=== PATIENT | female | born 1970 | race Caucasian/White ===

== ENCOUNTER 2019-02-26 17:07 | Emergency (ER) | payer SELFPAY ==
[2019-02-26 20:18] LABS: Absolute Lymphocytes (CBC) 1.2 K/uL (0.7-4.9); Absolute Monocytes 0.3 K/uL (0.1-1.3); Absolute Neutrophil 2.4 K/uL (1.8-8.0); Basophils % 0.2 % (0-1.3); Eosinophils % 0.5 % (0-4.4); Hematocrit 36.9 % (36.0-45.0); Lymphocytes % 31.1 % (15.3-44.8); Monocytes % 8.6 % (3.3-12.3); RBC Red Blood Cell Count 4.36 M/uL (3.86-4.86)
--- NOTE | 2019-02-26 20:24 | RAD REPORT ---
EXAM DESCRIPTION: CT - Head Brain Wo Cont - 02/26/2019 8:13 pm CLINICAL HISTORY: CONFUSED Headache, drowsiness COMPARISON: No comparisons TECHNIQUE: All CT scans are performed using dose optimization technique as appropriate and may inclu de automated exposure control or mA/KV adjustment according to patient size. FINDINGS: No intracranial hemorrhage, hydrocephalus or extra-axial fluid collection.No areas of brai n edema or evidence of midline shift. The paranasal sinuses and mastoids are clear. The calvarium is intact. IMPRESSION: No acute intracranial abnormality.
[2019-02-26 20:39] LABS: Protime INR 1.23
[2019-02-26 20:47] LABS: ALT/SGPT 47 U/L (12-78); AST/SGOT 73 U/L (15-37); Albumin 3.1 g/dL (3.4-5.0); Alkaline Phosphatase 105 U/L (45-117); BUN Blood Urea Nitrogen 15 mg/dL (7-18); Bicarbonate 22 mmol/L (21-32); Bilirubin Total 2.5 mg/dL (0.2-1.0); Glucose Level 81 mg/dL (74-106); Potassium 3.5 mmol/L (3.5-5.1); Protein, Total 6.6 g/dL (6.4-8.2); Sodium Level 142 mmol/L (136-145)
[2019-02-26 20:47] LABS: Barbiturates NEGATIVE (NEGATIVE); Benzodiazepines NEGATIVE (NEGATIVE); Cocaine NEGATIVE (NEGATIVE); METHAMPHETAM POSITIVE (NEGATIVE); Methadone NEGATIVE (NEGATIVE); Opiates NEGATIVE (NEGATIVE); Phencyclidine NEGATIVE (NEGATIVE); THC Cannibis NEGATIVE (NEGATIVE)
[2019-02-26 20:54] LABS: MPV 10.1 fL (7.6-11.3)
[2019-02-26] MEDS ORDERED: LACTULOSE 20 GM/30 ML UCUP ONE (21:03)
--- NOTE | 2019-02-26 21:35 | EDPHYS ---
Physician Documentation [facility] Name: Lorena Hansen Age: 48 yrs Sex: Female : 1970 Arrival Date: 02/26/2019 Time: 17:11 Bed 26 Private MD: ED Physician Reilly Arellano HPI: 02/27 06:23 This 48 yrs old Female presents to ER via Ambulatory with complaints of tw4 Lethargic. 06:23 The patient presents with decreased mental status, decreased responsiveness. Onset: The tw4 symptoms/episode began/occurred today. Possible causes: low blood sugar. Associated signs and symptoms: The patient has no apparent associated signs or symptoms. Patient's baseline: Neuro: alert and fully oriented. The patient has not experienced similar symptoms in the past. Historical: - Allergies: 02/26 17:20 No Known Allergies; sv - Home Meds: 17:20 Lactulose Oral [Active]; sv - PMHx: 17:20 Cirrhosis; sv - PSHx: 17:20 Tubal ligation; sv - Immunization history:: Adult Immunizations up to date. - Social history:: Smoking status: unknown. - Ebola Screening: : No symptoms or risks identified at this time. ROS: 02/27 06:23 Constitutional: Negative for fever, chills, and weight loss, Eyes: Negative for injury, tw4 pain, redness, and discharge, Cardiovascular: Negative for chest pain, palpitations, and edema, Respiratory: Negative for shortness of breath, cough, wheezing, and pleuritic chest pain, Abdomen/GI: Negative for abdominal pain, nausea, vomiting, diarrhea, and constipation, MS/Extremity: Negative for injury and deformity, Skin: Negative for injury, rash, and discoloration. Neuro: Positive for altered mental status, Negative for dizziness, gait disturbance, headache, hearing loss. Exam: 06:23 Constitutional: This is a well developed, well nourished patient who is awake, alert, tw4 and in no acute distress. Head/Face: Normocephalic, atraumatic. Eyes: Pupils equal round and reactive to light, extra-ocular motions intact. Lids and lashes normal. Conjunctiva and sclera are non-icteric and not injected. Cornea within normal limits. Periorbital areas with no swelling, redness, or edema. Chest/axilla: Normal chest wall appearance and motion. Nontender with no deformity. No lesions are appreciated. Cardiovascular: Regular rate and rhythm with a normal S1 and S2. No gallops, murmurs, or rubs. Normal PMI, no JVD. No pulse deficits. Respiratory: Lungs have equal breath sounds bilaterally, clear to auscultation and percussion. No rales, rhonchi or wheezes noted. No increased work of breathing, no retractions or nasal flaring. Abdomen/GI: Soft, non-tender, with normal bowel sounds. No distension or tympany. No guarding or rebound. No evidence of tenderness throughout. Back: No spinal tenderness. No costovertebral tenderness. Full range of motion. MS/ Extremity: Pulses equal, no cyanosis. Neurovascular intact. Full, normal range of motion. Neuro: Awake and alert, GCS 15, oriented to person, place, time, and situation. Cranial nerves II-XII grossly intact. Motor strength 5/5 in all extremities. Sensory grossly intact. Cerebellar exam normal. Normal gait. Vital Signs: 02/26 17:19 BP 156 / 89; Pulse 103; Resp 18; Temp 99.1; Pulse Ox 100% ; Weight 63.5 kg; Height 5 sv ft. 5 in. (165.10 cm); Pain 0/10; 18:00 BP 148 / 76; Pulse 96; Resp 16; Pulse Ox 98% ; rv 19:00 BP 136 / 88; Pulse 89; Resp 18; Pulse Ox 98% ; rv 20:00 BP 143 / 84; Pulse 99; Resp 17; Pulse Ox 99% ; rv 21:00 BP 131 / 78; Pulse 85; Resp 17; Pulse Ox 99% ; rv 17:19 Body Mass Index 23.30 (63.50 kg, 165.10 cm) sv MDM: 19:09 Patient medically screened. tw4 02/27 06:23 Differential Diagnosis: CVA, electrolyte abnormality. Data reviewed: vital signs, tw4 nurses notes. Counseling: I had a detailed discussion with the patient and/or guardian regarding: the historical points, exam findings, and any diagnostic results supporting the discharge/admit diagnosis. Special discussion: I discussed with the patient/guardian in detail that at this point there is no indication for admission to the hospital. It is understood, however, that if the symptoms persist or worsen the patient needs to return immediately for re-evaluation. 02/26 18:31 Order name: Glucose, Ancillary Testing [facility] 02/26 19:31 Order name: Acetaminophen [facility] 02/26 19:31 Order name: Basic Metabolic Panel; Complete Time: 22:01 [facility] 02/26 22:01 Interpretation: Normal except: CL 113; GFR 84. [facility] 02/26 19:31 Order name: CBC with Diff; Complete Time: 22:01 [facility] 02/26 22:01 Interpretation: Normal except: WBC 4.0; RDW 17.9. [facility] 02/26 19:31 Order name: ETOH Level; Complete Time: 22:03 [facility] 02/26 19:31 Order name: Hepatic Function; Complete Time: 22:01 [facility] 02/26 22:01 Interpretation: Normal except: AST 73; BILIT 2.5; BILID 1.0; ALB 3.1; A/G 0.9. [facility] 02/26 19:31 Order name: PT-INR; Complete Time: 22:01 [facility] 02/26 22:01 Interpretation: Normal except: PT 14.4. [facility] 02/26 19:31 Order name: Ptt, Activated; Complete Time: 22:02 [facility] 02/26 22:02 Interpretation: Normal except: PTT 23.2. [facility] 02/26 19:31 Order name: Salicylate; Complete Time: 22:02 [facility] 02/26 22:02 Interpretation: Within normal limits: MARK < 1.7. [facility] 02/26 19:31 Order name: Urine Drug Screen; Complete Time: 22:02 [facility] 02/26 22:02 Interpretation: Normal except: METHAMPHETAMINE POSITIVE. [facility] 02/26 19:32 Order name: CT Head Brain wo Cont; Complete Time: 22:03 [facility] 02/26 19:38 Order name: AMMONIA; Complete Time: 20:45 [facility] 02/26 21:50 Order name: CBC Smear Scan [facility] 02/26 19:31 Order name: EKG; Complete Time: 19:33 [facility] 02/26 19:31 Order name: EKG - Nurse/Tech; Complete Time: 20:46 [facility] 02/26 19:31 Order name: IV Saline Lock; Complete Time: 20:46 [facility] 02/26 19:31 Order name: Labs collected and sent; Complete Time: 20:46 [facility] 02/26 19:31 Order name: Urine Dipstick-Ancillary (obtain specimen); Complete Time: 20:47 tw4 Administered Medications: 02/26 21:00 Drug: Lactulose 30 grams Volume: 45 ml; Route: PO; rv Disposition: 02/26/19 21:35 Discharged to Home. Impression: HYPERAMMONEMIA, Thrombocytopenia, unspecified. - Condition is Stable. - Discharge Instructions: Thrombocytopenia, Primary Biliary Cirrhosis. - Prescriptions for Lactulose 10 gram/15 mL Oral Solution - take 30 milliliter by ORAL route once daily; 300 milliliter. - Medication Reconciliation Form, Thank You Letter, Antibiotic Education, Prescription Opioid Use form. - Follow up: Private Physician; When: Upon discharge from the Emergency Department; Reason: If symptoms return, Recheck today's complaints, Continuance of care. Follow up: Seven Emmanuel MD; When: Upon discharge from the Emergency Department; Reason: If symptoms return, Recheck today's complaints, Continuance of care. - Problem is new. - Symptoms have improved. Signatures: Dispatcher [employer] EDCarli Valentin RN RN Reilly Arellano MD MD 4 Meng Petit RN RN rv Corrections: (The following items were deleted from the chart) 21:36 21:35 02/26/2019 21:35 Discharged to Home. Impression: HYPERAMMONEMIA. Condition is tw4 Stable. Forms are Medication Reconciliation Form, Thank You Letter, Antibiotic Education, Prescription Opioid Use. Follow up: Private Physician; When: Upon discharge from the Emergency Department; Reason: If symptoms return, Recheck today's complaints, Continuance of care. Problem is new. Symptoms have improved. [facility] 22:04 21:36 02/26/2019 21:35 Discharged to Home. Impression: HYPERAMMONEMIA. Condition is tw4 Stable. Discharge Instructions: Primary Biliary Cirrhosis. Prescriptions for Lactulose 10 gram/15 mL Oral Solution - take 30 milliliter by ORAL route once daily; 300 milliliter. and Forms are Medication Reconciliation Form, Thank You Letter, Antibiotic Education, Prescription Opioid Use. Follow up: Private Physician; When: Upon discharge from the Emergency Department; Reason: If symptoms return, Recheck today's complaints, Continuance of care. Follow up: Seven Emmanuel; When: Upon discharge from the Emergency Department; Reason: If symptoms return, Recheck today's complaints, Continuance of care. Problem is new. Symptoms have improved. tw4 22:14 22:04 02/26/2019 21:35 Discharged to Home. Impression: HYPERAMMONEMIA; rv Thrombocytopenia, unspecified. Condition is Stable. Discharge Instructions: Primary Biliary Cirrhosis. Prescriptions for Lactulose 10 gram/15 mL Oral Solution - take 30 milliliter by ORAL route once daily; 300 milliliter. and Forms are Medication Reconciliation Form, Thank You Letter, Antibiotic Education, Prescription Opioid Use. Follow up: Private Physician; When: Upon discharge from the Emergency Department; Reason: If symptoms return, Recheck today's complaints, Continuance of care. Follow up: Seven Emmanuel; When: Upon discharge from the Emergency Department; Reason: If symptoms return, Recheck today's complaints, Continuance of care. Problem is new. Symptoms have improved. tw4
--- NOTE | 2019-02-26 21:35 | ER ---
Nurse's Notes [facility] Name: Lorena Hansen Age: 48 yrs Sex: Female : 1970 Arrival Date: 02/26/2019 Time: 17:11 Bed 26 Private MD: Diagnosis: HYPERAMMONEMIA;Thrombocytopenia, unspecified Presentation: 02/26 17:17 Presenting complaint: Patient states: confusion started 2 days ago, has hx of liver sv problems. Denies any alcohol intake. Reports she has been out of her lactulose. Transition of care: patient was not received from another setting of care. Onset of symptoms was February 24, 2019. Initial Sepsis Screen: Does the patient meet any 2 criteria? No. Patient's initial sepsis screen is negative. Does the patient have a suspected source of infection? No. Patient's initial sepsis screen is negative. Care prior to arrival: None. 17:17 Method Of Arrival: Ambulatory sv 17:17 Acuity: SUDHA 2 sv 20:33 Risk Assessment: Do you want to hurt yourself or someone else? Patient reports no rv desire to harm self or others. Triage Assessment: 17:17 General: Appears in no apparent distress. comfortable, well developed, Behavior is sv calm, cooperative, appropriate for age. Pain: Denies pain. Neuro: Level of Consciousness is awake, alert, obeys commands, Oriented to person, place, time, situation, Moves all extremities. Full function Gait is steady, Speech is normal. Respiratory: Airway is patent Respiratory effort is even, unlabored, Respiratory pattern is regular, symmetrical. Derm: Skin is normal. Historical: - Allergies: 17:20 No Known Allergies; sv - Home Meds: 17:20 Lactulose Oral [Active]; sv - PMHx: 17:20 Cirrhosis; sv - PSHx: 17:20 Tubal ligation; sv - Immunization history:: Adult Immunizations up to date. - Social history:: Smoking status: unknown. - Ebola Screening: : No symptoms or risks identified at this time. Screenin:32 Abuse screen: Denies threats or abuse. Denies injuries from another. Nutritional rv screening: No deficits noted. Tuberculosis screening: No symptoms or risk factors identified. Fall Risk None identified. Assessment: 18:35 General: Appears in no apparent distress. comfortable, Behavior is calm, cooperative. rv Pain: Denies pain. Neuro: Level of Consciousness is awake, alert, obeys commands, Oriented to person, place, time, Reports disorientation and lethargy last night.. Cardiovascular: Capillary refill < 3 seconds. Respiratory: Airway is patent. GI: No signs and/or symptoms were reported involving the gastrointestinal system. : No signs and/or symptoms were reported regarding the genitourinary system. EENT: No signs and/or symptoms were reported regarding the EENT system. Derm: Skin is intact. Musculoskeletal: No signs and/or symptoms reported regarding the musculoskeletal system. 21:52 Reassessment: CRITICAL LAB RESULT: Platelet 50,000. Notified Provide and Primary Nurse. ca1 22:10 Reassessment: CRITICAL LAB RESULT EXPLAINED TO PATIENT AND INSTRUCTED TO FF UP WITH HER rv DOCTOR. DISCHARGED WITHOUT SIGNS OF ACTIVE BLEEDING. Vital Signs: 17:19 BP 156 / 89; Pulse 103; Resp 18; Temp 99.1; Pulse Ox 100% ; Weight 63.5 kg; Height 5 sv ft. 5 in. (165.10 cm); Pain 0/10; 18:00 BP 148 / 76; Pulse 96; Resp 16; Pulse Ox 98% ; rv 19:00 BP 136 / 88; Pulse 89; Resp 18; Pulse Ox 98% ; rv 20:00 BP 143 / 84; Pulse 99; Resp 17; Pulse Ox 99% ; rv 21:00 BP 131 / 78; Pulse 85; Resp 17; Pulse Ox 99% ; rv 17:19 Body Mass Index 23.30 (63.50 kg, 165.10 cm) sv ED Course: 17:11 Patient arrived in ED. mr 17:19 Triage completed. sv 17:20 Arm band placed on. sv 18:00 Meng Petit, RN is Primary Nurse. rv 18:06 Patient's name was called from ER lobby. No response. bb 19:09 Reilly Arellano MD is Attending Physician. tw4 20:05 Inserted saline lock: 22 gauge in right antecubital area, using aseptic technique. rv Blood collected. 20:13 CT Head Brain wo Cont In Process Unspecified. EDMS 20:32 Patient has correct armband on for positive identification. Bed in low position. Call rv light in reach. Side rails up X 1. Adult w/ patient. Pulse ox on. NIBP on. 21:36 Seven Emmanuel MD is Referral Physician. tw4 22:13 No provider procedures requiring assistance completed. IV discontinued, intact, rv bleeding controlled, No redness/swelling at site. Pressure dressing applied. Administered Medications: 21:00 Drug: Lactulose 30 grams Volume: 45 ml; Route: PO; rv Outcome: 21:35 Discharge ordered by . tw4 22:13 Discharged to home ambulatory. rv 22:13 Condition: good 22:13 Discharge instructions given to patient, family, Instructed on discharge instructions, follow up and referral plans. medication usage, Demonstrated understanding of instructions, follow-up care, medications, Prescriptions given X 1. 22:14 Patient left the ED. rv Signatures: Dispatcher [employer] EDMS Carli Kay RN RN sv Diane Matos mr Vivi Hedrick RN Reilly Linares MD MD tw4 Meng Petit RN RN rv Black, Lisa RN RN ca1 Corrections: (The following items were deleted from the chart) 17:20 17:17 Presenting complaint: Patient states: confusion started 2 days ago, has hx of sv liver problems. Denies any alcohol intake. sv 17:21 17:17 Acuity: SUDHA 3 sv sv
[2019-02-26 21:56] LABS: Blood Morphology Comment NOT SEEN (NOT SEEN); Platelet Estimate DECR
--- NOTE | 2019-02-27 07:56 | EKG ---
Test Date: 2019-02-26 Test Time: 20:52:22 Storage Specialist: PADMA MEASUREMENT RESULTS: Intervals: Rate: 76 NM: 98 QRSD: 76 QT: 414 QTc: 465 Peculiar: P: 68 NM: 98 QRS: 71 T: 80 INTERPRETIVE STATEMENTS: Sinus rhythm with short NM Prolonged QT Abnormal ECG No previous ECG available for comparison Electronically Signed On 02-27-19 07:55:05 CDT by Hood Campbell
== END 2019-02-26 22:14 | disposition home or self-care (01) ==
LOC: ER 17:07
DX: E72.20 Disorder of urea cycle metabolism, unspecified (principal); D69.6 Thrombocytopenia, unspecified
CPT/HCPCS: 36415; 70450; 80048; 80076; 80307; 80320; 80329; 82140; 82962; 85025; 85610; 85730; 93005; 99284

== ENCOUNTER 2019-04-29 16:01 | Emergency (ER) | payer SELFPAY ==
--- OUTSIDE RECORDS SUMMARY | 2019-04-29 16:11 | XMS REPORT ---
:1970 [facility] [address] [place] [address] Dr. Rodrigez [address] [place] [id number] Care Team Providers Name Role Phone Unavailable Unavailable Unavailable Problems This patient has no known problems. Allergies, Adverse Reactions, Alerts This patient has no known allergies or adverse reactions. Medications This patient has no known medications.
[2019-04-29] MEDS ORDERED: predniSONE 20 MG TAB ONE (16:48)
[2019-04-29] MEDS ORDERED: CETIRIZINE HCL 5 MG TABLET ONE (16:48)
[2019-04-29] MEDS ORDERED: FAMOTIDINE 20 MG TAB ONE (16:49)
--- NOTE | 2019-04-29 17:25 | ER ---
Nurse's Notes [facility] Name: Lorena Hansen Age: 49 yrs Sex: Female : 1970 Arrival Date: 04/29/2019 Time: 16:01 Bed 13 Private MD: Diagnosis: Acute laryngopharyngitis;Allergy, unspecified Presentation: 04/29 16:06 Presenting complaint: Patient states: I have had a sore throat and felt hot the last la1 couple days. Transition of care: patient was not received from another setting of care. Onset of symptoms was April 29, 2019. Risk Assessment: Do you want to hurt yourself or someone else? Patient reports no desire to harm self or others. Risk Assessment: Do you want to hurt yourself or someone else?. Initial Sepsis Screen: Does the patient meet any 2 criteria? No. Patient's initial sepsis screen is negative. Does the patient have a suspected source of infection? No. Patient's initial sepsis screen is negative. Care prior to arrival: None. 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 - Social history:: Smoking status: Patient uses tobacco products, smokes one-half pack cigarettes per day. - Ebola Screening: : No symptoms or risks identified at this time. Screenin:10 Abuse screen: Denies threats or abuse. Nutritional screening: No deficits noted. rb1 Tuberculosis screening: No symptoms or risk factors identified. Fall Risk None identified. Assessment: 16:10 General: Appears uncomfortable, Behavior is calm, cooperative, Reports fever for. rb1 General: Pt. was at the voodoo while they were mowing the lawn a couple days ago, she isn't sure if that has anything to do with it. She also had a clip applied to her throat for bleeding two years ago, she is afraid it could have something to do with that as well.. Pain: Complains of pain in throat Pain currently is 8 out of 10 on a pain scale. Pain began couple days. Neuro: Level of Consciousness is awake, alert, obeys commands, Oriented to person, place, time, situation. Cardiovascular: Capillary refill < 3 seconds is brisk in bilateral fingers. Respiratory: Airway is patent Respiratory effort is even, unlabored, Respiratory pattern is regular, symmetrical, Breath sounds are clear bilaterally. GI: No signs and/or symptoms were reported involving the gastrointestinal system. : No signs and/or symptoms were reported regarding the genitourinary system. EENT: Throat is reddened Reports pain when swallowing. Derm: Rash noted that is red, raised, on Face. Musculoskeletal: Range of motion: intact in all extremities. 17:05 Reassessment: Patient appears in no apparent distress at this time. No changes from rb1 previously documented assessment. Vital Signs: 16:07 BP 141 / 79; Pulse 98; Resp 16; Temp 97.8; Pulse Ox 98% on R/A; Weight 68.04 kg; Height la1 5 ft. 4 in. (162.56 cm); 17:07 BP 154 / 96; Pulse 82; Resp 19; Pulse Ox 100% on R/A; Pain 5/10; rb1 16:07 Body Mass Index 25.75 (68.04 kg, 162.56 cm) la1 17:07 Pt. was up walking around rb1 ED Course: 16:01 Patient arrived in ED. as 16:02 Kala Pizarro FNP-C [facility]. snw 16:02 Geraldo Yates MD is Attending Physician. snw 16:06 Triage completed. la1 16:07 Arm band placed on right wrist. la1 16:10 Patient has correct armband on for positive identification. Bed in low position. Call rb1 light in reach. Side rails up X 1. Pulse ox on. NIBP on. 16:13 Kirsten Adame, RN is Primary Nurse. rb1 17:43 No provider procedures requiring assistance completed. Patient did not have IV access rb1 during this emergency room visit. Administered Medications: 16:35 Drug: Pepcid 20 mg Route: PO; rb1 17:05 Follow up: Response: No adverse reaction rb1 16:35 Drug: predniSONE 40 mg Route: PO; rb1 17:05 Follow up: Response: No adverse reaction rb1 16:35 Drug: ZyrTEC - Cetirizine 10 mg Route: PO; rb1 17:05 Follow up: Response: No adverse reaction rb1 Outcome: 17:23 Discharge ordered by MD. cash 17:43 Discharged to home ambulatory, with significant other. rb1 17:43 Condition: stable 17:43 Discharge instructions given to patient, Instructed on discharge instructions, follow up and referral plans. medication usage, Demonstrated understanding of instructions, follow-up care, medications, Prescriptions given X 3. 17:43 Patient left the ED. rb1 Signatures: Kala Pizarro, LOAN PROCESSING SUPERVISOR-C LOAN PROCESSING SUPERVISOR-Csnw Sabrina Bruno Lee RN RN la1 Kirsten Adame RN RN rb1 Corrections: (The following items were deleted from the chart) 16:07 16:06 Acuity: SUDHA 4 la1 la1 17:29 16:10 Respiratory: Airway is patent Respiratory effort is even, unlabored, Respiratory rb1 pattern is regular, symmetrical, rb1 17:30 17:07 BP 154 / 96; Pulse 82bpm; Resp 19bpm; Pulse Ox 100% RA; Pain 5/10; rb1 rb1
--- NOTE | 2019-04-29 17:25 | EDPHYS ---
Physician Documentation [facility] Name: Lorena Hansen Age: 49 yrs Sex: Female : 1970 Arrival Date: 04/29/2019 Time: 16:01 Bed 13 Private MD: ED Physician Geraldo Yates HPI: 04/29 16:34 This 49 yrs old Female presents to ER via Ambulatory with complaints of Sore snw Throat. 16:34 The patient presents with sore throat. The patient describes throat pain as raw, snw scratchy. Onset: The symptoms/episode began/occurred suddenly, yesterday. Severity of symptoms: At their worst the symptoms were moderate. Modifying factors: the symptoms are aggravated by swallowing. Associated signs and symptoms: Pertinent positives: swelling, rash. The patient has not experienced similar symptoms in the past. The patient has not recently seen a physician. neighbor was mowing and exposed to poison nohelia. 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 - Social history:: Smoking status: Patient uses tobacco products, smokes one-half pack cigarettes per day. - Ebola Screening: : No symptoms or risks identified at this time. ROS: 16:26 Cardiovascular: Negative for chest pain, palpitations, and edema, Respiratory: Negative snw for shortness of breath, cough, wheezing, and pleuritic chest pain, Abdomen/GI: Negative for abdominal pain, nausea, vomiting, diarrhea, and constipation, Back: Negative for injury and pain, : Negative for injury, bleeding, discharge, and swelling, MS/Extremity: Negative for injury and deformity, Skin: Negative for injury and discoloration, pt states she looks like she has acne and has never had that before Neuro: Negative for headache, weakness, numbness, tingling, and seizure. 16:26 Constitutional: Positive for fatigue, malaise. 16:26 Eyes: Positive for swelling. 16:26 ENT: Positive for hoarseness, sinus congestion. 16:26 Neck: Positive for swelling, swollen nodes. Exam: 16:25 Constitutional: This is a well developed, well nourished patient who is awake, alert, snw and in no acute distress. Eyes: Pupils equal round and reactive to light, extra-ocular motions intact. Lids and lashes normal. Conjunctiva and sclera are non-icteric and not injected. Cornea within normal limits. Periorbital areas with no swelling, redness, or edema. Neck: Trachea midline, no thyromegaly or masses palpated, and no cervical lymphadenopathy. Supple, full range of motion without nuchal rigidity, or vertebral point tenderness. No Meningismus. Chest/axilla: Normal chest wall appearance and motion. Nontender with no deformity. No lesions are appreciated. Cardiovascular: Regular rate and rhythm with a normal S1 and S2. No gallops, murmurs, or rubs. Normal PMI, no JVD. No pulse deficits. Respiratory: Lungs have equal breath sounds bilaterally, clear to auscultation and percussion. No rales, rhonchi or wheezes noted. No increased work of breathing, no retractions or nasal flaring. Abdomen/GI: Soft, non-tender, with normal bowel sounds. No distension or tympany. No guarding or rebound. No evidence of tenderness throughout. Back: No spinal tenderness. No costovertebral tenderness. Full range of motion. Skin: Warm, dry with normal turgor. Normal color with no rashes, no lesions, and no evidence of cellulitis. MS/ Extremity: Pulses equal, no cyanosis. Neurovascular intact. Full, normal range of motion. Neuro: Awake and alert, GCS 15, oriented to person, place, time, and situation. Cranial nerves II-XII grossly intact. Motor strength 5/5 in all extremities. Sensory grossly intact. Cerebellar exam normal. Normal gait. Psych: Awake, alert, with orientation to person, place and time. Behavior, mood, and affect are within normal limits. 16:25 Head/face: Noted is rash, of the right cheek and left cheek, swelling. 16:25 ENT: External ear(s): are unremarkable, Ear canal(s): are normal, TM's: are normal, Nose: is normal, Mouth: Oral mucosa: normal, Posterior pharynx: swelling, is not appreciated, erythema, that is mild, Dental exam: normal, Voice: is hoarse. Vital Signs: 16:07 BP 141 / 79; Pulse 98; Resp 16; Temp 97.8; Pulse Ox 98% on R/A; Weight 68.04 kg; Height la1 5 ft. 4 in. (162.56 cm); 17:07 BP 154 / 96; Pulse 82; Resp 19; Pulse Ox 100% on R/A; Pain 5/10; rb1 16:07 Body Mass Index 25.75 (68.04 kg, 162.56 cm) la1 17:07 Pt. was up walking around rb1 MDM: 16:20 Patient medically screened. snw 17:24 Data reviewed: vital signs, nurses notes. Data interpreted: Pulse oximetry: on room air snw is 98 %. Interpretation: normal. Counseling: I had a detailed discussion with the patient and/or guardian regarding: the historical points, exam findings, and any diagnostic results supporting the discharge/admit diagnosis, the presence of at least one elevated blood pressure reading (>120/80) during this emergency department visit, lab results, the need for outpatient follow up, to return to the emergency department if symptoms worsen or persist or if there are any questions or concerns that arise at home. Special discussion: I have referred the patient to see his PCP for further evaluation of high blood pressure. Based on the history and exam findings, there is no indication for further emergent testing or inpatient evaluation. 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 I discussed with the patient/guardian the need to see the primary care provider for further evaluation of the symptoms. 04/29 16:06 Order name: Strep la1 04/29 17:26 Order name: Throat Culture EDMS Administered Medications: 16:35 Drug: Pepcid 20 mg Route: PO; rb1 17:05 Follow up: Response: No adverse reaction rb1 16:35 Drug: predniSONE 40 mg Route: PO; rb1 17:05 Follow up: Response: No adverse reaction rb1 16:35 Drug: ZyrTEC - Cetirizine 10 mg Route: PO; rb1 17:05 Follow up: Response: No adverse reaction rb1 Disposition: 17:44 Co-signature as Attending Physician, Geraldo Yates MD. rn Disposition: 04/29/19 17:23 Discharged to Home. Impression: Acute laryngopharyngitis, Allergy, unspecified. - Condition is Stable. - Discharge Instructions: Allergies, Adult, Laryngitis, Pharyngitis. - Prescriptions for Prednisone 20 mg Oral Tablet - take 1 tablet by ORAL route once daily for 3 days; 3 tablet. Zyrtec 10 mg Oral Tablet - take 1 tablet by ORAL route once daily As needed; 20 tablet. Pepcid 20 mg Oral Tablet - take 1 tablet by ORAL route once daily; 20 tablet. - Medication Reconciliation Form, Thank You Letter, Antibiotic Education, Prescription Opioid Use form. - Follow up: Private Physician; When: 2 - 3 days; Reason: Recheck today's complaints, Continuance of care, Re-evaluation by your physician. Follow up: Emergency Department; When: As needed; Reason: Trouble breathing, Worsening of condition. Signatures: Dispatcher [employer] EDMS Kala Pizarro, [facility]-Csnw Geraldo Yates MD MD rn Attema, Lee, RN RN la1 Kirsten Adame RN RN rb1 Corrections: (The following items were deleted from the chart) 17:43 17:23 04/29/2019 17:23 Discharged to Home. Impression: Acute laryngopharyngitis; rb1 Allergy, unspecified. Condition is Stable. Discharge Instructions: Allergies, Adult, Laryngitis, Pharyngitis. Prescriptions for Prednisone 20 mg Oral Tablet - take 1 tablet by ORAL route once daily for 3 days; 3 tablet, Zyrtec 10 mg Oral Tablet - take 1 tablet by ORAL route once daily As needed; 20 tablet, Pepcid 20 mg Oral Tablet - take 1 tablet by ORAL route once daily; 20 tablet. and Forms are Medication Reconciliation Form, Thank You Letter, Antibiotic Education, Prescription Opioid Use. Follow up: Private Physician; When: 2 - 3 days; Reason: Recheck today's complaints, Continuance of care, Re-evaluation by your physician. Follow up: Emergency Department; When: As needed; Reason: Trouble breathing, Worsening of condition. snw
== END 2019-04-29 17:43 | disposition home or self-care (01) ==
LOC: ER 16:01
DX: J06.0 Acute laryngopharyngitis (principal); T78.40XA Allergy, unspecified, initial encounter; F17.210 Nicotine dependence, cigarettes, uncomplicated
CPT/HCPCS: 87070; 87081; 99283; J7512

== ENCOUNTER 2020-06-14 16:02 | Inpatient (IN) | payer SELFPAY ==
--- OUTSIDE RECORDS SUMMARY | 2020-06-14 16:04 | XMS REPORT | Continuity of Care Document ---
:1970 Author Organization [facility] t Address [address] [place] [address] Care Team Providers Name Role Phone Doctor Unassigned, Name Attending Clinician Unavailable Carito Nair Attending Clinician Problems This patient has no known problems. Allergies, Adverse Reactions, Alerts This patient has no known allergies or adverse reactions. Medications This patient has no known medications. Procedures This patient has no known procedures. Encounters Start End Encounter Admission Attending Care Care Encounter Source Date/Time Date/Time Type Type Clinicians Facility Department ID 2019-06-11 2019-06-11 Orders Doctor NARENDRA [id number] 00:00:00 00:00:00 Only UnassignedSTAR [id number] [place] [facility] [id number] 2019-05-11 2019-05-11 Emergency KAMRAN Henry [id number] 10:42:22 12:29:00 Marianne Means [id number] [place] [id number] [place] [id number] Results This patient has no known results.
[2020-06-14] MEDS ORDERED: LORazepam 2 MG/ML VIAL ONE (16:33)
[2020-06-14 16:41] LABS: Absolute Lymphocytes (CBC) 1.6 K/uL (0.7-4.9); Basophils % 0.7 % (0-1.3); Hematocrit 42.3 % (36.0-45.0); Lymphocytes % 33.8 % (15.3-44.8); MPV 10.5 fL (7.6-11.3); RBC Red Blood Cell Count 4.98 M/uL (3.86-4.86)
[2020-06-14 16:51] LABS: Barbiturates NEGATIVE (NEGATIVE); Benzodiazepines NEGATIVE (NEGATIVE); Cocaine NEGATIVE (NEGATIVE); METHAMPHETAM POSITIVE (NEGATIVE); Methadone NEGATIVE (NEGATIVE); Opiates NEGATIVE (NEGATIVE); Phencyclidine NEGATIVE (NEGATIVE); THC Cannibis NEGATIVE (NEGATIVE)
[2020-06-14] MEDS ORDERED: NA CHLORIDE 0.9% 1,000 ML ONE (16:58)
[2020-06-14 17:00] LABS: Urine Blood 2+ (NEG); Urine Glucose NEGATIVE (NEG); Urine Protein NEGATIVE (NEG); Urine pH 8.5 (5.0-7.0)
[2020-06-14 17:23] LABS: Protime INR 1.27
[2020-06-14 17:38] LABS: ALT/SGPT 91 U/L (12-78); Albumin 2.2 g/dL (3.4-5.0); Alkaline Phosphatase 96 U/L (45-117); BUN Blood Urea Nitrogen 11 mg/dL (7-18); Bicarbonate 23 mmol/L (21-32); Bilirubin Total 2.7 mg/dL (0.2-1.0); Glucose Level 71 mg/dL (74-106); Protein, Total 5.8 g/dL (6.4-8.2); Sodium Level 145 mmol/L (136-145)
[2020-06-14 17:39] LABS: AST/SGOT 141 U/L (15-37); Potassium 3.9 mmol/L (3.5-5.1)
[2020-06-14] MEDS ORDERED: LACTULOSE 20 GM/30 ML UCUP ONE (17:45)
[2020-06-14] MEDS ORDERED: ONDANSETRON 4 MG/2 ML VIAL IV PRN (17:52)
[2020-06-14] MEDS ORDERED: ACETAMINOPHEN 500 MG TAB PO PRN (17:52)
[2020-06-14] MEDS ORDERED: LACTULOSE 20 GM/30 ML UCUP PO PRN (18:00)
[2020-06-14] MEDS ORDERED: SODIUM CHLORIDE 0.9% 10ML INJ IV PRN (18:02)
[2020-06-14 18:54] LABS: Blood Morphology Comment NOT SEEN (NOT SEEN); Platelet Estimate DECR; Urine White Blood Cell Casts OK
--- NOTE | 2020-06-14 20:13 | ER ---
Nurse's Notes [facility] Name: Lorena Hansen Age: 50 yrs Sex: Female : 1970 Arrival Date: 06/14/2020 Time: 16:18 Bed 3 Private MD: Diagnosis: Altered mental status, unspecified;Encephalopathy, unspecified-hepatic Presentation: 06/14 16:15 Chief complaint: EMS states: Toned out for unresponsive, hx of colon CA and cirrhosis, hb takes lactulose but had not had any since yesterday. VSS, BGL 98, obtunded, becomes violent and screams when touched. Coronavirus screen: At this time, the client does not indicate any symptoms associated with coronavirus-19. Ebola Screen: No symptoms or risks identified at this time. Initial Sepsis Screen: Does the patient meet any 2 criteria? Altered Mental Status. HR > 90 bpm. Yes Does the patient have a suspected source of infection? No. Patient's initial sepsis screen is negative. Risk Assessment: Do you want to hurt yourself or someone else? Patient reports no desire to harm self or others. Onset of symptoms was June 14, 2020. 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 - Social history:: Patient/guardian denies using alcohol, street drugs, The patient lives with family, Smoking status: unknown. - Family history:: not pertinent. Screenin:23 Abuse screen: Denies threats or abuse. Denies injuries from another. Nutritional hb screening: No deficits noted. Tuberculosis screening: No symptoms or risk factors identified. Fall Risk Total Carr Fall Scale indicates High Risk Score (45 or more points). Fall prevention measures have been instituted. Side Rails Up X 2 Frequent Obs/Assessments Occuring As available patient and family educated on Fall Prevention Program and Strategies. Assessment: 16:17 General: Appears unkempt, Behavior is agitated, combative, Smells of urine. Pain: hb Unable to use pain scale. FLACC scale score is 0 out of 10. Neuro: Level of Consciousness is confused, obtunded. Cardiovascular: Capillary refill < 3 seconds Patient's skin is warm and dry. Rhythm is sinus tachycardia. Respiratory: Airway is patent Respiratory effort is even, unlabored, Respiratory pattern is regular, symmetrical, Breath sounds are clear bilaterally. GI: Abdomen is non-distended, Abd is soft. : No signs and/or symptoms were reported regarding the genitourinary system. EENT: No signs and/or symptoms were reported regarding the EENT system. Derm: Skin is pink, warm \T\ dry. Musculoskeletal: No deficits noted. 17:00 Reassessment: No changes from previously documented assessment. Patient and/or family hb updated on plan of care and expected duration. Pain level reassessed. 17:50 Reassessment: No changes from previously documented assessment. Patient and/or family hb updated on plan of care and expected duration. Pain level reassessed. 18:28 Reassessment: Patient appears in no apparent distress at this time. No changes from hb previously documented assessment. Patient and/or family updated on plan of care and expected duration. Pain level reassessed. 19:34 Reassessment: patient is asleep. + BM, patient cleaned and replaced bedsheet. covid rv swab done. Vital Signs: 16:15 BP 173 / 93; Pulse 93; Resp 14; Temp 14; Pulse Ox 100% on R/A; hb 17:07 BP 169 / 113; Pulse 105; Resp 16; Temp 98.2; Pulse Ox 100% ; hb 17:50 BP 168 / 102; Pulse 102; Resp 17; Pulse Ox 100% on R/A; hb 18:28 BP 141 / 93; Pulse 104; Resp 17; Pulse Ox 100% ; hb 19:36 BP 151 / 101; Pulse 96; Resp 15; Pulse Ox 100% on R/A; rv [place] Coma Score: 19:36 Eye Response: to pain(2). Verbal Response: inappropriate words(3). Motor Response: rv localizes pain(5). Total: 10. ED Course: 16:18 Patient arrived in ED. ss 16:18 Edin Bolden MD is Attending Physician. ma2 16:25 Inserted saline lock: 20 gauge in right hand, using aseptic technique. ,using aseptic sv technique. done by Radha MCINTOSH Blood collected. Flushed right hand with 5 ml normal saline. 16:32 Triage completed. hb 16:39 Arm band placed on. hb 16:39 Patient has correct armband on for positive identification. Placed in gown. Bed in low sv position. Call light in reach. Side rails up X2. monitor tech on. Pulse ox on. NIBP on. Door closed. Warm blanket given. Head of bed elevated. 16:46 EKG done, by ED staff, reviewed by Edin Bolden MD. 3 17:49 Helena Muir, RN is Primary Nurse. hb 17:52 Ed Chu MD is Hospitalizing Provider. ma2 19:08 Report given to Facundo MCINTOSH and Romel MCINTOSH. sv 19:38 Pt swabbed for COVID-19. jp3 19:45 No provider procedures requiring assistance completed. IV is patent, with fluids rv infusing freely, with good blood return, Patient admitted, IV remains in place. Administered Medications: 16:29 Drug: Ativan 2 mg Route: IVP; Site: right hand; hb 16:50 Follow up: Response: No adverse reaction hb 17:02 Drug: NS 0.9% 1000 ml Route: IV; Rate: 1 bolus; Site: right hand; hb 18:00 Follow up: Response: No adverse reaction; IV Status: Completed infusion; IV Intake: sv 1000ml 18:01 Drug: Lactulose 200 grams Route: TN; hb 18:54 Follow up: Response: No adverse reaction hb Intake: 18:00 IV: 1000ml; Total: 1000ml. sv Output: 19:36 Urine: 500ml (Henry); Total: 500ml. rv Outcome: 17:52 Decision to Hospitalize by Provider. ma2 19:45 Admitted to Med/surg accompanied by tech, via stretcher, room 212, with chart, Report rv called to ALTON MCINTOSH 19:45 Condition: stable 20:12 Patient left the ED. rv Signatures: Carli Kay RN RN sv Smirch, Shelby, RN RN Helena Muir RN RN Kyleigh Marquez [facility] Edin Bolden MD MD [facility] Meng Petit RN RN rv Antoine Cary jp3 Corrections: (The following items were deleted from the chart) 16:33 16:15 Pulse 93bpm; Pulse Ox 100% RA; Temp 14F; hb hb 18:29 17:07 BP 169 / 113; Pulse 105bpm; Resp 16bpm; Pulse Ox 100%; sv hb
--- NOTE | 2020-06-14 20:13 | EDPHYS ---
Physician Documentation [facility] Name: Lorena Hansen Age: 50 yrs Sex: Female : 1970 Arrival Date: 06/14/2020 Time: 16:18 Bed 3 Private MD: ED Physician Edin Bolden HPI: 06/14 16:32 This 50 yrs old Female presents to ER via EMS with complaints of Altered ma2 Mental Status. 16:32 The patient presents with confusion, decreased mental status. Onset: The ma2 symptoms/episode began/occurred gradually, 3 day(s) ago. Associated signs and symptoms: Pertinent negatives: chest pain, confusion. Current symptoms: In the emergency department the patient's symptoms are unchanged from the initial presentation. The patient has experienced similar episodes in the past. liver cancer and cirrhosis here with ams, not taking lactulose . 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 - Social history:: Patient/guardian denies using alcohol, street drugs, The patient lives with family, Smoking status: unknown. - Family history:: not pertinent. ROS: 16:32 Constitutional: Negative for fever, chills, and weight loss. ma2 16:32 All other systems are negative. Exam: 16:32 Constitutional: This is a well developed, well nourished patient she is samnolant and ma2 arousable to verbal stimulus Chest/axilla: Normal chest wall appearance and motion. Nontender with no deformity. No lesions are appreciated. Cardiovascular: Regular rate and rhythm with a normal S1 and S2. No gallops, murmurs, or rubs. Normal PMI, no JVD. No pulse deficits. Respiratory: Lungs have equal breath sounds bilaterally, clear to auscultation and percussion. No rales, rhonchi or wheezes noted. No increased work of breathing, no retractions or nasal flaring. Abdomen/GI: Soft, non-tender, with normal bowel sounds. No distension or tympany. No guarding or rebound. No evidence of tenderness throughout. Back: No spinal tenderness. No costovertebral tenderness. Full range of motion. Skin: Warm, dry with normal turgor. Normal color with no rashes, no lesions, and no evidence of cellulitis. MS/ Extremity: Pulses equal, no cyanosis. Neurovascular intact. Full, normal range of motion. Neuro: Awake and alert, GCS 15, oriented to person, place, time, and situation. Cranial nerves II-XII grossly intact. Motor strength 5/5 in all extremities. Sensory grossly intact. Cerebellar exam normal. Normal gait. Vital Signs: 16:15 BP 173 / 93; Pulse 93; Resp 14; Temp 14; Pulse Ox 100% on R/A; hb 17:07 BP 169 / 113; Pulse 105; Resp 16; Temp 98.2; Pulse Ox 100% ; hb 17:50 BP 168 / 102; Pulse 102; Resp 17; Pulse Ox 100% on R/A; hb 18:28 BP 141 / 93; Pulse 104; Resp 17; Pulse Ox 100% ; hb 19:36 BP 151 / 101; Pulse 96; Resp 15; Pulse Ox 100% on R/A; rv [place] Coma Score: 19:36 Eye Response: to pain(2). Verbal Response: inappropriate words(3). Motor Response: rv localizes pain(5). Total: 10. MDM: 16:18 Patient medically screened. [facility] 16:32 Differential Diagnosis: electrolyte abnormality, alcohol intoxication, volume ma2 depletion, hepatic encephalopathy . 17:51 Data reviewed: vital signs, nurses notes. Counseling: I had a detailed discussion with ma the patient and/or guardian regarding: the historical points, exam findings, and any diagnostic results supporting the discharge/admit diagnosis, the presence of at least one elevated blood pressure reading (>120/80) during this emergency department visit, the need for further work-up and treatment in the hospital. Response to treatment: the patient's symptoms have markedly improved after treatment. 06/14 16:20 Order name: Acetaminophen; Complete Time: 17:48 nd2 06/14 16:20 Order name: Basic Metabolic Panel; Complete Time: 17:48 nd2 06/14 16:20 Order name: CBC with Diff nd2 06/14 16:20 Order name: ETOH Level; Complete Time: 17:48 ma2 06/14 16:20 Order name: Hepatic Function; Complete Time: 17:48 [facility] 06/14 16:20 Order name: PT-INR; Complete Time: 17:48 [facility] 06/14 16:20 Order name: Ptt, Activated; Complete Time: 17:48 [facility] 06/14 16:20 Order name: Salicylate; Complete Time: 17:48 [facility] 06/14 16:20 Order name: Urine Drug Screen; Complete Time: 17:48 [facility] 06/14 16:20 Order name: AMMONIA; Complete Time: 17:48 [facility] 06/14 16:54 Order name: Urine Dipstick--Ancillary (enter results); Complete Time: 17:48 06/14 16:54 Order name: Urine --Ancillary (enter results); Complete Time: 17:48 06/14 17:55 Order name: Urinalysis [facility] 06/14 17:55 Order name: CBC with Automated Diff [facility] 06/14 16:20 Order name: EKG; Complete Time: 16:21 [facility] 06/14 16:20 Order name: EKG - Nurse/Tech; Complete Time: 16:34 [facility] 06/14 16:20 Order name: IV Saline Lock; Complete Time: 16:34 [facility] 06/14 16:20 Order name: Labs collected and sent; Complete Time: 16:34 [facility] 06/14 16:20 Order name: Urine Dipstick-Ancillary (obtain specimen); Complete Time: 16:34 [facility] 06/14 16:20 Order name: CT Head Brain wo Cont [facility] 06/14 17:55 Order name: NPO [facility] 06/14 17:55 Order name: CBC with Automated Diff [facility] 06/14 17:55 Order name: Comprehensive Metabolic Panel [facility] 06/14 17:55 Order name: Comprehensive Metabolic Panel [facility] 06/14 18:54 Order name: CBC Smear Scan [facility] 06/14 19:09 Order name: COVID-19 bb Administered Medications: 16:29 Drug: Ativan 2 mg Route: IVP; Site: right hand; hb 16:50 Follow up: Response: No adverse reaction hb 17:02 Drug: NS 0.9% 1000 ml Route: IV; Rate: 1 bolus; Site: right hand; hb 18:00 Follow up: Response: No adverse reaction; IV Status: Completed infusion; IV Intake: sv 1000ml 18:01 Drug: Lactulose 200 grams Route: AR; hb 18:54 Follow up: Response: No adverse reaction hb Disposition: 06/14/20 17:52 Hospitalization ordered by Ed Chu for Inpatient Admission. Preliminary diagnosis are Altered mental status, unspecified, Encephalopathy, unspecified - hepatic. - Bed requested for Telemetry/MedSurg (Inpatient). - Status is Inpatient Admission. rv - Condition is Stable. - Problem is new. - Symptoms are unchanged. Signatures: Dispatcher [employer] EDMS Tory Montgomery RN RN Helena Muir RN RN Edin Bolden MD MD [facility] Meng Petit RN RN Carli Kay RN Corrections: (The following items were deleted from the chart) 19:24 17:52 Hospitalization Ordered by Ed Chu MD for Inpatient Admission. Preliminary dw diagnosis is Altered mental status, unspecified; Encephalopathy, unspecified - hepatic. Bed requested for Telemetry/MedSurg (Inpatient). Status is Inpatient Admission. Condition is Stable. Problem is new. Symptoms are unchanged. [facility] 20:12 19:24 06/14/2020 17:52 Hospitalization Ordered by Ed Chu MD for Inpatient rv Admission. Preliminary diagnosis is Altered mental status, unspecified; Encephalopathy, unspecified - hepatic. Bed requested for Telemetry/MedSurg (Inpatient). Status is Inpatient Admission. Condition is Stable. Problem is new. Symptoms are unchanged.
--- NOTE | 2020-06-14 20:20 | P.HP ---
Certification for Inpatient Patient admitted to: Inpatient With expected LOS: >2 Midnights Patient will require the following post-hospital care: None Practitioner: I am a practitioner with admitting privileges, knowledge of patient current condition, hospital course, and medical plan of care. Services: Services provided to patient in accordance with Admission requirements found in Title 42 Section 412.3 of the Code of Federal Regulations <Zion Hamm - Last Filed: 06/14/20 20:20> Patient History Date of Service: 06/14/20 Reason for admission: Altered mental status History of Present Illness: 50-year-old female with a past medical history of colon cancer and cirrhosis is brought via EMS to you with complaints of altered mental status. Per nursing staff patient is supposed to be taking lactulose at home but stopped taking her lactulose. In the emergency room patient is obtunded but will become alert with sternal rub. She be comes fairly violent and screams. She is found to have a ammonia levels of 193. Patient will be admitted and further evaluated P <Zion Hamm - Last Filed: 06/14/20 20:20> Date of Service: 06/14/20 <Artis Chu - Last Filed: 06/14/20 21:01> Allergies Unable to Assess Allergy (Unverified 06/14/20 19:53) Review of Systems is unable to be obtained <Zion Hamm - Last Filed: 06/14/20 20:20> Physical Examination - Vital Signs Temperature: 98.2 F Blood Pressure: 141/93 Pulse: 104 Respirations: 17 Pulse Ox (%): 100 (RA) - Physical Exam General: Confused, Obese, Other (Obtunded) HEENT: Atraumatic, Normocephalic, PERRLA, Mucous membr. moist/pink Neck: Supple, Other (Trachea midline) Respiratory: Clear to auscultation bilaterally, Normal air movement Cardiovascular: No edema, Normal pulses Capillary refill: <2 Seconds Gastrointestinal: Soft and benign, Non-distended Musculoskeletal: No clubbing, No contractures, No erythema Integumentary: No rashes, No significant lesion, No erythema - Studies Laboratory Data (last 24 hrs) 06/14/20 17:03: PT 14.9 H, INR 1.27, APTT 36.2 06/14/20 17:03: WBC 4.9, Hgb 13.7, Hct 42.3, Plt Count 55 L 06/14/20 17:03: Sodium 145, Potassium 3.9, BUN 11, Creatinine 0.61, Glucose 71 L, Total Bilirubin 2.7 H, AST 141 H, ALT 91 H, Alkaline Phosphatase 96 <Zion Hamm - Last Filed: 06/14/20 20:20> - Studies Laboratory Data (last 24 hrs) 06/14/20 17:03: PT 14.9 H, INR 1.27, APTT 36.2 06/14/20 17:03: WBC 4.9, Hgb 13.7, Hct 42.3, Plt Count 55 L 06/14/20 17:03: Sodium 145, Potassium 3.9, BUN 11, Creatinine 0.61, Glucose 71 L, Total Bilirubin 2.7 H, AST 141 H, ALT 91 H, Alkaline Phosphatase 96 <Artis Chu - Last Filed: 06/14/20 21:01> Assessment and Plan - Plan Impression: Altered mental status likely secondary to noncompliance with medications for liver cirrhosis: Hyperammonemia: History of liver cirrhosis: History of colon cancer: Plan: Altered mental status likely secondary to noncompliance with medications for liver cirrhosis: Patient is obtunded in the emergency room and becomes violent and screams with sternal rub. Likely resulting from high ammonia levels secondary to patient's noncompliance with her lactulose. Will restart her lactulose. Place on telemetry. Monitor vitals. Hyperammonemia: Noted to have ammonia levels of 193 on admission. Will continue lactulose as above. Monitor ammonia levels. 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 History of colon cancer: Followed outpatient. Discharge Plan: Home Plan to discharge in: Greater than 2 days - Advance Directives Does patient have a Living Will: No Does patient have a Durable POA for Healthcare: No - Code Status/Comfort Care Code Status Assessed: Yes Time Spent Managing Pts Care (In Minutes): 55 <Zion Hamm - Last Filed: 06/14/20 20:20> Physician Review: Patient Assessed, Agree with Above Assessment and Plan (Agree with the assessment and Plan as documented by the REYNALDO) <Artis Chu - Last Filed: 06/14/20 21:01>
[2020-06-14] MEDS ORDERED: D50W 25 GM/50 ML SYRINGE/VIAL IV PRN (20:49)
[2020-06-14] MEDS ORDERED: GLUCAGON 1 MG/VIAL IV PRN (20:49)
[2020-06-14] MEDS ORDERED: D50W 25 GM/50 ML SYRINGE/VIAL IV ONE (20:57)
[2020-06-14] MEDS ORDERED: INSULIN -REGULAR HUMAN 50 UNIT/0.5 ML ML SQ SCH (21:00)
[2020-06-14] MEDS ORDERED: LACTULOSE 20 GM/30 ML UCUP PR SCH (21:00)
[2020-06-14 21:11] VITALS: BMI 26.9
[2020-06-14] MEDS: PANTOPRAZOLE 40 MG INJ IVP SCH (21:27)
[2020-06-14] MEDS ORDERED: KCL 20 MEQ/100 mL IVPB 20 MEQ/100 ML BAG IV SCH (22:00)
[2020-06-14] MEDS ORDERED: NA CHLORIDE 0.9% 0 ML ONE (22:53)
[2020-06-14] MEDS ORDERED: NA CHLORIDE 0.9% 250 ML ONE (23:08)
[2020-06-14] MEDS: INSULIN -REGULAR HUMAN 50 UNIT/0.5 ML ML SQ SCH (23:28)
[2020-06-14] MEDS: PIPER/TAZO/NS 3.375gm 3.375 GM/100 ML BAG IVPB SCH (23:33)
[2020-06-14] MEDS ORDERED: PIPER/TAZO/NS 3.375gm 3.375 GM/100 ML BAG ONE (23:40)
[2020-06-14] MEDS ORDERED: D5 0.45 NS 1,000 ML IV SCH (23:45)
[2020-06-14 23:46] LABS: Urine Appearance CLEAR; Urine Blood 3+ (NEG); Urine Color DK YELLOW; Urine Glucose NEGATIVE (NEG); Urine Protein TRACE (NEG); Urine Specific Gravity 1.025 (1.005-1.030); Urine pH 5.5 (5.0-7.0)
[2020-06-14 23:48] LABS: Urine Bilirubin NEGATIVE (NEG); Urine Microscopic Reflex ORDER UMIC
[2020-06-14 23:58] LABS: Urine Bacteria 20-50 /HPF (<20); Urine Culture Reflex Order REFLEXED; Urine Mucus 2+ /HPF (NONE SEEN); Urine RBC 20-50 /HPF (NONE SEEN)
[2020-06-15] MEDS ORDERED: PIPER/TAZO/NS 3.375gm 3.375 GM/100 ML BAG ONE (04:14)
[2020-06-15] MEDS: INSULIN -REGULAR HUMAN 50 UNIT/0.5 ML ML SQ SCH ×3 (04:30→16:54)
[2020-06-15] MEDS: PIPER/TAZO/NS 3.375gm 3.375 GM/100 ML BAG IVPB SCH ×2 (05:40→16:26)
[2020-06-15 06:00] LABS: ALT/SGPT 77 U/L (12-78); AST/SGOT 114 U/L (15-37); Albumin 1.9 g/dL (3.4-5.0); Alkaline Phosphatase 89 U/L (45-117); BUN Blood Urea Nitrogen 12 mg/dL (7-18); Bicarbonate 21 mmol/L (21-32); Bilirubin Total 2.8 mg/dL (0.2-1.0); Glucose Level 82 mg/dL (74-106); Magnesium 1.8 mg/dL (1.8-2.4); Phosphorus 2.8 mg/dL (2.5-4.9); Potassium 3.8 mmol/L (3.5-5.1); Protein, Total 5.2 g/dL (6.4-8.2); Sodium Level 147 mmol/L (136-145)
[2020-06-15 06:15] LABS: Absolute Lymphocytes (CBC) 1.8 K/uL (0.7-4.9); Basophils % 0.6 % (0-1.3); Hematocrit 35.5 % (36.0-45.0); Lymphocytes % 36.2 % (15.3-44.8); MPV 10.1 fL (7.6-11.3); RBC Red Blood Cell Count 4.19 M/uL (3.86-4.86)
[2020-06-15 06:19] LABS: Blood Morphology Comment NOT SEEN (NOT SEEN); Platelet Estimate DECR; Urine White Blood Cell Casts OK
[2020-06-15] MEDS ORDERED: MAGNESIUM SULFATE 1 gm IVPB 1 GM/100 ML BAG IV ONE (09:00)
[2020-06-15] MEDS: PANTOPRAZOLE 40 MG INJ IVP SCH ×2 (09:00→20:13)
[2020-06-15] MEDS ORDERED: KCL 20 MEQ/100 mL IVPB 20 MEQ/100 ML BAG IV SCH (09:00)
[2020-06-15] MEDS ORDERED: FOLIC ACID 1 MG, MULTIVITAMINS INJ 10 ML, THIAMINE HCL 100 MG in NA CHLORIDE 0.9% 1,000 ML IV SCH (09:00)
[2020-06-15 09:11] VITALS: O2SAT 97
[2020-06-15] MEDS: LACTULOSE PR SCH ×4 (09:41→16:54)
[2020-06-15] MEDS: [UNRECOGNIZED DRUG - OTHER] PR SCH ×4 (09:41→16:54)
--- NOTE | 2020-06-15 09:58 | P.PN ---
Subjective Date of Service: 06/15/20 Chief Complaint: Altered mental status Subjective: Other (Still drowsy and difficult to arouse) Review of Systems is unable to be obtained Physical Examination - Vital Signs Temperature: 97.9 F Blood Pressure: 93/58 Pulse: 91 Respirations: 19 Pulse Ox (%): 99 - Physical Exam General: Confused, Other (Drowsy ) HEENT: Atraumatic, Normocephalic Neck: Supple Respiratory: Clear to auscultation bilaterally Cardiovascular: Regular rate/rhythm, Normal S1 S2 Capillary refill: <2 Seconds Gastrointestinal: Soft and benign, W/out hepatosplenomegaly Musculoskeletal: No clubbing, No swelling Integumentary: No rashes, No significant lesion, No tenderness/swelling Neurological: Normal speech, Normal strength at 5/5 x4 extr Lymphatics: No axilla or inguinal lymphadenopathy - Studies Laboratory Data (last 24 hrs) 06/14/20 17:03: PT 14.9 H, INR 1.27, APTT 36.2 06/14/20 17:03: WBC 4.9, Hgb 13.7, Hct 42.3, Plt Count 55 L 06/14/20 17:03: Sodium 145, Potassium 3.9, BUN 11, Creatinine 0.61, Glucose 71 L, Total Bilirubin 2.7 H, AST 141 H, ALT 91 H, Alkaline Phosphatase 96 Assessment & Plan Physician Review: Patient Assessed, Agree with Above Assessment and Plan (Agree with the assessment and Plan as documented by the REYNALDO) Physician Review Additional Text: Hepatic Encephalopathy Altered mental status likely secondary to noncompliance with medications for liver cirrhosis: Hyperammonemia: History of liver cirrhosis: History of colon cancer: UTI Plan: Altered mental status likely secondary to noncompliance with medications for liver cirrhosis: Patient is obtunded continue lactulose enema Ammonia level is elevated Monitor under telemetry Hyperammonemia: Noted to have ammonia levels of 193 on admission. Will continue lactulose as above. Monitor ammonia levels. 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 Start on banana bag start on PPI History of colon cancer: Followed outpatient. UTI Start on empiric antibiotics Will get cultures Change antibiotic as per the sensitivity Disposition : Continue lactulose and other supportive measures Continue antibiotics Monitor ammonia level in a.m. Time Spent Managing Pts Care (In Minutes): 42
[2020-06-15 17:27] VITALS: TEMP 98.1
[2020-06-15] MEDS ORDERED: INSULIN -REGULAR HUMAN 50 UNIT/0.5 ML ML SQ SCH (21:00)
[2020-06-15] MEDS ORDERED: LACTULOSE 20 GM/30 ML UCUP PO SCH (21:00)
[2020-06-15 21:11] VITALS: BP 137/81
[2020-06-15] MEDS ORDERED: PIPER/TAZO/NS 3.375gm 3.375 GM/100 ML BAG IVPB SCH (22:00)
--- NOTE | 2020-06-16 12:27 | RAD REPORT ---
EXAM DESCRIPTION: CT - Head Brain Wo Cont - 06/14/2020 10:18 pm CLINICAL HISTORY: CONFUSED TECHNIQUE: Contiguous axial CT images obtained through the brain without IV contrast. Coronal and sa gittal reformatted images were provided. This exam was performed according to our departmental dose-optimization program, which includes autom ated exposure control, adjustment of the mA and/or kV according to patient size and/or use of iterati ve reconstruction technique. COMPARISON: 02/26/2019 FINDINGS: Brain: No significant white matter changes. No focal mass effect. Jenkins-white matter differ entiation is within normal limits. No hemorrhage. Ventricles: No ventriculomegaly or midline shift. Extra-axial spaces: No extra-axial collection or hemorrhage. Paranasal sinuses and mastoid air cells: Mild left maxillary sinus mucosal thickening. Vessels: Unremarkable Bones: Unremarkable Soft tissues: Mild left frontotemporal soft tissue swelling. IMPRESSION: No acute intracranial or extra-axial abnormality. Electronically signed by: Eleni Mo MD 06/15/2020 12:43 AM CDT Due to temporary technical issues with the PACS/Fluency reporting system, reports are being signed by the in house radiologist without review as a courtesy to ensure prompt reporting. The interpreting r adiologist is fully responsible for the content of the report.
== END 2020-06-15 21:01 | disposition left against medical advice (07) | DRG 442 ==
LOC: ER 16:02 → ERHOLD 17:53 → 2ND 19:45
PROVIDERS: ADMIT Family Medicine; ATTEND Family Medicine
DX: K72.90 Hepatic failure, unspecified without coma (principal); E72.20 Disorder of urea cycle metabolism, unspecified; N39.0 Urinary tract infection, site not specified; K70.30 Alcoholic cirrhosis of liver without ascites; Z91.14 Patient's other noncompliance with medication regimen
CPT/HCPCS: 36415; 70450; 80048; 80053; 80076; 80307; 80320; 80329; 81003; 81015; 81025; 82140; 82947; 83735; 84100; 85025; 85610; 85730; 87086; 87088; 93005; 94760; 96361; 96374; 99285; C9113; J2543; J3411; J3475; J3480; J7030; J7050; J7799; U0002

== ENCOUNTER 2020-06-23 06:41 | Inpatient (IN) | payer SELFPAY ==
--- OUTSIDE RECORDS SUMMARY | 2020-06-23 06:42 | XMS REPORT | Continuity of Care Document ---
:1970 Author Organization [facility] t Address [address] [place] [address] Care Team Providers Name Role Phone Doctor [...] ID 2019-06-11 2019-06-11 Orders Doctor NARENDRA [id number] 00:00:00 00:00:00 Only UnassignedSTAR [id number] [place] [facility] [id number] 2019-05-11 2019-05-11 Emergency KAMRAN Henry [id number] 10:42:22 12:29:00 Marianne Means [id number] Secretary [id number] [place] [phone] [id number] Results This patient has no known results.
[2020-06-23] MEDS ORDERED: LORazepam 2 MG/ML VIAL ONE (07:01)
[2020-06-23 08:08] LABS: Basophils % 0.4 % (0-1.3); Hematocrit 38.5 % (36.0-45.0); Lymphocytes % 35.5 % (15.3-44.8); MPV 9.9 fL (7.6-11.3); RBC Red Blood Cell Count 4.53 M/uL (3.86-4.86)
[2020-06-23 08:28] LABS: Protime INR 1.31
--- NOTE | 2020-06-23 08:36 | EDPHYS ---
Physician Documentation [facility] Name: Lorena Hansen Age: 50 yrs Sex: Female : 1970 Arrival Date: 06/23/2020 Time: 06:43 Bed 4 Private MD: ED Physician Reilly Arellano HPI: 06/23 08:26 This 50 yrs old Female presents to ER via EMS with complaints of Altered snw Mental Status. 08:26 The patient presents with decreased responsiveness. Onset: The symptoms/episode snw began/occurred gradually, 1 day(s) ago, and became persistent. Possible causes: elevated ammonia. Associated signs and symptoms: The patient has no apparent associated signs or symptoms. Current symptoms: In the emergency department the patient's symptoms are unchanged from the initial presentation. Patient's baseline: The patient has a previous history of cirrhosis, AMS. The patient has experienced similar episodes in the past, multiple times, with the last episode occurring 2 week(s) ago. It is unknown whether or not the patient has recently seen a physician. 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 - Social history:: Smoking status: unknown. ROS: 08:26 Eyes: Negative for injury, pain, redness, and discharge, ENT: Negative for injury, snw pain, and discharge, Neck: Negative for injury, pain, and swelling, Cardiovascular: Negative for chest pain, palpitations, and edema, Respiratory: Negative for shortness of breath, cough, wheezing, and pleuritic chest pain, Abdomen/GI: Negative for abdominal pain, nausea, vomiting, diarrhea, and constipation, Back: Negative for injury and pain, : Negative for injury, bleeding, discharge, and swelling, MS/Extremity: Negative for injury and deformity, Skin: Negative for injury, rash, and discoloration. 08:26 Constitutional: Positive for malaise. 08:26 Neuro: Positive for altered mental status. Exam: 07:05 Head/Face: Normocephalic, atraumatic. Eyes: Pupils equal round and reactive to light, snw extra-ocular motions intact. Lids and lashes normal. Conjunctiva and sclera are non-icteric and not injected. Cornea within normal limits. Periorbital areas with no swelling, redness, or edema. 07:05 Neck: Trachea midline, no thyromegaly or masses palpated, and no cervical lymphadenopathy. Supple, full range of motion without nuchal rigidity, or vertebral point tenderness. No Meningismus. Chest/axilla: Normal chest wall appearance and motion. Nontender with no deformity. No lesions are appreciated. Cardiovascular: Regular rate and rhythm with a normal S1 and S2. No gallops, murmurs, or rubs. Normal PMI, no JVD. No pulse deficits. + anasarca Respiratory: Lungs have equal breath sounds bilaterally, clear to auscultation and percussion. No rales, rhonchi or wheezes noted. No increased work of breathing, no retractions or nasal flaring. Back: No spinal tenderness. No costovertebral tenderness. Full range of motion. Skin: Warm, dry with normal turgor. Normal color with no rashes, no lesions, and no evidence of cellulitis. MS/ Extremity: Pulses equal, no cyanosis. Neurovascular intact. Full, normal range of motion. 07:05 Constitutional: The patient appears lethargic, upon moving pt from stretcher to stretcher she became agitated, screaming, clawing, pt incontinent of urine 07:05 ENT: Dental exam: dentures removed on arrival. 07:05 Abdomen/GI: Inspection: distension, obese Bowel sounds: diminished. 07:05 Neuro: Orientation: unable to test, Mentation: somnolent, responsive to pain, seizure activity, is not displayed by the patient, combative on stimulation. Vital Signs: 06:44 BP 155 / 69; Pulse 61; Resp 18; Pulse Ox 98% on R/A; mg2 06:51 BP 155 / 66; Pulse 88; Resp 19; Temp 97(TE); Pulse Ox 98% on R/A; Weight 68.04 kg; Pain mt2 0/10; 08:08 BP 156 / 100; Pulse 94 MON; Resp 14; Pulse Ox 100% on R/A; sv 09:03 BP 164 / 94; Pulse 89 MON; Resp 12; Pulse Ox 99% on R/A; sv 09:43 BP 168 / 92; Pulse 88; Resp 14; Pulse Ox 98% on R/A; sv 08:08 Sinus Rhythm sv 09:03 Sinus Rhythm sv Procedures: 07:53 Peripheral line: by aseptic technique a peripheral line was placed in the right snw external jugular vein. MDM: 06:49 Patient medically screened. snw 08:34 Data reviewed: vital signs, nurses notes. Data interpreted: Pulse oximetry: on room air snw is 100 %. Interpretation: acceptable. Counseling: I had a detailed discussion with the patient and/or guardian regarding: the historical points, exam findings, and any diagnostic results supporting the discharge/admit diagnosis, lab results, radiology results, the need for further work-up and treatment in the hospital. Physician consultation: Edin Davis MD was called at 08:34, was contacted at 08:34, regarding admission, to the medical/surgical unit. patient's condition. 08:57 ED course: lactate 5.2, will withhold fluids second to anasarca and hx of fluid snw overload, pt may require albumin infusion. Albumin 2.2 . 06/23 06:45 Order name: T\T\S; Complete Time: 08:57 snw 06/23 06:45 Order name: Amylase, Serum; Complete Time: 08:57 snw 06/23 06:45 Order name: Basic Metabolic Panel; Complete Time: 08:57 snw 06/23 06:45 Order name: Blood Culture Adult (2) snw 06/23 06:45 Order name: CBC with Diff; Complete Time: 10:00 snw 06/23 06:45 Order name: Ckmb; Complete Time: 08:57 snw 06/23 06:45 Order name: CPK; Complete Time: 08:57 snw 06/23 06:45 Order name: Lactate; Complete Time: 08:57 snw 06/23 06:45 Order name: LFT's; Complete Time: 08:57 snw 06/23 06:45 Order name: Lipase; Complete Time: 08:57 snw 06/23 06:45 Order name: Procalcitonin; Complete Time: 09:26 snw 06/23 06:45 Order name: Protime (+inr); Complete Time: 08:32 snw 06/23 06:45 Order name: Ptt, Activated; Complete Time: 08:32 snw 06/23 06:45 Order name: Troponin (emerg Dept Use Only); Complete Time: 08:57 snw 06/23 06:45 Order name: Urine Microscopic Only; Complete Time: 08:57 snw 06/23 06:45 Order name: AMMONIA; Complete Time: 08:23 snw 06/23 08:21 Order name: UDS; Complete Time: 09:26 snw 06/23 08:37 Order name: Urine Dipstick--Ancillary (enter results); Complete Time: 08:40 eb 06/23 08:37 Order name: Urine --Ancillary (enter results); Complete Time: 08:40 eb 06/23 09:01 Order name: Comprehensive Metabolic Panel EDMS 06/23 09:01 Order name: Comprehensive Metabolic Panel EDMS 06/23 09:01 Order name: Lactate EDMS 06/23 09:01 Order name: Lactate EDMS 06/23 09:01 Order name: Magnesium EDMS 06/23 09:01 Order name: Magnesium EDMS 06/23 09:01 Order name: NT PRO-BNP EDMS 06/23 09:01 Order name: NT PRO-BNP EDMS 06/23 09:01 Order name: Phosphorus EDMS 06/23 09:01 Order name: Phosphorus EDMS 06/23 06:45 Order name: Chest Single View XRAY; Complete Time: 09:26 snw 06/23 06:45 Order name: Cardiac monitoring; Complete Time: 08:11 snw 06/23 06:45 Order name: EKG - Nurse/Tech; Complete Time: 08:11 snw 06/23 06:45 Order name: IV Saline Lock - Large Bore; Complete Time: 08:11 snw 06/23 06:45 Order name: Labs collected and sent; Complete Time: 08:11 snw 06/23 06:45 Order name: O2 Per Protocol; Complete Time: 07:17 snw 06/23 06:45 Order name: O2 Sat Monitoring; Complete Time: 07:17 snw 06/23 06:45 Order name: Urine Dipstick-Ancillary (obtain specimen); Complete Time: 08:11 snw 06/23 09:01 Order name: Protime (+INR) EDMS 06/23 09:01 Order name: Protime (+INR) EDMS 06/23 09:01 Order name: PTT, Activated Partial Thromb EDMS 06/23 09:01 Order name: PTT, Activated Partial Thromb EDMS 06/23 09:02 Order name: Clear Liquid EDMS 06/23 09:02 Order name: Urinalysis EDMS 06/23 09:02 Order name: CBC with Automated Diff EDMS 06/23 09:02 Order name: CBC with Automated Diff EDMS 06/23 09:03 Order name: Restraint:Violent/Self Destructive (Adult:18yo or >); Complete Time: 09:03 sv 06/23 09:03 Order name: Ammonia EDMS 06/23 09:03 Order name: Ammonia EDMS 06/23 09:48 Order name: Manual Differential; Complete Time: 10:00 EDMS EC:05 Rate is 93 beats/min. Rhythm is regular. QRS [place] is Normal. MI interval is shortened. snw QRS interval is normal. QT interval is normal. No Q waves. T waves are Inverted in lead aVR. Clinical impression: NSR w/ Non-specific ST/T Changes. Administered Medications: 06:51 Drug: Ativan 2 mg Route: IM; Site: right vastus lateralis; mt2 07:50 Follow up: Response: No adverse reaction sv 08:41 Drug: Rocephin 1 grams Route: IV; Rate: calculated rate; Site: right jugular; sv 08:43 Follow up: Response: No adverse reaction; IV Status: Completed infusion; IV Intake: 10mlsv 10:00 Drug: Lactulose 175 grams {Note: informed Kala CHILD CARE ASSISTANT I was able to get 3/4 of the 300 gm sv in rectally.} Route: MI; 10:16 Follow up: Response: No adverse reaction sv Disposition: 06/24 07:03 Co-signature as Attending Physician, Reilly Arellano MD I agree with the assessment and tw4 plan of care. Disposition: 06/23/20 08:36 Hospitalization ordered by Edin Davis for Inpatient Admission. Preliminary diagnosis are Encephalopathy, unspecified - Hepatic, Other cirrhosis of liver. - Bed requested for Telemetry/MedSurg (Inpatient). - Status is Inpatient Admission. sv - Condition is Stable. - Problem is an acute exacerbation. - Symptoms are unchanged. Signatures: Dispatcher [employer] Carli Chau RN RN sv Waters, Shelly, FNP-C FNP-Csnw Reilly Arellano MD MD tw4 Ariana Bird eb Jordi Peterson, RN RN mg2 Malena Hargrove RN RN mt2 Corrections: (The following items were deleted from the chart) 06/23 08:11 06:45 Henry ordered. sn sv 08:12 06:45 Accucheck ordered. [facility] sv 08:23 08:22 URINE DRUG SCREEN+CHEM UR.LAB.BRZ ordered. EDMS EDMS 09: 08:36 Hospitalization Ordered by Edin Davis MD for Inpatient Admission. Preliminary eb diagnosis is Encephalopathy, unspecified - Hepatic; Other cirrhosis of liver. Bed requested for Telemetry/MedSurg (Inpatient). Status is Inpatient Admission. Condition is Stable. Problem is an acute exacerbation. Symptoms are unchanged. snw 10:16 09:23 06/23/2020 08:36 Hospitalization Ordered by Edin Davis MD for Inpatient sv Admission. Preliminary diagnosis is Encephalopathy, unspecified - Hepatic; Other cirrhosis of liver. Bed requested for Telemetry/MedSurg (Inpatient). Status is Inpatient Admission. Condition is Stable. Problem is an acute exacerbation. Symptoms are unchanged. eb
--- NOTE | 2020-06-23 08:36 | ER ---
Nurse's Notes [facility] Name: Lorena Hansen Age: 50 yrs Sex: Female : 1970 Arrival Date: 06/23/2020 Time: 06:43 Bed 4 Private MD: Diagnosis: Encephalopathy, unspecified-Hepatic;Other cirrhosis of liver Presentation: 06/23 06:44 Chief complaint: EMS states: she is known case Liver cirrhosis. patient was mg2 unresponsive at home and woke up and became combative. Coronavirus screen: Client denies travel out of the [place] in the last 14 days. Ebola Screen: No symptoms or risks identified at this time. Initial Sepsis Screen: Does the patient meet any 2 criteria? No. Patient's initial sepsis screen is negative. Does the patient have a suspected source of infection? No. Patient's initial sepsis screen is negative. Risk Assessment: Do you want to hurt yourself or someone else? Patient reports no desire to harm self or others. Onset of symptoms was June 23, 2020. 06:44 Method Of Arrival: EMS: [facility] mg2 06:44 Acuity: SUDHA 2 mg2 06:45 Chief complaint: EMS states: BIBA FROM WITH AMS. PER EMS PT WITH LIVER CA. BECOMES mt2 CONFUSED AND COMBATIVE WHEN HEPATIC FUNCTION IS HIGH. PT AWAKE, CONFUSED AND COMBATIVE. Coronavirus screen: At this time, the client does not indicate any symptoms associated with coronavirus-19. Ebola Screen: No symptoms or risks identified at this time. Initial Sepsis Screen: Does the patient meet any 2 criteria? Altered Mental Status. Does the patient have a suspected source of infection? No. Patient's initial sepsis screen is negative. Risk Assessment: Do you want to hurt yourself or someone else? Patient reports desire/thoughts of hurting themselves or someone else. Provider notified. Other: PT CONFUSED. Onset of symptoms was June 23, 2020. Care prior to arrival: None. 06:45 Method Of Arrival: EMS: [facility] mt2 06:45 Acuity: SUDHA 2 mt2 Triage Assessment: 06:52 General: Appears distressed, Behavior is combative, restless. Pain: Unable to use pain mt2 scale. Patient is disoriented. EENT: No deficits noted. Neuro: Oriented to none Speech INCOHERENT. Respiratory: No deficits noted. : INCONTINENT. Derm: No deficits noted. 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 - Social history:: Smoking status: unknown. Screenin:52 Abuse screen: Denies threats or abuse. Nutritional screening: No deficits noted. mt2 Tuberculosis screening: No symptoms or risk factors identified. Fall Risk Gait- Weak (10 pts.). Mental Status- Overestimates/Forgets Limitations (15 pts.). Assessment: 07:02 General: see triage assessment. mg2 07:15 General: Appears uncomfortable, well developed, Behavior is agitated, combative. Pain: sv Unable to use pain scale. Does not appear to understand pain scale. Patient appears agitated, screaming when touched. Neuro: Level of Consciousness is confused, intermittent lethargy. Oriented to none Moves all extremities. Cardiovascular: Patient's skin is warm and dry. Respiratory: Airway is patent Respiratory effort is even, unlabored, Respiratory pattern is regular. : pt has urinated on herself. Will be cleaned of incontinence. Derm: Skin is normal. 08:41 Reassessment: Patient appears in no apparent distress at this time. No changes from sv previously documented assessment. Patient and/or family updated on plan of care and expected duration. Pain level reassessed. Patient is alert, oriented x 3, equal unlabored respirations, skin warm/dry/pink. 09:47 Reassessment: Patient appears in no apparent distress at this time. No changes from sv previously documented assessment. Patient and/or family updated on plan of care and expected duration. Pain level reassessed. Patient is alert, oriented x 3, equal unlabored respirations, skin warm/dry/pink. Vital Signs: 06:44 BP 155 / 69; Pulse 61; Resp 18; Pulse Ox 98% on R/A; mg2 06:51 BP 155 / 66; Pulse 88; Resp 19; Temp 97(TE); Pulse Ox 98% on R/A; Weight 68.04 kg; Pain mt2 0/10; 08:08 BP 156 / 100; Pulse 94 MON; Resp 14; Pulse Ox 100% on R/A; sv 09:03 BP 164 / 94; Pulse 89 MON; Resp 12; Pulse Ox 99% on R/A; sv 09:43 BP 168 / 92; Pulse 88; Resp 14; Pulse Ox 98% on R/A; sv 08:08 Sinus Rhythm sv 09:03 Sinus Rhythm sv ED Course: 06:43 Patient arrived in ED. mg2 06:43 [facility]C [facility] snw 06:43 Reilly Arellano MD is Attending Physician. snw 06:45 Malena Hargrove, RN is Primary Nurse. mt2 06:46 Triage completed. mg2 06:47 Arm band placed on. mg2 06:53 Patient has correct armband on for positive identification. Bed in low position. Call mt2 light in reach. Side rails up X2. 07:03 No provider procedures requiring assistance completed. mg2 07:15 Missed attempt(s): 22 gauge in left hand. done by Lisandra biosolids management technician. Bleeding controlled, sv band aid applied, catheter tip intact. 07:20 Inserted saline lock: 22 gauge in left wrist, using aseptic technique. ,using aseptic sv technique. diffusics. 07:30 Henry cath inserted, using sterile technique, 16 Fr., by nc, balloon inflated, to sv gravity drainage, urine specimen collected. returned cloudy urine. Patient tolerated poorly. 07:40 First set of blood cultures drawn by ED staff. sv 07:50 Second set of blood cultures drawn by ED staff. Inserted saline lock: 18 gauge in right sv EJ, using aseptic technique. ,using aseptic technique. done by Kala FENCE MAKING MACHINE OPERATOR Blood collected. 07:50 Placed nasal trumpet 28 Fr via right nare. sv 08:00 monitoring specialist on. Pulse ox on. NIBP on. sv 08:07 Primary Nurse role handed off by Malena Hargrove, DAYNA sv 08:07 Carli Kay, DAYNA is Primary Nurse. sv 08:09 EKG done, by ED staff, reviewed by Kala DAVENPORT. sv 08:14 Awaiting lab results, Awaiting for x-ray. sv 08:31 Chest Single View XRAY In Process Unspecified. EDMS 08:35 Edin Davis MD is Hospitalizing Provider. snw 08:36 Awaiting bed assignment. sv 09:47 Patient admitted, IV remains in place. intact. sv Restraints: 07:30 Violent/Self Destructive Restraint: Order: obtained. Initiated June 23, 2020 at sv 07:30 Staff present during the Initiation of Restraint: Kala NGUYEN, Carli Schmitt RN, Princess Duran RN, Jameson Mckenna RN.. Family Notification/Education: Unable to provide education: Pt is disoriented and combative.. Observed actions/behavior: destructive, violent, severely aggressive, harming self/others, confusion/disorientation, difficulty remembering or follow instructions, impaired decision making, repeated attempts to get up from bed/chair without assistance. decreased Level of Consciousness (LOC), unable to follow instructions, rptd attempts to remove/tamper lines/tubes/IV/med devices \T\ wnd dressing, Less restrictive alternatives attempted: decreased environmental stimuli, 1:1 patient care, placed near Nurse station, reoriented to location, medications evaluated, medicated for pain/anxiety, performed diversional activities, covered lines/tubes, eliminated unnecessary lines/tubes, verbal de-escalation performed, Alternative interventions: Ineffective. Clinical justification for use: Violent/self destructing behavior impacts therapeutic environment. Poses a serious danger to physical safety of self \T\ others. Monitoring: Mental status: agitated/restless, confused. Cognition: Unable to assess. poor judgement, poor safety awareness, Impulsive, poor attention/concentration, unable to follow commands, Circulation: Within defined parameters (based on Cardiovascular assessment). Skin integrity: Within defined parameters (based on Integumentary assessment) No injuries due to Restraints noted. Restraint status: Side rails up x 4 Started. Soft wrist restraint (Right) Started. Soft wrist restraint (Left) Started. Readiness for Discontinue: Criteria not met. Patient still violent/self destructive and Alternative interventions still ineffective. Restraint continued. Face to Face Evaluatn: Immediate Situation: Pt is severely combative, agitated, attempting to get out of the stretcher. Response of Patient to Restraint: agitated, screaming, attempting to get out of bed Medical \T\ Behavioral condition: Cirrhosis Continue Restraint. MD Notified of Evaluation result: Kala LOPEZP-C. 07:45 Violent/Self Destructive Restraint: Observed actions/behavior: destructive, violent, sv severely aggressive, harming self/others, confusion/disorientation, difficulty remembering or follow instructions, impaired decision making, repeated attempts to get up from bed/chair without assistance. decreased Level of Consciousness (LOC), unable to follow instructions, rptd attempts to remove/tamper lines/tubes/IV/med devices \T\ wnd dressing, Less restrictive alternatives attempted: decreased environmental stimuli, 1:1 patient care, placed near Nurse station, reoriented to location, medications evaluated, medicated for pain/anxiety, performed diversional activities, covered lines/tubes, eliminated unnecessary lines/tubes, verbal de-escalation performed, Alternative interventions: Ineffective. Clinical justification for use: Violent/self destructing behavior impacts therapeutic environment. Poses a serious danger to physical safety of self \T\ others. Monitoring: Mental status: agitated/restless, confused. Cognition: Unable to assess. poor judgement, poor safety awareness, Impulsive, poor attention/concentration, unable to follow commands, Circulation: Within defined parameters (based on Cardiovascular assessment). Skin integrity: Within defined parameters (based on Integumentary assessment) No injuries due to Restraints noted. Restraint status: Side rails up x 4 Continued. Soft wrist restraint (Right) Continued. Soft wrist restraint (Left) Continued. Readiness for Discontinue: Criteria not met. Patient still violent/self destructive and Alternative interventions still ineffective. Restraint continued. 08:00 Violent/Self Destructive Restraint: Observed actions/behavior: destructive, violent, sv severely aggressive, harming self/others, confusion/disorientation, difficulty remembering or follow instructions, impaired decision making, repeated attempts to get up from bed/chair without assistance. decreased Level of Consciousness (LOC), unable to follow instructions, rptd attempts to remove/tamper lines/tubes/IV/med devices \T\ wnd dressing, Less restrictive alternatives attempted: decreased environmental stimuli, 1:1 patient care, placed near Nurse station, reoriented to location, medications evaluated, medicated for pain/anxiety, performed diversional activities, covered lines/tubes, eliminated unnecessary lines/tubes, verbal de-escalation performed, Alternative interventions: Ineffective. Clinical justification for use: Violent/self destructing behavior impacts therapeutic environment. Poses a serious danger to physical safety of self \T\ others. Monitoring: Mental status: agitated/restless, confused. Cognition: Unable to assess. poor judgement, poor safety awareness, Impulsive, poor attention/concentration, unable to follow commands, Circulation: Within defined parameters (based on Cardiovascular assessment). Skin integrity: Within defined parameters (based on Integumentary assessment) No injuries due to Restraints noted. Restraint status: Side rails up x 4 Continued. Soft wrist restraint (Right) Continued. Soft wrist restraint (Left) Continued. Readiness for Discontinue: Criteria not met. Patient still violent/self destructive and Alternative interventions still ineffective. Restraint continued. 08:15 Violent/Self Destructive Restraint: Observed actions/behavior: destructive, violent, sv severely aggressive, harming self/others, confusion/disorientation, difficulty remembering or follow instructions, impaired decision making, repeated attempts to get up from bed/chair without assistance. decreased Level of Consciousness (LOC), unable to follow instructions, rptd attempts to remove/tamper lines/tubes/IV/med devices \T\ wnd dressing, Less restrictive alternatives attempted: decreased environmental stimuli, 1:1 patient care, placed near Nurse station, reoriented to location, medications evaluated, medicated for pain/anxiety, performed diversional activities, covered lines/tubes, eliminated unnecessary lines/tubes, verbal de-escalation performed, Alternative interventions: Ineffective. Clinical justification for use: Violent/self destructing behavior impacts therapeutic environment. Poses a serious danger to physical safety of self \T\ others. Monitoring: Mental status: agitated/restless, confused. Cognition: Unable to assess. poor judgement, poor safety awareness, Impulsive, poor attention/concentration, unable to follow commands, Circulation: Within defined parameters (based on Cardiovascular assessment). Skin integrity: Within defined parameters (based on Integumentary assessment) No injuries due to Restraints noted. Restraint status: Side rails up x 4 Continued. Soft wrist restraint (Right) Continued. Soft wrist restraint (Left) Continued. Readiness for Discontinue: Criteria not met. Patient still violent/self destructive and Alternative interventions still ineffective. Restraint continued. 08:30 Violent/Self Destructive Restraint: Observed actions/behavior: destructive, violent, sv severely aggressive, harming self/others, confusion/disorientation, difficulty remembering or follow instructions, impaired decision making, repeated attempts to get up from bed/chair without assistance. decreased Level of Consciousness (LOC), unable to follow instructions, rptd attempts to remove/tamper lines/tubes/IV/med devices \T\ wnd dressing, Less restrictive alternatives attempted: decreased environmental stimuli, 1:1 patient care, placed near Nurse station, reoriented to location, medications evaluated, medicated for pain/anxiety, performed diversional activities, covered lines/tubes, eliminated unnecessary lines/tubes, verbal de-escalation performed, Alternative interventions: Ineffective. Clinical justification for use: Violent/self destructing behavior impacts therapeutic environment. Poses a serious danger to physical safety of self \T\ others. Monitoring: Mental status: agitated/restless, confused. Cognition: Unable to assess. poor judgement, poor safety awareness, Impulsive, poor attention/concentration, unable to follow commands, Circulation: Within defined parameters (based on Cardiovascular assessment). Skin integrity: Within defined parameters (based on Integumentary assessment) No injuries due to Restraints noted. Restraint status: Side rails up x 4 Continued. Soft wrist restraint (Right) Continued. Soft wrist restraint (Left) Continued. Readiness for Discontinue: Criteria not met. Patient still violent/self destructive and Alternative interventions still ineffective. Restraint continued. 08:45 Violent/Self Destructive Restraint: Observed actions/behavior: destructive, violent, sv severely aggressive, harming self/others, confusion/disorientation, difficulty remembering or follow instructions, impaired decision making, repeated attempts to get up from bed/chair without assistance. decreased Level of Consciousness (LOC), unable to follow instructions, rptd attempts to remove/tamper lines/tubes/IV/med devices \T\ wnd dressing, Less restrictive alternatives attempted: decreased environmental stimuli, 1:1 patient care, placed near Nurse station, reoriented to location, medications evaluated, medicated for pain/anxiety, performed diversional activities, covered lines/tubes, eliminated unnecessary lines/tubes, verbal de-escalation performed, Alternative interventions: Ineffective. Clinical justification for use: Violent/self destructing behavior impacts therapeutic environment. Poses a serious danger to physical safety of self \T\ others. Monitoring: Mental status: agitated/restless, confused. Cognition: Unable to assess. poor judgement, poor safety awareness, Impulsive, poor attention/concentration, unable to follow commands, Circulation: Within defined parameters (based on Cardiovascular assessment). Skin integrity: Within defined parameters (based on Integumentary assessment) No injuries due to Restraints noted. Restraint status: Side rails up x 4 Continued. Soft wrist restraint (Right) Continued. Soft wrist restraint (Left) Continued. Readiness for Discontinue: Criteria not met. Patient still violent/self destructive and Alternative interventions still ineffective. Restraint continued. 09:00 Violent/Self Destructive Restraint: Observed actions/behavior: destructive, violent, sv severely aggressive, harming self/others, confusion/disorientation, difficulty remembering or follow instructions, impaired decision making, repeated attempts to get up from bed/chair without assistance. decreased Level of Consciousness (LOC), unable to follow instructions, rptd attempts to remove/tamper lines/tubes/IV/med devices \T\ wnd dressing, Less restrictive alternatives attempted: decreased environmental stimuli, 1:1 patient care, placed near Nurse station, reoriented to location, medications evaluated, medicated for pain/anxiety, performed diversional activities, covered lines/tubes, eliminated unnecessary lines/tubes, verbal de-escalation performed, Alternative interventions: Ineffective. Clinical justification for use: Violent/self destructing behavior impacts therapeutic environment. Poses a serious danger to physical safety of self \T\ others. Monitoring: Mental status: agitated/restless, confused. Cognition: Unable to assess. poor judgement, poor safety awareness, Impulsive, poor attention/concentration, unable to follow commands, Circulation: Within defined parameters (based on Cardiovascular assessment). Skin integrity: Within defined parameters (based on Integumentary assessment) No injuries due to Restraints noted. Restraint status: Side rails up x 4 Continued. Soft wrist restraint (Right) Continued. Soft wrist restraint (Left) Continued. Readiness for Discontinue: Criteria not met. Patient still violent/self destructive and Alternative interventions still ineffective. Restraint continued. 09:15 Violent/Self Destructive Restraint: Observed actions/behavior: destructive, violent, sv severely aggressive, harming self/others, confusion/disorientation, difficulty remembering or follow instructions, impaired decision making, repeated attempts to get up from bed/chair without assistance. decreased Level of Consciousness (LOC), unable to follow instructions, rptd attempts to remove/tamper lines/tubes/IV/med devices \T\ wnd dressing, Less restrictive alternatives attempted: decreased environmental stimuli, 1:1 patient care, placed near Nurse station, reoriented to location, medications evaluated, medicated for pain/anxiety, performed diversional activities, covered lines/tubes, eliminated unnecessary lines/tubes, verbal de-escalation performed, Alternative interventions: Ineffective. Clinical justification for use: Violent/self destructing behavior impacts therapeutic environment. Poses a serious danger to physical safety of self \T\ others. Monitoring: Mental status: agitated/restless, confused. Cognition: Unable to assess. poor judgement, poor safety awareness, Impulsive, poor attention/concentration, unable to follow commands, Circulation: Within defined parameters (based on Cardiovascular assessment). Skin integrity: Within defined parameters (based on Integumentary assessment) No injuries due to Restraints noted. Restraint status: Side rails up x 4 Continued. Soft wrist restraint (Right) Continued. Soft wrist restraint (Left) Continued. Readiness for Discontinue: Criteria not met. Patient still violent/self destructive and Alternative interventions still ineffective. Restraint continued. 09:30 Violent/Self Destructive Restraint: Observed actions/behavior: destructive, violent, sv severely aggressive, harming self/others, confusion/disorientation, difficulty remembering or follow instructions, impaired decision making, repeated attempts to get up from bed/chair without assistance. decreased Level of Consciousness (LOC), unable to follow instructions, rptd attempts to remove/tamper lines/tubes/IV/med devices \T\ wnd dressing, Less restrictive alternatives attempted: decreased environmental stimuli, 1:1 patient care, placed near Nurse station, reoriented to location, medications evaluated, medicated for pain/anxiety, performed diversional activities, covered lines/tubes, eliminated unnecessary lines/tubes, verbal de-escalation performed, Alternative interventions: Ineffective. Clinical justification for use: Violent/self destructing behavior impacts therapeutic environment. Poses a serious danger to physical safety of self \T\ others. Monitoring: Mental status: agitated/restless, confused. Cognition: Unable to assess. poor judgement, poor safety awareness, Impulsive, poor attention/concentration, unable to follow commands, Circulation: Within defined parameters (based on Cardiovascular assessment). Skin integrity: Within defined parameters (based on Integumentary assessment) No injuries due to Restraints noted. Restraint status: Side rails up x 4 Continued. Soft wrist restraint (Right) Continued. Soft wrist restraint (Left) Continued. Readiness for Discontinue: Criteria not met. Patient still violent/self destructive and Alternative interventions still ineffective. Restraint continued. 09:45 Violent/Self Destructive Restraint: Observed actions/behavior: destructive, violent, sv severely aggressive, harming self/others, confusion/disorientation, difficulty remembering or follow instructions, impaired decision making, repeated attempts to get up from bed/chair without assistance. decreased Level of Consciousness (LOC), unable to follow instructions, rptd attempts to remove/tamper lines/tubes/IV/med devices \T\ wnd dressing, Less restrictive alternatives attempted: decreased environmental stimuli, 1:1 patient care, placed near Nurse station, reoriented to location, medications evaluated, medicated for pain/anxiety, performed diversional activities, covered lines/tubes, eliminated unnecessary lines/tubes, verbal de-escalation performed, Alternative interventions: Ineffective. Clinical justification for use: Violent/self destructing behavior impacts therapeutic environment. Poses a serious danger to physical safety of self \T\ others. Monitoring: Mental status: agitated/restless, confused. Cognition: Unable to assess. poor judgement, poor safety awareness, Impulsive, poor attention/concentration, unable to follow commands, Circulation: Within defined parameters (based on Cardiovascular assessment). Skin integrity: Within defined parameters (based on Integumentary assessment) No injuries due to Restraints noted. Restraint status: Side rails up x 4 Continued. Soft wrist restraint (Right) Continued. Soft wrist restraint (Left) Continued. Readiness for Discontinue: Criteria not met. Patient still violent/self destructive and Alternative interventions still ineffective. Restraint continued. Administered Medications: 06:51 Drug: Ativan 2 mg Route: IM; Site: right vastus lateralis; mt2 07:50 Follow up: Response: No adverse reaction sv 08:41 Drug: Rocephin 1 grams Route: IV; Rate: calculated rate; Site: right jugular; sv 08:43 Follow up: Response: No adverse reaction; IV Status: Completed infusion; IV Intake: 10mlsv 10:00 Drug: Lactulose 175 grams {Note: informed Kala NGUYEN I was able to get 3/4 of the 300 gm sv in rectally.} Route: IA; 10:16 Follow up: Response: No adverse reaction sv Intake: 08:43 IV: 10ml; Total: 10ml. sv Outcome: 08:36 Decision to Hospitalize by Provider. snw 09:47 Admitted to Tele accompanied by tech, via stretcher, room 202, with chart, Report sv called to Lorena MCINTOSH 09:47 Condition: stable 09:47 Instructed on the need for admit. 10:16 Patient left the ED. sv Signatures: Dispatcher [employer] EDCarli Valentin RN RN sv Waters, Shelly, TEAM MANAGER-C TEAM MANAGER-Csnw Jordi Peterson RN RN [facility] [place] Malena Hargrove RN RN il2 Miriam Matos RN RN [id number] Corrections: (The following items were deleted from the chart) 07:02 06:44 Chief complaint: EMS states: she is known case Liver cirrhosis patient, patient mg2 is combative. mg2 07:24 07:23 Reassessment: Pt reports continued pain at 7/10 at present, reports that first jr10 dose of morphine did decrease pain mildly; pt currently on O2 reports chronic home O2 user at 3L via NC jr10 08:13 07:50 Placed nasal trumpet via right nare. sv sv 10:15 10:00 Lactulose 175 grams IA sv sv
[2020-06-23 08:39] LABS: Urine Blood 2+ (NEG); Urine Glucose NEGATIVE (NEG); Urine Protein NEGATIVE (NEG); Urine pH 8.5 (5.0-7.0)
[2020-06-23] MEDS ORDERED: CEFTRIAXONE/SWI 1gm 1 GM/10 ML SYR ONE (08:43)
[2020-06-23] MEDS ORDERED: LACTULOSE 20 GM/30 ML UCUP ONE (08:44)
[2020-06-23 08:48] LABS: ALT/SGPT 101 U/L (12-78); Albumin 2.2 g/dL (3.4-5.0); Alkaline Phosphatase 104 U/L (45-117); Amylase 34 U/L (25-115); BUN Blood Urea Nitrogen 7 mg/dL (7-18); Bicarbonate 24 mmol/L (21-32); Bilirubin Direct 1.1 mg/dL (0-0.2); Bilirubin Total 3.1 mg/dL (0.2-1.0); Creatine Phosphokinase 569 U/L (26-192); Glucose Level 84 mg/dL (74-106); Lipase 114 U/L (73-393); Protein, Total 5.9 g/dL (6.4-8.2); Sodium Level 146 mmol/L (136-145); Troponin (Emerg Dept Use Only) < 0.02 ng/mL (0.0-0.045)
[2020-06-23 08:49] LABS: AST/SGOT 145 U/L (15-37)
[2020-06-23 08:50] LABS: CKMB Creatine Kinase MB 12.8 ng/mL (0.3-3.6)
[2020-06-23 08:54] LABS: Calcium Oxalate Crystals- Ur FEW (NONE SEEN); Urine Amorphous Sediment 4+ /HPF (NONE SEEN); Urine Bacteria <20 /HPF (<20); Urine Culture Reflex Order NOT NEEDED; Urine RBC 20-50 /HPF (NONE SEEN)
[2020-06-23] MEDS ORDERED: ONDANSETRON 4 MG/2 ML VIAL IV PRN (08:58)
--- NOTE | 2020-06-23 08:59 | RAD REPORT ---
EXAM DESCRIPTION: RAD - Chest Single View - 06/23/2020 8:33 am CLINICAL HISTORY: overload, unresponsive COMPARISON: None TECHNIQUE: AP portable chest image was obtained 06/23/2020 8:33 am . FINDINGS: No focal mass, consolidation or diffuse edema pattern in the lung parenchyma. Interstitial pattern is not outside of normal range. No hilar mass or lymphadenopathy seen. Heart and vasculature are normal. No measurable pleural effusion and no pneumothorax. No acute bony abnormality seen. No a cute aortic findings suspected. IMPRESSION: No acute cardiopulmonary process.
[2020-06-23] MEDS: LACTULOSE 20 GM/30 ML UCUP PO SCH ×3 (09:00→21:00)
[2020-06-23 09:14] LABS: Barbiturates NEGATIVE (NEGATIVE); Benzodiazepines NEGATIVE (NEGATIVE); Cocaine NEGATIVE (NEGATIVE); METHAMPHETAM POSITIVE (NEGATIVE); Methadone NEGATIVE (NEGATIVE); Opiates NEGATIVE (NEGATIVE); Phencyclidine NEGATIVE (NEGATIVE); THC Cannibis NEGATIVE (NEGATIVE)
[2020-06-23 09:48] LABS: Blood Morphology Comment NOT SEEN (NOT SEEN); Platelet Estimate DECR
[2020-06-23] MEDS: Rifaximin 550 MG Tab PO SCH ×2 (10:00→21:00)
[2020-06-23] MEDS: ENOXAPARIN 30 MG/0.3 ML SQ SCH (10:00)
[2020-06-23] MEDS ORDERED: ALBUMIN HUMAN 25% 100 ML IV SCH (11:00)
[2020-06-23] MEDS: NA CHLORIDE 0.9% 1,000 ML IV SCH (11:38)
--- NOTE | 2020-06-23 15:42 | P.HP ---
Certification for Inpatient Patient admitted to: Inpatient With expected LOS: >2 Midnights Patient will require the following post-hospital care: None Practitioner: I am a practitioner with admitting privileges, knowledge of patient current condition, hospital course, and medical plan of care. Services: Services provided to patient in accordance with Admission requirements found in Title 42 Section 412.3 of the Code of Federal Regulations Patient History Date of Service: 06/23/20 Reason for admission: Acute hepatic encephalopathy/delirium/liver cirrhosis History of Present Illness: Patient is a 50-year-old female who presents to the hospital with altered mentation. Patient is difficult to arouse and confused whenever she does arouse. She was seen in the emergency room, and her ammonia level was significantly elevated. She has been noncompliant with her medications. She has a questionable history of colon cancer, but she has received no treatment. If she is not improving with the lactulose then we may need to do futher investigation with brain MRI to evaluate for mets. She will be admitted to the hospital for further evaluation. Allergies ondansetron [From Zofran] Allergy (Verified 06/14/20 21:06) Anaphylaxis Home Medications: Furosemide 40 mg PO DAILY 06/24/20 Lactulose 45 ml PO TID 06/24/20 Rifaximin [Xifaxan] 550 mg PO BID 06/24/20 - Past Medical/Surgical History Diabetic: No -: liver cirrhosis -: bleeding ulcer Past Surgical History: Unable to obtain - Family History Mother Medical History: Cancer - Social History Smoking Status: Former smoker Alcohol use: No CD- Drugs: No Caffeine use: No Review of Systems is unable to be obtained Physical Examination - Vital Signs Temperature: 97.4 F Blood Pressure: 154/83 Pulse: 93 Respirations: 18 Pulse Ox (%): 96 - Physical Exam General: Confused, Delirious HEENT: Atraumatic, PERRLA, Mucous membr. moist/pink, EOMI, Sclerae nonicteric Neck: Supple, 2+ carotid pulse no bruit, No LAD, Without JVD or thyroid abnormality Respiratory: Clear to auscultation bilaterally, Normal air movement Cardiovascular: Regular rate/rhythm, Normal S1 S2 Gastrointestinal: Normal bowel sounds, Soft and benign, No rebound, No guarding, Distended, Tenderness Musculoskeletal: No tenderness Integumentary: No rashes Neurological: Normal tone, Abnormal gait, Abnormal speech, Abnormal strength, Abnormal affect Lymphatics: No axilla or inguinal lymphadenopathy - Studies Laboratory Data (last 24 hrs) 06/23/20 07:50: PT 15.4 H, INR 1.31, APTT 36.0 06/23/20 07:50: WBC 5.6 D, Hgb 12.6, Hct 38.5, Plt Count 55 L D 06/23/20 07:50: Sodium 146 H, Potassium 4.0, BUN 7, Creatinine 0.75, Glucose 84, Total Bilirubin 3.1 H, AST 145 H, ALT 101 H, Alkaline Phosphatase 104, Amylase 34, Lipase 114 Assessment & Plan - Problems (Diagnosis) (1) Hepatic encephalopathy Current Visit: Yes Status: Acute (2) Liver cirrhosis Current Visit: Yes Status: Acute (3) Lactic acidosis Current Visit: Yes Status: Acute (4) Coagulopathy Current Visit: Yes Status: Acute (5) Hypoalbuminemia Current Visit: Yes Status: Acute - Plan PLAN: 1. Continue lactulose 2. Rifaximin 3. Monitor LFTs and ammonia level 4. Outpatient hepatology 5. Possile evaluation for metastatic disease. 6. Will need to discuss with her the importance of taking her meds 7. GI/DVT prophylaxis Discharge Plan: Home Plan to discharge in: Greater than 2 days - Advance Directives Does patient have a Living Will: No Does patient have a Durable POA for Healthcare: No - Code Status/Comfort Care Code Status Assessed: Yes Code Status: Full Code Critical Care: No Time Spent Managing PTS Care (In Minutes): 45
[2020-06-23 18:30] VITALS: BMI 25.0
[2020-06-24 00:14] VITALS: O2SAT 99
[2020-06-24] MEDS: LACTULOSE 20 GM/30 ML UCUP PO SCH ×4 (03:00→14:32)
[2020-06-24] MEDS: NA CHLORIDE 0.9% 1,000 ML IV SCH (03:47)
[2020-06-24 04:14] LABS: Absolute Lymphocytes (CBC) 1.5 K/uL (0.7-4.9); Basophils % 0.2 % (0-1.3); Hematocrit 34.8 % (36.0-45.0); Lymphocytes % 23.7 % (15.3-44.8); MPV 10.3 fL (7.6-11.3); RBC Red Blood Cell Count 4.06 M/uL (3.86-4.86)
[2020-06-24 04:16] LABS: Protime INR 1.41
[2020-06-24 04:29] LABS: ALT/SGPT 82 U/L (12-78); AST/SGOT 119 U/L (15-37); Albumin 2.4 g/dL (3.4-5.0); Alkaline Phosphatase 87 U/L (45-117); BUN Blood Urea Nitrogen 12 mg/dL (7-18); Bicarbonate 25 mmol/L (21-32); Bilirubin Total 3.1 mg/dL (0.2-1.0); Glucose Level 54 mg/dL (74-106); Magnesium 1.8 mg/dL (1.8-2.4); NT PRO-BNP 136 pg/mL (<125); Phosphorus 2.9 mg/dL (2.5-4.9); Potassium 3.5 mmol/L (3.5-5.1); Protein, Total 5.4 g/dL (6.4-8.2); Sodium Level 148 mmol/L (136-145)
[2020-06-24] MEDS ORDERED: MAGNESIUM SULFATE 1 gm IVPB 1 GM/100 ML BAG IV ONE (07:00)
[2020-06-24] MEDS ORDERED: KCL 20 MEQ/100 mL IVPB 20 MEQ/100 ML BAG IV SCH (09:00)
[2020-06-24] MEDS: ENOXAPARIN 30 MG/0.3 ML SQ SCH (09:00)
[2020-06-24] MEDS: Rifaximin 550 MG Tab PO SCH (10:15)
--- NOTE | 2020-06-24 11:08 | P.PN ---
Subjective Date of Service: 06/24/20 Subjective: No new changes, No C/O voiced Patient is still lethargic and following some commands-still altered; ammonia level elevated as patient did not get lactulose last night x 2. Will continue to monitor. Hopefully, we can start a diet today Review of Systems 10-point ROS is otherwise unremarkable Physical Examination - Vital Signs Temperature: 97.4 F Blood Pressure: 154/83 Pulse: 93 Respirations: 18 Pulse Ox (%): 96 - Physical Exam General: Alert, In no apparent distress, Oriented x1, Confused Respiratory: Clear to auscultation bilaterally, Normal air movement Cardiovascular: Regular rate/rhythm, Normal S1 S2, No murmurs Gastrointestinal: Normal bowel sounds, Soft and benign, Non-distended, Tenderness Musculoskeletal: No clubbing, No swelling - Studies Medications List Reviewed: Yes Assessment & Plan - Problems (Diagnosis) (1) Hepatic encephalopathy Current Visit: Yes Status: Acute (2) Liver cirrhosis Current Visit: Yes Status: Acute (3) Lactic acidosis Current Visit: Yes Status: Acute (4) Coagulopathy Current Visit: Yes Status: Acute (5) Hypoalbuminemia Current Visit: Yes Status: Acute - Plan PLAN: Continue with POC as mentioned below: 1. Continue lactulose 2. Rifaximin 3. Monitor LFTs and ammonia level 4. Outpatient hepatology 5. Possible evaluation for metastatic disease. 6. Will need to discuss with her the importance of taking her meds 7. GI/DVT prophylaxis Discharge Plan: Home Plan to discharge in: 48 Hours - Advance Directives Does patient have a Living Will: No Does patient have a Durable POA for Healthcare: No - Code Status/Comfort Care Code Status: Full Code Critical Care: No Time Spent Managing PTS Care (In Minutes): 35
[2020-06-24 12:13] VITALS: BP 155/90; TEMP 97
--- NOTE | 2020-06-24 20:03 | EKG ---
Test Date: 2020-06-23 Test Time: 08:03:20 Formula Room Worker: YON MEASUREMENT RESULTS: Intervals: Rate: 93 IN: 114 QRSD: 76 QT: 374 QTc: 465 [place]: P: 82 IN: 114 QRS: 54 T: 74 INTERPRETIVE STATEMENTS: Normal sinus rhythm Possible Left atrial enlargement Borderline ECG Compared to ECG 06/14/2020 16:44:57 No significant changes Electronically Signed On 06-24-20 19:59:35 CDT by Josué Park
[2020-06-24] MEDS ORDERED: ENSURE CLEAR 200 ML CAN PO SCH (21:00)
== END 2020-06-24 16:12 | disposition left against medical advice (07) | DRG 442 ==
LOC: ER 06:41 → ERHOLD 08:58 → 2ND 10:22
PROVIDERS: ADMIT Hospitalist; ATTEND Hospitalist
DX: K72.90 Hepatic failure, unspecified without coma (principal); E87.2 Acidosis; D68.9 Coagulation defect, unspecified; K74.60 Unspecified cirrhosis of liver; E88.09 Other disorders of plasma-protein metabolism, not elsewhere classified; Z85.038 Personal history of other malignant neoplasm of large intestine; Z79.899 Other long term (current) drug therapy; Z91.14 Patient's other noncompliance with medication regimen; Z53.29 Procedure and treatment not carried out because of patient's decision for other reasons; Z87.891 Personal history of nicotine dependence; Z88.8 Allergy status to other drugs, medicaments and biological substances; Z20.828 Contact with and (suspected) exposure to other viral communicable diseases
CPT/HCPCS: 36415; 51702; 71045; 80048; 80053; 80076; 80307; 81003; 81015; 81025; 82140; 82150; 82550; 82553; 83605; 83690; 83735; 83880; 84100; 84145; 84484; 85025; 85610; 85730; 86850; 86900; 86901; 87040; 93005; 96372; 96374; 99285; J0696; J1650; J3475; J3480; J7030; P9047

== ENCOUNTER 2020-10-21 23:41 | Emergency (ER) | payer SELFPAY ==
--- OUTSIDE RECORDS SUMMARY | 2020-10-21 23:43 | XMS REPORT | Continuity of Care Document ---
:1970 Author Organization [facility] t Address [address] [place] [address] Care Team Providers Name Role Phone Clem Fallon RN Attending Clinician Nroman Boss MD Attending Clinician Kevin Newman MD Attending Clinician Olivia JEFF Attending Clinician Shane Attending Clinician Carito Nam MD Attending Clinician Andrea JEFF Attending Clinician Lavon JEFF Attending Clinician Doctor Unassigned, Name Attending Clinician Unavailable Carito Nair Attending Clinician Dalila JEFF Admitting Clinician Andrea JEFF Admitting Clinician Problems This patient has no known problems. Allergies, Adverse Reactions, Alerts This patient has no known allergies or adverse reactions. Medications This patient has no known medications. Procedures This patient has no known procedures. Encounters Start End Encounter Admission Attending Care Care Encounter Source Date/Time Date/Time Type Type Clinicians Facility Department ID 2020-10-13 2020-10-13 Patient Diane Fallon [id number] 00:00:00 00:00:00 Outreach E Pham [id number] [place] [id number] 2020-10-01 2020-10-03 Hospital Ruben Boss [facility] [id number] .[id number] 14:36:00 10:48:00 Encounter Jordi Garcia [facility] [id number] OliviaCristofer monteiro [place] [id number] [place] [id number] [facility] 109 ([facility]) 2020-09-29 2020-09-29 Patient Diane Fallon [id number] 00:00:00 00:00:00 Outreach E Pham [id number] [place] [id number] [id number] 2020-09-25 2020-09-25 Transition Dar Lynn [id number] 00:00:00 00:00:00 of Care Valerie Pham [id number] [place] [id number] 2020-09-22 2020-09-24 Hospital Balta Nam [facility] 1.2.840. [id number] 05:04:00 10:44:00 Encounter Alondra Mendez [id number] [place] [id number] [place] [facility] [phone] [facility] 111 ([facility]) 2020-06-30 2020-06-30 Emergency Lavon [facility] [id number] 14:48:00 18:31:00 Hugo Means [id number] [place] [id number] [place] [id number] [id number] 2019-06-11 2019-06-11 Orders Doctor NARENDRA [id number] 00:00:00 00:00:00 Only Unassigned, STAR [id number] [facility] [id number] 2019-05-11 2019-05-11 Emergency Carl [facility] [id number] 10:42:22 12:29:00 Marianne Means [id number] [place] [id number] [place] [phone] [id number] Results This patient has no known results.
--- OUTSIDE RECORDS SUMMARY | 2020-10-21 23:44 | XMS REPORT | Summary of Care ---
:1970 Author Organization [facility] Address [address] [place] [id number] Care Team Providers Name Role Phone Pcp, Does Not Have A Primary Care Provider Reason for Visit Reason Comments Transition Of Care Encounter Details Date Type Department Care Team Description 09/25/2020 Transition of Care [facility] Christy Santana Transition Of Care [facility]- [address] [place] [id number] Allergies Active Allergy Reactions Severity Noted Date Comments Ondansetron Hcl (Pf) Hives 09/26/2018 documented as of this encounter (statuses as of 09/25/2020) Medications Medication Sig Dispensed Refills Start Date End Date Status rifAXIMin 200 mg tablet Take 3 tablets 60 tablet 0 09/27/2018 Active by mouth 2 (two) times daily. x 10 days HG furosemide 20 mg Take 1 tablet by 30 tablet 0 05/11/2019 Active tabletIndications: mouth every Cirrhosis of liver morning. without ascites, unspecified hepatic cirrhosis type lactulose 10 gram/15 mL Take 30 mL by 0 Active oral solution mouth daily. levoFLOXacin 500 mg Take 1 tablet by 3 tablet 0 09/24/2020 Active tabletIndications: mouth every 24 Hepatic encephalopathy (twenty-four) hours. documented as of this encounter (statuses as of 09/25/2020) Active Problems Problem Noted Date Hepatic encephalopathy 09/22/2020 GIB (gastrointestinal bleeding) 09/26/2018 Gastrointestinal hemorrhage with hematemesis 8 Overview: Added automatically from request for ines ramirez [id number] Coffee ground emesis 02/04/2018 Hematemesis 01/26/2018 Abdominal pain 01/23/2018 Pancreatitis 12/24/2017 Right upper quadrant abdominal pain 12/24/2017 Overview: Added automatically from request for ines ramirez [id number] documented as of this encounter (statuses as of 09/25/2020) Immunizations Name Administration Dates Next Due Influenza Virus Vaccine Quad IM 3+ YRS 02/07/2018, 8 Pneumococcal Polysaccharide, PPSV23 (PNEUMOVAX) 12/29/2017 Twinrix (hep a/hep b) 02/07/2018 documented as of this encounter Social History Tobacco Use Types Packs/Day Years Used Date Former Smoker Smokeless Tobacco: Never Used Comments: quit 18 yrs ago Alcohol Use Drinks/Week oz/Week Comments Yes Former Sex Assigned at Date Recorded Not on file COVID-19 Exposure Response Date Recorded In the last month, have you been in contact with No / Unsure 09/22/2020 5:00 AM [employer]PER[employer] someone who was confirmed or suspected to have Coronavirus / COVID-19? documented as of this encounter Last Filed Vital Signs Not on filedocumented in this encounter Miscellaneous Notes Telephone Encounter - Valerie Lynn - 09/25/2020 3:25 PM CSTCHP referral submitted to Diane Fallon [facility]. documented in this encounter Plan of Treatment Health Maintenance Due Date Last Done Comments Depression Screening 1980 DTaP,Tdap,and Td Vaccines (1 - 1987 Tdap) PAP SMEAR 1989 Breast Cancer Screening 2008 (MAMMOGRAM) COLON CANCER SCREENING FIT DNA 2018 EVERY 3 YEARS COLON CANCER SCREENING 2018 SIGMOIDOSCOPY EVERY 5 YEARS COLONOSCOPY 2018 Zoster Recombinant Vaccine 2018 (SHINGRIX) (1 of 2) COLON CANCER SCREENING ANNUAL 12/24/2018 12/24/2017 FIT/FOBT Colorectal Cancer Screening 12/24/2018 INFLUENZA VACCINE (#1) 2020 02/07/2018, 12/29/2017 PNEUMOCOCCAL 0-64 YEARS Aged Out 12/29/2017 No longe r eligible based COMBINED SERIES on patient's age to complete [facility] to [facility] documented as of this encounter Results Not on filedocumented in this encounter
--- OUTSIDE RECORDS SUMMARY | 2020-10-21 23:44 | XMS REPORT | Summary of Care ---
:1970 Author Organization [address] [address] Care Team Providers Name Role Phone Pcp, Does Not Have A Primary Care Provider Reason for Visit Reason Comments Referral/consult chp referral Encounter Details Date Type Department Care Team Description 09/29/2020 Patient Outreach [facility] Diane Fallon RN Referral/consult [address] (p refer ral) [place], [place] [address] Allergies Active Allergy Reactions Severity Noted Date Comments Ondansetron Hcl (Pf) Hives 09/26/2018 documented as of this encounter (statuses as of 09/29/2020) Medications Medication Sig Dispensed Refills Start Date [...] as of this encounter (statuses as of 09/29/2020) Active Problems Problem Noted Date Hepatic encephalopathy 09/22/2020 GIB (gastrointestinal bleeding) 09/26/2018 Gastrointestinal hemorrhage with hematemesis 8 Overview: Added automatically from request for ines ramirez [id number] Coffee ground emesis 02/04/2018 Hematemesis 01/26/2018 Abdominal pain 01/23/2018 Pancreatitis 12/24/2017 Right upper quadrant abdominal pain 12/24/2017 Overview: Added automatically from request for ines ramirez [id number] documented as of this encounter (statuses as of 09/29/2020) Immunizations Name Administration Dates Next Due Influenza [...] with No / Unsure 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 documented as of this encounter Last Filed Vital Signs Not on filedocumented in this encounter Progress Notes Diane Fallon RN - 09/29/2020 2:39 PM CSTSummary: chp referral [facility]P Referral: 1st attempt Reason for referral/Immediate needs: Liver failure CM left VM on patient's S/O machine, requesting a call back to discuss [facility] enrollment. The patient'slisted number was incorrect. ABBY Patel, RN, [facility] Outpatient Calender Roll OperatorAn/Ssn 2 4 OperatorCarolinas Continue[facility] O: [phone] M: [phone] documented in this encounter Plan of Treatment [...] on patient's age to complete this to pic documented as of this encounter Results Not on filedocumented in this encounter
--- OUTSIDE RECORDS SUMMARY | 2020-10-21 23:44 | XMS REPORT | Summary of Care ---
:1970 Author Organization [facility] Address [address] [place] [id number] Care Team Providers Name Role Phone Pcp, Does Not Have A Primary Care Provider Reason for Referral (Routine) Status Reason Specialty Diagnoses / Referred By Referred To Procedures Contact Contact New Request Case Management Procedures Leti Barriga, CONSULT/REFERRAL MD [facility] [address] [place] [address] Radiology Services (Routine) Status Reason Specialty Diagnoses / Referred By Referred To Procedures Contact Contact New Request Diagnostic Diagnoses Hepatic encephalopathy Leti Barriga, Radiology Procedures XR KUB MD Jacob [address] [place] [address] Radiology Services (Routine) Status Reason Specialty Diagnoses / Referred By Referred To Procedures Contact Contact New Request Diagnostic Diagnoses Hepatic encephalopathy Alondra Mendez MD Radiology Procedures XR KUB [address] [place] [phone] Radiology Services (Routine) Status Reason Specialty Diagnoses / Referred By Referred To Procedures Contact Contact New Request Diagnostic Diagnoses Altered mental status, unspecified altered mental status type Alondra Mendez MD Radiology Procedures Abdominal 1 View - To confirm nasogastric tube placement. [address] [place] [address] MRI/CAT Scan (STAT) Status Reason Specialty Diagnoses / Referred By Referred To Procedures Contact Contact New Request Diagnostic Diagnoses Altered mental status, unspecified altered mental status type Balta Nam Radiology Procedures CT HEAD WO CONTRAST MD Carito [address] [address] Radiology Services (STAT) Status Reason Specialty Diagnoses / Referred By Referred To Procedures Contact Contact New Request Diagnostic Diagnoses Altered mental status, unspecified altered mental status type Balta Nam Radiology Procedures XR CHEST 1 CRISTIANO Arzate MD [address] [address] Reason for Visit Reason Comments FACIAL SWELLING Other pain Auth/Cert Status Reason Specialty Diagnoses / Referred By Referred To Procedures Contact Contact Emergency Medicine [facility] [address] [place] [address] Fax: Encounter Details Date Type Department Care Team Description 09/22/2020 - [facility] Balta Nam MD [address] [address] Hepatic 09/24/2020 Encounter Intensive Care Alondra Mendez MD [address] [place] [address] encephalopathy Unit [facility] [address] [place] [address] Allergies Active Allergy Reactions Severity Noted Date Comments Ondansetron Hcl (Pf) Hives 09/26/2018 documented as of this encounter (statuses as of 09/24/2020) Medications Medication Sig Dispensed Refills Start Date [...] as of this encounter (statuses as of 09/24/2020) Active Problems Problem Noted Date Hepatic encephalopathy 09/22/2020 GIB (gastrointestinal bleeding) 09/26/2018 Gastrointestinal hemorrhage with hematemesis 8 Overview: Added automatically from request for ines ramirez [id number] Coffee ground emesis 02/04/2018 Hematemesis 01/26/2018 Abdominal pain 01/23/2018 Pancreatitis 12/24/2017 Right upper quadrant abdominal pain 12/24/2017 Overview: Added automatically from request for ines ramirez [id number] documented as of this encounter (statuses as of 09/24/2020) Immunizations Name Administration Dates Next Due Influenza [...] with No / Unsure 09/22/2020 5:00 AM 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 documented as of this encounter Last Filed Vital Signs Vital Sign Reading Time Taken Comments Blood Pressure 134/80 09/24/2020 8:00 AM STUDENT DRIVING INSTRUCTOR Pulse 102 09/24/2020 8:00 AM STUDENT DRIVING INSTRUCTOR Temperature 36.6 C (97.9 F) 09/24/2020 8:00 AM STUDENT DRIVING INSTRUCTOR Respiratory Rate 13 09/24/2020 8:00 AM STUDENT DRIVING INSTRUCTOR Oxygen Saturation 95% 09/24/2020 8:00 AM STUDENT DRIVING INSTRUCTOR Inhaled Oxygen Concentration - - Weight 66.6 kg (146 lb 13.2 oz) 09/23/2020 2:00 PM STUDENT DRIVING INSTRUCTOR Height 162 cm (5' 3.78") 09/22/2020 10:29 AM STUDENT DRIVING INSTRUCTOR Body Mass Index 25.38 09/22/2020 10:29 AM STUDENT DRIVING INSTRUCTOR documented in this encounter Discharge Summaries Alondra Mendez MD - 09/24/2020 10:19 AM CST CLS Team Discharge Summary Date of Service: 09/24/2020 ADMIT DATE: 09/22/2020 DISCHARGE DATE: 09/24/2020 ATTENDING MD: Alondra Mendez MD PCP: PATIENT DOES NOT HAVE A PCP REASON FOR ADMISSION <principal problem not specified> FINAL DIAGNOSIS: Liver cirrhosis Hepatic encephalopathy UTI Active Problems: Hepatic encephalopathy (09/22/2020) POA: Yes Resolved Problems: * No resolved hospital problems. * Orders Placed This Encounter CONSULT CARDIOLOGY CONSULT GASTROENTEROLOGY CONSULT/REFERRAL [facility] No orders of the defined types were placed in this encounter. Temp: [35.9 C (96.6 F)-37.2 C (98.9 F)] Heart Rate (monitor): [74-107] Pulse: [74-106] Resp: [5-153] BP: (124-177)/(38-95) MAP (mmHg): [71-114] Physical Exam SIGNIFICANT LAB/X-RAYS: Recent Results (from the past 48 hour(s)) POCT GLUCOSE (AUTOMATED) Collection Time: 09/22/20 4:38 PM Result Value Ref Range POCT GLU 86 70 - 110 mg/dL MRSA / MSSA Screen by PCR, Nares Collection Time: 09/22/20 4:56 PM Specimen: NARE, LEFT SIDE; Swab Result Value Ref Range MRSA Screen by PCR, Nares Negative Negative MSSA Screen by PCR, Nares Positive (A) Negative MRSA/MSSA Positive? Yes (A) No POCT GLUCOSE (AUTOMATED) Collection Time: 09/22/20 6:24 PM Result Value Ref Range POCT GLU 88 70 - 110 mg/dL POCT GLUCOSE (AUTOMATED) Collection Time: 09/22/20 7:32 PM Result Value Ref Range POCT GLU 95 70 - 110 mg/dL POCT GLUCOSE (AUTOMATED) Collection Time: 09/22/20 9:07 PM Result Value Ref Range POCT GLU 92 70 - 110 mg/dL POCT GLUCOSE (AUTOMATED) Collection Time: 09/22/20 10:04 PM Result Value Ref Range POCT GLU 94 70 - 110 mg/dL POCT GLUCOSE (AUTOMATED) Collection Time: 09/22/20 11:58 PM Result Value Ref Range POCT GLU 108 70 - 110 mg/dL PROTHROMBIN TIME / INR Collection Time: 09/23/20 2:17 AM Result Value Ref Range PROTIME PATIENT 17.1 (H) 10.1 - 12.6 Seconds INR 1.5 CBC WITH DIFF Collection Time: 09/23/20 2:47 AM Result Value Ref Range WBC 7.46 4.30 - 11.10 10*3/L RBC 3.38 (L) 3.93 - 5.25 10*6/L HGB 9.4 (L) 11.6 - 15.0 g/dL HCT 30.3 (L) 35.7 - 45.2 % MCV 89.6 80.6 - 95.5 fL MCH 27.8 25.9 - 32.8 pg MCHC 31.0 (L) 31.6 - 35.1 g/dL RDW-SD 57.6 (H) 39.0 - 49.9 fL RDW-CV 18.3 (H) 12.0 - 15.5 % PLT 69 (L) 166 - 358 10*3/L MPV 11.1 9.5 - 12.9 fL IPF % 1.6 1.3 - 7.7 % NRBC/100 WBC 0.0 0.0 - 10.0 /100 WBCs NRBC x10^3 <0.01 10*3/L GRAN MAT (NEUT) % 64.7 % IMM GRAN % 0.50 % LYMPH % 22.7 % MONO % 9.5 % EOS % 1.9 % BASO % 0.7 % GRAN MAT x10^3(ANC) 4.83 1.88 - 7.09 10*3/uL IMM GRAN x10^3 0.04 0.00 - 0.06 10*3/uL LYMPH x10^3 1.69 1.32 - 3.29 10*3/uL MONO x10^3 0.71 0.33 - 0.92 10*3/uL EOS x10^3 0.14 0.03 - 0.39 10*3/uL BASO x10^3 0.05 0.01 - 0.07 10*3/uL BASIC METABOLIC PANEL (NA, K, CL, CO2, GLUCOSE, BUN, CREATININE, CA) Collection Time: 09/23/20 2:47 AM Result Value Ref Range NA 139 135 - 145 mmol/L K 2.8 (LL) 3.5 - 5.0 mmol/L CL 110 (H) 98 - 108 mmol/L CO2 TOTAL 28 23 - 31 mmol/L AGAP 1 (L) 2 - 16 BUN 24 (H) 7 - 23 mg/dL GLUCOSE 101 70 - 110 mg/dL CREATININE 0.79 0.50 - 1.04 mg/dL CALCIUM 7.7 (L) 8.6 - 10.6 mg/dL eGFR Calculation (Non-) 76.4 mL/min/1.73m2 eGFR Calculation () 92.6 mL/min/1.73m2 AMMONIA, PLASMA Collection Time: 09/23/20 4:02 AM Result Value Ref Range AMMONIA 52 (H) 9 - 33 umol/L BASIC METABOLIC PANEL (NA, K, CL, CO2, GLUCOSE, BUN, CREATININE, CA) Collection Time: 09/24/20 7:17 AM Result Value Ref Range NA 138 135 - 145 mmol/L K 3.2 (L) 3.5 - 5.0 mmol/L CL 107 98 - 108 mmol/L CO2 TOTAL 30 23 - 31 mmol/L AGAP 1 (L) 2 - 16 BUN 18 7 - 23 mg/dL GLUCOSE 128 (H) 70 - 110 mg/dL CREATININE 0.60 0.50 - 1.04 mg/dL CALCIUM 7.5 (L) 8.6 - 10.6 mg/dL eGFR Calculation (Non-) 105.0 mL/min/1.73m2 eGFR Calculation () 127.2 mL/min/1.73m2 AMMONIA, PLASMA Collection Time: 09/24/20 7:17 AM Result Value Ref Range AMMONIA 80 (H) 9 - 33 umol/L CBC WITHOUT DIFF Collection Time: 09/24/20 7:17 AM Result Value Ref Range WBC 4.95 4.30 - 11.10 10*3/L RBC 3.32 (L) 3.93 - 5.25 10*6/L HGB 9.2 (L) 11.6 - 15.0 g/dL HCT 30.0 (L) 35.7 - 45.2 % MCH 27.7 25.9 - 32.8 pg MCV 90.4 80.6 - 95.5 fL MCHC 30.7 (L) 31.6 - 35.1 g/dL PLT 63 (L) 166 - 358 10*3/L MPV 10.5 9.5 - 12.9 fL RDW-CV 18.4 (H) 12.0 - 15.5 % RDW-SD 58.6 (H) 39.0 - 49.9 fL NRBC x10^3 <0.01 10*3/L NRBC/100 WBC 0.0 0.0 - 10.0 /100 WBCs IPF % 2.2 1.3 - 7.7 % Lactic Acid Whole Blood Collection Time: 09/24/20 7:31 AM Result Value Ref Range LACTIC ACID 1.69 mmol/L Abdominal 1 View - To Confirm Nasogastric Tube Placement. Result Date: 09/22/2020 Tip of the Dobbhoff tube is at the gastroesophageal junction and should be advanced Xr Kub Result Date: 09/23/2020 1. Tip of the NG tube is in satisfactory position Xr Kub Result Date: 09/23/2020 Limited exam due to patient motion. The NG tube appears to terminate in the distal stomach. RL: [id number] AFC: [id number] ITAL COURSE: Admitted for hepatic encephalopathy Seen by GI and cardiology for elevated trop Started on ceftriaxone for possible UTI and SBP Improved significantly after lactulose ITEMS FOR FOLLOW UP PROVIDER: (including pending labs/cultures/studies, anticipated problems, etc.) FUNCTIONAL STATUS: fully ambulatory DISCHARGE CONDITION: good COGNITIVE STATUS: cognitively intact DISCHARGE INSTRUCTIONS: Discharge Orders POCT GLUCOSE(AGE >30DAYS) CONSULT/REFERRAL [facility] Order Comments: Reason for referral/Immediate needs: Liver failure Requesting consult or referral? Referral Reason for referral - please evaluate and treat for: Liver failure Primary diagnoses for referral Liver Disease DISCHARGE MEDICATIONS: Current Discharge Medication List STOP taking these medications lactulose (CEPHULAC) 30 mL Comments: Reason for Stopping: furosemide (LASIX) 20 mg Comments: Reason for Stopping: rifAXIMin (XIFAXAN) 600 mg Comments: Reason for Stopping: WOUND CARE: CODE STATUS: full code OXYGEN (is patient being discharged on oxygen): no PATIENT EDUCATION PROVIDED: DISCHARGE: AMA FOLLOW-UP APPOINTMENT: PLAN FOR READMISSION: No Please call or text [phone] to contact Alondra Mendez MD with any questions. - documented in this encounter Progress Notes Alondra Mendez MD - 09/24/2020 10:17 AM CST CLS Progress Note Date of Service: 09/24/2020 10:17 Chief Complaint: Awake and alert SUBJECTIVE: Follows commands PHYSICAL EXAM: Vitals: 09/24/20 0600 09/24/20 0630 09/24/20 0700 09/24/20 0800 BP: (!) 159/93 (!) 153/95 (!) 149/94 134/80 Pulse: 85 74 86 102 Resp: 17 09 27 13 Temp: 36.6 C (97.9 F) TempSrc: Axillary SpO2: 95% 93% 94% 95% Weight: Height: Intake/Output Summary (Last 24 hours) at 09/24/2020 1017 Last data filed at 09/24/2020 0400 Gross per 24 hour Intake 1246 ml Output 1030 ml Net 216 ml General: alert and oriented; no apparent distress HEENT: pupils equal, round; extraocular movements intact; oropharynx clear; moist mucous membranes Lungs: clear to auscultation bilaterally, no crackles, no wheezes, cough is strong and effective Cardio: regular rate and rhythm, no murmurs, no gallops Abdomen: soft; non-tender; non-distended; normoactive bowel sounds Extremities: no cyanosis, clubbing or edema LABS/IMAGING - reviewed, pertinent results as below: Recent Results (from the past 48 hour(s)) POCT GLUCOSE (AUTOMATED) Collection Time: 09/22/20 4:38 PM Result Value Ref Range POCT GLU 86 70 - 110 mg/dL MRSA / MSSA Screen by PCR, Nares Collection Time: 09/22/20 4:56 PM Specimen: NARE, LEFT SIDE; Swab Result Value Ref Range MRSA Screen by PCR, Nares Negative Negative MSSA Screen by PCR, Nares Positive (A) Negative MRSA/MSSA Positive? Yes (A) No POCT GLUCOSE (AUTOMATED) Collection Time: 09/22/20 6:24 PM Result Value Ref Range POCT GLU 88 70 - 110 mg/dL POCT GLUCOSE (AUTOMATED) Collection Time: 09/22/20 7:32 PM Result Value Ref Range POCT GLU 95 70 - 110 mg/dL POCT GLUCOSE (AUTOMATED) Collection Time: 09/22/20 9:07 PM Result Value Ref Range POCT GLU 92 70 - 110 mg/dL POCT GLUCOSE (AUTOMATED) Collection Time: 09/22/20 10:04 PM Result Value Ref Range POCT GLU 94 70 - 110 mg/dL POCT GLUCOSE (AUTOMATED) Collection Time: 09/22/20 11:58 PM Result Value Ref Range POCT GLU 108 70 - 110 mg/dL PROTHROMBIN TIME / INR Collection Time: 09/23/20 2:17 AM Result Value Ref Range PROTIME PATIENT 17.1 (H) 10.1 - 12.6 Seconds INR 1.5 CBC WITH DIFF Collection Time: 09/23/20 2:47 AM Result Value Ref Range WBC 7.46 4.30 - 11.10 10*3/L RBC 3.38 (L) 3.93 - 5.25 10*6/L HGB 9.4 (L) 11.6 - 15.0 g/dL HCT 30.3 (L) 35.7 - 45.2 % MCV 89.6 80.6 - 95.5 fL MCH 27.8 25.9 - 32.8 pg MCHC 31.0 (L) 31.6 - 35.1 g/dL RDW-SD 57.6 (H) 39.0 - 49.9 fL RDW-CV 18.3 (H) 12.0 - 15.5 % PLT 69 (L) 166 - 358 10*3/L MPV 11.1 9.5 - 12.9 fL IPF % 1.6 1.3 - 7.7 % NRBC/100 WBC 0.0 0.0 - 10.0 /100 WBCs NRBC x10^3 <0.01 10*3/L GRAN MAT (NEUT) % 64.7 % IMM GRAN % 0.50 % LYMPH % 22.7 % MONO % 9.5 % EOS % 1.9 % BASO % 0.7 % GRAN MAT x10^3(ANC) 4.83 1.88 - 7.09 10*3/uL IMM GRAN x10^3 0.04 0.00 - 0.06 10*3/uL LYMPH x10^3 1.69 1.32 - 3.29 10*3/uL MONO x10^3 0.71 0.33 - 0.92 10*3/uL EOS x10^3 0.14 0.03 - 0.39 10*3/uL BASO x10^3 0.05 0.01 - 0.07 10*3/uL BASIC METABOLIC PANEL (NA, K, CL, CO2, GLUCOSE, BUN, CREATININE, CA) Collection Time: 09/23/20 2:47 AM Result Value Ref Range NA 139 135 - 145 mmol/L K 2.8 (LL) 3.5 - 5.0 mmol/L CL 110 (H) 98 - 108 mmol/L CO2 TOTAL 28 23 - 31 mmol/L AGAP 1 (L) 2 - 16 BUN 24 (H) 7 - 23 mg/dL GLUCOSE 101 70 - 110 mg/dL CREATININE 0.79 0.50 - 1.04 mg/dL CALCIUM 7.7 (L) 8.6 - 10.6 mg/dL eGFR Calculation (Non-) 76.4 mL/min/1.73m2 eGFR Calculation () 92.6 mL/min/1.73m2 AMMONIA, PLASMA Collection Time: 09/23/20 4:02 AM Result Value Ref Range AMMONIA 52 (H) 9 - 33 umol/L BASIC METABOLIC PANEL (NA, K, CL, CO2, GLUCOSE, BUN, CREATININE, CA) Collection Time: 09/24/20 7:17 AM Result Value Ref Range NA 138 135 - 145 mmol/L K 3.2 (L) 3.5 - 5.0 mmol/L CL 107 98 - 108 mmol/L CO2 TOTAL 30 23 - 31 mmol/L AGAP 1 (L) 2 - 16 BUN 18 7 - 23 mg/dL GLUCOSE 128 (H) 70 - 110 mg/dL CREATININE 0.60 0.50 - 1.04 mg/dL CALCIUM 7.5 (L) 8.6 - 10.6 mg/dL eGFR Calculation (Non-) 105.0 mL/min/1.73m2 eGFR Calculation () 127.2 mL/min/1.73m2 AMMONIA, PLASMA Collection Time: 09/24/20 7:17 AM Result Value Ref Range AMMONIA 80 (H) 9 - 33 umol/L CBC WITHOUT DIFF Collection Time: 09/24/20 7:17 AM Result Value Ref Range WBC 4.95 4.30 - 11.10 10*3/L RBC 3.32 (L) 3.93 - 5.25 10*6/L HGB 9.2 (L) 11.6 - 15.0 g/dL HCT 30.0 (L) 35.7 - 45.2 % MCH 27.7 25.9 - 32.8 pg MCV 90.4 80.6 - 95.5 fL MCHC 30.7 (L) 31.6 - 35.1 g/dL PLT 63 (L) 166 - 358 10*3/L MPV 10.5 9.5 - 12.9 fL RDW-CV 18.4 (H) 12.0 - 15.5 % RDW-SD 58.6 (H) 39.0 - 49.9 fL NRBC x10^3 <0.01 10*3/L NRBC/100 WBC 0.0 0.0 - 10.0 /100 WBCs IPF % 2.2 1.3 - 7.7 % Lactic Acid Whole Blood Collection Time: 09/24/20 7:31 AM Result Value Ref Range LACTIC ACID 1.69 mmol/L Abdominal 1 View - To Confirm Nasogastric Tube Placement. Result Date: 09/22/2020 Tip of the Dobbhoff tube is at the gastroesophageal junction and should be advanced Xr Kub Result Date: 09/23/2020 1. Tip of the NG tube is in satisfactory position Xr Kub Result Date: 09/23/2020 Limited exam due to patient motion. The NG tube appears to terminate in the distal stomach. RL: [id number] AFC: [id number] ENT MEDICATIONS - reviewed. Current Facility-Administered Medications Medication Dose Route Frequency Last Rate Last Admin lactulose (CEPHULAC) solution 30 mL 30 mL Oral Q8H 30 mL at 09/24/20 0516 octreotide (SANDOSTATIN) 1,250 mcg in NaCl 0.9% (NS) 250 mL infusion 50 mcg/hr IV Infusion CONTINUOUS 10 mL/hr at 09/24/20 0406 50 mcg/hr at 09/24/20 0406 pantoprazole (PROTONIX) 40 mg in NaCl 0.9% (NS) 100 mL MINI-BAG 40 mg IV Piggyback Q12HA1 40 mg at 09/24/20 0029 cefTRIAXone (ROCEPHIN) 1,000 mg in NaCl 0.9% (NS) 50 mL MINI-BAG 1,000 mg IV Piggyback Q24H ABX 1,000 mg at 09/23/20 0925 D5W IV infusion 1,000 mL 1,000 mL IV Infusion CONTINUOUS 75 mL/hr at 09/24/20 0029 1,000 mL at 09/24/20 0029 dextrose 50 % in water (D50W) injection 25 mL 25 mL Slow IV Push PRN glucagon (GLUCAGEN DIAGNOSTIC KIT) injection 1 mg 1 mg Intramuscular PRN rifAXIMin (XIFAXAN) tablet 550 mg 550 mg Oral BID 550 mg at 09/23/20 09 ASSESSMENT/PLAN Lorena Hansen is a 50 year old female admitted to the hospital with: More awake and alert Follows commands Lactulose GI and card on board Patient wants to leave AMA Ceftriaxone for UTI Alondra Mendez MD Cheryl Grissom MD - 09/24/2020 9:17 AM CST Cardiology Progress Note Date of Service: 09/24/20 SUBJECTIVE: Pt denies CP/SOB/Palpitations. CURRENT MEDICATIONS: Current Facility-Administered Medications: lactulose (CEPHULAC) solution 30 mL, 30 mL, Oral, Q8H, Alondra Mendez MD, 30 mL at 09/24/20 0516 octreotide (SANDOSTATIN) 1,250 mcg in NaCl 0.9% (NS) 250 mL infusion, 50 mcg/hr, IV Infusion, CONTINUOUS, Jacob Braden MD, Last Rate: 10 mL/hr at 09/24/20 0406, 50 mcg/hr at 09/24/20 0406 pantoprazole (PROTONIX) 40 mg in NaCl 0.9% (NS) 100 mL MINI-BAG, 40 mg, IV Piggyback, Q12HA1, Jacob Braden MD, 40 mg at 09/24/20 0029 cefTRIAXone (ROCEPHIN) 1,000 mg in NaCl 0.9% (NS) 50 mL MINI-BAG, 1,000 mg, IV Piggyback, Q24H ABX, Alondra Mendez MD, 1,000 mg at 09/23/20924 D5W IV infusion 1,000 mL, 1,000 mL, IV Infusion, CONTINUOUS, Alondra Mendez MD, Last Rate: 75 mL/hrat 09/24/2028, 1,000 mL at 09/24/2028 dextrose 50 % in water (D50W) injection 25 mL, 25 mL, Slow IV Push, PRN, Alondra Mendez MD glucagon (GLUCAGEN DIAGNOSTIC KIT) injection 1 mg, 1 mg, Intramuscular, PRN, Alondra Mendez MD rifAXIMin (XIFAXAN) tablet 550 mg, 550 mg, Oral, BID, Alondra Mendez MD, 550 mg at 09/23/20924 PHYSICAL EXAM: Vitals: 09/24/20 0530 09/24/20 0600 09/24/20 0609/24/20 0800 BP: 124/80 (!) 159/93 (!) 153/95 Pulse: 97 85 74 Resp: (!) 153 17 12 Temp: 36.6 C (97.9 F) TempSrc: Axillary SpO2: 95% 93% Weight: Height: Intake/Output Summary (Last 24 hours) at 09/24/2020917 Last data filed at 09/24/2020 0400 Gross per 24 hour Intake 1246 ml Output 1030 ml Net 216 ml General: Well Developed Well Nourished ENT: Oral mucosa is moist. NECK: No JVD, No bruits LUNGS: Clear to auscultation bilaterally CV: S1, S2 regular ABD: Soft EXT: No clubbing,cyanosis, edema LABS/IMAGING REVIEWED Recent Results (from the past 24 hour(s)) BASIC METABOLIC PANEL (NA, K, CL, CO2, GLUCOSE, BUN, CREATININE, CA) Collection Time: 09/24/20 7:17 AM Result Value Ref Range NA 138 135 - 145 mmol/L K 3.2 (L) 3.5 - 5.0 mmol/L CL 107 98 - 108 mmol/L CO2 TOTAL 30 23 - 31 mmol/L AGAP 1 (L) 2 - 16 BUN 18 7 - 23 mg/dL GLUCOSE 128 (H) 70 - 110 mg/dL CREATININE 0.60 0.50 - 1.04 mg/dL CALCIUM 7.5 (L) 8.6 - 10.6 mg/dL eGFR Calculation (Non-) 105.0 mL/min/1.73m2 eGFR Calculation () 127.2 mL/min/1.73m2 AMMONIA, PLASMA Collection Time: 09/24/20 7:17 AM Result Value Ref Range AMMONIA 80 (H) 9 - 33 umol/L CBC WITHOUT DIFF Collection Time: 09/24/20 7:17 AM Result Value Ref Range WBC 4.95 4.30 - 11.10 10*3/L RBC 3.32 (L) 3.93 - 5.25 10*6/L HGB 9.2 (L) 11.6 - 15.0 g/dL HCT 30.0 (L) 35.7 - 45.2 % MCH 27.7 25.9 - 32.8 pg MCV 90.4 80.6 - 95.5 fL MCHC 30.7 (L) 31.6 - 35.1 g/dL PLT 63 (L) 166 - 358 10*3/L MPV 10.5 9.5 - 12.9 fL RDW-CV 18.4 (H) 12.0 - 15.5 % RDW-SD 58.6 (H) 39.0 - 49.9 fL NRBC x10^3 <0.01 10*3/L NRBC/100 WBC 0.0 0.0 - 10.0 /100 WBCs IPF % 2.2 1.3 - 7.7 % Lactic Acid Whole Blood Collection Time: 09/24/20 7:31 AM Result Value Ref Range LACTIC ACID 1.69 mmol/L EKG personally reviewed : sinus, left axis deviation ASSESSMENT/PLAN Lorena Hansen is a 50 year old female patient with a history of has a past medical history of Liver cirrhosis, Multiple duodenal ulcers, Multiple gastric ulcers, and Transfusion history., admitted on 09/22/2020 for hepatic encephalopathy. 1. Hepatic encephalopathy: continue as per GI and Primary service. 2. UTI : continue as per Primary service. 3. Thrombocytopenia and Anemia : most likely related to Liver cirrhosis. Continue as per primary service. 4. Mild troponin elevation: myicardial stress; NOT suggestive of ME.: patient has no anginal symptoms. No further cardiac work up needed at this time. Thank you for involving us in the patient's care. Please feel free to call us with questions. Agapito Bolaños MD 09/24/2020 ENT DRIVING INSTRUCTOR Alondra Mendez MD - 09/23/2020 11:21 AM CST CLS Progress Note Date of Service: 09/23/2020 11:21 Chief Complaint: Confusion SUBJECTIVE: Encephalopathic PHYSICAL EXAM: Vitals: 09/23/20 0600 09/23/20 0700 09/23/20 0800 09/23/20 0900 BP: (!) 150/90 139/87 133/85 131/80 Pulse: 99 100 104 105 Resp: 14 13 13 13 Temp: TempSrc: SpO2: 100% 100% 98% 98% Weight: Height: Intake/Output Summary (Last 24 hours) at 09/23/2020 1121 Last data filed at 09/23/2020 0900 Gross per 24 hour Intake 1357.1 ml Output 525 ml Net 832.1 ml General: confused HEENT: pupils equal, round; Lungs: clear to auscultation bilaterally, no crackles, no wheezes Cardio: regular rate and rhythm, no murmurs, no gallops Abdomen: soft; non-tender; LABS/IMAGING - reviewed, pertinent results as below: Recent Results (from the past 48 hour(s)) CBC WITH DIFF Collection Time: 09/22/20 5:12 AM Result Value Ref Range WBC 11.45 (H) 4.30 - 11.10 10*3/L RBC 3.90 (L) 3.93 - 5.25 10*6/L HGB 10.7 (L) 11.6 - 15.0 g/dL HCT 34.6 (L) 35.7 - 45.2 % MCV 88.7 80.6 - 95.5 fL MCH 27.4 25.9 - 32.8 pg MCHC 30.9 (L) 31.6 - 35.1 g/dL RDW-SD 56.5 (H) 39.0 - 49.9 fL RDW-CV 18.5 (H) 12.0 - 15.5 % PLT 106 (L) 166 - 358 10*3/L MPV 11.3 9.5 - 12.9 fL NRBC/100 WBC 0.0 0.0 - 10.0 /100 WBCs NRBC x10^3 <0.01 10*3/L GRAN MAT (NEUT) % 73.2 % IMM GRAN % 1.60 % LYMPH % 15.5 % MONO % 7.9 % EOS % 1.0 % BASO % 0.8 % GRAN MAT x10^3(ANC) 8.39 (H) 1.88 - 7.09 10*3/uL IMM GRAN x10^3 0.18 (H) 0.00 - 0.06 10*3/uL LYMPH x10^3 1.77 1.32 - 3.29 10*3/uL MONO x10^3 0.91 0.33 - 0.92 10*3/uL EOS x10^3 0.11 0.03 - 0.39 10*3/uL BASO x10^3 0.09 (H) 0.01 - 0.07 10*3/uL COMP. METABOLIC PANEL (68832) Collection Time: 09/22/20 5:12 AM Result Value Ref Range NA 140 135 - 145 mmol/L K 3.7 3.5 - 5.0 mmol/L CL 110 (H) 98 - 108 mmol/L CO2 TOTAL 22 (L) 23 - 31 mmol/L AGAP 8 2 - 16 BUN 22 7 - 23 mg/dL GLUCOSE 49 (LL) 70 - 110 mg/dL CREATININE 0.79 0.50 - 1.04 mg/dL TOTAL BILI 4.1 (H) 0.1 - 1.1 mg/dL CALCIUM 8.4 (L) 8.6 - 10.6 mg/dL T PROTEIN 5.7 (L) 6.3 - 8.2 g/dL ALBUMIN 2.4 (L) 3.5 - 5.0 g/dL ALK PHOS 91 34 - 122 U/L ALTv 72 (H) 5 - 35 U/L AST(SGOT) 166 (H) 13 - 40 U/L eGFR Calculation (Non-) 76.4 mL/min/1.73m2 eGFR Calculation () 92.6 mL/min/1.73m2 N-TERMINAL PRO-BNP Collection Time: 09/22/20 5:12 AM Result Value Ref Range NT-proBNP 544 (H) <=125 pg/mL TROPONIN I Collection Time: 12/07/20 5:12 AM Result Value Ref Range TROPONIN I 0.171 (H) <=0.034 ng/mL AMMONIA, PLASMA Collection Time: 09/22/20 5:13 AM Result Value Ref Range AMMONIA 109 (H) 9 - 33 umol/L COVID-19 (ID NOW RAPID TESTING) Collection Time: 09/22/20 5:15 AM Specimen: NASOPHARYNGEAL SWAB Result Value Ref Range SARS-CoV-2 Rapid ID NOW Not Detected Not Detected LAB ONLY COVID INTERPRETATION Collection Time: 09/22/20 5:15 AM Specimen: NASOPHARYNGEAL SWAB Result Value Ref Range COVID DMT Interpretation Interpretation/Recommendations: Molecular NAAT Tests for Active Infection with the SARS-CoV-2 Virus: This result indicates that the patient has tested negative on one occasion for the SARS-CoV-2 virus that causes COVID-19 illness. This most likely indicates that the patient does not have an active infection with the SARS-CoV-2 virus. However, infection is not completely ruled out as the false negative rate for molecular NAAT testing using a nasopharyngeal sample can be up to 30%, mostly dependent onthe timing of sample collection in relation to illness onset and any deficiencies in sampling techniques. If the patient continues to have persistent or worsening symptoms concerning for COVID-19 illness, a repeat NAAT test (PCR, Rapid ID Now, etc.) should be performed, at which time the SARS-CoV-2 virus - if present - may have reached a detectable viral load (usually peaking by the end of the first week of symptoms). Tests for IgM and/or IgG Antibodies to SARS-CoV-2 Virus: Testing for IgM and IgG antibodies 1-3 weeks after illness onset will indicate whether the patient has produced antibodies to the virus. At this time, it is not known if the production of antibodies - specifically IgG antibodies - indicates whether the patient is immune to future infections with the SARS-CoV-2 virus. Interpretation Result Comments: These interpretation comments are based upon aggregate COVID-19 test results pooled from [facility]. They apply to the following tests offered at [facility] and assume the acceptable specimen type(s) were used: A. Tests for the Identification of SARS-CoV-2 RNA (Molecular NAAT Tests): - SARS-CoV-2 PCR assays including [place] Aptima, [place] Fusion, Farrell RealTime, and [employer] Xpert Xpress. - SARS-CoV-2 Rapid ID NOW by the ID NOW assay. B. Tests for the Identification of SARS-CoV-2 Antibodies: - Chemiluminescent immunoassays including Access SARS-CoV-2 IgM (DXI 600), Harvest PowerS Wbpi-CBXI-VaQ-2 IgG (Vitros 5600 and Vitros 3600), and Farrell SARS-CoV-2 IgG (POWER BUILDER DEVELOPER I System). These interpretations are autopopulated into [employer] based on computerized algorithms matching an interpretation code to the patient's set of test results, and a clinical pathologist evaluates the comments for accuracy. However, these comments do not consider testing a patient may have had outside of the[facility] system. If results for COVID-19 infection continue to be negative in the context of a suspectedviral respiratory illness, it is possible the patient may have an infection with another respiratoryvirus. Influenza testing and a respiratory pathogen panel if clinically indicated may be beneficial in this setting. If there continues to be a high degree of clinical suspicion for COVID-19 illness despite multiple negative tests on nasopharyngeal specimens, then it may be necessary to test the patient for the SARS-CoV-2 virus using lower respiratory tract samples (such as sputum, bronchoalveolar lavage fluid (BAL), tracheal aspirate, etc.). COVID Results SARS-CoV-2 Rapid ID NOW (no units) Date Value 09/22/2020 Not Detected Lactic Acid Whole Blood Collection Time: 09/22/20 5:57 AM Result Value Ref Range LACTIC ACID 2.54 mmol/L POCT GLUCOSE (AUTOMATED) Collection Time: 09/22/20 6:10 AM Result Value Ref Range POCT GLU 47 (LL) 70 - 110 mg/dL URINALYSIS Collection Time: 09/22/20 6:51 AM Result Value Ref Range APPEARANCE Cloudy (A) Clear COLOR Yasmine (A) Yellow PH 5.0 4.8 - 8.0 SP GRAVITY 1.018 1.003 - 1.030 GLU U QUAL Normal Normal BLOOD 2+ (A) Negative KETONES 5 mg/dL (A) Negative PROTEIN 30 mg/dL (A) Negative UROBILIN 4.0 mg/dL (A) Normal BILIRUBIN Negative Negative NITRITE Positive (A) Negative LEUK DIRK 500/uL (A) Negative RBC/HPF 44 (H) 0 - 3 HPF WBC/HPF >182 (H) 0 - 5 HPF BACTERIA Many (A) Negative MUCOUS Slight (A) Negative LPF AMORPHOUS Rare Rare HPF SQ EPITH 1 HPF WBC CLUMPS 54 (H) <=1 HPF URINE CULTURE Collection Time: 09/22/20 6:51 AM Specimen: URINE, CATHETERIZED Result Value Ref Range URINE CULTURE >100,000 CFU/mL Escherichia coli PROTHROMBIN TIME / INR Collection Time: 09/22/20 7:15 AM Result Value Ref Range PROTIME PATIENT 17.2 (H) 12.0 - 14.7 Seconds INR 1.5 POCT GLUCOSE (AUTOMATED) Collection Time: 09/22/20 7:44 AM Result Value Ref Range POCT GLU 76 70 - 110 mg/dL POCT GLUCOSE (AUTOMATED) Collection Time: 09/22/20 10:16 AM Result Value Ref Range POCT GLU 89 70 - 110 mg/dL POCT GLUCOSE (AUTOMATED) Collection Time: 09/22/20 4:38 PM Result Value Ref Range POCT GLU 86 70 - 110 mg/dL POCT GLUCOSE (AUTOMATED) Collection Time: 09/22/20 6:24 PM Result Value Ref Range POCT GLU 88 70 - 110 mg/dL POCT GLUCOSE (AUTOMATED) Collection Time: 09/22/20 7:32 PM Result Value Ref Range POCT GLU 95 70 - 110 mg/dL POCT GLUCOSE (AUTOMATED) Collection Time: 09/22/20 9:07 PM Result Value Ref Range POCT GLU 92 70 - 110 mg/dL POCT GLUCOSE (AUTOMATED) Collection Time: 09/22/20 10:04 PM Result Value Ref Range POCT GLU 94 70 - 110 mg/dL POCT GLUCOSE (AUTOMATED) Collection Time: 09/22/20 11:58 PM Result Value Ref Range POCT GLU 108 70 - 110 mg/dL PROTHROMBIN TIME / INR Collection Time: 09/23/20 2:17 AM Result Value Ref Range PROTIME PATIENT 17.1 (H) 10.1 - 12.6 Seconds INR 1.5 CBC WITH DIFF Collection Time: 09/23/20 2:47 AM Result Value Ref Range WBC 7.46 4.30 - 11.10 10*3/L RBC 3.38 (L) 3.93 - 5.25 10*6/L HGB 9.4 (L) 11.6 - 15.0 g/dL HCT 30.3 (L) 35.7 - 45.2 % MCV 89.6 80.6 - 95.5 fL MCH 27.8 25.9 - 32.8 pg MCHC 31.0 (L) 31.6 - 35.1 g/dL RDW-SD 57.6 (H) 39.0 - 49.9 fL RDW-CV 18.3 (H) 12.0 - 15.5 % PLT 69 (L) 166 - 358 10*3/L MPV 11.1 9.5 - 12.9 fL IPF % 1.6 1.3 - 7.7 % NRBC/100 WBC 0.0 0.0 - 10.0 /100 WBCs NRBC x10^3 <0.01 10*3/L GRAN MAT (NEUT) % 64.7 % IMM GRAN % 0.50 % LYMPH % 22.7 % MONO % 9.5 % EOS % 1.9 % BASO % 0.7 % GRAN MAT x10^3(ANC) 4.83 1.88 - 7.09 10*3/uL IMM GRAN x10^3 0.04 0.00 - 0.06 10*3/uL LYMPH x10^3 1.69 1.32 - 3.29 10*3/uL MONO x10^3 0.71 0.33 - 0.92 10*3/uL EOS x10^3 0.14 0.03 - 0.39 10*3/uL BASO x10^3 0.05 0.01 - 0.07 10*3/uL BASIC METABOLIC PANEL (NA, K, CL, CO2, GLUCOSE, BUN, CREATININE, CA) Collection Time: 09/23/20 2:47 AM Result Value Ref Range NA 139 135 - 145 mmol/L K 2.8 (LL) 3.5 - 5.0 mmol/L CL 110 (H) 98 - 108 mmol/L CO2 TOTAL 28 23 - 31 mmol/L AGAP 1 (L) 2 - 16 BUN 24 (H) 7 - 23 mg/dL GLUCOSE 101 70 - 110 mg/dL CREATININE 0.79 0.50 - 1.04 mg/dL CALCIUM 7.7 (L) 8.6 - 10.6 mg/dL eGFR Calculation (Non-) 76.4 mL/min/1.73m2 eGFR Calculation () 92.6 mL/min/1.73m2 AMMONIA, PLASMA Collection Time: 09/23/20 4:02 AM Result Value Ref Range AMMONIA 52 (H) 9 - 33 umol/L Abdominal 1 View - To Confirm Nasogastric Tube Placement. Result Date: 09/22/2020 Tip of the Dobbhoff tube is at the gastroesophageal junction and should be advanced Xr Chest 1 Vw Result Date: 09/22/2020 Changes of mild pulmonary vascular congestion with trace left-sided pleural effusion. A round opacity superimposed over inferior angle of the right scapula. Recommend correlation with TRAN view to rule out true lesions versus summation of shadows. Preliminary Report Dictated by Resident: Asif Thompson I, Calista Mattson MD., have reviewed this study and agree with the above report. Ct Head Wo Contrast Result Date: 09/22/2020 No acute intracranial hemorrhage or mass affect. Preliminary Report Dictated by Resident: Anastacia Tovar I, Frnac Nina MD., have reviewed this study and agree with the above report. Xr Kub Result Date: 09/23/2020 1. Tip of the NG tube is in satisfactory position Xr Kub Result Date: 09/23/2020 Limited exam due to patient motion. The NG tube appears to terminate in the distal stomach. RL: [id number] AFC: [id number] ENT MEDICATIONS - reviewed. Current Facility-Administered Medications Medication Dose Route Frequency Last Rate Last Admin lactulose (CEPHULAC) solution 30 mL 30 mL Oral Q4H octreotide (SANDOSTATIN) 1,250 mcg in NaCl 0.9% (NS) 250 mL infusion 50 mcg/hr IV Infusion CONTINUOUS 10 mL/hr at 09/23/20 0226 50 mcg/hr at 09/23/20 0226 pantoprazole (PROTONIX) 40 mg in NaCl 0.9% (NS) 100 mL MINI-BAG 40 mg IV Piggyback Q12HA1 40 mg at 09/23/20 0217 cefTRIAXone (ROCEPHIN) 1,000 mg in NaCl 0.9% (NS) 50 mL MINI-BAG 1,000 mg IV Piggyback Q24H ABX 1,000 mg at 09/23/20 0925 D5W IV infusion 1,000 mL 1,000 mL IV Infusion CONTINUOUS dextrose 50 % in water (D50W) injection 25 mL 25 mL Slow IV Push PRN glucagon (GLUCAGEN DIAGNOSTIC KIT) injection 1 mg 1 mg Intramuscular PRN rifAXIMin (XIFAXAN) tablet 550 mg 550 mg Oral BID 550 mg at 09/23/20 0925 ASSESSMENT/PLAN Lorena Hansen is a 50 year old female admitted to the hospital with: Hepatic encephalopathy UTI Thrombocytopenia Anemia Hypoglycemia PLAN: Lactulose, had bowel movement will continue Rifaximin GI consult appreciated Watch PLT number and no transfusion needed now Keep HGB> 7. No active bleed Check BS q2H and start D5W as needed DVT prophylaxis Elevated trop, seen by cardiology and no intervention needed Alondra Mendez MD arolina Salgado RN - 09/23/2020 10:49 AM CSTCARE MANAGEMENT NOTE Pt not alert to answer SFA questions, based on chart review she was in [facility] during [place], had a few visits to ED. Looks like they have not been following up with [facility] for appts, none seen. Left voice message for boyfriend listed to try to complete SFA. Asked for call back. Referred to P. Carolina Salgado RN, BSN, CRRN [employer] [facility] Rayne ENT DRIVING INSTRUCTOR documented in this encounter H&P Notes Alondra Mendez MD - 09/22/2020 1:23 PM CST MEDICINE CLS ADMIT H&P PCP: PATIENT DOES NOT HAVE A PCP Date of Service: 09/22/2020 CHIEF COMPLAINT: Altered mental status HISTORY OF PRESENT ILLNESS 50 year old female patient with PMH of liver cirrhosis secondary to alcoholism presented to outside facility with confusion and altered mental status. No fever reported, no seizures, no vomiting and obvious upper or lower GI bleed. History is very limited due to patient's mental status PAST MEDICAL HISTORY Past Medical History: Diagnosis Date Liver cirrhosis Alcoholic Multiple duodenal ulcers Multiple gastric ulcers Transfusion history Past Surgical History: Procedure Laterality Date CHOLECYSTECTOMY ESOPHAGOGASTRODUODENOSCOPY N/A 12/26/2017 Surgeon: Eliceo Clayton MD; Location: [facility]oscopy ([facility]) OR Location ESOPHAGOGASTRODUODENOSCOPY N/A 02/06/2018 Surgeon: Fracisco Wilson MD; Location: Endoscopy ([facility]) OR Location ESOPHAGOGASTRODUODENOSCOPY N/A 09/26/2018 Surgeon: Eliceo Clayton MD; Location: Endoscopy ([facility]) OR Location TUBAL LIGATION Family History Problem Relation Age of Onset Cancer Mother Cancer Maternal Grandmother ALLERGIES Allergies Allergen Reactions Zofran [Ondansetron Hcl (Pf)] Hives MEDICATIONS No current facility-administered medications on file prior to encounter. Current Outpatient Medications on File Prior to Encounter Medication Sig Dispense Refill lactulose 10 gram/15 mL oral solution Take 30 mL by mouth daily. furosemide 20 mg tablet Take 1 tablet by mouth every morning. 30 tablet 0 rifAXIMin 200 mg tablet Take 3 tablets by mouth 2 (two) times daily. x 10 days HG 60 tablet 0 SOCIAL HISTORY Social History Socioeconomic History Marital status: Spouse name: Not on file Number of children: Not on file Years of education: Not on file Highest education level: Not on file Occupational History Not on file Social Needs Financial resource strain: Not on file Food insecurity Worry: Not on file Inability: Not on file Transportation needs Medical: Not on file Non-medical: Not on file Tobacco Use Smoking status: Former Smoker Smokeless tobacco: Never Used Tobacco comment: quit 18 yrs ago Substance and Sexual Activity Alcohol use: Yes Comment: Former Drug use: No Sexual activity: Not on file Lifestyle Physical activity Days per week: Not on file Minutes per session: Not on file Stress: Not on file Relationships Social connections Talks on phone: Not on file Gets together: Not on file Attends church service: Not on file Active member of club or organization: Not on file Attends meetings of clubs or organizations: Not on file Relationship status: Not on file Intimate partner violence Fear of current or ex partner: Not on file Emotionally abused: Not on file Physically abused: Not on file Forced sexual activity: Not on file Other Topics Concern Not on file Social History Narrative Not on file REVIEW OF SYSTEMS Not obtainable PHYSICAL EXAMINATION Vitals: 09/22/20 1045 09/22/20 1100 09/22/20 1115 09/22/20 1200 BP: 109/55 123/63 BP Location: Right arm Pulse: 99 106 Resp: 14 13 Temp: 37.1 C (98.7 F) TempSrc: Axillary SpO2: 95% 99% 100% Weight: Height: O2 sat: SpO2 readings for the past 24 hrs: SpO2 09/22/20 0505 97 % 09/22/20 0700 99 % 09/22/20 0800 99 % 09/22/20 1015 94 % 09/22/20 1029 97 % 09/22/20 1045 95 % 09/22/20 1100 99 % 09/22/20 1115 100 % I & O: Intake/Output Summary (Last 24 hours) at 09/22/2020 1323 Last data filed at 09/22/2020 0617 Gross per 24 hour Intake 50 ml Output Net 50 ml Pain Scale: General: sleepy and does not follow commands HEENT: normocephalic atraumatic, pupils equal, round, reactive to light Neck: supple, no lymphadenopathy, no bruits, no JVD Lungs: clear to auscultation bilaterally, no crackles, no wheezes, cough is strong and effective Cardio: regular rate and rhythm, no murmurs, no gallops Abdomen: soft; non-tender; distended; normoactive bowel sounds Extremities: no clubbing, cyanosis, or edema Skin: no rashes LABS - reviewed pertinent labs as below: Recent Results (from the past 48 hour(s)) CBC WITH DIFF Collection Time: 09/22/20 5:12 AM Result Value Ref Range WBC 11.45 (H) 4.30 - 11.10 10*3/L RBC 3.90 (L) 3.93 - 5.25 10*6/L HGB 10.7 (L) 11.6 - 15.0 g/dL HCT 34.6 (L) 35.7 - 45.2 % MCV 88.7 80.6 - 95.5 fL MCH 27.4 25.9 - 32.8 pg MCHC 30.9 (L) 31.6 - 35.1 g/dL RDW-SD 56.5 (H) 39.0 - 49.9 fL RDW-CV 18.5 (H) 12.0 - 15.5 % PLT 106 (L) 166 - 358 10*3/L MPV 11.3 9.5 - 12.9 fL NRBC/100 WBC 0.0 0.0 - 10.0 /100 WBCs NRBC x10^3 <0.01 10*3/L GRAN MAT (NEUT) % 73.2 % IMM GRAN % 1.60 % LYMPH % 15.5 % MONO % 7.9 % EOS % 1.0 % BASO % 0.8 % GRAN MAT x10^3(ANC) 8.39 (H) 1.88 - 7.09 10*3/uL IMM GRAN x10^3 0.18 (H) 0.00 - 0.06 10*3/uL LYMPH x10^3 1.77 1.32 - 3.29 10*3/uL MONO x10^3 0.91 0.33 - 0.92 10*3/uL EOS x10^3 0.11 0.03 - 0.39 10*3/uL BASO x10^3 0.09 (H) 0.01 - 0.07 10*3/uL COMP. METABOLIC PANEL (76873) Collection Time: 09/22/20 5:12 AM Result Value Ref Range NA 140 135 - 145 mmol/L K 3.7 3.5 - 5.0 mmol/L CL 110 (H) 98 - 108 mmol/L CO2 TOTAL 22 (L) 23 - 31 mmol/L AGAP 8 2 - 16 BUN 22 7 - 23 mg/dL GLUCOSE 49 (LL) 70 - 110 mg/dL CREATININE 0.79 0.50 - 1.04 mg/dL TOTAL BILI 4.1 (H) 0.1 - 1.1 mg/dL CALCIUM 8.4 (L) 8.6 - 10.6 mg/dL T PROTEIN 5.7 (L) 6.3 - 8.2 g/dL ALBUMIN 2.4 (L) 3.5 - 5.0 g/dL ALK PHOS 91 34 - 122 U/L ALTv 72 (H) 5 - 35 U/L AST(SGOT) 166 (H) 13 - 40 U/L eGFR Calculation (Non-) 76.4 mL/min/1.73m2 eGFR Calculation () 92.6 mL/min/1.73m2 N-TERMINAL PRO-BNP Collection Time: 09/22/20 5:12 AM Result Value Ref Range NT-proBNP 544 (H) <=125 pg/mL TROPONIN I Collection Time: 09/22/20 5:12 AM Result Value Ref Range TROPONIN I 0.171 (H) <=0.034 ng/mL AMMONIA, PLASMA Collection Time: 09/22/20 5:13 AM Result Value Ref Range AMMONIA 109 (H) 9 - 33 umol/L COVID-19 (ID NOW RAPID TESTING) Collection Time: 09/22/20 5:15 AM Specimen: NASOPHARYNGEAL SWAB Result Value Ref Range SARS-CoV-2 Rapid ID NOW Not Detected Not Detected Lactic Acid Whole Blood Collection Time: 09/22/20 5:57 AM Result Value Ref Range LACTIC ACID 2.54 mmol/L POCT GLUCOSE (AUTOMATED) Collection Time: 09/22/20 6:10 AM Result Value Ref Range POCT GLU 47 (LL) 70 - 110 mg/dL URINALYSIS Collection Time: 09/22/20 6:51 AM Result Value Ref Range APPEARANCE Cloudy (A) Clear COLOR Yasmine (A) Yellow PH 5.0 4.8 - 8.0 SP GRAVITY 1.018 1.003 - 1.030 GLU U QUAL Normal Normal BLOOD 2+ (A) Negative KETONES 5 mg/dL (A) Negative PROTEIN 30 mg/dL (A) Negative UROBILIN 4.0 mg/dL (A) Normal BILIRUBIN Negative Negative NITRITE Positive (A) Negative LEUK DIRK 500/uL (A) Negative RBC/HPF 44 (H) 0 - 3 HPF WBC/HPF >182 (H) 0 - 5 HPF BACTERIA Many (A) Negative MUCOUS Slight (A) Negative LPF AMORPHOUS Rare Rare HPF SQ EPITH 1 HPF WBC CLUMPS 54 (H) <=1 HPF PROTHROMBIN TIME / INR Collection Time: 09/22/20 7:15 AM Result Value Ref Range PROTIME PATIENT 17.2 (H) 12.0 - 14.7 Seconds INR 1.5 POCT GLUCOSE (AUTOMATED) Collection Time: 09/22/20 7:44 AM Result Value Ref Range POCT GLU 76 70 - 110 mg/dL POCT GLUCOSE (AUTOMATED) Collection Time: 09/22/20 10:16 AM Result Value Ref Range POCT GLU 89 70 - 110 mg/dL IMAGING - reviewed, pertinent results as below: Xr Chest 1 Vw Result Date: 09/22/2020 Changes of mild pulmonary vascular congestion with trace left-sided pleural effusion. A round opacity superimposed over inferior angle of the right scapula. Recommend correlation with TRAN view to rule out true lesions versus summation of shadows. Preliminary Report Dictated by Resident: Asif Thompson I, Calista Mattson MD., have reviewed this study and agree with the above report. Ct Head Wo Contrast Result Date: 09/22/2020 No acute intracranial hemorrhage or mass affect. Preliminary Report Dictated by Resident: Anastacia Tovar I, Franc Nina MD., have reviewed this study and agree with the above report. EKG: Hospital Encounter 09/22/20 EKG-12 LEAD ROUTINE ONCE EKG-12 LEAD ROUTINE ONCE ASSESSMENT/PLAN Lorena Hansen is a 50 year old female with PMH as listed above, admitted to the hospital with: Hepatic encephalopathy UTI Thrombocytopenia Anemia Hypoglycemia PLAN: Lactulose Rifaximin GI consult UA and urine culture Watch PLT number and no transfusion needed Keep HGB> 7. 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 No fever reported, no seizures, no vomiting and obvious upper or lower GI bleed. History is very limited due to patient's mental status PMH/PSH: Past Medical History: Diagnosis Date Liver cirrhosis Alcoholic Multiple duodenal ulcers Multiple gastric ulcers Transfusion history Past Surgical History: Procedure Laterality Date CHOLECYSTECTOMY ESOPHAGOGASTRODUODENOSCOPY N/A 12/26/2017 Surgeon: Eliceo Clayton MD; Location: Endoscopy ([facility]) OR Location ESOPHAGOGASTRODUODENOSCOPY N/A 02/06/2018 Surgeon: Fracisco Wilson MD; Location: Endoscopy ([facility]) OR Location ESOPHAGOGASTRODUODENOSCOPY N/A 09/26/2018 Surgeon: Eliceo Clayton MD; Location: Endoscopy ([facility]) OR Location TUBAL LIGATION PSH noted. GI and Nutrition Related Findings: Symptoms: N/A Difficulty: N/A GI tract alteration: N/A Alternative means of nutrition: N/A General: N/A Medications: I have reviewed the medications currently ordered in the EMR located under the medications andMAR tabs. Current medications include: Current Facility-Administered Medications: lactulose (CEPHULAC) solution 30 mL, 30 mL, Oral, Q8H, Alondra Mendez MD octreotide (SANDOSTATIN) 1,250 mcg in NaCl 0.9% (NS) 250 mL infusion, 50 mcg/hr, IV Infusion, CONTINUOUS, Jacob Braden MD, Last Rate: 10 mL/hr at 09/23/20 0226, 50 mcg/hr at 09/23/20 0226 pantoprazole (PROTONIX) 40 mg in NaCl 0.9% (NS) 100 mL MINI-BAG, 40 mg, IV Piggyback, Q12HA1, Jacob Braden MD, 40 mg at 09/23/20 1142 cefTRIAXone (ROCEPHIN) 1,000 mg in NaCl 0.9% (NS) 50 mL MINI-BAG, 1,000 mg, IV Piggyback, Q24H ABX, Alondra Mendez MD, 1,000 mg at 09/23/20 0925 D5W IV infusion 1,000 mL, 1,000 mL, IV Infusion, CONTINUOUS, Alondra Mendez MD, Last Rate: 75 mL/hrat 09/23/20 1142, 1,000 mL at 09/23/20 1142 dextrose 50 % in water (D50W) injection 25 mL, 25 mL, Slow IV Push, PRN, Alondra Mendez MD glucagon (GLUCAGEN DIAGNOSTIC KIT) injection 1 mg, 1 mg, Intramuscular, PRN, Alondra Mendez MD rifAXIMin (XIFAXAN) tablet 550 mg, 550 mg, Oral, BID, Alondra Mendez MD, 550 mg at 09/23/20 0925 Lab and Medical Test Results: NA (mmol/L) Date Value 09/23/2020 139 K (mmol/L) Date Value 09/23/2020 2.8 (LL) CALCIUM (mg/dL) Date Value 09/23/2020 7.7 (L) CL (mmol/L) Date Value 09/23/2020 110 (H) BUN (mg/dL) Date Value 09/23/2020 24 (H) CREATININE (mg/dL) Date Value 09/23/2020 0.79 GLUCOSE (mg/dL) Date Value 09/23/2020 101 CO2 TOTAL (mmol/L) Date Value 09/23/2020 28 ALBUMIN (g/dL) Date Value 09/22/2020 2.4 (L) T PROTEIN (g/dL) Date Value 09/22/2020 5.7 (L) TOTAL BILI (mg/dL) Date Value 09/22/2020 4.1 (H) BILI UNCON (mg/dL) Date Value 06/30/2020 1.6 (H) BILI CONJ (mg/dL) Date Value 06/30/2020 0.0 ALT(SGPT) (U/L) Date Value 09/26/2018 69 (H) ALTv (U/L) Date Value 09/22/2020 72 (H) AST(SGOT) (U/L) Date Value 09/22/2020 166 (H) ALK PHOS (U/L) Date Value 09/22/2020 91 Nutrition Assessment: Age: [age] year old Sex: female Ht: 162 cm / 5'3" Ht Readings from Last 3 Encounters: 09/22/20 1.62 m (5' 3.78") 05/11/19 1.626 m (5' 4") 04/27/19 1.651 m (5' 5") Current Wt: 66.6 kg/ 146 lb BMI: Body mass index is 25.38 kg/m. (Normal) Weight History: Wt Readings from Last 10 Encounters: 09/23/20 66.6 kg (146 lb 13.2 oz) 06/30/20 75.3 kg (166 lb 1.6 oz) 05/11/19 68 kg (150 lb) 04/27/19 68 kg (150 lb) 04/23/19 68 kg (150 lb) 09/27/18 83.5 kg (184 lb 1.6 oz) 02/22/18 74.4 kg (164 lb) 02/07/18 77 kg (169 lb 11.2 oz) 01/31/18 72.6 kg (160 lb) 01/26/18 72.6 kg (160 lb) Inflammatory Markers: Increased HR (>90) Current Dietary Order(s): NPO Except Meds Diet. EMR documented food allergies/intolerance/cultural preferences: [facility] Nutrition & Diet History: Unable to obtain full diet history as patient is AMS. Once patient's diet is advanced recommend Regular with sodium restriction. Will follow up. Estimated Daily Nutritional Needs: Calories: 1700 kcal/day = 25 kcal/kg current wt Protein: 12 % of kcal need/day = 53 g/day = 0.8 g/kg current wt Fluid: 1700 mL/day or per MD; adjust per acute needs Nutrition Diagnosis: Inadequate oral intake related to insufficient intake to meet daily needs as evidenced by current NPO status. Nutrition Plan of Care: Intervention(s): 1.Recommend not to exceed NPO longer than 3-5 days without planned nutrition intervention; Advance diet when medically appropriate and as tolerated by the Pt (Initial Goal: Clear Liquid > Full Liquid > GI Soft ([place])/Low Residue Diet). If unable to advance oral diet may need to consider alternate nutrition support due to prolonged NPO/inadequate oral intakes. Goal(s): 1. Patient will have diet order in place before NPO exceeds 5 days. D/C Planning: Pending Nutrition Monitoring and Evaluation: A registered dietitian will f/u as indicated to report nutrition related information and to revise the recommended nutrition intervention(s); please call with questions or concerns, thank-you. Lorena Judge RD, LD Clinical Dietitian RD Office: [id number] signed by Lorena Judge at 09/23/2020 2:50 PM Asael Dominguez MD - 09/23/2020 8:38 AM CSTAssociated Order(s): CONSULT GASTROENTEROLOGY Gastroenterology Consult Chief Complaint: AMS Referring Physician: Andrea Reason for Consult: confusion, cirrhosis Lorena Hansen is 50 year oldfemale who presents with the followin year-old witn EtOH cirrhosis presented to the hospital with confusion, and AMS likely muli factorial as she was not taking lactulose and was given valium en route. The patient previous was seen by [facility] hepatology but not recently. Last scope in 09/2018 Past Medical History: Diagnosis Date Liver cirrhosis Alcoholic Multiple duodenal ulcers Multiple gastric ulcers Transfusion history Past Surgical History: Procedure Laterality Date CHOLECYSTECTOMY ESOPHAGOGASTRODUODENOSCOPY N/A 12/26/2017 Surgeon: Eliceo Clayton MD; Location: [facility] ([facility]) OR Location ESOPHAGOGASTRODUODENOSCOPY N/A 02/06/2018 Surgeon: Fracisco Wilson MD; Location: [facility] ([facility]) OR Location ESOPHAGOGASTRODUODENOSCOPY N/A 09/26/2018 Surgeon: Eliceo Clayton MD; Location: Endoscopy ([facility]) OR Location TUBAL LIGATION Allergies Allergen Reactions Zofran [Ondansetron Hcl (Pf)] Hives Family History Problem Relation Age of Onset Cancer Mother Cancer Maternal Grandmother Social History Socioeconomic History Marital status: Spouse name: Not on file Number of children: Not on file Years of education: Not on file Highest education level: Not on file Occupational History Not on file Social Needs Financial resource strain: Not on file Food insecurity Worry: Not on file Inability: Not on file Transportation needs Medical: Not on file Non-medical: Not on file Tobacco Use Smoking status: Former Smoker Smokeless tobacco: Never Used Tobacco comment: quit 18 yrs ago Substance and Sexual Activity Alcohol use: Yes Comment: Former Drug use: No Sexual activity: Not on file Lifestyle Physical activity Days per week: Not on file Minutes per session: Not on file Stress: Not on file Relationships Social connections Talks on phone: Not on file Gets together: Not on file Attends church service: Not on file Active member of club or organization: Not on file Attends meetings of clubs or organizations: Not on file Relationship status: Not on file Intimate partner violence Fear of current or ex partner: Not on file Emotionally abused: Not on file Physically abused: Not on file Forced sexual activity: Not on file Other Topics Concern Not on file Social History Narrative Not on file Medications Scheduled Medicationspantoprazole (PROTONIX) IV Piggyback, 40 mg, Q12HA1 cefTRIAXone (ROCEPHIN) IV Piggyback, 1,000 mg, Q24H ABX lactulose, 30 mL, Q8H rifAXIMin, 550 mg, BID IV Medications/Dripsoctreotide (SANDOSTATIN) infusion, Last Rate: 50 mcg/hr (09/23/20 0226) D5W PRN Medicationsdextrose 50 % in water (D50W), 25 mL, PRN glucagon, 1 mg, PRN Review of Systems: Review of Systems All other systems reviewed and are negative. Objective Physical Exam: BP 133/85 | Pulse 104 | Temp 36.5 C (97.7 F) (Axillary) | Resp 13 | Ht 5' 3.78" (1.62 m) | Wt 146 lb 13.2 oz (66.6 kg) | SpO2 98% | BMI 25.38 kg/m Physical Exam Constitutional: She appears well-developed and well-nourished. HENT: Head: Normocephalic and atraumatic. Eyes: EOM are normal. Neck: Neck supple. Cardiovascular: Normal rate and regular rhythm. Pulmonary/Chest: Effort normal and breath sounds normal. Abdominal: Soft. There is abdominal tenderness. Neurological: She is alert. Skin: Skin is warm and dry. Labs/Radiology: Recent Results (from the past 48 hour(s)) CBC WITH DIFF Collection Time: 09/22/20 5:12 AM Result Value Ref Range WBC 11.45 (H) 4.30 - 11.10 10*3/L RBC 3.90 (L) 3.93 - 5.25 10*6/L HGB 10.7 (L) 11.6 - 15.0 g/dL HCT 34.6 (L) 35.7 - 45.2 % MCV 88.7 80.6 - 95.5 fL MCH 27.4 25.9 - 32.8 pg MCHC 30.9 (L) 31.6 - 35.1 g/dL RDW-SD 56.5 (H) 39.0 - 49.9 fL RDW-CV 18.5 (H) 12.0 - 15.5 % PLT 106 (L) 166 - 358 10*3/L MPV 11.3 9.5 - 12.9 fL NRBC/100 WBC 0.0 0.0 - 10.0 /100 WBCs NRBC x10^3 <0.01 10*3/L GRAN MAT (NEUT) % 73.2 % IMM GRAN % 1.60 % LYMPH % 15.5 % MONO % 7.9 % EOS % 1.0 % BASO % 0.8 % GRAN MAT x10^3(ANC) 8.39 (H) 1.88 - 7.09 10*3/uL IMM GRAN x10^3 0.18 (H) 0.00 - 0.06 10*3/uL LYMPH x10^3 1.77 1.32 - 3.29 10*3/uL MONO x10^3 0.91 0.33 - 0.92 10*3/uL EOS x10^3 0.11 0.03 - 0.39 10*3/uL BASO x10^3 0.09 (H) 0.01 - 0.07 10*3/uL COMP. METABOLIC PANEL (25943) Collection Time: 09/22/20 5:12 AM Result Value Ref Range NA 140 135 - 145 mmol/L K 3.7 3.5 - 5.0 mmol/L CL 110 (H) 98 - 108 mmol/L CO2 TOTAL 22 (L) 23 - 31 mmol/L AGAP 8 2 - 16 BUN 22 7 - 23 mg/dL GLUCOSE 49 (LL) 70 - 110 mg/dL CREATININE 0.79 0.50 - 1.04 mg/dL TOTAL BILI 4.1 (H) 0.1 - 1.1 mg/dL CALCIUM 8.4 (L) 8.6 - 10.6 mg/dL T PROTEIN 5.7 (L) 6.3 - 8.2 g/dL ALBUMIN 2.4 (L) 3.5 - 5.0 g/dL ALK PHOS 91 34 - 122 U/L ALTv 72 (H) 5 - 35 U/L AST(SGOT) 166 (H) 13 - 40 U/L eGFR Calculation (Non-) 76.4 mL/min/1.73m2 eGFR Calculation () 92.6 mL/min/1.73m2 N-TERMINAL PRO-BNP Collection Time: 09/22/20 5:12 AM Result Value Ref Range NT-proBNP 544 (H) <=125 pg/mL TROPONIN I Collection Time: 09/22/20 5:12 AM Result Value Ref Range TROPONIN I 0.171 (H) <=0.034 ng/mL AMMONIA, PLASMA Collection Time: 09/22/20 5:13 AM Result Value Ref Range AMMONIA 109 (H) 9 - 33 umol/L COVID-19 (ID NOW RAPID TESTING) Collection Time: 09/22/20 5:15 AM Specimen: NASOPHARYNGEAL SWAB Result Value Ref Range SARS-CoV-2 Rapid ID NOW Not Detected Not Detected LAB ONLY COVID INTERPRETATION Collection Time: 09/22/20 5:15 AM Specimen: NASOPHARYNGEAL SWAB Result Value Ref Range COVID DMT Interpretation Interpretation/Recommendations: Molecular NAAT Tests for Active Infection with the SARS-CoV-2 Virus: This result indicates that the patient has tested negative on one occasion for the SARS-CoV-2 virus that causes COVID-19 illness. This most likely indicates that the patient does not have an active infection with the SARS-CoV-2 virus. However, infection is not completely ruled out as the false negative rate for molecular NAAT testing using a nasopharyngeal sample can be up to 30%, mostly dependent onthe timing of sample collection in relation to illness onset and any deficiencies in sampling techniques. If the patient continues to have persistent or worsening symptoms concerning for COVID-19 illness, a repeat NAAT test (PCR, Rapid ID Now, etc.) should be performed, at which time the SARS-CoV-2 virus - if present - may have reached a detectable viral load (usually peaking by the end of the first week of symptoms). Tests for IgM and/or IgG Antibodies to SARS-CoV-2 Virus: Testing for IgM and IgG antibodies 1-3 weeks after illness onset will indicate whether the patient has produced antibodies to the virus. At this time, it is not known if the production of antibodies - specifically IgG antibodies - indicates whether the patient is immune to future infections with the SARS-CoV-2 virus. Interpretation Result Comments: These interpretation comments are based upon aggregate COVID-19 test results pooled from [facility]. They apply to the following tests offered at [facility] and assume the acceptable specimen type(s) were used: A. Tests for the Identification of SARS-CoV-2 RNA (Molecular NAAT Tests): - SARS-CoV-2 PCR assays including [place] Aptima, [place] Fusion, Farrell RealTime, and [employer] for [employer] Xpert Xpress. - SARS-CoV-2 Rapid ID NOW by the ID NOW assay. B. Tests for the Identification of SARS-CoV-2 Antibodies: - Chemiluminescent immunoassays including Access SARS-CoV-2 IgM (DXI 600), VITROS Smso-IOWV-[id number]-2 IgG (Vitros 5600 and Vitros 3600), and Farrell SARS-CoV-2 IgG (POWER BUILDER DEVELOPER I System). These interpretations are autopopulated into [employer] based on computerized algorithms matching an interpretation code to the patient's set of test results, and a clinical pathologist evaluates the comments for accuracy. However, these comments do not consider testing a patient may have had outside of the[facility] system. If results for COVID-19 infection continue to be negative in the context of a suspectedviral respiratory illness, it is possible the patient may have an infection with another respiratoryvirus. Influenza testing and a respiratory pathogen panel if clinically indicated may be beneficial in this setting. If there continues to be a high degree of clinical suspicion for COVID-19 illness despite multiple negative tests on nasopharyngeal specimens, then it may be necessary to test the patient for the SARS-CoV-2 virus using lower respiratory tract samples (such as sputum, bronchoalveolar lavage fluid (BAL), tracheal aspirate, etc.). COVID Results SARS-CoV-2 Rapid ID NOW (no units) Date Value 09/22/2020 Not Detected Lactic Acid Whole Blood Collection Time: 09/22/20 5:57 AM Result Value Ref Range LACTIC ACID 2.54 mmol/L POCT GLUCOSE (AUTOMATED) Collection Time: 09/22/20 6:10 AM Result Value Ref Range POCT GLU 47 (LL) 70 - 110 mg/dL URINALYSIS Collection Time: 09/22/20 6:51 AM Result Value Ref Range APPEARANCE Cloudy (A) Clear COLOR Yasmine (A) Yellow PH 5.0 4.8 - 8.0 SP GRAVITY 1.018 1.003 - 1.030 GLU U QUAL Normal Normal BLOOD 2+ (A) Negative KETONES 5 mg/dL (A) Negative PROTEIN 30 mg/dL (A) Negative UROBILIN 4.0 mg/dL (A) Normal BILIRUBIN Negative Negative NITRITE Positive (A) Negative LEUK DIRK 500/uL (A) Negative RBC/HPF 44 (H) 0 - 3 HPF WBC/HPF >182 (H) 0 - 5 HPF BACTERIA Many (A) Negative MUCOUS Slight (A) Negative LPF AMORPHOUS Rare Rare HPF SQ EPITH 1 HPF WBC CLUMPS 54 (H) <=1 HPF URINE CULTURE Collection Time: 09/22/20 6:51 AM Specimen: URINE, CATHETERIZED Result Value Ref Range URINE CULTURE >100,000 CFU/mL Escherichia coli PROTHROMBIN TIME / INR Collection Time: 09/22/20 7:15 AM Result Value Ref Range PROTIME PATIENT 17.2 (H) 12.0 - 14.7 Seconds INR 1.5 POCT GLUCOSE (AUTOMATED) Collection Time: 09/22/20 7:44 AM Result Value Ref Range POCT GLU 76 70 - 110 mg/dL POCT GLUCOSE (AUTOMATED) Collection Time: 09/22/20 10:16 AM Result Value Ref Range POCT GLU 89 70 - 110 mg/dL POCT GLUCOSE (AUTOMATED) Collection Time: 09/22/20 4:38 PM Result Value Ref Range POCT GLU 86 70 - 110 mg/dL POCT GLUCOSE (AUTOMATED) Collection Time: 09/22/20 6:24 PM Result Value Ref Range POCT GLU 88 70 - 110 mg/dL POCT GLUCOSE (AUTOMATED) Collection Time: 09/22/20 7:32 PM Result Value Ref Range POCT GLU 95 70 - 110 mg/dL POCT GLUCOSE (AUTOMATED) Collection Time: 09/22/20 9:07 PM Result Value Ref Range POCT GLU 92 70 - 110 mg/dL POCT GLUCOSE (AUTOMATED) Collection Time: 09/22/20 10:04 PM Result Value Ref Range POCT GLU 94 70 - 110 mg/dL POCT GLUCOSE (AUTOMATED) Collection Time: 09/22/20 11:58 PM Result Value Ref Range POCT GLU 108 70 - 110 mg/dL PROTHROMBIN TIME / INR Collection Time: 09/23/20 2:17 AM Result Value Ref Range PROTIME PATIENT 17.1 (H) 10.1 - 12.6 Seconds INR 1.5 CBC WITH DIFF Collection Time: 09/23/20 2:47 AM Result Value Ref Range WBC 7.46 4.30 - 11.10 10*3/L RBC 3.38 (L) 3.93 - 5.25 10*6/L HGB 9.4 (L) 11.6 - 15.0 g/dL HCT 30.3 (L) 35.7 - 45.2 % MCV 89.6 80.6 - 95.5 fL MCH 27.8 25.9 - 32.8 pg MCHC 31.0 (L) 31.6 - 35.1 g/dL RDW-SD 57.6 (H) 39.0 - 49.9 fL RDW-CV 18.3 (H) 12.0 - 15.5 % PLT 69 (L) 166 - 358 10*3/L MPV 11.1 9.5 - 12.9 fL IPF % 1.6 1.3 - 7.7 % NRBC/100 WBC 0.0 0.0 - 10.0 /100 WBCs NRBC x10^3 <0.01 10*3/L GRAN MAT (NEUT) % 64.7 % IMM GRAN % 0.50 % LYMPH % 22.7 % MONO % 9.5 % EOS % 1.9 % BASO % 0.7 % GRAN MAT x10^3(ANC) 4.83 1.88 - 7.09 10*3/uL IMM GRAN x10^3 0.04 0.00 - 0.06 10*3/uL LYMPH x10^3 1.69 1.32 - 3.29 10*3/uL MONO x10^3 0.71 0.33 - 0.92 10*3/uL EOS x10^3 0.14 0.03 - 0.39 10*3/uL BASO x10^3 0.05 0.01 - 0.07 10*3/uL BASIC METABOLIC PANEL (NA, K, CL, CO2, GLUCOSE, BUN, CREATININE, CA) Collection Time: 09/23/20 2:47 AM Result Value Ref Range NA 139 135 - 145 mmol/L K 2.8 (LL) 3.5 - 5.0 mmol/L CL 110 (H) 98 - 108 mmol/L CO2 TOTAL 28 23 - 31 mmol/L AGAP 1 (L) 2 - 16 BUN 24 (H) 7 - 23 mg/dL GLUCOSE 101 70 - 110 mg/dL CREATININE 0.79 0.50 - 1.04 mg/dL CALCIUM 7.7 (L) 8.6 - 10.6 mg/dL eGFR Calculation (Non-) 76.4 mL/min/1.73m2 eGFR Calculation () 92.6 mL/min/1.73m2 AMMONIA, PLASMA Collection Time: 09/23/20 4:02 AM Result Value Ref Range AMMONIA 52 (H) 9 - 33 umol/L Abdominal 1 View - To Confirm Nasogastric Tube Placement. Result Date: 09/22/2020 Tip of the Dobbhoff tube is at the gastroesophageal junction and should be advanced Xr Chest 1 Vw Result Date: 09/22/2020 Changes of mild pulmonary vascular congestion with trace left-sided pleural effusion. A round opacity superimposed over inferior angle of the right scapula. Recommend correlation with TRAN view to rule out true lesions versus summation of shadows. Preliminary Report Dictated by Resident: Asif Thompson I, Calista Mattson MD., have reviewed this study and agree with the above report. Ct Head Wo Contrast Result Date: 09/22/2020 No acute intracranial hemorrhage or mass affect. Preliminary Report Dictated by Resident: Anastacia Tovar I, Franc Nina MD., have reviewed this study and agree with the above report. Xr Kub Result Date: 09/23/2020 1. Tip of the NG tube is in satisfactory position Xr Kub Result Date: 09/23/2020 Limited exam due to patient motion. The NG tube appears to terminate in the distal stomach. RL: 460 AFC: [id number] Active Problems: Hepatic encephalopathy (09/22/2020) POA: Yes Assessment: 52 year-old EtOH cirrhosis with AMS AMS - Improved from reports. Will need to continue Lactulose and Xifaxan Anemia - No overt signs of Blood loss. Will monitor Cirrhosis. - Imaging without mass lesion - Will add AFP. Hao Groves MD - 09/23/2020 7:24 AM CST Cardiology Consult Note Service: Cardiology Reason for Consultation: Date of Service: 09/23/2020 History of Present Illness Lorena Hansen is a 50 year old female patient with a history of has a past medical history of Liver cirrhosis, Multiple duodenal ulcers, Multiple gastric ulcers, and Transfusion history., admitted on 09/22/2020 with Patient denies chest pain, shortness of breath, syncope, falls, orthopnea, PND, LE edema, palpitations, cough, or claudication. REVIEW OF SYSTEMS A 14 point review of systems was completed and negative except as outlined above. PAST MEDICAL HISTORY Past Medical History: Diagnosis Date Liver cirrhosis Alcoholic Multiple duodenal ulcers Multiple gastric ulcers Transfusion history Past Surgical History: Procedure Laterality Date CHOLECYSTECTOMY ESOPHAGOGASTRODUODENOSCOPY N/A 12/26/2017 Surgeon: Eliceo Clayton MD; Location: [facility] ([facility]) OR Location ESOPHAGOGASTRODUODENOSCOPY N/A 02/06/2018 Surgeon: Fracisco Wilson MD; Location: [facility] ([facility]) OR Location ESOPHAGOGASTRODUODENOSCOPY N/A 09/26/2018 Surgeon: Eliceo Clayton MD; Location: [facility]oscopy ([facility]) OR Location TUBAL LIGATION MEDICATIONS Current Facility-Administered Medications: octreotide (SANDOSTATIN) 1,250 mcg in NaCl 0.9% (NS) 250 mL infusion, 50 mcg/hr, IV Infusion, CONTINUOUS, Jacob Braden MD, Last Rate: 10 mL/hr at 09/23/20 0226, 50 mcg/hr at 09/23/20 0226 pantoprazole (PROTONIX) 40 mg in NaCl 0.9% (NS) 100 mL MINI-BAG, 40 mg, IV Piggyback, Q12HA1, Jacob Braden MD, 40 mg at 09/23/20 0217 potassium chloride 20 mEq/100 mL (KCL) 20 mEq/100 mL RTU IVPB 20 mEq, 20 mEq, IV Piggyback, Q2H, Jacob Braden MD, 20 mEq at 09/23/20 0554 cefTRIAXone (ROCEPHIN) 1,000 mg in NaCl 0.9% (NS) 50 mL MINI-BAG, 1,000 mg, IV Piggyback, Q24H ABXAndrea Ali, MD D5W IV infusion 1,000 mL, 1,000 mL, IV Infusion, CONTINUOUS, Alondra Mendez MD dextrose 50 % in water (D50W) injection 25 mL, 25 mL, Slow IV Push, PRN, Alondra Mendez MD glucagon (GLUCAGEN DIAGNOSTIC KIT) injection 1 mg, 1 mg, Intramuscular, PRN, Alondra Mendez MD lactulose (CEPHULAC) solution 30 mL, 30 mL, Oral, Q8H, Alondra Mendez MD, 30 mL at 09/23/20 0558 rifAXIMin (XIFAXAN) tablet 550 mg, 550 mg, Oral, BID, Alondra Mendez MD, 550 mg at 09/22/20 1947 Allergies Allergen Reactions Zofran [Ondansetron Hcl (Pf)] Hives Social History Socioeconomic History Marital status: Spouse name: Not on file Number of children: Not on file Years of education: Not on file Highest education level: Not on file Occupational History Not on file Social Needs Financial resource strain: Not on file Food insecurity Worry: Not on file Inability: Not on file Transportation needs Medical: Not on file Non-medical: Not on file Tobacco Use Smoking status: Former Smoker Smokeless tobacco: Never Used Tobacco comment: quit 18 yrs ago Substance and Sexual Activity Alcohol use: Yes Comment: Former Drug use: No Sexual activity: Not on file Lifestyle Physical activity Days per week: Not on file Minutes per session: Not on file Stress: Not on file Relationships Social connections Talks on phone: Not on file Gets together: Not on file Attends church service: Not on file Active member of club or organization: Not on file Attends meetings of clubs or organizations: Not on file Relationship status: Not on file Intimate partner violence Fear of current or ex partner: Not on file Emotionally abused: Not on file Physically abused: Not on file Forced sexual activity: Not on file Other Topics Concern Not on file Social History Narrative Not on file Family History Problem Relation Age of Onset Cancer Mother Cancer Maternal Grandmother PHYSICAL EXAMINATION Vitals: height is 1.62 m (5' 3.78") and weight is 66.6 kg (146 lb 13.2 oz). Her axillary temperature is 36.5 C (97.7 F). Her blood pressure is 150/90 (abnormal) and her pulse is 99. Her respiration is 14 and oxygen saturation is 100%. General: Well Developed Well Nourished, NAD HEENT: MMM no erythema, no oral lesions NECK: No JVD, No bruits LUNGS: Clear to auscuatioan bilaterally CV: Reg rate rhythm no murmur rubs or gallops ABD: Soft EXT: No clubbing,cyanosis, edema Intake/Output Summary (Last 24 hours) at 09/23/2020 0724 Last data filed at 09/23/2020 0545 Gross per 24 hour Intake 1357.1 ml Output 375 ml Net 982.1 ml LABORATORY: Recent Results (from the past 24 hour(s)) POCT GLUCOSE (AUTOMATED) Collection Time: 09/22/20 7:44 AM Result Value Ref Range POCT GLU 76 70 - 110 mg/dL POCT GLUCOSE (AUTOMATED) Collection Time: 09/22/20 10:16 AM Result Value Ref Range POCT GLU 89 70 - 110 mg/dL POCT GLUCOSE (AUTOMATED) Collection Time: 09/22/20 4:38 PM Result Value Ref Range POCT GLU 86 70 - 110 mg/dL POCT GLUCOSE (AUTOMATED) Collection Time: 09/22/20 6:24 PM Result Value Ref Range POCT GLU 88 70 - 110 mg/dL POCT GLUCOSE (AUTOMATED) Collection Time: 09/22/20 7:32 PM Result Value Ref Range POCT GLU 95 70 - 110 mg/dL POCT GLUCOSE (AUTOMATED) Collection Time: 09/22/20 9:07 PM Result Value Ref Range POCT GLU 92 70 - 110 mg/dL POCT GLUCOSE (AUTOMATED) Collection Time: 09/22/20 10:04 PM Result Value Ref Range POCT GLU 94 70 - 110 mg/dL POCT GLUCOSE (AUTOMATED) Collection Time: 09/22/20 11:58 PM Result Value Ref Range POCT GLU 108 70 - 110 mg/dL PROTHROMBIN TIME / INR Collection Time: 09/23/20 2:17 AM Result Value Ref Range PROTIME PATIENT 17.1 (H) 10.1 - 12.6 Seconds INR 1.5 CBC WITH DIFF Collection Time: 09/23/20 2:47 AM Result Value Ref Range WBC 7.46 4.30 - 11.10 10*3/L RBC 3.38 (L) 3.93 - 5.25 10*6/L HGB 9.4 (L) 11.6 - 15.0 g/dL HCT 30.3 (L) 35.7 - 45.2 % MCV 89.6 80.6 - 95.5 fL MCH 27.8 25.9 - 32.8 pg MCHC 31.0 (L) 31.6 - 35.1 g/dL RDW-SD 57.6 (H) 39.0 - 49.9 fL RDW-CV 18.3 (H) 12.0 - 15.5 % PLT 69 (L) 166 - 358 10*3/L MPV 11.1 9.5 - 12.9 fL IPF % 1.6 1.3 - 7.7 % NRBC/100 WBC 0.0 0.0 - 10.0 /100 WBCs NRBC x10^3 <0.01 10*3/L GRAN MAT (NEUT) % 64.7 % IMM GRAN % 0.50 % LYMPH % 22.7 % MONO % 9.5 % EOS % 1.9 % BASO % 0.7 % GRAN MAT x10^3(ANC) 4.83 1.88 - 7.09 10*3/uL IMM GRAN x10^3 0.04 0.00 - 0.06 10*3/uL LYMPH x10^3 1.69 1.32 - 3.29 10*3/uL MONO x10^3 0.71 0.33 - 0.92 10*3/uL EOS x10^3 0.14 0.03 - 0.39 10*3/uL BASO x10^3 0.05 0.01 - 0.07 10*3/uL BASIC METABOLIC PANEL (NA, K, CL, CO2, GLUCOSE, BUN, CREATININE, CA) Collection Time: 09/23/20 2:47 AM Result Value Ref Range NA 139 135 - 145 mmol/L K 2.8 (LL) 3.5 - 5.0 mmol/L CL 110 (H) 98 - 108 mmol/L CO2 TOTAL 28 23 - 31 mmol/L AGAP 1 (L) 2 - 16 BUN 24 (H) 7 - 23 mg/dL GLUCOSE 101 70 - 110 mg/dL CREATININE 0.79 0.50 - 1.04 mg/dL CALCIUM 7.7 (L) 8.6 - 10.6 mg/dL eGFR Calculation (Non-) 76.4 mL/min/1.73m2 eGFR Calculation () 92.6 mL/min/1.73m2 AMMONIA, PLASMA Collection Time: 09/23/20 4:02 AM Result Value Ref Range AMMONIA 52 (H) 9 - 33 umol/L EKG personally reviewed : sinus, left axis deviation ASSESSMENT/PLAN Lorena Jody Jade is a 50 year old female patient with a history of has a past medical history of Liver cirrhosis, Multiple duodenal ulcers, Multiple gastric ulcers, and Transfusion history., admitted on 09/22/2020 for Lorena Hansen is a 50 year old female with PMH as listed above, admitted to the hospital with: Hepatic encephalopathy UTI Thrombocytopenia Anemia Hypoglycemia Mild troponin elevation: myicardial stress; NOT suggestive of ME. Thank you for involving us in the patient's care. Please feel free to call us with questions. Hao Colvin MD 09/23/2020 7:24 AM ENT DRIVING INSTRUCTOR documented in this encounter Nursing Notes Osmany Hummel RN - 09/24/2020 4:10 AM CSTI notify SHOOTER'S HELPER Michael of latest urine output = 300 ml.Abl to drink water and juices fine Also she removed her NGT yesterday . documented in this encounter ED Notes Miriam Jimenez RN - 09/22/2020 5:00 AM CSTCC: EMS brought patient in because boyfriend/ significant other stated she is altered. Patient is screaming that she is in pain, eyes are visibility swollen shut. EMS gave 5mg of valium IM. PMHx: See history PSH:see hisotry MEDS: out of lasix Awake, alert, oriented, resp reg unlabored, skin warm and dry, color appropriate for race, moves allext without difficulty, Appears in moderate distress Balta Vasquez MD - 09/22/2020 4:50 AM CST [facility] Emergency Department Note Patient Name: Lorena Hansen Date of : 1970 50 year old female Treatment Room: Room/bed info not found Primary Care Physician: PATIENT DOES NOT HAVE A PCP Patient Escorted by: Self [9] Mode of Arrival: EMS - [facility] ([place]) [43] EMS Treatment Prior to ED Arrival: MILL OPERATOR HEAD treatment: Medication (comment) MILL OPERATOR HEAD treatment comments: 5 mg IM Valium Travel and Exposure Screening: Symptoms Does patient have any of these symptoms?: (not recorded) Exposure Screening Has patient had contact with someone with a communicable disease in the last month?: (not recorded) Diseases exposed to:: (not recorded) Is Patient ?: (not recorded) Exposure Date: (not recorded) Chief Complaint: Chief Complaint Patient presents with FACIAL SWELLING Other pain History of Present Illness: Lorena Hansen is a 50 year old female with numerous medical conditions as listed below who was brought to the ED by EMS for evaluation of AMS. According to EMS, patient's significant other called EMS due to AMS. No trauma or injury reported. Pt is unable to provide any additional useful history History provided by: Medical records and EMS personnel piece maker used: No Altered mental status Presenting symptoms: confusion Severity: Unable to specify Episode history: Unable to specify Timing: Unable to specify Progression: Unable to specify Past Medical History/Immunizations: Past Medical History: Diagnosis Date Liver cirrhosis Alcoholic Multiple duodenal ulcers Multiple gastric ulcers Transfusion history Esophagitis Esophageal Varices Decompensated HCV Cirrhosis ETOH Liver Cirrhosis Chronic Pancreatitis PUD Hx of Starr -Olivares Tear Portal Hypertensive Gastropathy Thrombocytopenia Coagulopathy Allergies: Allergies Allergen Reactions Zofran [Ondansetron Hcl (Pf)] Hives Past Social History: Tobacco Use Former Smoker. Smokeless Tobacco: Never used smokeless tobacco. Comments: quit 18 yrs ago Alcohol Use Yes. Comments: Former Drug Use No. Past Surgical History: Past Surgical History: Procedure Laterality Date CHOLECYSTECTOMY ESOPHAGOGASTRODUODENOSCOPY N/A 12/26/2017 Surgeon: Eliceo Clayton MD; Location: [facility] ([facility]) OR Location ESOPHAGOGASTRODUODENOSCOPY N/A 02/06/2018 Surgeon: Fracisco Wilson MD; Location: [facility] ([facility]) OR Location ESOPHAGOGASTRODUODENOSCOPY N/A 09/26/2018 Surgeon: Eliceo Clayton MD; Location: [facility] ([facility]) OR Location TUBAL LIGATION Review of Systems: Review of Systems Unable to perform ROS: Mental status change Psychiatric/Behavioral: Positive for confusion. Physical Exam: ED Triage Vitals Weight 09/22/20 0500 75.3 kg (166 lb 0.1 oz) Actual or estimated -- Height -- BP 09/22/20 0505 (!) 151/89 Pulse 09/22/20 0505 126 Resp 09/22/20 0505 18 Temp 09/22/20 0518 35.9 C (96.6 F) Temp source 09/22/20 05 Axillary SpO2 09/22/20 0505 97 % Measured on 09/22/20 0505 Room air Physical Exam Constitutional: General: She is not in acute distress. Appearance: Normal appearance. She is well-developed and normal weight. She is ill-appearing. Sheis not toxic-appearing or diaphoretic. HENT: Head: Normocephalic and atraumatic. Right Ear: Tympanic membrane, ear canal and external ear normal. Left Ear: Tympanic membrane, ear canal and external ear normal. Nose: Nose normal. No congestion or rhinorrhea. Mouth/Throat: Mouth: Mucous membranes are moist. Pharynx: Oropharynx is clear. No oropharyngeal exudate or posterior oropharyngeal erythema. Eyes: General: No scleral icterus. Right eye: No discharge. Left eye: No discharge. Extraocular Movements: Extraocular movements intact. Conjunctiva/sclera: Conjunctivae normal. Pupils: Pupils are equal, round, and reactive to light. Comments: Has bilateral periorbital edema Neck: Musculoskeletal: Normal range of motion and neck supple. No neck rigidity or muscular tenderness. Thyroid: No thyromegaly. Cardiovascular: Rate and Rhythm: Normal rate and regular rhythm. Pulses: Normal pulses. Heart sounds: Normal heart sounds. No murmur. Pulmonary: Effort: Pulmonary effort is normal. No respiratory distress. Breath sounds: Normal breath sounds. No stridor. No wheezing, rhonchi or rales. Chest: Chest wall: No tenderness. Abdominal: General: Bowel sounds are normal. There is distension. Palpations: Abdomen is soft. There is no mass. Tenderness: There is no abdominal tenderness. There is no right CVA tenderness, left CVA tenderness, guarding or rebound. Hernia: No hernia is present. Musculoskeletal: Normal range of motion. General: Swelling present. No tenderness, deformity or signs of injury. Right lower leg: Edema present. Left lower leg: Edema present. Lymphadenopathy: Cervical: No cervical adenopathy. Skin: General: Skin is warm and dry. Capillary Refill: Capillary refill takes less than 2 seconds. Coloration: Skin is not jaundiced or pale. Findings: Bruising present. No erythema, lesion or rash. Neurological: Mental Status: She is alert and oriented to person, place, and time. Motor: No abnormal muscle tone. Psychiatric: Comments: Uncooperative Combative Confused Radiology: Hospital Encounter on 09/22/20 XR CHEST 1 VW Narrative EXAM: XR CHEST 1 VW HISTORY: AMS TECHNIQUE: AP view of the chest COMPARISON: 02/22/2018 FINDINGS: Changes of mild pulmonary vascular congestion are demonstrated. Trace-volume pleural effusion blunts the left costophrenic angle. No pneumothorax. The heart size is normal. No acute bony abnormality. Impression Changes of mild pulmonary vascular congestion with trace left-sided pleural effusion. Preliminary Report Dictated by Resident: Asif Thompson Lab Results (24h): Recent Results (from the past 24 hour(s)) CBC WITH DIFF Collection Time: 09/22/20 5:12 AM Result Value Ref Range WBC 11.45 (H) 4.30 - 11.10 10*3/L RBC 3.90 (L) 3.93 - 5.25 10*6/L HGB 10.7 (L) 11.6 - 15.0 g/dL HCT 34.6 (L) 35.7 - 45.2 % MCV 88.7 80.6 - 95.5 fL MCH 27.4 25.9 - 32.8 pg MCHC 30.9 (L) 31.6 - 35.1 g/dL RDW-SD 56.5 (H) 39.0 - 49.9 fL RDW-CV 18.5 (H) 12.0 - 15.5 % PLT 106 (L) 166 - 358 10*3/L MPV 11.3 9.5 - 12.9 fL NRBC/100 WBC 0.0 0.0 - 10.0 /100 WBCs NRBC x10^3 <0.01 10*3/L GRAN MAT (NEUT) % 73.2 % IMM GRAN % 1.60 % LYMPH % 15.5 % MONO % 7.9 % EOS % 1.0 % BASO % 0.8 % GRAN MAT x10^3(ANC) 8.39 (H) 1.88 - 7.09 10*3/uL IMM GRAN x10^3 0.18 (H) 0.00 - 0.06 10*3/uL LYMPH x10^3 1.77 1.32 - 3.29 10*3/uL MONO x10^3 0.91 0.33 - 0.92 10*3/uL EOS x10^3 0.11 0.03 - 0.39 10*3/uL BASO x10^3 0.09 (H) 0.01 - 0.07 10*3/uL COMP. METABOLIC PANEL (84879) Collection Time: 09/22/20 5:12 AM Result Value Ref Range NA 140 135 - 145 mmol/L K 3.7 3.5 - 5.0 mmol/L CL 110 (H) 98 - 108 mmol/L CO2 TOTAL 22 (L) 23 - 31 mmol/L AGAP 8 2 - 16 BUN 22 7 - 23 mg/dL GLUCOSE 49 (LL) 70 - 110 mg/dL CREATININE 0.79 0.50 - 1.04 mg/dL TOTAL BILI 4.1 (H) 0.1 - 1.1 mg/dL CALCIUM 8.4 (L) 8.6 - 10.6 mg/dL T PROTEIN 5.7 (L) 6.3 - 8.2 g/dL ALBUMIN 2.4 (L) 3.5 - 5.0 g/dL ALK PHOS 91 34 - 122 U/L ALTv 72 (H) 5 - 35 U/L AST(SGOT) 166 (H) 13 - 40 U/L eGFR Calculation (Non-) 76.4 mL/min/1.73m2 eGFR Calculation () 92.6 mL/min/1.73m2 N-TERMINAL PRO-BNP Collection Time: 09/22/20 5:12 AM Result Value Ref Range NT-proBNP 544 (H) <=125 pg/mL TROPONIN I Collection Time: 09/22/20 5:12 AM Result Value Ref Range TROPONIN I 0.171 (H) <=0.034 ng/mL AMMONIA, PLASMA Collection Time: 09/22/20 5:13 AM Result Value Ref Range AMMONIA 109 (H) 9 - 33 umol/L COVID-19 (ID NOW RAPID TESTING) Collection Time: 09/22/20 5:15 AM Specimen: NASOPHARYNGEAL SWAB Result Value Ref Range SARS-CoV-2 Rapid ID NOW Not Detected Not Detected Lactic Acid Whole Blood Collection Time: 09/22/20 5:57 AM Result Value Ref Range LACTIC ACID 2.54 mmol/L POCT GLUCOSE (AUTOMATED) Collection Time: 09/22/20 6:10 AM Result Value Ref Range POCT GLU 47 (LL) 70 - 110 mg/dL Orders and Treatments: Orders Placed This Encounter Procedures XR CHEST [address] HEAD WO CONTRAST AMMONIA, PLASMA CBC WITH DIFF COMP. METABOLIC PANEL ([id number]) N-TERMINAL PRO-BNP COVID-19 (ID NOW RAPID TESTING) TROPONIN I Lactic Acid Whole Blood Lactic Acid Whole Blood URINALYSIS LAB ONLY COVID INTERPRETATION POCT GLUCOSE (AUTOMATED) PROTHROMBIN TIME / INR Orders Placed This Encounter Medications FENTanyl PF (SUBLIMAZE (PF)) injection 50 mcg dextrose 50 % in water (D50W) injection 50 mL lactulose (CEPHULAC) solution 45 mL ED COURSE MDM: Coding Scoring Tools: No data recorded Diagnosis/Impression: ICD-10-CM ICD-9-CM 1. Altered mental status, unspecified altered mental status type R41.82 780.97 2. Hepatic encephalopathy K72.90 572.2 3. Hypoglycemia E16.2 251.2 4. Chronic anemia D64.9 285.9 5. Thrombocytopenia D69.6 287.5 6. NSTEMI (non-ST elevated myocardial infarction) I21.4 410.70 Disposition/Condition: ED Disposition None Discharge Medications: Patient's Medications START taking these medications No medications on file CONTINUE taking these medications which have NOT CHANGED FUROSEMIDE 20 MG TABLET Take 1 tablet by mouth every morning. LACTULOSE 10 GRAM/15 ML ORAL SOLUTION Take 30 mL by mouth daily. RIFAXIMIN 200 MG TABLET Take 3 tablets by mouth 2 (two) times daily. x 10 days HG START taking Modified Medications as Prescribed No medications on file STOP taking these medications No medications on file Follow-up: Electronically signed by: Balta Nam MD 09/22/2020 4:52 AM ENT DRIVING INSTRUCTOR documented in this encounter Miscellaneous Notes Nursing Note - Suha Carbone, RN - 09/24/2020 8:30 AM CSTSummary: Alert and Oriented Patient Patient answering all questions appropriately, reports feeling hungry, and "a little weak". She requested telephone and self transferred to the bedside commode. Performed her own self care. Now sittingin bed calling her daughter requesting to be picked up to go AMA. Patient is now cooperative with staff, and observing fall precautions. Patient's request to eat, also refusing a new IV. Requests forwarded to Dr Andrea Nunez ursing Note - Suha Carbone RN - 09/24/2020 7:49 AM CSTSummary: Patient Self D/C PIV On my initial first assessment, patient seen squirming in bed and PIV out. Patient is labile crying,answers all questions appropriately and requesting to go home states "I don't want to be here". Patient denies suicide ideations and denies intention to cause self harm. Her daughter Yue was called as per patient's own request. Charge nurse made aware are Plan - Osmany Hummel RN - 09/23/2020 10:01 PM STUDENT DRIVING INSTRUCTOR Problem: Mental Status - Impaired Goal: Able to achieve maximum level of cognitive ability Outcome: Progressing as expected Problem: Falls, Risk of Goal: Absence of falls Outcome: Progressing as expected Problem: Infection Risk Goal: Absence of infection Outcome: Progressing as expected Problem: Discharge Planning Goal: Absence of venous thromboembolism Outcome: Progressing as expected Goal: Adequate for discharge Outcome: Progressing as expected Goal: Effective communication Outcome: Progressing as expected Problem: Fluid Volume - Imbalanced Goal: Absence of signs and symptoms of imbalanced fluid volume Outcome: Progressing as expected Problem: Restraint Use Goal: Absence of restraint indications Outcome: Progressing as expected Goal: Absence of restraint-related injury Outcome: Progressing as expected ENT DRIVING INSTRUCTOR Nursing Note - Osmany Hummel RN - 09/23/2020 10:00 PM CSTPatient wakes up and asked for water to drink. I elevated her head and she is able to drink water fine. ENT DRIVING INSTRUCTOR Care Plan - Lisy Clarke RN - 09/23/2020 3:10 PM STUDENT DRIVING INSTRUCTOR Problem: Mental Status - Impaired Goal: Able to achieve maximum level of cognitive ability Outcome: Progressing as expected Problem: Falls, Risk of Goal: Absence of falls Outcome: Progressing as expected Problem: Infection Risk Goal: Absence of infection Outcome: Progressing as expected Problem: Discharge Planning Goal: Absence of venous thromboembolism Outcome: Progressing as expected Goal: Adequate for discharge Outcome: Progressing as expected Goal: Effective communication Outcome: Progressing as expected Problem: Fluid Volume - Imbalanced Goal: Absence of signs and symptoms of imbalanced fluid volume Outcome: Progressing as expected Problem: Restraint Use Goal: Absence of restraint indications Outcome: Progressing as expected Goal: Absence of restraint-related injury Outcome: Progressing as expected are Plan - Rakel Aden RN - 09/23/2020 12:29 AM STUDENT DRIVING INSTRUCTOR Problem: Restraint Use Goal: Absence of restraint indications Outcome: Progressing as expected Problem: Restraint Use Goal: Absence of restraint-related injury Outcome: Progressing as expected ENT DRIVING INSTRUCTOR Care Plan - Rakel Aden RN - 09/22/2020 9:25 PM STUDENT DRIVING INSTRUCTOR Problem: Mental Status - Impaired Goal: Able to achieve maximum level of cognitive ability Outcome: Progressing as expected Problem: Falls, Risk of Goal: Absence of falls 09/22/20202123 by Rakel Aden RN Outcome: Progressing as expected 09/22/20202122 by Rakel Aden RN Outcome: Progressing as expected Problem: Infection Risk Goal: Absence of infection 09/22/20202123 by Rakel Aden RN Outcome: Progressing as expected 09/22/20202122 by Rakel Aden RN Outcome: Progressing as expected Problem: Discharge Planning Goal: Absence of venous thromboembolism 09/22/20202123 by Rakel Aden RN Outcome: Progressing as expected 09/22/20202122 by Rakel Aden RN Outcome: Progressing as expected Goal: Adequate for discharge 09/22/20202123 by Rakel Aden RN Outcome: Progressing as expected 09/22/20202122 by Rakel Aden RN Outcome: Progressing as expected Goal: Effective communication 09/22/20202123 by Rakel Aden RN Outcome: Progressing as expected 09/22/20202122 by Rakel Aden RN Outcome: Progressing as expected Problem: Fluid Volume - Imbalanced Goal: Absence of signs and symptoms of imbalanced fluid volume 09/22/20202123 by Rakel Aden RN Outcome: Progressing as expected 09/22/20202122 by Rakel Aden RN Outcome: Progressing as expected ENT DRIVING INSTRUCTOR Care Plan - Osiris Lane RN - 09/22/2020 12:19 PM CSTCare plan created D Nurse Note - Tova Foreman RN - 09/22/2020 10:04 AM CSTReport given to Abril [facility] at [facility]. D Nurse Note - Anand Hickman - 09/22/2020 8:38 AM [id number] - Contacted [facility] to arrange transport. ETA 20 minutes. D Nurse Note - Skylar Turk RN - 09/22/2020 5:21 AM CSTKeltutu Jody Hansen is a 50 year old female brought in By ems for co called by patients or boyfriend for co "possible lactulose problem.". EMS reports that he did not know if she had been taking her lactulose and he felt like she was altered. Patient arrived with eyes swollen shut - not sure if she had been compliant with her lasix.Patient arrived crying out initially would not answer when spoken too. With persistent questioning and answered orientation questions appropriately . Cries out with any touch - even light touch on anywhere of her body. EMS gave versed 5 mg im prior to arrival. Attempted piv x 1 without success. Patient held to facilitate piv . Notified Na charge nurse. documented in this encounter Plan of Treatment Name Type Priority Associated Diagnoses Date/Ti me URINE CULTURE LAB STAT Complicated UTI (urinary tr act 09/22/2020 6:51 AM STUDENT DRIVING INSTRUCTOR infection) Name Type Priority Associated Diagnoses Order S chedule Lactic Acid Whole Blood LAB STAT Altered mental st atus, STAT for 1 Occurrences unspecified altered starting 09/22/2020 mental status type until 04/2020 Transfusion Reaction LAB Routine FOR FOL LOW-UP TESTING Investigation until disconti nued starting 2019 Urinalysis (Spun) LAB NADINE FOR FOLLOW -UP TESTING until discontin ued starting 2019 POCT GLUCOSE(AGE LAB Routine Hepatic encephalopathy O rdered: 09/22/2020 >30DAYS) Health Maintenance Due Date Last Done Comments [...] to pic documented as of this encounter Procedures Procedure Name Priority Date/Time Associated Diagnosis Comme nts LACTIC ACID WHOLE STAT 09/24/2020 7:31 Result s for this BLOOD AM STUDENT DRIVING INSTRUCTOR procedure are i n the results section. CBC WITHOUT DIFF NADINE 09/24/2020 7:17 Results for this AM STUDENT DRIVING INSTRUCTOR procedure are i n the results section. BASIC METABOLIC PANEL NADINE 09/24/2020 7:17 Re sults for this (NA, K, CL, CO2, AM STUDENT DRIVING INSTRUCTOR procedure a re in GLUCOSE, BUN, the results CREATININE, CA) section. AMMONIA, PLASMA NADINE 09/24/2020 7:17 Results for this AM STUDENT DRIVING INSTRUCTOR procedure are i n the results section. AMMONIA, PLASMA NADINE 09/23/2020 4:02 Results for this AM STUDENT DRIVING INSTRUCTOR procedure are i n the results section. CBC WITH DIFF [facility] 09/23/2020 2:47 Results fo r this AM STUDENT DRIVING INSTRUCTOR procedure are i n the results section. BASIC METABOLIC PANEL [facility] 09/23/2020 2:47 Re sults for this (NA, K, CL, CO2, AM STUDENT DRIVING INSTRUCTOR procedure a re in GLUCOSE, BUN, the results CREATININE, CA) section. PROTHROMBIN TIME / INR [facility] 09/23/2020 2:17 R esults for this AM STUDENT DRIVING INSTRUCTOR procedure are i n the results section. XR KUB Routine 09/23/2020 12:49 Hepatic Results for this AM STUDENT DRIVING INSTRUCTOR encephalopathy procedure are in the results section. POCT GLUCOSE Routine 09/22/2020 11:58 Results for this (AUTOMATED) PM STUDENT DRIVING INSTRUCTOR procedure are i n the results section. POCT GLUCOSE Routine 09/22/2020 10:04 Results for this (AUTOMATED) PM STUDENT DRIVING INSTRUCTOR procedure are i n the results section. POCT GLUCOSE Routine 09/22/2020 9:07 Results for this (AUTOMATED) PM STUDENT DRIVING INSTRUCTOR procedure are i n the results section. POCT GLUCOSE Routine 09/22/2020 7:32 Results for this (AUTOMATED) PM STUDENT DRIVING INSTRUCTOR procedure are i n the results section. POCT GLUCOSE Routine 09/22/2020 6:24 Results for this (AUTOMATED) PM STUDENT DRIVING INSTRUCTOR procedure are i n the results section. XR KUB Routine 09/22/2020 6:14 Hepatic Results for this PM STUDENT DRIVING INSTRUCTOR encephalopathy procedure are in the results section. MRSA / MSSA SCREEN BY [facility] 09/22/2020 4:56 Re sults for this PCR, NARES PM STUDENT DRIVING INSTRUCTOR procedure are i n the results section. POCT GLUCOSE Routine 09/22/2020 4:38 Results for this (AUTOMATED) PM STUDENT DRIVING INSTRUCTOR procedure are i n the results section. XR ABDOMEN 1 VW STAT 09/22/2020 2:25 Altered mental Result s for this PM STUDENT DRIVING INSTRUCTOR status, unspecified procedur e are in altered mental status the re sults type section. POCT GLUCOSE Routine 09/22/2020 10:16 Results for this (AUTOMATED) AM STUDENT DRIVING INSTRUCTOR procedure are i n the results section. POCT GLUCOSE Routine 09/22/2020 7:44 Results for this (AUTOMATED) AM STUDENT DRIVING INSTRUCTOR procedure are i n the results section. PROTHROMBIN TIME / INR STAT 09/22/2020 7:15 Hepatic R esults for this AM STUDENT DRIVING INSTRUCTOR encephalopathy procedure are in the results section. HB ECG ROUTINE & STAT 09/22/2020 7:05 NSTEMI (non-ST RHYTHM STRIP AM STUDENT DRIVING INSTRUCTOR elevated myocardial infarction) URINE CULTURE STAT 09/22/2020 6:51 Complicated UTI AM STUDENT DRIVING INSTRUCTOR (urinary tract infection) URINALYSIS STAT 09/22/2020 6:51 Altered mental Results f or this AM STUDENT DRIVING INSTRUCTOR status, unspecified procedur e are in altered mental status the re sults type section. CT HEAD WO CONTRAST STAT 09/22/2020 6:40 Altered mental Re sults for this AM STUDENT DRIVING INSTRUCTOR status, unspecified procedur e are in altered mental status the re sults type section. POCT GLUCOSE Routine 09/22/2020 6:10 Results for this (AUTOMATED) AM STUDENT DRIVING INSTRUCTOR procedure are i n the results section. LACTIC ACID WHOLE STAT 09/22/2020 5:57 Altered mental Resu lts for this BLOOD AM STUDENT DRIVING INSTRUCTOR status, unspecified procedur e are in altered mental status the re sults type section. XR CHEST 1 VW STAT 09/22/2020 5:27 Altered mental Results for this AM STUDENT DRIVING INSTRUCTOR status, unspecified procedur e are in altered mental status the re sults type section. LAB ONLY COVID Routine 09/22/2020 5:15 Altered mental Results for this INTERPRETATION AM STUDENT DRIVING INSTRUCTOR status, unspecified proced ure are in altered mental status the re sults type section. COVID-19 (ID NOW RAPID STAT 09/22/2020 5:15 Altered mental Results for this TESTING) AM STUDENT DRIVING INSTRUCTOR status, unspecified procedur e are in altered mental status the re sults type section. AMMONIA, PLASMA STAT 09/22/2020 5:13 Altered mental Result s for this AM STUDENT DRIVING INSTRUCTOR status, unspecified procedur e are in altered mental status the re sults type section. N-TERMINAL PRO-BNP STAT 09/22/2020 5:12 Altered mental Res ults for this AM STUDENT DRIVING INSTRUCTOR status, unspecified procedur e are in altered mental status the re sults type section. CBC WITH DIFF STAT 09/22/2020 5:12 Altered mental Results for this AM STUDENT DRIVING INSTRUCTOR status, unspecified procedur e are in altered mental status the re sults type section. COMP. METABOLIC PANEL STAT 09/22/2020 5:12 Altered mental Results for this ([id number]) AM STUDENT DRIVING INSTRUCTOR status, unspecified procedur e are in altered mental status the re sults type section. TROPONIN I STAT 09/22/2020 5:12 Altered mental Results f or this AM STUDENT DRIVING INSTRUCTOR status, unspecified procedur e are in altered mental status the re sults type section. documented in this encounter Results Lactic Acid Whole Blood (09/24/2020 7:31 AM STUDENT DRIVING INSTRUCTOR) Pathologist Sig nature LACTIC ACID 1.69 mmol/L [facility] Specimen Blood - ARM, LEFT Performing Organization Address [facility] Facilitycode Phone Number [facility] CLIA: [id number] [place] [address] [facility] [address] CBC WITHOUT DIFF (09/24/2020 7:17 AM STUDENT DRIVING INSTRUCTOR) WBC 4.95 4.30 - 11.10 [facility] 10*3/L [facility] RBC 3.32 (L) 3.93 - 5.25 [facility] 10*6/L [facility] HGB 9.2 (L) 11.6 - 15.0 [facility] g/dL [facility] HCT 30.0 (L) 35.7 - 45.2 % [facility] MCH 27.7 25.9 - 32.8 pg [facility] MCV 90.4 80.6 - 95.5 fL [facility] MCHC 30.7 (L) 31.6 - 35.1 [facility] g/dL [facility] PLT 63 (L) 166 - 358 [facility] 10*3/L [facility] MPV 10.5 9.5 - 12.9 fL [facility] RDW-CV 18.4 (H) 12.0 - 15.5 % [facility] RDW-SD 58.6 (H) 39.0 - 49.9 fL [facility] NRBC x10^3 <0.01 10*3/L [facility] NRBC/100 WBC 0.0 0.0 - 10.0 [facility] /100 WBCs [facility] IPF % 2.2Comment: Platelet 1.3 - 7.7 % [facility] count measured by [facility] fluorescence method. [facility] Specimen Blood - LINE, VENOUS Performing Organization Address City/[facility] Facilitycode Phone Number [facility] CLIA: [id number] [place] [address] [facility] [address] AMMONIA, PLASMA (09/24/2020 7:17 AM STUDENT DRIVING INSTRUCTOR) Pathologist Sig formerly [facility] AMMONIA 80 (H) 9 - 33 umol/L [facility] Specimen Blood - LINE, VENOUS Performing Organization Address City/State/Zipcode Phone Number [facility] CLIA: [id number] [place] [address] [facility] [address] BASIC METABOLIC PANEL (NA, K, CL, CO2, GLUCOSE, BUN, CREATININE, CA) (09/24/2020 7:17 AM STUDENT DRIVING INSTRUCTOR) Pathologist [facility] NA 138 135 - 145 [facility] mmol/L [facility] K 3.2 (L) 3.5 - 5.0 [facility] mmol/L [facility] CL 107 98 - 108 mmol/L [facility] CO2 TOTAL 30 23 - 31 mmol/L [facility] AGAP 1 (L) 2 - 16 [facility] BUN 18 7 - 23 mg/dL [facility] GLUCOSE 128 (H) 70 - 110 mg/dL [facility] CREATININE 0.60 0.50 - 1.04 [facility] mg/dL [facility] CALCIUM 7.5 (L) 8.6 - 10.6 [facility] mg/dL [facility] eGFR Calculation 105.0 mL/min/1.73m2 [facility] (Non- [facility] [place]) [place] eGFR Calculation 127.2 mL/min/1.73m2 [facility] () [facility] Specimen Blood - LINE, VENOUS Narrative Performed At [facility] Rate [facility] (GFR) and Staging of Kidney Disease* [place] + + --+ + | GFR (mL/min/1.73 m2) | With Kidney Damage | Without Kidney Damage + + --+ + | >90 | Stage one | Normal + + --+ + | 60-89 | Stage two | Decreased GFR + + --+ + | 30-59 | Stage three | Stage three + + --+ + | 15-29 | Stage four | Stage four + + --+ + | <15 (or dialysis) | Stage five | Stage five + + --+ + *Each stage assumes the associated GFR level has been in effect for at least three months. Stages 1 to 5, with or without kidney disease, indicate chronic kidney disease. Notes: Determination of stages one and two (with eGFR >59mL/min/1.73 m2) requires estimation of kidney damage for at least three months as defined by structural or functional abnormalities of the kidney, manifested by either: Pathological abnormalities or Markers of kidney damage (including abnormalities in the composition of the blood or urine or abnormalities in imaging tests). Performing Organization Address City/State/Zipcode Phone Number [facility] CLIA: [id number] [place] [address] [facility] [address] AMMONIA, PLASMA (09/23/2020 4:02 AM STUDENT DRIVING INSTRUCTOR) Pathologist Sig nature AMMONIA 52 (H) 9 - 33 umol/L [facility] Specimen Blood - ARM, LEFT Performing Organization Address [facility] Facilitycode Phone Number [facility] CLIA: [id number] [place] [address] [facility] [address] BASIC METABOLIC PANEL (NA, K, CL, CO2, GLUCOSE, BUN, CREATININE, CA) (09/23/2020 2:47 AM STUDENT DRIVING INSTRUCTOR) NA 139 135 - 145 [facility] mmol/L [facility] K 2.8 (LL) 3.5 - 5.0 [facility] mmol/L [facility] CL 110 (H) 98 - 108 mmol/L [facility] CO2 TOTAL 28 23 - 31 mmol/L [facility] AGAP 1 (L) 2 - 16 [facility] BUN 24 (H) 7 - 23 mg/dL [facility] GLUCOSE 101 70 - 110 mg/dL [facility] CREATININE 0.79 0.50 - 1.04 [facility] mg/dL [facility] CALCIUM 7.7 (L) 8.6 - 10.6 [facility] mg/dL [facility] eGFR Calculation 76.4 mL/min/1.73m2 [facility] (Non- SERVICES-[facility] eGFR Calculation 92.6 mL/min/1.73m2 [facility] () [facility] Specimen Blood - ARM, LEFT Narrative Performed At [facility] (GFR) and Staging of Kidney Disease* [place] + + --+ + | GFR (mL/min/1.73 m2) | With Kidney Damage | Without Kidney Damage + + --+ + | >90 | Stage one | Normal + + --+ + | 60-89 | Stage two | Decreased GFR + + --+ + | 30-59 | Stage three | Stage three + + --+ + | 15-29 | Stage four | Stage four + + --+ + | <15 (or dialysis) | Stage five | Stage five + + --+ + *Each stage assumes the associated GFR level has been in effect for at least three months. Stages 1 to 5, with or without kidney disease, indicate chronic kidney disease. Notes: Determination of stages one and two (with eGFR >59mL/min/1.73 m2) requires estimation of kidney damage for at least three months as defined by structural or functional abnormalities of the kidney, manifested by either: Pathological abnormalities or Markers of kidney damage (including abnormalities in the composition of the blood or urine or abnormalities in imaging tests). Performing Organization Address City/State/Zipcode Phone Number [facility] CLIA: [id number] [place] [address] [facility] [address] CBC WITH DIFF (09/23/2020 2:47 AM STUDENT DRIVING INSTRUCTOR) WBC 7.46 4.30 - 11.10 [facility] 10*3/L [facility] RBC 3.38 (L) 3.93 - 5.25 [facility] 10*6/L [facility] HGB 9.4 (L) 11.6 - 15.0 [facility] g/dL [facility] HCT 30.3 (L) 35.7 - 45.2 % [facility] MCV 89.6 80.6 - 95.5 [facility] fL [facility] MCH 27.8 25.9 - 32.8 [facility] pg [facility] MCHC 31.0 (L) 31.6 - 35.1 [facility] g/dL [facility] RDW-SD 57.6 (H) 39.0 - 49.9 [facility] fL [facility] RDW-CV 18.3 (H) 12.0 - 15.5 % [facility] PLT 69 (L) 166 - 358 [facility] 10*3/L [facility] MPV 11.1 9.5 - 12.9 fL [facility] IPF % 1.6Comment: Platelet 1.3 - 7.7 % [facility] count measured by [facility] fluorescence method. [facility] NRBC/100 WBC 0.0 0.0 - 10.0 [facility] /100 WBCs [facility] NRBC x10^3 <0.01 10*3/L [facility] GRAN MAT (NEUT) % 64.7 % [facility] IMM GRAN % 0.50 % [facility] LYMPH % 22.7 % [facility] MONO % 9.5 % [facility] EOS % 1.9 % [facility] BASO % 0.7 % [facility] GRAN MAT 4.83 1.88 - 7.09 [facility] x10^3(ANC) 10*3/uL [facility] IMM GRAN x10^3 0.04 0.00 - 0.06 [facility] 10*3/uL [facility] LYMPH x10^3 1.69 1.32 - 3.29 [facility] 10*3/uL [facility] MONO x10^3 0.71 0.33 - 0.92 [facility] 10*3/uL [facility] EOS x10^3 0.14 0.03 - 0.39 [facility] 10*3/uL [facility] x10^3 0.05 0.01 - 0.07 [facility] 10*3/uL [facility] Specimen Blood - ARM, LEFT Performing Organization Address City/State/Zipcode Phone Number [facility] CLIA: [id number] [place] [address] [facility] [address] PROTHROMBIN TIME / INR (09/23/2020 2:17 AM STUDENT DRIVING INSTRUCTOR) PROTIME PATIENT 17.1 (H) 10.1 - 12.6 [facility] Seconds [facility] INR 1.5Comment: Normal [facility] INR <1.1; Warfarin [facility] Therapeutic range [facility] 2.0 to 3.0 or 2.5 to 3.5, depending upon the indications. Specimen Blood - ARM, LEFT Performing Organization Address City/[facility]/Zipcode Phone Number [facility] CLIA: [id number] [place] [address] [facility] [address] XR KUB (09/23/2020 12:49 AM STUDENT DRIVING INSTRUCTOR) Specimen Impressions Performed At PACS/VR/DOSE Limited exam due to patient motion. The NG tube appear s to terminate in the distal stomach. RL: [id number] AFC: [id number] Narrative Performed At Ordering physician: JACOB BRADEN PACS/VR/DOSE INDICATION: NG tube reinsertion COMPARISON: Abdomen dated 09/22/2020 at 1 752 FINDINGS: Single AP view of the abdomen. The exam is limited by patient motion, but the NG tube appears to termi jose ramon in the distal stomach. Procedure Note [facility], Radiant Results Inft User - 2019 1:13 AM STUDENT DRIVING INSTRUCTOR Ordering physician: JACOB BRADEN INDICATION: NG tube reinsertion COMPARISON: Abdomen dated 09/22/2020 at 1 752 FINDINGS: Single AP view of the abdomen. The exam is limited by patient motion, but the NG tube appears to termi jose ramon in the distal stomach. IMPRESSION Limited exam due to patient motion. The NG tube appears to terminate in the distal stomach. RL: [id number] AFC: [id number] Performing Organization Address City/State/Zipcode Phone Number PACS/VR/DOSE POCT GLUCOSE (AUTOMATED) (09/22/2020 11:58 PM STUDENT DRIVING INSTRUCTOR) Pathologist Sig nature POCT GLU 108 70 - 110 mg/dL [facility] Specimen Blood Performing Organization Address City/[facility]/Zipcode Phone Number [facility] CLIA: [id number] [place] [address] POCT GLUCOSE (AUTOMATED) (09/22/2020 10:04 PM STUDENT DRIVING INSTRUCTOR) Pathologist Sig nature POCT GLU 94 70 - 110 mg/dL [facility] Specimen Blood Performing Organization Address [facility] Phone Number [facility] CLIA: [id number] [place] [address] POCT GLUCOSE (AUTOMATED) (09/22/2020 9:07 PM STUDENT DRIVING INSTRUCTOR) Pathologist Sig nature POCT GLU 92 70 - 110 mg/dL [facility] Specimen Blood Performing Organization Address [facility] Phone Number [facility] CLIA: [id number] [place] [address] POCT GLUCOSE (AUTOMATED) (09/22/2020 7:32 PM STUDENT DRIVING INSTRUCTOR) Pathologist Sig nature POCT GLU 95 70 - 110 mg/dL [facility] Specimen Blood Performing Organization Address [facility] Phone Number [facility] CLIA: [id number] [place] [address] POCT GLUCOSE (AUTOMATED) (09/22/2020 6:24 PM STUDENT DRIVING INSTRUCTOR) Pathologist Sig nature POCT GLU 88 70 - 110 mg/dL [facility] Specimen Blood Performing Organization Address [facility] Phone Number [facility] CLIA: [id number] [place] [address] XR KUB (09/22/2020 6:14 PM STUDENT DRIVING INSTRUCTOR) Specimen Impressions Performed At 1. Tip of the NG tube is in satisfactory position PACS/VR/DOSE Narrative Performed At This result has an attachment that is no t available. EXAM: KUB PACS/VR/DOSE HISTORY: NGT placement confirmation TECHNIQUE:KUB radiograph is obtained. COMPARISON: Similar study obtained at 2:10 PM FINDINGS:Since the previous examination Dobbhoff tube has been removed. A nasogastric tube has been placed with its tip in the a ntrum of the stomach. Bowel gas pattern is nonobstructive. Procedure Note [facility], Radiant Results Inft User - 2019 8:09 AM STUDENT DRIVING INSTRUCTOR EXAM: KUB HISTORY: NGT placement confirmation TECHNIQUE:KUB radiograph is obtained. COMPARISON: Similar study obtained at 2: 10 PM FINDINGS:Since the previous examination Dobbhoff tube has been removed. A nasogastric tube has been placed with it s tip in the antrum of the stomach. Bowel gas pattern is nonobstructive. IMPRESSION 1. Tip of the NG tube is in satisfactory position Performing Organization Address [facility] Phone Number PACS/VR/DOSE MRSA / MSSA Screen by PCR, Nares (09/22/2020 4:56 PM STUDENT DRIVING INSTRUCTOR) Pathologist [facility] MRSA Screen by PCR, Negative Negative [facility] Nares SERVICES MSSA Screen by PCR, Positive (A) Negative [facility] Nares SERVICES MRSA/MSSA Positive? Yes (A) No [facility] SERVICES Specimen Swab - NARE, LEFT SIDE Narrative Performed At A positive test result does not necessarily indicate t [facility] LABORATORY SERVICES presence of viable organism. Performing Organization Address [facility] Phone Number [facility] SERVICES CLIA: [id number] [place] [address] [place] [address] POCT GLUCOSE (AUTOMATED) (09/22/2020 4:38 PM STUDENT DRIVING INSTRUCTOR) Pathologist [facility] POCT GLU 86 70 - 110 mg/dL [facility] Specimen Blood Performing Organization Address [facility] Phone Number [facility] CLIA: [id number] [place] [address] Abdominal 1 View - To confirm nasogastric tube placement. (09/22/2020 2:25 PM STUDENT DRIVING INSTRUCTOR) Specimen Impressions Performed At PACS/VR/DOSE Tip of the Dobbhoff tube is at the gastroesophageal ju nction and should be advanced Narrative Performed At EXAM: Abdomen one view PACS/VR/DOSE HISTORY: NGT placement TECHNIQUE:An AP view of the abdomen is o btained. FINDINGS:Tip of the Dobbhoff tube is at the level of t he gastroesophageal junction. The bowel gas pattern is nonobstructive. Air is identified in the colon with fecal material noted in the a scending colon. Scoliosis of the lower lumbar spine is s een with convexity to the left. Changes of spondylosis and facet degenerative disease are seen in the lower lumbar spine. Gallbladder is removed. Procedure Note [facility], Radiant Results Inft User - 2019 2:33 PM STUDENT DRIVING INSTRUCTOR EXAM: Abdomen one view HISTORY: NGT placement TECHNIQUE:An AP view of the abdomen is o btained. FINDINGS:Tip of the Dobbhoff tube is at the level of the gastroesophageal junction. The bowel gas pattern is nonob structive. Air is identified in the colon with fecal material noted in the a scending colon. Scoliosis of the lower lumbar spine is s een with convexity to the left. Changes of spondylosis and facet degener ative disease are seen in the lower lumbar spine. Gallbladder is removed. IMPRESSION Tip of the Dobbhoff tube is at the gastr oesophageal junction and should be advanced Performing Organization Address City/[facility] Phone Number PACS/VR/DOSE POCT GLUCOSE (AUTOMATED) (09/22/2020 10:16 AM STUDENT DRIVING INSTRUCTOR) Pathologist Sig nature POCT GLU 89 70 - 110 mg/dL [facility] Specimen Blood Performing Organization Address [facility] Phone Number [facility] CLIA: [id number] [place] [address] POCT GLUCOSE (AUTOMATED) (09/22/2020 7:44 AM STUDENT DRIVING INSTRUCTOR) Pathologist Sig nature POCT GLU 76 70 - 110 mg/dL [facility] Specimen Blood Performing Organization Address City/[facility] Phone Number [facility] CLIA: [id number] [place] [address] PROTHROMBIN TIME / INR (09/22/2020 7:15 AM STUDENT DRIVING INSTRUCTOR) PROTIME PATIENT 17.2 (H) 12.0 - 14.7 [facility] LABORATORY INR 1.5Comment: Normal [facility] INR <1.1; Warfarin [facility] Therapeutic range LABORATORY 2.0 to 3.0 or 2.5 to 3.5, depending upon the indications. Specimen Blood - VENOUS Performing Organization Address City/[facility] Phone Number [facility] CLIA: [id number] [place] [address] LABORATORY [address] [address] URINALYSIS (09/22/2020 6:51 AM STUDENT DRIVING INSTRUCTOR) Pathologist Sig nature APPEARANCE Cloudy (A) Clear [facility] COLOR Yasmine (A) Yellow [facility] PH 5.0 4.8 - 8.0 [facility] SP GRAVITY 1.018 1.003 - 1.030 [facility] GLU U QUAL Normal Normal [facility] BLOOD 2+ (A) Negative [facility] KETONES 5 mg/dL (A) Negative [facility] PROTEIN 30 mg/dL (A) Negative [facility] UROBILIN 4.0 mg/dL (A) Normal [facility] BILIRUBIN Negative Negative [facility] NITRITE Positive (A) Negative [facility] LEUK DIRK 500/uL (A) Negative [facility] RBC/HPF 44 (H) 0 - 3 HPF [facility] WBC/HPF >182 (H) 0 - 5 HPF [facility] BACTERIA Many (A) Negative [facility] MUCOUS Slight (A) Negative LPF [facility] AMORPHOUS Rare Rare HPF [facility] SQ EPITH 1 HPF [facility] WBC CLUMPS 54 (H) <=1 HPF [facility] Specimen Urine - URINE, CLEAN CATCH Performing Organization Address City/State/Zipcode Phone Number [facility] CLIA: [id number] [place] [address] [address] HEAD WO CONTRAST (09/22/2020 6:40 AM STUDENT DRIVING INSTRUCTOR) Specimen Impressions Performed At PACS/VR/DOSE No acute intracranial hemorrhage or mass affect. Preliminary Report Dictated by Resident: Franc Zavaleta MD., have reviewed this study and a gree with the above report. Narrative Performed At CT HEAD WO CONTRAST PACS/VR/DOSE HISTORY: Altered mental status (AMS), un clear cause COMPARISON: None. TECHNIQUE: Axial CT of the head was perf ormed and reconstructed at 5 mm intervals. Coronal and sagittal reformat joseph images were generated. FINDINGS: No intracranial abnormality such as hemorrhage, edema, mass-effect, midline shift, or extra axial fluid collection i s appreciated. The anderson-white matter differentiation is preserved. The ventricles, sulci, and basal cistern s are within normal limits. No hydrocephalus is seen. The calvarium and skull base are intact. Diffuse subcutaneous scalp swelling is seen, possibly related to anasarca in the setting of cirrhosis. Mild mucoperiosteal thickening affects t he maxillary sinuses, likely secondary to chronic sinus disease. The mastoid air cells are clear. Procedure Note [facility], Radiant Results Inft User - 2019 8:30 AM STUDENT DRIVING INSTRUCTOR CT HEAD WO CONTRAST HISTORY: Altered mental status (AMS), un clear cause COMPARISON: None. TECHNIQUE: Axial CT of the head was perf ormed and reconstructed at 5 mm intervals. Coronal and sagittal reformat joseph images were generated. FINDINGS: No intracranial abnormality such as hemo rrhage, edema, mass-effect, midline shift, or extra axial fluid collection i s appreciated. The anderson-white matter differentiation is preserved. The ventricles, sulci, and basal cistern s are within normal limits. No hydrocephalus is seen. The calvarium and skull base are intact. Diffuse subcutaneous scalp swelling is seen, possibly related to an asarca in the setting of cirrhosis. Mild mucoperiosteal thickening affects t he maxillary sinuses, likely secondary to chronic sinus disease. The mastoid air cells are clear. IMPRESSION No acute intracranial hemorrhage or mass affect. Preliminary Report Dictated by Resident: Franc Zavaleta MD., have reviewed is study and agree with the above report. Performing Organization Address [facility] Phone Number PACS/VR/DOSE POCT GLUCOSE (AUTOMATED) (09/22/2020 6:10 AM STUDENT DRIVING INSTRUCTOR) Pathologist Sig nature POCT GLU 47 (LL) 70 - 110 mg/dL [facility] Specimen Blood Performing Organization Address City/[facility]/Zipcode Phone Number [facility] CLIA: [id number] [place] [address] [address] Lactic Acid Whole Blood (09/22/2020 5:57 AM STUDENT DRIVING INSTRUCTOR) Pathologist Sig nature LACTIC ACID 2.54 mmol/L [facility] Specimen Blood - VENOUS Performing Organization Address [facility] Phone Number [facility] CLIA: [id number] [place] [address] XR CHEST 1 VW (09/22/2020 5:27 AM STUDENT DRIVING INSTRUCTOR) Specimen Impressions Performed At PACS/VR/DOSE Changes of mild pulmonary vascular congestion with tra ce left-sided pleural effusion. A round opacity superimposed over inferi or angle of the right scapula. Recommend correlation with TRAN view to r ule out true lesions versus summation of shadows. Preliminary Report Dictated by Resident: Calista Xiao MD., have reviewed this study and agree with the above report. Narrative Performed At This result has an attachment that is no t available. PACS/VR/DOSE EXAM: XR CHEST 1 VW HISTORY: AMS TECHNIQUE: AP view of the chest COMPARISON: 02/22/2018 FINDINGS: Changes of mild pulmonary vascular congestion are demo nstrated. There is a round opacity superimposed over inferior tip of the ri ght scapula. Trace-volume pleural effusion blunts the left costophr enic angle. No pneumothorax. The heart size is normal. No acute bony abnormality. Procedure Note [facility], Radiant Results Inft User - 2019 8:46 AM STUDENT DRIVING INSTRUCTOR EXAM: XR CHEST 1 VW HISTORY: AMS TECHNIQUE: AP view of the chest COMPARISON: 02/22/2018 FINDINGS: Changes of mild pulmonary vascular conge stion are demonstrated. There is a round opacity superimposed over inferior tip of the right scapula. Trace-volume pleural effusion blunts the left costophrenic angle. No pneumothorax. The heart size is normal. No acute bony abnormality. IMPRESSION Changes of mild pulmonary vascular conge stion with trace left-sided pleural effusion. A round opacity superimposed over inferi or angle of the right scapula. Recommend correlation with TRAN view to r ule out true lesions versus summation of shadows. Preliminary Report Dictated by Resident: Calista Xiao MD., have review ed this study and agree with the above report. Performing Organization Address City/State/Zipcode Phone Number PACS/VR/DOSE LAB ONLY COVID INTERPRETATION (09/22/2020 5:15 AM STUDENT DRIVING INSTRUCTOR) COVID DMT Interpretation/Recommendations: [facility] Interpretation SERVICES Molecular NAAT Tests for Active Infection with the LÓPEZ S-CoV-2 Virus: This result indicates that t he patient has tested negative on one occasion for the SARS-CoV-2 virus that causes COVID-19 illness. This most likely indicates that the patient does not have an active infe ction with the SARS-CoV-2 vi hannah. However, infection is not completely ruled out as the false negative rate for molecular NAAT testing using a nasopharyngeal sample can be up to 30%, mostly dependent on the timing of sample collect ion in relation to illness onset and any deficiencies in sampling techniques. If the patient continues to have persistent or worsening symptoms concerning for COVID-19 illnes s, a repeat NAAT test (PCR, Rapid ID Now, etc.) should be performed, at which time the SARS-CoV-2 virus - if present - may have reached a detectable viral load (usually peaking by the end of the first week of symptoms). Tests for IgM and/or IgG Antibodies to SARS-CoV-2 Viru s: Testing for IgM and IgG anti bodies 1-3 weeks after illness onset will indicate whether the patient has produced antibodies to the virus. At this time, it is not known if the production of antibodies - s pecifically IgG antibodies - indicates whether the patient is immune to future infections with the SARS-CoV-2 virus. Interpretation Result Comments: These interpretation comment s are based upon aggregate COVID-19 test results pooled from [facility]. They apply to the following tests offered at [facility] and assume the acceptable specimen type(s) were used: A. Tests for the Identification of SARS-CoV-2 RNA (Mol ecular NAAT Tests): - SARS-CoV-2 PCR assays including [place] Aptima, [place] Fusion, Farrell RealTime, and Communities for Cause Xpert Xpress. - SARS-CoV-2 Rapid ID NOW by the ID NOW as say. B. Tests for the Identification of SARS-CoV-2 Antibodi es: - Chemiluminesce nt immunoassays including Access SARS-CoV-2 IgM (DXI 600), VITROS Cbbc-WHME-DrD-2 IgG (Vitros 5600 and Vitros 3600), and Farrell SARS-CoV-2 IgG (POWER BUILDER DEVELOPER I System). These interpretations are au topopulated into [facility] based on computerized algorithms matching an interpretation code to the patient's set of test results, and a clinical pathologist evaluates the comments for accuracy. However, thes e comments do not consider testing a patient may have had outside of the [facility] system. If results for COVID-19 infection continue to be negative in the context of a suspected viral respiratory illness, i t is possible the patient may have an infection with another respiratory virus. Influenza testing and a respiratory pathogen panel if clinically indicated may be beneficial i n this setting. If there con tinues to be a high degree of clinical suspicion for COVID-19 illness despite multiple negative tests on nasopharyngeal specimens, then it may be necessary to test the patien t for the SARS-CoV-2 virus u sing lower respiratory tract samples (such as sputum, bronchoalveolar lavage fluid (BAL), tracheal aspirate, etc.). COVID Results SARS-CoV-2 Rapid ID NOW (no units) [facility] Date Value SERVICES 09/22/2020 Not Detected Specimen Swab - NASOPHARYNGEAL SWAB Performing Organization Address City/State/Zipcode Phone Number [facility] SERVICES CLIA: [id number] [place] [address] [place] [address] COVID-19 (ID NOW RAPID TESTING) (09/22/2020 5:15 AM STUDENT DRIVING INSTRUCTOR) SARS-CoV-2 Rapid ID Not Detected Not Detected [facility] Specimen Swab - NASOPHARYNGEAL SWAB Narrative Performed At ID NOW COVID-19 Assay is an isothermal nucleic [facility] acid amplification test intended for the qualitative detection of nucleic acid from SARS-CoV-2 viral RNA in nasopharyngeal (SHOOTER'S HELPER) specimens. It is used under Emergency Use Authorization (EUA) by FDA. The limit of detection (LOD) of the assay is 125 Genome Equivalents/mL. A positive result is indicative of the presence of SARS-CoV-2 RNA. Clinical correlation with patient history and other diagnostic information is necessary to determine patient infection status. A negative (Not Detected) result does not preclude SARS-CoV-2 infection. In patients with clinical symptoms and other tests that are consistent with SARS-CoV-2 infection, negative results should be treated as presumptive negative and a new specimen should be tested with alternative PCR molecular test. Invalid: Please collect a new specimen for repeat patient testing if clinically indicated. Performing Organization Address [facility] Phone Number [facility] CLIA: [id number] [place] [address] [address] [facility] [address] AMMONIA, PLASMA (09/22/2020 5:13 AM STUDENT DRIVING INSTRUCTOR) Pathologist Sig [facility] AMMONIA 109 (H)Comment: 9 - 33 umol/L [facility] LABORATORY Specimen Blood - VENOUS Performing Organization Address [facility] Phone Number [facility] CLIA: [id number] [place] [address] [place] [place] [address] TROPONIN I (09/22/2020 5:12 AM STUDENT DRIVING INSTRUCTOR) Pathologist [facility] TROPONIN I 0.171 (H) <=0.034 ng/mL [facility] Specimen Blood - VENOUS Narrative Performed At Equal or Less than 0.034 ng/ml---Normal [facility] Note: Cardiac troponin begins to rise 3-4 hours after the onset of ischemia. Repeat in 4-6 hours if the sample was drawn within 3-4 hours of the onset of the symptom and found normal. Between 0.035 and 0.120 ng/mL--- Borderline. Questionable myocardial injury or necros is Note: Serial measurement may be necessary to confirm or exclude the diagnosis of myocardial injury or necrosis; Clinical correlation (symptoms, EKGs, imaging studies, and others) required; Repeat in 4-6 hours if clinically indicated. Equal or Higher than 0.121 ng/mL---Abnormal. Myocardial Injury or Necrosis Likely Biotin has been reported to cause a negative bias, interpret results relative to patient's use of biotin. Performing Organization Address [facility] Phone Number [facility] CLIA: [id number] [place] [address] LABORATORY [facility] [address] N-TERMINAL PRO-BNP (09/22/2020 5:12 AM STUDENT DRIVING INSTRUCTOR) Pathologist [facility] NT-proBNP 544 (H) <=125 pg/mL [facility] Specimen Blood - VENOUS Narrative Performed At [facility] has been reported to cause a negative [facility] bias, interpret results relative to patient's use of biotin. Performing Organization Address City/State/Zipcode Phone Number [facility] CLIA: [id number] [place] [address] COMP. METABOLIC PANEL (12684) (09/22/2020 5:12 AM STUDENT DRIVING INSTRUCTOR) [facility] nature NA 140 135 - 145 [facility] mmol/L [facility] K 3.7 3.5 - 5.0 [facility] mmol/L [facility] LAB[facility]ORY CL 110 (H) 98 - 108 mmol/L [facility] CO2 TOTAL 22 (L) 23 - 31 mmol/L [facility] AGAP 8 2 - 16 [facility] BUN 22 7 - 23 mg/dL [facility] GLUCOSE 49 (LL) 70 - 110 mg/dL [facility] CREATININE 0.79 0.50 - 1.04 [facility] mg/dL [facility] TOTAL BILI 4.1 (H) 0.1 - 1.1 mg/dL [facility] CALCIUM 8.4 (L) 8.6 - 10.6 [facility] mg/dL [facility] T PROTEIN 5.7 (L) 6.3 - 8.2 g/dL [facility] ALBUMIN 2.4 (L) 3.5 - 5.0 g/dL [facility] ALK PHOS 91 34 - 122 U/L [facility] ALTv 72 (H) 5 - 35 U/L [facility] AST(SGOT) 166 (H) 13 - 40 U/L [facility] eGFR Calculation 76.4 mL/min/1.73m2 [facility] ([facility] [place] LABORATORY [place]) eGFR Calculation 92.6 mL/min/1.73m2 [facility] () [facility] Specimen Blood - VENOUS Narrative Performed At [facility] Glomerular Filtration Rate (GFR) [facility] LABORATORY and Staging of Kidney Disease* + + +- + | GFR (mL/min/1.73 m2) | With Kidney Damage | Without Kidney Damage + + +- + | >90 | Stage one | Normal + + +- + | 60-89 | Stage two | Decreased GFR + + +- + | 30-59 | Stage three | Stage three + + +- + | 15-29 | Stage four | Stage four + + +- + | <15 (or dialysis) | Stage five | Stage five + + +- + *Each stage assumes the associated GFR level has been in effect for at least three months. Stages 1 to 5, with or without kidney disease, indicate chronic kidney disease. Notes: Determination of stages one and two (with eGFR >59mL/min/1.73 m2) requires estimation of kidney damage for at least three months as defined by structural or functional abnormalities of the kidney, manifested by either: Pathological abnormalities or Markers of kidney damage (including abnormalities in the composition of the blood or urine or abnormalities in imaging tests). Performing Organization Address City/State/Zipcode Phone Number [facility] CLIA: [id number] [place] [address] CBC WITH DIFF (09/22/2020 5:12 AM STUDENT DRIVING INSTRUCTOR) Pathologist Sig nature WBC 11.45 (H) 4.30 - 11.10 [facility] 10*3/L [facility] RBC 3.90 (L) 3.93 - 5.25 [facility] 10*6/L [facility] LAB[facility]ORY HGB 10.7 (L) 11.6 - 15.0 [facility] g/dL [facility]AT[facility] HCT 34.6 (L) 35.7 - 45.2 % [facility] MCV 88.7 80.6 - 95.5 fL [facility] MCH 27.4 25.9 - 32.8 pg [facility] MCHC 30.9 (L) 31.6 - 35.1 [facility] g/dL [facility] LABORATORY RDW-SD 56.5 (H) 39.0 - 49.9 fL [facility] RDW-CV 18.5 (H) 12.0 - 15.5 % [facility] PLT 106 (L) 166 - 358 [facility] 10*3/L [facility] LAB[facility]ORY MPV 11.3 9.5 - 12.9 fL [facility] NRBC/100 WBC 0.0 0.0 - 10.0 /100 [facility] WBCs [facility] NRBC x10^3 <0.01 10*3/L [facility] GRAN MAT (NEUT) % 73.2 % [facility] IMM GRAN % 1.60 % [facility] LYMPH % 15.5 % [facility] MONO % 7.9 % [facility] EOS % 1.0 % [facility] BASO % 0.8 % [facility] GRAN MAT x10^3(ANC) 8.39 (H) 1.88 - 7.09 [facility] 10*3/uL HOSPITAL LABORATORY IMM GRAN x10^3 0.18 (H) 0.00 - 0.06 [facility] 10*3/uL HOSPITAL LABORATORY LYMPH x10^3 1.77 1.32 - 3.29 [facility] 10*3/uL [facility] LAB[facility]ATORY MONO x10^3 0.91 0.33 - 0.92 [facility] 10*3/uL [facility] LAB[facility]ATORY EOS x10^3 0.11 0.03 - 0.39 [facility] 10*3/uL [facility] BASO x10^3 0.09 (H) 0.01 - 0.07 [facility] 103/uL [facility] Specimen Blood - VENOUS Performing Organization Address City/State/Zipcode Phone Number [facility] CLIA: [id number] [place], [place] [id number] LABORATORY [address] documented in this encounter Visit Diagnoses Diagnosis Hepatic encephalopathy - Primary Altered mental status, unspecified alter ed mental status type Hypoglycemia Hypoglycemia, unspecified Chronic anemia Anemia, unspecified Thrombocytopenia Thrombocytopenia, unspecified NSTEMI (non-ST elevated myocardial infar ction) Acute myocardial infarction, subendocard ial infarction, episode of care unspecified Complicated UTI (urinary tract infection ) Urinary tract infection, site not specif ied documented in this encounter Administered Medications Medication Order MAR Action Action Date Dose Rate Site cefTRIAXone (ROCEPHIN) 1,000 mg Given 09/23/2020 9:25 AM STUDENT DRIVING INSTRUCTOR 1, 000 mg in NaCl 0.9% (NS) 50 mL MINI-BAG 1,000 mg, IV Piggyback, Q24H ABX, First dose (after last modification) on Tue09/23/20 at 0745, Until Discontinued, 50 mL, Reason for Anti-Infective: Documented Infection, Documented Infection Site: Urine, Duration of Therapy: 7 days D5W IV infusion 1,000 mL New Bag 09/24/2020 12:29 AM STUDENT DRIVING INSTRUCTOR 1,000 mL 75 mL/hr at 75 mL/hr, IV Infusion, CONTINUOUS, Starting Tue09/22/20 at 1730, Until Discontinued, Routine New Bag 09/23/2020 11:42 AM STUDENT DRIVING INSTRUCTOR 1,000 mL 75 mL/hr lactulose (CEPHULAC) solution 30 mL Given 09/24/2020 5:16 AM STUDENT DRIVING INSTRUCTOR 30 mL 30 mL, Oral, Q8H, First dose (after last modification) on Tue09/23/20 at 1400, Until Discontinued, Routine Given 09/23/2020 3:13 PM STUDENT DRIVING INSTRUCTOR 30 mL octreotide (SANDOSTATIN) 1,250 New Bag 09/24/2020 4:06 AM STUDENT DRIVING INSTRUCTOR 50 mcg/hr 10 mL/hr mcg in NaCl 0.9% (NS) 250 mL infusion 50 mcg/hr (10 mL/hr), IV Infusion, CONTINUOUS, Starting Tue09/23/20 at 0200 New Bag 09/23/2020 2:26 AM STUDENT DRIVING INSTRUCTOR 50 mcg/hr 10 mL/hr pantoprazole (PROTONIX) 40 mg in NaCl 0.9% Given 09/24/2020 12:2 9 AM STUDENT DRIVING INSTRUCTOR 40 mg (NS) 100 mL MINI-BAG 40 mg, IV Piggyback, Q12HA1, First dose on Tue09/23/20 at 0215, Until Discontinued, 100 mL Given 09/23/2020 11:42 AM STUDENT DRIVING INSTRUCTOR 40 mg Given 09/23/2020 2:17 AM STUDENT DRIVING INSTRUCTOR 40 mg rifAXIMin (XIFAXAN) tablet 550 mg Given 09/23/2020 9:25 AM STUDENT DRIVING INSTRUCTOR 550 mg 550 mg, Oral, BID, First dose on Tue09/22/20 at 1100, Until Discontinued, Routine, Reason for Anti-Infective: Empiric Non-Surgical Prophylaxis, Duration of therapy: 7 days, Specific indication: Hepatic Encephalopathy Given 09/22/2020 7:47 PM STUDENT DRIVING INSTRUCTOR 550 mg Given 09/22/2020 2:12 PM STUDENT DRIVING INSTRUCTOR 550 mg Medication Order MAR Action Action Date Dose Rate Site cefTRIAXone (ROCEPHIN) 1,000 mg Given 09/22/2020 7:42 AM STUDENT DRIVING INSTRUCTOR 1, 000 mg in NaCl 0.9% (NS) 50 mL MINI-BAG 1,000 mg, IV Piggyback, Q12H ABX, First dose on Tue09/22/20 at 0845, Until Discontinued, 50 mL, Reason for Anti-Infective: Documented Infection, Documented Infection Site: Urine, Duration of Therapy: 7 days D5W 0.45% NaCl (1/2NS) IV New Bag 09/22/2020 7:51 AM STUDENT DRIVING INSTRUCTOR 1,000 mL 250 mL/hr infusion 1,000 mL at 250 mL/hr, 1,000 mL, IV Infusion, ONCE, 1 dose, Tue09/22/20 at 0800, NADINE dextrose 50 % in water (D50W) injection 50 mL Given 09/22/2020 6:17 AM STUDENT DRIVING INSTRUCTOR 50 mL 50 mL, Intravenous, ONCE, 1 dose, Tue09/22/20 at 0730, STAT enoxaparin (LOVENOX) injection 40 mg Given 09/22/2020 2:10 PM STUDENT DRIVING INSTRUCTOR 40 mg Abdo men-SC 40 mg, Subcutaneous, Q24H, First dose on Tue09/22/20 at 1200, Until Discontinued, Routine FENTanyl PF (SUBLIMAZE (PF)) injection 50 Given 09/22/2020 5:23 AM STUDENT DRIVING INSTRUCTOR 50 mcg mcg 50 mcg, Slow IV Push, ONCE, 1 dose, Tue09/22/20 at 0530, STAT KCL 20 mEq/15 mL solution 40 mEq Given 09/23/2020 3:45 AM STUDENT DRIVING INSTRUCTOR 40 mEq 40 mEq, Oral, ONCE NOW, 1 dose, Tue09/23/20 at 0400, Routine lactulose (CEPHULAC) solution 30 mL Given 09/23/2020 5:58 AM STUDENT DRIVING INSTRUCTOR 30 mL 30 mL, Oral, Q8H, First dose on Tue09/22/20 at 1400, Until Discontinued, Routine Given 09/22/2020 9:58 PM STUDENT DRIVING INSTRUCTOR 30 mL Given 09/22/2020 2:10 PM STUDENT DRIVING INSTRUCTOR 30 mL lactulose (CEPHULAC) solution 45 mL Given 09/22/2020 7:08 AM STUDENT DRIVING INSTRUCTOR 45 mL 45 mL, Rectal, ONCE, 1 dose, Tue09/22/20 at 0800, NADINE LORazepam (ATIVAN) injection 2 mg Given 09/22/2020 2:11 PM STUDENT DRIVING INSTRUCTOR 2 mg 2 mg, Slow IV Push, ONCE, 1 dose, Tue09/22/20 at 1445, Routine phytonadione (VITAMIN K) 10 mg in NaCl 0.9% Given 09/23/2020 2:25 AM STUDENT DRIVING INSTRUCTOR 10 mg (NS) piggyback 10 mg, IV Piggyback, ONCE, 1 dose, Tue09/23/20 at 0300, 50 mL potassium chloride 20 mEq/100 mL Given 09/23/2020 5:54 AM STUDENT DRIVING INSTRUCTOR 2 0 mEq 50 mL/hr (KCL) 20 mEq/100 mL RTU IVPB 20 mEq 20 mEq, IV Piggyback, Q2H ES, 2 doses, First dose on Tue09/23/20 at 0400, Last dose on Tue09/23/20 at 0600, 100 mL Given 09/23/2020 3:47 AM STUDENT DRIVING INSTRUCTOR 20 mEq 50 mL/hr documented in this encounter Additional Health Concerns Infection Onset Date Last Indicated Resolved Time COVID-19 Rule Out 09/22/2020 09/22/2020 09/22/2020 5: 51 AM STUDENT DRIVING INSTRUCTOR documented as of this encounter
--- OUTSIDE RECORDS SUMMARY | 2020-10-21 23:45 | XMS REPORT | Summary of Care ---
:1970 Author Organization [address] [address] Care Team Providers Name Role Phone Pcp, Does Not Have A Primary Care Provider Reason for Visit Reason Comments Referral/consult chp referral; unable to cont act pt; left vm on daughter's machine Encounter Details Date Type Department Care Team Description 10/13/2020 Patient Outreach [facility] Diane aFllon RN Referral/consult [address] ([facility] to contact [place], [place] [address] pt; left vm on [phone] daughter's mach ine) Allergies Active Allergy Reactions Severity Noted Date Comments Ondansetron Hcl (Pf) Hives 09/26/2018 documented as of this encounter (statuses as of 10/13/2020) Medications No known medicationsdocumented as of this encounter (statuses as of 10/13/2020) Active Problems Problem Noted Date Hepatic encephalopathy 09/22/2020 GIB (gastrointestinal bleeding) 09/26/2018 Gastrointestinal hemorrhage with hematemesis 8 Overview: Added automatically from request for ines ramirez [id number] Coffee ground emesis 02/04/2018 Hematemesis 01/26/2018 Abdominal pain 01/23/2018 Pancreatitis 12/24/2017 Right upper quadrant abdominal pain 12/24/2017 Overview: Added automatically from request for ines ramirez [id number] documented as of this encounter (statuses as of 10/13/2020) Immunizations Name Administration Dates Next Due Influenza Virus Vaccine Quad IM 3+ YRS 02/07/2018, 8 Pneumococcal Polysaccharide, PPSV23 (PNEUMOVAX) 12/29/2017 Twinrix (hep a/hep b) 02/07/2018 documented as of this encounter Social History Tobacco Use Types Packs/Day Years Used Date Former Smoker Smokeless Tobacco: Never Used Comments: Pt is a poor historian and gabriel ble to recall Alcohol Use Drinks/Week oz/Week Comments Yes Former Sex Assigned at Date Recorded Not on file COVID-19 Exposure Response Date Recorded In the last month, have you been in contact with No / Unsure 10/01/2020 9:58 PM SHIP ERECTOR someone who was confirmed or suspected to have Coronavirus / COVID-19? documented as of this encounter Last Filed Vital Signs Not on filedocumented in this encounter Progress Notes Diane Fallon, RN - 10/13/2020 3:07 PM CSTSummary: CHP Referral closed CHP REFERRAL: 2nd attempt CHP CM attempted to contact patient on her s/o number, which was out of service. CM then left vm on her listed daughter's number. CM will close out referral d/t inability to contact the patient. ABBY Patel, RN, [facility] Outpatient Veterinary TechnologistDance MasterNovant Health [facility] O: [phone] M: [phone] documented in this encounter Plan of Treatment Health Maintenance Due Date Last Done Comments Depression Screening 1980 DTaP,Tdap,and Td Vaccines (1 - Tdap) 1987 PAP SMEAR 1989 Breast Cancer Screening (MAMMOGRAM) 2008 COLON CANCER SCREENING FIT DNA EVERY 3 2018 YEARS COLON CANCER SCREENING SIGMOIDOSCOPY EVERY 2018 5 YEARS COLONOSCOPY 2018 Zoster Recombinant Vaccine (SHINGRIX) (1 2018 of 2) COLON CANCER SCREENING ANNUAL FIT/FOBT 12/24/2018 8 Colorectal Cancer Screening 12/24/2018 INFLUENZA VACCINE (#1) 2020 02/07/2018, 12/29/2017 PNEUMOCOCCAL 0-64 YEARS COMBINED SERIES Completed 12/30/19 18 documented as of this encounter Results Not on filedocumented in this encounter
--- OUTSIDE RECORDS SUMMARY | 2020-10-21 23:45 | XMS REPORT | Summary of Care ---
:1970 Author Organization [facility] - [facility] Address [address] [place] [id number] Care Team Providers Name Role Phone Pcp, Does Not Have A Primary Care Provider Reason for Referral Radiology Services (Routine) Status Reason Specialty Diagnoses / Referred By Referred To Procedures Contact Contact New Request Diagnostic Diagnoses Hepatic encephalopathy Olivia, Radiology Procedures IR PARACENTESIS MD Cristofer [address] [place] [id number] Reason for Visit Reason Comments Altered mental status Auth/Cert Status Reason Specialty Diagnoses / Referred By Referred To Procedures Contact Contact Emergency Medicine [facility] [address] [id number] Fax: Encounter Details Date Type Department Care Team Description 10/01/2020 - [facility] Ruben Boss MD [address] [facility] [id number] [place], [place] [id number] Hepatic encephalopathy 10/03/2020 Encounter Medicine/Surgery Jordi Garcia MD [address] [place] [address] [id number] CLC 4A Cristofer Baker MD [address] [place] [address] 200 [place], [place] [id number] 200 [facility] 602 [place] [address] [phone] [place] [id number] Allergies Active Allergy Reactions Severity Noted Date Comments Ondansetron Hcl (Pf) Hives 09/26/2018 documented as of this encounter (statuses as of 10/03/2020) Medications Medication Sig Dispensed Refills Start Date End Date Status rifAXIMin 200 mg Take 3 60 tablet 0 09/27/2018 10/03/2020 D iscontinued tablet tablets by mouth 2 (two) times daily. x 10 days HG furosemide 20 mg Take 1 tablet 30 tablet 0 05/11/2019 10/03/20 20 Discontinued tabletIndications: by mouth Cirrhosis of liver every without ascites, morning. unspecified hepatic cirrhosis type lactulose 10 gram/15 Take 30 mL by 0 10/03 Discontinued mL oral solution mouth daily. levoFLOXacin 500 mg Take 1 tablet 3 tablet 0 09/24/202010/03 Discontinued tabletIndications: by mouth Hepatic every 24 encephalopathy (twenty-four) hours. documented as of this encounter (statuses as of 10/03/2020) Active Problems Problem Noted Date Hepatic encephalopathy 09/22/2020 GIB (gastrointestinal bleeding) 09/26/2018 Gastrointestinal hemorrhage with hematemesis 8 Overview: Added automatically from request for ines ramirez [id number] Coffee ground emesis 02/04/2018 Hematemesis 01/26/2018 Abdominal pain 01/23/2018 Pancreatitis 12/24/2017 Right upper quadrant abdominal pain 12/24/2017 Overview: Added automatically from request for ines ramirez [id number] documented as of this encounter (statuses as of 10/03/2020) Immunizations Name Administration Dates Next Due Influenza [...] with No / Unsure 10/01/2020 9:58 PM MOLECULAR BIOLOGY DIRECTOR someone who was confirmed or suspected to have Coronavirus / COVID-19? documented as of this encounter Last Filed Vital Signs Vital Sign Reading Time Taken Comments Blood Pressure 140/76 10/03/2020 8:06 AM MOLECULAR BIOLOGY DIRECTOR Pulse 106 10/03/2020 8:06 AM MOLECULAR BIOLOGY DIRECTOR Temperature 36.7 C (98.1 F) 10/03/2020 8:06 AM MOLECULAR BIOLOGY DIRECTOR Respiratory Rate 18 10/03/2020 8:06 AM MOLECULAR BIOLOGY DIRECTOR Oxygen Saturation 97% 10/03/2020 8:06 AM MOLECULAR BIOLOGY DIRECTOR Inhaled Oxygen Concentration - - Weight 79.5 kg (175 lb 4.3 oz) 10/01/2020 10:00 PM MOLECULAR BIOLOGY DIRECTOR Height 162.6 cm (5' 4") 10/01/2020 10:00 PM MOLECULAR BIOLOGY DIRECTOR Body Mass Index 30.08 10/01/2020 10:00 PM MOLECULAR BIOLOGY DIRECTOR documented in this encounter Progress Notes Cristofer Baker MD - 10/02/2020 4:44 PM CST Internal Medicine Progress Note Date of Service: 10/02/2020 Chief Complaint: No acute events overnight, patient's mentation is improved. On lactulose and antibiotics. Had low-grade fever today. Review of System (ROS) General: (-) fever, (-) chills Skin: (-) rash HEENT: (-) headache, (-) change in hearing Neck: (-) pain Heme: (-) bleeding disorder Resp: (-) cough, (-) shortness of breath, (-) dyspnea on exertion Cardio: (-) chest pain, (-) palpitations GI: (-) abdominal pain, (-) nausea, (-) vomiting, (-) diarrhea : (-) dysuria, (-) hematuria Endo: (-) heat intolerance, (-) diabetes, (-) cold intolerance, (-) polyuria Neuro: (-) numbness, (-) tingling Back: (-) pain MS: (-) muscle pain Psych: (-) anxiety, (-) depression Vital Signs: Vitals: 10/02/20 0319 10/02/20 0716 10/02/20 1141 10/02/20 1551 BP: 115/59 118/64 105/55 127/73 BP Location: Left arm Left arm Left arm Patient Position: Supine Supine Supine Supine BP CUFF SIZE: Adult Large Adult Large Adult Large Adult Large Pulse: 109 126 109 108 Resp: Temp: 36.6 C (97.9 F) 36.2 C (97.2 F) 37.2 C (99 F) 37.9 C (100.2 F) TempSrc: Oral Oral Oral Oral SpO2: 95% 97% 95% 96% Weight: Height: Physical Exam: General: alert and oriented x 4 (person, place, date/time and situation); no apparent distress, welldeveloped, well nourished HEENT: normocephalic atraumatic, pupils equal, round, reactive to light , moist mucous membranes Neck: supple, no lymphadenopathy, no bruits, no JVD, full range of motion Lungs: clear to auscultation bilaterally Cardio: S1, S2 normal; no murmurs, rubs or gallops, regular rate and rhythm Abdomen: soft; non-tender; non-distended; normoactive bowel sounds, ascites present : not examined Rectal: not examined Extremities: no clubbing, cyanosis, bilateral pitting edema present in lower extremities nontender Skin: no rashes Neuro: no focal deficits, alert and oriented x 3 Lab Data/Imaging: Recent Results (from the past 24 hour(s)) Lactic Acid Whole Blood Collection Time: 10/01/20 5:37 PM Result Value Ref Range LACTIC ACID 2.01 mmol/L Phosphorus Serum Collection Time: 10/02/20 5:38 AM Result Value Ref Range PHOSPHORUS 3.0 2.5 - 5.0 mg/dL Magnesium Serum Collection Time: 10/02/20 5:38 AM Result Value Ref Range MAGNESIUM 1.5 (L) 1.7 - 2.4 mg/dL COMP. METABOLIC PANEL (34315) Collection Time: 10/02/20 5:38 AM Result Value Ref Range NA 139 135 - 145 mmol/L K 4.0 3.5 - 5.0 mmol/L CL 115 (H) 98 - 108 mmol/L CO2 TOTAL 22 (L) 23 - 31 mmol/L AGAP 2 2 - 16 BUN 19 7 - 23 mg/dL GLUCOSE 38 (LL) 70 - 110 mg/dL CREATININE 0.65 0.50 - 1.04 mg/dL TOTAL BILI 3.3 (H) 0.1 - 1.1 mg/dL CALCIUM 8.1 (L) 8.6 - 10.6 mg/dL T PROTEIN 4.7 (L) 6.3 - 8.2 g/dL ALBUMIN 1.8 (L) 3.5 - 5.0 g/dL ALK PHOS 72 34 - 122 U/L ALTv 60 (H) 5 - 35 U/L AST(SGOT) 145 (H) 13 - 40 U/L eGFR Calculation (Non-) 95.7 mL/min/1.73m2 eGFR Calculation () 116.0 mL/min/1.73m2 CBC WITH DIFF Collection Time: 10/02/20 5:58 AM Result Value Ref Range WBC 7.94 4.30 - 11.10 10*3/L RBC 3.47 (L) 3.93 - 5.25 10*6/L HGB 9.6 (L) 11.6 - 15.0 g/dL HCT 31.3 (L) 35.7 - 45.2 % MCV 90.2 80.6 - 95.5 fL MCH 27.7 25.9 - 32.8 pg MCHC 30.7 (L) 31.6 - 35.1 g/dL RDW-SD 59.5 (H) 39.0 - 49.9 fL RDW-CV 18.5 (H) 12.0 - 15.5 % PLT 79 (L) 166 - 358 10*3/L MPV 11.1 9.5 - 12.9 fL IPF % 3.1 1.3 - 7.7 % NRBC/100 WBC 0.0 0.0 - 10.0 /100 WBCs NRBC x10^3 <0.01 10*3/L GRAN MAT (NEUT) % 58.7 % IMM GRAN % 0.30 % LYMPH % 29.7 % MONO % 8.6 % EOS % 1.6 % BASO % 1.1 % GRAN MAT x10^3(ANC) 4.66 1.88 - 7.09 10*3/uL IMM GRAN x10^3 <0.03 0.00 - 0.06 10*3/uL LYMPH x10^3 2.36 1.32 - 3.29 10*3/uL MONO x10^3 0.68 0.33 - 0.92 10*3/uL EOS x10^3 0.13 0.03 - 0.39 10*3/uL BASO x10^3 0.09 (H) 0.01 - 0.07 10*3/uL ESTEFANIA CELLS 2+ (A) (none) ELLIPTO/OVAL 2+ (A) (none) SCHISTOCYTES 1+ (A) POCT GLUCOSE (AUTOMATED) Collection Time: 10/02/20 7:24 AM Result Value Ref Range POCT GLU 99 70 - 110 mg/dL POCT GLUCOSE (AUTOMATED) Collection Time: 10/02/20 12:06 PM Result Value Ref Range POCT GLU 192 (H) 70 - 110 mg/dL No final results containing an impression from the past 2 days were found. Assessment/Plan: 1. Hepatic encephalopathy - improvement with lactulose, mentation is improved. Continue with lactulose 3 times a day 2. Ascites - due to liver cirrhosis, we'll get ultrasound-guided paracentesis with fluid analysis completed 3. UTI - . Antibiotics with ceftriaxone and follow-up culture results 4. Liver cirrhosis - stable as of now not an acute decompensation 5. DVT prophylaxis - heparin 6. Full code 7. Disposition - inpatient care Cristofer Baker MD documented in this encounter H&P Notes Alvarez Farley MD - 10/01/2020 11:10 PM CST Medicine Red Team Intensive Care History and Physical Date of Service: 10/01/2020 23:11 CHIEF COMPLAINT: Hepatic encephalopathy Ascites Hyperammonemia Lactic acidosis Spontaneous bacterial peritonitis? Anemia of chronic disease Alcohol dependence disorder History of Present Illness Lorena Hansen is a 50 year old female With past medical history significant for alcohol dependence disorder, who was recently admitted to the hospital and left AGAINST MEDICAL ADVICE was seen in the ER with confusion, lactic acidosis, hyperammonemia. She was started on ceftriaxone in the ER and given a dose, also underwent assessment and evaluation for sepsis as a blood pressure was soft. Has significant lactic acidosis at 3.89 which is improved to 2.0 after crystalloid resuscitation. Has alcohol-related hyponatremia and thrombocytopenia. Patient has a smoking history. Half-pack per day for 40years quit now. Patient is awake but pleasantly confused, interactive, following it commands and moving all 4 extremities. She is being admitted to the medical floor for altered mental status, possiblespontaneous bacterial peritonitis, UTI for IV antibiotic therapy. Patient is full code. PAST MEDICAL HISTORY Past Medical History: Diagnosis Date Liver cirrhosis Alcoholic Multiple duodenal ulcers Multiple gastric ulcers Transfusion history PAST SURGICAL HISTORY Past Surgical History: Procedure Laterality Date CHOLECYSTECTOMY ESOPHAGOGASTRODUODENOSCOPY N/A 12/26/2017 Surgeon: Eliceo Clayton MD; Location: [facility] ([facility] OR Location ESOPHAGOGASTRODUODENOSCOPY N/A 02/06/2018 Surgeon: Fracisco Wilson MD; Location: [facility] ([facility] OR Location ESOPHAGOGASTRODUODENOSCOPY N/A 09/26/2018 Surgeon: Eliceo Clayton MD; Location: Endoscopy ([facility]) OR Location TUBAL LIGATION FAMILY HISTORY Family History Problem Relation Age of Onset Cancer Mother Cancer Maternal Grandmother SOCIAL HISTORY Social History Socioeconomic History Marital status: Single Spouse name: Not on file Number of children: Not on file Years of education: Not on file Highest education level: Not on file Occupational History Occupation: Unemployed Social Needs Financial resource strain: Patient refused Food insecurity Worry: Patient refused Inability: Patient refused Transportation needs Medical: Patient refused Non-medical: Patient refused Tobacco Use Smoking status: Former Smoker Smokeless tobacco: Never Used Tobacco comment: Pt is a poor historian and unable to recall Substance and Sexual Activity Alcohol use: Yes Comment: Former Drug use: No Sexual activity: Not on file Lifestyle Physical activity Days per week: Not on file Minutes per session: Not on file Stress: Not on file Relationships Social connections Talks on phone: Not on file Gets together: Not on file Attends buddhist service: Not on file Active member of [...] file Social History Narrative Not on file ALLERGIES Allergies Allergen Reactions Zofran [Ondansetron Hcl (Pf)] Hives REVIEW OF SYSTEMS (-)=Negative,(+)=Positive General: (-) fever, (-) chills, (-) weight loss, (-) weight gain, (-) fatigue, (-) malaise Skin: (-) rash, (-) lesion HEENT: (-) headache, (-) change in hearing, (-) change in vision, (-) nasal discharge, (-) sore throat Neck: (-) pain, (-) difficulty swallowing, (-) mass Heme: (-) bleeding disorder Resp: (-) cough, (-) shortness of breath, (-) dyspnea on exertion, (-) missing Cardio: (-) chest pain, (-) palpitations, (-) syncope GI: (-) abdominal pain, (-) nausea, (-) vomiting, (-) diarrhea, (-) constipation, (-) melena, (-) hematochezia : (-) dysuria, (-) hematuria, (-) increased frequency, (-) difficulty urinating, (-) difficulty initiating Endo: (-) heat intolerance, (-) diabetes, (-) cold intolerance, (-) polyuria, (- ) polydipsia, (-) renal insufficiency, (-) thyroid disease Neuro: (-) numbness, (-) tingling, (-) weakness Back: (-) pain, (-)spasms LAN: (-) muscle pain, (-) joint pain, (-) claudication Psych: (-) anxiety, (-) depression, (-) psychiatric disorder PHYSICAL EXAMINATION Vitals: 10/01/20 1835 10/01/20200410/01/20 2145 10/01/20 2200 BP: (!) 154/92 (!) 154/85 (!) 147/88 Pulse: 111 109 107 Resp: Temp: 37 C (98.6 F) TempSrc: Oral SpO2: 100% 98% 100% Weight: 175 lb 4.3 oz (79.5 kg) Height: 5' 4" (1.626 m) Constitutional: alert and oriented x 3 (place and situation); no apparent distress, well developed, well nourished, ill-appearing, intubated HEENT: pupils equal, round, reactive to light; extraocular movements intact; oropharynx clear; moistmucous membranes, normocephalic atraumatic, pupils equal, round, reactive to light , extraocular movements intact Neck: supple, no lymphadenopathy, no bruits, no JVD, lymphadenopathy Resp: clear to auscultation bilaterally Cardio: S1, S2 normal; no murmurs, rubs or gallops, regular rate and rhythm GI: soft; non-tender; non-distended; normoactive bowel sounds, soft, tender, distended, bowel sounds, guarding : not examined Rectal: not examined MSK: no clubbing, cyanosis, or edema Integ: no rashes Neuro: cranial nerves II through XII grossly intact; sensation grossly intact; muscle strength 5 outof 5 in all four extremities Current Facility-Administered Medications Medication Dose Route Frequency Last Rate Last Admin [START ON 10/02/2020] cefTRIAXone (ROCEPHIN) 1,000 mg in NaCl 0.9% (NS) 50 mL MINI-BAG 1,000 mgIV Piggyback Q24H ABX [START ON 10/02/2020] enoxaparin (LOVENOX) injection 40 mg 40 mg Subcutaneous DAILY [START ON 10/02/2020] furosemide (LASIX) injection 20 mg 20 mg IV Push DAILY lactulose (CEPHULAC) solution 15 mL 15 mL Oral BID Labs (pertinent only)/Imaging: WBC count is 9300 Hemoglobin 10.8 g/dL Hematocrit 35.8% Platelet count 82,000 Sodium 137 Potassium 4.0 Total bicarbonate 22 Creatinine 0.57 mg/dL LFTs abnormal with alkaline phosphatase 91 AST 65 and AST 140 UA shows hazy urine with proteinuria, ketonuria and elevated WBC at 11. Nitrites and leukocyte esterase are both negative. Lactic acid: 3.89 mmol/L Microbiology: None Assessment/Plan: Lorena Hansen is a 50 year old female admitted with Altered mental status, hyperammonemia, lactic acidosis secondary to pneumonia and spontaneous bacterial activity Patient is being admitted to the medical floor Vitals per protocol Neurochecks every 4 hours Started on Clear liquid diet as tolerated Advance to regular diet Patient had significant lactic acidosis at 3.89 Has improved after 2 L of normal saline crystalloid resuscitation Latest lactic acid is 2.0 patient has ascites and possible spontaneous bacterial peritonitis Will start on ceftriaxone 1 g IV daily That should take care of the UTI as well as as BP Follow urine culture Patient has alcohol dependence disorder Was started on thiamine, folic acid Started on banana bag 1 L As tobacco use disorder Patient has a smoked half pack per day for 40 years and continues to smoke Counseled on tobacco cessation follow CBC, CMP, ammonia level Thyroid diuresis at this time given significant lactic acidosis Does not appear to be septic process In my opinion the lactating as due to poor clearance of lactic acid in the liver Check ultrasound of the liver and gallbladder to assess the severity of siderosis Patient needs to quit drinking DVT prophylaxis: heparin Patient has positive UA. Blood cultures 2 is pending at this time. Dispo: Admit to IMU Prognosis: Fair Code Status: Full Code COMPLICATIONS/SECONDARY DIAGNOSIS Hepatic encephalopathy Siderosis ascites Hyperammonemia Lactic acidosis Spontaneous bacterial peritonitis? Anemia of chronic disease Alcohol dependence disorder Alvarez Farley MD [facility] 10/01/2020 10.30 PM documented in this encounter ED Notes Bhargavi Feng RN - 10/01/2020 2:50 PM CSTReport given to DAYNA White na Cristina Mckenzie RN - 10/01/2020 2:44 PM CSTPatient gave consent to share information with her significant other Arnulfo. Password: [email or web address]. Arnulfo updated on patient and his call back number provided. [phone] signed by Ana Cristina Mckenzie RN at 10/01/2020 2:45 PM CSTBhargavi Feng RN - 10/01/2020 2:30 PM CST50 year old female coming to the Er the AMS, last seen normal on Tuesday. Hx of elvated ammonia. BGL on scene 59 was given d10 then was 106. Patient has a strong odor, and was given 300 mg of ketamine due to combativeness, uben Boss MD - 10/01/2020 2:30 PM CST Addendum I personally examined and participated in decision-making for this patient with the resident, Dr Huang. Please see the resident note for further details. Confusion, agitation. No fall/injury. No neuro deficits. History of cirrhosis. Ketamine given by EMSprior to ED arrival Lab and imaging studies reviewed Recent Results (from the past 24 hour(s)) Complete Metabolic Panel Collection Time: 10/01/20 2:40 PM Result Value Ref Range NA 137 135 - 145 mmol/L K 4.0 3.5 - 5.0 mmol/L CL 107 98 - 108 mmol/L CO2 TOTAL 22 (L) 23 - 31 mmol/L AGAP 8 2 - 16 BUN 14 7 - 23 mg/dL GLUCOSE 90 70 - 110 mg/dL CREATININE 0.57 0.50 - 1.04 mg/dL TOTAL BILI 4.7 (H) 0.1 - 1.1 mg/dL CALCIUM 8.6 8.6 - 10.6 mg/dL T PROTEIN 5.8 (L) 6.3 - 8.2 g/dL ALBUMIN 2.4 (L) 3.5 - 5.0 g/dL ALK PHOS 91 34 - 122 U/L ALTv 65 (H) 5 - 35 U/L AST(SGOT) 145 (H) 13 - 40 U/L eGFR Calculation (Non-) 111.4 mL/min/1.73m2 eGFR Calculation () 135.0 mL/min/1.73m2 CBC with Differential Collection Time: 10/01/20 2:40 PM Result Value Ref Range WBC 9.32 4.30 - 11.10 10*3/L RBC 3.94 3.93 - 5.25 10*6/L HGB 10.8 (L) 11.6 - 15.0 g/dL HCT 35.8 35.7 - 45.2 % MCV 90.9 80.6 - 95.5 fL MCH 27.4 25.9 - 32.8 pg MCHC 30.2 (L) 31.6 - 35.1 g/dL RDW-SD 59.1 (H) 39.0 - 49.9 fL RDW-CV 17.9 (H) 12.0 - 15.5 % PLT 82 (L) 166 - 358 10*3/L MPV 11.8 9.5 - 12.9 fL IPF % 3.4 1.3 - 7.7 % NRBC/100 WBC 0.0 0.0 - 10.0 /100 WBCs NRBC x10^3 <0.01 10*3/L GRAN MAT (NEUT) % 73.5 % IMM GRAN % 0.60 % LYMPH % 18.8 % MONO % 5.9 % EOS % 0.6 % BASO % 0.6 % GRAN MAT x10^3(ANC) 6.84 1.88 - 7.09 10*3/uL IMM GRAN x10^3 0.06 0.00 - 0.06 10*3/uL LYMPH x10^3 1.75 1.32 - 3.29 10*3/uL MONO x10^3 0.55 0.33 - 0.92 10*3/uL EOS x10^3 0.06 0.03 - 0.39 10*3/uL BASO x10^3 0.06 0.01 - 0.07 10*3/uL Lipase, Serum Collection Time: 10/01/20 2:40 PM Result Value Ref Range LIPASE 217 0 - 220 U/L AMMONIA, PLASMA Collection Time: 10/01/20 2:40 PM Result Value Ref Range AMMONIA 85 (H) 9 - 33 umol/L Lactic Acid Whole Blood Collection Time: 10/01/20 2:40 PM Result Value Ref Range LACTIC ACID 3.89 mmol/L TROPONIN I Collection Time: 10/01/20 2:40 PM Result Value Ref Range TROPONIN I 0.012 <=0.034 ng/mL POCT GLUCOSE (AUTOMATED) Collection Time: 10/01/20 2:45 PM Result Value Ref Range POCT GLU 70 70 - 110 mg/dL PROTHROMBIN TIME / INR Collection Time: 10/01/20 2:50 PM Result Value Ref Range PROTIME PATIENT 17.0 (H) 12.0 - 14.7 Seconds INR 1.5 URINALYSIS Collection Time: 10/01/20 3:02 PM Result Value Ref Range APPEARANCE Hazy (A) Clear COLOR Yasmine (A) Yellow PH 5.0 4.8 - 8.0 SP GRAVITY 1.023 1.003 - 1.030 GLU U QUAL Normal Normal BLOOD 3+ (A) Negative KETONES 5 mg/dL (A) Negative PROTEIN 100 mg/dL (A) Negative UROBILIN 4.0 mg/dL (A) Normal BILIRUBIN Negative Negative NITRITE Negative Negative LEUK DIRK Negative Negative RBC/HPF 13 (H) 0 - 3 HPF WBC/HPF 11 (H) 0 - 5 HPF BACTERIA Few (A) Negative MUCOUS Slight (A) Negative LPF SQ EPITH 1 HPF HYAL CAST 4 (H) <=2 LPF TRANS EPI 1 <=1 HPF GRAN CASTS 3 (H) <=1 LPF COVID-19 (ID NOW RAPID TESTING) Collection Time: 10/01/20 3:16 PM Specimen: NASOPHARYNGEAL SWAB Result Value Ref Range SARS-CoV-2 Rapid ID NOW Not Detected Not Detected Lactic Acid Whole Blood Collection Time: 10/01/20 5:37 PM Result Value Ref Range LACTIC ACID 2.01 mmol/L Agitation markedly improved during ED observation. Findings discussed with patient. Patient is conversant. She expected to have elevated ammonia. Reports she is non-compliant with lactulose at home. Diagnosis 1. Hepatic encephalopathy Plan 1. Transferred to [facility]. No capacity at [facility]. Ruben Boss MD, [facility] Emergency Medicine CULAR BIOLOGY DIRECTOR documented in this encounter Miscellaneous Notes Care Plan - Tory Arreola RN - 10/03/2020 10:50 AM MOLECULAR BIOLOGY DIRECTOR Problem: Infection Risk Goal: Absence of infection Outcome: Adequate for discharge Problem: Falls, Risk of Goal: Absence of falls Outcome: Adequate for discharge Problem: Pain Goal: Control of pain at or below patient's documented comfort goal Outcome: Adequate for discharge Goal: Reduction in pain sensation Outcome: Adequate for discharge Problem: Activity Intolerance Goal: Improved activity tolerance Outcome: Adequate for discharge Problem: Cognitive-Perceptual Pattern - Impaired Goal: Cognitive status restored to baseline Outcome: Adequate for discharge Problem: Nutrition Deficit Goal: Adequate nutritional intake Outcome: Adequate for discharge Problem: Sleep Pattern Disturbance Goal: Able to sleep Outcome: Adequate for discharge Problem: Violence, Self/Other-Directed, Risk of Goal: Absence of violence Outcome: Adequate for discharge Problem: Discharge Planning Goal: Absence of venous thromboembolism Outcome: Adequate for discharge Goal: Adequate for discharge Outcome: Adequate for discharge Goal: Effective communication Outcome: Adequate for discharge ursing Note - Tory Arreola RN - 10/03/2020 10:19 AM CSTPatient called requesting form to sign to go AMA. Nurse asked orientation questions and patient answered all questions correctly. Nurse asked patient why she wanted to leave AMA and she just stated, "I'm leaving that why." Patient requested prescriptions and nurse informed patient prescriptions are not given if you leave AMA. The patient said "That's fine, I'll get them from [place]. My daughter is coming to get me she is 30 minutes away." Patient signed form. Charge notified. are Plan - Deborah Lindsay RN - 10/02/2020 10:07 PM MOLECULAR BIOLOGY DIRECTOR Problem: Infection Risk Goal: Absence of infection Outcome: Progressing as expected Problem: Falls, Risk of Goal: Absence of falls Outcome: Progressing as expected Problem: Pain Goal: Control of pain at or below patient's documented comfort goal Outcome: Progressing as expected Goal: Reduction in pain sensation Outcome: Progressing as expected Problem: Activity Intolerance Goal: Improved activity tolerance Outcome: Progressing as expected Problem: Cognitive-Perceptual Pattern - Impaired Goal: Cognitive status restored to baseline Outcome: Progressing as expected Problem: Nutrition Deficit Goal: Adequate nutritional intake Outcome: Progressing as expected Problem: Sleep Pattern Disturbance Goal: Able to sleep Outcome: Progressing as expected Problem: Violence, Self/Other-Directed, Risk of Goal: Absence of violence Outcome: Progressing as expected Problem: Discharge Planning Goal: Absence of venous thromboembolism Outcome: Progressing as expected Goal: Adequate for discharge Outcome: Progressing as expected Goal: Effective communication Outcome: Progressing as expected are Plan - Makenna Mercado RN - 10/02/2020 11:17 AM MOLECULAR BIOLOGY DIRECTOR Problem: Infection Risk Goal: Absence of infection Outcome: Progressing as expected Problem: Falls, Risk of Goal: Absence of falls Outcome: Progressing as expected Problem: Cognitive-Perceptual Pattern - Impaired Goal: Cognitive status restored to baseline Outcome: Progressing as expected Problem: Pain Goal: Reduction in pain sensation Outcome: Progressing as expected are Kody - Yessy Hare RN - 10/02/2020 12:57 AM MOLECULAR BIOLOGY DIRECTOR Problem: Infection Risk Goal: Absence of infection Outcome: Progressing as expected Problem: Falls, Risk of Goal: Absence of falls Outcome: Progressing as expected Problem: Pain Goal: Control of pain at or below patient's documented comfort goal Outcome: Progressing as expected Goal: Reduction in pain sensation Outcome: Progressing as expected Problem: Activity Intolerance Goal: Improved activity tolerance Outcome: Progressing as expected Problem: Cognitive-Perceptual Pattern - Impaired Goal: Cognitive status restored to baseline Outcome: Progressing as expected Problem: Nutrition Deficit Goal: Adequate nutritional intake Outcome: Progressing as expected Problem: Discharge Planning Goal: Absence of venous thromboembolism Outcome: Progressing as expected Goal: Adequate for discharge Outcome: Progressing as expected Goal: Effective communication Outcome: Progressing as expected D Nurse Note - Cindy Webb RN - 10/01/2020 8:20 PM CSTCity [facility] came for patient transport. Patient left ER vitally stable by EMS stretcher. No valuables left in ED. D Nurse Note - Ana Cristina Mckenzie RN - 10/01/2020 7:51 PM CSTCity ambulance called 15-20 minute ETA at this time. D Nurse Note - Cindy Webb RN - 10/01/2020 7:13 PM CSTReport given to DAYNA Bernal of [facility]. Cindy Webb RN D Nurse Note - Cindy Webb RN - 10/01/2020 7:01 PM CSTPatient's boyfriend Arnulfo Blanchard updated that patient's getting transferred to [facility]. D Nurse Note - Lily Talbot PCT - 10/01/2020 6:54 PM CSTCity [facility]ulance ETA 45 TO 50 MINUTES D Nurse Note - Cindy Webb RN - 10/01/2020 6:45 PM CSTTried to call for report but was put on hold for 15 minutes. D Nurse Note - Cindy Webb RN - 10/01/2020 6:34 PM CSTArnulfo Blanchard (patient's boyfriend) contact number [phone]. D Nurse Note - Cindy Webb RN - 10/01/2020 3:00 PM CSTReport received from DAYNA Burk. Cindy Webb RN documented in this encounter Plan of Treatment Name Type Priority Associated Diagnoses Date/Ti me BLOOD CULTURE SCREEN LAB STAT Altered mental statu s, 10/01/2020 2:50 PM MOLECULAR BIOLOGY DIRECTOR unspecified altered mental status type BLOOD CULTURE SCREEN LAB STAT Altered mental statu s, 10/01/2020 3:09 PM MOLECULAR BIOLOGY DIRECTOR unspecified altered mental status type Name Type Priority Associated Diagnoses Order S chedule OCCULT (GUAIAC) BLOOD LAB Routine ONCE f or 1 Occurrences starting 2019 until 0 IR PARACENTESIS IMAGING Routine Hepatic encephalopathy ON CE for 1 Occurrences starting 2019 until 0 Health Maintenance Due Date Last Done Comments [...] 12/30/19 18 documented as of this encounter Procedures Procedure Name Priority Date/Time Associated Diagnosis Comme nts PROTHROMBIN TIME / Routine 10/02/2020 5:37 Resul ts for INR PM MOLECULAR BIOLOGY DIRECTOR this procedure are in the results section. BASIC METABOLIC PANEL Routine 10/02/2020 5:37 Re sults for (NA, K, CL, CO2, PM MOLECULAR BIOLOGY DIRECTOR this proced ure GLUCOSE, BUN, are in the CREATININE, CA) results section. POCT GLUCOSE Routine 10/02/2020 12:06 Results for (AUTOMATED) PM MOLECULAR BIOLOGY DIRECTOR this procedure are in the results section. POCT GLUCOSE Routine 10/02/2020 7:24 Results for (AUTOMATED) AM MOLECULAR BIOLOGY DIRECTOR this procedure are in the results section. CBC WITH DIFF Routine 10/02/2020 5:58 Results fo r AM MOLECULAR BIOLOGY DIRECTOR this procedure are in the results section. COMP. METABOLIC PANEL Routine 10/02/2020 5:38 Re sults for ([id number]) AM MOLECULAR BIOLOGY DIRECTOR this procedure are in the results section. MAGNESIUM Routine 10/02/2020 5:38 Results for AM MOLECULAR BIOLOGY DIRECTOR this procedure are in the results section. PHOSPHORUS Routine 10/02/2020 5:38 Results for AM MOLECULAR BIOLOGY DIRECTOR this procedure are in the results section. LACTIC ACID WHOLE STAT 10/01/2020 5:37 Hepatic Result s for BLOOD PM MOLECULAR BIOLOGY DIRECTOR encephalopathy this procedur e are in the results section. LAB ONLY COVID Routine 10/01/2020 3:16 Altered mental Results for INTERPRETATION PM MOLECULAR BIOLOGY DIRECTOR status, unspecified this p rocedure altered mental status are in the type results section. COVID-19 (ID NOW STAT 10/01/2020 3:16 Altered mental Resul ts for RAPID TESTING) PM MOLECULAR BIOLOGY DIRECTOR status, unspecified this p rocedure altered mental status are in the type results section. BLOOD CULTURE SCREEN STAT 10/01/2020 3:09 Altered mental PM MOLECULAR BIOLOGY DIRECTOR status, unspecified altered mental status type HB ECG ROUTINE & STAT 10/01/2020 3:08 Altered mental RHYTHM STRIP PM MOLECULAR BIOLOGY DIRECTOR status, unspecified altered mental status type URINALYSIS STAT 10/01/2020 3:02 Altered mental Results f or PM MOLECULAR BIOLOGY DIRECTOR status, unspecified this pro cedure altered mental status are in the type results section. PROTHROMBIN TIME / STAT 10/01/2020 2:50 Altered mental Res ults for INR PM MOLECULAR BIOLOGY DIRECTOR status, unspecified this pro cedure altered mental status are in the type results section. BLOOD CULTURE SCREEN STAT 10/01/2020 2:50 Altered mental PM MOLECULAR BIOLOGY DIRECTOR status, unspecified altered mental status type POCT GLUCOSE Routine 10/01/2020 2:45 Results for (AUTOMATED) PM MOLECULAR BIOLOGY DIRECTOR this procedure are in the results section. LACTIC ACID WHOLE STAT 10/01/2020 2:40 Altered mental Resu lts for BLOOD PM MOLECULAR BIOLOGY DIRECTOR status, unspecified this pro cedure altered mental status are in the type results section. CBC WITH DIFF STAT 10/01/2020 2:40 Altered mental Results for PM MOLECULAR BIOLOGY DIRECTOR status, unspecified this pro cedure altered mental status are in the type results section. COMP. METABOLIC PANEL STAT 10/01/2020 2:40 Altered mental Results for ([id number]) PM MOLECULAR BIOLOGY DIRECTOR status, unspecified this pro cedure altered mental status are in the type results section. TROPONIN I STAT Add-On 10/01/2020 2:40 Altered mental Results f or PM MOLECULAR BIOLOGY DIRECTOR status, unspecified this pro cedure altered mental status are in the type results section. AMMONIA, PLASMA STAT 10/01/2020 2:40 Altered mental Result s for PM MOLECULAR BIOLOGY DIRECTOR status, unspecified this pro cedure altered mental status are in the type results section. LIPASE STAT 10/01/2020 2:40 Altered mental Results f or PM MOLECULAR BIOLOGY DIRECTOR status, unspecified this pro cedure altered mental status are in the type results section. documented in this encounter Results PROTHROMBIN TIME / INR (10/02/2020 5:37 PM MOLECULAR BIOLOGY DIRECTOR) PROTIME PATIENT 18.0 (H) 10.1 - 12.6 [facility] Seconds [facility] INR 1.5Comment: Normal [facility] INR <1.1; Warfarin [facility] Therapeutic range [facility] 2.0 to 3.0 or 2.5 to 3.5, depending upon the indications. Specimen Blood - ARM, LEFT Performing Organization Address City/State/Zipcode Phone Number [facility] CLIA: [id number] [place] [address] [facility] [address] BASIC METABOLIC PANEL (NA, K, CL, CO2, GLUCOSE, BUN, CREATININE, CA) (10/02/2020 5:37 PM MOLECULAR BIOLOGY DIRECTOR) Pathologist Sig nature NA 136 135 - 145 [facility] mmol/L [facility] K 3.4 (L) 3.5 - 5.0 [facility] mmol/L [facility] CL 109 (H) 98 - 108 mmol/L [facility] CO2 TOTAL 22 (L) 23 - 31 mmol/L [facility] AGAP 5 2 - 16 [facility] BUN 19 7 - 23 mg/dL [facility] GLUCOSE 116 (H) 70 - 110 mg/dL [facility] CREATININE 0.75 0.50 - 1.04 [facility] mg/dL [facility] CALCIUM 7.9 (L) 8.6 - 10.6 [facility] mg/dL [facility] eGFR Calculation 81.1 mL/min/1.73m2 [facility] (Non- [facility]) [place] eGFR Calculation 98.4 mL/min/1.73m2 [facility] () [facility] Specimen Blood - ARM, LEFT Narrative Performed At Association of Glomerular Filtration Rate [facility] (GFR) and Staging of Kidney Disease* [place] + + --+ + | GFR (mL/min/1.73 [...] abnormalities in imaging tests). Performing Organization Address City/[facility]/Zipcode Phone Number [facility] CLIA: [id number] [place] [address] [facility] [address] POCT GLUCOSE (AUTOMATED) (10/02/2020 12:06 PM MOLECULAR BIOLOGY DIRECTOR) [facility] POCT GLU 192 (H) 70 - 110 mg/dL [facility] Specimen Blood Performing Organization Address [facility] Phone Number [facility] CLIA: [id number] [place] [address] POCT GLUCOSE (AUTOMATED) (10/02/2020 7:24 AM MOLECULAR BIOLOGY DIRECTOR) Pathologist Sig nature POCT GLU 99 70 - 110 mg/dL [facility] Specimen Blood Performing Organization Address City/State/Zipcode Phone Number [facility] CLIA: [id number] [place] [address] CBC WITH DIFF (10/02/2020 5:58 AM MOLECULAR BIOLOGY DIRECTOR) WBC 7.94 4.30 - 11.10 [facility] 10*3/L [facility] RBC 3.47 (L) 3.93 - 5.25 [facility] 10*6/L [facility] HGB 9.6 (L) 11.6 - 15.0 [facility] g/dL [facility] HCT 31.3 (L) 35.7 - 45.2 [facility] % [facility] MCV 90.2 80.6 - 95.5 [facility] fL [facility] MCH 27.7 25.9 - 32.8 [facility] pg [facility] MCHC 30.7 (L) 31.6 - 35.1 [facility] g/dL [facility] RDW-SD 59.5 (H) 39.0 - 49.9 [facility] fL [facility] RDW-CV 18.5 (H) 12.0 - 15.5 [facility] % [facility] PLT 79 (L) 166 - 358 [facility] 10*3/L [facility] MPV 11.1 9.5 - 12.9 [facility] fL [facility] IPF % 3.1Comment: 1.3 - 7.7 % [facility] Platelet count [facility] measured by [facility] fluorescence method. NRBC/100 WBC 0.0 0.0 - 10.0 [facility] /100 WBCs [facility] NRBC x10^3 <0.01 10*3/L [facility] GRAN MAT (NEUT) % 58.7 % [facility] IMM GRAN % 0.30 % [facility] LYMPH % 29.7 % [facility] MONO % 8.6 % [facility] EOS % 1.6 % [facility] BASO % 1.1 % [facility] GRAN MAT x10^3(ANC) 4.66 1.88 - 7.09 [facility] 10*3/uL [facility] IMM GRAN x10^3 <0.03 0.00 - 0.06 [facility] 10*3/uL [facility] LYMPH x10^3 2.36 1.32 - 3.29 [facility] 10*3/uL [facility] MONO x10^3 0.68 0.33 - 0.92 [facility] 10*3/uL [facility] EOS x10^3 0.13 0.03 - 0.39 [facility] 10*3/uL [facility] BASO x10^3 0.09 (H) 0.01 - 0.07 [facility] 10*3/uL [facility] ESTEFANIA CELLS 2+ (A) (none) [facility] ELLIPTO/OVAL 2+ (A) (none) [facility] SCHISTOCYTES 1+ (A) [facility] Specimen Blood - ARM, LEFT Performing Organization Address City/State/Zipcode Phone Number [facility] CLIA: [id number] [place] [address] [facility] [address] COMP. METABOLIC PANEL ([id number]) (10/02/2020 5:38 AM MOLECULAR BIOLOGY DIRECTOR) [facility] nature NA 139 135 - 145 [facility] mmol/L [facility] K 4.0 3.5 - 5.0 [facility] mmol/L [facility] CL 115 (H) 98 - 108 mmol/L [facility] CO2 TOTAL 22 (L) 23 - 31 mmol/L [facility] AGAP 2 2 - 16 [facility] BUN 19 7 - 23 mg/dL [facility] GLUCOSE 38 (LL) 70 - 110 mg/dL [facility] CREATININE 0.65 0.50 - 1.04 [facility] mg/dL [facility] TOTAL BILI 3.3 (H) 0.1 - 1.1 mg/dL [facility] CALCIUM 8.1 (L) 8.6 - 10.6 [facility] mg/dL [facility] T PROTEIN 4.7 (L) 6.3 - 8.2 g/dL [facility] ALBUMIN 1.8 (L) 3.5 - 5.0 g/dL [facility] ALK PHOS 72 34 - 122 U/L [facility] ALTv 60 (H) 5 - 35 U/L [facility] AST(SGOT) 145 (H) 13 - 40 U/L [facility] eGFR Calculation 95.7 mL/min/1.73m2 [facility] (Non- [facility]) [place] eGFR Calculation 116.0 mL/min/1.73m2 [facility] () [facility] Specimen Blood - ARM, RIGHT Narrative Performed At Association of Glomerular Filtration Rate [facility] (GFR) and Staging of Kidney Disease* [facility] + + --+ + | GFR (mL/min/1.73 [...] tests). Performing Organization Address City/State/Zipcode Phone Number [facility] CLIA: [id number] [place] [address] [facility] [address] Phosphorus Serum (10/02/2020 5:38 AM MOLECULAR BIOLOGY DIRECTOR) [facility] PHOSPHORUS 3.0 2.5 - 5.0 mg/dL [facility] Specimen Blood - ARM, RIGHT Performing Organization Address [facility] Phone Number [facility] CLIA: [id number] [place] [address] [facility] [address] Magnesium Serum (10/02/2020 5:38 AM MOLECULAR BIOLOGY DIRECTOR) Pathologist Sig nature MAGNESIUM 1.5 (L) 1.7 - 2.4 mg/dL [facility] Specimen Blood - ARM, RIGHT Performing Organization Address City/[facility]/Zipcode Phone Number [facility] CLIA: [id number] [place] [address] [facility] [address] Lactic Acid Whole Blood (10/01/2020 5:37 PM MOLECULAR BIOLOGY DIRECTOR) Pathologist Sig nature LACTIC ACID 2.01 mmol/L [facility] Specimen Blood - VENOUS Performing Organization Address [facility] Phone Number [facility] CLIA: [id number] [place] [address] [address] LAB ONLY COVID INTERPRETATION (10/01/2020 3:16 PM MOLECULAR BIOLOGY DIRECTOR) COVID DMT Interpretation/Recommendations: [facility] Interpretation SERVICES Molecular NAAT Tests for Active Infection with the LÓPEZ S-CoV-2 Virus: This patient has tested nega tive on two occasions for the SARS-CoV-2 virus that causes COVID-19 illness. This most likely indicates that the patient does not have an active infection with the SARS-CoV-2 virus, especially if these tests coincide with the patient's current presentation. However, infection is not completely ruled out as the false negative rate for molecular NAAT testing using a nasophary ngeal sample can be up to 30 %, mostly dependent on the timing of sample collection in relation to illness onset and any deficiencies in sampling techniques. If the patient continues to have persistent o r worsening symptoms concern ing for COVID-19 illness, a repeat NAAT test (PCR, Rapid ID Now, etc.) should be performed, at which time the SARS-CoV-2 virus - if present - may have reached a detectable vi ral load (usually peaking by the end of [...] These interpretation comment s are based upon all COVID-19 testing the patient has had at [facility], including molecular NAAT testing (more commonly known as PCR testing and Rapid ID Now testing) and antibody testing. It does not take i nto account any testing that a patient has had outside of the [facility] medical record. COVID Results SARS-CoV-2 Rapid ID NOW (no units) [facility] Date Value SERVICES 10/01/2020 Not Detected 09/22/2020 Not Detected Specimen Swab - NASOPHARYNGEAL SWAB Performing Organization Address City/State/Zipcode Phone Number [facility] SERVICES CLIA: [id number] [place] [address] [place] [address] COVID-19 (ID NOW RAPID TESTING) (10/01/2020 3:16 PM MOLECULAR BIOLOGY DIRECTOR) SARS-CoV-2 Rapid ID Not Detected Not Detected [facility] Specimen Swab - NASOPHARYNGEAL SWAB Narrative Performed At ID NOW COVID-19 Assay is an isothermal nucleic [facility] acid amplification test intended for the qualitative detection of nucleic acid from SARS-CoV-2 viral RNA in nasopharyngeal (CATEGORY MANAGER) specimens. It is used under Emergency Use [...] testing if clinically indicated. Performing Organization Address [facility] Cent[facility]oid Phone Number [facility] CLIA: [id number] [place] [address] URINALYSIS (10/01/2020 3:02 PM MOLECULAR BIOLOGY DIRECTOR) Pathologist Sig nature APPEARANCE Hazy (A) Clear [facility] COLOR Yasmine (A) Yellow [facility] PH 5.0 4.8 - 8.0 [facility] SP GRAVITY 1.023 1.003 - 1.030 [facility] GLU U QUAL Normal Normal [facility] BLOOD 3+ (A) Negative [facility] KETONES 5 mg/dL (A) Negative [facility] PROTEIN 100 mg/dL (A) Negative [facility] UROBILIN 4.0 mg/dL (A) Normal [facility] BILIRUBIN Negative Negative [facility] NITRITE Negative Negative [facility] LEUK DIRK Negative Negative [facility] RBC/HPF 13 (H) 0 - 3 HPF [facility] WBC/HPF 11 (H) 0 - 5 HPF [facility] BACTERIA Few (A) Negative [facility] MUCOUS Slight (A) Negative LPF [facility] SQ EPITH 1 HPF [facility] HYAL CAST 4 (H) <=2 LPF [facility] TRANS EPI 1 <=1 HPF [facility] GRAN CASTS 3 (H) <=1 LPF [facility] Specimen Urine - URINE, CLEAN CATCH Performing Organization Address City/[facility]/Zipcode Phone Number [facility] CLIA: [id number] [place] [address] PROTHROMBIN TIME / INR (10/01/2020 2:50 PM MOLECULAR BIOLOGY DIRECTOR) PROTIME PATIENT 17.0 (H) 12.0 - 14.7 [facility] LABORATORY INR 1.5Comment: Normal [facility] INR <1.1; Warfarin [facility] Therapeutic range LABORATORY 2.0 to 3.0 or 2.5 to 3.5, depending upon the indications. Specimen Blood - VENOUS Performing Organization Address [facility] Phone Number [facility] CLIA: [id number] [place] [address] POCT GLUCOSE (AUTOMATED) (10/01/2020 2:45 PM MOLECULAR BIOLOGY DIRECTOR) Pathologist [facility] POCT GLU 70 70 - 110 mg/dL [facility] Specimen Blood Performing Organization Address [facility] Phone Number [facility] CLIA: [id number] [place] [address] LABORATORY [address] TROPONIN I (10/01/2020 2:40 PM MOLECULAR BIOLOGY DIRECTOR) [facility] TROPONIN I 0.012 <=0.034 ng/mL [facility] Specimen Blood - VENOUS Narrative Performed At Equal or Less than 0.034 ng/ml---Normal [facility] Note: Cardiac troponin begins to [...] patient's use of biotin. Performing Organization Address [facility] Phone Number [facility] CLIA: [id number] [place] [address] LABORATORY [address] Lactic Acid Whole Blood (10/01/2020 2:40 PM MOLECULAR BIOLOGY DIRECTOR) Pathologist [facility] nature LACTIC ACID 3.89 mmol/L [facility] Specimen Blood - VENOUS Performing Organization Address [facility] Phone Number [facility] CLIA: [id number] [place] [address] AMMONIA, PLASMA (10/01/2020 2:40 PM MOLECULAR BIOLOGY DIRECTOR) Pathologist Sig nature AMMONIA 85 (H) 9 - 33 umol/L [facility] Specimen Blood - VENOUS Performing Organization Address City/[facility] Phone Number [facility] CLIA: [id number] [place] [address] LABORATORY [address] Lipase, Serum (10/01/2020 2:40 PM MOLECULAR BIOLOGY DIRECTOR) Pathologist Sig nature LIPASE 217 0 - 220 U/L [facility] Specimen Blood - VENOUS Performing Organization Address [facility] Phone Number [facility] CLIA: [id number] [place] [address] LABORATORY [address] CBC with Differential (10/01/2020 2:40 PM MOLECULAR BIOLOGY DIRECTOR) WBC 9.32 4.30 - 11.10 [facility] 10*3/L [facility]ORY RBC 3.94 3.93 - 5.25 [facility] 10*6/L [facility]ORY HGB 10.8 (L) 11.6 - 15.0 [facility] g/dL [facility] HCT 35.8 35.7 - 45.2 % [facility] LABORATORY MCV 90.9 80.6 - 95.5 [facility] LABORATORY MCH 27.4 25.9 - 32.8 [facility] LABORATORY MCHC 30.2 (L) 31.6 - 35.1 [facility] g/dL [facility] RDW-SD 59.1 (H) 39.0 - 49.9 [facility] LABORATORY RDW-CV 17.9 (H) 12.0 - 15.5 % [facility] LABORATORY PLT 82 (L) 166 - 358 [facility] 10*3/L [facility] LABORATORY MPV 11.8 9.5 - 12.9 [facility] LABORATORY IPF % 3.4Comment: Platelet 1.3 - 7.7 % [facility] count measured by HOSPITAL fluorescence method. LABORATORY NRBC/100 WBC 0.0 0.0 - 10.0 [facility] /100 WBCs HOSPITAL LABORATORY NRBC x10^3 <0.01 10*3/L [facility] LABORATORY GRAN MAT (NEUT) % 73.5 % [facility] LABORATORY IMM GRAN % 0.60 % [facility]OR[facility]ORY LYMPH % 18.8 % [facility] MONO % 5.9 % [facility] LABORATORY EOS % 0.6 % [facility] LABORATORY BASO % 0.6 % [facility] LABORATORY GRAN MAT 6.84 1.88 - 7.09 [facility] x10^3(ANC) 10*3/uL HOSPITAL LABORATORY IMM GRAN x10^3 0.06 0.00 - 0.06 [facility] 10*3/uL [facility]OS[facility] LYMPH x10^3 1.75 1.32 - 3.29 [facility] 10*3/uL [facility] MONO x10^3 0.55 0.33 - 0.92 [facility] 10*3/uL [facility] EOS x10^3 0.06 0.03 - 0.39 [facility] 10*3/uL [facility] BASO x10^3 0.06 0.01 - 0.07 [facility] 10*3/uL [facility] Specimen Blood - VENOUS Performing Organization Address City/State/Zipcode Phone Number [facility] CLIA: [id number] [place] [address] Complete Metabolic Panel (10/01/2020 2:40 PM MOLECULAR BIOLOGY DIRECTOR) Pathologist Sig nature NA 137 135 - 145 [facility] mmol/L [facility] LABORATORY K 4.0 3.5 - 5.0 [facility] mmol/L [facility] LABORATORY CL 107 98 - 108 mmol/L [facility] LABORATORY CO2 TOTAL 22 (L) 23 - 31 mmol/L [facility] LABORATORY AGAP 8 2 - 16 [facility] LABORATORY BUN 14 7 - 23 mg/dL [facility] LABORATORY GLUCOSE 90 70 - 110 mg/dL [facility] LABORATORY CREATININE 0.57 0.50 - 1.04 [facility] mg/dL [facility] LABORATORY TOTAL BILI 4.7 (H) 0.1 - 1.1 mg/dL [facility] LABORATORY CALCIUM 8.6 8.6 - 10.6 [facility] mg/dL [facility] LABORATORY T PROTEIN 5.8 (L) 6.3 - 8.2 g/dL [facility] LABORATORY ALBUMIN 2.4 (L) 3.5 - 5.0 g/dL [facility] ALK PHOS 91 34 - 122 U/L [facility] ALTv 65 (H) 5 - 35 U/L [facility] AST(SGOT) 145 (H) 13 - 40 U/L [facility] eGFR Calculation 111.4 mL/min/1.73m2 [facility] ([facility] LABORATORY [place]i) eGFR Calculation 135.0 mL/min/1.73m2 [facility] () [facility] LABORATORY Specimen Blood - VENOUS Narrative [...] tests). Performing Organization Address City/State/Zipcode Phone Number [facility] CLIA: [id number] [place] [address] documented in this encounter Visit Diagnoses Diagnosis Altered mental status, unspecified alter ed mental status type - Primary Hepatic encephalopathy Decompensated hepatic cirrhosis documented in this encounter Administered Medications Medication Order MAR Action Action Date Dose Rate Site cefTRIAXone (ROCEPHIN) 1,000 mg Given 10/02/2020 3:21 PM MOLECULAR BIOLOGY DIRECTOR 1, 000 mg in NaCl 0.9% (NS) 50 mL MINI-BAG 1,000 mg, IV Piggyback, Q24H ABX, First dose on Loly 10/02/20 at 1500, Until Discontinued, 50 mL, Reason for Anti-Infective: Empiric Therapy for Suspected Infection, Empiric Therapy Site: Abdominal, Duration of therapy: 7 days enoxaparin (LOVENOX) injection 40 mg Given 10/02/2020 8:56 AM MOLECULAR BIOLOGY DIRECTOR 40 mg Abdo men-SC 40 mg, Subcutaneous, DAILY, First dose on Tue10/02/20 at 0900, Until Discontinued, Routine furosemide (LASIX) injection 20 mg Given 10/03/2020 8:00 AM MOLECULAR BIOLOGY DIRECTOR 20 mg 20 mg, IV Push, DAILY, First dose on Loly 10/02/20 at 0900, Until Discontinued, Routine Given 10/02/2020 8:56 AM MOLECULAR BIOLOGY DIRECTOR 20 mg lactulose (CEPHULAC) solution 15 mL Given 10/03/2020 8:00 AM MOLECULAR BIOLOGY DIRECTOR 15 mL 15 mL, Oral, TID, First dose (after last modification) on Tue10/02/20 at 1745, Until Discontinued, Routine Given 10/02/2020 5:51 PM MOLECULAR BIOLOGY DIRECTOR 15 mL Medication Order MAR Action Action Date Dose Rate Site cefTRIAXone (ROCEPHIN) 1,000 mg Given 10/01/2020 3:22 PM MOLECULAR BIOLOGY DIRECTOR 1, 000 mg in NaCl 0.9% (NS) 50 mL MINI-BAG 1,000 mg, IV Piggyback, ONCE, 1 dose, Tue10/01/20 at 1600, 50 mL, Reason for Anti-Infective: Empiric Therapy for Suspected Infection, Empiric Therapy Site: Blood, Duration of therapy: 72 hours dextrose 50 % in water (D50W) injection 50 mL Given 10/02/2020 6:56 AM MOLECULAR BIOLOGY DIRECTOR 50 mL 50 mL, Slow IV Push, ONCE, 1 dose, Loly 10/02/20 at 0645, Routine lactulose (CEPHULAC) solution 15 mL Given 10/02/2020 8:56 AM MOLECULAR BIOLOGY DIRECTOR 15 mL 15 mL, Oral, BID, First dose on Tue10/01/20 at 2315, Until Discontinued, Routine lactulose (CEPHULAC) solution 30 mL Given 10/01/2020 5:38 PM MOLECULAR BIOLOGY DIRECTOR 30 mL 30 mL, Oral, ONCE, 1 dose, Tue10/01/20 at 1830, NADINE magnesium sulfate in water 2 gram/50 mL (4 %) New Bag 11:55 AM MOLECULAR BIOLOGY DIRECTOR 2 g infusion 2 g 2 g, IV Piggyback, ONCE, 1 dose, Loly 10/02/20 at 1230, Routine NaCl 0.9% (NS) bolus infusion New Bag 10/01/2020 3:19 PM MOLECULAR BIOLOGY DIRECTOR 1,000 mL 999 mL/hr 1,000 mL at 999 mL/hr, 1,000 mL, IV Infusion, ONCE, 1 dose, 10/01/20 at 1515, NADINE NaCl 0.9% (NS) bolus infusion New Bag 10/01/2020 5:29 PM MOLECULAR BIOLOGY DIRECTOR 1,000 mL 999 mL/hr 1,000 mL at 999 mL/hr, 1,000 mL, IV Infusion, ONCE, 1 dose, 10/01/20 at 1730, NADINE documented in this encounter Additional Health Concerns Infection Onset Date Last Indicated Resolved Time COVID-19 Rule Out 10/01/2020 10/01/2020 10/01/2020 3: 50 PM MOLECULAR BIOLOGY DIRECTOR documented as of this encounter
[2020-10-22 01:28] LABS: Absolute Lymphocytes (CBC) 1.4 K/uL (0.7-4.9); Basophils % 0.7 % (0-1.3); Hematocrit 29.8 % (36.0-45.0); Lymphocytes % 28.7 % (15.3-44.8); MPV 9.7 fL (7.6-11.3)
[2020-10-22 01:29] LABS: Protime INR 1.34
[2020-10-22] MEDS ORDERED: PROMETHAZINE INJ 25 MG/ML AMP ONE (02:12)
[2020-10-22 02:16] LABS: Albumin 1.5 g/dL (3.4-5.0); Bilirubin Direct 1.5 mg/dL (0-0.2); Protein, Total 4.9 g/dL (6.4-8.2)
[2020-10-22 02:17] LABS: Potassium 2.9 mmol/L (3.5-5.1)
[2020-10-22 02:45] LABS: Blood Morphology Comment NOTED (NOT SEEN); Platelet Estimate DECR; White Blood Cell Scan OK (OK)
[2020-10-22 02:46] LABS: Polychromasia 2+
[2020-10-22] MEDS ORDERED: PANTOPRAZOLE 40 MG INJ ONE ×2 (02:47→02:57)
[2020-10-22] MEDS ORDERED: NA CHLORIDE 0.9% 250 ML ONE ×2 (03:02→03:52)
--- NOTE | 2020-10-22 03:19 | ER ---
Nurse's Notes [facility] Name: Lorena Hansen Age: 50 yrs Sex: Female : 1970 Arrival Date: 10/21/2020 Time: 23:48 Bed 7 Private MD: Diagnosis: Anasarca;Ascites;Melena Presentation: 10/22 00:05 Chief complaint: Patient states: I have this little polyps in my stomach, and hx of sg having liver problems. Well tonight I am having nausea, black tarry stools, as well as leg swelling in both of my legs. Coronavirus screen: nausea, Client presents with at least one sign or symptom that may indicate coronavirus-19. Provider contacted for isolation considerations. Ebola Screen: Patient negative for fever greater than or equal to 101.5 degrees Fahrenheit, and additional compatible Ebola Virus Disease symptoms Patient denies exposure to infectious person. Patient denies travel to an Ebola-affected area in the 21 days before illness onset. No symptoms or risks identified at this time. Initial Sepsis Screen: Does the patient meet any 2 criteria? HR > 90 bpm. Does the patient have a suspected source of infection? No. Patient's initial sepsis screen is negative. Risk Assessment: Do you want to hurt yourself or someone else? Patient reports no desire to harm self or others. Onset of symptoms was October 22, 2020. Transition of care: patient was not received from another setting of care. 00:05 Acuity: SUDHA 3 sg 00:05 Method Of Arrival: Ambulatory sg 07:13 Acuity: SUDHA 2 ph Triage Assessment: 00:11 GI: Reports bloating. rv Historical: - Allergies: 00:08 Zofran; sg - PMHx: 00:08 Cirrhosis; COLON CA; sg - Immunization history:: Adult Immunizations up to date. - Social history:: Smoking status: Patient denies any tobacco usage or history of. - Family history:: not pertinent. - Hospitalizations: : No recent hospitalization is reported. Screenin:11 Abuse screen: Denies threats or abuse. Denies injuries from another. Nutritional rv screening: No deficits noted. Tuberculosis screening: No symptoms or risk factors identified. Fall Risk None identified. Assessment: 00:09 General: Appears uncomfortable, Behavior is calm, cooperative. Pain: Denies pain. rv Neuro: Level of Consciousness is awake, alert, obeys commands, Oriented to person, place, time, situation. Cardiovascular: Patient's skin is warm and dry. Respiratory: Airway is patent Respiratory effort is even, unlabored. 00:10 GI: Abdomen is round distended, noted to have ascites. Musculoskeletal: Swelling rv present in abdomen, right leg and left leg. 01:00 Reassessment: Patient and/or family updated on plan of care and expected duration. Pain ea level reassessed. Pt resting with eyes closed, respirations even and unlabored, chest expansions even and symmetrical. No obvious s/s of pain or discomfort noted at this time. 02:00 Reassessment: Patient and/or family updated on plan of care and expected duration. Pain ea level reassessed. Pt resting with eyes closed, respirations even and unlabored, chest expansions even and symmetrical. No obvious s/s of pain or discomfort noted at this time. 03:00 Reassessment: Patient and/or family updated on plan of care and expected duration. Pain ea level reassessed. Pt resting with eyes closed, respirations even and unlabored, chest expansions even and symmetrical. No obvious s/s of pain or discomfort noted at this time. 04:00 Reassessment: Patient and/or family updated on plan of care and expected duration. Pain ea level reassessed. Pt resting with eyes closed, respirations even and unlabored, chest expansions even and symmetrical. No obvious s/s of pain or discomfort noted at this time. 05:00 Reassessment: Patient and/or family updated on plan of care and expected duration. Pain ea level reassessed. Pt resting with eyes closed, respirations even and unlabored, chest expansions even and symmetrical. No obvious s/s of pain or discomfort noted at this time. 07:00 Reassessment: Patient and/or family updated on plan of care and expected duration. Pain tw2 level reassessed. pt ambulating to restroom at this time, upon return to exam room states "dont put all that back on me, i want to sleep". 09:00 Reassessment: Patient appears in no apparent distress at this time. Patient and/or tw2 family updated on plan of care and expected duration. Pain level reassessed. pt states "can i have something to eat", pt educated as to her condition and need to remain NPO at this time. pt agreeable and ambulates to the restroom. 11:00 Reassessment: Patient appears in no apparent distress at this time. Patient and/or tw2 family updated on plan of care and expected duration. Pain level reassessed. pt sleeping at this time. 12:17 Reassessment: Patient appears in no apparent distress at this time. Patient and/or tw2 family updated on plan of care and expected duration. Pain level reassessed. Vital Signs: 00:08 BP 172 / 102; Pulse 102; Resp 23; Pulse Ox 99% on R/A; Weight 77.11 kg; Height 5 ft. 4 rv in. (162.56 cm); 01:53 BP 143 / 98; Pulse 101; Resp 18; Pulse Ox 99% on R/A; rv 01:53 Temp 98.2; ea 02:00 BP 129 / 72; Pulse 94; Resp 18; Pulse Ox 98% ; ea 03:00 BP 121 / 73; Pulse 100; Resp 19; Pulse Ox 98% ; ea 04:00 BP 126 / 79; Pulse 108; Resp 19; Pulse Ox 98% on R/A; ea 05:46 BP 109 / 88; Pulse 100; Resp 18; Pulse Ox 98% on R/A; ea 12:03 BP 124 / 84; Pulse 102; Resp 18; Pulse Ox 95% on R/A; tw2 00:08 Body Mass Index 29.18 (77.11 kg, 162.56 cm) rv ED Course: 10/21 23:48 Patient arrived in ED. cf2 23:53 Meng Petit RN is Primary Nurse. rv 23:54 Geraldo Yates MD is Attending Physician. rn 10/22 00:05 Arm band placed on. sg 00:08 Triage completed. sg 00:11 Patient has correct armband on for positive identification. Placed in gown. Bed in low rv position. Call light in reach. carbide operator on. Pulse ox on. NIBP on. 00:21 Missed attempt(s): 22 gauge in right antecubital area. Bleeding controlled, band aid ea applied, catheter tip intact. 00:50 XRAY Chest (1 view) In Process Unspecified. EDMS 01:10 Initial lab(s) drawn, by me, sent to lab. Inserted saline lock: 18 gauge in right rv forearm, using aseptic technique. Blood collected. 02:17 Notified ED physician of a critical lab result(s). k 2.7. sg 02:34 Initiated transfer at [facility] with Danielle Singh. Stated she would check for beds tt3 and call back. 02:34 No provider procedures requiring assistance completed. Patient transferred, IV remains ea in place. 03:00 [facility] transfer center called back and Dr. Yates took the call. tt3 05:13 Followed up with [facility] and spoke with Jagruti. Stated that there were still no beds tt3 available and that we could try again around 0800. 08:35 Attending Physician role handed off by Geraldo Yates MD kdr 08:35 Shahbaz Sotelo MD is Attending Physician. kdr 08:45 re [facility]. bd 08:58 COVID swab sent to lab. em1 11:04 pt accepted in [facility] ER by dr casillas, admit approval given bd by Bianca Perez.. 11:45 [facility] tw2 Administered Medications: 02:03 Drug: Phenergan 12.5 mg Route: IVP; Site: right forearm; rv 03:00 Follow up: Response: No adverse reaction ea 03:01 Drug: ProTONIX 8 mg/hr Route: IV; Rate: 25 ml/hr; Site: right hand; rv 05:45 Follow up: Response: No adverse reaction; IV Status: Infusion continued upon transfer ea 12:19 Follow up: IV Status: Infusion continued upon transfer tw2 03:02 Drug: ProTONIX 40 mg Route: IVP; Site: right hand; rv 03:30 Follow up: Response: No adverse reaction ea 03:28 Drug: Lasix 60 mg Route: IVP; Site: right hand; ea 04:00 Follow up: Response: No adverse reaction ea 03:51 Drug: Octreotide Infusion (50 mcg/hr) - (Octreotide 500 mcg, NS 0.9% 500 ml) Route: IV; sg Rate: 50 ml/hr; Site: right hand; 05:45 Follow up: Response: No adverse reaction; IV Status: Infusion continued upon transfer ea 12:19 Follow up: IV Status: Infusion continued upon transfer tw2 04:08 Drug: Octreotide 50 mcg Route: IV; Rate: calculated rate; Site: right hand; rv 05:45 Follow up: Response: No adverse reaction; IV Status: Completed infusion ea Point of Care Testing: Guaiac: 02:38 Stool Guaiac: Positive; Stool Hemoccult Control: Pass; rn 02:38 Dark black stool obtained rn Outcome: 02:34 Instructed on the need for transfer, Demonstrated understanding of instructions. ea 03:18 ER care complete, transfer ordered by . rn 12:16 Transferred by ground EMS to [facility]. tw2 12:16 Condition: stable 12:19 Patient left the ED. tw2 Signatures: Dispatcher [employer] EDMS Radha Abarca Steven, RN DAYNA sg Shahbaz Sotelo MD MD kdr Nieto, Roman, MD MD rn Martinez, Eric em1 Sheron Mello RN DAYNA Zain, DAYNA Garcia RN tw2 Alciia Stevenson RN DAYNA ea Meng Petit RN DAYNA rv Dimas Valentino cf2 Antonio Parker tt3 Corrections: (The following items were deleted from the chart) 00:11 00:09 Respiratory: Airway is patent Respiratory effort is even, unlabored, rv rv 00:21 00:21 Missed attempt(s): 22 gauge in right antecubital area. ea ea
--- NOTE | 2020-10-22 03:19 | EDPHYS ---
Physician Documentation [facility] Name: Lorena Hansen Age: 50 yrs Sex: Female : 1970 Arrival Date: 10/21/2020 Time: 23:48 Bed 7 Private MD: ED Physician Shahbaz Sotelo HPI: 10/22 00:15 This 50 yrs old Female presents to ER via Ambulatory with complaints of rn swelling, sob, black stool. 00:15 Reports "swelling all over", worse over last 2 days, has never had paracentesis rn performed, reports acid reflux lately so took half a bottle of pepto bismol. Today noticed dark stool this AM after taking her lactulose. Reports here more for the swelling and sob when laying flat. Reports abdomen is larger than usual. Abdomen does not hurt. NO vomiting. . Onset: The symptoms/episode began/occurred 2 day(s) ago. Severity of symptoms: At their worst the symptoms were moderate in the emergency department the symptoms are unchanged. The patient has not experienced similar symptoms in the past. The patient has not recently seen a physician. Historical: - Allergies: 00:08 Zofran; sg - PMHx: 00:08 Cirrhosis; COLON CA; sg - Immunization history:: Adult Immunizations up to date. - Social history:: Smoking status: Patient denies any tobacco usage or history of. - Family history:: not pertinent. - Hospitalizations: : No recent hospitalization is reported. ROS: 00:15 Constitutional: Negative for fever, chills, and weight loss, Eyes: Negative for injury, rn pain, redness, and discharge, Cardiovascular: Negative for chest pain, palpitations Respiratory: Negative for cough, wheezing, and pleuritic chest pain, Abdomen/GI: + abd distension and swelling, negative for hemoptysis MS/Extremity: Negative for injury and deformity, Skin: Negative for injury Neuro: Negative for headache, numbness, tingling, and seizure. Exam: 00:15 Constitutional: This is a well developed, well nourished patient who is awake, alert, rn and in no acute distress. Ambulatory to room without assistance. Head/Face: Normocephalic, atraumatic. ENT: MMM Cardiovascular: Tachycardic, regular Respiratory: + mild tachypnea, improves when sitting upright Abdomen/GI: distened abdomen with fluid wave, no rebound or peritoneal signs. Skin: Warm, dry MS/ Extremity: Pulses equal, no cyanosis. 3+ pitting edema bilateral lower ext. Neuro: Awake and alert, GCS 15, oriented to person, place, time, and situation. Cranial nerves II-XII grossly intact. Motor strength 5/5 in all extremities. Sensory grossly intact. Cerebellar exam normal. Normal gait. Vital Signs: 00:08 BP 172 / 102; Pulse 102; Resp 23; Pulse Ox 99% on R/A; Weight 77.11 kg; Height 5 ft. 4 rv in. (162.56 cm); 01:53 BP 143 / 98; Pulse 101; Resp 18; Pulse Ox 99% on R/A; rv 01:53 Temp 98.2; ea 02:00 BP 129 / 72; Pulse 94; Resp 18; Pulse Ox 98% ; ea 03:00 BP 121 / 73; Pulse 100; Resp 19; Pulse Ox 98% ; ea 04:00 BP 126 / 79; Pulse 108; Resp 19; Pulse Ox 98% on R/A; ea 05:46 BP 109 / 88; Pulse 100; Resp 18; Pulse Ox 98% on R/A; ea 12:03 BP 124 / 84; Pulse 102; Resp 18; Pulse Ox 95% on R/A; tw2 00:08 Body Mass Index 29.18 (77.11 kg, 162.56 cm) rv MDM: 10/21 23:54 Patient medically screened. rn 10/22 03:00 ED course: [facility]2 [facility]. rn 03:11 ED course: All hospitals we have contacted are at capacity and decline transfer. We rn have tried [facility] and [facility], [facility], [facility], [facility] system, [facility] system. Will continue to look for locations to transfer to. . 03:21 ED course: Contacting [facility] to help facilitate transfer. . rn 10:52 Data reviewed: vital signs, nurses notes, lab test result(s), radiologic studies. kdr Counseling: I had a detailed discussion with the patient and/or guardian regarding: the historical points, exam findings, and any diagnostic results supporting the discharge/admit diagnosis, lab results, radiology results, the need to transfer to another facility. 10/22 00:05 Order name: Basic Metabolic Panel; Complete Time: 02:27 rn 10/22 00:05 Order name: CBC with Diff; Complete Time: 02:46 rn 10/22 00:05 Order name: Hepatic Function; Complete Time: 02:27 rn 10/22 00:05 Order name: Lipase; Complete Time: 02:27 rn 10/22 00:05 Order name: PT-INR; Complete Time: 01:55 rn 10/22 00:05 Order name: Ptt, Activated; Complete Time: 01:55 rn 10/22 00:05 Order name: XRAY Chest (1 view); Complete Time: 08:36 rn 10/22 00:05 Order name: BNP; Complete Time: 02:27 rn 10/22 01:46 Order name: CBC Smear Scan; Complete Time: 02:46 EDMS 10/22 08:43 Order name: CBC with Diff; Complete Time: 10:22 kdr 10/22 09:42 Order name: SARS-COV-2 RT PCR; Complete Time: 10:22 EDMS 10/22 00:05 Order name: IV Saline Lock; Complete Time: 00:19 rn 10/22 00:05 Order name: Labs collected and sent; Complete Time: 00:19 rn 10/22 00:05 Order name: EKG; Complete Time: 00:06 rn 10/22 00:05 Order name: EKG - Nurse/Tech; Complete Time: 00:19 rn Administered Medications: 02:03 Drug: Phenergan 12.5 mg Route: IVP; Site: right forearm; rv 03:00 Follow up: Response: No adverse reaction ea 03:01 Drug: ProTONIX 8 mg/hr Route: IV; Rate: 25 ml/hr; Site: right hand; rv 05:45 Follow up: Response: No adverse reaction; IV Status: Infusion continued upon transfer ea 12:19 Follow up: IV Status: Infusion continued upon transfer tw2 03:02 Drug: ProTONIX 40 mg Route: IVP; Site: right hand; rv 03:30 Follow up: Response: No adverse reaction ea 03:28 Drug: Lasix 60 mg Route: IVP; Site: right hand; ea 04:00 Follow up: Response: No adverse reaction ea 03:51 Drug: Octreotide Infusion (50 mcg/hr) - (Octreotide 500 mcg, NS 0.9% 500 ml) Route: IV; sg Rate: 50 ml/hr; Site: right hand; 05:45 Follow up: Response: No adverse reaction; IV Status: Infusion continued upon transfer ea 12:19 Follow up: IV Status: Infusion continued upon transfer tw2 04:08 Drug: Octreotide 50 mcg Route: IV; Rate: calculated rate; Site: right hand; rv 05:45 Follow up: Response: No adverse reaction; IV Status: Completed infusion ea Point of Care Testing: Guaiac: 02:38 Stool Guaiac: Positive; Stool Hemoccult Control: Pass; rn 02:38 Dark black stool obtained rn Disposition: 10/22/20 03:18 Transfer ordered to [facility]. Diagnosis are Anasarca, Ascites, Melena. - Reason for transfer: Higher level of care. - Accepting physician is Dr. Briones. - Condition is Stable. - Problem is new. - Symptoms are unchanged. Signatures: Dispatcher [employer] EDMS Ari Browning RN RN sg Shahbaz Sotelo MD MD kdr Geraldo Yates MD MD rn Wise, Tara, RN RN tw2 Alicia Stevenson RN RN ea Meng Petit RN RN rv Corrections: (The following items were deleted from the chart) 08:59 02:49 CORONAVIRUS+MR.LAB.BRZ ordered. [facility] 10:52 03:18 10/22/2020 03:18 Transfer ordered to Other Acute Care Facility. Diagnosis is kdr Anasarca; Ascites; Melena. Reason for transfer: Higher level of care. Accepting physician is . Condition is Stable. Problem is new. Symptoms are unchanged. rn 12:19 10:52 10/22/2020 03:18 Transfer ordered to [facility]. tw2 Diagnosis is Anasarca; Ascites; Melena. Reason for transfer: Higher level of care. Accepting physician is Dr. Briones. Condition is Stable. Problem is new. Symptoms are unchanged. kdr
[2020-10-22] MEDS ORDERED: FUROSEMIDE 100 MG/10 ML VIAL IV ONE (03:39)
[2020-10-22] MEDS ORDERED: OCTREOTIDE ACETATE 100 MCG/ML ONE (03:51)
[2020-10-22] MEDS ORDERED: OCTREOTIDE ACETATE 500 MCG/ML ONE (04:15)
--- NOTE | 2020-10-22 06:32 | EKG ---
Test Date: 2020-10-22 Test Time: 00:15:51 Fur Buyer: GEORGE MEASUREMENT RESULTS: Intervals: Rate: 95 FL: 118 QRSD: 76 QT: 394 QTc: 495 [place]: P: 78 FL: 118 QRS: 63 T: 84 INTERPRETIVE STATEMENTS: Normal sinus rhythm Prolonged QT Abnormal ECG Compared to ECG 06/23/2020 08:03:20 Prolonged QT interval now present Electronically Signed On 10-22-20 06:31:43 SUSTAINABLE LANDSCAPE ARCHITECT by Josué Park
--- NOTE | 2020-10-22 08:07 | RAD REPORT ---
EXAM DESCRIPTION: RAD - Chest Single View - 10/22/2020 12:50 am CLINICAL HISTORY: DYSPNEA COMPARISON: Portable June 2020 TECHNIQUE: AP portable chest image was obtained 10/22/2020 12:50 am . FINDINGS: Lung volumes are low compared to the prior study. Ill-defined right base opacification is present partially obscuring the right hemidiaphragm. This could be minimal infiltrate or low lung vol ume atelectasis. No left lung field acute finding suspected. No failure or volume overload. Heart and vasculature are normal. No measurable pleural effusion and no pneumothorax. No acute bony abnormality seen. No acute aortic findings suspected. IMPRESSION: Shallow inspiration chest film showing atelectasis and/ or minimal infiltrate right lung base.
[2020-10-22 09:18] LABS: Absolute Lymphocytes (CBC) 1.8 K/uL (0.7-4.9); Basophils % 1.3 % (0-1.3); MPV 10.2 fL (7.6-11.3); RBC Red Blood Cell Count 3.53 M/uL (3.86-4.86)
[2020-10-22] MEDS ORDERED: PANTOPRAZOLE INJ 80 MG in NA CHLORIDE 0.9% 250 ML IV SCH (11:00)
[2020-10-22] MEDS ORDERED: OCTREOTIDE 500 MCG in NA CHLORIDE 0.9% 500 ML IV SCH (11:00)
== END 2020-10-22 12:19 | disposition short-term general hospital (02) ==
LOC: ER 23:41
DX: R18.8 Other ascites (principal); K92.1 Melena; Z20.822 Contact with and (suspected) exposure to COVID-19; K74.60 Unspecified cirrhosis of liver; Z85.038 Personal history of other malignant neoplasm of large intestine; Z88.8 Allergy status to other drugs, medicaments and biological substances
CPT/HCPCS: 36415; 71045; 80048; 80076; 83690; 83880; 85025; 85610; 85730; 93005; 99285; C9113; J2354; J2550; J7040; J7050; U0003

== ENCOUNTER 2020-11-01 19:59 | Inpatient (IN) | payer SELFPAY ==
--- OUTSIDE RECORDS SUMMARY | 2020-11-01 20:03 | XMS REPORT | Clinical Summary ---
:1970 Author Organization [facility] Address [address] [place] [address] Care Team Providers Name Role Phone Unavailable Primary Care Provider Unavailable Allergies Active Allergy Reactions Severity Noted Date Comments Ondansetron Hcl (Pf) Rash Low 10/22/2020 Medications Medication Sig Dispensed Refills Start Date End Date Status furosemide (LASIX) Take 1 100 tablet 0 10/24/2020 Active 40 MG tablet tablet (40 1 mg total) by mouth 2 (two) times daily for 7 days, THEN 1 tablet (40 mg total) daily for 90 days. lactulose Take 30 mLs 8100 mL 3 10/24/2020 Active (CHRONULAC) 10 (20 g 2 gram/15 mL (15 mL) total) by solution mouth 3 (three) times daily. rifAXIMin 550 mg Take 1 90 tablet 3 10/24/2020 Ac tive TabIndications: tablet (550 hepatic mg total) encephalopathy by mouth 2 (two) times daily. pantoprazole Take 1 60 tablet 0 10/24/2020 Active (PROTONIX) 40 MG tablet (40 1 tablet mg total) by mouth 2 (two) times daily for 30 days. potassium chloride Take 1 90 tablet 3 10/24/2020 Active SA (K-DUR,KLOR-CON) tablet (20 2 20 MEQ tablet mEq total) by mouth daily. spironolactone Take 1 90 tablet 3 10/25/2020 Acti ve (ALDACTONE) 100 MG tablet (100 2 tablet mg total) by mouth daily. lactulose Take 20 g 0 Discontinu ed (CHRONULAC) 10 by mouth 3 1 (Reo rder) gram/15 mL (15 mL) (three) solution times daily. rifAXIMin 550 mg Take 550 mg 0 D iscontinued Tab by mouth 2 1 (Reorder) (two) times daily. furosemide (LASIX) Take 40 mg 0 Discontinued 40 MG tablet by mouth 1 (Reorde r) daily. 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 (HCC) MD Oneil Hager Omar, MD 10/22/2020 Orders Only Internal Medicine Milagro Briones MD 10/22/2020 Telephone Gastroenterology Ruth Toney MD after 11/01/2019 Social History Tobacco Use Types Packs/Day Years Used Date Current Some Day Smoker Smokeless Tobacco: Never Used Alcohol Use Drinks/Week oz/Week Comments Not Currently Sex Assigned at Date Recorded Not on file Last Filed Vital Signs Vital Sign Reading Time Taken Comments Blood Pressure 128/77 10/24/2020 12:45 PM [employer] Pulse 95 10/24/2020 12:45 PM [employer] Temperature 36.8 C (98.2 F) 10/24/2020 12:45 PM [employer] Respiratory Rate 16 10/24/2020 12:45 PM [employer] CALEND[employer] HELPER Oxygen Saturation 99% 10/24/2020 12:45 PM [employer] CALENDER HELPER Inhaled Oxygen Concentration - - Weight 88.1 kg (194 lb 5 oz) 10/22/2020 6:07 PM [employer] CAL[employer] HEL[employer] Height 162.6 cm (5' 4") 10/22/2020 6:07 PM [employer] CAL[employer] Body Mass Index 33.35 10/22/2020 6:07 PM [employer] CAL[employer]ER HELPER Plan of Treatment Health Maintenance Due Date Last Done Comments BREAST CANCER SCREENING 1970 COLON CANCER SCREENING COLONOSCOPY 1970 PNEUMOCOCCAL VACCINE 0-64 YRS (1 of 1 - PPSV23) 1974 CERVICAL CANCER SCREENING PAP ONLY (Age 21-65) 1989 LIPID PANEL 2013 INFLUENZA VACCINE (#1) 2020 DEPRESSION SCREENING (12+) 10/17/2020 Procedures Procedure Name Priority Date/Time Associated Diagnosis Comme nts US ABDOMEN LIMITED Routine 10/24/2020 2:23 Resul ts for this PM [employer] procedure are i n the results section. CBC W/PLT COUNT & Routine 10/24/2020 2:19 Result s for this AUTO DIFFERENTIAL AM [employer] procedure are in the results section. PROTHROMBIN TIME/INR Routine 10/24/2020 2:19 Res ults for this AM [employer] procedure are i n the results section. CBC W/PLT COUNT & Routine 10/24/2020 2:19 Result s for this AUTO DIFFERENTIAL AM [employer]PER procedure are in the results section. COMPREHENSIVE Routine 10/24/2020 2:19 Results fo r this METABOLIC PANEL AM [employer] procedure ar e in the results section. REPORT OF PROCEDURE - 10/23/2020 1:12 ENDOSCOPY URL PM [employer] CALEND[employer] HELPER UPPER ENDOSCOPY 10/23/2020 9:39 Gastrointestinal AM [employer] hemorrhage, unspecified gastrointestinal hemorrhage type COMPREHENSIVE Routine 10/23/2020 5:15 Results fo r this METABOLIC PANEL AM [employer] procedure ar e in the results section. MAGNESIUM Routine 10/23/2020 5:15 Results for this AM [employer]ER [employer]PER procedure are i n the results section. CBC W/PLT COUNT & Routine 10/23/2020 5:14 Result s for this AUTO DIFFERENTIAL AM [employer] HEL[employer] procedure are in the results section. MITOCHONDRIAL AB Routine 10/23/2020 5:14 Results for this TITER AM [employer] HELPER procedure are i n the results section. MITOCHONDRIAL AB Routine 10/23/2020 5:14 Results for this SCREEN AM [employer] procedure are i n the results section. HEPATITIS A ANTIBODY, Routine 10/23/2020 5:14 Re sults for this IGG AM [employer] HELPER procedure are i n the results section. HEPATITIS B CORE Routine 10/23/2020 5:14 Results for this ANTIBODY, TOTAL AM [employer]ER HEL[employer] procedure ar e in the results section. HC LAB FLUORESC AB Routine 10/23/2020 5:14 SCRN EA AB AM [employer]PER ANTI-NUCLEAR ANTIBODY Routine 10/23/2020 5:14 Re sults for this (LUCAS) AM [employer]ER HELPER procedure are i n the results section. ACTIN (SMOOTH MUSCLE) Routine 10/23/2020 5:14 Re sults for this ANTIBODY, IGG AM [employer] procedure are in the results section. RETICULOCYTE COUNT Routine 10/23/2020 5:14 Resul ts for this AM [employer] procedure are i n the results section. FOLATE, SERUM Routine 10/23/2020 5:14 Results fo r this AM [employer] procedure are i n the results section. VITAMIN B12 Routine 10/23/2020 5:14 Results for this AM [employer] procedure are i n the results section. IRON, TIBC, % SAT. Routine 10/23/2020 5:14 Resul ts for this (WITHOUT FERRITIN) AM [employer] procedure are in the results section. FERRITIN Routine 10/23/2020 5:14 Results for this AM [employer] procedure are i n the results section. CERULOPLASMIN Routine 10/23/2020 5:14 Results fo r this AM [employer] procedure are i n the results section. ALPHA FETOPROTEIN Routine 10/23/2020 5:14 Result s for this (AFP), TUMOR MARKER AM [employer]ER HELPER procedur e are in the results section. [id number]\\, Routine 10/23/2020 5:14 Re sults for this SERUM AM [employer] procedure are i n the results section. HEPATITIS PANEL, Routine 10/23/2020 5:14 Results for this ACUTE AM [employer] procedure are i n the results section. HEPATITIS C GENOTYPE Routine 10/23/2020 5:14 Res ults for this AM [employer] procedure are i n the results section. HEPATITIS C PCR, Routine 10/23/2020 5:14 Results for this QUANTITATIVE AM [employer] HELPER procedure are i n the results section. PROTHROMBIN TIME/INR Routine 10/23/2020 5:14 Res ults for this AM [employer] procedure are i n the results section. CBC W/PLT COUNT & Routine 10/23/2020 5:14 Result s for this AUTO DIFFERENTIAL AM [employer] procedure are in the results section. HEMOGLOBIN AND Routine 10/23/2020 5:14 Results f or this HEMATOCRIT AM [employer] procedure are i n the results section. US ABDOMINAL WITH NADINE 10/22/2020 9:15 Result s for this DOPPLER PM [employer] procedure are i n the results section. URINALYSIS W/ REFLEX Routine 10/22/2020 5:23 Res ults for this URINE CULTURE PM [employer] procedure are in the results section. SARS-COV2/RT-PCR STAT 10/22/2020 3:22 Results for this ([facility] & REF LABS) PM [employer] procedure are in the results section. BLOOD CULTURE Routine 10/22/2020 3:07 Results fo r this PM [employer] procedure are i n the results section. CBC W/PLT COUNT & STAT 10/22/2020 2:07 Result s for this AUTO DIFFERENTIAL PM [employer] procedure are in the results section. TROPONIN I STAT 10/22/2020 2:07 Results for this PM [employer] procedure are i n the results section. HEPATIC FUNCTION STAT 10/22/2020 2:07 Results for this PANEL PM [employer] procedure are i n the results section. BASIC METABOLIC PANEL STAT 10/22/2020 2:07 Re sults for this (7) PM [employer] procedure are i n the results section. CBC W/PLT COUNT & STAT 10/22/2020 2:07 Result s for this AUTO DIFFERENTIAL PM [employer] procedure are in the results section. ECG 12-LEAD Routine 10/22/2020 2:01 Results for this PM [employer] procedure are i n the results section. ECG 12-LEAD Routine 10/22/2020 2:01 PM [employer] HELPER Procedure Note - Interface, External Ris In - 10/23/2020 12:17 PM [employer] HELPER Ventricular Rate 83 BPM Atrial Rate 83 BPM P-R Interval 110 ms QRS Duration 76 ms Q-T Interval 432 ms QTC Calculation(Bazett) 507 ms P [place] 61 degrees R [place] 28 degrees T [place] 34 degrees Sinus rhythm with short [place] Low voltage QRS Cannot rule out Anterior inf arct , age undetermined Prolonged QT Abnormal ECG No previous ECGs available XR CHEST 1 VIEW STAT 10/22/2020 1:46 PM RUBBER CALENDER HELPER R esults for this PORTABLE/BEDSIDE procedure a re in the results section . after 11/01/2019 Results US abdomen limited (10/24/2020 2:23 PM RUBBER CALENDER HELPER) Specimen Narrative Performed At FINAL REPORT [place] Limited abdominal ultrasound CLINICAL HISTORY: Ascites FINDINGS: A limited abdominal ultrasou nd was performed and only a trace amount of fluid was seen. Therefor e a paracentesis was not performed. Signed: Alex Gonzalez MD Report Verified Date/Time: 10/24/2020 17:32:34 Reading Location: [facility] B1 P006J Ultrasoun d Reading Room Procedure Note Interface, External Ris In - 10/24/2020 5:34 PM [employer] CALENDER HELPER FINAL REPORT Limited abdominal ultrasound CLINICAL HISTORY: Ascites FINDINGS: A limited abdominal ultrasoun d was performed and only a trace amount of fluid was seen. Therefor e a paracentesis was not performed. Signed: Alex Gonzalez MD Report Verified Date/Time: 10/24/2020 1 7:32:34 Reading Location: [facility] P006J Ultrasoun d Reading Room Performing Organization Address City/State/Zipcode Phone Number GE RIS CBC with platelet count + automated diff (10/24/2020 2:19 AM RUBBER CALENDER HELPER)Only the most recent of3 resultswithin the time period is included. Pathologist Sig nature WBC 5.3 3.5 - 10.5 [facility] K/L [facility] RBC 3.40 (L) 3.93 - 5.22 [facility] M/L [facility] Hemoglobin 9.6 (L) 11.2 - 15.7 [facility] GM/DL [facility] Hematocrit 31.7 (L) 34.1 - 44.9 % [facility] MCV 93.2 79.4 - 94.[address] [facility] MCH 28.2 25.6 - 32.[address] [facility] MCHC 30.3 (L) 32.2 - 35.5 [facility] GM/DL [facility] RDW 18.6 (H) 11.7 - 14.4 % [facility] Platelets 62 (L) 150 - 450 K/CU [facility] MPV 13.0 (H) 9.4 - 12.[address] [facility] nRBC 0 0 - 0 /[address] [facility] % Neutros 52 % [facility] % Lymphs 34 % [facility] % Monos 10 % [facility] % Eos 3 % [facility] % Baso 1 % [facility] # Neutros 2.73 1.56 - 6.13 [facility] # Lymphs 1.81 1.18 - 3.74 [facility] # Monos 0.54 (H) 0.24 - 0.36 [facility] # Eos 0.14 0.04 - 0.36 [facility] # Baso 0.05 0.01 - 0.08 [facility] Immature 0 0 - 1 % [facility] Specimen Blood Performing Organization Address City/[facility]/Zipcode Phone Number [address] [address] CENTER Prothrombin time/INR (10/24/2020 2:19 AM RUBBER CALENDER HELPER)Only the most recent of2 results within the time period is included. Pathologist Sig nature Protime 19.8 (H) 11.9 - 14.[address] [facility] INR 1.75 <=5.90 [facility] Specimen Blood Narrative Performed At Effective 03/14/2019: PT Reference Range [facility] Change New: 11.9-14.2 Previous: 11.7-14.7 RECOMMENDED COUMADIN/WARFARIN INR THERAPY RANGES STANDARD DOSE: 2.0-3.0 Includes: PROPHYLAXIS for venous thrombosis, systemic embolization; TREATMENT for venous thrombosis and/or pulmonary embolus. HIGH RISK: Target INR is 2.5-3.5 for patients wiht mechanical heart valves. Performing Organization Address City/[facility]/Zipcode Phone Number [facility] [address] [place] [address] [place] Comprehensive metabolic panel (10/24/2020 2:19 AM RUBBER CALENDER HELPER)Only the most recent of2 resultswithin the time period is included. Protein, Total 4.7 (L) 6.0 - 8.3 [facility] gm/dL [facility] Albumin 1.7 (L) 3.5 - 5.0 [facility] g/dL [facility] Alkaline 114 40 - 150 U/L [facility] Phosphatase [facility] Total Bilirubin 3.0 (H) 0.2 - 1.2 [facility] mg/dL [facility] Sodium 139 136 - 145 [facility] meq/L [facility] Potassium 3.2 (L) 3.5 - 5.1 [facility] meq/L [facility] Chloride 106 98 - 107 [facility] meq/L [facility] CO2 27 22 - 29 meq/L [facility] BUN 12 7 - 21 mg/dL [facility] Creatinine 0.78 0.57 - 1.25 [facility] mg/dL [facility] Glucose 127 (H) 70 - 105 [facility] mg/dL [facility] Calcium 7.0 (L) 8.4 - 10.2 [facility] mg/dL [facility] AST 114 (H) 5 - 34 U/L [facility] ALT 58 (H) 6 - 55 U/L [facility] EGFR 78Comment: mL/min/1.73 [facility] ESTIMATED GFR IS sq [facility] NOT ACCURATE MEDICAL CENTER CREATININE CLEARANCE IN PREDICTING GLOMERULAR FILTRATION RATE. ESTIMATED GFR IS NOT APPLICABLE FOR DIALYSIS PATIENTS. Specimen Blood Narrative Performed At [employer] [facility] ID - PIAYA L [facility] Specimen slightly icteric Performing Organization Address City/State/Zipcode Phone Number [address] [address] CENTER REPORT OF PROCEDURE - ENDOSCOPY URL (10/23/2020 1:12 PM RUBBER CALENDER HELPER) Narrative Performed At This result has an attachment that is no t available. Magnesium (10/23/2020 5:15 AM RUBBER CALENDER HELPER) Pathologist Sig nature Magnesium 1.8 1.6 - 2.6 mg/dL [facility] Specimen Blood Narrative Performed At [employer] ID - [place] [facility] Performing Organization Address City/[facility]/Zipcode Phone Number [facility] [address] [place] [address] CENTER Mitochondrial Ab Titer (10/23/2020 5:14 AM RUBBER CALENDER HELPER) Mitochondrial Ab TNP <1:20 [facility] Titer Comment: INCORPORATED Test Not Performed. Screening test Negative or Not Det ected. Titer not performed. Specimen Blood Narrative Performed At Performing Lab [facility] [address] [place] [address] Wilder Ochoa MD, PhD, BEATRICE Performing Organization Address [facility] Phone Number [facility] [place] [address] INCORPORATED [address] [facility] [facility] [place] Mitochondrial Ab Screen (10/23/2020 5:14 AM RUBBER CALENDER HELPER) Anti-Mitochond NEGATIVE NEGATIVE [facility] Abs Comment: INCORPORATED This test was developed and its analytical performance characteristics have been determined by [employer] [facility]. It has not been cleared or approved by FDA. This assay has been validated pursuant to the CLIA regulations and is used for clini vasile purposes. Specimen Blood Narrative Performed At Performing Lab [facility] [address] [place] [address] Wilder Ochoa MD, PhD, BEATRICE Performing Organization Address [facility] Centercode Phone [place] [address] INCORPORATED [address] [facility] [place] Hepatitis A antibody, IgG (10/23/2020 5:14 AM RUBBER CALENDER HELPER) Pathologist Sig nature Hep A IgG Reactive (A) Nonreactive [facility] Specimen Blood Narrative Performed At [employer] ID - [place] [facility] Performing Organization Address [facility]/Zipcode Phone Number [facility] [address] [place] [address] CENTER Anti-Mitochondrial Ab, reflex to titer (10/23/2020 5:14 AM RUBBER CALENDER HELPER) Pathologist Sig nature Scan Result [facility] D Specimen Blood Narrative Performed At This result has an attachment that is no t available. Performing Organization Address City/[facility]/Zipcode Phone Number [facility] [place] [address] INCORPORATED [address] [facility] Iron, TIBC, % sat. (without ferritin) (10/23/2020 5:14 AM RUBBER CALENDER HELPER) Pathologist Sig nature Iron 129.0 40.0 - 160.0 [facility] ug/dL [facility] TIBC 178 (L) 250 - 450 ug/dL [facility] Iron % Saturation 72 (H) 20 - 55 % [facility] Specimen Blood Narrative Performed At [employer] ID - [place] [facility] Performing Organization Address [facility] Centercode Phone Number [address] [address] CENTER Actin (Smooth Muscle) Antibody, IgG (10/23/2020 5:14 AM RUBBER CALENDER HELPER) Anti-Smooth 23 (H) See Note: U [facility] Muscle Ab Comment: INCORPORATED Reference Range: <20 NEGATIVE > OR = 20 POSITIVE Antibodies recognizing actin are the main component of smooth muscle antibodies associated with autoimmune liver disease. Actin antibodies are found in approximately 75% of patients with autoimmune hepatitis (AIH) type 1, approximately 65% of patients with autoimmune cholangitis, approximately 30% of patients with primary biliary cirrhosis, and approximately 2% of healthy people. High values are closely correlated with AIH type 1. Specimen Blood Narrative Performed At Performing Lab [facility] te [address] [place] [address] Wilder Ochoa MD, PhD, BEATRICE Performing Organization Address City/[facility] Centercode Phone Number [facility] [place] [address] INCORPORATED [address] [facility] [id number] (10/23/2020 5:14 AM RUBBER CALENDER HELPER) Pathologist Sig nature A-1 Antitrypsin 102.40 90.00 - 200.00 [facility] mg/dL [facility] Specimen Blood Narrative Performed At [employer] [facility] ID - [place] [facility] Performing Organization Address City/[facility]/Zipcode Phone Number [address] [phone] CENTER Hemoglobin and hematocrit (10/23/2020 5:14 AM RUBBER CALENDER HELPER) Pathologist Sig nature Hemoglobin 9.0 (L) 11.2 - 15.7 GM/DL [facility] Hematocrit 30.0 (L) 34.1 - 44.9 % [facility] Specimen Blood Performing Organization Address City/[facility] Centercode Phone Number [address] [phone] CENTER Ceruloplasmin (10/23/2020 5:14 AM RUBBER CALENDER HELPER) Pathologist Sig [facility] Ceruloplasmin 27 18 - 53 mg/dL [facility] [place] Specimen Blood Narrative Performed At Performing Lab [facility] *BARB [facility], [address] [place] [id number] Dahiana Small MD Performing Organization Address City/[facility] Centercode Phone Number [facility] [place] [address] INCORPORATED [address] [facility] Alpha fetoprotein (AFP), tumor marker (10/23/2020 5:14 AM RUBBER CALENDER HELPER) Pathologist Sig [facility] Alpha-Fetoprotein <2.0 <10.0 ng/mL [facility] Specimen Blood Narrative Performed At [employer] ID - [place] [facility] Performing Organization Address City/[facility] Centercode Phone Number [address] [place] [phone] [place] Hepatitis panel, acute (10/23/2020 5:14 AM RUBBER CALENDER HELPER) Pathologist Sig nature Hep A IgM Nonreactive Nonreactive [facility] Hep B C IgM Nonreactive Nonreactive [facility] Hepatitis C Ab Reactive (A) Nonreactive [facility] HBsAg Screen Nonreactive Nonreactive [facility] Specimen Blood Narrative Performed At [employer] [place] ID - [place] [facility] Performing Organization Address City/[facility]/Zipcode Phone Number [address] [address] [place] Hepatitis B core antibody, total (10/23/2020 5:14 AM RUBBER CALENDER HELPER) Pathologist Sig nature Hep B Core Total Ab Nonreactive Nonreactive [facility] Specimen Blood Narrative Performed At [employer] [place] ID - [place] [facility] Performing Organization Address City/[facility] Centercode Phone Number [address] [address] [place] Hepatitis C genotype (10/23/2020 5:14 AM RUBBER CALENDER HELPER) HCV Genotype, 3 [facility] LiPA Comment: INCORPORATED The method used in this test is RT-PCR and reverse hybridization (Line Probe) of the 5' UTR and core region of the HCV genome. The analytical performance characteristics of this assay have been determined by [employer] [facility]. The modifications have not been cleared or approved by the FDA. This assay has been validated pursuant to the CLIA regulations and is used for clinical purposes. For additional information, please refer to http://education.Etohum /faq/HCVGenotypi ng (This link id being provided for informational/ educational purposes only.) Specimen Blood Narrative Performed At Performing Lab [facility] *QDID [employer] [facility] [address] [place] [address] Arnie Phillips MD Performing Organization Address City/State/Zipcode Phone Number [facility] [place] [address] INCORPORATED [address] [facility] Hepatitis C PCR, Quantitative (10/23/2020 5:14 AM RUBBER CALENDER HELPER) Pathologist Sig nature HCV PCR, Quantitative 282,000 (H) <15 IU/mL [facility] Specimen Blood Narrative Performed At This test uses a Real-Time Polymerase Chain [facility] Reaction (RT-PCR) methodology and was performed using [employer] Ampliprep/MARIXA TaqMan HCV test kit version 2.0 ([employer]). Reportable range for this assay is 15 - 100,000,000 IU per mL (1.18 - 8.00 Log IU/mL). Performing Organization Address City/[facility]/Zipcode Phone Number [address] [address] CENTER Reticulocyte count (10/23/2020 5:14 AM RUBBER CALENDER HELPER) Pathologist Sig nature % Retic 4.6 (H) 0.5 - 1.7 % [facility] Specimen Blood Narrative Performed At Box Maker Wood ID - [id number] [facility] Performing Organization Address [facility] Phone Number [address] [address] CENTER Anti-Nuclear Antibody (LUCAS) (10/23/2020 5:14 AM RUBBER CALENDER HELPER) Pathologist Sig nature LUCAS Negative Negative [facility] Specimen Blood Narrative Performed At Test performed by IFA method. [facility] Test performed by IFA method. Performing Organization Address City/[facility]/Zipcode Phone Number [address] [address] CENTER Folate, Serum (10/23/2020 5:14 AM RUBBER CALENDER HELPER) Pathologist Sig nature Folate 12.30 >=7.00 ng/mL [facility] Specimen Blood Narrative Performed At Box [employer] [place] ID - AAHAMID [facility] Performing Organization Address City/[facility]/Zipcode Phone Number [facility] [address] [place] [address] CENTER Ferritin (10/23/2020 5:14 AM RUBBER CALENDER HELPER) Pathologist Sig nature Ferritin 71.00 5.00 - 275.00 ng/mL [facility] Specimen Blood Narrative Performed At [employer] ID - AADIXIEID [facility] Performing Organization Address City/State/Zipcode Phone Number [facility] [address] [place] [phone] CENTER Vitamin B12 (10/23/2020 5:14 AM RUBBER CALENDER HELPER) Pathologist Sig nature Vitamin B12 1,494 (H) 213 - 816 pg/mL [facility] Specimen Blood Narrative Performed At Box Maker [place] ID - [place] Doll [facility] Performing Organization Address City/[facility] Cent[facility]ode Phone Number [facility] [address] [place] [phone] CENTER US abdominal with doppler (10/22/2020 9:15 PM RUBBER CALENDER HELPER) Specimen Narrative Performed At FINAL REPORT [place] Ultrasound of the Abdomen, with Doppler Clinical History: ascites, cirrhosis Comparison: None. Technique: Sonographic evaluation of t abdomen was performed with Doppler. Findings: Liver: 9.6 cm in length at the right midclavicular line. Cirrhotic morphology. No lesion is identified by ultrasound. Main portal vein diameter 0.7 cm. Main portal vein is pat ent and demonstrates hepatopetal flow. Biliary tree: Common duct 3 mm. No i ntrahepatic biliary ductal dilatation. Gallbladder: Surgically absent. Pancreas: Partially obscured by bowel ga s but the visualized portions are grossly unremarkable. Ascites: Small abdominal ascites. Spleen: 15.3 cm in length. Perisplenic varices are noted in keeping with portal hypertension. Kidneys: Right kidney 11.5 x 5.7 x 5. 8 cm with cortical thickness of 1.5 cm. Left kidney 11.9 x 4.7 x 5. 1 cm with cortical thickness of 1.4 cm. Normal cortical echogenicit y. No shadowing calculus, no hydronephrosis. IVC/Aorta: Visualized segments are unrem arkable. Unremarkable. Color and spectral Doppler evaluation of the hepatic vasculature: The main portal vein and branches are patent and demonstrate hepatopetal flow. The peak systolic velocity in the main portal vein is 21.1 cm/s. The proper, right and left hepatic arteries are patent with normal waveforms. The resistive indices in the proper, right and left hepatic arteries are 0.5, 0.7 and 0.5 re spectively. The hepatic confluence, main hepatic vein and branch es are patent with normal waveforms. The splenic vein at the pancr eatic head and tail are patent with normal waveforms. The spleni c artery and vein at the hilum are patent with normal waveforms. Impression: Cirrhosis and evidence of portal hyperte nsion. Patent main portal vein. Small abdominal ascites. Signed: Mila Richardson MD Report Verified Date/Time: 10/22/2020 21:58:54 Procedure Note Interface, External Ris In - 10/23/2020 2:18 AM RUBBER CALENDER HELPER FINAL REPORT Ultrasound of the Abdomen, with Doppler Clinical History: ascites, cirrhosis Comparison: None. Technique: Sonographic evaluation of e abdomen was performed with Doppler. Findings: Liver: 9.6 cm in length at the right m idclavicular line. Cirrhotic morphology. No lesion is identified by ultrasound. Main portal vein diameter 0.7 cm. Main portal vein is pat ent and demonstrates hepatopetal flow. Biliary tree: Common duct 3 mm. No int rahepatic biliary ductal dilatation. Gallbladder: Surgically absent. Pancreas: Partially obscured by bowel ga s but the visualized portions are grossly unremarkable. Ascites: Small abdominal ascites. Spleen: 15.3 cm in length. Perisplenic varices are noted in keeping with portal hypertension. Kidneys: Right kidney 11.5 x 5.7 x 5.8 cm with cortical thickness of 1.5 cm. Left kidney 11.9 x 4.7 x 5.1 cm with cortical thickness of 1.4 cm. Normal cortical echogenicity . No shadowing calculus, no hydronephrosis. IVC/Aorta: Visualized segments are unrem arkable. Unremarkable. Color and spectral Doppler evaluation of the hepatic vasculature: The main portal vein and branches are patent and demonstrate hepatopetal flow. The peak systolic velocity in the main portal vein is 21.1 cm/s. The proper, right and left hepatic arteries are patent with normal waveforms. The resistive indices in the proper, right and left hepatic arteries are 0.5, 0.7 and 0.5 re spectively. The hepatic confluence, main hepatic vein and branch es are patent with normal waveforms. The splenic vein at the pancr eatic head and tail are patent with normal waveforms. The spleni c artery and vein at the hilum are patent with normal waveforms. Impression: Cirrhosis and evidence of portal hyperte nsion. Patent main portal vein. Small abdominal ascites. Signed: Mila Richardson MD Report Verified Date/Time: 10/22/2020 2 1:58:54 Performing Organization Address City/State/Zipcode Phone Number [facility] Urinalysis w/Microscopic + Reflex to Culture (10/22/2020 5:23 PM RUBBER CALENDER HELPER) Color, UA Yellow [facility] Clarity, UA Hazy [facility] Specific [place], 1.024 1.001 - 1.035 [facility] pH, UA 5.5 5.0 - 8.0 [facility] Protein, UA 20 mg/dL (A) Negative [facility] Glucose, UA Negative Negative [facility] Ketones, UA Negative Negative [facility] Bilirubin, UA Negative Negative [facility] Blood, UA Small (A) Negative [facility] Nitrite, UA Negative Negative [facility] Leukocytes, UA Negative Negative [facility] Urobilinogen, UA 0.2 0.2 - 1.0 mg/dL [facility] RBC, UA 1 /HPF [facility] WBC, UA 4 /HPF [facility] Mucus Rare [facility] Squam Epithel, UA 9 /HPF [facility] Specimen Source [facility] Specimen Urine Narrative Performed At [employer] Maker [employer] ID - tech [facility] Performing Organization Address City/State/Zipcode Phone Number [facility] [address] [place] [address] CENTER SARS-CoV2/RT-PCR (Asymptomatic ONLY) (10/22/2020 3:22 PM RUBBER CALENDER HELPER) SARS-COV2/RT-PCR Negative Not Detected, [facility] Negative, See [facility] external report CENTER for linked test SARS-COV-2 [facility] PERFORMING LAB [facility] Specimen Other - Nasopharyngeal wall structure (b tan structure) Narrative Performed At Negative result for this test determines that [facility] SARS-CoV-2 RNA was not present in the specimen above the Limit of Detection (LOD). However, Negative results do not preclude SARS-CoV-2 infection and should not be used as the sole basis for treatment or patient management decisions. Negative results must be combined with clinical observations, patient history, and epidemiological information. A false negative result may occur if a specimen is improperly collected, transported or handled. A false negative result should be considered if patient's recent exposures or clinical presentation indicate that COVID-19 (SARS-CoV-2) is likely and diagnostic tests for other causes of illness are negative. Re-testing should be considered in cases of suspected false negatives. The limit of detection for this assay is 800 copies/mL. This SARS CoV-2 test is a real-time RT-PCR test intended for the qualitative detection of nucleic acid from SARS-CoV-2 in a nasopharyngeal swab specimen collected from individuals suspected of COVID-19 by their healthcare provider. This test has not been Food and Drug Administration (FDA) cleared or approved. This is a modified version of an approved Emergency Use Authorization (EUA) and is in the process of review by the FDA. Once authorized by the FDA, the issued EUA will be effective until the declaration that circumstances exist justifying the authorization of the emergency use of in vitro diagnostic tests for detection and/or diagnosis of COVID-19 is terminated under Section 564(b)(2) of the Act or the EUA is revoked under Section 564(g) of the Act. Fact Sheet for Healthcare Providers: https://www.[employer]/sites/default/files/pro duct/documents/Fact_Sheet_HC_Providers_Lyra_SA RS-CoV-2.pdf Fact Sheet for Healthcare Patients: https://www.[employer]/sites/default/files/pro duct/documents/Fact_Sheet_Patients_Lyra_SARS-C oV-2.pdf Performing Laboratory: [address] [place] [address] Performing Organization Address [facility] [place] [address] [place] Blood Culture - Routine (Right Venipuncture) (10/22/2020 3:07 PM RUBBER CALENDER HELPER) Pathologist Sig nature Result No growth in [address] [facility] Specimen Blood - Entire left upper arm (body stru cture) Performing Organization Address [facility] Phone Number [address] [address] [place] Troponin I (not available at [facility]) (10/22/2020 2:07 PM RUBBER CALENDER HELPER) Pathologist Sig nature Troponin I 0.01 0.00 - 0.03 ng/mL [facility] Specimen Blood Narrative Performed At Troponin I (TnI) levels must be interpreted [facility] in the context of the presenting symptoms and the clinical findings. Elevated TnI levels indicate myocardial damage, but are not specific for ischemic heart disease. Elevated TnI levels are seen in patients with other cardiac conditions (including myocarditis and congestive heart failure), and slight TnI elevations occur in patients with other conditions, including sepsis, renal failure, acidosis, acute neurological disease, and persistent tachyarrhythmia. Box Maker Wood ID - ADMIN Performing Organization Address City/State/Zipcode Phone Number [facility] [address] [place] [phone] [place] Liver Panel (10/22/2020 2:07 PM RUBBER CALENDER HELPER) Pathologist Sig nature Protein, Total 4.6 (L) 6.0 - 8.3 gm/dL [facility] Albumin 1.7 (L) 3.5 - 5.0 g/dL [facility] Total Bilirubin 3.5 (H) 0.2 - 1.2 mg/dL [facility] Bilirubin, Direct 1.7 (H) 0.1 - 0.5 mg/dL [facility] Alkaline Phosphatase 106 40 - 150 U/L [facility] AST 132 (H) 5 - 34 U/L [facility] ALT 61 (H) 6 - 55 U/L [facility] Specimen Blood Narrative Performed At Box Maker Wood ID - ADMIN [facility] Specimen slightly icteric Performing Organization Address City/State/Zipcode Phone Number [address] [address] [place] Basic metabolic panel (Na, K+, Cl, CO2, Glu, Ca, BUN, Cr) (10/22/2020 2:07 PM RUBBER CALENDER HELPER) Sodium 141 136 - 145 meq/L [facility] Potassium 3.1 (L) 3.5 - 5.1 meq/L [facility] Chloride 107 98 - 107 meq/L [facility] CO2 30 (H) 22 - 29 meq/L [facility] BUN 12 7 - 21 mg/dL [facility] Creatinine 0.65 0.57 - 1.25 [facility] mg/dL [facility] Glucose 90 70 - 105 mg/dL [facility] Calcium 7.0 (L) 8.4 - 10.2 [facility] mg/dL [facility] EGFR 96Comment: ESTIMATED mL/min/1.73 sq [facility] GFR IS NOT m [facility] CREATININE CLEARANCE IN PREDICTING GLOMERULAR FILTRATION RATE. ESTIMATED GFR IS NOT APPLICABLE FOR DIALYSIS PATIENTS. Specimen Blood Narrative Performed At Box Maker Wood ID - ADMIN [facility] Specimen slightly icteric Performing Organization Address City/[facility]/Zipcode Phone Number [facility] [address] [place] [address] CENTER ECG 12 lead (10/22/2020 2:01 PM RUBBER CALENDER HELPER) Specimen Narrative Performed At Ventricular Rate 83 BPM GE MUSE Atrial Rate 83 BPM P-R Interval 110 ms QRS Duration 76 ms Q-T Interval 432 ms QTC Calculation(Bazett) 507 ms P [place] 61 degrees R [place] 28 degrees T [place] 34 degrees Sinus rhythm with short [place] Low voltage QRS Prolonged QT Abnormal ECG No previous ECGs available Confirmed by MD Farnsworth Roberto ([id number]) on 2020 3:18:11 PM Procedure Note Interface, External Ris In - 10/23/2020 3:18 PM RUBBER CALENDER HELPER Ventricular Rate 83 BPM Atrial Rate 83 BPM P-R Interval 110 ms QRS Duration 76 ms Q-T Interval 432 ms QTC Calculation(Bazett) 507 ms P [place] 61 degrees R [place] 28 degrees T [place] 34 degrees Sinus rhythm with short [place] Low voltage QRS Prolonged QT Abnormal ECG No previous ECGs available Confirmed by MD Farnsworth Roberto ([id number]) on 10/23/2020 3:18:11 PM Performing Organization Address [facility] Centercode Phone Number GE MUSE XR chest 1 view portable / bedside (10/22/2020 1:46 PM RUBBER CALENDER HELPER) Specimen Narrative Performed At FINAL REPORT [facility] CHEST AP PORTABLE History provided: Abdominal pain Heart size magnified by projection. Lung s grossly clear and vascularity normal. Signed: Francisco Javier Garcia MD Report Verified Date/Time: 10/22/2020 15:35:51 Reading Location: [facility] Radiology [facility] Electronically signed by: FRANCISCO JAVIER santiago 10/22/2020 03:35 PM Procedure Note Interface, External Ris In - 10/22/2020 3:38 PM RUBBER CALENDER HELPER FINAL REPORT CHEST AP PORTABLE History provided: Abdominal pain Heart size magnified by projection. Lung s grossly clear and vascularity normal. Signed: Francisco Javier Garcia MD Report Verified Date/Time: 10/22/2020 1 5:35:51 Reading Location: [facility] Radiology Readin Room Performing Organization Address City/State/Zipcode Phone Number [facility] after 11/01/2019 Advance Directives For more information, please contact: [phone] Code Status Date Activated Date Inactivated Comments Full Code 10/22/2020 2:24 PM 10/24/2020 8:03 PM This code status was determined by: Patient
--- OUTSIDE RECORDS SUMMARY | 2020-11-01 20:05 | XMS REPORT | Continuity of Care Document ---
:1970 Author Organization [facility] t Address [address] [place] [address] Care Team Providers Name Role Phone Octavio Vivar MD Attending Clinician ANALI Attending Clinician Unavailable Anali JEFF Attending Clinician Ni Moon MD Attending Clinician Merchant JEFF Attending Clinician Shahbaz Rodriguez MD Attending Clinician Sonia Toney MD Attending Clinician Vasyl RN, E Attending Clinician Norman Boss MD Attending Clinician Kevin Newman MD Attending Clinician Olivia JEFF Attending Clinician Shane Attending Clinician Carito Nam MD Attending Clinician Andrea JEFF Attending Clinician Lavon JEFF Attending Clinician Doctor Unassigned, Name Attending Clinician Unavailable Carito Nair Attending Clinician Admitting Clinician Unavailable Dalila JEFF Admitting Clinician Andrea JEFF Admitting Clinician Problems Condition Condition Condition Status Onset Resolution Last Treating Co mments Source Name Details Category Date Date Treatment Clinician Date Black Black Disease Active [facility]ools [facility]24 [facility]: Medical 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 Cirrhosis Cirrhosis Disease Active [facility]: Medical Melbeta Volume Volume Disease Active [facility] overload overload 10-24 [facility] - 00:00: Medical 00 Melbeta Allergies, Adverse Reactions, Alerts Allergy Allergy Status Severity Reaction(s) Onset Inactive Treating Comm ents Source Name Type Date Date Clinician Ondanset Drug Active Rash [facility] lillie Hcl Allergy 10-22 [facility] - (Pf) 00:00: Medical 00 Melbeta Social History Social Habit Start Date Stop Date Quantity Comments Source Sex Assigned At [facility] Tobacco use and 2020-10-23 2020-10-23 Never used [facility] - exposure 00:00:00 00:00:00 [facility] Alcohol intake 2020-10-23 2020-10-23 Ex-drinker [facility] es - 00:00:00 00:00:00 (finding) [facility] Smoking Status Start Date Stop Date Source Current some day smoker 2020-10-23 00:00:00 [facility] Medications Ordered Filled Start Stop Current Ordering Indication Dosage Frequency Signature Comments Components Source Medication Medication Date Date Medication? Clinician (SIG) Name Name spironolact 2021- Yes 100mg QD Take [address] one 10-25 tablet [facility] - (ALDACTONE) 00:00: 23:59 (100 mg Me dical 100 MG 00 :00 total) by Center tablet mouth daily. lactulose 2020- No 20g Q.07363127 Take [address] [facility] (CHRONULAC) 10-24 [id number] by mouth 3 [facility] - 10 gram/15 15:10: 00:00 3D (three) Med ical mL (15 mL) 38 :00 times Center solution daily. rifAXIMin 2020- No 550mg Q.5D Take [address] 550 mg Tab 1-08 01-08 mg by [facility] - 15:10: 00:00 mouth 2 Medical 38 :00 (two) Center times daily. furosemide 2020- No 40mg QD Take [address] [facility] (LASIX) 40 10-24 by mouth Luke s - MG tablet 15:10: 00:00 daily. Medic al 38 :00 Center rifAXIMin Yes hepatic 550mg Q.5D Take [address] 550 mg Tab 10-24 encephalopa tablet [facility] - 00:00: thy (550 mg Medical 00 total) by Center mouth 2 (two) times daily. lactulose 2021- Yes 20g Q.75742614 Take [address] [facility] (CHRONULAC) 10-24 [id number] mLs (20 g [facility] - 10 gram/15 00:00: 23:59 3D total) by M edical mL (15 mL) 00 :00 mouth 3 Center solution (three) times daily. potassium 2021- Yes 20meq QD Take [address] [address] chloride SA 10-24 tablet (20 L ukes - (K-DUR,KLOR 00:00: 23:59 mEq total) Medical -CON) 20 00 :00 by mouth Center MEQ tablet daily. furosemide 2020- Yes Take [address] [facility] (LASIX) 40 10-24 04-15 tablet (40 Mita kes - MG tablet 00:00: 23:59 mg total) Me dical 00 :00 by mouth 2 Center (two) times daily for 7 days, THEN 1 tablet (40 mg total) daily for 90 days. pantoprazol 2020- Yes 40mg Q.5D Take [address] e 10-2407 tablet (40 [facility] - (PROTONIX) 00:00: 23:59 mg total) M edical 40 MG 00 :00 by mouth 2 Center tablet (two) times daily for 30 days. Vital Signs Vital Name Observation Time Observation Value Comments Source Systolic blood 2020-10-24 12:45:00 128 mm[Hg] [facility] Diastolic blood 2020-10-24 12:45:00 77 mm[Hg] [facility] pressure [facility] Heart rate 2020-10-24 12:45:00 95 /min [facility] Body temperature 2020-10-24 12:45:00 36.78 Tamar [facility] Respiratory rate 2020-10-24 12:45:00 16 /min [facility] Oxygen saturation in 2020-10-24 12:45:00 99 /min [facility] - Arterial blood by Medical Ce nter Pulse oximetry Body height 2020-10-22 18:07:00 162.6 cm [facility] Body weight 2020-10-22 18:07:00 88.14 kg [facility] BMI 2020-10-22 18:07:00 33.35 kg/m2 [facility] Procedures Procedure Date / Time Performed Performing Clinician [facility] e US ABDOMEN LIMITED 2020-10-24 14:23:00 [facility] COMPREHENSIVE METABOLIC 2020-10-24 02:19:00 Sanjay [facility] PROTHROMBIN TIME/INR 2020-10-24 02:19:00 [facility] CBC W/PLT COUNT & AUTO 2020-10-24 02:19:00 Merchant [facility] REPORT OF PROCEDURE - 2020-10-23 13:12:14 Ruth Toney [facility] UPPER ENDOSCOPY 2020-10-23 09:39:00 Ruth Toney [facility] MAGNESIUM 2020-10-23 05:15:00 Silvio Riggs [facility] COMPREHENSIVE METABOLIC 2020-10-23 05:15:00 Sanjay [facility] HEMOGLOBIN AND HEMATOCRIT 2020-10-23 05:14:00 [facility] PROTHROMBIN TIME/INR 2020-10-23 05:14:00 Sanjay [facility] HEPATITIS C PCR, 2020-10-23 05:14:00 Sanjay [facility] HEPATITIS C GENOTYPE 2020-10-23 05:14:00 Sanjay [facility] HEPATITIS PANEL, ACUTE 2020-10-23 05:14:00 Sanjay [facility] [id number]\, 2020-10-23 05:14:00 Sanjay [facility] SERUM [facility] ALPHA FETOPROTEIN (AFP), 2020-10-23 05:14:00 Sanjay [facility] TUMOR MARKER [facility] CERULOPLASMIN 2020-10-23 05:14:00 Sanjay, [facility] FERRITIN 2020-10-23 05:14:00 Sanjay [facility] IRON, TIBC, % SAT. 2020-10-23 05:14:00 Sanjay [facility] (WITHOUT FERRITIN) [facility] VIT[facility] B12 2020-10-23 05:14:00 Sanjay [facility] FOLATE, SERUM 2020-10-23 05:14:00 Sajnay [facility] RETICULOCYTE COUNT 2020-10-23 05:14:00 Sanjay [facility] ACTIN (SMOOTH MUSCLE) 2020-10-23 05:14:00 Sanjay [facility] ANTIBODY, IGG [facility] ANTI-NUCLEAR ANTIBODY 2020-10-23 05:14:00 Sanjay [facility] (LUCAS) [facility] HC LAB FLUORESC AB SCRN 2020-10-23 05:14:00 Sanjay [facility] EA AB [facility] HEPATITIS B CORE 2020-10-23 05:14:00 Sanjay, [facility] s - ANTIBODY, TOTAL [facility] HEPATITIS A ANTIBODY, IGG 2020-10-23 05:14:00 Sanjay [facility] MITOCHONDRIAL AB SCREEN 2020-10-23 05:14:00 Sanjay [facility] MITOCHONDRIAL AB TITER 2020-10-23 05:14:00 Sanjay, [facility] CBC W/PLT COUNT & AUTO 2020-10-23 05:14:00 Silvio Riggs [facility] DIFFERENTIAL [facility] US ABDOMINAL WITH DOPPLER 2020-10-22 21:15:00 Silvio Riggs [facility] URINALYSIS W/ REFLEX 2020-10-22 17:23:00 Eusebio Grace [facility] - URINE CULTURE [facility] SARS-COV2/RT-PCR ([facility] & 2020-10-22 15:22:00 [facility] - REF LABS) [facility] BLOOD CULTURE 2020-10-22 15:07:00 [facility] BASIC METABOLIC PANEL (7) 2020-10-22 14:07:00 Mandie Moon [facility] HEPATIC FUNCTION PANEL 2020-10-22 14:07:[address] [facility] TROPONIN I 2020-10-22 14:07:00 Sarai [facility] CBC W/PLT COUNT & AUTO 2020-10-22 14:07:00 Sarai [facility] ECG 12-LEAD 2020-10-22 14:01:12 Unknown, Hl7 Doctor [facility] XR CHEST 1 VIEW 2020-10-22 13:46:00 [facility] PORTABLE/BEDSIDE [facility] Center Plan of Care Planned Activity Planned Date Details Comments Source Future Scheduled 2020-10-[address] [facility] - Test 00:00:00 (12+) [code = [facility] DEPRESSION SCREENING (12+)] Future Scheduled 2020-06-17 INFLUENZA VACCINE (#1) [facility] Test 00:00:00 [code = INFLUENZA Medical nter VACCINE (#1)] Future Scheduled [address] - Test 00:00:00 (procedure) [code = [facility] 14869102] Future Scheduled [address] [facility] - Test 00:00[facility]00 [facility] cervix (procedure) [code = 781301041] Future Scheduled [address] [facility] - Test 00:00:00 0-64 YRS (1 of 1 - Medical C enter PPSV23) [code = PNEUMOCOCCAL VACCINE 0-64 YRS (1 of 1 - PPSV23)] Future Scheduled [address] [facility] - Test 00:00:00 [facility] breast (procedure) [code = 978654081] Future Scheduled [address] [facility] - Test 00:00:00 malignant neoplasm of [facility] colon (procedure) [code = 537696791] Encounters Start End Encounter Admission Attending Care Care Encounter Source Date/Time Date/Time Type Type Clinicians Facility Department ID 2020-10-13 2020-10-13 Patient Diane Fallon [id number] 00:00:00 00:00:00 Outreach E Pham [id number] [place] 4.2.7.2.686 [id number] 2020-10-01 2020-10-03 [facility] Ruben Boss [facility] 1.2.840 .114 [id number] 14:36:00 10:48:00 Encounter Jordi Garcia [facility] [id number] .10 Cristofer Baker Clear 4.2.7.2.686 [place] [id number] [facility] 109 ([facility]) 2020-09-29 2020-09-29 Patient Diane Fallon [id number] 00:00:00 00:00:00 Outreach E Pham [id number] [place] 4.2.7.2.686 [id number] 2020-09-25 2020-09-25 Transition LynnDar loera 1.2.840.114 [id number] 00:00:00 00:00:00 of Care Valerie Pham [id number] [place] 4.2.7.2.686 [id number] 2020-09-22 2020-09-24 [facility] RaziailBalta [facility] 1.2.840. 114 [id number] 05:04:00 10:44:00 Encounter EzAlondra peterson Health [id number] [place] 4.2.7.2.686 [place] [id number] Hospital 111 (CLC) 2020-06-30 2020-06-30 Emergency Lavon [facility] [id number] 14:48:00 18:31:00 Hugo Means 350.1.13.10 [place] 4.2.7.2.686 [place] [id number] 2019-06-11 2019-06-11 Orders Doctor NARENDRA [id number] 00:00:00 00:00:00 Only Unassigned, STAR [id number] [place]ink [facility] 4.2.7.2.686 [id number] 2019-05-11 2019-05-11 Emergency Carl [facility] [id number] 10:42:22 12:29:00 Marianne Means 350.1.13.10 [place] 4.2.7.2.686 [place] [id number] [id number] Results Test Description Test Time Test Comments Results Result Comments Source Hepatitis C genotype 2020-10-28 20:39:00 Test Item Value Reference Range Interpretation Comme nts HCV Genotype, 3 The method use d in this test is RT-PCR and LiPA (test code = reversehyb ridization (Line Probe) of the 5' 6444008) UTR and corereg ion of the HCV genome. The analytical perf ormance characteristics of thisassay have been determined by [facility]. The modifications h ave not beencleared or approved by the FDA. Thi s assay has beenvalidated pursuant to the CLIA regulations and isused for clinical pu rposes. For additional information, pl ease refer tohttp://educat ion.[employer] /faq/HCVGenotyp ing(This link id being provided for information al/educational purposes only.) MADDIE (test code = Performing Lab MADDIE) *QDID [facility] [address] [place] [address] Arnie Phillips MD [facility] (Smooth Muscle) Antibody, [id number] 01:39:00 Test Item Value Reference Interpretation Comments Range Anti-Smooth Muscle 23 U See Note: H Reference Range:<20 Ab (test code = NEGATI VE> OR ) = 20 POSITIVE Antibodies recognizing act in are the main componentof smo oth muscle antibodi es associated withautoimmune liver disease. Actin antibodie s arefound in approximately 7 5% of patients withautoimmune hepatitis (AIH) type 1, [id number] % of patients with autoimmune cholangitis,mary bi mately 30% of patients with primary biliarycirrhosi s, and approximate ly 2% of healthy people.High luz ues are closely correlated with AIH type 1. MADDIE (test code = Performing Lab MADDIE) EZ [facility] [address] [place] [address] Wilder Ochoa MD, PhD, BEATRICE Lab Interpretation Abnormal (test code = 37581-8) [facility] Culture - Routine (Right Venipuncture) 2020-10-27 18:00:00 Test Item Value Reference Range Interpretation Comments Result (test code = No growth in 5 days 6463-4) [facility] [id number] 18:00:00 Test Item Value Reference Range Interpretation Comments CULTURE (BEAKER) (test No growth in 5 days code = 1095) ANTI-MITOCHONDRIAL AB, REFLEX TO [id number] 10:14:00 Test Item Value Reference Range Interpretation Comments SCAN RESULT (test code = 3239507) Anti-Mitochondrial Ab, reflex to [id number] 10:14:00Scan ResultQUEST DIAGNOSTIC INCORPORATEDLos Alamitos Medical CenterMitochondrial Ab Screen 2020-10-25 12:18:00 Test Item Value Reference Range Interpretation Comments Anti-Mitocho NEGATIVE NEGATIVE This test was developed nd Abs (test and its analyti vasile code = performance 0726700) characteristics havebeen determined by [facility].It h as not been cleared or approved by FDA. This as say has been validatedp ursuant to the CLIA reg ulations and is used for clinical purposes. MADDIE (test Performing Lab code = MADDIE) EZ [facility] [address] [facility] [place] [address] Wilder Ochoa MD, PhD, BEATRICE [facility] [id number] 12:18:00 Test Item Value Reference Range Interpretation Comments Mitochondrial Ab TNP <1:20 Test Not Titer (test code = Performed . 5875432) Screening test Negative or Not Detected. Titer notperformed. MADDIE (test code = Performing Lab MADDIE) EZ [facility] [place] [address] [place] [address] Wilder Ochoa MD, PhD, BEATRICE [facility] CenterCeruloplasmin2021-01-09 11:45:00 Test Item Value Reference Range Interpretation Comments Ceruloplasmin (test code 27 mg/dL 18-53 = 20191208) MADDIE (test code = MADDIE) Performing Lab *LUZ [employer] [facility], [address] [place] [address] Dahiana Small MD [facility] CenterHepatitis C PCR, [id number] 22:54:00 Test Item Value Reference Range Interpretation Comments HCV PCR, Quantitative 805177 <15 IU/mL H (test code = 90944-4) MADDIE (test code = MADDIE) This test uses a Real-Time Polymerase Chain Reaction (RT-PCR) methodology and was performed using MARIXA Ampliprep/MARIXA TaqMan HCV test kit version 2.0 ([employer]). Reportable range for this assay is 15 - 100,000,000 IU per mL (1.18 - 8.00 Log IU/mL). Lab Interpretation (test Abnormal code = 79452-5) [facility] C PCR, [id number] 22:54:00 Test Item Value Reference Range Interpretation Comments HCV NUMERIC RESULT (BEAKER) 553047 IU/mL <15 H (test code = 2700) This test uses a Real-Time Polymerase Chain Reaction (RT-PCR) methodology and was performed using [employer] Ampliprep/MARIXA TaqMan HCV test kit version 2.0 ([employer]).Reportable range for this assay is 15 - 100,000,000 IU per mL (1.18 - 8.00 Log IU/mL).U/S, ABDOMINAL, [id number] 17:32:00Labs to be ordered:->Body Fluid Culture (w/Gram Stain, C\T\S) Labs to be ordered:->Cell Count Labs to be ordered:->Glucose+LDH+Protein Labs to be ordered:->Cytology Reason for exam:->diagnostic para for new ascites in pt w/ cirrhosisCH[facility] ESP[facility]OSA : 1970 Sex: FFINAL REPORT Limited abdominal ultrasound CLINICAL HISTORY: Ascites F INDINGS: A limited abdominal ultrasound was performed and only a trace amount of fluid was seen. Therefore a paracentesis was not performed. Signed: Alex Gonzalez Verified Date/Time: 10/24/2020 17:32:34 Reading Location: [address] Ultrasound Reading Room US abdomen [id number] 17:32:00Interface, External Ris In - 10/24/2020 5:34 PM CSTFINAL REPORT Limited abdominal ultrasound CLINICAL HISTORY: Ascites FINDINGS: A limited abdominal ultrasound was performed and only a trace amount of fluid was seen. Therefore a paracentesis was not performed. Signed: Alex Gonzalez Verified Date/Time: 10/24/2020 17:32:34 Reading Location: [facility] B1 P006J Ultrasound Reading [facility] 2020-10-24 03:23:00 Test Item Value Reference Range Interpretation Comments Protein, Total (test 4.7 6.0- 8.3 gm/dL L code = 2885-2) Albumin (test code = 1.7 g/dL 3.5-5 L 87291-5) Alkaline Phosphatase 114 U/L 40-150 (test code = 6768-6) Total Bilirubin (test 3.0 mg/dL 0.2-1.2 H code = 1975-2) Sodium (test code = 139 meq/L 183-842 7560-2) Potassium (test code 3.2 meq/L 3.5-5.1 L = 2823-3) Chloride (test code = 106 meq/L 98-107 2075-0) CO2 (test code = 27 meq/L 22-29 2028-9) BUN (test code = 12 mg/dL 7-21 3094-0) Creatinine (test code 0.78 mg/dL 0.57-1.25 = 2160-0) Glucose (test code = 127 mg/dL 70-105 H 2345-7) Calcium (test code = 7.0 mg/dL 8.4-10.2 L 07621-9) AST (test code = 114 U/L 5-34 H 1920-8) ALT (test code = 58 U/L 6-55 H 1742-6) EGFR (test code = 78 mL/min/1.73 [place] [address]-0) NOT ACCURATE CREATININE CLEARANCE IN PREDICTING GLOMERULAR FILTRATION RATE . ESTIMATED GFR I S NOT APPLICABLE FOR DIALYSIS PATIENTS. MADDIE (test code = MADDIE) Marine Consultant ID - PIAYA LSpecimen slightly icteric Lab Interpretation Abnormal (test code = 69878-0) [facility] CenterCOMPREHENSIVE METABOLIC [id number] 03:23:00 Test Item Value Reference Range Interpretation Comments TOTAL PROTEIN 4.7 gm/dL 6.0-8.3 L (BEAKER) (test code = 770) ALBUMIN (BEAKER) 1.7 g/dL 3.5-5.0 L (test code = 1145) ALKALINE PHOSPHATASE 114 U/L 40-150 (BEAKER) (test code = 346) BILIRUBIN TOTAL 3.0 mg/dL 0.2-1.2 H (BEAKER) (test code = 377) SODIUM (BEAKER) (test 139 meq/L 136-145 code = 381) POTASSIUM (BEAKER) 3.2 meq/L 3.5-5.1 L (test code = 379) CHLORIDE (BEAKER) 106 meq/L 98-107 (test code = 382) CO2 (BEAKER) (test 27 meq/L 22-29 code = 355) BLOOD UREA NITROGEN 12 mg/dL 7-21 (BEAKER) (test code = 354) CREATININE (BEAKER) 0.78 mg/dL 0.57-1.25 (test code = 358) GLUCOSE RANDOM 127 mg/dL 70-105 H (BEAKER) (test code = 652) CALCIUM (BEAKER) 7.0 mg/dL 8.4-10.2 L (test code = 697) AST (SGOT) (BEAKER) 114 U/L 5-34 H (test code = 353) ALT (SGPT) (BEAKER) 58 U/L 6-55 H (test code = 347) EGFR (BEAKER) (test 78 mL/min/1.73 ESTIMA HARRIETT GFR IS code = 1092) sq m NOT ACCURATE CREATININE CLEARANCE IN PREDICTING GLOMERULAR FILTRATION RATE . ESTIMATED GFR I S NOT APPLICABLE FOR DIALYSIS PATIEN TS. Marine Consultant ID - PIAYA LSpecimen slightly ictericProthrombin time/[id number] 03:08:00 Test Item Value Reference Range Interpretation Comments Protime (test code = 19.8 11.9- 14.2 H 5902-2) seconds INR (test code = 1.75 <=5.90 6301-6) MADDIE (test code = MADDIE) Effective 03/14/2019: PT Reference Range ChangeNew: 11.9-14.2 Previous: 11.7-14.7 RECOMMENDED COUMADIN/WARFARIN INR THERAPY RANGESSTANDARD DOSE: 2.0-3.0 Includes: PROPHYLAXIS for venous thrombosis, systemic embolization; TREATMENT for venous thrombosis and/or pulmonary embolus.HIGH RISK: Target INR is 2.5-3.5 for patients wiht mechanical heart valves. Lab Interpretation Abnormal (test code = 07554-4) [facility] CenterPROTHROMBIN TIME/[id number] 03:08:00 Test Item Value Reference Range Interpretation Comments PROTIME (BEAKER) (test code = 19.8 seconds 11.9-14.2 H 759) INR (BEAKER) (test code = 370) 1.75 <=5.90 Effective 03/14/2019: PT Reference Range ChangeNew: 11.9-14.2 Previous: 11.7- 14.7RECOMMENDED COUMADIN/WARFARIN INR THERAPY RANGESSTANDARD DOSE: 2.0-3.0 Includes: PROPHYLAXIS for venous thrombosis, systemic embolization; TREATMENT for venous thrombosis and/or pulmonary embolus.HIGH RISK: Target INR is2.5-3.5 for patients wiht mechanical heart valves.CBC with platelet count + automated [id number] 02:45:00 Test Item Value Reference Range Interpretation Comments WBC (test code = 6690-2) 5.3 3.5- 10.5 K/L RBC (test code = 789-8) 3.40 3.93- 5.22 M/L L MCHC (test code = 786-4) 30.3 32.2- 35.5 GM/DL L Hematocrit (test code = 4544-3) 31.7 % 34.1-44.9 L MCV (test code = 787-2) 93.2 fL 79.4-94.8 MCH (test code = 785-6) 28.2 pg 25.6-32.2 RDW (test code = 788-0) 18.6 % 11.7-14.4 H Platelets (test code = 777-3) 62 150- 450 K/CU MM L MPV (test code = 34681-4) 13.0 fL 9.4-12.3 H nRBC (test code = 413) 0 0- 0 /100 WBC % Neutros (test code = 429) 52 % % Lymphs (test code = 430) 34 % % Monos (test code = 431) 10 % % Eos (test code = 432) 3 % % Baso (test code = 437) 1 % # Neutros (test code = 670) 2.73 1.56- 6.13 K/L # Lymphs (test code = 414) 1.81 1.18- 3.74 K/L # Monos (test code = 415) 0.54 0.24- 0.36 K/L H # Eos (test code = 416) 0.14 0.04- 0.36 K/L # Baso (test code = 417) 0.05 0.01- 0.08 K/L Immature Granulocytes-Relative 0 % 0-1 (test code = 2801) Lab Interpretation (test code = Abnormal 44852-5) [facility] W/PLT COUNT & AUTO [id number] 02:45:00 Test Item Value Reference Range Interpretation Comments WHITE BLOOD CELL COUNT (BEAKER) 5.3 K/ L 3.5-10.5 (test code = 775) RED BLOOD CELL COUNT (BEAKER) 3.40 M/ L 3.93-5.22 L (test code = 761) HEMOGLOBIN (BEAKER) (test code = 9.6 GM/DL 11.2-15.7 L 410) HEMATOCRIT (BEAKER) (test code = 31.7 % 34.1-44.9 L 411) MEAN CORPUSCULAR VOLUME (BEAKER) 93.2 fL 79.4-94.8 (test code = 753) MEAN CORPUSCULAR HEMOGLOBIN 28.2 pg 25.6-32.2 (BEAKER) (test code = 751) MEAN CORPUSCULAR HEMOGLOBIN CONC 30.3 GM/DL 32.2-35.5 L (BEAKER) (test code = 752) RED CELL DISTRIBUTION WIDTH 18.6 % 11.7-14.4 H (BEAKER) (test code = 412) PLATELET COUNT (BEAKER) (test code 62 K/CU MM 150-450 L = 756) MEAN PLATELET VOLUME (BEAKER) 13.0 fL 9.4-12.3 H (test code = 754) NUCLEATED RED BLOOD CELLS (BEAKER) 0 /100 WBC 0-0 (test code = 413) NEUTROPHILS RELATIVE PERCENT 52 % (BEAKER) (test code = 429) LYMPHOCYTES RELATIVE PERCENT 34 % (BEAKER) (test code = 430) MONOCYTES RELATIVE PERCENT 10 % (BEAKER) (test code = 431) EOSINOPHILS RELATIVE PERCENT 3 % (BEAKER) (test code = 432) BASOPHILS RELATIVE PERCENT 1 % (BEAKER) (test code = 437) NEUTROPHILS ABSOLUTE COUNT 2.73 K/ L 1.56-6.13 (BEAKER) (test code = 670) LYMPHOCYTES ABSOLUTE COUNT 1.81 K/ L 1.18-3.74 (BEAKER) (test code = 414) MONOCYTES ABSOLUTE COUNT (BEAKER) 0.54 K/ L 0.24-0.36 H (test code = 415) EOSINOPHILS ABSOLUTE COUNT 0.14 K/ L 0.04-0.36 (BEAKER) (test code = 416) BASOPHILS ABSOLUTE COUNT (BEAKER) 0.05 K/ L 0.01-0.08 (test code = 417) IMMATURE GRANULOCYTES-RELATIVE 0 % 0-1 PERCENT (BEAKER) (test code = 2801) ECG 12 [id number] 15:18:12Interface, External Ris In - 10/23/2020 3:18 PM CSTVentricular Rate 83 BPMAtrial Rate 83 BPMP-R Interval 110 msQRS Duration 76 msQ-T Interval 432 msQTC Calculation(Bazett) 507 msP [place] 61 degreesR [place] 28 degreesT [place] 34 degreesSinus rhythm with short PRLow voltage QRSProlonged QTAbnormal ECGNo previous ECGs availableConfirmed by MD Farnsworth Roberto ([id number]) on 10/23/2020 3:18:11 [facility] HospitalFerritin2021[facility] 12:56:00 Test Item Value Reference Range Interpretation Comments Ferritin (test code = 71.00 ng/mL 5-275 2276-4) MADDIE (test code = MADDIE) Marine Consultant ID - AAHAMID Lab Interpretation (test Normal code = 93778-3) [facility] CenterFolate, [id number] 12:56:00 Test Item Value Reference Range Interpretation Comments Folate (test code = 12.30 ng/mL >=7.00 2284-8) MADDIE (test code = MADDIE) Marine Consultant ID - AAHAMID Lab Interpretation (test Normal code = 53891-6) [facility] CenterFERRITIN2021-01-07 12:56:00 Test Item Value Reference Range Interpretation Comments FERRITIN (BEAKER) (test code = 71.00 ng/mL 5.00-275.00 361) Marine Consultant ID - AAHAMIDFOLATE, [id number] 12:56:00 Test Item Value Reference Range Interpretation Comments FOLATE (BEAKER) (test code = 362) 12.30 ng/mL >=7.00 Marine Consultant ID - AAHAMIDAnti-Nuclear Antibody (LUCAS)2020-10-23 10:30:00 Test Item Value Reference Range Interpretation Comments LUCAS (test code = 77354-6) Negative Negative MADDIE (test code = MADDIE) Test performed by IFA method.Test performed by IFA method. Lab Interpretation (test Normal code = 83034-1) [facility] CenterANTI-NUCLEAR ANTIBODY (LUCAS)2020-10-23 10:30:00 Test Item Value Reference Range Interpretation Comments ANTI-NUCLEAR ANTIBODY (LUCAS) (BEAKER) Negative Negative (test code = 418) Test performed by IFA method.Test performed by IFA method.Hepatitis panel, acute 2020-10-23 10:06:00 Test Item Value Reference Range Interpretation Comments Hep A IgM (test code = Nonreactive Nonreactive 25783-0) Hep B C IgM (test code = Nonreactive Nonreactive 83751-8) Hepatitis C Ab (test Reactive Nonreactive A code = 04174-4) HBsAg Screen (test code Nonreactive Nonreactive = 5195-3) MADDIE (test code = MADDIE) Marine Consultant ID - HOUSTON M Lab Interpretation (test Abnormal code = 12876-7) [facility] CenterHEPATITIS PANEL, [id number] 10:06:00 Test Item Value Reference Range Interpretation Comments HEPATITIS A IGM ANTIBODY (BEAKER) Nonreactive Nonreactive (test code = 498) HEPATITIS B CORE IGM ANTIBODY Nonreactive Nonreactive (BEAKER) (test code = 645) HEPATITIS C ANTIBODY (BEAKER) Reactive Nonreactive A (test code = 367) HEPATITIS B SURFACE ANTIGEN (2) Nonreactive Nonreactive (BEAKER) (test code = 2585) Marine Consultant ID - HOUST[place] MVitamin [id number] 09:44:00 Test Item Value Reference Range Interpretation Comments Vitamin B12 (test code = 1494 pg/mL 213-816 H 2132-9) MADDIE (test code = MADDIE) Marine Consultant ID - [place]ST[place] M Lab Interpretation (test Abnormal code = 62171-0) [facility] CenterVITAMIN [id number] 09:44:00 Test Item Value Reference Range Interpretation Comments VITAMIN B12 (BEAKER) (test code = 1494 pg/mL 213-816 H 774) Marine Consultant ID - [place] MAlpha fetoprotein (AFP), tumor [id number] 08:27:00 Test Item Value Reference Range Interpretation Comments Alpha-Fetoprotein (test <2.0 <10.0 ng/mL code = 1834-1) MADDIE (test code = MADDIE) Marine Consultant ID - [place] M Lab Interpretation (test Normal code = 23857-9) [facility] CenterALPHA FETOPROTEIN (AFP), TUMOR [id number] 08:27:00 Test Item Value Reference Range Interpretation Comments ALPHA-FETOPROTEIN (BEAKER) (test code < ng/mL <10.0 = 1094) Marine Consultant ID - HOUST[place] MHepatitis A antibody, [id number] 07:42:00 Test Item Value Reference Range Interpretation Comments Hep A IgG (test code = Reactive Nonreactive A 67616-4) MADDIE (test code = MADDIE) Marine Consultant ID - [place] M Lab Interpretation (test Abnormal code = 28797-4) [facility] CenterHEPATITIS A ANTIBODY, [id number] 07:42:00 Test Item Value Reference Range Interpretation Comments HEPATITIS A IGG ANTIBODY (BEAKER) Reactive Nonreactive A (test code = 2797) Marine Consultant ID - [place] MCOMPREHENSIVE METABOLIC [id number] 07:41:00 Test Item Value Reference Range Interpretation Comments TOTAL PROTEIN 4.3 gm/dL 6.0-8.3 L (BEAKER) (test code = 770) ALBUMIN (BEAKER) 1.6 g/dL 3.5-5.0 L (test code = 1145) ALKALINE PHOSPHATASE 98 U/L 40-150 (BEAKER) (test code = 346) BILIRUBIN TOTAL 3.1 mg/dL 0.2-1.2 H (BEAKER) (test code = 377) SODIUM (BEAKER) (test 140 meq/L 136-145 code = 381) POTASSIUM (BEAKER) 3.1 meq/L 3.5-5.1 L (test code = 379) CHLORIDE (BEAKER) 105 meq/L 98-107 (test code = 382) CO2 (BEAKER) (test 31 meq/L 22-29 H code = 355) BLOOD UREA NITROGEN 12 mg/dL 7-21 (BEAKER) (test code = 354) CREATININE (BEAKER) 0.65 mg/dL 0.57-1.25 (test code = 358) GLUCOSE RANDOM 84 mg/dL 70-105 (BEAKER) (test code = 652) CALCIUM (BEAKER) 6.9 mg/dL 8.4-10.2 L (test code = 697) AST (SGOT) (BEAKER) 117 U/L 5-34 H (test code = 353) ALT (SGPT) (BEAKER) 57 U/L 6-55 H (test code = 347) EGFR (BEAKER) (test 96 mL/min/1.73 ESTIMA HARRIETT GFR IS code = 1092) sq m NOT ACCURATE CREATININE CLEARANCE IN PREDICTING GLOMERULAR FILTRATION RATE . ESTIMATED GFR I S NOT APPLICABLE FOR DIALYSIS PATIEN TS. Marine Consultant ID - [place] MSpecimen slightly [id number] 07:11:00 Test Item Value Reference Range Interpretation Comments Magnesium (test code = 1.8 mg/dL 1.6-2.6 93041-1) MADDIE (test code = MADDIE) Marine Consultant ID - [place] M Lab Interpretation (test Normal code = 15992-8) [facility] CenterMAGNESIUM2021-01-07 07:11:00 Test Item Value Reference Range Interpretation Comments MAGNESIUM (BEAKER) (test code = 1.8 mg/dL 1.6-2.6 627) Marine Consultant ID Bridger CONRAD MHepatitis B core antibody, [id number] 07:01:00 Test Item Value Reference Range Interpretation Comments Hep B Core Total Ab Nonreactive Nonreactive (test code = 33638-5) MADDIE (test code = MADDIE) Marine Consultant RIGOBERTO - [place]ST[place] M Lab Interpretation (test Normal code = 59147-9) [facility] CenterHEPATITIS B CORE ANTIBODY, [id number] 07:01:00 Test Item Value Reference Range Interpretation Comments HEPATITIS B CORE TOTAL ANTIBODY Nonreactive Nonreactive (BEAKER) (test code = 497) Marine Consultant RIGOBERTO Mederos, TIBC, % sat. (without ferritin)2020-10-23 06:37:00 Test Item Value Reference Range Interpretation Comments Iron (test code = 2498-4) 129.0 ug/dL 40-160 TIBC (test code = 2500-7) 178 ug/dL 250-450 L Iron % Saturation (test 72 % 20-55 H code = 2502-3) MADDIE (test code = MADDIE) Marine Consultant ID - [place] M Lab Interpretation (test Abnormal code = 87964-4) [facility] CenterIRON, TIBC, % SAT. (WITHOUT FERRITIN)2020-10-23 06:37:00 Test Item Value Reference Range Interpretation Comments IRON (BEAKER) (test code = 547) 129.0 ug/dL 40.0-160.0 TOTAL IRON BINDING CAPACITY 178 ug/dL 250-450 L (BEAKER) (test code = 769) IRON % SATURATION (2) (BEAKER) 72 % 20-55 H (test code = 2590) Marine Consultant ID - [place] [id number]-3-[id number] 06:36:00 Test Item Value Reference Range Interpretation Comments A-1 Antitrypsin (test code 102.40 mg/dL 90-200 = 1825-9) MADDIE (test code = MADDIE) Marine Consultant ID - [place] M Lab Interpretation (test Normal code = 85836-8) [facility] CenterALPHA-1-[id number] 06:36:00 Test Item Value Reference Range Interpretation Comments ALPHA-1 ANTITRYPSIN (BEAKER) 102.40 mg/dL 90.00-200.00 (test code = 502) Marine Consultant ID - [place] MPROTHROMBIN TIME/[id number] 06:21:00 Test Item Value Reference Range Interpretation Comments PROTIME (BEAKER) (test code = 18.9 seconds 11.9-14.2 H 759) INR (BEAKER) (test code = 370) 1.63 <=5.90 Effective 03/14/2019: PT Reference Range ChangeNew: 11.9-14.2 Previous: 11.7- 14.7RECOMMENDED COUMADIN/WARFARIN INR THERAPY RANGESSTANDARD DOSE: 2.0-3.0 Includes: PROPHYLAXIS for venous thrombosis, systemic embolization; TREATMENT for venous thrombosis and/or pulmonary embolus.HIGH RISK: Target INR is2.5-3.5 for patients wiht mechanical heart valves.Reticulocyte [id number] 05:50:00 Test Item Value Reference Range Interpretation Comments % Retic (test code = 4.6 % 0.5-1.7 H 51901-8) MADDIE (test code = MADDIE) Marine Consultant ID - 6000 Lab Interpretation (test Abnormal code = 81280-0) [facility] CenterRETICULOCYTE [id number] 05:50:00 Test Item Value Reference Range Interpretation Comments RETICULOCYTE COUNT PCT (BEAKER) (test 4.6 % 0.5-1.7 H code = 575) Marine Consultant ID - 6000Hemoglobin and [id number] 05:49:00 Test Item Value Reference Range Interpretation Comments Hemoglobin (test code = 786-4) 9.0 11.2- 15.7 GM/DL L Hematocrit (test code = 4544-3) 30.0 % 34.1-44.9 L Lab Interpretation (test code = Abnormal 59274-8) [facility] W/PLT COUNT & AUTO [id number] 05:49:00 Test Item Value Reference Range Interpretation Comments WHITE BLOOD CELL COUNT (BEAKER) 3.6 K/ L 3.5-10.5 (test code = 775) RED BLOOD CELL COUNT (BEAKER) 3.20 M/ L 3.93-5.22 L (test code = 761) HEMOGLOBIN (BEAKER) (test code = 9.0 GM/DL 11.2-15.7 L 410) HEMATOCRIT (BEAKER) (test code = 30.0 % 34.1-44.9 L 411) MEAN CORPUSCULAR VOLUME (BEAKER) 93.8 fL 79.4-94.8 (test code = 753) MEAN CORPUSCULAR HEMOGLOBIN 28.1 pg 25.6-32.2 (BEAKER) (test code = 751) MEAN CORPUSCULAR HEMOGLOBIN CONC 30.0 GM/DL 32.2-35.5 L (BEAKER) (test code = 752) RED CELL DISTRIBUTION WIDTH 18.7 % 11.7-14.4 H (BEAKER) (test code = 412) PLATELET COUNT (BEAKER) (test code 49 K/CU MM 150-450 L = 756) MEAN PLATELET VOLUME (BEAKER) 12.0 fL 9.4-12.3 (test code = 754) NUCLEATED RED BLOOD CELLS (BEAKER) 0 /100 WBC 0-0 (test code = 413) NEUTROPHILS RELATIVE PERCENT 48 % (BEAKER) (test code = 429) LYMPHOCYTES RELATIVE PERCENT 37 % (BEAKER) (test code = 430) MONOCYTES RELATIVE PERCENT 9 % (BEAKER) (test code = 431) EOSINOPHILS RELATIVE PERCENT 4 % (BEAKER) (test code = 432) BASOPHILS RELATIVE PERCENT 1 % (BEAKER) (test code = 437) NEUTROPHILS ABSOLUTE COUNT 1.75 K/ L 1.56-6.13 (BEAKER) (test code = 670) LYMPHOCYTES ABSOLUTE COUNT 1.34 K/ L 1.18-3.74 (BEAKER) (test code = 414) MONOCYTES ABSOLUTE COUNT (BEAKER) 0.34 K/ L 0.24-0.36 (test code = 415) EOSINOPHILS ABSOLUTE COUNT 0.15 K/ L 0.04-0.36 (BEAKER) (test code = 416) BASOPHILS ABSOLUTE COUNT (BEAKER) 0.04 K/ L 0.01-0.08 (test code = 417) IMMATURE GRANULOCYTES-RELATIVE 0 % 0-1 PERCENT (BEAKER) (test code = 2801) HEMOGLOBIN AND [id number] 05:49:00 Test Item Value Reference Range Interpretation Comments HEMOGLOBIN (BEAKER) (test code = 9.0 GM/DL 11.2-15.7 L 410) HEMATOCRIT (BEAKER) (test code = 30.0 % 34.1-44.9 L 411) U/S, ABDOMINAL, WITH [id number] 21:58:00Reason for exam:->ascites, [facility] : 1970 Sex: FFINAL REPORT Ultrasound of the Abdomen, with Doppler Clinical Histor y: ascites, cirrhosis Comparison: None. Technique: Sonographic evaluation of the abdomen was performed with Doppler. Findings: Liver: 9.6 cm in length at the right midclavicular line. Cirrhotic morphology. No lesion is identified by ultrasound. Main portal vein diameter 0.7 cm. Main portal veinis patent and demonstrates hepatopetal flow. Biliary tree: Common duct 3 mm. No intrahepatic biliary ductal dilatation. Gallbladder: Surgically absent. Pancreas: Partially obscured by bowel gas but the visualized portions are grossly unremarkable. Ascites: Small abdominal ascites. Spleen: 15.3 cm in length. Perisplenic varices are noted in keeping with portal hypertension. Kidneys: Right kidney 11.5 x 5.7 x 5.8 cm with cortical thickness of 1.5 cm. Left kidney 11.9 x 4.7 x 5.1 cm with cortical thickness of 1.4 cm. Normal cortical echogenicity. No shadowing calculus, no hydronephrosis. IVC/Aorta: Visualized segments are unremarkable. Unremarkable. Color and spectral Doppler evaluation of the hepatic vasculature: The main portal vein and branches are patent and demonstrate hepatopetal flow. The peak systolic velocity in the main portal vein is 21.1 cm/s. The proper, right and left hepatic arteries are patent with normal waveforms. The resistive indices in the proper, right and left hepatic arteries are 0.5, 0.7 and 0.5 respectively. The hepatic confluence, main hepatic vein and branches are patent with normal waveforms. The splenic vein at the pancreatic head and tail are patent with normal waveforms. The splenic artery and vein at the hilum are patent with normal waveforms. Impression: Cirrhosis and evidence of portal hypertension.Patent main portal vein.Small abdominal ascites.Signed: Mila Richardson MDReport Verified Date/Time: 10/22/2020 21:58:54 US abdominal with [id number] 21:58:00Interface, External Ris In - 10/23/2020 2:18 AM CSTFINAL REPORT Ultrasound of the Abdomen, with Doppler Clinical History: ascites, cirrhosis Comparison: None. Technique: Sonographic evaluation of the abdomen was performed with Doppler. Findings: Liver: 9.6 cm in length at the right midclavicular line. Cirrhotic morphology. No lesion is identified by ultrasound. Main portal vein diameter 0.7 cm. Main portal vein is patent and demonstrates hepatopetal flow. Biliary tree: Common duct 3 mm. No intrahepatic biliary ductal dilatation. Gallbladder: Surgically absent. Pancreas: Partially obscured by bowel gas but the visualized portions are grossly unremarkable. Ascites: Small abdominal ascites. Spleen: 15.3 cm in length. Perisplenic varices are noted in keeping withportal hypertension. Kidneys: Right kidney 11.5 x 5.7 x 5.8 cm with cortical thickness of 1.5 cm.Left kidney 11.9 x 4.7 x 5.1 cm with cortical thickness of 1.4 cm. Normal cortical echogenicity. No shadowing calculus, no hydronephrosis. IVC/Aorta: Visualized segments are unremarkable. Unremarkable. Color and spectral Doppler evaluation of the hepatic vasculature: The main portal vein and branches are patent and demonstrate hepatopetal flow. The peak systolic velocity in the main portal vein is 21.1 cm/s. The proper, right and left hepatic arteries are patent with normal waveforms. The resistive indices in the proper, right and left hepatic arteries are 0.5, 0.7 and 0.5 respectively. The hepatic confluence, main hepatic vein and branches are patent with normal waveforms. The splenic vein atthe pancreatic head and tail are patent with normal waveforms. The splenic artery and vein at the hilum are patent with normal waveforms. Impression: Cirrhosis and evidence of portal hypertension.Patent main portal vein.Small abdominal ascites. Signed: Mila Richardson MDReport Verified Date/Time: 10/22/2020 21:58:54 [facility]2020-10-22 20:15:00 Test Item Value Reference Range Interpretation Comments SARS-COV2/RT-PCR Negative Not Detected, (test code = Negative, See 30048-4) external report for linked test SARS-COV-2 [facility] PERFORMING LAB (test code = 61569-1) MADDIE (test code = Negative result for this MADDIE) test determines that SARS-CoV-2 RNA was not present in the [...] of the Act. Fact Sheet for Healthcare Providers:https://www.[employer]/sites/default/f christina/product/documents/F act_Sheet_HC_Providers_L rfz_OBRB-DpM-5.pdf Fact Sheet for Healthcare Patients:https://www.[employer]/sites/default/fi les/product/documents/Fa ct_Sheet_Patients_Lyra_S ARS-CoV-2.pdf Performing Laboratory:[facility], [place] [address] [place], [place] [address]ARS-COV2/RT-PCR ([facility])2020-10-22 20:15:00 Test Item Value Reference Range Interpretation Comments SARS-COV2/RT-PCR (test Negative Not Detected, Negative, code = 7438381) See external report for linked test SARS-COV-2 PERFORMING LAB [facility] (test code = 2524049) Negative result for this test determines that SARS-CoV-2 RNA was not present in the specimen above the Limit of Detection (LOD). However, Negative results do not preclude SARS-CoV-2 infection and should not be used as the sole basis for treatment or patient management decisions. Negative results mustbe combined with clinical observations, patient history, and epidemiological information. A false negative result may occur if a specimen is improperly collected, transported or handled. A false negative result should be considered if patient's recent exposures or clinical presentation indicate that COVID-19 (SARS-CoV-2) is likely and diagnostic tests for other causes of illness are negative. Re-testing should be considered in cases of suspected false negatives.The limit of detection for this assay is 800 copies/mL.This SARS CoV-2 test is a real-time RT-PCR test intended for the qualitative detection of nucleic acid from SARS-CoV-2 in a nasopharyngeal swab specimen collected from individuals susp ected of COVID-19 by their healthcare provider.This test has not been Food and Drug [...] is revoked under Section 564(g) of the Act.Fact Sheet for Healthcare Providers:https://www.[employer].com/sites/default/files/product/documents/Fact_Shee d_FI_Ddrpdmsls_Ezve_VYKK-LvS-5.pdfFact Sheet for Healthcare Patients:https://www.[employer].com/sites/default/files/product/ documents/Vsmy_Mtlju_Raqknnsn_Djxf_LZBH-BqZ-9.pdfPerforming Laboratory:[facility] [place] [address].[place], [place] [address]Luzkqngvcc w/Microscopic + Reflex to [id number] 17:46:00 Test Item Value Reference Range Interpretation Comments Color, UA (test code = Yellow 5778-6) Clarity, UA (test code = Hazy 5767-9) Specific [place], UA (test 1.024 1.001-1.035 code = 5811-5) pH, UA (test code = 5.5 5.0-8.0 5803-2) Protein, UA (test code = 20 mg/dL Negative A 59414-0) Glucose, UA (test code = Negative Negative 365) Ketones, UA (test code = Negative Negative 2514-8) Bilirubin, UA (test code = Negative Negative 33135-1) Blood, UA (test code = Small Negative A 18950-7) Nitrite, UA (test code = Negative Negative 5802-4) Leukocytes, UA (test code Negative Negative = 5799-2) Urobilinogen, UA (test 0.2 mg/dL 0.2-1 code = 40752-5) RBC, UA (test code = 1 /HPF 30522-4) WBC, UA (test code = 4 /HPF 5821-4) Mucus (test code = 8247-9) Rare Squam Epithel, UA (test 9 /HPF code = 35900-2) Specimen Source (test code = 2795) MADDIE (test code = MADDIE) Marine Consultant ID - tech Lab Interpretation (test Abnormal code = 79734-9) [facility] CenterURIN[facility]IS W/ REFLEX URINE [id number] 17:46:00 Test Item Value Reference Range Interpretation Comments COLOR (BEAKER) (test code = 470) Yellow CLARITY (BEAKER) (test code = 469) Hazy SPECIFIC GRAVITY UA (BEAKER) (test 1.024 1.001-1.035 code = 468) PH UA (BEAKER) (test code = 467) 5.5 5.0-8.0 PROTEIN UA (BEAKER) (test code = 20 mg/dL Negative A 464) GLUCOSE UA (BEAKER) (test code = Negative Negative 365) KETONES UA (BEAKER) (test code = Negative Negative 371) BILIRUBIN UA (BEAKER) (test code = Negative Negative 462) BLOOD UA (BEAKER) (test code = 461) Small Negative A NITRITE UA (BEAKER) (test code = Negative Negative 465) LEUKOCYTE ESTERASE UA (BEAKER) Negative Negative (test code = 466) UROBILINOGEN UA (BEAKER) (test code 0.2 mg/dL 0.2-1.0 = 463) RBC UA (BEAKER) (test code = 519) 1 /HPF WBC UA (BEAKER) (test code = 520) 4 /HPF MUCUS (BEAKER) (test code = 1574) Rare SQUAMOUS EPITHELIAL (BEAKER) (test 9 /HPF code = 516) SOURCE(BEAKER) (test code = 2795) Marine Consultant ID - techRAD, CHEST, 1 VIEW, NON [id number] 15:35:00Reason for exam:->abd painShould this be performed at the bedside?->Yes [facility] 1970 Sex: FFINAL REPORT CHEST AP PORTABLE History provided: Abdominal pain Heart size magnified by projection. Lungs grossly clear and vascularity normal. Signed: Francisco Javier Garcia Verified Date/Time: 10/22/2020 15:35:51 Reading Location: [facility] Radiology Reading Room XR chest 1 view portable / [id number] 15:35:00Interface, External Ris In - 10/22/2020 3:38 PM CSTFINAL REPORT CHEST AP PORTABLE History provided: Abdominal pain Heart size magnified by projection. Lungs grossly clear and vascularity normal. Signed: Francisco Javier Garcia Verified Date/Time: 10/22/2020 15:35:51 Reading Location: [facility] Radiology Reading Room [facility]2020-10-22 14:52:00 Test Item Value Reference Range Interpretation Comments Troponin I (test code = 0.01 ng/mL 0-0.03 43857-5) MADDIE (test code = MADDIE) Troponin I (TnI) levels must be interpreted in the context of the presenting symptoms and the clinical findings. Elevated TnI levels indicate myocardial damage, but are not specific for ischemic heart disease. Elevated TnI levels are seen in patients with other cardiac conditions (including myocarditis and congestive heart failure), and slight TnI elevations occur in patients with other conditions, including sepsis, renal failure, acidosis, acute neurological disease, and persistent tachyarrhythmia.Opera tor ID - ADMIN Lab Interpretation (test Normal code = 48899-2) [facility]TR[facility]EMIDJ[facility] [id number] 14:52:00 Test Item Value Reference Range Interpretation Comments TROPONIN I (BEAKER) (test code = 0.01 ng/mL 0.00-0.03 397) Troponin I (TnI) levels must be interpreted in the context of the presenting symptoms and the clinical findings. Elevated TnI levels indicate myocardial damage, but are not specific for ischemic heart disease. Elevated TnI levels are seen in patients with other cardiac conditions (including myocarditis and congestive heart failure), and slight TnI elevations occur in patients with other conditions, including sepsis, renal failure, acidosis, acute neurological disease, and persistent tachyarrhythmia.Marine Consultant ID - ADMINBasic metabolic panel (Na, K+, Cl, CO2, Glu, Ca, BUN, Cr)2020-10-22 14:48:00 Test Item Value Reference Range Interpretation Comments Sodium (test code = 141 meq/L 580-838 1664-2) Potassium (test code 3.1 meq/L 3.5-5.1 L = 2823-3) Chloride (test code 107 meq/L 98-107 = 2075-0) CO2 (test code = 30 meq/L 22-29 H 2027-9) BUN (test code = 12 mg/dL 7-21 3094-0) Creatinine (test 0.65 mg/dL 0.57-1.25 code = 2160-0) Glucose (test code = 90 mg/dL 70-105 2345-7) Calcium (test code = 7.0 mg/dL 8.4-10.2 L 95952-4) EGFR (test code = 96 mL/min/1.73 [place] [address]-5) m NOT ACCURATE CREATININE CLEARANCE IN PREDICTING GLOMERULAR FILTRATION RATE . ESTIMATED GFR I S NOT APPLICABLE FOR DIALYSIS PATIENTS. MADDIE (test code = Marine Consultant ID - MADDIE) ADMINSpecimen slightly icteric Lab Interpretation Abnormal (test code = 51403-9) [facility] CenterLiver [id number] 14:48:00 Test Item Value Reference Range Interpretation Comments Protein, Total (test 4.6 6.0- 8.3 gm/dL L code = 2885-2) Albumin (test code = 1.7 g/dL 3.5-5 L 62886-1) Total Bilirubin (test 3.5 mg/dL 0.2-1.2 H code = 1974-2) Bilirubin, Direct (test 1.7 mg/dL 0.1-0.5 H code = 1967-7) Alkaline Phosphatase 106 U/L 40-150 (test code = 6768-6) AST (test code = 132 U/L 5-34 H 1920-8) ALT (test code = 61 U/L 6-55 H 1742-6) MADDIE (test code = MADDIE) Marine Consultant ID - ADMINSpecimen slightly icteric Lab Interpretation Abnormal (test code = 57267-0) [facility] CenterBASIC METABOLIC [id number] 14:48:00 Test Item Value Reference Range Interpretation Comments SODIUM (BEAKER) 141 meq/L 136-145 (test code = 381) POTASSIUM (BEAKER) 3.1 meq/L 3.5-5.1 L (test code = 379) CHLORIDE (BEAKER) 107 meq/L 98-107 (test code = 382) CO2 (BEAKER) (test 30 meq/L 22-29 H code = 355) BLOOD UREA NITROGEN 12 mg/dL 7-21 (BEAKER) (test code = 354) CREATININE (BEAKER) 0.65 mg/dL 0.57-1.25 (test code = 358) GLUCOSE RANDOM 90 mg/dL 70-105 (BEAKER) (test code = 652) CALCIUM (BEAKER) 7.0 mg/dL 8.4-10.2 L (test code = 697) EGFR (BEAKER) (test 96 mL/min/1.73 ESTIMA HARRIETT GFR IS code = 1092) sq m NOT ACCURATE CREATININE CLEARANCE IN PREDICTING GLOMERULAR FILTRATION RATE . ESTIMATED GFR I S NOT APPLICABLE FOR DIALYSIS PATIEN TS. Marine Consultant ID - ADMINSpecimen slightly ictericHEPATIC FUNCTION [id number] 14:48:00 Test Item Value Reference Range Interpretation Comments TOTAL PROTEIN (BEAKER) (test code = 4.6 gm/dL 6.0-8.3 L 770) ALBUMIN (BEAKER) (test code = 1145) 1.7 g/dL 3.5-5.0 L BILIRUBIN TOTAL (BEAKER) (test code 3.5 mg/dL 0.2-1.2 H = 377) BILIRUBIN DIRECT (BEAKER) (test 1.7 mg/dL 0.1-0.5 H code = 706) ALKALINE PHOSPHATASE (BEAKER) (test 106 U/L 40-150 code = 346) AST (SGOT) (BEAKER) (test code = 132 U/L 5-34 H 353) ALT (SGPT) (BEAKER) (test code = 61 U/L 6-55 H 347) Marine Consultant ID - ADMINSpecimen slightly ictericCBC W/PLT COUNT & AUTO [id number] 14:28:00 Test Item Value Reference Range Interpretation Comments WHITE BLOOD CELL COUNT (BEAKER) 4.4 K/ L 3.5-10.5 (test code = 775) RED BLOOD CELL COUNT (BEAKER) 3.46 M/ L 3.93-5.22 L (test code = 761) HEMOGLOBIN (BEAKER) (test code = 9.7 GM/DL 11.2-15.7 L 410) HEMATOCRIT (BEAKER) (test code = 32.0 % 34.1-44.9 L 411) MEAN CORPUSCULAR VOLUME (BEAKER) 92.5 fL 79.4-94.8 (test code = 753) MEAN CORPUSCULAR HEMOGLOBIN 28.0 pg 25.6-32.2 (BEAKER) (test code = 751) MEAN CORPUSCULAR HEMOGLOBIN CONC 30.3 GM/DL 32.2-35.5 L (BEAKER) (test code = 752) RED CELL DISTRIBUTION WIDTH 19.1 % 11.7-14.4 H (BEAKER) (test code = 412) PLATELET COUNT (BEAKER) (test code 50 K/CU MM 150-450 L = 756) MEAN PLATELET VOLUME (BEAKER) 12.7 fL 9.4-12.3 H (test code = 754) NUCLEATED RED BLOOD CELLS (BEAKER) 0 /100 WBC 0-0 (test code = 413) NEUTROPHILS RELATIVE PERCENT 47 % (BEAKER) (test code = 429) LYMPHOCYTES RELATIVE PERCENT 38 % (BEAKER) (test code = 430) MONOCYTES RELATIVE PERCENT 10 % (BEAKER) (test code = 431) EOSINOPHILS RELATIVE PERCENT 3 % (BEAKER) (test code = 432) BASOPHILS RELATIVE PERCENT 1 % (BEAKER) (test code = 437) NEUTROPHILS ABSOLUTE COUNT 2.06 K/ L 1.56-6.13 (BEAKER) (test code = 670) LYMPHOCYTES ABSOLUTE COUNT 1.65 K/ L 1.18-3.74 (BEAKER) (test code = 414) MONOCYTES ABSOLUTE COUNT (BEAKER) 0.45 K/ L 0.24-0.36 H (test code = 415) EOSINOPHILS ABSOLUTE COUNT 0.15 K/ L 0.04-0.36 (BEAKER) (test code = 416) BASOPHILS ABSOLUTE COUNT (BEAKER) 0.06 K/ L 0.01-0.08 (test code = 417) IMMATURE GRANULOCYTES-RELATIVE 1 % 0-1 PERCENT (BEAKER) (test code = 2801)
[2020-11-01 20:32] LABS: Basophils % 0.4 % (0-1.3); Hematocrit 32.2 % (36.0-45.0); Lymphocytes % 27.7 % (15.3-44.8); MPV 9.5 fL (7.6-11.3); RBC Red Blood Cell Count 3.65 M/uL (3.86-4.86)
[2020-11-01] MEDS ORDERED: LORazepam 2 MG/ML VIAL ONE (20:34)
[2020-11-01] MEDS ORDERED: NA CHLORIDE 0.9% 500 ML ONE (20:35)
[2020-11-01 20:36] LABS: Protime INR 1.29
[2020-11-01 21:04] LABS: Albumin 1.7 g/dL (3.4-5.0); Bilirubin Direct 1.9 mg/dL (0-0.2); Bilirubin Total 3.6 mg/dL (0.2-1.0); CKMB Creatine Kinase MB 4.7 ng/mL (0.3-3.6); Protein, Total 5.6 g/dL (6.4-8.2); Troponin (Emerg Dept Use Only) 0.02 ng/mL (0.0-0.045)
[2020-11-01 21:09] LABS: Blood Morphology Comment NOTED (NOT SEEN); Platelet Estimate DECR; Polychromasia 2+; Potassium 2.9 mmol/L (3.5-5.1); White Blood Cell Scan OK (OK)
[2020-11-01] MEDS ORDERED: LACTULOSE 20 GM/30 ML UCUP ONE (21:18)
--- NOTE | 2020-11-01 21:20 | RAD REPORT ---
EXAM DESCRIPTION: RAD - Chest Single View - 11/01/2020 9:14 pm CLINICAL HISTORY: ams Chest pain. COMPARISON: Chest Single View dated 10/22/2020; Chest Single View dated 06/23/2020 FINDINGS: Portable technique limits examination quality. The lungs are grossly clear. The heart is normal in size. No displaced fractures. IMPRESSION: No acute intrathoracic process suspected.
[2020-11-01] MEDS ORDERED: ONDANSETRON 4 MG/2 ML VIAL IV PRN (21:40)
--- NOTE | 2020-11-01 21:41 | ER ---
Nurse's Notes [facility] Name: Lorena Hansen Age: 50 yrs Sex: Female : 1970 Arrival Date: 11/01/2020 Time: 20:01 Bed 3 Private MD: Diagnosis: Hepatic Encephalopathy Presentation: 11/01 20:10 Chief complaint: EMS states: according to boyfriend altered mental status, unable to rr5 answer question, combative, started 3 hours ago. history of liver infection and history of ammonia level high. 20:10 Coronavirus screen: At this time, unable to obtain information related to travel rr5 outside the [place] confused. Ebola Screen: Unable to complete the Ebola screening because:. Initial Sepsis Screen: Does the patient meet any 2 criteria? HR > 90 bpm. Does the patient have a suspected source of infection? Yes: Acute abdominal pain If YES to both, name of provider notified: Parth Parra MD. Risk Assessment: Do you want to hurt yourself or someone else? Unable to obtain. Onset of symptoms was November 01, 2020. 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 - Social history:: Smoking status: unknown. Screenin:37 Abuse screen: Denies threats or abuse. Denies injuries from another. Nutritional rr5 screening: No deficits noted. Tuberculosis screening: No symptoms or risk factors identified. Fall Risk Secondary diagnosis (15 points) altered mental status. IV access (20 points). Mental Status- Overestimates/Forgets Limitations (15 pts.). Total Carr Fall Scale indicates High Risk Score (45 or more points). Fall prevention measures have been instituted. Side Rails Up X 2 Placed Close to Nursing Station Frequent Obs/Assessments Occuring As available patient and family educated on Fall Prevention Program and Strategies. Assessment: 20:10 General: Appears uncomfortable, Behavior is combative, uncooperative. Pain: Unable to rr5 use pain scale. Patient appears confused. Neuro: Level of Consciousness is confused, lethargic, Oriented to none. Cardiovascular: Capillary refill < 3 seconds Patient's skin is warm and dry. Respiratory: Airway is patent Respiratory effort is even, unlabored, Respiratory pattern is regular, symmetrical. GI: Abdomen is round distended, Abdomen is tender to palpation EMS stated with history of liver infection and increased ammonia. 20:10 : No signs and/or symptoms were reported regarding the genitourinary system. EENT: No rr5 signs and/or symptoms were reported regarding the EENT system. Derm: Skin is intact, is healthy with good turgor, Skin temperature is warm. Musculoskeletal: Capillary refill < 3 seconds. 20:25 Reassessment: patient is more alert and oriented, able to answer questions cooperative. rr5 she stated " I am off to my medication for 4 days now.". 21:05 Reassessment: [id number]. mg2 21:09 Reassessment: critical lab result- k-2.9 and lactate-4.3. mg2 21:15 Reassessment: Patient appears in no apparent distress at this time. rr5 21:56 Reassessment: Patient appears in no apparent distress at this time. resting eyes closed rr5 breathing spontaneously at room air, maintaining O2 sat 96% and above. 23:00 Reassessment: Patient appears in no apparent distress at this time. No changes from rr5 previously documented assessment. 11/02 00:10 Reassessment: Patient appears in no apparent distress at this time. on left side lying rr5 position. 01:23 Reassessment: Patient appears in no apparent distress at this time. patient asleep. mg2 seen by hospitalist. 02:35 Reassessment: Patient appears in no apparent distress at this time. respond to verbal rr5 stimuli, obeys command, vital signs taken and recorded. transfer to room 201. Vital Signs: 11/01 20:10 BP 181 / 112; Pulse 130; Resp 24; Temp 98; Pulse Ox 100% ; rr5 20:37 BP 168 / 96; Pulse 116; Resp 20; Pulse Ox 99% ; rr5 20:45 Weight 72.57 kg; rr5 21:49 BP 143 / 89; Pulse 106; Resp 18; Pulse Ox 97% on R/A; mg2 23:30 BP 136 / 89; Pulse 112; Resp 20; Pulse Ox 99% ; rr5 11/02 00:20 BP 126 / 85; Pulse 110; Resp 15; Pulse Ox 98% on R/A; rr5 01:23 BP 132 / 79; Pulse 106; Resp 18; Pulse Ox 97% on R/A; mg2 02:34 BP 130 / 86; Pulse 104; Resp 19; Temp 98.4; Pulse Ox 99% ; rr5 01:23 patient asleep mg2 ED Course: 11/01 20:01 Patient arrived in ED. mw2 20:07 Parth Parra MD is Attending Physician. mh7 20:09 Romel Ortiz, DAYNA is Primary Nurse. rr5 20:10 Inserted saline lock: 20 gauge in left forearm, using aseptic technique. Blood rr5 collected. 20:16 Triage completed. rr5 20:17 Arm band placed on right wrist. rr5 20:20 Patient has correct armband on for positive identification. Placed in gown. Bed in low rr5 position. Call light in reach. Side rails up X2. case monitor on. Pulse ox on. NIBP on. 20:20 Warm blanket given. rr5 20:36 EKG done, by ED staff, reviewed by Parth Parra MD. rr5 20:43 X-ray(s) taken. rr5 21:15 Chest Single View XRAY In Process Unspecified. EDMS 21:40 Ed Chu MD is Hospitalizing Provider. mh7 22:06 COVID swab sent to lab. rr5 11/02 02:33 No provider procedures requiring assistance completed. Patient admitted, IV remains in rr5 place. intact, No redness/swelling at site. Administered Medications: 11/01 20:12 Drug: NS 0.9% 500 ml Route: IV; Rate: bolus; Site: left forearm; rr5 21:30 Follow up: Response: No adverse reaction; IV Status: Completed infusion; IV Intake: rr5 500ml 21:48 Follow up: Response: No adverse reaction; IV Status: Completed infusion; IV Intake: mg2 500ml 20:15 Drug: Ativan 1 mg Route: IVP; Site: left forearm; rr5 21:49 Follow up: Response: No adverse reaction mg2 20:35 Not Given (Other Intervention Used): NS 0.9% (30 ml/kg) 30 ml/kg IV at bolus once; rr5 Sepsis Protocol 21:45 Drug: Potassium Chloride 20 mEq Route: IV; Rate: per protocol; Site: left forearm; rr5 23:35 Follow up: Response: No adverse reaction; IV Status: Completed infusion; IV Intake: rr5 100ml 22:08 Drug: NS 0.9% 500 ml Route: IV; Rate: bolus; Site: left forearm; rr5 23:34 Follow up: Response: No adverse reaction; IV Status: Completed infusion; IV Intake: rr5 500ml Intake: 21:30 IV: 500ml; Total: 500ml. rr5 21:48 IV: 500ml; Total: 1000ml. mg2 23:34 IV: 500ml; Total: 1500ml. rr5 23:35 IV: 100ml; Total: 1600ml. rr5 Outcome: 21:41 Decision to Hospitalize by Provider. mh7 11/02 02:33 Admitted to Med/surg accompanied by tech, room 201, with chart, Report called to DAMIEN rr5 Condition: stable Instructed on the need for admit. 02:38 Patient left the ED. rr5 Signatures: Dispatcher [employer] EDMS Sophia Gaspar RN RN lp1 Jade Alejandro mw2 Jordi Peterson RN RN mg2 Romel Ortiz RN RN rr5 Parth Parra MD MD 7
--- NOTE | 2020-11-01 21:41 | EDPHYS ---
Physician Documentation [facility] Name: Lorena Hansen Age: 50 yrs Sex: Female : 1970 Arrival Date: 11/01/2020 Time: 20:01 Bed 3 Private MD: ED Physician Parth Parra HPI: 11/01 20:30 This 50 yrs old Female presents to ER via EMS with complaints of Altered mh7 Mental Status. 20:30 The patient presents with agitation, confusion, decreased mental status. Onset: The mh7 symptoms/episode began/occurred today. Possible causes: elevated ammonia level. Associated signs and symptoms: Pertinent positives: agitation, combativeness, Pertinent negatives: abdominal pain, ataxia, blurred vision, chest pain, diaphoresis, diarrhea, dizziness, headache, lightheadedness, nausea, numbness, palpitations, seizure, shortness of breath, tingling, vertigo, vomiting, weakness. Current symptoms: In the emergency department the patient's symptoms have improved, markedly, is less confused. The patient has experienced similar episodes in the past, multiple times. 20:30 Patient states that she ran out of her medication a few days ago.. 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 - Social history:: Smoking status: unknown. ROS: 20:30 Constitutional: Negative for fever, chills, and weight loss, Eyes: Negative for injury, mh7 pain, redness, and discharge, ENT: Negative for injury, pain, and discharge, Neck: Negative for injury, pain, and swelling, Cardiovascular: Negative for chest pain, palpitations, and edema, Respiratory: Negative for shortness of breath, cough, wheezing, and pleuritic chest pain, Abdomen/GI: Negative for abdominal pain, nausea, vomiting, diarrhea, and constipation, Back: Negative for injury and pain, : Negative for injury, bleeding, discharge, and swelling, MS/Extremity: Negative for injury and deformity, Skin: Negative for injury, rash, and discoloration, Neuro: Negative for headache, weakness, numbness, tingling, and seizure, Psych: Negative for depression, anxiety, suicide ideation, homicidal ideation, and hallucinations, Allergy/Immunology: Negative for hives, rash, and allergies, Endocrine: Negative for neck swelling, polydipsia, polyuria, polyphagia, and marked weight changes, Hematologic/Lymphatic: Negative for swollen nodes, abnormal bleeding, and unusual bruising. Exam: 20:30 Head/Face: Normocephalic, atraumatic. Eyes: Pupils equal round and reactive to light, mh7 extra-ocular motions intact. Lids and lashes normal. Conjunctiva and sclera are non-icteric and not injected. Cornea within normal limits. Periorbital areas with no swelling, redness, or edema. Neck: Trachea midline, no thyromegaly or masses palpated, and no cervical lymphadenopathy. Supple, full range of motion without nuchal rigidity, or vertebral point tenderness. No Meningismus. Chest/axilla: Normal chest wall appearance and motion. Nontender with no deformity. No lesions are appreciated. 20:30 Respiratory: Lungs have equal breath sounds bilaterally, clear to auscultation and percussion. No rales, rhonchi or wheezes noted. No increased work of breathing, no retractions or nasal flaring. Abdomen/GI: Soft, non-tender, with normal bowel sounds. No distension or tympany. No guarding or rebound. No evidence of tenderness throughout. Back: No spinal tenderness. No costovertebral tenderness. Full range of motion. Skin: Warm, dry with normal turgor. Normal color with no rashes, no lesions, and no evidence of cellulitis. MS/ Extremity: Pulses equal, no cyanosis. Neurovascular intact. Full, normal range of motion. Neuro: Awake and alert, GCS 15, oriented to person, place, time, and situation. Cranial nerves II-XII grossly intact. Motor strength 5/5 in all extremities. Sensory grossly intact. Cerebellar exam normal. Normal gait. Psych: Awake, alert, with orientation to person, place and time. Behavior, mood, and affect are within normal limits. 20:30 Constitutional: The patient appears in no acute distress, alert, awake, anxious. 20:30 Cardiovascular: Rate: tachycardic, Rhythm: regular, Pulses: no pulse deficits are appreciated, Heart sounds: normal, normal S1and S2, Edema: pedal edema, that is mild, JVD: is not appreciated. Vital Signs: 20:10 BP 181 / 112; Pulse 130; Resp 24; Temp 98; Pulse Ox 100% ; rr5 20:37 BP 168 / 96; Pulse 116; Resp 20; Pulse Ox 99% ; rr5 20:45 Weight 72.57 kg; rr5 21:49 BP 143 / 89; Pulse 106; Resp 18; Pulse Ox 97% on R/A; mg2 23:30 BP 136 / 89; Pulse 112; Resp 20; Pulse Ox 99% ; rr5 01 00:20 BP 126 / 85; Pulse 110; Resp 15; Pulse Ox 98% on R/A; rr5 01:23 BP 132 / 79; Pulse 106; Resp 18; Pulse Ox 97% on R/A; mg2 02:34 BP 130 / 86; Pulse 104; Resp 19; Temp 98.4; Pulse Ox 99% ; rr5 01:23 patient asleep mg2 MDM: 11/01 21:39 Differential Diagnosis: electrolyte abnormality, alcohol intoxication, overdose, mh7 sepsis, UTI, volume depletion, Hepatic Encephalopathy. Data reviewed: vital signs, nurses notes, EMS record, old medical records, lab test result(s), cardiac enzymes, CBC, drug level(s), electrolytes, EKG, radiologic studies, plain films. Data interpreted: Pulse oximetry: on room air is 99 %. Interpretation: normal. Counseling: I had a detailed discussion with the patient and/or guardian regarding: the historical points, exam findings, and any diagnostic results supporting the discharge/admit diagnosis, the presence of at least one elevated blood pressure reading (>120/80) during this emergency department visit, lab results, radiology results, the need for further work-up and treatment in the hospital. Response to treatment: the patient's symptoms have markedly improved after treatment. 21:41 Patient medically screened. mh7 11/01 20:09 Order name: Amylase, Serum 11/01 20:09 Order name: Basic Metabolic Panel 11/01 20:09 Order name: Blood Culture Adult (2) 11/01 20:09 Order name: CBC with Diff 11/01 20:09 Order name: Ckmb 11/01 20:09 Order name: CPK 11/01 20:09 Order name: Lactate [facility] 11/01 20:09 Order name: LFT's [facility] 11/01 20:09 Order name: Lipase [facility] 11/01 20:09 Order name: Procalcitonin; Complete Time: 21:22 [facility] 11/01 20:09 Order name: Protime (+inr); Complete Time: 20:48 [facility] 11/01 20:09 Order name: Ptt, Activated; Complete Time: 20:48 [facility] 11/01 20:09 Order name: Troponin (emerg Dept Use Only); Complete Time: 21:22 [facility] 11/01 20:09 Order name: Urine Microscopic Only [facility] 11/01 20:09 Order name: AMMONIA; Complete Time: 20:48 [facility] 11/01 20:10 Order name: Amylase; Complete Time: 21:22 [facility] 11/01 20:10 Order name: Basic Metabolic Panel; Complete Time: 21:22 [facility] 11/01 20:10 Order name: Blood Culture [facility] 11/01 20:10 Order name: CBC with Automated Diff; Complete Time: 21:22 [facility] 11/01 20:10 Order name: CKMB Creatine Kinase MB; Complete Time: 21:22 [facility] 11/01 20:10 Order name: Creatine Phosphokinase; Complete Time: 21:22 [facility] 11/01 20:10 Order name: Lactate; Complete Time: 21:22 [facility] 11/01 20:10 Order name: Liver (Hepatic) Function; Complete Time: 21:22 [facility] 11/01 20:10 Order name: Lipase; Complete Time: 21:22 [facility] 11/01 20:35 Order name: CBC Smear Scan; Complete Time: 21:22 [facility] 11/01 20:54 Order name: Glucose, Ancillary Testing; Complete Time: 21:07 [facility] 11/01 21:48 Order name: COVID-19 mg2 11/01 22:52 Order name: CORONAVIRUS EDNY 11/02 00:07 Order name: Lactate Sepsis 2 HR Follow-up [facility] 11/02 01:05 Order name: SARS-COV-2 RT PCR [facility] 11/01 20:09 Order name: Chest Single View XRAY; Complete Time: 21:22 [facility] 11/01 20:09 Order name: Accucheck; Complete Time: 20:45 [facility] 11/01 20:09 Order name: Cardiac monitoring; Complete Time: 20:36 rr5 11/01 20:09 Order name: EKG - Nurse/Tech; Complete Time: 20:36 rr5 11/01 20:09 Order name: IV Saline Lock - Large Bore; Complete Time: 20:36 rr5 11/01 20:09 Order name: Labs collected and sent; Complete Time: 20:35 rr5 11/01 20:09 Order name: O2 Per Protocol; Complete Time: 20:35 rr5 11/01 20:09 Order name: O2 Sat Monitoring; Complete Time: 20:35 rr5 Administered Medications: 20:12 Drug: NS 0.9% 500 ml Route: IV; Rate: bolus; Site: left forearm; rr5 21:30 Follow up: Response: No adverse reaction; IV Status: Completed infusion; IV Intake: rr5 500ml 21:48 Follow up: Response: No adverse reaction; IV Status: Completed infusion; IV Intake: mg2 500ml 20:15 Drug: Ativan 1 mg Route: IVP; Site: left forearm; rr5 21:49 Follow up: Response: No adverse reaction mg2 20:35 Not Given (Other Intervention Used): NS 0.9% (30 ml/kg) 30 ml/kg IV at bolus once; rr5 Sepsis Protocol 21:45 Drug: Potassium Chloride 20 mEq Route: IV; Rate: per protocol; Site: left forearm; rr5 23:35 Follow up: Response: No adverse reaction; IV Status: Completed infusion; IV Intake: rr5 100ml 22:08 Drug: NS 0.9% 500 ml Route: IV; Rate: bolus; Site: left forearm; rr5 23:34 Follow up: Response: No adverse reaction; IV Status: Completed infusion; IV Intake: rr5 500ml Disposition: 11/01/20 21:41 Hospitalization ordered by Ed Chu for Inpatient Admission. Preliminary diagnosis is Hepatic Encephalopathy. - Bed requested for Telemetry/MedSurg (Inpatient). - Status is Inpatient Admission. rr5 - Condition is Stable. - Problem is an acute exacerbation. - Symptoms have improved. Signatures: Dispatcher [employer] EDMS Eliz Arreaga RN RN Sophia Gaspar RN RN lp1 Romel Ortiz RN RN rr5 Parth Parra MD MD [facility] Jordi Peterson RN mg2 Corrections: (The following items were deleted from the chart) 11/02 01:34 11/01 21:41 Hospitalization Ordered by Ed Chu MD for Inpatient Admission. mw Preliminary diagnosis is Hepatic Encephalopathy. Bed requested for Telemetry/MedSurg (Inpatient). Status is Inpatient Admission. Condition is Stable. Problem is an acute exacerbation. Symptoms have improved. mh7 11/02 02:38 01:34 11/01/2020 21:41 Hospitalization Ordered by Ed Chu MD for Inpatient rr5 Admission. Preliminary diagnosis is Hepatic Encephalopathy. Bed requested for Telemetry/MedSurg (Inpatient). Status is Inpatient Admission. Condition is Stable. Problem is an acute exacerbation. Symptoms have improved. mw
--- NOTE | 2020-11-01 21:45 | P.HP ---
Certification for Inpatient Patient admitted to: Inpatient With expected LOS: >2 Midnights Practitioner: I am a practitioner with admitting privileges, knowledge of patient current condition, hospital course, and medical plan of care. Services: Services provided to patient in accordance with Admission requirements found in Title 42 Section 412.3 of the Code of Federal Regulations Patient History Date of Service: 11/01/20 Reason for admission: Altered level of consciousness History of Present Illness: 50-year-old female with past medical history of cirrhosis , colon cancer came to ER with altered mental status. Patient is altered hence most of the history is obtained the chart review and also talking to the ER physician. The patient was started having altered level of consciousness and was agitated and was acting different. Patient is off lactulose for sometime, has similar history with diagnosis of hepatic encephalopathy. No fever or chills at the time of interview patient is altered as she was given Ativan for agitation. She was also found to have hypokalemia which is being replaced Allergies ondansetron [From Zofran] Allergy (Verified 06/14/20 21:06) Anaphylaxis Home medications list reviewed: Yes Home Medications: Furosemide 40 mg PO DAILY 06/24/20 Lactulose 45 ml PO TID 06/24/20 Rifaximin [Xifaxan] 550 mg PO BID 06/24/20 - Past Medical/Surgical History Diabetic: No Past Medical History: Reviewed- Non-Contributory -: liver cirrhosis -: bleeding ulcer -: chf - recent Past Surgical History: Reviewed- Non-Contributory - Family History Mother -: Cancer - Social History Alcohol use: No CD- Drugs: No Caffeine use: No Review of Systems is unable to be obtained Physical Examination - Vital Signs Temperature: 98.2 F Blood Pressure: 136/88 Pulse: 78 Respirations: 20 - Physical Exam General: Other (Sleeping comfortably ) HEENT: Atraumatic, Normocephalic Neck: Supple Respiratory: Diminished, Crackles/rales Cardiovascular: Regular rate/rhythm, Normal S1 S2 Capillary refill: <2 Seconds Gastrointestinal: Soft and benign, No guarding Musculoskeletal: No clubbing, No swelling Integumentary: No rashes Neurological: Other (Altered , Sleeping comfortably after was given Ativan ) Lymphatics: No axilla or inguinal lymphadenopathy - Studies Laboratory Data (last 24 hrs) 11/01/20 20:13: PT 15.1 H, INR 1.29, APTT 30.8 11/01/20 20:13: WBC 7.4 D, Hgb 10.5 L, Hct 32.2 L, Plt Count 67 L D 11/01/20 20:13: Sodium 144, Potassium 2.9 L*, BUN 14, Creatinine 0.74, Glucose 70 L, Total Bilirubin 3.6 H, AST 137 H, ALT 69, Alkaline Phosphatase 136 H, Amylase 40, Lipase 149 Assessment and Plan - Problems (Diagnosis) (1) Hepatic encephalopathy Current Visit: No Status: Acute (2) Hypoalbuminemia Current Visit: No Status: Acute (3) Lactic acidosis Current Visit: No Status: Acute (4) Liver cirrhosis Current Visit: No Status: Acute - Plan Acute encephalopathy possibly due to elevated ammonia History of hepatic encephalopathy Cirrhosis liver Hyperammonemia lactic acidosis Hypokalemia Elevated LFTs Medication noncompliance Plan monitor closely under tele Monitor neuro vital signs serially Start on lactulose Replace potassium Continue Rifaximin and lactulose Will get a CT of the brain Serial lactic acids Blood cultures monitor LFTs Will get an ultrasound of the abdomen Start on empiric antibiotics GI/DVT prophylaxis - Advance Directives Does patient have a Living Will: No Does patient have a Durable POA for Healthcare: No Time Spent Managing Pts Care (In Minutes): 45
[2020-11-01] MEDS ORDERED: NA CHLORIDE 0.9% 250 ML ONE (21:57)
[2020-11-01] MEDS ORDERED: KCL 20 MEQ/100 mL IVPB 20 MEQ/100 ML BAG IV ONE (21:57)
[2020-11-02 03:31] VITALS: BMI 35.7
[2020-11-02] MEDS: PIPER/TAZO/NS 3.375gm 3.375 GM/100 ML BAG IVPB SCH ×3 (03:33→16:29)
[2020-11-02 05:50] LABS: Absolute Lymphocytes (CBC) 1.2 K/uL (0.7-4.9); Basophils % 0.3 % (0-1.3); Hematocrit 30.4 % (36.0-45.0); Lymphocytes % 23.2 % (15.3-44.8); MPV 10.2 fL (7.6-11.3); RBC Red Blood Cell Count 3.43 M/uL (3.86-4.86)
[2020-11-02 06:13] LABS: ALT/SGPT 60 U/L (12-78); AST/SGOT 118 U/L (15-37); Albumin 1.5 g/dL (3.4-5.0); Alkaline Phosphatase 113 U/L (45-117); BUN Blood Urea Nitrogen 16 mg/dL (7-18); Bicarbonate 30 mmol/L (21-32); Bilirubin Total 3.7 mg/dL (0.2-1.0); Glucose Level 54 mg/dL (74-106); Protein, Total 4.9 g/dL (6.4-8.2); Sodium Level 148 mmol/L (136-145)
[2020-11-02 06:21] LABS: Potassium 2.8 mmol/L (3.5-5.1)
[2020-11-02] MEDS: MORPHINE 2 MG/ML SYR IV PRN (08:41)
[2020-11-02] MEDS: KCL 20 MEQ/100 mL IVPB 20 MEQ/100 ML BAG IV SCH ×5 (08:42→22:09)
[2020-11-02] MEDS: LACTULOSE 20 GM/30 ML UCUP PO SCH ×2 (08:42→20:17)
[2020-11-02] MEDS ORDERED: HOME MED 1 EA UNK (Lactulose [Lactulose] 10 GM/15 ML Solution) PO SCH (09:00)
[2020-11-02] MEDS: Rifaximin 550 MG Tab PO SCH ×2 (09:00→20:17)
[2020-11-02] MEDS ORDERED: NA CHLORIDE 0.9% 250 ML ONE ×2 (09:11→19:54)
--- NOTE | 2020-11-02 10:05 | P.PN ---
Subjective Date of Service: 11/02/20 Chief Complaint: Altered level of consciousness Patient is more awake this morning. She is complaining of hunger and wants to eat. She also complains of abdominal pain. Physical Examination - Vital Signs Temperature: 99.2 F Blood Pressure: 121/62 Pulse: 110 Respirations: 19 Pulse Ox (%): 99 - Physical Exam General: Alert, In no apparent distress, Oriented x3 HEENT: Mucous membr. moist/pink Neck: JVD not distended Respiratory: Clear to auscultation bilaterally, Normal air movement Cardiovascular: Normal S1 S2, Other (Tachycardia), Edema (Bilateral lower extremities) Gastrointestinal: Normal bowel sounds, Soft and benign, No rebound, No guarding, Ascites, Tenderness (Diffuse) Musculoskeletal: No swelling Integumentary: Other (Ecchymosis-right elbow area.) Neurological: Normal speech, Normal strength at 5/5 x4 extr, Other (Hand tremors) - Studies Laboratory Data (last 24 hrs) 11/01/20 20:13: PT 15.1 H, INR 1.29, APTT 30.8 11/01/20 20:13: WBC 7.4 D, Hgb 10.5 L, Hct 32.2 L, Plt Count 67 L D 11/01/20 20:13: Sodium 144, Potassium 2.9 L*, BUN 14, Creatinine 0.74, Glucose 70 L, Total Bilirubin 3.6 H, AST 137 H, ALT 69, Alkaline Phosphatase 136 H, Amylase 40, Lipase 149 Assessment And Plan - Current Problems (Diagnosis) (1) Ascites Current Visit: Yes Status: Acute (2) Hepatic encephalopathy Current Visit: No Status: Acute (3) Liver cirrhosis Current Visit: No Status: Acute - Plan Patient is more awake this morning. She reports noncompliance with her medications. Ammonia level is quite high. Continue oral lactulose and Refaximin. Titrate lactulose to 2-3 loose bowel movements per day Resume diet. Abdominal ultrasound to assess for ascites. Replace electrolytes as needed.
[2020-11-02] MEDS: METOCLOPRAMIDE 10 MG/2mL INJ IV SCH (10:20)
[2020-11-02] MEDS: METOPROLOL TAR 25 MG TAB PO ONE ×2 (15:40→15:54)
[2020-11-02] MEDS: FUROSEMIDE 40 MG TABLET PO SCH ×2 (15:54→20:16)
[2020-11-02] MEDS ORDERED: METOPROLOL TARTRATE 5 MG/5 ML INJ IV STA (16:12)
[2020-11-02] MEDS ORDERED: INFLUENZA VACCINE (for 3y+) 0.5 ML DOSE IMVAC ONE (17:00)
[2020-11-02] MEDS: SPIRONOLACTONE 25 MG TABLET PO SCH (20:17)
[2020-11-03] MEDS: FUROSEMIDE 40 MG TABLET PO SCH ×3 (00:03→21:00)
[2020-11-03] MEDS: LACTULOSE 20 GM/30 ML UCUP PO SCH ×4 (00:03→21:00)
[2020-11-03] MEDS: Rifaximin 550 MG Tab PO SCH ×3 (00:05→21:00)
[2020-11-03] MEDS: SPIRONOLACTONE 25 MG TABLET PO SCH ×3 (00:05→21:00)
[2020-11-03] MEDS: PIPER/TAZO/NS 3.375gm 3.375 GM/100 ML BAG IVPB SCH ×3 (00:16→16:56)
[2020-11-03] MEDS: MORPHINE 2 MG/ML SYR IV PRN ×2 (09:47→14:37)
[2020-11-03] MEDS: METOCLOPRAMIDE 10 MG/2mL INJ IV SCH (10:00)
--- NOTE | 2020-11-03 13:13 | RAD REPORT ---
EXAM DESCRIPTION: CT - Head Brain Wo Cont - 11/02/2020 1:09 am CLINICAL HISTORY: CONFUSED TECHNIQUE: Contiguous axial CT images obtained through the brain without IV contrast. Coronal and sa gittal reformatted images were provided. This exam was performed according to our departmental dose-optimization program, which includes autom ated exposure control, adjustment of the mA and/or kV according to patient size and/or use of iterati ve reconstruction technique. COMPARISON: 02/26/2019 FINDINGS: Brain: No significant white matter changes. No focal mass effect. Jenkins-white matter differ entiation is within normal limits. No hemorrhage. Ventricles: No ventriculomegaly or midline shift. Extra-axial spaces: No extra-axial collection or hemorrhage. Paranasal sinuses and mastoid air cells: Mild left maxillary sinus mucosal thickening. Vessels: Unremarkable Bones: Unremarkable Soft tissues: Mild left frontotemporal soft tissue swelling. IMPRESSION: No acute intracranial or extra-axial abnormality. Electronically signed by: Eleni Mo MD 06/15/2020 12:43 AM CDT Due to temporary technical issues with the PACS/Fluency reporting system, reports are being signed by the in house radiologist without review as a courtesy to ensure prompt reporting. The interpreting r adiologist is fully responsible for the content of the report.
--- NOTE | 2020-11-03 13:19 | P.PN ---
Subjective Date of Service: 11/03/20 Chief Complaint: Altered level of consciousness Patient has been more confused since last night. Ammonia level has been high. Today's ammonia level is pending. No bowel movement since last night. Physical Examination - Vital Signs Temperature: 99.6 F Blood Pressure: 140/65 Pulse: 94 Respirations: 19 Pulse Ox (%): 94 - Physical Exam General: Confused HEENT: Mucous membr. moist/pink, Sclerae nonicteric Neck: Supple, JVD not distended Respiratory: Clear to auscultation bilaterally, Normal air movement Cardiovascular: No edema, Regular rate/rhythm, Normal S1 S2 Gastrointestinal: Normal bowel sounds, Soft and benign, Distended (Mild), Ascites Integumentary: Other (Ecchymosis-right upper arm.) Neurological: Other (No focal deficit.) Assessment And Plan - Current Problems (Diagnosis) (1) Ascites Current Visit: Yes Status: Acute (2) Hepatic encephalopathy Current Visit: No Status: Acute (3) Liver cirrhosis Current Visit: No Status: Acute - Plan Ammonia level is quite high. Continue oral lactulose and Refaximin. Titrate lactulose to 2-3 loose bowel movements per day Diet as tolerated Abdominal ultrasound to assess for ascites. Paracenteses to rule out SBP if she has enough ascites for paracentesis. Check UA Will start empiric IV Rocephin. Replace electrolytes as needed.
[2020-11-03] MEDS: LORazepam 2 MG/ML VIAL IV ONE (23:21)
[2020-11-04] MEDS: LORazepam 2 MG/ML VIAL IV ONE (00:47)
[2020-11-04] MEDS: PIPER/TAZO/NS 3.375gm 3.375 GM/100 ML BAG IVPB SCH ×3 (01:00→16:14)
[2020-11-04 06:12] LABS: Absolute Lymphocytes (CBC) 1.8 K/uL (0.7-4.9); Hematocrit 30.5 % (36.0-45.0); Lymphocytes % 34.2 % (15.3-44.8); RBC Red Blood Cell Count 3.43 M/uL (3.86-4.86)
[2020-11-04 06:35] LABS: Albumin 1.5 g/dL (3.4-5.0); Bilirubin Total 3.4 mg/dL (0.2-1.0); Magnesium 1.8 mg/dL (1.8-2.4); Potassium 3.4 mmol/L (3.5-5.1); Protein, Total 4.9 g/dL (6.4-8.2)
[2020-11-04] MEDS: FUROSEMIDE 40 MG TABLET PO SCH ×2 (08:57→20:20)
[2020-11-04] MEDS: Rifaximin 550 MG Tab PO SCH ×2 (08:57→20:25)
[2020-11-04] MEDS: SPIRONOLACTONE 25 MG TABLET PO SCH ×2 (08:58→20:23)
[2020-11-04] MEDS: LACTULOSE 20 GM/30 ML UCUP PO SCH ×3 (08:58→20:20)
[2020-11-04] MEDS: MORPHINE 2 MG/ML SYR IV PRN ×2 (09:15→12:47)
[2020-11-04] MEDS ORDERED: LACTULOSE 20 GM/30 ML UCUP PR ONE (11:00)
--- NOTE | 2020-11-04 12:01 | P.PN ---
Subjective Date of Service: 11/04/20 Chief Complaint: Altered level of consciousness Subjective: Other (agitated / combative yesterday / overnight sleepy this morning, but more alert/awake. reports lower abdominal pain) Review of Systems 10-point ROS is otherwise unremarkable Physical Examination - Vital Signs Temperature: 99.4 F Blood Pressure: 139/68 Pulse: 103 Respirations: 18 Pulse Ox (%): 95 Assessment & Plan Physician Review Additional Text: Physical Exam: Gen: NAD, AAOx3, some slight confusion HEENT: sclera anicteric, PERRL CV: RRR, no m/r/g Pulm: diminished at bases bilaterally, on RA Ext: 2+ pitting edema up to abdomen Problem List Hepatic encephalopathy Ascites Liver cirrhosis Lower abdominal pain Edema Ammonia level high on admission, improved slightly this morning, pt is more alert Continue oral lactulose and Rifaxmin Titrate lactulose to ~2 loose BMs / day pt more awake/alert and compliant this morning will give lactulose enema refused abd U/S yesterday will obtain CT Abd/pelvis this morning obtain medical records from recent hospitalization at [facility] in [place] ~1.5 weeks ago - report had negative endoscopy (looking for GI bleed) Paracentesis ordered to rule out SBP if enough ascites seen on CT- to be done tomorrow continue empiric zosyn GI consulted UA ordered continue home lasix & spironolactone Dispo: anticipate dc home in ~48hrs Time Spent Managing Pts Care (In Minutes): 40
--- NOTE | 2020-11-04 12:09 | RAD REPORT ---
EXAM DESCRIPTION: CT - Abdomen Pelvis W Contrast - 11/04/2020 11:57 am CLINICAL HISTORY: Abdominal pain COMPARISON: none. TECHNIQUE: Computed axial tomography of the abdomen pelvis was obtained. 100 cc Isovue-300 was admin istered intravenously. Oral contrast was not requested which limits evaluation of bowel. All CT scans are performed using dose optimization technique as appropriate and may include automated exposure control or mA/KV adjustment according to patient size. FINDINGS: Cirrhotic liver. The density is relatively homogeneous. The spleen measures 17 centimeters. The portal vein is patent. Cholecystectomy. The pancreas, adrenals and kidneys appear unremarkable Varices are present within the upper abdomen and paraesophageal region Diffuse edema is present within the subcutaneous tissues. A small amount of ascites is present within the pelvis. Small to moderate amount of ascites is presen t within the abdomen. There is no evidence diverticulitis. Mild to moderate anterior subluxation L4 on L5 Small bilateral pleural effusions IMPRESSION: Cirrhosis Anasarca Small amount of ascites within the pelvis. Small to moderate amount of ascites within the abdomen
[2020-11-04 14:13] LABS: Urine Appearance CLEAR; Urine Blood TRACE (NEG); Urine Color ORANGE; Urine Glucose NEGATIVE (NEG); Urine Protein NEGATIVE (NEG); Urine Specific Gravity >=1.030 (1.005-1.030); Urine Urobilinogen >=8.0 mg/dL (0.2-1.0); Urine pH 5.5 (5.0-7.0)
[2020-11-04 14:33] LABS: Urine Bilirubin NEGATIVE (NEG); Urine Microscopic Reflex ORDER UMIC
[2020-11-04 14:40] LABS: Urine Bacteria <20 /HPF (<20)
[2020-11-04] MEDS: ACETAMINOPHEN 500 MG TAB PO PRN (20:57)
[2020-11-05] MEDS: PIPER/TAZO/NS 3.375gm 3.375 GM/100 ML BAG IVPB SCH ×4 (01:00→17:00)
[2020-11-05] MEDS ORDERED: PROMETHAZINE INJ 25 MG/ML AMP IV ONE (02:38)
[2020-11-05] MEDS: MORPHINE 2 MG/ML SYR IV PRN ×2 (04:25→10:19)
[2020-11-05 05:13] LABS: Absolute Lymphocytes (CBC) 1.6 K/uL (0.7-4.9); Basophils % 0.4 % (0-1.3); Hematocrit 29.6 % (36.0-45.0); Lymphocytes % 25.7 % (15.3-44.8); MPV 10.5 fL (7.6-11.3); RBC Red Blood Cell Count 3.29 M/uL (3.86-4.86)
[2020-11-05 05:24] LABS: Albumin 1.4 g/dL (3.4-5.0); Magnesium 1.7 mg/dL (1.8-2.4); Potassium 3.4 mmol/L (3.5-5.1); Protein, Total 4.8 g/dL (6.4-8.2)
[2020-11-05] MEDS: SPIRONOLACTONE 25 MG TABLET PO SCH ×3 (10:18→21:00)
[2020-11-05] MEDS: FUROSEMIDE 40 MG TABLET PO SCH (10:18)
[2020-11-05] MEDS: LACTULOSE 20 GM/30 ML UCUP PO SCH ×6 (10:18→21:00)
[2020-11-05] MEDS: Rifaximin 550 MG Tab PO SCH ×3 (10:18→21:00)
[2020-11-05] MEDS: METOPROLOL TAR 25 MG TAB PO SCH ×2 (10:25→17:55)
--- NOTE | 2020-11-05 10:39 | CON ---
Reasons Consultation: Hepatic encephalopathy. History Of Presenting Illness: The patient is a 50-year-old woman with past medical history of cirrh osis, history of colon cancer, came to the ER in altered mental status. She has had prior episodes o f hepatic encephalopathy. Has been off lactulose. Apparently, however, when I saw the patient, kimberley ent appeared to be alert and oriented. She had been given rifaximin as well as lactulose. She did c omplain of generalized pain in the abdomen. A CT did not reveal any significant findings. Allergies: ZOFRAN. Home Medications: As in the chart. Past Medical History: History of cirrhosis, CHF. Family History: Noncontributory. Social History: Denies current toxic habits. Review of Systems: GI: As in HPI. As in HPI. Physical Examination: Vital Signs: On presentation, temperature 98.2, blood pressure 136/88, pulse 78, respiratory rate 20 . Head: Atraumatic, normocephalic. EYES: Pupils equally reactive. Neck: Supple. Chest: Bilateral air entry. Abdomen: Obese. No significant ascites ascertained. [employer]: Alert, oriented x3. CVS: S1, S2 plus. Laboratory Data: Reviewed. Platelet count low at 67. Impression: 50-year-old woman with a history of known decompensated cirrhosis, presents with hepatic encephalopathy not improved. She does have minimal ascites on CT scan and her abdominal pain etiolo gy is unclear. She is planned for paracentesis, which I not sure if they will be able to even obtain diagnostic any fluid but it is worth a try. Plan: Continue antibiotics. Supportive care. Continue Xifaxan and lactulose. No intervention from GI. Patient will need to follow up with [facility] after discharge. US/MODL Voice ID: [id number] Report ID: [id number]
[2020-11-05 11:28] LABS: Appearance SLT. TURBID (CLEAR); Body Fluid Source PERITONEAL; Color of fluid Yellow (COLORLESS)
[2020-11-05 11:29] LABS: Body Fluid WBC 215 /mm^3
[2020-11-05] MEDS ORDERED: HYDRALAZINE HCL 20 MG/ML VIAL IV PRN (13:03)
--- NOTE | 2020-11-05 14:04 | RAD REPORT ---
EXAM DESCRIPTION: US - Paracentesis Proc Guidance - 11/05/2020 9:28 am CLINICAL HISTORY: Liver disease with ascites FINDINGS: The risks, benefits and alternatives to the procedure were explained to the patient and in formed consent obtained. The skin and subcutaneous tissues were anesthetized with Lidocaine. Under sonographic guidance an 18 gauge needle was placed into the right upper quadrant an approximately 8 cc of yellow fluid removed a nd sent to the lab. The patient experienced no immediate complication. IMPRESSION: Diagnostic paracentesis
[2020-11-05] MEDS ORDERED: ALBUMIN HUMAN 25% 100 ML IV ONE (16:00)
[2020-11-05] MEDS: FUROSEMIDE 40 MG/4 ML VIAL IV SCH ×2 (17:00)
[2020-11-05] MEDS: ACETAMINOPHEN 500 MG TAB PO PRN (18:25)
--- NOTE | 2020-11-05 19:39 | P.PN ---
Subjective Date of Service: 11/05/20 Chief Complaint: Altered level of consciousness Subjective: Other (pt reports "feeling sick", aches all over, continues with abdominal pain. refusing lactulose at times.) Review of Systems 10-point ROS is otherwise unremarkable Physical Examination - Vital Signs Temperature: 98.6 F Blood Pressure: 135/84 Pulse: 80 Respirations: 16 Pulse Ox (%): 98 Assessment & Plan Physician Review Additional Text: Physical Exam: Gen: AAOx3, some slight confusion, appears uncomfortable HEENT: sclera anicteric, PERRL CV: RRR, no m/r/g Pulm: diminished at bases bilaterally, on RA Abd: diffuse TTP, distended Ext: 2+ pitting edema up to abdomen Problem List Hepatic encephalopathy Ascites Liver cirrhosis Lower abdominal pain Edema Ammonia level high on admission, improved with lactulose, received lactulose enema on 11/04 Continue oral lactulose and Rifaxmin, increase lactulose to 40 TID, was 20 Titrate lactulose to ~2 loose BMs / day pt with intermittent confusion, still not quite at baseline CT abd/pelvis with mild-mod ascites, no specific cause for abdominal pain she is reporting Paracentesis ordered to rule out SBP to be done today obtain medical records from recent hospitalization at [facility] in [place] ~1.5 weeks ago - report had negative endoscopy (looking for GI bleed) - still have not received continue empiric zosyn GI consulted UA negative continue home lasix & spironolactone, increase lasix to 40mg IV from PO, pt with significant edema will give albumin prior to diuresis, due to her liver disease Dispo: anticipate dc home in ~48hrs Time Spent Managing Pts Care (In Minutes): 40
[2020-11-05] MEDS: HYDROCODONE/APAP 5/325 MG TAB PO ONE ×2 (20:01→20:41)
[2020-11-05 21:16] VITALS: O2SAT 95
[2020-11-06] MEDS ORDERED: HYDROCODONE/APAP 5/325 MG TAB PO PRN (00:11)
[2020-11-06] MEDS: PIPER/TAZO/NS 3.375gm 3.375 GM/100 ML BAG IVPB SCH ×2 (00:30→09:00)
[2020-11-06] MEDS: Rifaximin 550 MG Tab PO SCH ×2 (02:57→09:57)
[2020-11-06] MEDS: SPIRONOLACTONE 25 MG TABLET PO SCH ×2 (03:00→09:57)
[2020-11-06] MEDS: LACTULOSE 20 GM/30 ML UCUP PO SCH ×3 (03:02→14:00)
[2020-11-06] MEDS: METOPROLOL TAR 25 MG TAB PO SCH (06:00)
[2020-11-06] MEDS: FUROSEMIDE 40 MG/4 ML VIAL IV SCH (09:00)
--- NOTE | 2020-11-06 09:53 | P.DS ---
Admission Date: 11/01/20 Discharge Date: 11/06/20 Disposition: ROUTINE DISCHARGE Discharge Condition: GOOD Reason for Admission: Altered level of consciousness Consultations: GI - Dr. Prabhakar Procedures: CT Head (11/01): no acute intracranial abnormality CT Abd/pelvis (11/04): Cirrhosis, Anasarca, Small amount of ascites within the pelvis. Small to moderate amount of ascites within the abdomen Problem List: Hepatic encephalopathy Ascites Liver cirrhosis Lower abdominal pain Edema Brief History of Present Illness: 50yo F, PMH: cirrhosis, colon cancer, recurrent hepatic encephalopathy presented to ED with altered mental status / lethargy. Was recently discharged from [facility] in [place] ~1.5 weeks ago for similar issue. Boyfriend reported patient had not taken lactulose for 2-3 days. She was found to have elevated ammonia and admitted for further management of hepatic encephalopathy. Hospital Course: Patient's mentation slowly improved, with uptitration of lactulose, and did require lactulose enema x1. Patient was noted to have temperatures of 99.5-100.1 throughout hospitalization. She was reported diffuse, severe abdominal pain as well. CT abd/pelvis was performed and was negative for any acute process. She was covered since admission for possible SBP with Zosyn. GI was consulted given her ongoing symptoms. Paracentesis was performed, with negative gram stain and fluid analysis negative for SBP, however patient was on antibiotics for ~3 days by that time. She continued to improve and on day of discharge reported no pain, was alert and oriented x3, and asking to be discharged home. Her lactulose was doubled on discharge and she was advised to titrate to have 2-3 soft BMs/day. She was given 7 more days of antibiotics (PO cipro). She is to f/u with her hepatalogist in [place] in the next week. Patient and boyfriend expressed understanding and the importance of compliance with her medications. She was noted to have significant edema up to abdominal wall. She was initially continued on her home dose of lasix, which was then increased to IV lasix and she received IV albumin. She had slight improvement, however IV Access was lost the night prior to discharge. She is to continue home lasix and spironolactone. Vital Signs/Physical Exam: Temp Pulse Resp BP Pulse Ox 98.8 F 88 18 134/84 97 11/06/20 04:00 11/06/20 04:00 11/06/20 04:00 11/06/20 04:00 11/06/20 04:00 General: Alert, In no apparent distress HEENT: Sclerae nonicteric Respiratory: Clear to auscultation bilaterally Cardiovascular: Edema (2+ pitting to abdomen) Gastrointestinal: Soft and benign, No tenderness, Ascites Musculoskeletal: No tenderness Integumentary: No rashes Neurological: Normal speech, Normal affect Laboratory Data at Discharge: WBC 6.4 K/uL (4.3-10.9) D 11/05/20 04:47 Hgb 9.2 g/dL (12.0-15.0) L 11/05/20 04:47 Hct 29.6 % (36.0-45.0) L 11/05/20 04:47 Plt Count 80 K/uL (152-406) L 11/05/20 04:47 PT 15.1 SECONDS (9.5-12.5) H 11/01/20 20:13 INR 1.29 11/01/20 20:13 APTT 30.8 SECONDS (24.3-36.9) 11/01/20 20:13 Sodium 145 mmol/L (136-145) 11/05/20 04:47 Potassium 3.4 mmol/L (3.5-5.1) L 11/05/20 04:47 BUN 16 mg/dL (7-18) 11/05/20 04:47 Creatinine 0.89 mg/dL (0.55-1.3) 11/05/20 04:47 Glucose 111 mg/dL (74-106) H 11/05/20 04:47 Magnesium 1.7 mg/dL (1.8-2.4) L 11/05/20 04:47 Total Bilirubin 3.0 mg/dL (0.2-1.0) H 11/05/20 04:47 AST 100 U/L (15-37) H 11/05/20 04:47 ALT 50 U/L (12-78) 11/05/20 04:47 Alkaline Phosphatase 115 U/L (45-117) 11/05/20 04:47 Troponin I < 0.02 ng/mL (0.0-0.045) 11/05/20 18:47 Amylase 40 U/L (25-115) 11/01/20 20:13 Lipase 149 U/L (73-393) 11/01/20 20:13 Home Medications: Furosemide 40 mg PO BID 06/24/20 Rifaximin [Xifaxan] 550 mg PO BID 06/24/20 Spironolactone 25 mg PO BID 11/02/20 Ciprofloxacin HCl 500 mg PO BID 7 Days #14 tablet 11/06/20 Lactulose 45 ml PO TID #4000 ml 11/06/20 New Medications: Ciprofloxacin HCl 500 mg PO BID 7 Days #14 tablet Lactulose 45 ml PO TID #4000 ml Patient Discharge Instructions: you were found to have high ammonia levels. Your lactulose was increased to 45ml, three times a day. Please continue this dose, and take an extra dose if needed. Your goal is to have 2-3 soft bowel movements a day. You were treated for possible infection of your abdominal fluid (ascites). You are prescribed 7 more days of antibiotics - Ciprofloxacin. Please follow up with your liver doctor within 1 week. Continue taking your lasix twice a day as previously prescribed Diet: Low sodium Activity: Ad carmen Followup: Unknown,U [Primary Care Provider] -
[2020-11-06 10:00] VITALS: BP 130/75
[2020-11-06 10:50] VITALS: TEMP 97.9
[2020-11-06] MEDS ORDERED: FUROSEMIDE 40 MG TABLET PO ONE (11:05)
== END 2020-11-06 14:00 | disposition home or self-care (01) | DRG 442 ==
LOC: ER 19:59 → ERHOLD 21:45 → 2ND 11-02 02:28 → ERHOLD 11-02 12:30 → 2ND 11-02 12:32
PROVIDERS: ADMIT Family Medicine; ATTEND Hospitalist
DX: K72.90 Hepatic failure, unspecified without coma (principal); E87.2 Acidosis; E72.20 Disorder of urea cycle metabolism, unspecified; R18.8 Other ascites; E87.6 Hypokalemia; E88.09 Other disorders of plasma-protein metabolism, not elsewhere classified; K74.60 Unspecified cirrhosis of liver; Z88.8 Allergy status to other drugs, medicaments and biological substances; Z88.5 Allergy status to narcotic agent; Z88.0 Allergy status to penicillin; Z79.899 Other long term (current) drug therapy; Z91.14 Patient's other noncompliance with medication regimen; Z85.038 Personal history of other malignant neoplasm of large intestine; Z20.822 Contact with and (suspected) exposure to COVID-19
CPT/HCPCS: 36415; 49083; 70450; 71045; 74177; 80048; 80053; 80076; 81003; 81015; 82140; 82150; 82550; 82553; 82947; 83605; 83690; 83735; 84132; 84145; 84484; 85025; 85610; 85730; 87040; 87070; 87086; 87088; 89050; 93005; 94760; 96361; 96365; 96366; 96375; 97116; 97161; 99285; J0360; J1940; J2270; J2543; J2550; J2765; J3480; J7040; J7050; P9047; Q9967; U0003

== ENCOUNTER 2020-11-22 05:59 | Inpatient (IN) | payer SELFPAY ==
--- OUTSIDE RECORDS SUMMARY | 2020-11-22 06:02 | XMS REPORT | Clinical Summary ---
:1970 Author Organization [facility] Address [address] [place] [address] Care Team Providers Name Role Phone Unavailable [...] Encounters Date Type Specialty Care Team Description 11/20/2020 Telephone Hepatology Gin Anthony, Em Land MA 11/10/2020 Telephone Transplant Hepatology Fabiana Bernstein Insur adele Call R 10/28/2020 Abstract Transplant Hepatology Erasmo Vivar Jr., MD 10/23/2020 Anesthesia Event Gastroenterology Malcom Rodriguez MD 10/23/2020 Surgery Gastroenterology Ruth Toney [facility] Scott MD 10/22/2020 Hospital General Internal Anali, Gastrointes tinal hemorrhage, unspecified gastrointestinal hemorrhage type (Primary Dx); - Encounter Medicine MD Audrey Humphrey; 10/24/2020 [place], Alcoholic cirrh osis of liver with ascites (HCC) [facility] 10/22/2020 Orders Only Internal Medicine Milagro Briones MD 10/22/2020 Telephone Gastroenterology Ruth Toney MD after 11/22/2019 Social History Tobacco Use Types Packs/Day Years Used Date Current Some Day Smoker Smokeless Tobacco: Never Used Alcohol Use Drinks/Week oz/Week Comments Not Currently Sex Assigned at Date Recorded Not on file Last Filed Vital Signs Vital Sign Reading Time Taken Comments Blood Pressure 128/77 10/24/2020 12:45 PM DOG HANDLER Pulse 95 10/24/2020 12:45 PM DOG HANDLER Temperature 36.8 C (98.2 F) 10/24/2020 12:45 PM DOG HANDLER Respiratory Rate 16 10/24/2020 12:45 PM DOG HANDLER Oxygen Saturation 99% 10/24/2020 12:45 PM DOG HANDLER Inhaled Oxygen Concentration - - Weight 88.1 kg (194 lb 5 oz) 10/22/2020 6:07 PM DOG HANDLER Height 162.6 cm (5' 4") 10/22/2020 6:07 PM DOG HANDLER Body Mass Index 33.35 10/22/2020 6:07 PM DOG HANDLER Plan of Treatment Health Maintenance Due Date Last Done Comments BREAST CANCER SCREENING 1970 COLON CANCER SCREENING COLONOSCOPY 1970 PNEUMOCOCCAL VACCINE 0-64 YRS (1 of 1 - 1974 PPSV23) DTAP/TDAP/TD VACCINES (1 - Tdap) 1975 CERVICAL CANCER SCREENING PAP ONLY (Age 0[birth year]1989 21-65) LIPID PANEL 2013 INFLUENZA VACCINE (#1) 2020 DEPRESSION SCREENING (12+) 10/17/2020 HEPATITIS C SCREENING Completed 10/23/2020, 10/23/2020 Procedures Procedure Name Priority Date/Time Associated Diagnosis Comme nts US ABDOMEN LIMITED Routine 10/24/2020 2:23 Resul ts for this PM DOG HANDLER procedure are i n the results section. CBC W/PLT COUNT & Routine 10/24/2020 2:19 Result s for this AUTO DIFFERENTIAL AM DOG HANDLER procedure are in the results section. PROTHROMBIN TIME/INR Routine 10/24/2020 2:19 Res ults for this AM DOG HANDLER procedure are i n the results section. CBC W/PLT COUNT & Routine 10/24/2020 2:19 Result s for this AUTO DIFFERENTIAL AM DOG HANDLER procedure are in the results section. COMPREHENSIVE Routine 10/24/2020 2:19 Results fo r this METABOLIC PANEL AM DOG HANDLER procedure ar e in the results section. REPORT OF PROCEDURE - 10/23/2020 1:12 ENDOSCOPY URL PM DOG HANDLER UPPER ENDOSCOPY 10/23/2020 9:39 Gastrointestinal AM DOG HANDLER hemorrhage, unspecified gastrointestinal hemorrhage type COMPREHENSIVE Routine 10/23/2020 5:15 Results fo r this METABOLIC PANEL AM DOG HANDLER procedure ar e in the results section. MAGNESIUM Routine 10/23/2020 5:15 Results for this AM DOG HANDLER procedure are i n the results section. CBC W/PLT COUNT & Routine 10/23/2020 5:14 Result s for this AUTO DIFFERENTIAL AM DOG HANDLER procedure are in the results section. MITOCHONDRIAL AB Routine 10/23/2020 5:14 Results for this TITER AM DOG HANDLER procedure are i n the results section. MITOCHONDRIAL AB Routine 10/23/2020 5:14 Results for this SCREEN AM DOG HANDLER procedure are i n the results section. HEPATITIS A ANTIBODY, Routine 10/23/2020 5:14 Re sults for this IGG AM DOG HANDLER procedure are i n the results section. HEPATITIS B CORE Routine 10/23/2020 5:14 Results for this ANTIBODY, TOTAL AM DOG HANDLER procedure ar e in the results section. ANTI-MITOCHONDRIAL Routine 10/23/2020 5:14 AB, REFLEX TO TITER AM DOG HANDLER ANTI-NUCLEAR ANTIBODY Routine 10/23/2020 5:14 Re sults for this (LUCAS) AM DOG HANDLER procedure are i n the results section. ACTIN (SMOOTH MUSCLE) Routine 10/23/2020 5:14 Re sults for this ANTIBODY, IGG AM DOG HANDLER procedure are in the results section. RETICULOCYTE COUNT Routine 10/23/2020 5:14 Resul ts for this AM DOG HANDLER procedure are i n the results section. FOLATE, SERUM Routine 10/23/2020 5:14 Results fo r this AM DOG HANDLER procedure are i n the results section. VITAMIN B12 Routine 10/23/2020 5:14 Results for this AM DOG HANDLER procedure are i n the results section. IRON, TIBC, % SAT. Routine 10/23/2020 5:14 Resul ts for this (WITHOUT FERRITIN) AM DOG HANDLER procedure are in the results section. FERRITIN Routine 10/23/2020 5:14 Results for this AM DOG HANDLER procedure are i n the results section. CERULOPLASMIN Routine 10/23/2020 5:14 Results fo r this AM DOG HANDLER procedure are i n the results section. ALPHA FETOPROTEIN Routine 10/23/2020 5:14 Result s for this (AFP), TUMOR MARKER AM DOG HANDLER procedur e are in the results section. [id number]\\, Routine 10/23/2020 5:14 Re sults for this SERUM AM DOG HANDLER procedure are i n the results section. HEPATITIS PANEL, Routine 10/23/2020 5:14 Results for this ACUTE AM DOG HANDLER procedure are i n the results section. HEPATITIS C GENOTYPE Routine 10/23/2020 5:14 Res ults for this AM DOG HANDLER procedure are i n the results section. HEPATITIS C PCR, Routine 10/23/2020 5:14 Results for this QUANTITATIVE AM DOG HANDLER procedure are i n the results section. PROTHROMBIN TIME/INR Routine 10/23/2020 5:14 Res ults for this AM DOG HANDLER procedure are i n the results section. CBC W/PLT COUNT & Routine 10/23/2020 5:14 Result s for this AUTO DIFFERENTIAL AM DOG HANDLER procedure are in the results section. HEMOGLOBIN AND Routine 10/23/2020 5:14 Results f or this HEMATOCRIT AM DOG HANDLER procedure are i n the results section. US ABDOMINAL WITH NADINE 10/22/2020 9:15 Result s for this DOPPLER PM DOG HANDLER procedure are i n the results section. URINALYSIS W/ REFLEX Routine 10/22/2020 5:23 Res ults for this URINE CULTURE PM DOG HANDLER procedure are in the results section. SARS-COV2/RT-PCR STAT 10/22/2020 3:22 Results for this ([facility] & REF LABS) PM DOG HANDLER procedure are in the results section. BLOOD CULTURE Routine 10/22/2020 3:07 Results fo r this PM DOG HANDLER procedure are i n the results section. CBC W/PLT COUNT & STAT 10/22/2020 2:07 Result s for this AUTO DIFFERENTIAL PM DOG HANDLER procedure are in the results section. TROPONIN I STAT 10/22/2020 2:07 Results for this PM DOG HANDLER procedure are i n the results section. HEPATIC FUNCTION STAT 10/22/2020 2:07 Results for this PANEL PM DOG HANDLER procedure are i n the results section. BASIC METABOLIC PANEL STAT 10/22/2020 2:07 Re sults for this (7) PM DOG HAND[facility]ER procedure are i n the results section. CBC W/PLT COUNT & STAT 10/22/2020 2:07 Result s for this AUTO DIFFERENTIAL PM DOG HANDLER procedure are in the results section. ECG 12-LEAD Routine 10/22/2020 2:01 Results for this PM DOG HANDLER procedure are i n the results section. ECG 12-LEAD Routine 10/22/2020 2:01 PM DOG HANDLER Procedure Note - Interface, External Ris In - 10/23/2020 12:17 PM DOG HANDLER Ventricular Rate 83 BPM Atrial Rate 83 BPM P-R Interval 110 ms QRS Duration 76 ms Q-T Interval 432 ms QTC Calculation(Bazett) 507 ms P Harvest 61 degrees R Harvest 28 degrees T Harvest 34 degrees Sinus rhythm with short MI Low voltage QRS Cannot rule out Anterior inf arct , age undetermined Prolonged QT Abnormal ECG No previous ECGs available XR CHEST 1 VIEW STAT 10/22/2020 1:46 PM DOG HANDLER R esults for this PORTABLE/BEDSIDE procedure a re in the results section . after 11/22/2019 Results US abdomen limited (10/24/2020 2:23 PM DOG HANDLER) Specimen Narrative Performed At FINAL REPORT [employer] abdominal ultrasound CLINICAL HISTORY: Ascites FINDINGS: A limited abdominal ultrasou nd was performed and only a trace amount of fluid was seen. Therefor e a paracentesis was not performed. Signed: Alex Gonzalez MD Report Verified Date/Time: 10/24/2020 17:32:34 Reading Location: [facility] P006J Ultrasoun d Reading Room Procedure Note Interface, External Ris In - 10/24/2020 5:34 PM DOG HANDLER FINAL REPORT Limited abdominal ultrasound CLINICAL HISTORY: Ascites FINDINGS: A limited abdominal ultrasoun d was performed and only a trace amount of fluid was seen. Therefor e a paracentesis was not performed. Signed: Alex Gonzalez MD Report Verified Date/Time: 10/24/2020 1 7:32:34 Reading Location: [facility] B1 P006J Ultrasoun d Reading Room Performing Organization Address City/State/Zipcode Phone Number [employer] CBC with platelet count + automated diff (10/24/2020 2:19 AM DOG HANDLER)Only the most recent of3 resultswithin the time period is included. Pathologist Sig nature WBC 5.3 3.5 - 10.5 [facility] K/L [facility] RBC 3.40 (L) 3.93 - 5.22 [facility] M/L [facility] Hemoglobin 9.6 (L) 11.2 - 15.7 [facility] GM/DL [facility] Hematocrit 31.7 (L) 34.1 - 44.9 % [facility] MCV 93.2 79.4 - 94.8 fL [facility] MCH 28.2 25.6 - 32.2 pg [facility] MCHC 30.3 (L) 32.2 - 35.5 [facility] GM/DL [facility] RDW 18.6 (H) 11.7 - 14.4 % [facility] Platelets 62 (L) 150 - 450 K/CU [facility] MPV 13.0 (H) 9.4 - 12.3 fL [facility] nRBC 0 0 - 0 /100 WBC [facility] % Neutros 52 % [facility] % Lymphs 34 % [facility] % Monos 10 % [facility] % Eos 3 % [facility] % Baso 1 % [facility] # Neutros 2.73 1.56 - 6.13 [facility] # Lymphs 1.81 1.18 - 3.74 [facility] # Monos 0.54 (H) 0.24 - 0.36 [facility]PLACED BY [facility] # Eos 0.14 0.04 - 0.36 [facility] # Baso 0.05 0.01 - 0.08 [facility] Immature 0 0 - 1 % [facility] Specimen Blood Performing Organization Address City/State/Zipcode Phone Number [facility] [address] [place] [address] CENTER Prothrombin time/INR (10/24/2020 2:19 AM DOG HANDLER)Only the most recent of2 results within the time period is included. Pathologist Sig nature Protime 19.8 (H) 11.9 - 14.2 seconds [facility] INR 1.75 <=5.90 [facility] Specimen Blood Narrative Performed At Effective 03/14/2019: PT Reference Range [facility] Change New: 11.9-14.2 Previous: 11.7-14.7 RECOMMENDED COUMADIN/WARFARIN INR THERAPY RANGES STANDARD DOSE: 2.0-3.0 Includes: PROPHYLAXIS for venous thrombosis, systemic embolization; TREATMENT for venous thrombosis and/or pulmonary embolus. HIGH RISK: Target INR is 2.5-3.5 for patients wiht mechanical heart valves. Performing Organization Address City/State/Zipcode Phone Number [facility] [address] [place] [address] CENTER Comprehensive metabolic panel (10/24/2020 2:19 AM DOG HANDLER)Only the most recent of2 resultswithin the time period is included. Protein, Total 4.7 (L) 6.0 - 8.3 [facility] gm/dL [facility] Albumin 1.7 (L) 3.5 - 5.0 [facility] g/dL [facility] Alkaline 114 40 - 150 U/L [facility] Phosphatase [facility] Total Bilirubin 3.0 (H) 0.2 - 1.2 [facility] mg/dL [facility] Sodium 139 136 - 145 [facility] meq/L [facility] Potassium 3.2 (L) 3.5 - 5.1 [facility] meq/L [facility] Chloride 106 98 - 107 [facility] meq/L [facility] CO2 27 22 - 29 meq/L [facility] BUN 12 7 - 21 mg/dL [facility] Creatinine 0.78 0.57 - 1.25 [facility] mg/dL [facility] Glucose 127 (H) 70 - 105 [facility] mg/dL [facility] Calcium 7.0 (L) 8.4 - 10.2 [facility] mg/dL [facility] AST 114 (H) 5 - 34 U/L [facility] ALT 58 (H) 6 - 55 U/L [facility] EGFR 78Comment: mL/min/1.73 [facility] ESTIMATED GFR IS sq [facility] NOT ACCURATE MEDICAL CENTER CREATININE CLEARANCE IN PREDICTING GLOMERULAR FILTRATION RATE. ESTIMATED GFR IS NOT APPLICABLE FOR DIALYSIS PATIENTS. Specimen Blood Narrative Performed At [employer] ID - ANANDA Cue[employer] [facility] Specimen slightly icteric Performing Organization Address City/[facility]/Zipcode Phone Number [facility] [address] [place] [address] CENTER REPORT OF PROCEDURE - ENDOSCOPY URL (10/23/2020 1:12 PM DOG HANDLER) Narrative Performed At This result has an attachment that is no t available. Magnesium (10/23/2020 5:15 AM DOG HANDLER) Pathologist [facility] Magnesium 1.8 1.6 - 2.6 mg/dL [facility] Specimen Blood Narrative Performed At [facility] ID - [place] Doll [facility] Performing Organization Address [facility] Phone Number [address] [address] CENTER Mitochondrial Ab Titer (10/23/2020 5:14 AM DOG HANDLER) Pathologist [facility] Mitochondrial Ab TNP <1:20 [facility] Titer Comment: INCORPORATED Test Not Performed. Screening test Negative or Not Det ected. Titer not performed. Specimen Blood Narrative Performed At Performing Lab [facility] EZ [place] [address] [place] [address] Wilder Ochoa MD, PhD, BEATRICE Performing Organization Address [facility] [place] Phone Number [facility] [place] [address] INCORPORATED [id number] [facility] Mitochondrial Ab Screen (10/23/2020 5:14 AM DOG HANDLER) Pathologist [facility] Anti-Mitochond NEGATIVE NEGATIVE [facility] Abs Comment: INCORPORATED This test was developed and its analytical performance characteristics have been determined by [employer]. It has not been cleared or approved by FDA. This assay has been validated pursuant to the CLIA regulations and is used for clini vasile purposes. Specimen Blood Narrative Performed At Performing Lab [employer] [facility] E[facility] [employer] [place] [address] [facility] [place] [address] Wilder Ochoa MD, PhD, BEATRICE Performing Organization Address [facility] Phone Number [place] [address] INCORPORATED [address] [facility] Hepatitis A antibody, IgG (10/23/2020 5:14 AM DOG HANDLER) Pathologist Sig nature Hep A IgG Reactive (A) Nonreactive [facility] Specimen Blood Narrative Performed At [employer] ID - [place] [facility] Performing Organization Address City/[facility] Centercode Phone Number [address] [address] CENTER Anti-Mitochondrial Ab, reflex to titer (10/23/2020 5:14 AM DOG HANDLER) Pathologist Sig nature Scan Result [facility] D Specimen Blood Narrative Performed At This result has an attachment that is no t available. Performing Organization Address [facility] [place] Phone Number [place] [address] INCORPORATED [address] [facility] Iron, TIBC, % sat. (without ferritin) (10/23/2020 5:14 AM DOG HANDLER) Pathologist Sig [facility] Iron 129.0 40.0 - 160.0 [facility] ug/dL [facility] TIBC 178 (L) 250 - 450 ug/dL [facility] Iron % Saturation 72 (H) 20 - 55 % [facility] Specimen Blood Narrative Performed At [employer] ID - [place] [facility] Performing Organization Address [facility] Centercotn Phone Number [address] [address] CENTER Actin (Smooth Muscle) Antibody, IgG (10/23/2020 5:14 AM DOG HANDLER) Anti-Smooth 23 (H) See Note: U [facility] [...] Lab [facility] [place] [address] [place] [address] Wilder Ochoa MD, PhD, BEATRICE Performing Organization Address City/[facility] Centercode Phone Number [place] [address] INCORPORATED [address] [facility] [id number] (10/23/2020 5:14 AM DOG HANDLER) Pathologist Sig nature A-1 Antitrypsin 102.40 90.00 - 200.00 [facility] mg/dL [facility] Specimen Blood Narrative Performed At [facility]man RIGOBERTO Doll [facility] Performing Organization Address City/[facility] Centercode Phone Number [address] [address] CENTER Hemoglobin and hematocrit (10/23/2020 5:14 AM DOG HANDLER) Pathologist Sig nature Hemoglobin 9.0 (L) 11.2 - 15.7 GM/DL [facility] Hematocrit 30.0 (L) 34.1 - 44.9 % [facility] Specimen Blood Performing Organization Address City/[facility] Centercode Phone Number [address] [address] CENTER Ceruloplasmin (10/23/2020 5:14 AM DOG HANDLER) Pathologist Sig nature Ceruloplasmin 27 18 - 53 mg/dL [facility] Specimen Blood Narrative Performed At Performing Lab [facility] *BARB [facility], [address] [place] [id number] Dahiana Small MD Performing Organization Address City/[facility]/Zipcode Phone Number [place] [address] INCORPORATED [address] [email or web address] Alpha fetoprotein (AFP), tumor marker (10/23/2020 5:14 AM DOG HANDLER) Pathologist Sig nature Alpha-Fetoprotein <2.0 <10.0 ng/mL [facility] Specimen Blood Narrative Performed At Infantry Assaultman ID - [facility] Performing Organization Address City/[facility] Centercode Phone Number [address] [address] RIESEL Hepatitis panel, acute (10/23/2020 5:14 AM DOG HANDLER) Pathologist Sig nature Hep A IgM Nonreactive Nonreactive [facility] Hep B C IgM Nonreactive Nonreactive [facility] Hepatitis C Ab Reactive (A) Nonreactive [facility] HBsAg Screen Nonreactive Nonreactive [facility] Specimen Blood Narrative Performed At Infantry Assaultman ID - [facility] Performing Organization Address [facility] Centercotn Phone Number [address] [phone] [place]IESEL Hepatitis B core antibody, total (10/23/2020 5:14 AM DOG HANDLER) Pathologist Sig nature Hep B Core Total Ab Nonreactive Nonreactive [facility] Specimen Blood Narrative Performed At Infantry Assault[facility] ID - [place] [facility] Performing Organization Address City/[facility] Centercode Phone Number [address] [address] CENTER Hepatitis C genotype (10/23/2020 5:14 AM DOG HANDLER) HCV Genotype, 3 [facility] LiPA Comment: INCORPORATED The method used in this test is RT-PCR and reverse hybridization (Line Probe) of the 5' UTR and core region of the HCV genome. The analytical performance characteristics of this assay have been determined by [facility]. The modifications have not been cleared or approved by the FDA. This assay has been validated pursuant to the CLIA regulations and is used for clinical purposes. For additional information, please refer to http://education.1bib.GuestSpan /faq/HCVGenotypi ng (This link id being provided for informational/ educational purposes only.) Specimen Blood Narrative Performed At Performing Lab [facility] *QDID [facility] [employer] [employer] [address] [place] [address] Arnie Phillips MD Performing Organization Address City/State/Zipcode Phone Number [place] [address] INCORPORATED [address] [facility] Hepatitis C PCR, Quantitative (10/23/2020 5:14 AM DOG HANDLER) Pathologist Sig nature HCV PCR, Quantitative 282,000 (H) <15 IU/mL [facility] Specimen Blood Narrative Performed At This test uses a Real-Time Polymerase Chain [facility] Reaction (RT-PCR) methodology and was performed using [employer] Ampliprep/MARIXA TaqMan HCV test kit version 2.0 ([employer] Reportable range for this assay is 15 - 100,000,000 IU per mL (1.18 - 8.00 Log IU/mL). Performing Organization Address City/[facility]/Zipcode Phone Number [address] [address] CENTER Reticulocyte count (10/23/2020 5:14 AM DOG HANDLER) Pathologist Sig nature % Retic 4.6 (H) 0.5 - 1.7 % [facility] Specimen Blood Narrative Performed At [employer] Assault[employer] ID - [id number] [facility] Performing Organization Address City/[facility]/Zipcode Phone Number [address] [address] CENTER Anti-Nuclear Antibody (LUCAS) (10/23/2020 5:14 AM DOG HANDLER) Pathologist Sig nature LUCAS Negative Negative [facility] Specimen Blood Narrative Performed At Test performed by IFA method. [facility] Test performed by IFA method. Performing Organization Address City/[facility]/Zipcode Phone Number [address] [place] [address] CENTER Folate, Serum (10/23/2020 5:14 AM DOG HANDLER) Pathologist Sig nature Folate 12.30 >=7.00 ng/mL [facility] Specimen Blood Narrative Performed At Infantry Assaultman ID - AADIXIEID [facility] Performing Organization Address [facility] Phone Number [address] [address] [place] Ferritin (10/23/2020 5:14 AM DOG HANDLER) Pathologist Sig nature Ferritin 71.00 5.00 - 275.00 ng/mL [facility] Specimen Blood Narrative Performed At Infantry Assaultman ID - AADIXIEID [facility] Performing Organization Address [facility] Phone Number [address] [address] CENTER Vitamin B12 (10/23/2020 5:14 AM DOG HANDLER) Pathologist Sig [facility] Vitamin B12 1,494 (H) 213 - 816 pg/mL [facility] Specimen Blood Narrative Performed At [employer] - [facility] Performing Organization Address [facility] Phone Number [address] [address] CENTER US abdominal with doppler (10/22/2020 9:15 PM DOG HANDLER) Specimen Narrative Performed At FINAL REPORT [employer] Ultrasound of the Abdomen, with Doppler Clinical History: ascites, cirrhosis Comparison: None. Technique: Sonographic evaluation of t he abdomen was performed with Doppler. Findings: Liver: [...] External Ris In - 10/23/2020 2:18 AM DOG HANDLER FINAL REPORT Ultrasound of the Abdomen, with [...] + Reflex to Culture (10/22/2020 5:23 PM DOG HANDLER) Color, UA Yellow [facility] Clarity, UA Hazy [facility] Specific Horton, 1.024 1.001 - 1.035 [facility] pH, UA 5.5 5.0 - 8.0 [facility] Protein, UA 20 mg/dL (A) Negative [facility] Glucose, UA Negative Negative [facility] Ketones, UA Negative Negative [facility] Bilirubin, UA Negative Negative [facility] Blood, UA Small (A) Negative [facility] Nitrite, UA Negative Negative [facility] Leukocytes, UA Negative Negative [facility] Urobilinogen, UA 0.2 0.2 - 1.0 mg/dL [facility] RBC, UA 1 /HPF [facility] WBC, UA 4 /HPF [facility] Mucus Rare [facility] Squam Epithel, UA 9 /HPF [facility] Specimen Source [facility] Specimen Urine Narrative Performed At [employer] [facility] Performing Organization Address City/State/Zipcode Phone Number [facility] [address] [place] [address] CENTER SARS-CoV2/RT-PCR (Asymptomatic ONLY) (10/22/2020 3:22 PM DOG HANDLER) SARS-COV2/RT-PCR Negative Not Detected, [facility] Negative, See [facility] external report CENTER for linked test SARS-COV-2 [facility] PERFORMING LAB [facility] Specimen Other - Nasopharyngeal wall structure (b tan structure) Narrative Performed At Negative result for this test determines that [facility] SARS-CoV-2 RNA was not present in the [...] the Act. Fact Sheet for Healthcare Providers: https://www.[employer]/sites/default/files/pro duct/documents/Fact_Sheet_HC_Providers_Lyra_SA RS-CoV-2.pdf Fact Sheet for Healthcare Patients: https://www.[employer]/sites/default/files/pro duct/documents/Fact_Sheet_Patients_Lyra_SARS-C oV-2.pdf Performing Laboratory: [address] [place] [address] Performing Organization Address City/[facility]/Zipcode Phone Number [address] [address] [place] Blood Culture - Routine (Right Venipuncture) (10/22/2020 3:07 PM DOG HANDLER) Pathologist Sig nature Result No growth in 5 days [facility] Specimen Blood - Entire left upper arm (body stru cture) Performing Organization Address [facility]/Zipcode Phone Number [address] [address] [place] Troponin I (not available at [facility] [place]) (10/22/2020 2:07 PM DOG HANDLER) Pathologist Sig nature Troponin I 0.01 0.00 - 0.03 ng/mL [facility] Specimen Blood Narrative Performed At Troponin I (TnI) levels must be interpreted [facility] in the context of the presenting symptoms and the clinical findings. Elevated TnI levels indicate myocardial damage, but are not specific for ischemic heart disease. Elevated TnI levels are seen in patients with other cardiac conditions (including myocarditis and congestive heart failure), and slight TnI elevations occur in patients with other conditions, including sepsis, renal failure, acidosis, acute neurological disease, and persistent tachyarrhythmia. [employer] ID - ADMIN Performing Organization Address [facility] Phone Number [address] [address] [place] Liver Panel (10/22/2020 2:07 PM DOG HANDLER) Pathologist Sig nature Protein, Total 4.6 (L) 6.0 - 8.3 gm/dL [facility] Albumin 1.7 (L) 3.5 - 5.0 g/dL [facility] Total Bilirubin 3.5 (H) 0.2 - 1.2 mg/dL [facility] Bilirubin, Direct 1.7 (H) 0.1 - 0.5 mg/dL [facility] Alkaline Phosphatase 106 40 - 150 U/L [facility] AST 132 (H) 5 - 34 U/L [facility] ALT 61 (H) 6 - 55 U/L [facility] Specimen Blood Narrative Performed At [employer] ID - ADMIN [facility] Specimen slightly icteric Performing Organization Address City/[facility] Phone Number [address] [address] [place] Basic metabolic panel (Na, K+, Cl, CO2, Glu, Ca, BUN, Cr) (10/22/2020 2:07 PM DOG HANDLER) Sodium 141 136 - 145 meq/L [facility] Potassium 3.1 (L) 3.5 - 5.1 meq/L [facility] Chloride 107 98 - 107 meq/L [facility] CO2 30 (H) 22 - 29 meq/L [facility] BUN 12 7 - 21 mg/dL [facility] Creatinine 0.65 0.57 - 1.25 [facility] mg/dL [facility] Glucose 90 70 - 105 mg/dL [facility] Calcium 7.0 (L) 8.4 - 10.2 [facility] mg/dL [facility] EGFR 96Comment: ESTIMATED mL/min/1.73 sq [facility] GFR IS NOT m [facility] ACCURATE [place] CREATININE CLEARANCE IN PREDICTING GLOMERULAR FILTRATION RATE. ESTIMATED GFR IS NOT APPLICABLE FOR DIALYSIS PATIENTS. Specimen Blood Narrative Performed At [employer] ID - ADMIN [facility] Specimen slightly icteric Performing Organization Address City/[facility]/Zipcode Phone Number [facility] [address] [place] [address] CENTER ECG 12 lead (10/22/2020 2:01 PM DOG HANDLER) Specimen Narrative Performed At Ventricular Rate 83 BPM GE MUSE Atrial Rate 83 BPM P-R Interval 110 ms QRS Duration 76 ms Q-T Interval 432 ms QTC Calculation(Bazett) 507 ms P Harvest 61 degrees R Harvest 28 degrees T Harvest 34 degrees Sinus rhythm with short MI Low voltage QRS Prolonged QT Abnormal ECG No previous ECGs available Confirmed by MD Farnsworth Roberto ([id number]) on 2020 3:18:11 PM Procedure Note Interface, External Ris In - 10/23/2020 3:18 PM DOG HANDLER Ventricular Rate 83 BPM Atrial Rate 83 BPM P-R Interval 110 ms QRS Duration 76 ms Q-T Interval 432 ms QTC Calculation(Bazett) 507 ms P Harvest 61 degrees R Harvest 28 degrees T Harvest 34 degrees Sinus rhythm with short MI Low voltage QRS Prolonged QT Abnormal ECG No previous ECGs available Confirmed by MD Farnsworth Roberto ([id number]) on 10/23/2020 3:18:11 PM Performing Organization Address City/[facility] Phone Number GE MiNOWireless XR chest 1 view portable / bedside (10/22/2020 1:46 PM DOG HANDLER) Specimen Narrative Performed At FINAL REPORT GE RIS CHEST AP PORTABLE History provided: Abdominal pain Heart size magnified by projection. Lung s grossly clear and vascularity normal. Signed: Francisco Javier Garcia MD Report Verified Date/Time: 10/22/2020 15:35:51 Reading Location: [facility] Radiology Readin g Room Electronically signed by: FRANCISCO JAVIER santiago 10/22/2020 03:35 PM Procedure Note Interface, External Ris In - 10/22/2020 3:38 PM DOG HANDLER FINAL REPORT CHEST AP PORTABLE History provided: Abdominal pain Heart size magnified by projection. Lung s grossly clear and vascularity normal. Signed: Francisco Javier Garcia MD Report Verified Date/Time: 10/22/2020 1 5:35:51 Reading Location: [facility] Radiology Readin g Room Performing Organization Address City/State/Zipcode Phone Number GE RIS after 11/22/2019 Insurance Payer Benefit Plan / Subscriber ID Effective Dates Phone Addre ss Type Group BLUE BCBS PPO POS [id number] 2020-Presen [phone] [address] PPO CROSS/BLUE EPO CHOICE t 2 [facility] [id number] (Home) [place] [address] Advance Directives For more information, please contact: [phone] Code Status Date Activated Date Inactivated Comments Full Code 10/22/2020 2:24 PM 10/24/2020 8:03 PM This code status was determined by: Patient
--- OUTSIDE RECORDS SUMMARY | 2020-11-22 06:04 | XMS REPORT | Continuity of Care Document ---
:1970 Author Organization [facility] t Address [address] [place] [address] Care Team Providers Name Role Phone Gin Anthony MA Attending Clinician Unavailable Guillermina Bernstein Attending Clinician Unavailable Octavio Vivar MD Attending Clinician LEO Attending Clinician Unavailable Leo JEFF Attending Clinician Ni Moon MD Attending Clinician Merchant JEFF Attending Clinician Shahbaz Rodriguez MD Attending Clinician Sonia Toney MD Attending Clinician Vasyl RN, E Attending Clinician Norman Boss MD Attending Clinician Kevin Newman MD Attending Clinician Olivia JEFF Attending Clinician Shane Attending Clinician Carito Nam MD Attending Clinician Andrea JEFF Attending Clinician Lavon JEFF Attending Clinician Doctor Unassigned, Name Attending Clinician Unavailable Henry PAC, S Attending Clinician Admitting Clinician Unavailable Dalila JEFF Admitting Clinician Andrea JEFF Admitting Clinician Payers Payer Name Policy Type Policy Effective Date Expiration Date Sour ce Number AARON NOEL/AARON [id number] 2020 [facility] SHIELDBCBS PPO 00:00:00 - Medical POS EPO Center [id number], [place] [address]LXF Problems Condition Condition Condition Status Onset Resolution Last Treating Co mments Source Name Details Category Date Date Treatment Clinician Date Black Black Disease Active [facility] 00 [place] Cirrhosis Cirrhosis Disease Active [facility] [place] Volume Volume Disease Active [facility] overload overload 10-24 [facility] 00 [place] Allergies, Adverse Reactions, Alerts Allergy Allergy Status Severity Reaction(s) Onset Inactive Treating Comm ents Source Name Type Date Date Clinician Ondanset Drug Active Rash [facility] Hcl Allergy 10-22 [facility] - (Pf) 00:00: Medical 00 [place] Social History Social Habit Start Date Stop Date Quantity Comments Source Sex Assigned At [facility] Tobacco use and 2020-10-23 2020-10-23 Never used [facility] - exposure 00:00:00 00:00:00 [facility] Alcohol intake 2020-10-23 2020-10-23 Ex-drinker [facility] es - 00:00:00 00:00:00 (finding) [facility] Smoking Status Start Date Stop Date Source Current some day smoker 2020-10-23 00:00:00 [facility] Medications Ordered Filled Start Stop Current Ordering Indication Dosage Frequency Signature Comments Components Source Medication Medication Date Date Medication? Clinician (SIG) Name Name spironolact 2021- Yes 100mg QD Take [address] [facility] 10-25 tablet [facility] - (ALDACTONE) 00:00: 23:59 (100 mg Me dical 100 MG 00 :00 total) by Center tablet mouth daily. lactulose 2020- No 20g Q.03520127 Take [address] [facility] (CHRONULAC) 10-24 [id number] by mouth 3 [facility] - 10 gram/15 15:10: 00:00 3D (three) Med ical mL (15 mL) 38 :00 times Center solution daily. rifAXIMin 2020- No 550mg Q.5D Take [address] 550 mg Tab 10-2408 mg by [facility] - 15:10: 00:00 mouth [...] (two) times daily. lactulose 2021- Yes 20g Q.75363185 Take [address] (CHRONULAC) 10-24 [id number] mLs (20 g [facility] - 10 gram/15 00:00: 23:59 3D total) by Sharmila green mL (15 mL) 00 :00 mouth 3 [...] 40mg Q.5D Take [address] e 10-24 02-07 tablet (40 [facility] - (PROTONIX) 00:00: 23:59 mg total) M edical 40 MG 00 :00 by mouth 2 Center tablet (two) times daily for 30 days. Vital Signs Vital Name Observation Time Observation Value Comments Source Systolic blood 2020-10-24 12:45:00 128 mm[Hg] [facility] Diastolic blood 2020-10-24 12:45:00 77 mm[Hg] [facility] Heart rate 2020-10-24 12:45:00 95 /min [facility] Body temperature 2020-10-24 12:45:00 36.78 Tamar [facility] Respiratory rate 2020-10-24 12:45:00 16 /min [facility] Oxygen saturation in 2020-10-24 12:45:00 99 /min [facility] Arterial blood by Medical Ce nter Pulse oximetry Body height 2020-10-22 18:07:00 162.6 cm [facility] Body weight 2020-10-22 18:07:00 88.14 kg [facility] BMI 2020-10-22 18:07:00 33.35 kg/m2 [facility] Procedures Procedure Date / Time Performed Performing Clinician Sour e US ABDOMEN LIMITED 2020-10-24 14:23:00 Merchant [facility] COMPREHENSIVE METABOLIC 2020-10-24 02:19:00 Eusebio Grace [facility] PROTHROMBIN TIME/INR 2020-10-24 02:19:00 [facility] CBC W/PLT COUNT & AUTO 2020-10-24 02:19:00 [facility] REPORT OF PROCEDURE - 2020-10-23 13:12:[address] [facility] ENDOSCOPY [facility] UPPER ENDOSCOPY 2020-10-23 09:39:00 Ruth Toney [facility] MAGNESIUM 2020-10-23 05:15:00 Merchant Silvio [facility] COMPREHENSIVE METABOLIC 2020-10-23 05:15:00 Grace, [facility] HEMOGLOBIN AND HEMATOCRIT 2020-10-23 05:14:00 Silvio Riggs [facility] PROTHROMBIN TIME/INR 2020-10-23 05:14:00 Sanjay [facility] HEPATITIS C PCR, 2020-10-23 05:14:[address] [facility] HEPATITIS C GENOTYPE 2020-10-23 05:14:00 Sanjay [facility] HEPATITIS PANEL, ACUTE 2020-10-23 05:14:00 Sanjay [facility] [id number]\, 2020-10-23 05:14:00 Sanjay [facility] ALPHA FETOPROTEIN (AFP), 2020-10-23 05:14:00 Sanjay [facility] TUMOR MARKER [facility] CERULOPLASMIN 2020-10-23 05:14:00 Sanjay [facility] FERRITIN 2020-10-23 05:14:00 aSnjay [facility] IRON, TIBC, % SAT. 2020-10-23 05:14:00 Sanjay [facility] (WITHOUT FERRITIN) [facility] B12 2020-10-23 05:14:00 Sanjay [facility] FOLATE, SERUM 2020-10-23 05:14:00 Sanjya [facility] RETICULOCYTE COUNT 2020-10-23 05:14:00 Sanjay [facility] ACTIN (SMOOTH MUSCLE) 2020-10-23 05:14:00 Sanjay [facility] - ANTIBODY, IGG [facility] ANTI-NUCLEAR ANTIBODY 2020-10-23 05:14:00 Sanjay [facility] (LUCAS) [facility] ANTI-MITOCHONDRIAL AB, 2020-10-23 05:14:00 Sanjay [facility] HEPATITIS B CORE 2020-10-23 05:14:00 Eusebio Grace [facility] s - ANTIBODY, TOTAL [facility] HEPATITIS A ANTIBODY, IGG 2020-10-23 05:14:00 Eusebio Grace [facility] MITOCHONDRIAL AB SCREEN 2020-10-23 05:14:00 Sanjay [facility] MITOCHONDRIAL AB TITER 2020-10-23 05:14:00 Sanjay [facility] CBC W/PLT COUNT & AUTO 2020-10-23 05:14:00 Merchant Silvio [facility] US ABDOMINAL WITH DOPPLER 2020-10-22 21:15:00 Merchant [facility] URINALYSIS W/ REFLEX 2020-10-22 17:23:00 [facility] SARS-COV2/RT-PCR ([facility] & 2020-10-22 15:22:00 [facility] - REF LABS) [facility] BLOOD CULTURE 2020-10-22 15:07:00 Merchant [facility] BASIC METABOLIC PANEL (7) 2020-10-22 14:07:00 Mandie Moon [facility] HEPATIC FUNCTION PANEL 2020-10-22 14:07:00 Sarai [facility] TROPONIN I 2020-10-22 14:07:00 Sarai [facility] CBC W/PLT COUNT & AUTO 2020-10-22 14:07:00 Sarai [facility] ECG 12-LEAD 2020-10-22 14:01:12 Unknown, Hl7 Doctor [facility] XR CHEST 1 VIEW 2020-10-22 13:46:00 Merchant Silvio [facility] PORTABLE/BEDSIDE Medical Center Plan of Care Planned Activity Planned Date Details Comments Source Future Scheduled 2020-10-17 DEPRESSION SCREENING [facility] - Test 00:00:00 (12+) [code = [facility] Center DEPRESSION SCREENING (12+)] Future Scheduled 2020-06-17 INFLUENZA VACCINE (#1) [facility]00 [code = INFLUENZA Medical Ce nter VACCINE (#1)] Future Scheduled [address] [facility] - Test 00:00:00 (procedure) [code = Medical Center 48610457] Future Scheduled [address] [facility] - Test 00:00:00 malignant neoplasm of Medica l Center cervix (procedure) [code = 301681508] Future Scheduled 1975 DTAP/TDAP/TD VACCINES [facility] - Test 00:00:00 (1 - Tdap) [code = Medical C enter DTAP/TDAP/TD VACCINES (1 - Tdap)] Future Scheduled [address] [facility] - Test 00:00:00 0-64 YRS (1 of 1 - Medical C enter PPSV23) [code = PNEUMOCOCCAL VACCINE 0-64 YRS (1 of 1 - PPSV23)] Future Scheduled [address] [facility] - Test 00:00:00 malignant neoplasm of Medica l Center breast (procedure) [code = 410450952] Future Scheduled [address] [facility] - Test 00:00:00 malignant neoplasm of Medica l Center colon (procedure) [code = 860755549] Encounters Start End Encounter Admission Attending Care Care Encounter Source Date/Time Date/Time Type Type Clinicians Facility Department ID 2020-10-13 2020-10-13 Patient Diane Fallon [id number] 00:00:00 00:00:00 Outreach E Pham [id number] [place] 4.2.7.2.686 [id number] [facility] 2020-10-01 2020-10-03 [facility] Mayurbhupendra [place] [facility] 1.2.840 .114 [id number] 14:36:00 10:48:00 Encounter Jordi Garcia [facility] [id number] .10 Cristofer Baker 4.2.7.2.686 [place] [id number] [facility] 109 ([facility]) 2020-09-29 2020-09-29 Patient Diane Fallon [id number] 00:00:00 00:00:00 Outreach E Pham [id number] [place] 4.2.7.2.686 [id number] 2020-09-25 2020-09-25 Transition Dar Lynn 1.2.840.114 [id number] 00:00:00 00:00:00 of Care Valerie Pham [id number] [place] 4.2.7.2.686 [id number] 2020-09-22 2020-09-24 [facility] Balta Nam [facility] 1.2.840. 114 [id number] 05:04:00 10:44:00 Encounter Andrea [facility] [id number] [place] 4.2.7.2.686 [place] [id number] [place] [address] ([facility]) 2020-06-30 2020-06-30 Emergency [facility] [id number] 14:48:00 18:31:00 Hugo Means 350.1.13.10 [place] 4.2.7.2.686 [place] [id number] 2019-06-11 2019-06-11 Orders Doctor NARENDRA 1.2.840.114 [id number] 00:00:00 00:00:00 Only Unassigned, STAR 350.1.13.10 [place] [facility] 4.2.7.2.686 [id number] 2019-05-11 2019-05-11 Emergency [facility] [id number] 10:42:22 12:29:00 Marianne Means [id number] [place] 4.2.7.2.686 [place] [id number] Results Test Description Test Time Test Comments Results Result Comments Source Hepatitis C genotype 2020-10-28 20:39:00 Test Item Value Reference Range Interpretation Comme nts HCV Genotype, 3 The method use d in this test is RT-PCR and LiPA (test code = reversehyb ridization (Line Probe) of the 5' 5772097) UTR and corereg ion of the HCV genome. The analytical perf ormance characteristics of thisassay have been determined by [facility]. The modifications h ave not beencleared or approved by the FDA. Thi s assay has beenvalidated pursuant to the CLIA regulations and isused for clinical pu rposes. For additional information, pl ease refer tohttp://educat ion.[employer] /faq/HCVGenotyp ing(This link id being provided for information al/educational purposes only.) MADDIE (test code = Performing Lab MADDIE) *QDID [facility] [address] [place] [address] Arnie Phillips MD [facility] Hospital[facility] (Smooth Muscle) Antibody, [id number] 01:39:00 Test Item Value Reference Interpretation Comments Range Anti-Smooth Muscle 23 U See Note: H Reference Range:<20 Ab (test code = NEGATI VE> OR ) = 20 POSITIVE Antibodies recognizing act in are the main componentof smo oth muscle antibodi es associated withautoimmune liver disease. Actin antibodie s arefound in approximately 7 5% of patients withautoimmune hepatitis (AIH) type 1, ixtvjvamfdqoh57 % of patients with autoimmune cholangitis,mary bi mately 30% of patients with primary biliarycirrhosi s, and approximate ly 2% of healthy people.High barb ues are closely correlated with AIH type 1. MADDIE (test code = Performing Lab MADDIE) [facility] [address] [place] [address] Wilder Ochoa MD, PhD, BEATRICE Lab Interpretation Abnormal (test code = 08168-7) [facility] Hospital[facility] - Routine (Right Venipuncture) 2020-10-27 18:00:00 Test Item Value Reference Range Interpretation Comments Result (test code = No growth in 5 days 6463-4) [facility] HospitalBLOOD [id number] 18:00:00 Test Item Value Reference Range Interpretation Comments CULTURE (BEAKER) (test No growth in 5 days code = 1095) ANTI-MITOCHONDRIAL AB, REFLEX TO [id number] 10:14:00 Test Item Value Reference Range Interpretation Comments SCAN RESULT (test code = 5848732) Anti-Mitochondrial Ab, reflex to [id number] 10:14:00Scan ResultQUEST DIAGNOSTIC INCORPORATEDValley Presbyterian HospitalMitochondrial Ab Screen 2020-10-25 12:18:00 Test Item Value Reference Range Interpretation Comments Anti-Mitocho NEGATIVE NEGATIVE This test was developed nd Abs (test and its analyti vasile code = performance 3312040) characteristics havebeen determined by [facility].It h as not been cleared or approved by FDA. This as say has been validatedp ursuant to the CLIA reg ulations and is used for clinical purposes. MADDIE (test Performing Lab code = MADDIE) [facility] [address] [place] [address] Wilder Ochoa MD, PhD, BEATRICE [facility] HospitalMitochondrial Ab [id number] 12:18:00 Test Item Value Reference Range Interpretation Comments Mitochondrial Ab TNP <1:20 Test Not Titer (test code = Performed . 6986113) Screening test Negative or Not Detected. Titer notperformed. MADDIE (test code = Performing Lab MADDIE) [place] [id number] [place] [address] Wilder Ochoa MD, PhD, BEATRICE [facility] HospitalCeruloplasmin2021-01-09 11:45:00 Test Item Value Reference Range Interpretation Comments Ceruloplasmin (test code 27 mg/dL 18-53 = 20191208) MADDIE (test code = MADDIE) Performing Lab *BARB [facility], [address] [place] [id number] Antonieta Small MD [facility] HospitalHeadventist [facility] C PCR, [id number] 22:54:00 Test Item Value Reference Range Interpretation Comments HCV PCR, Quantitative [id number] <15 IU/mL H (test code = 48571-6) MADDIE (test code = MADDIE) This test uses a Real-Time Polymerase Chain Reaction (RT-PCR) methodology and was performed using MARIXA Ampliprep/MARIXA TaqMan HCV test kit version 2.0 ([employer]). Reportable range for this assay is 15 - 100,000,000 IU per mL (1.18 - 8.00 Log IU/mL). Lab Interpretation (test Abnormal code = 05947-1) [facility] HospitalHEPATITIS C PCR, [id number] 22:54:00 Test Item Value Reference Range Interpretation Comments HCV NUMERIC RESULT (HYUNAKER) 279274 IU/mL <15 H (test code = 2700) This test uses a Real-Time Polymerase Chain Reaction (RT-PCR) methodology and was performed using [employer]IX[employer] Ampliprep/MARIXA TaqMan HCV test kit version 2.0 ([employer]).Reportable range for this assay is 15 - 100,000,000 IU per mL (1.18 - 8.00 Log IU/mL).U/S, ABDOMINAL, [id number] 17:32:00Labs to be ordered:->Body Fluid Culture (w/Gram Stain, C\T\S) Labs to be ordered:->Cell Count Labs to be ordered:->Glucose+LDH+Protein Labs to be ordered:->Cytology Reason for exam:->diagnostic para for new ascites in pt w/ cirrhosisREDWOOD MEMORIAL HOSPITALName: DWAIN ESPINOSA : 1970 Sex: FFINAL REPORT Limited abdominal ultrasound CLINICAL HISTORY: Ascites F INDINGS: A limited abdominal ultrasound was performed and only a trace amount of fluid was seen. Therefore a paracentesis was not performed. Signed: Alex Gonzalezort Verified Date/Time: 10/24/2020 17:32:34 Reading Location: [facility] P006J Ultrasound Reading Room US abdomen [id number] 17:32:00Interface, External Ris In - 10/24/2020 5:34 PM CSTFINAL REPORT Limited abdominal ultrasound CLINICAL HISTORY: Ascites FINDINGS: A limited abdominal ultrasound was performed and only a trace amount of fluid was seen. Therefore a paracentesis was not performed. Signed: Alex Gonzalez Verified Date/Time: 10/24/2020 17:32:34 Reading Location: [address] Ultrasound Reading Room [facility] 2020-10-24 03:23:00 Test Item Value Reference Range Interpretation Comments Protein, Total (test 4.7 6.0- 8.3 gm/dL L code = 2885-2) Albumin (test code = 1.7 g/dL 3.5-5 L 68895-6) Alkaline Phosphatase 114 U/L 40-150 (test code = 6768-6) Total Bilirubin (test 3.0 mg/dL 0.2-1.2 H code = 1975-2) Sodium (test code = 139 meq/L 753-563 3965-2) Potassium (test code 3.2 meq/L 3.5-5.1 L = 2823-3) Chloride (test code = 106 meq/L 98-107 2075-0) CO2 (test code = 27 meq/L 22-29 2027-9) BUN (test code = 12 mg/dL 7-21 3094-0) Creatinine (test code 0.78 mg/dL 0.57-1.25 = 2160-0) Glucose (test code = 127 mg/dL 70-105 H 2345-7) Calcium (test code = 7.0 mg/dL 8.4-10.2 L 52213-4) AST (test code = 114 U/L 5-34 H 1920-8) ALT (test code = 58 U/L 6-55 H 1742-6) EGFR (test code = 78 mL/min/1.73 [place] [address]-9) NOT ACCURATE CREATININE CLEARANCE IN PREDICTING GLOMERULAR FILTRATION RATE . ESTIMATED GFR I S NOT APPLICABLE FOR DIALYSIS PATIENTS. MADDIE (test code = MADDIE) Talent Program Manager ID - PIAYA LSpecimen slightly icteric Lab Interpretation Abnormal (test code = 01150-6) [facility] HospitalCOMPREHENSIVE METABOLIC [id number] 03:23:00 Test Item Value Reference Range Interpretation [...] S NOT APPLICABLE FOR DIALYSIS PATIEN TS. Talent Program Manager ID - PIAYA LSpecimen slightly ictericProthrombin time/[id number] 03:08:00 Test Item Value Reference Range Interpretation [...] valves. Lab Interpretation Abnormal (test code = 69849-7) [facility] HospitalPROTHROMBIN TIME/[id number] 03:08:00 Test Item Value Reference Range Interpretation [...] heart valves.CBC with platelet count + automated [id number] 02:45:00 Test Item Value Reference Range Interpretation [...] K/CU MM L MPV (test code = 18766-5) 13.0 fL 9.4-12.3 H nRBC (test code [...] 2801) Lab Interpretation (test code = Abnormal 73284-6) [facility] W/PLT COUNT & AUTO [id number] 02:45:00 Test Item Value Reference Range Interpretation [...] (BEAKER) (test code = 2801) ECG 12 [id number] 15:18:12Interface, External Ris In - 10/23/2020 3:18 PM CSTVentricular Rate 83 BPMAtrial Rate 83 BPMP-R Interval 110 msQRS Duration 76 msQ-T Interval 432 msQTC Calculation(Bazett) 507 msP [place] 61 degreesR [place] 28 degreesT [place] 34 degreesSinus rhythm with short PRLow voltage QRSProlonged QTAbnormal ECGNo previous ECGs availableConfirmed by MD Farnsworth Roberto ([id number]) on 10/23/2020 3:18:11 [facility]Fer[facility] 12:56:00 Test Item Value Reference Range Interpretation Comments Ferritin (test code = 71.00 ng/mL 5-275 2276-4) MADDIE (test code = MADDIE) Talent Program Manager ID - AAHAMID Lab Interpretation (test Normal code = 31649-7) [facility] HospitalFolate, [id number] 12:56:00 Test Item Value Reference Range Interpretation Comments Folate (test code = 12.30 ng/mL >=7.00 2284-8) MADDIE (test code = MADDIE) Talent Program Manager ID - AAHAMID Lab Interpretation (test Normal code = 94110-0) [facility] HospitalFERRITIN2021-01-07 12:56:00 Test Item Value Reference Range Interpretation Comments FERRITIN (BEAKER) (test code = 71.00 ng/mL 5.00-275.00 361) Talent Program Manager ID - SONNYIDFOLATE, [id number] 12:56:00 Test Item Value Reference Range Interpretation Comments FOLATE (BEAKER) (test code = 362) 12.30 ng/mL >=7.00 Talent Program Manager ID - GANESHHAMIDAnti-Nuclear Antibody (LUCAS)2020-10-23 10:30:00 Test Item Value Reference Range Interpretation Comments LUCAS (test code = 69439-5) Negative Negative MADDIE (test code = MADDIE) Test performed by IFA method.Test performed by IFA method. Lab Interpretation (test Normal code = 01328-7) [facility] HospitalANTI-NUCLEAR ANTIBODY (LUCAS)2020-10-23 10:30:00 Test Item Value Reference Range Interpretation Comments ANTI-NUCLEAR ANTIBODY (LUCAS) (BEAKER) Negative Negative (test code = 418) Test performed by IFA method.Test performed by IFA method.Hepatitis panel, acute 2020-10-23 10:06:00 Test Item Value Reference Range Interpretation Comments Hep A IgM (test code = Nonreactive Nonreactive 69696-1) Hep B C IgM (test code = Nonreactive Nonreactive 83157-7) Hepatitis C Ab (test Reactive Nonreactive A code = 74704-1) HBsAg Screen (test code Nonreactive Nonreactive = 5195-3) MADDIE (test code = MADDIE) Talent Program Manager ID - HOUST[place] M Lab Interpretation (test Abnormal code = 11764-7) [facility] HospitalHEPATITIS PANEL, [id number] 10:06:00 Test Item Value Reference Range Interpretation Comments HEPATITIS A IGM ANTIBODY (BEAKER) Nonreactive Nonreactive (test code = 498) HEPATITIS B CORE IGM ANTIBODY Nonreactive Nonreactive (BEAKER) (test code = 645) HEPATITIS C ANTIBODY (BEAKER) Reactive Nonreactive A (test code = 367) HEPATITIS B SURFACE ANTIGEN (2) Nonreactive Nonreactive (BEAKER) (test code = 2585) Talent Program Manager ID - HOUSTON MVitamin [id number] 09:44:00 Test Item Value Reference Range Interpretation Comments Vitamin B12 (test code = 1494 pg/mL 213-816 H 2132-9) MADDIE (test code = MADDIE) Talent Program Manager ID - [place]ST[place] M Lab Interpretation (test Abnormal code = 06118-4) [facility] HospitalVITAMIN [id number] 09:44:00 Test Item Value Reference Range Interpretation Comments VITAMIN B12 (BEAKER) (test code = 1494 pg/mL 213-816 H 774) Talent Program Manager RIGOBERTO - [place] MAlpha fetoprotein (AFP), tumor [id number] 08:27:00 Test Item Value Reference Range Interpretation Comments Alpha-Fetoprotein (test <2.0 <10.0 ng/mL code = 1834-1) MADDIE (test code = MADDIE) Talent Program Manager RIGOBERTO CONRAD Lab Interpretation (test Normal code = 13005-5) [facility] HospitalALPHA FETOPROTEIN (AFP), TUMOR [id number] 08:27:00 Test Item Value Reference Range Interpretation Comments ALPHA-FETOPROTEIN (BEAKER) (test code < ng/mL <10.0 = 1094) Talent Program Manager RIGOBERTO - [place] MHepatitis A antibody, [id number] 07:42:00 Test Item Value Reference Range Interpretation Comments Hep A IgG (test code = Reactive Nonreactive A 72814-5) MADDIE (test code = MADDIE) Talent Program Manager RIGOBERTO CONRAD Lab Interpretation (test Abnormal code = 60929-7) [facility] HospitalHEPATITIS A ANTIBODY, [id number] 07:42:00 Test Item Value Reference Range Interpretation Comments HEPATITIS A IGG ANTIBODY (BEAKER) Reactive Nonreactive A (test code = 2797) Talent Program Manager ID - [place] MCOMPREHENSIVE METABOLIC [id number] 07:41:00 Test Item Value Reference Range Interpretation [...] S NOT APPLICABLE FOR DIALYSIS PATIEN TS. Talent Program Manager ID - [place] MSpecimen slightly [id number] 07:11:00 Test Item Value Reference Range Interpretation Comments Magnesium (test code = 1.8 mg/dL 1.6-2.6 74093-1) MADDIE (test code = MADDIE) Talent Program Manager ID - [place] M Lab Interpretation (test Normal code = 26403-4) [facility] HospitalMAGNESIUM2021-01-07 07:11:00 Test Item Value Reference Range Interpretation Comments MAGNESIUM (BEAKER) (test code = 1.8 mg/dL 1.6-2.6 627) Talent Program Manager ID - [place]ST[place] MHepatitis B core antibody, [id number] 07:01:00 Test Item Value Reference Range Interpretation Comments Hep B Core Total Ab Nonreactive Nonreactive (test code = 62365-3) MADDIE (test code = MADDIE) Talent Program Manager ID - HOUST[place] M Lab Interpretation (test Normal code = 08452-3) [facility], [id number] 07:01:00 Test Item Value Reference Range Interpretation Comments HEPATITIS B CORE TOTAL ANTIBODY Nonreactive Nonreactive (BEAKER) (test code = 497) Talent Program Manager ID - HOU[place] Rosa M, TIBC, % sat. (without ferritin)2020-10-23 06:37:00 Test Item Value Reference Range Interpretation Comments Iron (test code = 2498-4) 129.0 ug/dL 40-160 TIBC (test code = 2500-7) 178 ug/dL 250-450 L Iron % Saturation (test 72 % 20-55 H code = 2502-3) MADDIE (test code = MADDIE) Talent Program Manager ID - [place] M Lab Interpretation (test Abnormal code = 24521-2) [facility], [facility], % SAT. (WITHOUT FERRITIN)2020-10-23 06:37:00 Test Item Value Reference Range Interpretation Comments IRON (BEAKER) (test code = 547) 129.0 ug/dL 40.0-160.0 TOTAL IRON BINDING CAPACITY 178 ug/dL 250-450 L (BEAKER) (test code = 769) IRON % SATURATION (2) (BEAKER) 72 % 20-55 H (test code = 2590) Talent Program Manager ID - [place] GSgnim-7-[id number] 06:36:00 Test Item Value Reference Range Interpretation Comments A-1 Antitrypsin (test code 102.40 mg/dL 90-200 = 1825-9) MADDIE (test code = MADDIE) Talent Program Manager ID - [place] M Lab Interpretation (test Normal code = 80821-0) [facility]ALPHA-1-[id number] 06:36:00 Test Item Value Reference Range Interpretation Comments ALPHA-1 ANTITRYPSIN (BEAKER) 102.40 mg/dL 90.00-200.00 (test code = 502) Talent Program Manager ID - [place] MPROTHROMBIN TIME/[id number] 06:21:00 Test Item Value Reference Range Interpretation [...] is2.5-3.5 for patients wiht mechanical heart valves.Reticulocyte [id number] 05:50:00 Test Item Value Reference Range Interpretation Comments % Retic (test code = 4.6 % 0.5-1.7 H 87986-5) MADDIE (test code = MADDIE) Talent Program Manager ID - [id number] Lab Interpretation (test Abnormal code = 74247-5) [facility] HospitalRETICULOCYTE [id number] 05:50:00 Test Item Value Reference Range Interpretation Comments RETICULOCYTE COUNT PCT (BEAKER) (test 4.6 % 0.5-1.7 H code = 575) Talent Program Manager ID - [id number] and [id number] 05:49:00 Test Item Value Reference Range Interpretation Comments Hemoglobin (test code = 786-4) 9.0 11.2- 15.7 GM/DL L Hematocrit (test code = 4544-3) 30.0 % 34.1-44.9 L Lab Interpretation (test code = Abnormal 79297-5) [facility] HospitalCBC W/PLT COUNT & AUTO [id number] 05:49:00 Test Item Value Reference Range Interpretation [...] (BEAKER) (test code = 2801) HEMOGLOBIN AND [id number] 05:49:00 Test Item Value Reference Range Interpretation Comments HEMOGLOBIN (BEAKER) (test code = 9.0 GM/DL 11.2-15.7 L 410) HEMATOCRIT (BEAKER) (test code = 30.0 % 34.1-44.9 L 411) U/S, ABDOMINAL, WITH [id number] 21:58:00Reason for exam:->ascites, cirrhosisRED[facility] : 1970 Sex: FFINAL [...] Verified Date/Time: 10/22/2020 21:58:54 US abdominal with [id number] 21:58:00Interface, External Ris In - 10/23/2020 2:18 [...] Mila Richardson MDReport Verified Date/Time: 10/22/2020 21:58:54 [facility]Asymptomatic ONLY[facility]2020-10-22 20:15:00 Test Item Value Reference Range Interpretation Comments SARS-COV2/RT-PCR Negative Not Detected, (test code = Negative, See 22298-9) external report for linked test SARS-COV-2 [facility] PERFORMING LAB (test code = 24259-9) MADDIE (test code = Negative result for [...] of the Act. Fact Sheet for Healthcare Providers:https://www.[employer] idel.INFIMET/sites/default/f christina/product/documents/F act_Sheet_HC_Providers_L ery_DMID-RxD-9.pdf Fact Sheet for Healthcare Patients:https://www.PerformYard.INFIMET/sites/default/fi les/product/documents/Fa ct_Sheet_Patients_Lyra_S ARS-CoV-2.pdf Performing Laboratory:[place] [address] [place] [address] [facility] ([facility])2020-10-22 20:15:00 Test Item Value Reference Range Interpretation Comments SARS-COV2/RT-PCR (test Negative Not Detected, Negative, code = 1250662) See external report for linked test SARS-COV-2 PERFORMING LAB [facility] (test code = 5136552) Negative result for this test determines that [...] 564(g) of the Act.Fact Sheet for Healthcare Providers:https://www.Battle[employer].INFIMET/sites/default/files/product/documents/Fact_Shee b_TK_Rsiasywxp_Eiey_FUGD-AyW-1.pdfFact Sheet for Healthcare Patients:https://www.Battlefy.com/sites/default/files/product/ documents/Cflt_Tjund_Ewxndreh_Fean_ZOFC-RaE-4.pdfPerforming Laboratory:[facility], [place] [address]Wefloazldj w/Microscopic + Reflex to [id number] 17:46:00 Test Item Value Reference Range Interpretation Comments Color, UA (test code = Yellow 5778-6) Clarity, UA (test code = Hazy 5767-9) Specific Bowdle, UA (test 1.024 1.001-1.035 code = 5811-5) pH, UA (test code = 5.5 5.0-8.0 5803-2) Protein, UA (test code = 20 mg/dL Negative A 33156-4) Glucose, UA (test code = Negative Negative 365) Ketones, UA (test code = Negative Negative 2514-8) Bilirubin, UA (test code = Negative Negative 25565-0) Blood, UA (test code = Small Negative A 41661-7) Nitrite, UA (test code = Negative Negative 5802-4) Leukocytes, UA (test code Negative Negative = 5799-2) Urobilinogen, UA (test 0.2 mg/dL 0.2-1 code = 88280-2) RBC, UA (test code = 1 /HPF 70196-2) WBC, UA (test code = 4 /HPF 5821-4) Mucus (test code = 8247-9) Rare Squam Epithel, UA (test 9 /HPF code = 01077-3) Specimen Source (test code = 2795) MADDIE (test code = MADDIE) Talent Program Manager ID - tech Lab Interpretation (test Abnormal code = 38138-3) [facility]UR[facility]IS W/ REFLEX URINE [id number] 17:46:00 Test Item Value Reference Range Interpretation [...] = 516) SOURCE(BEAKER) (test code = 2795) Talent Program Manager ID - techRAD, CHEST, 1 VIEW, NON [id number] 15:35:00Reason for exam:->abd painShould this be performed at the bedside?->Yes [facility] : 1970 Sex: FFINAL REPORT CHEST AP PORTABLE History provided: Abdominal pain Heart size magnified by projection. Lungs grossly clear and vascularity normal. Signed: Huang Garciaort Verified Date/Time: 10/22/2020 15:35:51 Reading Location: [facility] Radiology Reading Room XR chest 1 view portable / [id number] 15:35:00Interface, External Ris In - 10/22/2020 3:38 PM CSTFINAL REPORT CHEST AP PORTABLE History provided: Abdominal pain Heart size magnified by projection. Lungs grossly clear and vascularity normal. Signed: Huang Garcia Verified Date/Time: 10/22/2020 15:35:51 Reading Location: [facility] Radiology [facility] [place]2020-10-22 14:52:00 Test Item Value Reference Range Interpretation Comments Troponin I (test code = 0.01 ng/mL 0-0.03 18855-3) MADDIE (test code = MADDIE) Troponin I [...] ADMIN Lab Interpretation (test Normal code = 06210-6) [facility] HospitalTR[facility] [id number] 14:52:00 Test Item Value Reference Range Interpretation [...] failure, acidosis, acute neurological disease, and persistent tachyarrhythmia.Talent Program Manager ID - ADMINBasic metabolic panel (Na, K+, Cl, CO2, Glu, Ca, BUN, Cr)2020-10-22 14:48:00 Test Item Value Reference Range Interpretation Comments Sodium (test code = 141 meq/L 153-029 5378-2) Potassium (test code 3.1 meq/L 3.5-5.1 L = 2823-3) Chloride (test code 107 meq/L 98-107 = 2075-0) CO2 (test code = 30 meq/L 22-29 H 2027-9) BUN (test code = 12 mg/dL 7-21 3094-0) Creatinine (test 0.65 mg/dL 0.57-1.25 code = 2160-0) Glucose (test code = 90 mg/dL 70-105 2345-7) Calcium (test code = 7.0 mg/dL 8.4-10.2 L 18016-9) EGFR (test code = 96 mL/min/1.73 [place] [address]-5) m NOT ACCURATE CREATININE CLEARANCE IN PREDICTING GLOMERULAR FILTRATION RATE . ESTIMATED GFR I S NOT APPLICABLE FOR DIALYSIS PATIENTS. MADDIE (test code = Talent Program Manager ID - MADDIE) ADMINSpecimen slightly icteric Lab Interpretation Abnormal (test code = 35595-0) [facility] HospitalLiver [id number] 14:48:00 Test Item Value Reference Range Interpretation Comments Protein, Total (test 4.6 6.0- 8.3 gm/dL L code = 2885-2) Albumin (test code = 1.7 g/dL 3.5-5 L 52572-6) Total Bilirubin (test 3.5 mg/dL 0.2-1.2 H code = 1974-2) Bilirubin, Direct (test 1.7 mg/dL 0.1-0.5 H code = 1967-7) Alkaline Phosphatase 106 U/L 40-150 (test code = 6768-6) AST (test code = 132 U/L 5-34 H 1920-8) ALT (test code = 61 U/L 6-55 H 1742-6) MADDIE (test code = MADDIE) Talent Program Manager ID - ADMINSpecimen slightly icteric Lab Interpretation Abnormal (test code = 99792-3) [facility] HospitalBASI METABOLIC [id number] 14:48:00 Test Item Value Reference Range Interpretation [...] S NOT APPLICABLE FOR DIALYSIS PATIEN TS. Talent Program Manager ID - ADMINSpecimen slightly ictericHEPATIC FUNCTION [id number] 14:48:00 Test Item Value Reference Range Interpretation [...] code = 61 U/L 6-55 H 347) Talent Program Manager ID - ADMINSpecimen slightly ictericCBC W/PLT COUNT & AUTO [id number] 14:28:00 Test Item Value Reference Range Interpretation [...] % 0-1 PERCENT (BEAKER) (test code = 0948)
[2020-11-22] MEDS ORDERED: D50W 50 ML IV ONE (06:39)
[2020-11-22] MEDS ORDERED: NA CHLORIDE 0.9% 500 ML ONE (06:39)
[2020-11-22 06:40] LABS: Basophils % 0.4 % (0-1.3); Hematocrit 29.8 % (36.0-45.0); MPV 9.7 fL (7.6-11.3); RBC Red Blood Cell Count 3.38 M/uL (3.86-4.86)
[2020-11-22 06:47] LABS: Protime INR 1.5
[2020-11-22 07:07] LABS: ALT/SGPT 57 U/L (12-78); AST/SGOT 107 U/L (15-37); Albumin 1.6 g/dL (3.4-5.0); Alkaline Phosphatase 131 U/L (45-117); Amylase 40 U/L (25-115); BUN Blood Urea Nitrogen 16 mg/dL (7-18); Bicarbonate 28 mmol/L (21-32); Bilirubin Direct 2.2 mg/dL (0-0.2); Bilirubin Total 4.2 mg/dL (0.2-1.0); CKMB Creatine Kinase MB 4.3 ng/mL (0.3-3.6); Creatine Phosphokinase 297 U/L (26-192); Glucose Level 72 mg/dL (74-106); Lipase 196 U/L (73-393); Potassium 3.2 mmol/L (3.5-5.1); Protein, Total 5.2 g/dL (6.4-8.2); Sodium Level 147 mmol/L (136-145); Troponin (Emerg Dept Use Only) < 0.02 ng/mL (0.0-0.045)
[2020-11-22 07:10] LABS: Barbiturates NEGATIVE (NEGATIVE); Benzodiazepines NEGATIVE (NEGATIVE); Cocaine NEGATIVE (NEGATIVE); METHAMPHETAM POSITIVE (NEGATIVE); Methadone NEGATIVE (NEGATIVE); Opiates NEGATIVE (NEGATIVE); Phencyclidine NEGATIVE (NEGATIVE); THC Cannibis NEGATIVE (NEGATIVE)
[2020-11-22 07:15] LABS: Urine Blood 2+ (NEG); Urine Glucose NEGATIVE (NEG); Urine Protein NEGATIVE (NEG); Urine Specific Gravity 1.025 (1.005-1.030)
[2020-11-22 08:01] LABS: Urine Bacteria <20 /HPF (<20); Urine RBC <5 /HPF (NONE SEEN)
[2020-11-22 08:02] LABS: Calcium Oxalate Crystals- Ur FEW (NONE SEEN)
--- NOTE | 2020-11-22 08:09 | RAD REPORT ---
EXAM DESCRIPTION: CT - Head Brain Wo Cont - 11/22/2020 7:58 am CLINICAL HISTORY: AMS;Confused, transient alteration of awareness COMPARISON: Head Brain Wo Cont dated 11/02/2020 TECHNIQUE: Axial 5 mm thick images of the head were obtained without IV contrast. All CT scans are performed using dose optimization technique as appropriate and may include automated exposure control or mA/KV adjustment according to patient size. FINDINGS: No intracranial hemorrhage, mass, edema or shift of mid-line structures. No acute infarcti on changes seen. No cortical edema or sulcal effacement identifiable. Exam has motion degradation aff ects on the anderson matter - white matter differentiation. Ventricles are normal and similar in appearan ce to the November 02 study. Mastoid air cells and visualized portions of the paranasal sinuses are clear. No acute bony findings. IMPRESSION: No acute intracranial finding identifiable. Motion degraded study does not appear different from the November 02 study.
--- NOTE | 2020-11-22 08:12 | ER ---
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 WITH HISTORY OF BACTERIAL INFECTION IN LIVER, AMMONIA WAS ELEVATED LAST TIME. Coronavirus screen: At this time, unable to obtain information related to travel outside the [place] Ebola Screen: No symptoms or risks identified at this time. Initial Sepsis Screen: Does the patient meet any 2 criteria? Altered Mental Status. HR > 90 bpm. Does the patient have a suspected source of infection?. Risk Assessment: Do you want to hurt yourself or someone else? Patient reports no desire to harm self or others. Onset of symptoms is unknown. 06:06 Method Of Arrival: EMS: [facility] rv 06:06 Acuity: SUDHA 2 rv 06:08 Acuity: SUDHA 2 lp1 Triage Assessment: 06:10 General: Appears obese, Behavior is combative, drowsy, restless, uncooperative. Pain: rv Unable to use pain scale. Patient is disoriented. EENT: No signs and/or symptoms were reported regarding the EENT system. Neuro: Level of Consciousness is confused. Cardiovascular: Patient's skin is warm and dry. Rhythm is sinus tachycardia. Respiratory: Airway is patent Respiratory effort is even, unlabored. Derm: Skin is intact. Musculoskeletal: Swelling present in right leg and left leg. Historical: - Allergies: 06:06 PENICILLINS; lp1 06:06 Zofran; lp1 - Home Meds: 06:06 Lactulose Oral [Active]; lp1 - PMHx: 06:06 Cirrhosis; COLON CA; lp1 - PSHx: 06:06 Unable to obtain; lp1 - Immunization history:: Adult Immunizations unknown. - Social history:: Smoking status: unknown. - Family history:: not pertinent. - Hospitalizations: : No recent hospitalization is reported. Screenin:12 Abuse screen: Denies threats or abuse. Denies injuries from another. Nutritional rv screening: No deficits noted. Tuberculosis screening: No symptoms or risk factors identified. Fall Risk None identified. Assessment: 07:00 Reassessment: RECD REPORT FROM RODRIGO MCINTOSH. 50YO HF P/W AMS FROM HOME, H/O CIRRHOSIS. bp AMMONIA GROSSLY ABNORMAL. WELCH IN PLACE AND DRAINING TO GRAVITY. Neuro: Level of Consciousness is confused, obtunded, Oriented to none. 07:55 Reassessment: Pt to CT via stretcher with DAY[facility] residential life director. jl7 08:10 Reassessment: Dr. Pineda at bedside to assess pt. jl7 09:20 Reassessment: Pt to CT with DAY[facility] residential life director. jl7 09:30 Reassessment: Administered lactulose PO via slow syringe feed, pt able to swallow and jl7 keep lactulose down at this time. 10:30 Reassessment: Patient appears in no apparent distress at this time. No changes from 7 previously documented assessment. 12:00 Reassessment: Patient appears in no apparent distress at this time. No changes from 7 previously documented assessment. 14:00 Reassessment: VO for fecal management system placement and lactulose enema received. jl7 Vital Signs: 06:06 BP 156 / 97; Pulse 110; Resp 18; Temp 97.6; Pulse Ox 100% ; Weight 90.72 kg; rv 07:00 BP 186 / 103; Pulse 108; Resp 14; Temp 97.4; Pulse Ox 97% ; bp 09:30 BP 163 / 101; Pulse 106; Resp 14; Temp 97.9; Pulse Ox 98% ; jl7 12:56 BP 178 / 114; Pulse 115; Resp 17 S; Pulse Ox 99% on R/A; ca1 15:15 BP 150 / 105; Pulse 110; Resp 19; Temp 98.2; Pulse Ox 100% ; ca1 ED Course: 06:00 Patient arrived in ED. am2 06:06 Meng Petit, RN is Primary Nurse. rv 06:07 Arm band placed on. lp1 06:07 Patient has correct armband on for positive identification. Placed in gown. Bed in low lp1 position. Side rails up X2. 06:09 Triage completed. lp1 06:11 Initial lab(s) drawn, by ED staff, sent to lab. Welch cath inserted, using sterile rv technique, 16 Fr., by nm, balloon inflated, to gravity drainage, urine specimen collected. Inserted saline lock: 20 gauge in left hand, using aseptic technique. Blood collected. 06:30 Parth Parra MD is Attending Physician. 7 06:44 Inserted saline lock: 20 gauge in right hand, using aseptic technique. rv 06:55 Chest Single View XRAY In Process Unspecified. EDMS 07:00 granite installer on. Pulse ox on. NIBP on. Warm blanket given. jl7 07:15 Attending Physician role handed off by Parth Parra MD rn 07:15 Geraldo Yates MD is Attending Physician. rn 07:58 CT Head Brain wo Cont In Process Unspecified. EDMS 08:11 Bhavesh Pineda DO is Hospitalizing Provider. rn 08:59 CT Abd/Pelvis - IV Contrast Only In Process Unspecified. EDMS 15:42 No provider procedures requiring assistance completed. Patient admitted, IV remains in jl7 place. intact, No redness/swelling at site. Administered Medications: 06:40 Drug: D50W 50 ml Route: IVP; Site: left hand; rv 10:01 Follow up: Response: No adverse reaction; Blood sugar is elevated jl7 07:20 Not Given (canceled): NS 0.9% (30 ml/kg) 30 ml/kg IV at bolus once; Sepsis Protocol rn 09:39 Drug: Lactulose 30 grams Volume: 45 ml; Route: PO; jl7 15:20 Follow up: Response: No adverse reaction bp 09:48 Drug: Zofran (Ondansetron) 4 mg Route: IVP; Site: right wrist; jl7 15:20 Follow up: Response: Nausea is decreased bp 09:55 Drug: Cipro 400 mg Volume: 200 ml; Route: IVPB; Infused Over: 60 mins; Site: right jl7 wrist; 15:20 Follow up: IV Status: Completed infusion; IV Intake: 200ml bp 09:55 Drug: Flagyl 500 mg Volume: 100 ml; Route: IVPB; Rate: 200 ml/hr; Infused Over: 30 jl7 mins; Site: right wrist; 15:19 Follow up: IV Status: Completed infusion; IV Intake: 100ml bp 15:00 Drug: Lactulose 200 grams Route: DE; jl7 15:37 Follow up: Response: Other; fecal management system remains in place with medication at jl7 transfer to floor Intake: 15:19 IV: 100ml; Total: 100ml. bp 15:20 IV: 200ml; Total: 300ml. bp Output: 06:59 Urine: 350ml (Welch); Total: 350ml. rv Outcome: 08:12 Decision to Hospitalize by Provider. rn 15:42 Admitted to Tele accompanied by tech, via stretcher, room 201, with chart, Report jl7 called to DAYNA Booth 15:42 Condition: stable 15:42 Discharge instructions given to pt altered at this time. 16:11 Patient left the ED. eb Signatures: Dispatcher [employer] EDMS Geraldo Yates MD MD rn Pena, Laura RN RN lp1 Mary Jane Jones RN RN jl7 Bhargavi Jose Brian RN RN Ariana Sales eb Meng Petit RN RN rv Lisa Cleaning RN RN ca1 Parth Parra MD MD 7 Corrections: (The following items were deleted from the chart) 06:46 06:30 D50W 50 ml IVP in left hand rv rv
--- NOTE | 2020-11-22 08:12 | EDPHYS ---
Physician Documentation [facility] Name: Lorena Hansen Age: 50 yrs Sex: Female : 1970 Arrival Date: 11/22/2020 Time: 06:00 Bed 3 Private MD: ED Physician Geraldo Yatse HPI: 11/22 07:31 This 50 yrs old Female presents to ER via EMS with complaints of Altered rn Mental Status. 07:31 The patient presents with confusion, decreased responsiveness. Onset: The rn symptoms/episode began/occurred at an unknown time. Possible causes: unknown. Current symptoms: In the emergency department the patient's symptoms are unchanged from the initial presentation. The patient has experienced similar episodes in the past. It is unknown whether or not the patient has recently seen a physician. called 911 for AMS and difficulty waking her up, identical to previous episodes of confusion and hepatic encephalopathy. Not sure if compliant with lactulose. denies any other complaints, no trauma, no fever. . Historical: - Allergies: 06:06 PENICILLINS; lp1 06:06 Zofran; lp1 - Home Meds: 06:06 Lactulose Oral [Active]; lp1 - PMHx: 06:06 Cirrhosis; COLON CA; lp1 - PSHx: 06:06 Unable to obtain; lp1 - Immunization history:: Adult Immunizations unknown. - Social history:: Smoking status: unknown. - Family history:: not pertinent. - Hospitalizations: : No recent hospitalization is reported. ROS: 07:31 Unable to obtain ROS due to altered mental status. rn Exam: 07:31 Constitutional: Overweight female, no acute distress, somnolent, moans to stimulation rn Head/Face: Normocephalic, atraumatic. Eyes: Pupils equal round and reactive to light ENT: dry MM Cardiovascular: Tachycardic, regular Respiratory: No increased work of breathing, no retractions or nasal flaring. Abdomen/GI: soft, no peritoneal signs, no discoloration Skin: Warm, dry MS/ Extremity: Pulses equal, no cyanosis. 2+ pitting edema bilateral lower ext Neuro: Somnolent, moves all 4 ext to painful stimuli and spont while sleeping, moans to stimuli. Vital Signs: 06:06 BP 156 / 97; Pulse 110; Resp 18; Temp 97.6; Pulse Ox 100% ; Weight 90.72 kg; rv 07:00 BP 186 / 103; Pulse 108; Resp 14; Temp 97.4; Pulse Ox 97% ; bp 09:30 BP 163 / 101; Pulse 106; Resp 14; Temp 97.9; Pulse Ox 98% ; jl7 12:56 BP 178 / 114; Pulse 115; Resp 17 S; Pulse Ox 99% on R/A; ca1 15:15 BP 150 / 105; Pulse 110; Resp 19; Temp 98.2; Pulse Ox 100% ; ca1 MDM: 07:15 Patient medically screened. rn 08:06 Differential Diagnosis: CVA, electrolyte abnormality, intracranial bleed, overdose, rn UTI, volume depletion, hepatic encephalopathy. Data reviewed: vital signs, nurses notes, lab test result(s), radiologic studies, CT scan, plain films, and as a result, I will admit patient. Counseling: I had a detailed discussion with the patient and/or guardian regarding: the historical points, exam findings, and any diagnostic results supporting the discharge/admit diagnosis, lab results, radiology results, the need for further work-up and treatment in the hospital. Response to treatment: There is no appreciated change of the patient's symptoms at this time, and as a result, I will admit patient. Admission orders: after a detailed discussion of the patient's condition and case, the admit orders are written by me. ED course: Pt with hepatic encephalopathy, neg procal, normal WBC, will admit to Dr. Pineda for AMS and hepatic encephalopathy. If cannot tolerate oral lactulose will given rectal lactulose. . 11/22 06:16 Order name: Amylase, Serum rr5 11/22 06:16 Order name: Basic Metabolic Panel; Complete Time: 07:18 rr5 11/22 06:16 Order name: Blood Culture Adult (2) rr5 11/22 06:16 Order name: CBC with Diff; Complete Time: 07:18 rr5 11/22 06:16 Order name: Ckmb; Complete Time: 07:18 rr5 11/22 06:16 Order name: CPK; Complete Time: 07:18 rr5 11/22 06:16 Order name: Lactate; Complete Time: 07:18 rr5 11/22 06:16 Order name: LFT's; Complete Time: 07:18 rr5 11/22 06:16 Order name: Lipase; Complete Time: 07:18 rr5 02 06:16 Order name: Procalcitonin; Complete Time: 07:31 rr5 11/22 06:16 Order name: Protime (+inr); Complete Time: 07:18 rr5 11/22 06:16 Order name: Ptt, Activated; Complete Time: 07:18 rr5 11/22 06:16 Order name: Troponin (emerg Dept Use Only); Complete Time: 07:18 rr5 11/22 06:16 Order name: Urine Microscopic Only; Complete Time: 08:12 rr5 11/22 06:16 Order name: Chest Single View XRAY; Complete Time: 09:32 rr5 11/22 06:16 Order name: AMMONIA; Complete Time: 07:18 rr5 11/22 06:16 Order name: Amylase; Complete Time: 07:18 EDMS 11/22 06:21 Order name: UDS; Complete Time: 07:18 rv 11/22 06:27 Order name: ETOH Level rr5 11/22 06:31 Order name: Glucose, Ancillary Testing; Complete Time: 07:18 EDMS / 06:34 Order name: Urine Dipstick--Ancillary (enter results) eb 11/22 06:35 Order name: Urine Dipstick-Ancillary; Complete Time: 07:18 EDMS / 07:19 Order name: CT Head Brain wo Cont; Complete Time: 08:12 rn 11/22 07:35 Order name: SARS-COV-2 RT PCR; Complete Time: 07:57 EDMS 11/22 10:04 Order name: Glucose, Ancillary Testing EDMS 11/22 10:32 Order name: Lactate Sepsis 2 HR Follow-up EDMS / 13:30 Order name: Blood Culture EDMS / 15:37 Order name: Glucose, Ancillary Testing EDMS 11/22 06:16 Order name: Accucheck; Complete Time: 06:21 rr5 11/22 06:16 Order name: Cardiac monitoring; Complete Time: 06:21 rr5 11/22 06:16 Order name: EKG - Nurse/Tech; Complete Time: 06:21 rr5 11/22 06:16 Order name: IV Saline Lock - Large Bore; Complete Time: 06:21 rr5 11/22 06:16 Order name: Labs collected and sent; Complete Time: 06:21 rr5 11/22 06:16 Order name: O2 Per Protocol; Complete Time: 06:21 rr5 11/22 06:16 Order name: O2 Sat Monitoring; Complete Time: 06:21 rr5 11/22 06:16 Order name: Urine Dipstick-Ancillary (obtain specimen); Complete Time: 06:21 rr5 11/22 07:05 Order name: Henry; Complete Time: 07:05 5 11/22 08:15 Order name: CT Abd/Pelvis - IV Contrast Only; Complete Time: 09:32 rn 11/22 09:46 Order name: Glucose Level; Complete Time: 09:57 rn Administered Medications: 06:40 Drug: D50W 50 ml Route: IVP; Site: left hand; rv 10:01 Follow up: Response: No adverse reaction; Blood sugar is elevated jl 07:20 Not Given (canceled): NS 0.9% (30 ml/kg) 30 ml/kg IV at bolus once; Sepsis Protocol rn 09:39 Drug: Lactulose 30 grams Volume: 45 ml; Route: PO; 7 15:20 Follow up: Response: No adverse reaction bp 09:48 Drug: Zofran (Ondansetron) 4 mg Route: IVP; Site: right wrist; jl7 15:20 Follow up: Response: Nausea is decreased bp 09:55 Drug: Cipro 400 mg Volume: 200 ml; Route: IVPB; Infused Over: 60 mins; [facility]; 15:20 Follow up: IV Status: Completed infusion; IV Intake: 200ml bp 09:55 Drug: Flagyl 500 mg Volume: 100 ml; Route: IVPB; Rate: 200 ml/hr; Infused Over: 30 jl7 mins; Site: right wrist; 15:19 Follow up: IV Status: Completed infusion; IV Intake: 100ml bp 15:00 Drug: Lactulose 200 grams Route: CO; 7 15:37 Follow up: Response: Other; fecal management system remains in place with medication at 7 transfer to floor Disposition: 11/22/20 08:12 Hospitalization ordered by Bhavesh Pineda for Inpatient Admission. Preliminary diagnosis are Hepatic encephalopathy, Altered mental status, unspecified, Unspecified cirrhosis of liver. - Bed requested for Telemetry/MedSurg (Inpatient). - Status is Inpatient Admission. eb - Condition is Stable. - Problem is an acute exacerbation. - Symptoms are unchanged. Signatures: Dispatcher [employer] EDAL Geraldo Yates MD MD rn Pena, Laura, RN RN lp1 Mary Jane Jones RN RN jl7 Ariana Bird Ronaldo, RN RN rv Romel Ortiz, RN RN rr5 Jameson Cowan RN bp Corrections: (The following items were deleted from the chart) 06:44 06:33 CORONAVIRUS+MR.LAB.BRZ ordered. EDAL EDMS 15:08 08:12 Hospitalization Ordered by Bhavesh Pineda DO for Inpatient Admission. Preliminary eb diagnosis is Hepatic encephalopathy; Altered mental status, unspecified; Unspecified cirrhosis of liver. Bed requested for Telemetry/MedSurg (Inpatient). Status is Inpatient Admission. Condition is Stable. Problem is an acute exacerbation. Symptoms are unchanged. rn 16:11 15:08 11/22/2020 08:12 Hospitalization Ordered by Bhavesh Pineda DO for Inpatient eb Admission. Preliminary diagnosis is Hepatic encephalopathy; Altered mental status, unspecified; Unspecified cirrhosis of liver. Bed requested for Telemetry/MedSurg (Inpatient). Status is Inpatient Admission. Condition is Stable. Problem is an acute exacerbation. Symptoms are unchanged. eb
--- NOTE | 2020-11-22 08:26 | RAD REPORT ---
EXAM DESCRIPTION: RAD - Chest Single View - 11/22/2020 6:56 am CLINICAL HISTORY: AMS COMPARISON: Portable November 01 TECHNIQUE: AP portable chest image was obtained 11/22/2020 6:56 am . FINDINGS: Lung volumes are relatively low. Lung parenchymal pattern matches the comparison. No new m ass or infiltrate. No significant failure or volume overload findings. Heart and vasculature are norm al. No measurable pleural effusion and no pneumothorax. No acute bony abnormality seen. No acute aort ic findings suspected. IMPRESSION: No focal mass or consolidation. Lung parenchymal pattern is similar to November 01.
[2020-11-22] MEDS ORDERED: LACTULOSE 20 GM/30 ML UCUP ONE ×4 (09:20→14:39)
--- NOTE | 2020-11-22 09:24 | RAD REPORT ---
EXAM DESCRIPTION: CT - Abdomen Pelvis W Contrast - 11/22/2020 8:59 am CLINICAL HISTORY: cirrhosis, AMS, abd swelling COMPARISON: Abdomen Pelvis W Contrast dated 11/04/2020 TECHNIQUE: Biphasic, helical CT imaging of the abdomen and pelvis was performed following 100 ml non -ionic IV contrast. No oral contrast administered. All CT scans are performed using dose optimization technique as appropriate and may include automated exposure control or mA/KV adjustment according to patient size. FINDINGS: Small bilateral pleural effusions seen. No mass or consolidation in the lung bases. Heart size is normal range with no pericardial effusion. Patient has pronounced fluid retention in the subc utaneous fatty tissues of the abdomen and pelvis. A small nodular liver is present the patient has known cirrhosis. No focal liver lesion is identifiab le. No focal splenic lesion is seen. Splenomegaly to 15 cm noted similar to comparison. No new pancre atic finding. Small cystic area near the body tail junction of the pancreas noted and stable. This ma y not actually be within the pancreatic parenchyma. Gallbladder is absent. No biliary tree dilatation. Symmetric renal function is seen with no hydronephrosis or suspicious renal mass. No pyelonephritis o r acute parenchymal process. Urinary bladder is contracted around a Henry catheter. Uterus and ovarie s show no suspicious findings. No adrenal abnormality. Small hiatal hernia is present with approximately 10-20% of the stomach intrathoracic. Stomach is dec ompressed. No gastric wall mass or thickening seen. No dilated large or small bowel loop. Jane of th e cecum are mildly prominent but assessment is limited due to the amount of motion. A true right-side d colon process is doubtful. Mild right-sided colitis of the cecum or typhlitis cannot be excluded gi felipe the patient's systemic disease. Large volume of ascites present. No free air or pneumatosis. Numerous large dilated veins in varices are seen in the upper abdomen. No mass or bulky lymphadenopathy. No hernia defects confirmed. No suspicious bony findings. IMPRESSION: Advanced cirrhosis with no focal liver lesions. Patient has large volume of ascites with anasarca pattern in the sub previous fatty tissues. Cecum and proximal portion ascending colon show questionable circumferential wall thickening obscured due to motion. A mild right-sided colitis or typhlitis cannot be excluded.
[2020-11-22] MEDS ORDERED: METRONIDAZOLE 500mg IVPB 500 MG/100 ML BAG IV ONE (10:00)
[2020-11-22] MEDS ORDERED: CIPROFLOXACIN 400mg IV 400 MG/200 ML BAG IV ONE (10:00)
[2020-11-22] MEDS ORDERED: ONDANSETRON 4 MG/2 ML VIAL ONE (10:02)
[2020-11-22] MEDS: ALBUMIN HUMAN 25% 50 ML IV ONE ×2 (13:22→13:45)
[2020-11-22] MEDS ORDERED: PROMETHAZINE INJ 25 MG/ML AMP IV PRN (13:22)
[2020-11-22] MEDS: INSULIN -REGULAR HUMAN 50 UNIT/0.5 ML ML SQ SCH ×2 (13:22→17:43)
[2020-11-22] MEDS: FUROSEMIDE 20 MG/ 2ML VIAL IV SCH ×3 (13:22→17:26)
[2020-11-22] MEDS ORDERED: SODIUM CHLORIDE 0.9% 10ML INJ IV PRN (13:22)
[2020-11-22] MEDS ORDERED: D5W 1,000 ML IV SCH (13:22)
[2020-11-22] MEDS ORDERED: ACETAMINOPHEN 500 MG TAB PO PRN (13:22)
[2020-11-22] MEDS ORDERED: ACETAMINOPHEN 650MG/RECT SUPP PR PRN (13:22)
[2020-11-22 13:29] VITALS: BMI 29.2
[2020-11-22] MEDS ORDERED: FUROSEMIDE 40 MG/4 ML VIAL ONE (13:53)
[2020-11-22] MEDS ORDERED: ALBUMIN HUMAN 25% 50 ML IV ONE (13:54)
[2020-11-22] MEDS ORDERED: D5W 1,000 ML IV ONE (13:55)
[2020-11-22] MEDS: LACTULOSE 20 GM/30 ML UCUP PO SCH ×2 (14:00→21:00)
[2020-11-22] MEDS ORDERED: NA CHLORIDE 0.9% 1,000 ML ONE (14:23)
--- NOTE | 2020-11-22 15:04 | P.HP ---
Certification for Inpatient Patient admitted to: Inpatient With expected LOS: >2 Midnights Patient will require the following post-hospital care: None Practitioner: I am a practitioner with admitting privileges, knowledge of patient current condition, hospital course, and medical plan of care. Services: Services provided to patient in accordance with Admission requirements found in Title 42 Section 412.3 of the Code of Federal Regulations Patient History Date of Service: 11/22/20 Primary Care Provider: unknown Reason for admission: Altered mental status History of Present Illness: 50-year-old female with history of suspected alcoholic liver cirrhosis with recurrent admissions for hepatic encephalopathy. Patient presents to the emergency room with increased altered mental status. Patient not able to provide a history. Most of the information came from the ER physician. No family present. Patient with recent hospitalization for hepatic encephalopathy. Patient has history of noncompliance with medication. In the ER patient was somnolent but arousable. Patient was given lactulose in the emergency room. White count 7.3, hemoglobin 9.6. Platelet count 59. Sodium 147, potassium 3.2. Being of 16, creatinine 0.79 with a GFR 76. Glucose 72 total bilirubin 4.2, direct bilirubin 2.2. AST 107, ALT 57. Pro calcitonin negative. Troponin unremarkable. Urinalysis unremarkable. Urine drug screen was positive for methamphetamines. Ammonia level 186. Chest x-ray unremarkable. CT head scan unremarkable. CT abdomen shows advanced cirrhosis with no focal liver lesions with anasarca check pattern in the fatty tissues noted. Cecum and proximal portion of ascending colon shows questionable circumferential wall thickening. Right-sided colitis suspected. Patient admitted for further evaluation and treatment. Allergies ondansetron [From Zofran] Allergy (Verified 06/14/20 21:06) Anaphylaxis Home medications list reviewed: Yes Home Medications: Furosemide 40 mg PO BID 06/24/20 Rifaximin [Xifaxan] 550 mg PO BID 06/24/20 Spironolactone 25 mg PO BID 11/02/20 Ciprofloxacin HCl 500 mg PO BID 7 Days #14 tablet 11/06/20 Lactulose 45 ml PO TID #4000 ml 11/06/20 - Past Medical/Surgical History Diabetic: No -: Advanced liver cirrhosis -: History of GERD with ulcer -: Diastolic CHF -: History of Esophageal varices -: Methamphetamine abuse -: Noncompliance with medication -: Endoscopy -: GB Sx Psychosocial/ Personal History: Unknown - Family History Mother -: Cancer Father -: Heart disease - Social History Smoking Status: Unknown if ever smoked Alcohol use: No CD- Drugs: No Caffeine use: No Place of Residence: Home Review of Systems is unable to be obtained Physical Examination - Studies Laboratory Data (last 24 hrs) 11/22/20 06:15: PT 17.3 H, INR 1.50, APTT 34.4 11/22/20 06:15: WBC 7.30, Hgb 9.6 L, Hct 29.8 L, Plt Count 59 L 11/22/20 06:15: Sodium 147 H, Potassium 3.2 L, BUN 16, Creatinine 0.79, Glucose 72 L, Total Bilirubin 4.2 H, AST 107 H, ALT 57, Alkaline Phosphatase 131 H, Amylase 40, Lipase 196 Assessment and Plan - Plan Physical exam: Patient with increased somnolence but arousable with pain and agitation. HEENT: Mouth appears dry. Nasal passage is dry. Heart: Regular rate and rhythm Lungs: Breath sounds clear anteriorly Abdomen: No specific abdominal pain noted. Ascites noted. Some distention noted. Extremities: 1 to 2+ pitting edema to the lower extremities to the legs. Good Range of motion noted with agitation. Impression: Altered mental status secondary to recurrent hepatic encephalopathy complicated with advanced liver cirrhosis suspect alcohol-related Elevated liver function, hyperbilirubinemia, hyperammonia secondary to advanced liver cirrhosis Anasarca with ascites Right-sided colitis suspected Hypoglycemia suspect malnutrition GERD with history of esophageal varices Anemia of chronic disease with thrombocytopenia likely related to liver cirrhosis Methamphetamine abuse Hyponatremia, Hypoalbuminemia with moderate protein malnutrition Non compliance with medication Plan: Altered mental status secondary to recurrent hepatic encephalopathy complicated with advanced liver cirrhosis suspect alcohol-related: Patient will be admitted for further evaluation and treatment. Will continue with aggressive lactulose orally or if needed rectally. Patient appears dehydrated but with noted ascites. Will start D5W. Will also provide Lasix with albumin. Case discussed with nephrology to help with fluid balance. Will also start IV Zosyn to cover for possible colitis. Will need to monitor anasarca and ascites as the patient may require paracentesis. Once the patient is more alert will need to get more information about her compliance with medication and follow up. Will provide IV Protonix. Will have dietary assess nutritional status. Will adjust fluids a ccordingly. Will address methamphetamine abuse. Await further recommendations from nephrology. Anticipate improvement over the next 72 hr. Elevated liver function, hyperbilirubinemia, hyperammonia secondary to advanced liver cirrhosis: Will monitor liver function test. Continue lactulose as directed above. Anticipate improvement. Fall, aspiration precaution in place. Anasarca with ascites: Patient to receive D5W and Lasix/albumin. Will need to monitor this closely. Patient may require paracentesis if this worsens. Right-sided colitis suspected: Continue IV Zosyn. Blood cultures obtained. Hypoglycemia suspect malnutrition: Will provide D5 W. will monitor this closely. If elevated will adjust medication. GERD with history of esophageal varices: Provide Protonix Anemia of chronic disease with thrombocytopenia likely related to liver cirrh osis: Monitor this closely. Methamphetamine abuse: Will address cessation education. Hyponatremia, Hypoalbuminemia with moderate protein malnutrition nephrology consulted. Will also consult dietary to assess daily needs. Will continue with D5W at, Lasix and albumin. Non compliance with medication: Will need to address lifestyle modification education. Will need to evaluate home status prior to discharge. Will need to address advanced directives and needs. Discharge Plan: Home Plan to discharge in: Greater than 2 days - Advance Directives Does patient have a Living Will: No Does patient have a Durable POA for Healthcare: No - Code Status/Comfort Care Code Status Assessed: No (Not Able to assess due to encephalopathy) Time Spent Managing Pts Care (In Minutes): 55
[2020-11-22] MEDS: PIPER/TAZO/NS 3.375gm 3.375 GM/100 ML BAG IVPB SCH (16:00)
[2020-11-22] MEDS ORDERED: POTASSIUM CL 40 MEQ in NA CHLORIDE 0.9% 500 ML IV SCH (16:00)
[2020-11-22] MEDS: D5W 1,000 ML with POTASSIUM CL 40 MEQ IV SCH ×2 (16:32)
[2020-11-22 17:02] LABS: Urine Appearance CLOUDY; Urine Bilirubin NEGATIVE (NEG); Urine Blood 2+ (NEG); Urine Color DK YELLOW; Urine Glucose NEGATIVE (NEG); Urine Protein NEGATIVE (NEG); Urine Specific Gravity 1.025 (1.005-1.030); Urine pH 5.5 (5.0-7.0)
[2020-11-22 17:06] LABS: Urine Microscopic Reflex ORDER UMIC
[2020-11-22 17:34] LABS: Urine Bacteria <20 /HPF (<20); Urine RBC 20-50 /HPF (NONE SEEN)
[2020-11-22] MEDS: KCL 20 MEQ/100 mL IVPB 20 MEQ/100 ML BAG IV SCH ×2 (18:34→21:16)
--- NOTE | 2020-11-22 20:00 | CON ---
Date of Consultation: 11/22/2020 Reason For Consult: Hypernatremia and hypokalemia. History Of Present Illness: Ms. Hansen is a 50-year-old female with past medical history significa nt for history of cirrhosis of the liver with hepatic encephalopathy, who presented to the hospital w ith altered mental status. All the history is obtained from review of records. She is unable to giv e history. She has been started on D5 water and also she is getting lactulose enema. Past Medical History: Significant for history of advanced liver cirrhosis, history of GERD with ulce r, diastolic heart failure, esophageal varices, methamphetamine abuse, noncompliance. Social History: Unknown. Family History: Unknown. Review of Systems: Unable to be obtained. Physical Examination: Vital signs: Showing temperature of 90, pulse rate of 110, blood pressure 178/114. General Examination: She is somnolent and unable to be aroused at this time. HEENT: Atraumatic hea d. Auscultation of the lungs revealed bilateral equal air entry with diminished breath sounds at bas es. Extremities: Showed anasarca with 2+ edema. Abdomen: Distended. Laboratory Data: At this time are showing sodium of 147, potassium of 3.2, chloride of 111, BUN of 1 6, and creatinine of 0.79. LFTs are showing elevated AST and CPK level is 297. Troponin was normal. Albumin was 1.6. CBC showed hemoglobin of 9.6, hematocrit 29.8, and platelet count of 59. Current Medications: Have been reviewed in detail. Impression: 1.Hypernatremia and hypokalemia. 2.Advanced liver cirrhosis with hepatic encephalopathy. 3.Elevated liver function test secondary to cirrhosis. 4.Altered mental status secondary to hepatic encephalopathy. Plan: Overall, the patient's condition is very guarded at this time. I agree with D5 water, but I w ill change it to D5 water with potassium to improve her hypokalemia and hypernatremia, and continue w ith the Lasix at this time and we will follow up with her closely. VV/MODL Voice ID: [id number] Report ID: [id number]
[2020-11-22] MEDS: PANTOPRAZOLE 40 MG INJ IVP SCH (21:17)
[2020-11-22] MEDS: LACTULOSE 20 GM/30 ML UCUP ONE (22:32)
[2020-11-23] MEDS: LACTULOSE 20 GM/30 ML UCUP ONE (00:01)
[2020-11-23] MEDS: PIPER/TAZO/NS 3.375gm 3.375 GM/100 ML BAG IVPB SCH ×3 (00:50→16:24)
[2020-11-23] MEDS: INSULIN -REGULAR HUMAN 50 UNIT/0.5 ML ML SQ SCH ×4 (06:00→18:00)
[2020-11-23 06:34] LABS: Absolute Lymphocytes (CBC) 1.7 K/uL (0.7-4.9); Basophils % 0.3 % (0-1.3); Hematocrit 28.4 % (36.0-45.0); Lymphocytes % 29.1 % (15.3-44.8); MPV 9.9 fL (7.6-11.3); RBC Red Blood Cell Count 3.25 M/uL (3.86-4.86)
[2020-11-23 06:51] LABS: Albumin 1.7 g/dL (3.4-5.0); Magnesium 1.8 mg/dL (1.8-2.4); Potassium 3.2 mmol/L (3.5-5.1); Protein, Total 5.3 g/dL (6.4-8.2)
[2020-11-23] MEDS ORDERED: MAGNESIUM SULFATE 1 gm IVPB 1 GM/100 ML BAG IV ONE (07:43)
[2020-11-23] MEDS: PANTOPRAZOLE 40 MG INJ IVP SCH ×2 (08:11→21:09)
[2020-11-23] MEDS: KCL 20 MEQ/100 mL IVPB 20 MEQ/100 ML BAG IV SCH ×2 (08:11→10:19)
[2020-11-23] MEDS: THIAMINE 200 MG/2 ML INJ IVP SCH (08:11)
[2020-11-23] MEDS: FUROSEMIDE 20 MG/ 2ML VIAL IV SCH (08:22)
[2020-11-23] MEDS: LACTULOSE 20 GM/30 ML UCUP PO SCH ×3 (09:00→21:21)
[2020-11-23] MEDS ORDERED: FOLIC ACID 5 MG/ML VIAL IVP SCH (09:00)
[2020-11-23] MEDS ORDERED: LACTULOSE 20 GM/30 ML UCUP PR ONE (09:15)
--- NOTE | 2020-11-23 10:47 | P.PN ---
Subjective Date of Service: 11/23/20 Primary Care Provider: unknown Chief Complaint: Altered mental status Subjective: Other (Patient still with increased somnolence.) Physical Examination - Vital Signs Temperature: 99.3 F Blood Pressure: 123/65 Pulse: 109 Respirations: 20 Pulse Ox (%): 95 Assessment & Plan Discharge Plan: Home Plan to discharge in: 72 Hours Physician Review Additional Text: Initial chief complaint: Altered mental status secondary to recurrent hepatic encephalopathy Physical exam: Patient with increased somnolence. Difficult to arouse. Room-air saturations normal. Vital signs stable. Heart: Regular rate and rhythm Lungs: Clear to auscultation. Abdomen: Less distention noted. Ascites noted. Extremities: Edema to the lower extremities remains stable. Still about 1 to 2+ pitting edema. Overall improved edema noted. Impression: Altered mental status secondary to recurrent hepatic encephalopathy complicated with advanced liver cirrhosis suspect alcohol-related Elevated liver function, hyperbilirubinemia, hyperammonia secondary to advanced liver cirrhosis Anasarca with ascites Right-sided colitis suspected Hypoglycemia suspect malnutrition GERD with history of esophageal varices Anemia of chronic disease with thrombocytopenia likely related to liver cirrhosis Methamphetamine abuse Hyponatremia, Hypoalbuminemia with moderate protein malnutrition Non compliance with medication Plan: Altered mental status secondary to recurrent hepatic encephalopathy complicated with advanced liver cirrhosis suspect alcohol-related: Patient remains stable. Still with increased somnolence. Patient will require another lactulose enema. Ammonia level has improved from 186-68. If more alert then will transition to oral lactulose 3 times a day to maintain 3-4 bowel movements per day. Continue IV fluids. Continue IV antibiotic therapy-Zosyn. Continue Lasix with albumin. Nephrology consulted to help with management of fluids. Likely no need for paracentesis at this time. As the patient becomes more alert compliance with lactulose will need to be addressed in detail. Will also need to address methamphetamine cessation. I will turn the service over to the hospitalist team tomorrow. I will go plan of care with him. Elevated liver function, hyperbilirubinemia, hyperammonia secondary to advanced liver cirrhosis: Liver function tests improved. Ammonia level improved. Continue lactulose as directed above. Anticipate continued improvement. Fall and aspiration precaution in place.. Anasarca with ascites: Continue IV fluids with Lasix/albumin. Nephrology to continue to adjust. No need for paracentesis at this time. Right-sided colitis suspected: Continue IV Zosyn. Blood and urine cultures obtained. Hypoglycemia suspect malnutrition: Will provide D5 W. Will monitor this closely. If elevated will adjust medication. GERD with history of esophageal varices: Continue a Protonix Anemia of chronic disease with thrombocytopenia likely related to liver cirrhosis: Overall stable. Will monitor this closely. Methamphetamine abuse: Will address cessation education when the patient is more alert. Hyponatremia, Hypoalbuminemia with moderate protein malnutrition: Continue with Nephrology recommendations. Non compliance with medication: Will need to address lifestyle modification education and compliance with medications in detail once the patient is more alert. Patient may require assistance at discharge with home health. Time Spent Managing Pts Care (In Minutes): 55
[2020-11-23] MEDS ORDERED: ALBUMIN HUMAN 25% 200 ML IV ONE (10:48)
[2020-11-23] MEDS: NA CHLORIDE 0.9% IVP SCH (10:49)
[2020-11-23] MEDS: FOLIC ACID IVP SCH (10:49)
[2020-11-23] MEDS: D5W 1,000 ML with POTASSIUM CL 40 MEQ IV SCH ×2 (12:20)
[2020-11-24] MEDS: PIPER/TAZO/NS 3.375gm 3.375 GM/100 ML BAG IVPB SCH ×3 (01:38→16:48)
[2020-11-24 04:41] LABS: Absolute Lymphocytes (CBC) 1.6 K/uL (0.7-4.9); Basophils % 1.5 % (0-1.3); Lymphocytes % 30.7 % (15.3-44.8); MPV 10.1 fL (7.6-11.3); RBC Red Blood Cell Count 3.16 M/uL (3.86-4.86)
[2020-11-24 04:59] LABS: Albumin 1.6 g/dL (3.4-5.0); Bilirubin Total 4.1 mg/dL (0.2-1.0); Magnesium 1.9 mg/dL (1.8-2.4); Potassium 3.6 mmol/L (3.5-5.1)
[2020-11-24 05:28] LABS: Blood Morphology Comment NOT SEEN (NOT SEEN); Platelet Estimate DECR; White Blood Cell Scan OK (OK)
[2020-11-24] MEDS: INSULIN -REGULAR HUMAN 50 UNIT/0.5 ML ML SQ SCH ×5 (06:00→21:00)
[2020-11-24] MEDS ORDERED: KCL 20 MEQ/100 mL IVPB 20 MEQ/100 ML BAG IV SCH (08:00)
[2020-11-24] MEDS: D5W 1,000 ML with POTASSIUM CL 40 MEQ IV SCH ×2 (08:32)
[2020-11-24] MEDS ORDERED: HYDROMORPHONE HCL 1 MG/ML INJ IV ONE (09:39)
[2020-11-24] MEDS: THIAMINE 200 MG/2 ML INJ IVP SCH (09:48)
[2020-11-24] MEDS: FOLIC ACID IVP SCH (09:49)
[2020-11-24] MEDS: NA CHLORIDE 0.9% IVP SCH (09:49)
[2020-11-24] MEDS: LACTULOSE 20 GM/30 ML UCUP PO SCH ×3 (09:49→20:59)
[2020-11-24] MEDS: PANTOPRAZOLE 40 MG INJ IVP SCH ×2 (09:52→20:59)
[2020-11-24 10:23] VITALS: O2SAT 100
[2020-11-24] MEDS ORDERED: GLUCAGON 1 MG/VIAL IM PRN (11:50)
[2020-11-24] MEDS ORDERED: D50W 25 GM/50 ML SYRINGE IV PRN (11:50)
[2020-11-24] MEDS ORDERED: POTASSIUM CL SA 10 MEQ TAB PO ONE (13:09)
--- NOTE | 2020-11-24 15:07 | P.DS ---
Discharge Date: 11/25/20 Primary Care Provider: unknown Disposition: ROUTINE DISCHARGE Discharge Condition: GOOD Reason for Admission: Altered mental status Brief History of Present Illness: 50-year-old female with history of suspected alcoholic liver cirrhosis with recurrent admissions for hepatic encephalopathy. Patient presents to the emergency room with increased altered mental status. Patient not able to provide a history. Most of the information came from the ER physician. No family present. Patient with recent hospitalization for hepatic encephalopathy. Patient has history of noncompliance with medication. In the ER patient was somnolent but arousable. Patient was given lactulose in the emergency room. White count 7.3, hemoglobin 9.6. Platelet count 59. Sodium 147, potassium 3.2. Being of 16, creatinine 0.79 with a GFR 76. Glucose 72 total bilirubin 4.2, direct bilirubin 2.2. AST 107, ALT 57. Pro calcitonin negative. Troponin unremarkable. Urinalysis unremarkable. Urine drug screen was positive for methamphetamines. Ammonia level 186. Chest x-ray unremarkable. CT head scan unremarkable. CT abdomen shows advanced cirrhosis with no focal liver lesions with anasarca check pattern in the fatty tissues noted. Cecum and proximal portion of ascending colon shows questionable circumferential wall thickening. Right-sided colitis suspected. Patient admitted for further evaluation and treatment. Hospital Course: Patient is clinically doing much better. Ambulated with physical therapy. Ammonia level is back to normal. At this time patient is stable for discharge home. Vital Signs/Physical Exam: Reviewed General: Alert, In no apparent distress, Oriented x3 Laboratory Data at Discharge: WBC 5.30 K/uL (4.3-10.9) 11/24/20 04:29 Hgb 8.9 g/dL (12.0-15.0) L 11/24/20 04:29 Hct 28.0 % (36.0-45.0) L 11/24/20 04:29 Plt Count 57 K/uL (152-406) L 11/24/20 04:29 PT 17.3 SECONDS (9.5-12.5) H 11/22/20 06:15 INR 1.50 11/22/20 06:15 APTT 34.4 SECONDS (24.3-36.9) 11/22/20 06:15 Sodium 149 mmol/L (136-145) H 11/24/20 04:29 Potassium Cancelled 11/24/20 Unknown BUN 15 mg/dL (7-18) 11/24/20 04:29 Creatinine 0.81 mg/dL (0.55-1.3) 11/24/20 04:29 Glucose 89 mg/dL (74-106) 11/24/20 04:29 Magnesium 1.9 mg/dL (1.8-2.4) 11/24/20 04:29 Total Bilirubin 4.1 mg/dL (0.2-1.0) H 11/24/20 04:29 AST 122 U/L (15-37) H 11/24/20 04:29 ALT 53 U/L (12-78) 11/24/20 04:29 Alkaline Phosphatase 103 U/L (45-117) 11/24/20 04:29 Amylase 40 U/L (25-115) 11/22/20 06:15 Lipase 196 U/L (73-393) 11/22/20 06:15 Home Medications: Furosemide 40 mg PO BID 06/24/20 Ciprofloxacin HCl 500 mg PO BID 7 Days #14 tablet 11/06/20 Lactulose 45 ml PO TID #4000 ml 11/06/20 Rifaximin [Xifaxan] 550 mg PO BID #60 11/24/20 Amlodipine [Norvasc*] 5 mg PO DAILY #30 tab 12/01/20 Spironolactone 1 tab PO DAILY 12/10/20 New Medications: Rifaximin [Xifaxan] 550 mg PO BID #60 Physician Discharge Instructions: -OK TO DC IV AND DC HOME -FOLLOW-UP WITH PCP IN 1-2 WEEKS -FOLLOW-UP WITH Hepatology IN 1-2 WEEKS -PLEASE MAKE SURE ALL DIAGNOSTIC STUDIES ARE AVAILABLE AND HAVE BEEN REVIEWED WITH PATIENT PRIOR TO DISCHARGE -RETURN TO THE ER IF symptoms worsen -CALL DR. CRISTINA AT [phone] IF ANY QUESTIONS REGARDING HOSPITAL STAY -PLEASE CALL THE FLOOR AT [phone] IF ANY MEDICATION OR NURSING QUESTIONS Diet: Low sodium Activity: Fall precautions Followup: NONE,NONE [Primary Care Provider] - Time spent managing pt's care (in minutes): 35
[2020-11-24] MEDS ORDERED: D5W 1,000 ML IV SCH (16:00)
[2020-11-24] MEDS ORDERED: D50W 25 GM/50 ML VIAL IV PRN (19:00)
--- NOTE | 2020-11-24 21:42 | P.PN ---
Date of Service: 11/24/20 Vital Signs Temp Pulse Resp BP Pulse Ox 98.3 F 101 H 18 154/87 H 100 11/24/20 16:00 11/24/20 16:00 11/24/20 16:00 11/24/20 16:00 11/24/20 16:00 Medications Acetaminophen (Acetaminophen 500 Mg Tab) 500 mg PO Q4HP PRN PRN Reason: TEMP > 101' F Acetaminophen (Acetaminophen 650mg/Rect Supp) 650 mg NH Q6HP PRN PRN Reason: TEMP > 101' F Dextrose (D50w 25 Gm/50 Ml Vial) 12.5 gm IV PRN PRN; Protocol PRN Reason: HYPOGLYCEMIA Glucagon (Glucagon 1 Mg/Vial) 1 mg IM 1X PRN; Protocol PRN Reason: HYPOGLYCEMIA Piperacillin Sod/Tazobactam Sod (Zosyn 3.375 Gm/100 Ml Ns Ivpb) 3.375 gm in 100 mls @ 100 mls/hr IVPB Q8HR GEMA; Protocol Last Admin: 11/24/20 16:48 Dose: 100 mls Documented by: Insulin Human Regular (Insulin -Regular Human 50 Unit/0.5 Ml Ml) 0 unit SQ ACHS GEMA; Protocol Last Admin: 11/24/20 21:00 Dose: Not Given Documented by: Lactulose (Lactulose 20 Gm/30 Ml Ucup) 45 gm PO TID GEMA Last Admin: 11/24/20 20:59 Dose: 45 gm Documented by: Pantoprazole Sodium (Pantoprazole 40 Mg Inj) 40 mg IVP Q12HR GEMA; Protocol Last Admin: 11/24/20 20:59 Dose: 40 mg Documented by: Promethazine HCl (Promethazine Inj 25 Mg/Ml Amp) 12.5 mg IV Q4H PRN PRN Reason: NAUSEA / VOMITING Sodium Chloride (Flush Normal Saline 10 Ml) 10 ml IV BID GEMA Last Admin: 11/24/20 21:00 Dose: 10 ml Documented by: Sodium Chloride (Sodium Chloride 0.9% 10ml Inj) 10 ml IV UD PRN PRN Reason: Diluant Last Admin: 11/23/20 08:12 Dose: 10 ml Documented by: Thiamine HCl (Thiamine 200 Mg/2 Ml Inj) 100 mg IVP DAILY [facility] Last Admin: 11/24/20 09:48 Dose: 100 mg Documented by: Microbiology Results 11/22/20 06:30 Blood - Blood Aerobic Blood Culture - Preliminary No growth in 24 hours. 11/22/20 06:30 Blood - Blood Anaerobic Blood Culture - Preliminary No growth in 24 hours. 11/22/20 06:15 Blood - Blood Aerobic Blood Culture - Preliminary No growth in 24 hours. 11/22/20 06:15 Blood - Blood Anaerobic Blood Culture - Preliminary No growth in 24 hours. Assessment/ Plan: Nephrology Limited IH/ ROS due to AMS Persistent edema. No acute events overnight. Vitals, medications, blood work and imaging reviewed in the chart. NAD. Obese. MMM. Neck supple. CTA. RRR. Soft Abd. No C/C. LE Edema 2-3+. No rash. Somnolent. No Speech. A/P: Continue the current POC and Medications other than the changes listed. AM Labs PRN. Recommend daily weight. Please see the orders for complete details. Hypernatremia -Start spironolactone -Will restart D5W as needed Hypokalemia -Replete potassium -Start spironolactone 25mg BID Hypocalcemia -Start Calcitriol Hypomagnesemia -Agree with IV magnesium Liver cirrhosis with hepatic encephalopathy & ascites -Continue Lactulose Severe malnutrition -Recommend protein supplementation Anemia in chronic illness Secondary thrombocytopenia -Monitor H&H
[2020-11-24] MEDS: KETOROLAC 30 MG/ML INJ IV ONE ×2 (22:12→23:34)
[2020-11-25] MEDS: PIPER/TAZO/NS 3.375gm 3.375 GM/100 ML BAG IVPB SCH ×2 (00:44→09:00)
[2020-11-25 04:41] LABS: Absolute Lymphocytes (CBC) 1.9 K/uL (0.7-4.9); Basophils % 0.7 % (0-1.3); Hematocrit 26.9 % (36.0-45.0); Lymphocytes % 32.8 % (15.3-44.8); MPV 10.8 fL (7.6-11.3); RBC Red Blood Cell Count 3.01 M/uL (3.86-4.86)
[2020-11-25 04:58] LABS: Albumin 1.4 g/dL (3.4-5.0); Bilirubin Total 3.1 mg/dL (0.2-1.0); Magnesium 1.8 mg/dL (1.8-2.4); Potassium 3.6 mmol/L (3.5-5.1); Protein, Total 4.4 g/dL (6.4-8.2)
[2020-11-25] MEDS: INSULIN -REGULAR HUMAN 50 UNIT/0.5 ML ML SQ SCH ×2 (07:30→11:30)
[2020-11-25] MEDS ORDERED: POTASSIUM 25 MEQ EFFERV TAB PO ONE (09:00)
[2020-11-25] MEDS ORDERED: FOLIC ACID 1 MG in NA CHLORIDE 0.9% 50 ML IVP SCH ×4 (09:00)
[2020-11-25] MEDS ORDERED: CALCITROL 0.25 MCG CAP PO SCH (09:00)
[2020-11-25] MEDS ORDERED: SPIRONOLACTONE 25 MG TABLET PO SCH (09:00)
[2020-11-25] MEDS ORDERED: ALBUMIN HUMAN 25% 100 ML IV ONE (09:40)
[2020-11-25] MEDS ORDERED: LACTULOSE 20 GM/30 ML UCUP PO ONE (09:40)
--- NOTE | 2020-11-25 09:49 | P.PN ---
Subjective Date of Service: 11/24/20 Patient was much more awake & alert today. Patient's ammonia level has improved. Will Dc Henry catheter and advanced diet as tolerated. Will get patient out of bed and ambulate. Possibility of discharging him home. Review of Systems 10-point ROS is otherwise unremarkable Physical Examination - Vital Signs Temperature: 98.6 F Blood Pressure: 123/65 Pulse: 90 Respirations: 19 Pulse Ox (%): 95 - Physical Exam General: Alert, In no apparent distress, Oriented x3 Respiratory: Clear to auscultation bilaterally, Normal air movement Cardiovascular: Regular rate/rhythm, Normal S1 S2, No murmurs Gastrointestinal: Normal bowel sounds, Soft and benign, No tenderness, Distended (Slightly) Musculoskeletal: No clubbing, No swelling, No tenderness Integumentary: Other (Lower extremity edema) Neurological: Other (Diminish strength but will get out of bed and ambulate today) - Studies Medications List Reviewed: Yes Assessment & Plan - Problems (Diagnosis) (1) Ascites Current Visit: No Status: Acute (2) Coagulopathy Current Visit: No Status: Acute (3) Hepatic encephalopathy Current Visit: No Status: Acute (4) Hypoalbuminemia Current Visit: No Status: Acute (5) Lactic acidosis Current Visit: No Status: Acute (6) Liver cirrhosis Current Visit: No Status: Acute - Plan Plan: 1. Continue with lactulose 2. Monitor ammonia level 3. Physical therapy evaluation 4. Monitor electrolytes 5. Continue with diuresing with Lasix/Aldactone 6. Albumin IV as needed 7. GI and DVT prophylaxis Long-term prognosis is poor unless patient gets in to see hepatology regularly. She does not seem like she is very compliant with her care and recommendations that have been given to her in the past. As such her long-term prognosis is poor. Discharge Plan: Home Plan to discharge in: 24 Hours - Advance Directives Does patient have a Living Will: No Does patient have a Durable POA for Healthcare: No - Code Status/Comfort Care Code Status Assessed: Yes Code Status: Full Code Critical Care: No Time Spent Managing PTS Care (In Minutes): 35
--- NOTE | 2020-11-25 10:02 | P.PN ---
Date of Service: 11/25/20 Subjective Patient discharge was held. Patient was vomiting last night. Patient is still having difficulty with ambulating. Will get physical therapy evaluation Review of Systems 10-point ROS is otherwise unremarkable Physical Examination - Vital Signs Reviewed - Physical Exam General: Alert, In no apparent distress, Oriented x3 Respiratory: Clear to auscultation bilaterally, Normal air movement Cardiovascular: Regular rate/rhythm, Normal S1 S2, No murmurs Gastrointestinal: Normal bowel sounds, Soft and benign, No tenderness, Distended (Slightly) Musculoskeletal: No clubbing, No swelling, No tenderness Integumentary: Other (Lower extremity edema) Neurological: Other (Diminish strength but will get out of bed and ambulate today) - Studies Medications List Reviewed: Yes Assessment & Plan - Problems (Diagnosis) (1) Ascites Current Visit: No Status: Acute (2) Coagulopathy Current Visit: No Status: Acute (3) Hepatic encephalopathy Current Visit: No Status: Acute (4) Hypoalbuminemia Current Visit: No Status: Acute (5) Lactic acidosis Current Visit: No Status: Acute (6) Liver cirrhosis Current Visit: No Status: Acute - Plan Plan: 1. Continue with lactulose 2. Monitor ammonia level; elevated and will increase dose of lactulose x1 3. Physical therapy evaluation 4. Monitor electrolytes 5. Continue with diuresing with Lasix/Aldactone 6. Albumin IV as needed 7. GI and DVT prophylaxis
[2020-11-25] MEDS: LACTULOSE 20 GM/30 ML UCUP PO SCH ×2 (11:03→14:00)
[2020-11-25] MEDS: THIAMINE 200 MG/2 ML INJ IVP SCH (11:03)
[2020-11-25] MEDS: PANTOPRAZOLE 40 MG INJ IVP SCH (11:03)
[2020-12-15 04:25] VITALS: BP 123/65; TEMP 98.6
== END 2020-11-25 14:23 | disposition home or self-care (01) | DRG 432 ==
LOC: ER 05:59 → ERHOLD 09:41 → 2ND 15:31
PROVIDERS: ADMIT Family Medicine; ATTEND Hospitalist
DX: K70.31 Alcoholic cirrhosis of liver with ascites (principal); E43 Unspecified severe protein-calorie malnutrition; I50.32 Chronic diastolic (congestive) heart failure; E87.0 Hyperosmolality and hypernatremia; D68.9 Coagulation defect, unspecified; E87.2 Acidosis; E87.6 Hypokalemia; E83.42 Hypomagnesemia; F15.10 Other stimulant abuse, uncomplicated; E83.51 Hypocalcemia; E86.0 Dehydration; D63.8 Anemia in other chronic diseases classified elsewhere; D69.6 Thrombocytopenia, unspecified; E88.09 Other disorders of plasma-protein metabolism, not elsewhere classified; K72.90 Hepatic failure, unspecified without coma; K52.9 Noninfective gastroenteritis and colitis, unspecified; E16.2 Hypoglycemia, unspecified; K21.9 Gastro-esophageal reflux disease without esophagitis; Z88.0 Allergy status to penicillin; Z68.29 Body mass index [BMI] 29.0-29.9, adult; Z88.8 Allergy status to other drugs, medicaments and biological substances; Z79.899 Other long term (current) drug therapy; Z91.14 Patient's other noncompliance with medication regimen; Z85.038 Personal history of other malignant neoplasm of large intestine; Z20.822 Contact with and (suspected) exposure to COVID-19
CPT/HCPCS: 36415; 51702; 70450; 71045; 74177; 80048; 80053; 80076; 80307; 80320; 81003; 81015; 82140; 82150; 82550; 82553; 82947; 83605; 83690; 83735; 84132; 84145; 84484; 85025; 85610; 85730; 87040; 87086; 87088; 93005; 94010; 97116; 97161; 99285; C9113; J0744; J1170; J1940; J2405; J2543; J2550; J3411; J3475; J3480; J7030; J7040; P9047; Q9967; U0003

== ENCOUNTER 2020-11-28 18:49 | Inpatient (IN) | payer SELFPAY ==
[2020-11-28 19:48] LABS: Absolute Lymphocytes (CBC) 1.2 K/uL (0.7-4.9); Basophils % 0.3 % (0-1.3); Hematocrit 28.9 % (36.0-45.0); Lymphocytes % 23.7 % (15.3-44.8); MPV 11.5 fL (7.6-11.3); RBC Red Blood Cell Count 3.28 M/uL (3.86-4.86)
[2020-11-28 19:52] LABS: Protime INR 1.62
--- NOTE | 2020-11-28 19:52 | RAD REPORT ---
EXAM DESCRIPTION: CT - Head Brain Wo Cont - 11/28/2020 7:40 pm CLINICAL HISTORY: CONFUSED Headache, drowsiness COMPARISON: Head Brain Wo Cont dated 11/22/2020; Head Brain Wo Cont dated 11/02/2020; Abdomen Pelvis W Contrast dated 11/22/2020 TECHNIQUE: All CT scans are performed using dose optimization technique as appropriate and may inclu de automated exposure control or mA/KV adjustment according to patient size. FINDINGS: No intracranial hemorrhage, hydrocephalus or extra-axial fluid collection.No areas of brai n edema or evidence of midline shift. The paranasal sinuses and mastoids are clear. The calvarium is intact. IMPRESSION: No acute intracranial abnormality.
[2020-11-28 20:04] LABS: ALT/SGPT 67 U/L (12-78); AST/SGOT 131 U/L (15-37); Albumin 1.7 g/dL (3.4-5.0); Alkaline Phosphatase 108 U/L (45-117); BUN Blood Urea Nitrogen 9 mg/dL (7-18); Bicarbonate 27 mmol/L (21-32); Bilirubin Direct 1.6 mg/dL (0-0.2); Creatine Phosphokinase 532 U/L (26-192); Glucose Level 86 mg/dL (74-106); Lipase 156 U/L (73-393); Magnesium 1.8 mg/dL (1.8-2.4); Potassium 4.2 mmol/L (3.5-5.1); Protein, Total 5.4 g/dL (6.4-8.2); Sodium Level 147 mmol/L (136-145); Troponin (Emerg Dept Use Only) 0.02 ng/mL (0.0-0.045)
[2020-11-28 20:10] LABS: Blood Morphology Comment NOT SEEN (NOT SEEN); Platelet Estimate DECR; White Blood Cell Scan OK (OK)
--- NOTE | 2020-11-28 20:26 | ER ---
Nurse's Notes [facility] Name: Lorena Hansen Age: 50 yrs Sex: Female : 1970 Arrival Date: 11/28/2020 Time: 18:51 Bed 14 Private MD: Diagnosis: Altered mental status, unspecified;Hyperammonemia Presentation: 11/28 18:51 Chief complaint: Patient states: Found unresponsive by S.O. at home. He last spoke to 5 her around 11 am today. S.O. states she gets like this when her ammonia levels are elevated. Responds to painful stimuli only. VSS. Fingerstick 84. S.O. believes she has been taking her meds as prescribed. Coronavirus screen: Client denies travel out of the [place] in the last 14 days. At this time, the client does not indicate any symptoms associated with coronavirus-19. Ebola Screen: Patient denies travel to an Ebola-affected area in the 21 days before illness onset. Initial Sepsis Screen: Does the patient meet any 2 criteria? Altered Mental Status. No. Patient's initial sepsis screen is negative. Does the patient have a suspected source of infection? No. Patient's initial sepsis screen is negative. Risk Assessment: Do you want to hurt yourself or someone else? Patient reports no desire to harm self or others. Onset of symptoms was November 28, 2020. 18:51 Method Of Arrival: EMS: [facility] aa5 18:51 Acuity: SUDHA 2 aa5 Historical: - Allergies: 18:54 PENICILLINS; aa5 18:54 Zofran; aa5 - PMHx: 18:54 Cirrhosis; COLON CA; aa5 - PSHx: 18:54 Unable to obtain; aa5 - Immunization history:: Flu vaccine status is unknown. - Social history:: Smoking status: unknown. Screenin:14 Fall Risk No fall in past 12 months (0 pts). No secondary diagnosis (0 pts). IV access vg1 (20 points). Ambulatory Aid- None/Bed Rest/Nurse Assist (0 pts). Gait- Normal/Bed Rest/Wheelchair (0 pts) Mental Status- Oriented to own ability (0 pts). Total Carr Fall Scale indicates No Risk (0-24 pts). 23:14 Abuse screen: Denies threats or abuse. Nutritional screening: No deficits noted. vg1 Tuberculosis screening: No symptoms or risk factors identified. Assessment: 19:12 Neuro: Level of Consciousness is unresponsive, Oriented to none Pt moans to verbal aa5 stimuli . 19:12 Respiratory: Airway is patent Respiratory effort is even, unlabored, Respiratory aa5 pattern is regular, symmetrical. Derm: Skin is pink, warm \T\ dry. Pt's body noted to be swollen, non-pitting edema noted. 19:33 Reassessment: Pt currently to CT via stretcher . aa5 20:05 General: Appears in no apparent distress. Behavior is unresponsive. Pain: Unable to use vg1 pain scale. Patient is unresponsive. Neuro: Level of Consciousness is unresponsive, Oriented to none. Cardiovascular: Patient's skin is warm and dry. Respiratory: Airway is patent Respiratory effort is even, unlabored, Respiratory pattern is regular, symmetrical, snoring. Derm: Skin is pink, warm \T\ dry. 20:05 GI: Abd is rigid in right upper quadrant. vg1 Vital Signs: 19:20 BP 149 / 98; Pulse 98; Resp 16; Temp 98.5(O); Pulse Ox 99% on R/A; em 19:51 BP 147 / 101; Pulse 105; Resp 16; Pulse Ox 100% on R/A; vg1 20:30 BP 142 / 96; Pulse 104; Resp 16; Pulse Ox 99% on R/A; vg1 21:30 BP 169 / 110; Pulse 104; Resp 14; Pulse Ox 97% on R/A; vg1 22:30 BP 169 / 111; Pulse 110; Resp 18; Pulse Ox 98% on R/A; vg1 23:00 BP 138 / 86; Pulse 110; Resp 14; Pulse Ox 97% on R/A; vg1 ED Course: 18:51 Patient arrived in ED. aa5 18:53 Triage completed. aa5 18:54 Arm band placed on. aa5 19:19 Reilly Arellano MD is Attending Physician. tw4 19:25 Initial lab(s) drawn, by me, sent to lab. Inserted saline lock: 22 gauge in right hand, aa5 using aseptic technique. Blood collected. 19:31 Hanh Gilmore RN is Primary Nurse. vg1 19:[address] via stretcher. vg1 19:39 CT Head Brain wo Cont In Process Unspecified. EDMS 20:19 Henry cath inserted, using sterile technique, 16 Fr., by hi, balloon inflated, to vg1 gravity drainage, urine specimen collected. 20:24 Lan Valladares MD is Hospitalizing Provider. tw4 21:23 NGT: inserted 16 Fr. via right nare. other blood noted in NG tube upon insertion. vg1 23:14 Patient has correct armband on for positive identification. Placed in gown. Bed in low vg1 position. Call light in reach. Side rails up X2. 11/29 02:10 No provider procedures requiring assistance completed. Patient admitted, IV remains in em place. 02:50 Primary Nurse role handed off by Hanh Gilmore, RN mw2 Administered Medications: 11/28 21:22 Drug: Lactulose 30 grams Volume: 45 ml; Route: PO; vg1 23:15 Follow up: Response: No adverse reaction; PO med was administered through NG Tube. vg1 Intake: Outcome: 20:25 Decision to Hospitalize by Provider. tw4 11/29 02:10 Admitted to Med/surg accompanied by tech, via stretcher, room 206. em Condition: unchanged Discharge instructions given to patient. 03:06 Patient left the ED. em Signatures: Dispatcher [employer] Gonzalo Mayo, RN RN Savanna Guzman, RN RN Reilly George MD MD tw4 Jade Alejandro mw2 Hanh Gilmore, RN RN vg1
--- NOTE | 2020-11-28 20:26 | EDPHYS ---
Physician Documentation [facility] Name: Lorena Hansen Age: 50 yrs Sex: Female : 1970 Arrival Date: 11/28/2020 Time: 18:51 Bed 14 Private MD: ED Physician Reilly Arellano HPI: 11/28 23:09 This 50 yrs old Female presents to ER via EMS with complaints of Altered tw4 Mental Status. 23:09 The patient presents with decreased mental status, decreased responsiveness. Onset: The tw4 symptoms/episode began/occurred today. Possible causes: hyperammonemia. Historical: - Allergies: 18:54 PENICILLINS; aa5 18:54 Zofran; aa5 - PMHx: 18:54 Cirrhosis; COLON CA; aa5 - PSHx: 18:54 Unable to obtain; aa5 - Immunization history:: Flu vaccine status is unknown. - Social history:: Smoking status: unknown. ROS: 23:38 Unable to obtain ROS due to altered mental status. tw4 Exam: 23:38 Head/Face: Normocephalic, atraumatic. Eyes: Pupils equal round and reactive to light, tw4 extra-ocular motions intact. Lids and lashes normal. Conjunctiva and sclera are non-icteric and not injected. Cornea within normal limits. Periorbital areas with no swelling, redness, or edema. Chest/axilla: Normal chest wall appearance and motion. Nontender with no deformity. No lesions are appreciated. Cardiovascular: Regular rate and rhythm with a normal S1 and S2. No gallops, murmurs, or rubs. Normal PMI, no JVD. No pulse deficits. Respiratory: Lungs have equal breath sounds bilaterally, clear to auscultation and percussion. No rales, rhonchi or wheezes noted. No increased work of breathing, no retractions or nasal flaring. Abdomen/GI: Soft, non-tender, with normal bowel sounds. No distension or tympany. No guarding or rebound. No evidence of tenderness throughout. Back: No spinal tenderness. No costovertebral tenderness. Full range of motion. MS/ Extremity: Pulses equal, no cyanosis. Neurovascular intact. Full, normal range of motion. 23:38 Constitutional: The patient appears somnolent 23:38 Neuro: Mentation: slow to respond, Memory: unable to test, the patient is comatose, Cranial nerves: Cerebellar function: unable to test, the patient is comatose, Motor: moves all fours, Sensation: unable to test, the patient is comatose. Vital Signs: 19:20 BP 149 / 98; Pulse 98; Resp 16; Temp 98.5(O); Pulse Ox 99% on R/A; em 19:51 BP 147 / 101; Pulse 105; Resp 16; Pulse Ox 100% on R/A; vg1 20:30 BP 142 / 96; Pulse 104; Resp 16; Pulse Ox 99% on R/A; vg1 21:30 BP 169 / 110; Pulse 104; Resp 14; Pulse Ox 97% on R/A; vg1 22:30 BP 169 / 111; Pulse 110; Resp 18; Pulse Ox 98% on R/A; vg1 23:00 BP 138 / 86; Pulse 110; Resp 14; Pulse Ox 97% on R/A; vg1 MDM: 19:19 Patient medically screened. 11/29 04:38 Differential Diagnosis: CVA, electrolyte abnormality, volume depletion. Data reviewed: vital signs, nurses notes. Data interpreted: Pulse oximetry: Interpretation: normal. Counseling: I had a detailed discussion with the patient and/or guardian regarding: the historical points, exam findings, and any diagnostic results supporting the discharge/admit diagnosis. Physician consultation: Lan Valladares MD regarding admission. Special discussion: I discussed with the patient/guardian in detail that at this point there is no indication for admission to the hospital. It is understood, however, that if the symptoms persist or worsen the patient needs to return immediately for re-evaluation. 11/28 19:20 Order name: UDS 11/28 19:20 Order name: Basic Metabolic Panel 11/28 19:20 Order name: CBC with Diff 11/28 19:20 Order name: Ckmb 11/28 19:20 Order name: CPK 11/28 19:20 Order name: Hepatic Function; Complete Time: 20:18 11/28 19:20 Order name: Lipase 11/28 19:20 Order name: Magnesium 11/28 19:20 Order name: Protime (+inr) 11/28 19:20 Order name: Ptt, Activated tw4 11/28 19:20 Order name: Troponin (emerg Dept Use Only) tw4 11/28 19:20 Order name: AMMONIA; Complete Time: 20:17 tw4 11/28 19:21 Order name: Urine Drug Screen [facility] 11/28 19:21 Order name: Basic Metabolic Panel [facility] 11/28 19:21 Order name: CBC with Automated Diff EDMS 11/28 19:21 Order name: CKMB Creatine Kinase MB ED[facility] 11/28 19:21 Order name: Creatine Phosphokinase [facility] 11/28 19:29 Order name: Lactate tw 11/28 19:35 Order name: Blood Culture Adult (2) 4 11/28 19:38 Order name: Glucose, Ancillary Testing [facility] 11/28 20:10 Order name: CBC Smear Scan [facility] 11/28 21:14 Order name: Urine Dipstick--Ancillary (enter results) [facility] 11/28 21:35 Order name: CORONAVIRUS [facility] 11/28 22:14 Order name: SARS-COV-2 RT PCR ED[facility] 11/28 23:34 Order name: Ammonia [facility] 11/28 23:34 Order name: Comprehensive Metabolic Panel [facility] 11/28 23:34 Order name: Comprehensive Metabolic Panel [facility] 11/28 23:35 Order name: CBC with Automated Diff [facility] 11/28 23:35 Order name: CBC with Automated Diff [facility] 11/28 19:15 Order name: CT Head Brain wo Cont; Complete Time: 22:49 11/28 19:20 Order name: EKG; Complete Time: 19:21 [facility] 11/28 19:20 Order name: Cardiac monitoring; Complete Time: 19:30 4 11/28 19:20 Order name: EKG - Nurse/Tech; Complete Time: 19:51 4 11/28 19:20 Order name: IV Saline Lock; Complete Time: 19:30 [facility] 11/28 19:20 Order name: Labs collected and sent; Complete Time: 19:30 [facility] 11/28 19:20 Order name: NPO; Complete Time: 19:30 [facility] 11/28 19:20 Order name: O2 Per Protocol; Complete Time: 19:30 [facility] 11/28 19:20 Order name: O2 Sat Monitoring; Complete Time: 19:30 [facility] 02/12 19:20 Order name: Urine Dipstick-Ancillary (obtain specimen); Complete Time: 21:26 tw4 11/28 19:51 Order name: Henry; Complete Time: 20:19 vg1 11/28 21:23 Order name: NG Tube; Complete Time: 21:23 vg1 11/28 23:34 Order name: CONS Pharmacy Consult EDMS 11/28 23:34 Order name: NPO EDMS EC/12 23:38 Rate is 118 beats/min. Rhythm is regular. QRS [place] is Normal. [place] interval is normal. tw4 QRS interval is normal. QT interval is normal. No Q waves. T waves are Normal. No ST changes noted. Clinical impression: Sinus tachycardia. Interpreted by me. Reviewed by me. Administered Medications: 21:22 Drug: Lactulose 30 grams Volume: 45 ml; Route: PO; vg1 23:15 Follow up: Response: No adverse reaction; PO med was administered through NG Tube. vg1 Disposition: 11/28/20 20:25 Hospitalization ordered by Lan Valladares for Observation. Preliminary diagnosis are Altered mental status, unspecified, Hyperammonemia. - Bed requested for Telemetry/MedSurg (Inpatient). - Status is Observation. em - Condition is Fair. - Problem is an ongoing problem. - Symptoms are unchanged. Signatures: Dispatcher [employer] [facility] Eliz Arreaga RN RN mw Woody, Diana, RN DAYNA Gonzalo Bower, Savanna Barbour RN, RN RN Reilly George MD MD 4 Hanh Gilmore, RN RN vg1 Corrections: (The following items were deleted from the chart) 20:27 20:25 Hospitalization Ordered by Lan Valladares MD for Observation. Preliminary diagnosis is Altered mental status, unspecified; Hyperammonemia. Bed requested for Telemetry/MedSurg (Inpatient). Status is Observation. Condition is Fair. Problem is an ongoing problem. Symptoms are unchanged. tw4 21:29 21:07 CORONAVIRUS+MR.LAB.BRZ ordered. [facility] EDMS 23:57 20:27 11/28/2020 20:25 Hospitalization Ordered by Lan Valladares MD for Observation. Preliminary diagnosis is Altered mental status, unspecified; Hyperammonemia. Bed requested for [facility] ER HOLD. Status is Observation. Condition is Fair. Problem is an ongoing problem. Symptoms are unchanged. dw 11/29 03:06 11/28 23:57 11/28/2020 20:25 Hospitalization Ordered by Lan Valladares MD for em Observation. Preliminary diagnosis is Altered mental status, unspecified; Hyperammonemia. Bed requested for Telemetry/MedSurg (Inpatient). Status is Observation. Condition is Fair. Problem is an ongoing problem. Symptoms are unchanged. mw
[2020-11-28] MEDS ORDERED: LACTULOSE 20 GM/30 ML UCUP ONE (20:45)
[2020-11-28 21:24] LABS: Urine Blood 2+ (NEG); Urine Glucose NEGATIVE (NEG); Urine Protein 1+ (NEG); Urine pH 8.5 (5.0-7.0)
[2020-11-28 21:33] LABS: Barbiturates NEGATIVE (NEGATIVE); Benzodiazepines NEGATIVE (NEGATIVE); Cocaine NEGATIVE (NEGATIVE); METHAMPHETAM POSITIVE (NEGATIVE); Methadone NEGATIVE (NEGATIVE); Opiates NEGATIVE (NEGATIVE); Phencyclidine NEGATIVE (NEGATIVE); THC Cannibis NEGATIVE (NEGATIVE)
[2020-11-28] MEDS ORDERED: MORPHINE 2 MG/ML SYR IV PRN (23:30)
[2020-11-28] MEDS ORDERED: ONDANSETRON 4 MG/2 ML VIAL IV PRN (23:30)
[2020-11-28] MEDS ORDERED: ALBUTEROL 2.5 MG/3 ML NEB SOL NEB PRN (23:30)
--- NOTE | 2020-11-28 23:30 | P.HP ---
Certification for Inpatient With expected LOS: >2 Midnights Patient will require the following post-hospital care: None Practitioner: I am a practitioner with admitting privileges, knowledge of patient current condition, hospital course, and medical plan of care. Services: Services provided to patient in accordance with Admission requirements found in Title 42 Section 412.3 of the Code of Federal Regulations Patient History Date of Service: 11/28/20 Reason for admission: Altered mental status History of Present Illness: 50-year-old female with past medical history of liver cirrhosis brought in by spouse via EMS after being noted with progressive drowsiness and unresponsiveness. Family unable to get more history from now . On arrival in the ED patient was markedly obtunded. Wall cough which shows negative head CT for acute infarct, positive urine drug screen for amphetamine as well as significantly elevated ammonia level of 224. She had an NG-tube placed and start ed on lactulose now. She has been admitted for presumed hepatic encephalopathy Allergies ondansetron [From Zofran] Allergy (Verified 06/14/20 21:06) Anaphylaxis Home Medications: Furosemide 40 mg PO BID 06/24/20 Spironolactone 25 mg PO BID 11/02/20 Ciprofloxacin HCl 500 mg PO BID 7 Days #14 tablet 11/06/20 Lactulose 45 ml PO TID #4000 ml 11/06/20 Rifaximin [Xifaxan] 550 mg PO BID #60 11/24/20 - Past Medical/Surgical History Diabetic: No -: Advanced liver cirrhosis -: History of GERD with ulcer -: Diastolic CHF -: History of Esophageal varices -: Methamphetamine abuse -: Noncompliance with medication -: Endoscopy -: GB Sx Psychosocial/ Personal History: Unknown - Family History Mother -: Cancer Father -: Heart disease - Social History Alcohol use: No CD- Drugs: No Caffeine use: No Review of Systems is unable to be obtained Physical Examination - Physical Exam General: Delirious, Unresponsive, Obese HEENT: Atraumatic, Normocephalic, PERRLA, Scleral icterus Neck: Supple, 2+ carotid pulse no bruit, JVD not distended Respiratory: Clear to auscultation bilaterally, Normal air movement Cardiovascular: Normal pulses, Regular rate/rhythm, Normal S1 S2 Gastrointestinal: Normal bowel sounds, Soft and benign, Non-distended, Ascites (minimal ) Musculoskeletal: No clubbing, No swelling Integumentary: No rashes, No breakdown Neurological: Abnormal reflexes - Studies Laboratory Data (last 24 hrs) 11/28/20 19:25: PT 18.7 H, INR 1.62, APTT 33.4 11/28/20 19:25: WBC 5.30, Hgb 9.2 L, Hct 28.9 L, Plt Count 62 L 11/28/20 19:25: Sodium 147 H, Potassium 4.2, BUN 9, Creatinine 0.64, Glucose 86, Magnesium 1.8, Total Bilirubin 3.0 H, AST 131 H, ALT 67, Alkaline Phosphatase 108, Lipase 156 Imagings Data: Head CT-negative for acute infarct Assessment and Plan - Problems (Diagnosis) (1) Methamphetamine abuse Current Visit: Yes Status: Acute (2) Hepatic encephalopathy Current Visit: No Status: Acute (3) Hypoalbuminemia Current Visit: No Status: Acute (4) Liver cirrhosis Current Visit: No Status: Acute - Plan #Hepatic encephalopathy-recurrent, likely due to on nonadherence with lactulose -start lactulose 30 g q.2 hr via NG tube. -follow serum ammonia level Q 12 -start gentle IV fluid hydration with D51/2 NS -avoid hepatic toxins -monitor neuro status with improving ammonia level next neck pain #Methamphetamines use-follow withgentle hydration. Will do drug cessation counselling when patient more responsive #History of liver cirrhosis-resume meds when more stable # DVT prophylaxis-SCDs, avoid heparin since history of coagulopathy # mild hypernatremia-we do gentle hypotonic fluid # advanced directive-full code - Advance Directives Does patient have a Living Will: No Does patient have a Durable POA for Healthcare: No Physician Review: Patient Assessed, Agree with Above Assessment and Plan Time Spent Managing Pts Care (In Minutes): 60
[2020-11-28] MEDS ORDERED: LACTULOSE 20 GM/30 ML UCUP NG SCH (23:45)
[2020-11-28] MEDS: LACTULOSE 20 GM/30 ML UCUP NG SCH (23:56)
[2020-11-29] MEDS: LACTULOSE 20 GM/30 ML UCUP NG SCH ×13 (01:56→22:46)
[2020-11-29] MEDS: D5 0.45 NS 1,000 ML IV SCH ×3 (03:29→12:59)
[2020-11-29 04:13] VITALS: BMI 29.2
[2020-11-29 05:24] LABS: Absolute Lymphocytes (CBC) 1.6 K/uL (0.7-4.9); Basophils % 0.8 % (0-1.3); Hematocrit 30.1 % (36.0-45.0); Lymphocytes % 23.4 % (15.3-44.8); MPV 10.2 fL (7.6-11.3); RBC Red Blood Cell Count 3.37 M/uL (3.86-4.86)
[2020-11-29 05:35] LABS: Albumin 1.8 g/dL (3.4-5.0); Bilirubin Total 3.4 mg/dL (0.2-1.0); Potassium 4.3 mmol/L (3.5-5.1); Protein, Total 5.3 g/dL (6.4-8.2)
--- NOTE | 2020-11-29 11:27 | P.PN ---
Subjective Date of Service: 11/29/20 Chief Complaint: Altered mental status Patient remained unresponsive. She has anasarca. Physical Examination - Vital Signs Temperature: 98.1 F Blood Pressure: 156/85 Pulse: 112 Respirations: 18 Pulse Ox (%): 95 - Physical Exam General: Unresponsive, Other (Anasarca) HEENT: Atraumatic, PERRLA Neck: Supple, JVD not distended Respiratory: Clear to auscultation bilaterally, Diminished Cardiovascular: Regular rate/rhythm, Edema (3+ bilateral lower extremity and upper extremity edema.) Gastrointestinal: Soft and benign, Non-distended, No tenderness Musculoskeletal: Swelling (Bilateral legs and hands.) Integumentary: No rashes Neurological: Other (Unresponsive) - Studies Laboratory Data (last 24 hrs) 11/28/20 19:25: PT 18.7 H, INR 1.62, APTT 33.4 11/28/20 19:25: WBC 5.30, Hgb 9.2 L, Hct 28.9 L, Plt Count 62 L 11/28/20 19:25: Sodium 147 H, Potassium 4.2, BUN 9, Creatinine 0.64, Glucose 86, Magnesium 1.8, Total Bilirubin 3.0 H, AST 131 H, ALT 67, Alkaline Phosphatase 108, Lipase 156 Microbiology Data (last 24 hrs): 11/28/20 20:40 Blood - Blood Anaerobic Blood Culture - Final Assessment And Plan - Current Problems (Diagnosis) (1) Hepatic encephalopathy Current Visit: No Status: Acute (2) Anasarca Current Visit: Yes Status: Acute (3) Methamphetamine abuse Current Visit: Yes Status: Acute (4) Liver cirrhosis Current Visit: No Status: Acute (5) Anemia Current Visit: Yes Status: Acute (6) Thrombocytopenia Current Visit: Yes Status: Acute - Plan Continue lactulose via NGT. Hydrate via NGT. Reduce IV D5 1/2 NS to maintain rate of 50 mL/hour. Monitor ammonia level daily. Monitor renal function. Rifaximin via NGT if possible. Neurochecks. SCD for DVT prophylaxis Monitor CBC. Physician Review: Patient Assessed, Agree with Above Assessment and Plan
--- NOTE | 2020-11-29 11:59 | RAD REPORT ---
EXAM DESCRIPTION: RAD - Chest Single View - 11/29/2020 10:00 am CLINICAL HISTORY: NGT patency Chest pain. COMPARISON: Chest Single View dated 11/22/2020; Chest Single View dated 11/01/2020; Chest Single View d ated 10/22/2020; Chest Single View dated 06/23/2020; Abdomen Pelvis W Contrast dated 11/22/2020 FINDINGS: Portable technique limits examination quality. Several prominent small bowel loops are present in central abdomen. Enteric tube tip is in the stomac h. Pneumoperitoneum not seen.
[2020-11-30] MEDS: LACTULOSE 20 GM/30 ML UCUP NG SCH ×5 (01:16→16:43)
[2020-11-30] MEDS: D5 0.45 NS 1,000 ML IV SCH (04:13)
[2020-11-30 07:01] LABS: ALT/SGPT 61 U/L (12-78); AST/SGOT 114 U/L (15-37); Albumin 1.6 g/dL (3.4-5.0); Alkaline Phosphatase 106 U/L (45-117); BUN Blood Urea Nitrogen 10 mg/dL (7-18); Bicarbonate 22 mmol/L (21-32); Bilirubin Total 3.7 mg/dL (0.2-1.0); Glucose Level 104 mg/dL (74-106); Potassium 3.7 mmol/L (3.5-5.1); Sodium Level 147 mmol/L (136-145)
[2020-11-30 07:23] LABS: Absolute Lymphocytes (CBC) 1.7 K/uL (0.7-4.9); Basophils % 1.3 % (0-1.3); Hematocrit 29.6 % (36.0-45.0); Lymphocytes % 27.2 % (15.3-44.8); MPV 10.2 fL (7.6-11.3); RBC Red Blood Cell Count 3.32 M/uL (3.86-4.86)
--- NOTE | 2020-11-30 07:54 | EKG ---
Test Date: 2020-11-28 Test Time: 19:52:09 Traffic Routing Engineer: FAUSTO MEASUREMENT RESULTS: Intervals: Rate: 118 WY: 116 QRSD: 64 QT: 342 QTc: 479 Purcell: P: 76 WY: 116 QRS: 59 T: 7 INTERPRETIVE STATEMENTS: Undetermined rhythm Low voltage QRS Cannot rule out Anterior infarct, age undetermined Abnormal ECG Compared to ECG 11/22/2020 06:12:09 Myocardial infarct finding now present Sinus tachycardia no longer present Electronically Signed On 11-30-20 07:53:05 SCIENTIFIC SOFTWARE ENGINEER by Josué Park
--- NOTE | 2020-11-30 11:00 | P.PN ---
Subjective Date of Service: 11/30/20 Chief Complaint: Altered mental status Patient mental status has improved slightly. She now opens her eyes to verbal and moves extremities spontaneous. She has anasarca. Physical Examination - Vital Signs Temperature: 98.4 F Blood Pressure: 153/83 Pulse: 97 Respirations: 16 Pulse Ox (%): 98 - Physical Exam General: Other (Somnolent) HEENT: Atraumatic, Other (Dry oral mucosa), Sclerae nonicteric Neck: Supple, JVD not distended Respiratory: Clear to auscultation bilaterally, Normal air movement Cardiovascular: Regular rate/rhythm, Normal S1 S2, Edema (2+ bilateral lower ext remity and upper extremity edema) Gastrointestinal: Normal bowel sounds, Soft and benign, Non-distended, No tenderness Musculoskeletal: Swelling (Bilateral upper extremities and lower extremities) Integumentary: No rashes Neurological: Other (Somnolent. She moves all extremities spontaneously.) - Studies Microbiology Data (last 24 hrs): 11/28/20 20:40 Blood - Blood Anaerobic Blood Culture - Final Assessment And Plan - Current Problems (Diagnosis) (1) Hepatic encephalopathy Current Visit: No Status: Acute (2) Anasarca Current Visit: Yes Status: Acute (3) Methamphetamine abuse Current Visit: Yes Status: Acute (4) Liver cirrhosis Current Visit: No Status: Acute (5) Anemia Current Visit: Yes Status: Acute (6) Thrombocytopenia Current Visit: Yes Status: Acute - Plan Continue lactulose via NGT. Reduce frequency to q.8 hr since ammonia level has normalized. Hydrate via NGT. Discontinue IV fluid. Free water flushes via NGT to treat hypernatremia. Monitor ammonia level daily. Monitor renal function. Rifaximin via NGT if possible. Neurochecks. SCD for DVT prophylaxis Monitor CBC. Physician Review: Patient Assessed, Agree with Above Assessment and Plan
[2020-11-30] MEDS ORDERED: SODIUM CHLORIDE 0.9% 10ML INJ IV PRN (15:52)
[2020-11-30] MEDS: CEFTRIAXONE/SWI 1gm 1 GM/10 ML SYR IV SCH (16:43)
[2020-11-30] MEDS: PANTOPRAZOLE 40 MG INJ IVP SCH (21:20)
[2020-12-01] MEDS: LACTULOSE 20 GM/30 ML UCUP NG SCH ×2 (01:41→08:30)
[2020-12-01 05:40] LABS: Basophils % 0.9 % (0-1.3); Hematocrit 29.7 % (36.0-45.0); Lymphocytes % 22.4 % (15.3-44.8); MPV 9.5 fL (7.6-11.3)
[2020-12-01 05:57] LABS: Albumin 1.5 g/dL (3.4-5.0); Bilirubin Total 3.6 mg/dL (0.2-1.0); Potassium 3.5 mmol/L (3.5-5.1); Protein, Total 4.8 g/dL (6.4-8.2)
[2020-12-01] MEDS: PANTOPRAZOLE 40 MG INJ IVP SCH (08:30)
[2020-12-01] MEDS: CEFTRIAXONE/SWI 1gm 1 GM/10 ML SYR IV SCH (08:31)
[2020-12-01 12:06] VITALS: BP 172/88; TEMP 96.1
--- NOTE | 2020-12-01 12:28 | P.DS ---
Admission Date: 11/28/20 Discharge Date: 12/01/20 Disposition: ROUTINE DISCHARGE Discharge Condition: FAIR Reason for Admission: Altered mental status - Problems (1) Hepatic encephalopathy Current Visit: No Status: Acute (2) Anasarca Current Visit: Yes Status: Acute (3) Methamphetamine abuse Current Visit: Yes Status: Acute (4) Liver cirrhosis Current Visit: No Status: Acute (5) Anemia Current Visit: Yes Status: Acute (6) Thrombocytopenia Current Visit: Yes Status: Acute Brief History of Present Illness: 50-year-old woman with a history of liver cirrhosis and hepatic encephalopathy was brought to the emergency department due to progressive confusion and altered mental status. Patient was obtunded on arrival to the ED. CT head was negative for acute disease. Her urine toxicology screen was positive for amphetamine. Her serum ammonia level was elevated to 224. Patient diagnosed with hepatic encephalopathy. NG-tube inserted and patient started on lactulose. She was admitted for further management. Hospital Course: Patient admitted to the medical floor, hydrated with IV fluid, and started on schedule lactulose via NGT. Her ammonia level significantly improved within 24 hours. Patient mental status gradually improved and was fully awake within 48 hr of admission. She was placed on IV Rocephin prophylactically. Her urine was negative for UTI. Patient requested to go home once she became fully awake. Noted her blood pressure was elevated with systolic up to 180. Patient's old records reviewed and noted she has been mostly hypertension during her hospital stays over the past few months. Patient given a dose of oral hydralazine and discharged with amlodipine 5 mg daily for blood pressure control. Patient has clinically improved. Altered mental status has resolved. She is discharged per her request. Vital Signs/Physical Exam: Temp Pulse Resp BP Pulse Ox 96.1 F L 95 H 18 172/88 H 100 12/01/20 12:00 12/01/20 12:00 12/01/20 12:00 12/01/20 12:00 12/01/20 12:00 General: Alert, In no apparent distress, Oriented x3 HEENT: Mucous membr. moist/pink Neck: Supple, JVD not distended Respiratory: Clear to auscultation bilaterally, Normal air movement Cardiovascular: Edema (2+ bilateral lower extremity edema) Gastrointestinal: Normal bowel sounds, Soft and benign, Non-distended, No tenderness Musculoskeletal: No erythema Integumentary: No rashes Neurological: Normal speech, Normal strength at 5/5 x4 extr, Cranial nerves 3-12 intact Laboratory Data at Discharge: WBC 4.50 K/uL (4.3-10.9) D 12/01/20 05:25 Hgb 9.1 g/dL (12.0-15.0) L 12/01/20 05:25 Hct 29.7 % (36.0-45.0) L 12/01/20 05:25 Plt Count 39 K/uL (152-406) L* D 12/01/20 05:25 PT 18.7 SECONDS (9.5-12.5) H 11/28/20 19:25 INR 1.62 11/28/20 19:25 APTT 33.4 SECONDS (24.3-36.9) 11/28/20 19:25 Sodium 146 mmol/L (136-145) H 12/01/20 05:25 Potassium 3.5 mmol/L (3.5-5.1) 12/01/20 05:25 BUN 8 mg/dL (7-18) 12/01/20 05:25 Creatinine 0.69 mg/dL (0.55-1.3) 12/01/20 05:25 Glucose 148 mg/dL (74-106) H 12/01/20 05:25 Magnesium 1.8 mg/dL (1.8-2.4) 11/28/20 19:25 Total Bilirubin 3.6 mg/dL (0.2-1.0) H 12/01/20 05:25 AST 110 U/L (15-37) H 12/01/20 05:25 ALT 59 U/L (12-78) 12/01/20 05:25 Alkaline Phosphatase 105 U/L (45-117) 12/01/20 05:25 Lipase 156 U/L (73-393) 11/28/20 19:25 Home Medications: Furosemide 40 mg PO BID 06/24/20 Spironolactone 25 mg PO BID 11/02/20 Ciprofloxacin HCl 500 mg PO BID 7 Days #14 tablet 11/06/20 Lactulose 45 ml PO TID #4000 ml 11/06/20 Rifaximin [Xifaxan] 550 mg PO BID #60 11/24/20 Amlodipine [Norvasc*] 5 mg PO DAILY #30 tab 12/01/20 New Medications: Amlodipine [Norvasc*] 5 mg PO DAILY #30 tab Diet: AHA Activity: Ad carmen Followup: NONE,NONE [Primary Care Provider] - Seven Emmanuel MD [ASSOCIATE-ACTIVE - CAN ADMIT] - (within 2 weeks.) Time spent managing pt's care (in minutes): 33
[2020-12-01] MEDS ORDERED: HYDRALAZINE HCL 25 MG TABLET PO ONE (12:32)
[2020-12-01 13:26] VITALS: O2SAT 100
[2020-12-01] MEDS ORDERED: Rifaximin 550 MG Tab PO SCH (21:00)
== END 2020-12-01 13:30 | disposition home or self-care (01) | DRG 442 ==
LOC: ER 18:49 → ERHOLD 23:30 → 2ND 11-29 00:21
PROVIDERS: ADMIT Internal Medicine; ATTEND Internal Medicine
DX: K72.90 Hepatic failure, unspecified without coma (principal); E87.0 Hyperosmolality and hypernatremia; D64.9 Anemia, unspecified; K74.60 Unspecified cirrhosis of liver; F15.10 Other stimulant abuse, uncomplicated; D69.6 Thrombocytopenia, unspecified; E88.09 Other disorders of plasma-protein metabolism, not elsewhere classified; K21.9 Gastro-esophageal reflux disease without esophagitis; I10 Essential (primary) hypertension; R60.1 Generalized edema; Z88.0 Allergy status to penicillin; Z88.8 Allergy status to other drugs, medicaments and biological substances; Z85.038 Personal history of other malignant neoplasm of large intestine; Z79.899 Other long term (current) drug therapy; Z20.822 Contact with and (suspected) exposure to COVID-19
CPT/HCPCS: 36415; 51702; 70450; 71045; 80048; 80053; 80076; 80307; 81003; 82140; 82550; 82553; 82947; 83605; 83690; 83735; 84484; 85025; 85610; 85730; 87040; 93005; 94760; 99285; C9113; J0696; J2270; J7799; U0003

== ENCOUNTER 2020-12-07 14:54 | Inpatient (IN) | payer SELFPAY ==
--- OUTSIDE RECORDS SUMMARY | 2020-12-07 15:21 | XMS REPORT | Clinical Summary ---
:1970 Author Organization [facility] Address [address] [place] [address] Care Team Providers Name Role Phone Unavailable [...] encephalopathy by mouth 2 (two) times daily. potassium chloride Take 1 90 tablet 3 [...] tablet by mouth 1 (Reorde r) daily. pantoprazole Take 1 60 tablet 0 10/24/2020 d (PROTONIX) 40 MG tablet (40 1 tablet mg total) by mouth 2 (two) times daily for 30 days. Active Problems Problem Noted Date Black stools 10/24/2020 Cirrhosis 10/24/2020 Volume overload 10/24/2020 Encounters Date Type Specialty Care Team Description 11/20/2020 Telephone Hepatology Gin Anthony, Em Land MA 11/10/2020 Telephone Transplant Hepatology , Fabiana Insur adele Call R 10/28/2020 Abstract Transplant Hepatology Erasmo Vivar Jr., MD 10/23/2020 Anesthesia Event Gastroenterology Malcom Rodriguez MD 10/23/2020 Surgery Gastroenterology Ruth Toney [facility] DAMON Scott MD 10/22/2020 Hospital General Internal Anali, Gastrointes tinal hemorrhage, unspecified gastrointestinal hemorrhage type (Primary Dx); - Encounter Medicine MD Audrey Humphrey; 10/24/2020 [place]icette, Alcoholic cirrh osis of liver with ascites (HCC) [facility] 10/22/2020 Orders Only Internal Medicine Milagro Briones MD 10/22/2020 Telephone Gastroenterology Ruth Toney MD after 12/07/2019 Social History Tobacco Use Types Packs/Day Years Used Date Current Some Day Smoker Smokeless Tobacco: Never Used Alcohol Use Drinks/Week oz/Week Comments Not Currently Sex Assigned at Date Recorded Not on file Last Filed Vital Signs Vital Sign Reading Time Taken Comments Blood Pressure 128/77 10/24/2020 12:45 PM SPECIALTY FINISHING UTILITY PERSON Pulse 95 10/24/2020 12:45 PM [employer]TY FINISHING UTILITY PERSON Temperature 36.8 C (98.2 F) 10/24/2020 12:45 PM [employer]TY FINISHING UTILITY PERSON Respiratory Rate 16 10/24/2020 12:45 PM SPECIALTY FINISHING UTILITY PERSON Oxygen Saturation 99% 10/24/2020 12:45 PM SPECIALTY FINISHING UTILITY PERSON Inhaled Oxygen Concentration - - Weight 88.1 kg (194 lb 5 oz) 10/22/2020 6:07 PM SPECIALTY FINISHING UTILITY PERSON Height 162.6 cm (5' 4") 10/22/2020 6:07 PM SPECIALTY FINISHING UTILITY PERSON Body Mass Index 33.35 10/22/2020 6:07 PM SPECIALTY FINISHING UTILITY PERSON Plan of Treatment Health Maintenance Due Date [...] 10/24/2020 2:23 Resul ts for this PM [employer] FINISHING UTILITY PERSON procedure are i n the results section. CBC W/PLT COUNT & Routine 10/24/2020 2:19 Result s for this AUTO DIFFERENTIAL AM SPECIAL[employer] FINISHING UTILITY PERSON procedure are in the results section. PROTHROMBIN TIME/INR Routine 10/24/2020 2:19 Res ults for this AM [employer] FINISHING UTILITY PERSON procedure are i n the results section. CBC W/PLT COUNT & Routine 10/24/2020 2:19 Result s for this AUTO DIFFERENTIAL AM [employer] FINISHING UTILITY PERSON procedure are in the results section. COMPREHENSIVE Routine 10/24/2020 2:19 Results fo r this METABOLIC PANEL AM [employer] FINISHING UTILITY PERSON procedure ar e in the results section. REPORT OF PROCEDURE - 10/23/2020 1:12 ENDOSCOPY URL PM SPECIALTY FINISHING UTILITY PERSON UPPER ENDOSCOPY 10/23/2020 9:39 Gastrointestinal AM SPECIALTY FINISHING UTILITY PERSON hemorrhage, unspecified gastrointestinal hemorrhage type COMPREHENSIVE Routine 10/23/2020 5:15 Results fo r this METABOLIC PANEL AM [employer] FINISHING UTILITY PERSON procedure ar e in the results section. MAGNESIUM Routine 10/23/2020 5:15 Results for this AM [employer] FINISHING UTILITY PERSON procedure are i n the results section. CBC W/PLT COUNT & Routine 10/23/2020 5:14 Result s for this AUTO DIFFERENTIAL AM SPECIAL[employer] FINISHING UTILITY PERSON procedure are in the results section. MITOCHONDRIAL AB Routine 10/23/2020 5:14 Results for this TITER AM [employer] FINISHING UTILITY PERSON procedure are i n the results section. MITOCHONDRIAL AB Routine 10/23/2020 5:14 Results for this SCREEN AM [employer] FINISHING UTILITY PERSON procedure are i n the results section. HEPATITIS A ANTIBODY, Routine 10/23/2020 5:14 Re sults for this IGG AM SPECIALTY FINISHING UTILITY PERSON procedure are i n the results section. HEPATITIS B CORE Routine 10/23/2020 5:14 Results for this ANTIBODY, TOTAL AM [employer] FINISHING UTILITY PERSON procedure ar e in the results section. ANTI-MITOCHONDRIAL Routine 10/23/2020 5:14 AB, REFLEX TO TITER AM SPECIALTY FINISHING UTILITY PERSON ANTI-NUCLEAR ANTIBODY Routine 10/23/2020 5:14 Re sults for this (LUCAS) AM SPECIALTY FINISHING UTILITY PERSON procedure are i n the results section. ACTIN (SMOOTH MUSCLE) Routine 10/23/2020 5:14 Re sults for this ANTIBODY, IGG AM SPECIALTY FINISHING UTILITY PERSON procedure are in the results section. RETICULOCYTE COUNT Routine 10/23/2020 5:14 Resul ts for this AM [employer] FINISHING UTILITY PERSON procedure are i n the results section. FOLATE, SERUM Routine 10/23/2020 5:14 Results fo r this AM SPECIAL[employer] FINISHING UTILITY PERSON procedure are i n the results section. VITAMIN B12 Routine 10/23/2020 5:14 Results for this AM [employer] FINISHING UTILITY PERSON procedure are i n the results section. IRON, TIBC, % SAT. Routine 10/23/2020 5:14 Resul ts for this (WITHOUT FERRITIN) AM [employer]TY FINISHING UTILITY PERSON procedure are in the results section. FERRITIN Routine 10/23/2020 5:14 Results for this AM [employer] FINISHING UTILITY PERSON procedure are i n the results section. CERULOPLASMIN Routine 10/23/2020 5:14 Results fo r this AM [employer] FINISHING UTILITY PERSON procedure are i n the results section. ALPHA FETOPROTEIN Routine 10/23/2020 5:14 Result s for this (AFP), TUMOR MARKER AM SPECIALTY FINISHING UTILITY PERSON procedur e are in the results section. [id number]\\, Routine 10/23/2020 5:14 Re sults for this SERUM AM [employer] FINISHING UTILITY PERSON procedure are i n the results section. HEPATITIS PANEL, Routine 10/23/2020 5:14 Results for this ACUTE AM [employer]ING UTILITY PERSON procedure are i n the results section. HEPATITIS C GENOTYPE Routine 10/23/2020 5:14 Res ults for this AM [employer] FINISHING UTILITY PERSON procedure are i n the results section. HEPATITIS C PCR, Routine 10/23/2020 5:14 Results for this QUANTITATIVE AM [employer] FINISHING UTILITY PERSON procedure are i n the results section. PROTHROMBIN TIME/INR Routine 10/23/2020 5:14 Res ults for this AM [employer] FINISHING UTILITY PERSON procedure are i n the results section. CBC W/PLT COUNT & Routine 10/23/2020 5:14 Result s for this AUTO DIFFERENTIAL AM [employer]ISHING UTILITY PERSON procedure are in the results section. HEMOGLOBIN AND Routine 10/23/2020 5:14 Results f or this HEMATOCRIT AM [employer] FINISHING UTILITY PERSON procedure are i n the results section. US ABDOMINAL WITH NADINE 10/22/2020 9:15 Result s for this DOPPLER PM [employer] FINISHING UTILITY PERSON procedure are i n the results section. URINALYSIS W/ REFLEX Routine 10/22/2020 5:23 Res ults for this URINE CULTURE PM [employer] FINISHING UTILITY PERSON procedure are in the results section. SARS-COV2/RT-PCR STAT 10/22/2020 3:22 Results for this ([facility] & REF LABS) PM [employer] FINISHING UTILITY PERSON procedure are in the results section. BLOOD CULTURE Routine 10/22/2020 3:07 Results fo r this PM [employer] FINISHING UTILITY PERSON procedure are i n the results section. CBC W/PLT COUNT & STAT 10/22/2020 2:07 Result s for this AUTO DIFFERENTIAL PM [employer] FINISHING UTILITY PERSON procedure are in the results section. TROPONIN I STAT 10/22/2020 2:07 Results for this PM [employer] FINISHING UTILITY PERSON procedure are i n the results section. HEPATIC FUNCTION STAT 10/22/2020 2:07 Results for this PANEL PM [employer] FINISHING UTILITY PERSON procedure are i n the results section. BASIC METABOLIC PANEL STAT 10/22/2020 2:07 Re sults for this (7) PM [employer]ISHING UTILITY PERSON procedure are i n the results section. CBC W/PLT COUNT & STAT 10/22/2020 2:07 Result s for this AUTO DIFFERENTIAL PM [employer] FINISHING UTILITY PERSON procedure are in the results section. ECG 12-LEAD Routine 10/22/2020 2:01 Results for this PM [employer]ISHING UTILITY PERSON procedure are i n the results section. ECG 12-LEAD Routine 10/22/2020 2:01 PM [employer] FINISHING UTILITY PERSON Procedure Note - Interface, External Ris In - 10/23/2020 12:17 PM [employer] FINISHING UTILITY PERSON Ventricular Rate 83 BPM Atrial Rate 83 BPM P-R Interval 110 ms QRS Duration 76 ms Q-T Interval 432 ms QTC Calculation(Bazett) 507 ms P Aulander 61 degrees R Aulander 28 degrees T Aul[place] 34 degrees Sinus rhythm with short AR Low voltage QRS Cannot rule out Anterior inf arct , age undetermined Prolonged QT Abnormal ECG No previous ECGs available XR CHEST 1 VIEW STAT 10/22/2020 1:46 PM SPECIALTY FINISHING UTILITY PERSON R esults for this PORTABLE/BEDSIDE procedure a re in the results section . after 12/07/2019 Results US abdomen limited (10/24/2020 2:23 PM SPECIALTY FINISHING UTILITY PERSON) Specimen Narrative Performed At FINAL REPORT [employer] Limited abdominal ultrasound CLINICAL HISTORY: Ascites FINDINGS: A limited abdominal ultrasou nd was performed and only a trace amount of fluid was seen. Therefor e a paracentesis was not performed. Signed: Alex Gonzalez MD Report Verified Date/Time: 10/24/2020 17:32:34 Reading Location: [facility] [id number] Ultrasoun d Reading Room Procedure Note Interface, External Ris In - 10/24/2020 5:34 PM SPECIALTY FINISHING UTILITY PERSON FINAL REPORT Limited abdominal ultrasound CLINICAL HISTORY: Ascites FINDINGS: A limited abdominal ultrasoun d was performed and only a trace amount of fluid was seen. Therefor e a paracentesis was not performed. Signed: Alex Gonzalez MD Report Verified Date/Time: 10/24/2020 1 7:32:34 Reading Location: [facility] [id number] Ultrasoun d Reading Room Performing Organization Address City/State/Zipcode Phone Number [facility] CBC with platelet count + automated diff (10/24/2020 2:19 AM SPECIALTY FINISHING UTILITY PERSON)Only the most recent of3 resultswithin the time period is included. Pathologist Sig nature WBC 5.3 3.5 - 10.5 [facility] K/L [facility] RBC 3.40 (L) 3.93 - 5.22 [facility] M/L [facility] Hemoglobin 9.6 (L) 11.2 - 15.7 [facility] GM/DL [facility] Hematocrit 31.7 (L) 34.1 - 44.9 % [facility] MCV 93.2 79.4 - 94.8 fL [facility] MCH 28.2 25.6 - 32.2 pg [facility] MCHC 30.3 (L) 32.2 - 35.5 [facility] GM/DL [facility] RDW 18.6 (H) 11.7 - 14.4 % [facility] Platelets 62 (L) 150 - 450 K/CU [facility] MPV 13.0 (H) 9.4 - 12.3 fL [facility] nRBC 0 0 - 0 /100 WBC [facility] % Neutros 52 % [facility] % Lymphs 34 % [facility] % Monos 10 % [facility] % Eos 3 % [facility] % Baso 1 % [facility] # Neutros 2.73 1.56 - 6.13 [facility] # Lymphs 1.81 1.18 - 3.74 [facility] # Monos 0.54 (H) 0.24 - 0.36 [facility] # Eos 0.14 0.04 - 0.36 [facility] # Baso 0.05 0.01 - 0.08 [facility] Immature 0 0 - 1 % [facility] Specimen Blood Performing Organization Address City/State/Zipcode Phone Number [facility] [address] [place] [address] CENTER Prothrombin time/INR (10/24/2020 2:19 AM SPECIALTY FINISHING UTILITY PERSON)Only the most recent of2 results within the time period is included. Pathologist Sig nature Protime 19.8 (H) 11.9 - 14.2 seconds [facility] INR 1.75 <=5.90 [facility] Specimen Blood Narrative Performed At Effective 03/14/2019: PT Reference Range [facility] Change New: 11.9-14.2 Previous: 11.7-14.7 RECOMMENDED COUMADIN/WARFARIN INR THERAPY RANGES STANDARD DOSE: 2.0-3.0 Includes: PROPHYLAXIS for venous thrombosis, systemic embolization; TREATMENT for venous thrombosis and/or pulmonary embolus. HIGH RISK: Target INR is 2.5-3.5 for patients wiht mechanical heart valves. Performing Organization Address City/State/Zipcode Phone Number [facility] [address] [place] [address] CENTER Comprehensive metabolic panel (10/24/2020 2:19 AM SPECIALTY FINISHING UTILITY PERSON)Only the most recent of2 resultswithin the time period is included. Protein, Total 4.7 (L) 6.0 - 8.3 [facility] gm/dL [facility] Albumin 1.7 (L) 3.5 - 5.0 [facility] g/dL [facility] Alkaline 114 40 - 150 U/L [facility] Phosphatase [facility] Total Bilirubin 3.0 (H) 0.2 - 1.2 [facility] mg/dL [facility] Sodium 139 136 - 145 [facility] meq/L [facility] Potassium 3.2 (L) 3.5 - 5.1 [facility] meq/L [facility] Chloride 106 98 - 107 [facility] meq/L [facility] CO2 27 22 - 29 meq/L [facility] BUN 12 7 - 21 mg/dL [facility] Creatinine 0.78 0.57 - 1.25 [facility] mg/dL [facility] Glucose 127 (H) 70 - 105 [facility] mg/dL [facility] Calcium 7.0 (L) 8.4 - 10.2 [facility] mg/dL [facility] AST 114 (H) 5 - 34 U/L [facility] ALT 58 (H) 6 - 55 U/L [facility] EGFR 78Comment: mL/min/1.73 [facility] ESTIMATED GFR IS sq m [facility] NOT ACCURATE [facility]ENTER CREATININE CLEARANCE IN PREDICTING GLOMERULAR FILTRATION RATE. ESTIMATED GFR IS NOT APPLICABLE FOR DIALYSIS PATIENTS. Specimen Blood Narrative Performed At Flue Tile Press Operator ID - ANANDA Cuevas [facility] Specimen slightly icteric Performing Organization Address [facility] Phone Number [address] [address] CENTER REPORT OF PROCEDURE - ENDOSCOPY URL (10/23/2020 1:12 PM SPECIALTY FINISHING UTILITY PERSON) Narrative Performed At This result has an attachment that is no t available. Magnesium (10/23/2020 5:15 AM SPECIALTY FINISHING UTILITY PERSON) Pathologist [facility] nature Magnesium 1.8 1.6 - 2.6 mg/dL [facility] Specimen Blood Narrative Performed At Fl[employer] Tile Press Operator ID - [place] Doll [facility] Performing Organization Address [facility] Phone Number [address] [address] CENTER Mitochondrial Ab Titer (10/23/2020 5:14 AM SPECIALTY FINISHING UTILITY PERSON) Mitochondrial Ab TNP <1:20 [facility] Titer Comment: INCORPORATED Test Not Performed. Screening test Negative or Not Det ected. Titer not performed. Specimen Blood Narrative Performed At Performing Lab [facility] EZ [address] [place] Service[place] [address] [address] [place] [address] Wilder Ochoa MD, PhD, BEATRICE Performing Organization Address [facility] Phone Number [facility] [place] [address] [facility] Mitochondrial Ab Screen (10/23/2020 5:14 AM SPECIALTY FINISHING UTILITY PERSON) Anti-Mitochond NEGATIVE NEGATIVE [facility] Abs Comment: INCORPORATED This test was developed and its analytical performance characteristics have been determined by [employer] [facility]. It has not been cleared or approved by FDA. This assay has been validated pursuant to the CLIA regulations and is used for clini vasile purposes. Specimen Blood Narrative Performed At Performing Lab [facility] P[place]ieve EZ [employer] Instit[place] [address] [place] [address] Wilder Ochoa MD, PhD, BEATRICE Performing Organization Address [facility]/Zipcode Phone Number [place] [address] [facility] Hepatitis A antibody, IgG (10/23/2020 5:14 AM SPECIALTY FINISHING UTILITY PERSON) Pathologist Sig nature Hep A IgG Reactive (A) Nonreactive [facility] Specimen Blood Narrative Performed At [employer] Press Operator ID - [place] M [facility] Performing Organization Address City/[facility] Phone Number [facility] [address] [place] [address] CENTER Anti-Mitochondrial Ab, reflex to titer (10/23/2020 5:14 AM SPECIALTY FINISHING UTILITY PERSON) Pathologist Sig nature Scan Result [facility] D Specimen Blood Narrative Performed At This result has an attachment that is no t available. Performing Organization Address [facility] Phone Number [place] [address] [facility] Iron, TIBC, % sat. (without ferritin) (10/23/2020 5:14 AM SPECIALTY FINISHING UTILITY PERSON) Pathologist Sig [facility] Iron 129.0 40.0 - 160.0 [facility] ug/dL [facility] TIBC 178 (L) 250 - 450 ug/dL [facility] Iron % Saturation 72 (H) 20 - 55 % [facility] Specimen Blood Narrative Performed At [employer] T[employer] Press Operator ID - [place] M [facility] Performing Organization Address City/[facility] Phone Number [address] [address] CENTER Actin (Smooth Muscle) Antibody, IgG (10/23/2020 5:14 AM SPECIALTY FINISHING UTILITY PERSON) Anti-Smooth 23 (H) See Note: U [facility] [...] Lab [facility] EZ [facility] [place] [address] [place] [address] Wilder Ochoa MD, PhD, BEATRICE Performing Organization Address City/[facility] Phone Number [place] [address] [facility] [id number] (10/23/2020 5:14 AM SPECIALTY FINISHING UTILITY PERSON) Pathologist Sig nature A-1 Antitrypsin 102.40 90.00 - 200.00 [facility] mg/dL [facility] Specimen Blood Narrative Performed At Fl[employer] Tile Press Operator RIGOBERTO Doll [facility] Performing Organization Address [facility] Phone Number [address] [address] CENTER Hemoglobin and hematocrit (10/23/2020 5:14 AM SPECIALTY FINISHING UTILITY PERSON) Pathologist Sig nature Hemoglobin 9.0 (L) 11.2 - 15.7 GM/DL [facility] Hematocrit 30.0 (L) 34.1 - 44.9 % [facility] Specimen Blood Performing Organization Address [facility] Phone Number [address] [address] [place] Ceruloplasmin (10/23/2020 5:14 AM SPECIALTY FINISHING UTILITY PERSON) Pathologist Sig nature Ceruloplasmin 27 18 - 53 mg/dL [facility] [place] Specimen Blood Narrative Performed At Performing Lab [facility] *BARB [facility], [address] [place] [id number] Dahiana Small MD Performing Organization Address City/[facility]/Zipcode Phone Number [place] [address] INCORPORATED [address] [facility] Alpha fetoprotein (AFP), tumor marker (10/23/2020 5:14 AM SPECIALTY FINISHING UTILITY PERSON) Pathologist Sig nature Alpha-Fetoprotein <2.0 <10.0 ng/mL [facility] Specimen Blood Narrative Performed At Fl[employer] Tile Press Operator ID - [place] Doll [facility] Performing Organization Address City/[facility] Phone Number [facility] [address] [place] [address] [place] Hepatitis panel, acute (10/23/2020 5:14 AM SPECIALTY FINISHING UTILITY PERSON) Pathologist Sig nature Hep A IgM Nonreactive Nonreactive [facility] Hep B C IgM Nonreactive Nonreactive [facility] Hepatitis C Ab Reactive (A) Nonreactive [facility] HBsAg Screen Nonreactive Nonreactive [facility] Specimen Blood Narrative Performed At Flue Tile Press Operator ID - [place] [facility] Performing Organization Address [facility] Phone Number [address] [id number] CENTER Hepatitis B core antibody, total (10/23/2020 5:14 AM SPECIALTY FINISHING UTILITY PERSON) Pathologist Sig [facility] Hep B Core Total Ab Nonreactive Nonreactive [facility] Specimen Blood Narrative Performed At Flue Tile Press Operator ID - [place] [facility] Performing Organization Address City/[facility] Phone Number [address] [address] CENTER Hepatitis C genotype (10/23/2020 5:14 AM SPECIALTY FINISHING UTILITY PERSON) HCV Genotype, 3 [facility] LiPA Comment: INCORPORATED The method used in this test is RT-PCR and reverse hybridization (Line Probe) of the 5' UTR and core region of the HCV genome. The analytical performance characteristics of this assay have been determined by [employer] [facility]. The modifications have not been cleared or approved by the FDA. This assay has been validated pursuant to the CLIA regulations and is used for clinical purposes. For additional information, please refer to http://education.[employer].com /faq/HCVGenotypi ng (This link id being provided for informational/ educational purposes only.) Specimen Blood Narrative Performed At Performing Lab [facility] *QDID [employer] [facility] [employer] [address] [place] [address] Arnie Phillips MD Performing Organization Address City/State/Zipcode Phone Number [place] [address] [facility] Hepatitis C PCR, Quantitative (10/23/2020 5:14 AM SPECIALTY FINISHING UTILITY PERSON) Pathologist Sig nature HCV PCR, Quantitative 282,000 (H) <15 IU/mL [facility] Specimen Blood Narrative Performed At This test uses a Real-Time Polymerase Chain [facility] Reaction (RT-PCR) methodology and was performed using [employer] Ampliprep/MARIXA TaqMan HCV test kit version 2.0 ([employer]). Reportable range for this assay is 15 - 100,000,000 IU per mL (1.18 - 8.00 Log IU/mL). Performing Organization Address City/[facility]/Zipcode Phone Number [address] [address] CENTER Reticulocyte count (10/23/2020 5:14 AM SPECIALTY FINISHING UTILITY PERSON) Pathologist Sig nature % Retic 4.6 (H) 0.5 - 1.7 % [facility] Specimen Blood Narrative Performed At Flue Tile Press Operator ID - [id number] [facility] Performing Organization Address City/[facility]/Zipcode Phone Number [address] [address] CENTER Anti-Nuclear Antibody (LUCAS) (10/23/2020 5:14 AM SPECIALTY FINISHING UTILITY PERSON) Pathologist Sig nature LUCAS Negative Negative [facility] Specimen Blood Narrative Performed At Test performed by IFA method. [facility] Test performed by IFA method. Performing Organization Address City/[facility]/Zipcode Phone Number [facility] [address] CENTER Folate, Serum (10/23/2020 5:14 AM SPECIALTY FINISHING UTILITY PERSON) Pathologist Sig nature Folate 12.30 >=7.00 ng/mL [facility] Specimen Blood Narrative Performed At [employer] Operator ID - AADIXIEID [facility] Performing Organization Address [facility] Phone Number [address] [address] CENTER Ferritin (10/23/2020 5:14 AM SPECIALTY FINISHING UTILITY PERSON) Pathologist Sig nature Ferritin 71.00 5.00 - 275.00 ng/mL [facility] Specimen Blood Narrative Performed At [employer] Operator ID - AADIXIEID [facility] Performing Organization Address [facility] Phone Number [address] [address] CENTER Vitamin B12 (10/23/2020 5:14 AM SPECIALTY FINISHING UTILITY PERSON) Pathologist Sig nature Vitamin B12 1,494 (H) 213 - 816 pg/mL [facility] Specimen Blood Narrative Performed At [employer] Operator ID - [place] Doll [facility] Performing Organization Address [facility] Phone Number [address] [phone] CENTER US abdominal with doppler (10/22/2020 9:15 PM SPECIALTY FINISHING UTILITY PERSON) Specimen Narrative Performed At FINAL REPORT [facility] Ultrasound of the Abdomen, with Doppler Clinical [...] main portal vein. Small abdominal ascites. Signed: Mial Richardson MD Report Verified Date/Time: 10/22/2020 21:58:54 Procedure Note Interface, External Ris In - 10/23/2020 2:18 AM SPECIALTY FINISHING UTILITY PERSON FINAL REPORT Ultrasound of the Abdomen, with [...] + Reflex to Culture (10/22/2020 5:23 PM SPECIALTY FINISHING UTILITY PERSON) Color, UA Yellow [facility] Clarity, UA Hazy [facility] Specific [place], 1.024 1.001 - 1.035 [facility] pH, UA 5.5 5.0 - 8.0 [facility] Protein, UA 20 mg/dL (A) Negative [facility] Glucose, UA Negative Negative [facility] Ketones, UA Negative Negative [facility] Bilirubin, UA Negative Negative [facility] Blood, UA Small (A) Negative [facility] Nitrite, UA Negative Negative [facility] Leukocytes, UA Negative Negative [facility] Urobilinogen, UA 0.2 0.2 - 1.0 mg/dL [facility] RBC, UA 1 /HPF [facility] WBC, UA 4 /HPF [facility] Mucus Rare [facility] Squam Epithel, UA 9 /HPF [facility] Specimen Source [facility] Specimen Urine Narrative Performed At [facility] Performing Organization Address City/State/Zipcode Phone Number [facility] [address] [place] [address] CENTER SARS-CoV2/RT-PCR (Asymptomatic ONLY) (10/22/2020 3:22 PM SPECIALTY FINISHING UTILITY PERSON) SARS-COV2/RT-PCR Negative Not Detected, [facility] Negative, See [facility] external report CENTER for linked test SARS-COV-2 [facility] PERFORMING LAB [facility] Specimen Other - Nasopharyngeal wall structure (b tan structure) Narrative Performed At Negative result for this test determines that [facility] SARS-CoV-2 RNA was not present in the [...] the Act. Fact Sheet for Healthcare Providers: https://www.[employer]/sites/default/files/pro duct/documents/Fact_Sheet_HC_Providers_Lyra_SA RS-CoV-2.pdf Fact Sheet for Healthcare Patients: https://www.[employer]/sites/default/files/pro duct/documents/Fact_Sheet_Patients_Lyra_SARS-C oV-2.pdf Performing Laboratory: [address] [place] [address] Performing Organization Address City/[facility]/Zipcode Phone Number [address] [address] [place] Blood Culture - Routine (Right Venipuncture) (10/22/2020 3:07 PM SPECIALTY FINISHING UTILITY PERSON) Pathologist Sig nature Result No growth in 5 days [facility] Specimen Blood - Entire left upper arm (body stru cture) Performing Organization Address [facility]/Zipcode Phone Number [address] [address] [place] Troponin I (not available at [facility] [place]) (10/22/2020 2:07 PM SPECIALTY FINISHING UTILITY PERSON) Pathologist Sig nature Troponin I 0.01 0.00 - 0.03 ng/mL [facility] Specimen Blood Narrative Performed At Troponin I (TnI) levels must be interpreted [facility] in the context of the [...] acidosis, acute neurological disease, and persistent tachyarrhythmia. [employer] Operator ID - ADMIN Performing Organization Address [facility] Phone Number [address] [address] [place] Liver Panel (10/22/2020 2:07 PM SPECIALTY FINISHING UTILITY PERSON) Pathologist Sig nature Protein, Total 4.6 (L) 6.0 - 8.3 gm/dL [facility] Albumin 1.7 (L) 3.5 - 5.0 g/dL [facility] Total Bilirubin 3.5 (H) 0.2 - 1.2 mg/dL [facility] Bilirubin, Direct 1.7 (H) 0.1 - 0.5 mg/dL [facility] Alkaline Phosphatase 106 40 - 150 U/L [facility] AST 132 (H) 5 - 34 U/L [facility] ALT 61 (H) 6 - 55 U/L [facility] Specimen Blood Narrative Performed At [employer] Operator ID - ADMIN [facility] Specimen slightly icteric Performing Organization Address City[facility] Phone Number [address] [address] [place] Basic metabolic panel (Na, K+, Cl, CO2, Glu, Ca, BUN, Cr) (10/22/2020 2:07 PM SPECIALTY FINISHING UTILITY PERSON) Sodium 141 136 - 145 meq/L [facility] Potassium 3.1 (L) 3.5 - 5.1 meq/L [facility] Chloride 107 98 - 107 meq/L [facility] CO2 30 (H) 22 - 29 meq/L [facility] BUN 12 7 - 21 mg/dL [facility] Creatinine 0.65 0.57 - 1.25 [facility] mg/dL [facility] Glucose 90 70 - 105 mg/dL [facility] Calcium 7.0 (L) 8.4 - 10.2 [facility] mg/dL [facility] EGFR 96Comment: ESTIMATED mL/min/1.73 sq [facility] GFR IS NOT m [facility] ACCURATE [place] CREATININE CLEARANCE IN PREDICTING GLOMERULAR FILTRATION RATE. ESTIMATED GFR IS NOT APPLICABLE FOR DIALYSIS PATIENTS. Specimen Blood Narrative Performed At [employer] Operator ID - ADMIN [facility] Specimen slightly icteric Performing Organization Address City[facility] Phone Number [facility] [address] [place] [address] CENTER ECG 12 lead (10/22/2020 2:01 PM SPECIALTY FINISHING UTILITY PERSON) Specimen Narrative Performed At Ventricular Rate 83 BPM GE MUSE Atrial Rate 83 BPM P-R Interval 110 ms QRS Duration 76 ms Q-T Interval 432 ms QTC Calculation(Bazett) 507 ms P Aulander 61 degrees R A[place]ander 28 degrees T Aulander 34 degrees Sinus rhythm with short AR Low voltage QRS Prolonged QT Abnormal ECG No previous ECGs available Confirmed by MD Farnsworth Roberto ([id number]) on 2020 3:18:11 PM Procedure Note Interface, External Ris In - 10/23/2020 3:18 PM SPECIALTY FINISHING UTILITY PERSON Ventricular Rate 83 BPM Atrial Rate 83 BPM P-R Interval 110 ms QRS Duration 76 ms Q-T Interval 432 ms QTC Calculation(Bazett) 507 ms P [place] 61 degrees R [place] 28 degrees T [place] 34 degrees Sinus rhythm with short AR Low voltage QRS Prolonged QT Abnormal ECG No previous ECGs available Confirmed by MD Farnsworth Roberto ([id number]) on 10/23/2020 3:18:11 PM Performing Organization Address City[facility] Phone Number [facility] XR chest 1 view portable / bedside (10/22/2020 1:46 PM SPECIALTY FINISHING UTILITY PERSON) Specimen Narrative Performed At FINAL REPORT GE RIS CHEST AP PORTABLE History provided: Abdominal pain Heart size magnified by projection. Lung s grossly clear and vascularity normal. Signed: Francisco Javier Garcia MD Report Verified Date/Time: 10/22/2020 15:35:51 Reading Location: [facility] Radiology Readin g Room Electronically signed by: FRANCISCO JAVIER GARCIA o n 10/22/2020 03:35 PM Procedure Note Interface, External Ris In - 10/22/2020 3:38 PM SPECIALTY FINISHING UTILITY PERSON FINAL REPORT CHEST AP PORTABLE History provided: Abdominal pain Heart size magnified by projection. Lung s grossly clear and vascularity normal. Signed: Francisco Javier Garcia MD Report Verified Date/Time: 10/22/2020 1 5:35:51 Reading Location: [facility] Radiology Readin g Room Performing Organization Address City/State/Zipcode Phone Number GE RIS after 12/07/2019 Insurance Payer Benefit Plan / Subscriber ID Effective Dates Phone Addre ss Type Group BLUE BCBS PPO POS [id number] 2020-Presen [phone] [address] PPO CROSS/BLUE EPO CHOICE t 2 [facility] [id number] (Home) [place] [address] Advance Directives For more information, please contact: [phone] Code Status Date Activated Date Inactivated Comments Full Code 10/22/2020 2:24 PM 10/24/2020 8:03 PM This code status was determined by: Patient
--- OUTSIDE RECORDS SUMMARY | 2020-12-07 15:22 | XMS REPORT | Continuity of Care Document ---
:[address] [facility] t Address [address] [place] [address] Care Team Providers Name Role Phone Gin Anthony MA Attending Clinician Unavailable Guillermina Bernstein Attending Clinician Unavailable Octavio Vivar MD Attending Clinician Leo JEFF Attending Clinician Ni Moon MD Attending Clinician Merchant JEFF Attending Clinician LEO Attending Clinician Unavailable Shahbaz Rodriguez MD Attending Clinician Sonia Toney [...] Expiration Date Sour ce Number AARON NOEL/AARON [id number] 2020 [facility] SHIELDBCBS PPO 00:00:00 - Medical POS EPO Center [id number] 10/2020-[id number], [place] [address]GCV Problems Condition Condition Condition Status Onset Resolution Last Treating Co mments Source Name Details Category Date Date Treatment Clinician Date Black Black Disease Active [facility] 00 Mobile Cirrhosis Cirrhosis Disease Active [facility] 00 Mobile Volume Volume Disease Active [facility] overload overload 10-24 [facility]: Medical 00 Mobile Allergies, Adverse Reactions, Alerts Allergy Allergy Status Severity Reaction(s) Onset Inactive Treating Comm ents Source Name Type Date Date Clinician Ondanset Drug Active Rash [facility]ie Hcl Allergy 10-22 [facility] - (Pf) 00:00: Medical 00 Mobile Social History Social Habit Start Date Stop Date Quantity Comments Source Sex Assigned At [facility] Tobacco use and 2020-10-23 2020-10-23 Never used [facility] - exposure 00:00:00 00:00:00 [facility] Alcohol intake 2020-10-23 2020-10-23 Ex-drinker [facility] es - 00:00:00 00:00:00 (finding) [facility] Smoking Status Start Date Stop Date Source Current some day smoker 2020-10-23 00:00:00 [facility] Medications Ordered Filled Start Stop Current Ordering Indication Dosage Frequency Signature Comments Components Source Medication Medication Date Date Medication? Clinician (SIG) Name Name spironolact 2021- Yes 100mg QD Take [address] one 10-25 tablet [facility] - (ALDACTONE) 00:00: 23:59 (100 mg Me dical 100 MG 00 :00 total) by Center tablet mouth daily. lactulose 2020- No 20g Q.[id number] Take [address] [facility] [address] (CHRONULAC) 10-24 [id number] by mouth 3 [facility] - 10 gram/15 15:10: 00:00 3D (three) Med ical mL (15 mL) 38 :00 times Center solution daily. rifAXIMin 2020- No 550mg Q.5D Take [address] 550 mg Tab 10-24 mg by [facility] - 15:10: 00:00 mouth [...] (two) times daily. lactulose 2021- Yes 20g Q.91579566 Take [address] [address] (CHRONULAC) 10-24 [id number] mLs (20 g [facility] - 10 gram/15 [...] total) daily for 90 days. pantoprazol 2020- No 40mg Q.5D Take [address] e 10-24 0207 tablet (40 [facility] - (PROTONIX) 00:00: 23:59 mg total) M edical 40 MG 00 :00 by mouth 2 Center tablet (two) times daily for 30 days. Vital Signs Vital Name Observation Time Observation Value Comments Source Systolic blood 2020-10-24 12:45:00 128 mm[Hg] [facility] Diastolic blood 2020-10-24 12:45:00 77 mm[Hg] [facility] Heart rate 2020-10-24 12:45:00 95 /min [facility] Body temperature 2020-10-24 12:45:00 36.78 Tamar [facility] Respiratory rate 2020-10-24 12:45:00 16 /min [facility] Oxygen saturation in 2020-10-24 12:45:00 99 /min [facility] Arterial blood by Medical Ce nter Pulse oximetry Body height 2020-10-22 18:07:00 162.6 cm [facility] Body weight 2020-10-22 18:07:00 88.14 kg [facility] BMI 2020-10-22 18:07:00 33.35 kg/m2 [facility] Procedures Procedure Date / Time Performed Performing Clinician [facility] e US ABDOMEN LIMITED 2020-10-24 14:23:00 Merchant Silvio [facility] COMPREHENSIVE METABOLIC 2020-10-24 02:19:[address] [facility] CBC W/PLT COUNT & AUTO 2020-10-24 02:19:00 Silvio Riggs [facility] PROTHROMBIN TIME/INR 2020-10-24 02:19:00 [facility] REPORT OF PROCEDURE - 2020-10-23 13:12:14 Ruth Toney I [facility] ENDOSCOPY [facility] UPPER ENDOSCOPY 2020-10-23 09:39:00 Ruth Toney [facility] MAGNESIUM 2020-10-23 05:15:00 Silvio Riggs [facility] COMPREHENSIVE METABOLIC 2020-10-23 05:15:00 Sanjay [facility] PANEL [facility] HEPATITIS C GENOTYPE 2020-10-23 05:14:00 Sanjay, [facility] HEPATITIS PANEL, ACUTE 2020-10-23 05:14:00 Sanjay [facility] PVDHA-2-LUWNUWCUFLL\, 2020-10-23 05:14:00 Sanjay [facility] SERUM [facility] ALPHA FETOPROTEIN (AFP), 2020-10-23 05:14:00 Sanjay [facility] TUMOR MARKER [facility] CERULOPLASMIN 2020-10-23 05:14:00 Sanjay, [facility] FERRITIN 2020-10-23 05:14:00 Sanjay [facility] IRON, TIBC, % SAT. 2020-10-23 05:14:00 [facility]jay [facility]OUT FERR[facility]IN[facility]12 2020-10-23 05:14:00 Sanjay [facility] FOLATE, SERUM 2020-10-23 05:14:00 Sanjay [facility] RETICULOCYTE COUNT 2020-10-23 05:14:00 Sanjay [facility] ACTIN (SMOOTH MUSCLE) 2020-10-23 05:14:00 Sanjay [facility] - ANTIBODY, IGG [facility] ANTI-NUCLEAR ANTIBODY 2020-10-23 05:14:00 Sanjay [facility] (LUCAS) [facility] ANTI-MITOCHONDRIAL AB, 2020-10-23 05:14:00 Sanjay [facility] - REFLEX TO TITER [facility] HEPATITIS B CORE 2020-10-23 05:14:00 Sanjay [facility] s - ANTIBODY, TOTAL [facility] HEPATITIS A ANTIBODY, IGG 2020-10-23 05:14:00 Sanjay [facility] I [facility] MITOCHONDRIAL AB SCREEN 2020-10-23 05:14:00 Sanjay [facility] MITOCHONDRIAL AB TITER 2020-10-23 05:14:00 Sanjay [facility] CBC W/PLT COUNT & AUTO 2020-10-23 05:14:00 Silvio Riggs [facility] HEMOGLOBIN AND HEMATOCRIT 2020-10-23 05:14:00 Silvio Riggs [facility] PROTHROMBIN TIME/INR 2020-10-23 05:14:00 Sanjay [facility] HEPATITIS C PCR, 2020-10-23 05:14:00 Sanjay [facility] US ABDOMINAL WITH DOPPLER 2020-10-22 21:15:00 Merchant Silvio [facility] URINALYSIS W/ REFLEX 2020-10-22 17:23:00 Sanjay [facility] URINE CULTURE [facility] SARS-COV2/RT-PCR ([facility] & 2020-10-22 15:22:00 [facility] BLOOD CULTURE 2020-10-22 15:07:00 Merchant [facility] CBC W/PLT COUNT & AUTO 2020-10-22 14:07:00 [facility]OL[facility] (7) 2020-10-22 14:07:[address] [facility] HEPATIC FUNCTION PANEL 2020-10-22 14:07:00 Sarai [facility] TROPONIN I 2020-10-22 14:07:[address] [facility] ECG 12-LEAD 2020-10-22 14:01:12 Unknown, Hl7 Doctor [facility] XR CHEST 1 VIEW 2020-10-22 13:46:00 Merchant Silvio [facility] PORTABLE/BEDSIDE [facility] Plan of Care Planned Activity Planned Date Details Comments Source Future Scheduled 2020-10-17 DEPRESSION SCREENING [facility] Test 00:00:00 (12+) [code = Medical Center DEPRESSION SCREENING (12+)] Future Scheduled 2020-06-17 INFLUENZA VACCINE (#1) [facility] 00:[facility]:00 [code = INFLUENZA Medical Ce nter VACCINE (#1)] Future Scheduled [address] [facility] Test 00:00:00 (procedure) [code = Medical Center 00212265] Future Scheduled [address] [facility] - Test 00:00:00 malignant neoplasm of Medica l Center cervix (procedure) [code = 494763379] Future Scheduled 1975 DTAP/TDAP/TD VACCINES CH I [...] Medica l Center breast (procedure) [code = 019541495] Future Scheduled [address] [facility] - Test 00:00:00 malignant neoplasm of Medica l Center colon (procedure) [code = 448011600] Encounters Start End Encounter Admission Attending Care Care Encounter Source Date/Time Date/Time Type Type Clinicians Facility Department ID 2020-10-13 2020-10-13 Patient Diane Fallonpamela [id number] 00:00:00 00:00:00 Outreach E Ankit [id number] [place] 4.2.7.2.686 [id number] 2020-10-01 2020-10-03 [facility] Ruben Boss [facility] 1.2.840 .114 [id number] 14:36:00 10:48:00 Encounter Jordi Garcia [facility] 350.1.13 .10 Cristofer Baker 4.2.7.2.686 [place] [id number] [place] [address] ([facility]) 2020-09-29 2020-09-29 Patient Diane Fallonpamela 1.2.840.114 [id number] 00:00:00 00:00:00 Outreach E Ankit [id number] [place] 4.2.7.2.686 [id number] 2020-09-25 2020-09-25 Transition Dar Lynn 1.2.840.114 [id number] 00:00:00 00:00:00 of Care Valerie Pham [id number] [place] 4.2.7.2.686 [id number] 2020-09-22 2020-09-24 [facility] Balta Nam [facility] 1.2.840. 114 [id number] 05:04:00 10:44:[address] [facility] [id number] [place] 4.2.7.2.686 [place] [id number] [place] [address] ([facility]) 2020-06-30 2020-06-30 Emergency [facility] [id number] 14:48:00 18:31:00 Hugo Means 350.1.13.10 [place] 4.2.7.2.686 [place] [id number] 2019-06-11 2019-06-11 Orders Doctor NARENDRA 1.2.840.114 [id number] 00:00:00 00:00:00 Only Unassigned, STAR 350.1.13.10 [place] [facility] 4.2.7.2.686 [id number] 2019-05-11 2019-05-11 Emergency [facility] [id number] 10:42:22 12:29:00 Marianne Measn 350.1.13.10 [place] 4.2.7.2.686 [place] [id number] Results Test Description Test Time Test Comments Results Result Comments Source Hepatitis C genotype 2020-10-28 20:39:00 Test Item Value Reference Range Interpretation Comme nts HCV Genotype, 3 The method use d in this test is RT-PCR and LiPA (test code = reversehyb ridization (Line Probe) of the 5' 3975185) UTR and corereg ion of the HCV genome. The analytical perf ormance characteristics of thisassay have been determined by [employer]Infe ctious Disease. The modifications h ave not beencleared or approved by the FDA. Thi s assay has beenvalidated pursuant to the CLIA regulations and isused for clinical pu rposes. For additional information, pl ease refer tohttp://educat ion.Kudoala /faq/HCVGenotyp ing(This link id being provided for information al/educational purposes only.) MADDIE (test code = Performing Lab MADDIE) *QDID [employer] [facility] [address] [place] [address] Arnie Phillips MD [facility] HospitalActin (Smooth Muscle) Antibody, [id number] 01:39:00 Test Item Value Reference Interpretation Comments Range Anti-Smooth Muscle 23 U See Note: H Reference Range:<20 Ab (test code = NEGATI VE> OR ) = 20 POSITIVE Antibodies recognizing act in are the main componentof smo oth muscle antibodi es associated withautoimmune liver disease. Actin antibodie s arefound in approximately 7 5% of patients withautoimmune hepatitis (AIH) type 1, grqxexxulqjmi80 % of patients with autoimmune cholangitis,mary bi mately 30% of patients with primary biliarycirrhosi s, and approximate ly 2% of healthy people.High barb ues are closely correlated with AIH type 1. MADDIE (test code = Performing Lab MADDIE) [facility] [address] [place] [address] Wilder Ochoa MD, PhD, BEATRICE Lab Interpretation Abnormal (test code = 63441-6) [facility] Hospital[facility] Culture - Routine (Right Venipuncture) 2020-10-27 18:00:00 Test Item Value Reference Range Interpretation Comments Result (test code = No growth in 5 days 6463-4) [facility] HospitalBLOOD [id number] 18:00:00 Test Item Value Reference Range Interpretation Comments CULTURE (BEAKER) (test No growth in 5 days code = 1095) ANTI-MITOCHONDRIAL AB, REFLEX TO [id number] 10:14:00 Test Item Value Reference Range Interpretation Comments SCAN RESULT (test code = 5422387) Anti-Mitochondrial Ab, reflex to [id number] 10:14:00Scan ResultQUEST DIAGNOSTIC INCORPORATEDRedwood Memorial HospitalMitochondrial Ab Screen 2020-10-25 12:18:00 Test Item Value Reference Range Interpretation Comments Anti-Mitocho NEGATIVE NEGATIVE This test was developed nd Abs (test and its analyti vasile code = performance 2633580) characteristics havebeen determined by [facility] uaLoma Linda University Children's Hospitalistrhutchinson [facility].It h as not been cleared or approved by FDA. This as say has been validatedp ursuant to the CLIA reg ulations and is used for clinical purposes. MADDIE (test Performing Lab code = MADDIE) EZ [employer] [facility] [address] [place] [address] Wilder Ochoa MD, PhD, BEATRICE [facility] HospitalMitochondrial Ab [id number] 12:18:00 Test Item Value Reference Range Interpretation Comments Mitochondrial Ab TNP See_Comment Test Not Titer (test code = Performed . 0358332) Screening test Negative or Not Detected. Titer notperformed. [Automated message] The system which generated this result transmitted reference range : <1:20. The reference range was not used to interpret this result as normal/abnormal . MADDIE (test code = Performing Lab MADDIE) EZ [employer] [facility] [address] [place] [address] Wilder Ochoa MD, PhD, BEATRICE [facility] HospitalCeruloplasmin2021-01-09 11:45:00 Test Item Value Reference Range Interpretation Comments Ceruloplasmin (test code 27 mg/dL 18-53 = 20191208) MADDIE (test code = MADDIE) Performing Lab *BARB [employer] [facility], [address] [place] [phone] Antonieta Small MD [facility] HospitalHepatitis C PCR, [id number] 22:54:00 Test Item Value Reference Range Interpretation Comments HCV PCR, Quantitative [id number] See_Comment H [Auto mated (test code = 20649-7) messag e] The system which generated this result transmitted reference range : <15 IU/mL. The reference range was not used to interpret this result as normal/abnormal . MADDIE (test code = MADDIE) This test uses a Real-Time Polymerase Chain Reaction (RT-PCR) methodology and was performed using [employer] Ampliprep/MARIXA TaqMan HCV test kit version 2.0 ([employer] Reportable range for this assay is 15 - 100,000,000 IU per mL (1.18 - 8.00 Log IU/mL). Lab Interpretation Abnormal (test code = 99889-9) [facility] HospitalHEPATITIS C PCR, [id number] 22:54:00 Test Item Value Reference Range Interpretation Comments HCV NUMERIC RESULT (BEAKER) 181843 IU/mL <15 H (test code = 2700) This test uses a Real-Time Polymerase Chain Reaction (RT-PCR) methodology and was performed using [employer] Ampliprep/MARIXA TaqMan HCV test kit version 2.0 ([employer]Reportable range for this assay is 15 - 100,000,000 IU per mL (1.18 - 8.00 Log IU/mL).U/S, ABDOMINAL, [id number] 17:32:00Labs to be ordered:->Body Fluid Culture (w/Gram Stain, C\T\S) Labs to be ordered:->Cell Count Labs to be ordered:->Glucose+LDH+Protein Labs to be ordered:->Cytology Reason for exam:->diagnostic para for new ascites in pt w/ cirrhosisSANTA YNEZ [facility]ITALName[facility]WAIN ESPINOSA : 1970 Sex: FFINAL REPORT Limited abdominal ultrasound CLINICAL HISTORY: Ascites F INDINGS: A limited abdominal ultrasound was performed and only a trace amount of fluid was seen. Therefore a paracentesis was not performed. Signed: Alex Gonzalezort Verified Date/Time: 10/24/2020 17:32:34 Reading Location: [facility] B1 P006J Ultrasound Reading Room US abdomen [id number] 17:32:00Interface, External Ris In - 10/24/2020 5:34 PM CSTFINAL REPORT Limited abdominal ultrasound CLINICAL HISTORY: Ascites FINDINGS: A limited abdominal ultrasound was performed and only a trace amount of fluid was seen. Therefore a paracentesis was not performed. Signed: Alex Gonzalez MDReport Verified Date/Time: 10/24/2020 17:32:34 Reading Location: [facility] P006J Ultrasound Reading Room [facility] HospitalComprehensive metabolic panel 2020-10-24 03:23:00 Test Item Value Reference Range Interpretation Comments Protein, Total (test 4.7 See_Comment L [Autom ated code = 2885-2) message] The system which generated this result transmitted reference range : 6.0 - 8.3 gm/dL . The reference range was not used to interpr et this result as normal/abnormal . Albumin (test code = 1.7 g/dL 3.5-5 L 92342-2) Alkaline Phosphatase 114 U/L 40-150 (test code = 6768-6) Total Bilirubin (test 3.0 mg/dL 0.2-1.2 H code = 1975-2) Sodium (test code = 139 meq/L 656-103 3982-2) Potassium (test code 3.2 meq/L 3.5-5.1 L = 2823-3) Chloride (test code = 106 meq/L 98-107 5-0) CO2 (test code = 27 meq/L 22-29 2027-9) BUN (test code = 12 mg/dL 7-21 3094-0) Creatinine (test code 0.78 mg/dL 0.57-1.25 = 2160-0) Glucose (test code = 127 mg/dL 70-105 H 2345-7) Calcium (test code = 7.0 mg/dL 8.4-10.2 L 01235-4) AST (test code = 114 U/L 5-34 H 1920-8) ALT (test code = 58 U/L 6-55 H 1742-6) EGFR (test code = 78 mL/min/1.73 [place] [address]-8) NOT ACCURATE CREATININE CLEARANCE IN PREDICTING GLOMERULAR FILTRATION RATE . ESTIMATED GFR I S NOT APPLICABLE FOR DIALYSIS PATIENTS. MADDIE (test code = MADDIE) [employer] ID - PIAYA LSpecimen slightly icteric Lab Interpretation Abnormal (test code = 33607-2) [facility] HospitalCOMPREHENSIVE METABOLIC [id number] 03:23:00 Test Item Value Reference Range Interpretation [...] 347) EGFR (BEAKER) (test 78 mL/min/1.73 ESTIMA JOSEPH GFR IS code = 1092) sq m NOT ACCURATE CREATININE CLEARANCE IN PREDICTING GLOMERULAR FILTRATION RATE . ESTIMATED GFR I S NOT APPLICABLE FOR DIALYSIS PATIEN TS. Plastic Roller ID - PIAYA LSpecimen slightly ictericProthrombin time/[id number] 03:08:00 Test Item Value Reference Interpretation Comments Range Protime (test code = 19.8 See_Comment H [Autom ated 5902-2) message] The system which generated this result transmitted reference range : 11.9 - 14.2 seconds. The reference range was not used to interpret this result as normal/abnormal . INR (test code = 1.75 See_Comment [Automated 6301-6) message] The system which generated this result transmitted reference range : <=5.90. The reference range was not used to interpret this result as normal/abnormal . MADDIE (test code = Effective 03/14/2019: MADDIE) PT Reference Range ChangeNew: 11.9-14.2 Previous: 11.7-14.7 RECOMMENDED COUMADIN/WARFARIN INR THERAPY RANGESSTANDARD DOSE: 2.0-3.0 Includes: PROPHYLAXIS for venous thrombosis, systemic embolization; TREATMENT for venous thrombosis and/or pulmonary embolus.HIGH RISK: Target INR is 2.5-3.5 for patients wiht mechanical heart valves. Lab Interpretation Abnormal (test code = 75602-3) [facility] HospitalPROTHROMBIN TIME/[id number] 03:08:00 Test Item Value Reference Range Interpretation [...] heart valves.CBC with platelet count + automated [id number] 02:45:00 Test Item Value Reference Range Interpretation Comments WBC (test code = 6690-2) 5.3 See_Comment [A utomated message] The system [employer] generated this result transmitted ref erence range: 3.5 - 10 .5 K/L. The refe rence range was not u sed to interpret this result as normal/abnor mal. RBC (test code = 789-8) 3.40 See_Comment L [Au tomated message] The system [employer] generated this result transmitted ref erence range: 3.93 - 5 .22 M/L. The refe rence range was not u sed to interpret this result as normal/abnor mal. MCHC (test code = 786-4) 30.3 See_Comment L [A utomated message] The system [employer] generated this result transmitted ref erence range: 32.2 - 3 5.5 GM/DL. The refe rence range was not u sed to interpret this result as normal/abnor mal. Hematocrit (test code = 31.7 % 34.1-44.9 L 4544-3) MCV (test code = 787-2) 93.2 fL 79.4-94.8 MCH (test code = 785-6) 28.2 pg 25.6-32.2 RDW (test code = 788-0) 18.6 % 11.7-14.4 H Platelets (test code = 62 See_Comment L [Aut omated message] 777-3) The system [employer] generated this result transmitted ref erence range: 150 - 45 0 K/CU MM. The referen ce range was not u sed to interpret this result as normal/abnor mal. MPV (test code = 13.0 fL 9.4-12.3 H 06756-6) nRBC (test code = 413) 0 See_Comment [Aut omated message] The system [employer] generated this result transmitted ref erence range: 0 - 0 /1 00 WBC. The refere nce range was not u sed to interpret this result as normal/abnor mal. % Neutros (test code = 52 % 429) % Lymphs (test code = 34 % 430) % Monos (test code = 10 % 431) % Eos (test code = 432) 3 % % Baso (test code = 437) 1 % # Neutros (test code = 2.73 See_Comment [Aut omated message] 670) The system [employer] generated this result transmitted ref erence range: 1.56 - 6 .13 K/L. The refe rence range was not u sed to interpret this result as normal/abnor mal. # Lymphs (test code = 1.81 See_Comment [Auto mated message] 414) The system [employer] generated this result transmitted ref erence range: 1.18 - 3 .74 K/L. The refe rence range was not u sed to interpret this result as normal/abnor mal. # Monos (test code = 0.54 See_Comment H [Autom ated message] 415) The system [employer] generated this result transmitted ref erence range: 0.24 - 0 .36 K/L. The refe rence range was not u sed to interpret this result as normal/abnor mal. # Eos (test code = 416) 0.14 See_Comment [Au tomated message] The system [employer] generated this result transmitted ref erence range: 0.04 - 0 .36 K/L. The refe rence range was not u sed to interpret this result as normal/abnor mal. # Baso (test code = 417) 0.05 See_Comment [A utomated message] The system [employer] generated this result transmitted ref erence range: 0.01 - 0 .08 K/L. The refe rence range was not u sed to interpret this result as normal/abnor mal. Immature 0 % 0-1 Granulocytes-Relative (test code = 2801) Lab Interpretation (test Abnormal code = 63643-9) [facility] W/PLT COUNT & AUTO [id number] 02:45:00 Test Item Value Reference Range Interpretation [...] (BEAKER) (test code = 2801) ECG 12 [id number] 15:18:12Interface, External Ris In - 10/23/2020 3:18 PM CSTVentricular Rate 83 BPMAtrial Rate 83 BPMP-R Interval 110 msQRS Duration 76 msQ-T Interval 432 msQTC Calculation(Georgezedillon) 507 msP Export 61 degreesR Export 28 degreesT Export 34 degreesSinus rhythm with short PRLow voltage QRSProlonged QTAbnormal ECGNo previous ECGs availableConfirmed by MD Farnsworth Roberto ([id number]) on 10/23/2020 3:18:11 [facility] HospitalFerritin2021-01-07 12:56:00 Test Item Value Reference Range Interpretation Comments Ferritin (test code = 71.00 ng/mL 5-275 2276-4) MADDIE (test code = MADDIE) Plastic Roller ID - AAHAMID Lab Interpretation (test Normal code = 85732-9) [facility] HospitalFolate, [id number] 12:56:00 Test Item Value Reference Range Interpretation Comments Folate (test code = 12.30 ng/mL See_Comment [Automa joseph 2284-8) message] The system which generated this result transmit joseph reference range : >=7.00. The reference range was not used to interpret this result as normal/abnormal . MADDIE (test code = MADDIE) Plastic [employer]ler ID - AAHAMID Lab Interpretation Normal (test code = 92998-7) [facility] HospitalFERRITIN2021-01-07 12:56:00 Test Item Value Reference Range Interpretation Comments FERRITIN (BEAKER) (test code = 71.00 ng/mL 5.00-275.00 361) Plastic Roller ID - AAHAMIDFOLATE, [id number] 12:56:00 Test Item Value Reference Range Interpretation Comments FOLATE (BEAKER) (test code = 362) 12.30 ng/mL >=7.00 Plastic Roller ID - AAHAMIDAnti-Nuclear Antibody (LUCAS)2020-10-23 10:30:00 Test Item Value Reference Range Interpretation Comments LUCAS (test code = 47589-2) Negative Negative MADDIE (test code = MADDIE) Test performed by IFA method.Test performed by IFA method. Lab Interpretation (test Normal code = 25113-7) [facility]ANT[facility]NUCLEAR ANTIBODY (LUCAS)2020-10-23 10:30:00 Test Item Value Reference Range Interpretation Comments ANTI-NUCLEAR ANTIBODY (LUCAS) (BEAKER) Negative Negative (test code = 418) Test performed by IFA method.Test performed by IFA method.Hepatitis panel, acute 2020-10-23 10:06:00 Test Item Value Reference Range Interpretation Comments Hep A IgM (test code = Nonreactive Nonreactive 26655-1) Hep B C IgM (test code = Nonreactive Nonreactive 64413-0) Hepatitis C Ab (test Reactive Nonreactive A code = 16399-1) HBsAg Screen (test code Nonreactive Nonreactive = 5195-3) MADDIE (test code = MADDIE) Plastic Roller ID - [place] M Lab Interpretation (test Abnormal code = 15916-9) [facility] HospitalHEPAT[facility]IS PANEL, [id number] 10:06:00 Test Item Value Reference Range Interpretation Comments HEPATITIS A IGM ANTIBODY (BEAKER) Nonreactive Nonreactive (test code = 498) HEPATITIS B CORE IGM ANTIBODY Nonreactive Nonreactive (BEAKER) (test code = 645) HEPATITIS C ANTIBODY (BEAKER) Reactive Nonreactive A (test code = 367) HEPATITIS B SURFACE ANTIGEN (2) Nonreactive Nonreactive (BEAKER) (test code = 2585) [employer]astic [employer]ler ID - [place] MVitamin [id number] 09:44:00 Test Item Value Reference Range Interpretation Comments Vitamin B12 (test code = 1494 pg/mL 213-816 H 2132-9) MADDIE (test code = MADDIE) Plastic Roller ID - [place] M Lab Interpretation (test Abnormal code = 85099-1) [facility] HospitalVITAMIN [id number] 09:44:00 Test Item Value Reference Range Interpretation Comments VITAMIN B12 (BEAKER) (test code = 1494 pg/mL 213-816 H 774) [employer] ID - [place] MAlpha fetoprotein (AFP), tumor [id number] 08:27:00 Test Item Value Reference Range Interpretation Comments Alpha-Fetoprotein <2.0 See_Comment [Automate d (test code = 1834-1) message ] The system which generated this result transmit joseph reference range : <10.0 ng/mL. Th e reference range was not used to interpret this result as normal/abnormal . MADDIE (test code = MADDIE) Pl[employer]ler ID - [place] M Lab Interpretation Normal (test code = 71401-3) [facility] HospitalALPHA FETOPROTEIN (AFP), TUMOR [id number] 08:27:00 Test Item Value Reference Range Interpretation Comments ALPHA-FETOPROTEIN (BEAKER) (test code < ng/mL <10.0 = 1094) [employer]ler ID - [place] MHepatitis A antibody, [id number] 07:42:00 Test Item Value Reference Range Interpretation Comments Hep A IgG (test code = Reactive Nonreactive A 61355-9) MADDIE (test code = MADDIE) Plastic Roller ID Brid[place] CONRAD M Lab Interpretation (test Abnormal code = 41180-6) [facility] HospitalHEPAT[facility]IS A ANTIBODY, [id number] 07:42:00 Test Item Value Reference Range Interpretation Comments HEPATITIS A IGG ANTIBODY (BEAKER) Reactive Nonreactive A (test code = 2797) Plastic Roller ID [place]RAD MCOMPREHENSIVE METABOLIC [id number] 07:41:00 Test Item Value Reference Range Interpretation [...] 347) EGFR (BEAKER) (test 96 mL/min/1.73 ESTIMA JOSEPH GFR IS code = 1092) sq m NOT ACCURATE CREATININE CLEARANCE IN PREDICTING GLOMERULAR FILTRATION RATE . ESTIMATED GFR I S NOT APPLICABLE FOR DIALYSIS PATIEN TS. Plastic Roller ID - [place] MSpecimen slightly [id number] 07:11:00 Test Item Value Reference Range Interpretation Comments Magnesium (test code = 1.8 mg/dL 1.6-2.6 67128-4) MADDIE (test code = MADDIE) Plastic [employer]ler ID - [place] M Lab Interpretation (test Normal code = 68280-2) [facility] HospitalMAGNESIUM2021-01-07 07:11:00 Test Item Value Reference Range Interpretation Comments MAGNESIUM (BEAKER) (test code = 1.8 mg/dL 1.6-2.6 627) Plastic Roller ID - [place] MHepatitis B core antibody, [id number] 07:01:00 Test Item Value Reference Range Interpretation Comments Hep B Core Total Ab Nonreactive Nonreactive (test code = 77131-9) MADDIE (test code = MADDIE) Plastic Roller ID - [place] M Lab Interpretation (test Normal code = 30380-1) [facility] HospitalHEPAT[facility]IS B CORE ANTIBODY, [id number] 07:01:00 Test Item Value Reference Range Interpretation Comments HEPATITIS B CORE TOTAL ANTIBODY Nonreactive Nonreactive (BEAKER) (test code = 497) Plastic Roller ID - HOUSTONJames Mederos, TIBC, % sat. (without ferritin)2020-10-23 06:37:00 Test Item Value Reference Range Interpretation Comments Iron (test code = 2498-4) 129.0 ug/dL 40-160 TIBC (test code = 2500-7) 178 ug/dL 250-450 L Iron % Saturation (test 72 % 20-55 H code = 2502-3) MADDIE (test code = MADDIE) Plastic Roller ID - [place] M Lab Interpretation (test Abnormal code = 10938-6) [facility] HospitalIRON, TIBC, % SAT. (WITHOUT FERRITIN)2020-10-23 06:37:00 Test Item Value Reference Range Interpretation Comments IRON (BEAKER) (test code = 547) 129.0 ug/dL 40.0-160.0 TOTAL IRON BINDING CAPACITY 178 ug/dL 250-450 L (BEAKER) (test code = 769) IRON % SATURATION (2) (BEAKER) 72 % 20-55 H (test code = 2590) [employer]ler ID - [place] RXlnsn-1-[id number] 06:36:00 Test Item Value Reference Range Interpretation Comments A-1 Antitrypsin (test code 102.40 mg/dL 90-200 = 1825-9) MADDIE (test code = MADDIE) Plastic [employer]ler ID - [place] M Lab Interpretation (test Normal code = 97559-7) [facility] HospitalALPHA-1-[id number] 06:36:00 Test Item Value Reference Range Interpretation Comments ALPHA-1 ANTITRYPSIN (BEAKER) 102.40 mg/dL 90.00-200.00 (test code = 502) Pl[employer] ID - [place] MPROTHROMBIN TIME/[id number] 06:21:00 Test Item Value Reference Range Interpretation [...] is2.5-3.5 for patients wiht mechanical heart valves.Reticulocyte [id number] 05:50:00 Test Item Value Reference Range Interpretation Comments % Retic (test code = 4.6 % 0.5-1.7 H 97717-9) MADDIE (test code = MADDIE) Plastic Roller ID - 6000 Lab Interpretation (test Abnormal code = 69547-4) [facility] HospitalRETICULOCYTE [id number] 05:50:00 Test Item Value Reference Range Interpretation Comments RETICULOCYTE COUNT PCT (BEAKER) (test 4.6 % 0.5-1.7 H code = 575) Plastic Roller ID - 6000Hemoglobin and ptjgrjzlfn5711-02-04 05:49:00 Test Item Value Reference Range Interpretation Comments Hemoglobin (test code = 9.0 See_Comment L [Au tomated message] 786-4) The system [employer] generated this result transmitted ref erence range: 11.2 - 1 5.7 GM/DL. The refe rence range was not u sed to interpret this result as normal/abnor mal. Hematocrit (test code = 30.0 % 34.1-44.9 L 4544-3) Lab Interpretation (test Abnormal code = 85306-1) [facility] HospitalHEMOGLOBIN AND [id number] 05:49:00 Test Item Value Reference Range Interpretation Comments HEMOGLOBIN (BEAKER) (test code = 9.0 GM/DL 11.2-15.7 L 410) HEMATOCRIT (BEAKER) (test code = 30.0 % 34.1-44.9 L 411) CBC W/PLT COUNT & AUTO [id number] 05:49:00 Test Item Value Reference Range Interpretation [...] 0-1 PERCENT (BEAKER) (test code = 2801) U/S, ABDOMINAL, WITH [id number] 21:58:00Reason for exam:->ascites, cirrhosisCH[facility] : 1970 Sex: FFINAL [...] Verified Date/Time: 10/22/2020 21:58:54 US abdominal with [id number] 21:58:00Interface, External Ris In - 10/23/2020 2:18 [...] Mila Richardson MDReport Verified Date/Time: 10/22/2020 21:58:54 [facility]2020-10-22 20:15:00 Test Item Value Reference Range Interpretation Comments SARS-COV2/RT-PCR Negative Not Detected, (test code = Negative, See 99305-9) external report for linked test SARS-COV-2 [facility] PERFORMING LAB (test code = 02050-6) MADDIE (test code = Negative result for [...] of the Act. Fact Sheet for Healthcare Providers:https://www.[employer]/sites/default/f christina/product/documents/F act_Sheet_HC_Providers_L nel_LKRU-FxG-2.pdf Fact Sheet for Healthcare Patients:https://www.[employer]/sites/default/fi les/product/documents/Fa ct_Sheet_Patients_Lyra_S ARS-CoV-2.pdf Performing Laboratory:[facility] [place] [address] [facility] ([facility])2020-10-22 20:15:00 Test Item Value Reference Range Interpretation Comments SARS-COV2/RT-PCR (test Negative Not Detected, Negative, code = 3537218) See external report for linked test SARS-COV-2 PERFORMING LAB [facility] (test code = 1200090) Negative result for this test determines that [...] 564(g) of the Act.Fact Sheet for Healthcare Providers:https://www.[employer]/sites/default/files/product/documents/Fact_Shee g_PK_Yhvskvemy_Sivd_IRMR-DrC-2.pdfFact Sheet for Healthcare Patients:https://www.[employer]/sites/default/files/product/ documents/Seab_Ondky_Cvrqkopn_Qknp_AUZO-VzP-1.pdfPerforming Laboratory:[place] [address], [place] [address]Tjethzixxc w/Microscopic + Reflex to [id number] 17:46:00 Test Item Value Reference Range Interpretation Comments Color, UA (test code Yellow = 5778-6) Clarity, UA (test Hazy code = 5767-9) Specific [place], UA 1.024 1.001-1.035 (test code = 5811-5) pH, UA (test code = 5.5 5.0-8.0 5803-2) Protein, UA (test 20 mg/dL Negative A code = 24498-9) Glucose, UA (test Negative Negative code = 365) Ketones, UA (test Negative Negative code = 2514-8) Bilirubin, UA (test Negative Negative code = 54073-5) Blood, UA (test code Small Negative A = 57762-0) Nitrite, UA (test Negative Negative code = 5802-4) Leukocytes, UA (test Negative Negative code = 5799-2) Urobilinogen, UA 0.2 mg/dL 0.2-1 (test code = 76396-9) RBC, UA (test code = 1 See_Comment [Autom ated 44672-0) message] The system which generated this result transmit joseph reference range : /HPF. The reference range was not used to interpret this result as normal/abnormal . WBC, UA (test code = 4 See_Comment [Autom ated 5821-4) message] The system which generated this result transmit joseph reference range : /HPF. The reference range was not used to interpret this result as normal/abnormal . Mucus (test code = Rare 8247-9) Squam Epithel, UA 9 See_Comment [Automate d (test code = 85830-5) messag e] The system which generated this result transmit joseph reference range : /HPF. The reference range was not used to interpret this result as normal/abnormal . Specimen Source (test code = 2795) MADDIE (test code = MADDIE) Plastic Roller ID - tech Lab Interpretation Abnormal (test code = 62656-5) [facility] HospitalURINALYSIS W/ REFLEX URINE [id number] 17:46:00 Test Item Value Reference Range Interpretation [...] = 516) SOURCE(BEAKER) (test code = 2795) Plastic Roller ID - ianRAD, CHEST, 1 VIEW, NON [id number] 15:35:00Reason for exam:->abd painShould this be performed at the bedside?->Yes [facility] : 1970 Sex: FFINAL REPORT CHEST AP PORTABLE History provided: Abdominal pain Heart size magnified by projection. Lungs grossly clear and vascularity normal. Signed: Huang Garcia Verified Date/Time: 10/22/2020 15:35:51 Reading Location: [facility] Radiology Reading Room XR chest 1 view portable / [id number] 15:35:00Interface, External Ris In - 10/22/2020 3:38 PM CSTFINAL REPORT CHEST AP PORTABLE History provided: Abdominal pain Heart size magnified by projection. Lungs grossly clear and vascularity normal. Signed: Huang Garcia Verified Date/Time: 10/22/2020 15:35:51 Reading Location: [facility] Radiology Reading Room [facility] available [facility] [place])2020-10-22 14:52:00 Test Item Value Reference Range Interpretation Comments Troponin I (test code = 0.01 ng/mL 0-0.03 27817-1) MADDIE (test code = MADDIE) Troponin I [...] ADMIN Lab Interpretation (test Normal code = 62251-6) [facility] [id number] 14:52:00 Test Item Value Reference Range Interpretation [...] failure, acidosis, acute neurological disease, and persistent tachyarrhythmia.Plastic Roller ID - ADMINBasic metabolic panel (Na, K+, Cl, CO2, Glu, Ca, BUN, Cr)2020-10-22 14:48:00 Test Item Value Reference Range Interpretation Comments Sodium (test code = 141 meq/L 304-151 5360-2) Potassium (test code 3.1 meq/L 3.5-5.1 L = 2823-3) Chloride (test code 107 meq/L 98-107 = 2075-0) CO2 (test code = 30 meq/L 22-29 H 2028-06) BUN (test code = 12 mg/dL 7-21 3094-0) Creatinine (test 0.65 mg/dL 0.57-1.25 code = 2160-0) Glucose (test code = 90 mg/dL 70-105 2345-7) Calcium (test code = 7.0 mg/dL 8.4-10.2 L 63363-1) EGFR (test code = 96 mL/min/1.73 [place] [address]-4) m NOT ACCURATE CREATININE CLEARANCE IN PREDICTING GLOMERULAR FILTRATION RATE . ESTIMATED GFR I S NOT APPLICABLE FOR DIALYSIS PATIENTS. MADDIE (test code = Plastic Roller ID - MADDIE) ADMINSpecimen slightly icteric Lab Interpretation Abnormal (test code = 38294-4) [facility] HospitalLiver [id number] 14:48:00 Test Item Value Reference Range Interpretation Comments Protein, Total (test 4.6 See_Comment L [Autom ated code = 2885-2) message] The system which generated this result transmitted reference range : 6.0 - 8.3 gm/dL . The reference range was not used to interpret this result as normal/abnormal . Albumin (test code = 1.7 g/dL 3.5-5 L 48402-6) Total Bilirubin 3.5 mg/dL 0.2-1.2 H (test code = 1975-2) Bilirubin, Direct 1.7 mg/dL 0.1-0.5 H (test code = 1968-7) Alkaline Phosphatase 106 U/L 40-150 (test code = 6768-6) AST (test code = 132 U/L 5-34 H 1920-8) ALT (test code = 61 U/L 6-55 H 1742-6) MADDIE (test code = Plastic Roller ID - MADDIE) ADMINSpecimen slightly icteric Lab Interpretation Abnormal (test code = 66498-7) [facility] HospitalBASIC METABOLIC [id number] 14:48:00 Test Item Value Reference Range Interpretation [...] 697) EGFR (BEAKER) (test 96 mL/min/1.73 ESTIMA JOSEPH GFR IS code = 1092) sq m NOT ACCURATE CREATININE CLEARANCE IN PREDICTING GLOMERULAR FILTRATION RATE . ESTIMATED GFR I S NOT APPLICABLE FOR DIALYSIS PATIEN TS. Plastic Roller ID - ADMINSpecimen slightly ictericHEPATIC FUNCTION [id number] 14:48:00 Test Item Value Reference Range Interpretation [...] code = 61 U/L 6-55 H 347) Plastic Roller ID - ADMINSpecimen slightly ictericCBC W/PLT COUNT & AUTO [id number] 14:28:00 Test Item Value Reference Range Interpretation [...] % 0-1 PERCENT (BEAKER) (test code = 1101)
[2020-12-07 15:31] LABS: Protime INR 1.77
[2020-12-07 15:32] LABS: Basophils % 0.5 % (0-1.3); Hematocrit 28.3 % (36.0-45.0); Lymphocytes % 23.2 % (15.3-44.8); MPV 8.9 fL (7.6-11.3); RBC Red Blood Cell Count 3.19 M/uL (3.86-4.86)
[2020-12-07] MEDS ORDERED: LORazepam 2 MG/ML VIAL ONE ×2 (15:33→19:04)
[2020-12-07 15:50] LABS: Albumin 1.6 g/dL (3.4-5.0); Bilirubin Direct 2.4 mg/dL (0-0.2); Bilirubin Total 4.4 mg/dL (0.2-1.0); Potassium 4.1 mmol/L (3.5-5.1); Protein, Total 5.1 g/dL (6.4-8.2)
--- NOTE | 2020-12-07 16:14 | ER ---
Nurse's Notes [facility] Name: Lorena Hansen Age: 50 yrs Sex: Female : 1970 Arrival Date: 12/07/2020 Time: 15:00 Bed 7 Private MD: Diagnosis: Altered mental status, unspecified;Hyperammonemia Presentation: 12/07 15:00 Chief complaint: EMS states: Called out for AMS, last known normal was at 0400 today. rb3 Pt. has a history of cirrhosis and refuses to take her medications. EMS initiated an IV but the pt ripped it out. Dentures in place but EMS was unable to remove them because the pt. is combative. BP 170/100, BS 60. Allergy to Versed. 15:00 Method Of Arrival: EMS: [facility] rb3 15:19 Chief complaint: EMS states: BOYFRIEND CALLED FOR AMS, SAYS THIS IS THE SAME THING THAT bp HAPPENS EVERYTIME SHE DOESN'T TAKE HER MEDICINE. Coronavirus screen: At this time, the client does not indicate any symptoms associated with coronavirus-19. Ebola Screen: No symptoms or risks identified at this time. Initial Sepsis Screen: Does the patient meet any 2 criteria? Altered Mental Status. HR > 90 bpm. Yes Does the patient have a suspected source of infection? No. Patient's initial sepsis screen is negative. Risk Assessment: Do you want to hurt yourself or someone else? Unable to obtain. Onset of symptoms is unknown. 15:19 Method Of Arrival: EMS: [facility] bp 15:19 Acuity: SUDHA 2 bp Triage Assessment: 15:02 General: Appears distressed, uncomfortable, obese, unkempt, Behavior is agitated, bp combative. Pain: Unable to use pain scale. Does not appear to understand pain scale. EENT: Sclera/Cornea JAUNDICED. Neuro: Level of Consciousness is awake, confused, Oriented to none. Cardiovascular: Rhythm is sinus tachycardia. Respiratory: No deficits noted. GI: Abdomen is non-distended. : No signs and/or symptoms were reported regarding the genitourinary system. Derm: No deficits noted. Musculoskeletal: No deficits noted. 15:02 Injury Description: BRUISING NOTED TO LEFT ELI-ORBITAL AND BLOOD AROUND MOUTH. EMS bp REPORTS PT WAS BITING HER TONGUE ON SCENE. Historical: - Allergies: 15:02 Zofran; bp 15:02 PENICILLINS; bp - Home Meds: 15:02 Lactulose Oral [Active]; bp - PMHx: 15:02 COLON CA; Cirrhosis; bp - Immunization history:: Adult Immunizations unknown. - Social history:: Smoking status: unknown. - History obtained from: EMS. Screenin:04 Abuse screen: Denies threats or abuse. Denies injuries from another. Nutritional bp screening: No deficits noted. Tuberculosis screening: No symptoms or risk factors identified. Fall Risk None identified. Assessment: 15:04 General: SEE TRIAGE NOTE. bp 15:15 Reassessment: PT AOx0, ATTEMPTING TO EXIT BED, PT NOT RESPONDING TO VERBAL REDIRECTION. bp RESTRAINTS PLACED FOR PT AND STAFF SAFETY. 15:57 Reassessment: Patient appears in no apparent distress at this time. Pt. is resting with rb3 eyes closed, respirations even, unlabored. 16:28 Reassessment: No changes from previously documented assessment. Patient and/or family bp updated on plan of care and expected duration. Pain level reassessed. PT RETURNED FROM CT. 17:14 Reassessment: No changes from previously documented assessment. Patient and/or family bp updated on plan of care and expected duration. Pain level reassessed. PT NOTED HYPOGLYCEMIC, MEDS ORDERED AND GIVEN. 17:24 Reassessment: Notified Dr. Yates of BS 79, received verbal order for D50 1 amp once and rb3 D5-1/2 NS with KCL 20 mEq/L \T\ 100 ml/h continuous. 18:03 Reassessment: Patient appears in no apparent distress at this time. Pt. resting with rb3 eyes closed, respirations even, unlabored. 19:30 General: Appears in no apparent distress. Behavior is drowsy, on 4 point restraint. rr5 Pain: Unable to use pain scale. Patient appears confused. Neuro: Level of Consciousness is confused, Oriented to none. Cardiovascular: Capillary refill < 3 seconds Patient's skin is warm and dry. Edema pitting to upper and lower extremities. Respiratory: Airway is patent Respiratory effort is even, unlabored, Respiratory pattern is regular, symmetrical. GI: Abdomen is round non-distended, in place, to gravity drainage. rectal tube in placed Abdomen is tender to palpation. : Henry in place to gravity drainage clamped. EENT: Eyes bruise left eye. Sclera/Cornea yellow. tongue bite, dry blood on the lips noted. Derm: Skin temperature is warm. Musculoskeletal: Capillary refill < 3 seconds. Vital Signs: 15:19 BP 130 / 81; Pulse 124; Resp 16; Pulse Ox 97% ; bp 15:55 BP 126 / 73; Pulse 120; Resp 19; Pulse Ox 96% ; rb3 15:56 Temp 99.0; rb3 16:40 BP 153 / 93; Pulse 116; Resp 18; Pulse Ox 95% ; rb3 17:00 BP 137 / 86; Pulse 109; Resp 20; Pulse Ox 97% ; bp 17:30 BP 138 / 91; Pulse 109; Resp 17; Pulse Ox 98% ; rb3 18:00 BP 143 / 89; Pulse 108; Resp 18; Pulse Ox 99% ; rb3 18:30 BP 154 / 86; Pulse 107; Resp 17; Pulse Ox 100% ; rb3 ED Course: 15:00 Patient arrived in ED. iw 15:00 Geraldo Yates MD is Attending Physician. rn 15:01 Jameson Cowan RN is Primary Nurse. bp 15:04 Arm band placed on right wrist. bp 15:04 Patient has correct armband on for positive identification. Placed in gown. Bed in low bp position. Call light in reach. Side rails up X2. slip cover estimator on. Pulse ox on. NIBP on. 15:05 Inserted saline lock: 18 gauge in right EJ, using aseptic technique. Blood collected. bp 15:21 Triage completed. bp 15:50 First set of blood cultures drawn by me. rb3 16:12 Bhavesh Pineda DO is Hospitalizing Provider. rn 16:16 CT Head Brain wo Cont In Process Unspecified. EDMS 18:09 Second set of blood cultures drawn by me. rb3 19:00 Henry cath inserted, using sterile technique, 16 Fr., by me, balloon inflated, to bp gravity drainage, RECTAL TUBE INSERTED FOR RETENTION ENEMA. 20:57 No provider procedures requiring assistance completed. IV is patent, with fluids rv infusing freely, Patient admitted, IV remains in place. 21:16 Inserted saline lock: 20 gauge in right ,using aseptic technique. abdomen. rr5 Restraints: 15:15 Non-Violent Restraint: Order obtained. Initiated on December 07, 2020 at 15:15 bp Restraint Education provided to family/significant other/legally authorized chain sales representative. Actions/Behavior observed: Confused/disoriented, has difficulty remembering/follow instructions, has impaired decision making, has decreased level of consciousness, unable to follow instructions, Less restrictive alternatives attempted: decrease environmental stimuli, placed near Nurse station, reoriented to location, medications evaluated, medicated for pain/anxiety, Alternative interventions: Ineffective. Clinical justification for use: patient safety, Mental status: agitated/restless, confused, Cognition: poor judgement, poor safety awareness, unable to follow commands, Circulation: Within defined parameters (based on Cardiovascular assessment) Skin integrity: Within defined parameters (based on Integumentary assessment) Signs of injury related to restraint: No injuries noted. Range of Motion (ROM): declined. Restraint status: Soft wrist restraint (Right) Started. Soft wrist restraint (Left) Started. Soft ankle restraint (Right) Started. Soft ankle restraint (Left) Started. Criteria to discontinue Restraint not met. Restraint continued. 17:15 Non-Violent Restraint: Actions/Behavior observed: Confused/disoriented, has difficulty bp remembering/follow instructions, has impaired decision making, has decreased level of consciousness, unable to follow instructions, Less restrictive alternatives attempted: decrease environmental stimuli, placed near Nurse station, reoriented to location, medications evaluated, medicated for pain/anxiety, Alternative interventions: Ineffective. Clinical justification for use: patient safety, Mental status: agitated/restless, confused, Cognition: poor judgement, poor safety awareness, unable to follow commands, Circulation: Within defined parameters (based on Cardiovascular assessment) Skin integrity: Within defined parameters (based on Integumentary assessment) Signs of injury related to restraint: No injuries noted. Range of Motion (ROM): declined. Restraint status: Soft wrist restraint (Right) Continued. Soft wrist restraint (Left) Continued. Soft ankle restraint (Right) Continued. Soft ankle restraint (Left) Continued. Criteria to discontinue Restraint not met. Restraint continued. 19:15 Non-Violent Restraint: Unable to provide Restraint education. connfused. rr5 Actions/Behavior observed: Confused/disoriented, has difficulty remembering/follow instructions, has impaired decision making, has decreased level of consciousness, unable to follow instructions, Less restrictive alternatives attempted: decrease environmental stimuli, placed near Nurse station, reoriented to location, medications evaluated, medicated for pain/anxiety, Alternative interventions: Ineffective. Clinical justification for use: line protection, patient safety, Mental status: agitated/restless, confused, Cognition: unable to follow commands, Circulation: Within defined parameters (based on Cardiovascular assessment) Skin integrity: Within defined parameters (based on Integumentary assessment) Signs of injury related to restraint: No injuries noted. Range of Motion (ROM): declined. Restraint status: Soft wrist restraint (Right) Continued. Soft wrist restraint (Left) Continued. Soft ankle restraint (Right) Continued. Soft ankle restraint (Left) Continued. Criteria to discontinue Restraint not met. Restraint continued. Administered Medications: 15:18 Drug: Ativan 2 mg Route: IVP; Site: right jugular; bp 16:23 Follow up: Response: Anxiety decreased bp 15:18 CANCELLED (Duplicate Order): LORazepam 2 mg IVP once bp 16:12 Drug: D50W 50 ml Route: IVP; Site: right jugular; rb3 16:38 Follow up: Response: No adverse reaction bp 16:15 Drug: NS 0.9% 1000 ml Route: IV; Rate: 1000 ml; Site: right jugular; bp 16:38 Follow up: IV Status: Completed infusion; IV Intake: 1000ml bp 17:27 Drug: D50W 50 ml Route: IVP; Site: right jugular; bp 17:28 Follow up: Response: No adverse reaction bp 17:28 Drug: D5-1/2 NS with KCl 20 mEq/L 1000 ml Route: IV; Rate: 100 ml/hr; Site: right bp jugular; 17:45 Follow up: Response: No adverse reaction rb3 19:00 Drug: Lactulose 200 grams Route: MA; bp 19:17 Follow up: Response: No adverse reaction bp 19:00 Drug: Ativan 1 mg Route: IVP; Site: right jugular; bp 20:00 Follow up: Response: No adverse reaction rr5 Point of Care Testing: Blood Glucose: 17:19 Blood Glucose: 79 mg/dL; rb3 18:08 Blood Glucose: 122 mg/dL; rb3 17:19 Dr. Yates notified. rb3 Ranges: Intake: 16:38 IV: 1000ml; Total: 1000ml. bp Outcome: 16:13 Decision to Hospitalize by Provider. rn 20:57 Admitted to ER Hold. Please see [facility] for further documentation. rv 20:57 Condition: stable 20:57 Instructed on the need for admit. 02/23 20:58 Patient left the ED. jb4 Signatures: Dispatcher [employer] EDPrincess Ash, RN RN iw Geraldo Yates MD MD rn Bryson, James, RN RN jb4 Jameson Cowan, RN RN Meng Doshi, RN RN Romel Dent RN RN rr5 Kirsten Adame, RN RN rb3 Corrections: (The following items were deleted from the chart) 12/07 17:27 17:14 Reassessment: PT NOTED HYPOGLYCEMIC, MEDS ORDERED AND GIVEN bp bp :18 19:30 Cardiovascular: Capillary refill < 3 seconds Patient's skin is warm and dry. rr5 rr5 : 19:30 GI: Abdomen is round in place, to gravity drainage. rectal tube in placed rr5 rr5 : 19:30 EENT: tongue bite, dry blood on the lips noted. rr5 rr5
--- NOTE | 2020-12-07 16:14 | EDPHYS ---
Physician Documentation [facility] Name: Lorena Hansen Age: 50 yrs Sex: Female : 1970 Arrival Date: 12/07/2020 Time: 15:00 Bed 7 Private MD: ED Physician Geraldo Yates HPI: 12/07 15:03 This 50 yrs old Female presents to ER via Unassigned with complaints of AMS. rn 15:03 The patient presents with agitation, confusion. Onset: The symptoms/episode rn began/occurred at an unknown time. Possible causes: unknown. Current symptoms: In the emergency department the patient's symptoms are unchanged from the initial presentation. The patient has experienced similar episodes in the past. Per EMS, only known hx of cirrhosis, unknown onset, stated this happens often and tends to be high ammonia, unclear if compliant with medication. No known trauma. . Historical: - Allergies: 15:02 Zofran; bp 15:02 PENICILLINS; bp - Home Meds: 15:02 Lactulose Oral [Active]; bp - PMHx: 15:02 COLON CA; Cirrhosis; bp - Immunization history:: Adult Immunizations unknown. - Social history:: Smoking status: unknown. - History obtained from: EMS. ROS: 15:03 Unable to obtain ROS due to altered mental status. rn Exam: 15:03 Constitutional: Overweight woman, yelling and agitated Head/Face: Normocephalic, rn atraumatic. Eyes: Pupils equal round and reactive to light, extra-ocular motions intact. + mild swelling left periorbital Cardiovascular: Tachycardic, regular Respiratory: + hyperventilating while fighting Abdomen/GI: soft, + fluid wave, distended MS/ Extremity: Moves all 4 extremities Neuro: Awake, agitated, not following commands, requiring restraints Vital Signs: 15:19 BP 130 / 81; Pulse 124; Resp 16; Pulse Ox 97% ; bp 15:55 BP 126 / 73; Pulse 120; Resp 19; Pulse Ox 96% ; rb3 15:56 Temp 99.0; rb3 16:40 BP 153 / 93; Pulse 116; Resp 18; Pulse Ox 95% ; rb3 17:00 BP 137 / 86; Pulse 109; Resp 20; Pulse Ox 97% ; bp 17:30 BP 138 / 91; Pulse 109; Resp 17; Pulse Ox 98% ; rb3 18:00 BP 143 / 89; Pulse 108; Resp 18; Pulse Ox 99% ; rb3 18:30 BP 154 / 86; Pulse 107; Resp 17; Pulse Ox 100% ; rb3 MDM: 15:00 Patient medically screened. rn 16:03 Differential Diagnosis: hypoglycemia, volume depletion, hepatic encephalopathy, rn hyperammonemia. Data reviewed: vital signs, nurses notes, lab test result(s), and as a result, I will admit patient. Counseling: I had a detailed discussion with the patient and/or guardian regarding: the historical points, exam findings, and any diagnostic results supporting the discharge/admit diagnosis, lab results, radiology results, the need for further work-up and treatment in the hospital. Response to treatment: the patient's symptoms have mildly improved after treatment, and as a result, I will admit patient. Admission orders: after a detailed discussion of the patient's condition and case, the admit orders are written by me. ED course: Pt improved with sedation, going to CT to rule out traumatic injury to head given ecchymosis around left eye, then will get lactulose for expected.. 12/07 15:02 Order name: CBC with Diff; Complete Time: 17:43 12/07 15:02 Order name: Basic Metabolic Panel; Complete Time: 15:59 12/07 15:02 Order name: LFT's; Complete Time: 15:59 12/07 15:02 Order name: PT-INR; Complete Time: 15:59 12/07 15:02 Order name: AMMONIA; Complete Time: 16:10 rn 12/07 15:02 Order name: Urine Microscopic Only rn 12/07 15:02 Order name: Procalcitonin; Complete Time: 16:39 rn 12/07 16:57 Order name: SARS-COV-2 RT PCR; Complete Time: 18:47 EDIN 12/07 16:58 Order name: Manual Differential; Complete Time: 18:47 EDIN 12/07 17:13 Order name: Urine Drug Screen EDIN 12/07 17:13 Order name: Blood Culture EDIN 12/07 17:13 Order name: Urine Culture EDIN 12/07 17:19 Order name: Glucose, Ancillary Testing; Complete Time: 18:47 EDIN 12/07 18:23 Order name: Glucose, Ancillary Testing; Complete Time: 18:47 EDMS 12/08 05:15 Order name: CBC with Automated Diff EDMS 12/08 05:23 Order name: Comprehensive Metabolic Panel EDMS 12/08 05:23 Order name: Magnesium EDMS 12/08 05:23 Order name: Ammonia EDMS 12/08 15:19 Order name: Gram Stain--Aerobic Bottle EDMS 12/09 00:10 Order name: Glucose, Ancillary Testing EDMS 12/09 01:47 Order name: Glucose, Ancillary Testing EDMS 12/09 06:22 Order name: CBC with Automated Diff EDMS 12/09 06:33 Order name: Ammonia EDMS 12/09 06:35 Order name: Comprehensive Metabolic Panel EDMS 12/09 06:35 Order name: Magnesium EDMS 12/09 06:36 Order name: Glucose, Ancillary Testing EDMS 12/09 07:33 Order name: Gram Stain--Anaerobic Bottle EDMS 12/09 12:18 Order name: Ammonia EDMS 12/07 15:02 Order name: IV Start; Complete Time: 15:19 rn 12/07 15:03 Order name: Glucose Level; Complete Time: 15:23 rn 12/07 15:32 Order name: CT Head Brain wo Cont; Complete Time: 16:39 rn 12/07 16:23 Order name: Restraint:Non-Violent; Complete Time: 16:24 bp 12/07 17:13 Order name: CONS Pharmacy Consult EDMS 12/07 17:13 Order name: NPO EDMS 12/07 17:24 Order name: Social Service Consult EDMS 12/09 12:18 Order name: Basic Metabolic Panel EDMS 12/09 17:18 Order name: Glucose, Ancillary Testing EDMS Administered Medications: 15:18 Drug: Ativan 2 mg Route: IVP; Site: right jugular; bp 16:23 Follow up: Response: Anxiety decreased bp 15:18 CANCELLED (Duplicate Order): LORazepam 2 mg IVP once bp 16:12 Drug: D50W 50 ml Route: IVP; Site: right jugular; rb3 16:38 Follow up: Response: No adverse reaction bp 16:15 Drug: NS 0.9% 1000 ml Route: IV; Rate: 1000 ml; Site: right jugular; bp 16:38 Follow up: IV Status: Completed infusion; IV Intake: 1000ml bp 17:27 Drug: D50W 50 ml Route: IVP; Site: right jugular; bp 17:28 Follow up: Response: No adverse reaction bp 17:28 Drug: D5-1/2 NS with KCl 20 mEq/L 1000 ml Route: IV; Rate: 100 ml/hr; Site: right bp jugular; 17:45 Follow up: Response: No adverse reaction rb3 19:00 Drug: Lactulose 200 grams Route: [place]; bp 19:17 Follow up: Response: No adverse reaction bp 19:00 Drug: Ativan 1 mg Route: IVP; Site: right jugular; bp 20:00 Follow up: Response: No adverse reaction rr5 Point of Care Testing: Blood Glucose: 17:19 Blood Glucose: 79 mg/dL; rb3 18:08 Blood Glucose: 122 mg/dL; rb3 17:19 Dr. Yates notified. rb3 Ranges: Critical Glucose Levels:Adult <50 mg/dl or >400 mg/dl <40 mg/dl or >180 mg/dl Disposition: 12/07/20 16:13 Hospitalization ordered by Bhavesh Pineda for Inpatient Admission. Preliminary diagnosis are Altered mental status, unspecified, Hyperammonemia. - Bed requested for Telemetry/MedSurg (Inpatient). - Status is Inpatient Admission. jb4 - Condition is Fair. - Problem is an acute exacerbation. - Symptoms have improved. Signatures: Dispatcher [employer] EDMS Vivi Hedrick, RN RN Geraldo Ogden MD MD rn Attema, Lee, JAVA PERFORMANCE ENGINEER-C JAVA PERFORMANCE ENGINEER-Cla1 Ciera Gilmore RN RN cg Song Florian, RN RN jb4 Jordi Collazo RN RN ja1 Jameson Cowan RN RN bp Kirsten Adame, RN RN rb3 Romel Ortiz RN rr5 Corrections: (The following items were deleted from the chart) 15:18 15:18 LORazepam 2 mg IVP once ordered. bp bp 16:16 15:03 CORONAVIRUS+MR.LAB.BRZ ordered. EDMS EDMS 16:58 15:39 CBC Smear Scan ordered. EDIN EDMS 20:33 16:13 Hospitalization Ordered by Bhavesh Pineda DO for Inpatient Admission. Preliminary cg diagnosis is Altered mental status, unspecified; Hyperammonemia. Bed requested for Intensive Care Unit. Status is Inpatient Admission. Condition is Fair. Problem is an acute exacerbation. Symptoms have improved. rn 12/09 18:28 12/07 20:33 12/07/2020 16:13 Hospitalization Ordered by Bhavesh Pineda DO for Inpatient ja1 Admission. Preliminary diagnosis is Altered mental status, unspecified; Hyperammonemia. Bed requested for [facility] ER HOLD. Status is Inpatient Admission. Condition is Fair. Problem is an acute exacerbation. Symptoms have improved. cg 12/09 20:18 18:28 12/07/2020 16:13 Hospitalization Ordered by Bhavesh Pineda DO for Inpatient bb Admission. Preliminary diagnosis is Altered mental status, unspecified; Hyperammonemia. Bed requested for Telemetry/MedSurg (Inpatient). Status is Inpatient Admission. Condition is Fair. Problem is an acute exacerbation. Symptoms have improved. ja1 20:58 20:18 12/07/2020 16:13 Hospitalization Ordered by Bhavesh Pineda DO for Inpatient jb4 Admission. Preliminary diagnosis is Altered mental status, unspecified; Hyperammonemia. Bed requested for Telemetry/MedSurg (Inpatient). Status is Inpatient Admission. Condition is Fair. Problem is an acute exacerbation. Symptoms have improved. bb
[2020-12-07] MEDS ORDERED: NA CHLORIDE 0.9% 1,000 ML ONE (16:29)
[2020-12-07] MEDS ORDERED: D50W 25 GM/50 ML SYRINGE IV ONE ×2 (16:29→17:30)
--- NOTE | 2020-12-07 16:34 | RAD REPORT ---
EXAM DESCRIPTION: CT - Head Brain Wo Cont - 12/07/2020 4:16 pm CLINICAL HISTORY: CONFUSED COMPARISON: Head Brain Wo Cont dated 11/28/2020 TECHNIQUE: Axial 5 mm thick images of the head were obtained without IV contrast. All CT scans are performed using dose optimization technique as appropriate and may include automated exposure control or mA/KV adjustment according to patient size. FINDINGS: No intracranial hemorrhage, mass, edema or shift of mid-line structures. No acute infarcti on changes seen. No abnormal extra-axial fluid collections. Ventricles are normal. Mastoid air cells are clear. Mucosal thickening with air-fluid level present in the left maxillary si nus. No acute bony findings. IMPRESSION: No intracranial abnormality identified. Left maxillary sinusitis findings
[2020-12-07 16:59] LABS: Blood Morphology Comment NOTED (NOT SEEN); Hypochromasia 1+; Platelet Estimate DECR; Polychromasia 1+
[2020-12-07] MEDS ORDERED: ACETAMINOPHEN 650MG/RECT SUPP PR PRN (17:11)
[2020-12-07] MEDS ORDERED: SODIUM CHLORIDE 0.9% 10ML INJ IV PRN (17:11)
[2020-12-07] MEDS ORDERED: PROMETHAZINE INJ 25 MG/ML AMP IV PRN (17:11)
[2020-12-07] MEDS: D5 0.45 NS 1,000 ML IV SCH (17:11)
--- NOTE | 2020-12-07 17:23 | P.HP ---
Certification for Inpatient Patient admitted to: Inpatient With expected LOS: >2 Midnights Patient will require the following post-hospital care: None Practitioner: I am a practitioner with admitting privileges, knowledge of patient current condition, hospital course, and medical plan of care. Services: Services provided to patient in accordance with Admission requirements found in Title 42 Section 412.3 of the Code of Federal Regulations Patient History Date of Service: 12/07/20 Primary Care Provider: None Reason for admission: Altered mental status History of Present Illness: 50-year-old female with history of alcoholic liver cirrhosis with recurrent admissions for hepatic encephalopathy due to noncompliance. Patient presents to the emergency room with altered mental status. She was brought in by EMS. Nurses report that patient was brought from a hotel were she stays. Nurses report patient is not been taking her medications-lactulose. Patient recently hospitalized for hepatic encephalopathy. She was positive for amphetamines at that time. In the ER patient was evaluated. Patient was agitated and combative. Patient had ecchymoses to the left eye. Patient required Ativan 2 mg IV due to the agitation. Patient also given D50 due to hypoglycemia. On lab white count 8.5, hemoglobin 9.1. Platelet count 83. Sodium 144, potassium 4.1. Chloride 113, Aiden dioxide 24. BUN of 16, creatinine 0.84, glucose 58. Pro calcitonin 0.07. Ammonia level 145. INR 1.77. CT head unremarkable. Patient admitted for further evaluation and treatment. When I saw the patient ER, patient was sedated and restrained. Not able to get any more information from patient or family. Allergies ondansetron [From Zofran] Allergy (Verified 06/14/20 21:06) Anaphylaxis Home medications list reviewed: Yes Home Medications: Furosemide 40 mg PO BID 06/24/20 Spironolactone 25 mg PO BID 11/02/20 Ciprofloxacin HCl 500 mg PO BID 7 Days #14 tablet 11/06/20 Lactulose 45 ml PO TID #4000 ml 11/06/20 Rifaximin [Xifaxan] 550 mg PO BID #60 11/24/20 Amlodipine [Norvasc*] 5 mg PO DAILY #30 tab 12/01/20 - Past Medical/Surgical History Diabetic: No -: Advanced liver cirrhosis -: History of GERD with ulcer -: Diastolic CHF -: History of Esophageal varices -: Methamphetamine abuse -: Noncompliance with medication -: Recurrent admissions for hepatic encephalopathy -: Endoscopy -: GB Sx Psychosocial/ Personal History: Unknown - Family History Mother -: Cancer Father -: Heart disease - Social History Smoking Status: Unknown if ever smoked Alcohol use: No CD- Drugs: No Caffeine use: No Place of Residence: Home Review of Systems is unable to be obtained Physical Examination - Studies Laboratory Data (last 24 hrs) 12/07/20 15:15: PT 20.5 H, INR 1.77 12/07/20 15:15: Sodium 144, Potassium 4.1, BUN 16, Creatinine 0.84, Glucose 58 L, Total Bilirubin 4.4 H, AST 112 H, ALT 70, Alkaline Phosphatase 115 12/07/20 15:15: WBC 8.50 D, Hgb 9.1 L, Hct 28.3 L, Plt Count 83 L D Assessment and Plan - Plan Initial chief complaint: 50-year-old female with history of advanced liver alcoholic cirrhosis with recurrent hepatic encephalopathy due to noncompliance. Physical exam: Patient with increased somnolence. Patient had been given Ativan 2 mg due to increase agitation and combativeness. Patient currently in restraints. HEENT: Ecchymosis to the left orbital. Mouth dry. Dried blood noted to the mouth. Heart: Regular rate and rhythm Lungs: Breath sounds clear anteriorly Abdomen: Ascites noted but unchanged from prior. Extremities: 1 to 2+ pitting edema to the lower extremities to the legs. Impression: Altered mental status with combativeness/agitation secondary to recurrent hepatic encephalopathy complicated with advanced alcoholic liver cirrhosis Elevated liver function, hyperbilirubinemia, hyperammonia secondary to advanced liver cirrhosis Anasarca with ascites Hypoglycemia suspect malnutrition and related to above GERD with history of esophageal varices Anemia of chronic disease with thrombocytopenia likely related to liver cirrhosis History of Methamphetamine abuse Noncompliance with medication and follow up Plan: Altered mental status with combativeness/agitation secondary to recurrent hepatic encephalopathy complicated with advanced alcoholic liver cirrhosis: Patient will be admitted for further evaluation and treatment. Will admit to ICU. Patient received Ativan due to agitation and combativeness. Will hold sedation medication at this time. Will have pharmacy dose lactulose for enema. Need to monitor ammonia level closely. Will monitor for further agitation. Will start D5 half-normal IV fluids. Will start IV Rocephin to empirically cover for infection. Blood cultures, urine cultures obtained. Obtain urine drug screen. Will provide IV Protonix, folic acid and thiamine. Will monitor the patient closely. Aspiration and fall precaution in place. Sitter will be required. Will continue monitor closely. Monitor serial lab. Will continue to reassess. Need to obtain more information from significant other. I will turn the service over to the hospitalist team tomorrow. I will go over plan of care with him. Elevated liver function, hyperbilirubinemia, hyperammonia secondary to advanced liver cirrhosis: Anticipate improvement with treatment. Will monitor closely. Continue as above. Anasarca with ascites: Will start Lasix once patient is improved. Hypoglycemia suspect malnutrition and related to above: D50 given in the ER. D5 half normal to be started. Will monitor electrolytes and adjust. GERD with history of esophageal varices: Continue IV Protonix. Anemia of chronic disease with thrombocytopenia likely related to liver cirrhosis: Monitor closely. Monitor lab. DVT prophylaxis in place. Hold if platelets less than 90. History of Methamphetamine abuse: Will check urine drug screen. Noncompliance with medication and follow up: Will need to address lifestyle modification. Will need to address this in detail with significant other. This is becoming more problematic. Will need to consider other options of care including long-term placement. Will check with social media intern. Discharge Plan: Other ([facility]) Plan to discharge in: Greater than 2 days - Advance Directives Does patient have a Living Will: No Does patient have a Durable POA for Healthcare: No - Code Status/Comfort Care Code Status Assessed: No (This could not be obtained. Will assess tomorrow.) Time Spent Managing Pts Care (In Minutes): 55
[2020-12-07] MEDS ORDERED: D5.45NS W/KCL 20MEQ 1,000 ML IV ONE (17:30)
[2020-12-07] MEDS: CEFTRIAXONE/SWI 1gm 1 GM/10 ML SYR IV SCH (18:00)
[2020-12-07] MEDS ORDERED: LACTULOSE 20 GM/30 ML UCUP ONE (19:01)
[2020-12-07] MEDS ORDERED: NA CHLORIDE 0.9% 500 ML ONE (19:05)
[2020-12-07] MEDS: HEPARIN 5000 UNIT/ML 1 ML VIAL SQ SCH (21:00)
[2020-12-07] MEDS: PANTOPRAZOLE 40 MG INJ IVP SCH (21:00)
[2020-12-07] MEDS ORDERED: HEPARIN 5000 UNIT/ML 1 ML VIAL ONE (21:26)
[2020-12-07] MEDS ORDERED: PANTOPRAZOLE 40 MG INJ ONE (21:26)
[2020-12-07] MEDS ORDERED: CEFTRIAXONE/SWI 1gm 1 GM/10 ML SYR ONE (21:26)
[2020-12-07 21:41] VITALS: BMI 31.3
[2020-12-08] MEDS ORDERED: LORazepam 2 MG/ML VIAL ONE (00:07)
[2020-12-08] MEDS ORDERED: LORazepam 2 MG/ML VIAL IV ONE (00:27)
[2020-12-08 05:08] LABS: Absolute Lymphocytes (CBC) 1.4 K/uL (0.7-4.9); Basophils % 0.4 % (0-1.3); Hematocrit 24.7 % (36.0-45.0); Lymphocytes % 27.7 % (15.3-44.8); MPV 9.3 fL (7.6-11.3); RBC Red Blood Cell Count 2.78 M/uL (3.86-4.86)
[2020-12-08 05:15] LABS: Albumin 1.4 g/dL (3.4-5.0); Bilirubin Total 4.3 mg/dL (0.2-1.0); Magnesium 1.8 mg/dL (1.8-2.4); Potassium 3.6 mmol/L (3.5-5.1); Protein, Total 4.4 g/dL (6.4-8.2)
[2020-12-08] MEDS ORDERED: D5 0.45 NS 500 ML IV ONE ×2 (06:43→15:16)
[2020-12-08] MEDS ORDERED: KCL 20 MEQ/100 mL IVPB 20 MEQ/100 ML BAG IV ONE ×2 (06:43→07:00)
[2020-12-08] MEDS ORDERED: MAGNESIUM SULFATE 1 gm IVPB 1 GM/100 ML BAG IV ONE (07:00)
[2020-12-08] MEDS ORDERED: HEPARIN 5000 UNIT/ML 1 ML VIAL ONE ×2 (08:27→19:40)
[2020-12-08] MEDS ORDERED: THIAMINE HCL 100 MG TABLET ONE (08:27)
[2020-12-08] MEDS ORDERED: PANTOPRAZOLE 40 MG INJ ONE ×2 (08:28→19:40)
[2020-12-08] MEDS ORDERED: FOLIC ACID 5 MG/ML VIAL ONE (08:28)
[2020-12-08] MEDS ORDERED: Magnesium Sulfate 2gm IVPB 2 G/50 ML BAG IV ONE (08:29)
[2020-12-08] MEDS ORDERED: CEFTRIAXONE/SWI 1gm 1 GM/10 ML SYR ONE (08:29)
[2020-12-08] MEDS ORDERED: THIAMINE 200 MG/2 ML INJ ONE (08:49)
[2020-12-08] MEDS: PANTOPRAZOLE 40 MG INJ IVP SCH ×2 (09:00→20:12)
[2020-12-08] MEDS: HEPARIN 5000 UNIT/ML 1 ML VIAL SQ SCH ×2 (09:00→20:11)
[2020-12-08] MEDS: CEFTRIAXONE/SWI 1gm 1 GM/10 ML SYR IV SCH (09:00)
[2020-12-08] MEDS: THIAMINE 200 MG/2 ML INJ IVP SCH (09:00)
[2020-12-08] MEDS: FOLIC ACID 5 MG/ML VIAL IVP SCH (09:00)
[2020-12-08] MEDS: D5 0.45 NS 1,000 ML IV SCH ×2 (15:02→23:52)
[2020-12-09] MEDS ORDERED: D50W 25 GM/50 ML SYRINGE IV ONE ×2 (00:03→00:53)
[2020-12-09] MEDS ORDERED: D5 0.45 NS 1,000 ML IV ONE (00:08)
[2020-12-09] MEDS ORDERED: D5 0.9 NS 1,000 ML IV SCH (01:00)
[2020-12-09] MEDS ORDERED: D5 0.45 NS 1,000 ML IV SCH (01:00)
[2020-12-09 01:05] LABS: Barbiturates NEGATIVE (NEGATIVE); Benzodiazepines POSITIVE (NEGATIVE); Cocaine NEGATIVE (NEGATIVE); METHAMPHETAM POSITIVE (NEGATIVE); Methadone NEGATIVE (NEGATIVE); Opiates NEGATIVE (NEGATIVE); Phencyclidine NEGATIVE (NEGATIVE); THC Cannibis NEGATIVE (NEGATIVE)
[2020-12-09 06:15] LABS: Absolute Lymphocytes (CBC) 1.4 K/uL (0.7-4.9); Basophils % 0.7 % (0-1.3); Lymphocytes % 23.3 % (15.3-44.8); RBC Red Blood Cell Count 3.01 M/uL (3.86-4.86)
[2020-12-09 06:34] LABS: Albumin 1.3 g/dL (3.4-5.0); Bilirubin Total 3.6 mg/dL (0.2-1.0); Magnesium 2.1 mg/dL (1.8-2.4); Protein, Total 4.5 g/dL (6.4-8.2)
--- NOTE | 2020-12-09 07:42 | P.CNS ---
Date of Consult: 12/09/20 Reason for Consult: Hypernatremia, hypocalcemia, volume overload. Requesting Physician: Lan Valladares Primary Care Provider: None Chief Complaint: Altered mental status History of Present Illness: 50 y o female pt with hx of decompensated liver cirrhosis, poor compliance with medical tehrapy admitted for management of altered mental status and found to have hyperammonemia. She also developed hypernatremia while on admission warranting nephrology consultation. she s now better a sper mentation and she denied any issues with sob, chest pain, headache, fever chills, or abd pain. her sodium is elevated at 148 and her calcium is 7.3. Allergies ondansetron [From Zofran] Allergy (Verified 06/14/20 21:06) Anaphylaxis Home Medications: Furosemide 40 mg PO BID 06/24/20 Spironolactone 25 mg PO BID 11/02/20 Ciprofloxacin HCl 500 mg PO BID 7 Days #14 tablet 11/06/20 Lactulose 45 ml PO TID #4000 ml 11/06/20 Rifaximin [Xifaxan] 550 mg PO BID #60 11/24/20 Amlodipine [Norvasc*] 5 mg PO DAILY #30 tab 12/01/20 - Past Medical/Surgical History Diabetic: No -: Advanced liver cirrhosis -: History of GERD with ulcer -: Diastolic CHF -: History of Esophageal varices -: Methamphetamine abuse -: Noncompliance with medication -: Recurrent admissions for hepatic encephalopathy -: Endoscopy -: GB Sx Psychosocial/ Personal History: Unknown - Family History Mother Medical History: Cancer Father Medical History: Heart disease - Social History Smoking Status: Unknown if ever smoked Alcohol use: No CD- Drugs: No Caffeine use: No Place of Residence: Home Review of Systems General: Weakness, Malaise Eyes: Unremarkable ENT: Unremarkable Respiratory: Unremarkable Cardiovascular: Unremarkable Gastrointestinal: Unremarkable Genitourinary: Unremarkable Musculoskeletal: Pedal edema Integumentary: Unremarkable Neurological: Unremarkable Physical Examination Temp Pulse Resp BP Pulse Ox 97.8 F 108 H 17 135/75 98 12/09/20 06:46 12/09/20 06:46 12/09/20 06:46 12/09/20 06:46 12/09/20 06:46 General: Alert, Oriented x3 HEENT: Atraumatic, Normocephalic, PERRLA Neck: Supple Respiratory: Clear to auscultation bilaterally, Normal air movement Cardiovascular: Regular rate/rhythm, Normal S1 S2, Edema Gastrointestinal: Soft and benign Musculoskeletal: Swelling Integumentary: No rashes Neurological: Normal speech, Sensation intact, Cranial nerves 3-12 intact Conclusions/Impression: 1.Hypernatremia-sodium is elevated at 148. we will start free water with D5W and monitor sodium level closely. 2.Hypocalcemia-calcium is 7.3 but corrected for hypoalbuminemia, she is normal at 9.5. we will monitor closely. 3.Hepatic encephalopathy-improving on lactulose. we will monitor. 4.Hypertension-we will continue to monitor her vitals and continue antihypertensive meds. 5.Decompensated liver cirrhosis with hypoalbuminemia-she does have significantly low albumin of 1.3. we will give 25% albumin x2 days to assist with mobilizing thrid spaced fluid in interstitium/abd and help reduce edema. we will also start Iv alsix for diuresis and monitor volume status closely.
--- NOTE | 2020-12-09 07:44 | P.PN ---
Subjective Date of Service: 12/08/20 Patient is pleasantly confused. She does wake up but is not really responsive at this time. She normally takes about 24-48 hr before she really starts Perking up from her encephalopathy. Continue with lactulose. Will give enema as needed. Review of Systems is unable to be obtained Physical Examination - Vital Signs Temperature: 97.8 F Blood Pressure: 135/75 Pulse: 108 Respirations: 17 Pulse Ox (%): 98 - Physical Exam General: Alert, In no apparent distress, Confused Neck: JVD not distended Respiratory: Clear to auscultation bilaterally, Normal air movement Cardiovascular: Regular rate/rhythm, Normal S1 S2, No murmurs Gastrointestinal: Normal bowel sounds, Soft and benign, Non-distended, No tenderness Musculoskeletal: No clubbing, No swelling, No tenderness Neurological: Sensation intact, Cranial nerves 3-12 intact - Studies Medications List Reviewed: Yes Assessment & Plan - Problems (Diagnosis) (1) Hepatic encephalopathy Current Visit: No Status: Acute (2) Lactic acidosis Current Visit: No Status: Acute (3) Liver cirrhosis Current Visit: No Status: Acute - Plan Plan: 1. Continue with lactulose. 2. Monitor mental status-neurochecks Q 6 3. Monitor labs closely 4. Repeat electrolytes 5. GI and DVT prophylaxis Discharge Plan: Home Plan to discharge in: 72 Hours - Advance Directives Does patient have a Living Will: No Does patient have a Durable POA for Healthcare: No - Code Status/Comfort Care Code Status Assessed: Yes Code Status: Full Code Critical Care: No Time Spent Managing PTS Care (In Minutes): 35
[2020-12-09] MEDS ORDERED: HEPARIN 5000 UNIT/ML 1 ML VIAL ONE (08:13)
[2020-12-09] MEDS ORDERED: PANTOPRAZOLE 40 MG INJ ONE (08:13)
[2020-12-09] MEDS ORDERED: CEFTRIAXONE/SWI 1gm 1 GM/10 ML SYR ONE (08:14)
[2020-12-09] MEDS ORDERED: FOLIC ACID 5 MG/ML VIAL ONE (08:14)
[2020-12-09] MEDS: PANTOPRAZOLE 40 MG INJ IVP SCH ×2 (09:00→21:54)
[2020-12-09] MEDS: D5W 1,000 ML IV SCH ×2 (09:00→21:52)
[2020-12-09] MEDS: ALBUMIN HUMAN 25% 100 ML IV SCH ×3 (09:00→21:53)
[2020-12-09] MEDS: FOLIC ACID 5 MG/ML VIAL IVP SCH (09:00)
[2020-12-09] MEDS: THIAMINE 200 MG/2 ML INJ IVP SCH (09:00)
[2020-12-09] MEDS: CEFTRIAXONE/SWI 1gm 1 GM/10 ML SYR IV SCH (09:00)
[2020-12-09] MEDS: HEPARIN 5000 UNIT/ML 1 ML VIAL SQ SCH ×2 (09:00→21:00)
[2020-12-09] MEDS: FUROSEMIDE 20 MG/ 2ML VIAL IV SCH (09:00)
[2020-12-09] MEDS ORDERED: PROMETHAZINE INJ 25 MG/ML AMP ONE (10:46)
[2020-12-09] MEDS ORDERED: FUROSEMIDE 20 MG/ 2ML VIAL ONE (10:46)
[2020-12-09] MEDS ORDERED: ALBUMIN HUMAN 25% 50 ML IV ONE (10:47)
[2020-12-09] MEDS ORDERED: THIAMINE 200 MG/2 ML INJ ONE (10:47)
[2020-12-09] MEDS ORDERED: D5W 1,000 ML IV ONE (10:47)
[2020-12-09] MEDS ORDERED: MORPHINE 2 MG/ML SYR IV ONE ×2 (11:05→19:00)
[2020-12-09] MEDS ORDERED: LORAZEPAM 0.5 MG TABLET PO ONE (11:05)
[2020-12-09] MEDS ORDERED: DEXTROSE 10%-WATER 500 ML IV ONE (11:09)
[2020-12-09] MEDS ORDERED: LORAZEPAM 0.5 MG TABLET ONE (11:38)
[2020-12-09] MEDS ORDERED: MORPHINE 2 MG/ML SYR ONE (11:38)
[2020-12-09 12:18] LABS: Potassium 3.6 mmol/L (3.5-5.1)
[2020-12-09] MEDS ORDERED: LORazepam 2 MG/ML VIAL IV ONE (19:00)
[2020-12-10] MEDS ORDERED: D50W 25 GM/50 ML SYRINGE IV ONE (01:32)
[2020-12-10] MEDS: DEXTROSE 10%-WATER 500 ML IV SCH ×3 (01:41→21:30)
[2020-12-10] MEDS: MORPHINE 2 MG/ML SYR IV PRN ×3 (03:03→15:22)
[2020-12-10 04:54] LABS: Basophils % 0.6 % (0-1.3); Hematocrit 25.2 % (36.0-45.0); Lymphocytes % 32.2 % (15.3-44.8); MPV 8.5 fL (7.6-11.3); RBC Red Blood Cell Count 2.81 M/uL (3.86-4.86)
[2020-12-10 05:10] LABS: ALT/SGPT 51 U/L (12-78); AST/SGOT 87 U/L (15-37); Albumin 1.9 g/dL (3.4-5.0); Alkaline Phosphatase 91 U/L (45-117); BUN Blood Urea Nitrogen 15 mg/dL (7-18); Bicarbonate 28 mmol/L (21-32); Bilirubin Total 4.1 mg/dL (0.2-1.0); Glucose Level 86 mg/dL (74-106); Magnesium 1.8 mg/dL (1.8-2.4); Potassium 3.4 mmol/L (3.5-5.1); Protein, Total 4.6 g/dL (6.4-8.2); Sodium Level 147 mmol/L (136-145)
[2020-12-10] MEDS: ALBUMIN HUMAN 25% 100 ML IV SCH ×5 (05:48→20:57)
[2020-12-10] MEDS ORDERED: MAGNESIUM SULFATE 1 gm IVPB 1 GM/100 ML BAG IV ONE (08:00)
[2020-12-10] MEDS: CEFTRIAXONE/SWI 1gm 1 GM/10 ML SYR IV SCH (08:49)
[2020-12-10] MEDS: PANTOPRAZOLE 40 MG INJ IVP SCH ×2 (08:50→20:58)
[2020-12-10] MEDS: THIAMINE 200 MG/2 ML INJ IVP SCH (08:50)
[2020-12-10] MEDS: HEPARIN 5000 UNIT/ML 1 ML VIAL SQ SCH ×2 (08:50→21:00)
[2020-12-10] MEDS: FUROSEMIDE 20 MG/ 2ML VIAL IV SCH ×3 (08:55→16:49)
[2020-12-10] MEDS ORDERED: KCL 20 MEQ/100 mL IVPB 20 MEQ/100 ML BAG IV ONE (09:00)
[2020-12-10] MEDS: FOLIC ACID 5 MG/ML VIAL IVP SCH (09:14)
--- NOTE | 2020-12-10 09:47 | P.PN ---
Subjective Date of Service: 12/10/20 Primary Care Provider: None Chief Complaint: Altered mental status Subjective: No new changes, Improving Physical Examination - Vital Signs Temperature: 98.5 F Blood Pressure: 151/89 Pulse: 105 Respirations: 18 Pulse Ox (%): 95 - Physical Exam General: Other (sleeping) HEENT: Atraumatic, Normocephalic Neck: Supple Respiratory: Clear to auscultation bilaterally Cardiovascular: Regular rate/rhythm, Normal S1 S2 Gastrointestinal: Soft and benign Musculoskeletal: Swelling - Studies Medications List Reviewed: Yes Assessment And Plan - Plan 1.Hypernatremia-sodium is still elevated at 147. we will continue free water with D5W and monitor sodium level closely. 2.Hypocalcemia-calcium is 7.3 but corrected for hypoalbuminemia, she is normal at 9.5. we will monitor closely. 3.Hepatic encephalopathy-improving on lactulose. we will monitor. 4.Hypertension-we will continue to monitor her vitals and continue antihypertensive meds. 5.Decompensated liver cirrhosis with hypoalbuminemia-she does have significantly low albumin of 1.3. we will continue 25% albumin x2 days to assist with mobilizing third spaced fluid in interstitium/abd and help reduce edema. we will continue Iv lasix for diuresis and monitor volume status closely. urine output is encouraging presently.
[2020-12-10] MEDS ORDERED: NA CHLORIDE 0.9% 0 ML ONE (10:02)
[2020-12-10] MEDS ORDERED: KCL 20 MEQ/100 mL IVPB 20 MEQ/100 ML BAG IV SCH (21:00)
[2020-12-11] MEDS: ALBUMIN HUMAN 25% 100 ML IV SCH ×2 (02:42→10:53)
[2020-12-11] MEDS: MORPHINE 2 MG/ML SYR IV PRN ×3 (02:43→23:53)
[2020-12-11] MEDS: DEXTROSE 10%-WATER 500 ML IV SCH ×2 (06:22→20:45)
--- NOTE | 2020-12-11 10:03 | P.PN ---
Date of Service: 12/09/20 Subjective Patient is still fairly lethargic. She wakes up & answer some of my questions. But she tends to holler out a lot. She is not really making a lot of sense. Review of Systems is unable to be obtained Physical Examination - Vital Signs reviewed - Physical Exam General: Confused Respiratory: Clear to auscultation bilaterally, Normal air movement Cardiovascular: Regular rate/rhythm, Normal S1 S2, No murmurs Gastrointestinal: Normal bowel sounds, Soft and benign, Mild abdominal distention Musculoskeletal: No clubbing, No swelling, No tenderness Neurological: Sensation intact, Cranial nerves 3-12 intact Assessment & Plan - Problems (Diagnosis) (1) Hepatic encephalopathy Current Visit: No Status: Acute (2) Lactic acidosis Current Visit: No Status: Acute (3) Liver cirrhosis Current Visit: No Status: Acute - Plan Plan: 1. Continue with lactulose. Will probably need to do a lactulose enema 2. Monitor mental status-neurochecks Q 6 3. Monitor labs closely; monitor ammonia 4. Repeat electrolytes 5. GI and DVT prophylaxis
--- NOTE | 2020-12-11 10:51 | P.PN ---
Subjective Date of Service: 12/11/20 Primary Care Provider: None Chief Complaint: Altered mental status Subjective: No new changes, Improving (urine output is better.) Physical Examination - Vital Signs Temperature: 98.6 F Blood Pressure: 176/88 Pulse: 113 Respirations: 16 Pulse Ox (%): 95 - Physical Exam General: Alert, Oriented x3 HEENT: Atraumatic, Normocephalic Neck: Supple Respiratory: Clear to auscultation bilaterally Cardiovascular: Edema (resolving.) Gastrointestinal: Normal bowel sounds, Soft and benign Neurological: Normal speech, Normal strength at 5/5 x4 extr, Cranial nerves 3-12 intact - Studies Microbiology Data (last 24 hrs): 12/07/20 03:30 Catheterized Urine [place] Count - Final BETWEEN 10,000 & 100,000 CFU/ML 12/07/20 03:30 Catheterized Urine - Final Medications List Reviewed: Yes Assessment And Plan - Plan 1.Hypernatremia-sodium is still elevated at 147 on last check. awaiting labs today. we will continue free water with D5W and monitor sodium level closely. 2.Hypocalcemia-calcium is 7.3 but corrected for hypoalbuminemia, she is normal at 9.5. we will monitor closely. 3.Hepatic encephalopathy-improving on lactulose. we will monitor. 4.Hypertension-we will continue to monitor her vitals and continue antihypertensive meds. 5.Decompensated liver cirrhosis with hypoalbuminemia-she does have significantly low albumin of 1.3. we will continue 25% albumin x2 days to assist with mobilizing third spaced fluid in interstitium/abd and help reduce edema. we will continue Iv lasix for diuresis and monitor volume status closely. urine output continues to be encouraging presently.
[2020-12-11] MEDS: CEFTRIAXONE/SWI 1gm 1 GM/10 ML SYR IV SCH (10:53)
[2020-12-11] MEDS: FUROSEMIDE 20 MG/ 2ML VIAL IV SCH ×2 (10:53→17:54)
[2020-12-11] MEDS: PANTOPRAZOLE 40 MG INJ IVP SCH ×2 (10:53→20:45)
[2020-12-11] MEDS: THIAMINE 200 MG/2 ML INJ IVP SCH (10:53)
[2020-12-11] MEDS: HEPARIN 5000 UNIT/ML 1 ML VIAL SQ SCH ×2 (10:54→20:45)
[2020-12-11] MEDS: FOLIC ACID 5 MG/ML VIAL IVP SCH (11:11)
[2020-12-11 11:51] LABS: Protime INR 1.99
[2020-12-11 11:52] LABS: Absolute Lymphocytes (CBC) 0.8 K/uL (0.7-4.9); Basophils % 0.5 % (0-1.3); Hematocrit 23.5 % (36.0-45.0); Lymphocytes % 25.8 % (15.3-44.8); MPV 8.7 fL (7.6-11.3); RBC Red Blood Cell Count 2.63 M/uL (3.86-4.86)
[2020-12-11 11:53] LABS: ALT/SGPT 44 U/L (12-78); AST/SGOT 83 U/L (15-37); Albumin 2.3 g/dL (3.4-5.0); Alkaline Phosphatase 90 U/L (45-117); BUN Blood Urea Nitrogen 11 mg/dL (7-18); Bicarbonate 28 mmol/L (21-32); Bilirubin Total 4.4 mg/dL (0.2-1.0); Glucose Level 111 mg/dL (74-106); Magnesium 1.7 mg/dL (1.8-2.4); Potassium 3.7 mmol/L (3.5-5.1); Protein, Total 4.9 g/dL (6.4-8.2); Sodium Level 144 mmol/L (136-145)
[2020-12-11] MEDS ORDERED: FUROSEMIDE 20 MG/ 2ML VIAL IV ONE (12:41)
[2020-12-11] MEDS ORDERED: ALBUMIN HUMAN 25% 50 ML IV ONE (12:41)
[2020-12-11] MEDS: LACTULOSE 20 GM/30 ML UCUP PO SCH ×2 (13:35→20:44)
[2020-12-11] MEDS ORDERED: POTASSIUM 25 MEQ EFFERV TAB PO ONE (16:00)
[2020-12-11] MEDS ORDERED: MAGNESIUM SULFATE 1 gm IVPB 1 GM/100 ML BAG IV ONE (17:00)
[2020-12-11] MEDS ORDERED: NA CHLORIDE 0.9% 250 ML ONE (21:19)
[2020-12-12] MEDS ORDERED: DIAZEPAM 10 MG/2 ML INJ SYRINGE IV ONE (01:59)
[2020-12-12] MEDS ORDERED: DIAZEPAM 10 MG/2 ML INJ SYRINGE ONE (02:23)
[2020-12-12] MEDS: DEXTROSE 10%-WATER 500 ML IV SCH (02:53)
[2020-12-12 06:14] LABS: Hematocrit 26.8 % (36.0-45.0)
[2020-12-12] MEDS: CEFTRIAXONE/SWI 1gm 1 GM/10 ML SYR IV SCH (07:59)
[2020-12-12] MEDS: LACTULOSE 20 GM/30 ML UCUP PO SCH ×3 (07:59→21:26)
[2020-12-12] MEDS: THIAMINE 200 MG/2 ML INJ IVP SCH (07:59)
[2020-12-12] MEDS: PANTOPRAZOLE 40 MG INJ IVP SCH ×2 (07:59→21:27)
[2020-12-12] MEDS: SPIRONOLACTONE 100 MG TAB PO SCH (08:00)
[2020-12-12] MEDS: HEPARIN 5000 UNIT/ML 1 ML VIAL SQ SCH ×2 (08:00→21:27)
[2020-12-12] MEDS: FUROSEMIDE 20 MG/ 2ML VIAL IV SCH ×2 (08:00→16:05)
[2020-12-12 08:34] LABS: BUN Blood Urea Nitrogen 9 mg/dL (7-18); Bicarbonate 27 mmol/L (21-32); Glucose Level 110 mg/dL (74-106); Potassium 3.9 mmol/L (3.5-5.1); Sodium Level 144 mmol/L (136-145)
[2020-12-12 08:45] LABS: Magnesium 1.4 mg/dL (1.8-2.4)
[2020-12-12] MEDS ORDERED: Magnesium Sulfate 2gm IVPB 2 G/50 ML BAG IV ONE (08:46)
[2020-12-12] MEDS ORDERED: POTASSIUM 25 MEQ EFFERV TAB PO ONE (08:47)
[2020-12-12] MEDS: MORPHINE 2 MG/ML SYR IV PRN (09:31)
[2020-12-12] MEDS: FOLIC ACID 5 MG/ML VIAL IVP SCH (09:52)
[2020-12-12] MEDS: D10W 250 ML IV SCH ×3 (11:30→21:30)
--- NOTE | 2020-12-12 14:38 | P.PN ---
Subjective Date of Service: 12/12/20 Primary Care Provider: None Chief Complaint: Altered mental status Subjective: No new changes Physical Examination - Vital Signs Temperature: 98.1 F Blood Pressure: 155/80 Pulse: 109 Respirations: 16 Pulse Ox (%): 96 - Physical Exam General: Alert, Oriented x3 HEENT: Atraumatic, Normocephalic Respiratory: Clear to auscultation bilaterally Cardiovascular: No edema Gastrointestinal: Soft and benign Neurological: Normal speech, Normal strength at 5/5 x4 extr, Cranial nerves 3-12 intact External genitalia: No edema - Studies Medications List Reviewed: Yes Assessment And Plan - Plan 1.Hypernatremia-sodium is still better at 144 today. we will continue free water with D5W and monitor sodium level closely. 2.Hypocalcemia-calcium is 7.3 but corrected for hypoalbuminemia, she is normal at 9.5. we will monitor closely. 3.Hepatic encephalopathy-improving on lactulose. we will monitor. 4.Hypertension-we will continue to monitor her vitals and continue antihypertensive meds. 5.Decompensated liver cirrhosis with hypoalbuminemia-she does have significantly low albumin of 1.3. we will continue Iv lasix for diuresis and monitor volume status closely. urine output continues to be encouraging presently. 6. Hypomagnesemia- Magnesium is 1.4. we have repleted. we will monitor.
[2020-12-12] MEDS ORDERED: HYDROCODONE/APAP 10/325 TAB PO PRN (15:22)
[2020-12-12] MEDS ORDERED: MAGNESIUM SULFATE 1 gm IVPB 1 GM/100 ML BAG IV ONE (16:46)
[2020-12-12] MEDS ORDERED: HYDRALAZINE HCL 20 MG/ML VIAL IV PRN (22:14)
[2020-12-13] MEDS: D10W 250 ML IV SCH ×3 (00:47→12:22)
[2020-12-13 05:45] LABS: BUN Blood Urea Nitrogen 7 mg/dL (7-18); Bicarbonate 29 mmol/L (21-32); Glucose Level 122 mg/dL (74-106); Magnesium 1.5 mg/dL (1.8-2.4); Potassium 3.6 mmol/L (3.5-5.1); Sodium Level 142 mmol/L (136-145)
[2020-12-13] MEDS ORDERED: Magnesium Sulfate 2gm IVPB 2 G/50 ML BAG IV ONE (06:13)
--- NOTE | 2020-12-13 06:13 | P.PN ---
Subjective Date of Service: 12/13/20 Primary Care Provider: None Chief Complaint: Altered mental status Subjective: No new changes, No C/O voiced (Sleeping comfortably) Physical Examination - Vital Signs Temperature: 97.5 F Blood Pressure: 146/85 Pulse: 108 Respirations: 18 Pulse Ox (%): 95 - Physical Exam General: Alert, In no apparent distress, Oriented x3 HEENT: Atraumatic, Normocephalic, PERRLA Neck: Supple, 2+ carotid pulse no bruit, JVD not distended Respiratory: Clear to auscultation bilaterally, Normal air movement Gastrointestinal: Normal bowel sounds, Soft and benign, Non-distended Musculoskeletal: No clubbing, No swelling Integumentary: No rashes, No breakdown Neurological: Normal tone, Sensation intact - Studies Medications List Reviewed: Yes Assessment And Plan - Plan Acute kidney injury-improved Metabolic acidosis-controlled Hypomagnesemia-will replete today-magnesium sulfate 2 g Q 12 x 3 doses - follow repeat magnesium in a.m. # anemia-follow repeat H&H
[2020-12-13] MEDS ORDERED: POTASSIUM 25 MEQ EFFERV TAB PO ONE ×2 (06:14→09:00)
[2020-12-13] MEDS ORDERED: Magnesium Sulfate 2gm IVPB 2 G/50 ML BAG IV SCH ×2 (07:00→08:00)
[2020-12-13] MEDS: HEPARIN 5000 UNIT/ML 1 ML VIAL SQ SCH (07:54)
[2020-12-13] MEDS: FOLIC ACID 5 MG/ML VIAL IVP SCH (09:00)
[2020-12-13] MEDS: CEFTRIAXONE/SWI 1gm 1 GM/10 ML SYR IV SCH (09:23)
[2020-12-13] MEDS: THIAMINE 200 MG/2 ML INJ IVP SCH (09:23)
[2020-12-13] MEDS: SPIRONOLACTONE 100 MG TAB PO SCH (09:23)
[2020-12-13] MEDS: PANTOPRAZOLE 40 MG INJ IVP SCH (09:23)
[2020-12-13] MEDS: LACTULOSE 20 GM/30 ML UCUP PO SCH (09:24)
[2020-12-13] MEDS: FUROSEMIDE 20 MG/ 2ML VIAL IV SCH (09:24)
[2020-12-13] MEDS ORDERED: FOLIC ACID 1 MG in NA CHLORIDE 0.9% 50 ML IV SCH (10:00)
[2020-12-13 10:05] VITALS: O2SAT 94
[2020-12-13 12:07] VITALS: TEMP 98
[2020-12-13 12:11] VITALS: BP 130/80
--- NOTE | 2020-12-29 21:14 | P.PN ---
Date of Service: 12/10/20 Subjective Patient is waking up a little bit better. Patient denies any complaints. She yells out that she is hungry Review of Systems is unable to be obtained Physical Examination - Vital Signs reviewed - Physical Exam General: Confused Respiratory: Clear to auscultation bilaterally, Normal air movement Cardiovascular: Regular rate/rhythm, Normal S1 S2, No murmurs Gastrointestinal: Normal bowel sounds, Soft and benign, Mild abdominal distention Musculoskeletal: No clubbing, No swelling, No tenderness Neurological: Sensation intact, Cranial nerves 3-12 intact Assessment & Plan - Problems (Diagnosis) (1) Hepatic encephalopathy Current Visit: No Status: Acute (2) Lactic acidosis Current Visit: No Status: Acute (3) Liver cirrhosis Current Visit: No Status: Acute - Plan Plan: Continue with plan of care as mentioned below 1. Continue with lactulose. Lactulose 20 g p.o. every 6 hours along with rifaximin outpatient 2. Monitor mental status-neurochecks Q 6 3. Monitor labs closely; monitor ammonia 4. Repeat electrolytes 5. Spoke with significant other and he is hoping to take her home over the next 24-48 hours if she improves. 6. GI and DVT prophylaxis
--- NOTE | 2020-12-29 21:20 | P.PN ---
Date of Service: 12/11/20 Subjective Patient denies any new complaints. Patient continues to improve. More awake and alert. Will encourage her to get out of bed. Anticipate discharge next 24-48 hours. Review of Systems is unable to be obtained Physical Examination - Vital Signs reviewed - Physical Exam General: More awake and alert and following commands Respiratory: Clear to auscultation bilaterally, Normal air movement Cardiovascular: Regular rate/rhythm, Normal S1 S2, No murmurs Gastrointestinal: Normal bowel sounds, Soft and benign, Mild abdominal distention Musculoskeletal: No clubbing, No swelling, No tenderness Neurological: Sensation intact, Cranial nerves 3-12 intact Assessment & Plan - Problems (Diagnosis) (1) Hepatic encephalopathy Current Visit: No Status: Acute (2) Lactic acidosis Current Visit: No Status: Acute (3) Liver cirrhosis Current Visit: No Status: Acute - Plan Plan: Continue with plan of care as mentioned below 1. Continue with lactulose. Lactulose 20 g p.o. every 6 hours along with rifaximin outpatient 2. Monitor mental status-neurochecks Q 6 3. Monitor labs closely; monitor ammonia 4. Repeat electrolytes 5. Spoke with significant other and he is hoping to take her home over the next 24-48 hours if she improves. 6. GI and DVT prophylaxis
--- NOTE | 2020-12-29 21:27 | P.PN ---
Date of Service: 12/12/20 Subjective Much more awake and alert. Following commands. Anticipate patient to be discharged in the morning as she continues to improve. Review of Systems is unable to be obtained Physical Examination - Vital Signs reviewed - Physical Exam General: More awake and alert and following commands Respiratory: Clear to auscultation bilaterally, Normal air movement Cardiovascular: Regular rate/rhythm, Normal S1 S2, No murmurs Gastrointestinal: Normal bowel sounds, Soft and benign, Mild abdominal dis tention Musculoskeletal: No clubbing, No swelling, No tenderness Neurological: Sensation intact, Cranial nerves 3-12 intact Assessment & Plan - Problems (Diagnosis) (1) Hepatic encephalopathy Current Visit: No Status: Acute (2) Lactic acidosis Current Visit: No Status: Acute (3) Liver cirrhosis Current Visit: No Status: Acute - Plan Plan: Continue with plan of care as mentioned below 1. Patient continues to improve. Continue lactulose. 2. Monitor mental status-neurochecks Q 6 3. Labs were stable and ammonia level is stable 4. Encouraged out of bed and ambulation. 5. Patient's significant other to pick her up in the morning 6. GI and DVT prophylaxis
--- NOTE | 2020-12-29 21:40 | P.DS ---
Discharge Date: 12/13/20 Primary Care Provider: Mireya Disposition: ROUTINE DISCHARGE Discharge Condition: GOOD Reason for Admission: Altered mental status - Problems (1) Hepatic encephalopathy Status: Acute (2) Lactic acidosis Status: Acute (3) Liver cirrhosis Status: Acute Brief History of Present Illness: Patient is a 50-year-old female who came into the hospital with hepatic encephalopathy. She said recurrent admission and she has been noncompliant. She will be admitted for further evaluation. Hospital Course: Patient was started on lactulose. Patient was given lactulose enema because of altered mentation. Patient pneumonia improved but her mentation was still off for a couple of days and when she woke up she was very loud and yelling. We gave her lactulose and gentle hydration. Patient finally started waking up and following commands. She started getting out of bed and ambulating. Her significant other was with her and she has improved quite remarkably. Patient is clinically doing well. At this time, she is stable for discharge home. Vital Signs/Physical Exam: Temp Pulse Resp BP Pulse Ox 98 F 106 H 18 130/80 100 12/13/20 12:00 12/13/20 12:00 12/13/20 12:00 12/13/20 12:00 12/13/20 12:00 General: Alert, In no apparent distress, Oriented x3 Laboratory Data at Discharge: WBC 3.10 K/uL (4.3-10.9) L 12/11/20 11:13 Hgb 8.5 g/dL (12.0-15.0) L 12/12/20 05:51 Hct 26.8 % (36.0-45.0) L 12/12/20 05:51 Plt Count 40 K/uL (152-406) L* 12/11/20 11:13 PT 23.0 SECONDS (9.5-12.5) H 12/11/20 11:13 INR 1.99 12/11/20 11:13 APTT 40.2 SECONDS (24.3-36.9) H 12/11/20 11:13 Sodium 142 mmol/L (136-145) 12/13/20 05:15 Potassium 3.6 mmol/L (3.5-5.1) 12/13/20 05:15 BUN 7 mg/dL (7-18) 12/13/20 05:15 Creatinine 0.50 mg/dL (0.55-1.3) L 12/13/20 05:15 Glucose 122 mg/dL (74-106) H 12/13/20 05:15 Magnesium Cancelled 12/13/20 12:30 Total Bilirubin 4.4 mg/dL (0.2-1.0) H 12/11/20 11:13 AST 83 U/L (15-37) H 12/11/20 11:13 ALT 44 U/L (12-78) 12/11/20 11:13 Alkaline Phosphatase 90 U/L (45-117) 12/11/20 11:13 Home Medications: Furosemide 40 mg PO BID 06/24/20 Ciprofloxacin HCl 500 mg PO BID 7 Days #14 tablet 11/06/20 Lactulose 45 ml PO TID #4000 ml 11/06/20 Rifaximin [Xifaxan] 550 mg PO BID #60 11/24/20 Amlodipine [Norvasc*] 5 mg PO DAILY #30 tab 12/01/20 Spironolactone 1 tab PO DAILY 12/10/20 Physician Discharge Instructions: OK TO DC IV AND DC HOME FOLLOW-UP WITH PRIMARY CARE PROVIDER IN 1-2 WEEKS FOLLOW-UP WITH HEPATOLOGY IN 1-2 WEEKS RETURN TO THE ER IF SYMPTOMS WORSEN CALL or TEXT DR. CRISTINA AT [phone] IF ANY QUESTIONS REGARDING HOSPITAL STAY. PLEASE CALL THE FLOOR AT [phone] IF ANY MEDICATION OR NURSING QUESTIONS. Diet: Low sodium Activity: Fall precautions Followup: NONE,NONE [Primary Care Provider] - Time spent managing pt's care (in minutes): 35
== END 2020-12-13 12:20 | disposition home or self-care (01) | DRG 433 ==
LOC: ER 14:54 → ERHOLD 16:57 → 4TH 12-09 20:46
PROVIDERS: ADMIT Family Medicine; ATTEND Hospitalist
PROC: 30233N1 Transfusion of Nonautologous Red Blood Cells into Peripheral Vein, Percutaneous Approach (ICD-10-PCS; principal; 2020-12-11)
DX: K70.31 Alcoholic cirrhosis of liver with ascites (principal); E87.0 Hyperosmolality and hypernatremia; E87.2 Acidosis; N17.9 Acute kidney failure, unspecified; D63.8 Anemia in other chronic diseases classified elsewhere; E83.51 Hypocalcemia; D69.6 Thrombocytopenia, unspecified; E83.42 Hypomagnesemia; I10 Essential (primary) hypertension; K21.9 Gastro-esophageal reflux disease without esophagitis; K72.90 Hepatic failure, unspecified without coma; E16.2 Hypoglycemia, unspecified; Z88.0 Allergy status to penicillin; Z88.8 Allergy status to other drugs, medicaments and biological substances; Z79.899 Other long term (current) drug therapy; Z85.038 Personal history of other malignant neoplasm of large intestine; Z91.19 Patient's noncompliance with other medical treatment and regimen; Z91.14 Patient's other noncompliance with medication regimen; Z20.822 Contact with and (suspected) exposure to COVID-19
CPT/HCPCS: 36415; 36430; 51702; 70450; 80048; 80053; 80076; 80307; 82140; 82947; 83735; 84132; 84145; 85014; 85018; 85025; 85610; 85730; 86850; 86900; 86901; 87040; 87086; 87088; 87205; 96374; 96375; 99285; C9113; J0360; J0696; J1644; J1940; J2270; J2550; J3360; J3411; J3475; J3480; J7030; J7040; J7050; J7799; P9016; P9047; U0003

== ENCOUNTER 2020-12-22 04:59 | Inpatient (IN) | payer SELFPAY ==
--- OUTSIDE RECORDS SUMMARY | 2020-12-22 05:03 | XMS REPORT | Continuity of Care Document ---
:1970 Author Organization [facility] t Address [address] [place] [address] Care Team Providers Name Role Phone Gin [...] Expiration Date Sour ce Number AARON NOEL/AARON [id number] 2020 [facility] SHIELDBCBS PPO 00:00:00 - Medical POS EPO Center [id number], [place] [address]MVB Problems Condition Condition Condition Status Onset Resolution Last Treating Co mments Source Name Details Category Date Date Treatment Clinician Date Black Black Disease Active [facility] [place] Cirrhosis Cirrhosis Disease Active [facility] [place] Volume Volume Disease Active [facility] overload overload 10-24 [facility]: [facility] 00 [place] Allergies, Adverse Reactions, Alerts Allergy Allergy Status Severity Reaction(s) Onset Inactive Treating Comm ents Source Name Type Date Date Clinician Ondanset Drug Active Rash [facility] Hcl Allergy 10-22 [facility] - (Pf) 00:00: Medical 00 [place] Social History Social Habit Start Date Stop Date Quantity Comments Source Sex Assigned At [facility] Tobacco use and 2020-10-23 2020-10-23 Never used [facility] - exposure 00:00:00 00:00:00 [facility] Alcohol intake 2020-10-23 2020-10-23 Ex-drinker [facility] es - 00:00:00 00:00:00 (finding) [facility] Smoking Status Start Date Stop Date Source Current some day smoker 2020-10-23 00:00:00 [facility] Medications Ordered Filled Start Stop Current Ordering Indication Dosage Frequency Signature Comments Components Source Medication Medication Date Date Medication? Clinician (SIG) Name Name spironolact 2021- Yes 100mg QD Take [address] [facility] 10-25 tablet [facility] - (ALDACTONE) 00:00: 23:59 (100 mg Me dical 100 MG 00 :00 total) by Center tablet mouth daily. lactulose 2020- No 20g Q.[id number] Take [address] [facility] (CHRONULAC) 10-24 [id number] by mouth 3 [facility] - 10 gram/15 [...] (two) times daily. lactulose 2021- Yes 20g Q.[id number] Take [address] [facility] (CHRONULAC) 10-24 [id number] mLs (20 g [facility] - 10 gram/15 00:00: 23:59 3D total) by Sharmila grene mL (15 mL) 00 :00 mouth 3 [...] Source Systolic blood 2020-10-24 12:45:00 128 mm[Hg] [facility] Diastolic blood 2020-10-24 12:45:00 77 mm[Hg] [facility] Heart rate 2020-10-24 12:45:00 95 /min [facility] Body temperature 2020-10-24 12:45:00 36.78 Tamar [facility] Respiratory rate 2020-10-24 12:45:00 16 /min [facility] Oxygen saturation in 2020-10-24 12:45:00 99 /min [facility] Arterial blood by Medical Ce nter Pulse oximetry Body height 2020-10-22 18:07:00 162.6 cm [facility] Body weight 2020-10-22 18:07:00 88.14 kg [facility] BMI 2020-10-22 18:07:00 33.35 kg/m2 [facility] Procedures Procedure Date / Time Performed Performing Clinician Sour e US ABDOMEN LIMITED 2020-10-24 14:23:00 Merchant [facility] COMPREHENSIVE METABOLIC 2020-10-24 02:19:00 Eusebio Grace [facility] CBC W/PLT COUNT & AUTO 2020-10-24 02:19:00 Merchant [facility] PROTHROMBIN TIME/INR 2020-10-24 02:19:00 [facility] REPORT OF PROCEDURE - 2020-10-23 13:12:14 Ruth Toney I [facility] ENDOSCOPY [facility] UPPER ENDOSCOPY 2020-10-23 09:39:00 Ruth Toney [facility] MAGNESIUM 2020-10-23 05:15:00 Silvio Riggs [facility] COMPREHENSIVE METABOLIC 2020-10-23 05:15:00 Sanjay [facility] PROTHROMBIN TIME/INR 2020-10-23 05:14:00 Sanjay, [facility] HEPATITIS C PCR, 2020-10-23 05:14:00 Sanjay, [facility] QUANTITATIVE [facility] HEPATITIS C GENOTYPE 2020-10-23 05:14:00 Sanjay, [facility] HEPATITIS PANEL, ACUTE 2020-10-23 05:14:00 Sanjay, [facility] CHBSN-9-BLUJBNAZUTY\, 2020-10-23 05:14:00 Sanjay, [facility] ALPHA FETOPROTEIN (AFP), 2020-10-23 05:14:00 Sanjay, [facility] TUMOR MARKER [facility] CERULOPLASMIN 2020-10-23 05:14:00 Sanjay, [facility] FERRITIN 2020-10-23 05:14:00 Sanjay, [facility] IRON, TIBC, % SAT. 2020-10-23 05:14:00 Sanjay, [facility] (WITHOUT FERRITIN) [facility] B12 2020-10-23 05:14:00 Sanjay, [facility] FOLATE, SERUM 2020-10-23 05:14:00 Sanjay [facility] RETICULOCYTE COUNT 2020-10-23 05:14:00 Sanjay, [facility] ACTIN (SMOOTH MUSCLE) 2020-10-23 05:14:00 Sanjay, [facility] - ANTIBODY, IGG [facility] ANTI-NUCLEAR ANTIBODY 2020-10-23 05:14:00 Sanjay [facility] (LUCAS) [facility] ANTI-MITOCHONDRIAL AB, 2020-10-23 05:14:00 Sanjay, [facility] REFLEX TO TITER [facility] HEPATITIS B CORE 2020-10-23 05:14:00 Sanjay, [facility] - ANTIBODY, TOTAL [facility] HEPATITIS A ANTIBODY, IGG 2020-10-23 05:14:00 Eusebio Grace [facility] MITOCHONDRIAL AB SCREEN 2020-10-23 05:14:00 Sanjay [facility] MITOCHONDRIAL AB TITER 2020-10-23 05:14:00 [facility] & AUTO 2020-10-23 05:14:00 [facility] HEMOGLOBIN AND HEMATOCRIT 2020-10-23 05:14:00 [facility]BD[facility]INAL WITH DOPPLER 2020-10-22 21:15:00 [facility] URINALYSIS W/ REFLEX 2020-10-22 17:23:00 [facility] SARS-COV2/RT-PCR ([facility] & 2020-10-22 15:22:00 [facility] REF LABS) [facility] BLOOD CULTURE 2020-10-22 15:07:00 Merchant [facility] CBC W/PLT COUNT & AUTO 2020-10-22 14:07:00 Mandie Moon [facility] BASIC METABOLIC PANEL (7) 2020-10-22 14:07:00 Mandie Moon [facility] HEPATIC FUNCTION PANEL 2020-10-22 14:07:00 Sarai [facility] TROPONIN I 2020-10-22 14:07:[address] [facility] ECG 12-LEAD 2020-10-22 14:01:12 Unknown, Hl7 Doctor [facility] XR CHEST 1 VIEW 2020-10-22 13:46:[address] [facility] PORTABLE/BEDSIDE Medical Center REPORT OF PROCEDURE - 2020-10-22 00:00:00 Provider, [facility] - ENDOSCOPY SCAN Scanning [facility] Plan of Care Planned Activity Planned Date Details Comments Source Future Scheduled 2020-10-[address] [facility] - Test 00:00:00 (12+) [code = Medical Center DEPRESSION SCREENING (12+)] Future Scheduled 2020-06-17 INFLUENZA VACCINE (#1) [facility] 00:00:00 [code = INFLUENZA Medical Ce nter VACCINE (#1)] Future Scheduled 2018 SHINGLES VACCINES ([address] [facility] - Test 00:00:00 of 2) [code = SHINGLES Medic al Center VACCINES (1 of 2)] Future Scheduled [address] [facility] [facility] - Test 00:00:00 (procedure) [code = Medical Center 91906332] Future Scheduled [address] [facility] - Test 00:00:00 malignant neoplasm of Medica l Center cervix (procedure) [code = 340261469] Future Scheduled 1987 DTAP/TDAP/TD VACCINES [facility] - [...] Medica l Center breast (procedure) [code = 942230147] Future Scheduled [address] [facility] - Test 00:00:00 malignant neoplasm of Medica l Center colon (procedure) [code = 303732899] Encounters Start End Encounter Admission Attending Care Care Encounter Source Date/Time Date/Time Type Type Clinicians Facility Department ID 2020-10-13 2020-10-13 Patient Diane Fallon [id number] 00:00:00 00:00:00 Outreach Clem Pham [id number] Lu[place] 4.2.7.2.686 [id number] 2020-10-01 2020-10-03 [facility] Gera Kerens [facility] 1.2.840 .114 [id number] 14:36:00 10:48:00 Encounter Jordi Garcia [facility] 350.1.13 .10 Cristofer Baker [place] 4.2.7.2.686 [place] [id number] Hospital 109 ([facility]) 2020-09-29 2020-09-29 Patient Diaen Fallon [id number] 00:00:00 00:00:00 Outreach Clem Pham [id number] [place] 4.2.7.2.686 [id number] 2020-09-25 2020-09-25 Transition Dar Lynn [id number] 00:00:00 00:00:00 of Care Valerie Pham [id number] [place] 4.2.7.2.686 [id number] 2020-09-22 2020-09-24 [facility] Balta Nam [facility] 1.2.840. 114 [id number] 05:04:00 10:44:00 Encounter Andrea [facility] [id number] [place] 4.2.7.2.686 [place] [id number] Hospital 111 ([facility]) 2020-06-30 2020-06-30 Emergency [facility] [id number] 14:48:00 18:31:00 Hugo Means 350.1.13.10 [place] 4.2.7.2.686 [place] [id number] 2019-06-11 2019-06-11 Orders Doctor NARENDRA 1.2.840.114 [id number] 00:00:00 00:00:00 Only Unassigned, STAR 350.1.13.10 [place] [facility] 4.2.7.2.686 [id number] 2019-05-11 2019-05-11 Emergency [facility] [id number] 10:42:22 12:29:00 Marianne Means 350.1.13.10 [place] 4.2.7.2.686 [place] [id number] [id number] Results Test Description Test Time Test Comments Results Result Comments Source Hepatitis C genotype 2020-10-28 20:39:00 Test Item Value Reference Range Interpretation Comme nts HCV Genotype, 3 The method use d in this test is RT-PCR and LiPA (test code = reversehyb ridization (Line Probe) of the 5' 2988635) UTR and corereg ion of the HCV genome. The analytical perf ormance characteristics of thisassay have been determined by [facility]. The modifications h ave not beencleared or approved by the FDA. Thi s assay has beenvalidated pursuant to the CLIA regulations and isused for clinical pu rposes. For additional information, pl ease refer [email or web address] [email or web address] /faq/HCVGenotyp ing(This link id being provided for information al/educational purposes only.) MADDIE (test code = Performing Lab MADDIE) *QDID [employer] [facility] [address] [place] [address] Arnie Phillips MD [facility] (Smooth Muscle) Antibody, [id number] 01:39:00 Test Item Value Reference Interpretation Comments Range Anti-Smooth Muscle 23 U See Note: H Reference Range:<20 Ab (test code = NEGATI VE> OR ) = 20 POSITIVE Antibodies recognizing act in are the main componentof smo oth muscle antibodi es associated withautoimmune liver disease. Actin antibodie s arefound in approximately 7 5% of patients withautoimmune hepatitis (AIH) type 1, eyhardyvxoyzi59 % of patients with autoimmune cholangitis,mary bi mately 30% of patients with primary biliarycirrhosi s, and approximate ly 2% of healthy people.High barb ues are closely correlated with AIH type 1. MADDIE (test code = Performing Lab MADDIE) EZ [facility] [employer] [facility] [address] [place] [address] Wilder Ochoa MD, PhD, BEATRICE Lab Interpretation Abnormal (test code = 90000-5) [facility] - Routine (Right Venipuncture) 2020-10-27 18:00:00 Test Item Value Reference Range Interpretation Comments Result (test code = No growth in 5 days 6463-4) [facility]aBLOOD [id number] 18:00:00 Test Item Value Reference Range Interpretation Comments CULTURE (BEAKER) (test No growth in 5 days code = 1095) ANTI-MITOCHONDRIAL AB, REFLEX TO [id number] 10:14:00 Test Item Value Reference Range Interpretation Comments SCAN RESULT (test code = 8939090) Anti-Mitochondrial Ab, reflex to [id number] 10:14:00Scan ResultQUEST DIAGNOSTIC INCORPORATEDCommunity Hospital of GardenaMitochondrial Ab Screen 2020-10-25 12:18:00 Test Item Value Reference Range Interpretation Comments Anti-Mitocho NEGATIVE NEGATIVE This test was developed nd Abs (test and its analyti vasile code = performance 3779505) characteristics havebeen determined by [facility].It h as not been cleared or approved by FDA. This as say has been validatedp ursuant to the CLIA reg ulations and is used for clinical purposes. MADDIE (test Performing Lab code = MADDIE) EZ [employer] [facility] [address] [place] [address] Wilder Ochoa MD, PhD, BEATRICE [facility]aMitochondrial Ab [id number] 12:18:00 Test Item Value Reference Range Interpretation Comments Mitochondrial Ab TNP See_Comment Test Not Titer (test code = Performed . 9141910) Screening test Negative or Not Detected. Titer notperformed. [Automated message] The system which generated this result transmitted reference range : <1:20. The reference range was not used to interpret this result as normal/abnormal . MADDIE (test code = Performing Lab MADDIE) EZ [employer] [facility] [address] [place] [address] Wilder Ochoa MD, PhD, BEATRICE [facility] GardenaCeruloplasmin2021-01-09 11:45:00 Test Item Value Reference Range Interpretation Comments Ceruloplasmin (test code 27 mg/dL 18-53 = 20191208) MADDIE (test code = MADDIE) Performing Lab *BARB [employer] [facility] [address] [place] [address] Antonieta Small MD [facility]aHepatitis C PCR, [id number] 22:54:00 Test Item Value Reference Range Interpretation Comments HCV PCR, Quantitative 909524 See_Comment H [Auto mated (test code = 42790-9) messag e] The system which generated this result transmitted reference range : <15 IU/mL. The reference range was not used to interpret this result as normal/abnormal . MADDIE (test code = MADDIE) This test uses a Real-Time Polymerase Chain Reaction (RT-PCR) methodology and was performed using MARIXA Ampliprep/MARIXA TaqMan HCV test kit version 2.0 ([employer]). Reportable range for this assay is 15 - 100,000,000 IU per mL (1.18 - 8.00 Log IU/mL). Lab Interpretation Abnormal (test code = 03662-2) [facility]aHEPATITIS C PCR, [id number] 22:54:00 Test Item Value Reference Range Interpretation Comments HCV NUMERIC RESULT (BEAKER) 807181 IU/mL <15 H (test code = 2700) This test uses a Real-Time Polymerase Chain Reaction (RT-PCR) methodology and was performed using [employer] Ampliprep/MARIXA TaqMan HCV test kit version 2.0 ([employer]).Reportable range for this assay is 15 - 100,000,000 IU per mL (1.18 - 8.00 Log IU/mL).U/S, ABDOMINAL, [id number] 17:32:00Labs to be ordered:->Body Fluid Culture (w/Gram Stain, C\T\S) Labs to be ordered:->Cell Count Labs to be ordered:->Glucose+LDH+Protein Labs to be ordered:->Cytology Reason for exam:->diagnostic para for new ascites in pt w/ cirrhosisVA GREATER LOS [facility]Name: DWAIN ESPINOSA : 1970 Sex: FFINAL REPORT Limited abdominal ultrasound CLINICAL HISTORY: Ascites F INDINGS: A limited abdominal ultrasound was performed and only a trace amount of fluid was seen. Therefore a paracentesis was not performed. Signed: Alex Gonzalez Verified Date/Time: 10/24/2020 17:32:34 Reading Location: [address] Ultrasound Reading Room US abdomen [id number] 17:32:00Interface, External Ris In - 10/24/2020 5:34 PM CSTFINAL REPORT Limited abdominal ultrasound CLINICAL HISTORY: Ascites FINDINGS: A limited abdominal ultrasound was performed and only a trace amount of fluid was seen. Therefore a paracentesis was not performed. Signed: Alex Gonzalez Verified Date/Time: 10/24/2020 17:32:34 Reading Location: [address] Ultrasound Reading Room [facility] 2020-10-24 03:23:00 Test Item Value Reference Range Interpretation Comments Protein, Total (test 4.7 See_Comment L [Autom ated code = 2885-2) message] The system which generated this result transmitted reference range : 6.0 - 8.3 gm/dL . The reference range was not used to interpr et this result as normal/abnormal . Albumin (test code = 1.7 g/dL 3.5-5 L 25745-9) Alkaline Phosphatase 114 U/L 40-150 (test code = 6768-6) Total Bilirubin (test 3.0 mg/dL 0.2-1.2 H code = 1975-2) Sodium (test code = 139 meq/L 463-217 4691-2) Potassium (test code 3.2 meq/L 3.5-5.1 L = 2823-3) Chloride (test code = 106 meq/L 98-107 5-0) CO2 (test code = 27 meq/L 22-29 2027-) BUN (test code = 12 mg/dL 7- 3094-0) Creatinine (test code 0.78 mg/dL 0.57-1.25 = 2160-0) Glucose (test code = 127 mg/dL 70-105 H 2345-7) Calcium (test code = 7.0 mg/dL 8.4-10.2 L 71199-3) AST (test code = 114 U/L 5-34 H 1920-8) ALT (test code = 58 U/L 6-55 H 1742-6) EGFR (test code = 78 mL/min/1.73 [place] [address]-0) NOT ACCURATE CREATININE CLEARANCE IN PREDICTING GLOMERULAR FILTRATION RATE . ESTIMATED GFR I S NOT APPLICABLE FOR DIALYSIS PATIENTS. MADDIE (test code = MADDIE) [employer] Furn[employer] Operator ID - ANANDA TAVAREZpecimepamela slightly icteric Lab Interpretation Abnormal (test code = 35152-7) [facility]aCOMPREHENSIVE METABOLIC [id number] 03:23:00 Test Item Value Reference Range Interpretation [...] S NOT APPLICABLE FOR DIALYSIS PATIEN TS. [employer]beratory Furnace Operator ID - PIAYA LSpecimen slightly ictericProthrombin time/[id number] 03:08:00 Test Item Value Reference Interpretation Comments [...] valves. Lab Interpretation Abnormal (test code = 79011-1) [facility] GardenaPROTHROMBIN TIME/[id number] 03:08:00 Test Item Value Reference Range Interpretation [...] heart valves.CBC with platelet count + automated [id number] 02:45:00 Test Item Value Reference Range Interpretation Comments WBC (test code = 6690-2) 5.3 See_Comment [A utomated message] The system AtTask generated this result transmitted ref erence range: 3.5 - 10 .5 K/L. The refe rence range was not u sed to interpret this result as normal/abnor mal. RBC (test code = 789-8) 3.40 See_Comment L [Au tomated message] The system [employer] generated this result transmitted ref erence range: 3.93 - 5 .22 M/L. The refe rence range was not u sed to interpret this result as normal/abnor mal. MCHC (test code = 786-4) 30.3 See_Comment L [A utomated message] The system [employer] generated this result transmitted ref erence range: [...] L [Aut omated message] 777-3) The system [employer] generated this result transmitted ref erence range: 150 - 45 0 K/CU MM. The referen ce range was not u sed to interpret this result as normal/abnor mal. MPV (test code = 13.0 fL 9.4-12.3 H 33806-9) nRBC (test code = 413) 0 See_Comment [Aut omated message] The system [employer] generated this result transmitted ref erence range: [...] See_Comment [Aut omated message] 670) The system At[employer] generated this result transmitted ref erence range: 1.56 - 6 .13 K/L. The refe rence range was not u sed to interpret this result as normal/abnor mal. # Lymphs (test code = 1.81 See_Comment [Auto mated message] 414) The system [employer] generated this result transmitted ref erence range: 1.18 - 3 .74 K/L. The refe rence range was not u sed to interpret this result as normal/abnor mal. # Monos (test code = 0.54 See_Comment H [Autom ated message] 415) The system [employer] generated this result transmitted ref erence range: 0.24 - 0 .36 K/L. The refe rence range was not u sed to interpret this result as normal/abnor mal. # Eos (test code = 416) 0.14 See_Comment [Au tomated message] The system [employer] generated this result transmitted ref erence range: 0.04 - 0 .36 K/L. The refe rence range was not u sed to interpret this result as normal/abnor mal. # Baso (test code = 417) 0.05 See_Comment [A utomated message] The system At[employer] generated this result transmitted ref erence range: 0.01 - 0 .08 K/L. The refe rence range was not u sed to interpret this result as normal/abnor mal. Immature 0 % 0-1 Granulocytes-Relative (test code = 2801) Lab Interpretation (test Abnormal code = 77679-5) [facility] W/PLT COUNT & AUTO [id number] 02:45:00 Test Item Value Reference Range Interpretation [...] (BEAKER) (test code = 2801) ECG 12 [id number] 15:18:12Interface, External Ris In - 10/23/2020 3:18 PM CSTVentricular Rate 83 BPMAtrial Rate 83 BPMP-R Interval 110 msQRS Duration 76 msQ-T Interval 432 msQTC Calculation(Bazett) 507 msP [place] 61 degreesR [place] 28 degreesT [place] 34 degreesSinus rhythm with short PRLow voltage QRSProlonged QTAbnormal ECGNo previous ECGs availableConfirmed by MD Farnsworth Roberto ([id number]) on 10/23/2020 3:18:11 [facility] HospitalFerritin2021-[facility] 12:56:00 Test Item Value Reference Range Interpretation Comments Ferritin (test code = 71.00 ng/mL 5-275 2276-4) MADDIE (test code = MADDIE) R[employer]atory Furnace Operator ID - AAHAMID Lab Interpretation (test Normal code = 25578-5) [facility] GardenaFolate, [id number] 12:56:00 Test Item Value Reference Range Interpretation Comments Folate (test code = 12.30 ng/mL See_Comment [Automa joseph 2284-8) message] The system which generated this result transmit joseph reference range : >=7.00. The reference range was not used to interpret this result as normal/abnormal . MADDIE (test code = MADDIE) [employer]atory Furnace Operator ID - AAHAMID Lab Interpretation Normal (test code = 39511-3) [facility] GardenaFERRITIN2021-01-07 12:56:00 Test Item Value Reference Range Interpretation Comments FERRITIN (BEAKER) (test code = 71.00 ng/mL 5.00-275.00 361) R[employer]beratory Furnace Operator [facility], [id number] 12:56:00 Test Item Value Reference Range Interpretation Comments FOLATE (BEAKER) (test code = 362) 12.30 ng/mL >=7.00 R[employer]atory Furnace Operator ID - AAHAMIDAnti-Nuclear Antibody (LUCAS)2020-10-23 10:30:00 Test Item Value Reference Range Interpretation Comments LUCAS (test code = 80266-4) Negative Negative MADDIE (test code = MADDIE) Test performed by IFA method.Test performed by IFA method. Lab Interpretation (test Normal code = 20614-2) [facility]aANTI-NUCLEAR ANTIBODY (LUCAS)2020-10-23 10:30:00 Test Item Value Reference Range Interpretation Comments ANTI-NUCLEAR ANTIBODY (LUCAS) (BEAKER) Negative Negative (test code = 418) Test performed by IFA method.Test performed by IFA method.Hepatitis panel, acute 2020-10-23 10:06:00 Test Item Value Reference Range Interpretation Comments Hep A IgM (test code = Nonreactive Nonreactive 36801-0) Hep B C IgM (test code = Nonreactive Nonreactive 24045-5) Hepatitis C Ab (test Reactive Nonreactive A code = 86597-2) HBsAg Screen (test code Nonreactive Nonreactive = 5195-3) MADDIE (test code = MADDIE) R[employer]atory Furnace Operator ID - HOUSTON M Lab Interpretation (test Abnormal code = 49278-5) [facility]aHEPATITIS PANEL, [id number] 10:06:00 Test Item Value Reference Range Interpretation Comments HEPATITIS A IGM ANTIBODY (BEAKER) Nonreactive Nonreactive (test code = 498) HEPATITIS B CORE IGM ANTIBODY Nonreactive Nonreactive (BEAKER) (test code = 645) HEPATITIS C ANTIBODY (BEAKER) Reactive Nonreactive A (test code = 367) HEPATITIS B SURFACE ANTIGEN (2) Nonreactive Nonreactive (BEAKER) (test code = 2585) [employer]atory Furn[employer] Operator RIGOBERTO - [place]ST[place] MVitamin [id number] 09:44:00 Test Item Value Reference Range Interpretation Comments Vitamin B12 (test code = 1494 pg/mL 213-816 H 2132-9) MADDIE (test code = MADDIE) R[employer]atory Furnace Operator ID - [place] M Lab Interpretation (test Abnormal code = 75127-8) [facility]ITAMIN [id number] 09:44:00 Test Item Value Reference Range Interpretation Comments VITAMIN B12 (BEAKER) (test code = 1494 pg/mL 213-816 H 774) [employer]atory Furn[employer] Operator RIGOBERTO CONRAD MAlpha fetoprotein (AFP), tumor [id number] 08:27:00 Test Item Value Reference Range Interpretation Comments Alpha-Fetoprotein <2.0 See_Comment [Automate d (test code = 1834-1) message ] The system which generated this result transmit joseph reference range : <10.0 ng/mL. Th e reference range was not used to interpret this result as normal/abnormal . MADDIE (test code = MADDIE) [employer] Operator ID - [place] M Lab Interpretation Normal (test code = 66883-4) [facility]AFP[facility] TUMOR [id number] 08:27:00 Test Item Value Reference Range Interpretation Comments ALPHA-FETOPROTEIN (BEAKER) (test code < ng/mL <10.0 = 1094) [employer] Furn[employer] Operator ID - [place] MHepatitis A antibody, [id number] 07:42:00 Test Item Value Reference Range Interpretation Comments Hep A IgG (test code = Reactive Nonreactive A 86300-5) MADDIE (test code = MADDIE) [employer] Operator ID - [place] M Lab Interpretation (test Abnormal code = 67163-0) [facility], [id number] 07:42:00 Test Item Value Reference Range Interpretation Comments HEPATITIS A IGG ANTIBODY (BEAKER) Reactive Nonreactive A (test code = 2797) [employer] Operator ID - [place] MCOMPREHENSIVE METABOLIC [id number] 07:41:00 Test Item Value Reference Range Interpretation [...] S NOT APPLICABLE FOR DIALYSIS PATIEN TS. [employer] Operator ID - [place] MSpecimen slightly [id number] 07:11:00 Test Item Value Reference Range Interpretation Comments Magnesium (test code = 1.8 mg/dL 1.6-2.6 41214-7) MADDIE (test code = MADDIE) [employer] Operator RIGOBERTO CONRAD M Lab Interpretation (test Normal code = 54804-6) [facility]07 07:11:00 Test Item Value Reference Range Interpretation Comments MAGNESIUM (BEAKER) (test code = 1.8 mg/dL 1.6-2.6 627) [employer] Operator RIGOBERTO CONRAD MHepatitis B core antibody, [id number] 07:01:00 Test Item Value Reference Range Interpretation Comments Hep B Core Total Ab Nonreactive Nonreactive (test code = 34979-1) MADDIE (test code = MADDIE) [employer] Operator RIGOBERTO Doll Lab Interpretation (test Normal code = 67662-1) [facility] CORE ANTIBODY, [id number] 07:01:00 Test Item Value Reference Range Interpretation Comments HEPATITIS B CORE TOTAL ANTIBODY Nonreactive Nonreactive (BEAKER) (test code = 497) [employer] Operator RIGOBERTO CONRAD Rosa M, TIBC, % sat. (without ferritin)2020-10-23 06:37:00 Test Item Value Reference Range Interpretation Comments Iron (test code = 2498-4) 129.0 ug/dL 40-160 TIBC (test code = 2500-7) 178 ug/dL 250-450 L Iron % Saturation (test 72 % 20-55 H code = 2502-3) MADDIE (test code = MADDIE) [employer] Furn[employer] Operator ID Bridger Doll Lab Interpretation (test Abnormal code = 70967-8) [facility], TIBC, % SAT. (WITHOUT FERRITIN)2020-10-23 06:37:00 Test Item Value Reference Range Interpretation Comments IRON (BEAKER) (test code = 547) 129.0 ug/dL 40.0-160.0 TOTAL IRON BINDING CAPACITY 178 ug/dL 250-450 L (BEAKER) (test code = 769) IRON % SATURATION (2) (BEAKER) 72 % 20-55 H (test code = 2590) [employer] Operator ID - [place] [id number]-2-[id number] 06:36:00 Test Item Value Reference Range Interpretation Comments A-1 Antitrypsin (test code 102.40 mg/dL 90-200 = 1825-9) MADDIE (test code = MADDIE) [employer] Furn[employer] Operator ID - [place] M Lab Interpretation (test Normal code = 09492-7) [facility]-1-[id number] 06:36:00 Test Item Value Reference Range Interpretation Comments ALPHA-1 ANTITRYPSIN (BEAKER) 102.40 mg/dL 90.00-200.00 (test code = 502) [employer] Furn[employer] Operator ID - [place] MPROTHROMBIN TIME/[id number] 06:21:00 Test Item Value Reference Range Interpretation [...] is2.5-3.5 for patients wiht mechanical heart valves.Reticulocyte [id number] 05:50:00 Test Item Value Reference Range Interpretation Comments % Retic (test code = 4.6 % 0.5-1.7 H 77176-6) MADDIE (test code = MADDIE) R[employer]atory Furnace Operator ID - [id number] Lab Interpretation (test Abnormal code = 16556-1) [facility]ICULOC[facility]TE [id number] 05:50:00 Test Item Value Reference Range Interpretation Comments RETICULOCYTE COUNT PCT (BEAKER) (test 4.6 % 0.5-1.7 H code = 575) R[employer]atory Furnace Operator ID - 6000Hemoglobin and [id number] 05:49:00 Test Item Value Reference Range Interpretation Comments Hemoglobin (test code = 9.0 See_Comment L [Au tomated message] 786-4) The system [employer] generated this result transmitted ref erence range: 11.2 - 1 5.7 GM/DL. The refe rence range was not u sed to interpret this result as normal/abnor mal. Hematocrit (test code = 30.0 % 34.1-44.9 L 4544-3) Lab Interpretation (test Abnormal code = 81719-8) [facility]aHEMOGLOBIN AND [id number] 05:49:00 Test Item Value Reference Range Interpretation Comments HEMOGLOBIN (BEAKER) (test code = 9.0 GM/DL 11.2-15.7 L 410) HEMATOCRIT (BEAKER) (test code = 30.0 % 34.1-44.9 L 411) CBC W/PLT COUNT & AUTO [id number] 05:49:00 Test Item Value Reference Range Interpretation [...] (test code = 2801) U/S, ABDOMINAL, WITH [id number] 21:58:00Reason for exam:->ascites, cirrhosisL[facility] ESP[facility]OS[facility] : 1970 Sex: FFINAL [...] Verified Date/Time: 10/22/2020 21:58:54 US abdominal with [id number] 21:58:00Interface, External Ris In - 10/23/2020 2:18 [...] Mila Richardson MDReport Verified Date/Time: 10/22/2020 21:58:54 [facility]2020-10-22 20:15:00 Test Item Value Reference Range Interpretation Comments SARS-COV2/RT-PCR Negative Not Detected, (test code = Negative, See 63332-7) external report for linked test SARS-COV-2 [facility] PERFORMING LAB (test code = 14774-1) MADDIE (test code = Negative result for [...] of the Act. Fact Sheet for Healthcare Providers:https://www.[employer]/sites/default/f christina/product/documents/F act_Sheet_HC_Providers_L nod_ZBDQ-RnF-6.pdf Fact Sheet for Healthcare Patients:https://www.[employer]/sites/default/fi les/product/documents/Fa ct_Sheet_Patients_Lyra_S ARS-CoV-2.pdf Performing Laboratory:[facility], [place] [address] [place], [place] [address]ARS-COV2/RT-PCR ([facility])2020-10-22 20:15:00 Test Item Value Reference Range Interpretation Comments SARS-COV2/RT-PCR (test Negative Not Detected, Negative, code = 3859431) See external report for linked test SARS-COV-[address] [facility] (test code = 8993029) Negative result for this test determines that [...] 564(g) of the Act.Fact Sheet for Healthcare Providers:https://www.[employer].Lala/sites/default/files/product/documents/Fact_Shee z_YF_Pcbckhmao_Zocx_YUFL-LuS-4.pdfFact Sheet for Healthcare Patients:https://www.[employer]ala/sites/default/files/product/ documents/Frye_Gyaov_Xmiheoxv_Odhx_VXHM-SeK-8.pdfPerforming Laboratory:[facility], [place] [address]Ekrbfwdwgb w/Microscopic + Reflex to [id number] 17:46:00 Test Item Value Reference Range Interpretation Comments Color, UA (test code Yellow = 5778-6) Clarity, UA (test Hazy code = 5767-9) Specific [place], UA 1.024 1.001-1.035 (test code = 5811-5) pH, UA (test code = 5.5 5.0-8.0 5803-2) Protein, UA (test 20 mg/dL Negative A code = 51440-7) Glucose, UA (test Negative Negative code = 365) Ketones, UA (test Negative Negative code = 2514-8) Bilirubin, UA (test Negative Negative code = 76310-3) Blood, UA (test code Small Negative A = 06173-3) Nitrite, UA (test Negative Negative code = 5802-4) Leukocytes, UA (test Negative Negative code = 5799-2) Urobilinogen, UA 0.2 mg/dL 0.2-1 (test code = 49196-3) RBC, UA (test code = 1 See_Comment [Autom ated 00827-4) message] The system which generated this result [...] 9 See_Comment [Automate d (test code = 68489-0) messag e] The system which generated this result transmit joseph reference range : /HPF. The reference range was not used to interpret this result as normal/abnormal . Specimen Source (test code = 2795) MADDIE (test code = MADDIE) R[employer]atory Furnace Operator ID - tech Lab Interpretation Abnormal (test code = 36596-7) [facility]/ REFLEX URINE [id number] 17:46:00 Test Item Value Reference Range Interpretation [...] = 516) SOURCE(BEAKER) (test code = 2795) Reverberatory Furnace Operator ID - techRAD, CHEST, 1 VIEW, NON [id number] 15:35:00Reason for exam:->abd painShould this be performed at the bedside?->Yes [facility] D[facility] MOJICA : 1970 Sex: FFINAL REPORT CHEST AP PORTABLE History provided: Abdominal pain Heart size magnified by projection. Lungs grossly clear and vascularity normal. Signed: Huang Garcia Verified Date/Time: 10/22/2020 15:35:51 Reading Location: [facility] Radiology Reading Room XR chest 1 view portable / [id number] 15:35:00Interface, External Ris In - 10/22/2020 3:38 PM CSTFINAL REPORT CHEST AP PORTABLE History provided: Abdominal pain Heart size magnified by projection. Lungs grossly clear and vascularity normal. Signed: Huang Garcia Verified Date/Time: 10/22/2020 15:35:51 Reading Location: [facility] Radiology Reading Room [facility] I (not available at [facility])2020-10-22 14:52:00 Test Item Value Reference Range Interpretation Comments Troponin I (test code = 0.01 ng/mL 0-0.03 97361-7) MADDIE (test code = MADDIE) Troponin I [...] ADMIN Lab Interpretation (test Normal code = 71831-0) [facility] [id number] 14:52:00 Test Item Value Reference Range Interpretation [...] failure, acidosis, acute neurological disease, and persistent tachyarrhythmia.Reverberatory Furnace Operator ID - ADMINBasic metabolic panel (Na, K+, Cl, CO2, Glu, Ca, BUN, Cr)2020-10-22 14:48:00 Test Item Value Reference Range Interpretation Comments Sodium (test code = 141 meq/L 073-969 5284-2) Potassium (test code 3.1 meq/L 3.5-5.1 L = 2823-3) Chloride (test code 107 meq/L 98-107 = 2075-0) CO2 (test code = 30 meq/L 22-29 H 2027-) BUN (test code = 12 mg/dL 7-21 3094-0) Creatinine (test 0.65 mg/dL 0.57-1.25 code = 2160-0) Glucose (test code = 90 mg/dL 70-105 2345-7) Calcium (test code = 7.0 mg/dL 8.4-10.2 L 24725-6) EGFR (test code = 96 mL/min/1.73 [place] [address]-5) m NOT ACCURATE CREATININE CLEARANCE IN PREDICTING GLOMERULAR FILTRATION RATE . ESTIMATED GFR I S NOT APPLICABLE FOR DIALYSIS PATIENTS. MADDIE (test code = Reverberatory Furnace Operator ID - MADDIE) ADMINSpecimen slightly icteric Lab Interpretation Abnormal (test code = 49932-2) [facility] [id number] 14:48:00 Test Item Value Reference Range Interpretation Comments Protein, Total (test 4.6 See_Comment L [Autom ated code = 2885-2) message] The system which generated this result transmitted reference range : 6.0 - 8.3 gm/dL . The reference range was not used to interpret this result as normal/abnormal . Albumin (test code = 1.7 g/dL 3.5-5 L 44359-6) Total Bilirubin 3.5 mg/dL 0.2-1.2 H (test code = 1975-2) Bilirubin, Direct 1.7 mg/dL 0.1-0.5 H (test code = 1968-7) Alkaline Phosphatase 106 U/L 40-150 (test code = 6768-6) AST (test code = 132 U/L 5-34 H 1920-8) ALT (test code = 61 U/L 6-55 H 1742-6) MADDIE (test code = Reverberatory Furnace Operator ID - MADDIE) ADMINSpecimen slightly icteric Lab Interpretation Abnormal (test code = 72332-2) [facility] METABOLIC [id number] 14:48:00 Test Item Value Reference Range Interpretation [...] S NOT APPLICABLE FOR DIALYSIS PATIEN TS. Reverberatory Furnace Operator ID - ADMINSpecimen slightly ictericHEPATIC FUNCTION [id number] 14:48:00 Test Item Value Reference Range Interpretation [...] code = 61 U/L 6-55 H 347) R[employer]beratory Furnace Operator ID - ADMINSpecimen slightly ictericCBC W/PLT COUNT & AUTO [id number] 14:28:00 Test Item Value Reference Range Interpretation [...] 0-1 PERCENT (BEAKER) (test code = 2801) [id number] 00:00:00Ordered by an unspecified provider.[facility]
[2020-12-22 05:33] LABS: Absolute Lymphocytes (CBC) 1.1 K/uL (0.7-4.9); Basophils % 0.3 % (0-1.3); Hematocrit 25.9 % (36.0-45.0); Lymphocytes % 23.5 % (15.3-44.8); MPV 8.8 fL (7.6-11.3); RBC Red Blood Cell Count 2.93 M/uL (3.86-4.86)
[2020-12-22] MEDS ORDERED: D5 0.45 NS 1,000 ML IV ONE (05:45)
[2020-12-22 05:49] LABS: Protime INR 1.99
[2020-12-22 05:55] LABS: Barbiturates NEGATIVE (NEGATIVE); Benzodiazepines NEGATIVE (NEGATIVE); Cocaine NEGATIVE (NEGATIVE); METHAMPHETAM POSITIVE (NEGATIVE); Methadone NEGATIVE (NEGATIVE); Opiates NEGATIVE (NEGATIVE); Phencyclidine NEGATIVE (NEGATIVE); THC Cannibis NEGATIVE (NEGATIVE)
[2020-12-22 05:57] LABS: ALT/SGPT 42 U/L (12-78); AST/SGOT 81 U/L (15-37); Albumin 2.2 g/dL (3.4-5.0); Alkaline Phosphatase 114 U/L (45-117); BUN Blood Urea Nitrogen 10 mg/dL (7-18); Bicarbonate 27 mmol/L (21-32); Bilirubin Direct 3.4 mg/dL (0-0.2); Glucose Level 72 mg/dL (74-106); Magnesium 1.7 mg/dL (1.8-2.4); NT PRO-BNP 569 pg/mL (<125); Potassium 3.6 mmol/L (3.5-5.1); Protein, Total 5.1 g/dL (6.4-8.2); Sodium Level 147 mmol/L (136-145); Troponin (Emerg Dept Use Only) < 0.02 ng/mL (0.0-0.045)
[2020-12-22 06:01] LABS: Bilirubin Total 6.9 mg/dL (0.2-1.0)
[2020-12-22 06:19] LABS: Urine Blood 2+ (NEG); Urine Glucose NEGATIVE (NEG); Urine Protein 2+ (NEG)
[2020-12-22] MEDS ORDERED: LACTULOSE 20 GM/30 ML UCUP ONE (06:22)
[2020-12-22] MEDS ORDERED: NACL 0.9% IRR SOLN 0 ML IRR ONE (06:23)
[2020-12-22] MEDS ORDERED: NA CHLORIDE 0.9% 1,000 ML ONE (06:27)
--- NOTE | 2020-12-22 06:55 | ER ---
Nurse's Notes [facility] Name: Lorena Hansen Age: 50 yrs Sex: Female : 1970 Arrival Date: 12/22/2020 Time: 05:05 Bed 15 Private MD: Diagnosis: Hepatic Encephalopathy Presentation: 12/22 05:05 Chief complaint: EMS states: a friend and ex called for her as she was mg2 unresponsive but was breathing. Coronavirus screen: Client denies travel out of the [place] in the last 14 days. unable to obtain. Ebola Screen: No symptoms or risks identified at this time. Initial Sepsis Screen: Does the patient meet any 2 criteria? Altered Mental Status. Does the patient have a suspected source of infection?. Risk Assessment: Do you want to hurt yourself or someone else? Patient reports no desire to harm self or others. Onset of symptoms was December 22, 2020. 05:05 Method Of Arrival: EMS: [facility] 05:05 Acuity: SUDHA 2 mg2 Triage Assessment: 05:36 General: Appears unkempt, Behavior is responsive to pain. EENT: No signs and/or mg2 symptoms were reported regarding the EENT system. Neuro: Level of Consciousness is stuporous. Cardiovascular: Capillary refill is sluggish. Respiratory: Airway is patent Respiratory effort is even, unlabored, Respiratory pattern is regular, symmetrical. GI: No signs and/or symptoms were reported involving the gastrointestinal system. : No signs and/or symptoms were reported regarding the genitourinary system. Derm: Skin is intact. Musculoskeletal: Capillary refill < 3 seconds, Swelling present in face, right arm, left arm, right leg and left leg. Historical: - Allergies: 05:36 PENICILLINS; mg2 05:36 Zofran; mg2 - Home Meds: 05:36 Lactulose Oral [Active]; mg2 - PMHx: 05:36 Cirrhosis; COLON CA; mg2 - PSHx: 05:36 Unable to obtain; mg2 - Immunization history:: Flu vaccine status is unknown. - Social history:: Smoking status: unknown. Screenin:40 Abuse screen: Denies threats or abuse. Denies injuries from another. Nutritional rr5 screening: No deficits noted. Tuberculosis screening: No symptoms or risk factors identified. Fall Risk IV access (20 points). Mental Status- Overestimates/Forgets Limitations (15 pts.). Total Carr Fall Scale indicates Low Risk Score (25-44 pts). Fall prevention measures have been instituted. Side Rails Up X 2 Placed close to Nursing Station Frequent Obs/Assesments occuring As available Patient and Family Educated on Fall Prevention Program and strategies. 05:40 Abuse screen: Denies threats or abuse. Denies injuries from another. Nutritional mg2 screening: No deficits noted. Tuberculosis screening: No symptoms or risk factors identified. Fall Risk Secondary diagnosis (15 points) AMS. IV access (20 points). Assessment: 05:35 Reassessment: cervical collar not available in the whole hospitalo. mg2 05:39 Reassessment: see triage assessment. mg2 05:40 Reassessment: patient sent to CT scan. mg2 07:00 General: Appears ill, Behavior is quiet, obtunded. Pain: Unable to use pain scale. Does ss not appear to understand pain scale. AMS. Neuro: Level of Consciousness is obtunded, Oriented to none. Cardiovascular: Edema pitting to left midcalf, left ankle, right midcalf and right ankle. Respiratory: Airway is patent Respiratory effort is even, unlabored, Respiratory pattern is regular, symmetrical. GI: Abdomen is round obese. : indwelling head in place. EENT: Oral mucosa is dry. 08:00 Reassessment: No changes from previously documented assessment. Neuro: Level of ss Consciousness is obtunded, Oriented to none. Respiratory: Respiratory effort is even, unlabored. 08:29 Reassessment: rectal tube unclamped. ss 09:00 Reassessment: Patient appears in no apparent distress at this time. No changes from previously documented assessment. Pt remains on monitors. Responds to painful stimuli only. 10:18 Reassessment: Attempted to call report to receiving nurse. Nurse unavailable at this ss time for report will call back soon. 10:40 Reassessment: Report given to DAYNA Rueda. Vital Signs: 05:05 BP 135 / 75; Pulse 103; Resp 16; Temp 97.3; Pulse Ox 97% on R/A; mg2 06:45 BP 137 / 80; Pulse 105; Resp 15; Pulse Ox 100% on R/A; mg2 ED Course: 05:05 Patient arrived in ED. mg2 05:06 Parth Parra MD is Attending Physician. mh7 05:15 EKG done, by ED staff, reviewed by Parth Parra MD. rr5 05:20 Patient has correct armband on for positive identification. Placed in gown. Bed in low rr5 position. Side rails up X2. equipment monitor phototypesetting on. Pulse ox on. NIBP on. 05:20 Inserted saline lock: 22 gauge in left ,using aseptic technique. shoulder Blood rr5 collected. 05:20 First set of blood cultures drawn by me. rr5 05:25 Head cath inserted, using sterile technique, 16 Fr., by ED staff, balloon inflated, to rr5 gravity drainage, urine specimen collected. 05:30 Jordi Peterson RN is Primary Nurse. mg2 05:30 Inserted saline lock: 18 gauge in right antecubital area, using aseptic technique. rr5 ,using aseptic technique. inserted by evans MCINTOSH 05:35 Triage completed. mg2 05:36 Arm band placed on. mg2 05:40 Patient has correct armband on for positive identification. mg2 05:40 No provider procedures requiring assistance completed. mg2 06:46 fecal management system inserted by DAYNA Urena. mg2 06:54 Edin Davis MD is Hospitalizing Provider. mh7 07:04 XRAY Chest (1 view) In Process Unspecified. EDMS 07:04 CT Head C Spine In Process Unspecified. EDMS Administered Medications: 05:30 Drug: D5-1/2 NS 1000 ml Route: IV; Rate: bolus; Site: right upper arm; mg2 08:15 Follow up: IV Status: Completed infusion; IV Intake: 1000ml ss 06:45 Drug: Lactulose 200 grams Route: CT; mg2 10:42 Follow up: Response: No adverse reaction ss 07:05 Drug: Lasix 20 mg Route: IVP; Site: left upper arm; mg2 10:42 Follow up: Response: No adverse reaction ss Intake: 08:15 IV: 1000ml; Total: 1000ml. ss 10:41 IV: 1000ml (IV Fluid); Total: 2000ml. ss Output: 10:41 Urine: 1100ml (Head); Total: 1100ml. ss Outcome: 06:55 Decision to Hospitalize by Provider. mh7 10:14 Condition: stable ss 10:14 Instructed on the need for admit. 11:18 Patient left the ED. hb Signatures: Dispatcher [employer] EDMS Smirch, Radha, RN RN ss Helena Muir RN RN Jordi Peterson RN RN mg2 Romel Ortiz RN RN rr5 Parth Parra MD MD mh7 Corrections: (The following items were deleted from the chart) 06:47 06:45 Pulse 105bpm; Resp 15bpm; Pulse Ox 100% RA; mg2 mg2
--- NOTE | 2020-12-22 06:55 | EDPHYS ---
Physician Documentation [facility] Name: Lorena Hansen Age: 50 yrs Sex: Female : 1970 Arrival Date: 12/22/2020 Time: 05:05 Bed 15 Private MD: ED Physician Parth Parra HPI: 12/22 05:14 This 50 yrs old Female presents to ER via Unassigned with complaints of mh7 Altered mental Status. 05:14 The patient presents with decreased mental status, decreased responsiveness. Onset: The mh7 symptoms/episode began/occurred today, at an unknown time. Possible causes: elevated ammonia level. Associated signs and symptoms: The patient has no apparent associated signs or symptoms. Current symptoms: In the emergency department the patient's symptoms are unchanged from the initial presentation. Patient's baseline: Neuro: alert and fully oriented, Motor: no deficits, Ambulation: walks without assistance, Speech: normal. Unable to obtain HPI due to altered mental status. The patient has experienced similar episodes in the past, chronically. Per EMS found patient on floor this morning inside home. Last known normal was \\T\\ 2200 last night. Patient has had similar issue multiple times in the past due to elevated ammonia level.. Historical: - Allergies: 05:36 PENICILLINS; mg2 05:36 Zofran; mg2 - Home Meds: 05:36 Lactulose Oral [Active]; mg2 - PMHx: 05:36 Cirrhosis; COLON CA; mg2 - PSHx: 05:36 Unable to obtain; mg2 - Immunization history:: Flu vaccine status is unknown. - Social history:: Smoking status: unknown. ROS: 05:14 Unable to obtain ROS due to altered mental status. mh7 Exam: 05:14 Neck: Trachea midline, no thyromegaly or masses palpated, and no cervical mh7 lymphadenopathy. Supple, full range of motion without nuchal rigidity, or vertebral point tenderness. No Meningismus. Chest/axilla: Normal chest wall appearance and motion. Nontender with no deformity. No lesions are appreciated. 05:14 Constitutional: The patient appears obviously ill, AMS, screams periodically 05:14 Head/face: 05:40 Head/Face: Normocephalic, atraumatic. Eyes: Pupils equal round and reactive to light, mh7 extra-ocular motions intact. Lids and lashes normal. Conjunctiva and sclera are non-icteric and not injected. Cornea within normal limits. Periorbital areas with no swelling, redness, or edema. ENT: Nares patent. No nasal discharge, no septal abnormalities noted. Tympanic membranes are normal and external auditory canals are clear. Oropharynx with no redness, swelling, or masses, exudates, or evidence of obstruction, uvula midline. Mucous membranes moist. 05:40 Respiratory: Lungs have equal breath sounds bilaterally, clear to auscultation and percussion. No rales, rhonchi or wheezes noted. No increased work of breathing, no retractions or nasal flaring. Abdomen/GI: Soft, non-tender, with normal bowel sounds. No distension or tympany. No guarding or rebound. No evidence of tenderness throughout. Back: No spinal tenderness. No costovertebral tenderness. Full range of motion. 05:40 MS/ Extremity: Pulses equal, no cyanosis. Neurovascular intact. Full, normal range of motion. 05:40 Cardiovascular: Rate: tachycardic, Rhythm: regular, Pulses: no pulse deficits are appreciated, Heart sounds: normal, normal S1and S2, Edema: is not appreciated, JVD: is not appreciated. 05:40 Neuro: Orientation: unable to test, AMS, Mentation: unable to test, AMS, Memory: unable to test, AMS, Cranial nerves: unable to test, AMS, Cerebellar function: unable to test, AMS, Motor: moves all fours, Sensation: is normal, Gait: not tested. seizure activity, is not displayed by the patient, Abnormal movements: there are no abnormal movements. Vital Signs: 05:05 BP 135 / 75; Pulse 103; Resp 16; Temp 97.3; Pulse Ox 97% on R/A; mg2 06:45 BP 137 / 80; Pulse 105; Resp 15; Pulse Ox 100% on R/A; mg2 MDM: 06:52 Differential Diagnosis: CVA, electrolyte abnormality, alcohol intoxication, mh7 intracranial bleed, overdose, pneumonia, seizure, TIA, UTI, volume depletion, Hepatic Encephalopathy. Data reviewed: vital signs, nurses notes, EMS record, old medical records, lab test result(s), cardiac enzymes, CBC, electrolytes, urinalysis, EKG, radiologic studies, CT scan, plain films. Data interpreted: Pulse oximetry: on room air is 97 %. Interpretation: normal. Counseling: I had a detailed discussion with the patient and/or guardian regarding: the historical points, exam findings, and any diagnostic results supporting the discharge/admit diagnosis, the presence of at least one elevated blood pressure reading (>120/80) during this emergency department visit, lab results, radiology results, the need for further work-up and treatment in the hospital. Response to treatment: the patient's symptoms have mildly improved after treatment. 06:55 Patient medically screened. [facility] 12/22 05:08 Order name: Basic Metabolic Panel [facility] 12/22 05:08 Order name: CBC with Diff [facility] 12/22 05:08 Order name: LFT's [facility] 12/22 05:08 Order name: Magnesium [facility] 12/22 05:08 Order name: NT PRO-BNP [facility] 12/22 05:08 Order name: PT-INR [facility] 12/22 05:08 Order name: Troponin (emerg Dept Use Only) [facility] 12/22 05:08 Order name: AMMONIA [facility] 12/22 05:08 Order name: ETOH Level [facility] 12/22 05:08 Order name: UDS [facility] 12/22 05:10 Order name: Acetaminophen [facility] 12/22 05:10 Order name: Salicylate [facility] 12/22 05:18 Order name: Glucose, Ancillary Testing; Complete Time: 05:58 EDMS 12/22 05:27 Order name: Urine Dipstick--Ancillary (enter results) 3 12/22 05:27 Order name: Urine --Ancillary (enter results) tt3 12/22 05:41 Order name: CBC with Automated Diff; Complete Time: 05:58 EDMS 12/22 05:45 Order name: COVID-19 : Document "Date of Symptom Onset" if Symptomatic. mg2 12/22 05:51 Order name: Ammonia; Complete Time: 05:58 EDMS 12/22 05:51 Order name: Alcohol Serum/Plasma; Complete Time: 05:58 EDMS 12/22 05:55 Order name: Protime (+INR); Complete Time: 05:58 EDMS 12/22 05:55 Order name: Urine Drug Screen; Complete Time: 05:58 EDMS 12/22 05:59 Order name: CORONAVIRUS MS 12/22 06:02 Order name: Basic Metabolic Panel; Complete Time: 06:04 EDMS 12/22 06:02 Order name: Liver (Hepatic) Function; Complete Time: 06:04 EDMS 12/22 06:02 Order name: Troponin (Emerg Dept Use Only); Complete Time: 06:04 EDMS 12/22 06:02 Order name: NT PRO-BNP; Complete Time: 06:04 EDMS 12/22 06:02 Order name: Acetaminophen Level; Complete Time: 06:04 EDMS 12/22 06:02 Order name: Magnesium; Complete Time: 06:04 EDMS 12/22 06:07 Order name: Salicylates Level; Complete Time: 06:26 EDMS 12/22 06:19 Order name: Urine --Ancillary; Complete Time: 06:26 EDMS 12/22 05:08 Order name: XRAY Chest (1 view) [facility] 12/22 05:08 Order name: EKG; Complete Time: 05:09 7 12/22 05:08 Order name: Cardiac monitoring; Complete Time: 05:31 7 12/22 05:08 Order name: EKG - Nurse/Tech; Complete Time: 05:31 7 12/22 05:08 Order name: IV Saline Lock; Complete Time: 05:31 7 12/22 05:08 Order name: Labs collected and sent; Complete Time: 05:31 7 12/22 05:08 Order name: O2 Per Protocol; Complete Time: 05:31 7 12/22 05:08 Order name: O2 Sat Monitoring; Complete Time: 05:31 7 12/22 05:08 Order name: Urine Dipstick-Ancillary (obtain specimen); Complete Time: 05:26 [facility] 12/22 05:08 Order name: Urine Test (obtain specimen); Complete Time: 05:26 7 12/22 05:08 Order name: CT Head C Spine [facility] 12/22 06:20 Order name: Urine Dipstick-Ancillary; Complete Time: 06:26 MS 12/22 06:41 Order name: SARS-COV-2 RT PCR; Complete Time: 06:48 EDMS 12/22 06:49 Order name: Blood Culture Adult (2) [facility] 12/22 06:49 Order name: Lactate [facility] 12/22 06:49 Order name: Procalcitonin [facility] 12/22 09:42 Order name: Comprehensive Metabolic Panel EDMS 12/22 09:42 Order name: Comprehensive Metabolic Panel EDMS 12/22 09:42 Order name: Protime (+INR) EDMS 12/22 09:42 Order name: Protime (+INR) EDMS 12/22 09:42 Order name: PTT, Activated Partial Thromb EDMS 12/22 09:42 Order name: PTT, Activated Partial Thromb EDMS 12/22 09:42 Order name: Regular EDMS 12/22 09:42 Order name: CBC with Automated Diff EDMS 12/22 09:42 Order name: CBC with Automated Diff EDMS Administered Medications: 05:30 Drug: D5-1/2 NS 1000 ml Route: IV; Rate: bolus; Site: right upper arm; mg2 08:15 Follow up: IV Status: Completed infusion; IV Intake: 1000ml ss 06:45 Drug: Lactulose 200 grams Route: OH; mg2 10:42 Follow up: Response: No adverse reaction ss 07:05 Drug: Lasix 20 mg Route: IVP; Site: left upper arm; mg2 10:42 Follow up: Response: No adverse reaction ss Disposition: 12/22/20 06:55 Hospitalization ordered by Edin Davis for Inpatient Admission. Preliminary diagnosis is Hepatic Encephalopathy. - Bed requested for Telemetry/MedSurg (Inpatient). - Status is Inpatient Admission. hb - Condition is Stable. - Problem is an acute exacerbation. - Symptoms have improved. Signatures: Dispatcher [employer] EDMS ShitalRadha torres Helena Garcia RN RN Jordi Peterson RN RN [facility] Parth Parra MD MD [facility] Radha Mcadams RN Corrections: (The following items were deleted from the chart) 09:51 06:55 Hospitalization Ordered by Edin Davis MD for Inpatient Admission. Preliminary bd diagnosis is Hepatic Encephalopathy. Bed requested for Telemetry/MedSurg (Inpatient). Status is Inpatient Admission. Condition is Stable. Problem is an acute exacerbation. Symptoms have improved. 7 11:18 09:51 12/22/2020 06:55 Hospitalization Ordered by Edin Davis MD for Inpatient hb Admission. Preliminary diagnosis is Hepatic Encephalopathy. Bed requested for Telemetry/MedSurg (Inpatient). Status is Inpatient Admission. Condition is Stable. Problem is an acute exacerbation. Symptoms have improved. bd
[2020-12-22] MEDS ORDERED: FUROSEMIDE 20 MG/ 2ML VIAL ONE (07:21)
--- NOTE | 2020-12-22 08:16 | RAD REPORT ---
EXAM DESCRIPTION: RAD - Chest Single View - 12/22/2020 6:43 am CLINICAL HISTORY: AMS, hypertension COMPARISON: November 22 TECHNIQUE: AP portable chest image was obtained 12/22/2020 6:43 am . FINDINGS: Diffusely prominent interstitial pattern throughout both lung newton. Additional airspace opacities are present in the lung newton more prominent in the right base. No dense consolidation. Tr achea is midline. Heart size is prominent but stable. Vasculature is mildly prominent. No measurable pleural effusion and no pneumothorax. No acute bony abnormality seen. No acute aortic findings suspec joseph. IMPRESSION: Heart, vasculature and lung markings are all prominent with vasculature and lung marking s increased from November 22 comparison. Pattern is nonspecific. Findings could reflect a mild failure or volume overload. Viral pneumonia wou ld be possible as well.
[2020-12-22] MEDS ORDERED: ACETAMINOPHEN 500 MG TAB PO PRN (09:39)
[2020-12-22] MEDS ORDERED: MORPHINE 2 MG/ML SYR IV PRN (09:39)
[2020-12-22] MEDS ORDERED: ONDANSETRON 4 MG/2 ML VIAL IV PRN (09:39)
[2020-12-22] MEDS: NA CHLORIDE 0.9% 1,000 ML IV SCH ×2 (10:00→23:20)
[2020-12-22] MEDS: LACTULOSE 20 GM/30 ML UCUP PO SCH ×4 (10:00→22:29)
--- NOTE | 2020-12-22 12:26 | RAD REPORT ---
EXAM DESCRIPTION: CT - [id number] - 12/22/2020 7:04 am CLINICAL HISTORY: AMS TECHNIQUE: Axial computed tomography images of the head/brain and cervical spine without intravenous contrast. Sagittal and coronal reformatted images were created and reviewed. This CT exam was pe rformed using one or more of the following dose reduction techniques: automated exposure control, a djustment of the mA and/or kV according to patient size, and/or use of iterative reconstruction techn ique. COMPARISON: 12/07/2020 CT head FINDINGS: Limitations: None. Brain: No acute infarct, mass or hemorrhage. No significant white matter disease. No edema. Preserved morales white differentiation. Midline shift: None. Ventricles: No abnormality noted. Sinuses: There is a small amount of layering fluid in the right maxillary sinus. Chronic thicke betito left maxillary sinus. Mastoid air cells: No mastoid effusion. Orbits: Visualized portions appear normal. Vertebrae: Mild multilevel spondylosis most notable at C6-C7. Discs/spinal canal/neural foramina: Mild facet arthrosis most notable on the left at C4-C5. Mild to moderate disc space narrowing C6-C7. Soft tissues: Left scalp contusion. Vasculature: No acute abnormality noted. Lung apices: Visualized portions appear normal. Pleural space: Visualized portions appear normal. IMPRESSION: 1. Left scalp contusion. 2. No acute change in the brain. 3. Degenerative changes. No cervical fracture or subluxation. Electronically signed by: Radha Doll MD 12/22/2020 6:33 AM WEB CONTENT PRODUCER Due to temporary technical issues with the PACS/Fluency reporting system, reports are being signed by the in house radiologists without review as a courtesy to insure prompt reporting. The interpreting radiologist is fully responsible for the content of the report.
[2020-12-22] MEDS ORDERED: LACTULOSE 20 GM/30 ML UCUP PR SCH (15:30)
[2020-12-22 15:40] VITALS: BMI 32.1
[2020-12-22] MEDS ORDERED: LACTULOSE 20 GM/30 ML UCUP PR ONE (22:35)
[2020-12-22 23:58] VITALS: O2SAT 96
[2020-12-23] MEDS: LACTULOSE 20 GM/30 ML UCUP PO SCH ×2 (03:17→09:34)
[2020-12-23] MEDS: NA CHLORIDE 0.9% 1,000 ML IV SCH (04:49)
[2020-12-23 06:36] LABS: Absolute Lymphocytes (CBC) 1.2 K/uL (0.7-4.9); Hematocrit 26.1 % (36.0-45.0); Lymphocytes % 27.1 % (15.3-44.8); MPV 8.7 fL (7.6-11.3)
[2020-12-23 07:29] LABS: ALT/SGPT 36 U/L (12-78); AST/SGOT 69 U/L (15-37); Albumin 1.9 g/dL (3.4-5.0); Alkaline Phosphatase 103 U/L (45-117); BUN Blood Urea Nitrogen 13 mg/dL (7-18); Bicarbonate 27 mmol/L (21-32); Bilirubin Total 6.8 mg/dL (0.2-1.0); Glucose Level 64 mg/dL (74-106); Potassium 3.3 mmol/L (3.5-5.1); Protein, Total 4.5 g/dL (6.4-8.2); Sodium Level 148 mmol/L (136-145)
[2020-12-23] MEDS ORDERED: ALBUMIN HUMAN 25% 100 ML IV ONE (07:56)
--- NOTE | 2020-12-23 08:03 | P.HP ---
Certification for Inpatient Patient admitted to: Inpatient With expected LOS: >2 Midnights Patient will require the following post-hospital care: None Practitioner: I am a practitioner with admitting privileges, knowledge of patient current condition, hospital course, and medical plan of care. Services: Services provided to patient in accordance with Admission requirements found in Title 42 Section 412.3 of the Code of Federal Regulations Patient History Date of Service: 12/22/20 Reason for admission: Hepatic encephalopathy History of Present Illness: Patient is a 50-year-old female who came to the hospital with confusion. Patient was found have hepatic encephalopathy. Patient recurrent admissions for similar issues. She is not really compliant with her medication. She recently had her boyfriend who help take care over leave. She has been on her own since that time. Patient is not really following commands. Patient is confused and lethargic. Patient will be admitted to the hospital for further evaluation. Allergies ondansetron [From Zofran] Allergy (Verified 06/14/20 21:06) Anaphylaxis Home Medications: Furosemide 40 mg PO BID 06/24/20 Ciprofloxacin HCl 500 mg PO BID 7 Days #14 tablet 11/06/20 Lactulose 45 ml PO TID #4000 ml 11/06/20 Rifaximin [Xifaxan] 550 mg PO BID #60 11/24/20 Amlodipine [Norvasc*] 5 mg PO DAILY #30 tab 12/01/20 Spironolactone 1 tab PO DAILY 12/10/20 - Past Medical/Surgical History Diabetic: No -: Advanced liver cirrhosis -: History of GERD with ulcer -: Diastolic CHF -: History of Esophageal varices -: Methamphetamine abuse -: Noncompliance with medication -: Recurrent admissions for hepatic encephalopathy -: Endoscopy -: GB Sx Psychosocial/ Personal History: Unknown - Family History Mother Medical History: Cancer Father Medical History: Heart disease - Social History Smoking Status: Former smoker Alcohol use: No CD- Drugs: No Caffeine use: No Review of Systems 10-point ROS is otherwise unremarkable Physical Examination - Vital Signs Temperature: 97.6 F Blood Pressure: 130/69 Pulse: 102 Respirations: 16 Pulse Ox (%): 96 - Physical Exam General: Alert, In no apparent distress, Confused HEENT: Atraumatic, PERRLA, Mucous membr. moist/pink, EOMI, Sclerae nonicteric Neck: Supple, 2+ carotid pulse no bruit, No LAD, Without JVD or thyroid abnormality Respiratory: Clear to auscultation bilaterally, Normal air movement Cardiovascular: Regular rate/rhythm, Normal S1 S2, No murmurs Gastrointestinal: Normal bowel sounds, Soft and benign, Non-distended, No tenderness Musculoskeletal: No clubbing, No swelling, No tenderness Integumentary: No rashes Neurological: Normal gait, Normal speech, Normal strength at 5/5 x4 extr, Normal tone, Sensation intact, Cranial nerves 3-12 intact, Normal affect Lymphatics: No axilla or inguinal lymphadenopathy Assessment & Plan - Problems (Diagnosis) (1) Hepatic encephalopathy Current Visit: No Status: Acute (2) Ascites Current Visit: No Status: Acute (3) Hypoalbuminemia Current Visit: No Status: Acute (4) Lactic acidosis Current Visit: No Status: Acute (5) Liver cirrhosis Current Visit: No Status: Acute - Plan Plan: 1. Repeat ammonia level 2. Monitor LFTs 3. Neurochecks 4. Repeat albumin 5. GI and DVT prophylax Discharge Plan: Home Plan to discharge in: Greater than 2 days - Advance Directives Does patient have a Living Will: No Does patient have a Durable POA for Healthcare: No - Code Status/Comfort Care Code Status Assessed: Yes Code Status: Full Code Critical Care: No Time Spent Managing PTS Care (In Minutes): 40
--- NOTE | 2020-12-23 08:05 | P.PN ---
Subjective Date of Service: 12/23/20 Subjective: No new changes, No C/O voiced, Tolerating diet, Improving Review of Systems 10-point ROS is otherwise unremarkable Physical Examination - Vital Signs Temperature: 97.6 F Blood Pressure: 130/69 Pulse: 102 Respirations: 16 Pulse Ox (%): 96 - Physical Exam General: Alert, In no apparent distress, Oriented x3 HEENT: Atraumatic, PERRLA, EOMI Neck: Supple, JVD not distended Respiratory: Clear to auscultation bilaterally, Normal air movement Cardiovascular: Regular rate/rhythm, Normal S1 S2, No murmurs Gastrointestinal: Normal bowel sounds, Soft and benign, Non-distended, No tenderness Musculoskeletal: No clubbing, No swelling, No tenderness Integumentary: No rashes Neurological: Sensation intact, Cranial nerves 3-12 intact - Studies Medications List Reviewed: Yes Assessment & Plan - Problems (Diagnosis) (1) Hepatic encephalopathy Current Visit: No Status: Acute (2) Ascites Current Visit: No Status: Acute (3) Hypoalbuminemia Current Visit: No Status: Acute (4) Lactic acidosis Current Visit: No Status: Acute (5) Liver cirrhosis Current Visit: No Status: Acute - Plan Plan: Continue with plan of care as mentioned below 1. Repeat ammonia level 2. Monitor LFTs 3. Neurochecks 4. Repeat albumin 5. GI and DVT prophylaxis Discharge Plan: Home Plan to discharge in: Greater than 2 days - Advance Directives Does patient have a Living Will: No Does patient have a Durable POA for Healthcare: No - Code Status/Comfort Care Code Status: Full Code Critical Care: No Time Spent Managing PTS Care (In Minutes): 30
[2020-12-23 09:55] LABS: Anisocytosis SLIGHT; Blood Morphology Comment NOTED (NOT SEEN); Platelet Estimate DECR
[2020-12-23 11:13] LABS: Protime INR 1.9
[2020-12-23 14:36] VITALS: BP 141/84; TEMP 98.4
--- NOTE | 2021-01-13 00:44 | P.DS ---
Discharge Date: 12/23/20 Disposition: ROUTINE DISCHARGE Discharge Condition: GOOD Reason for Admission: Hepatic encephalopathy - Problems (1) Hepatic encephalopathy Status: Acute (2) Ascites Status: Acute (3) Hypoalbuminemia Status: Acute (4) Lactic acidosis Status: Acute (5) Liver cirrhosis Status: Acute Brief History of Present Illness: Patient is a 50-year-old female who came to the hospital with confusion. Patient was found have hepatic encephalopathy. Patient recurrent admissions for similar issues. She is not really compliant with her medication. She recently had her boyfriend who help take care over leave. She has been on her own since that time. Patient is not really following commands. Patient is confused and lethargic. Patient will be admitted to the hospital for further evaluation. Hospital Course: Patient is awake and following commands. Patient will continue on lactulose. Will also benefit for rifaximin. Patient will need close outpatient follow up with a manager hiv. Return to the Emergency room if symptoms worsen. Her prognosis is poor if she does get in with a manager hiv. Vital Signs/Physical Exam: Temp Pulse Resp BP Pulse Ox 98.4 F 109 H 19 141/84 H 98 12/23/20 12:00 12/23/20 12:00 12/23/20 12:00 12/23/20 12:00 12/23/20 12:00 General: Alert, In no apparent distress, Oriented x3 Laboratory Data at Discharge: WBC 4.60 K/uL (4.3-10.9) 12/23/20 06:19 Hgb 8.2 g/dL (12.0-15.0) L 12/23/20 06:19 Hct 26.1 % (36.0-45.0) L 12/23/20 06:19 Plt Count 69 K/uL (152-406) L D 12/23/20 06:19 PT 22.0 SECONDS (9.5-12.5) H 12/23/20 10:40 INR 1.90 12/23/20 10:40 APTT 39.5 SECONDS (24.3-36.9) H 12/23/20 10:40 Sodium 148 mmol/L (136-145) H 12/23/20 06:19 Potassium 3.3 mmol/L (3.5-5.1) L 12/23/20 06:19 BUN 13 mg/dL (7-18) 12/23/20 06:19 Creatinine 0.51 mg/dL (0.55-1.3) L 12/23/20 06:19 Glucose 64 mg/dL (74-106) L 12/23/20 06:19 Magnesium 1.7 mg/dL (1.8-2.4) L 12/22/20 05:17 Total Bilirubin 6.8 mg/dL (0.2-1.0) H* 12/23/20 06:19 AST 69 U/L (15-37) H 12/23/20 06:19 ALT 36 U/L (12-78) 12/23/20 06:19 Alkaline Phosphatase 103 U/L (45-117) 12/23/20 06:19 Home Medications: Furosemide 40 mg PO BID 06/24/20 Ciprofloxacin HCl 500 mg PO BID 7 Days #14 tablet 11/06/20 Lactulose 45 ml PO TID #4000 ml 11/06/20 Rifaximin [Xifaxan] 550 mg PO BID #60 11/24/20 Amlodipine [Norvasc*] 5 mg PO DAILY #30 tab 12/01/20 Spironolactone 1 tab PO DAILY 12/10/20 Physician Discharge Instructions: -OK TO DC IV AND DC HOME -FOLLOW-UP WITH PCP IN 1-2 WEEKS -FOLLOW-UP WITH Supervisor [employer] IN 1-2 WEEKS -PLEASE MAKE SURE ALL DIAGNOSTIC STUDIES ARE AVAILABLE AND HAVE BEEN REVIEWED WITH PATIENT PRIOR TO DISCHARGE -RETURN TO THE ER IF symptoms worsen -CALL DR. CRISTINA AT [phone] IF ANY QUESTIONS REGARDING HOSPITAL STAY -PLEASE CALL THE FLOOR AT [phone] IF ANY MEDICATION OR NURSING QUESTIONS Diet: AHA Activity: Fall precautions Followup: Unknown,U [Primary Care Provider] - Time spent managing pt's care (in minutes): 35
== END 2020-12-23 16:11 | disposition home or self-care (01) | DRG 442 ==
LOC: ER 04:59 → ERHOLD 10:05 → 2ND 10:40
PROVIDERS: ADMIT Hospitalist; ATTEND Hospitalist
DX: K72.90 Hepatic failure, unspecified without coma (principal); R18.8 Other ascites; E87.2 Acidosis; K74.60 Unspecified cirrhosis of liver; E88.09 Other disorders of plasma-protein metabolism, not elsewhere classified; Z88.0 Allergy status to penicillin; Z88.8 Allergy status to other drugs, medicaments and biological substances; Z85.038 Personal history of other malignant neoplasm of large intestine; Z91.14 Patient's other noncompliance with medication regimen; Z79.899 Other long term (current) drug therapy; Z87.891 Personal history of nicotine dependence; Z20.822 Contact with and (suspected) exposure to COVID-19
CPT/HCPCS: 36415; 51702; 70450; 71045; 72125; 80048; 80053; 80076; 80307; 80320; 80329; 81003; 81025; 82140; 82947; 83605; 83735; 83880; 84145; 84484; 85025; 85610; 85730; 87040; 93005; 96365; 96366; 96375; 99285; J1940; J2270; J7030; J7799; P9047; U0003

== ENCOUNTER 2021-02-15 01:01 | Inpatient (IN) | payer SELFPAY ==
--- OUTSIDE RECORDS SUMMARY | 2021-02-15 01:07 | XMS REPORT | Continuity of Care Document ---
:1970 Author Organization [facility] t Address [address] [place] [address] Care Team Providers Name Role Phone Law, R Attending Clinician Unavailable Carl MAGANA S Attending Clinician Evaristo Nam MD Attending Clinician Ramesh PATEL Attending Clinician Gin Anthony MA Attending Clinician Unavailable Octavio Vivar MD Attending Clinician LEO Attending Clinician Unavailable Leo JEFF Attending Clinician Ni Moon MD Attending Clinician Merchant JEFF Attending Clinician Shahbaz Rodriguez MD Attending Clinician Sonia Toney MD Attending Clinician Vasyl RN, E Attending Clinician Gera JEFF, Norman Attending Clinician Kevin Newman MD Attending Clinician Olivia JEFF Attending Clinician Shane Attending Clinician Andrea JEFF Attending Clinician Lavon JEFF Attending Clinician Doctor Unassigned, Name Attending Clinician Unavailable Ramesh PATEL Admitting Clinician Admitting Clinician Unavailable Dalila JEFF Admitting Clinician Andrea JEFF Admitting Clinician Payers Payer Name Policy Type Policy Effective Date Expiration Date Sour ce Number BLUE CROSS/BLUE [id number] 2020 [facility] SHIELDBCBS PPO 00:00:00 - Medical POS EPO Center [id number], [place] [address]SWR Problems Condition Condition Condition Status Onset Resolution Last Treating Co mments Source Name Details Category Date Date Treatment Clinician Date Black Black Disease [facility] Cirrhosis Cirrhosis Disease Active [facility] Volume Volume Disease Active [facility] overload overload [facility] Allergies, Adverse Reactions, Alerts Allergy Allergy Status Severity Reaction(s) Onset Inactive Treating Comm ents Source Name Type Date Date Clinician ondanset DA Active CO [facility] 00:00: [facility] 00 are [facility] Ondanset Drug Active Rash [facility] Hcl Allergy 1-06 [facility] - (Pf) 00:[facility] 00 Center Social History Social Habit Start Date Stop Date Quantity Comments Source Sex Assigned At [facility] Tobacco use and 2020-10-23 2020-10-23 Never used [facility] - exposure 00:00:00 00:00:00 [facility] Alcohol intake 2020-10-23 2020-10-23 [facility] [place] Smoking Status Start Date Stop Date Source Current some day smoker 2020-10-23 00:00:[address] [facility] Medications Ordered Filled Start Stop Current Ordering Indication Dosage Frequency Signature Comments Components Source Medication Medication Date Date Medication? Clinician (SIG) Name Name spironolact 2021- No 100mg QD Take [address] one 10-25 tablet [facility] - (ALDACTONE) 00:00: 23:59 (100 mg Me dical 100 MG 00 :00 total) by Center tablet mouth daily. lactulose 2020- No 20g Q.[id number] Take [address] [facility] [address] (CHRONULAC) 10-24 [id number] by mouth 3 [facility] - 10 gram/15 15:10: 00:00 3D (three) Med ical mL (15 mL) 38 :00 times Center solution daily. rifAXIMin 2020- No 550mg Q.5D Take [address] 550 mg Tab 10-24 mg by [facility] - 15:10: 00:00 mouth 2 Medical 38 :00 (two) Center times daily. furosemide No 40mg QD Take [address] [facility] (LASIX) 40 10-24 by mouth Luke s - MG tablet 15:10: 00:00 daily. Medic al 38 :00 Center rifAXIMin Yes hepatic 550mg Q.5D Take [address] 550 mg Tab 10-24 encephalopa tablet [facility] - 00:00: thy (550 mg Medical 00 total) by Center mouth 2 (two) times daily. lactulose 2021- No 20g Q.[id number] Take [address] [address] (CHRONULAC) 10-24 [id number] mLs (20 g [facility] - 10 gram/15 00:00: 23:59 3D total) by M edical mL (15 mL) 00 :00 mouth 3 Center solution (three) times daily. potassium 2021- No 20meq QD Take [address] chloride SA 10-24 tablet (20 L ukes - (K-DUR,KLOR 00:00: 23:59 mEq total) Medical -CON) 20 00 :00 by mouth Center MEQ tablet daily. furosemide 2020-2020- No Take [address] [facility] (LASIX) 40 10-24 04-15 tablet (40 Mita kes - MG tablet 00:00: 23:59 mg total) Me dical 00 :00 by mouth 2 Center (two) times daily for 7 days, THEN 1 tablet (40 mg total) daily for 90 days. pantoprazol 40mg Q.5D Take 1 [facility] 10-24 tablet (40 [facility] - (PROTONIX) 00:00: 23:59 mg total) M edical 40 MG 00 :00 by mouth 2 Center tablet (two) times daily for 30 days. Vital Signs Vital Name Observation Time Observation Value Comments Source Systolic blood 2020-10-24 12:45:00 128 mm[Hg] [facility] Diastolic blood 2020-10-24 12:45:00 77 mm[Hg] [facility] Heart rate 2020-10-24 12:45:00 95 /min [facility] Body temperature 2020-10-24 12:45:00 36.78 Baltazar [facility] Respiratory rate 2020-10-24 12:45:00 16 /min [facility] Oxygen saturation in 2020-10-24 12:45:00 99 /min [facility] Arterial blood by Medical Ce nter Pulse oximetry Body height 2020-10-22 18:07:00 162.6 cm [facility] Body weight 2020-10-22 18:07:00 88.14 kg [facility] BMI 2020-10-22 18:07:00 33.35 kg/m2 [facility] Procedures Procedure Date / Time Performed Performing Clinician Sourc e US ABDOMEN LIMITED 2020-10-24 14:23:[address] [facility] COMPREHENSIVE METABOLIC 2020-10-24 02:19:00 Eusebio Grace [facility] CBC W/PLT COUNT & AUTO 2020-10-24 02:19:00 Silvio Riggs [facility] PROTHROMBIN TIME/INR 2020-10-24 02:19:00 Silvio Riggs [facility] REPORT OF PROCEDURE - 2020-10-23 13:12:14 Ruth Toney I [facility] ENDOSCOPY [facility] UPPER ENDOSCOPY 2020-10-23 09:39:00 Ruth Toney [facility] MAGNESIUM 2020-10-23 05:15:00 Merchant [facility] COMPREHENSIVE METABOLIC 2020-10-23 05:15:00 Sanjay [facility] CBC W/PLT COUNT & AUTO 2020-10-23 05:14:00 Pattit [facility] PROTHROMBIN TIME/INR 2020-10-23 05:14:00 Sanjay [facility] HEPATITIS C PCR, 2020-10-23 05:14:00 Sanjay [facility] HEPATITIS C GENOTYPE 2020-10-23 05:14:00 Sanjay [facility] HEPATITIS PANEL, ACUTE 2020-10-23 05:14:00 Sanjay [facility] [id number], 2020-10-23 05:14:00 Sanjay [facility] ALPHA FETOPROTEIN (AFP), 2020-10-23 05:14:00 Sanjay [facility] TUMOR MARKER [facility] CERULOPLASMIN 2020-10-23 05:14:00 Sanjay [facility] FERRITIN 2020-10-23 05:14:00 Sanjay [facility] IRON, TIBC, % SAT. 2020-10-23 05:14:00 Sanjay [facility] (WITHOUT FERRITIN) [facility] 2020-10-23 05:14:00 Sanjay [facility] FOLATE, SERUM 2020-10-23 05:14:00 Sanjay [facility] RETICULOCYTE COUNT 2020-10-23 05:14:00 Sanjay [facility] ACTIN (SMOOTH MUSCLE) 2020-10-23 05:14:00 Eusebio r[facility]ace [facility] - ANTIBODY, IGG [facility] ANTI-NUCLEAR ANTIBODY 2020-10-23 05:14:00 [facility] ANTI-MITOCHONDRIAL AB, 2020-10-23 05:14:00 Eusebio Grace [facility] - REFLEX TO TITER [facility] HEPATITIS B CORE 2020-10-23 05:14:00 Eusebio Grace [facility] - ANTIBODY, TOTAL [facility] HEPATITIS A ANTIBODY, IGG 2020-10-23 05:14:00 Eusebio Grace [facility] MITOCHONDRIAL AB SCREEN 2020-10-23 05:14:00 [facility] TITER 2020-10-23 05:14:00 [facility] HEMOGLOBIN AND HEMATOCRIT 2020-10-23 05:14:00 Merchant Silvio [facility] US ABDOMINAL WITH DOPPLER 2020-10-22 21:15:00 Silvio Riggs [facility] URINALYSIS W/ REFLEX 2020-10-22 17:23:00 [facility] SARS-COV2/RT-PCR ([facility] & 2020-10-22 15:22:00 Merchant [facility] - REF LABS) [facility] BLOOD CULTURE 2020-10-22 15:07:00 Merchant [facility] CBC W/PLT COUNT & AUTO 2020-10-22 14:07:00 Mandie Moon [facility] BASIC METABOLIC PANEL (7) 2020-10-22 14:07:00 Mandie Moon [facility] HEPATIC FUNCTION PANEL 2020-10-22 14:07:00 Sarai [facility] TROPONIN I 2020-10-22 14:07:00 [facility] 12-LEAD 2020-10-22 14:01:12 Unknown, Hl7 [facility] Center XR CHEST 1 VIEW 2020-10-22 13:46:00 Silvio Riggs [facility] - PORTABLE/BEDSIDE Medical Center REPORT OF PROCEDURE - 2020-10-22 00:00:00 ProviderCameron JACKSON Marroquin - ENDOSCOPY SCAN Scanning [facility] Plan of Care Planned Activity Planned Date Details Comments Source Future Scheduled 2021-06-[address] [facility] - Test 00:00:00 (Season Ended) [code = [facility] al Center INFLUENZA VACCINE (Season Ended)] Future Scheduled 2020-10-[address] [facility] - Test 00:00:00 (12+) [code = [facility] DEPRESSION SCREENING (12+)] Future Scheduled 2018 SHINGLES VACCINES ([address] [facility] - Test 00:00:00 of 2) [code = SHINGLES [facility] al Center VACCINES (1 of 2)] Future Scheduled [address] [facility] - Test 00:00:00 (procedure) [code = [facility] 03443935] Future Scheduled [address] [facility] - Test 00:00:00 malignant [facility] cervix (procedure) [code = 541908037] Future Scheduled 1987 DTAP/TDAP/TD VACCINES CH I [...] es - Test 00:00:00 malignant [facility] breast (procedure) [code = 675580549] Future Scheduled [address] [facility] - Test 00:00:00 [facility] colon (procedure) [code = 968142357] Encounters Start End Encounter Admission Attending Care Care Encounter Source Date/Time Date/Time Type Type Clinicians Facility Department ID 2021-01-18 2021-01-21 [facility] Marianne Henry [facility] [id number] 20:56:00 13:40:00 Encounter Balta Nam [id number] 0 [place] 4.2.7.2.686 [place] [id number] 2020-10-13 2020-10-13 Patient Diane Fallon [id number] 00:00:00 00:00:00 Outreach E Pham [id number] [place] 4.2.7.2.686 [id number] 2020-10-01 2020-10-03 [facility] Ruben Boss [facility] 1.2.840 .114 [id number] 14:36:00 10:48:00 Encounter Kevin [facility] 350.1.13 .10 Cristofer Baker [place] 4.2.7.2.686 [place] [phone] [facility] 109 ([facility]) 2020-09-29 2020-09-29 Patient Diane Fallon [id number] 00:00:00 00:00:00 Outreach E Pham [id number] [place] 4.2.7.2.686 [id number] 2020-09-25 2020-09-25 Transition Dar Lynn 1.2.840.114 [id number] 00:00:00 00:00:00 of Care Valerie Pham [id number] [place] 4.2.7.2.686 [id number] 2020-09-22 2020-09-24 [facility] Balta Nam [facility] 1.2.840. 114 [id number] 05:04:00 10:44:00 Encounter Ezzo, [facility] [id number] [place] 4.2.7.2.686 [place] [id number] Hospital 111 ([facility]) 2020-06-30 2020-06-30 Emergency Lavon [facility] 1.2.199.313 [id number] 14:48:00 18:31:00 Hugonydia Means 350.1.13.10 [place] 4.2.7.2.686 [place] [id number] 2019-06-11 2019-06-11 Orders Doctor NARENDRA 1.2.840.114 [id number] 00:00:00 00:00:00 Only Unassigned, STAR 350.1.13.10 [place] [facility] 4.2.7.2.686 [id number] 2019-05-11 2019-05-11 Emergency Carl [facility] [id number] 10:42:22 12:29:00 Marianne Means 350.1.13.10 [place] 4.2.7.2.686 [place] [id number] Results Test Description Test Time Test Comments Results Result Comments Source CYTO 2021-01-09 11:52:00 Test Item Value Reference Range Interpretation Ilda hanson CYTO RUN DATE: (test 01/09/21 [facility] LAB *LIVE* PAGE 1 RUN TIME: 1152 code = Specimen Inquiry RUN USER: INTERFACE CYTO) PATIENT: DWAIN ESPINOSA LOC: NC.MS3 U #: [id number] AGE/SX: 50 /F ROOM: [place] [id number] RE01/06/21REG DR: Dru Platt MD : 66 BED : 1 DIS: 01/08/21 STATUS: DIS IN TLOC: SPEC #: [id number] RECD: STATUS: CRISTELA DELUCA #: [id number] [place]: 01/07/[address] [facility] [address]: Dru Platt MD ENTERED: 01/08/21 SP TYPE: CYTO OTHR DR: No Primary or Family Phy sician Self Referred Janneth March MD, Ayub MDORDERED: CELL BLOCK, THIN PREP TISSUES: ASCITES FLUID - CITES FLUID FINAL MICROSCOPIC DIAGNOSIS ASCITES FLUID, CYTOLOGIC EVALUATION (THINPREP AND BALTAZAR L BLOCK): - NO MALIGNANT CELLS IDENTIFIED - DESCRIPTIVE DIAGNOSIS: REACTIVE MESOTHELIAL CELLS, MIXED ACUTE/CHRONIC INFLAMMATORY CELLS (MOSTLY NEUTROPHILS) AND HISTIOCYTES CPT 49396, 23652 GROSS DESCRIPTION Received and labeled "Ascites", are 1100 ml of carlos fluid. The flui d is set in cytolyt solution for a Thin Prep slide preparation which is stained with Pap stain. A cell block is also performed. Signed SIGNATURE ON FILE Sukhwinder Coe Luis 01/09/21 1152 END OF REPO RT [id number] 15:15:00 Test Item Value Reference Range Interpretation Comments AMMONIA (test code = AMM) 62 umol/L 11-35 H Spec Comments: PATIENT CHANGE IN MENTAL STATUSCOMPREHENSIVE METABOLIC PANEL 2021-01-08 06:24:00 Test Item Value Reference Range Interpretation Comments SODIUM (test code 137 mmol/L 135-145 N = NA) POTASSIUM (test 3.1 mmol/L 3.5-5.1 L code = K) CHLORIDE (test 102 mmol/L 98-107 N code = CL) CARBON DIOXIDE 25 mmol/L 21-32 N (test code = CO2) ANION GAP (test 13.1 2.0-16.0 N code = GAP) GLUCOSE (test code 85 mg/dL 65-99 N = GLU) BLOOD UREA 44 mg/dL 4-23 H NITROGEN (test code = BUN) GLOMERULAR 17 ml/min >60 L The estimated g lomerular FILTRATION RATE filtration r ate is (test code = GFR) computed u singpatient race, age (>18) , sex, and serum creatinin e. If anyof the neede d data elements are mi ssing the Laboratory domenic ot compute an estimation o f the glomerular filt ration rate. CREATININE (test 3.0 mg/dL 0.6-1.5 H code = CREAT) BUN/CREATININE 14.7 12.0-20.0 N RATIO (test code = BUN/CREA) TOTAL PROTEIN 4.3 g/dL 6.4-8.2 L (test code = PROT) ALBUMIN (test code 1.8 g/dL 3.4-5.0 L = ALB) CALCIUM (test code 7.0 mg/dL 8.5-10.1 L = CA) BILIRUBIN TOTAL 3.0 mg/dL 0.2-1.2 H Use of this assay is not (test code = BILT) recommend ed for patients undergoingtreat ment with Eltrombopag due to the potential for falselyelevated results. SGOT/AST (test 40 U/L 15-37 H code = AST) SGPT/ALT (test 37 U/L 6-50 N code = ALT) ALKALINE 121 U/L 45-117 H PHOSPHATASE (test code = ALKP) PROTHROMBIN [id number] 06:22:00 Test Item Value Reference Range Interpretation Comments PROTHROMBIN TIME 20.7 SECONDS 9.4-12.5 H PATIENT (test code = PTP) INTERNATIONAL 1.8 RATIO 0.8-1.1 H THE INR IS USE FUL ONLY NORMAL RATIO (test FOR MONIT ORING code = INR) ANTICOAGULANT THERAPY.IT MAY BE UNRELIABLE IN T HE INITIAL PHASE O F ANTICOAGULATION AND IN UNSTABLE PATIEN TS. 2.0-3.0 is the recommended INR for the following:Preve ntion of venous thrombol ism in high-risk patients;treatm ent of venous thrombos is and pulmonary embol ism aftera course o f heparin; preven tion of systemic emboli sm in avariety of con dition, including atria l fibrillation andprosthetic t issue heart valves.2. 5-3.5 is the recommended INR for the following:Prost hetic mechanical hear t values and/or recurren t systemicemboliz ation. CBC W/AUTO [id number] 06:11:00 Test Item Value Reference Range Interpretation Comments WHITE BLOOD CELL (test code = 10.5 10 3/uL 4.5-11.0 N WBC) RED BLOOD CELL (test code = 2.66 10 6/uL 3.50-5.50 L RBC) HEMOGLOBIN (test code = HGB) 7.6 g/dL 12.0-16.0 L HEMATOCRIT (test code = HCT) 26.0 % 37.0-55.0 L MEAN CELL VOLUME (test code = 98 fL 81-102 N MCV) MEAN CELL HGB (test code = 28.6 pg 26.0-34.0 N MCH) MEAN CELL HGB CONCENTRATION 29.2 g/dL 31.0-37.0 L (test code = MCHC) RED CELL DISTRIBUTION WIDTH 18.8 % 11.6-14.4 H (test code = RDW) PLATELET COUNT (test code = 60 10 3/uL 150-400 L PLT) MEAN PLATELET VOLUME (test 11.6 fL 9.0-12.6 N code = MPV) NEUTROPHIL % (test code = NT%) 67.0 % 33.0-76.0 N IMMATURE GRANULOCYTE % (test 4.4 % 0.0-1.0 H code = IG%) LYMPHOCYTE % (test code = LY%) 14.7 % 14.0-56.4 N MONOCYTE % (test code = MO%) 12.0 % 0.0-12.9 N EOSINOPHIL % (test code = EO%) 1.5 % 0.0-7.0 N BASOPHIL % (test code = BA%) 0.4 % 0-2.0 N NUCLEATED RBC % (test code = 0.0 % 0-0.2 N NRBC%) NEUTROPHIL # (test code = NT#) 7.06 10 3/uL 1.5-7.0 H IMMATURE GRANULOCYTE # (test 0.460 x10 3/uL 0.000-0.100 H code = IG#) LYMPHOCYTE # (test code = LY#) 1.55 10 3/uL 1.50-4.00 N MONOCYTE # (test code = MO#) 1.27 10 3/uL 0.20-0.80 H EOSINOPHIL # (test code = EO#) 0.16 10 3/uL 0.0-0.5 N BASOPHIL # (test code = BA#) 0.04 10 3/uL 0.0-0.1 N UR SMEAR EOSINOPHIL [id number] 16:07:00 Test Item Value Reference Range Interpretation Comments UR SMEAR EOSINOPHIL COUNT (test code NEGATIVE NEGATIVE = EOSCTU) BASIC METABOLIC [id number] 15:04:00 Test Item Value Reference Range Interpretation Comments SODIUM (test code = 134 mmol/L 135-145 L NA) POTASSIUM (test code 3.1 mmol/L 3.5-5.1 L = K) CHLORIDE (test code = 102 mmol/L 98-107 N CL) CARBON DIOXIDE (test 23 mmol/L 21-32 N code = CO2) ANION GAP (test code 12.1 2.0-16.0 N = GAP) GLUCOSE (test code = 103 mg/dL 65-99 H GLU) BLOOD UREA NITROGEN 41 mg/dL 4-23 H (test code = BUN) GLOMERULAR FILTRATION 16 ml/min >60 L The es timated RATE (test code = glomerular filtration GFR) rate is compute d usingpatient ra ce, age (>18), sex, and serum creatinine. If anyof the needed data elements are mi ssing the Laboratory cannot compute an kb mation of the glomerul ar filtration rate . CREATININE (test code 3.3 mg/dL 0.6-1.5 H = CREAT) BUN/CREATININE RATIO 12.4 12.0-20.0 N (test code = BUN/CREA) CALCIUM (test code = 7.1 mg/dL 8.5-10.1 L CA) UA RFLX MICR CULT IF [id number] 14:31:00 Test Item Value Reference Range Interpretation Comments UA COLOR (test code = COLU) CARLOS YELLOW A UA APPEARANCE (test code = CLOUDY CLEAR A APPU) UA GLUCOSE DIPSTICK (test NEGATIVE NEGATIVE code = DGLUU) UA BILIRUBIN DIPSTICK (test 1+ NEGATIVE A code = BILU) UA KETONE DIPSTICK (test code NEGATIVE NEGATIVE = KETU) UA SPECIFIC GRAVITY (test 1.019 1.005-1.025 N code = SGU) UA BLOOD DIPSTICK (test code 1+ NEGATIVE A = GAGANDEEP) UA PH DIPSTICK (test code = 5.0 5.0-8.0 SHARYN) UA PROTEIN DIPSTICK (test 1+ NEGATIVE A code = PROU) UA UROBILINOGEN DIPSTICK 2.0 EU/dL 0.1-0.2 A (test code = URO) UA NITRITE DIPSTICK (test NEGATIVE NEGATIVE code = LALO) UA LEUKOCYTE ESTERASE 1+ NEGATIVE A DIPSTICK (test code = LEUU) UA MICROSCOPIC NEEDED? (test YES NO A code = UAMICRO) UA WBC (test code = WBCU) 31-50 /hpf 0-3 A UA RBC (test code = RBCU) 6-10 /hpf 0-3 A UA BACTERIA (test code = FEW /HPF NEGATIVE BACU) UA SQUAMOUS CELLS (test code Many /HPF FEW = SQU) UA HYALINE CAST (test code = 11-15 /lpf NONE SEEN HYALU) UA MUCUS (test code = MUCU) OCCASIONAL /lpf Indication for culture: Suprapubic Pain- DUP VEIN [id number] 12:03:00 [facility] D[facility]IN [facility]OSA : 1970 Sex: FPatient Name: DWAIN ESPINOSA Unit No: [id number] EXAMS: CPT CODE: [id number] DUP VEIN KACI 39114 Exam: Bilateral lower extremity venous Doppler ultrasound Location: A1 HISTORY:Swelling of the legs, evaluate for DVT, COMPARISON: None available TECHNIQUE: Static, grayscale, color Doppler and spectral images of the bilateral lower extremity veins were obtained without and with compression and augmentation. FINDINGS: There is normal flow within the bilateral common femo ral, deep femoral, greater saphenous, superficial femoral, popliteal, posterior tibial ,anterior tibial and peroneal veins. There is normal compressibility and augmentation. No filling defects are identified. There is mild subcutaneous edema within the bilateral lower extremities. IMPRESSION: No sonographic evidence for bilateral lower extremity deep venous thrombosis. at 1203 Reported and signed by: Octavio Parker MD CC: Self Referred; Dru Platt MD; Domingo Earl MD Technologist: Pallavi Peralta Probe: Trscr Dt/Tm: 01/07/2021 (1203) by:[email or web address] Electronic Signature Date/Time: 01/07/2021 (1203)Orig Print D/T: S: 01/07/2021 (1207) Name: DWAIN ESPINOSA [facility] Phys: [place] [address] : 1970 Age: 50 Sex: [place] [phone] Loc: [place].ERIMCU Exam Date: 01/07/2021 Status: ADM IN PH: FAX: PAGE 1 Signed Report- US PARACENTESIS W IMAGE 2021-01-07 11:29:00 [facility]OSA : 1970 Sex: FPatient Name: DWAIN ESPINOSA Unit No: [id number] EXAMS: CPT CODE: [id number] US PARACENTESIS W IMAGE [id number] ULTRASOUND-GUIDED PARACENTESIS DICTATION LOCATION: A1 History: New onset of ascites. Indication: Paracentesis is requested for diagnostic and therapeutic purposes. DIAGNOSIS: Successful removal of 2.1 L of serous ascites without complication. Comment: Following the explanation of risks, benefits and alternative treatment options, informed consent was obtained. The patient wasplaced supine on the stretcher and prepped and draped with all elements of maximal sterile barrier technique followed. 1% Xylocaine was used for local anesthesia. Under ultrasound guidance, a multisidehole sheath needle was advanced into the peritoneal cavity from a right lower quadrant access and through this 2.1 L of serous fluid were removed. The needle was removed and the patient left the room in satisfactory condition without complication. at 1129 Reported and signed by: Noel Bach Jr, MD CC: Self Referred; Dru Platt MD; Cale Nina MD Technologist: Genia Edwards Probe: Trscr Dt/Tm: 01/07/2021 (1129) by:Anne Electronic Signature Date/Time: 01/07/2021 (1129)Orig Print D/T: S: 01/07/2021 (1132) Name: DWAIN ESPINOSA [facility] [place] Phys: [place] [address] : 1970 Age: 50 Sex: [place] [phone] Loc: NC.ERIMCU Exam Date: 01/07/2021 Status: ADM IN PH: FAX: PAGE 1 Signed ReportMAGNESIUM 2021-01-07 07:48:00 Test Item Value Reference Range Interpretation Comments MAGNESIUM (test code = MAG) 2.0 mg/dL 1.8-2.4 N THYROID PROFILE [id number] 07:48:00 Test Item Value Reference Range Interpretation Comments T3 UPTAKE (test code = T3UP) 45.0 % 31.0-39.0 H T4 (THYROXINE) (test code = T4) 4.5 ug/dL 4.7-11.4 L T7 (FREE THYROXINE INDEX) (test 2.0 % 1.7-4.2 N code = T7) THYROID STIMULATING HORMONE (test 2.89 mIU/mL 0.36-3.74 N code = TSH) COMPREHENSIVE METABOLIC [id number] 04:37:00 Test Item Value Reference Range Interpretation Comments SODIUM (test code 136 mmol/L 135-145 N = NA) POTASSIUM (test 3.3 mmol/L 3.5-5.1 L code = K) CHLORIDE (test 103 mmol/L 98-107 N code = CL) CARBON DIOXIDE 25 mmol/L 21-32 N (test code = CO2) ANION GAP (test 11.3 2.0-16.0 N code = GAP) GLUCOSE (test code 91 mg/dL 65-99 N = GLU) BLOOD UREA 39 mg/dL 4-23 H NITROGEN (test code = BUN) GLOMERULAR 14 ml/min >60 L The estimated g lomerular FILTRATION RATE filtration r ate is (test code = GFR) computed u singpatient race, age (>18) , sex, and serum creatinin e. If anyof the neede d data elements are mi ssing the Laboratory domenic ot compute an estimation o f the glomerular filt ration rate. CREATININE (test 3.6 mg/dL 0.6-1.5 H code = CREAT) BUN/CREATININE 10.8 12.0-20.0 L RATIO (test code = BUN/CREA) TOTAL PROTEIN 4.3 g/dL 6.4-8.2 L (test code = PROT) ALBUMIN (test code 1.5 g/dL 3.4-5.0 L = ALB) CALCIUM (test code 7.1 mg/dL 8.5-10.1 L = CA) BILIRUBIN TOTAL 3.4 mg/dL 0.2-1.2 H Use of this assay is not (test code = BILT) recommend ed for patients undergoingtreat ment with Eltrombopag due to the potential for falselyelevated results. SGOT/AST (test 57 U/L 15-37 H code = AST) SGPT/ALT (test 42 U/L 6-50 N code = ALT) ALKALINE 133 U/L 45-117 H PHOSPHATASE (test code = ALKP) LACTIC [id number] 04:37:00 Test Item Value Reference Range Interpretation Comments LACTIC ACID (test code = LACT) 1.9 mmol/L 0.4-2.0 N PROTHROMBIN [id number] 04:35:00 Test Item Value Reference Range Interpretation Comments PROTHROMBIN TIME 24.9 SECONDS 9.4-12.5 H PATIENT (test code = PTP) INTERNATIONAL 2.2 RATIO 0.8-1.1 H THE INR IS USE FUL ONLY NORMAL RATIO (test FOR MONIT ORING code = INR) ANTICOAGULANT THERAPY.IT MAY BE UNRELIABLE IN T HE INITIAL PHASE O F ANTICOAGULATION AND IN UNSTABLE PATIEN TS. 2.0-3.0 is the recommended INR for the following:Preve ntion of venous thrombol ism in high-risk patients;treatm ent of venous thrombos is and pulmonary embol ism aftera course o f heparin; preven tion of systemic emboli sm in avariety of con dition, including atria l fibrillation andprosthetic t issue heart valves.2. 5-3.5 is the recommended INR for the following:Prost hetic mechanical hear t values and/or recurren t systemicemboliz ation. CBC W/AUTO [id number] 04:13:00 Test Item Value Reference Range Interpretation Comments WHITE BLOOD CELL (test code = 16.4 10 3/uL 4.5-11.0 H WBC) RED BLOOD CELL (test code = 2.89 10 6/uL 3.50-5.50 L RBC) HEMOGLOBIN (test code = HGB) 8.1 g/dL 12.0-16.0 L HEMATOCRIT (test code = HCT) 27.8 % 37.0-55.0 L MEAN CELL VOLUME (test code = 96 fL 81-102 N MCV) MEAN CELL HGB (test code = 28.0 pg 26.0-34.0 N MCH) MEAN CELL HGB CONCENTRATION 29.1 g/dL 31.0-37.0 L (test code = MCHC) RED CELL DISTRIBUTION WIDTH 18.9 % 11.6-14.4 H (test code = RDW) PLATELET COUNT (test code = 56 10 3/uL 150-400 L PLT) MEAN PLATELET VOLUME (test 12.4 fL 9.0-12.6 N code = MPV) NEUTROPHIL % (test code = NT%) 84.9 % 33.0-76.0 H IMMATURE GRANULOCYTE % (test 3.1 % 0.0-1.0 H code = IG%) LYMPHOCYTE % (test code = LY%) 7.9 % 14.0-56.4 L MONOCYTE % (test code = MO%) 2.8 % 0.0-12.9 N EOSINOPHIL % (test code = EO%) 0.9 % 0.0-7.0 N BASOPHIL % (test code = BA%) 0.4 % 0-2.0 N NUCLEATED RBC % (test code = 0.0 % 0-0.2 N NRBC%) NEUTROPHIL # (test code = NT#) 13.89 10 3/uL 1.5-7.0 H IMMATURE GRANULOCYTE # (test 0.500 x10 3/uL 0.000-0.100 H code = IG#) LYMPHOCYTE # (test code = LY#) 1.30 10 3/uL 1.50-4.00 L MONOCYTE # (test code = MO#) 0.46 10 3/uL 0.20-0.80 N EOSINOPHIL # (test code = EO#) 0.15 10 3/uL 0.0-0.5 N BASOPHIL # (test code = BA#) 0.06 10 3/uL 0.0-0.1 N LACTIC [id number] 01:29:00 Test Item Value Reference Range Interpretation Comments LACTIC ACID (test 2.2 mmol/L 0.4-2.0 H Elevated L actate code = LACT) reported to the following Caregiver:Full Name/Title: KYLIE GARCIA RNby FLACO, on 01/07/21, @ 012 9 LACTIC [id number] 22:09:00 Test Item Value Reference Range Interpretation Comments LACTIC ACID (test 2.2 mmol/L 0.4-2.0 H Elevated L actate code = LACT) reported to the following Careg iver:Full Name/Title: GRETA SCHULZ RN by JASBIR, on 01/06/21, @ 220 4 RN CHECKING TO SEE IF NEEDEDPROTHROMBIN [id number] 18:37:00 Test Item Value Reference Range Interpretation Comments PROTHROMBIN TIME 24.8 SECONDS 9.4-12.5 H PATIENT (test code = PTP) INTERNATIONAL 2.2 RATIO 0.8-1.1 H THE INR IS USE FUL ONLY NORMAL RATIO (test FOR MONIT ORING code = INR) ANTICOAGULANT THERAPY.IT MAY BE UNRELIABLE IN T HE INITIAL PHASE O F ANTICOAGULATION AND IN UNSTABLE PATIEN TS. 2.0-3.0 is the recommended INR for the following:Preve ntion of venous thrombol ism in high-risk patients;treatm ent of venous thrombos is and pulmonary embol ism aftera course o f heparin; preven tion of systemic emboli sm in avariety of con dition, including atria l fibrillation andprosthetic t issue heart valves.2. 5-3.5 is the recommended INR for the following:Prost hetic mechanical hear t values and/or recurren t systemicemboliz ation. THROMBOPLASTIN TIME [id number] 18:37:00 Test Item Value Reference Range Interpretation Comments THROMBOPLASTIN TIME PARTIAL 40.6 SECONDS 25.1-36.5 H (test code = PTT) [id number] 18:06:00 Test Item Value Reference Range Interpretation Comments AMMONIA (test code = AMM) 52 umol/L 11-35 H LIPID PROFILE (CORONARY RISK)2021-01-06 16:56:00 Test Item Value Reference Range Interpretation Comments TRIGLYCERIDES (test code = TRIG) 104 mg/dL 0-149 N CHOLESTEROL (test code = CHOL) 71 mg/dL 0-200 N CHOLESTEROL/HDL RATIO (test code = 6 1-6 N CHOLHDL) HDL CHOLESTEROL (test code = HDL) 11 mg/dL 40-60 L LIPOPROTEIN LDL (test code = LDLC) 35 mg/dL 0-100 N - CT ABD PELVIS W/O [id number] 16:18:00 [facility] ESP[facility]OSA : 1970 Sex: FPatient Name: DWAIN ESPINOSA Unit No: [id number] EXAMS: CPT CODE: [id number] CT ABD PELVIS W/O CONT 93677 Site ID: [id number] CLINICAL HISTORY: Liver failure, edema TECHNIQUE: Axial images of the abdomen and pelvis were obtained from diaphragm tothe pubic symphysis without oral or intravenous contrast. CT dose lowering technique utilized, with adjustment of MA/kV according to patient size and automated exposure control. COMPARISON: None DISCUSSION: Prominent generalized anasarca with large volumes of ascites. No pleural effusion or basilar infiltrate. The heart size is normal. The liver is markedly cirrhotic. The gallbladder is absent. No bilia ry ductal dilatation. The spleen is mildly enlarged, pancreas and adrenal glands are unremarkable. Both kidneys are normal in size. No hydronephrosis, nephrolithiasis or perinephric edema. Vascular structures are normal in caliber and appearance. No ileus or bowel obstruction demonstrated. The uterus and right ovary appear normal. 3.5 cm thin-walled left ovarian cyst is present. No suspicious bony lesions. IMPRESSION: Prominent generalized anasarca with large volumes of ascites at 1618 Reported and signed by: Choco Hart MD CC: Kia Worley FLOOR HAND; Eric Brito Jr, MD Technologist: Leta Negro; Jazzy Gilmore CTDI: 25.95 DLP: 1420.0 Trscr Dt/Tm: 01/06/2021 (1617) by:[email or web address] Electronic Signature Date/Time: 01/06/2021 (1617)Orig Print D/T: S: 01/06/2021 (162) Name: DWAIN ESPINOSA [facility] Phys: [id number] - Kia Worley [address] : 1970 Age: 50 Sex: [place] [address] Loc: [place].ERS Exam Date: 01/06/2021 Status: REG ER PH: FAX: PAGE 1 Signed ReportB-TYPE NATRIURETIC [id number] 15:14:00 Test Item Value Reference Range Interpretation Comments B-TYPE NATRIURETIC PEPTIDE (test 77 pg/mL 0-100 N code = BNP) BASIC METABOLIC [id number] 15:00:00 Test Item Value Reference Range Interpretation Comments SODIUM (test code = 135 mmol/L 135-145 N NA) POTASSIUM (test code 3.0 mmol/L 3.5-5.1 L = K) CHLORIDE (test code = 101 mmol/L 98-107 N CL) CARBON DIOXIDE (test 25 mmol/L 21-32 N code = CO2) ANION GAP (test code 12.0 2.0-16.0 N = GAP) GLUCOSE (test code = 113 mg/dL 65-99 H GLU) BLOOD UREA NITROGEN 35 mg/dL 4-23 H (test code = BUN) GLOMERULAR FILTRATION 15 ml/min >60 L The es timated RATE (test code = glomerular filtration GFR) rate is compute d usingpatient ra ce, age (>18), sex, and serum creatinine. If anyof the needed data elements are mi ssing the Laboratory cannot compute an kb mation of the glomerul ar filtration rate . CREATININE (test code 3.5 mg/dL 0.6-1.5 H = CREAT) BUN/CREATININE RATIO 10.0 12.0-20.0 L (test code = BUN/CREA) CALCIUM (test code = 7.3 mg/dL 8.5-10.1 L CA) DATE OF LAST MENSTRUAL PERIOD: 01/07/20LIVER FUNCTION [id number] 15:00:00 Test Item Value Reference Range Interpretation Comments TOTAL PROTEIN 5.3 g/dL 6.4-8.2 L (test code = PROT) ALBUMIN (test code 1.7 g/dL 3.4-5.0 L = ALB) GLOBULIN (test 3.6 g/dL 2.3-3.5 H code = GLOB) BILIRUBIN TOTAL 4.6 mg/dL 0.2-1.2 H Use of this assay is not (test code = BILT) recommend ed for patients undergoingtreat ment with Eltrombopag due to the potential for falselyelevated results. BILIRUBIN DIRECT 3.1 mg/dL 0.0-0.3 H (test code = BILD) BILIRUBIN INDIRECT 1.5 mg/dL 0.0-0.8 H (test code = BILIND) SGOT/AST (test 65 U/L 15-37 H code = AST) SGPT/ALT (test 53 U/L 6-50 H code = ALT) ALKALINE 170 U/L 45-117 H PHOSPHATASE (test code = ALKP) DATE OF LAST MENSTRUAL PERIOD: 01/07/[id number] 15:00:00 Test Item Value Reference Range Interpretation Comments LIPASE (test code = LIP) 212 U/L 73-393 N DATE OF LAST MENSTRUAL PERIOD: 01/07/20HCG SERUM [id number] 15:00:00 Test Item Value Reference Range Interpretation Comments HCG SERUM QUAL (test code = HCGQL) NEGATIVE NEGATIVE DATE OF LAST MENSTRUAL PERIOD: 01/07/[id number] 15:00:00 Test Item Value Reference Range Interpretation Comments TROPONIN-I (test code = TROPI) < 0.02 ng/mL 0.00-0.07 N DATE OF LAST MENSTRUAL PERIOD: 01/07/20LACTIC [id number] 15:00:00 Test Item Value Reference Range Interpretation Comments LACTIC ACID (test 2.5 mmol/L 0.4-2.0 H Elevated L actate code = LACT) reported to the following Caregiver:Full Name/Title: JAKOB PATTERSON MDby NCLAB.JQ, on 01/06/21, @ 150 0 Coronavirus 2019 nCoV [id number] 14:55:00 Test Item Value Reference Range Interpretation Comments Coronavirus 2019 Negative Negative This test h ad not been FDA nCoV Bedside cleared or appr [place]; This (test code = testhas been au thorized by [id number]) FDA under an E UA for use byauthorized la boratories only for the de tection of nucleicacid fro m SARS-CoV-2, not for any oth er viruses orpathogens. ID NOW COVID-19 assay performed on the [place] [facility] i s a rapid molecular in vi tro diagnostic testutilizing a n isothermal nucleic acid amplificationte chnology intended for th e qualitative detection of nu cleicacid from the SARS-CoV-2 viral RNA in direct nasal,na sopharyngeal or throat swabs from individuals who aresuspected of COVID-19 by their healthcare prov ider withinthe first seven day s of the onset of symptoms. Te sting isauthorized fo r laboratories certified under the ClinicalLaborat ory Improvement [place] ndments of 1987 (CLIA), BASIC METABOLIC [id number] 14:45:00 Test Item Value Reference Range Interpretation Comments SODIUM (test code = NA) mmol/L 135-145 POTASSIUM (test code = K) mmol/L 3.5-5.1 CHLORIDE (test code = CL) mmol/L 98-107 CARBON DIOXIDE (test code = CO2) mmol/L 21-32 ANION GAP (test code = GAP) 2.0-16.0 GLUCOSE (test code = GLU) mg/dL 65-99 BLOOD UREA NITROGEN (test code = BUN) mg/dL 4-23 GLOMERULAR FILTRATION RATE (test code ml/min >60 = GFR) CREATININE (test code = CREAT) mg/dL 0.6-1.5 BUN/CREATININE RATIO (test code = 12.0-20.0 BUN/CREA) CALCIUM (test code = CA) mg/dL 8.5-10.1 DATE OF LAST MENSTRUAL PERIOD: 01/07/20LIVER FUNCTION [id number] 14:45:00 Test Item Value Reference Range Interpretation Comments TOTAL PROTEIN (test code = PROT) g/dL 6.4-8.2 ALBUMIN (test code = ALB) g/dL 3.4-5.0 GLOBULIN (test code = GLOB) g/dL 2.3-3.5 BILIRUBIN TOTAL (test code = BILT) mg/dL 0.2-1.2 BILIRUBIN DIRECT (test code = BILD) mg/dL 0.0-0.3 BILIRUBIN INDIRECT (test code = mg/dL 0.0-0.8 BILIND) SGOT/AST (test code = AST) U/L 15-37 SGPT/ALT (test code = ALT) U/L 6-50 ALKALINE PHOSPHATASE (test code = U/L 45-117 ALKP) DATE OF LAST MENSTRUAL PERIOD: 01/07/[id number] 14:45:00 Test Item Value Reference Range Interpretation Comments LIPASE (test code = LIP) U/L 73-393 DATE OF LAST MENSTRUAL PERIOD: 01/07/20HCG SERUM [id number] 14:45:00 Test Item Value Reference Range Interpretation Comments HCG SERUM QUAL (test code = HCGQL) NEGATIVE NEGATIVE DATE OF LAST MENSTRUAL PERIOD: 01/07/[id number] 14:45:00 Test Item Value Reference Range Interpretation Comments TROPONIN-I (test code = TROPI) ng/mL 0.00-0.07 DATE OF LAST MENSTRUAL PERIOD: 01/07/20CBC W/AUTO [id number] 14:33:00 Test Item Value Reference Range Interpretation Comments WHITE BLOOD CELL (test code = 19.1 10 3/uL 4.5-11.0 H WBC) RED BLOOD CELL (test code = 3.15 10 6/uL 3.50-5.50 L RBC) HEMOGLOBIN (test code = HGB) 9.0 g/dL 12.0-16.0 L HEMATOCRIT (test code = HCT) 29.9 % 37.0-55.0 L MEAN CELL VOLUME (test code = 95 fL 81-102 N MCV) MEAN CELL HGB (test code = 28.6 pg 26.0-34.0 N MCH) MEAN CELL HGB CONCENTRATION 30.1 g/dL 31.0-37.0 L (test code = MCHC) RED CELL DISTRIBUTION WIDTH 19.0 % 11.6-14.4 H (test code = RDW) PLATELET COUNT (test code = 72 10 3/uL 150-400 L PLT) MEAN PLATELET VOLUME (test 11.0 fL 9.0-12.6 N code = MPV) NEUTROPHIL % (test code = NT%) 87.2 % 33.0-76.0 H IMMATURE GRANULOCYTE % (test 2.7 % 0.0-1.0 H code = IG%) LYMPHOCYTE % (test code = LY%) 7.4 % 14.0-56.4 L MONOCYTE % (test code = MO%) 1.5 % 0.0-12.9 N EOSINOPHIL % (test code = EO%) 0.9 % 0.0-7.0 N BASOPHIL % (test code = BA%) 0.3 % 0-2.0 N NUCLEATED RBC % (test code = 0.1 % 0-0.2 N NRBC%) NEUTROPHIL # (test code = NT#) 16.69 10 3/uL 1.5-7.0 H IMMATURE GRANULOCYTE # (test 0.510 x10 3/uL 0.000-0.100 H code = IG#) LYMPHOCYTE # (test code = LY#) 1.42 10 3/uL 1.50-4.00 L MONOCYTE # (test code = MO#) 0.28 10 3/uL 0.20-0.80 N EOSINOPHIL # (test code = EO#) 0.17 10 3/uL 0.0-0.5 N BASOPHIL # (test code = BA#) 0.06 10 3/uL 0.0-0.1 N - XR CHEST 1 [id number] 13:20:00 [facility] D[facility]IN ESPINOSA : 1970 Sex: FPatient Name: DWAIN ESPINOSA Unit No: [id number] EXAMS: CPT CODE: [id number] XR CHEST 1 V 26277 CHEST, SINGLE VIEW DICTATION LOCATION A5BRSOWAT: Abdominal pain. A single view of the chest was obtained at 1:05 PM. No prior exams are available for comparison. FINDINGS: The inspiration is shallow with mild bibasilar atelectasis. The lungs are clear otherwise. Heart size and central pulmonary vasculature are at the upper limits of normal to mildly prominent. No acute skeletal abnormality or pleural effusion are seen. No free air is seen under the diaphragm. IMPRESSION: 1. Shallow inspiration with mild bibasilar atelectasis. 2. Heart size and central pulmonary vasculature at the upper limits of normal to mildly prominent. 3. No other significant findings. at 1320 Reported and signed by: Noel Bach Jr, MD CC: Kia Worley FLOOR HAND; Eric Brito Jr, MD Technologist: Hina Richardson Fluoro Time: DAP (Gy m2): Air Kerma (mGy): Trscr Dt/Tm: 01/06/2021 (1320) by:Anne Electronic Signature Date/Time: 01/06/2021 (1320)Orig Print D/T: S: 01/06/2021 (1323) Name: DWAIN ESPINOSA [facility] [place] Phys: Kia Elizondo [address] : 1970 Age: 50 Sex: [place] [address] Loc: [place].ERS Exam Date: 01/06/2021 Status: REG ER PH: FAX: PAGE 1 Signed ReportHepatitis C [id number] 20:39:00 Test Item Value Reference Range Interpretation Comments HCV 3 The method used in this Genotype, test is RT-PCR and LiPA (test reversehybridiz ation (Line code = Probe) of the 5 ' UTR and ) coreregion of t he HCV genome. The lucas lytical performance lance racteristics of thisassay frey ve been determined by [facility] DiagnosticsInfe ctious Disease. The mo difications have not beencl eared or approved by the FDA. This assay has beenv alidated pursuant to the CLIA regulations and isused for clinical purpos es. For additional info rmation, please refer [email or web address] ion.[employer] /faq/HCVGenotyp ing(This link id being p rovided for informational/e ducational purposes only.) MADDIE (test Performing Lab code = MADDIE) *QDID [facility] [address] [place] [address] Arnie Phillips MD [facility] CenterActin (Smooth Muscle) Antibody, [id number] 01:39:00 Test Item Value Reference Interpretation Comments Range Anti-Smooth Muscle 23 U See Note: H Reference Range:<20 Ab (test code = NEGATI VE> OR ) = 20 POSITIVE Antibodies recognizing act in are the main componentof smo oth muscle antibodi es associated withautoimmune liver disease. Actin antibodie s arefound in approximately 7 5% of patients withautoimmune hepatitis (AIH) type 1, drhzcadswfhkz33 % of patients with autoimmune cholangitis,mary bi mately 30% of patients with primary biliarycirrhosi s, and approximate ly 2% of healthy people.High barb ues are closely correlated with AIH type 1. MADDIE (test code = Performing Lab MADDIE) EZ [facility] [address] [place] [address] Wilder Ochoa MD, PhD, BEATRICE Lab Interpretation Abnormal (test code = 66233-1) [facility] CenterBlbig[facility] Culture - Routine (Right Venipuncture) 2020-10-27 18:00:00 Test Item Value Reference Range Interpretation Comments Result (test code = No growth in 5 days 6463-4) [facility] CenterBLOOD [id number] 18:00:00 Test Item Value Reference Range Interpretation Comments CULTURE (BEAKER) (test No growth in 5 days code = 1095) ANTI-MITOCHONDRIAL AB, REFLEX TO [id number] 10:14:00 Test Item Value Reference Range Interpretation Comments SCAN RESULT (test code = 9567446) Anti-Mitochondrial Ab, reflex to [id number] 10:14:00Scan ResultQUEST DIAGNOSTIC INCORPORATEDCHI [facility] CenterMitochondrial Ab Screen 2020-10-25 12:18:00 Test Item Value Reference Range Interpretation Comments Anti-Mitocho NEGATIVE NEGATIVE This test was developed nd Abs (test and its analyti vasile code = performance 3819203) characteristics havebeen determined by [facility] Centeristrst. [facility] [place].It h as not been cleared or approved by FDA. This as say has been validatedp ursuant to the CLIA reg ulations and is used for clinical purposes. MADDIE (test Performing Lab code = MADDIE) [facility]Z [facility] [address] [place] [address] Wilder Ochoa MD, PhD, BEATRICE [facility] CenterMitochondrial Ab [id number] 12:18:00 Test Item Value Reference Range Interpretation Comments Mitochondrial Ab TNP See_Comment Test Not Titer (test code = Performed . 8379160) Screening test Negative or Not Detected. Titer notperformed. [Automated message] The system which generated this result transmitted reference range : <1:20. The reference range was not used to interpret this result as normal/abnormal . MADDIE (test code = Performing Lab MADDIE) EZ [employer] [address] [address] Wilder Ochoa MD, PhD, BEATRICE [facility] CenterCeruloplasmin2021-01-09 11:45:00 Test Item Value Reference Range Interpretation Comments Ceruloplasmin (test code 27 mg/dL 53 = 20191208) MADDIE (test code = MADDIE) Performing Lab *BARB [facility], [address] [place] [id number] Dahiana Small MD [facility] CenterHepatitis C PCR, [id number] 22:54:00 Test Item Value Reference Range Interpretation Comments HCV PCR, Quantitative [id number] See_Comment H [Auto mated (test code = 14799-8) messag e] The system which generated this result transmitted reference range : <15 IU/mL. The reference range was not used to interpret this result as normal/abnormal . MADDIE (test code = MADDIE) This test uses a Real-Time Polymerase Chain Reaction (RT-PCR) methodology and was performed using MARIXA Ampliprep/MARIXA TaqMan HCV test kit version 2.0 ([employer]). Reportable range for this assay is 15 - 100,000,000 IU per mL (1.18 - 8.00 Log IU/mL). Lab Interpretation Abnormal (test code = 93965-8) [facility] CenterHEPOM[facility] C PCR, [id number] 22:54:00 Test Item Value Reference Range Interpretation Comments HCV NUMERIC RESULT (BEAKER) [id number] IU/mL <15 H (test code = 2700) This test uses a Real-Time Polymerase Chain Reaction (RT-PCR) methodology and was performed using [employer] Ampliprep/MARIXA TaqMan HCV test kit version 2.0 ([employer]).Reportable range for this assay is 15 - 100,000,000 IU per mL (1.18 - 8.00 Log IU/mL).U/S, ABDOMINAL, [id number] 17:32:00Labs to be ordered:->Body Fluid Culture (w/Gram Stain, C\\T\\S) Labs to be ordered:->Cell Count Labs to be ordered:->Glucose+LDH+Protein Labs to be ordered:->Cytology Reason for exam:->diagnostic para for new ascites in pt w/ cirrhosisMODESTO STATE HOSPITALName: [facility]WA[facility]OSA : 1970 Sex: FFINAL REPORT Limited abdominal ultrasound CLINICAL HISTORY: Ascites F INDINGS: A limited abdominal ultrasound was performed and only a trace amount of fluid was seen. Therefore a paracentesis was not performed. Signed: Alex Gonzalez Verified Date/Time: 10/24/2020 17:32:34 Reading Location: [address] Ultrasound Reading Room US abdomen [id number] 17:32:00Interface, External Ris In - 10/24/2020 5:34 PM CSTFINAL REPORT Limited abdominal ultrasound CLINICAL HISTORY: Ascites FINDINGS: A limited abdominal ultrasound was performed and only a trace amount of fluid was seen. Therefore a paracentesis was not performed. Signed: Alex Gonzalez Verified Date/Time: 10/24/2020 17:32:34 Reading Location: [place] [id number] Ultrasound Reading [facility] 2020-10-24 03:23:00 Test Item Value Reference Range Interpretation Comments Protein, Total (test 4.7 See_Comment L [Autom ated code = 2885-2) message] The system which generated this result transmitted reference range : 6.0 - 8.3 gm/dL . The reference range was not used to interpr et this result as normal/abnormal . Albumin (test code = 1.7 g/dL 3.5-5 L 26308-0) Alkaline Phosphatase 114 U/L 40-150 (test code = 6768-6) Total Bilirubin (test 3.0 mg/dL 0.2-1.2 H code = 1975-2) Sodium (test code = 139 meq/L 287-008 9688-2) Potassium (test code 3.2 meq/L 3.5-5.1 L = 2823-3) Chloride (test code = 106 meq/L 98-107 2075-0) CO2 (test code = 27 meq/L 22-29 2028-9) BUN (test code = 12 mg/dL 7-21 3094-0) Creatinine (test code 0.78 mg/dL 0.57-1.25 = 2160-0) Glucose (test code = 127 mg/dL 70-105 H 2345-7) Calcium (test code = 7.0 mg/dL 8.4-10.2 L 52542-5) AST (test code = 114 U/L 5-34 H 1920-8) ALT (test code = 58 U/L 6-55 H 1742-6) EGFR (test code = 78 mL/min/1.73 [place] [address]-2) NOT ACCURATE CREATININE CLEARANCE IN PREDICTING GLOMERULAR FILTRATION RATE . ESTIMATED GFR I S NOT APPLICABLE FOR DIALYSIS PATIENTS. MADDIE (test code = MADDIE) Sheet Hanger ID - PIAYA LSpecimen slightly icteric Lab Interpretation Abnormal (test code = 66351-6) [facility] CenterCOMPREHENVE METABOLIC [id number] 03:23:00 Test Item Value Reference Range Interpretation [...] S NOT APPLICABLE FOR DIALYSIS PATIEN TS. Sheet [employer]anger ID - PIAYA LSpecimen slightly ictericProthrombin time/[id number] 03:08:00 Test Item Value Reference Interpretation Comments Range Protime (test code = 19.8 See_Comment H [Autom ated 2672-2) message] The system which generated this result transmitted reference range : 11.9 - 14.2 seconds. The reference range was not used to interpret this result as normal/abnormal . INR (test code = 1.75 See_Comment [Automated 6651-6) message] The system which generated this result [...] valves. Lab Interpretation Abnormal (test code = 87639-7) [facility] CenterPROTHROMBIN TIME/[id number] 03:08:00 Test Item Value Reference Range Interpretation [...] heart valves.CBC with platelet count + automated [id number] 02:45:00 Test Item Value Reference Range Interpretation Comments WBC (test code = 6690-2) 5.3 See_Comment [A utomated message] The system [employer] generated this result transmitted ref erence range: 3.5 - 10 .5 K/L. The refe rence range was not u sed to interpret this result as normal/abnor mal. RBC (test code = 789-8) 3.40 See_Comment L [Au tomated message] The system [employer] generated this result transmitted ref erence range: 3.93 - 5 .22 M/L. The refe rence range was not u sed to interpret this result as normal/abnor mal. MCHC (test code = 786-4) 30.3 See_Comment L [A utomated message] The system [employer] generated this result transmitted ref erence range: [...] L [Aut omated message] 777-3) The system [employer] generated this result transmitted ref erence range: 150 - 45 0 K/CU MM. The referen ce range was not u sed to interpret this result as normal/abnor mal. MPV (test code = 13.0 fL 9.4-12.3 H 03200-8) nRBC (test code = 413) 0 See_Comment [Aut omated message] The system [employer] generated this result transmitted ref erence range: [...] See_Comment [Aut omated message] 670) The system [employer] generated this result transmitted ref erence range: 1.56 - 6 .13 K/L. The refe rence range was not u sed to interpret this result as normal/abnor mal. # Lymphs (test code = 1.81 See_Comment [Auto mated message] 414) The system [employer] generated this result transmitted ref erence range: 1.18 - 3 .74 K/L. The refe rence range was not u sed to interpret this result as normal/abnor mal. # Monos (test code = 0.54 See_Comment H [Autom ated message] 415) The system [employer] generated this result transmitted ref erence range: 0.24 - 0 .36 K/L. The refe rence range was not u sed to interpret this result as normal/abnor mal. # Eos (test code = 416) 0.14 See_Comment [Au tomated message] The system [employer] generated this result transmitted ref erence range: 0.04 - 0 .36 K/L. The refe rence range was not u sed to interpret this result as normal/abnor mal. # Baso (test code = 417) 0.05 See_Comment [A utomated message] The system [employer] generated this result transmitted ref erence range: 0.01 - 0 .08 K/L. The refe rence range was not u sed to interpret this result as normal/abnor mal. Immature 0 % 0-1 Granulocytes-Relative (test code = 2801) Lab Interpretation (test Abnormal code = 83125-4) [facility] W/PLT COUNT & AUTO [id number] 02:45:00 Test Item Value Reference Range Interpretation [...] (BEAKER) (test code = 2801) ECG 12 [id number] 15:18:12Interface, External Ris In - 10/23/2020 3:18 PM CSTVentricular Rate 83 BPMAtrial Rate 83 BPMP-R Interval 110 msQRS Duration 76 msQ-T Interval 432 msQTC Calculation(Bazett) 507 msP Payette 61 degreesR Payette 28 degreesT Payette 34 degreesSinus rhythm with short PRLow voltage QRSProlonged QTAbnormal ECGNo previous ECGs availableConfirmed by MD Farnsworth Roberto ([id number]) on 10/23/2020 3:18:11 [facility] 12:56[facility]00 Test Item Value Reference Range Interpretation Comments Ferritin (test code = 71.00 ng/mL 5275 2276-4) MADDIE (test code = MADDIE) Sheet Hanger ID - AAHAMID Lab Interpretation (test Normal code = 52146-4) [facility] CenterF[facility], [id number] 12:56:00 Test Item Value Reference Range Interpretation Comments Folate (test code = 12.30 ng/mL See_Comment [Automa joseph 2284-8) message] The system which generated this result transmit joseph reference range : >=7.00. The reference range was not used to interpret this result as normal/abnormal . MADDIE (test code = MADDIE) Sheet Hanger ID - AADIXIEID Lab Interpretation Normal (test code = 73854-2) [facility] CenterFERRITIN2021-[facility]-07 12:56:00 Test Item Value Reference Range Interpretation Comments FERRITIN (BEAKER) (test code = 71.00 ng/mL 5.00-275.00 361) Sheet Hanger ID - GANESHHAMIDFOLATE, [id number] 12:56:00 Test Item Value Reference Range Interpretation Comments FOLATE (BEAKER) (test code = 362) 12.30 ng/mL >=7.00 Sheet Hanger ID - GANESHHAMIDAnti-Nuclear Antibody (LUCAS)2020-10-23 10:30:00 Test Item Value Reference Range Interpretation Comments LUCAS (test code = 50592-6) Negative Negative MADDIE (test code = MADDIE) Test performed by IFA method.Test performed by IFA method. Lab Interpretation (test Normal code = 50355-2) [facility] CenterANTI-NUCLEAR ANTIBODY (LUCAS)2020-10-23 10:30:00 Test Item Value Reference Range Interpretation Comments ANTI-NUCLEAR ANTIBODY (LUCAS) (BEAKER) Negative Negative (test code = 418) Test performed by IFA method.Test performed by IFA method.Hepatitis panel, acute 2020-10-23 10:06:00 Test Item Value Reference Range Interpretation Comments Hep A IgM (test code = Nonreactive Nonreactive 24360-1) Hep B C IgM (test code = Nonreactive Nonreactive 58536-1) Hepatitis C Ab (test Reactive Nonreactive A code = 90062-0) HBsAg Screen (test code Nonreactive Nonreactive = 5195-3) MADDIE (test code = MADDIE) Sheet Hanger ID - [place] M Lab Interpretation (test Abnormal code = 22268-6) [facility] CenterHEPATITIS PANEL, [id number] 10:06:00 Test Item Value Reference Range Interpretation Comments HEPATITIS A IGM ANTIBODY (BEAKER) Nonreactive Nonreactive (test code = 498) HEPATITIS B CORE IGM ANTIBODY Nonreactive Nonreactive (BEAKER) (test code = 645) HEPATITIS C ANTIBODY (BEAKER) Reactive Nonreactive A (test code = 367) HEPATITIS B SURFACE ANTIGEN (2) Nonreactive Nonreactive (BEAKER) (test code = 2585) Sheet Hanger ID - [place] MVitamin [id number] 09:44:00 Test Item Value Reference Range Interpretation Comments Vitamin B12 (test code = 1494 pg/mL 213-816 H 2132-9) MADDIE (test code = MADDIE) Sheet Hanger ID - [place] M Lab Interpretation (test Abnormal code = 32405-6) [facility] CenterVITAMIN [id number] 09:44:00 Test Item Value Reference Range Interpretation Comments VITAMIN B12 (BEAKER) (test code = 1494 pg/mL 213-816 H 774) Sheet Hanger ID - [place] MAlpha fetoprotein (AFP), tumor [id number] 08:27:00 Test Item Value Reference Range Interpretation Comments Alpha-Fetoprotein <2.0 See_Comment [Automate d (test code = 1834-1) message ] The system which generated this result transmit joseph reference range : <10.0 ng/mL. Th e reference range was not used to interpret this result as normal/abnormal . MADDIE (test code = MADDIE) Sheet Hanger ID - [place] M Lab Interpretation Normal (test code = 24409-7) [facility] CenterALPHA FETOPROTEIN (AFP), TUMOR [id number] 08:27:00 Test Item Value Reference Range Interpretation Comments ALPHA-FETOPROTEIN (BEAKER) (test code < ng/mL <10.0 = 1094) Sheet Hanger ID - [place] MHepatitis A antibody, [id number] 07:42:00 Test Item Value Reference Range Interpretation Comments Hep A IgG (test code = Reactive Nonreactive A 34926-9) MADDIE (test code = MADDIE) Sheet Hanger ID - [place] M Lab Interpretation (test Abnormal code = 15223-0) [facility] CenterHEPATITIS A ANTIBODY, [id number] 07:42:00 Test Item Value Reference Range Interpretation Comments HEPATITIS A IGG ANTIBODY (BEAKER) Reactive Nonreactive A (test code = 2797) Sheet Hanger ID - [place] MCOMPREHENSIVE METABOLIC [id number] 07:41:00 Test Item Value Reference Range Interpretation [...] S NOT APPLICABLE FOR DIALYSIS PATIEN TS. Sheet Hanger ID - [place] MSpecimen slightly uulroynMdcpzwvvp0917-12-70 07:11:00 Test Item Value Reference Range Interpretation Comments Magnesium (test code = 1.8 mg/dL 1.6-2.6 27199-6) MADDIE (test code = MADDIE) Sheet Hanger ID - [place] M Lab Interpretation (test Normal code = 60553-9) [facility] CenterMAGNESIUM2021-01-07 07:11:00 Test Item Value Reference Range Interpretation Comments MAGNESIUM (BEAKER) (test code = 1.8 mg/dL 1.6-2.6 627) Sheet Hanger ID - [place] MHepatitis B core antibody, [id number] 07:01:00 Test Item Value Reference Range Interpretation Comments Hep B Core Total Ab Nonreactive Nonreactive (test code = 36759-5) MADDIE (test code = MADDIE) Sheet Hanger ID - [place] M Lab Interpretation (test Normal code = 57630-4) [facility] CenterHEPATITIS B CORE ANTIBODY, [id number] 07:01:00 Test Item Value Reference Range Interpretation Comments HEPATITIS B CORE TOTAL ANTIBODY Nonreactive Nonreactive (BEAKER) (test code = 497) Sheet Hanger ID - [place] Rosa M, TIBC, % sat. (without ferritin)2020-10-23 06:37:00 Test Item Value Reference Range Interpretation Comments Iron (test code = 2498-4) 129.0 ug/dL 40-160 TIBC (test code = 2500-7) 178 ug/dL 250-450 L Iron % Saturation (test 72 % 20-55 H code = 2502-3) MADDIE (test code = MADDIE) Sheet Hanger ID - [place] M Lab Interpretation (test Abnormal code = 05676-1) [facility] CenterIRON, TIBC, % SAT. (WITHOUT FERRITIN)2020-10-23 06:37:00 Test Item Value Reference Range Interpretation Comments IRON (BEAKER) (test code = 547) 129.0 ug/dL 40.0-160.0 TOTAL IRON BINDING CAPACITY 178 ug/dL 250-450 L (BEAKER) (test code = 769) IRON % SATURATION (2) (BEAKER) 72 % 20-55 H (test code = 2590) Sheet Hanger ID - [place] FWlyfs-5-jdcmcstiwvo1053-01-07 06:36:00 Test Item Value Reference Range Interpretation Comments A-1 Antitrypsin (test code 102.40 mg/dL 90-200 = 1825-9) MADDIE (test code = MADDIE) Sheet Hanger ID - [place] M Lab Interpretation (test Normal code = 12538-9) [facility] CenterALPHA-1-[id number] 06:36:00 Test Item Value Reference Range Interpretation Comments ALPHA-1 ANTITRYPSIN (BEAKER) 102.40 mg/dL 90.00-200.00 (test code = 502) Sheet Hanger ID - [place] MPROTHROMBIN TIME/[id number] 06:21:00 Test Item Value Reference Range Interpretation [...] is2.5-3.5 for patients wiht mechanical heart valves.Reticulocyte [id number] 05:50:00 Test Item Value Reference Range Interpretation Comments % Retic (test code = 4.6 % 0.5-1.7 H 44464-8) MADDIE (test code = MADDIE) Sheet Hanger ID - 6000 Lab Interpretation (test Abnormal code = 97799-0) [facility] CenterRETICULOCYTE [id number] 05:50:00 Test Item Value Reference Range Interpretation Comments RETICULOCYTE COUNT PCT (BEAKER) (test 4.6 % 0.5-1.7 H code = 575) Sheet Hanger ID - 6000Hemoglobin and [id number] 05:49:00 Test Item Value Reference Range Interpretation Comments Hemoglobin (test code = 9.0 See_Comment L [Au tomated message] 786-4) The system [employer] generated this result transmitted ref erence range: 11.2 - 1 5.7 GM/DL. The refe rence range was not u sed to interpret this result as normal/abnor mal. Hematocrit (test code = 30.0 % 34.1-44.9 L 4544-3) Lab Interpretation (test Abnormal code = 77326-9) [facility] CenterHEMOGLOBIN AND [id number] 05:49:00 Test Item Value Reference Range Interpretation Comments HEMOGLOBIN (BEAKER) (test code = 9.0 GM/DL 11.2-15.7 L 410) HEMATOCRIT (BEAKER) (test code = 30.0 % 34.1-44.9 L 411) CBC W/PLT COUNT & AUTO [id number] 05:49:00 Test Item Value Reference Range Interpretation [...] (test code = 2801) U/S, ABDOMINAL, WITH [id number] 21:58:00Reason for exam:->ascites, cirrhosisJ[facility] CENTERName: DWAIN ESPINOSA : 1970 [...] Verified Date/Time: 10/22/2020 21:58:54 US abdominal with [id number] 21:58:00Interface, External Ris In - 10/23/2020 2:18 [...] Mila Richardson MDReport Verified Date/Time: 10/22/2020 21:58:54 [facility]2020-10-22 20:15:00 Test Item Value Reference Range Interpretation Comments SARS-COV2/RT-PCR Negative Not Detected, (test code = Negative, See 58370-6) external report for linked test SARS-COV-2 [facility] PERFORMING LAB (test code = 68007-9) MADDIE (test code = Negative result for [...] of the Act. Fact Sheet for Healthcare Providers:https://www.qu idel.[employer]/sites/default/f christina/product/documents/F act_Sheet_HC_Providers_L hin_YMIC-XyP-3.pdf Fact Sheet for Healthcare Patients:https://www.[employer]/sites/default/fi les/product/documents/Fa ct_Sheet_Patients_Ly_S ARS-CoV-2.pdf Performing Laboratory:[facility]ARS-COV2/RT-PCR ([facility])2020-10-22 20:15:00 Test Item Value Reference Range Interpretation Comments SARS-COV2/RT-PCR (test Negative Not Detected, Negative, code = 7820524) See external report for linked test SARS-COV-2 PERFORMING LAB [facility] (test code = 3272671) Negative result for this test determines that [...] 564(g) of the Act.Fact Sheet for Healthcare Providers:https://www.[employer]/sites/default/files/product/documents/Fact_Shee k_WX_Xnnmnuorm_Yyze_QROF-RtJ-2.pdfFact Sheet for Healthcare Patients:https://www.[employer]/sites/default/files/product/ documents/Frfh_Ehjxb_Phiwrpco_Yrth_HDJS-TlY-3.pdfPerforming Laboratory:[facility], [place] [address]Onihfunwzw w/Microscopic + Reflex to [id number] 17:46:00 Test Item Value Reference Range Interpretation Comments Color, UA (test code Yellow = 5778-6) Clarity, UA (test Hazy code = 5767-9) Specific [place], UA 1.024 1.001-1.035 (test code = 5811-5) pH, UA (test code = 5.5 5.0-8.0 5803-2) Protein, UA (test 20 mg/dL Negative A code = 01375-9) Glucose, UA (test Negative Negative code = 365) Ketones, UA (test Negative Negative code = 2514-8) Bilirubin, UA (test Negative Negative code = 29975-4) Blood, UA (test code Small Negative A = 11757-2) Nitrite, UA (test Negative Negative code = 5802-4) Leukocytes, UA (test Negative Negative code = 5799-2) Urobilinogen, UA 0.2 mg/dL 0.2-1 (test code = 42554-4) RBC, UA (test code = 1 See_Comment [Autom ated 00345-4) message] The system which generated this result [...] 9 See_Comment [Automate d (test code = 73749-7) messag e] The system which generated this result transmit joseph reference range : /HPF. The reference range was not used to interpret this result as normal/abnormal . Specimen Source (test code = 2795) MADDIE (test code = MADDIE) Sheet Hanger ID - tech Lab Interpretation Abnormal (test code = 93408-0) [facility] CenterUR[facility] W/ REFLEX URINE [id number] 17:46:00 Test Item Value Reference Range Interpretation [...] = 516) SOURCE(BEAKER) (test code = 2795) Sheet Hanger ID - techRAD, CHEST, 1 VIEW, NON [id number] 15:35:00Reason for exam:->abd painShould this be performed at the bedside?->Yes [facility] 1970 Sex: FFINAL REPORT CHEST AP PORTABLE History provided: Abdominal pain Heart size magnified by projection. Lungs grossly clear and vascularity normal. Signed: Huang Garciaeport Verified Date/Time: 10/22/2020 15:35:51 Reading Location: [facility] Radiology Reading Room XR chest 1 view portable / [id number] 15:35:00Interface, External Ris In - 10/22/2020 3:38 PM CSTFINAL REPORT CHEST AP PORTABLE History provided: Abdominal pain Heart size magnified by projection. Lungs grossly clear and vascularity normal. Signed: Huang Garcia Verified Date/Time: 10/22/2020 15:35:51 Reading Location: [facility] Radiology Reading [facility] ([facility] [place]2020-10-22 14:52:00 Test Item Value Reference Range Interpretation Comments Troponin I (test code = 0.01 ng/mL 0-0.03 77943-7) MADDIE (test code = MADDIE) Troponin I [...] ADMIN Lab Interpretation (test Normal code = 33416-0) [facility] CenterTROPONIN [id number] 14:52:00 Test Item Value Reference Range Interpretation [...] failure, acidosis, acute neurological disease, and persistent tachyarrhythmia.Sheet Hanger ID - ADMINBasic metabolic panel (Na, K+, Cl, CO2, Glu, Ca, BUN, Cr)2020-10-22 14:48:00 Test Item Value Reference Range Interpretation Comments Sodium (test code = 141 meq/L 512-075 6139-2) Potassium (test code 3.1 meq/L 3.5-5.1 L = 2823-3) Chloride (test code 107 meq/L 98-107 = 2075-0) CO2 (test code = 30 meq/L 22-29 H 2028-9) BUN (test code = 12 mg/dL 7-21 3094-0) Creatinine (test 0.65 mg/dL 0.57-1.25 code = 2160-0) Glucose (test code = 90 mg/dL 70-105 2345-7) Calcium (test code = 7.0 mg/dL 8.4-10.2 L 07664-7) EGFR (test code = 96 mL/min/1[place]73 [place] [address]-6) m NOT ACCURATE CREATININE CLEARANCE IN PREDICTING GLOMERULAR FILTRATION RATE . ESTIMATED GFR I S NOT APPLICABLE FOR DIALYSIS PATIENTS. MADDIE (test code = Sheet Hanger ID - MADDIE) ADMINSpecimen slightly icteric Lab Interpretation Abnormal (test code = 48643-6) [facility] CenterLiver [id number] 14:48:00 Test Item Value Reference Range Interpretation Comments Protein, Total (test 4.6 See_Comment L [Autom ated code = 2885-2) message] The system which generated this result transmitted reference range : 6.0 - 8.3 gm/dL . The reference range was not used to interpret this result as normal/abnormal . Albumin (test code = 1.7 g/dL 3.5-5 L 09835-7) Total Bilirubin 3.5 mg/dL 0.2-1.2 H (test code = 1974-2) Bilirubin, Direct 1.7 mg/dL 0.1-0.5 H (test code = 1967-7) Alkaline Phosphatase 106 U/L 40-150 (test code = 6768-6) AST (test code = 132 U/L 5-34 H 1920-8) ALT (test code = 61 U/L 6-55 H 1742-6) MADDIE (test code = Sheet Hanger ID - MADDIE) ADMINSpecimen slightly icteric Lab Interpretation Abnormal (test code = 40482-5) [facility] CenterBASI METABOLIC [id number] 14:48:00 Test Item Value Reference Range Interpretation [...] S NOT APPLICABLE FOR DIALYSIS PATIEN TS. Sheet Hanger ID - ADMINSpecimen slightly ictericHEPATIC FUNCTION [id number] 14:48:00 Test Item Value Reference Range Interpretation [...] code = 61 U/L 6-55 H 347) Sheet Hanger ID - ADMINSpecimen slightly ictericCBC W/PLT COUNT & AUTO [id number] 14:28:00 Test Item Value Reference Range Interpretation [...] 0-1 PERCENT (BEAKER) (test code = 2801) [id number] 00:00:00Ordered by an unspecified provider.[facility]
[2021-02-15 01:58] LABS: Absolute Lymphocytes (CBC) 0.3 K/uL (0.7-4.9); Basophils % 0.1 % (0-1.3); Lymphocytes % 1.4 % (15.3-44.8); MPV 10.4 fL (7.6-11.3); RBC Red Blood Cell Count 2.77 M/uL (3.86-4.86)
[2021-02-15 02:14] LABS: Protime INR 2.09
[2021-02-15 02:19] LABS: ALT/SGPT 40 U/L (12-78); Albumin 1.4 g/dL (3.4-5.0); Alkaline Phosphatase 90 U/L (45-117); BUN Blood Urea Nitrogen 15 mg/dL (7-18); Bicarbonate 23 mmol/L (21-32); Bilirubin Direct 2.6 mg/dL (0-0.2); Bilirubin Total 4.9 mg/dL (0.2-1.0); Glucose Level 89 mg/dL (74-106); Protein, Total 4.3 g/dL (6.4-8.2); Sodium Level 143 mmol/L (136-145); Troponin (Emerg Dept Use Only) 0.03 ng/mL (0.0-0.045)
[2021-02-15 02:20] LABS: AST/SGOT 75 U/L (15-37)
[2021-02-15 02:22] LABS: Potassium 2.6 mmol/L (3.5-5.1)
[2021-02-15 02:30] LABS: Urine Blood 2+ (Negative); Urine Glucose Negative (Negative); Urine Protein Trace (Negative); Urine Specific Gravity 1.015 (1.005-1.030); Urine pH 5.5 (5.0-7.0)
[2021-02-15] MEDS ORDERED: D5 0.9 NS 1,000 ML IV ONE (02:39)
[2021-02-15] MEDS ORDERED: LACTULOSE 20 GM/30 ML UCUP ONE (02:39)
[2021-02-15 02:51] LABS: Urine Specific Gravity/Preg 1.015 (1.005-1.030)
[2021-02-15 02:59] LABS: Creatine Phosphokinase 197 U/L (26-192); NT PRO-BNP 3304 pg/mL (<125)
[2021-02-15 02:59] LABS: Barbiturates NEGATIVE (NEGATIVE); Benzodiazepines NEGATIVE (NEGATIVE); Cocaine NEGATIVE (NEGATIVE); METHAMPHETAM POSITIVE (NEGATIVE); Methadone NEGATIVE (NEGATIVE); Opiates NEGATIVE (NEGATIVE); Phencyclidine NEGATIVE (NEGATIVE); THC Cannibis NEGATIVE (NEGATIVE)
[2021-02-15 03:02] LABS: Magnesium 1.3 mg/dL (1.8-2.4)
[2021-02-15] MEDS ORDERED: CEFEPIME/SWI 1gm 10 ML ONE (03:08)
[2021-02-15] MEDS ORDERED: NA CHLORIDE 0.9% 250 ML ONE ×2 (03:08→14:29)
[2021-02-15] MEDS ORDERED: VANCOMYCIN 1 GM/VIAL ONE (03:08)
[2021-02-15] MEDS ORDERED: KCL 20 MEQ/100 mL IVPB 20 MEQ/100 ML BAG IV ONE (03:09)
[2021-02-15] MEDS ORDERED: Magnesium Sulfate 2gm IVPB 2 G/50 ML BAG IV ONE (03:31)
--- NOTE | 2021-02-15 04:29 | EDPHYS ---
Physician Documentation [facility] Name: Lorena Hansen Age: 50 yrs Sex: Female : 1970 Arrival Date: 02/15/2021 Time: 01:08 Bed 2 Private MD: ED Physician Parth Parra HPI: 02/15 01:18 This 50 yrs old Female presents to ER via EMS with complaints of Altered mh7 Mental Status - Hepatic Encephalopathy. 01:18 The patient presents with decreased mental status. Onset: The symptoms/episode mh7 began/occurred today, at an unknown time. Possible causes: possible hepatic encephalopathy. Associated signs and symptoms: The patient has no apparent associated signs or symptoms. Current symptoms: In the emergency department the patient's symptoms are unchanged from the initial presentation, despite EMS interventions. The patient has experienced similar episodes in the past, multiple times. Per EMS patient boyfriend found her unresponsive in a hotel room.. Historical: - Allergies: 01:14 PENICILLINS; iw 01:14 Zofran; iw - Home Meds: 01:14 Lactulose Oral [Active]; iw - PMHx: 01:14 Cirrhosis; COLON CA; iw - Immunization history:: Adult Immunizations unknown. - Social history:: Smoking status: unknown. ROS: 01:18 Unable to obtain ROS due to altered mental status. mh7 Exam: 01:18 Head/Face: Normocephalic, atraumatic. mh7 01:18 Neck: Trachea midline, no thyromegaly or masses palpated, and no cervical lymphadenopathy. Supple, full range of motion without nuchal rigidity, or vertebral point tenderness. No Meningismus. Chest/axilla: Normal chest wall appearance and motion. Nontender with no deformity. No lesions are appreciated. 01:18 Respiratory: Lungs have equal breath sounds bilaterally, clear to auscultation and percussion. No rales, rhonchi or wheezes noted. No increased work of breathing, no retractions or nasal flaring. Abdomen/GI: Soft, non-tender, with normal bowel sounds. No distension or tympany. No guarding or rebound. No evidence of tenderness throughout. Back: No spinal tenderness. No costovertebral tenderness. Full range of motion. 01:18 Constitutional: The patient appears AMS 01:18 Eyes: Periorbital structures: appear normal, Pupils: equal, round, and reactive to light and accomodation, Extraocular movements: intact throughout, Conjunctiva: normal, Sclera: icterus, is present. 01:18 Cardiovascular: Rate: tachycardic, Rhythm: regular, Pulses: no pulse deficits are appreciated, Heart sounds: normal, normal S1and S2, Edema: is not appreciated, JVD: is not appreciated. 01:18 Skin: juandiced. 04:23 Neuro: Orientation: unable to test, AMS, Mentation: unable to test, AMS, Memory: unable mh7 to test, AMS, Cranial nerves: unable to test, AMS, Cerebellar function: unable to test, AMS, Motor: unable to test, AMS, Sensation: unable to test, AMS, Gait: not tested. seizure activity, is not displayed by the patient, Abnormal movements: there are no abnormal movements. Vital Signs: 01:09 BP 115 / 71; Pulse 114; Resp 20 S; Temp 98.4(TE); Pulse Ox 96% on R/A; Weight 90.72 kg; iw Height 5 ft. 5 in. (165.10 cm); 03:30 BP 102 / 71; Pulse 100; Resp 18; Pulse Ox 97% ; ea 04:00 BP 107 / 86; Pulse 100; Resp 18; Pulse Ox 97% on R/A; ea 05:00 BP 103 / 75; Pulse 101; Resp 17; Pulse Ox 99% ; ea 06:30 BP 104 / 71; Pulse 103; Resp 17; Pulse Ox 98% ; ea 01:09 Body Mass Index 33.28 (90.72 kg, 165.10 cm) iw MDM: 04:23 Differential Diagnosis: electrolyte abnormality, alcohol intoxication, hypoglycemia, mh7 intracranial bleed, overdose, pneumonia, sepsis, UTI, volume depletion, Hepatic Encephalopathy. Data reviewed: vital signs, nurses notes, EMS record, old medical records, lab test result(s), cardiac enzymes, CBC, electrolytes, urinalysis, urine drug screen, EKG, radiologic studies, CT scan, plain films. Data interpreted: Pulse oximetry: on room air is 96 %. Interpretation: normal. Counseling: I had a detailed discussion with the patient and/or guardian regarding: the historical points, exam findings, and any diagnostic results supporting the discharge/admit diagnosis, lab results, radiology results, the need for further work-up and treatment in the hospital. Response to treatment: the patient's symptoms have mildly improved after treatment. 04:29 Patient medically screened. [facility] 02/15 01:13 Order name: Acetaminophen [facility] 02/15 01:13 Order name: Basic Metabolic Panel [facility] 02/15 01:13 Order name: CBC with Diff [facility] 02/15 01:13 Order name: ETOH Level; Complete Time: 02:23 [facility] 02/15 01:13 Order name: Hepatic Function; Complete Time: 03:03 [facility] 02/15 01:13 Order name: PT-INR; Complete Time: 02:23 [facility] 02/15 01:13 Order name: Ptt, Activated; Complete Time: 02:23 [facility] 02/15 01:13 Order name: Salicylate; Complete Time: 02:23 [facility] 02/15 01:13 Order name: Urine Drug Screen; Complete Time: 03:03 [facility] 02/15 01:13 Order name: Troponin (emerg Dept Use Only); Complete Time: 03:03 [facility] 02/15 01:13 Order name: AMMONIA; Complete Time: 02:12 [facility] 02/15 01:14 Order name: Acetaminophen Level; Complete Time: 03:03 EDMS 02/15 01:14 Order name: Basic Metabolic Panel; Complete Time: 03:03 EDMS 02/15 01:39 Order name: Glucose, Ancillary Testing; Complete Time: 02:12 EDMS 02/15 02:12 Order name: Manual Differential [facility] 02/15 02:27 Order name: Type And Screen [facility] 02/15 02:27 Order name: Type and Screen; Complete Time: 04:40 EDMS 02/15 02:28 Order name: PROBNP [facility] 02/15 02:28 Order name: Magnesium; Complete Time: 03:03 EDMS 02/15 02:30 Order name: Urine Dipstick-Ancillary; Complete Time: 02:31 EDMS 02/15 02:31 Order name: Urine --Ancillary (enter results); Complete Time: 03:03 tt3 02/15 02:31 Order name: NT PRO-BNP; Complete Time: 03:03 EDMS 02/15 02:37 Order name: Creatine Phosphokinase; Complete Time: 03:03 EDMS 02/15 03:02 Order name: Blood Culture Adult (2) la1 02/15 04:14 Order name: SARS-COV-2 RT PCR; Complete Time: 04:40 EDMS 02/15 04:30 Order name: Procalcitonin la1 02/15 01:13 Order name: EKG; Complete Time: 01:15 [facility] 02/15 01:13 Order name: EKG - Nurse/Tech; Complete Time: 01:43 [facility] 02/15 01:13 Order name: IV Saline Lock; Complete Time: 01:30 [facility] 02/15 01:13 Order name: Labs collected and sent; Complete Time: 01:30 [facility] 02/15 01:13 Order name: Urine Dipstick-Ancillary (obtain specimen); Complete Time: 01:43 [facility] 02/15 01:16 Order name: Chest Single View XRAY [facility] 02/15 01:18 Order name: CT Head C Spine [facility] 02/15 02:32 Order name: CT Chest Abdomen Pelvis W/O Contrast [facility] 02/15 04:31 Order name: Procalcitonin EDMS Administered Medications: 02:00 Drug: Lactulose 200 grams Route: NE; ea 04:32 Follow up: Response: No adverse reaction ea 02:24 Drug: D5-NS 1000 ml Route: IV; Rate: bolus; Site: left antecubital; ea 03:10 Drug: vancoMYCIN 1 grams Route: IVPB; Infused Over: 2 hrs; Site: left antecubital; ea 03:30 Drug: Magnesium Sulfate 2 grams Route: IVPB; Infused Over: 2 hrs; Site: right ea antecubital; 03:31 Drug: Potassium Chloride 20 mEq Route: IV; Rate: per protocol; Site: right antecubital; ea 05:18 Drug: Cefepime 1 grams Route: IVPB; Rate: 200 ml/hr; Infused Over: 30 mins; Site: left ea antecubital; Disposition: 02/15/21 04:29 Hospitalization ordered by Bhavesh Pineda for Inpatient Admission. Preliminary diagnosis are Hepatic Encephalopathy, Leukocytosis. - Bed requested for Telemetry/MedSurg (Inpatient). - Status is Inpatient Admission. hb - Condition is Stable. - Problem is an acute exacerbation. - Symptoms have improved. Signatures: Dispatcher [employer] EDMS Princess Shepard RN RN iw Norman Rodriguez, SEQUINS STRINGER-C SEQUINS STRINGER-Cla1 Ciera Gilmore RN RN Helena Muir RN RN Alicia Stevenson RN Parth Yu ea, MD MD 7 Corrections: (The following items were deleted from the chart) 01:43 01:13 Suicide Screening ([place]) ordered. [facility] iw 02:03 01:16 CORONAVIRUS+MR.LAB.BRZ ordered. EDMS EDMS 02:28 02:26 MAGNESIUM+C.LAB.BRZ ordered. EDUT EDMS 02:31 02:28 NT PRO-BNP ordered. EDMS EDMS 02:37 02:32 CREATINE PHOSPHOKINASE+C.LAB.BRZ ordered. EDUT EDMS 04:54 04:29 Hospitalization Ordered by Bhavesh Pineda DO for Inpatient Admission. Preliminary diagnosis is Hepatic Encephalopathy; Leukocytosis. Bed requested for Telemetry/MedSurg (Inpatient). Status is Inpatient Admission. Condition is Stable. Problem is an acute exacerbation. Symptoms have improved. [facility] 07:30 04:54 02/15/2021 04:29 Hospitalization Ordered by Bhavesh Pineda DO for Inpatient hb Admission. Preliminary diagnosis is Hepatic Encephalopathy; Leukocytosis. Bed requested for Telemetry/MedSurg (Inpatient). Status is Inpatient Admission. Condition is Stable. Problem is an acute exacerbation. Symptoms have improved.
--- NOTE | 2021-02-15 04:29 | ER ---
Nurse's Notes [facility] Name: Lorena Hansen Age: 50 yrs Sex: Female : 1970 Arrival Date: 02/15/2021 Time: 01:08 Bed 2 Private MD: Diagnosis: Hepatic Encephalopathy;Leukocytosis Presentation: 02/15 01:09 Chief complaint: EMS states: pt has hx of hepatic encephalopathy, cirrhosis, boyfriend iw found her unresponsive at hotel, was awake and talking 5 hours ago, BS was 32 on scene, EMS administered D10 IVP, BS up to 90 now. Coronavirus screen: At this time, the client does not indicate any symptoms associated with coronavirus-19. Ebola Screen: Patient negative for fever greater than or equal to 101.5 degrees Fahrenheit, and additional compatible Ebola Virus Disease symptoms Patient denies exposure to infectious person. Patient denies travel to an Ebola-affected area in the 21 days before illness onset. No symptoms or risks identified at this time. Initial Sepsis Screen: Does the patient meet any 2 criteria? No. Patient's initial sepsis screen is negative. Does the patient have a suspected source of infection? No. Patient's initial sepsis screen is negative. Risk Assessment: Do you want to hurt yourself or someone else? Unable to obtain. Onset of symptoms was February 15, 2021. 01:09 Method Of Arrival: EMS: [facility] iw 01:09 Acuity: SUDHA 2 iw 01:09 Care prior to arrival: Medication(s) given: Normal saline infusion, D10 IV initiated. iw 20 GA, in the left antecubital area, Glucose check: 32. Historical: - Allergies: 01:14 PENICILLINS; iw 01:14 Zofran; iw - Home Meds: 01:14 Lactulose Oral [Active]; iw - PMHx: 01:14 Cirrhosis; COLON CA; iw - Immunization history:: Adult Immunizations unknown. - Social history:: Smoking status: unknown. Screenin:21 Abuse screen: Denies threats or abuse. Nutritional screening: No deficits noted. ea Tuberculosis screening: No symptoms or risk factors identified. Fall Risk None identified. Assessment: 01:50 General: Appears ill, Behavior is unresponsive. Pain: Unable to use pain scale. FLACC ea scale score is 0 out of 10. Neuro: Level of Consciousness is unresponsive, Oriented to none. Cardiovascular: kary lower extremity edema. Respiratory: Airway is patent Respiratory effort is even, unlabored, Respiratory pattern is regular, symmetrical. Derm: Skin is dry, Skin is pale, Skin temperature is cool. 02:50 Reassessment: Patient and/or family updated on plan of care and expected duration. Pain ea level reassessed. Pt responds to some painful stimulus. Respirations even and unlabored. 03:30 Reassessment: Patient and/or family updated on plan of care and expected duration. Pain ea level reassessed. Pt resting with eyes closed, respirations even and unlabored, chest expansions even and symmetrical. No s/s of pain or discomfort noted at this time. 04:30 Reassessment: Patient and/or family updated on plan of care and expected duration. Pain ea level reassessed. Pt resting with eyes closed, respirations even and unlabored, chest expansions even and symmetrical. No s/s of pain or discomfort noted at this time. 05:50 Reassessment: Patient and/or family updated on plan of care and expected duration. Pain ea level reassessed. Pt resting with eyes closed, respirations even and unlabored, chest expansions even and symmetrical. No s/s of pain or discomfort noted at this time. 06:56 Reassessment: Patient and/or family updated on plan of care and expected duration. Pain ea level reassessed. Pt resting with eyes closed, respirations even and unlabored, chest expansions even and symmetrical. No s/s of pain or discomfort noted at this time. Vital Signs: 01:09 BP 115 / 71; Pulse 114; Resp 20 S; Temp 98.4(TE); Pulse Ox 96% on R/A; Weight 90.72 kg; iw Height 5 ft. 5 in. (165.10 cm); 03:30 BP 102 / 71; Pulse 100; Resp 18; Pulse Ox 97% ; ea 04:00 BP 107 / 86; Pulse 100; Resp 18; Pulse Ox 97% on R/A; ea 05:00 BP 103 / 75; Pulse 101; Resp 17; Pulse Ox 99% ; ea 06:30 BP 104 / 71; Pulse 103; Resp 17; Pulse Ox 98% ; ea 01:09 Body Mass Index 33.28 (90.72 kg, 165.10 cm) iw ED Course: 01:08 Patient arrived in ED. iw 01:08 Parth Parra MD is Attending Physician. mh7 01:09 Maintain EMS IV. Dressing intact. Good blood return noted. Site clean \T\ dry. Gauge \T\ iw site: 20 LAC. 01:13 Triage completed. iw 01:21 Arm band placed on right wrist. Patient placed in an exam room, on a stretcher, on ea pulse oximetry. 01:22 Alicia Stevenson RN is Primary Nurse. ea 01:22 Patient has correct armband on for positive identification. Bed in low position. Call ea light in reach. Side rails up X2. 01:40 Chest Single View XRAY In Process Unspecified. EDMS 02:16 Notified ED physician of a critical lab result(s). WBC 22.4. lp1 02:17 CT Head C Spine In Process Unspecified. EDMS 03:07 CT Chest Abdomen Pelvis W/O Contrast In Process Unspecified. EDMS 03:12 Notified ED physician of a critical lab result(s). MAGNESIUM OF 1.3. rv 04:27 Bhavesh Pineda DO is Hospitalizing Provider. [facility] 06:53 No provider procedures requiring assistance completed. Patient admitted, IV remains in ea place. Administered Medications: 02:00 Drug: Lactulose 200 grams Route: PA; ea 04:32 Follow up: Response: No adverse reaction ea 02:24 Drug: D5-NS 1000 ml Route: IV; Rate: bolus; Site: left antecubital; ea 03:10 Drug: vancoMYCIN 1 grams Route: IVPB; Infused Over: 2 hrs; Site: left antecubital; ea 03:30 Drug: Magnesium Sulfate 2 grams Route: IVPB; Infused Over: 2 hrs; Site: right ea antecubital; 03:31 Drug: Potassium Chloride 20 mEq Route: IV; Rate: per protocol; Site: right antecubital; ea 05:18 Drug: Cefepime 1 grams Route: IVPB; Rate: 200 ml/hr; Infused Over: 30 mins; Site: left ea antecubital; Outcome: 04:29 Decision to Hospitalize by Provider. 7 06:53 Condition: stable ea 06:53 Instructed on the need for admit. 07:30 Patient left the ED. hb Signatures: Dispatcher [employer] Princess Parada RN RN Sophia Gaspar RN RN lp1 Helena Muir, RN RN Alicia Stevenson RN Meng Rosario ea, Parth Luna RN, MD MD mh7 Corrections: (The following items were deleted from the chart) 03:31 03:31 vancoMYCIN 1 grams IVPB in right antecubital over 2 hrs jacob james
--- NOTE | 2021-02-15 04:45 | P.HP ---
Certification for Inpatient Patient admitted to: Inpatient With expected LOS: >2 Midnights Patient will require the following post-hospital care: None Practitioner: I am a practitioner with admitting privileges, knowledge of patient current condition, hospital course, and medical plan of care. Services: Services provided to patient in accordance with Admission requirements found in Title 42 Section 412.3 of the Code of Federal Regulations Patient History Date of Service: 02/15/21 Reason for admission: Hepatic encephalopathy History of Present Illness: 50-year-old female with history of advanced alcoholic cirrhosis of the liver, GERD, anemia of chronic disease, history of drug abuse and medical noncompliance presents emergency department for altered mental status. Patient reportedly staying at a hotel and found on the ground. Patient is brought in by EMS for evaluation to the emergency department, patient is extremely lethargic, altered, groans with verbal stimulus/tactile stimulus. Labs significant for white blood cell count 22.4 hemoglobin 8.1 hematocrit 26.0 INR 2.09 potassium 2.6 creatinine 1.81 GFR 29 magnesium 1.3 t bili 4.9, d bili 2.6 ammonia level 182 BNP 3004 urine drug screen positive for amphetamines urinalysis negative for infection. Patient has not previously had significant elevated leukocytosis as demonstrated during this emergency department visit, for this reason CT chest abdomen pelvis without contrast was ordered which demonstrated dilatation of several loops of small bowel with diffuse small bowel wall thickening and severe proximal colonic wall thickening, cirrhosis with sequelae of portal hypertension including splenomegaly numerous portosystemic varices, large volume ascites and splenorenal shunting. ED provider wishes to admit patient for further evaluation and management. Patient was given lactulose enema in the emergency department. Allergies ondansetron [From Zofran] Allergy (Verified 06/14/20 21:06) Anaphylaxis Home Medications: Furosemide 40 mg PO BID 06/24/20 Ciprofloxacin HCl 500 mg PO BID 7 Days #14 tablet 11/06/20 Lactulose 45 ml PO TID #4000 ml 11/06/20 Rifaximin [Xifaxan] 550 mg PO BID #60 11/24/20 Amlodipine [Norvasc*] 5 mg PO DAILY #30 tab 12/01/20 Spironolactone 1 tab PO DAILY 12/10/20 - Past Medical/Surgical History Diabetic: No -: Advanced liver cirrhosis -: History of GERD with ulcer -: Diastolic CHF -: History of Esophageal varices -: Methamphetamine abuse -: Noncompliance with medication -: Recurrent admissions for hepatic encephalopathy -: Endoscopy -: GB Sx Psychosocial/ Personal History: Unknown - Family History Mother -: Cancer Father -: Heart disease - Social History Smoking Status: Unknown if ever smoked Alcohol use: No CD- Drugs: No Caffeine use: No Review of Systems is unable to be obtained Physical Examination - Physical Exam General: Other (Lethargic, groans to verbal/tactile stimulus) HEENT: Mucous membr. moist/pink Neck: Supple Respiratory: Normal air movement, Diminished (Bilaterally) Cardiovascular: Normal S1 S2, Edema (Edema to lower extremities noted) Capillary refill: <2 Seconds Gastrointestinal: Hypoactive, Ascites (No tense ascites noted), Tenderness, Masses, Rebound, Guarding Musculoskeletal: No contractures, No erythema, No tenderness Integumentary: No tenderness/swelling, No erythema, No warmth Neurological: Other (Patient currently minimally responsive, groans to verbal/tactile stimulus, maintaining airway) - Studies Laboratory Data (last 24 hrs) 02/15/21 02:25: Magnesium Cancelled 02/15/21 01:17: PT 24.2 H, INR 2.09, APTT 37.2 H 02/15/21 01:17: WBC 22.40 H*, Hgb 8.1 L, Hct 26.0 L, Plt Count 57 L 02/15/21 01:17: Sodium 143, Potassium 2.6 L*, BUN 15, Creatinine 1.81 H, Glucose 89, Magnesium 1.3 L*, Total Bilirubin 4.9 H, AST 75 H, ALT 40, Alkaline Phosphatase 90 Assessment and Plan - Plan Assessment Altered mental status secondary to hepatic encephalopathy related to advanced alcoholic cirrhosis of the liver Significant leukocytosis likely secondary to enterocolitis Anemia, thrombocytopenia, elevated LFTs, hyper bilirubinemia, hyperammonemia sec ondary to alcoholic cirrhosis of liver Hypoglycemia Methamphetamine abuse Medical noncompliance Plan Altered mental status secondary to hepatic encephalopathy related to advanced alcoholic cirrhosis of the liver: Patient given lactulose enema in the emergency department, continue with lactulose 20 mg t.i.d. via NGT if necessary, if this is not possible may consider additional lactulose enemas. Will need to trend ammonia levels. Patient typically becomes more combative when she is more arousable, will need to watch for this, patient sometimes requires sitter. DVT prophylaxis with SCDs as patient is with thrombocytopenia. Significant leukocytosis likely secondary to enterocolitis: Patient without leukocytosis during her previous admissions, CT demonstrates dilatation of several loops of small bowel with diffuse small bowel wall thickening and severe proximal colonic wall thickening, radiology favors this to be secondary from cirrhosis but also possibly infectious/inflammatory comment in the setting of this significant leukocytosis without other source of infection I believe this is currently likely the cause. Continue with IV Rocephin, Flagyl at this time. Continue to monitor patient's CBC. Blood cultures obtained. Anemia, thrombocytopenia, elevated LFTs, hyper bilirubinemia, hyperammonemia se condary to alcoholic cirrhosis of liver: Continue to monitor closely, transfuse for hemoglobin less than 7. Hypoglycemia : Continue D5 half NS at 75 cc/hour, q.6h Accu-Cheks as patient is NPO at this time. Methamphetamine abuse: Will need to counseled patient on need for discontinuation of methamphetamine abuse when she is more arousable. Medical noncompliance: Will need to address this with patient when she is more coherent, patient has declined placement multiple times in the past. Will address this again with her. Discharge Plan: Home Plan to discharge in: Greater than 2 days - Advance Directives Does patient have a Living Will: No Does patient have a Durable POA for Healthcare: No - Code Status/Comfort Care Code Status Assessed: Yes (Full code) Critical Care: No Time Spent Managing Pts Care (In Minutes): 55
[2021-02-15] MEDS ORDERED: NA CHLORIDE 0.9% 500 ML ONE (04:48)
[2021-02-15 04:58] LABS: Blood Morphology Comment NOTED (NOT SEEN); Platelet Estimate ADEQ; Polychromasia 1+
[2021-02-15] MEDS ORDERED: D5.45NS W/KCL 20MEQ 1,000 ML IV SCH ×2 (05:59→11:00)
[2021-02-15 07:46] VITALS: BMI 32.8
[2021-02-15] MEDS ORDERED: FOLIC ACID 5 MG/ML VIAL IVP SCH (09:00)
[2021-02-15] MEDS ORDERED: CEFTRIAXONE 1 GM/NS 50 ML 1 GM/50 ML BAG IV SCH (09:00)
[2021-02-15] MEDS: LACTULOSE 20 GM/30 ML UCUP PO SCH ×3 (09:00→20:59)
[2021-02-15] MEDS ORDERED: THIAMINE 200 MG/2 ML INJ IVP SCH (09:00)
[2021-02-15] MEDS: CEFTRIAXONE/SWI 1gm 1 GM/10 ML SYR IV SCH (09:02)
[2021-02-15] MEDS: PANTOPRAZOLE 40 MG INJ IVP SCH (09:03)
[2021-02-15] MEDS: METRONIDAZOLE 500mg IVPB 500 MG/100 ML BAG IV SCH ×2 (09:07→16:39)
[2021-02-15] MEDS: FOLIC ACID 1 MG in NA CHLORIDE 0.9% 50 ML IV SCH (09:16)
--- NOTE | 2021-02-15 10:05 | P.PN ---
Subjective Date of Service: 02/15/21 Primary Care Provider: unknown Chief Complaint: Hepatic encephalopathy Subjective: Other (patient remains encephalopathic) Physical Examination - Vital Signs Temperature: 97.5 F Blood Pressure: 108/68 Pulse: 98 Respirations: 16 Pulse Ox (%): 95 - Studies Laboratory Data (last 24 hrs) 02/15/21 02:25: Magnesium Cancelled 02/15/21 01:17: PT 24.2 H, INR 2.09, APTT 37.2 H 02/15/21 01:17: WBC 22.40 H*, Hgb 8.1 L, Hct 26.0 L, Plt Count 57 L 02/15/21 01:17: Sodium 143, Potassium 2.6 L*, BUN 15, Creatinine 1.81 H, Glucose 89, Magnesium 1.3 L*, Total Bilirubin 4.9 H, AST 75 H, ALT 40, Alkaline Phosphatase 90 Assessment & Plan Discharge Plan: Home Plan to discharge in: Greater than 2 days Physician Review Additional Text: CT scan: 1. Cirrhosis with sequelae of portal hypertension including splenomegaly, numerous portosystemic varices, large volume ascites and splenorenal shunt 2. Stable moderate size hiatal hernia 3. Dilatation of the small bowel with diffuse small bowel thickening and severe proximal colonic wall thickening likely related to congestion from cirrhosis or enterocolitis 4. Severe anasarca Physical Exam: She remains encephalopathic. Heart: Regular rate and rhythm Lungs: No significant distress noted Abdomen: Abdominal distention noted. Ascites noted. No significant pain with palpation Extremities: 2+ pitting edema to the lower extremities bilateral Impression: Altered mental status secondary to hepatic encephalopathy related to advanced alcoholic cirrhosis of the liver with CT showing sequelae of portal hypertension with noted splenomegaly, numerous portosystemic varices, large volume ascites and splenorenal shunt Significant leukocytosis likely secondary to enterocolitis Acute renal failure secondary to above possible hepatorenal syndrome Anemia of chronic disease with chronic thrombocytopenia Elevated liver function with hyperbilirubinemia secondary to advanced alcoholic liver cirrhosis Hypoglycemia related to poor oral intake Methamphetamine abuse GERD with hiatal hernia Medical noncompliance Plan: Altered mental status secondary to hepatic encephalopathy related to advanced alcoholic cirrhosis of the liver with CT showing sequelae of portal hypertension with noted splenomegaly, numerous portosystemic varices, large volume ascites and splenorenal shunt: Patient remains encephalopathic. Will provide lactulose enema this morning. Will transition to oral lactulose once the patient is more alert. Aspiration and fall precaution in place. Will decrease IV fluids due to anasarca and ascites. We will also provide IV albumin. Continue IV antibiotic therapy to cover enterocolitis. Blood cultures obtained. Patient with acute renal failure likely hepatorenal. Will check renal ultrasound. Nephrology cons ulted. Await recommendation. Will order radiology assisted ultrasound-guided paracentesis tomorrow for removal of ascites. Will send lab for analysis. Will transfer patient to ICU due to her current status. Maintain oxygen above 92%. We will continue to monitor closely. Monitor serial exams. Spoke with boyfriend who takes care of the patient. Boyfriend reports patient has been taking medication. They currently live at a hotel. She normally lives in a trailer. We will try to get a hold of other family to address her needs as well. Mother had medical power of attorney general or at least was the point of contact but she apparently . She has a daughter that lives out of town. I have asked for the boyfriend to get the number so I can contact. Will discuss further with nephrology. No GI on-call. Await further recommendations from nephrology. Continue to monitor renal function. If her condition worsens patient may require dialysis. Patient not on DVT prophylaxis due to chronic thrombocytopenia and risk for bleeding. Boyfriend reports patient is full code. Address with the boyfriend that her condition is severe. If her condition continues to worsen we will need to consider transfer for higher level of care. I will turn the service over to the hospitalist team tomorrow. I will go over the plan of care with him. Significant leukocytosis likely secondary to enterocolitis: Blood cultures obtained. Continue decrease level of IV fluids. Will monitor closely. Continue IV to buttock therapy. Acute renal failure secondary to above possible hepatorenal syndrome: Albumin to be given. Continue IV fluids but decrease levels. Await further recommendations from nephrology. Will obtain renal ultrasound to further evaluate. If her condition declines patient may require dialysis. Anemia of chronic disease with chronic thrombocytopenia: We will monitor hemoglobin closely. Will monitor platelet count as well. Both are likely related to her chronic illness. Continue SCD for DVT prophylaxis. Patient high risk for bleeding. Elevated liver function with hyperbilirubinemia secondary to advanced alcoholic liver cirrhosis: Continue to monitor renal function closely. Continue as above. Hypoglycemia related to poor oral intake: Patient on D5 half-normal. Will monitor for hypoglycemia. Methamphetamine abuse: We will check urine drug screen. GERD with moderate size hiatal hernia: Continue with Protonix. Medical noncompliance: Boyfriend reports patient is taking medication. Patient has been hospitalized multiple times for her condition. Time Spent Managing Pts Care (In Minutes): 55
[2021-02-15] MEDS: THIAMINE 200 MG/2 ML INJ IVP SCH ×2 (11:00→21:03)
[2021-02-15] MEDS ORDERED: LACTULOSE 20 GM/30 ML UCUP PR ONE (11:00)
[2021-02-15] MEDS ORDERED: ALBUMIN HUMAN 25% 100 ML IV ONE ×2 (11:00→15:00)
--- NOTE | 2021-02-15 11:47 | RAD REPORT ---
EXAM DESCRIPTION: RAD - Chest Single View - 02/15/2021 1:41 am CLINICAL HISTORY: AMS Chest pain. COMPARISON: Chest Single View dated 12/22/2020; Chest Single View dated 11/29/2020; Chest Single View d ated 11/22/2020; Chest Single View dated 11/01/2020; Chest Abd Pelvis Wo Con dated 02/15/2021 FINDINGS: Portable technique limits examination quality. Mild interstitial pulmonary edema is seen. The heart is moderately enlarged in size. Small left pleur al effusion. IMPRESSION: Mild CHF.
[2021-02-15] MEDS ORDERED: D50W 25 GM/50 ML SYRINGE IV ONE (13:48)
[2021-02-15 13:51] LABS: Urine Appearance CLOUDY (Clear); Urine Blood 2+ (Negative); Urine Color ORANGE (Yellow); Urine Glucose NEGATIVE (Negative); Urine Protein TRACE (Negative); Urine Specific Gravity 1.015 (1.005-1.030); Urine Urobilinogen 0.2 mg/dL (0.2-1.0)
[2021-02-15] MEDS ORDERED: D50W 50 ML IV ONE (14:02)
[2021-02-15] MEDS ORDERED: NOREPINEPHRINE 4 MG in D5W 250 ML IV PRN (14:04)
[2021-02-15 14:14] LABS: Urine Bilirubin 2+ (Negataive); Urine Microscopic Reflex ORDER UMIC
[2021-02-15 14:19] LABS: Urine Amorphous Sediment 3+ /HPF (NONE SEEN); Urine Bacteria <20 /HPF (<20); Urine Mucus 1+ /HPF (NONE SEEN); Urine Urothelial Cells <5 /HPF (NONE SEEN)
[2021-02-15 14:56] LABS: Albumin 1.5 g/dL (3.4-5.0); Bilirubin Total 4.5 mg/dL (0.2-1.0); Protein, Total 4.3 g/dL (6.4-8.2)
[2021-02-15 14:59] LABS: Potassium 4.2 mmol/L (3.5-5.1)
[2021-02-15] MEDS ORDERED: NA CHLORIDE 0.9% 250 ML IV ONE (15:00)
[2021-02-15] MEDS: D5.45NS W/KCL 20MEQ 1,000 ML IV SCH (15:59)
[2021-02-15 16:11] LABS: Absolute Lymphocytes (CBC) 0.9 K/uL (0.7-4.9); Basophils % 0.1 % (0-1.3); Hematocrit 27.7 % (36.0-45.0); MPV 11.3 fL (7.6-11.3); RBC Red Blood Cell Count 2.96 M/uL (3.86-4.86)
[2021-02-15] MEDS ORDERED: METRONIDAZOLE 500mg IVPB 500 MG/100 ML BAG IV ONE (16:55)
[2021-02-15] MEDS ORDERED: FUROSEMIDE 20 MG/ 2ML VIAL IV SCH (17:00)
[2021-02-15 17:44] LABS: Anisocytosis 1+; Blood Morphology Comment NOTED (NOT SEEN); Dohle Bodies PRESENT; Platelet Estimate DECR; Polychromasia 1+
[2021-02-15] MEDS ORDERED: THIAMINE 200 MG/2 ML INJ ONE (21:21)
[2021-02-15] MEDS ORDERED: D5.45NS W/KCL 20MEQ 1,000 ML IV ONE (21:24)
--- NOTE | 2021-02-15 21:39 | CON ---
Date of Consultation: 02/15/2021 History Of Present Illness: The patient is not awake, not alert, not able to respond or follow any c ommands, not sure what her baseline is, but she is clearly not able to give any history. Her vitals are stable. Currently with pulse slightly elevated at about 109. Her blood pressure is 121/71, befo re that was 104/71. Her respirations are around 16 or so. She does not seem to be uncomfortable. S he does not seem to be in any respiratory distress. She has no edema. Her abdomen seems to be soft, but she is not weak enough to respond or cooperate with physical exam. She does seem to have good O 2 saturations at 99% on room air. She has reasonable pulses. She does seem to have a dry mouth and dry skin. On evaluation of the chart where most of the history is obtained, the patient was found in a hotel room where she was staying on the floor. She has been on some drugs with positivity with am phetamines. The patient has a history of liver cirrhosis, has been on medications with spironolacton e, rifaximin. She has also been on lactulose. She has also been on furosemide, spironolactone, and amlodipine. Allergies: LISTED TO ZOFRAN. Past Medical History: Obtained from the chart, which states liver cirrhosis, history of methamphetam ine abuse, noncompliance with medications, admissions in the past also with hepatic encephalopathy, a dvanced liver cirrhosis, history of GERD with ulcer, question of diastolic heart failure. Physical Examination: General: The patient is lethargic, not able to respond or give any answers. She seems to be breathi ng comfortably. She does not seem to be volume overloaded. Lungs: Clear. Abdomen: Soft. Extremities: No edema. Laboratory Data: Reviewed. The patient's labs show WBC count of 31.2, platelet count of 70, hemoglo bin 8.4, hematocrit 27.7. Sodium 145, potassium 4.2, chloride 109, bicarb is 23, BUN is 19, creatini ne is 2.11. Lactic acid level of 6.7, calcium 7.1, total bilirubin level at 4.5, AST of 71, albumin at 1.5. Spironolactone level of 16.78. Assessment And Plan: The patient at high risk for sepsis. Her WBCs are elevated. Her prolactin lev el is elevated. The patient is at this point unresponsive to give any history. Her blood pressures are running slightly on the lower side. Last blood pressure was 86/50, pulse was about 108. I do no t feel that the patient is volume overloaded at this point. I agree with discontinuing diuretics. I do not get spironolactone and Lasix at this point. Discontinue Lasix. Start IV fluids at D5 half-n ormal saline with potassium as the patient is currently getting. We will increase this to 75 cc an h our from the 50 she is getting. She may need further boluses depending on her blood pressure. I agr ee with giving her thiamine as she is probably thiamine depleted and as we are giving her dextrose, t his may become a problem for her mentation. Vitamin D can also be initiated once the patient is able to take p.o. intake. At this point, the patient's condition overall is guarded. I do not know chris alcocer why her WBC counts were so elevated. I understand she is being treated currently with antibiotic s for diverticulitis. We will need to continue to monitor this and see if she will improve with this . Also once the patient is more alert, we will need to certified credit counselor her one more time regarding the dange rs of using drugs, especially in the setting of her liver cirrhosis and overall health condition. Cameron quiros is also very cachectic and malnourished. She would need to be counseled about improving her diet. In summary, hold diuretics, hold blood pressure medications, IV fluids, monitor renal function and i nfection status on antibiotics with metronidazole. We will need certified credit counselor the patient once she is able to understand the risks of using illegal drugs and also improving her nutrition. /KAT Voice ID: [id number] Report ID: [id number]
--- NOTE | 2021-02-15 21:46 | RAD REPORT ---
EXAM DESCRIPTION: US - Renal Ultrasound-Complete - 02/15/2021 9:22 pm CLINICAL HISTORY: acute renal failure, suspect hepatorenal Abdominal pain COMPARISON: No comparisons FINDINGS: Examination was quite limited due to patient's clinical status The right kidney measures 11.8 x 5.0 x 5.7 cm. No hydronephrosis. The right kidney is mildly echogeni c. The left kidney measures could not be adequately visualized. The urinary bladder is incompletely distended without gross abnormality seen. IMPRESSION: Mildly echogenic right kidney suggests medical renal disease. Left kidney could not be adequately visualized as the patient was unable to move.
[2021-02-16] MEDS: METRONIDAZOLE 500mg IVPB 500 MG/100 ML BAG IV SCH ×3 (00:39→16:51)
[2021-02-16] MEDS ORDERED: METRONIDAZOLE 500mg IVPB 500 MG/100 ML BAG IV ONE ×3 (00:57→15:51)
[2021-02-16] MEDS ORDERED: NA CHLORIDE 0.9% 500 ML ONE (00:57)
[2021-02-16] MEDS: D5.45NS W/KCL 20MEQ 1,000 ML IV SCH ×2 (02:25→15:46)
[2021-02-16 04:48] LABS: Absolute Lymphocytes (CBC) 1.8 K/uL (0.7-4.9); Basophils % 0.3 % (0-1.3); Hematocrit 25.1 % (36.0-45.0); Lymphocytes % 5.8 % (15.3-44.8); MPV 10.3 fL (7.6-11.3); RBC Red Blood Cell Count 2.73 M/uL (3.86-4.86)
[2021-02-16 05:28] LABS: Albumin 1.9 g/dL (3.4-5.0); Bilirubin Total 5.1 mg/dL (0.2-1.0); Magnesium 1.7 mg/dL (1.8-2.4); Potassium 3.2 mmol/L (3.5-5.1); Protein, Total 4.5 g/dL (6.4-8.2)
[2021-02-16] MEDS ORDERED: PANTOPRAZOLE 40 MG INJ ONE (09:08)
[2021-02-16] MEDS ORDERED: LACTULOSE 20 GM/30 ML UCUP ONE (09:08)
[2021-02-16] MEDS ORDERED: WATER FOR INJ,STERILE 10 ML ONE (09:08)
[2021-02-16] MEDS ORDERED: CEFTRIAXONE/SWI 1gm 1 GM/10 ML SYR ONE (09:08)
[2021-02-16] MEDS ORDERED: THIAMINE 200 MG/2 ML INJ ONE ×2 (09:09→21:27)
--- NOTE | 2021-02-16 09:20 | EKG ---
Test Date: 2021-02-15 Test Time: 01:36:33 Associate Professor Of Automation: KAELYN MEASUREMENT RESULTS: Intervals: Rate: 107 MS: 112 QRSD: 72 QT: 300 QTc: 400 [place]: P: 72 MS: 112 QRS: 33 T: 4 INTERPRETIVE STATEMENTS: Sinus tachycardia Low voltage QRS Cannot rule out Anterior infarct, age undetermined Abnormal ECG Compared to ECG 12/22/2020 05:13:28 Low QRS voltage now present Myocardial infarct finding still present Electronically Signed On 02-16-21 09:17:25 CDT by Josué Park
[2021-02-16] MEDS: PANTOPRAZOLE 40 MG INJ IVP SCH (09:44)
[2021-02-16] MEDS: CEFTRIAXONE/SWI 1gm 1 GM/10 ML SYR IV SCH (09:44)
[2021-02-16] MEDS: THIAMINE 200 MG/2 ML INJ IVP SCH ×2 (09:45→21:09)
[2021-02-16] MEDS: LACTULOSE 20 GM/30 ML UCUP PO SCH ×3 (09:45→21:00)
[2021-02-16] MEDS: FOLIC ACID 1 MG in NA CHLORIDE 0.9% 50 ML IV SCH (11:11)
--- NOTE | 2021-02-16 12:06 | RAD REPORT ---
EXAM DESCRIPTION: CT Chest, Abdomen, and Pelvis COMPARISON: CT abdomen and pelvis November 22, 2020 CLINICAL HISTORY: [facility] AMS;Abdominal distention TECHNIQUE: CT images through the chest, abdomen, and pelvis without IV contrast. Multiplanar reforma ts. Automated exposure control was utilized on this examination as a dose lowering technique. CT CHEST FINDINGS: Heart and mediastinum: Heart size is mildly enlarged. No definite adenopathy. Roxanne luation for lymph nodes is limited by tissue fluid and lack of IV contrast. Thyroid gland: Visualized portions are normal. Lungs: Dependent atelectasis is present, especially in the left lower lobe. A small focus of subpleur al scarring or atelectasis is noted in the lateral right upper lung. Airways: No filling defects. No bronchiectasis. Pleura: No pneumothorax. Moderate bilateral pleural effusions are present. Musculoskeletal and soft tissues: Severe anasarca. CHEST IMPRESSION: 1. Severe anasarca with moderate bilateral pleural effusions and dependent atelect asis. 2. Mild cardiomegaly. CT ABDOMEN & PELVIS FINDINGS: *Evaluation of solid organs is limited due to lack of IV contrast. Liver: Cirrhosis. Gallbladder and biliary: Cholecystectomy. Unremarkable biliary tree. Pancreas: Normal. Spleen: Enlarged measuring 16.7 cm. Kidneys and adrenal glands: Normal right adrenal gland. The left adrenal gland is not well-visualized . Normal kidneys. Stomach and Small Bowel: Stable moderate sized hiatal hernia. There is dilatation of several loops of small bowel with diffuse small bowel wall thickening. Urinary bladder: Not well visualized due to ascites and lack of contrast. Uterus and Adnexa: Unremarkable. Colon and Appendix: Rectal tube in place. There is severe wall thickening of the proximal colon. No e vidence of appendicitis. Peritoneal cavity: Large-volume ascites. No significant intraperitoneal free air. Retroperitoneum and lymph nodes: Evaluation for lymphadenopathy is limited due to lack of IV contrast and ascites. No grossly enlarged lymph nodes. 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 Musculoskeletal and soft tissues: Severe anasarca.No aggressive bone lesions. There is 4 mm anterolis thesis L4 on L5 with disc degeneration. No compression fracture. ABDOMEN AND PELVIS IMPRESSION: 1. Cirrhosis with sequelae of portal hypertension including splenomeg leilani, numerous portosystemic varices, large volume ascites, and splenorenal shunt. 2. Stable moderate-sized hiatal hernia. 3. Dilatation of several loops of small bowel with diffuse small bowel wall thickening and severe pro ximal colonic wall thickening are favored to be secondary to congestion from cirrhosis and less likel y infectious or inflammatory enterocolitis. 4. Severe anasarca. Electronically signed by: Silvio Aceves MD 02/15/2021 3:42 AM CDT Due to temporary technical issues with the PACS/Fluency reporting system, reports are being signed by the in house radiologists without review as a courtesy to insure prompt reporting. The interpreting radiologist is fully responsible for the content of the report.
--- NOTE | 2021-02-16 12:13 | RAD REPORT ---
EXAM DESCRIPTION: Head C Spine Mpr Wo Con 02/15/2021 2:20 AM CDT CLINICAL HISTORY: 50 years, Female, AMS COMPARISON: None. FINDINGS: Multiple transaxial tomograms of the brain were obtained from the base of the skull to the vertex without contrast. 2-D multiplanar reformats and the coronal and sagittal plane were performed and reviewed. Subsequently multiple axial CT images through the cervical spine were obtained at 2 mm slice thicknes s at 2 mm interval reconstruction. In addition 2-D multiplanar reformats and the sagittal coronal patti ne were performed and reviewed. An individualized dose optimization technique, Automated Exposure Control, was utilized for the perfo rmed procedure. Head: Brain parenchyma as well as the anderson and white matter differentiation demonstrate to be unremar kable. There is no midline shift and/or mass effect. There is no evidence for acute hemorrhage and/or infarction. Lateral ventricles and cisterns displace normal appearance. No intra or extra axial fluid collections were seen. The calvarium is intact with no evidence for fracture. The visualized po rtions of the paranasal sinuses and orbits demonstrate to be clear. C-spine: The alignment, vertebral body heights, and disc spaces are normal. There is no evidence of fracture or subluxation. There is significant degenerative changes at C6/C7 with erosive component. Also noted is the presence of degenerative changes with erosive component at the left side uncoverteb ral of C4/C5. The spinal canal demonstrate no evidence for significant stenosis. Neural foramina demo nstrate to be unremarkable. There is no prevertebral soft tissue swelling. Sagittal coronal reforma tted images demonstrate no subluxation or bony abnormalities. IMPRESSION: No evidence for acute hemorrhage. No evidence for fracture or subluxation of the cervical spine. Degenerative changes with erosive component at C6/C7 and left uncovertebral joint C4/C5. If concern M RI of the cervical spine could be of assistance. Electronically signed by: Erasmo Cano MD 02/15/2021 2:25 AM CDT Due to temporary technical issues with the PACS/Fluency reporting system, reports are being signed by the in house radiologists without review as a courtesy to insure prompt reporting. The interpreting radiologist is fully responsible for the content of the report.
[2021-02-16] MEDS ORDERED: D5.45NS W/KCL 20MEQ 1,000 ML IV ONE ×2 (15:51→21:28)
--- NOTE | 2021-02-16 21:14 | PN ---
Subjective: The patient is seen in emergency room hold. The patient is not awake or alert. She is not able to give answers or answer any questions. I do not know her baseline. The patient was mikaelail clayton yesterday also. Most of the information is gotten from the chart. Objective: Vital Signs: The patient's vitals seem reasonably stable with blood pressure about 118/7 7 on last check, before that 119 systolic, before that was 107 systolic. O2 sats are 99% on room air . She is afebrile. Her pulse is about 100, respiration rate is about 18 to 20. Lungs: Clear to auscultation. General: She does look comfortable at rest with stable vitals. Medications: Her medications are reviewed. The patient is currently on ceftriaxone. She is on metr onidazole. She is on pantoprazole. She is on potassium with IV fluids D5 half normal saline and 20 mEq/L of KCl. She is also getting thiamine. Assessment And Plan: The patient with acute kidney injury. Question status of her chronic kidney di sease if any would need further evaluation once acute issues are resolved. The patient was positive for amphetamines on admission. The patient has low blood pressures but is getting IV fluids. Blood pressure seems to be reasonably stable at low 100 range currently. Continue on IV fluids with D5 [place] f normal saline with 20 mEq of potassium. The patient is saturating okay on room air. It is okay to bolus fluids as needed. Antibiotic treatment for colitis is ongoing. The patient is going to need to be counseled in detail about her use of amphetamines and other such drugs as this can be a serious problem leading to her if she continues on . Also I am not sure for baseline. We w ill discuss with the hospitalist team to see if there is any indication for further evaluation for he r neurological condition and then to better understand why she is somnolent or lethargic with inability to respond to any commands or wake up to follow commands. /KAT Voice ID: [id number] Report ID: [id number]
[2021-02-17] MEDS: METRONIDAZOLE 500mg IVPB 500 MG/100 ML BAG IV SCH ×3 (01:20→16:46)
[2021-02-17] MEDS ORDERED: METRONIDAZOLE 500mg IVPB 500 MG/100 ML BAG IV ONE ×4 (01:39→20:38)
[2021-02-17] MEDS: D5.45NS W/KCL 20MEQ 1,000 ML IV SCH ×2 (04:19→20:25)
[2021-02-17 04:50] LABS: Absolute Lymphocytes (CBC) 1.9 K/uL (0.7-4.9); Basophils % 0.3 % (0-1.3); Hematocrit 24.6 % (36.0-45.0); Lymphocytes % 10.1 % (15.3-44.8); MPV 9.4 fL (7.6-11.3); RBC Red Blood Cell Count 2.67 M/uL (3.86-4.86)
[2021-02-17 05:12] LABS: Albumin 1.7 g/dL (3.4-5.0); Bilirubin Total 4.4 mg/dL (0.2-1.0); Magnesium 1.8 mg/dL (1.8-2.4); Potassium 3.1 mmol/L (3.5-5.1); Protein, Total 4.2 g/dL (6.4-8.2)
[2021-02-17] MEDS ORDERED: CEFTRIAXONE/SWI 1gm 1 GM/10 ML SYR ONE (08:05)
[2021-02-17] MEDS ORDERED: PANTOPRAZOLE 40 MG INJ ONE (08:05)
[2021-02-17] MEDS ORDERED: WATER FOR INJ,STERILE 10 ML ONE (08:05)
[2021-02-17] MEDS ORDERED: LACTULOSE 20 GM/30 ML UCUP ONE ×4 (08:05→20:39)
[2021-02-17] MEDS ORDERED: KCL 20 MEQ/100 mL IVPB 40 MEQ/200 ML BAG IV ONE (08:13)
[2021-02-17] MEDS: PANTOPRAZOLE 40 MG INJ IVP SCH (08:19)
[2021-02-17] MEDS: LACTULOSE 20 GM/30 ML UCUP PO SCH ×3 (08:19→20:24)
[2021-02-17] MEDS: CEFTRIAXONE/SWI 1gm 1 GM/10 ML SYR IV SCH (08:19)
[2021-02-17] MEDS: KCL 20 MEQ/100 mL IVPB 20 MEQ/100 ML BAG IV SCH ×2 (08:19→10:30)
[2021-02-17] MEDS: THIAMINE 200 MG/2 ML INJ IVP SCH ×2 (09:00→20:25)
[2021-02-17] MEDS: FOLIC ACID 1 MG in NA CHLORIDE 0.9% 50 ML IV SCH (09:48)
[2021-02-17] MEDS ORDERED: D5W 500 ML IV SCH (13:00)
[2021-02-17] MEDS ORDERED: FUROSEMIDE 20 MG/ 2ML VIAL IV PRN ×2 (15:45→15:49)
--- NOTE | 2021-02-17 19:02 | PN ---
Subjective: The patient is much more alert today. She is seen in the emergency room hold. She camden es any discomfort. She is able to answer some basic questions and follow some commands. Her blood p ressure has been reasonable and somewhat improved now with the last blood pressure 141/81, pulse at 9 8, respirations around 14 to 18. Pain level as per patient is between 0 and 4. Objective: General: She looks comfortable currently. O2 sats are 99% on room air. Lungs: Clear to auscultation. Abdomen: Soft. Extremities: Do not reveal any edema. Skin: Dry. Medications: Reviewed. Patient is currently getting IV fluids with some potassium. She has also frey d some potassium replacement done. She has IV fluids going in with D5 half-normal saline with 20 mEq of potassium per liter. She is getting it at about 75 cc an hour and tolerating that well. She is also on metronidazole and she is on ceftriaxone. Lab Data: Reviewed. Her white blood cell counts are improving down to 18.6 from 30,000. Her hemogl obin is stable at 7.8, hematocrit 24.6, platelet count of 52, which is reasonably stable compared to yesterday when it was 59. Sodium 146, potassium 3.1, bicarb 29, BUN and creatinine 29 and 1.5. Ammo renato level at 58. AST and ALT are at 66 and 38, alkaline phosphatase is 81. Assessment And Plan: 1.Volume depletion/dehydration/acute kidney injury. At this point, continue with IV fluids at D5 frey lf-normal saline at 75 cc an hour with 20 mEq of potassium . The patient is tolerating thi s well. In addition to this, we will give her 75 cc of D5W for a total of 500 cc and then stop. 2.Hypokalemia. This has been replaced with IV potassium already. She is also getting potassium in her IV bag. We will recheck BMP tomorrow morning. 3.Hypernatremia. The half-normal saline is giving her some free water. Also we will give D5W as st ated above to correct this further. 4.Hypocalcemia, in the setting of low albumin corrected calcium is close to normal. Vital signs are stable. Blood pressures are okay. Patient would need to be counseled about safe use of medications , avoiding illicit medications or correction drugs and also needs to be counseled further about impro ving her diet. She seems cachectic and very malnourished. /KAT Voice ID: [id number] Report ID: [id number]
[2021-02-17] MEDS ORDERED: D5.45NS W/KCL 20MEQ 1,000 ML IV ONE (20:38)
[2021-02-17] MEDS ORDERED: THIAMINE HCL 100 MG TABLET ONE (20:38)
[2021-02-17] MEDS ORDERED: NA CHLORIDE 0.9% 250 ML ONE (20:39)
[2021-02-17] MEDS: MORPHINE 2 MG/ML SYR IV PRN (20:40)
[2021-02-17] MEDS ORDERED: MORPHINE 2 MG/ML SYR ONE (20:57)
[2021-02-18] MEDS: METRONIDAZOLE 500mg IVPB 500 MG/100 ML BAG IV SCH ×3 (00:33→16:42)
[2021-02-18] MEDS ORDERED: FUROSEMIDE 20 MG/ 2ML VIAL ONE (04:33)
[2021-02-18 06:07] LABS: Bilirubin Total 4.2 mg/dL (0.2-1.0); Potassium 3.1 mmol/L (3.5-5.1); Protein, Total 4.7 g/dL (6.4-8.2)
[2021-02-18 06:08] LABS: Albumin 1.8 g/dL (3.4-5.0); Magnesium 1.8 mg/dL (1.8-2.4)
[2021-02-18 06:09] LABS: Basophils % 0.1 % (0-1.3); Hematocrit 26.8 % (36.0-45.0); Lymphocytes % 12.8 % (15.3-44.8); RBC Red Blood Cell Count 2.92 M/uL (3.86-4.86)
[2021-02-18] MEDS ORDERED: MAGNESIUM SULFATE 1 gm IVPB 1 GM/100 ML BAG IV ONE ×2 (06:46→07:10)
[2021-02-18] MEDS ORDERED: POTASSIUM 25 MEQ EFFERV TAB PO ONE ×2 (06:47→14:26)
[2021-02-18] MEDS ORDERED: POTASSIUM 25 MEQ EFFERV TAB ONE (07:09)
[2021-02-18] MEDS: LACTULOSE 20 GM/30 ML UCUP PO SCH ×3 (09:00→20:03)
[2021-02-18] MEDS: FOLIC ACID 1 MG in NA CHLORIDE 0.9% 50 ML IV SCH (09:00)
[2021-02-18] MEDS: CEFTRIAXONE/SWI 1gm 1 GM/10 ML SYR IV SCH (09:00)
[2021-02-18] MEDS: PANTOPRAZOLE 40 MG INJ IVP SCH (09:00)
[2021-02-18] MEDS: THIAMINE 200 MG/2 ML INJ IVP SCH ×2 (09:00→20:03)
[2021-02-18 09:24] LABS: Protime INR 2.08
[2021-02-18] MEDS: D5.45NS W/KCL 20MEQ 1,000 ML IV SCH (10:39)
[2021-02-18] MEDS ORDERED: METRONIDAZOLE 500mg IVPB 500 MG/100 ML BAG IV ONE (11:22)
[2021-02-18] MEDS ORDERED: LACTULOSE 20 GM/30 ML UCUP ONE (11:22)
[2021-02-18] MEDS: SODIUM CHLORIDE 0.9% 10ML INJ IV PRN (11:32)
[2021-02-18] MEDS ORDERED: PANTOPRAZOLE 40 MG INJ ONE (11:41)
[2021-02-18] MEDS ORDERED: CEFTRIAXONE/SWI 1gm 1 GM/10 ML SYR ONE (11:42)
[2021-02-18] MEDS: MORPHINE 2 MG/ML SYR IV PRN ×2 (11:47→16:43)
[2021-02-18] MEDS ORDERED: MORPHINE 2 MG/ML SYR ONE (11:58)
--- NOTE | 2021-02-18 13:21 | RAD REPORT ---
EXAM DESCRIPTION: US - Paracentesis Proc Guidance - 02/18/2021 9:39 am CLINICAL HISTORY: Liver disease with ascites FINDINGS: The risks, benefits and alternatives to the procedure were explained to the patient and in formed consent obtained. The patient was given FFP and platelets prior to the examination. The skin and subcutaneous tissues were anesthetized with Lidocaine. Under sonographic guidance an 8 F rench catheter was placed into the pelvis midline. 3.5 liters of yellow fluid was removed The patient experienced no immediate complication. IMPRESSION: Paracentesis
[2021-02-18] MEDS ORDERED: ALBUMIN HUMAN 25% IV ONE (14:30)
[2021-02-18] MEDS ORDERED: ALBUMIN HUMAN 25% 100 ML IV ONE (14:30)
--- NOTE | 2021-02-18 22:25 | P.PN ---
Date of Service: 02/18/21 Vital Signs Temp Pulse Resp BP Pulse Ox 99.1 F 106 H 18 160/102 H 98 02/18/21 20:00 02/18/21 20:00 02/18/21 20:00 02/18/21 20:00 02/18/21 20:00 Medications Metronidazole/Sodium Chloride (Flagyl 500mg/100 Ml Iv Premix) 500 mg in 100 mls @ 200 mls/hr IV Q8HR [facility]; Protocol Last Admin: 02/18/21 16:42 Dose: 100 mls Documented by: Ceftriaxone Sodium/Sodium Chloride (Rocephin 1 Gm/10 Ml Swi Ivp) 1 gm in 10 mls @ 600 mls/hr IV DAILY [facility] Last Admin: 02/18/21 09:00 Dose: 10 mls Documented by: Folic Acid 1 mg/ Sodium (Chloride) 50.2 mls @ 200.8 mls/hr IV DAILY [facility] Last Admin: 02/18/21 09:00 Dose: 50.2 mls Documented by: Norepinephrine Bitartrate 4 mg (/ Dextrose) 254 mls @ 0 mls/hr IV PRN PRN; Protocol PRN Reason: Hemodynamic Parameters Lactulose (Lactulose 20 Gm/30 Ml Ucup) 20 gm PO TID [facility] Last Admin: 02/18/21 20:03 Dose: 20 gm Documented by: Morphine Sulfate (Morphine 2 Mg/Ml Syr) 2 mg IV Q6H PRN PRN Reason: Pain scale 5-7 (Moderate) Last Admin: 02/18/21 16:43 Dose: 2 mg Documented by: Pantoprazole Sodium (Pantoprazole 40 Mg Inj) 40 mg IVP DAILY [facility]; Protocol Last Admin: 02/18/21 09:00 Dose: 40 mg Documented by: Sodium Chloride (Flush Normal Saline 10 Ml) 10 ml IV BID [facility] Last Admin: 02/18/21 20:03 Dose: 10 ml Documented by: Sodium Chloride (Sodium Chloride 0.9% 10ml Inj) 10 ml IV UD PRN PRN Reason: Diluant Last Admin: 02/18/21 11:32 Dose: 10 ml Documented by: Spironolactone (Spironolactone 25 Mg Tablet) 25 mg PO BID [facility] Thiamine HCl (Thiamine 200 Mg/2 Ml Inj) 100 mg IVP BID [facility] Last Admin: 02/18/21 20:03 Dose: 100 mg Documented by: Microbiology Results 02/15/21 03:30 Blood - Blood Aerobic Blood Culture - Preliminary No growth in 24 hours. 02/15/21 03:30 Blood - Blood Anaerobic Blood Culture - Preliminary No growth in 24 hours. 02/15/21 03:15 Blood - Blood Aerobic Blood Culture - Preliminary No growth in 24 hours. 02/15/21 03:15 Blood - Blood Anaerobic Blood Culture - Preliminary No growth in 24 hours. Assessment/ Plan: Nephrology Paracentesis this morning. Persistent edema. No acute events overnight. Vitals, medications, blood work and imaging reviewed in the chart. NAD. Obese. MMM. Neck supple. CTA. RRR. Soft Abd. No C/C. LE Edema 2-3+. Anasarca. No rash. AAO. Normal Speech. A/P: Continue the current POC and Medications other than the changes listed. AM Labs PRN. Recommend daily weight. Please see the orders for complete details. Hypokalemia -Replete potassium -Start spironolactone Hypocalcemia Severe malnutrition -Consider IV Albumin Liver cirrhosis with ascites -Paracentesis 02-18-21 Anasarca -Discontinue IVF -Start spironolactone Anemia in chronic illness -Monitor H&H
[2021-02-19] MEDS: METRONIDAZOLE 500mg IVPB 500 MG/100 ML BAG IV SCH ×2 (01:30→10:23)
[2021-02-19] MEDS: SPIRONOLACTONE 25 MG TABLET PO SCH ×3 (01:31→20:52)
[2021-02-19] MEDS: MORPHINE 2 MG/ML SYR IV PRN ×3 (02:42→16:46)
[2021-02-19 06:22] LABS: BUN Blood Urea Nitrogen 17 mg/dL (7-18); Bicarbonate 29 mmol/L (21-32); Glucose Level 88 mg/dL (74-106); Sodium Level 143 mmol/L (136-145)
[2021-02-19 06:25] LABS: Magnesium 1.8 mg/dL (1.8-2.4)
[2021-02-19] MEDS ORDERED: MAGNESIUM SULFATE 1 gm IVPB 1 GM/100 ML BAG IV ONE (07:12)
[2021-02-19] MEDS ORDERED: SPIRONOLACTONE 25 MG TABLET PO SCH (09:00)
[2021-02-19] MEDS: LACTULOSE 20 GM/30 ML UCUP PO SCH ×3 (10:21→20:52)
[2021-02-19] MEDS: THIAMINE 200 MG/2 ML INJ IVP SCH ×2 (10:21→20:55)
[2021-02-19] MEDS: FOLIC ACID 1 MG in NA CHLORIDE 0.9% 50 ML IV SCH (10:22)
[2021-02-19] MEDS: PANTOPRAZOLE 40 MG INJ IVP SCH (10:22)
[2021-02-19] MEDS: CEFTRIAXONE/SWI 1gm 1 GM/10 ML SYR IV SCH (10:22)
[2021-02-19] MEDS: SODIUM CHLORIDE 0.9% 10ML INJ IV PRN (10:24)
[2021-02-19] MEDS ORDERED: METOLAZONE 5 MG TABLET PO SCH (12:00)
[2021-02-19] MEDS: BUMETANIDE 1 MG TABLET PO SCH ×2 (12:27→16:41)
--- NOTE | 2021-02-19 19:52 | P.PN ---
Date of Service: 02/19/21 Vital Signs Temp Pulse Resp BP Pulse Ox 99.8 F 108 H 18 149/81 H 96 02/19/21 16:00 02/19/21 16:00 02/19/21 17:16 02/19/21 16:00 02/19/21 17:16 Medications Bumetanide (Bumetanide 1 Mg Tablet) 1 mg PO BIDL [facility] Last Admin: 02/19/21 16:41 Dose: 1 mg Documented by: Folic Acid 1 mg/ Sodium (Chloride) 50.2 mls @ 200.8 mls/hr IV DAILY [facility] Last Admin: 02/19/21 10:22 Dose: 50.2 mls Documented by: Norepinephrine Bitartrate 4 mg (/ Dextrose) 254 mls @ 0 mls/hr IV PRN PRN; Protocol PRN Reason: Hemodynamic Parameters Lactulose (Lactulose 20 Gm/30 Ml Ucup) 20 gm PO TID [facility] Last Admin: 02/19/21 14:55 Dose: 20 gm Documented by: Morphine Sulfate (Morphine 2 Mg/Ml Syr) 2 mg IV Q6H PRN PRN Reason: Pain scale 5-7 (Moderate) Last Admin: 02/19/21 16:46 Dose: 2 mg Documented by: Pantoprazole Sodium (Pantoprazole 40 Mg Inj) 40 mg IVP DAILY [facility]; Protocol Last Admin: 02/19/21 10:22 Dose: 40 mg Documented by: Sodium Chloride (Flush Normal Saline 10 Ml) 10 ml IV BID [facility] Last Admin: 02/19/21 10:24 Dose: 10 ml Documented by: Sodium Chloride (Sodium Chloride 0.9% 10ml Inj) 10 ml IV UD PRN PRN Reason: Diluant Last Admin: 02/19/21 10:24 Dose: 10 ml Documented by: Spironolactone (Spironolactone 25 Mg Tablet) 25 mg PO BID [facility] Last Admin: 02/19/21 10:20 Dose: 25 mg Documented by: Thiamine HCl (Thiamine 200 Mg/2 Ml Inj) 100 mg IVP BID [facility] Last Admin: 02/19/21 10:21 Dose: 100 mg Documented by: Microbiology Results 02/15/21 03:30 Blood - Blood Aerobic Blood Culture - Preliminary No growth in 24 hours. 02/15/21 03:30 Blood - Blood Anaerobic Blood Culture - Preliminary No growth in 24 hours. 02/15/21 03:15 Blood - Blood Aerobic Blood Culture - Preliminary No growth in 24 hours. 02/15/21 03:15 Blood - Blood Anaerobic Blood Culture - Preliminary No growth in 24 hours. Assessment/ Plan: Nephrology Persistent edema. Requesting SCD No acute events overnight. Vitals, medications, blood work and imaging reviewed in the chart. NAD. Obese. MMM. Neck supple. CTA. RRR. Soft Abd. No C/C. LE Edema 2-3+. Anasarca. No rash. AAO. Normal Speech. A/P: Continue the current POC and Medications other than the changes listed. AM Labs PRN. Recommend daily weight. Please see the orders for complete details. Hypokalemia -Continue spironolactone Hypocalcemia -Start Vitamin D Severe malnutrition -Encourage nutrition with protein supplementation -Consider IV Albumin Liver cirrhosis with ascites -Paracentesis 02-18-21 Anasarca -Start Bumex BID -Continue spironolactone -Metolazone 10mg X1 Anemia in chronic illness -Monitor H&H -Transfuse PRBC as needed Case reviewed with Dr. Davis
[2021-02-20] MEDS: MORPHINE 2 MG/ML SYR IV PRN ×2 (00:31→08:30)
[2021-02-20 06:39] LABS: Absolute Lymphocytes (CBC) 1.8 K/uL (0.7-4.9); Basophils % 0.5 % (0-1.3); Hematocrit 25.3 % (36.0-45.0); MPV 9.4 fL (7.6-11.3); RBC Red Blood Cell Count 2.75 M/uL (3.86-4.86)
[2021-02-20 07:16] LABS: ALT/SGPT 34 U/L (12-78); AST/SGOT 49 U/L (15-37); Albumin 1.7 g/dL (3.4-5.0); Alkaline Phosphatase 111 U/L (45-117); BUN Blood Urea Nitrogen 15 mg/dL (7-18); Bicarbonate 30 mmol/L (21-32); Bilirubin Total 3.6 mg/dL (0.2-1.0); Folic Acid, (Folate) > 20.0 ng/mL (3.1-17.5); Glucose Level 133 mg/dL (74-106); Magnesium 1.7 mg/dL (1.8-2.4); Phosphorus 1.2 mg/dL (2.5-4.9); Potassium 3.5 mmol/L (3.5-5.1); Protein, Total 4.6 g/dL (6.4-8.2); Sodium Level 140 mmol/L (136-145)
[2021-02-20] MEDS: FOLIC ACID 1 MG in NA CHLORIDE 0.9% 50 ML IV SCH (08:22)
[2021-02-20] MEDS: BUMETANIDE 1 MG TABLET PO SCH (08:24)
[2021-02-20] MEDS: THIAMINE 200 MG/2 ML INJ IVP SCH (08:26)
[2021-02-20] MEDS: PANTOPRAZOLE 40 MG INJ IVP SCH (08:26)
[2021-02-20] MEDS: LACTULOSE 20 GM/30 ML UCUP PO SCH ×2 (08:26→14:00)
[2021-02-20] MEDS: SPIRONOLACTONE 25 MG TABLET PO SCH (08:27)
[2021-02-20] MEDS ORDERED: MAGNESIUM SULFATE 1 gm IVPB 1 GM/100 ML BAG IV ONE (09:00)
[2021-02-20] MEDS ORDERED: POTASSIUM CL SA 10 MEQ TAB PO ONE (09:00)
[2021-02-20] MEDS ORDERED: VITAMIN D 5,000 UNIT CAP PO SCH (09:00)
[2021-02-20] MEDS ORDERED: CALCITROL 0.25 MCG CAP PO SCH (09:00)
[2021-02-20 10:07] VITALS: O2SAT 97
[2021-02-20 10:19] LABS: Blood Morphology Comment NOT SEEN (NOT SEEN); Platelet Estimate DECR
[2021-02-20] MEDS ORDERED: hydrOXYzine HCL 25 MG TAB PO ONE (11:09)
[2021-02-20] MEDS ORDERED: LACTULOSE 20 GM/30 ML UCUP PR ONE (11:30)
--- NOTE | 2021-02-20 14:38 | P.PN ---
Subjective Date of Service: 02/16/21 Patient is obtunded. Difficult to arouse. Patient presents quite often with similar complaints. Continue monitoring closely in the intensive care unit. Review of Systems 10-point ROS is otherwise unremarkable Physical Examination - Vital Signs Temperature: 98.4 F Blood Pressure: 132/82 Pulse: 98 Respirations: 16 Pulse Ox (%): 97 - Physical Exam General: Unresponsive Respiratory: Other (Upper airway noise) Cardiovascular: Regular rate/rhythm, Normal S1 S2, No murmurs Gastrointestinal: Normal bowel sounds, Soft and benign, Non-distended, No tenderness Musculoskeletal: No clubbing, No swelling, No tenderness Neurological: Sensation intact, Cranial nerves 3-12 intact - Studies Microbiology Data (last 24 hrs): 02/15/21 03:30 Blood - Blood Aerobic Blood Culture - Final No growth in 5 days. 02/15/21 03:30 Blood - Blood Anaerobic Blood Culture - Final No growth in 5 days. 02/15/21 03:15 Blood - Blood Aerobic Blood Culture - Final No growth in 5 days. 02/15/21 03:15 Blood - Blood Anaerobic Blood Culture - Final No growth in 5 days. Medications List Reviewed: Yes Assessment & Plan - Problems (Diagnosis) (1) Ascites Current Visit: No Status: Acute (2) Hepatic encephalopathy Current Visit: No Status: Acute (3) Hypoalbuminemia Current Visit: No Status: Acute (4) Liver cirrhosis Current Visit: No Status: Acute (5) Methamphetamine abuse Current Visit: No Status: Acute (6) Thrombocytopenia Current Visit: No Status: Acute - Plan Plan: 1. Continue with gentle hydration 2. Lactulose 3. Monitor LFTs 4. Monitor ammonia level 5. Neurochecks q.2 hr 6. Repeat CBC and continue broad-spectrum antibiotic coverage; cultures pending 7. GI and DVT prophylaxis Discharge Plan: Home Plan to discharge in: Greater than 2 days - Advance Directives Does patient have a Living Will: No Does patient have a Durable POA for Healthcare: No - Code Status/Comfort Care Code Status Assessed: Yes Code Status: Full Code Critical Care: No Time Spent Managing PTS Care (In Minutes): 35
--- NOTE | 2021-02-20 14:47 | P.PN ---
Date of Service: 02/17/21 Subjective Patient more awake and alert. Patient following some commands. Review of Systems 10-point ROS is otherwise unremarkable Physical Examination - Vital Signs Reviewed - Physical Exam General: Unresponsive Respiratory: Other (Upper airway noise) Cardiovascular: Regular rate/rhythm, Normal S1 S2, No murmurs Gastrointestinal: Normal bowel sounds, Soft and benign, Non-distended, No tenderness Musculoskeletal: No clubbing, No swelling, No tenderness Neurological: Sensation intact, Cranial nerves 3-12 intact Assessment & Plan - Problems (Diagnosis) (1) Ascites Current Visit: No Status: Acute (2) Hepatic encephalopathy Current Visit: No Status: Acute (3) Hypoalbuminemia Current Visit: No Status: Acute (4) Liver cirrhosis Current Visit: No Status: Acute (5) Methamphetamine abuse Current Visit: No Status: Acute (6) Thrombocytopenia Current Visit: No Status: Acute - Plan Continue with plan of care as mentioned below 1. Continue with gentle hydration 2. Continue lactulose; lactulose per rectum as needed 3. Continue monitoring labs closely 4. Monitor ammonia level 5. Continue monitoring closely; start diet and advance as tolerated 6. Continue antibiotics and cultures still are negative 7. GI and DVT prophylaxis
--- NOTE | 2021-02-20 14:48 | P.PN ---
Date of Service: 02/18/21 Subjective Patient awake and following commands. Continue monitoring patient closely. Status post paracentesis and greater than 3 L removed Review of Systems 10-point ROS is otherwise unremarkable Physical Examination - Vital Signs Reviewed - Physical Exam General: Awake and alert and following commands Respiratory: Clear bilaterally Cardiovascular: Regular rate/rhythm, Normal S1 S2, No murmurs Gastrointestinal: Normal bowel sounds, Soft and benign, Non-distended, No tenderness Musculoskeletal: No clubbing, No swelling, No tenderness Neurological: Sensation intact, Cranial nerves 3-12 intact Assessment & Plan - Problems (Diagnosis) (1) Ascites Current Visit: No Status: Acute (2) Hepatic encephalopathy Current Visit: No Status: Acute (3) Hypoalbuminemia Current Visit: No Status: Acute (4) Liver cirrhosis Current Visit: No Status: Acute (5) Methamphetamine abuse Current Visit: No Status: Acute (6) Thrombocytopenia Current Visit: No Status: Acute - Plan Continue with plan of care as mentioned below 1. If tolerating diet will Hep-Lock IV 2. Continue lactulose; lactulose per rectum as needed 3. Continue monitoring labs closely 4. Monitor ammonia level 5. Continue monitoring closely; start diet and advance as tolerated 6. Continue antibiotics and cultures still are negative 7. GI and DVT prophylaxis
--- NOTE | 2021-02-20 14:50 | P.PN ---
Date of Service: 02/19/21 Subjective Patient continues to improve with no new changes. Anticipate discharge in a.m. Review of Systems 10-point ROS is otherwise unremarkable Physical Examination - Vital Signs Reviewed - Physical Exam General: Awake and alert and following commands Respiratory: Clear bilaterally Cardiovascular: Regular rate/rhythm, Normal S1 S2, No murmurs Gastrointestinal: Normal bowel sounds, Soft and benign, Non-distended, No tenderness Musculoskeletal: No clubbing, No swelling, No tenderness Neurological: Sensation intact, Cranial nerves 3-12 intact Assessment & Plan - Problems (Diagnosis) (1) Ascites Current Visit: No Status: Acute (2) Hepatic encephalopathy Current Visit: No Status: Acute (3) Hypoalbuminemia Current Visit: No Status: Acute (4) Liver cirrhosis Current Visit: No Status: Acute (5) Methamphetamine abuse Current Visit: No Status: Acute (6) Thrombocytopenia Current Visit: No Status: Acute - Plan Continue with plan of care as mentioned below 1. If tolerating diet will Hep-Lock IV 2. Continue lactulose; monitor ammonia level 3. Diet is tolerated Continue monitoring closely; start diet and advance as tolerated 4. Continue antibiotics and cultures still are negative 5. GI and DVT prophylaxis
--- NOTE | 2021-02-20 14:54 | P.DS ---
Discharge Date: 02/20/21 Primary Care Provider: unknown Reason for Admission: Hepatic encephalopathy - Problems (1) Ascites Current Visit: No Status: Acute (2) Hepatic encephalopathy Current Visit: No Status: Acute (3) Hypoalbuminemia Current Visit: No Status: Acute (4) Liver cirrhosis Current Visit: No Status: Acute (5) Methamphetamine abuse Current Visit: No Status: Acute (6) Thrombocytopenia Current Visit: No Status: Acute Brief History of Present Illness: 50-year-old female with history of advanced alcoholic cirrhosis of the liver, GERD, anemia of chronic disease, history of drug abuse and medical noncompliance presents emergency department for altered mental status. Patient reportedly staying at a hotel and found on the ground. Patient is brought in by EMS for evaluation to the emergency department, patient is extremely lethargic, altered, groans with verbal stimulus/tactile stimulus. Labs significant for white blood cell count 22.4 hemoglobin 8.1 hematocrit 26.0 INR 2.09 potassium 2.6 creatinine 1.81 GFR 29 magnesium 1.3 t bili 4.9, d bili 2.6 ammonia level 182 BNP 3004 urine drug screen positive for amphetamines urinalysis negative for infection. Patient has not previously had significant elevated leukocytosis as demonstrated during this emergency department visit, for this reason CT chest abdomen pelvis without contrast was ordered which demonstrated dilatation of several loops of small bowel with diffuse small bowel wall thickening and severe proximal colonic wall thickening, cirrhosis with sequelae of portal hypertension including splenomegaly numerous portosystemic varices, large volume ascites and splenorenal shunting. ED provider wishes to admit patient for further evaluation and management. Patient was given lactulose enema in the emergency department. Hospital Course: Patient continues to improve with no new complaint. Patient is clinically doing well. Patient was given lactulose per rectum this evening and will continue monitoring and advanced diet as tolerated. Patient is doing clinically well and she is wanting to go home. Will discontinue Henry catheter. Has all is patient voids we should be able to discharge patient home. Recommend continuing with la ctulose 4-6 times daily and she may also need to get started on Rifaximin. Vital Signs/Physical Exam: Temp Pulse Resp BP Pulse Ox 98.4 F 98 H 16 132/82 97 02/20/21 14:43 02/20/21 14:43 02/20/21 14:43 02/20/21 14:43 02/20/21 14:43 General: Alert, In no apparent distress, Oriented x3 Laboratory Data at Discharge: WBC 7.70 K/uL (4.3-10.9) D 02/20/21 06:18 Hgb 8.0 g/dL (12.0-15.0) L 02/20/21 06:18 Hct 25.3 % (36.0-45.0) L 02/20/21 06:18 Plt Count 78 K/uL (152-406) L 02/20/21 06:18 PT 24.1 SECONDS (9.5-12.5) H 02/18/21 08:59 INR 2.08 02/18/21 08:59 APTT 38.8 SECONDS (24.3-36.9) H 02/18/21 08:59 Sodium 140 mmol/L (136-145) 02/20/21 06:18 Potassium 3.5 mmol/L (3.5-5.1) 02/20/21 06:18 BUN 15 mg/dL (7-18) 02/20/21 06:18 Creatinine 0.62 mg/dL (0.55-1.3) 02/20/21 06:18 Glucose 133 mg/dL (74-106) H 02/20/21 06:18 Phosphorus 1.2 mg/dL (2.5-4.9) L 02/20/21 06:18 Magnesium 1.7 mg/dL (1.8-2.4) L 02/20/21 06:18 Total Bilirubin 3.6 mg/dL (0.2-1.0) H 02/20/21 06:18 AST 49 U/L (15-37) H 02/20/21 06:18 ALT 34 U/L (12-78) 02/20/21 06:18 Alkaline Phosphatase 111 U/L (45-117) 02/20/21 06:18 Home Medications: Furosemide 40 mg PO BID 06/24/20 Ciprofloxacin HCl 500 mg PO BID 7 Days #14 tablet 11/06/20 Lactulose 45 ml PO TID #4000 ml 11/06/20 Rifaximin [Xifaxan] 550 mg PO BID #60 11/24/20 Amlodipine [Norvasc*] 5 mg PO DAILY #30 tab 12/01/20 Spironolactone 1 tab PO DAILY 12/10/20 Physician Discharge Instructions: OK TO DC IV AND DC HOME FOLLOW-UP WITH PRIMARY CARE PROVIDER IN 1-2 WEEKS FOLLOW-UP WITH Gastroenterology in 1-2 weeks RETURN TO THE ER IF symptoms worsen CALL or TEXT DR. CRISTINA AT [phone] IF ANY QUESTIONS REGARDING HOSPITAL STAY. PLEASE CALL THE FLOOR AT [phone] IF ANY MEDICATION OR NURSING QUESTIONS. Diet: Regular Activity: Fall precautions Followup: Unknown,U [Primary Care Provider] - Time spent managing pt's care (in minutes): 35
[2021-02-20 16:12] VITALS: TEMP 98.5
[2021-02-20 16:45] VITALS: BP 165/91
== END 2021-02-20 16:31 | disposition home or self-care (01) | DRG 432 ==
LOC: ER 01:01 → ERHOLD 04:36 → 2ND 05:23 → ERHOLD 13:15 → 2ND 02-18 15:07
PROVIDERS: ADMIT Family Medicine; ATTEND Hospitalist
DX: K70.31 Alcoholic cirrhosis of liver with ascites (principal); E43 Unspecified severe protein-calorie malnutrition; I50.32 Chronic diastolic (congestive) heart failure; E72.20 Disorder of urea cycle metabolism, unspecified; K76.6 Portal hypertension; N17.9 Acute kidney failure, unspecified; E87.0 Hyperosmolality and hypernatremia; K72.90 Hepatic failure, unspecified without coma; I11.0 Hypertensive heart disease with heart failure; D63.8 Anemia in other chronic diseases classified elsewhere; K21.9 Gastro-esophageal reflux disease without esophagitis; Z88.0 Allergy status to penicillin; Z85.038 Personal history of other malignant neoplasm of large intestine; Z91.14 Patient's other noncompliance with medication regimen; Z79.899 Other long term (current) drug therapy; Z20.822 Contact with and (suspected) exposure to COVID-19; K52.9 Noninfective gastroenteritis and colitis, unspecified; D69.6 Thrombocytopenia, unspecified; E16.2 Hypoglycemia, unspecified; F15.10 Other stimulant abuse, uncomplicated; R16.1 Splenomegaly, not elsewhere classified; E86.0 Dehydration; E87.6 Hypokalemia; E83.51 Hypocalcemia; Z68.32 Body mass index [BMI] 32.0-32.9, adult
CPT/HCPCS: 36415; 36430; 49083; 70450; 71045; 71250; 72125; 74176; 76770; 80048; 80053; 80076; 80307; 80320; 80329; 81003; 81015; 81025; 82140; 82550; 82607; 82746; 82947; 83540; 83605; 83735; 83880; 84100; 84132; 84145; 84466; 84484; 85025; 85610; 85730; 86850; 86900; 86901; 86927; 87040; 87086; 87088; 93005; 97161; 97530; 99284; C9113; J0692; J0696; J1940; J2270; J3370; J3411; J3475; J3480; J7040; J7042; J7050; J7060; P9017; P9035; P9047; U0003

== ENCOUNTER 2021-03-23 09:59 | Inpatient (IN) | payer SELFPAY ==
--- OUTSIDE RECORDS SUMMARY | 2021-03-23 10:05 | XMS REPORT | Continuity of Care Document ---
:1970 Author Organization [facility] t Address [address] [place] [address] Care Team Providers Name Role Phone Minnie Strong MD Attending Clinician Bhavesh Becerril MD Attending Clinician MINNIE STRONG Attending Clinician Unavailable Tricia NGUYEN, G Attending Clinician Doctor Unassigned, Name Attending Clinician Unavailable Guillermina Bernstein Attending Clinician Unavailable Carl MAGANA S Attending Clinician Carito Nam MD Attending Clinician Ramesh PATEL Attending Clinician Gin Anthony MA Attending Clinician Unavailable Octavio Vivar MD Attending Clinician LEO Attending Clinician Unavailable Leo JEFF Attending Clinician Ni Moon MD Attending Clinician Merchant JEFF Attending Clinician Jennifer JEFF, Shahbaz Attending Clinician Feng JEFF, Sonia Attending Clinician Vasyl MCINTOSH, Clem Attending Clinician Gera JEFF, Norman Attending Clinician Kevin Newman MD Attending Clinician Olivia JEFF Attending Clinician Shane Attending Clinician Andrea JEFF Attending Clinician Lavon JEFF Attending Clinician Ramesh PATEL Admitting Clinician Admitting Clinician Unavailable Dalila JEFF Admitting Clinician Andrea JEFF Admitting Clinician Payers Payer Name Policy Type Policy Effective Date Expiration Date Sour ce Number BLUE CROSS/BLUE [id number] 2020 [facility] SHIELDBCBS PPO 00:00:00 - Medical POS EPO Center [id number], [place] [address]ZER Problems Condition Condition Condition Status Onset Resolution Last Treating Co mments Source Name Details Category Date Date Treatment Clinician Date Black Black Disease [facility] Cirrhosis Cirrhosis Disease Active [facility] Volume Volume Disease Active [facility] overload overload 1[facility] Allergies, Adverse Reactions, Alerts Allergy Allergy Status Severity Reaction(s) Onset Inactive Treating Comm ents Source Name Type Date Date Clinician ondanset DA Active [facility] [place] 00:[facility]: [facility] 00 are [place] Ondanset Drug Active Rash [facility] Hcl Allergy 1 [facility] - (Pf) 00:00: Medical 00 Center Social History Social Habit Start Date Stop Date Quantity Comments Source Sex Assigned [facility] Exposure to Not sure [facility] - SARS-CoV-2 [facility] (event) Tobacco use and 2021-03-12 2021-03-12 Never used [facility] jeanne - exposure 00:00:00 00:00:00 [facility] Alcohol intake 2021-03-12 2021-03-12 Ex-drinker [facility] - 00:00:00 00:00:00 (finding) [facility] Alcohol Comment 2021-03-12 2021-03-12 stopped [facility] [address] [facility] - 00:00:00 00:00:00 [facility] Smoking Status Start Date Stop Date Source Never smoker [facility] Medications Ordered Filled Start Stop Current Ordering Indication Dosage Frequency Signature Comments Components Source Medication Medication Date Date Medication? Clinician (SIG) Name Name spironolact 2021- No 100mg QD Take [address] one 10-25 tablet [facility] - (ALDACTONE) 00:00: 23:59 (100 mg Me dical 100 MG 00 :00 total) by Center tablet mouth daily. lactulose 2020- No 20g Q.[id number] Take [address] [facility] [address] (CHRONULAC) 10-24 [id number] by mouth 3 [facility] - 10 gram/15 15:10: 00:00 3D (three) Med ical mL (15 mL) 38 :00 times Center solution daily. rifAXIMin 2020- No 550mg Q.5D Take [address] 550 mg Tab 10-24 mg by [facility] - 15:10: 00:00 mouth 2 Medical 38 :00 (two) Center times daily. furosemide 2020- No 40mg QD Take [address] [address] (LASIX) 40 10-2408 by mouth Luke s - MG tablet 15:10: 00:00 daily. Medic al 38 :00 Center rifAXIMin 2020- Yes hepatic 550mg Q.5D Take [address] 550 mg Tab - encephalopa tablet [facility] - 00:00: thy (550 mg Medical 00 total) by Center mouth 2 (two) times daily. lactulose 2021- No 20g Q.[id number] Take [address] (CHRONULAC) 10-24 [id number] mLs (20 g [facility] - 10 gram/15 00:00: 23:59 3D total) by M edical mL (15 mL) 00 :00 mouth 3 Center solution (three) times daily. potassium No 20meq QD Take [address] chloride SA 10-24 tablet (20 L uk - (K-DUR,KLOR 00:00: 23:59 mEq total) Medical -CON) 20 00 :00 by mouth Center MEQ tablet daily. furosemide No Take [address] [facility] (LASIX) 40 10-2415 tablet (40 Mita kes - MG tablet 00:00: 23:59 mg total) Me dical 00 :00 by mouth 2 Center (two) times daily for 7 days, THEN 1 tablet (40 mg total) daily for 90 days. pantoprazol No 40mg Q.5D Take [address] [facility] [address] e 10-24 tablet (40 [facility] - (PROTONIX) 00:00: 23:59 mg total) M edical 40 MG 00 :00 by mouth 2 Center tablet (two) times daily for 30 days. Vital Signs Vital Name Observation Time Observation Value Comments Source Systolic blood 2021-03-12 13:31:00 141 mm[Hg] [facility] Diastolic blood 2021-03-12 13:31:00 92 mm[Hg] [facility] S [facility] Heart rate 2021-03-12 13:31:00 111 /min [facility] Body temperature 2021-03-12 13:31:00 36.78 Tamar [facility] Respiratory rate 2021-03-12 13:31:00 20 /min [facility] Body height 2021-03-12 13:31:00 162.6 cm [facility] Body weight 2021-03-12 13:31:00 79.379 kg [facility] BMI 2021-03-12 13:31:00 30.04 kg/m2 [facility] Oxygen saturation in 2021-03-12 13:31:00 100 /min [facility] Arterial blood by Medical Ce nter Pulse oximetry Procedures Procedure Date / Time Performed Performing Clinician Soursofia e CBC W/PLT COUNT & AUTO 2021-03-12 14:33:[facility] 2021-03-12 14:33:00 Ligia [facility] PT/APTT 2021-03-12 14:33:00 [facility] L[facility] 2021-03-12 14:33:00 Ligia [facility] ECG 12-LEAD 2021-03-12 14:25:26 Ligia [facility] REPORT OF PROCEDURE - 2021-03-12 00:00:00 ProviderCameron [facility] ENDOSCOPY SCAN Scanning [facility] US ABDOMEN LIMITED 2020-10-24 14:23:00 Merchant [facility] 2020-10-24 02:19:00 [facility] W/[facility]T [facility] & AUTO 2020-10-24 02:19:00 Merchant Silvio [facility] PROTHROMBIN TIME/INR 2020-10-24 02:19:00 Merchant [facility] REPORT OF PROCEDURE - 2020-10-23 13:12:14 Ruth Toney [facility] UPPER ENDOSCOPY 2020-10-23 09:39:00 Ruth Toney [facility] MAGNESIUM 2020-10-23 05:15:00 Merchant [facility] 2020-10-23 05:15:00 [facility] HEMOGLOBIN AND HEMATOCRIT 2020-10-23 05:14:00 Merchant Silvio [facility] CBC W/PLT COUNT & AUTO 2020-10-23 05:14:00 Merchant Silvio [facility] PROTHROMBIN TIME/INR 2020-10-23 05:14:00 Sanjay [facility] HEPATITIS C PCR, 2020-10-23 05:14:00 Sanjay [facility] HEPATITIS C GENOTYPE 2020-10-23 05:14:00 Sanjay [facility] HEPATITIS PANEL, ACUTE 2020-10-23 05:14:00 Sanjay, [facility] [id number]\\, 2020-10-23 05:14:00 Sanjay [facility] ALPHA FETOPROTEIN (AFP), 2020-10-23 05:14:00 Sanjay, [facility] TUMOR MARKER [facility] CERULOPLASMIN 2020-10-23 05:14:00 Sanjay, [facility] FERRITIN 2020-10-23 05:14:00 Sanjay [facility] IRON, TIBC, % SAT. 2020-10-23 05:14:00 Sanjay, [facility]WITHOUT FERRITIN[facility] 2020-10-23 05:14:00 Sanjay [facility] FOLATE, SERUM 2020-10-23 05:14:00 Sanjay [facility] RETICULOCYTE COUNT 2020-10-23 05:14:00 Sanjay [facility] ACTIN (SMOOTH MUSCLE) 2020-10-23 05:14:00 Sanjay, [facility] - ANTIBODY, IGG [facility] ANTI-NUCLEAR ANTIBODY 2020-10-23 05:14:00 Sanjay, [facility] (LUCAS) [facility] ANTI-MITOCHONDRIAL AB, 2020-10-23 05:14:00 Sanjay, [facility] - REFLEX TO TITER [facility] HEPATITIS B CORE 2020-10-23 05:14:00 Sanjay, [facility] - ANTIBODY, TOTAL [facility] HEPATITIS A ANTIBODY, IGG 2020-10-23 05:14:00 Sanjay [facility] MITOCHONDRIAL AB SCREEN 2020-10-23 05:14:00 Sanjay [facility] MITOCHONDRIAL AB TITER 2020-10-23 05:14:00 Eusebio [facility] US ABDOMINAL WITH DOPPLER 2020-10-22 21:15:00 Silvio [facility] URINALYSIS W/ REFLEX 2020-10-22 17:23[facility] SARS-COV2/RT-PCR ([facility] & 2020-10-22 15:22:00 Merchant [facility] REF LABS) [facility] BLOOD CULTURE 2020-10-22 15:07:00 Merchant [facility] CBC W/PLT COUNT & AUTO 2020-10-22 14:07:00 [facility] BASIC METABOLIC PANEL (7) 2020-10-22 14:07:00 Mandie Moon [facility] HEPATIC FUNCTION PANEL 2020-10-22 14:07:[address] [facility] TROPONIN I 2020-10-22 14:07:00 Sarai [facility] ECG 12-LEAD 2020-10-22 14:01:12 Unknown, Hl7 Doctor [facility] XR CHEST 1 VIEW 2020-10-22 13:46:00 Silvio Riggs [facility] PORTABLE/BEDSIDE [facility] REPORT OF PROCEDURE - 2020-10-22 00:00:00 Provider, Cameron [facility] ENDOSCOPY SCAN Scanning [facility] Plan of Care Planned Activity Planned Date Details Comments Source Future Scheduled 2021-06-[address] [facility] - Test 00:00:00 (Season Ended) [code Medical Center = INFLUENZA VACCINE (Season Ended)] Future Scheduled 2020-10-[address] [facility] - Test 00:00:00 (12+) [code = Medical Center DEPRESSION SCREENING (12+)] Future Scheduled 2018 SHINGLES VACCINES ([address] [facility] - Test 00:00:00 of 2) [code = Medical Center SHINGLES VACCINES (1 of 2)] Future Scheduled [address] - Test 00:00:00 (procedure) [code = Medical Center 72336142] Future Scheduled [address] [facility] - Test 00:00:00 malignant neoplasm of Medica l Center cervix (procedure) [code = 969718733] Future Scheduled 1987 DTAP/TDAP/TD VACCINES [facility] Test 00:00:00 (1 - Tdap) [code = Medical C enter DTAP/TDAP/TD VACCINES (1 - Tdap)] Future Scheduled 1980 COVID-19 VACCINE (1) [facility] - Test 00:00:00 [code = COVID-[address] VACCINE (1)] Future Scheduled [address] [facility] Test 00:00:00 [facility] breast (procedure) [code = 444035852] Future Scheduled [address] [facility] - Test 00:00:00 [facility] colon (procedure) [code = 135965663] Encounters Start End Encounter Admission Attending Care Care Encounter Source Date/Time Date/Time Type Type Clinicians Facility Department ID 2021-03-02 2021-03-02 Emergency [facility] [id number] 13:50:00 18:58:00 Lucila Means [id number] [place] 4.2.7.2.686 [place] [id number] 2021-03-02 2021-03-02 Orders Doctor NARENDRA [id number] 00:00:00 00:00:00 Only UnassignedSTAR [id number] [place] [facility] 4.2.7.2.686 [id number] 2021-01-18 2021-01-21 [facility] Marianne Henry [facility] [id number] 20:56:00 13:40:00 Encounter Balta Nam 350.1.13.1 0 [place] 4.2.7.2.686 [place] [id number] 2020-10-13 2020-10-13 Patient Diane Fallon [id number] 00:00:00 00:00:00 Outreach E Pham [id number] [place] 4.2.7.2.686 [id number] 2020-10-01 2020-10-03 [facility] Ruben Boss [facility] [id number] [id number] 14:36:00 10:48:00 Encounter Kevin Newman [facility] 350.1.13 .10 Olivia Joshuasoniajoie [place] 4.2.7.2.686 [place] [id number] Hospital 109 ([facility]) 2020-09-29 2020-09-29 Patient Diane Fallon [id number] 00:00:00 00:00:00 Outreach E Pham [id number] [place] 4.2.7.2.686 [id number] 2020-09-25 2020-09-25 Transition Dar Lynn [id number] 00:00:00 00:00:00 of Care Valerie Yiy [id number] [place] 4.2.7.2.686 [id number] 2020-09-22 2020-09-24 [facility] Balta Nam [facility] 1.2.840. [id number] 05:04:00 10:44:00 Encounter Alondra [facility] [id number] [place] 4.2.7.2.686 [place] [id number] Hospital 111 ([facility]) 2020-06-30 2020-06-30 [facility] [id number] 14:48:00 18:31:00 Hugo Means 350.1.13.10 [place] 4.2.7.2.686 [place] [id number] 2019-06-11 2019-06-11 Orders Doctor MACKEY [id number] 00:00:00 00:00:00 Only Unassigned, STAR 350.1.13.10 [place] [facility] 4.2.7.2.686 [id number] 2019-05-11 2019-05-11 Emergency KAMRAN Henry [id number] 10:42:22 12:29:00 Marianne Means 350.1.13.10 [place] 4.2.7.2.686 [place] [id number] [id number] Results Test Description Test Time Test Comments Results Result Sourc e Comments ECG 12 lead 2021-03-13 Interface, External [facility] 13:43:01 Ris In - 03/13/2021 - Med ical 1:43 PM Center CDTVentricular Rate 111 BPMAtrial Rate 111 BPMP-R Interval 130 msQRS Duration 72 msQ-T Interval 354 msQTC Calculation(Bazett) 481 msP [place] 73 degreesR [place] 12 degreesT [place] 26 degreesSinus tachycardiaLow voltage QRSCannot rule out Anterior infarct (cited on or before 12-MAR-2021)Abnorma l ECGWhen compared with ECG of 22-OCT-2020 14:01,T wave inversion more evident in Anterior leadsConfirmed by Antonio Hoffman ([id number]) on 03/13/2021 1:42:58 PM Comprehensive metabolic panel 2021-03-12 15:00:00 Test Item Value Reference Range Interpretation Comme nts Protein, Total (test 6.2 See_Comment Specime n slightly code = 2885-2) hemolyzed [Au tomated message] The sy stem which generated this result transmit joseph reference range : 6.0 - 8.3 gm/dL. The reference range was not u sed to interpret this result as normal/abnormal . Albumin (test code = 2.3 g/dL 3.5-5 L Specime n slightly 25092-1) hemolyzed Alkaline Phosphatase 117 U/L 40-150 (test code = 6768-6) Total Bilirubin (test 4.4 mg/dL 0.2-1.2 H Specim en slightly code = 1975-2) hemolyzed Sodium (test code = 142 meq/L 513-909 9835-2) Potassium (test code = 3.3 meq/L 3.5-5.1 L Speci men slightly 2823-3) hemolyzed Chloride (test code = 104 meq/L 98-107 2075-0) CO2 (test code = 29 meq/L 22-29 8-9) BUN (test code = 35 mg/dL 7-21 H 3094-0) Creatinine (test code = 2.37 mg/dL 0.57-1.25 H Spec imen slightly 2160-0) hemolyzed Glucose (test code = 95 mg/dL 70-105 2345-7) Calcium (test code = 8.3 mg/dL 8.4-10.2 L 30715-8) AST (test code = 90 U/L 5-34 H Specimen sl ightly 1920-8) hemolyzed ALT (test code = 38 U/L 6-55 Specimen sl ightly 1742-6) hemolyzed EGFR (test code = 22 mL/min/1.73 [place] [address]-5) ACCURATE CRE ATININE CLEARANCE IN SC EDICTING GLOMERULAR FILT RATION RATE. ESTIMATED GFR IS NOT APPLICABLE FOR DIALYSIS PATIEN TS. MADDIE (test code = MADDIE) Public Relations Officer ID - DBSpecimen moderately icteric Lab Interpretation Abnormal (test code = 94722-0) [facility] [id number] 15:00:00 Test Item Value Reference Range Interpretation Comments TOTAL PROTEIN 6.2 gm/dL 6.0-8.3 Specimen sligh tly (BEAKER) (test code = hemoly zed 770) ALBUMIN (BEAKER) 2.3 g/dL 3.5-5.0 L Specimen sl ightly (test code = 1145) hemolyzed ALKALINE PHOSPHATASE 117 U/L 40-150 (BEAKER) (test code = 346) BILIRUBIN TOTAL 4.4 mg/dL 0.2-1.2 H Specimen sli ghtly (BEAKER) (test code = hemoly zed 377) SODIUM (BEAKER) (test 142 meq/L 136-145 code = 381) POTASSIUM (BEAKER) 3.3 meq/L 3.5-5.1 L Specimen slightly (test code = 379) hemolyzed CHLORIDE (BEAKER) 104 meq/L 98-107 (test code = 382) CO2 (BEAKER) (test 29 meq/L 22-29 code = 355) BLOOD UREA NITROGEN 35 mg/dL 7-21 H (BEAKER) (test code = 354) CREATININE (BEAKER) 2.37 mg/dL 0.57-1.25 H Specimen slightly (test code = 358) hemolyzed GLUCOSE RANDOM 95 mg/dL 70-105 (BEAKER) (test code = 652) CALCIUM (BEAKER) 8.3 mg/dL 8.4-10.2 L (test code = 697) AST (SGOT) (BEAKER) 90 U/L 5-34 H Specimen slightly (test code = 353) hemolyzed ALT (SGPT) (BEAKER) 38 U/L 6-55 Specimen slightly (test code = 347) hemolyzed EGFR (BEAKER) (test 22 mL/min/1.73 ESTIMA JOESPH GFR IS code = 1092) sq m NOT ACCURATE CREATININE CLEARANCE IN PREDICTING GLOMERULAR FILTRATION RATE . ESTIMATED GFR I S NOT APPLICABLE FOR DIALYSIS PATIEN TS. Public Relations Officer ID - DBSpecimen moderately [id number] 14:59:00 Test Item Value Reference Range Interpretation Comments Lipase (test code = 158 U/L 8-78 H 3040-3) MADDIE (test code = MADDIE) Public Relations Officer ID - DBSpecimen moderately icteric Lab Interpretation (test Abnormal code = 72237-8) [facility] 14:59:00 Test Item Value Reference Range Interpretation Comments LIPASE (BEAKER) (test code = 749) 158 U/L 8-78 H Public Relations Officer ID - DBSpecimen moderately ictericPT/[id number] 14:49:00 Test Item Value Reference Interpretation Comments Range Protime (test code = 16.0 See_Comment H [Autom ated 5902-2) message] The system which generated this result transmitted reference range : 11.9 - 14.2 seconds. The reference range was not used to interpret this result as normal/abnormal . INR (test code = 1.33 See_Comment [Automated 4461-6) message] The system which generated this result transmitted reference range : <=5.90. The reference range was not used to interpret this result as normal/abnormal . PTT (test code = 28.0 See_Comment [Automated 32428-3) message] The system which generated this result transmitted reference range : 22.5 - 36.0 seconds. The reference range was not used to interpret this result as normal/abnormal . MADDIE (test code = RECOMMENDED MADDIE) COUMADIN/WARFARIN INR THERAPY RANGESSTANDARD DOSE: 2.0 - 3.0 Includes: PROPHYLAXIS for venous thrombosis, systemic embolization; TREATMENT for venous thrombosis and/or pulmonary embolus.HIGH RISK: Target INR is 2.5-3.5 for patients with mechanical heart valves. Lab Interpretation Abnormal (test code = 61973-0) [facility][id number] 14:49:00 Test Item Value Reference Range Interpretation Comments PROTIME (BEAKER) (test 16.0 seconds 11.9-14.2 H code = 759) INR (BEAKER) (test 1.33 See_Comment [Automat ed code = 370) message] The Agent Partner stem which generated this result transmitted reference range : <=5.90. The reference range was not used to interpret this result as normal/abnormal . PARTIAL THROMBOPLASTIN 28.0 seconds 22.5-36.0 TIME (BEAKER) (test code = 760) RECOMMENDED COUMADIN/WARFARIN INR THERAPY RANGESSTANDARD DOSE: 2.0 - 3.0 Includes: PROPHYLAXIS forvenous thrombosis, systemic embolization; TREATMENT for venous thrombosis and/or pulmonary embolus.HIGH RISK: Target INR is 2.5-3.5 for patients with mechanical heart valves.CBC with platelet count + automated diff 2021-03-12 14:41:00 Test Item Value Reference Range Interpretation Comments WBC (test code = 6690-2) 5.7 See_Comment [A utomated message] The system Qustodian generated this result transmitted ref erence range: 3.5 - 10 .5 K/L. The refe rence range was not u sed to interpret this result as normal/abnor mal. RBC (test code = 789-8) 3.14 See_Comment L [Au tomated message] The system Qustodian generated this result transmitted ref erence range: 3.93 - 5 .22 M/L. The refe rence range was not u sed to interpret this result as normal/abnor mal. MCHC (test code = 786-4) 30.2 See_Comment L [A utomated message] The system [employer]ust[employer]ian generated this result transmitted ref erence range: 32.2 - 3 5.5 GM/DL. The refe rence range was not u sed to interpret this result as normal/abnor mal. Hematocrit (test code = 29.5 % 34.1-44.9 L 4544-3) MCV (test code = 787-2) 93.9 fL 79.4-94.8 MCH (test code = 785-6) 28.3 pg 25.6-32.2 RDW (test code = 788-0) 16.4 % 11.7-14.4 H Platelets (test code = 96 See_Comment L [Aut omated message] 777-3) The system [employer]ust[employer]ian generated this result transmitted ref erence range: 150 - 45 0 K/CU MM. The referen ce range was not u sed to interpret this result as normal/abnor mal. MPV (test code = 12.8 fL 9.4-12.3 H 41668-5) nRBC (test code = 413) 0 See_Comment [Aut omated message] The system [employer]ustodian generated this result transmitted ref erence range: 0 - 0 /1 00 WBC. The refere nce range was not u sed to interpret this result as normal/abnor mal. % Neutros (test code = 53 % 429) % Lymphs (test code = 26 % 430) % Monos (test code = 11 % 431) % Eos (test code = 432) 8 % % Baso (test code = 437) 2 % # Neutros (test code = 3.06 See_Comment [Aut omated message] 670) The system [employer]ustodian generated this result transmitted ref erence range: 1.56 - 6 .13 K/L. The refe rence range was not u sed to interpret this result as normal/abnor mal. # Lymphs (test code = 1.47 See_Comment [Auto mated message] 414) The system [employer]ian generated this result transmitted ref erence range: 1.18 - 3 .74 K/L. The refe rence range was not u sed to interpret this result as normal/abnor mal. # Monos (test code = 0.63 See_Comment H [Autom ated message] 415) The system [employer]ustodian generated this result transmitted ref erence range: 0.24 - 0 .36 K/L. The refe rence range was not u sed to interpret this result as normal/abnor mal. # Eos (test code = 416) 0.47 See_Comment H [Au tomated message] The system Qustodian generated this result transmitted ref erence range: 0.04 - 0 .36 K/L. The refe rence range was not u sed to interpret this result as normal/abnor mal. # Baso (test code = 417) 0.09 See_Comment H [A utomated message] The system Qustodian generated this result transmitted ref erence range: 0.01 - 0 .08 K/L. The refe rence range was not u sed to interpret this result as normal/abnor mal. Immature 0 % 0-1 Granulocytes-Relative (test code = 2801) Lab Interpretation (test Abnormal code = 49910-1) [facility] W/PLT COUNT & AUTO [id number] 14:41:00 Test Item Value Reference Range Interpretation Comments WHITE BLOOD CELL COUNT (BEAKER) 5.7 K/ L 3.5-10.5 (test code = 775) RED BLOOD CELL COUNT (BEAKER) 3.14 M/ L 3.93-5.22 L (test code = 761) HEMOGLOBIN (BEAKER) (test code = 8.9 GM/DL 11.2-15.7 L 410) HEMATOCRIT (BEAKER) (test code = 29.5 % 34.1-44.9 L 411) MEAN CORPUSCULAR VOLUME (BEAKER) 93.9 fL 79.4-94.8 (test code = 753) MEAN CORPUSCULAR HEMOGLOBIN 28.3 pg 25.6-32.2 (BEAKER) (test code = 751) MEAN CORPUSCULAR HEMOGLOBIN CONC 30.2 GM/DL 32.2-35.5 L (BEAKER) (test code = 752) RED CELL DISTRIBUTION WIDTH 16.4 % 11.7-14.4 H (BEAKER) (test code = 412) PLATELET COUNT (BEAKER) (test code 96 K/CU MM 150-450 L = 756) MEAN PLATELET VOLUME (BEAKER) 12.8 fL 9.4-12.3 H (test code = 754) NUCLEATED RED BLOOD CELLS (BEAKER) 0 /100 WBC 0-0 (test code = 413) NEUTROPHILS RELATIVE PERCENT 53 % (BEAKER) (test code = 429) LYMPHOCYTES RELATIVE PERCENT 26 % (BEAKER) (test code = 430) MONOCYTES RELATIVE PERCENT 11 % (BEAKER) (test code = 431) EOSINOPHILS RELATIVE PERCENT 8 % (BEAKER) (test code = 432) BASOPHILS RELATIVE PERCENT 2 % (BEAKER) (test code = 437) NEUTROPHILS ABSOLUTE COUNT 3.06 K/ L 1.56-6.13 (BEAKER) (test code = 670) LYMPHOCYTES ABSOLUTE COUNT 1.47 K/ L 1.18-3.74 (BEAKER) (test code = 414) MONOCYTES ABSOLUTE COUNT (BEAKER) 0.63 K/ L 0.24-0.36 H (test code = 415) EOSINOPHILS ABSOLUTE COUNT 0.47 K/ L 0.04-0.36 H (BEAKER) (test code = 416) BASOPHILS ABSOLUTE COUNT (BEAKER) 0.09 K/ L 0.01-0.08 H (test code = 417) IMMATURE GRANULOCYTES-RELATIVE 0 % 0-1 PERCENT (BEAKER) (test code = 2801) [id number] 00:00:00Ordered by an unspecified provider.[facility] OaklandCYTO2021-[facility]-26 11:52:00 Test Item Value Reference Range Interpretation Comments CYTO (test code = CYTO) RUN DATE: 01/09/21 [facility] LAB *LIVE* PAGE 1 RUN TIME: 1152 Specimen Inquiry RUN USER: INTERFACE PATIENT: DWAIN HANSEN LOC: NC.MS3 U #: [id number] AGE/SX: 50/F ROOM: [place] [address] RE01/06/21[facility] DR: Dru Platt MD : [birth year] BED: 1 DIS: 01/08/21 STATUS: DIS IN TLOC: SPEC #: [id number] RECD: 01/08/21 STATUS: [place] REQ #: [id number] JAX: 01/07/21-[address] [facility] [address]: Dru Platt MD ENTERED: 01/08/21 SP TYPE: CYTO OTHR DR: No Primary or Family Physician Self Referred Janneth March MD, Ayub MDORDERED: CELL BLOCK, THIN PREP TISSUES: ASCITES FLUID - ASCITES FLUID FINAL MICROSCOPIC DIAGNOSIS ASCITES FLUID, CYTOLOGIC EVALUATION (THINPREP AND CELL BLOCK): - NO MALIGNANT CELLS IDENTIFIED - DESCRIPTIVE DIAGNOSIS: REACTIVE MESOTHELIAL CELLS, MIXED ACUTE/CHRONIC INFLAMMATORY CELLS (MOSTLY NEUTROPHILS) AND HISTIOCYTES CPT 48419, 95225 GROSS DESCRIPTION Received and labeled "Ascites", are 1100 ml of carlos fluid. The fluid is set in cytolyt solution for a Thin Prep slide preparation which is stained with Pap stain. A cell block is also performed. Signed SIGNATURE ON FILE Sukhwinder Coe 01/09/21 1152 END OF REPORT [id number] 15:15:00 Test Item Value Reference Range Interpretation [...] H PHOSPHATASE (test code = ALKP) PROTHROMBIN [id number] 06:22:00 Test Item Value Reference Range Interpretation [...] and/or recurren t systemicemboliz ation. CBC W/AUTO [id number] 06:11:00 Test Item Value Reference Range Interpretation [...] 10 3/uL 0.0-0.1 N UR SMEAR EOSINOPHIL [id number] 16:07:00 Test Item Value Reference Range Interpretation Comments UR SMEAR EOSINOPHIL COUNT (test code NEGATIVE NEGATIVE = EOSCTU) BASIC METABOLIC [id number] 15:04:00 Test Item Value Reference Range Interpretation [...] L CA) UA RFLX MICR CULT IF [id number] 14:31:00 Test Item Value Reference Range Interpretation [...] Indication for culture: Suprapubic Pain- DUP VEIN [id number] 12:03:00 [facility] CYPRESSName: DWAIN HANSEN : 1970 Sex: FPatient Name: DWAIN HANSEN Unit No: [id number] EXAMS: CPT CODE: [id number] DUP VEIN KACI 08685 Exam: Bilateral lower extremity venous Doppler ultrasound [...] Date/Time: 01/07/2021 (1203)Orig Print D/T: S: 01/07/2021 (3367) [facility] [place] [place] [address] : 1970 Age: 50 Sex: [place] [phone] Loc: [facility] Exam Date: 01/07/2021 Status: ADM IN PH: FAX: PAGE 1 Signed Report- US PARACENTESIS W IMAGE 2021-01-07 11:29:00 [facility] CYPRESSName: DWAIN HANSEN : 1970 Sex: FPatient Name: DWAIN HANSEN Unit No: [id number] EXAMS: CPT CODE: [id number] US PARACENTESIS W IMAGE 30242 ULTRASOUND-GUIDED PARACENTESIS DICTATION LOCATION: A1 History: New [...] Print D/T: S: 01/07/2021 (1132) Name: DWAIN HANSEN [facility] [place]: [place] [address] : 1970 Age: 50 Sex: [place] [phone] Loc: [facility]NAY Exam Date: 01/07/2021 Status: ADM IN PH: FAX: PAGE 1 Signed ReportMAGNESIUM 2021-01-07 07:48:00 Test Item Value Reference Range Interpretation Comments MAGNESIUM (test code = MAG) 2.0 mg/dL 1.8-2.4 N THYROID PROFILE [id number] 07:48:00 Test Item Value Reference Range Interpretation Comments T3 UPTAKE (test code = T3UP) 45.0 % 31.0-39.0 H T4 (THYROXINE) (test code = T4) 4.5 ug/dL 4.7-11.4 L T7 (FREE THYROXINE INDEX) (test 2.0 % 1.7-4.2 N code = T7) THYROID STIMULATING HORMONE (test 2.89 mIU/mL 0.36-3.74 N code = TSH) COMPREHENSIVE METABOLIC [id number] 04:37:00 Test Item Value Reference Range Interpretation [...] H PHOSPHATASE (test code = ALKP) LACTIC [id number] 04:37:00 Test Item Value Reference Range Interpretation Comments LACTIC ACID (test code = LACT) 1.9 mmol/L 0.4-2.0 N PROTHROMBIN [id number] 04:35:00 Test Item Value Reference Range Interpretation [...] and/or recurren t systemicemboliz ation. CBC W/AUTO [id number] 04:13:00 Test Item Value Reference Range Interpretation [...] BA#) 0.06 10 3/uL 0.0-0.1 N LACTIC [id number] 01:29:00 Test Item Value Reference Range Interpretation Comments LACTIC ACID (test 2.2 mmol/L 0.4-2.0 H Elevated L actate code = LACT) reported to the following Caregiver:Full Name/Title: KYLIE GARCIA RNby NARCISAM, on 01/07/21, @ 012 9 LACTIC [id number] 22:09:00 Test Item Value Reference Range Interpretation Comments LACTIC ACID (test 2.2 mmol/L 0.4-2.0 H Elevated L actate code = LACT) reported to the following Careg iver:Full Name/Title: GRETA SCHULZ RN by JASBIR, on 01/06/21, @ 220 4 RN CHECKING TO SEE IF NEEDEDPROTHROMBIN [id number] 18:37:00 Test Item Value Reference Range Interpretation [...] and/or recurren t systemicemboliz ation. THROMBOPLASTIN TIME [id number] 18:37:00 Test Item Value Reference Range Interpretation Comments THROMBOPLASTIN TIME PARTIAL 40.6 SECONDS 25.1-36.5 H (test code = PTT) [id number] 18:06:00 Test Item Value Reference Range Interpretation [...] 0-100 N - CT ABD PELVIS W/O [id number] 16:18:00 [facility] CYPRESSName: DWAIN HANSEN : 1970 Sex: FPatient Name: DWAIN HANSEN Unit No: [id number] EXAMS: CPT CODE: [id number] CT ABD PELVIS W/O CONT 42977 Site ID: [id number] CLINICAL HISTORY: Liver failure, [...] by: Choco Hart MD CC: Kia Worley PARA MACHINE OPERATOR; Eric Brito Jr, MD Technologist: Leta Gilmore CTDI: 25.95 DLP: 1420.0 Trscr Dt/Tm: 01/06/2021 (1617) by:[email or web address] Electronic Signature Date/Time: 01/06/2021 (1617)Orig Print D/T: S: 01/06/2021 (1620) Name: DWAIN HANSEN [facility] [place] Phys: Kia Elizondo [address] : 1970 Age: 50 Sex: [place] [phone] Loc: NM.ERS Exam Date: 01/06/2021 Status: REG ER PH: FAX: PAGE 1 Signed ReportB-TYPE NATRIURETIC [id number] 15:14:00 Test Item Value Reference Range Interpretation Comments B-TYPE NATRIURETIC PEPTIDE (test 77 pg/mL 0-100 N code = BNP) BASIC METABOLIC [id number] 15:00:00 Test Item Value Reference Range Interpretation [...] DATE OF LAST MENSTRUAL PERIOD: 01/07/20LIVER FUNCTION [id number] 15:00:00 Test Item Value Reference Range Interpretation [...] = ALKP) DATE OF LAST MENSTRUAL PERIOD: 01/07/[id number] 15:00:00 Test Item Value Reference Range Interpretation Comments LIPASE (test code = LIP) 212 U/L 73-393 N DATE OF LAST MENSTRUAL PERIOD: 01/07/20HCG SERUM [id number] 15:00:00 Test Item Value Reference Range Interpretation Comments HCG SERUM QUAL (test code = HCGQL) NEGATIVE NEGATIVE DATE OF LAST MENSTRUAL PERIOD: 01/07/[id number] 15:00:00 Test Item Value Reference Range Interpretation Comments TROPONIN-I (test code = TROPI) < 0.02 ng/mL 0.00-0.07 N DATE OF LAST MENSTRUAL PERIOD: 01/07/20LACTIC [id number] 15:00:00 Test Item Value Reference Range Interpretation Comments LACTIC ACID (test 2.5 mmol/L 0.4-2.0 H Elevated L actate code = LACT) reported to the following Caregiver:Full Name/Title: JAKOB JUAN FRANCISCO PATTERSON MDby NCLAB.JQ, on 01/06/21, @ 150 0 Coronavirus 2019 nCoV [id number] 14:55:00 Test Item Value Reference Range Interpretation Comments Coronavirus 2019 Negative Negative This test h ad not been FDA nCoV Bedside cleared or appr [place]; This (test code = testhas been au thorized by [id number]) FDA under an E UA for use byauthorized la boratories only for the de tection of nucleicacid fro m SARS-CoV-2, not for any oth er viruses orpathogens. ID NOW COVID-19 assay performed on the ID NOWInstrument i s a rapid molecular in vi [...] Sharon ndments of 1987 (CLIA), BASIC METABOLIC [id number] 14:45:00 Test Item Value Reference Range Interpretation [...] DATE OF LAST MENSTRUAL PERIOD: 01/07/20LIVER FUNCTION [id number] 14:45:00 Test Item Value Reference Range Interpretation [...] 45-117 ALKP) DATE OF LAST MENSTRUAL PERIOD: 01/07/[id number] 14:45:00 Test Item Value Reference Range Interpretation Comments LIPASE (test code = LIP) U/L 73-393 DATE OF LAST MENSTRUAL PERIOD: 01/07/20HCG SERUM [id number] 14:45:00 Test Item Value Reference Range Interpretation Comments HCG SERUM QUAL (test code = HCGQL) NEGATIVE NEGATIVE DATE OF LAST MENSTRUAL PERIOD: 01/07/[id number] 14:45:00 Test Item Value Reference Range Interpretation Comments TROPONIN-I (test code = TROPI) ng/mL 0.00-0.07 DATE OF LAST MENSTRUAL PERIOD: 01/07/20CBC W/AUTO [id number] 14:33:00 Test Item Value Reference Range Interpretation [...] 3/uL 0.0-0.1 N - XR CHEST 1 [id number] 13:20:00 [facility] [place]: DWAIN HANSEN : 1970 Sex: FPatient Name: DWAIN HANSEN Unit No: [id number] EXAMS: CPT CODE: [id number] XR CHEST 1 V 33906 CHEST, SINGLE VIEW DICTATION LOCATION T2TMCESYN: Abdominal pain. A single view of the [...] Noel Bach Jr, MD CC: Kia Worley PARA MACHINE OPERATOR; Eric Brito Jr, MD Technologist: Hina Richardson Fluoro Time: DAP (Gy m2): Air Kerma (mGy): Trscr Dt/Tm: 01/06/2021 (1320) by:HeatherFAM Electronic Signature Date/Time: 01/06/2021 (1320)Orig Print D/T: S: 01/06/2021 (1323) Name: DWAIN HANSEN [facility] [place] Phys: LOPKA.01 - Kia Worley [address] : 1970 Age: 50 Sex: [place] [phone] Loc: [place].ERS Exam Date: 01/06/2021 Status: REG ER PH: FAX: PAGE 1 Signed ReportHepatitis C [id number] 20:39:00 Test Item Value Reference Range Interpretation Comments HCV 3 The method used in this Genotype, test is RT-PCR and LiPA (test reversehybridiz ation (Line code = Probe) of the 5 ' UTR and ) coreregion of t he HCV genome. The lucas lytical performance lance racteristics of thisassay frey ve been determined by [facility]osticsInfe ctious Disease. The mo difications have not beencl eared or approved by the FDA. This assay has beenv alidated pursuant to the CLIA regulations and isused for clinical purpos es. For additional info rmation, please refer tohttp://educat ion.Accertify /faq/HCVGenotyp ing(This link id being p rovided for informational/e ducational purposes only.) MADDIE (test Performing Lab code = MADDIE) *QDID [facility] [address] [place] [address] Arnie Phillips MD [facility] OaklandActin (Smooth Muscle) Antibody, [id number] 01:39:00 Test Item Value Reference Interpretation Comments Range Anti-Smooth Muscle 23 U See Note: H Reference Range:<20 Ab (test code = NEGATI VE> OR ) = 20 POSITIVE Antibodies recognizing act in are the main componentof smo oth muscle antibodi es associated withautoimmune liver disease. Actin antibodie s arefound in approximately 7 5% of patients withautoimmune hepatitis (AIH) type 1, rmexahmcsscdg32 % of patients with autoimmune cholangitis,mary bi mately 30% of patients with primary biliarycirrhosi s, and approximate ly 2% of healthy people.High barb ues are closely correlated with AIH type 1. MADDIE (test code = Performing Lab MADDIE) EZ [facility] [address] [place] [address] Wilder Ochoa MD, PhD, BEATRICE Lab Interpretation Abnormal (test code = 22990-0) [facility] OaklandBlood Culture - Routine (Right Venipuncture) 2020-10-27 18:00:00 Test Item Value Reference Range Interpretation Comments Result (test code = No growth in 5 days 6463-4) [facility] OaklandBLOOD [id number] 18:00:00 Test Item Value Reference Range Interpretation Comments CULTURE (BEAKER) (test No growth in 5 days code = 1095) ANTI-MITOCHONDRIAL AB, REFLEX TO [id number] 10:14:00 Test Item Value Reference Range Interpretation Comments SCAN RESULT (test code = 2521847) Anti-Mitochondrial Ab, reflex to [id number] 10:14:00Scan ResultQUEST DIAGNOSTIC INCORPORATEDUCSF Benioff Children's Hospital OaklandMitochondrial Ab Screen 2020-10-25 12:18:00 Test Item Value Reference Range Interpretation Comments Anti-Mitocho NEGATIVE NEGATIVE This test was developed nd Abs (test and its analyti vasile code = performance 0671087) characteristics havebeen determined by [facility].It h as not been cleared or approved by FDA. This as say has been validatedp ursuant to the CLIA reg ulations and is used for clinical purposes. MADDIE (test Performing Lab code = MADDIE) [facility] [address] [place] [address] Wilder Ochoa MD, PhD, BEATRICEAnaheim General HospitalMitochondrial Ab [id number] 12:18:00 Test Item Value Reference Range Interpretation Comments Mitochondrial Ab TNP See_Comment Test Not Titer (test code = Performed . 8676380) Screening test Negative or Not Detected. Titer notperformed. [Automated message] The system which generated this result transmitted reference range : <1:20. The reference range was not used to interpret this result as normal/abnormal . MADDIE (test code = Performing Lab MADDIE) [facility] [address] [place] [address] Wilder Ochoa MD, PhD, BEATRICE [facility] OaklandCeruloplasmin2021-01-09 11:45:00 Test Item Value Reference Range Interpretation Comments Ceruloplasmin (test code 27 mg/dL 18-53 = 20191208) MADDIE (test code = MADDIE) Performing Lab *[facility], [address] [place] [address] Dahiana Small MD [facility] OaklandHepatitis C PCR, [id number] 22:54:00 Test Item Value Reference Range Interpretation Comments HCV PCR, Quantitative [id number] See_Comment H [Auto mated (test code = 23105-1) messag e] The system which generated this result transmitted reference range : <15 IU/mL. The reference range was not used to interpret this result as normal/abnormal . MADDIE (test code = MADDIE) This test uses a Real-Time Polymerase Chain Reaction (RT-PCR) methodology and was performed using MARIXA Ampliprep/MARIXA TaqMan HCV test kit version 2.0 ([employer]). Reportable range for this assay is 15 - 100,000,000 IU per mL (1.18 - 8.00 Log IU/mL). Lab Interpretation Abnormal (test code = 63582-5) [facility] OaklandHEPATITIS C PCR, [id number] 22:54:00 Test Item Value Reference Range Interpretation Comments HCV NUMERIC RESULT (BEAKER) 286487 IU/mL <15 H (test code = 2700) This test uses a Real-Time Polymerase Chain Reaction (RT-PCR) methodology and was performed using MARIX[employer] Ampliprep/MARIXA TaqMan HCV test kit version 2.0 ([employer]).Reportable range for this assay is 15 - 100,000,000 IU per mL (1.18 - 8.00 Log IU/mL).U/S, ABDOMINAL, [id number] 17:32:00Labs to be ordered:->Body Fluid Culture (w/Gram Stain, C\\T\\S) Labs to be ordered:->Cell Count Labs to be ordered:->Glucose+LDH+Protein Labs to be ordered:->Cytology Reason for exam:->diagnostic para for new ascites in pt w/ cirrhosisST. JOSEPH HOSPITALName: [facility] : 1970 Sex: FFINAL REPORT Limited abdominal ultrasound CLINICAL HISTORY: Ascites F INDINGS: A limited abdominal ultrasound was performed and only a trace amount of fluid was seen. Therefore a paracentesis was not performed. Signed: Alex Gonzalez Verified Date/Time: 10/24/2020 17:32:34 Reading Location: [address] Ultrasound Reading Room US abdomen [id number] 17:32:00Interface, External Ris In - 10/24/2020 5:34 PM CSTFINAL REPORT Limited abdominal ultrasound CLINICAL HISTORY: Ascites FINDINGS: A limited abdominal ultrasound was performed and only a trace amount of fluid was seen. Therefore a paracentesis was not performed. Signed: Alex Gonzalezeptori Verified Date/Time: 10/24/2020 17:32:34 Reading Location: [facility] P006J Ultrasound Reading [facility]COM[facility] PANEL 2020-10-24 03:23:00 Test Item Value Reference Range [...] S NOT APPLICABLE FOR DIALYSIS PATIEN TS. Public Relations Officer ID - PIVERONICA TAVAREZpecimen slightly ictericProthrombin time/[id number] 03:08:00 Test Item Value Reference Interpretation Comments [...] valves. Lab Interpretation Abnormal (test code = 65937-1) [facility] OaklandPROTHROMBIN TIME/[id number] 03:08:00 Test Item Value Reference Range Interpretation [...] is2.5-3.5 for patients wiht mechanical heart valves.CBC W/PLT COUNT & AUTO [id number] 02:45:00 Test Item Value Reference Range Interpretation [...] 0-1 PERCENT (BEAKER) (test code = 2801) [id number] 12:56:00 Test Item Value Reference Range Interpretation Comments Ferritin (test code = 71.00 ng/mL 5-275 2276-4) MADDIE (test code = MADDIE) Public Relations Officer ID - AADIXIEID Lab Interpretation (test Normal code = 12794-8) [facility] OaklandFolate, [id number] 12:56:00 Test Item Value Reference Range Interpretation Comments Folate (test code = 12.30 ng/mL See_Comment [Automa joseph 2284-8) message] The system which generated this result transmit joseph reference range : >=7.00. The reference range was not used to interpret this result as normal/abnormal . MADDIE (test code = MADDIE) Public Relations Officer ID - AAHAMID Lab Interpretation Normal (test code = 77236-1) [facility] OaklandFERRITIN2021-01-07 12:56:00 Test Item Value Reference Range Interpretation Comments FERRITIN (BEAKER) (test code = 71.00 ng/mL 5.00-275.00 361) Public Relations Officer ID - AADIXIEIDFOLATE, [id number] 12:56:00 Test Item Value Reference Range Interpretation Comments FOLATE (BEAKER) (test code = 362) 12.30 ng/mL >=7.00 Public Relations Officer ID - GANESHHAMIDAnti-Nuclear Antibody (LUCAS)2020-10-23 10:30:00 Test Item Value Reference Range Interpretation Comments LUCAS (test code = 52322-3) Negative Negative MADDIE (test code = MADDIE) Test performed by IFA method.Test performed by IFA method. Lab Interpretation (test Normal code = 82215-7) [facility] OaklandANTI-NUCLEAR ANTIBODY (LUCAS)2020-10-23 10:30:00 Test Item Value Reference Range Interpretation Comments ANTI-NUCLEAR ANTIBODY (LUCAS) (BEAKER) Negative Negative (test code = 418) Test performed by IFA method.Test performed by IFA method.Hepatitis panel, acute 2020-10-23 10:06:00 Test Item Value Reference Range Interpretation Comments Hep A IgM (test code = Nonreactive Nonreactive 59591-3) Hep B C IgM (test code = Nonreactive Nonreactive 62012-4) Hepatitis C Ab (test Reactive Nonreactive A code = 36102-7) HBsAg Screen (test code Nonreactive Nonreactive = 5195-3) MADDIE (test code = MADDIE) Public Relations Officer ID - HOUSTON M Lab Interpretation (test Abnormal code = 11518-3) [facility] OaklandHEPATITIS PANEL, [id number] 10:06:00 Test Item Value Reference Range Interpretation Comments HEPATITIS A IGM ANTIBODY (BEAKER) Nonreactive Nonreactive (test code = 498) HEPATITIS B CORE IGM ANTIBODY Nonreactive Nonreactive (BEAKER) (test code = 645) HEPATITIS C ANTIBODY (BEAKER) Reactive Nonreactive A (test code = 367) HEPATITIS B SURFACE ANTIGEN (2) Nonreactive Nonreactive (BEAKER) (test code = 2585) Public Relations Officer ID - [place] MVitamin [id number] 09:44:00 Test Item Value Reference Range Interpretation Comments Vitamin B12 (test code = 1494 pg/mL 213-816 H 2132-9) MADDIE (test code = MADDIE) Public Relations Officer ID - [place] M Lab Interpretation (test Abnormal code = 55025-3) [facility] OaklandVITAMIN [id number] 09:44:00 Test Item Value Reference Range Interpretation Comments VITAMIN B12 (BEAKER) (test code = 1494 pg/mL 213-816 H 774) Public Relations Officer ID - [place] MAlpha fetoprotein (AFP), tumor [id number] 08:27:00 Test Item Value Reference Range Interpretation Comments Alpha-Fetoprotein <2.0 See_Comment [Automate d (test code = 1834-1) message ] The system which generated this result transmit joseph reference range : <10.0 ng/mL. Th e reference range was not used to interpret this result as normal/abnormal . MADDIE (test code = MADDIE) Public Relations Officer ID - [place] M Lab Interpretation Normal (test code = 13958-9) [facility] OaklandALPHA FETOPROTEIN (AFP), TUMOR [id number] 08:27:00 Test Item Value Reference Range Interpretation Comments ALPHA-FETOPROTEIN (BEAKER) (test code < ng/mL <10.0 = 1094) Public Relations Officer ID - HOUST[place] MHepatitis A antibody, [id number] 07:42:00 Test Item Value Reference Range Interpretation Comments Hep A IgG (test code = Reactive Nonreactive A 41162-0) MADDIE (test code = MADDIE) Public Relations Officer ID - [place] M Lab Interpretation (test Abnormal code = 42139-7) [facility] OaklandHEPATITIS A ANTIBODY, [id number] 07:42:00 Test Item Value Reference Range Interpretation Comments HEPATITIS A IGG ANTIBODY (BEAKER) Reactive Nonreactive A (test code = 2797) Public Relations Officer ID Bridger CONRAD MCOMPREHENSIVE METABOLIC [id number] 07:41:00 Test Item Value Reference Range Interpretation [...] S NOT APPLICABLE FOR DIALYSIS PATIEN TS. Public Relations Officer ID - [place] MSpecimen slightly zylbgruUfedohzxu6822-45-74 07:11:00 Test Item Value Reference Range Interpretation Comments Magnesium (test code = 1.8 mg/dL 1.6-2.6 70919-8) MADDIE (test code = MADDIE) Public Relations Officer ID - [place] M Lab Interpretation (test Normal code = 32805-1) [facility] OaklandMAGNESIUM2021-01-07 07:11:00 Test Item Value Reference Range Interpretation Comments MAGNESIUM (BEAKER) (test code = 1.8 mg/dL 1.6-2.6 627) Public Relations Officer ID - HOU[place] MHepatitis B core antibody, [id number] 07:01:00 Test Item Value Reference Range Interpretation Comments Hep B Core Total Ab Nonreactive Nonreactive (test code = 68884-7) MADDIE (test code = MADDIE) Public Relations Officer ID - [place] M Lab Interpretation (test Normal code = 13213-9) [facility] OaklandHEPATITIS B CORE ANTIBODY, [id number] 07:01:00 Test Item Value Reference Range Interpretation Comments HEPATITIS B CORE TOTAL ANTIBODY Nonreactive Nonreactive (BEAKER) (test code = 497) Public Relations Officer ID - [place] Rosa M, TIBC, % sat. (without ferritin)2020-10-23 06:37:00 Test Item Value Reference Range Interpretation Comments Iron (test code = 2498-4) 129.0 ug/dL 40-160 TIBC (test code = 2500-7) 178 ug/dL 250-450 L Iron % Saturation (test 72 % 20-55 H code = 2502-3) MADDIE (test code = MADDIE) Public Relations Officer ID - [place] M Lab Interpretation (test Abnormal code = 75937-4) [facility] OaklandIRON, TIBC, % SAT. (WITHOUT FERRITIN)2020-10-23 06:37:00 Test Item Value Reference Range Interpretation Comments IRON (BEAKER) (test code = 547) 129.0 ug/dL 40.0-160.0 TOTAL IRON BINDING CAPACITY 178 ug/dL 250-450 L (BEAKER) (test code = 769) IRON % SATURATION (2) (BEAKER) 72 % 20-55 H (test code = 2590) Public Relations Officer ID - [place] MEldgj-8-xlsdpmtwfzn1608-01-07 06:36:00 Test Item Value Reference Range Interpretation Comments A-1 Antitrypsin (test code 102.40 mg/dL 90-200 = 1825-9) MADDIE (test code = MADDIE) Public Relations Officer ID - [place] M Lab Interpretation (test Normal code = 39763-6) [facility] OaklandALPHA-1-[id number] 06:36:00 Test Item Value Reference Range Interpretation Comments ALPHA-1 ANTITRYPSIN (BEAKER) 102.40 mg/dL 90.00-200.00 (test code = 502) Public Relations Officer ID - [place] MPROTHROMBIN TIME/[id number] 06:21:00 Test Item Value Reference Range Interpretation [...] is2.5-3.5 for patients wiht mechanical heart valves.Reticulocyte orjyu2354-45-35 05:50:00 Test Item Value Reference Range Interpretation Comments % Retic (test code = 4.6 % 0.5-1.7 H 08478-6) MADDIE (test code = MADDIE) Public Relations Officer ID - [id number] Lab Interpretation (test Abnormal code = 85214-0) [facility] [facility] OaklandRETICULOCYTE [id number] 05:50:00 Test Item Value Reference Range Interpretation Comments RETICULOCYTE COUNT PCT (BEAKER) (test 4.6 % 0.5-1.7 H code = 575) Public Relations Officer ID - [id number] and [id number] 05:49:00 Test Item Value Reference Range Interpretation Comments Hemoglobin (test code = 9.0 See_Comment L [Au tomated message] 786-4) The system [employer] generated this result transmitted ref erence range: 11.2 - 1 5.7 GM/DL. The refe rence range was not u sed to interpret this result as normal/abnor mal. Hematocrit (test code = 30.0 % 34.1-44.9 L 4544-3) Lab Interpretation (test Abnormal code = 76294-9) [facility] W/PLT COUNT & AUTO [id number] 05:49:00 Test Item Value Reference Range Interpretation [...] (BEAKER) (test code = 2801) HEMOGLOBIN AND [id number] 05:49:00 Test Item Value Reference Range Interpretation Comments HEMOGLOBIN (BEAKER) (test code = 9.0 GM/DL 11.2-15.7 L 410) HEMATOCRIT (BEAKER) (test code = 30.0 % 34.1-44.9 L 411) U/S, ABDOMINAL, WITH [id number] 21:58:00Reason for exam:->ascites, cirrhosisCH[facility]: [facility]IN HANSEN : 1970 Sex: FFINAL REPORT Ultrasound of [...] Verified Date/Time: 10/22/2020 21:58:54 US abdominal with [id number] 21:58:00Interface, External Ris In - 10/23/2020 2:18 [...] Mila Richardson MDReport Verified Date/Time: 10/22/2020 21:58:54 [facility] (Asymptomatic ONLY)2020-10-22 20:15:00 Test Item Value Reference Range Interpretation Comments SARS-COV2/RT-PCR Negative Not Detected, (test code = Negative, See 04012-2) external report for linked test SARS-COV-2 [facility] (test code = 58829-9) MADDIE (test code = Negative result for [...] of the Act. Fact Sheet for Healthcare Providers:https://www.[employer]/sites/default/f christina/product/documents/F act_Sheet_HC_Providers_L zqz_UIDR-ZtW-2.pdf Fact Sheet for Healthcare Patients:https://www.[employer]/sites/default/fi les/product/documents/Fa ct_Sheet_Patients_Lyra_S ARS-CoV-2.pdf Performing Laboratory:[place] [address], [place] [address] [place], [place] [address]ARS-COV2/RT-PCR ([facility])2020-10-22 20:15:00 Test Item Value Reference Range Interpretation Comments SARS-COV2/RT-PCR (test Negative Not Detected, Negative, code = 2940656) See external report for linked test SARS-COV-[address] [facility] (test code = 6661948) Negative result for this test determines that [...] 564(g) of the Act.Fact Sheet for Healthcare Providers:https://www.[employer]sites/default/files/product/documents/Fact_Shee c_BE_Imdxktgvo_Fkru_TLNX-FoO-9.pdfFact Sheet for Healthcare Patients:https://www.[employer]sites/default/files/product/ documents/Otws_Ilwbd_Xwtrfvpe_Tngm_WDMJ-NqV-8.pdfPerforming Laboratory:[facility], [place] [address]Dctqrtyxmg w/Microscopic + Reflex to [id number] 17:46:00 Test Item Value Reference Range Interpretation Comments Color, UA (test code Yellow = 5778-6) Clarity, UA (test Hazy code = 5767-9) Specific [place], UA 1.024 1.001-1.035 (test code = 5811-5) pH, UA (test code = 5.5 5.0-8.0 5803-2) Protein, UA (test 20 mg/dL Negative A code = 43660-9) Glucose, UA (test Negative Negative code = 365) Ketones, UA (test Negative Negative code = 2514-8) Bilirubin, UA (test Negative Negative code = 29663-3) Blood, UA (test code Small Negative A = 83138-7) Nitrite, UA (test Negative Negative code = 5802-4) Leukocytes, UA (test Negative Negative code = 5799-2) Urobilinogen, UA 0.2 mg/dL 0.2-1 (test code = 04528-2) RBC, UA (test code = 1 See_Comment [Autom ated 12480-8) message] The system which generated this result [...] 9 See_Comment [Automate d (test code = 23141-0) messag e] The system which generated this result transmit joseph reference range : /HPF. The reference range was not used to interpret this result as normal/abnormal . Specimen Source (test code = 2795) MADDIE (test code = MADDIE) Public Relations Officer ID - tech Lab Interpretation Abnormal (test code = 06516-4) [facility] OaklandURINAL[facility] W/ REFLEX URINE [id number] 17:46:00 Test Item Value Reference Range Interpretation [...] = 516) SOURCE(BEAKER) (test code = 2795) Public Relations Officer ID - techRAD, CHEST, 1 VIEW, NON [id number] 15:35:00Reason for exam:->abd painShould this be performed at the bedside?->Yes [facility] : 1970 Sex: FFINAL REPORT CHEST AP PORTABLE History provided: Abdominal pain Heart size magnified by projection. Lungs grossly clear and vascularity normal. Signed: Huang Garcia Verified Date/Time: 10/22/2020 15:35:51 Reading Location: [facility] Radiology Reading Room XR chest 1 view portable / [id number] 15:35:00Interface, External Ris In - 10/22/2020 3:38 PM CSTFINAL REPORT CHEST AP PORTABLE History provided: Abdominal pain Heart size magnified by projection. Lungs grossly clear and vascularity normal. Signed: Huang Garcia Verified Date/Time: 10/22/2020 15:35:51 Reading Location: [facility] Radiology Reading [facility] [place]2020-10-22 14:52:00 Test Item Value Reference Range Interpretation Comments Troponin I (test code = 0.01 ng/mL 0-0.03 17625-6) MADDIE (test code = MADDIE) Troponin I [...] ADMIN Lab Interpretation (test Normal code = 99229-5) [facility] [id number] 14:52:00 Test Item Value Reference Range Interpretation [...] failure, acidosis, acute neurological disease, and persistent tachyarrhythmia.Public Relations Officer ID - ADMINBasic metabolic panel (Na, K+, Cl, CO2, Glu, Ca, BUN, Cr)2020-10-22 14:48:00 Test Item Value Reference Range Interpretation Comments Sodium (test code = 141 meq/L 627-974 4451-2) Potassium (test code 3.1 meq/L 3.5-5.1 L = 2823-3) Chloride (test code 107 meq/L 98-107 = 2075-0) CO2 (test code = 30 meq/L 22-29 H 2028-06) BUN (test code = 12 mg/dL 7-21 3094-0) Creatinine (test 0.65 mg/dL 0.57-1.25 code = 2160-0) Glucose (test code = 90 mg/dL 70-105 2345-7) Calcium (test code = 7.0 mg/dL 8.4-10.2 L 94741-6) EGFR (test code = 96 mL/min/1[place]73 [place] [address]-4) m NOT ACCURATE CREATININE CLEARANCE IN PREDICTING GLOMERULAR FILTRATION RATE . ESTIMATED GFR I S NOT APPLICABLE FOR DIALYSIS PATIENTS. MADDIE (test code = Public Relations Officer ID - MADDIE) ADMINSpecimen slightly icteric Lab Interpretation Abnormal (test code = 82156-3) [facility] OaklandL[facility] [id number] 14:48:00 Test Item Value Reference Range Interpretation Comments Protein, Total (test 4.6 See_Comment L [Autom ated code = 2885-2) message] The system which generated this result transmitted reference range : 6.0 - 8.3 gm/dL . The reference range was not used to interpret this result as normal/abnormal . Albumin (test code = 1.7 g/dL 3.5-5 L 15737-9) Total Bilirubin 3.5 mg/dL 0.2-1.2 H (test code = 1974-2) Bilirubin, Direct 1.7 mg/dL 0.1-0.5 H (test code = 1970-7) Alkaline Phosphatase 106 U/L 40-150 (test code = 6768-6) AST (test code = 132 U/L 5-34 H 1920-8) ALT (test code = 61 U/L 6-55 H 1742-6) MADDIE (test code = Public Relations Officer ID - MADDIE) ADMINSpecimen slightly icteric Lab Interpretation Abnormal (test code = 14686-5) [facility] OaklandBASI METABOLIC [id number] 14:48:00 Test Item Value Reference Range Interpretation [...] S NOT APPLICABLE FOR DIALYSIS PATIEN TS. Public Relations Officer ID - ADMINSpecimen slightly ictericHEPATIC FUNCTION [id number] 14:48:00 Test Item Value Reference Range Interpretation [...] code = 61 U/L 6-55 H 347) Public Relations Officer ID - ADMINSpecimen slightly ictericCBC W/PLT COUNT & AUTO [id number] 14:28:00 Test Item Value Reference Range Interpretation [...] % 0-1 PERCENT (BEAKER) (test code = 0871)
[2021-03-23 11:51] LABS: Absolute Lymphocytes (CBC) 1.5 K/uL (0.7-4.9); Basophils % 0.6 % (0-1.3); Hematocrit 28.1 % (36.0-45.0); Lymphocytes % 16.7 % (15.3-44.8); MPV 9.5 fL (7.6-11.3); RBC Red Blood Cell Count 3.15 M/uL (3.86-4.86)
[2021-03-23 11:59] LABS: Protime INR 1.45
[2021-03-23] MEDS ORDERED: LORazepam 2 MG/ML VIAL ONE ×4 (11:59→21:37)
[2021-03-23 12:16] LABS: Albumin 1.8 g/dL (3.4-5.0); Bilirubin Direct 3.7 mg/dL (0-0.2); Magnesium 1.7 mg/dL (1.8-2.4); Potassium 3.7 mmol/L (3.5-5.1); Protein, Total 5.6 g/dL (6.4-8.2)
--- NOTE | 2021-03-23 12:55 | ER ---
Nurse's Notes [facility] Name: Lorena Hansen Age: 50 yrs Sex: Female : 1970 Arrival Date: 03/23/2021 Time: 10:00 Bed 14 Private MD: Diagnosis: Altered mental status, unspecified;Hepatic Encephalopathy;Patient's noncompliance with medical treatment and regimen Presentation: 03/23 10:01 Chief complaint: EMS states: "pt is presenting with AMS today due to non compliance jd3 with her lactulose. she does have end stage liver disease.". Coronavirus screen: At this time, the client does not indicate any symptoms associated with coronavirus-19. Ebola Screen: Patient negative for fever greater than or equal to 101.5 degrees Fahrenheit, and additional compatible Ebola Virus Disease symptoms. Initial Sepsis Screen: Does the patient meet any 2 criteria? No. Patient's initial sepsis screen is negative. Does the patient have a suspected source of infection? No. Patient's initial sepsis screen is negative. Risk Assessment: Do you want to hurt yourself or someone else? Patient reports no desire to harm self or others. Onset of symptoms was March 23, 2021. 10:01 Method Of Arrival: EMS: [facility] jd3 10:01 Acuity: SUDHA 2 jd3 Triage Assessment: 10:05 General: Appears distressed, obese, unkempt, Behavior is combative, inappropriate for bp age, uncooperative. Pain: Unable to use pain scale. Patient is disoriented. Does not appear to understand pain scale. EENT: Sclera/Cornea JAUNDICED. Neuro: Level of Consciousness is confused, Oriented to none Speech NO VERBAL. Cardiovascular: Rhythm is sinus tachycardia. Respiratory: Airway is patent Respiratory effort is even, unlabored, Respiratory pattern is regular, symmetrical. GI: Abdomen is noted to have ascites. : No signs and/or symptoms were reported regarding the genitourinary system. Derm: Skin is jaundiced. Musculoskeletal: No deficits noted. Historical: - Allergies: 10:03 PENICILLINS; jd3 10:03 Zofran; jd3 - Home Meds: 10:03 Lactulose Oral [Active]; jd3 - PMHx: 10:03 Cirrhosis; COLON CA; jd3 - Immunization history:: Adult Immunizations unknown. - Social history:: Smoking status: unknown. Screenin:32 Abuse screen: Denies threats or abuse. Denies injuries from another. Nutritional bp screening: No deficits noted. Tuberculosis screening: No symptoms or risk factors identified. Fall Risk None identified. Assessment: 10:05 General: SEE TRIAGE NOTE. bp 10:27 Reassessment: PT COMBATIVE/ASSAULTIVE, BITING AND SCRATCHING STAFF, NONVERBAL, AOx0. bp RESTRAINTS PLACED FOR PT AND STAFF SAFETY, PROVIDER INFORMED. 11:59 Reassessment: PIV PLACED. PROVIDER AND [address] PIV[address] PT BITING bp PROVIDER AND STAFF DESPITE RESTRAINTS. PT REMAINS NON-VERBAL AND A DANGER TO SELF AND OTHERS, NOT RESPONDING TO REDIRECTION. 13:00 Reassessment: No changes from previously documented assessment. ADMIT INITIATED. PT bp REMAINS UNCOOPERATIVE AND NON-VERBAL. 14:00 Reassessment: No changes from previously documented assessment. ADMIT IN PROCESS. bp 15:00 Reassessment: No changes from previously documented assessment. Patient and/or family bp updated on plan of care and expected duration. Pain level reassessed. 17:00 Reassessment: PT ON ICU HOLD. PREZAS ATTENDING. bp Vital Signs: 10:03 BP 151 / 96; Pulse 113; Resp 18 S; Temp 97.4(TE); Pulse Ox 97% on R/A; Weight 104.33 kg jd3 (R); Height 5 ft. 10 in. (177.80 cm) (R); 11:00 BP 180 / 104; Pulse 115; Resp 16; Pulse Ox 99% ; bp 11:58 BP 156 / 101; Pulse 117; Resp 16; Pulse Ox 100% ; bp 13:00 BP 144 / 96; Pulse 115; Resp 15; Pulse Ox 98% ; bp 14:00 BP 126 / 96; Pulse 115; Resp 14; Pulse Ox 99% ; bp 10:03 Body Mass Index 33.00 (104.33 kg, 177.80 cm) jd3 ED Course: 10:00 Patient arrived in ED. jd3 10:01 Jameson Cowan, DAYNA is Primary Nurse. bp 10:01 Marco A Gil NP is PHCP. pm1 10:01 Geraldo Yates MD is Attending Physician. pm1 10:02 Triage completed. jd3 10:03 Arm band placed on. jd3 10:32 Patient has correct armband on for positive identification. Bed in low position. Call bp light in reach. Side rails up X2. 11:04 Radiology exam delayed due to pt not ready, nurse to call. sj 11:15 Missed attempt(s): 20 gauge in right antecubital area. Bleeding controlled, band aid sv applied, catheter tip intact. 11:20 Missed attempt(s): 22 gauge in left antecubital area. Bleeding controlled, band aid sv applied, catheter tip intact. 11:37 COVID-19 : Document "Date of Symptom Onset" if Symptomatic. Sent. bp 11:40 Inserted saline lock: 24 gauge ,using aseptic technique. ABDOMEN Blood collected. bp 12:12 Notified Nurse Practitioner and/or Physician [employer] of a critical lab result(s), sv lactate-4.4. 12:19 Notified Nurse Practitioner and/or Physician [employer] of a critical lab result(s), sv total bilirubin-6. 12:32 CBC with Diff Sent. sv 12:32 BMP Sent. sv 12:32 LFT's Sent. sv 12:32 PT-INR Sent. sv 12:32 AMMONIA Sent. sv 12:54 Bhavesh Pineda DO is Hospitalizing Provider. pm1 13:12 CT Head Brain wo Cont In Process Unspecified. EDMS 13:45 CT Abd/Pelvis - Without Contrast In Process Unspecified. EDMS 14:17 Henry cath inserted, using sterile technique, 16 Fr., by va, balloon inflated, to sv gravity drainage, urine specimen collected. returned carlos urine. Patient tolerated well. ENEMA FOR LACTULOSE NH. 14:24 UDS Sent. sv 18:03 No provider procedures requiring assistance completed. Patient admitted, IV remains in bp place. Restraints: 10:30 Non-Violent Restraint: Order obtained. Initiated on March 23, 2021 at 10:30 Unable to bp provide Restraint education. PT CONFUSED, AOx0. Actions/Behavior observed: Confused/disoriented, has impaired decision making, has decreased level of consciousness, unable to follow instructions, repeated attempts to remove/tamper lines/tubes/IV med devices \\T\\ wound dressing, Less restrictive alternatives attempted: decrease environmental stimuli, placed near Nurse station, reoriented to location, repositioned, eliminated unnecessary lines/tubes, verbal de-escalation performed, Alternative interventions: Ineffective. Clinical justification for use: patient safety, Mental status: agitated/restless, confused, Cognition: poor judgement, poor safety awareness, poor attention/concentration, unable to follow commands, Circulation: Within defined parameters (based on Cardiovascular assessment) Skin integrity: Within defined parameters (based on Integumentary assessment) Signs of injury related to restraint: No injuries noted. Range of Motion (ROM): performed. Hydration/Food: patient declined. Elimination/Hygiene: with urinary catheter, Restraint status: Soft wrist restraint (Right) Started. Soft wrist restraint (Left) Started. Criteria to discontinue Restraint not met. Restraint continued. 12:00 Non-Violent Restraint: Actions/Behavior observed: Confused/disoriented, has difficulty bp remembering/follow instructions, has impaired decision making, has decreased level of consciousness, unable to follow instructions, repeated attempts to remove/tamper lines/tubes/IV med devices \\T\\ wound dressing, Less restrictive alternatives attempted: decrease environmental stimuli, placed near Nurse station, reoriented to location, repositioned, eliminated unnecessary lines/tubes, verbal de-escalation performed, Alternative interventions: Ineffective. Clinical justification for use: patient safety, Mental status: agitated/restless, confused, Cognition: poor judgement, poor safety awareness, poor attention/concentration, unable to follow commands, Circulation: Within defined parameters (based on Cardiovascular assessment) Skin integrity: Within defined parameters (based on Integumentary assessment) Signs of injury related to restraint: No injuries noted. Range of Motion (ROM): declined. Restraint status: Soft wrist restraint (Right) Continued. Soft wrist restraint (Left) Continued. Criteria to discontinue Restraint not met. Restraint continued. 14:00 Non-Violent Restraint: Actions/Behavior observed: Confused/disoriented, has difficulty bp remembering/follow instructions, has impaired decision making, has decreased level of consciousness, unable to follow instructions, repeated attempts to remove/tamper lines/tubes/IV med devices \\T\\ wound dressing, Less restrictive alternatives attempted: decrease environmental stimuli, placed near Nurse station, reoriented to location, repositioned, eliminated unnecessary lines/tubes, verbal de-escalation performed, Alternative interventions: Ineffective. Clinical justification for use: patient safety, Mental status: agitated/restless, confused, Cognition: Unable to assess. poor judgement, poor safety awareness, poor attention/concentration, unable to follow commands, Circulation: Within defined parameters (based on Cardiovascular assessment) Skin integrity: Within defined parameters (based on Integumentary assessment) Signs of injury related to restraint: No injuries noted. Non-Violent Restraint: Restraint status: Soft wrist restraint (Right) Continued. Soft wrist restraint (Left) Continued. Criteria to discontinue Restraint not met. Restraint continued. 16:00 Non-Violent Restraint: Actions/Behavior observed: Confused/disoriented, has difficulty bp remembering/follow instructions, has impaired decision making, has decreased level of consciousness, unable to follow instructions, repeated attempts to remove/tamper lines/tubes/IV med devices \\T\\ wound dressing, Less restrictive alternatives attempted: decrease environmental stimuli, placed near Nurse station, reoriented to location, repositioned, Alternative interventions: Ineffective. Clinical justification for use: patient safety, Mental status: agitated/restless, confused, Cognition: poor judgement, poor safety awareness, poor attention/concentration, unable to follow commands, Circulation: Within defined parameters (based on Cardiovascular assessment) Skin integrity: Within defined parameters (based on Integumentary assessment) Signs of injury related to restraint: No injuries noted. Elimination/Hygiene: Restraint status: Soft wrist restraint (Right) Continued. Soft wrist restraint (Left) Continued. Criteria to discontinue Restraint not met. Restraint continued. Administered Medications: 11:45 Drug: Ativan (LORazepam) 1 mg Route: IVP; Site: Other; bp 12:03 Follow up: Response: Anxiety decreased bp 12:50 Drug: NS 0.9% 1000 ml Route: IV; Rate: 1000 ml; Site: Other; bp 17:24 Follow up: IV Status: Completed infusion; IV Intake: 1000ml bp 12:50 Drug: Ativan (LORazepam) 1 mg Route: IVP; Site: Other; bp 14:23 Follow up: Response: No adverse reaction bp 14:00 Drug: Lactulose 200 grams Route: NH; bp 18:04 Follow up: Response: No adverse reaction bp Intake: 17:24 IV: 1000ml; Total: 1000ml. bp Outcome: 12:55 Decision to Hospitalize by Provider. pm1 18:04 Admitted to ER Hold. Please see [facility] for further documentation. bp 06/08 14:45 Patient left the ED. bp Signatures: Dispatcher [employer] Carli Chau RN RN sv Jones, Susan sj Marinas, Patrick, AIRCRAFT MECHANIC AIRCRAFT MECHANIC pm1 Nas Starr RN RN jd3 Jameson Cowan, RN RN bp Corrections: (The following items were deleted from the chart) 03/23 14:24 14:17 Henry cath inserted, using sterile technique, 18 Fr., by me, balloon inflated, to sv gravity drainage, urine specimen collected. ENEMA FOR LACTULOSE NH bp
--- NOTE | 2021-03-23 12:56 | EDPHYS ---
Physician Documentation [facility] Name: Lorena Hansen Age: 50 yrs Sex: Female : 1970 Arrival Date: 03/23/2021 Time: 10:00 Bed 14 Private MD: ED Physician Geraldo Yates HPI: 03/23 10:39 This 50 yrs old Female presents to ER via EMS with complaints of Altered pm1 Mental Status. 10:39 The patient presents with decreased mental status. Onset: The symptoms/episode pm1 began/occurred today. Possible causes: compliance with lactulose. Current symptoms: In the emergency department the patient's symptoms. The patient has experienced similar episodes in the past, multiple times. It is unknown whether or not the patient has recently seen a physician. Unable to obtain report from patient because of AMS and information obtained from EMS. Historical: - Allergies: 10:03 PENICILLINS; jd3 10:03 Zofran; jd3 - Home Meds: 10:03 Lactulose Oral [Active]; jd3 - PMHx: 10:03 Cirrhosis; COLON CA; jd3 - Immunization history:: Adult Immunizations unknown. - Social history:: Smoking status: unknown. ROS: 10:39 Constitutional: Negative for fever, chills, and weight loss. pm1 10:39 Cardiovascular: Negative for chest pain, palpitations, and edema, Respiratory: Negative for shortness of breath, cough, wheezing, and pleuritic chest pain, Abdomen/GI: Negative for abdominal pain, nausea, vomiting, diarrhea, and constipation, Back: Negative for injury and pain, MS/Extremity: Negative for injury and deformity, Skin: Negative for injury, rash, and discoloration, Neuro: Negative for headache, weakness, numbness, tingling, and seizure. 10:39 Neuro: Positive for altered mental status, Negative for numbness, tingling. 10:39 Unable to obtain ROS due to altered mental status. Exam: 10:39 Head/Face: Normocephalic, atraumatic. pm1 10:39 Skin: Warm, dry with normal turgor. Normal color with no rashes, no lesions, and no evidence of cellulitis. MS/ Extremity: Pulses equal, no cyanosis. Neurovascular intact. Full, normal range of motion. 10:39 Constitutional: The patient appears awake, non-toxic, well developed, well hydrated, well groomed, well nourished, agitated. 10:39 Eyes: Extraocular movements: intact throughout, Sclera: icterus, is not appreciated. 10:39 Cardiovascular: Rate: tachycardic, Rhythm: regular, Pulses: no pulse deficits are appreciated, Edema: 1+ edema to level of left midcalf, left ankle, right midcalf and right ankle. 10:39 Respiratory: the patient does not display signs of respiratory distress, Breath sounds: are clear throughout. 10:39 Abdomen/GI: Inspection: obese Palpation: abdomen is soft and non-tender, in all quadrants. 10:39 Neuro: Orientation: Not oriented to person, place, time, situation, Mentation: confused, Motor: moves all fours. Vital Signs: 10:03 BP 151 / 96; Pulse 113; Resp 18 S; Temp 97.4(TE); Pulse Ox 97% on R/A; Weight 104.33 kg jd3 (R); Height 5 ft. 10 in. (177.80 cm) (R); 11:00 BP 180 / 104; Pulse 115; Resp 16; Pulse Ox 99% ; bp 11:58 BP 156 / 101; Pulse 117; Resp 16; Pulse Ox 100% ; bp 13:00 BP 144 / 96; Pulse 115; Resp 15; Pulse Ox 98% ; bp 14:00 BP 126 / 96; Pulse 115; Resp 14; Pulse Ox 99% ; bp 10:03 Body Mass Index 33.00 (104.33 kg, 177.80 cm) jd3 MDM: 10:03 Patient medically screened. pm1 12:51 Physician consultation: iLly CRANE was called at 12:53, was contacted at 12:53, pm1 regarding admission, patient's condition, and will see patient. 13:06 Data reviewed: vital signs. pm1 13:32 Physician consultation: Bhavesh Pineda DO would like further tests performed, CT scan, pm1 in the emergency department to see patient at 13:32. 03/23 10:11 Order name: CBC with Diff pm1 03/23 10:11 Order name: BMP pm1 03/23 10:11 Order name: LFT's pm1 03/23 10:11 Order name: PT-INR pm1 03/23 10:11 Order name: AMMONIA pm1 03/23 10:11 Order name: UDS pm1 03/23 10:11 Order name: Urine Microscopic Only; Complete Time: 15:57 pm1 03/23 10:11 Order name: Blood Culture Adult (2) pm1 03/23 10:11 Order name: Urine Culture pm1 03/23 10:11 Order name: Procalcitonin; Complete Time: 12:49 pm1 03/23 10:11 Order name: Magnesium; Complete Time: 12:21 pm1 03/23 10:11 Order name: CBC with Automated Diff; Complete Time: 12:20 EDMS 03/23 10:11 Order name: Basic Metabolic Panel; Complete Time: 12:21 EDMS 03/23 10:11 Order name: Liver (Hepatic) Function; Complete Time: 12:21 EDMS 03/23 10:11 Order name: Protime (+INR); Complete Time: 12:20 EDMS 03/23 10:11 Order name: Ammonia; Complete Time: 12:20 EDMS 03/23 10:11 Order name: Urine Drug Screen; Complete Time: 15:26 EDMS 03/23 10:17 Order name: COVID-19 : Document "Date of Symptom Onset" if Symptomatic. pm1 03/23 10:46 Order name: Lactate; Complete Time: 12:20 bp 03/23 14:23 Order name: Urine Dipstick-Ancillary; Complete Time: 15:06 EDMS 03/23 14:48 Order name: SARS-COV-2 RT PCR; Complete Time: 15:06 EDMS 03/23 15:05 Order name: Glucose, Ancillary Testing; Complete Time: 15:06 EDMS 03/23 17:12 Order name: Lactate Sepsis 2 HR Follow-up; Complete Time: 18:36 EDMS 03/23 20:15 Order name: Glucose, Ancillary Testing; Complete Time: 20:50 EDMS 03/24 01:36 Order name: Blood Culture EDMS 03/24 05:17 Order name: CBC with Automated Diff; Complete Time: 07:08 EDMS 03/24 05:44 Order name: Comprehensive Metabolic Panel; Complete Time: 07:08 EDMS 03/24 05:44 Order name: Magnesium; Complete Time: 07:08 EDMS 03/24 06:50 Order name: Manual Differential; Complete Time: 07:08 EDMS 06/07 10:11 Order name: IV Saline Lock; Complete Time: 11:37 pm1 03/23 10:11 Order name: Urine Dipstick-Ancillary (obtain specimen); Complete Time: 14:22 pm1 03/23 10:11 Order name: CT Head Brain wo Cont; Complete Time: 13:23 pm1 03/23 10:15 Order name: Restraint:Non-Violent; Complete Time: 10:32 pm1 03/23 12:19 Order name: EKG; Complete Time: 12:19 bp 03/23 12:19 Order name: EKG - Nurse/Tech; Complete Time: 12:19 bp 03/23 13:32 Order name: CT Abd/Pelvis - Without Contrast; Complete Time: 14:17 pm1 03/24 07:04 Order name: RAD; Complete Time: 07:08 EDMS 03/24 07:49 Order name: Gastric Occult Blood EDMS 03/24 07:57 Order name: Glucose, Ancillary Testing EDMS 03/24 10:35 Order name: Ammonia EDMS 03/24 11:49 Order name: RAD EDMS 03/24 12:39 Order name: Hemoglobin EDMS 03/24 12:39 Order name: Hematocrit EDMS 03/24 13:10 Order name: RAD EDMS Administered Medications: 11:45 Drug: Ativan (LORazepam) 1 mg Route: IVP; Site: Other; bp 12:03 Follow up: Response: Anxiety decreased bp 12:50 Drug: NS 0.9% 1000 ml Route: IV; Rate: 1000 ml; Site: Other; bp 17:24 Follow up: IV Status: Completed infusion; IV Intake: 1000ml bp 12:50 Drug: Ativan (LORazepam) 1 mg Route: IVP; Site: Other; bp 14:23 Follow up: Response: No adverse reaction bp 14:00 Drug: Lactulose 200 grams Route: TX; bp 18:04 Follow up: Response: No adverse reaction bp Disposition: 03/24 17:31 Co-signature as Attending Physician, Geraldo Yates MD. rn Disposition: 03/23/21 12:55 Hospitalization ordered by Bhavesh Pineda for Inpatient Admission. Preliminary diagnosis are Altered mental status, unspecified, Hepatic Encephalopathy, Patient's noncompliance with medical treatment and regimen. - Bed requested for [facility] ER HOLD. - Status is Inpatient Admission. bp - Condition is Stable. - Problem is new. - Symptoms have improved. Signatures: Dispatcher [employer] EDTX Geraldo Yates MD MD rn Marco A Gil, PATRICK C [employer] DEVELOPER pm1 Nas Starr RN RN jd3 Jameson Cowan RN RN bp Corrections: (The following items were deleted from the chart) 03/23 13:40 10:18 CORONAVIRUS ordered. EDTX EDTX 18:03 12:55 Hospitalization Ordered by Bhavesh Pineda DO for Inpatient Admission. Preliminary bp diagnosis is Altered mental status, unspecified; Hepatic Encephalopathy; Patient's noncompliance with medical treatment and regimen. Bed requested for Telemetry/MedSurg (Inpatient). Status is Inpatient Admission. Condition is Stable. Problem is new. Symptoms have improved. pm1 03/24 14:45 03/23 18:03 03/23/2021 12:55 Hospitalization Ordered by Bhavesh Pineda DO for Inpatient bp Admission. Preliminary diagnosis is Altered mental status, unspecified; Hepatic Encephalopathy; Patient's noncompliance with medical treatment and regimen. Bed requested for [facility] ER HOLD. Status is Inpatient Admission. Condition is Stable. Problem is new. Symptoms have improved. bp
[2021-03-23] MEDS ORDERED: NA CHLORIDE 0.9% 1,000 ML ONE (13:17)
--- NOTE | 2021-03-23 13:22 | RAD REPORT ---
EXAM DESCRIPTION: CT - Head Brain Wo Cont - 03/23/2021 1:13 pm CLINICAL HISTORY: MENTAL STATUS CHANGE Headache, drowsiness COMPARISON: Head Brain Wo Cont dated 12/07/2020; Head Brain Wo Cont dated 11/28/2020 TECHNIQUE: All CT scans are performed using dose optimization technique as appropriate and may inclu de automated exposure control or mA/KV adjustment according to patient size. FINDINGS: No intracranial hemorrhage, hydrocephalus or extra-axial fluid collection.No areas of brai n edema or evidence of midline shift. The paranasal sinuses and mastoids are clear. The calvarium is intact. Edematous scalp soft tissues a re present. IMPRESSION: No acute intracranial abnormality.
[2021-03-23] MEDS ORDERED: LACTULOSE 20 GM/30 ML UCUP PR ONE (14:00)
--- NOTE | 2021-03-23 14:01 | RAD REPORT ---
EXAM DESCRIPTION: CT - Abdomen Pelvis Wo Contrast - 03/23/2021 1:45 pm CLINICAL HISTORY: Abdominal pain. AMS, Hepatic encephalopathy COMPARISON: Abdomen Pelvis W Contrast dated 11/22/2020; Paracentesis Proc Guidance dated 02/18/2021; R enal Ultrasound-Complete dated 02/15/2021 TECHNIQUE: CT imaging of the abdomen and pelvis was performed without contrast. Solid organ, bowel a nd vascular assessment is limited due to lack of IV and oral contrast. All CT scans are performed using dose optimization technique as appropriate and may include automated exposure control or mA/KV adjustment according to patient size. FINDINGS: Small bilateral pleural effusions with atelectasis in both lung bases. Advanced liver cirrhosis. Cholecystectomy clips. Small moderate hiatal hernia. The spleen, adrenal gl ands, kidneys and pancreas are within normal limits. Significant ascites is present. No bowel obstruction is evident. No free air seen. Prominent anasarca pattern. Lumbar degenerative changes are present. IMPRESSION: Significant anasarca, ascites and bilateral pleural effusions. Advanced liver cirrhosis. A limited non-contrast examination was performed as detailed.
[2021-03-23 14:23] LABS: Urine Blood 1+ (Negative); Urine Glucose Negative (Negative); Urine Protein 1+ (Negative); Urine pH 5.5 (5.0-7.0)
[2021-03-23] MEDS: LORazepam 2 MG/ML VIAL IV PRN ×2 (15:00→21:30)
[2021-03-23 15:09] LABS: Barbiturates NEGATIVE (NEGATIVE); Benzodiazepines NEGATIVE (NEGATIVE); Cocaine NEGATIVE (NEGATIVE); METHAMPHETAM POSITIVE (NEGATIVE); Methadone NEGATIVE (NEGATIVE); Opiates NEGATIVE (NEGATIVE); Phencyclidine NEGATIVE (NEGATIVE); THC Cannibis NEGATIVE (NEGATIVE)
[2021-03-23] MEDS ORDERED: D50W 50 ML IV ONE (15:15)
--- NOTE | 2021-03-23 15:41 | P.HP ---
Certification for Inpatient Patient admitted to: Inpatient With expected LOS: >2 Midnights Patient will require the following post-hospital care: None Practitioner: I am a practitioner with admitting privileges, knowledge of patient current condition, hospital course, and medical plan of care. Services: Services provided to patient in accordance with Admission requirements found in Title 42 Section 412.3 of the Code of Federal Regulations <Bhavesh Pineda - Last Filed: 03/23/21 16:44> Patient History Date of Service: 03/23/21 - Past Medical/Surgical History Diabetic: No -: Advanced liver cirrhosis -: History of GERD with ulcer -: Diastolic CHF -: History of Esophageal varices -: Methamphetamine abuse -: Noncompliance with medication -: Recurrent admissions for hepatic encephalopathy -: Endoscopy -: GB Sx Psychosocial/ Personal History: Unknown - Family History Mother -: Cancer Father -: Heart disease - Social History Alcohol use: No CD- Drugs: No Caffeine use: No <Lily Vidal - Last Filed: 03/23/21 15:31> Date of Service: 03/23/21 Primary Care Provider: none Reason for admission: Altered mental status History of Present Illness: 50-year-old female with history of advanced alcoholic cirrhosis of the liver, GERD, anemia of chronic disease, history of drug abuse and medical noncompliance presents emergency department for altered mental status. Most of the information came from the ER provider. Mid-level provider did speak to significant other. Patient had been doing well and taking her medication for cirrhosis of the liver. Then patient had altered mental status. Some agitation noted. She was brought in to the ER for further evaluation. Lab abnormal for elevated ammonia level. Renal dysfunction noted. GFR 35. Total bilirubin elevated. CT scan showed bilateral pleural effusion, anasarca noted. Patient given lactulose enema in the emergency room. Patient also required medication for agitation. Patient with restraints to prevent harm. Patient admitted for further evaluation and treatment. Patient with multiple prior admissions for recurrent encephalopathy likely from noncompliance. Home medications list reviewed: Yes - Family History Family History: Reviewed- Non-Contributory - Social History Smoking Status: Unknown if ever smoked Place of Residence: Home <Bhavesh Pineda - Last Filed: 03/23/21 16:44> Allergies ondansetron [From Zofran] Allergy (Verified 06/14/20 21:06) Anaphylaxis Home Medications: Rifaximin [Xifaxan] 550 mg PO BID #60 11/24/20 Amlodipine [Norvasc*] 5 mg PO DAILY #30 tab 02/20/21 Furosemide [Lasix] 40 mg PO BID #60 tab 02/20/21 Lactulose [Cephulac*] 45 ml PO TID #4000 ml 02/20/21 Levofloxacin [Levaquin] 500 mg PO DAILY #7 tablet 02/20/21 Pantoprazole [Protonix Tab] 40 mg PO Q12H #60 tab 02/20/21 Spironolactone [Aldactone] 100 mg PO DAILY #30 tab 02/20/21 Review of Systems is unable to be obtained <Bhavesh Pineda - Last Filed: 03/23/21 16:44> Physical Examination - Studies Laboratory Data (last 24 hrs) 03/23/21 11:30: PT 16.7 H, INR 1.45 03/23/21 11:30: Sodium 145, Potassium 3.7, BUN 23 H, Creatinine 1.55 H, Glucose 58 L, Magnesium 1.7 L, Total Bilirubin 6.0 H*, AST 72 H, ALT 38, Alkaline Phosphatase 100 03/23/21 11:30: WBC 9.00, Hgb 8.6 L, Hct 28.1 L, Plt Count 127 L <Lily Vidal - Last Filed: 03/23/21 15:31> - Physical Exam General: Other (Patient obtunded. Some stimulation to pain.) HEENT: Scleral icterus Neck: Supple Respiratory: Clear to auscultation bilaterally Cardiovascular: Normal pulses, Regular rate/rhythm Gastrointestinal: No tenderness (No significant pain to palpation), No guarding, Ascites Musculoskeletal: No warmth Integumentary: Tenderness/swelling (1 to 2+ pitting edema to the lower extremities bilateral) Neurological: Other (Patient with increase sedation.) - Studies Laboratory Data (last 24 hrs) 03/23/21 11:30: PT 16.7 H, INR 1.45 03/23/21 11:30: Sodium 145, Potassium 3.7, BUN 23 H, Creatinine 1.55 H, Glucose 58 L, Magnesium 1.7 L, Total Bilirubin 6.0 H*, AST 72 H, ALT 38, Alkaline Phosphatase 100 03/23/21 11:30: WBC 9.00, Hgb 8.6 L, Hct 28.1 L, Plt Count 127 L <Bhavesh Pineda - Last Filed: 03/23/21 16:44> Assessment and Plan - Advance Directives Does patient have a Living Will: No Does patient have a Durable POA for Healthcare: No <Lily Vidal - Last Filed: 03/23/21 15:31> - Plan Impression: Altered mental status secondary to hepatic encephalopathy related to advanced alcoholic cirrhosis of the liver Acute renal failure likely dehydration Elevated liver function, hyperbilirubinemia, hyperammonemia secondary to alcoholic cirrhosis of liver Hypoglycemia Anemia of chronic disease Methamphetamine abuse GERD with history of gastric varices Medical noncompliance Plan Altered mental status secondary to hepatic encephalopathy related to advanced alcoholic cirrhosis of the liver: Patient given lactulose enema in the emergency department. May need to continue with lactulose enema if still with increase sedation. Rectal tube system in place. If the patient is able to take good oral intake then will switch to oral lactulose. Will monitor lab closely. Monitor ammonia level. Will provide medication for agitation. Patient remains with soft restraints. Will admit to ICU for close monitoring. DVT prophylaxis in place. Will monitor closely. Will consult in nephrology and GI to further evaluate her condition. Acute renal failure likely dehydration: Continue with IV fluids. Will monitor closely. Will empirically start IV antibiotic therapy for possible enteritis. Anemia of chronic disease: Will monitor lab closely. Transfuse if hemoglobin less than 7.0. Elevated liver function with hyperbilirubinemia and hyperammonia secondary to alcoholic cirrhosis: Continue to monitor lab closely. Continue as above. Hypoglycemia : Continue D5 half NS at 50 cc/hour. Will need to monitor Accu- Cheks. Patient currently NPO. GERD with history of gastric varices: Will provide medication Methamphetamine abuse: Patient was again positive for amphetamines. Will need to address cessation. Medical noncompliance: Will need to continue to address compliance with her medication. Patient has been non compliant in the past. Discharge Plan: Home Plan to discharge in: Greater than 2 days - Code Status/Comfort Care Code Status Assessed: Yes (Patient is full code) Time Spent Managing Pts Care (In Minutes): 55 <Bhavesh Pineda - Last Filed: 03/23/21 16:44>
[2021-03-23 15:51] LABS: Urine Bacteria <20 /HPF (<20); Urine Mucus 1+ /HPF (NONE SEEN)
[2021-03-23] MEDS ORDERED: D5 0.9 NS 1,000 ML IV SCH (17:27)
[2021-03-23] MEDS ORDERED: ACETAMINOPHEN 650MG/RECT SUPP PR PRN (17:27)
[2021-03-23] MEDS ORDERED: ACETAMINOPHEN 500 MG TAB PO PRN (17:27)
[2021-03-23] MEDS: CEFTRIAXONE/SWI 1gm 1 GM/10 ML SYR IVP SCH (18:00)
[2021-03-23] MEDS: FOLIC ACID 1 MG in NA CHLORIDE 0.9% 50 ML IV SCH (18:00)
[2021-03-23] MEDS ORDERED: NA CHLORIDE 0.9% 100 ML ONE (18:58)
[2021-03-23] MEDS ORDERED: CEFTRIAXONE/SWI 1gm 1 GM/10 ML SYR ONE (18:58)
[2021-03-23] MEDS ORDERED: D5 0.9 NS 1,000 ML IV ONE (18:59)
[2021-03-23] MEDS: HEPARIN 5000 UNIT/ML 1 ML VIAL SQ SCH (21:00)
[2021-03-23 21:06] VITALS: BMI 36.0
[2021-03-23] MEDS ORDERED: HEPARIN 5000 UNIT/ML 1 ML VIAL ONE (21:37)
[2021-03-24] MEDS: LORazepam 2 MG/ML VIAL IV PRN ×2 (01:49→10:53)
[2021-03-24] MEDS ORDERED: LORazepam 2 MG/ML VIAL ONE ×2 (01:58→11:10)
[2021-03-24] MEDS ORDERED: ONDANSETRON 4 MG/2 ML VIAL IV PRN (03:56)
[2021-03-24] MEDS ORDERED: D5 0.9 NS 1,000 ML IV SCH (03:57)
[2021-03-24] MEDS: PROMETHAZINE INJ 25 MG/ML AMP IV PRN (04:15)
[2021-03-24 05:15] LABS: Absolute Lymphocytes (CBC) 0.9 K/uL (0.7-4.9); Basophils % 0.2 % (0-1.3); Hematocrit 24.1 % (36.0-45.0); Lymphocytes % 5.1 % (15.3-44.8); MPV 9.2 fL (7.6-11.3); RBC Red Blood Cell Count 2.73 M/uL (3.86-4.86)
[2021-03-24 05:36] LABS: Albumin 1.6 g/dL (3.4-5.0); Magnesium 1.6 mg/dL (1.8-2.4); Potassium 3.1 mmol/L (3.5-5.1); Protein, Total 5.2 g/dL (6.4-8.2)
[2021-03-24 05:44] LABS: Bilirubin Total 5.7 mg/dL (0.2-1.0)
[2021-03-24] MEDS ORDERED: SODIUM CHLORIDE 0.9% 10ML INJ IV PRN (05:46)
[2021-03-24] MEDS ORDERED: LACTULOSE 20 GM/30 ML UCUP PR ONE (06:23)
[2021-03-24] MEDS ORDERED: D5W 1,000 ML IV ONE (06:48)
[2021-03-24] MEDS ORDERED: LACTULOSE 20 GM/30 ML UCUP ONE (06:48)
[2021-03-24 06:49] LABS: Anisocytosis SLIGHT; Blood Morphology Comment NOTED (NOT SEEN); Hypochromasia 1+; Platelet Estimate DECR; Polychromasia SLIGHT
[2021-03-24] MEDS ORDERED: D5W 1,000 ML IV SCH (07:00)
--- NOTE | 2021-03-24 07:04 | RAD REPORT ---
EXAM DESCRIPTION: RAD - Chest Single View - 03/24/2021 6:17 am CLINICAL HISTORY: Eval poss aspiration COMPARISON: CT study March 23, portable chest February 15 TECHNIQUE: AP portable chest image was obtained 03/24/2021 6:17 am . FINDINGS: Lung volumes are low and the patient is rotated. No new mass or consolidation of the right lung field. Right-sided pleural effusion is not well visualized on the chest film but was evident on the prior day CT study. Hazy left base opacification is present. Patient has a known left pleural ef fusion. Slightly more dense parenchyma seen in the far lateral left base which could be infiltrate or atelectasis. Heart size is prominent but stable. Vasculature has diminished in prominence. Overall interstitial p attern is less prominent than the May examination. No pneumothorax. No acute bony abnormality seen. N o acute aortic findings suspected. IMPRESSION: Bilateral pleural effusions are present better imaged on the prior day CT study. Lateral left base opacification from infiltrate and/or atelectasis. Aspiration cannot be excluded.
[2021-03-24] MEDS ORDERED: MAGNESIUM SULFATE 1 gm IVPB 1 GM/100 ML BAG IV ONE (08:00)
[2021-03-24] MEDS: KCL 20 MEQ/100 mL IVPB 20 MEQ/100 ML BAG IV SCH ×2 (08:38→10:44)
[2021-03-24] MEDS: CEFTRIAXONE/SWI 1gm 1 GM/10 ML SYR IVP SCH (08:39)
[2021-03-24] MEDS: THIAMINE 200 MG/2 ML INJ IVP SCH (08:39)
[2021-03-24] MEDS: PANTOPRAZOLE 40 MG INJ IVP SCH ×2 (08:39→20:38)
[2021-03-24] MEDS ORDERED: HEPARIN 5000 UNIT/ML 1 ML VIAL ONE (08:53)
[2021-03-24] MEDS ORDERED: KCL 20 MEQ/100 mL IVPB 40 MEQ/200 ML BAG IV ONE (08:54)
[2021-03-24] MEDS ORDERED: CEFTRIAXONE/SWI 1gm 1 GM/10 ML SYR ONE (08:54)
[2021-03-24] MEDS ORDERED: PANTOPRAZOLE 40 MG INJ ONE ×2 (08:54→20:56)
[2021-03-24] MEDS ORDERED: THIAMINE 200 MG/2 ML INJ ONE (08:54)
[2021-03-24] MEDS: HEPARIN 5000 UNIT/ML 1 ML VIAL SQ SCH ×2 (09:00→20:37)
[2021-03-24] MEDS ORDERED: MAGNESIUM SULFATE 1 gm IVPB 0 GM/0 ML BAG IV ONE (09:36)
[2021-03-24] MEDS: D5W 1,000 ML IV SCH (10:30)
[2021-03-24] MEDS: FOLIC ACID 1 MG in NA CHLORIDE 0.9% 50 ML IV SCH (10:45)
[2021-03-24] MEDS ORDERED: NA CHLORIDE 0.9% 1,000 ML ONE (11:47)
--- NOTE | 2021-03-24 11:48 | RAD REPORT ---
EXAM DESCRIPTION: RAD - Chest Single View - 03/24/2021 11:41 am CLINICAL HISTORY: picc line placement COMPARISON: Portable March 24 TECHNIQUE: AP portable chest image was obtained 03/24/2021 11:41 am . FINDINGS: Patient is rotated displacing the heart and mediastinum towards the left. Right upper extr emity PICC line has been placed. Tip of the PICC line extends to the inferior aspect of the right atr ium. Retracting the PICC line [address] the tip in the distal SVC. Left base opacification again noted. Heart size is stable. IMPRESSION: Right upper extremity PICC line in place with the tip in the inferior right atrium. Retraction of the PICC line [address] the tip in the mid to distal SVC.
[2021-03-24 12:37] LABS: Hematocrit 24.8 % (36.0-45.0)
--- NOTE | 2021-03-24 13:09 | RAD REPORT ---
EXAM DESCRIPTION: RAD - Chest Single View - 03/24/2021 1:04 pm CLINICAL HISTORY: Device placement PICC line placement IMPRESSION: PICC line with its tip in the superior vena cava
--- NOTE | 2021-03-24 13:56 | CON ---
Date of Consultation: 03/24/2021 History Of Present Illness: The patient is seen in room 14 in the Emergency Room HOLD. The patient is a 50-year-old female, who has presented to the emergency room before several times as well, who wa s recently here in the hospital with a similar situation where she comes in almost obtunded. Has his tory of liver cirrhosis. Has been on lactulose at home. Also has history of congestive heart failur e, diastolic congestive heart failure, noncompliance with medications, recurrent admissions for hepat ic encephalopathy when she misses her medications. The patient has had a gastric workup. She has al so had amphetamine abuse. The patient usually when she comes in is somnolent for a couple of days an d ends up getting IV fluids and getting her medications resumed and then she starts waking up. She h as been counseled multiple times including by myself in the past as well regarding compliance with he r medications, follow up in the clinics and also avoiding use of amphetamines. The patient seems to understand that at that time, but she is again back with multiple prior admissions and again with rec urrent encephalopathy. The patient is currently somnolent, unable to give much history. Most of the history is obtained from the chart. Medications: Reviewed. Allergies: LISTED TO ZOFRAN. Social History: Cannot obtain from the patient. Family History: Noncontributory. Physical Examination: General: The patient is somnolent. Vital Signs: Stable. Her blood pressure is about 116-176, has been coming down. Last blood pressur e was about 116/75, before that 137/90. O2 sats are 100% on room air. Lungs: Clear to auscultation. Abdomen: Soft, but distended. She does seem to have some anasarca and even fluid on the abdomen. Neurologic: The patient is unresponsive to any commands. Her temperature is 98. She is afebrile. Extremities: Reveal significant edema bilaterally. She does not follow commands or move her extremi ties to questioning or give any answers. Laboratory Data: Reviewed. WBC count has gone to 16.9. Her hemoglobin and hematocrit are 7.6 and 2 4.1, platelet count is 99. Chemistry shows sodium 146, potassium 3.1, chloride 109, bicarb is 26, BU N is 26, creatinine is 1.8. Her albumin level is 1.6. Her creatinine yesterday was 1.55. Her imagi ng studies show a chest x-ray done on March 24, which is today. Report for the chest x-ray done today shows bilateral pleural effusions are present, better imaged on the prior CT scan, lateral left base opacification atelectasis. Aspiration cannot be excluded. CT of the abdomen and pelvis w as done as well on March 23 that shows impression, significant anasarca, ascites and bilateral pleura l effusions, advanced liver cirrhosis. She also had a head CT scan done that showed impression, no a cute intracranial abnormality. Assessment And Plan: A 50-year-old female with a history of amphetamine abuse, liver cirrhosis, ques tion of medication noncompliance, presents with altered mental status. CT scan of the head did not s how any intracranial abnormality. The patient does have urinary tract infection in the setting of in travascular depletion, dehydration. At this point, albumin is very low so the anasarca is likely sec ondary to that. We will continue on gentle IV fluids. We will change the IV fluids to 50 mL of D5W at this point as the patient has an increase in her sodium to 146. The patient already is on thiamin e and is getting that covered. Continue to monitor blood pressure, which is currently stable. We wi ll plan to get a chest x-ray and repeat basic metabolic panel in the morning. /KAT Voice ID: [id number] Report ID: [id number]
--- NOTE | 2021-03-24 15:01 | P.PN ---
Subjective Date of Service: 03/24/21 Primary Care Provider: none Chief Complaint: Altered mental status Subjective: Other (Patient remains with increased somnolence.) Physical Examination - Vital Signs Temperature: 98.4 F Blood Pressure: 134/87 Pulse: 110 Respirations: 15 Pulse Ox (%): 100 Assessment & Plan Discharge Plan: Home Plan to discharge in: Greater than 2 days Physician Review Additional Text: Physical Exam: GENERAL: Increased somnolence noted VITAL SIGNS: Reviewed HEENT: Neck supple. No focal deficits. NECK: No thyromegaly LUNGS: Clear to auscultation. No crackles or wheezes are heard. HEART: Regular rate and rhythm, no appreciable gallops, rubs, murmurs or extra heart sounds ABDOMEN: Ascites noted. No significant pain with palpation. EXTREMITIES: Edema to the lower extremities about 2+ pitting. NEUROLOGIC: Increased somnolence noted SKIN: Normal color, turgor and temperature. No ulcerations or rashes noted. Impression: Altered mental status secondary to hepatic encephalopathy related to advanced alcoholic cirrhosis of the liver Acute renal failure likely dehydration Elevated liver function, hyperbilirubinemia, hyperammonemia secondary to alcoholic cirrhosis of liver Hypoglycemia Anemia of chronic disease Methamphetamine abuse GERD with history of gastric varices Medical noncompliance Plan Altered mental status secondary to hepatic encephalopathy related to advanced alcoholic cirrhosis of the liver: Patient still with increased somnolence. Will give another lactulose enema today. Will transition to oral lactulose once the patient is more alert. Will provide medication for agitation but will try to limit medication for agitation as this may increase sedation. Soft restraints may be needed to protect patient. Continue to monitor the lab closely. Will adjust IV fluids. Case discussed with nephrology. Nephrology to evaluate and assess. Continue to monitor patient closely. Will recheck hemoglobin hematocrit later today. If hemoglobin below 7 will consider transfusion. Otherwise continue to monitor the patient closely. Will arrange for radiology assisted abdominal ultrasound guided paracentesis. Hopefully this can be done tomorrow. Maintain oxygen above 93%. Monitor serial exams. PICC line ordered for IV access. Anticipate improvement over the next several days. Acute renal failure likely dehydration: IV fluids adjusted. Patient on IV antibiotic therapy empirically. Nephrology to evaluate and adjust medication. Anemia of chronic disease: Will monitor lab closely. Transfuse if hemoglobin less than 7.0. Elevated liver function with hyperbilirubinemia and hyperammonia secondary to alcoholic cirrhosis: Continue to monitor lab closely. Continue as above. Hypoglycemia : IV fluids adjusted. Patient remains n.p.o. until patient is more alert. GERD with history of gastric varices: Will provide medication Methamphetamine abuse: Patient was again positive for amphetamines. Will need to address cessation. Medical noncompliance: Will need to continue to address compliance with her medication. Patient has been non compliant in the past. DVT prophylaxis: Heparin CODE STATUS: Patient is full code Advance care planning: Anticipate home at discharge Time Spent Managing Pts Care (In Minutes): 55
[2021-03-25] MEDS: D5W 1,000 ML IV SCH ×3 (01:05→17:20)
[2021-03-25] MEDS ORDERED: D5W 1,000 ML IV ONE (01:24)
[2021-03-25 05:03] LABS: Absolute Lymphocytes (CBC) 1.6 K/uL (0.7-4.9); Basophils % 0.5 % (0-1.3); Hematocrit 23.1 % (36.0-45.0); Lymphocytes % 16.6 % (15.3-44.8); MPV 9.1 fL (7.6-11.3); RBC Red Blood Cell Count 2.62 M/uL (3.86-4.86)
[2021-03-25 05:13] LABS: Protime INR 1.51
[2021-03-25 05:23] LABS: Albumin 1.5 g/dL (3.4-5.0); Bilirubin Total 3.6 mg/dL (0.2-1.0); Magnesium 1.9 mg/dL (1.8-2.4); Potassium 3.2 mmol/L (3.5-5.1); Protein, Total 4.8 g/dL (6.4-8.2)
[2021-03-25] MEDS ORDERED: TRAMADOL HCL 50 MG TAB PO PRN (07:09)
--- NOTE | 2021-03-25 07:16 | P.PN ---
Subjective Date of Service: 03/25/21 Primary Care Provider: none Chief Complaint: Altered mental status Subjective: Improving, Other (Patient is more alert. Less somnolence) Physical Examination - Vital Signs Temperature: 97.2 F Blood Pressure: 150/99 Pulse: 107 Respirations: 15 Pulse Ox (%): 100 Assessment & Plan Discharge Plan: Home Plan to discharge in: Greater than 2 days Physician Review Additional Text: Physical Exam: GENERAL: Patient more alert. Less somnolence noted. Reports some pain. Poor urinary output yesterday. VITAL SIGNS: Reviewed HEENT: Neck supple. No focal deficits. NECK: No thyromegaly LUNGS: Clear to auscultation. No crackles or wheezes are heard. HEART: Regular rate and rhythm, no appreciable gallops, rubs, murmurs or extra heart sounds ABDOMEN: Ascites noted. No significant pain with palpation. EXTREMITIES: Edema to the lower extremities about 2+ pitting. NEUROLOGIC: Increased somnolence noted SKIN: Normal color, turgor and temperature. No ulcerations or rashes noted. Impression: Altered mental status secondary to hepatic encephalopathy related to advanced alcoholic cirrhosis of the liver Acute renal failure likely dehydration Elevated liver function, hyperbilirubinemia, hyperammonemia secondary to alcoholic cirrhosis of liver Hypoglycemia Anemia of chronic disease Methamphetamine abuse GERD with history of gastric varices Medical noncompliance Plan Altered mental status secondary to hepatic encephalopathy related to advanced alcoholic cirrhosis of the liver: Patient more alert. Less somnolent. We will try to limit medication for agitation. Will provide options for pain. We will add lactulose orally today. Patient scheduled for radiology assisted ultrasound-guided paracentesis. We will send fluid for analysis. Patient will get albumin solution after paracentesis. Decrease poor urinary output noted. Will increase IV fluids. Will discuss with nephrology. Will have physical therapy assess ambulation. Continue to monitor and trend blood work. We will recheck hemoglobin later today. If hemoglobin less than 7 will transfuse. GI is planning for EGD. Patient remains n.p.o. until that time. If unremarkable will transition to clear liquids and advance as tolerated and restart lactulose. Anticipate continued improvement over the next several days. Acute renal failure likely dehydration: Poor urinary output. Increase IV fluids to 75 cc/h. Patient on IV antibiotic therapy empirically. Will discuss with nephrology. Anemia of chronic disease: Will monitor lab closely. Recheck lab today. Transfuse if hemoglobin less than 7.0. Elevated liver function with hyperbilirubinemia and hyperammonia secondary to alcoholic cirrhosis: Continue to monitor lab closely. Continue as above. Hypoglycemia: Encourage oral intake. Will monitor closely. GERD with history of gastric varices: Patient remains NPO. GI plans for EGD. If unremarkable will transition to clear liquids and advance as tolerated. Continue Protonix. Methamphetamine abuse: Patient was again positive for amphetamines. Will need to address cessation. Medical noncompliance: Will need to continue to address compliance with her medication. Patient has been non compliant in the past. DVT prophylaxis: Heparin CODE STATUS: Patient is full code Advance care planning: Anticipate home at discharge Time Spent Managing Pts Care (In Minutes): 55
[2021-03-25] MEDS: MORPHINE 2 MG/ML SYR IV PRN ×2 (07:20→21:08)
[2021-03-25] MEDS: HEPARIN 5000 UNIT/ML 1 ML VIAL SQ SCH ×2 (07:21→20:55)
[2021-03-25] MEDS: CEFTRIAXONE/SWI 1gm 1 GM/10 ML SYR IVP SCH (07:24)
[2021-03-25] MEDS: PANTOPRAZOLE 40 MG INJ IVP SCH ×2 (07:24→20:56)
[2021-03-25] MEDS: THIAMINE 200 MG/2 ML INJ IVP SCH (07:24)
--- NOTE | 2021-03-25 07:31 | EKG ---
Test Date: 2021-03-23 Test Time: 10:40:17 [employer]: SV MEASUREMENT RESULTS: Intervals: Rate: 125 NJ: 130 QRSD: 64 QT: 332 QTc: 479 Globe: P: 93 NJ: 130 QRS: 71 T: 64 INTERPRETIVE STATEMENTS: Sinus tachycardia Low voltage QRS Cannot rule out Anterior infarct, age undetermined Abnormal ECG Compared to ECG 02/15/2021 01:36:33 No significant changes Electronically Signed On 03-25-21 07:27:00 CDT by Josué Park
[2021-03-25] MEDS ORDERED: THIAMINE 200 MG/2 ML INJ ONE (07:43)
[2021-03-25] MEDS ORDERED: PANTOPRAZOLE 40 MG INJ ONE ×2 (07:43→20:58)
[2021-03-25] MEDS ORDERED: CEFTRIAXONE/SWI 1gm 1 GM/10 ML SYR ONE (07:44)
--- NOTE | 2021-03-25 07:53 | RAD REPORT ---
EXAM DESCRIPTION: RAD - Chest Single View - 03/25/2021 4:43 am CLINICAL HISTORY: volume overload COMPARISON: Portable March 24 TECHNIQUE: AP portable chest image was obtained 03/25/2021 4:43 am . FINDINGS: Lung volumes are low. Interstitial markings are prominent, increased slightly from prior i maging. Heart size is normal range for shallow inspiration portable imaging. Vascular engorgement is present. Bilateral pleural effusions are present. There is no pneumothorax. No acute bony abnormality seen. No acute aortic findings suspected. IMPRESSION: CHF/volume overload pattern slightly worse than prior day imaging.
[2021-03-25] MEDS ORDERED: ALBUMIN HUMAN 25% 100 ML IV ONE ×2 (09:09→10:17)
[2021-03-25] MEDS: FOLIC ACID 1 MG in NA CHLORIDE 0.9% 50 ML IV SCH (09:16)
--- NOTE | 2021-03-25 09:33 | RAD REPORT ---
EXAM DESCRIPTION: US - Paracentesis Proc Guidance - 03/25/2021 9:04 am CLINICAL HISTORY: Ascites COMPARISON: None. TECHNIQUE: The patient presents for ultrasound-guided paracentesis. The procedure, risks and altern atives were discussed with the patient's guardian. Consent was obtained over the telephone by the [facility] member or guardian. Time out procedure was performed. The patient had no contraindicated allergy or medication history. PT, INR values within acceptable limits. Preliminary sonographic evaluation identified right lower quadrant access site. The skin and deeper tissues were anesthetized with 1 percent lidocaine. Under direct sonographic visualization, a parace ntesis catheter was advanced into the peritoneal cavity. Approximately 10 mL of ascites was retained for laboratory studies. Large volume drainage was initiated. Approximately 2.5 liters of ascites emma paul as requested. At the conclusion of the procedure, catheter was withdrawn and a bandage placed at the puncture site. Patient was transferred back to the floor for continued care. IMPRESSION: Ultrasound-guided paracentesis was performed. Approximately 10 mL of ascites retained for laboratory studies. Approximately 2.5 liters of ascites r emoved as requested.
[2021-03-25 13:01] LABS: Hematocrit 22.8 % (36.0-45.0)
[2021-03-25] MEDS ORDERED: Ringers Lactate 1,000 ML IV ONE (13:30)
[2021-03-25] MEDS ORDERED: propofoL 200 MG/20 ML VIAL IV ONE ×2 (14:15→14:16)
[2021-03-25] MEDS ORDERED: LIDOCAINE 1% MPF 5 ML VIAL ONE (14:16)
--- NOTE | 2021-03-25 14:31 | ENDO RPT ---
[address], [address] EGD PROCEDURE REPORT EXAM DATE: 03/25/2021 PATIENT NAME: Lorena Hansen MR#: [id number] BIRTHDATE: 1970 ATTENDING: [address] STATUS: inpatient - 7 ONLINE CONTENT DEVELOPER: Andra Pate RN and Wilma Hoffmann RN INDICATIONS: The patient is a 50 yr old Female here for an EGD due to coffee-ground / hematemesis, upper G.I. bleeding, and anemia PROCEDURE PERFORMED: EGD with biopsy MEDICATIONS: Per Anesthesia. TOPICAL ANESTHETIC: none CONSENT: The patient understands the risks and benefits of the procedure and understands that these risks include, but are not limited to: sedation, allergic reaction, infection, perforation and/or bleeding. Alternative means of evaluation and treatment include, among others: physical exam, x-rays, and/or surgical intervention. The patient elects to proceed with this endoscopic procedure. DESCRIPTION OF PROCEDURE: During intra-op preparation period all mechanical medical equipment was checked for proper function. Hand hygiene and appropriate measures for infection prevention was taken. Procedure, possible complications, and alternatives including but not limited to the possibility of bleeding, perforation, tear, infection, sepsis, need for surgery, need for blood transfusion, and anesthesia related complications were explained to the patient. After the risks, benefits and alternatives of the procedure were thoroughly explained, Informed consent was verified, confirmed and timeout was successfully executed by the treatment team. The patient was placed in the left lateral position. The patient was anesthetized with topical anesthesia. Through the anesthetized oropharyngeal area, the scope was passed without any difficulty. The Pentax EG-[id number] ([id number]) endoscope was introduced through the mouth and advanced to the third portion of the duodenum. Retroflexed views revealed no abnormalities. The gastroscope was then slowly withdrawn and removed. Portal hypertensive gastropathy was found in the body of the stomach. Mild gastritis was found in the antrum. With jumbo forceps, a biopsy was obtained and sent to pathology. No esophageal varices identified. ADVERSE EVENTS: There were no complications. IMPRESSIONS: 1. Portal hypertensive gastropathy in the body of the stomach 2. Mild gastritis in the antrum, s/p biopsies 3. No esophageal varices identified RECOMMENDATIONS: 1. await biopsy results 2. acid suppression therapy REPEAT EXAM: [address] eSigned: [address] 03/25/2021 2:31 PM cc: Bhavesh Pineda CPT CODES: ICD9 CODES: PATIENT NAME: Lorena HansenLuz MR#: [id number]
[2021-03-25] MEDS ORDERED: LACTULOSE 20 GM/30 ML UCUP PO PRN (14:51)
[2021-03-25] MEDS ORDERED: POTASSIUM 25 MEQ EFFERV TAB ONE (18:52)
--- NOTE | 2021-03-25 18:54 | CON ---
Date of Consultation: 03/24/2021 Reason For Consultation: Hepatic encephalopathy with anemia and coffee-ground emesis. History Of Present Illness: The patient is a 50-year-old female with history of end-stage l iver disease secondary to alcohol abuse in the past. The patient presented to the hospital for recur rent altered mental status due to hepatic encephalopathy. The patient has multidrug abuse including alcohol, , and other polysubstance abuse. The patient is altered, cannot really communicat e, and obtunded. She moans and groans to physical stimuli. Past Medical History: 1.Significant for end-stage liver disease and cirrhosis due to alcohol abuse in the past. 2.Multidrug abuse, methamphetamine abuse noted on chart. 3.History of gastroesophageal reflux disease. 4.History of peptic ulcer disease. 5.Diastolic congestive heart failure. 6.History of esophageal varices. 7.Noncompliance with medications. 8.Recurrent admissions for hepatic encephalopathy. 9.Gallbladder surgery. 10.Laparoscopic cholecystectomy. Medications: See the chart. Allergies: APPEARS NKDA. Social History: Lives at home with family. Polysubstance abuse including alcohol abuse heavy in the past. Family History: Mother had cancer. Father had heart disease on chart review. Review of Systems: She has altered mental status, coffee-grounds emesis. Noted by staff in the ICU, which is in the [facility] here at this hospital. Physical Examination: Vital Signs: The patient is 5 feet 7 inches, 230 pounds, BMI of 36 kg/m2. General: She is a slightly obese female, in no acute distress, lying in bed, obtunded, not really re sponded to any questions, though does respond to physical stimuli with moans and groans. HEENT: Normocephalic, atraumatic. Anicteric. Pupils are reactive. Neck: Supple. No masses. Respirations: Diminished somewhat, but able to move air well. Cardiac: Regular rate and rhythm. Gastrointestinal: Positive bowel sounds. Soft, nontender, nondistended. No masses. No hepatosplen omegaly. Extremities: No clubbing, cyanosis, or edema. 2+ pulses. Neuro: She is obtunded and unresponsive. She responds to physical stimuli with moans and groans. A ble to move all extremities. Laboratory Data: She has a white count of 16.9 up from 9.0 yesterday, hemoglobin 7.6 down from 8.6 y esterday, hematocrit 24.1, MCV of 88.3, platelet count of 99, polys of 88%, lymphocytes 5%, monocytes 6%. She has a PT of 16.7, INR of 1.45. She has sodium 146, potassium 3.1, chloride 109, bicarb 26, BUN of 26, creatinine of 1.8. Lactate 3.4, down from 4.4 earlier. Calcium 7.8, magnesium 1.6, dire ct bilirubin 5.7 down from 6.0 yesterday. AST of 68, ALT of 33, alkaline phosphatase 94, ammonia 44 down from 132 yesterday. Total protein 5.3, albumin 1.6, 1+ blood, 1+ protein on the urinalysis, 5-1 0 RBCs, 5-10 white blood cells, less than 5 squamous epithelial cells, negative nitrite and leukocyte esterase. Positive tox screen for amphetamines. COVID-[address] abdomen and pelvis reve aled significant anasarca, ascites, bilateral pleural effusions, advanced liver cirrhosis. There was no contrast given. There are lumbar degenerative changes as well. There are cholecystectomy change s with clips in place and a moderate size hiatal hernia noted. Otherwise, negative. Impression: 1.Hepatic encephalopathy with ammonia level elevated at 132. Continue lactulose and Xifaxan. Enema was given in the emergency Room. This is recurrent and the patient has been multiple times in [facility] with a history of multidrug abuse, it appears. 2.Anemia. Hemoglobin down to 7.6 from 8.6 yesterday. EGD. 3.Coffee-ground emesis EGD. 4.History of alcoholic cirrhosis, polysubstance abuse including methamphetamine abuse and other as p er above. Recommendations: 1.Lactulose and Xifaxan therapy. 2.Serial H and H, and transfuse p.r.n. Goal hemoglobin of 7 to 8 with history of esophageal varices in the past. 3.EGD. 4.Alcohol synonyms and/or rehab for polysubstance abuse on discharge. 5.Thiamine and folate. 6.DT precautions. 7.Benzodiazepines p.r.n. WS/MODL Voice ID: [id number] Report ID: [id number]
[2021-03-25] MEDS ORDERED: ALBUMIN HUMAN 25% 200 ML IV ONE (19:00)
[2021-03-25] MEDS ORDERED: POTASSIUM 25 MEQ EFFERV TAB PO ONE (19:00)
[2021-03-25] MEDS: SPIRONOLACTONE 25 MG TABLET PO SCH (20:55)
[2021-03-25] MEDS: LACTULOSE 20 GM/30 ML UCUP PO SCH (20:55)
[2021-03-25] MEDS: Rifaximin 550 MG Tab PO SCH (20:56)
[2021-03-25] MEDS ORDERED: LACTULOSE 20 GM/30 ML UCUP ONE (20:58)
[2021-03-25] MEDS ORDERED: MORPHINE 2 MG/ML SYR ONE (20:59)
[2021-03-25] MEDS ORDERED: SPIRONOLACTONE 25 MG TABLET ONE (21:04)
[2021-03-25] MEDS: PROMETHAZINE INJ 25 MG/ML AMP IV PRN (21:32)
--- NOTE | 2021-03-25 21:36 | P.PN ---
Date of Service: 03/25/21 Vital Signs Temp Pulse Resp BP Pulse Ox 97.5 F 110 H 18 148/102 H 100 03/25/21 20:00 03/25/21 21:00 03/25/21 21:08 03/25/21 21:00 03/25/21 21:08 Medications Acetaminophen (Acetaminophen 650mg/Rect Supp) 650 mg TX Q6HP PRN PRN Reason: TEMP > 101' F Acetaminophen (Acetaminophen 500 Mg Tab) 500 mg PO Q4HP PRN PRN Reason: TEMP > 101' F Hydrocodone Bitart/Acetaminophen (Hydrocodone/Apap 7.5/325 Mg Tab) 1 tab PO Q6H PRN PRN Reason: Pain scale 5-7 (Moderate) Heparin Sodium (Porcine) (Heparin 5000 Unit/Ml 1 Ml Vial) 5,000 unit SQ Q12HR [facility] Last Admin: 03/25/21 20:55 Dose: Not Given Documented by: Folic Acid 1 mg/ Sodium (Chloride) 50.2 mls @ 200 mls/hr IV DAILY [facility] Last Admin: 03/25/21 09:16 Dose: 50.2 mls Documented by: Ceftriaxone Sodium/Sodium Chloride (Rocephin 1 Gm/10 Ml Swi Ivp) 1 gm in 10 mls @ 600 mls/hr IVP DAILY [facility]; Protocol Last Admin: 03/25/21 07:24 Dose: 10 mls Documented by: Dextrose/Water (Dextrose In Water (1-Liter)) 1,000 mls @ 75 mls/hr IV .[id number] [facility] Last Admin: 03/25/21 17:20 Dose: 1,000 mls Documented by: Lactulose (Lactulose 20 Gm/30 Ml Ucup) 10 gm PO TID [facility] Last Admin: 03/25/21 20:55 Dose: 10 gm Documented by: Lorazepam (Lorazepam 2 Mg/Ml Vial) 0.5 mg IV Q4HR PRN PRN Reason: AGITATION Last Admin: 03/24/21 10:53 Dose: 0.5 mg Documented by: Morphine Sulfate (Morphine 2 Mg/Ml Syr) 2 mg IV Q6H PRN PRN Reason: Pain scale 5-7 (Moderate) Last Admin: 03/25/21 21:08 Dose: 2 mg Documented by: Ondansetron HCl (Ondansetron 4 Mg/2 Ml Vial) 4 mg IV Q4H PRN PRN Reason: NAUSEA / VOMITING Pantoprazole Sodium (Pantoprazole 40 Mg Inj) 40 mg IVP Q12HR [facility]; Protocol Last Admin: 03/25/21 20:56 Dose: 40 mg Documented by: Promethazine HCl (Promethazine Inj 25 Mg/Ml Amp) 12.5 mg IV Q4H PRN PRN Reason: NAUSEA / VOMITING Last Admin: 03/24/21 04:15 Dose: 12.5 mg Documented by: Rifaximin (Rifaximin 550 Mg Tab) 550 mg PO BID [facility]; Protocol Last Admin: 03/25/21 20:56 Dose: 550 mg Documented by: Sodium Chloride (Flush Normal Saline 10 Ml) 10 ml IV BID [facility] Last Admin: 03/25/21 20:56 Dose: 10 ml Documented by: Sodium Chloride (Sodium Chloride 0.9% 10ml Inj) 10 ml IV UD PRN PRN Reason: Diluant Spironolactone (Spironolactone 25 Mg Tablet) 25 mg PO BID [facility] Last Admin: 03/25/21 20:55 Dose: 25 mg Documented by: Thiamine HCl (Thiamine 200 Mg/2 Ml Inj) 100 mg IVP DAILY [facility] Last Admin: 03/25/21 07:24 Dose: 100 mg Documented by: Tramadol HCl (Tramadol Hcl 50 Mg Tab) 50 mg PO TID PRN PRN Reason: Pain scale 2-4 (Mild) Microbiology Results 03/23/21 14:20 Catheterized Urine [place] Count - Final No growth. 03/23/21 14:20 Catheterized Urine - Final No growth. 03/23/21 11:30 Blood - Blood Aerobic Blood Culture - Preliminary No growth in 24 hours. 03/23/21 11:30 Blood - Blood Anaerobic Blood Culture - Preliminary No growth in 24 hours. 03/23/21 11:30 Blood - Blood Aerobic Blood Culture - Preliminary No growth in 24 hours. 03/23/21 11:30 Blood - Blood Anaerobic Blood Culture - Preliminary No growth in 24 hours. Assessment/ Plan: Nephrology Progress Note Paracentesis today No acute events overnight Seen and examined in the ICU Vitals, medications blood work and imaging reviewed in the chart NAD. NCAT. MMM. Neck supple. Diminished. RRR. Distended, NT Abd. No C/C. LE Edema 2-3+. Awake. Normal speech. A/P Continue current POC and Medications other than the changes listed. AM labs as ordered. Recommend daily weight. JAS may be Prerenal vs HRS CKD III with proteinuria -No NSAIDs -Give IV Albumin Hypokalemia -Replete potassium -Start spironolactone bid Severe malnutrition -Give IV Albumin 25g X3 Anemia in chronic illness Liver cirrhosis -Start spironolactone
[2021-03-25] MEDS ORDERED: PROMETHAZINE INJ 25 MG/ML AMP ONE (21:46)
[2021-03-26] MEDS ORDERED: FENTANYL CITR 100 MCG/2 ML ONE (04:56)
[2021-03-26 05:33] LABS: Absolute Lymphocytes (CBC) 0.9 K/uL (0.7-4.9); Basophils % 0.7 % (0-1.3); Lymphocytes % 22.9 % (15.3-44.8); MPV 8.8 fL (7.6-11.3); RBC Red Blood Cell Count 2.34 M/uL (3.86-4.86)
[2021-03-26 05:38] LABS: Protime INR 1.88
[2021-03-26 05:39] LABS: Hematocrit 20.9 % (36.0-45.0)
[2021-03-26 05:41] LABS: Albumin 2.3 g/dL (3.4-5.0); Bilirubin Total 2.9 mg/dL (0.2-1.0); Magnesium 1.8 mg/dL (1.8-2.4); Phosphorus 3.3 mg/dL (2.5-4.9); Potassium 3.2 mmol/L (3.5-5.1); Protein, Total 4.6 g/dL (6.4-8.2); Uric Acid 14.4 mg/dL (2.6-6.0)
--- NOTE | 2021-03-26 06:51 | P.PN ---
Subjective Date of Service: 03/26/21 Primary Care Provider: none Chief Complaint: Altered mental status Subjective: Other (Patient is alert. Reports being cold and some pain throughout.) Physical Examination - Vital Signs Temperature: 97.8 F Blood Pressure: 130/107 Pulse: 106 Respirations: 14 Pulse Ox (%): 100 - Studies Microbiology Data (last 24 hrs): 03/23/21 14:20 Catheterized Urine [place] Count - Final No growth. 03/23/21 14:20 Catheterized Urine - Final No growth. Assessment & Plan Discharge Plan: Home Plan to discharge in: 72 Hours Physician Review Additional Text: Physical Exam: GENERAL: Patient more alert. Better urinary output today. VITAL SIGNS: Reviewed HEENT: Neck supple. No focal deficits. NECK: No thyromegaly LUNGS: Clear to auscultation. No crackles or wheezes are heard. HEART: Regular rate and rhythm, no appreciable gallops, rubs, murmurs or extra heart sounds ABDOMEN: Ascites noted. No significant pain with palpation. EXTREMITIES: Edema to the lower extremities about 2+ pitting. NEUROLOGIC: Increased somnolence noted SKIN: Normal color, turgor and temperature. No ulcerations or rashes noted. Impression: Altered mental status secondary to hepatic encephalopathy related to advanced alcoholic cirrhosis of the liver Acute renal failure likely dehydration Elevated liver function, hyperbilirubinemia, hyperammonemia secondary to alcoholic cirrhosis of liver Hypoglycemia Anemia of chronic disease Methamphetamine abuse GERD with history of gastric varices Medical noncompliance Plan Altered mental status secondary to hepatic encephalopathy related to advanced alcoholic cirrhosis of the liver: Patient more alert. Doing better. Hemoglobin is low. Will transfuse one unit of blood this am. Lasix to be given after. Recheck Hemoglobin one hour after transfusion. Maintain Hemoglobin above 7.5. EGD showed no bleeding. Gastritis noted. She also had paracentesis done yesterday with removal of 2.5 L. Lactulose changed to oral medication. Will have PT ambulate. Will decrease IV fluids to 50 cc per hour. Currently on D5W. Aldactone started by Nephrology. Will restart Lasix. Will transfer to floor later today if better overall. Anticipate improvement over the next 72 hours. Acute renal failure likely dehydration: Better urinary output. Decrease D5W to 50 cc/h. Patient on IV antibiotic therapy empirically. Will discuss with nephrology. Anemia of chronic disease: Transfuse one unit of blood today. Maintain hemoglobin greater than 7.5. Elevated liver function with hyperbilirubinemia and hyperammonia secondary to alcoholic cirrhosis: Continue to monitor lab closely. Continue as above. Hypoglycemia: Encourage oral intake. Will monitor closely. GERD with history of gastric varices: EGD done yesterday showed no bleeding. Will get blood today. Advance diet. On Protonix. Methamphetamine abuse: Patient was again positive for amphetamines. Will need to address cessation. Medical noncompliance: Will need to continue to address compliance with her medication. Patient has been non compliant in the past. DVT prophylaxis: Heparin CODE STATUS: Patient is full code Advance care planning: Anticipate home at discharge Time Spent Managing Pts Care (In Minutes): 55
[2021-03-26] MEDS: FUROSEMIDE 40 MG TABLET PO SCH ×2 (08:16→20:38)
[2021-03-26] MEDS: FOLIC ACID 1 MG in NA CHLORIDE 0.9% 50 ML IV SCH (08:16)
[2021-03-26] MEDS: PANTOPRAZOLE 40 MG INJ IVP SCH ×2 (08:17→20:39)
[2021-03-26] MEDS: D5W 1,000 ML IV SCH (08:17)
[2021-03-26] MEDS: CEFTRIAXONE/SWI 1gm 1 GM/10 ML SYR IVP SCH (08:17)
[2021-03-26] MEDS: LACTULOSE 20 GM/30 ML UCUP PO SCH ×3 (08:18→20:38)
[2021-03-26] MEDS: HEPARIN 5000 UNIT/ML 1 ML VIAL SQ SCH ×2 (08:18→20:38)
[2021-03-26] MEDS: THIAMINE 200 MG/2 ML INJ IVP SCH (08:19)
[2021-03-26] MEDS: SPIRONOLACTONE 25 MG TABLET PO SCH ×2 (08:23→20:42)
[2021-03-26] MEDS ORDERED: AMLODIPINE 5 MG TAB ONE (08:29)
[2021-03-26] MEDS ORDERED: FUROSEMIDE 40 MG TABLET ONE ×2 (08:29→20:48)
[2021-03-26] MEDS ORDERED: PANTOPRAZOLE 40 MG INJ ONE ×2 (08:29→20:48)
[2021-03-26] MEDS ORDERED: CEFTRIAXONE/SWI 1gm 1 GM/10 ML SYR ONE (08:29)
[2021-03-26] MEDS ORDERED: THIAMINE 200 MG/2 ML INJ ONE (08:29)
[2021-03-26] MEDS ORDERED: LACTULOSE 20 GM/30 ML UCUP ONE ×3 (08:29→20:48)
[2021-03-26] MEDS ORDERED: D5W 1,000 ML IV ONE (08:33)
[2021-03-26] MEDS ORDERED: NA CHLORIDE 0.9% 250 ML ONE (08:33)
[2021-03-26] MEDS ORDERED: SPIRONOLACTONE 25 MG TABLET ONE ×2 (08:43→21:02)
[2021-03-26] MEDS: Rifaximin 550 MG Tab PO SCH ×2 (08:45→20:39)
[2021-03-26] MEDS ORDERED: AMLODIPINE 5 MG TAB PO SCH (09:00)
--- NOTE | 2021-03-26 09:14 | P.PN ---
Subjective Date of Service: 03/26/21 Primary Care Provider: none Chief Complaint: Altered mental status, hepatic encephalopathy, EtOH cirrhosis, anemia Subjective: New changes (Decreased hgb after EGD with biopsies and paracentesis. Coagulopathy worsening with increasing INR to 1.88 from 1.45. No blood seen overnight. Somewhat alert, arousable and trying to eat.) Review of Systems 10-point ROS is otherwise unremarkable General: Weakness, Malaise Neurological: Weakness, Incoordination, Confusion Physical Examination - Vital Signs Temperature: 98.1 F Blood Pressure: 140/93 Pulse: 109 Respirations: 16 Pulse Ox (%): 99 - Physical Exam General: Alert, Cooperative, Disheveled, Confused HEENT: Atraumatic, Normocephalic, EOMI Neck: Supple Respiratory: Normal air movement Cardiovascular: Normal pulses Gastrointestinal: Soft and benign, No tenderness, No rebound, No guarding - Studies Microbiology Data (last 24 hrs): 03/23/21 14:20 Catheterized Urine [place] Count - Final No growth. 03/23/21 14:20 Catheterized Urine - Final No growth. Assessment And Plan - Current Problems (Diagnosis) (1) Anemia Current Visit: No Status: Acute (2) Ascites Current Visit: No Status: Acute (3) Coagulopathy Current Visit: No Status: Acute (4) Hepatic encephalopathy Current Visit: No Status: Acute (5) Hypoalbuminemia Current Visit: No Status: Acute (6) Liver cirrhosis Current Visit: No Status: Acute - Plan REC: 1) agree with [facility] 2) FFP X1 3) continue Lactulose and Xifaxan 4) continue diuretics 5) AA or other rehab on discharge for polysubstance abuse with psychology therapy Physician Review Additional Text: Physical Exam: GENERAL: Patient more alert. Better urinary output today. VITAL SIGNS: Reviewed HEENT: Neck supple. No focal deficits. NECK: No thyromegaly LUNGS: Clear to auscultation. No crackles or wheezes are heard. HEART: Regular rate and rhythm, no appreciable gallops, rubs, murmurs or extra heart sounds ABDOMEN: Ascites noted. No significant pain with palpation. EXTREMITIES: Edema to the lower extremities about 2+ pitting. NEUROLOGIC: Increased somnolence noted SKIN: Normal color, turgor and temperature. No ulcerations or rashes noted. Impression: Altered mental status secondary to hepatic encephalopathy related to advanced alcoholic cirrhosis of the liver Acute renal failure likely dehydration Elevated liver function, hyperbilirubinemia, hyperammonemia secondary to alcoholic cirrhosis of liver Hypoglycemia Anemia of chronic disease Methamphetamine abuse GERD with history of gastric varices Medical noncompliance Plan Altered mental status secondary to hepatic encephalopathy related to advanced alcoholic cirrhosis of the liver: Patient more alert. Doing better. Hemoglobin is low. Will transfuse one unit of blood this am. Lasix to be given after. Recheck Hemoglobin one hour after transfusion. Maintain Hemoglobin above 7.5. EGD showed no bleeding. Gastritis noted. She also hd paracentesis done yesterday with removal of 2.5 L. Lactulose changed to oral medication. Will have PT ambulate. Will decrease IV fluids to 50 cc per hour. Currently on D5W. Aldactone started by Nephrology. Will restart Lasix. Will transfer to floor later today if better overall. Anticipate improvement over the next 72 hours. Acute renal failure likely dehydration: Better urinary output. Decrease D5W to 50 cc/h. Patient on IV antibiotic therapy empirically. Will discuss with nephrology. Anemia of chronic disease: Transfuse one unit of blood today. Maintain hemoglobin greater than 7.5. Elevated liver function with hyperbilirubinemia and hyperammonia secondary to alcoholic cirrhosis: Continue to monitor lab closely. Continue as above. Hypoglycemia: Encourage oral intake. Will monitor closely. GERD with history of gastric varices: EGD done yesterday showed no bleeding. Will get blood today. Advance diet. On Protonix. Methamphetamine abuse: Patient was again positive for amphetamines. Will need to address cessation. Medical noncompliance: Will need to continue to address compliance with her medication. Patient has been non compliant in the past. DVT prophylaxis: Heparin CODE STATUS: Patient is full code Advance care planning: Anticipate home at discharge
[2021-03-26] MEDS: NA CHLORIDE 0.9% 250 ML IV SCH (09:19)
[2021-03-26] MEDS ORDERED: FUROSEMIDE 40 MG/4 ML VIAL IV ONE (10:00)
[2021-03-26] MEDS ORDERED: POTASSIUM CL SA 10 MEQ TAB PO ONE ×4 (10:28→15:43)
--- NOTE | 2021-03-26 10:35 | P.PN ---
Date of Service: 03/26/21 Vital Signs Temp Pulse Resp BP Pulse Ox 98.1 F 109 H 16 140/93 H 99 03/26/21 10:08 03/26/21 10:08 03/26/21 10:08 03/26/21 10:08 03/26/21 10:08 Medications Acetaminophen (Acetaminophen 650mg/Rect Supp) 650 mg IN Q6HP PRN PRN Reason: TEMP > 101' F Acetaminophen (Acetaminophen 500 Mg Tab) 500 mg PO Q4HP PRN PRN Reason: TEMP > 101' F Hydrocodone Bitart/Acetaminophen (Hydrocodone/Apap 7.5/325 Mg Tab) 1 tab PO Q6H PRN PRN Reason: Pain scale 5-7 (Moderate) Amlodipine Besylate (Amlodipine 5 Mg Tab) 5 mg PO DAILY [facility] Last Admin: 03/26/21 08:16 Dose: 5 mg Documented by: Furosemide (Furosemide 40 Mg Tablet) 40 mg PO BID [facility] Last Admin: 03/26/21 08:16 Dose: 40 mg Documented by: Heparin Sodium (Porcine) (Heparin 5000 Unit/Ml 1 Ml Vial) 5,000 unit SQ Q12HR [facility] Last Admin: 03/26/21 08:18 Dose: Not Given Documented by: Folic Acid 1 mg/ Sodium (Chloride) 50.2 mls @ 200 mls/hr IV DAILY [facility] Last Admin: 03/26/21 08:16 Dose: 50.2 mls Documented by: Ceftriaxone Sodium/Sodium Chloride (Rocephin 1 Gm/10 Ml Swi Ivp) 1 gm in 10 mls @ 600 mls/hr IVP DAILY [facility]; Protocol Last Admin: 03/26/21 08:17 Dose: 10 mls Documented by: Dextrose/Water (Dextrose In Water (1-Liter)) 1,000 mls @ 50 mls/hr IV .Q20H [facility] Last Admin: 03/26/21 08:17 Dose: 1,000 mls Documented by: Sodium Chloride (Sodium Chloride) 250 mls @ 0 mls/hr IV .Q0M [facility] Last Admin: 03/26/21 09:19 Dose: 250 mls Documented by: Lactulose (Lactulose 20 Gm/30 Ml Ucup) 10 gm PO TID [facility] Last Admin: 03/26/21 08:18 Dose: 10 gm Documented by: Lorazepam (Lorazepam 2 Mg/Ml Vial) 0.5 mg IV Q4HR PRN PRN Reason: AGITATION Last Admin: 03/24/21 10:53 Dose: 0.5 mg Documented by: Morphine Sulfate (Morphine 2 Mg/Ml Syr) 2 mg IV Q6H PRN PRN Reason: Pain scale 5-7 (Moderate) Last Admin: 03/25/21 21:08 Dose: 2 mg Documented by: Ondansetron HCl (Ondansetron 4 Mg/2 Ml Vial) 4 mg IV Q4H PRN PRN Reason: NAUSEA / VOMITING Pantoprazole Sodium (Pantoprazole 40 Mg Inj) 40 mg IVP Q12HR [facility]; Protocol Last Admin: 03/26/21 08:17 Dose: 40 mg Documented by: Potassium Chloride (Potassium Cl Sa 10 Meq Tab) 40 meq PO 1X ONE Stop: 03/26/21 10:29 Promethazine HCl (Promethazine Inj 25 Mg/Ml Amp) 12.5 mg IV Q4H PRN PRN Reason: NAUSEA / VOMITING Last Admin: 03/25/21 21:32 Dose: 12.5 mg Documented by: Rifaximin (Rifaximin 550 Mg Tab) 550 mg PO BID [facility]; Protocol Last Admin: 03/26/21 08:45 Dose: 550 mg Documented by: Sodium Chloride (Flush Normal Saline 10 Ml) 10 ml IV BID [facility] Last Admin: 03/26/21 08:19 Dose: 10 ml Documented by: Sodium Chloride (Sodium Chloride 0.9% 10ml Inj) 10 ml IV UD PRN PRN Reason: Diluant Spironolactone (Spironolactone 25 Mg Tablet) 25 mg PO BID [facility] Last Admin: 03/26/21 08:23 Dose: 25 mg Documented by: Thiamine HCl (Thiamine 200 Mg/2 Ml Inj) 100 mg IVP DAILY [facility] Last Admin: 03/26/21 08:19 Dose: 100 mg Documented by: Tramadol HCl (Tramadol Hcl 50 Mg Tab) 50 mg PO TID PRN PRN Reason: Pain scale 2-4 (Mild) Microbiology Results 03/23/21 14:20 Catheterized Urine [place] Count - Final No growth. 03/23/21 14:20 Catheterized Urine - Final No growth. 03/23/21 11:30 Blood - Blood Aerobic Blood Culture - Preliminary No growth in 24 hours. 03/23/21 11:30 Blood - Blood Anaerobic Blood Culture - Preliminary No growth in 24 hours. 03/23/21 11:30 Blood - Blood Aerobic Blood Culture - Preliminary No growth in 24 hours. 03/23/21 11:30 Blood - Blood Anaerobic Blood Culture - Preliminary No growth in 24 hours. Assessment/ Plan: Nephrology Progress Note More awake and alert today. Limited IH/ ROS due to confusion. No acute events overnight Vitals, medications blood work and imaging reviewed in the chart NAD. NCAT. MMM. Neck supple. Diminished. RRR. Distended, NT Abd. No C/C. Hip Edema 2-3+. Awake. Normal speech. A/P Continue current POC and Medications other than the changes listed. AM labs as ordered. Recommend daily weight. JAS may be Prerenal vs HRS CKD III with proteinuria -No NSAIDs -Give IV Albumin PRN Hypernatremia -Continue D5W -Give Metolazone X1 dose Hypokalemia -Replete potassium -Continue spironolactone bid Edema/ Anasarca -Continue spironolactone -Continue Lasix BID -Metolazone X1 Severe malnutrition -Give IV Albumin PRN Anemia in chronic illness -Transfuse PRBC today Liver cirrhosis -Continue spironolactone Case reviewed with Dr. Pineda
[2021-03-26] MEDS ORDERED: METOLAZONE 5 MG TABLET PO SCH (12:00)
[2021-03-26] MEDS: MORPHINE 2 MG/ML SYR IV PRN ×2 (12:51→20:39)
[2021-03-26] MEDS ORDERED: MORPHINE 2 MG/ML SYR ONE ×2 (13:10→20:48)
[2021-03-26] MEDS ORDERED: FUROSEMIDE 20 MG/ 2ML VIAL ONE (15:43)
[2021-03-26 17:22] LABS: Hematocrit 25.2 % (36.0-45.0)
[2021-03-26 17:30] LABS: Protime INR 1.53
[2021-03-26] MEDS: HYDROCODONE/APAP 7.5/325 MG TAB PO PRN (17:52)
[2021-03-26] MEDS ORDERED: HYDROCODONE/APAP 7.5/325 MG TAB ONE (18:12)
[2021-03-26] MEDS ORDERED: HEPARIN 5000 UNIT/ML 1 ML VIAL ONE (20:47)
[2021-03-27] MEDS: D5W 1,000 ML IV SCH (02:43)
[2021-03-27] MEDS ORDERED: MORPHINE 2 MG/ML SYR ONE (05:22)
[2021-03-27 05:31] LABS: Absolute Lymphocytes (CBC) 1.2 K/uL (0.7-4.9); Basophils % 0.7 % (0-1.3); Hematocrit 23.8 % (36.0-45.0); Lymphocytes % 26.5 % (15.3-44.8); MPV 8.6 fL (7.6-11.3); RBC Red Blood Cell Count 2.72 M/uL (3.86-4.86)
[2021-03-27 05:41] LABS: Magnesium 1.6 mg/dL (1.8-2.4); Potassium 3.6 mmol/L (3.5-5.1)
--- NOTE | 2021-03-27 06:24 | P.PN ---
Subjective Date of Service: 03/27/21 Primary Care Provider: none Chief Complaint: Altered mental status Subjective: Doing well (Patient doing better. Patient wanting to eat more. Patient more alert) Physical Examination - Vital Signs Temperature: 97.6 F Blood Pressure: 141/87 Pulse: 107 Respirations: 18 Pulse Ox (%): 99 Assessment & Plan Discharge Plan: Home Plan to discharge in: 24 Hours Physician Review Additional Text: Physical Exam: GENERAL: Patient more alert. Blood pressure slightly elevated. VITAL SIGNS: Reviewed HEENT: Neck supple. No focal deficits. NECK: No thyromegaly LUNGS: Clear to auscultation. No crackles or wheezes are heard. HEART: Regular rate and rhythm, no appreciable gallops, rubs, murmurs or extra heart sounds ABDOMEN: Ascites improved no significant abdominal pain EXTREMITIES: Edema to the lower extremities slightly improved NEUROLOGIC: Increased somnolence noted SKIN: Normal color, turgor and temperature. No ulcerations or rashes noted. Impression: Altered mental status secondary to hepatic encephalopathy related to advanced alcoholic cirrhosis of the liver Acute renal failure likely dehydration Elevated liver function, hyperbilirubinemia, hyperammonemia secondary to alcoholic cirrhosis of liver Hypoglycemia Anemia of chronic disease Methamphetamine abuse Hypertension GERD with history of gastric varices Chronic thrombocytopenia secondary to alcoholic cirrhosis Medical noncompliance Plan Altered mental status secondary to hepatic encephalopathy related to advanced alcoholic cirrhosis of the liver: Patient much improved after paracentesis and transfusion. Overall doing better. Will transfuse another unit of blood this am to maintain Hemoglobin above 8.0. Will continue with PT. We will add metoprolol 12.5 mg 1 pill twice daily for better blood pressure control. Will transition to the floor. Will discuss with social service to arrange home health and PT at home. She reports that she is to have new insurance starting next week. Hopefully her insurance will allow her to get Xifaxin. This may help with decrease readmissions. Continue to reassess. Fall precautions in place. Will discuss with nephrology. Anticipate improvement over the next 48 hours. Acute renal failure likely dehydration: Overall improved. No function improved. Encourage oral intake. IV fluids has been discontinued. Will discontinue antibiotic as well. Will discuss with nephrology. Anemia of chronic disease: Still slightly anemic. Patient received transfusion of blood yesterday. Will transfuse 1 unit again today. Maintain hemoglobin above 7.5. Elevated liver function with hyperbilirubinemia and hyperammonia secondary to alcoholic cirrhosis: Continue to monitor lab closely. Continue as above. Hypoglycemia: Encourage oral intake. Will monitor closely. GERD with history of gastric varices: EGD done the other day showed no bleeding. Patient will be transfused as stated above. Continue Protonix. Advance diet. Will monitor closely. Methamphetamine abuse: Patient was again positive for amphetamines. Will address cessation education. Hypertension: Continue Norvasc. Will add metoprolol for better blood pressure control. Will monitor and adjust appropriately. Chronic thrombocytopenia secondary to alcoholic cirrhosis: Overall stable. Hold heparin DVT prophylaxis if platelet count less than 90 Medical noncompliance: Will need to continue to address compliance with her medication. Patient has been non compliant in the past. DVT prophylaxis: Heparin, hold if platelet count less than 90 CODE STATUS: Patient is full code Advance care planning: Anticipate home at discharge Time Spent Managing Pts Care (In Minutes): 55
[2021-03-27] MEDS ORDERED: hydrOXYzine HCL 25 MG TAB PO PRN (07:39)
[2021-03-27] MEDS: CEFTRIAXONE/SWI 1gm 1 GM/10 ML SYR IVP SCH (07:54)
[2021-03-27] MEDS: SPIRONOLACTONE 25 MG TABLET PO SCH ×2 (07:55→20:32)
[2021-03-27] MEDS: PANTOPRAZOLE 40 MG INJ IVP SCH ×2 (07:55→20:32)
[2021-03-27] MEDS: AMLODIPINE 5 MG TAB PO SCH (07:56)
[2021-03-27] MEDS: FUROSEMIDE 40 MG TABLET PO SCH ×2 (07:56→20:32)
[2021-03-27] MEDS: HEPARIN 5000 UNIT/ML 1 ML VIAL SQ SCH ×2 (07:57→20:38)
[2021-03-27] MEDS ORDERED: FUROSEMIDE 40 MG TABLET ONE (08:08)
[2021-03-27] MEDS ORDERED: AMLODIPINE 5 MG TAB ONE (08:08)
[2021-03-27] MEDS ORDERED: THIAMINE 200 MG/2 ML INJ ONE (08:08)
[2021-03-27] MEDS ORDERED: POTASSIUM CL SA 10 MEQ TAB PO ONE ×2 (08:08→15:02)
[2021-03-27] MEDS ORDERED: CEFTRIAXONE/SWI 1gm 1 GM/10 ML SYR ONE (08:09)
[2021-03-27] MEDS ORDERED: PANTOPRAZOLE 40 MG INJ ONE (08:09)
[2021-03-27] MEDS ORDERED: MAGNESIUM SULFATE 1 gm IVPB 1 GM/100 ML BAG IV ONE ×2 (08:09→09:00)
[2021-03-27] MEDS ORDERED: SPIRONOLACTONE 25 MG TABLET ONE (08:14)
[2021-03-27] MEDS: NA CHLORIDE 0.9% 250 ML IV SCH (08:20)
[2021-03-27] MEDS: LACTULOSE 20 GM/30 ML UCUP PO SCH ×3 (08:21→20:32)
[2021-03-27] MEDS: Rifaximin 550 MG Tab PO SCH ×2 (08:21→21:00)
[2021-03-27] MEDS: THIAMINE 200 MG/2 ML INJ IVP SCH (08:21)
[2021-03-27] MEDS ORDERED: POTASSIUM 25 MEQ EFFERV TAB ONE (08:27)
[2021-03-27] MEDS ORDERED: NA CHLORIDE 0.9% 250 ML ONE (08:38)
[2021-03-27] MEDS ORDERED: POTASSIUM 25 MEQ EFFERV TAB PO ONE (09:00)
[2021-03-27] MEDS: FOLIC ACID 1 MG in NA CHLORIDE 0.9% 50 ML IV SCH (09:07)
[2021-03-27] MEDS ORDERED: FUROSEMIDE 20 MG/ 2ML VIAL IV ONE (12:36)
[2021-03-27] MEDS ORDERED: FUROSEMIDE 20 MG/ 2ML VIAL ONE (13:01)
[2021-03-27] MEDS: MORPHINE 2 MG/ML SYR IV PRN ×2 (14:31→20:31)
--- NOTE | 2021-03-27 15:03 | P.PN ---
Date of Service: 03/27/21 Vital Signs Temp Pulse Resp BP Pulse Ox 99.0 F 116 H 18 182/103 H 98 03/27/21 12:00 03/27/21 13:18 03/27/21 14:31 03/27/21 13:18 03/27/21 14:31 Medications Acetaminophen (Acetaminophen 650mg/Rect Supp) 650 mg CO Q6HP PRN PRN Reason: TEMP > 101' F Acetaminophen (Acetaminophen 500 Mg Tab) 500 mg PO Q4HP PRN PRN Reason: TEMP > 101' F Hydrocodone Bitart/Acetaminophen (Hydrocodone/Apap 7.5/325 Mg Tab) 1 tab PO Q6H PRN PRN Reason: Pain scale 5-7 (Moderate) Last Admin: 03/26/21 17:52 Dose: 1 tab Documented by: Amlodipine Besylate (Amlodipine 5 Mg Tab) 5 mg PO DAILY [facility] Last Admin: 03/27/21 07:56 Dose: 5 mg Documented by: Furosemide (Furosemide 40 Mg Tablet) 40 mg PO BID [facility] Last Admin: 03/27/21 07:56 Dose: 40 mg Documented by: Heparin Sodium (Porcine) (Heparin 5000 Unit/Ml 1 Ml Vial) 5,000 unit SQ Q12HR [facility] Last Admin: 03/27/21 07:57 Dose: Not Given Documented by: Folic Acid 1 mg/ Sodium (Chloride) 50.2 mls @ 200 mls/hr IV DAILY [facility] Last Admin: 03/27/21 09:07 Dose: 50.2 mls Documented by: Lactulose (Lactulose 20 Gm/30 Ml Ucup) 10 gm PO TID [facility] Last Admin: 03/27/21 14:31 Dose: 10 gm Documented by: Lorazepam (Lorazepam 2 Mg/Ml Vial) 0.5 mg IV Q4HR PRN PRN Reason: AGITATION Last Admin: 03/24/21 10:53 Dose: 0.5 mg Documented by: Metoprolol Tartrate (Metoprolol Tar 25 Mg Tab) 25 mg PO BID 6AM 6PM [facility] Morphine Sulfate (Morphine 2 Mg/Ml Syr) 2 mg IV Q6H PRN PRN Reason: Pain scale 5-7 (Moderate) Last Admin: 03/27/21 14:31 Dose: 2 mg Documented by: Ondansetron HCl (Ondansetron 4 Mg/2 Ml Vial) 4 mg IV Q4H PRN PRN Reason: NAUSEA / VOMITING Pantoprazole Sodium (Pantoprazole 40 Mg Inj) 40 mg IVP Q12HR [facility]; Protocol Last Admin: 03/27/21 07:55 Dose: 40 mg Documented by: Promethazine HCl (Promethazine Inj 25 Mg/Ml Amp) 12.5 mg IV Q4H PRN PRN Reason: NAUSEA / VOMITING Last Admin: 03/25/21 21:32 Dose: 12.5 mg Documented by: Rifaximin (Rifaximin 550 Mg Tab) 550 mg PO BID [facility]; Protocol Last Admin: 03/27/21 08:21 Dose: 550 mg Documented by: Sodium Chloride (Flush Normal Saline 10 Ml) 10 ml IV BID [facility] Last Admin: 03/27/21 07:55 Dose: 10 ml Documented by: Sodium Chloride (Sodium Chloride 0.9% 10ml Inj) 10 ml IV UD PRN PRN Reason: Diluant Spironolactone (Spironolactone 25 Mg Tablet) 25 mg PO BID [facility] Last Admin: 03/27/21 07:55 Dose: 25 mg Documented by: Thiamine HCl (Thiamine 200 Mg/2 Ml Inj) 100 mg IVP DAILY [facility] Last Admin: 03/27/21 08:21 Dose: 100 mg Documented by: Tramadol HCl (Tramadol Hcl 50 Mg Tab) 50 mg PO TID PRN PRN Reason: Pain scale 2-4 (Mild) Microbiology Results 03/23/21 14:20 Catheterized Urine [place] Count - Final No growth. 03/23/21 14:20 Catheterized Urine - Final No growth. 03/23/21 11:30 Blood - Blood Aerobic Blood Culture - Preliminary No growth in 24 hours. 03/23/21 11:30 Blood - Blood Anaerobic Blood Culture - Preliminary No growth in 24 hours. 03/23/21 11:30 Blood - Blood Aerobic Blood Culture - Preliminary No growth in 24 hours. 03/23/21 11:30 Blood - Blood Anaerobic Blood Culture - Preliminary No growth in 24 hours. Assessment/ Plan: Nephrology Progress Note Intermittent pain No acute events overnight Vitals, medications blood work and imaging reviewed in the chart NAD. NCAT. MMM. Neck supple. Diminished. RRR. Distended, NT Abd. No C/C. Hip Edema 2+. Awake. Normal speech. A/P Continue current POC and Medications other than the changes listed. AM labs as ordered. Recommend daily weight. JAS may be Prerenal vs HRS CKD III with proteinuria -No NSAIDs -Give IV Albumin PRN Hypernatremia -Discontinue IVF -Give Metolazone X1 dose Hypokalemia -Replete potassium -Continue spironolactone bid Edema/ Anasarca -Continue spironolactone -Continue Lasix BID -Metolazone X1 Severe malnutrition -Give IV Albumin PRN Anemia in chronic illness -Transfuse PRBC as needed Liver cirrhosis -Continue spironolactone Case reviewed with Dr. Pineda
[2021-03-27] MEDS ORDERED: METOLAZONE 5 MG TABLET PO SCH (16:00)
[2021-03-27] MEDS: METOPROLOL TAR 25 MG TAB PO SCH (17:13)
[2021-03-27] MEDS ORDERED: METOPROLOL TAR 25 MG TAB PO SCH (18:00)
[2021-03-27 20:10] LABS: Hematocrit 28.9 % (36.0-45.0)
[2021-03-28] MEDS: HYDROCODONE/APAP 7.5/325 MG TAB PO PRN ×2 (00:35→06:35)
[2021-03-28] MEDS: MORPHINE 2 MG/ML SYR IV PRN (04:36)
[2021-03-28] MEDS: METOPROLOL TAR 25 MG TAB PO SCH (06:07)
--- NOTE | 2021-03-28 06:32 | P.DS ---
Admission Date: 03/23/21 Discharge Date: 03/28/21 Primary Care Provider: none Disposition: ROUTINE DISCHARGE Discharge Condition: GOOD Reason for Admission: Altered mental status Consultations: Nephrology-Dr. Saldivar Procedures: COVID: Negative CT head: COMPARISON: Head Brain Wo Cont dated 12/07/2020; Head Brain Wo Cont dated 11/28 TECHNIQUE: All CT scans are performed using dose optimization technique as appropriate and may include automated exposure control or mA/KV adjustment according to patient size. FINDINGS: No intracranial hemorrhage, hydrocephalus or extra-axial fluid collection.No areas of brain edema or evidence of midline shift. The paranasal sinuses and mastoids are clear. The calvarium is intact. Edematous scalp soft tissues are present. IMPRESSION: No acute intracranial abnormality. CT scan: COMPARISON: Abdomen Pelvis W Contrast dated 11/22/2020; Paracentesis Proc Guidance dated 02/18/2021; Renal Ultrasound-Complete dated 02/15/2021 TECHNIQUE: CT imaging of the abdomen and pelvis was performed without contrast. Solid organ, bowel and vascular assessment is limited due to lack of IV and oral contrast. All CT scans are performed using dose optimization technique as appropriate and may include automated exposure control or mA/KV adjustment according to patient size. FINDINGS: Small bilateral pleural effusions with atelectasis in both lung bases. Advanced liver cirrhosis. Cholecystectomy clips. Small moderate hiatal hernia. The spleen, adrenal glands, kidneys and pancreas are within normal limits. Significant ascites is present. No bowel obstruction is evident. No free air seen. Prominent anasarca pattern. Lumbar degenerative changes are present. IMPRESSION: Significant anasarca, ascites and bilateral pleural effusions. Advanced liver cirrhosis. A limited non-contrast examination was performed as detailed. Radiology assisted Paracentesis: IMPRESSION: Ultrasound-guided paracentesis was performed. Approximately 10 mL of ascites retained for laboratory studies. Approximately 2.5 liters of ascites removed as requested. Paracentesis Pathology: DIAGNOSIS Ascitic fluid, paracentesis: - Negative for malignant cells - Reactive mesothelial cells, macrophages and mixed inflammatory cells present EGD: Impression: Portal hypertensive gastropathy in the body of the stomach Mild gastritis in the antrum status post biopsies No esophageal varices identified. Recommendations: Acid suppression therapy. EGD Pathology: DIAGNOSIS Stomach, biopsy: - Gastric antrum type mucosa with dilated vessels, predominantly capillaries in lamina propria, compatible with portal hypertensive gastropathy - Focal chronic inactive gastritis - No intestinal metaplasia identified. - No Helicobacter pylori organisms identified Medical Problem List: Altered mental status secondary to hepatic encephalopathy related to advanced alcoholic cirrhosis of the liver Ascites status post radiology assisted paracentesis with removal of 2.5 liters ascites GERD status post EGD showing portal hypertensive gastropathy with mild gastritis and no evidence of esophageal varices Acute renal failure secondary to dehydration Elevated liver function, hyperbilirubinemia, hyperammonemia secondary to alcoholic cirrhosis of liver Hypoglycemia related to above Anemia of chronic disease Methamphetamine abuse Hypertension Chronic thrombocytopenia secondary to alcoholic cirrhosis Medical noncompliance Brief History of Present Illness: 50-year-old female with history of advanced alcoholic cirrhosis of the liver, GERD, anemia of chronic disease, history of drug abuse and medical noncompliance presents emergency department for altered mental status. Most of the information came from the ER provider. Mid-level provider did speak to significant other. Patient had been doing well and taking her medication for cirrhosis of the liver. Then patient had altered mental status. Some agitation noted. She was brought in to the ER for further evaluation. Lab abnormal for elevated ammonia level. Renal dysfunction noted. GFR 35. Total bilirubin elevated. CT scan showed bilateral pleural effusion, anasarca noted. Patient given lactulose enema in the emergency room. Patient also required medication for agitation. Patient with restraints to prevent harm. Patient admitted for further evaluation and treatment. Patient with multiple prior admissions for recurrent encephalopathy likely from noncompliance. Hospital Course: Patient presented with altered mental status secondary to hepatic encephalopathy. This is related to her advanced alcoholic cirrhosis of the liver. Patient required hospitalization. Acute renal failure with electrolyte abnormalities were noted due to dehydration. The patient received IV fluids with treatment for hepatic encephalopathy. Her condition improved. Patient had significant ascites as well. Radiology assisted paracentesis was done. Removal of 2.5 L of fluid removed. Patient was also seen by GI. GI recommended EGD which was performed. It showed portal hypertensive gastropathy with mild gastritis. No evidence of esophageal varices was noted. During the course of her stay patient also required transfusion of blood. Hemoglobin now stable. Patient back to her baseline mentation. Patient currently stable for discharge. At discharge the patient will continue with lactulose (20 g/30 mL solution) 45 mL 3 times a day and Xifaxan 550 mg 1 pill twice daily. Compliance and education on both medications will be provided. The importance of taking this medication was addressed in detail to prevent further recurrent readmissions for hepatic encephalopathy. Patient is to start a new insurance next week. Hopefully she will be able to get her Xifaxan to prevent recurrent admissions for hepatic encephalopathy. Patient will also continue with 1500 cc/day fluid restriction and low-salt diet. Recommend to monitor her weight daily. If her weight increases by more than 5 pounds she is to contact her PCP for further recommendation. At discharge she will continue with Lasix 40 mg 1 pill twice daily and Aldactone 25 mg 1 pill twice daily for her fluid retention and ascites. Patient may need further radiology assisted paracentesis in the future. This can be done with the help of her PCP or GI specialist. Recommend follow-up with her PCP in 1 week to establish care and further monitor her condition. Recommend follow-up with GI to further assist as well. Patient with GERD status post EGD showing portal hypertensive gastropathy with mild gastritis. No evidence of esophageal varices noted. At discharge patient will continue with Protonix 40 mg 1 pill twice daily. Patient with anemia of chronic disease. During the course of her stay patient received transfusion of blood. Overall stable. Patient will continue with multivitamin daily, folic acid 1 mg daily and thiamine 100 mg daily. Recommend to recheck labCBC in 1 to 2 weeks to monitor her progress. Patient with hypertension. Blood pressure now better controlled. Patient takes Norvasc. Metformin was added for better control. At discharge she will continue with Norvasc 5 mg daily and metoprolol 25 mg 1 pill twice daily. Recommend to maintain blood pressure less than 130/80. Further adjustment can be done by her PCP. Patient with methamphetamine abuse. Patient was again positive for amphetamines. Education on cessation addressed in detail. Risk of continued use was addressed in detail. Unsure if patient plans to quit. Patient also aware not to partake with alcohol especially in light of her alcohol disease. This will need to be enforced as an outpatient. Patient with chronic thrombocytopenia related to alcoholic cirrhosis. Overall stable. This can be monitored as an outpatient. Patient with history of noncompliance. Recommend to establish care locally. Will help to make arrangements for establishment of a PCP in the area. Vital Signs/Physical Exam: Temp Pulse Resp BP Pulse Ox 98.8 F 95 H 16 139/73 95 03/28/21 04:00 03/28/21 04:00 03/28/21 04:00 03/28/21 04:00 03/28/21 04:00 General: Alert, In no apparent distress, Oriented x3, Cooperative HEENT: Atraumatic Neck: Supple Respiratory: Clear to auscultation bilaterally, Normal air movement Cardiovascular: Normal pulses, Regular rate/rhythm Gastrointestinal: Normal bowel sounds, Ascites (No significant ascites noted. Status post paracentesis.) Musculoskeletal: No tenderness, No warmth Integumentary: No tenderness/swelling (Edema to the lower extremities overall stable.) Neurological: Normal speech, Normal strength at 5/5 x4 extr, Normal tone, Normal affect Laboratory Data at Discharge: WBC 4.40 K/uL (4.3-10.9) D 03/27/21 05:11 Hgb 9.0 g/dL (12.0-15.0) L 03/27/21 19:50 Hgb 9.5 g/dL (12.0-15.0) L 03/27/21 19:50 Hct 28.9 % (36.0-45.0) L D 03/27/21 19:50 Plt Count 50 K/uL (152-406) L 03/27/21 05:11 PT 17.7 SECONDS (9.5-12.5) H 03/26/21 17:00 INR 1.53 03/26/21 17:00 APTT 32.9 SECONDS (24.3-36.9) 03/26/21 17:00 Sodium 145 mmol/L (136-145) 03/27/21 05:11 Potassium 3.6 mmol/L (3.5-5.1) 03/27/21 05:11 BUN 25 mg/dL (7-18) H 03/27/21 05:11 Creatinine 1.12 mg/dL (0.55-1.3) 03/27/21 05:11 Glucose 99 mg/dL (74-106) 03/27/21 05:11 Uric Acid 14.4 mg/dL (2.6-6.0) H 03/26/21 05:05 Phosphorus 3.3 mg/dL (2.5-4.9) 03/26/21 05:05 Magnesium 1.6 mg/dL (1.8-2.4) L 03/27/21 05:11 Total Bilirubin 2.9 mg/dL (0.2-1.0) H 03/26/21 05:05 AST 67 U/L (15-37) H 03/26/21 05:05 ALT 27 U/L (12-78) 03/26/21 05:05 Alkaline Phosphatase 68 U/L (45-117) 03/26/21 05:05 Home Medications: Amlodipine [Norvasc*] 5 mg PO DAILY #30 tab 02/20/21 Furosemide [Lasix*] 40 mg PO BID #60 tab 02/20/21 Folic Acid 1 mg PO DAILY #90 tablet 03/28/21 Lactulose [Cephulac*] 45 ml PO TID #4000 ml 03/28/21 Metoprolol Tartrate [Lopressor*] 25 mg PO BID 6AM 6PM #60 tab 03/28/21 Multivit with Iron,Minerals [Complete Senior] 1 each PO DAILY #90 tablet 03/28/21 Pantoprazole [Protonix Tab*] 40 mg PO Q12H #60 tab 03/28/21 Rifaximin [Xifaxan] 550 mg PO BID #60 03/28/21 Spironolactone [Aldactone*] 25 mg PO BID #60 tab 03/28/21 Thiamine HCl 100 mg PO DAILY #90 tablet 03/28/21 New Medications: Spironolactone [Aldactone*] 25 mg PO BID #60 tab Lactulose [Cephulac*] 45 ml PO TID #4000 ml Multivit with Iron,Minerals [Complete Senior] 1 each PO DAILY #90 tablet Folic Acid 1 mg PO DAILY #90 tablet Metoprolol Tartrate [Lopressor*] 25 mg PO BID 6AM 6PM #60 tab Pantoprazole [Protonix Tab*] 40 mg PO Q12H #60 tab Thiamine HCl 100 mg PO DAILY #90 tablet Rifaximin [Xifaxan] 550 mg PO BID #60 Physician Discharge Instructions: Patient presented with altered mental status secondary to hepatic encephalopathy. This is related to her advanced alcoholic cirrhosis of the liver. Patient required hospitalization. Acute renal failure with electrolyte abnormalities were noted due to dehydration. The patient received IV fluids with treatment for hepatic encephalopathy. Her condition improved. Patient had significant ascites as well. Radiology assisted paracentesis was done. Removal of 2.5 L of fluid removed. Patient was also seen by GI. GI recommended EGD which was performed. It showed portal hypertensive gastropathy with mild gastritis. No evidence of esophageal varices was noted. During the course of her stay patient also required transfusion of blood. Hemoglobin now stable. Patient back to her baseline mentation. Patient currently stable for discharge. At discharge the patient will continue with lactulose (20 g/30 mL solution) 45 mL 3 times a day and Xifaxan 550 mg 1 pill twice daily. Compliance and education on both medications will be provided. The importance of taking this medication was addressed in detail to prevent further recurrent readmissions for hepatic encephalopathy. Patient is to start a new insurance next week. Hopefully she will be able to get her Xifaxan to prevent recurrent admissions for hepatic encephalopathy. Patient will also continue with 1500 cc/day fluid restriction and low-salt diet. Recommend to monitor her weight daily. If her weight increases by more than 5 pounds she is to contact her PCP for further recommendation. At discharge she will continue with Lasix 40 mg 1 pill twice daily and Aldactone 25 mg 1 pill twice daily for her fluid retention and ascite s. Patient may need further radiology assisted paracentesis in the future. This can be done with the help of her PCP or GI specialist. Recommend follow-up with her PCP in 1 week to establish care and further monitor her condition. Recommend follow-up with GI to further assist as well. Patient with GERD status post EGD showing portal hypertensive gastropathy with mild gastritis. No evidence of esophageal varices noted. At discharge patient will continue with Protonix 40 mg 1 pill twice daily. Patient with anemia of chronic disease. During the course of her stay patient received transfusion of blood. Overall stable. Patient will continue with multivitamin daily, folic acid 1 mg daily and thiamine 100 mg daily. Recommend to recheck labCBC in 1 to 2 weeks to monitor her progress. Patient with hypertension. Blood pressure now better controlled. Patient takes Norvasc. Metformin was added for better control. At discharge she will continue with Norvasc 5 mg daily and metoprolol 25 mg 1 pill twice daily. Recommend to maintain blood pressure less than 130/80. Further adjustment can be done by her PCP. Patient with methamphetamine abuse. Patient was again positive for amphetamines. Education on cessation addressed in detail. Risk of continued use was addressed in detail. Unsure if patient plans to quit. Patient also aware not to partake with alcohol especially in light of her alcohol disease. This will need to be enforced as an outpatient. Patient with chronic thrombocytopenia related to alcoholic cirrhosis. Overall stable. This can be monitored as an outpatient. Patient with history of noncompliance. Recommend to establish care locally. Will help to make arrangements for establishment of a PCP in the area. Diet: AHA Activity: Fall precautions Followup: Unknown,U [Primary Care Provider] - Time spent managing pt's care (in minutes): 55
[2021-03-28 06:33] LABS: Absolute Lymphocytes (CBC) 1.3 K/uL (0.7-4.9); Basophils % 0.5 % (0-1.3); Hematocrit 26.3 % (36.0-45.0); RBC Red Blood Cell Count 3.03 M/uL (3.86-4.86)
[2021-03-28 06:36] LABS: Magnesium 1.5 mg/dL (1.8-2.4); Potassium 3.5 mmol/L (3.5-5.1)
[2021-03-28] MEDS: HEPARIN 5000 UNIT/ML 1 ML VIAL SQ SCH (07:26)
[2021-03-28 08:33] VITALS: O2SAT 93
[2021-03-28] MEDS: LACTULOSE 20 GM/30 ML UCUP PO SCH ×2 (08:56→13:15)
[2021-03-28] MEDS: FUROSEMIDE 40 MG TABLET PO SCH (08:56)
[2021-03-28] MEDS: AMLODIPINE 5 MG TAB PO SCH (08:57)
[2021-03-28] MEDS: PANTOPRAZOLE 40 MG INJ IVP SCH (08:57)
[2021-03-28] MEDS: SPIRONOLACTONE 25 MG TABLET PO SCH (08:58)
[2021-03-28] MEDS: Rifaximin 550 MG Tab PO SCH (08:58)
[2021-03-28] MEDS: THIAMINE 200 MG/2 ML INJ IVP SCH (08:59)
[2021-03-28] MEDS: FOLIC ACID 1 MG in NA CHLORIDE 0.9% 50 ML IV SCH (10:21)
[2021-03-28 16:59] VITALS: BP 139/77; TEMP 98.9
== END 2021-03-28 17:56 | disposition home or self-care (01) | DRG 432 ==
LOC: ER 09:59 → ERHOLD 14:43 → 2ND 03-27 14:19
PROVIDERS: ADMIT Family Medicine; ATTEND Family Medicine
PROC: 02HV33Z Insertion of Infusion Device into Superior Vena Cava, Percutaneous Approach (ICD-10-PCS; 2021-03-24)
PROC: 0W9G3ZZ Drainage of Peritoneal Cavity, Percutaneous Approach (ICD-10-PCS; 2021-03-25)
PROC: 0DB68ZX Excision of Stomach, Via Natural or Artificial Opening Endoscopic, Diagnostic (ICD-10-PCS; 2021-03-25)
PROC: 30233L1 Transfusion of Nonautologous Fresh Plasma into Peripheral Vein, Percutaneous Approach (ICD-10-PCS; principal; 2021-03-26)
PROC: 30233N1 Transfusion of Nonautologous Red Blood Cells into Peripheral Vein, Percutaneous Approach (ICD-10-PCS; 2021-03-26)
DX: K70.40 Alcoholic hepatic failure without coma (principal); E43 Unspecified severe protein-calorie malnutrition; K76.6 Portal hypertension; E72.20 Disorder of urea cycle metabolism, unspecified; I13.0 Hypertensive heart and chronic kidney disease with heart failure and stage 1 through stage 4 chronic kidney disease, or unspecified chronic kidney disease; I50.32 Chronic diastolic (congestive) heart failure; N17.9 Acute kidney failure, unspecified; K21.9 Gastro-esophageal reflux disease without esophagitis; K31.89 Other diseases of stomach and duodenum; K29.70 Gastritis, unspecified, without bleeding; K70.31 Alcoholic cirrhosis of liver with ascites; E86.0 Dehydration; N18.30 Chronic kidney disease, stage 3 unspecified; E80.6 Other disorders of bilirubin metabolism; E16.2 Hypoglycemia, unspecified; D64.9 Anemia, unspecified; F15.10 Other stimulant abuse, uncomplicated; D69.6 Thrombocytopenia, unspecified; E87.6 Hypokalemia; Z68.36 Body mass index [BMI] 36.0-36.9, adult; Z78.1 Physical restraint status; Z91.19 Patient's noncompliance with other medical treatment and regimen
CPT/HCPCS: 36415; 36430; 36569; 49083; 51702; 70450; 71045; 74176; 80048; 80053; 80076; 80307; 81003; 81015; 82140; 82271; 82435; 82570; 82947; 83605; 83735; 83930; 83935; 83986; 84100; 84132; 84145; 84300; 84550; 85014; 85018; 85025; 85610; 85730; 86850; 86900; 86901; 87040; 87070; 87086; 87088; 88108; 88305; 88312; 93005; 96361; 96374; 97116; 97162; 99285; C9113; J0696; J1644; J1940; J2270; J2550; J2704; J3010; J3411; J3475; J3480; J7030; J7042; J7050; J7120; P9016; P9047; P9059; U0003

== ENCOUNTER 2021-04-16 04:56 | Inpatient (IN) | payer SELFPAY ==
--- OUTSIDE RECORDS SUMMARY | 2021-04-16 05:07 | XMS REPORT | Continuity of Care Document ---
:1970 Author Organization [facility] t Address [address] [place] [address] Care Team Providers Name Role Phone ARIANA ARIZMENDI Attending Clinician Unavailable Ariana Arizmendi MD Attending Clinician Daniel Rivera MD Attending Clinician Hui Singer MD Attending Clinician Minnie Strong MD Attending Clinician Bhavesh Becerril MD Attending Clinician MINNIE STRONG Attending Clinician Unavailable Alex Clarke NP Attending Clinician Doctor Unassigned, Name Attending Clinician Unavailable Guillermina Bernstein Attending Clinician Unavailable Carl MAGANA, S Attending Clinician Carito Nam MD Attending Clinician Ramesh PATEL Attending Clinician Gin Anthony MA Attending Clinician Unavailable Octavio Vivar MD Attending Clinician LEO Attending Clinician Unavailable Leo JEFF Attending Clinician Ni Moon MD Attending Clinician Merchant JEFF Attending Clinician Shahbaz Rodriguez MD Attending Clinician Sonia Toney MD Attending Clinician Clem Fallon RN Attending Clinician Gera JEFF, Norman Attending Clinician Kevin Newman MD Attending Clinician Olivia JEFF Attending Clinician Shane Attending Clinician Andrea JEFF Attending Clinician Lavon JEFF Attending Clinician DANIEL RIVERA Admitting Clinician Unavailable Ramesh PATEL Admitting Clinician Admitting Clinician Unavailable Dalila JEFF Admitting Clinician Andrea JEFF Admitting Clinician Payers Payer Name Policy Type Policy Number Effective Date Expiration Date S ource Problems Condition Condition Condition Status Onset Resolution Last Treating Co mments Source Name Details Category Date Date Treatment Clinician Date Altered Altered Disease Active [facility] - status status 00:00: Medical [place] Hepatic Hepatic Disease Active [facility] encephalop encephalop 6- Mita kes - athy athy 00:00: Medical 00 [place] Black Black Disease Active [facility] stools stools 10-24 [facility] - 00:00: Medical 00 [place] Cirrhosis Cirrhosis Disease Active [facility] 1- [facility] - 00:00: Medical 00 [place] Volume Volume Disease Active [facility] overload overload - [facility] - 00:00: Medical 00 [place] Allergies, Adverse Reactions, Alerts Allergy Allergy Status Severity Reaction(s) Onset Inactive Treating Comm ents Source Name Type Date Date Clinician ondanset DA Active [facility]illie 3-23 [place] 00:00: [facility] 00 are [place] Ondanset Drug Active Rash JACKSON Hernandez Hcl Allergy 10-22 [facility] - (Pf) 00:00: Medical [address] [place] [address] Social History Social Habit Start Date Stop Date Quantity Comments Source Sex Assigned At [facility] Exposure to Not sure [facility] - SARS-CoV-2 [facility] (event) Tobacco use and 2021-04-06 2021-04-06 Never used [facility] jeanne - exposure 00:00:00 00:00:00 [facility] Alcohol intake 2021-04-06 2021-04-06 Ex-drinker [facility] es - 00:00:00 00:00:00 (finding) [facility] Alcohol Comment 2021-03-12 2021-03-12 stopped [facility] [address] [facility] - 00:[facility]:00 00:00:00 [facility] Smoking Status Start Date Stop Date Source Never smoker [facility] edical [place] Medications Ordered Filled Start Stop Current Ordering Indication Dosage Frequency Signature Comments Components Source Medication Medication Date Date Medication? Clinician (SIG) Name Name spironolact 2021- No 100mg QD Take [address] [facility] 10-25 tablet [facility] - (ALDACTONE) 00:00: 23:59 (100 mg Me dical 100 MG 00 :00 total) by Center tablet mouth daily. lactulose 2020- No 20g Q.[id number] Take [address] [address] (CHRONULAC) 10-24 [id number] by mouth 3 [facility] - 10 gram/15 [...] (two) times daily. lactulose 2021- No 20g Q.31990870 Take [address] (CHRONULAC) 10-24 [id number] mLs (20 g [facility] - 10 gram/15 00:00: 23:59 3D total) by edical mL (15 mL) 00 :00 mouth 3 Center solution (three) times daily. potassium No 20meq QD Take [address] chloride SA 10-24 tablet (20 L uk - (K-DUR,KLOR 00:00: 23:59 mEq total) Medical -CON) 20 00 :00 by mouth Center MEQ tablet daily. furosemide 2020- No Take [address] [facility] (LASIX) 40 10-24 04-15 tablet (40 Mita kes - MG tablet 00:00: 23:59 mg total) Me dical 00 :00 by mouth 2 Center (two) times daily for 7 days, THEN 1 tablet (40 mg total) daily for 90 days. pantoprazol 40mg Q.5D Take [address] e 10-24 02-07 tablet (40 [facility] - (PROTONIX) 00:00: 23:59 mg total) M edical 40 MG 00 :00 by mouth 2 Center tablet (two) times daily for 30 days. Vital Signs Vital Name Observation Time Observation Value Comments Source Systolic blood 2021-04-10 14:55:00 150 mm[Hg] [facility] Diastolic blood 2021-04-10 14:55:00 88 mm[Hg] [facility] Heart rate 2021-04-10 14:55:00 104 /min [facility] Body temperature 2021-04-10 14:55:00 36.06 Tamar [facility] Respiratory rate 2021-04-10 14:55:00 17 /min [facility] Oxygen saturation in 2021-04-10 14:55:00 98 /min [facility] - Arterial blood by Medical Ce nter Pulse oximetry Body weight 2021-04-10 06:00:00 79.153 kg [facility] BMI 2021-04-10 06:00:00 29.95 kg/m2 [facility] Body height 2021-04-06 19:03:00 162.6 cm [facility] Procedures Procedure Date / Time Performing Clinician Source Performed POTASSIUM 2021-04-10 06:13:00 Vivian Tam [facility] COMPREHENSIVE METABOLIC 2021-04-10 06:13:[address] [facility] PROTHROMBIN TIME/INR 2021-04-10 06:13:00 Radha Singer [facility] CBC W/PLT COUNT & AUTO 2021-04-10 06:12:00 Enmanuel Radhakait Ames [facility] MAGNESIUM 2021-04-09 05:49:00 Allencaridad [facility] CBC W/PLT COUNT & AUTO 2021-04-09 05:49:00 Selene [facility] HEPATIC FUNCTION PANEL 2021-04-09 05:49:00 [facility]INR 2021-04-09 05:49:00 [facility] CALCIUM, IONIZED 2021-04-09 05:49:00 [facility]ABOLIC 2021-04-09 05:49:00 [facility]OS[facility] 2021-04-09 05:49:00 [facility] PARACENTESIS 2021-04-08 17:10:00 [facility] BODY FL[facility] + GRAM 2021-04-08 17:04:00 Victorino Yuli [facility] BODY FLUID CELL COUNT WITH 2021-04-08 17:03:00 [facility]LO[facility] 2021-04-08 14:02:00 Johnny Oliver [facility] MISCELLANEOUS LAB ORDER 2021-04-08 04:33:[address] [facility] BASIC METABOLIC PANEL (7) 2021-04-08 04:33:00 Jordi Morton ph [facility] MAGNESIUM 2021-04-08 04:33:00 Krish Morton [facility] CBC W/PLT COUNT & AUTO 2021-04-08 04:33:00 Selene [facility] HEPATIC FUNCTION PANEL 2021-04-08 04:33:00 Yuli Rivera [facility] PROTHROMBIN TIME/INR 2021-04-08 04:33:00 Yuli Rivera [facility] ALPHA FETOPROTEIN (AFP), 2021-04-08 04:33:00 Johnny Oliver [facility] - TUMOR MARKER [facility] HEPATITIS B SURFACE 2021-04-08 04:33:00 Johnny Oliver [facility] - ANTIBODY [facility] RAPID DRUG SCREEN, URINE 2021-04-07 11:34:00 Leroy-Carbone Dilcia juan [facility] URINALYSIS W/ REFLEX URINE 2021-04-07 11:34:00 Yuli Rivera [facility] CT BRAIN WITHOUT IV 2021-04-07 08:07:00 Yuli Rivera [facility] BLOOD CULTURE 2021-04-07 04:32:00 Yuli Rivera [facility] BASIC METABOLIC PANEL (7) 2021-04-07 04:28:00 Jordi Morton ph [facility] MAGNESIUM 2021-04-07 04:28:00 Selene [facility] CBC W/PLT COUNT & AUTO 2021-04-07 04:28:00 Selene Krish [facility] HEPATIC FUNCTION PANEL 2021-04-07 04:28:00 Yuli Rivera [facility] PROTHROMBIN TIME/INR 2021-04-07 04:28:00 Yuli Rivera [facility] SARS-COV2/INFLUENZA/RSV 2021-04-07 02:11:00 Haroldo Prakash C HI [facility] RT-PCR [facility] BLOOD CULTURE 2021-04-07 02:08:00 Yuli Rivera [facility] BLOOD CULTURE 2021-04-07 02:08:00 Yuli Rivera [facility] - IDENTIFICATION [facility] ter CT BRAIN WITHOUT IV 2021-04-06 23:35:00 Juan Smith I [facility] CONTRAST [facility] AMMONIA 2021-04-06 21:11:00 Juan Smith [facility] MAGNESIUM 2021-04-06 21:10:00 Juan Smith [facility] PHOSPHORUS 2021-04-06 21:10:00 Juan Smith [facility] COMPREHENSIVE METABOLIC 2021-04-06 21:10:00 Shana Smith [facility] HIGH SENSITIVITY TROPONIN 2021-04-06 21:10:00 Angela Smith [facility] ETHANOL 2021-04-06 21:09:00 Juan Smith [facility] CBC W/PLT COUNT & AUTO 2021-04-06 20:05:00 Juan Smith [facility] PT/APTT 2021-04-06 20:05:00 TataCarboneJuan moran [facility] CBC W/PLT COUNT & AUTO 2021-03-12 14:33:00 Miriam Strong [facility] COMPREHENSIVE METABOLIC 2021-03-12 14:33:00 Ligia [facility] PT/APTT 2021-03-12 14:33:00 Ligia [facility] LIPASE 2021-03-12 14:33:00 Ligia [facility] ECG 12-LEAD 2021-03-12 14:25:26 Ligia [facility] REPORT OF PROCEDURE - 2021-03-12 00:00:00 Provider [facility] SCAN [facility] US ABDOMEN LIMITED 2020-10-24 14:23:00 Merchant [facility] COMPREHENSIVE METABOLIC 2020-10-24 02:19:00 Sanjay [facility] CBC W/PLT COUNT & AUTO 2020-10-24 02:19:00 Merchant [facility] PROTHROMBIN TIME/INR 2020-10-24 02:19:00 Merchant [facility] REPORT OF PROCEDURE - 2020-10-23 13:12:14 Ruth Toney [facility] UPPER ENDOSCOPY 2020-10-23 09:39:00 Ruth Toney [facility] MAGNESIUM 2020-10-23 05:15:00 Merchant [facility] METABOLIC 2020-10-23 05:15:00 Sanjay [facility] HEMOGLOBIN AND HEMATOCRIT 2020-10-23 05:14:00 Silvio Riggs [facility] CBC W/PLT COUNT & AUTO 2020-10-23 05:14:00 Merchant [facility] PROTHROMBIN TIME/INR 2020-10-23 05:14:00 Sanjay [facility] HEPATITIS C PCR, 2020-10-23 05:14:00 Sanjay [facility] HEPATITIS C GENOTYPE 2020-10-23 05:14:00 Grace, [facility] HEPATITIS PANEL, ACUTE 2020-10-23 05:14:00 Sanjay [facility] VSCNL-4-ZBVYCNZEVSL\\, 2020-10-23 05:14:00 Sanjay [facility] SERUM [facility] ALPHA FETOPROTEIN (AFP), 2020-10-23 05:14:00 Sanjay [facility] TUMOR MARKER [facility] CERULOPLASMIN 2020-10-23 05:14:00 Sanjay, [facility] FERRITIN 2020-10-23 05:14:00 Sanjay [facility] IRON, TIBC, % SAT. 2020-10-23 05:14:00 Sanjay [facility]WITHOUT FERRITIN[facility] B12 2020-10-23 05:14:00 Sanjay [facility] FOLATE, SERUM 2020-10-23 05:14:00 Sanjay [facility] RETICULOCYTE COUNT 2020-10-23 05:14:00 Sanjay [facility] ACTIN (SMOOTH MUSCLE) 2020-10-23 05:14:00 Sanjay [facility] - ANTIBODY, IGG [facility] ANTI-NUCLEAR ANTIBODY 2020-10-23 05:14:00 Sanjay [facility] (LUCAS) [facility] ANTI-MITOCHONDRIAL AB, 2020-10-23 05:14:00 Sanjay [facility] - REFLEX TO TITER [facility] HEPATITIS B CORE ANTIBODY, 2020-10-23 05:14:00 Eusebio Grace C HI [facility] TOTAL [facility] HEPATITIS A ANTIBODY, IGG 2020-10-23 05:14:00 Eli Graceha [facility] MITOCHONDRIAL AB SCREEN 2020-10-23 05:14:00 Sanjay [facility] MITOCHONDRIAL AB TITER 2020-10-23 05:14:00 Sanjay [facility] US ABDOMINAL WITH DOPPLER 2020-10-22 21:15:00 Silvio Riggs [facility], I [facility] URINALYSIS W/ REFLEX URINE 2020-10-22 17:23:00 Eusebio Grace [facility] CULTURE [facility] SARS-COV2/RT-PCR ([facility] & 2020-10-22 15:22:00 Silvio Riggs [facility] - REF LABS) [facility] BLOOD CULTURE 2020-10-22 15:07:00 [facility] W/PLT COUNT & AUTO 2020-10-22 14:07:00 Sarai [facility] BASIC METABOLIC PANEL (7) 2020-10-22 14:07:00 Mandie Moon [facility] HEPATIC FUNCTION PANEL 2020-10-22 14:07[facility] [facility] TROPONIN I 2020-10-22 14:07:00 Sarai [facility] ECG 12-LEAD 2020-10-22 14:01:12 Unknown, Hl7 Doctor [facility] XR CHEST 1 VIEW 2020-10-22 13:46:00 Silvio Riggs [facility] PORTABLE/BEDSIDE [facility] REPORT OF PROCEDURE - 2020-10-22 00:00:00 Provider, Cameron [facility] ENDOSCOPY SCAN Scanning [facility] Plan of Care Planned Activity Planned Date Details Comments Source Future Scheduled 2021-06-[address] [facility] - Test 00:00:00 (Season Ended) [code Medical Center = INFLUENZA VACCINE (Season Ended)] Future Scheduled 2020-10-[address] [facility] - Test 00:00:00 (12+) [code = [facility] DEPRESSION SCREENING (12+)] Future Scheduled 2018 SHINGLES VACCINES ([address] [facility] - Test 00:00:00 of 2) [code = [facility] SHINGLES VACCINES (1 of 2)] Future Scheduled [address] [facility] - Test 00:00:00 (procedure) [code = [facility] 26603770] Future Scheduled [address] [facility] - Test 00:00:00 [facility] cervix (procedure) [code = 905993903] Future Scheduled 1987 DTAP/TDAP/TD VACCINES [facility] - Test 00:00:00 (1 - Tdap) [code = Medical C enter DTAP/TDAP/TD VACCINES (1 - Tdap)] Future Scheduled 1980 COVID-19 VACCINE (1) [facility] - Test 00:00:00 [code = COVID-[address] VACCINE (1)] Future Scheduled [address] [facility] - Test 00:00:00 [facility] breast (procedure) [code = 227336608] Future Scheduled [address] [facility] - Test 00:00:00 [facility] colon (procedure) [code = 877053255] Encounters Start End Encounter Admission Attending Care Care Encounter Source Date/Time Date/Time Type Type Clinicians Facility Department ID 2021-03-02 2021-03-02 Emergency [facility] [id number] 13:50:00 18:58:00 Lucila Means [id number] [place] 4.2.7.2.686 [place] [id number] 2021-03-02 2021-03-02 Orders Doctor NARENDRA [id number] 00:00:00 00:00:00 Only Unassigned, STAR [id number] [place] [facility] [id number] [id number] 2021-01-18 2021-01-21 [facility] Marianne Henry [facility] [id number] 20:56:00 13:40:00 Encounter Balta Nam [id number] 0 [place] 4.2.7.2.686 [place] [id number] 2020-10-13 2020-10-13 Patient Diane Fallon [id number] 00:00:00 00:00:00 Outreach E Ankit [id number] [place] 4.2.7.2.686 [id number] 2020-10-01 2020-10-03 Hospital Leny Boss [facility] 1.2.840 .[id number] 14:36:00 10:48:00 Encounter Jordi Garcia [facility] 350.1.13 .10 Cristofer Baker [place] 4.2.7.2.686 [place] [id number] Hospital 109 ([facility]) 2020-09-29 2020-09-29 Patient Diane Fallon [id number] 00:00:00 00:00:00 Outreach Clem Pham [id number] [place] 4.2.7.2.686 [id number] 2020-09-25 2020-09-25 Transition Dar Lynn [id number] 00:00:00 00:00:00 of Care Valerie Pham [id number] [place] 4.2.7.2.686 [id number] 2020-09-22 2020-09-24 [facility] Balta Nam [facility] 1.2.840. [id number] 05:04:00 10:44:00 Encounter Alondra Mendez [id number] [place] 4.2.7.2.686 [place] [id number] Hospital 111 ([facility]) 2020-06-30 2020-06-30 [facility] [id number] 14:48:00 18:31:00 Hugo Means 350.1.13.10 [place] 4.2.7.2.686 [place] [id number] 2019-06-11 2019-06-11 Orders Doctor NARENDRA [id number] 00:00:00 00:00:00 Only Unassigned, STAR [id number] [place] [facility] 4.2.7.2.686 [id number] 2019-05-11 2019-05-11 Emergency Carl [facility] [id number] 10:42:22 12:29:00 Marianne Means [id number] [place] 4.2.7.2.686 [place] [id number] Results Test Description Test Time Test Comments Results Result Comments Source MISCELLANEOUS LAB ORDER 2021-04-14 09:48:00 Test Item Value Reference Range Interpretation Comme nts SCAN RESULT (test code = 6294989) See scanned reportphosphatydil [id number] 09:48:00Scan ResultQUEST NON- INTERFACED LABSee scanned reportCHI [facility] HospitalBlood Culture - Routine (Left Venipuncture)2021-04-13 16:00:00 Test Item Value Reference Range Interpretation Comments Result (test code = No growth in 5 days 6463-4) [facility] [id number] 16:00:00 Test Item Value Reference Range Interpretation Comments CULTURE (BEAKER) (test No growth in 5 days code = 1095) BLOOD [id number] 16:00:00 Test Item Value Reference Range Interpretation Comments CULTURE (BEAKER) (test No growth in 5 days code = 1095) BLOOD [id number] 07:00:00 Test Item Value Reference Range Interpretation Comments CULTURE (BEAKER) (test No growth in 5 days code = 1095) Body fluid culture + gram [id number] 13:14:00 Test Item Value Reference Range Interpretation Comments Result (test code = 6463-4) No growth Gram Stain Result (test No organisms seen code = 1123) [facility] + GRAM [id number] 13:14:00 Test Item Value Reference Range Interpretation Comments CULTURE (BEAKER) (test code No growth = 1095) GRAM STAIN RESULT (BEAKER) 1+ WBCs (test code = 1123) GRAM STAIN RESULT (BEAKER) No organisms seen (test code = 31066) BLOOD [id number] 06:42:00 Test Item Value Reference Range Interpretation Comments CULTURE A From Aerobic An d (BEAKER) (test Anaerobic Bot tles code = 1095) Coagulase negat khoi Staphylococcus GRAM STAIN From aerobic and RESULT (BEAKER) anaerobic (test code = bottles: gram 1123) positive cocci in clusters U/S, [id number] 13:23:00Labs to be ordered:->Body Fluid Culture (w/Gram Stain, C\\T\\S)Labs to be ordered:->Cell CountReason for exam:- >ALTERED MENTAL STATUS [facility] : 1970 Sex: FFINAL REPORT Ultrasound guided paracentesis Clinical History: Ascite s. Sedation: None. Hcc Coders: Sophia Noble PA-C Supervising Physician: Ivan Valdes MD Clothing Cutter: None. Estimated Blood Loss: < 1 mL. Specimen: 2500 mL of clear yellow fluid, samples sent to laboratory. Technique: Informed consent was obtained. The risks of pain, bleeding, infection, bowel perforation, injury to adjacent structures, and adverse medication reactions were discussed with the patient. After informed consent was obtained, the patient's abdomen was scanned. The right lower quadrant of the abdomen was selected for paracentesis. After the largest fluid pocket area was marked, and the anterior abdominal wall was evaluated with color Doppler to exclude presence of blood vessels traversing the area, the skin was prepped and draped in the usual sterile manner. After local anesthesia was achieved with lidocaine, a 5 Togolese one-step catheter was advanced into the peritoneal cavity under ultrasound guidance. After completion of drainage, the catheter was removed. There was no evidence of complication. Impression:Successful ultrasound guided paracentesis.Signed: Ivan Valdes Verified Date/Time: 04/10/2021 13:23:15 Reading Location: [address] Ultrasound Reading Room US [id number] 13:23:00Interface, External Ris In - 04/10/2021 1:25 PM CDTFINAL REPORT Ultrasound guided paracentesis Clinical History: Ascites. Sedation: None. Hcc Coders: Sophia Noble PA-C Supervising Physician: Ivan Valdes MD Clothing Cutter: None. Estimated Blood Loss: <1 mL. Specimen: 2500 mL of clear yellow fluid, samples sent to laboratory. Technique: Informed consent was obtained. The risks of pain, bleeding, infection, bowel perforation, injury to adjacent structures, and adverse medication reactions were discussed with the patient. After informed consent was obtained, the patient's abdomen was scanned. The right lower quadrant of the abdomen was selected for paracentesis. After the largest fluid pocket area was marked, and the anterior abdominal wall was evaluated with color Doppler to exclude presence of blood vessels traversing the area, the skin wasprepped and draped in the usual sterile manner. After local anesthesia was achieved with lidocaine,a 5 Togolese one-step catheter was advanced into the peritoneal cavity under ultrasound guidance. After completion of drainage, the catheter was removed. There was no evidence of complication. Impression:Successful ultrasound guided paracentesis. Signed: Ivan Valdes MDReport Verified Date/Time: 04/10/2021 13:23:15 Reading Location: [address] Ultrasound Reading [facility] 2021-04-10 07:16:00 Test Item Value Reference Range Interpretation Comments Protein, Total (test 4.4 See_Comment L [Autom ated code = 2885-2) message] The system which generated this result transmitted reference range : 6.0 - 8.3 gm/dL . The reference range was not used to interpr et this result as normal/abnormal . Albumin (test code = 1.9 g/dL 3.5-5 L 22268-9) Alkaline Phosphatase 87 U/L 40-150 (test code = 6768-6) Total Bilirubin (test 3.2 mg/dL 0.2-1.2 H code = 1975-2) Sodium (test code = 137 meq/L 601-449 1451-2) Potassium (test code 3.7 meq/L 3.5-5.1 = 2823-3) Chloride (test code = 105 meq/L 98-107 2075-0) CO2 (test code = 28 meq/L 22-29 8-9) BUN (test code = 6 mg/dL 7-21 L 3094-0) Creatinine (test code 0.65 mg/dL 0.57-1.25 = 2160-0) Glucose (test code = 107 mg/dL 70-105 H 2345-7) Calcium (test code = 7.7 mg/dL 8.4-10.2 L 55790-3) AST (test code = 68 U/L 5-34 H 1920-8) ALT (test code = 27 U/L 6-55 1742-6) EGFR (test code = 95 mL/min/1.73 [place] [address]-5) m NOT ACCURATE CREATININE CLEARANCE IN PREDICTING GLOMERULAR FILTRATION RATE . ESTIMATED GFR I S NOT APPLICABLE FOR DIALYSIS PATIENTS. MADDIE (test code = MADDIE) Customer Care Voice Consultant ID - DBSpecimen slightly icteric Lab Interpretation Abnormal (test code = 65010-6) [facility] Center[facility]assium2021-[facility] 07:16:00 Test Item Value Reference Range Interpretation Comments Potassium (test code = 2823-3) 3.7 meq/L 3.5-5.1 Lab Interpretation (test code = Normal 02904-8) [facility]2021-[facility]-25 07:16:00 Test Item Value Reference Range Interpretation Comments POTASSIUM (BEAKER) (test code = 3.7 meq/L 3.5-5.1 379) COMPREHENSIVE METABOLIC [id number] 07:16:00 Test Item Value Reference Range Interpretation Comments TOTAL PROTEIN 4.4 gm/dL 6.0-8.3 L (BEAKER) (test code = 770) ALBUMIN (BEAKER) 1.9 g/dL 3.5-5.0 L (test code = 1145) ALKALINE PHOSPHATASE 87 U/L 40-150 (BEAKER) (test code = 346) BILIRUBIN TOTAL 3.2 mg/dL 0.2-1.2 H (BEAKER) (test code = 377) SODIUM (BEAKER) (test 137 meq/L 136-145 code = 381) POTASSIUM (BEAKER) 3.7 meq/L 3.5-5.1 (test code = 379) CHLORIDE (BEAKER) 105 meq/L 98-107 (test code = 382) CO2 (BEAKER) (test 28 meq/L 22-29 code = 355) BLOOD UREA NITROGEN 6 mg/dL 7-21 L (BEAKER) (test code = 354) CREATININE (BEAKER) 0.65 mg/dL 0.57-1.25 (test code = 358) GLUCOSE RANDOM 107 mg/dL 70-105 H (BEAKER) (test code = 652) CALCIUM (BEAKER) 7.7 mg/dL 8.4-10.2 L (test code = 697) AST (SGOT) (BEAKER) 68 U/L 5-34 H (test code = 353) ALT (SGPT) (BEAKER) 27 U/L 6-55 (test code = 347) EGFR (BEAKER) (test 95 mL/min/1.73 ESTIMA JOSEPH GFR IS code = 1092) sq m NOT ACCURATE CREATININE CLEARANCE IN PREDICTING GLOMERULAR FILTRATION RATE . ESTIMATED GFR I S NOT APPLICABLE FOR DIALYSIS PATIEN TS. Customer Care Voice Consultant ID - DBSpecimen slightly ictericProthrombin time/[id number] 06:58:00 Test Item Value Reference Interpretation Comments Range Protime (test code = 21.0 See_Comment H [Autom ated 6682-2) message] The system which generated this result transmitted reference range : 11.9 - 14.2 seconds. The reference range was not used to interpret this result as normal/abnormal . INR (test code = 1.84 See_Comment [Automated 4741-6) message] The system which generated this result [...] valves. Lab Interpretation Abnormal (test code = 03349-4) [facility][id number] 06:58:00 Test Item Value Reference Range Interpretation Comments PROTIME (BEAKER) 21.0 seconds 11.9-14.2 H (test code = 759) INR (BEAKER) (test 1.84 See_Comment [Automat ed message] code = 370) The system [employer] generated this result transmitted ref erence range: <=5.90. The reference range was not used to int erpret this result as normal/abnormal . RECOMMENDED COUMADIN/WARFARIN INR THERAPY RANGESSTANDARD DOSE: 2.0 - 3.0 Includes: PROPHYLAXIS forvenous thrombosis, systemic embolization; TREATMENT for venous thrombosis and/or pulmonary embolus.HIGH RISK: Target INR is 2.5-3.5 for patients with mechanical heart valves.CBC with platelet count + automated diff 2021-04-10 06:48:00 Test Item Value Reference Range Interpretation Comments WBC (test code = 6690-2) 3.4 See_Comment L [A utomated message] The system [employer] generated this result transmitted ref erence range: 3.5 - 10 .5 K/L. The refe rence range was not u sed to interpret this result as normal/abnor mal. RBC (test code = 789-8) 2.80 See_Comment L [Au tomated message] The system [employer] generated this result transmitted ref erence range: 3.93 - 5 .22 M/L. The refe rence range was not u sed to interpret this result as normal/abnor mal. MCHC (test code = 786-4) 30.8 See_Comment L [A utomated message] The system [employer] generated this result transmitted ref erence range: 32.2 - 3 5.5 GM/DL. The refe rence range was not u sed to interpret this result as normal/abnor mal. Hematocrit (test code = 26.0 % 34.1-44.9 L 4544-3) MCV (test code = 787-2) 92.9 fL 79.4-94.8 MCH (test code = 785-6) 28.6 pg 25.6-32.2 RDW (test code = 788-0) 17.2 % 11.7-14.4 H Platelets (test code = 57 See_Comment L [Aut omated message] 737-3) The system [employer] generated this result transmitted ref erence range: 150 - 45 0 K/CU MM. The referen ce range was not u sed to interpret this result as normal/abnor mal. MPV (test code = 11.1 fL 9.4-12.3 67910-5) nRBC (test code = 413) 0 See_Comment [Aut omated message] The system [employer] generated this result transmitted ref erence range: 0 - 0 /1 00 WBC. The refere nce range was not u sed to interpret this result as normal/abnor mal. % Neutros (test code = 42 % 429) % Lymphs (test code = 38 % 430) % Monos (test code = 14 % 431) % Eos (test code = 432) 5 % % Baso (test code = 437) 1 % # Neutros (test code = 1.43 See_Comment L [Aut omated message] 670) The system [employer] generated this result transmitted ref erence range: 1.56 - 6 .13 K/L. The refe rence range was not u sed to interpret this result as normal/abnor mal. # Lymphs (test code = 1.30 See_Comment [Auto mated message] 414) The system [employer] generated this result transmitted ref erence range: 1.18 - 3 .74 K/L. The refe rence range was not u sed to interpret this result as normal/abnor mal. # Monos (test code = 0.46 See_Comment H [Autom ated message] 415) The system [employer] generated this result transmitted ref erence range: 0.24 - 0 .36 K/L. The refe rence range was not u sed to interpret this result as normal/abnor mal. # Eos (test code = 416) 0.16 See_Comment [Au tomated message] The system [employer] generated this result transmitted ref erence range: 0.04 - 0 .36 K/L. The refe rence range was not u sed to interpret this result as normal/abnor mal. # Baso (test code = 417) 0.03 See_Comment [A utomated message] The system [employer] generated this result transmitted ref erence range: 0.01 - 0 .08 K/L. The refe rence range was not u sed to interpret this result as normal/abnor mal. Immature 0 % 0-1 Granulocytes-Relative (test code = 2801) Lab Interpretation (test Abnormal code = 38987-7) [facility] W/PLT COUNT & AUTO [id number] 06:48:00 Test Item Value Reference Range Interpretation Comments WHITE BLOOD CELL COUNT (BEAKER) 3.4 K/ L 3.5-10.5 L (test code = 775) RED BLOOD CELL COUNT (BEAKER) 2.80 M/ L 3.93-5.22 L (test code = 761) HEMOGLOBIN (BEAKER) (test code = 8.0 GM/DL 11.2-15.7 L 410) HEMATOCRIT (BEAKER) (test code = 26.0 % 34.1-44.9 L 411) MEAN CORPUSCULAR VOLUME (BEAKER) 92.9 fL 79.4-94.8 (test code = 753) MEAN CORPUSCULAR HEMOGLOBIN 28.6 pg 25.6-32.2 (BEAKER) (test code = 751) MEAN CORPUSCULAR HEMOGLOBIN CONC 30.8 GM/DL 32.2-35.5 L (BEAKER) (test code = 752) RED CELL DISTRIBUTION WIDTH 17.2 % 11.7-14.4 H (BEAKER) (test code = 412) PLATELET COUNT (BEAKER) (test code 57 K/CU MM 150-450 L = 756) MEAN PLATELET VOLUME (BEAKER) 11.1 fL 9.4-12.3 (test code = 754) NUCLEATED RED BLOOD CELLS (BEAKER) 0 /100 WBC 0-0 (test code = 413) NEUTROPHILS RELATIVE PERCENT 42 % (BEAKER) (test code = 429) LYMPHOCYTES RELATIVE PERCENT 38 % (BEAKER) (test code = 430) MONOCYTES RELATIVE PERCENT 14 % (BEAKER) (test code = 431) EOSINOPHILS RELATIVE PERCENT 5 % (BEAKER) (test code = 432) BASOPHILS RELATIVE PERCENT 1 % (BEAKER) (test code = 437) NEUTROPHILS ABSOLUTE COUNT 1.43 K/ L 1.56-6.13 L (BEAKER) (test code = 670) LYMPHOCYTES ABSOLUTE COUNT 1.30 K/ L 1.18-3.74 (BEAKER) (test code = 414) MONOCYTES ABSOLUTE COUNT (BEAKER) 0.46 K/ L 0.24-0.36 H (test code = 415) EOSINOPHILS ABSOLUTE COUNT 0.16 K/ L 0.04-0.36 (BEAKER) (test code = 416) BASOPHILS ABSOLUTE COUNT (BEAKER) 0.03 K/ L 0.01-0.08 (test code = 417) IMMATURE GRANULOCYTES-RELATIVE 0 % 0-1 PERCENT (BEAKER) (test code = 2801) COMPREHENSIVE METABOLIC [id number] 10:33:00 Test Item Value Reference Range Interpretation Comments TOTAL PROTEIN 4.3 gm/dL 6.0-8.3 L (BEAKER) (test code = 770) ALBUMIN (BEAKER) 1.8 g/dL 3.5-5.0 L (test code = 1145) ALKALINE PHOSPHATASE 78 U/L 40-150 (BEAKER) (test code = 346) BILIRUBIN TOTAL 2.8 mg/dL 0.2-1.2 H (BEAKER) (test code = 377) SODIUM (BEAKER) 136 meq/L 136-145 Discordant S ODIUM (test code = 381) result com pared to previous result ; clinical correl ation required POTASSIUM (BEAKER) 2.9 meq/L 3.5-5.1 L (test code = 379) CHLORIDE (BEAKER) 104 meq/L 98-107 (test code = 382) CO2 (BEAKER) (test 24 meq/L 22-29 code = 355) BLOOD UREA NITROGEN 10 mg/dL 7-21 (BEAKER) (test code = 354) CREATININE (BEAKER) 0.63 mg/dL 0.57-1.25 (test code = 358) GLUCOSE RANDOM 154 mg/dL 70-105 H (BEAKER) (test code = 652) CALCIUM (BEAKER) 7.8 mg/dL 8.4-10.2 L (test code = 697) AST (SGOT) (BEAKER) 48 U/L 5-34 H (test code = 353) ALT (SGPT) (BEAKER) 20 U/L 6-55 (test code = 347) EGFR (BEAKER) (test 99 mL/min/1.73 ESTIMA JOSEPH GFR IS NOT code = 1092) sq m ACCURATE CREATININE JULIA JOY IN PREDICTING GLOMERULAR FILTRATION RATE . ESTIMATED GFR I S NOT APPLICABLE FOR DIALYSIS PATIEN TS. Customer Care Voice Consultant ID - [place] MSpecimen slightly ictericHepatic function [id number] 10:29:00 Test Item Value Reference Range Interpretation Comments Protein, Total (test 4.3 See_Comment L [Autom ated code = 2885-2) message] The system which generated this result transmitted reference range : 6.0 - 8.3 gm/dL . The reference range was not used to interpr et this result as normal/abnormal . Albumin (test code = 1.8 g/dL 3.5-5 L 83002-7) Total Bilirubin (test 2.8 mg/dL 0.2-1.2 H code = 1975-2) Bilirubin, Direct 1.6 mg/dL 0.1-0.5 H (test code = 1968-7) Alkaline Phosphatase 78 U/L 40-150 (test code = 6768-6) AST (test code = 48 U/L 5-34 H 1920-8) ALT (test code = 20 U/L 6-55 1742-6) MADDIE (test code = MADDIE) Customer Care Voice Consultant ID - HOUSTON Larsen slightly icteric Lab Interpretation Abnormal (test code = 77563-8) [facility] [id number] 10:29:00 Test Item Value Reference Range Interpretation Comments TOTAL PROTEIN (BEAKER) (test code = 4.3 gm/dL 6.0-8.3 L 770) ALBUMIN (BEAKER) (test code = 1145) 1.8 g/dL 3.5-5.0 L BILIRUBIN TOTAL (BEAKER) (test code 2.8 mg/dL 0.2-1.2 H = 377) BILIRUBIN DIRECT (BEAKER) (test 1.6 mg/dL 0.1-0.5 H code = 706) ALKALINE PHOSPHATASE (BEAKER) (test 78 U/L 40-150 code = 346) AST (SGOT) (BEAKER) (test code = 48 U/L 5-34 H 353) ALT (SGPT) (BEAKER) (test code = 20 U/L 6-55 347) Customer Care Voice Consultant ID - HOUSTON Larsen slightly [id number] 10:24:00 Test Item Value Reference Range Interpretation Comments Magnesium (test code = 1.5 mg/dL 1.6-2.6 L 52355-3) MADDIE (test code = MADDIE) Customer Care Voice Consultant ID - HOUST[place] Doll Lab Interpretation (test Abnormal code = 43871-0) [facility]osph[facility] 10:24:00 Test Item Value Reference Range Interpretation Comments Phosphorus (test code = 1.9 mg/dL 2.3-4.7 L 2777-1) MADDIE (test code = MADDIE) Customer Care Voice Consultant ID Bridger Doll Lab Interpretation (test Abnormal code = 82855-8) [facility] 10:24:00 Test Item Value Reference Range Interpretation Comments MAGNESIUM (BEAKER) (test code = 1.5 mg/dL 1.6-2.6 L 627) Customer Care Voice Consultant ID - [place] [id number] 10:24:00 Test Item Value Reference Range Interpretation Comments PHOSPHORUS (BEAKER) (test code = 1.9 mg/dL 2.3-4.7 L 604) Customer Care Voice Consultant RIGOBERTO CONRAD MPROTHROMBIN TIME/[id number] 07:13:00 Test Item Value Reference Range Interpretation Comments PROTIME (BEAKER) 20.0 seconds 11.9-14.2 H (test code = 759) INR (BEAKER) (test 1.73 See_Comment [Automat ed message] code = 370) The system [employer] generated this result transmitted ref erence range: <=5.90. The reference range was not used to int erpret this result as normal/abnormal . RECOMMENDED COUMADIN/WARFARIN INR THERAPY RANGESSTANDARD DOSE: 2.0 - 3.0 Includes: PROPHYLAXIS forvenous thrombosis, systemic embolization; TREATMENT for venous thrombosis and/or pulmonary embolus.HIGH RISK: Target INR is 2.5-3.5 for patients with mechanical heart valves.CBC W/PLT COUNT & AUTO DIFFERENTIAL 2021-04-09 07:02:00 Test Item Value Reference Range Interpretation Comments WHITE BLOOD CELL COUNT (BEAKER) 3.8 K/ L 3.5-10.5 (test code = 775) RED BLOOD CELL COUNT (BEAKER) 2.66 M/ L 3.93-5.22 L (test code = 761) HEMOGLOBIN (BEAKER) (test code = 7.5 GM/DL 11.2-15.7 L 410) HEMATOCRIT (BEAKER) (test code = 24.7 % 34.1-44.9 L 411) MEAN CORPUSCULAR VOLUME (BEAKER) 92.9 fL 79.4-94.8 (test code = 753) MEAN CORPUSCULAR HEMOGLOBIN 28.2 pg 25.6-32.2 (BEAKER) (test code = 751) MEAN CORPUSCULAR HEMOGLOBIN CONC 30.4 GM/DL 32.2-35.5 L (BEAKER) (test code = 752) RED CELL DISTRIBUTION WIDTH 17.0 % 11.7-14.4 H (BEAKER) (test code = 412) PLATELET COUNT (BEAKER) (test code 64 K/CU MM 150-450 L = 756) MEAN PLATELET VOLUME (BEAKER) 11.3 fL 9.4-12.3 (test code = 754) NUCLEATED RED BLOOD CELLS (BEAKER) 0 /100 WBC 0-0 (test code = 413) NEUTROPHILS RELATIVE PERCENT 49 % (BEAKER) (test code = 429) LYMPHOCYTES RELATIVE PERCENT 32 % (BEAKER) (test code = 430) MONOCYTES RELATIVE PERCENT 14 % (BEAKER) (test code = 431) EOSINOPHILS RELATIVE PERCENT 3 % (BEAKER) (test code = 432) BASOPHILS RELATIVE PERCENT 1 % (BEAKER) (test code = 437) NEUTROPHILS ABSOLUTE COUNT 1.86 K/ L 1.56-6.13 (BEAKER) (test code = 670) LYMPHOCYTES ABSOLUTE COUNT 1.22 K/ L 1.18-3.74 (BEAKER) (test code = 414) MONOCYTES ABSOLUTE COUNT (BEAKER) 0.52 K/ L 0.24-0.36 H (test code = 415) EOSINOPHILS ABSOLUTE COUNT 0.13 K/ L 0.04-0.36 (BEAKER) (test code = 416) BASOPHILS ABSOLUTE COUNT (BEAKER) 0.04 K/ L 0.01-0.08 (test code = 417) IMMATURE GRANULOCYTES-RELATIVE 1 % 0-1 PERCENT (BEAKER) (test code = 2801) Calcium, [id number] 06:59:00 Test Item Value Reference Range Interpretation Comments Calcium, Ion (test code = 1993-) 1.10 mmol/L 1.12-1.27 L pH, Blood (test code = 12748-2) 7.48 Lab Interpretation (test code = Abnormal 86752-3) [facility] CenterCALCIUM, [id number] 06:59:00 Test Item Value Reference Range Interpretation Comments CALCIUM IONIZED (BEAKER) (test 1.10 mmol/L 1.12-1.27 L code = 698) PH, BLOOD (BEAKER) (test code = 7.48 1810) Body fluid cell count with [id number] 18:49:00 Test Item Value Reference Range Interpretation Comments Appearance (test code Clear Clear = 9335-1) Color (test code = Yellow Colorless, Straw A 6824-7) RBCs (test code = 260 See_Comment H [Automate d 40878-7) message] The system which generated this result transmitted reference range : <=1 /cu mm. The reference range was not used to interpret this result as normal/abnormal . Adjusted WBC Count 170 See_Comment H [Automat ed (test code = 17129-4) messag e] The system which generated this result transmitted reference range : <=5 /cu mm. The reference range was not used to interpret this result as normal/abnormal . Lining Cells (test 0 See_Comment [Automat ed code = 17641-8) message] The system which generated this result transmitted reference range : <=1 /cu mm. The reference range was not used to interpret this result as normal/abnormal . % Segs (test code = 7 % 37169-3) % Lymphs (test code = 67 % 05775-4) % Monos (test code = 26 % 65631-6) % Eos (test code = 0 % 71890-5) % Baso (test code = 0 % 52343-1) Container Body Fluid Sterile (test code = 2873) Container Lab Interpretation Abnormal (test code = 62563-3) [facility] CenterBODY FL[facility] CE[facility] COUNT WITH [id number] 18:49:00 Test Item Value Reference Range Interpretation Comments APPEARANCE FLUID Clear Clear (BEAKER) (test code = 510) COLOR FLUID Yellow Colorless, Straw A (BEAKER) (test code = 511) RBC FLUID (BEAKER) 260 /cu mm See_Comment H [Automat ed (test code = 513) message] T he system which generated this result transmit joseph reference range : <=1. The refere nce range was not u sed to interpret th is result as normal/abnormal . ADJUSTED WBC FLUID 170 /cu mm See_Comment H [Automat ed (BEAKER) (test code message] The = 1691) system which generated this result transmit joseph reference range : <=5. The refere nce range was not u sed to interpret th is result as normal/abnormal . LINING CELLS 0 /cu mm See_Comment [Automated (BEAKER) (test code message] The = 1590) system which generated this result transmit joseph reference range : <=1. The refere nce range was not u sed to interpret th is result as normal/abnormal . NEUTROPHILS FLUID 7 % (BEAKER) (test code = 1656) LYMPHS FLUID 67 % (BEAKER) (test code = 488) MONO/MACROPHAGE 26 % FLUID (BEAKER) (test code = 489) EOSINOPHILS FLUID 0 % (BEAKER) (test code = 491) BASO FLUID (BEAKER) 0 % (test code = 492) CONTAINER BODY Sterile Container FLUID (BEAKER) (test code = 2873) Basic metabolic [id number] 06:55:00 Test Item Value Reference Range Interpretation Comments Sodium (test code = 144 meq/L 148-737 1066-2) Potassium (test code 3.5 meq/L 3.5-5.1 Specime n = 2823-3) slightly hemolyzed Chloride (test code = 110 meq/L 98-107 H 2075-0) CO2 (test code = 25 meq/L 22-29 8-9) BUN (test code = 13 mg/dL 7-21 3094-0) Creatinine (test code 0.55 mg/dL 0.57-1.25 L Specim en = 2160-0) slightly hemolyzed Glucose (test code = 60 mg/dL 70-105 L 2345-7) Calcium (test code = 7.8 mg/dL 8.4-10.2 L 92138-6) EGFR (test code = 116 mL/min/1.73 [place] [address]-6) NOT ACCURATE CREATININE CLEARANCE IN PREDICTING GLOMERULAR FILTRATION RATE . ESTIMATED GFR I S NOT APPLICABLE FOR DIALYSIS PATIENTS. MADDIE (test code = MADDIE) Customer Care Voice Consultant ID - BSSpecimen slightly icteric Lab Interpretation Abnormal (test code = 94155-0) [facility] METABOLIC [id number] 06:55:00 Test Item Value Reference Range Interpretation Comments SODIUM (BEAKER) 144 meq/L 136-145 (test code = 381) POTASSIUM (BEAKER) 3.5 meq/L 3.5-5.1 Specimen slightly (test code = 379) hemolyzed CHLORIDE (BEAKER) 110 meq/L 98-107 H (test code = 382) CO2 (BEAKER) (test 25 meq/L 22-29 code = 355) BLOOD UREA NITROGEN 13 mg/dL 7-21 (BEAKER) (test code = 354) CREATININE (BEAKER) 0.55 mg/dL 0.57-1.25 L Specimen slightly (test code = 358) hemolyzed GLUCOSE RANDOM 60 mg/dL 70-105 L (BEAKER) (test code = 652) CALCIUM (BEAKER) 7.8 mg/dL 8.4-10.2 L (test code = 697) EGFR (BEAKER) (test 116 mL/min/1.73 ESTIM ATED GFR IS code = 1092) sq m NOT ACCURATE CREATININE CLEARANCE IN PREDICTING GLOMERULAR FILTRATION RATE . ESTIMATED GFR I S NOT APPLICABLE FOR DIALYSIS PATIEN TS. Customer Care Voice Consultant ID - BSSpecimen slightly ictericHEPATIC FUNCTION [id number] 06:55:00 Test Item Value Reference Range Interpretation Comments TOTAL PROTEIN (BEAKER) 4.4 gm/dL 6.0-8.3 L Speci men slightly (test code = 770) hemolyzed ALBUMIN (BEAKER) (test 1.8 g/dL 3.5-5.0 L Speci men slightly code = 1145) hemolyzed BILIRUBIN TOTAL 3.5 mg/dL 0.2-1.2 H Specimen sli ghtly (BEAKER) (test code = hemoly zed 377) BILIRUBIN DIRECT 1.8 mg/dL 0.1-0.5 H Specimen sl ightly (BEAKER) (test code = hemoly zed 706) ALKALINE PHOSPHATASE 75 U/L 40-150 (BEAKER) (test code = 346) AST (SGOT) (BEAKER) 53 U/L 5-34 H Specimen slightly (test code = 353) hemolyzed ALT (SGPT) (BEAKER) 21 U/L 6-55 Specimen slightly (test code = 347) hemolyzed Customer Care Voice Consultant ID - BSSpecimen slightly [id number] 06:52:00 Test Item Value Reference Range Interpretation Comments MAGNESIUM (BEAKER) 1.6 mg/dL 1.6-2.6 Specimen slightly (test code = 627) hemolyzed Customer Care Voice Consultant ID - BSHepatitis B surface wxokvdrc1253-11-49 06:08:00 Test Item Value Reference Range Interpretation Comments Hep B S Ab (test code <8.0 See_Comment [Auto mated = 28940-5) message] The system which generated this result transmit joseph reference range : <8.0 mIU/mL. Th e reference range was not used to interpret this result as normal/abnormal . MADDIE (test code = MADDIE) Customer Care Voice Consultant ID - BS Lab Interpretation Normal (test code = 55488-6) [facility] Center[facility] fet[facility] (AFP), tumor [id number] 06:08:00 Test Item Value Reference Range Interpretation Comments Alpha-Fetoprotein <2.0 See_Comment [Automate d (test code = 1834-1) message ] The system which generated this result transmit joseph reference range : <10.0 ng/mL. Th e reference range was not used to interpret this result as normal/abnormal . MADDIE (test code = MADDIE) Customer Care Voice Consultant ID - BS Lab Interpretation Normal (test code = 45781-9) [facility] CenterALPHA FETOPROTEIN (AFP), TUMOR [id number] 06:08:00 Test Item Value Reference Range Interpretation Comments ALPHA-FETOPROTEIN (BEAKER) (test code < ng/mL <10.0 = 1094) Customer Care Voice Consultant ID - BSHEPATITIS B SURFACE [id number] 06:08:00 Test Item Value Reference Range Interpretation Comments HEPATITIS B SURFACE ANTIBODY < mIU/mL <8.0 (BEAKER) (test code = 647) Customer Care Voice Consultant ID - BSPROTHROMBIN TIME/[id number] 05:34:00 Test Item Value Reference Range Interpretation Comments PROTIME (BEAKER) 18.4 seconds 11.9-14.2 H (test code = 759) INR (BEAKER) (test 1.55 See_Comment [Automat ed message] code = 370) The system ic [employer] generated this result transmitted ref erence range: <=5.90. The reference range was not used to int erpret this result as normal/abnormal . RECOMMENDED COUMADIN/WARFARIN INR THERAPY RANGESSTANDARD DOSE: 2.0 - 3.0 Includes: PROPHYLAXIS forvenous thrombosis, systemic embolization; TREATMENT for venous thrombosis and/or pulmonary embolus.HIGH RISK: Target INR is 2.5-3.5 for patients with mechanical heart valves.CBC W/PLT COUNT & AUTO DIFFERENTIAL 2021-04-08 05:14:00 Test Item Value Reference Range Interpretation Comments WHITE BLOOD CELL COUNT (BEAKER) 5.3 K/ L 3.5-10.5 (test code = 775) RED BLOOD CELL COUNT (BEAKER) 3.08 M/ L 3.93-5.22 L (test code = 761) HEMOGLOBIN (BEAKER) (test code = 8.6 GM/DL 11.2-15.7 L 410) HEMATOCRIT (BEAKER) (test code = 28.4 % 34.1-44.9 L 411) MEAN CORPUSCULAR VOLUME (BEAKER) 92.2 fL 79.4-94.8 (test code = 753) MEAN CORPUSCULAR HEMOGLOBIN 27.9 pg 25.6-32.2 (BEAKER) (test code = 751) MEAN CORPUSCULAR HEMOGLOBIN CONC 30.3 GM/DL 32.2-35.5 L (BEAKER) (test code = 752) RED CELL DISTRIBUTION WIDTH 17.0 % 11.7-14.4 H (BEAKER) (test code = 412) PLATELET COUNT (BEAKER) (test code 72 K/CU MM 150-450 L = 756) MEAN PLATELET VOLUME (BEAKER) 11.1 fL 9.4-12.3 (test code = 754) NUCLEATED RED BLOOD CELLS (BEAKER) 0 /100 WBC 0-0 (test code = 413) NEUTROPHILS RELATIVE PERCENT 60 % (BEAKER) (test code = 429) LYMPHOCYTES RELATIVE PERCENT 26 % (BEAKER) (test code = 430) MONOCYTES RELATIVE PERCENT 10 % (BEAKER) (test code = 431) EOSINOPHILS RELATIVE PERCENT 3 % (BEAKER) (test code = 432) BASOPHILS RELATIVE PERCENT 1 % (BEAKER) (test code = 437) NEUTROPHILS ABSOLUTE COUNT 3.18 K/ L 1.56-6.13 (BEAKER) (test code = 670) LYMPHOCYTES ABSOLUTE COUNT 1.37 K/ L 1.18-3.74 (BEAKER) (test code = 414) MONOCYTES ABSOLUTE COUNT (BEAKER) 0.52 K/ L 0.24-0.36 H (test code = 415) EOSINOPHILS ABSOLUTE COUNT 0.14 K/ L 0.04-0.36 (BEAKER) (test code = 416) BASOPHILS ABSOLUTE COUNT (BEAKER) 0.04 K/ L 0.01-0.08 (test code = 417) IMMATURE GRANULOCYTES-RELATIVE 1 % 0-1 PERCENT (BEAKER) (test code = 2801) Blood Culture Panel([employer])2021-04-08 02:34:00 Test Item Value Reference Interpretation Comments Range LISTERIA MONOCYTOGENES Not detected Not detected (test code = 91582-6) STAPHYLOCOCCUS (test Detected Not detected A Coagula se negative code = 04699-3) Staph specie s (CoNS)- methicillin resistantFirst- delmis e therapy: Vancomycin MecA DETECTED Possib le contamination. The likelihood of pathogenicity i s increased if th e organism is observed in multiple blood cultures obtain ed from separate venipunctures. Reference Range : Not Detected STAPHYLOCOCCUS AUREUS Not detected Not detected (test code = 93317-8) Streptococcus (test Not detected Not detected code = 14140-9) STREPTOCOCCUS Not detected Not detected AGALACTIAE (GROUP B) (test code = 70771-8) STREPTOCOCCUS Not detected Not detected PNEUMONIAE (test code = 27959-1) Streptococcus pyogenes Not detected Not detected (Group A) (test code = 42575-8) ACINETOBACTER BAUMANNII Not detected Not detected (test code = 69317-1) HAEMOPHILUS INFLUENZAE Not detected Not detected (test code = 82034-0) NEISSERIA MENINGITIDIS Not detected Not detected (test code = 04044-6) ENTEROBACTERIACEAE Not detected Not detected (test code = 12979-4) ENTEROBACTER CLOACOE Not detected Not detected COMPLEX (test code = 51171-3) KLEBSIELLA OXYTOCA Not detected Not detected (test code = 48225-8) KLEBSIELLA PNEUMONIAE Not detected Not detected (test code = 62123-1) PROTEUS (test code = Not detected Not detected 62004-7) SERRATIA MARCESCENS Not detected Not detected (test code = 75968-5) ELIZ ALBICANS (test Not detected Not detected code = 65728-4) ELIZ GLABRATA (test Not detected Not detected code = 43907-7) ELIZ KRUSEI (test Not detected Not detected code = 57152-7) ELIZ PARAPSILOSIS Not detected Not detected (test code = 16515-9) ELIZ TROPICALIS Not detected Not detected (test code = 31026-9) ESCHERICHIA COLI (test Not detected Not detected code = 52435-4) METHICILLIN-RESISTANCE Detected Not detected A Note: GENE (test code = Antimicrob ial 30122-1) resistance can occur via multi ple mechanisms. A N ot Detected result for the [employer] antimicrobial resistance gene assays does not indicate antimicrobial susceptibility. Subculturing is required for species identification and susceptibility testing of isolates. VANCOMYCIN-RESISTANCE GENE (test code = 54217-1) CARBAPENEM-RESISTANCE GENE (test code = 47059-6) ENTEROCOCCUS (test code Not detected Not detected = 57173-5) PSEUDOMONAS AERUGINOSA Not detected Not detected (test code = 49482-1) MADDIE (test code = MADDIE) Other bacteria and resistance markers not targeted by this PCR panel cannot be excluded; therefore clinical correlation and follow up of serology, culture results, and other molecular studies is required. The results are not intended to be used as the sole means for clinical diagnosis or patient management decisions. This sample was tested at the [facility] Molecular Diagnostics Laboratory using the BoardVantage Blood Culture ID Panel. It is FDA cleared and has been verified and approved by the [facility] Molecular Diagnostics [facility] for clinical use. This laboratory is CLIA-certified and [employer] (CAP)-accredited to perform high complexity testing. Lab Interpretation Abnormal (test code = 75268-8) [facility] [id number] 02:34:00 Test Item Value Reference Interpretation Comments Range LISTERIA MONOCYTOGENES Not detected Not detected (test code = 1764406) STAPHYLOCOCCUS (test Detected Not detected A Coagula se negative code = 5658115) Staph specie s (CoNS)- methici llin resistantFirst- line therapy: Vancom ycin MecA DETECTED Possible contamination. The likelihood of pathogenicity i s increased if th e organism is observed in multiple blood cultures obtain ed from separate venipunctures. Reference Range : Not Detected STAPHYLOCOCCUS AUREUS Not detected Not detected (test code = 2304786) STREPTOCOCCUS (test code Not detected Not detected = 3655519) STREPTOCOCCUS AGALACTIAE Not detected Not detected (GROUP B) (test code = 9200050) STREPTOCOCCUS PNEUMONIAE Not detected Not detected (test code = 5107046) STREPTOCOCCUS PYOGENES Not detected Not detected (GROUP A) (test code = 4714410) ACINETOBACTER BAUMANNII Not detected Not detected (test code = 4549747) HAEMOPHILUS INFLUENZAE Not detected Not detected (test code = 9023622) NEISSERIA MENINGITIDIS Not detected Not detected (test code = 4131416) ENTEROBACTERIACEAE (test Not detected Not detected code = 7175883) ENTEROBACTER CLOACOE Not detected Not detected COMPLEX (test code = 2723814) KLEBSIELLA OXYTOCA (test Not detected Not detected code = 4495633) KLEBSIELLA PNEUMONIAE Not detected Not detected (test code = 1650) PROTEUS (test code = Not detected Not detected 7428398) SERRATIA MARCESCENS Not detected Not detected (test code = 4810666) ELIZ ALBICANS (test Not detected Not detected code = 0649019) ELIZ GLABRATA (test Not detected Not detected code = 7613192) ELIZ KRUSEI (test Not detected Not detected code = 1392959) ELIZ PARAPSILOSIS Not detected Not detected (test code = 0862840) ELIZ TROPICALIS (test Not detected Not detected code = 5220572) ESCHERICHIA COLI (test Not detected Not detected code = 5505549) METHICILLIN-RESISTANCE Detected Not detected A Note: Antimicrobial GENE (test code = resistance can 3185188) occur via multi ple mechanisms. A N ot Detected result for the [facility] antimicrobial resistance gene assays does not indicate antimicrobial susceptibility. Subculturing is required for species identification and susceptibility testing of isolates. VANCOMYCIN-RESISTANCE GENE (test code = 6061955) CARBAPENEM-RESISTANCE GENE (test code = 9018302) ENTEROCOCCUS-BEAKER Not detected Not detected (test code = 0461658) PSEUDOMONAS Not detected Not detected AERUGINOSA-BEAKER (test code = 5090484) Other bacteria and resistance markers not targeted by this PCR panel cannot be excluded; therefore clinical correlation and follow up of serology, culture results, and other molecular studies is required. The results are not intended to be used as the sole means for clinical diagnosis or patient management decisions. This sample was tested at the [facility] Molecular Diagnostics Laboratory using the TapInfluenceArray Blood Culture ID Panel. It is FDA cleared and has been verified and approved by the [facility] Molecular Diagnostics Laboratory for clinical use. This laboratory is CLIA-certified and College ofAmerican Pathologists (CAP)-accredited to perform high complexity testing.Rapid drug screen, [id number] 13:13:00 Test Item Value Reference Range Interpretation Comments Methamphetamine Screen Positive Negative A (test code = 04379-1) Barbiturate Screen Negative Negative (test code = 56626-9) Benzodiazepine Screen Positive Negative A (test code = 19294-7) Cocaine (Metab.) Screen Negative Negative (test code = 3397-7) Methadone Screen (test Positive Negative A code = 39353-5) Opiate Screen (test Negative Negative code = 99510-4) Cannabinoid Screen Negative Negative (test code = 59287-1) Tricyclic Screen (test Negative Negative code = 00162-9) Amphetamine Screen Negative Negative (test code = 28751-4) Phencyclidine Screen Negative Negative (test code = 99465-1) pH, UA (test code = 6.0 5.0-8.0 5803-2) MADDIE (test code = MADDIE) DRUG CUTOFF CONC.Cocaine 300 ng/mL Cannabinoid 50 ng/mLBenzodiazepine 200 ng/mLBarbiturate 200 ng/mLPhencyclidine 25 ng/mLOpiate 300 ng/mLMethadone 300 ng/mLAmphetamine/ 1000 ng/mL Methamphetamine This assay provides an unconfirmed qualitative test result for the clinical management of patients in emergency situations. Chain of custody not maintained. Some ximi-gzc-dyvwjry medications, as well as adulterants, may cause inaccurate results. Clinical correlation should be applied. A more comprehensive drug screen or confirmation of a detected drug may be performed upon request. Lab Interpretation Abnormal (test code = 18783-0) [facility] Center[facility]EN, [id number] 13:13:00 Test Item Value Reference Range Interpretation Comments METHAMPHETAMINE SCREEN (BEAKER) Positive Negative A (test code = 1435) BARBITURATE URINE (BEAKER) (test Negative Negative code = 725) BENZODIAZEPINE SCREEN URINE (BEAKER) Positive Negative A (test code = 726) COCAINE (METAB.) SCREEN (BEAKER) Negative Negative (test code = 1164) METHADONE SCREEN (BEAKER) (test code Positive Negative A = 1436) OPIATE SCREEN URINE (BEAKER) (test Negative Negative code = 734) CANNABINOID SCREEN URINE (BEAKER) Negative Negative (test code = 727) TRICYCLIC SCREEN (BEAKER) (test code Negative Negative = 1437) AMPHETAMINE SCREEN URINE (BEAKER) Negative Negative (test code = 399) PHENCYCLIDINE SCREEN URINE (BEAKER) Negative Negative (test code = 608) PH UA (BEAKER) (test code = 467) 6.0 5.0-8.0 DRUG CUTOFF CONC.Cocaine 300 ng/mL Cannabinoid 50 ng/mLBenzodiazepine 200 ng/mLBarbiturate 200 ng/mLPhencyclidine 25 ng/mLOpiate 300 ng/mLMethadone 300 ng/mLAmphetamine/ 1000 ng/mL MethamphetamineThis assay provides an unconfirmed qualitative test result for the clinical management of patients in emergency situations. Chain of custody not maintained. Some eibw-ckj-jhsqqqx medications, as well as adulterants, may cause inaccurate results. Clinical correlation should be applied. A more comprehensivedrug screen or confirmation of a detected drug may be performed upon request.Urinalysis w/Microscopic + Reflex to [id number] 12:09:00 Test Item Value Reference Range Interpretation Comments Color, UA (test code Yellow = 5778-6) Clarity, UA (test Hazy code = 5767-9) Specific [place], UA 1.018 1.001-1.035 (test code = 5811-5) pH, UA (test code = 6.5 5.0-8.0 5803-2) Protein, UA (test 50 mg/dL Negative A code = 47907-3) Glucose, UA (test Negative Negative code = 365) Ketones, UA (test Negative Negative code = 2514-8) Bilirubin, UA (test Negative Negative code = 96254-2) Blood, UA (test code Moderate Negative A = 03807-1) Nitrite, UA (test Negative Negative code = 5802-4) Leukocytes, UA (test Negative Negative code = 5799-2) Urobilinogen, UA 4.0 mg/dL 0.2-1 H (test code = 45629-1) RBC, UA (test code = 122 See_Comment [Autom ated 04834-9) message] The system which generated this result transmit joseph reference range : /HPF. The reference range was not used to interpret this result as normal/abnormal . WBC, UA (test code = 5 See_Comment [Autom ated 5821-4) message] The system which generated this result transmit joseph reference range : /HPF. The reference range was not used to interpret this result as normal/abnormal . Bacteria, UA (test None Seen code = 22068-3) Mucus (test code = Rare 8247-9) Squam Epithel, UA 25 See_Comment [Automate d (test code = 97771-3) messag e] The system which generated this result transmit joseph reference range : /HPF. The reference range was not used to interpret this result as normal/abnormal . Hyaline Casts, UA 6 See_Comment [Automate d (test code = 11589-9) messag e] The system which generated this result transmit joseph reference range : /LPF. The reference range was not used to interpret this result as normal/abnormal . Crystals, Urine (test None Seen code = 63962-5) Specimen Source (test code = 2795) MADDIE (test code = MADDIE) Customer Care Voice Consultant ID - [auto]Customer Care Voice Consultant ID - tech Lab Interpretation Abnormal (test code = 56081-0) [facility] URINE [id number] 12:09:00 Test Item Value Reference Range Interpretation Comments COLOR (BEAKER) (test code = 470) Yellow CLARITY (BEAKER) (test code = 469) Hazy SPECIFIC GRAVITY UA (BEAKER) (test 1.018 1.001-1.035 code = 468) PH UA (BEAKER) (test code = 467) 6.5 5.0-8.0 PROTEIN UA (BEAKER) (test code = 50 mg/dL Negative A 464) GLUCOSE UA (BEAKER) (test code = Negative Negative 365) KETONES UA (BEAKER) (test code = Negative Negative 371) BILIRUBIN UA (BEAKER) (test code = Negative Negative 462) BLOOD UA (BEAKER) (test code = 461) Moderate Negative A NITRITE UA (BEAKER) (test code = Negative Negative 465) LEUKOCYTE ESTERASE UA (BEAKER) Negative Negative (test code = 466) UROBILINOGEN UA (BEAKER) (test code 4.0 mg/dL 0.2-1.0 H = 463) RBC UA (BEAKER) (test code = 519) 122 /HPF WBC UA (BEAKER) (test code = 520) 5 /HPF BACTERIA (BEAKER) (test code = 517) None Seen MUCUS (BEAKER) (test code = 1574) Rare SQUAMOUS EPITHELIAL (BEAKER) (test 25 /HPF code = 516) HYALINE CASTS (BEAKER) (test code = 6 /LPF 514) CRYSTALS, URINE (BEAKER) (test code None Seen = 1521) SOURCE(BEAKER) (test code = 2795) Customer Care Voice Consultant ID - [auto]Customer Care Voice Consultant ID - techCT, BRAIN, WITHOUT [id number] 08:19:00Unlisted Reason for Exam - Click Yes and Enter Reason Below- >YesPossible acute infarct on prior CT but motion limitedUnlisted Reason for Exam->Possible acute infarct on prior CT but very motion limited. Radiology recommended repeat [facility] : 1970 Sex: FFINAL REPORT CT, BRAIN, WITHOUT CONTRAST CLINICAL INDICATION: Unlist ed Reason for ExamPossible acute infarct on prior CT but very motion limited. Radiology recommended repeat CT COMPARISON: 8 hours prior TECHNIQUE: Noncontrast axial CT imaging of the brain and skull.DOSE REDUCTION: Dose modulation, iterative reconstruction, and/or weight-based adjustment of the mA/k V was utilized to reduce the radiation dose to as low as reasonably achievable. FINDINGS:Cerebral parenchyma: Unremarkable.Midline structures: Normally positioned.Cerebellum and brainstem: Normal.Ventricles: Normal volume.Extra- axial spaces: Unremarkable. Calvarium and skull base: Intact.Paranasal sinuses and mastoid air cells: Visible chambers are clear.Orbital contents: Included portions unremarkable. Additional findings: None. IMPRESSION: No acute intracranial abnormality, no visible ischemic injury. If there is persistent clinical concern for intracranial pathology, MR examination is recommended for further characterization. Signed: JR Fowler Robert MDRepmissouri rehabilitation center Verified Date/Time: 04/07/2021 08:19:05 Reading Location: [address] Neuro Reading Room brain without IV [id number] 08:19:00Interface, External Ris In - 04/07/2021 8:[address], BRAIN, WITHOUT CONTRAST CLINICAL INDICATION: Unlisted Reason for ExamPossible acute infarct on prior CT but very motion limited. Radiology recommended repeat CT COMPARISON: 8 hours prior TECHNIQUE: Noncontrast axial CT imaging of the brain and skull. DOSE REDUCTION: Dose modulation, iterative reconstruction, and/or weight-based adjustment of the mA/kV was utilized to reduce the radiation dose to as low as r easonably achievable. FINDINGS:Cerebral parenchyma: Unremarkable.Midline structures: Normally positioned.Cerebellum and brainstem: Normal.Ventricles: Normal volume.Extra-axial spaces: Unremarkable. Calvarium and skull base: Intact.Paranasal sinuses and mastoid air cells: Visible chambers are clear.Orbi eli contents: Included portions unremarkable. Additional findings: None. IMPRESSION: No acute intracranial abnormality, no visible ischemic injury. If there is persistent clinical concern for intracranial pathology, MR examination is recommended for further characterization. Signed: JR Fowler Robert MDReport Verified Date/Time: 04/07/2021 08:19:05 Reading Location: [facility] C013V Neuro Reading Room [facility] METABOLIC [id number] 05:27:00 Test Item Value Reference Range Interpretation Comments SODIUM (BEAKER) 140 meq/L 136-145 (test code = 381) POTASSIUM (BEAKER) 3.8 meq/L 3.5-5.1 (test code = 379) CHLORIDE (BEAKER) 105 meq/L 98-107 (test code = 382) CO2 (BEAKER) (test 29 meq/L 22-29 code = 355) BLOOD UREA NITROGEN 11 mg/dL 7-21 (BEAKER) (test code = 354) CREATININE (BEAKER) 0.59 mg/dL 0.57-1.25 (test code = 358) GLUCOSE RANDOM 75 mg/dL 70-105 (BEAKER) (test code = 652) CALCIUM (BEAKER) 7.9 mg/dL 8.4-10.2 L (test code = 697) EGFR (BEAKER) (test 107 mL/min/1.73 ESTIM ATED GFR IS code = 1092) sq m NOT ACCURATE CREATININE CLEARANCE IN PREDICTING GLOMERULAR FILTRATION RATE . ESTIMATED GFR I S NOT APPLICABLE FOR DIALYSIS PATIEN TS. Customer Care Voice Consultant ID - [place] MSpecimen moderately [id number] 05:12:00 Test Item Value Reference Range Interpretation Comments MAGNESIUM (BEAKER) (test code = 1.4 mg/dL 1.6-2.6 L 627) Customer Care Voice Consultant ID - [place] MHEPATIC FUNCTION [id number] 05:12:00 Test Item Value Reference Range Interpretation Comments TOTAL PROTEIN (BEAKER) (test code = 5.1 gm/dL 6.0-8.3 L 770) ALBUMIN (BEAKER) (test code = 1145) 2.1 g/dL 3.5-5.0 L BILIRUBIN TOTAL (BEAKER) (test code 4.9 mg/dL 0.2-1.2 H = 377) BILIRUBIN DIRECT (BEAKER) (test 2.1 mg/dL 0.1-0.5 H code = 706) ALKALINE PHOSPHATASE (BEAKER) (test 90 U/L 40-150 code = 346) AST (SGOT) (BEAKER) (test code = 64 U/L 5-34 H 353) ALT (SGPT) (BEAKER) (test code = 28 U/L 6-55 347) Customer Care Voice Consultant ID - [place] MSpecimen moderately ictericPROTHROMBIN [id number] 04:52:00 Test Item Value Reference Range Interpretation Comments PROTIME (BEAKER) 17.5 seconds 11.9-14.2 H (test code = 759) INR (BEAKER) (test 1.46 See_Comment [Automat ed message] code = 370) The system GalaDo generated this result transmitted ref erence range: <=5.90. The reference range was not used to int erpret this result as normal/abnormal . RECOMMENDED COUMADIN/WARFARIN INR THERAPY RANGESSTANDARD DOSE: 2.0 - 3.0 Includes: PROPHYLAXIS forvenous thrombosis, systemic embolization; TREATMENT for venous thrombosis and/or pulmonary embolus.HIGH RISK: Target INR is 2.5-3.5 for patients with mechanical heart valves.CBC W/PLT COUNT & AUTO DIFFERENTIAL 2021-04-07 04:51:00 Test Item Value Reference Range Interpretation Comments WHITE BLOOD CELL COUNT 6.0 K/ L 3.5-10.5 (BEAKER) (test code = 775) RED BLOOD CELL COUNT 3.37 M/ L 3.93-5.22 L (BEAKER) (test code = 761) HEMOGLOBIN (BEAKER) 9.3 GM/DL 11.2-15.7 L (test code = 410) HEMATOCRIT (BEAKER) 31.3 % 34.1-44.9 L (test code = 411) MEAN CORPUSCULAR 92.9 fL 79.4-94.8 Discordant mcv result VOLUME (BEAKER) (test compar ed to previous code = 753) result, clinica l correlation req uired MEAN CORPUSCULAR 27.6 pg 25.6-32.2 HEMOGLOBIN (BEAKER) (test code = 751) MEAN CORPUSCULAR 29.7 GM/DL 32.2-35.5 L HEMOGLOBIN CONC (BEAKER) (test code = 752) RED CELL DISTRIBUTION 16.6 % 11.7-14.4 H WIDTH (BEAKER) (test code = 412) PLATELET COUNT 85 K/CU MM 150-450 L (BEAKER) (test code = 756) MEAN PLATELET VOLUME 12.1 fL 9.4-12.3 (BEAKER) (test code = 754) NUCLEATED RED BLOOD 0 /100 WBC 0-0 CELLS (BEAKER) (test code = 413) NEUTROPHILS RELATIVE 58 % PERCENT (BEAKER) (test code = 429) LYMPHOCYTES RELATIVE 29 % PERCENT (BEAKER) (test code = 430) MONOCYTES RELATIVE 9 % PERCENT (BEAKER) (test code = 431) EOSINOPHILS RELATIVE 4 % PERCENT (BEAKER) (test code = 432) BASOPHILS RELATIVE 1 % PERCENT (BEAKER) (test code = 437) NEUTROPHILS ABSOLUTE 3.47 K/ L 1.56-6.13 COUNT (BEAKER) (test code = 670) LYMPHOCYTES ABSOLUTE 1.73 K/ L 1.18-3.74 COUNT (BEAKER) (test code = 414) MONOCYTES ABSOLUTE 0.54 K/ L 0.24-0.36 H COUNT (BEAKER) (test code = 415) EOSINOPHILS ABSOLUTE 0.22 K/ L 0.04-0.36 COUNT (BEAKER) (test code = 416) BASOPHILS ABSOLUTE 0.05 K/ L 0.01-0.08 COUNT (BEAKER) (test code = 417) IMMATURE 0 % 0-1 GRANULOCYTES-RELATIVE PERCENT (BEAKER) (test code = 2801) SARS-CoV2/Influenza/RSV RT-PCR (Symptomatic ONLY)2021-04-07 03:01:00 Test Item Value Reference Range Interpretation Comments SARS-COV2/RT-PCR (test Negative Negative code = 87603-6) Influenza A RT-PCR Negative Negative (test code = 86911-5) Influenza B RT-PCR Negative Negative (test code = 81149-9) RSV by RT-PCR (test Negative Negative Performa nce of the code = 53720-9) Xpert Xpress SARS-CoV-2/Flu/ RSV test has only been established in nasopharyngeal swab specimens. Use of the Xpert Xpress SARS-CoV-2/Flu/ RSV test with other spec imen types has not b een assessed and performance characteristics are unknown. As wi th any molecular test, mutations withi n the targeted geneti c regions identif ied by the Xpert Xpres s SARS-CoV-2/Flu/ RSV test could affect pr christiano and/or probe bi nding resulting in fa ilure to detect the pres ence of virus or the vi hannah being detected less predictably.Neg ative results do not preclude SARS-CoV-2, Inf luenza A/B, or RSV inf ection and should not be used as the sole bas is for treatment or ot her patient managem ent decisions. Res ults from the Xpert Xpress SARS-CoV-2/Flu/ RSV test should be corre lated with the clinic al history, epidemiological data, and other data available to th e clinician evalu ating the patient. I nvalid test results ma y occur from improper s pecimen collection; ermias lure to follow the nathalie mmended sample collecti on, handling, and s torage procedures; roldan hnical error. False ne gative results may occ ur if virus is presen t at levels below th e analytical limi t of detection (LOD: 131 copies/mL). Vi ral nucleic acid ma y persist in vivo , independent of virus viability. Dete ction of analyte target( s) does not imply that the corresponding v irus(es) are infectious or are the causative a gents for clinical sy mptoms. Recent patient exposure to FluMist or other live attenuated influenza vacci catrina may cause inaccurat e positive result s.This test has been authorized by [employer] under an EUA for use by authorized laboratories. This test is only au thorized for the duratio n of the declaration vandana t circumstances e xist justifying the authorization o f emergency use o f in vitro diagnosti c tests for detection a nd/or diagnosis of CO VID-19 under Section 5 64(b)(1) of the Federal Food, Drug and Cosmet ic Act, 21 U.S.C. 360bbb-3(b)(1), unless the authorizati on is terminated or r evoked sooner. Fact Sh eet for Healthcare Prov iders: https://www.Ntirety /Documents/Xper t%20Xpre ss%36SPRL-IdW-5 -Flu-RSV /302-4508%20Rev .%20B%20 HCP%20Fact%20Sh eet.pdf Fact Sheet for Healthcare Loan ents: https://www.[employer] /Documents/Xper t%20Xpre ss%04GQBI-LbH-7 -Flu-RSV /302-4507%20Rev .%20B%20 Patient%20Fact% 20Sheet. pdf Lab Interpretation Normal (test code = 03525-8) [facility] [id number] 03:01:00 Test Item Value Reference Range Interpretation Comments SARS-COV2/RT-PCR Negative Negative (test code = 0057617) INFLUENZA A RT-PCR Negative Negative (test code = 3300904) INFLUENZA B RT-PCR Negative Negative (test code = 8429280) RSV RT-PCR (test Negative Negative Performanc e of the Xpert code = 5083903) Xpress SARS- CoV-2/Flu/RSV test has only b een established in nasopharyngeal swab specimens. Use of the Xpert Xpress SARS-CoV-2/Flu/ RSV test with other spec imen types has not been as sessed and performance characteristics are unknown. As wi th any molecular test, mutations within the targ eted genetic regions identified by t he Xpert Xpress SARS-CoV -2/Flu/RSV test could affe ct primer and/or probe bi nding resulting in fa ilure to detect the pres ence of virus or the vi hannah being detected less predictably.Neg ative results do not preclude SARS-CoV-2, Inf luenza A/B, or RSV inf ection and should not be u sed as the sole basis for treatment or other patien t management deci sions. Results from e Xpert Xpress SARS-CoV -2/Flu/RSV test should be correlated with the clinic al history, epidem iological data, and other data available to th e clinician evalu ating the patient. Inval id test results may occ ur from improper specim en collection; ermias lure to follow the nathalie mmended sample collecti on, handling, and s torage procedures; roldan hnical error. False ne gative results may occ ur if virus is presen t at levels below th e analytical limi t of detection (LOD: 131 copies/mL). Vi ral nucleic acid ma y persist in vivo, indepe ndent of virus viability . Detection of an alyte target(s) does not imply that the corres ponding virus(es) are i nfectious or are the caus ative agents for clin ical symptoms. Rece nt patient exposure to Flu Mist or other live atte nuated influenza vacci catrina may cause inaccurat e positive results.This te st has been authorized by FDA under an EUA fo r use by authorized labo ratories. This test is on ly authorized for the duration of the declaration vandana t circumstances e xist justifying the authorization o f emergency use o f in vitro diagnostic test s for detection and/o r diagnosis of CO VID-19 under Section 5 64(b)(1) of the Federal Food, Drug and Cosmetic Ac t, 21 U.S.C. 360bbb -3(b)(1), unless the auth orization is terminated o r revoked sooner.Fact She et for Healthcare Prov iders: https://www.cep heid.com/D ocuments/Xpert% 20Xpress%2 7IQZY-PdA-5-Flu -RSV/302-4 508%20Rev.%20B% 20HCP%20Fa ct%20Sheet.pdfF act Sheet for Healthcare Patients: https://www.[employer] heid.com/D ocuments/Xpert% 20Xpress%2 8XIYD-ZuP-5-Flu -RSV/302-4 507%20Rev.%20B% 20Patient% 20Fact%20Sheet. pdf CT, BRAIN, WITHOUT [id number] 00:40:00Reason for exam:->Confusion [facility] : 1970 Sex: FFINAL REPORT CT, BRAIN, WITHOUT CONTRAST CLINICAL INDICATION: Altered mental statusConfusion COMPARISON: None TECHNIQUE: Noncontrast axial CT imaging of the brain and skull. Coronal and sagittal reformats obtained. DOSE REDUCTION: Dose modulation, iterative reconstruction, and/or weight-based adjustment of the mA/kV was utilized to reduce the radiation dose to as lowas reasonably achievable. FINDINGS:Motion degraded exam.Cerebral parenchyma: Left occipital lobe loss of anderson-white matter differentiation may be exaggerated by extensive artifact. No acute intracranial hemorrhage, midline shift or hydrocephalus.Cerebellum and brainstem: No acute finding.Ventricles: No evidence of hydrocephalus.Extra-axial spaces: Unremarkable. Calvarium and skull base: Intact.Paranasal sinuses and mastoid air cells: Imaged chambers are without acute abnormality. Left mastoid sinus mucus retention cyst or polyp, 1 cm.Orbital contents: Included portions unremarkable. Additional findings: Image quality degraded by presence of patient's arm within the scan, streak and beam hardening artifact, quantum mottle and motion artifact. IMPRESSION:Artifact degrades exam. Left occipital lobegray-white matter loss possibly representing acute ischemia but likely exaggerated by artifact. No acute intracranial hemorrhage. Clarification by repeat CT head or MRI brain recommended. Signed: Jerry Gray MDReport Verified Date/Time: 04/07/2021 00:40:41 High Sensitivity Troponin I ([facility]/Mary Only)2021-04-06 21:40:00 Test Item Value Reference Range Interpretation Comments Troponin I HS <4 See_Comment [Automated (test code = message] The 62989-6) system which generated this result transmitted reference range : <=17 pg/ml. The reference range was not used to interpret this result as normal/abnormal . MADDIE (test code = Customer Care Voice Consultant ID - MADDIE) DBThe PROFESSOR OF THEATRE STAT High Sensitivity Troponin-I results should be used in conjunction with other diagnostic information such as ECG, clinical observations and information, and patient symptoms to aid in the diagnosis of SD. Lab Interpretation Normal (test code = 05063-0) [facility] Center[facility]ITIVITY TROPONIN [id number] 21:40:00 Test Item Value Reference Range Interpretation Comments HIGH SENSITIVITY < pg/ml See_Comment [Automated message] TROPONIN I (test code = The system which 6681308) generated this result transmitted ref erence range: <=17. Th e reference range was not used to interpr et this result as normal/abnormal . Customer Care Voice Consultant ID - DBThe PROFESSOR OF THEATRE STAT High Sensitivity Troponin-I results should be used in conjunctionwith other diagnostic information such as ECG, clinical observations and information, and patient symptoms to aid in the diagnosis of SD.[id number] 21:36:00 Test Item Value Reference Range Interpretation Comments MAGNESIUM (BEAKER) 1.5 mg/dL 1.6-2.6 L Specimen slightly (test code = 627) hemolyzed Customer Care Voice Consultant ID - [id number] 21:36:00 Test Item Value Reference Range Interpretation Comments PHOSPHORUS (BEAKER) 3.0 mg/dL 2.3-4.7 Specimen slightly (test code = 604) hemolyzed Customer Care Voice Consultant ID - DBCOMPREHENSIVE METABOLIC [id number] 21:36:00 Test Item Value Reference Range Interpretation Comments TOTAL PROTEIN 5.5 gm/dL 6.0-8.3 L Specimen sligh tly (BEAKER) (test code = hemoly zed 770) ALBUMIN (BEAKER) 2.3 g/dL 3.5-5.0 L Specimen sl ightly (test code = 1145) hemolyzed ALKALINE PHOSPHATASE 93 U/L 40-150 (BEAKER) (test code = 346) BILIRUBIN TOTAL 5.0 mg/dL 0.2-1.2 H Specimen sli ghtly (BEAKER) (test code = hemoly zed 377) SODIUM (BEAKER) (test 141 meq/L 136-145 code = 381) POTASSIUM (BEAKER) 4.9 meq/L 3.5-5.1 Specimen slightly (test code = 379) hemolyzed CHLORIDE (BEAKER) 105 meq/L 98-107 (test code = 382) CO2 (BEAKER) (test 26 meq/L 22-29 code = 355) BLOOD UREA NITROGEN 9 mg/dL 7-21 (BEAKER) (test code = 354) CREATININE (BEAKER) 0.60 mg/dL 0.57-1.25 Specimen slightly (test code = 358) hemolyzed GLUCOSE RANDOM 82 mg/dL 70-105 (BEAKER) (test code = 652) CALCIUM (BEAKER) 8.1 mg/dL 8.4-10.2 L (test code = 697) AST (SGOT) (BEAKER) 84 U/L 5-34 H Specimen slightly (test code = 353) hemolyzed ALT (SGPT) (BEAKER) 31 U/L 6-55 Specimen slightly (test code = 347) hemolyzed EGFR (BEAKER) (test 105 ESTIMATE D GFR IS code = 1092) mL/min/1.73 sq NOT ACCURA TE m CREATININE CLEARANCE IN PREDICTING GLOMERULAR FILTRATION RATE . ESTIMATED GFR I S NOT APPLICABLE FOR DIALYSIS PATIEN TS. Customer Care Voice Consultant ID - DBSpecimen moderately ictericBlood alcohol [id number] 21:32:00 Test Item Value Reference Range Interpretation Comments Ethanol Lvl (test <10 See_Comment [Automate d code = 5643-2) message] The system which generated this result transmit joseph reference range : <=10 mg/dL. The reference range was not used to interpret this result as normal/abnormal . MADDIE (test code = MADDIE) Customer Care Voice Consultant ID - DB Lab Interpretation Normal (test code = 93309-0) [facility] CenterETHANOL2021-06-21 21:32:00 Test Item Value Reference Range Interpretation Comments ETHANOL (BEAKER) < mg/dL See_Comment [Automated message] The (test code = 400) system whi generated this result tra nsmitted reference range : <=10. The reference r jermaine was not used to int erpret this result as normal/abnormal . Customer Care Voice Consultant ID - [id number] 21:24:00 Test Item Value Reference Range Interpretation Comments Ammonia (test code = 178 See_[place] [address]-8) moderately hemolyzed [Automated message] The system which generated this result transmit joseph reference range : 18 - 72 mol/L . The reference range was not u sed to interpret th is result as normal/abnormal . MADDIE (test code = MADDIE) Customer Care Voice Consultant ID - DB Lab Interpretation Abnormal (test code = 89517-8) [facility] CenterAMMONIA2021-[facility]-21 21:24:00 Test Item Value Reference Range Interpretation Comments AMMONIA (BEAKER) 178 mol/L 18-72 H Specimen mo derately (test code = 348) hemolyzed Customer Care Voice Consultant ID - DBPT/[id number] 20:33:00 Test Item Value Reference Interpretation Comments Range Protime (test code = 17.4 See_Comment H [Autom ated 5902-2) message] The system which generated this result transmitted reference range : 11.9 - 14.2 seconds. The reference range was not used to interpret this result as normal/abnormal . INR (test code = 1.45 See_Comment [Automated 6051-6) message] The system which generated this result transmitted reference range : <=5.90. The reference range was not used to interpret this result as normal/abnormal . PTT (test code = 31.4 See_Comment [Automated 21447-8) message] The system which generated this result [...] valves. Lab Interpretation Abnormal (test code = 66347-6) [facility] CenterPT/[id number] 20:33:00 Test Item Value Reference Range Interpretation Comments PROTIME (BEAKER) (test 17.4 seconds 11.9-14.2 H code = 759) INR (BEAKER) (test 1.45 See_Comment [Automat ed code = 370) message] The sy stem which generated this result transmitted reference range : <=5.90. The reference range was not used to interpret this result as normal/abnormal . PARTIAL THROMBOPLASTIN 31.4 seconds 22.5-36.0 TIME (BEAKER) (test code = 760) RECOMMENDED COUMADIN/WARFARIN INR THERAPY RANGESSTANDARD DOSE: 2.0 - 3.0 Includes: PROPHYLAXIS forvenous thrombosis, systemic embolization; TREATMENT for venous thrombosis and/or pulmonary embolus.HIGH RISK: Target INR is 2.5-3.5 for patients with mechanical heart valves.CBC W/PLT COUNT & AUTO DIFFERENTIAL 2021-04-06 20:15:00 Test Item Value Reference Range Interpretation Comments WHITE BLOOD CELL COUNT (BEAKER) 4.1 K/ L 3.5-10.5 (test code = 775) RED BLOOD CELL COUNT (BEAKER) 3.30 M/ L 3.93-5.22 L (test code = 761) HEMOGLOBIN (BEAKER) (test code = 9.2 GM/DL 11.2-15.7 L 410) HEMATOCRIT (BEAKER) (test code = 32.3 % 34.1-44.9 L 411) MEAN CORPUSCULAR VOLUME (BEAKER) 97.9 fL 79.4-94.8 H (test code = 753) MEAN CORPUSCULAR HEMOGLOBIN 27.9 pg 25.6-32.2 (BEAKER) (test code = 751) MEAN CORPUSCULAR HEMOGLOBIN CONC 28.5 GM/DL 32.2-35.5 L (BEAKER) (test code = 752) RED CELL DISTRIBUTION WIDTH 16.6 % 11.7-14.4 H (BEAKER) (test code = 412) PLATELET COUNT (BEAKER) (test code 57 K/CU MM 150-450 L = 756) MEAN PLATELET VOLUME (BEAKER) 11.5 fL 9.4-12.3 (test code = 754) NUCLEATED RED BLOOD CELLS (BEAKER) 0 /100 WBC 0-0 (test code = 413) NEUTROPHILS RELATIVE PERCENT 69 % (BEAKER) (test code = 429) LYMPHOCYTES RELATIVE PERCENT 20 % (BEAKER) (test code = 430) MONOCYTES RELATIVE PERCENT 8 % (BEAKER) (test code = 431) EOSINOPHILS RELATIVE PERCENT 2 % (BEAKER) (test code = 432) BASOPHILS RELATIVE PERCENT 1 % (BEAKER) (test code = 437) NEUTROPHILS ABSOLUTE COUNT 2.87 K/ L 1.56-6.13 (BEAKER) (test code = 670) LYMPHOCYTES ABSOLUTE COUNT 0.84 K/ L 1.18-3.74 L (BEAKER) (test code = 414) MONOCYTES ABSOLUTE COUNT (BEAKER) 0.33 K/ L 0.24-0.36 (test code = 415) EOSINOPHILS ABSOLUTE COUNT 0.07 K/ L 0.04-0.36 (BEAKER) (test code = 416) BASOPHILS ABSOLUTE COUNT (BEAKER) 0.02 K/ L 0.01-0.08 (test code = 417) IMMATURE GRANULOCYTES-RELATIVE 0 % 0-1 PERCENT (BEAKER) (test code = 2801) ECG 12 [id number] 13:43:01Interface, External Ris In - 03/13/2021 1:43 PM CDTVentricular Rate 111 BPMAtrial Rate 111 BPMP-R Interval 130 msQRS Duration 72 msQ-T Interval 354 msQTC Calculation(Bazett) 481 msP [place] 73 degreesR [place] 12 degreesT [place] 26 degreesSinus tachycardiaLow voltage QRSCannot rule out Anterior infarct (cited on or before 12-MAR-2021)Abnormal ECGWhen compared with ECG of 22-OCT-2020 14:01,T wave inversion more evident in Anterior leadsConfirmed by Antonio Hoffman ([id number]) on 03/13/2021 1:42:58 [facility] COMPREHENSIVE METABOLIC [id number] 15:00:00 Test Item Value Reference Range Interpretation [...] hemolyzed EGFR (BEAKER) (test 22 mL/min/1.73 ESTIMA JOSEPH GFR IS code = 1092) sq m NOT ACCURATE CREATININE CLEARANCE IN PREDICTING GLOMERULAR FILTRATION RATE . ESTIMATED GFR I S NOT APPLICABLE FOR DIALYSIS PATIEN TS. Customer Care Voice Consultant ID - DBSpecimen moderately [id number] 14:59:00 Test Item Value Reference Range Interpretation Comments Lipase (test code = 158 U/L 8-78 H 3040-3) MADDIE (test code = MADDIE) Customer Care Voice Consultant ID - DBSpecimen moderately icteric Lab Interpretation (test Abnormal code = 48291-6) [facility] CenterLIPASE2021-05-27 14:59:00 Test Item Value Reference Range Interpretation Comments LIPASE (BEAKER) (test code = 749) 158 U/L 8-78 H Customer Care Voice Consultant ID - DBSpecimen moderately ictericPT/[id number] 14:49:00 Test Item Value Reference Range Interpretation Comments PROTIME (BEAKER) (test 16.0 seconds 11.9-14.2 H code = 759) INR (BEAKER) (test 1.33 See_Comment [Automat ed code = 370) message] The sy stem which generated this result transmitted reference [...] 2.5-3.5 for patients with mechanical heart valves.CBC W/PLT COUNT & AUTO DIFFERENTIAL 2021-03-12 14:41:00 Test Item Value Reference Range [...] 0-1 PERCENT (BEAKER) (test code = 2801) [id number] 00:00:00Ordered by an unspecified provider.[facility] CenterCYTO2021-03-26 11:52:00 Test Item Value Reference Range Interpretation Comments CYTO (test code = CYTO) RUN DATE: 01/09/21 [facility] LAB *LIVE* PAGE 1 RUN TIME: 1152 Specimen Inquiry RUN USER: INTERFACE PATIENT: DWAIN ESPINOSA LOC: MYLA #: [id number] AGE/SX: 50/F [facility] RE01/[facility]/21REG DR: Dru Platt MD : 66 BED: 1 DIS: 01/08/21 STATUS: DIS IN TLOC: SPEC #: [id number] RECD: 01/08/21 STATUS: CRISTELA REHao #: [id number] JAX: 01/07/21-[address]: Dru Platt MD ENTERED: 01/08/21 SP TYPE: CYTO OTHR DR: No Primary or Family Physician Self Referred Janneth March MD, Ayub MDORDERED: CELL BLOCK, THIN PREP TISSUES: ASCITES FLUID - ASCITES FLUID FINAL MICROSCOPIC DIAGNOSIS ASCITES FLUID, CYTOLOGIC EVALUATION (THINPREP AND CELL BLOCK): - NO MALIGNANT CELLS IDENTIFIED - DESCRIPTIVE DIAGNOSIS: REACTIVE MESOTHELIAL CELLS, MIXED ACUTE/CHRONIC INFLAMMATORY CELLS (MOSTLY NEUTROPHILS) AND HISTIOCYTES [facility] [address], [address] GROSS DESCRIPTION Received and labeled "Ascites", are 1100 ml of carlos fluid. The fluid is set in cytolyt solution for a Thin Prep slide preparation which is stained with Pap stain. A cell block is also performed. Signed SIGNATURE ON FILE Sukhwinder Coe uLis 01/09/21 1152 END OF REPORT [id number] 15:15:00 Test Item Value Reference Range Interpretation [...] H PHOSPHATASE (test code = ALKP) PROTHROMBIN [id number] 06:22:00 Test Item Value Reference Range Interpretation [...] and/or recurren t systemicemboliz ation. CBC W/AUTO [id number] 06:11:00 Test Item Value Reference Range Interpretation [...] 10 3/uL 0.0-0.1 N UR SMEAR EOSINOPHIL [id number] 16:07:00 Test Item Value Reference Range Interpretation Comments UR SMEAR EOSINOPHIL COUNT (test code NEGATIVE NEGATIVE = EOSCTU) BASIC METABOLIC [id number] 15:04:00 Test Item Value Reference Range Interpretation [...] L CA) UA RFLX MICR CULT IF [id number] 14:31:00 Test Item Value Reference Range Interpretation [...] Indication for culture: Suprapubic Pain- DUP VEIN [id number] 12:03:00 [facility] : 1970 Sex: FPatient Name: DWAIN ESPINOSA Unit No: [id number] EXAMS: CPT CODE: [id number] DUP VEIN KCAI 86844 Exam: Bilateral lower extremity venous Doppler ultrasound [...] Pallavi Peralta Probe: Trscr Dt/Tm: 01/07/2021 (1203) by:[email or web address] Electronic Signature Date/Time: 01/07/2021 (1203)Orig Print D/T: S: 01/07/2021 (1207) Name: DWAIN ESPINOSA [facility] [place] Phys: [place] [address] : 1970 Age: 50 Sex: [place] [id number] Loc: [place].ERIMCU Exam Date: 01/07/2021 Status: ADM IN PH: FAX: PAGE 1 Signed Report- US PARACENTESIS W IMAGE 2021-01-07 11:29:00 [facility] : 1970 Sex: FPatient Name: DWAIN ESPINOSA Unit No: [id number] EXAMS: CPT CODE: [id number] US PARACENTESIS W IMAGE 31269 ULTRASOUND-GUIDED PARACENTESIS DICTATION LOCATION: A1 History: New [...] Technologist: Genia Edwards Probe: Trscr Dt/Tm: 01/07/2021 (112) by:Anne Electronic Signature Date/Time: 01/07/2021 (112)Orig Print D/T: S: 01/07/2021 (1132) Name: DWAIN ESPINOSA [facility] Phys: [place] [address] : 1970 Age: 50 Sex: [place] [phone] Loc: JANAY Exam Date: 01/07/2021 Status: ADM IN PH: FAX: PAGE 1 Signed ReportMAGNESIUM 2021-01-07 07:48:00 Test Item Value Reference Range Interpretation Comments MAGNESIUM (test code = MAG) 2.0 mg/dL 1.8-2.4 N THYROID PROFILE [id number] 07:48:00 Test Item Value Reference Range Interpretation Comments T3 UPTAKE (test code = T3UP) 45.0 % 31.0-39.0 H T4 (THYROXINE) (test code = T4) 4.5 ug/dL 4.7-11.4 L T7 (FREE THYROXINE INDEX) (test 2.0 % 1.7-4.2 N code = T7) THYROID STIMULATING HORMONE (test 2.89 mIU/mL 0.36-3.74 N code = TSH) COMPREHENSIVE METABOLIC [id number] 04:37:00 Test Item Value Reference Range Interpretation [...] H PHOSPHATASE (test code = ALKP) LACTIC [id number] 04:37:00 Test Item Value Reference Range Interpretation Comments LACTIC ACID (test code = LACT) 1.9 mmol/L 0.4-2.0 N PROTHROMBIN [id number] 04:35:00 Test Item Value Reference Range Interpretation [...] and/or recurren t systemicemboliz ation. CBC W/AUTO [id number] 04:13:00 Test Item Value Reference Range Interpretation [...] BA#) 0.06 10 3/uL 0.0-0.1 N LACTIC [id number] 01:29:00 Test Item Value Reference Range Interpretation Comments LACTIC ACID (test 2.2 mmol/L 0.4-2.0 H Elevated L actate code = LACT) reported to the following Caregiver:Full Name/Title: KYLIE GARCIA RNby MJM, on 01/07/21, @ 012 9 LACTIC [id number] 22:09:00 Test Item Value Reference Range Interpretation Comments LACTIC ACID (test 2.2 mmol/L 0.4-2.0 H Elevated L actate code = LACT) reported to the following Careg iver:Full Name/Title: GRETA SCHULZ RN by JASBIR, on 01/06/21, @ 220 4 RN CHECKING TO SEE IF NEEDEDPROTHROMBIN [id number] 18:37:00 Test Item Value Reference Range Interpretation [...] and/or recurren t systemicemboliz ation. THROMBOPLASTIN TIME [id number] 18:37:00 Test Item Value Reference Range Interpretation Comments THROMBOPLASTIN TIME PARTIAL 40.6 SECONDS 25.1-36.5 H (test code = PTT) [id number] 18:06:00 Test Item Value Reference Range Interpretation [...] 0-100 N - CT ABD PELVIS W/O [id number] 16:18:00 [facility] : 1970 Sex: FPatient Name: DWAIN ESPINOSA Unit No: [id number] EXAMS: CPT CODE: [id number] CT ABD PELVIS W/O CONT 01755 Site ID: [id number] CLINICAL HISTORY: Liver failure, [...] by: Choco Hart MD CC: Kia Worley ACCOUNT MANAGER RELIEF; Eric Brito Jr, MD Technologist: Leta Negro; Jazzy Gilmore CTDI: 25.95 DLP: 1420.0 Trscr Dt/Tm: 01/06/2021 (1618) by:[email or web address] Electronic Signature Date/Time: 01/06/2021 (0866)Orig Print D/T: S: 01/06/2021 (0557) Name: [facility] FAMILIA Sparks MeirKia [address] : 1970 Age: 50 Sex: [place] [phone] Loc: [place].ERS Exam Date: 01/06/2021 Status: REG ER PH: FAX: PAGE 1 Signed ReportB-TYPE NATRIURETIC [id number] 15:14:00 Test Item Value Reference Range Interpretation Comments B-TYPE NATRIURETIC PEPTIDE (test 77 pg/mL 0-100 N code = BNP) BASIC METABOLIC [id number] 15:00:00 Test Item Value Reference Range Interpretation [...] DATE OF LAST MENSTRUAL PERIOD: 01/07/20LIVER FUNCTION [id number] 15:00:00 Test Item Value Reference Range Interpretation [...] = ALKP) DATE OF LAST MENSTRUAL PERIOD: 01/07/[id number] 15:00:00 Test Item Value Reference Range Interpretation Comments LIPASE (test code = LIP) 212 U/L 73-393 N DATE OF LAST MENSTRUAL PERIOD: 01/07/20HCG SERUM [id number] 15:00:00 Test Item Value Reference Range Interpretation Comments HCG SERUM QUAL (test code = HCGQL) NEGATIVE NEGATIVE DATE OF LAST MENSTRUAL PERIOD: 01/07/[id number] 15:00:00 Test Item Value Reference Range Interpretation Comments TROPONIN-I (test code = TROPI) < 0.02 ng/mL 0.00-0.07 N DATE OF LAST MENSTRUAL PERIOD: 01/07/20LACTIC [id number] 15:00:00 Test Item Value Reference Range Interpretation Comments LACTIC ACID (test 2.5 mmol/L 0.4-2.0 H Elevated L actate code = LACT) reported to the following Caregiver:Full Name/Title: JAKOB Diaz NCLAB.JQ, on 01/06/21, @ 150 0 Coronavirus 2018 nCoV [id number] 14:55:00 Test Item Value Reference Range Interpretation Comments Coronavirus 2019 Negative Negative This test h ad not been FDA nCoV Bedside cleared or appr [place]; This (test code = testhas been au thorized by [id number]) FDA under an E UA for use [...] Sharon ndments of 1987 (CLIA), BASIC METABOLIC [id number] 14:45:00 Test Item Value Reference Range Interpretation [...] DATE OF LAST MENSTRUAL PERIOD: 01/07/20LIVER FUNCTION [id number] 14:45:00 Test Item Value Reference Range Interpretation [...] 45-117 ALKP) DATE OF LAST MENSTRUAL PERIOD: 01/07/[id number] 14:45:00 Test Item Value Reference Range Interpretation Comments LIPASE (test code = LIP) U/L 73-393 DATE OF LAST MENSTRUAL PERIOD: 01/07/20HCG SERUM [id number] 14:45:00 Test Item Value Reference Range Interpretation Comments HCG SERUM QUAL (test code = HCGQL) NEGATIVE NEGATIVE DATE OF LAST MENSTRUAL PERIOD: 01/07/[id number] 14:45:00 Test Item Value Reference Range Interpretation Comments TROPONIN-I (test code = TROPI) ng/mL 0.00-0.07 DATE OF LAST MENSTRUAL PERIOD: 01/07/20CBC W/AUTO [id number] 14:33:00 Test Item Value Reference Range Interpretation [...] 3/uL 0.0-0.1 N - XR CHEST 1 [id number] 13:20:00 [facility] : 1970 Sex: FPatient Name: DWAIN ESPINOSA Unit No: [id number] EXAMS: CPT CODE: [id number] XR CHEST 1 V 21594 CHEST, SINGLE VIEW DICTATION LOCATION [id number]: Abdominal pain. A single view of the [...] Noel Bach Jr, MD CC: Kia Worley ACCOUNT MANAGER RELIEF; Eric Brito Jr, MD Technologist: Hina Richardson Fluoro Time: DAP (Gy m2): Air Kerma (mGy): Trscr Dt/Tm: 01/06/2021 (1320) by:Anne Electronic Signature Date/Time: 01/06/2021 (1320)Orig Print D/T: S: 01/06/2021 (1323) Name: DWAIN ESPINOSA [facility] [place] Phys: Kia Elizondo [address] : 1970 Age: 50 Sex: [place] [phone] Loc: [place].[facility] Exam Date: 01/06/2021 Status: REG ER PH: FAX: PAGE 1 Signed ReportHepatitis C [id number] 20:39:00 Test Item Value Reference Range Interpretation Comments HCV 3 The method used in this Genotype, test is RT-PCR and LiPA (test reversehybridiz ation (Line code = Probe) of the 5 ' UTR and 5777929) coreregion of t he HCV genome. The lucas lytical performance lance racteristics of thisassay frey ve been determined by mFoundry DiagnosticsInfe ctious Disease. The mo difications have not beencl eared or approved by the FDA. This assay has beenv alidated pursuant to the CLIA regulations and isused for clinical purpos es. For additional info rmation, please refer [email or web address] ion.[employer] /faq/HCVGenotyp ing(This link id being p rovided for informational/e ducational purposes only.) MADDIE (test Performing Lab code = MADDIE) *QDID [employer] [facility] [address] [place] [address] Arnie Phillips MD [facility] CenterActin (Smooth Muscle) Antibody, [id number] 01:39:00 Test Item Value Reference Interpretation Comments Range Anti-Smooth Muscle 23 U See Note: H Reference Range:<20 Ab (test code = NEGATI VE> OR ) = 20 POSITIVE Antibodies recognizing act in are the main componentof smo oth muscle antibodi es associated withautoimmune liver disease. Actin antibodie s arefound in approximately 7 5% of patients withautoimmune hepatitis (AIH) type 1, vhqpvwsxbndon86 % of patients with autoimmune cholangitis,mary bi mately 30% of patients with primary biliarycirrhosi s, and approximate ly 2% of healthy people.High barb ues are closely correlated with AIH type 1. MADDIE (test code = Performing Lab MADDIE) EZ CCM [facility] [address] [place] [address] Wilder Ochoa MD, PhD, BEATRICE Lab Interpretation Abnormal (test code = 45649-6) [facility] CenterBLOOD [id number] 18:00:00 Test Item Value Reference Range Interpretation Comments CULTURE (BEAKER) (test No growth in 5 days code = 1095) ANTI-MITOCHONDRIAL AB, REFLEX TO [id number] 10:14:00 Test Item Value Reference Range Interpretation Comments SCAN RESULT (test code = 5806016) Anti-Mitochondrial Ab, reflex to [id number] 10:14:00Scan ResultQUEST DIAGNOSTIC INCORPORATEDEmanuel Medical CenterMitochondrial Ab Screen 2020-10-25 12:18:00 Test Item Value Reference Range Interpretation Comments Anti-Mitocho NEGATIVE NEGATIVE This test was developed nd Abs (test and its analyti vasile code = performance 1386529) characteristics havebeen determined by [facility].It h as not been cleared or approved by FDA. This as say has been validatedp ursuant to the CLIA reg ulations and is used for clinical purposes. MADDIE (test Performing Lab code = MADDIE) EZ [facility] [place] [address] [place] [address] Wilder Ochoa MD, PhD, BEATRICE [facility] CenterMitochondrial Ab [id number] 12:18:00 Test Item Value Reference Range Interpretation Comments Mitochondrial Ab TNP See_Comment Test Not Titer (test code = Performed . 6004690) Screening test Negative or Not Detected. Titer notperformed. [Automated message] The system which generated this result transmitted reference range : <1:20. The reference range was not used to interpret this result as normal/abnormal . MADDIE (test code = Performing Lab MADDIE) [facility] [place] [address] [place] [address] Wilder Ochoa MD, PhD, BEATRICE [facility] CenterCeruloplasmin2021-01-09 11:45:00 Test Item Value Reference Range Interpretation Comments Ceruloplasmin (test code 27 mg/dL 18-53 = 20191208) MADDIE (test code = MADDIE) Performing Lab *BARB CCM [facility], [address] [place] [address] Dahiana Small MD [facility] C PCR, [id number] 22:54:00 Test Item Value Reference Range Interpretation Comments HCV PCR, Quantitative [id number] See_Comment H [Auto mated (test code = 41439-7) messag e] The system which generated this result transmitted reference range : <15 IU/mL. The reference range was not used to interpret this result as normal/abnormal . MADDIE (test code = MADDIE) This test uses a Real-Time Polymerase Chain Reaction (RT-PCR) methodology and was performed using [employer]IX[employer] Ampliprep/MARIXA TaqMan HCV test kit version 2.0 ([employer]). Reportable range for this assay is 15 - 100,000,000 IU per mL (1.18 - 8.00 Log IU/mL). Lab Interpretation Abnormal (test code = 72963-0) [facility] C PCR, [id number] 22:54:00 Test Item Value Reference Range Interpretation Comments HCV NUMERIC RESULT (BEAKER) [id number] IU/mL <15 H (test code = 2700) This test uses a Real-Time Polymerase Chain Reaction (RT-PCR) methodology and was performed using [employer] Ampliprep/MARIXA TaqMan HCV test kit version 2.0 ([employer]).Reportable range for this assay is 15 - 100,000,000 IU per mL (1.18 - 8.00 Log IU/mL).U/S, ABDOMINAL, [id number] 17:32:00Labs to be ordered:->Body Fluid Culture (w/Gram Stain, C\\T\\S) Labs to be ordered:->Cell Count Labs to be ordered:->Glucose+LDH+Protein Labs to be ordered:->Cytology Reason for exam:->diagnostic para for new ascites in pt w/ cirrhosisKA[facility] : 1970 Sex: FFINAL REPORT Limited abdominal ultrasound CLINICAL HISTORY: Ascites F INDINGS: A limited abdominal ultrasound was performed and only a trace amount of fluid was seen. Therefore a paracentesis was not performed. Signed: Alex Cervantes MDReport Verified Date/Time: 10/24/2020 17:32:34 Reading Location: [address] Ultrasound Reading Room US abdomen [id number] 17:32:00Interface, External Ris In - 10/24/2020 5:34 PM CSTFINAL REPORT Limited abdominal ultrasound CLINICAL HISTORY: Ascites FINDINGS: A limited abdominal ultrasound was performed and only a trace amount of fluid was seen. Therefore a paracentesis was not performed. Signed: Alex Cervantes MDReport Verified Date/Time: 10/24/2020 17:32:34 Reading Location: [facility] [id number] Ultrasound Reading [facility]PREH[facility] METABOLIC PANEL 2020-10-24 03:23:00 Test Item Value [...] S NOT APPLICABLE FOR DIALYSIS PATIEN TS. Customer Care Voice Consultant ID - PIAYA LSpecimen slightly ictericPROTHROMBIN TIME/[id number] 03:08:00 Test Item Value Reference Range Interpretation [...] mechanical heart valves.CBC W/PLT COUNT & AUTO [id number] 02:45:00 Test Item Value Reference Range Interpretation [...] 0-1 PERCENT (BEAKER) (test code = 2801) [id number] 12:56:00 Test Item Value Reference Range Interpretation Comments Ferritin (test code = 71.00 ng/mL 5-275 2276-4) MADDIE (test code = MADDIE) Customer Care Voice Consultant ID - AAHAMID Lab Interpretation (test Normal code = 76141-4) [facility] Center[facility], [id number] 12:56:00 Test Item Value Reference Range Interpretation Comments Folate (test code = 12.30 ng/mL See_Comment [Automa joseph 2284-8) message] The system which generated this result transmit joseph reference range : >=7.00. The reference range was not used to interpret this result as normal/abnormal . MADDIE (test code = MADDIE) Customer Care Voice Consultant ID - AAHAMID Lab Interpretation Normal (test code = 68063-9) [facility] CenterFERRITIN2021-01-07 12:56:00 Test Item Value Reference Range Interpretation Comments FERRITIN (BEAKER) (test code = 71.00 ng/mL 5.00-275.00 361) Customer Care Voice Consultant ID - AAHAMIDFOLATE, [id number] 12:56:00 Test Item Value Reference Range Interpretation Comments FOLATE (BEAKER) (test code = 362) 12.30 ng/mL >=7.00 Customer Care Voice Consultant ID - AAHAMIDAnti-Nuclear Antibody (LUCAS)2020-10-23 10:30:00 Test Item Value Reference Range Interpretation Comments LUCAS (test code = 48561-3) Negative Negative MADDIE (test code = MADDIE) Test performed by IFA method.Test performed by IFA method. Lab Interpretation (test Normal code = 83172-2) [facility] CenterANTI-NUCLEAR ANTIBODY (LUCAS)2020-10-23 10:30:00 Test Item Value Reference Range Interpretation Comments ANTI-NUCLEAR ANTIBODY (LUCAS) (BEAKER) Negative Negative (test code = 418) Test performed by IFA method.Test performed by IFA method.Hepatitis panel, acute 2020-10-23 10:06:00 Test Item Value Reference Range Interpretation Comments Hep A IgM (test code = Nonreactive Nonreactive 02260-1) Hep B C IgM (test code = Nonreactive Nonreactive 05797-0) Hepatitis C Ab (test Reactive Nonreactive A code = 29665-0) HBsAg Screen (test code Nonreactive Nonreactive = 5195-3) MADDIE (test code = MADDIE) Customer Care Voice Consultant ID - HOUSTON M Lab Interpretation (test Abnormal code = 82533-9) [facility] CenterHEPATITIS PANEL, [id number] 10:06:00 Test Item Value Reference Range Interpretation Comments HEPATITIS A IGM ANTIBODY (BEAKER) Nonreactive Nonreactive (test code = 498) HEPATITIS B CORE IGM ANTIBODY Nonreactive Nonreactive (BEAKER) (test code = 645) HEPATITIS C ANTIBODY (BEAKER) Reactive Nonreactive A (test code = 367) HEPATITIS B SURFACE ANTIGEN (2) Nonreactive Nonreactive (BEAKER) (test code = 2585) Customer Care Voice Consultant ID - HOUSTON MVitamin [id number] 09:44:00 Test Item Value Reference Range Interpretation Comments Vitamin B12 (test code = 1494 pg/mL 213-816 H 2132-9) MADDIE (test code = MADDIE) Customer Care Voice Consultant ID - HOUSTON M Lab Interpretation (test Abnormal code = 76047-5) [facility] CenterVITAMIN [id number] 09:44:00 Test Item Value Reference Range Interpretation Comments VITAMIN B12 (BEAKER) (test code = 1494 pg/mL 213-816 H 774) Customer Care Voice Consultant ID - HOUSTON MALPHA FETOPROTEIN (AFP), TUMOR [id number] 08:27:00 Test Item Value Reference Range Interpretation Comments ALPHA-FETOPROTEIN (BEAKER) (test code < ng/mL <10.0 = 1094) Customer Care Voice Consultant ID - HOUSTON MHepatitis A antibody, [id number] 07:42:00 Test Item Value Reference Range Interpretation Comments Hep A IgG (test code = Reactive Nonreactive A 31000-4) MADDIE (test code = MADDIE) Customer Care Voice Consultant RIGOBERTO Doll Lab Interpretation (test Abnormal code = 87213-6) [facility] CenterHEPAT[facility]IS A ANTIBODY, [id number] 07:42:00 Test Item Value Reference Range Interpretation Comments HEPATITIS A IGG ANTIBODY (BEAKER) Reactive Nonreactive A (test code = 2797) Customer Care Voice Consultant RIGOBERTO CONRAD MCOMPREHENSIVE METABOLIC [id number] 07:41:00 Test Item Value Reference Range Interpretation [...] S NOT APPLICABLE FOR DIALYSIS PATIEN TS. Customer Care Voice Consultant RIGOBERTO CONRAD MSpecimen slightly [id number] 07:11:00 Test Item Value Reference Range Interpretation Comments MAGNESIUM (BEAKER) (test code = 1.8 mg/dL 1.6-2.6 627) Customer Care Voice Consultant ID - HOUSTON MHepatitis B core antibody, [id number] 07:01:00 Test Item Value Reference Range Interpretation Comments Hep B Core Total Ab Nonreactive Nonreactive (test code = 29769-7) MADDIE (test code = MADDIE) Customer Care Voice Consultant ID - HOUSTON M Lab Interpretation (test Normal code = 43519-0) [facility] CenterHEPAT[facility]IS B CORE ANTIBODY, [id number] 07:01:00 Test Item Value Reference Range Interpretation Comments HEPATITIS B CORE TOTAL ANTIBODY Nonreactive Nonreactive (BEAKER) (test code = 497) Customer Care Voice Consultant ID - HOUSTON Rosa M, TIBC, % sat. (without ferritin)2020-10-23 06:37:00 Test Item Value Reference Range Interpretation Comments Iron (test code = 2498-4) 129.0 ug/dL 40-160 TIBC (test code = 2500-7) 178 ug/dL 250-450 L Iron % Saturation (test 72 % 20-55 H code = 2502-3) MADDIE (test code = MADDIE) Customer Care Voice Consultant ID - HOUSTON M Lab Interpretation (test Abnormal code = 61412-8) [facility] CenterIRON, TIBC, % SAT. (WITHOUT FERRITIN)2020-10-23 06:37:00 Test Item Value Reference Range Interpretation Comments IRON (BEAKER) (test code = 547) 129.0 ug/dL 40.0-160.0 TOTAL IRON BINDING CAPACITY 178 ug/dL 250-450 L (BEAKER) (test code = 769) IRON % SATURATION (2) (BEAKER) 72 % 20-55 H (test code = 2590) Customer Care Voice Consultant ID - HOUSTON GOkhlb-9-fcakgrxigrv2167-01-07 06:36:00 Test Item Value Reference Range Interpretation Comments A-1 Antitrypsin (test code 102.40 mg/dL 90-200 = 1825-9) MADDIE (test code = MADDIE) Customer Care Voice Consultant ID - HOUSTON M Lab Interpretation (test Normal code = 61180-2) [facility] CenterALPHA-1-[id number] 06:36:00 Test Item Value Reference Range Interpretation Comments ALPHA-1 ANTITRYPSIN (BEAKER) 102.40 mg/dL 90.00-200.00 (test code = 502) Customer Care Voice Consultant ID - HOUSTON MPROTHROMBIN TIME/[id number] 06:21:00 Test Item Value Reference Range Interpretation [...] is2.5-3.5 for patients wiht mechanical heart valves.Reticulocyte [id number] 05:50:00 Test Item Value Reference Range Interpretation Comments % Retic (test code = 4.6 % 0.5-1.7 H 35447-6) MADDIE (test code = MADDIE) Customer Care Voice Consultant ID - 6000 Lab Interpretation (test Abnormal code = 91471-0) [facility] CenterRETICULOCYTE [id number] 05:50:00 Test Item Value Reference Range Interpretation Comments RETICULOCYTE COUNT PCT (BEAKER) (test 4.6 % 0.5-1.7 H code = 575) Customer Care Voice Consultant ID - 6000Hemoglobin and [id number] 05:49:00 Test Item Value Reference Range Interpretation Comments Hemoglobin (test code = 9.0 See_Comment L [Au tomated message] 786-4) The system GalaDo generated this result transmitted ref erence range: 11.2 - 1 5.7 GM/DL. The refe rence range was not u sed to interpret this result as normal/abnor mal. Hematocrit (test code = 30.0 % 34.1-44.9 L 4544-3) Lab Interpretation (test Abnormal code = 95858-4) [facility] CenterCBC W/PLT COUNT & AUTO [id number] 05:49:00 Test Item Value Reference Range Interpretation [...] (BEAKER) (test code = 2801) HEMOGLOBIN AND [id number] 05:49:00 Test Item Value Reference Range Interpretation Comments HEMOGLOBIN (BEAKER) (test code = 9.0 GM/DL 11.2-15.7 L 410) HEMATOCRIT (BEAKER) (test code = 30.0 % 34.1-44.9 L 411) U/S, ABDOMINAL, WITH [id number] 21:58:00Reason for exam:->ascites, [facility]Name[facility] : 1970 Sex: [...] hypertension.Patent main portal vein.Small abdominal ascites.Signed: Mila Garcia MDReport Verified Date/Time: 10/22/2020 21:58:54 US abdominal with [id number] 21:58:00Interface, External Ris In - 10/23/2020 2:18 [...] main portal vein.Small abdominal ascites. Signed: Mila Garcia MDReport Verified Date/Time: 10/22/2020 21:58:54 [facility]2020-10-22 20:15:00 Test Item Value Reference Range Interpretation Comments SARS-COV2/RT-PCR Negative Not Detected, (test code = Negative, See 18494-2) external report for linked test SARS-COV-2 [facility] (test code = 18478-3) MADDIE (test code = Negative result for [...] of the Act. Fact Sheet for Healthcare Providers:https://www.[employer]Utopia/sites/default/f christina/product/documents/F act_Sheet_HC_Providers_L oxw_QUUJ-VaI-6.pdf Fact Sheet for Healthcare Patients:https://www.Telanetix/sites/default/fi les/product/documents/Fa ct_Sheet_Patients_Lyra_S ARS-CoV-2.pdf Performing Laboratory:[facility] [place], [place] [address] [place], [place] [address]ARS-COV2/RT-PCR ([facility])2020-10-22 20:15:00 Test Item Value Reference Range Interpretation Comments SARS-COV2/RT-PCR (test Negative Not Detected, Negative, code = 8746828) See external report for linked test SARS-COV-2 PERFORMING LAB [facility] (test code = 0954094) Negative result for this test determines that [...] 564(g) of the Act.Fact Sheet for Healthcare Providers:https://www.Zenops/sites/default/files/product/documents/Fact_Shee y_RQ_Cpdvqcalk_Ftym_YTSN-WtS-2.pdfFact Sheet for Healthcare Patients:https://www.Zenops/sites/default/files/product/ documents/Clry_Jniwn_Vnyygyaf_Gdzq_WGYU-XnD-6.pdfPerforming Laboratory:[facility], [place] [address]SXPCBTHUSM W/ REFLEX URINE [id number] 17:46:00 Test Item Value Reference Range Interpretation [...] = 516) SOURCE(BEAKER) (test code = 2795) Customer Care Voice Consultant ID - techRAD, CHEST, 1 VIEW, NON [id number] 15:35:00Reason for exam:->abd painShould this be performed at the bedside?->Yes [facility] : 1970 Sex: FFINAL REPORT CHEST AP PORTABLE History provided: Abdominal pain Heart size magnified by projection. Lungs grossly clear and vascularity normal. Signed: Huang Garcia Verified Date/Time: 10/22/2020 15:35:51 Reading Location: [facility] Radiology Reading Room XR chest 1 view portable / [id number] 15:35:00Interface, External Ris In - 10/22/2020 3:38 PM CSTFINAL REPORT CHEST AP PORTABLE History provided: Abdominal pain Heart size magnified by projection. Lungs grossly clear and vascularity normal. Signed: Huang Garcia Verified Date/Time: 10/22/2020 15:35:51 Reading Location: [facility] Radiology Reading Room [facility] ([facility] [place]2020-10-22 14:52:00 Test Item Value Reference Range Interpretation Comments Troponin I (test code = 0.01 ng/mL 0-0.03 34424-3) MADDIE (test code = MADDIE) Troponin I [...] ADMIN Lab Interpretation (test Normal code = 51562-0) [facility] [id number] 14:52:00 Test Item Value Reference Range Interpretation [...] failure, acidosis, acute neurological disease, and persistent tachyarrhythmia.Customer Care Voice Consultant ID - ADMINBASIC METABOLIC PANEL 2020-10-22 14:48:00 Test Item Value Reference Range Interpretation [...] S NOT APPLICABLE FOR DIALYSIS PATIEN TS. Customer Care Voice Consultant ID - ADMINSpecimen slightly ictericHEPATIC FUNCTION [id number] 14:48:00 Test Item Value Reference Range Interpretation [...] code = 61 U/L 6-55 H 347) Customer Care Voice Consultant ID - ADMINSpecimen slightly ictericCBC W/PLT COUNT & AUTO [id number] 14:28:00 Test Item Value Reference Range Interpretation [...] % 0-1 PERCENT (BEAKER) (test code = 5291)
[2021-04-16] MEDS ORDERED: NA CHLORIDE 0.9% 500 ML ONE (05:51)
[2021-04-16] MEDS ORDERED: CEFTRIAXONE/SWI 1gm 1 GM/10 ML SYR ONE (05:51)
[2021-04-16 05:53] LABS: Basophils % 0.1 % (0-1.3); Hematocrit 26.3 % (36.0-45.0); Lymphocytes % 9.7 % (15.3-44.8); MPV 8.4 fL (7.6-11.3); RBC Red Blood Cell Count 3.04 M/uL (3.86-4.86)
[2021-04-16 06:02] LABS: Urine Blood 2+ (Negative); Urine Glucose Negative (Negative); Urine Protein 2+ (Negative)
[2021-04-16 06:07] LABS: Protime INR 1.64
[2021-04-16 06:11] LABS: ALT/SGPT 32 U/L (12-78); AST/SGOT 59 U/L (15-37); Alkaline Phosphatase 90 U/L (45-117); BUN Blood Urea Nitrogen 10 mg/dL (7-18); Bicarbonate 26 mmol/L (21-32); Bilirubin Direct 1.8 mg/dL (0-0.2); Bilirubin Total 4.4 mg/dL (0.2-1.0); Glucose Level 82 mg/dL (74-106); NT PRO-BNP 1414 pg/mL (<125); Potassium 3.6 mmol/L (3.5-5.1); Protein, Total 5.3 g/dL (6.4-8.2); Sodium Level 143 mmol/L (136-145); Troponin (Emerg Dept Use Only) < 0.02 ng/mL (0.0-0.045)
[2021-04-16 06:13] LABS: Magnesium 1.4 mg/dL (1.8-2.4)
--- NOTE | 2021-04-16 06:45 | ER ---
Nurse's Notes [facility] Name: Lorena Hansen Age: 51 yrs Sex: Female : 1970 Arrival Date: 04/16/2021 Time: 05:01 Bed 6 Private MD: Diagnosis: Hepatic failure, unspecified with coma-hepatic encephalopathy Presentation: 04/16 05:01 Chief complaint: EMS states: Boyfriend reported pt has been altered. Reported to EMS ea that she has been taking her lactulose but is still confused. Coronavirus screen: At this time, the client does not indicate any symptoms associated with coronavirus-19. Ebola Screen: No symptoms or risks identified at this time. Initial Sepsis Screen: Does the patient meet any 2 criteria? No. Patient's initial sepsis screen is negative. Does the patient have a suspected source of infection? No. Patient's initial sepsis screen is negative. Risk Assessment: Do you want to hurt yourself or someone else? Patient reports no desire to harm self or others. Onset of symptoms. 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 - Social history:: Smoking status: Patient denies any tobacco usage or history of. - Family history:: not pertinent. Screenin:28 Abuse screen: Denies threats or abuse. Nutritional screening: No deficits noted. ea Tuberculosis screening: No symptoms or risk factors identified. Fall Risk IV access (20 points). Assessment: 05:05 General: Appears in no apparent distress. Behavior is crying. Pain: Unable to use pain ea scale. FLACC scale score is 2 out of 10. Neuro: Level of Consciousness is confused, Oriented to none. Respiratory: Airway is patent Respiratory effort is even, unlabored, Respiratory pattern is regular, symmetrical. Derm: Skin is pink, warm \T\ dry. 07:44 Reassessment: No changes from previously documented assessment. Patient and/or family tw2 updated on plan of care and expected duration. Pain level reassessed. General: Behavior is pt moaning at random times. . Neuro: Level of Consciousness is confused, Oriented to none. Respiratory: Airway is patent Respiratory pattern is regular, symmetrical. Vital Signs: 05:01 BP 120 / 68; Pulse 108; Resp 19; Temp 99.8; Pulse Ox 97% on R/A; Weight 90.72 kg; ea Height 5 ft. 5 in. (165.10 cm); 06:13 BP 124 / 74; Pulse 99; Resp 18; Pulse Ox 99% ; jb4 07:43 BP 144 / 87; Pulse 115; Resp 18; Pulse Ox 100% on R/A; tw2 08:40 BP 136 / 78; Pulse 104; Resp 17; Pulse Ox 99% on R/A; tw2 09:40 BP 132 / 83; Pulse 106; Resp 17; Pulse Ox 99% on R/A; tw2 10:40 BP 138 / 88; Pulse 108; Resp 17; Pulse Ox 99% on R/A; tw2 11:39 BP 143 / 91; Pulse 108; Resp 17; Pulse Ox 100% on R/A; tw2 05:01 Body Mass Index 33.28 (90.72 kg, 165.10 cm) ea ED Course: 05:01 Patient arrived in ED. ea 05:05 Triage completed. ea 05:09 Edin Bolden MD is Attending Physician. ma2 05:27 Alicia Stevenson, DAYNA is Primary Nurse. ea 05:28 Inserted saline lock: 24 gauge in left wrist, using aseptic technique. Blood collected. ea 05:28 Patient has correct armband on for positive identification. Bed in low position. Call ea light in reach. Side rails up X2. 05:28 Arm band placed on right wrist. Patient placed in an exam room, on a stretcher, on ea pulse oximetry. 05:57 Straight cath inserted, using sterile technique, 16 Fr. Specimen obtained. Returned ea carlos urine. Patient tolerated well. 06:12 XRAY Chest (1 view) In Process Unspecified. EDMS 06:44 Krish López is Hospitalizing Provider. ma2 06:57 CT Head Brain wo Cont In Process Unspecified. EDMS 07:40 Primary Nurse role handed off by Alicia Stevenson, RN tw2 07:40 Radha Pittman, RN is Primary Nurse. tw2 11:41 No provider procedures requiring assistance completed. Patient admitted, IV remains in tw2 place. Administered Medications: 05:56 Drug: NS 0.9% 500 ml Route: IV; Rate: 75 ml/hr; Site: left wrist; ea 11:41 Follow up: IV Status: Infusion continued upon admission tw2 05:57 Drug: Rocephin (cefTRIAXone) 1 grams Route: IV; Rate: calculated rate; Site: left wrist;ea 07:34 Drug: Lactulose 30 grams Volume: 45 ml; Route: PO; tw2 10:49 Follow up: Response: No adverse reaction tw2 Outcome: 06:44 Decision to Hospitalize by Provider. ct2 11:41 Admitted to ER Hold. Please see [facility] for further documentation. tw2 11:41 Condition: stable 11:41 Instructed on the need for admit. 14:06 Patient left the ED. em1 Signatures: Dispatcher [employer] Nick Whitman em1 Radha Pittman RN RN 2 Song Florian RN RN jb4 Alicia Stevenson RN RN Edin Bolden MD MD ct2
--- NOTE | 2021-04-16 06:45 | EDPHYS ---
Physician Documentation [facility] Name: Lorena Hansen Age: 51 yrs Sex: Female : 1970 Arrival Date: 04/16/2021 Time: 05:01 Bed 6 Private MD: ED Physician Edin Bolden HPI: 04/16 05:15 This 51 yrs old Female presents to ER via EMS with complaints of altered, ma2 sleepy. 05:15 The patient presents with decreased mental status. Onset: The symptoms/episode ma2 began/occurred gradually, 2 day(s) ago. Associated signs and symptoms: Pertinent negatives: ataxia, confusion, diaphoresis, diarrhea. Current symptoms: In the emergency department the patient's symptoms are unchanged from the initial presentation. The patient has experienced similar episodes in the past, hepatic encephalopathy. 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 - Social history:: Smoking status: Patient denies any tobacco usage or history of. - Family history:: not pertinent. ROS: 05:15 Constitutional: Negative for fever, chills, and weight loss. ma2 05:15 All other systems are negative. 05:15 Unable to obtain ROS due to altered mental status. Exam: 05:15 Head/Face: Normocephalic, atraumatic. Eyes: Pupils equal round and reactive to light, ma2 extra-ocular motions intact. Lids and lashes normal. Conjunctiva and sclera are non-icteric and not injected. Cornea within normal limits. Periorbital areas with no swelling, redness, or edema. ENT: Nares patent. No nasal discharge, no septal abnormalities noted. Tympanic membranes are normal and external auditory canals are clear. Oropharynx with no redness, swelling, or masses, exudates, or evidence of obstruction, uvula midline. Mucous membranes moist. Neck: Trachea midline, no thyromegaly or masses palpated, and no cervical lymphadenopathy. Supple, full range of motion without nuchal rigidity, or vertebral point tenderness. No Meningismus. Chest/axilla: Normal chest wall appearance and motion. Nontender with no deformity. No lesions are appreciated. Cardiovascular: Regular rate and rhythm with a normal S1 and S2. No gallops, murmurs, or rubs. Normal PMI, no JVD. No pulse deficits. Respiratory: Lungs have equal breath sounds bilaterally, clear to auscultation and percussion. No rales, rhonchi or wheezes noted. No increased work of breathing, no retractions or nasal flaring. Abdomen/GI: Soft, non-tender, with normal bowel sounds. No distension or tympany. No guarding or rebound. No evidence of tenderness throughout. Skin: Warm, dry with normal turgor. Normal color with no rashes, no lesions, and no evidence of cellulitis. MS/ Extremity: Pulses equal, no cyanosis. Neurovascular intact. Full, normal range of motion. Neuro: sleepy samnolent arousable to painfull stimmulus, uncooperative w exam, PEERAl moving all extrememties Vital Signs: 05:01 BP 120 / 68; Pulse 108; Resp 19; Temp 99.8; Pulse Ox 97% on R/A; Weight 90.72 kg; ea Height 5 ft. 5 in. (165.10 cm); 06:13 BP 124 / 74; Pulse 99; Resp 18; Pulse Ox 99% ; jb4 07:43 BP 144 / 87; Pulse 115; Resp 18; Pulse Ox 100% on R/A; tw2 08:40 BP 136 / 78; Pulse 104; Resp 17; Pulse Ox 99% on R/A; tw2 09:40 BP 132 / 83; Pulse 106; Resp 17; Pulse Ox 99% on R/A; tw2 10:40 BP 138 / 88; Pulse 108; Resp 17; Pulse Ox 99% on R/A; tw2 11:39 BP 143 / 91; Pulse 108; Resp 17; Pulse Ox 100% on R/A; tw2 05:01 Body Mass Index 33.28 (90.72 kg, 165.10 cm) ea MDM: 05:10 Patient medically screened. [facility] 05:15 Differential Diagnosis: electrolyte abnormality, hypoglycemia, overdose, pneumonia, ma2 volume depletion. 06:43 Data reviewed: vital signs, nurses notes. Counseling: I had a detailed discussion with ma2 the patient and/or guardian regarding: the historical points, exam findings, and any diagnostic results supporting the discharge/admit diagnosis, the presence of at least one elevated blood pressure reading (>120/80) during this emergency department visit, the need for outpatient follow up. Response to treatment: the patient's symptoms have markedly improved after treatment. 04/16 05:11 Order name: AMMONIA; Complete Time: 06:42 ma2 04/16 05:11 Order name: Basic Metabolic Panel; Complete Time: 06:42 ma2 04/16 05:11 Order name: CBC with Diff ma2 04/16 05:11 Order name: LFT's; Complete Time: 06:42 oh2 04/16 05:11 Order name: Magnesium; Complete Time: 06:42 ma2 04/16 05:11 Order name: NT PRO-BNP; Complete Time: 06:42 ma2 04/16 05:11 Order name: PT-INR; Complete Time: 06:42 oh2 04/16 05:11 Order name: Troponin (emerg Dept Use Only); Complete Time: 06:42 oh2 04/16 06:02 Order name: Urine Dipstick-Ancillary; Complete Time: 06:42 [facility] 04/16 06:52 Order name: Manual Differential EDIL 04/16 10:48 Order name: Blood Culture EDIL 04/16 10:49 Order name: Urinalysis EDIL 04/16 10:49 Order name: Ammonia EDIL 04/16 10:49 Order name: Ammonia EDIL 04/16 05:11 Order name: XRAY Chest (1 view) oh2 04/16 05:11 Order name: EKG; Complete Time: 05:13 ma2 04/16 05:11 Order name: Cardiac monitoring; Complete Time: 05:57 ma2 04/16 05:11 Order name: CT Head Brain wo Cont ma2 04/16 10:48 Order name: Physical Therapy Consult EDIL 04/16 10:48 Order name: Clear Liquid EDMS 04/16 10:49 Order name: Patient Safety Orders EDMS 04/16 10:49 Order name: Ammonia EDMS 04/16 10:49 Order name: Ammonia EDMS 04/16 10:49 Order name: CBC with Automated Diff EDMS 04/16 10:49 Order name: CBC with Automated Diff EDMS 04/16 10:49 Order name: Comprehensive Metabolic Panel [facility] 04/16 10:49 Order name: Comprehensive Metabolic Panel [facility] 04/16 05:11 Order name: EKG - Nurse/Tech; Complete Time: 05:57 oh2 04/16 05:11 Order name: IV Saline Lock; Complete Time: 05:57 oh2 04/16 05:11 Order name: Labs collected and sent; Complete Time: 05:28 oh2 04/16 05:11 Order name: O2 Per Protocol; Complete Time: : oh2 04/16 05:11 Order name: O2 Sat Monitoring; Complete Time: 05:57 oh2 04/16 05:11 Order name: Urine Dipstick-Ancillary (obtain specimen); Complete Time: : oh2 04/16 05:11 Order name: Straight Cath - Urine; Complete Time: : ma2 Administered Medications: 05:56 Drug: NS 0.9% 500 ml Route: IV; Rate: 75 ml/hr; Site: left wrist; ea 11:41 Follow up: IV Status: Infusion continued upon admission tw2 05:57 Drug: Rocephin (cefTRIAXone) 1 grams Route: IV; Rate: calculated rate; Site: left wrist;ea 07:34 Drug: Lactulose 30 grams Volume: 45 ml; Route: PO; tw2 10:49 Follow up: Response: No adverse reaction tw2 Disposition Summary: 04/16/21 06:44 Hospitalization Ordered Hospitalization Status: Inpatient Admission ma2 Provider: Krish López [facility] ma2 Condition: Stable [facility] Problem: new ma2 Symptoms: are unchanged oh2 Bed/Room Type: Standard [facility] Room Assignment: [facility](04/16/21 13:25) Diagnosis - Hepatic failure, unspecified with coma - hepatic encephalopathy ma2 Forms: - Medication Reconciliation Form oh2 - SBAR form oh2 Signatures: Dispatcher [employer] Tory Hannon RN RN dw Wise, Tara, RN RN 2 Alicia Stevenson RN RN ea Alzahri, Mohammad, MD MD [facility] Corrections: (The following items were deleted from the chart) 13:25 06:44 ma2 dw
[2021-04-16 06:52] LABS: Blood Morphology Comment NOTED (NOT SEEN); Platelet Estimate DECR; Polychromasia SLIGHT
[2021-04-16] MEDS ORDERED: LACTULOSE 20 GM/30 ML UCUP ONE (07:32)
--- NOTE | 2021-04-16 08:35 | RAD REPORT ---
EXAM DESCRIPTION: CT - Head Brain Wo Cont - 04/16/2021 6:57 am CLINICAL HISTORY: CONFUSED Headache, drowsiness COMPARISON: Head Brain Wo Cont dated 03/23/2021; Head Brain Wo Cont dated 12/07/2020 TECHNIQUE: All CT scans are performed using dose optimization technique as appropriate and may inclu de automated exposure control or mA/KV adjustment according to patient size. FINDINGS: No intracranial hemorrhage, hydrocephalus or extra-axial fluid collection.No areas of brai n edema or evidence of midline shift. The paranasal sinuses and mastoids are clear. The calvarium is intact. IMPRESSION: No acute intracranial abnormality.
--- NOTE | 2021-04-16 09:18 | RAD REPORT ---
EXAM DESCRIPTION: RAD - Chest Single View - 04/16/2021 6:12 am CLINICAL HISTORY: ams Chest pain. COMPARISON: Chest Single View dated 03/25/2021; Chest Single View dated 03/24/2021; Chest Single View da joseph 03/24/2021; Chest Single View dated 03/24/2021 FINDINGS: Portable technique limits examination quality. Mild to moderate bilateral pulmonary opacities are noted, likely representing pulmonary edema. The he art is moderately to significantly enlarged. No displaced fractures. IMPRESSION: Mild to moderate CHF versus volume overload pattern.
[2021-04-16] MEDS ORDERED: ONDANSETRON 4 MG/2 ML VIAL IV PRN (10:47)
[2021-04-16 11:22] VITALS: BMI 24.1
[2021-04-16 14:45] VITALS: O2SAT 100
--- NOTE | 2021-04-16 15:29 | P.HP ---
Certification for Inpatient Patient admitted to: Inpatient With expected LOS: >2 Midnights Practitioner: I am a practitioner with admitting privileges, knowledge of patient current condition, hospital course, and medical plan of care. Services: Services provided to patient in accordance with Admission requirements found in Title 42 Section 412.3 of the Code of Federal Regulations Patient History Date of Service: 04/16/21 Reason for admission: Altered mental status History of Present Illness: 51-year-old woman with a history of advanced liver cirrhosis, multiple hospitalizations for hepatic encephalopathy was brought in by her boyfriend with a complaint of altered mental status. Boyfriend reported patient has been compliant with her lactulose. Her ammonia level in the ED is 84. UA is negative for UTI, hemoglobin 8.7, platelets 67. Patient was unresponsive during my examination in the ED. Head CT is negative. She is admitted for further management. Allergies ondansetron [From Zofran] Allergy (Verified 06/14/20 21:06) Anaphylaxis Penicillins Allergy (Verified 04/16/21 11:08) Anaphylaxis Home Medications: Amlodipine [Norvasc*] 5 mg PO DAILY #30 tab 02/20/21 Furosemide [Lasix*] 40 mg PO BID #60 tab 02/20/21 Folic Acid 1 mg PO DAILY #90 tablet 03/28/21 Lactulose [Cephulac*] 45 ml PO TID #4000 ml 03/28/21 Metoprolol Tartrate [Lopressor*] 25 mg PO BID 6AM 6PM #60 tab 03/28/21 Multivit with Iron,Minerals [Complete Senior] 1 each PO DAILY #90 tablet 03/28/21 Pantoprazole [Protonix Tab*] 40 mg PO Q12H #60 tab 03/28/21 Rifaximin [Xifaxan] 550 mg PO BID #60 03/28/21 Spironolactone [Aldactone*] 25 mg PO BID #60 tab 03/28/21 Thiamine HCl 100 mg PO DAILY #90 tablet 03/28/21 - Past Medical/Surgical History Diabetic: No -: Advanced liver cirrhosis -: History of GERD with ulcer -: Diastolic CHF -: History of Esophageal varices -: Methamphetamine abuse -: Noncompliance with medication -: Recurrent admissions for hepatic encephalopathy -: Endoscopy -: GB Sx Psychosocial/ Personal History: Unknown - Family History Mother -: Cancer Father -: Heart disease - Social History Smoking Status: Unknown if ever smoked Alcohol use: No CD- Drugs: No Caffeine use: No Physical Examination - Vital Signs Temperature: 100.3 F Blood Pressure: 146/73 Pulse: 102 Respirations: 18 Pulse Ox (%): 98 - Physical Exam General: In no apparent distress, Unresponsive HEENT: Mucous membr. moist/pink, Scleral icterus Neck: Supple, JVD not distended Respiratory: Clear to auscultation bilaterally, Normal air movement Cardiovascular: No edema, Other (Tachycardia, regular rhythm.) Gastrointestinal: Normal bowel sounds, Soft and benign, Non-distended, No tenderness Musculoskeletal: No swelling, No tenderness Integumentary: No rashes Neurological: Other (Unresponsive, moves all extremities spontaneously.) - Studies Laboratory Data (last 24 hrs) 04/16/21 05:20: PT 18.9 H, INR 1.64 04/16/21 05:20: WBC 10.80, Hgb 8.7 L, Hct 26.3 L, Plt Count 67 L 04/16/21 05:20: Sodium 143, Potassium 3.6, BUN 10, Creatinine 0.67, Glucose 82, Magnesium 1.4 L*, Total Bilirubin 4.4 H, AST 59 H, ALT 32, Alkaline Phosphatase 90 Assessment and Plan - Problems (Diagnosis) (1) Chronic anemia Current Visit: Yes Status: Acute (2) Hepatic encephalopathy Current Visit: No Status: Acute (3) Hypoalbuminemia Current Visit: No Status: Acute (4) Liver cirrhosis Current Visit: No Status: Acute (5) Thrombocytopenia Current Visit: No Status: Acute - Plan Boyfriend report patient was complaining of neck pain. Given patient has low-grade fever, will cover for meningitis with IV Rocephin and vancomycin. UA is negative for UTI. Not recommending lumbar puncture at this time due to thrombocytopenia along with elevated PT. Treat hepatic encephalopathy with lactulose. Target of 2-3 loose bowel movements today. Resume Rifaximine. Monitor ammonia level daily. Monitor CBC LFT and renal function. - Advance Directives Does patient have a Living Will: No Does patient have a Durable POA for Healthcare: No
[2021-04-16] MEDS: LACTULOSE 20 GM/30 ML UCUP PO SCH (21:16)
[2021-04-16] MEDS ORDERED: ACETAMINOPHEN 325 MG/SUPP PR PRN (21:28)
[2021-04-16] MEDS ORDERED: CEFTRIAXONE/SWI 1gm 1 GM/10 ML SYR IV SCH (23:00)
[2021-04-16] MEDS ORDERED: VANCOMYCIN 1.25 GM in NA CHLORIDE 0.9% 250 ML IVPB SCH (23:00)
[2021-04-16] MEDS ORDERED: VANCOMYCIN/NS 1 gm 1 GM/250 ML BAG IVPB SCH (23:45)
[2021-04-16] MEDS ORDERED: CEFTRIAXONE 1 GM/NS 50 ML 1 GM/50 ML BAG IV SCH (23:45)
[2021-04-17] MEDS ORDERED: NA CHLORIDE 0.9% 500 ML ONE (00:44)
[2021-04-17] MEDS ORDERED: VANCOMYCIN 1 GM/VIAL ONE (00:44)
[2021-04-17] MEDS ORDERED: VANCOMYCIN 500 MG/VIAL ONE (00:50)
[2021-04-17] MEDS ORDERED: VANCOMYCIN 1.5 GM in NA CHLORIDE 0.9% 500 ML IVPB ONE (01:00)
[2021-04-17] MEDS ORDERED: PANTOPRAZOLE 40MG TABLET PO SCH (04:00)
[2021-04-17] MEDS ORDERED: MORPHINE 2 MG/ML SYR IV ONE (04:54)
[2021-04-17 05:27] LABS: Absolute Lymphocytes (CBC) 1.3 K/uL (0.7-4.9); Basophils % 0.7 % (0-1.3); Hematocrit 26.3 % (36.0-45.0); Lymphocytes % 12.3 % (15.3-44.8); MPV 8.4 fL (7.6-11.3); RBC Red Blood Cell Count 2.94 M/uL (3.86-4.86)
[2021-04-17 05:32] LABS: Albumin 1.7 g/dL (3.4-5.0); Magnesium 1.6 mg/dL (1.8-2.4); Phosphorus 2.9 mg/dL (2.5-4.9); Potassium 3.2 mmol/L (3.5-5.1); Protein, Total 4.7 g/dL (6.4-8.2)
[2021-04-17] MEDS ORDERED: METOPROLOL TAR 25 MG TAB PO SCH (06:00)
--- NOTE | 2021-04-17 06:21 | EKG ---
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
[2021-04-17] MEDS ORDERED: MULTIVITAMIN TAB PO SCH (09:00)
[2021-04-17] MEDS ORDERED: CEFTRIAXONE/SWI 1gm 1 GM/10 ML SYR IV SCH (09:00)
[2021-04-17] MEDS ORDERED: FUROSEMIDE 40 MG TABLET PO SCH (09:00)
[2021-04-17] MEDS ORDERED: AMLODIPINE 5 MG TAB PO SCH (09:00)
[2021-04-17] MEDS ORDERED: LACTULOSE 20 GM/30 ML UCUP PO SCH (09:00)
[2021-04-17] MEDS ORDERED: CEFTRIAXONE 1 GM/NS 50 ML 1 GM/50 ML BAG IV SCH (09:00)
[2021-04-17] MEDS ORDERED: THIAMINE HCL 100 MG TABLET PO SCH (09:00)
[2021-04-17] MEDS: LACTULOSE 20 GM/30 ML UCUP PO SCH (09:00)
[2021-04-17] MEDS ORDERED: SPIRONOLACTONE 25 MG TABLET PO SCH (09:00)
[2021-04-17] MEDS ORDERED: Rifaximin 550 MG Tab PO SCH (09:00)
[2021-04-17] MEDS ORDERED: FOLIC ACID 1 MG TABLET PO SCH (09:00)
[2021-04-17] MEDS ORDERED: VANCOMYCIN 1.25 GM in NA CHLORIDE 0.9% 250 ML IVPB SCH (13:00)
--- NOTE | 2021-04-17 13:03 | P.DS ---
Admission Date: 04/16/21 Discharge Date: 04/17/21 Disposition: ROUTINE DISCHARGE Discharge Condition: FAIR Reason for Admission: Altered mental status - Problems (1) Chronic anemia Current Visit: Yes Status: Acute (2) Hepatic encephalopathy Current Visit: No Status: Acute (3) Hypoalbuminemia Current Visit: No Status: Acute (4) Liver cirrhosis Current Visit: No Status: Acute (5) Thrombocytopenia Current Visit: No Status: Acute Brief History of Present Illness: 51-year-old woman with a history of advanced liver cirrhosis, multiple hospitalizations for hepatic encephalopathy was brought in by her boyfriend with a complaint of altered mental status. Boyfriend reported patient has been compliant with her lactulose. Her ammonia level in the ED is 84. UA is negative for UTI, hemoglobin 8.7, platelets 67. Patient was unresponsive during my examination in the ED. Head CT is negative. Patient admitted for further management. Hospital Course: Patient admitted to the medical floor and started on lactulose for hepatic encephalopathy. Her UA was negative for UTI. Patient was treated with antibiotics given low-grade fever and altered mental status. Patient became alert and oriented and without symptoms the following day. She was up and am bulate. She endorsed noncompliance with her lactulose. Patient requests to go home after waking up. She would not wait for her blood culture result. He is discharged per her request. Aldactone dose has been changed from 25 mg b.i.d to 50 mg daily. Vital Signs/Physical Exam: Temp Pulse Resp BP Pulse Ox 99.0 F 82 18 126/74 100 04/17/21 08:00 04/17/21 08:00 04/17/21 08:00 04/17/21 08:00 04/17/21 08:00 General: Alert, In no apparent distress, Oriented x3 HEENT: Mucous membr. moist/pink, Sclerae nonicteric Neck: Supple, JVD not distended Respiratory: Clear to auscultation bilaterally, Normal air movement Cardiovascular: Regular rate/rhythm, Normal S1 S2, Edema (Bilateral legs) Gastrointestinal: Soft and benign, Non-distended, No tenderness Integumentary: Venous stasis ulcer (Left leg) Neurological: Normal gait, Normal speech, Normal strength at 5/5 x4 extr, Cranial nerves 3-12 intact Laboratory Data at Discharge: WBC 10.90 K/uL (4.3-10.9) 04/17/21 04:47 Hgb 8.4 g/dL (12.0-15.0) L 04/17/21 04:47 Hct 26.3 % (36.0-45.0) L 04/17/21 04:47 Plt Count 76 K/uL (152-406) L 04/17/21 04:47 PT 18.9 SECONDS (9.5-12.5) H 04/16/21 05:20 INR 1.64 04/16/21 05:20 Sodium 145 mmol/L (136-145) 04/17/21 04:47 Potassium 3.2 mmol/L (3.5-5.1) L 04/17/21 04:47 BUN 14 mg/dL (7-18) 04/17/21 04:47 Creatinine 0.80 mg/dL (0.55-1.3) 04/17/21 04:47 Glucose 124 mg/dL (74-106) H 04/17/21 04:47 Phosphorus 2.9 mg/dL (2.5-4.9) 04/17/21 04:47 Magnesium 1.6 mg/dL (1.8-2.4) L 04/17/21 04:47 Total Bilirubin 5.0 mg/dL (0.2-1.0) H 04/17/21 04:47 AST 53 U/L (15-37) H 04/17/21 04:47 ALT 27 U/L (12-78) 04/17/21 04:47 Alkaline Phosphatase 81 U/L (45-117) 04/17/21 04:47 Home Medications: Amlodipine [Norvasc*] 5 mg PO DAILY #30 tab 02/20/21 Furosemide [Lasix*] 40 mg PO BID #60 tab 02/20/21 Folic Acid 1 mg PO DAILY #90 tablet 03/28/21 Lactulose [Cephulac*] 45 ml PO TID #4000 ml 03/28/21 Metoprolol Tartrate [Lopressor*] 25 mg PO BID 6AM 6PM #60 tab 03/28/21 Multivit with Iron,Minerals [Complete Senior] 1 each PO DAILY #90 tablet 03/28/21 Pantoprazole [Protonix Tab*] 40 mg PO Q12H #60 tab 03/28/21 Rifaximin [Xifaxan] 550 mg PO BID #60 03/28/21 Thiamine HCl 100 mg PO DAILY #90 tablet 03/28/21 Spironolactone [Aldactone*] 50 mg PO DAILY #60 tab 04/17/21 New Medications: Spironolactone [Aldactone*] 50 mg PO DAILY #60 tab Physician Discharge Instructions: PROBLEM: Hepatic Encephalopathy GOAL: Clear understanding of disease process INSTRUCTIONS: Diet: heart healthy Activity: As tolerated If you have any questions regarding your stay call [phone] If your symptoms worsen call 911 or go to the ED. Your prior to take your medications regularly. Diet: AHA Activity: Ad carmen Followup: NONE,NONE [Primary Care Provider] - Time spent managing pt's care (in minutes): 33
[2021-04-17 13:54] VITALS: BP 121/70; TEMP 98.4
[2021-04-18] MEDS ORDERED: VANCOMYCIN 1.25 GM in NA CHLORIDE 0.9% 250 ML IVPB SCH (11:00)
== END 2021-04-17 14:16 | disposition home or self-care (01) | DRG 442 ==
LOC: ER 04:56 → ERHOLD 10:25 → 2ND 13:31
PROVIDERS: ADMIT Internal Medicine; ATTEND Internal Medicine
DX: K72.90 Hepatic failure, unspecified without coma (principal); I50.30 Unspecified diastolic (congestive) heart failure; K74.60 Unspecified cirrhosis of liver; D64.9 Anemia, unspecified; E88.09 Other disorders of plasma-protein metabolism, not elsewhere classified; D69.6 Thrombocytopenia, unspecified; K21.9 Gastro-esophageal reflux disease without esophagitis; F15.10 Other stimulant abuse, uncomplicated; Z91.14 Patient's other noncompliance with medication regimen
CPT/HCPCS: 36415; 51702; 70450; 71045; 80048; 80053; 80076; 81003; 82140; 83735; 83880; 84100; 84484; 85025; 85610; 87040; 87205; 93005; 96361; 96374; 99285; J0696; J2270; J3370; J7040; J7050

== ENCOUNTER 2021-05-06 00:19 | Inpatient (IN) | payer SELFPAY ==
--- OUTSIDE RECORDS SUMMARY | 2021-05-06 00:29 | XMS REPORT | Continuity of Care Document ---
:[address] [facility] t Address [address] [place] [address] Care Team Providers Name Role Phone Shane ZHANG Attending Clinician Carito Nam MD Attending Clinician Kacy JEFF Attending Clinician Ramesh PATEL Attending Clinician Endy MCINTOSH Attending Clinician Unavailable ARIANA ARIZMENDI Attending Clinician Unavailable Ariana Arzimendi MD Attending Clinician Daniel Rivera MD Attending Clinician Hui Singer MD Attending Clinician Minnie Strong MD Attending Clinician Bhavesh Becerril MD Attending Clinician MINNIE STRONG Attending Clinician Unavailable Drever ADVERTISING SALES MANAGER, G Attending Clinician Doctor Unassigned, Name Attending Clinician Unavailable Law, R Attending Clinician Unavailable Carl MAGANA, S Attending Clinician Gin Anthony MA Attending Clinician Unavailable Cb JEFF, Octavio Attending Clinician LEO Attending Clinician Unavailable Leo JEFF Attending Clinician Sarai JEFF, Ni Attending Clinician Merchant JEFF Attending Clinician Jennifer JEFF, Shahbaz Attending Clinician Feng JEFF, Sonia Attending Clinician Vasyl MCINTOSH, Clem Attending Clinician Gera JEFF, Norman Attending Clinician Kevin Newman MD Attending Clinician Olivia JEFF Attending Clinician Andrea JEFF Attending Clinician Lavon JEFF Attending Clinician Ramesh PATEL Admitting Clinician DANIEL RIVERA Admitting Clinician Unavailable Admitting Clinician Unavailable Dalila JEFF Admitting Clinician Andrea JEFF Admitting Clinician Payers Payer Name Policy Type Policy Number Effective Date Expiration Date S ource Problems Condition Condition Condition Status Onset Resolution Last Treating Co mments Source Name Details Category Date Date Treatment Clinician Date Altered Altered Disease Active [facility] status status 00:00: [facility] Hepatic Hepatic Disease Active [facility] encephalop encephalop - Mita kes - athy athy 00:: [facility] Black Black Disease Active [facility] stools stools 10-24 [facility] - 00:00: Medical [place] Cirrhosis Cirrhosis Disease Active [facility] 10[facility] - 00:00: Medical [place] Volume Volume Disease Active [facility] overload overload 10-24 [facility] - 00:00: Medical [place] Allergies, Adverse Reactions, Alerts Allergy Allergy Status Severity Reaction(s) Onset Inactive Treating Comm ents Source Name Type Date Date Clinician ondanset DA Active [facility] 00:[facility]: [facility] 00 are Jairo Garcia Ondanset Drug Active Rash [facility] Hcl Allergy 10-22 [facility] - (Pf) [facility] Social History Social Habit Start Date Stop Date Quantity Comments Source Sex Assigned At [facility] Exposure to Not sure [facility] jeanne - SARS-CoV-2 [facility] (event) Tobacco use and 2021-04-06 2021-04-06 Never used [facility] jeanne - exposure 00:00:00 00:00:00 [facility] Alcohol intake 2021-04-06 2021-04-06 Ex-drinker [facility] Walter es - 00:00:00 00:00:00 (finding) [facility] Alcohol Comment 2021-03-12 2021-03-12 stopped [facility] [address] [facility] - 00:00:00 00:00:00 [facility] Smoking Status Start Date Stop Date Source Never smoker [facility] edical [place] Medications Ordered Filled Start Stop Current Ordering Indication Dosage Frequency Signature Comments Components Source Medication Medication Date Date Medication? Clinician (SIG) Name Name spironolact 2021- No 100mg QD Take [address] [facility] 10-25 tablet [facility] - (ALDACTONE) 00:00: 23:59 (100 mg Me dical 100 MG 00 :00 total) by Center tablet mouth daily. lactulose No 20g Q.[id number] Take [address] (CHRONULAC) 10-24 [id number] by mouth 3 [facility] - 10 gram/15 [...] Center mouth 2 (two) times daily. lactulose No 20g Q.[id number] Take [address] (CHRONULAC) 10-24 [id number] mLs (20 g [facility] - 10 gram/15 00:00: 23:59 3D total) by edical mL (15 mL) 00 :00 mouth 3 Center solution (three) times daily. potassium 20meq QD Take [address] chloride SA 10-24 tablet (20 L uk - (K-DUR,KLOR 00:00: 23:59 mEq total) Medical -CON) 20 00 :00 by mouth Center MEQ tablet daily. furosemide Take [address] (LASIX) 40 10-24 [...] Source Systolic blood 2021-04-10 14:55:00 150 mm[Hg] [facility] Diastolic blood 2021-04-10 14:55:00 88 mm[Hg] [facility] S t [facility] Heart rate 2021-04-10 14:55:00 104 /min [facility] L [facility] Body temperature 2021-04-10 14:55:00 36.06 Tamar [facility] Respiratory rate 2021-04-10 14:55:00 17 /min [facility] Oxygen saturation in 2021-04-10 14:55:00 98 /min [facility] Arterial blood by Medical Ce nter Pulse oximetry Body weight 2021-04-10 06:00:00 79.153 kg [facility] BMI 2021-04-10 06:00:00 29.95 kg/m2 [facility] Body height 2021-04-06 19:03:00 162.6 cm [facility] Procedures Procedure Date / Time Performing Clinician Source Performed POTASSIUM 2021-04-10 06:13:00 Vivian Tam [facility] COMPREHENSIVE METABOLIC 2021-04-10 06:13:00 Enmanuel Radhakait Ames [facility] PROTHROMBIN TIME/INR 2021-04-10 06:13:00 Radha Singer [facility] CBC W/PLT COUNT & AUTO 2021-04-10 06:12:00 Radha Singer [facility] MAGNESIUM 2021-04-09 05:49:[address] [facility] CBC W/PLT COUNT & AUTO 2021-04-09 05:49:00 [facility] HEPATIC FUNCTION PANEL 2021-04-09 05:49:00 Yuli Rivera [facility] PROTHROMBIN TIME/INR 2021-04-09 05:49:00 Victorino Yuli [facility] CALCIUM, IONIZED 2021-04-09 05:49:00 Peterson Morales [facility] COMPREHENSIVE METABOLIC 2021-04-09 05:49:00 [facility]OS[facility] 2021-04-09 05:49:00 [facility] PARACENTESIS 2021-04-08 17:10:00 Yuli Rivera [facility] BODY FLUID CULTURE + GRAM 2021-04-08 17:04:00 Yuli Rivera [facility] BODY FLUID CELL COUNT WITH 2021-04-08 17:03:[address] [facility] [place] [place] BLOOD CULTURE 2021-04-08 14:02:[address] [facility] MISCELLANEOUS LAB ORDER 2021-04-08 04:33:00 Johnny Oliver [facility] BASIC METABOLIC PANEL (7) 2021-04-08 04:33:00 Jordi Morton ph [facility] MAGNESIUM 2021-04-08 04:33:00 Krish Morton [facility] CBC W/PLT COUNT & AUTO 2021-04-08 04:33:00 Selene [facility] HEPATIC FUNCTION PANEL 2021-04-08 04:33:00 Victorino Yuli [facility] PROTHROMBIN TIME/INR 2021-04-08 04:33:00 Yuli Rivera [facility] ALPHA FETOPROTEIN (AFP), 2021-04-08 04:33:00 Johnny Oliver [facility] - TUMOR MARKER [facility] HEPATITIS B SURFACE 2021-04-08 04:33:00 Johnny Oliver [facility] - ANTIBODY [facility] RAPID DRUG SCREEN, URINE 2021-04-07 11:34:00 Leroy-Dilcia Carbone pe [facility] URINALYSIS W/ REFLEX URINE 2021-04-07 11:34:00 Yuli Rivera [facility] CT BRAIN WITHOUT IV 2021-04-07 08:07:00 Victorino Yuli [facility] BLOOD CULTURE 2021-04-07 04:32:00 Yuli Rivera [facility] BASIC METABOLIC PANEL (7) 2021-04-07 04:28:00 Jordi Morton ph [facility] MAGNESIUM 2021-04-07 04:28:00 Krish Morton [facility] CBC W/PLT COUNT & AUTO 2021-04-07 04:28:00 SeleneKrish [facility] HEPATIC FUNCTION PANEL 2021-04-07 04:28:00 Yuli Rivera [facility] PROTHROMBIN TIME/INR 2021-04-07 04:28:00 LaurelYuli [facility] S t [facility] SARS-COV2/INFLUENZA/RSV 2021-04-07 02:11:00 Haroldo Prakash [place] C [facility] RT-PCR [facility] BLOOD CULTURE 2021-04-07 02:08:00 LaurelYuli [facility] BLOOD CULTURE 2021-04-07 02:08:00 LaurelYuli [facility] IDENTIFICATION [facility] CT BRAIN WITHOUT IV 2021-04-06 23:35:00 Juan Smith [facility] CONTRAST [facility] AMMONIA 2021-04-06 21:11:[address] [facility] MAGNESIUM 2021-04-06 21:10:[address] [facility] PHOSPHORUS 2021-04-06 21:10:[address] [facility] COMPREHENSIVE METABOLIC 2021-04-06 21:10:00 Shana Smith [facility] HIGH SENSITIVITY TROPONIN 2021-04-06 21:10:00 Angela Smith [facility] ETHANOL 2021-04-06 21:09:[address] [facility] CBC W/PLT COUNT & AUTO 2021-04-06 20:05:00 Juan Smith [facility] PT/APTT 2021-04-06 20:05:[address] [facility] CBC W/PLT COUNT & AUTO 2021-03-12 14:33:00 [facility] 2021-03-12 14:33:00 Ligia, [facility] PT/APTT 2021-03-12 14:33:00 [facility] 2021-03-12 14:33:[address] [facility] ECG 12-LEAD 2021-03-12 14:25:26 Ligia, [facility] REPORT OF PROCEDURE - 2021-03-12 00:00:00 Provider, [facility] US ABDOMEN LIMITED 2020-10-24 14:23:00 Merchant [facility] METABOLIC 2020-10-24 02:19:00 Sanjay [facility] CBC W/PLT COUNT & AUTO 2020-10-24 02:19:00 Merchant [facility] PROTHROMBIN TIME/INR 2020-10-24 02:19:00 Merchant [facility] REPORT OF PROCEDURE - 2020-10-23 13:12:14 [facility] 2020-10-23 09:39:00 Ruth Toney [facility] MAGNESIUM 2020-10-23 05:15:00 Merchant [facility] 2020-10-23 05:15:00 Sanjay [facility] HEMOGLOBIN AND HEMATOCRIT 2020-10-23 05:14:00 Merchant [facility] CBC W/PLT COUNT & AUTO 2020-10-23 05:14:00 Merchant [facility] PROTHROMBIN TIME/INR 2020-10-23 05:14:00 Sanjay [facility] HEPATITIS C PCR, 2020-10-23 05:14:[address] [facility] HEPATITIS C GENOTYPE 2020-10-23 05:14:00 Sanjay, [facility] HEPATITIS PANEL, ACUTE 2020-10-23 05:14:00 Sanjay, [facility] [id number]\\, 2020-10-23 05:14:00 Sanjay [facility] ALPHA FETOPROTEIN (AFP), 2020-10-23 05:14:00 Sanjay [facility] TUMOR MARKER [facility] CERULOPLASMIN 2020-10-23 05:14:00 Sanjay, [facility] FERRITIN 2020-10-23 05:14:00 Sanjay [facility] IRON, TIBC, % SAT. 2020-10-23 05:14:00 Sanjay, [facility]WITHOUT FERRITIN) [facility]12 2020-10-23 05:14:00 Sanjay, [facility] FOLATE, SERUM 2020-10-23 05:14:00 Sanjay [facility] RETICULOCYTE COUNT 2020-10-23 05:14:00 Sanjay [facility] ACTIN (SMOOTH MUSCLE) 2020-10-23 05:14:00 Sanjay [facility] - ANTIBODY, IGG [facility] ANTI-NUCLEAR ANTIBODY 2020-10-23 05:14:00 Sanjay [facility] (LUCAS) [facility] ANTI-MITOCHONDRIAL AB, 2020-10-23 05:14:00 Sanjay [facility] - REFLEX TO TITER [facility] HEPATITIS B CORE ANTIBODY, 2020-10-23 05:14:00 Eli Graceha C HI [facility] TOTAL [facility] HEPATITIS A ANTIBODY, IGG 2020-10-23 05:14:00 Sanjay, Eusebio CH I [facility] MITOCHONDRIAL AB SCREEN 2020-10-23 05:14:00 Sanjay [facility] MITOCHONDRIAL AB TITER 2020-10-23 05:14:00 Eusebio Grace [facility] US ABDOMINAL WITH DOPPLER 2020-10-22 21:15:00 Silvio Riggs CH, I [facility] URINALYSIS W/ REFLEX URINE 2020-10-22 17:23:00 Eusebio Grace [facility] CULTURE [facility] SARS-COV2/RT-PCR ([facility] & 2020-10-22 15:22:00 Janneianna jaques hospitalSilvio fung [facility] - REF LABS) [facility] BLOOD CULTURE 2020-10-22 15:07:00 Silvio Riggs [facility] CBC W/PLT COUNT & AUTO 2020-10-22 14:07:00 [facility] DIFFERENTIAL [facility] BASIC METABOLIC PANEL (7) 2020-10-22 14:07:00 Mandie Moon [facility] HEPATIC FUNCTION PANEL 2020-10-22 14:07:00 Sarai [facility] TROPONIN I 2020-10-22 14:07:[address] [facility] ECG 12-LEAD 2020-10-22 14:01:12 Unknown, Hl7 Doctor [facility] XR CHEST 1 VIEW 2020-10-22 13:46:00 Silvio Riggs [facility] PORTABLE/BEDSIDE [facility] REPORT OF PROCEDURE - 2020-10-22 00:00:00 Provider, Cameron [facility] - ENDOSCOPY SCAN Scanning [facility] Plan of Care Planned Activity Planned Date Details Comments Source Future Scheduled 2021-06-[address] [facility] - Test 00:00:00 (#1) [code = [facility] INFLUENZA VACCINE (#1)] Future Scheduled 2020-10-[address] [facility] - Test 00:00:00 (12+) [code = [facility] DEPRESSION SCREENING (12+)] Future Scheduled 2018 SHINGLES VACCINES ([address] [facility] - Test 00:00:00 of 2) [code = [facility] SHINGLES VACCINES (1 of 2)] Future Scheduled [address] [facility] - Test 00:00:00 (procedure) [code = Medical Center 04839281] Future Scheduled [address] [facility] - Test 00:00:00 malignant neoplasm of [facility] Center cervix (procedure) [code = 862874963] Future Scheduled 1987 DTAP/TDAP/TD VACCINES CH I [...] Medica l Center breast (procedure) [code = 530617823] Future Scheduled [address] [facility] - Test 00:00:00 [facility] [code = 280661378] Encounters Start End Encounter Admission Attending Care Care Encounter Source Date/Time Date/Time Type Type Clinicians Facility Department ID 2021-05-01 2021-05-01 Transition Dar Lynn [id number] 00:00:00 00:00:00 of Care Valerie Pham [id number] Luisa 4.2.7.2.686 [id number] 2021-04-27 2021-04-30 [facility] 1.2.840. [id number] 22:04:00 16:23:00 Encounter Brandon Woodruff [id number] [place] 4.2.7.2.686 [place] [id number] 2021-03-02 2021-03-02 Emergency Tricia [facility] [id number] 13:50:00 18:58:00 Lucila Means [id number] [place] 4.2.7.2.686 [place] [id number] 2021-03-02 2021-03-02 Orders Doctor MACKEY [id number] 00:00:00 00:00:00 Only Unassigned, STAR [id number] [facility] 4.2.7.2.686 [id number] 2021-01-18 2021-01-21 [facility] Marianne Henry [facility] [id number] 20:56:00 13:40:00 Encounter Balta Nam 350.1.13.1 0 [place] 4.2.7.2.686 [place] [id number] 2020-10-13 2020-10-13 Patient Diane Fallon [id number] 00:00:00 00:00:00 Outreach E Pham [id number] [place] 4.2.7.2.686 [id number] 2020-10-01 2020-10-03 [facility] Gera [place] [facility] 1.2.840 .114 [id number] 14:36:00 10:48:00 Encounter Kevin [facility] 350.1.13 .10 Cristofer [place] 4.2.7.2.686 [place] [id number] [facility] 109 ([facility]) 2020-09-29 2020-09-29 Patient Diane Fallon [id number] 00:00:00 00:00:00 Outreach E Pham [id number] [place] 4.2.7.2.686 [id number] 2020-09-25 2020-09-25 Transition Shane Dar 1.2.840.114 [id number] 00:00:00 00:00:00 of Care Valerie Pham [id number] [place] 4.2.7.2.686 [id number] 2020-09-22 2020-09-24 [facility] Balta Nam [facility] 1.2.840. 114 [id number] 05:04:00 10:44:00 Encounter Ezzo, [facility] 350.1.13.10 [place] 4.2.7.2.686 [place] [id number] Hospital 111 (CLC) 2020-06-30 2020-06-30 Emergency Man, [facility] [id number] 14:48:00 18:31:00 Hugo Means 350.1.13.10 [place] 4.2.7.2.686 [place] [id number] 2019-06-11 2019-06-11 Orders Doctor NARENDRA [id number] 00:00:00 00:00:00 Only Unassigned, STAR 350.1.13.10 [place] [facility] 4.2.7.2.686 [id number] 2019-05-11 2019-05-11 Emergency Henry, [facility] [id number] 10:42:22 12:29:00 Marianne Means 350.1.13.10 [place] 4.2.7.2.686 [place] [id number] Results Test Description Test Time Test Comments Results Result Comments Source MISCELLANEOUS LAB ORDER 2021-04-14 09:48:00 Test Item Value Reference Range Interpretation Comme nts SCAN RESULT (test code = 6175298) See scanned reportphosphatydil [id number] 09:48:00Scan ResultQUEST NON- INTERFACED LABSee scanned reportMonrovia Community Hospitalood Culture - Routine (Left Venipuncture)2021-04-13 16:00:00 Test Item Value Reference Range Interpretation Comments Result (test code = No growth in 5 days 6463-4) [facility] [id number] 16:00:00 Test Item Value Reference Range Interpretation Comments CULTURE (BEAKER) (test No growth in 5 days code = 1095) BLOOD [id number] 16:00:00 Test Item Value Reference Range Interpretation Comments CULTURE (BEAKER) (test No growth in 5 days code = 1095) BLOOD [id number] 07:00:00 Test Item Value Reference Range Interpretation Comments CULTURE (BEAKER) (test No growth in 5 days code = 1095) Body fluid culture + gram [id number] 13:14:00 Test Item Value Reference Range Interpretation Comments Result (test code = 6463-4) No growth Gram Stain Result (test No organisms seen code = 1123) [facility] FL[facility] C[facility] + GRAM [id number] 13:14:00 Test Item Value Reference Range Interpretation Comments CULTURE (BEAKER) (test code No growth = 1095) GRAM STAIN RESULT (BEAKER) 1+ WBCs (test code = 1123) GRAM STAIN RESULT (BEAKER) No organisms seen (test code = 16046) BLOOD [id number] 06:42:00 Test Item Value Reference Range Interpretation Comments CULTURE A From Aerobic An d (BEAKER) (test Anaerobic Bot tles code = 1095) Coagulase negat khoi Staphylococcus GRAM STAIN From aerobic and RESULT (BEAKER) anaerobic (test code = bottles: gram 1123) positive cocci in clusters U/S, [id number] 13:23:00Labs to be ordered:->Body Fluid Culture (w/Gram Stain, C\\T\\S)Labs to be ordered:->Cell CountReason for exam:- >AL[facility]ED [facility] : 1970 Sex: FFINAL REPORT Ultrasound guided paracentesis Clinical History: Ascite s. Sedation: None. Dispatch Lead: Sophia Noble PA-C Supervising Physician: Ivan Valdes MD Valet Cashier: None. Estimated Blood Loss: < 1 mL. [...] anesthesia was achieved with lidocaine, a 5 Maldivian one-step catheter was advanced into the peritoneal cavity under ultrasound guidance. After completion of drainage, the catheter was removed. There was no evidence of complication. Impression:Successful ultrasound guided paracentesis.Signed: Ivan Valdes Verified Date/Time: 04/10/2021 13:23:15 Reading Location: [address] Ultrasound Reading Room US [id number] 13:23:00Interface, External Ris In - 04/10/2021 1:25 PM CDTFINAL REPORT Ultrasound guided paracentesis Clinical History: Ascites. Sedation: None. Dispatch Lead: Sophia Noble PA-C Supervising Physician: Ivan Valdes MD Valet Cashier: None. Estimated Blood Loss: <1 mL. Specimen: [...] local anesthesia was achieved with lidocaine,a 5 Maldivian one-step catheter was advanced into the peritoneal cavity under ultrasound guidance. After completion of drainage, the catheter was removed. There was no evidence of complication. Impression:Successful ultrasound guided paracentesis. Signed: Ivan Valdes MDRsammieort Verified Date/Time: 04/10/2021 13:23:15 Reading Location: [address] Ultrasound Reading [facility] 2021-04-10 07:16:00 Test Item Value Reference Range Interpretation Comments Protein, Total (test 4.4 See_Comment L [Autom ated code = 2885-2) message] The system which generated this result transmitted reference range : 6.0 - 8.3 gm/dL . The reference range was not used to interpr et this result as normal/abnormal . Albumin (test code = 1.9 g/dL 3.5-5 L 49088-2) Alkaline Phosphatase 87 U/L 40-150 (test code = 6768-6) Total Bilirubin (test 3.2 mg/dL 0.2-1.2 H code = 1975-2) Sodium (test code = 137 meq/L 911-519 0117-2) Potassium (test code 3.7 meq/L 3.5-5.1 = 2823-3) Chloride (test code = 105 meq/L 98-107 2075-0) CO2 (test code = 28 meq/L 22-29 8-9) BUN (test code = 6 mg/dL 7-21 L 3094-0) Creatinine (test code 0.65 mg/dL 0.57-1.25 = 2160-0) Glucose (test code = 107 mg/dL 70-105 H 2345-7) Calcium (test code = 7.7 mg/dL 8.4-10.2 L 41250-9) AST (test code = 68 U/L 5-34 H 1920-8) ALT (test code = 27 U/L 6-55 1742-6) EGFR (test code = 95 mL/min/1.73 [place] [address]-6) m NOT ACCURATE CREATININE CLEARANCE IN PREDICTING GLOMERULAR FILTRATION RATE . ESTIMATED GFR I S NOT APPLICABLE FOR DIALYSIS PATIENTS. MADDIE (test code = MADDIE) Rotating Field Assembler ID - DBSpecimen slightly icteric Lab Interpretation Abnormal (test code = 62928-5) [facility] 07:16:00 Test Item Value Reference Range Interpretation Comments Potassium (test code = 2823-3) 3.7 meq/L 3.5-5.1 Lab Interpretation (test code = Normal 20272-0) [facility]00 Test Item Value Reference Range Interpretation Comments POTASSIUM (BEAKER) (test code = 3.7 meq/L 3.5-5.1 379) COMPREHENSIVE METABOLIC [id number] 07:16:00 Test Item Value Reference Range Interpretation [...] S NOT APPLICABLE FOR DIALYSIS PATIEN TS. Rotating Field Assembler ID - DBSpecimen slightly ictericProthrombin time/[id number] 06:58:00 Test Item Value Reference Interpretation Comments Range Protime (test code = 21.0 See_Comment H [Autom ated 5902-2) message] The system which generated this result transmitted reference range : 11.9 - 14.2 seconds. The reference range was not used to interpret this result as normal/abnormal . INR (test code = 1.84 See_Comment [Automated 6301-6) message] The system which [...] valves. Lab Interpretation Abnormal (test code = 72419-5) [facility] Hospital[facility]HROMBIN TIME/[id number] 06:58:00 Test Item Value Reference Range Interpretation Comments PROTIME (BEAKER) 21.0 seconds 11.9-14.2 H (test code = 759) INR (BEAKER) (test 1.84 See_Comment [Automat ed message] code = 370) The system [employer] generated this result transmitted ref erence range: [...] See_Comment L [A utomated message] The system [employer] generated this result transmitted ref erence range: 3.5 - 10 .5 K/L. The refe rence range was not u sed to interpret this result as normal/abnor mal. RBC (test code = 789-8) 2.80 See_Comment L [Au tomated message] The system [employer] generated this result transmitted ref erence range: 3.93 - 5 .22 M/L. The refe rence range was not u sed to interpret this result as normal/abnor mal. MCHC (test code = 786-4) 30.8 See_Comment L [A utomated message] The system [employer] generated this result transmitted ref erence range: [...] = 57 See_Comment L [Aut omated message] 777-3) The system [employer] generated this result transmitted ref erence range: 150 - 45 0 K/CU MM. The referen ce range was not u sed to interpret this result as normal/abnor mal. MPV (test code = 11.1 fL 9.4-12.3 29573-7) nRBC (test code = 413) 0 See_Comment [Aut omated message] The system [employer] generated this result transmitted ref erence range: [...] L [Aut omated message] 670) The system [employer] generated this result transmitted ref erence range: 1.56 - 6 .13 K/L. The refe rence range was not u sed to interpret this result as normal/abnor mal. # Lymphs (test code = 1.30 See_Comment [Auto mated message] 414) The system [employer] generated this result transmitted ref erence range: 1.18 - 3 .74 K/L. The refe rence range was not u sed to interpret this result as normal/abnor mal. # Monos (test code = 0.46 See_Comment H [Autom ated message] 415) The system [employer] [place] generated this result transmitted ref erence range: 0.24 - 0 .36 K/L. The refe rence range was not u sed to interpret this result as normal/abnor mal. # Eos (test code = 416) 0.16 See_Comment [Au tomated message] The system [employer] generated this result transmitted ref erence range: 0.04 - 0 .36 K/L. The refe rence range was not u sed to interpret this result as normal/abnor mal. # Baso (test code = 417) 0.03 See_Comment [A utomated message] The system [employer] generated this result transmitted ref erence range: 0.01 - 0 .08 K/L. The refe rence range was not u sed to interpret this result as normal/abnor mal. Immature 0 % 0-1 Granulocytes-Relative (test code = 2801) Lab Interpretation (test Abnormal code = 19525-3) [facility] W/PLT COUNT & AUTO [id number] 06:48:00 Test Item Value Reference Range Interpretation [...] (BEAKER) (test code = 2801) COMPREHENSIVE METABOLIC [id number] 10:33:00 Test Item Value Reference Range Interpretation [...] S NOT APPLICABLE FOR DIALYSIS PATIEN TS. Rotating Field Assembler ID - [place] Paredesecimen slightly ictericHepatic function [id number] 10:29:00 Test Item Value Reference Range Interpretation Comments Protein, Total (test 4.3 See_Comment L [Autom ated code = 2885-2) message] The system which generated this result transmitted reference range : 6.0 - 8.3 gm/dL . The reference range was not used to interpr et this result as normal/abnormal . Albumin (test code = 1.8 g/dL 3.5-5 L 17612-4) Total Bilirubin (test 2.8 mg/dL 0.2-1.2 H code = 1974-2) Bilirubin, Direct 1.6 mg/dL 0.1-0.5 H (test code = 1968-7) Alkaline Phosphatase 78 U/L 40-150 (test code = 6768-6) AST (test code = 48 U/L 5-34 H 1920-8) ALT (test code = 20 U/L 6-55 1742-6) MADDIE (test code = MADDIE) Rotating Field Assembler ID - [place] MSpecimen slightly icteric Lab Interpretation Abnormal (test code = 10208-6) [facility] [id number] 10:29:00 Test Item Value Reference Range Interpretation [...] (test code = 20 U/L 6-55 347) Rotating Field Assembler ID - [place] MSpecimen slightly skajpftIecyyllqq5836-33-77 10:24:00 Test Item Value Reference Range Interpretation Comments Magnesium (test code = 1.5 mg/dL 1.6-2.6 L 15369-0) MADDIE (test code = MADDIE) Rotating Field Assembler ID - [place] M Lab Interpretation (test Abnormal code = 10783-2) [facility] 10:24:00 Test Item Value Reference Range Interpretation Comments Phosphorus (test code = 1.9 mg/dL 2.3-4.7 L 2777-1) MADDIE (test code = MADDIE) Rotating Field Assembler ID - [place] M Lab Interpretation (test Abnormal code = 29150-9) [facility]IUM[facility] 10:24:00 Test Item Value Reference Range Interpretation Comments MAGNESIUM (BEAKER) (test code = 1.5 mg/dL 1.6-2.6 L 627) Rotating Field Assembler ID - [place] [id number] 10:24:00 Test Item Value Reference Range Interpretation Comments PHOSPHORUS (BEAKER) (test code = 1.9 mg/dL 2.3-4.7 L 604) Rotating Field Assembler ID - [place] MPROTHROMBIN TIME/[id number] 07:13:00 Test Item Value Reference Range Interpretation Comments PROTIME (BEAKER) 20.0 seconds 11.9-14.2 H (test code = 759) INR (BEAKER) (test 1.73 See_Comment [Automat ed message] code = 370) The system [employer] [place] generated this result transmitted ref erence range: [...] PERCENT (BEAKER) (test code = 2801) Calcium, [id number] 06:59:00 Test Item Value Reference Range Interpretation Comments Calcium, Ion (test code = 1993-) 1.10 mmol/L 1.12-1.27 L pH, Blood (test code = 15909-6) 7.48 Lab Interpretation (test code = Abnormal 20128-3) [facility]CALCIUM, [id number] 06:59:00 Test Item Value Reference Range Interpretation Comments CALCIUM IONIZED (BEAKER) (test 1.10 mmol/L 1.12-1.27 L code = 698) PH, BLOOD (BEAKER) (test code = 7.48 1810) Body fluid cell count with jlvvcszengpv3641-60-03 18:49:00 Test Item Value Reference Range Interpretation Comments Appearance (test code Clear Clear = 9335-1) Color (test code = Yellow Colorless, Straw A 6824-7) RBCs (test code = 260 See_Comment H [Automate d 48071-1) message] The system which generated this result transmitted reference range : <=1 /cu mm. The reference range was not used to interpret this result as normal/abnormal . Adjusted WBC Count 170 See_Comment H [Automat ed (test code = 53600-4) messag e] The system which generated this result transmitted reference range : <=5 /cu mm. The reference range was not used to interpret this result as normal/abnormal . Lining Cells (test 0 See_Comment [Automat ed code = 83466-4) message] The system which generated this result transmitted reference range : <=1 /cu mm. The reference range was not used to interpret this result as normal/abnormal . % Segs (test code = 7 % 05872-3) % Lymphs (test code = 67 % 04189-4) % Monos (test code = 26 % 85261-0) % Eos (test code = 0 % 24760-1) % Baso (test code = 0 % 65698-3) Container Body Fluid Sterile (test code = 2873) Container Lab Interpretation Abnormal (test code = 66485-7) [facility] HospitalBODY FLUID CELL COUNT WITH [id number] 18:49:00 Test Item Value Reference Range Interpretation [...] (BEAKER) (test code = 2873) Basic metabolic qvafe7140-38-75 06:55:00 Test Item Value Reference Range Interpretation Comments Sodium (test code = 144 meq/L 578-721 0731-2) Potassium (test code 3.5 meq/L 3.5-5.1 Specime n = 2823-3) slightly hemolyzed Chloride (test code = 110 meq/L 98-107 H 2074-0) CO2 (test code = 25 meq/L -29 2028-9) BUN (test code = 13 mg/dL 7-21 3094-0) Creatinine (test code 0.55 mg/dL 0.57-1.25 L Specim en = 2160-0) slightly hemolyzed Glucose (test code = 60 mg/dL 70-105 L 2345-7) Calcium (test code = 7.8 mg/dL 8.4-10.2 L 88134-4) EGFR (test code = 116 mL/min/1.73 [place] [address]-6) NOT ACCURATE CREATININE CLEARANCE IN PREDICTING GLOMERULAR FILTRATION RATE . ESTIMATED GFR I S NOT APPLICABLE FOR DIALYSIS PATIENTS. MADDIE (test code = MADDIE) Rotating Field Assembler ID - BSSpecimen slightly icteric Lab Interpretation Abnormal (test code = 64381-3) [facility] METABOLIC [id number] 06:55:00 Test Item Value Reference Range Interpretation [...] S NOT APPLICABLE FOR DIALYSIS PATIEN TS. Rotating Field Assembler ID - BSSpecimen slightly ictericHEPATIC FUNCTION [id number] 06:55:00 Test Item Value Reference Range Interpretation [...] Specimen slightly (test code = 347) hemolyzed Rotating Field Assembler ID - BSSpecimen slightly [id number] 06:52:00 Test Item Value Reference Range Interpretation Comments MAGNESIUM (BEAKER) 1.6 mg/dL 1.6-2.6 Specimen slightly (test code = 627) hemolyzed Rotating Field Assembler ID - BSHepatitis B surface ehqewaeh8170-41-96 06:08:00 Test Item Value Reference Range Interpretation Comments Hep B S Ab (test code <8.0 See_Comment [Auto mated = 61067-4) message] The system which generated this result transmit joseph reference range : <8.0 mIU/mL. Th e reference range was not used to interpret this result as normal/abnormal . MADDIE (test code = MADDIE) Rotating Field Assembler ID - BS Lab Interpretation Normal (test code = 50562-1) [facility]Alpha fetoprotein (AFP), tumor mxkbbz9208-36-00 06:08:00 Test Item Value Reference Range Interpretation Comments Alpha-Fetoprotein <2.0 See_Comment [Automate d (test code = 1834-1) message ] The system which generated this result transmit joseph reference range : <10.0 ng/mL. Th e reference range was not used to interpret this result as normal/abnormal . MADDIE (test code = MADDIE) Rotating Field Assembler ID - BS Lab Interpretation Normal (test code = 94196-0) [facility]ALPHA FETOPROTEIN (AFP), TUMOR [id number] 06:08:00 Test Item Value Reference Range Interpretation Comments ALPHA-FETOPROTEIN (BEAKER) (test code < ng/mL <10.0 = 1094) Rotating Field Assembler ID - BSHEPATITIS B SURFACE NEXIKVJD7221-33-73 06:08:00 Test Item Value Reference Range Interpretation Comments HEPATITIS B SURFACE ANTIBODY < mIU/mL <8.0 (BEAKER) (test code = 647) Rotating Field Assembler ID - BSPROTHROMBIN TIME/[id number] 05:34:00 Test Item Value Reference Range Interpretation Comments PROTIME (BEAKER) 18.4 seconds 11.9-14.2 H (test code = 759) INR (BEAKER) (test 1.55 See_Comment [Automat ed message] code = 370) The system [employer] generated this result transmitted ref erence range: [...] (BEAKER) (test code = 2801) Blood Culture Panel(Hubs1e)2021-04-08 02:34:00 Test Item Value Reference Interpretation Comments Range LISTERIA MONOCYTOGENES Not detected Not detected (test code = 78681-8) STAPHYLOCOCCUS (test Detected Not detected A Coagula se negative code = 12579-5) Staph specie s (CoNS)- methicillin resistantFirst- delmis e therapy: Vancomycin MecA DETECTED Possib le contamination. The likelihood of pathogenicity i s increased if th e organism is observed in multiple blood cultures obtain ed from separate venipunctures. Reference Range : Not Detected STAPHYLOCOCCUS AUREUS Not detected Not detected (test code = 60452-1) Streptococcus (test Not detected Not detected code = 15966-9) STREPTOCOCCUS Not detected Not detected AGALACTIAE (GROUP B) (test code = 22795-0) STREPTOCOCCUS Not detected Not detected PNEUMONIAE (test code = 42513-7) Streptococcus pyogenes Not detected Not detected (Group A) (test code = 06004-9) ACINETOBACTER BAUMANNII Not detected Not detected (test code = 85143-8) HAEMOPHILUS INFLUENZAE Not detected Not detected (test code = 26004-5) NEISSERIA MENINGITIDIS Not detected Not detected (test code = 09881-2) ENTEROBACTERIACEAE Not detected Not detected (test code = 67592-5) ENTEROBACTER CLOACOE Not detected Not detected COMPLEX (test code = 07982-9) KLEBSIELLA OXYTOCA Not detected Not detected (test code = 77133-9) KLEBSIELLA PNEUMONIAE Not detected Not detected (test code = 34904-6) PROTEUS (test code = Not detected Not detected 38198-3) SERRATIA MARCESCENS Not detected Not detected (test code = 16603-1) ELIZ ALBICANS (test Not detected Not detected code = 53558-4) ELIZ GLABRATA (test Not detected Not detected code = 22888-0) ELIZ KRUSEI (test Not detected Not detected code = 64173-3) ELIZ PARAPSILOSIS Not detected Not detected (test code = 40968-8) ELIZ TROPICALIS Not detected Not detected (test code = 84461-5) ESCHERICHIA COLI (test Not detected Not detected code = 12654-6) METHICILLIN-RESISTANCE Detected Not detected A Note: GENE (test code = Antimicrob ial 48388-6) resistance can occur via multi ple mechanisms. A N ot Detected result for the [employer] antimicrobial resistance gene assays does not indicate antimicrobial susceptibility. Subculturing is required for species identification and susceptibility testing of isolates. VANCOMYCIN-RESISTANCE GENE (test code = 85504-3) CARBAPENEM-RESISTANCE GENE (test code = 21051-2) ENTEROCOCCUS (test code Not detected Not detected = 30790-9) PSEUDOMONAS AERUGINOSA Not detected Not detected (test code = 89992-3) MADDIE (test code = MADDIE) Other bacteria and resistance markers not targeted by this PCR panel cannot be excluded; therefore clinical correlation and follow up of serology, culture results, and other molecular studies is required. The results are not intended to be used as the sole means for clinical diagnosis or patient management decisions. This sample was tested at the [facility] using the Meeps Blood Culture ID Panel. It is FDA cleared and has been verified and approved by the [facility] for clinical use. This laboratory is CLIA-certified and [employer] (CAP)-accredited to perform high complexity testing. Lab Interpretation Abnormal (test code = 60143-8) [facility] IDENTIFICATION [id number] 02:34:00 Test Item Value Reference Interpretation Comments Range LISTERIA MONOCYTOGENES Not detected Not detected (test code = 6161346) STAPHYLOCOCCUS (test Detected Not detected A Coagula se negative code = 2524458) Staph specie s (CoNS)- methici llin resistantFirst- line therapy: Vancom ycin MecA DETECTED Possible contamination. The likelihood of pathogenicity i s increased if th e organism is observed in multiple blood cultures obtain ed from separate venipunctures. Reference Range : Not Detected STAPHYLOCOCCUS AUREUS Not detected Not detected (test code = 9500070) STREPTOCOCCUS (test code Not detected Not detected = 0450712) STREPTOCOCCUS AGALACTIAE Not detected Not detected (GROUP B) (test code = 9466439) STREPTOCOCCUS PNEUMONIAE Not detected Not detected (test code = 8893503) STREPTOCOCCUS PYOGENES Not detected Not detected (GROUP A) (test code = 2354257) ACINETOBACTER BAUMANNII Not detected Not detected (test code = 0515483) HAEMOPHILUS INFLUENZAE Not detected Not detected (test code = 4842271) NEISSERIA MENINGITIDIS Not detected Not detected (test code = 9242160) ENTEROBACTERIACEAE (test Not detected Not detected code = 5206429) ENTEROBACTER CLOACOE Not detected Not detected COMPLEX (test code = 1419917) KLEBSIELLA OXYTOCA (test Not detected Not detected code = 2203304) KLEBSIELLA PNEUMONIAE Not detected Not detected (test code = 1650) PROTEUS (test code = Not detected Not detected 8168141) SERRATIA MARCESCENS Not detected Not detected (test code = 7887079) ELIZ ALBICANS (test Not detected Not detected code = 9313029) ELIZ GLABRATA (test Not detected Not detected code = 1478982) ELIZ KRUSEI (test Not detected Not detected code = 2962060) ELIZ PARAPSILOSIS Not detected Not detected (test code = 4693650) ELIZ TROPICALIS (test Not detected Not detected code = 0946533) ESCHERICHIA COLI (test Not detected Not detected code = 0778782) METHICILLIN-RESISTANCE Detected Not detected A Note: Antimicrobial GENE (test code = resistance can 7878604) occur via multi ple mechanisms. A N ot Detected result for the [employer] antimicrobial resistance gene assays does not indicate antimicrobial susceptibility. Subculturing is required for species identification and susceptibility testing of isolates. VANCOMYCIN-RESISTANCE GENE (test code = 2383197) CARBAPENEM-RESISTANCE GENE (test code = 1668307) ENTEROCOCCUS-BEAKER Not detected Not detected (test code = 6786947) PSEUDOMONAS Not detected Not detected AERUGINOSA-BEAKER (test code = 7772756) Other bacteria and resistance markers not targeted by this PCR panel cannot be excluded; therefore clinical correlation and follow up of serology, culture results, and other molecular studies is required. The results are not intended to be used as the sole means for clinical diagnosis or patient management decisions. This sample was tested at the [facility] using the Meeps Blood Culture ID Panel. It is FDA cleared and has been verified and approved by the [facility] for clinical use. This laboratory is CLIA-certified and College ofAmerican Pathologists (CAP)-accredited to perform high complexity testing.Rapid drug screen, [id number] 13:13:00 Test Item Value Reference Range Interpretation Comments Methamphetamine Screen Positive Negative A (test code = 23165-8) Barbiturate Screen Negative Negative (test code = 47196-3) Benzodiazepine Screen Positive Negative A (test code = 17563-0) Cocaine (Metab.) Screen Negative Negative (test code = 3397-7) Methadone Screen (test Positive Negative A code = 68672-1) Opiate Screen (test Negative Negative code = 63752-8) Cannabinoid Screen Negative Negative (test code = 16720-5) Tricyclic Screen (test Negative Negative code = 58223-7) Amphetamine Screen Negative Negative (test code = 21633-5) Phencyclidine Screen Negative Negative (test code = 74574-4) pH, UA (test code = 6.0 5.0-8.0 5803-2) MADDIE (test code = MADDIE) DRUG CUTOFF CONC.Cocaine 300 ng/mL Cannabinoid 50 ng/mLBenzodiazepine 200 ng/mLBarbiturate 200 ng/mLPhencyclidine 25 ng/mLOpiate 300 ng/mLMethadone 300 ng/mLAmphetamine/ 1000 ng/mL Methamphetamine This assay provides an unconfirmed qualitative test result for the clinical management of patients in emergency situations. Chain of custody not maintained. Some yevo-nro-cmiiuwq medications, as well as adulterants, may cause inaccurate results. Clinical correlation should be applied. A more comprehensive drug screen or confirmation of a detected drug may be performed upon request. Lab Interpretation Abnormal (test code = 01913-7) [facility], [id number] 13:13:00 Test Item Value Reference Range Interpretation [...] situations. Chain of custody not maintained. Some yoyd-awa-apxhjgf medications, as well as adulterants, may cause inaccurate results. Clinical correlation should be applied. A more comprehensivedrug screen or confirmation of a detected drug may be performed upon request.Urinalysis w/Microscopic + Reflex to [id number] 12:09:00 Test Item Value Reference Range Interpretation Comments Color, UA (test code Yellow = 5778-6) Clarity, UA (test Hazy code = 5767-9) Specific [place], UA 1.018 1.001-1.035 (test code = 5811-5) pH, UA (test code = 6.5 5.0-8.0 5803-2) Protein, UA (test 50 mg/dL Negative A code = 99967-7) Glucose, UA (test Negative Negative code = 365) Ketones, UA (test Negative Negative code = 2514-8) Bilirubin, UA (test Negative Negative code = 55963-5) Blood, UA (test code Moderate Negative A = 22805-8) Nitrite, UA (test Negative Negative code = 5802-4) Leukocytes, UA (test Negative Negative code = 5799-2) Urobilinogen, UA 4.0 mg/dL 0.2-1 H (test code = 42246-3) RBC, UA (test code = 122 See_Comment [Autom ated 49431-5) message] The system which generated this result [...] Bacteria, UA (test None Seen code = 61656-0) Mucus (test code = Rare 8247-9) Squam Epithel, UA 25 See_Comment [Automate d (test code = 84529-9) messag e] The system which generated this result transmit joseph reference range : /HPF. The reference range was not used to interpret this result as normal/abnormal . Hyaline Casts, UA 6 See_Comment [Automate d (test code = 30956-3) messag e] The system which generated this result transmit joseph reference range : /LPF. The reference range was not used to interpret this result as normal/abnormal . Crystals, Urine (test None Seen code = 26270-5) Specimen Source (test code = 2795) MADDIE (test code = MADDIE) Rotating Field Assembler ID - [auto]Rotating Field Assembler ID - tech Lab Interpretation Abnormal (test code = 59062-7) [facility]FLEX URINE [id number] 12:09:00 Test Item Value Reference Range Interpretation [...] = 1521) SOURCE(BEAKER) (test code = 2795) Rotating Field Assembler ID - [auto]Rotating Field Assembler ID - techCT, BRAIN, WITHOUT [id number] 08:19:00Unlisted Reason for Exam - Click Yes and Enter Reason Below- >YesPossible acute infarct on prior CT but motion limitedUnlisted Reason for Exam->Possible acute infarct on prior CT but very motion limited. Radiology recommended [facility] : 1970 Sex: FFINAL REPORT [...] MDReport Verified Date/Time: 04/07/2021 08:19:05 Reading Location: [address] Neuro Reading Room brain without IV jhnqvftt5112-40-25 08:19:00Interface, External Ris In - 04/07/2021 8:21 [...] MDReport Verified Date/Time: 04/07/2021 08:19:05 Reading Location: [address] Neuro Reading [facility] [id number] 05:27:00 Test Item Value Reference Range Interpretation [...] S NOT APPLICABLE FOR DIALYSIS PATIEN TS. Rotating Field Assembler ID - [place] MSpecimen moderately qgfoftmEYNILKAFC7481-33-70 05:12:00 Test Item Value Reference Range Interpretation Comments MAGNESIUM (BEAKER) (test code = 1.4 mg/dL 1.6-2.6 L 627) Rotating Field Assembler ID - [place] MHEPATIC FUNCTION [id number] 05:12:00 Test Item Value Reference Range Interpretation [...] (test code = 28 U/L 6-55 347) Rotating Field Assembler ID - [place] MSpecimen moderately ictericPROTHROMBIN TIME/[id number] 04:52:00 Test Item Value Reference Range Interpretation Comments PROTIME (BEAKER) 17.5 seconds 11.9-14.2 H (test code = 759) INR (BEAKER) (test 1.46 See_Comment [Automat ed message] code = 370) The system [employer] generated this result transmitted ref erence range: [...] Comments SARS-COV2/RT-PCR (test Negative Negative code = 24356-2) Influenza A RT-PCR Negative Negative (test code = 68851-4) Influenza B RT-PCR Negative Negative (test code = 05526-0) RSV by RT-PCR (test Negative Negative Performa nce of the code = 69559-0) Xpert Xpress SARS-CoV-2/Flu/ RSV test has only [...] result s.This test has been authorized by F HAYES under an EUA for use by authorized [...] Fact Sh eet for Healthcare Prov iders: https://www.Escom.Moka /Documents/Xper t%20Xpre ss%42NXQN-VuN-4 -Flu-RSV /302-9136%20Rev .%20B%20 HCP%20Fact%20Sh eet.pdf Fact Sheet for Healthcare Loan ents: https://www.Escom.Moka /Documents/Xper t%20Xpre ss%27EOUJ-AzW-8 -Flu-RSV /302-9048%20Rev .%20B%20 Patient%20Fact% 20Sheet. pdf Lab Interpretation Normal (test code = 33393-6) [facility] [id number] 03:01:00 Test Item Value Reference Range Interpretation Comments SARS-COV2/RT-PCR Negative Negative (test code = 3516500) INFLUENZA A RT-PCR Negative Negative (test code = 1086533) INFLUENZA B RT-PCR Negative Negative (test code = 7289523) RSV RT-PCR (test Negative Negative Performanc e of the Xpert code = 7495598) Xpress SARS- CoV-2/Flu/RSV test has only b een established in nasopharyngeal swab specimens. Use of the Xpert Xpress SARS-CoV-2/Flu/ RSV test with other spec imen types has not been as sessed and performance characteristics are unknown. As wi th any molecular test, mutations within the targ eted genetic regions identified by t Xpert Xpress SARS-CoV -2/Flu/RSV test could affe [...] iological data, and other data available to e clinician evalu ating the patient. Inval id test results may occ ur from improper specim en collection; ermias lure to follow the nathalie mmended sample collecti on, handling, and s torage procedures; roldan hnical error. False ne gative results may occ ur if virus is presen t at levels below e analytical limi t of detection (LOD: [...] an EUA fo r use by authorized remy catherine. This test is on ly authorized for [...] sooner.Fact She et for Healthcare Prov iders: https://www.Escom.Moka/D ocuments/Xpert% 20Xpress%2 6UESY-MxZ-1-Flu -RSV/302-4 508%20Rev.%20B% 20HCP%20Fa ct%20Sheet.pdfF act Sheet for Healthcare Patients: https://www.Escom.Moka/D ocuments/Xpert% 20Xpress%2 2GZRQ-NmM-7-Flu -RSV/302-4 507%20Rev.%20B% 20Patient% 20Fact%20Sheet. pdf CT, BRAIN, WITHOUT [id number] 00:40:00Reason for exam:->Confusion [facility] : 1970 Sex: [...] Date/Time: 04/07/2021 00:40:41 High Sensitivity Troponin I ([facility]/Mary Only)2021-04-06 21:40:00 Test Item Value Reference Range Interpretation Comments Troponin I HS <4 See_Comment [Automated (test code = message] The 03248-9) system which generated this result transmitted reference range : <=17 pg/ml. The reference range was not used to interpret this result as normal/abnormal . MADDIE (test code = Rotating Field Assembler ID - MADDIE) DBThe PROCEDURE WRITER STAT High Sensitivity Troponin-I results should be used in conjunction with other diagnostic information such as ECG, clinical observations and information, and patient symptoms to aid in the diagnosis of MD. Lab Interpretation Normal (test code = 96965-7) [facility] HospitalHIGH SENSITIVITY TROPONIN [id number] 21:40:00 Test Item Value Reference Range Interpretation Comments HIGH SENSITIVITY < pg/ml See_Comment [Automated message] TROPONIN I (test code = The system which [id number]) generated this result transmitted ref erence range: <=17. Th e reference range was not used to interpr et this result as normal/abnormal . Rotating Field Assembler ID - DBThe PROCEDURE WRITER STAT High Sensitivity Troponin-I results should be used in conjunctionwith other diagnostic information such as ECG, clinical observations and information, and patient symptoms to aid in the diagnosis of MD.[id number] 21:36:00 Test Item Value Reference Range Interpretation Comments MAGNESIUM (BEAKER) 1.5 mg/dL 1.6-2.6 L Specimen slightly (test code = 627) hemolyzed Rotating Field Assembler ID - NQDWVJZMMWYB1759-17-08 21:36:00 Test Item Value Reference Range Interpretation Comments PHOSPHORUS (BEAKER) 3.0 mg/dL 2.3-4.7 Specimen slightly (test code = 604) hemolyzed Rotating Field Assembler ID - DBCOMPREHENSIVE METABOLIC [id number] 21:36:00 Test Item Value Reference Range Interpretation [...] S NOT APPLICABLE FOR DIALYSIS PATIEN TS. Rotating Field Assembler ID - DBSpecimen moderately ictericBlood alcohol [id number] 21:32:00 Test Item Value Reference Range Interpretation Comments Ethanol Lvl (test <10 See_Comment [Automate d code = 5643-2) message] The system which generated this result transmit ojseph reference range : <=10 mg/dL. The reference range was not used to interpret this result as normal/abnormal . MADDIE (test code = MADDIE) Rotating Field Assembler ID - DB Lab Interpretation Normal (test code = 12933-8) [facility]ANOL[facility] 21:32:00 Test Item Value Reference Range Interpretation Comments ETHANOL (BEAKER) < mg/dL See_Comment [Automated message] The (test code = 400) system [facility] generated this result tra nsmitted reference range : <=10. The reference r jermaine was not used to int erpret this result as normal/abnormal . Rotating Field Assembler ID - IPTxsjduh4365-25-96 21:24:00 Test Item Value Reference Range Interpretation Comments Ammonia (test code = 178 See_Comment [place] 53030-1) moderately hemolyzed [Automated message] The system which generated this result transmit joseph reference range : 18 - 72 mol/L . The reference range was not u sed to interpret th is result as normal/abnormal . MADDIE (test code = MADDIE) Rotating Field Assembler ID - DB Lab Interpretation Abnormal (test code = 42207-8) [facility]AMMONIA2021-[facility] 21:24:00 Test Item Value Reference Range Interpretation Comments AMMONIA (BEAKER) 178 mol/L 18-72 H Specimen mo derately (test code = 348) hemolyzed Rotating Field Assembler ID - DBPT/HCO7403-64-71 20:33:00 Test Item Value Reference Interpretation Comments Range Protime (test code = 17.4 See_Comment H [Autom ated 5902-2) message] The system which generated this result transmitted reference range : 11.9 - 14.2 seconds. The reference range was not used to interpret this result as normal/abnormal . INR (test code = 1.45 See_Comment [Automated 6301-6) message] The system which generated this result transmitted reference range : <=5.90. The reference range was not used to interpret this result as normal/abnormal . PTT (test code = 31.4 See_Comment [Automated 29710-3) message] The system which generated this result [...] valves. Lab Interpretation Abnormal (test code = 27784-2) [facility] HospitalPT/[id number] 20:33:00 Test Item Value Reference Range Interpretation [...] (BEAKER) (test code = 2801) ECG 12 qrpt2275-14-77 13:43:01Interface, External Ris In 03/13/2021 1:43 PM CDTVentricular Rate 111 BPMAtrial Rate 111 BPMP-R Interval 130 msQRS Duration 72 msQ-T Interval 354 msQTC Calculation(Bazett) 481 msP [place] 73 degreesR [place] 12 degreesT [place] 26 degreesSinus tachycardiaLow voltage QRSCannot rule out Anterior infarct (cited on or before 12-MAR-2021)Abnormal ECGWhen compared with ECG of 22-OCT-2020 14:01,T wave inversion more evident in Anterior leadsConfirmed by Antonio Hoffman ([id number]) on 03/13/2021 1:42:58 [facility] COMPREHENSIVE METABOLIC [id number] 15:00:00 Test Item Value Reference Range Interpretation [...] S NOT APPLICABLE FOR DIALYSIS PATIEN TS. Rotating Field Assembler ID - DBSpecimen moderately gtsgpkaGdpwub3526-31-37 14:59:00 Test Item Value Reference Range Interpretation Comments Lipase (test code = 158 U/L 8-78 H 3040-3) MADDIE (test code = MADDIE) Rotating Field Assembler ID - DBSpecimen moderately icteric Lab Interpretation (test Abnormal code = 75892-9) [facility] HospitalLIPASE2021-05-27 14:59:00 Test Item Value Reference Range Interpretation Comments LIPASE (BEAKER) (test code = 749) 158 U/L 8-78 H Rotating Field Assembler ID - DBSpecimen moderately ictericPT/[id number] 14:49:00 Test Item Value Reference Range Interpretation [...] 0-1 PERCENT (BEAKER) (test code = 2801) [id number] 00:00:00Ordered by an unspecified provider.[facility] HospitalCYTO2021-03-26 11:52:00 Test Item Value Reference Range Interpretation Comments CYTO (test code = CYTO) RUN DATE: 01/09/21 [facility] LAB *LIVE* PAGE 1 RUN TIME: 1152 Specimen Inquiry RUN USER: INTERFACE PATIENT: DWAIN ESPINOSA LOC: OK.MS3 U #: [id number] AGE/SX: 50/F ROOM: [place] [address] RE01/06/21[facility] DR: Dru Platt MD : 66 BED: 1 DIS: 01/08/21 STATUS: DIS IN TLOC: SPEC #: [id number] RECD: 01/08/21 STATUS: CRISTELA DELUCA #: [id number] JAX: 01/07/21-1025 [facility] DR: Dru Platt MD ENTERED: 01/08/21 SP [...] INFLAMMATORY CELLS (MOSTLY NEUTROPHILS) AND HISTIOCYTES CPT 65086, 06540 GROSS DESCRIPTION Received and labeled "Ascites", are 1100 ml of carlos fluid. The fluid is set in cytolyt solution for a Thin Prep slide preparation which is stained with Pap stain. A cell block is also performed. Signed SIGNATURE ON FILE Sukhwinder Coe 01/09/21 1152 END OF REPORT [id number] 15:15:00 Test Item Value Reference Range Interpretation [...] H PHOSPHATASE (test code = ALKP) PROTHROMBIN [id number] 06:22:00 Test Item Value Reference Range Interpretation [...] and/or recurren t systemicemboliz ation. CBC W/AUTO [id number] 06:11:00 Test Item Value Reference Range Interpretation [...] 10 3/uL 0.0-0.1 N UR SMEAR EOSINOPHIL [id number] 16:07:00 Test Item Value Reference Range Interpretation Comments UR SMEAR EOSINOPHIL COUNT (test code NEGATIVE NEGATIVE = EOSCTU) BASIC METABOLIC [id number] 15:04:00 Test Item Value Reference Range Interpretation [...] L CA) UA RFLX MICR CULT IF [id number] 14:31:00 Test Item Value Reference Range Interpretation [...] Indication for culture: Suprapubic Pain- DUP VEIN [id number] 12:03:00 [facility]PRESS[facility]: DWAIN ESPINOSA : 1970 Sex: FPatient Name: DWAIN ESPINOSA Unit No: [id number] EXAMS: CPT CODE: [id number] DUP VEIN KACI 64009 Exam: Bilateral lower extremity venous Doppler ultrasound [...] Pallavi Peralta Probe: Trscr Dt/Tm: 01/07/2021 (1203) by:[email or web address] Electronic Signature Date/Time: 01/07/2021 (1203)Orig Print D/T: S: 01/07/2021 (6289) Name: DWAIN ESPINOSA [facility] Phys: [place] [address] : 1970 Age: 50 Sex: [place] [id number] Loc: [place].ERIMCU Exam Date: 01/07/2021 Status: ADM IN PH: FAX: PAGE 1 Signed Report- US PARACENTESIS W IMAGE 2021-01-07 11:29:00 [facility] : 1970 Sex: FPatient Name: DWAIN ESPINOSA Unit No: [id number] EXAMS: CPT CODE: [id number] US PARACENTESIS W IMAGE 16493 ULTRASOUND-GUIDED PARACENTESIS DICTATION LOCATION: A1 History: New [...] 01/07/2021 (1129) by:Anne Electronic Signature Date/Time: 01/07/2021 (112)Orig Print D/T: S: 01/07/2021 (1132) Name: [facility] [place] [place] [address] : 1970 Age: 50 Sex: [place] [phone] Loc: [place].ERIMCU Exam Date: 01/07/2021 Status: ADM IN PH: FAX: PAGE 1 Signed ReportMAGNESIUM 2021-01-07 07:48:00 Test Item Value Reference Range Interpretation Comments MAGNESIUM (test code = MAG) 2.0 mg/dL 1.8-2.4 N THYROID PROFILE [id number] 07:48:00 Test Item Value Reference Range Interpretation Comments T3 UPTAKE (test code = T3UP) 45.0 % 31.0-39.0 H T4 (THYROXINE) (test code = T4) 4.5 ug/dL 4.7-11.4 L T7 (FREE THYROXINE INDEX) (test 2.0 % 1.7-4.2 N code = T7) THYROID STIMULATING HORMONE (test 2.89 mIU/mL 0.36-3.74 N code = TSH) COMPREHENSIVE METABOLIC [id number] 04:37:00 Test Item Value Reference Range Interpretation [...] H PHOSPHATASE (test code = ALKP) LACTIC [id number] 04:37:00 Test Item Value Reference Range Interpretation Comments LACTIC ACID (test code = LACT) 1.9 mmol/L 0.4-2.0 N PROTHROMBIN [id number] 04:35:00 Test Item Value Reference Range Interpretation [...] and/or recurren t systemicemboliz ation. CBC W/AUTO [id number] 04:13:00 Test Item Value Reference Range Interpretation [...] BA#) 0.06 10 3/uL 0.0-0.1 N LACTIC [id number] 01:29:00 Test Item Value Reference Range Interpretation Comments LACTIC ACID (test 2.2 mmol/L 0.4-2.0 H Elevated L actate code = LACT) reported to the following Caregiver:Full Name/Title: KYLIE GARCIA RNby FLACO, on 01/07/21, @ 012 9 LACTIC [id number] 22:09:00 Test Item Value Reference Range Interpretation Comments LACTIC ACID (test 2.2 mmol/L 0.4-2.0 H Elevated L actate code = LACT) reported to the following Careg iver:Full Name/Title: GRETA SCHULZ RN by JASBIR, on 01/06/21, @ 220 4 RN CHECKING TO SEE IF NEEDEDPROTHROMBIN [id number] 18:37:00 Test Item Value Reference Range Interpretation [...] and/or recurren t systemicemboliz ation. THROMBOPLASTIN TIME [id number] 18:37:00 Test Item Value Reference Range Interpretation Comments THROMBOPLASTIN TIME PARTIAL 40.6 SECONDS 25.1-36.5 H (test code = PTT) [id number] 18:06:00 Test Item Value Reference Range Interpretation [...] 0-100 N - CT ABD PELVIS W/O [id number] 16:18:00 [facility] CYPRESSName: DWAIN ESPINOSA : 1970 Sex: FPatient Name: DWAIN ESPINOSA Unit No: [id number] EXAMS: CPT CODE: [id number] CT ABD PELVIS W/O CONT 75903 Site ID: [id number] CLINICAL HISTORY: Liver failure, [...] by: Choco Hart MD CC: Kia Worley ADVERTISING SALES MANAGER; Eric Brito Jr, MD Technologist: Leta Negro; Jazzy Gilmore CTDI: 25.95 DLP: 1420.0 Trscr Dt/Tm: 01/06/2021 (1617) by:[email or web address] Electronic Signature Date/Time: 01/06/2021 (1617)Orig Print D/T: S: 01/06/2021 (1621) Name: ESPINOSADWANI [facility] [place] Phys: Kia Elizondo [address] : 1970 Age: 50 Sex: [place] [phone] Loc: [facility] Exam Date: 01/06/2021 Status: REG ER PH: FAX: PAGE 1 Signed ReportB-TYPE NATRIURETIC [id number] 15:14:00 Test Item Value Reference Range Interpretation Comments B-TYPE NATRIURETIC PEPTIDE (test 77 pg/mL 0-100 N code = BNP) BASIC METABOLIC [id number] 15:00:00 Test Item Value Reference Range Interpretation [...] DATE OF LAST MENSTRUAL PERIOD: 01/07/20LIVER FUNCTION [id number] 15:00:00 Test Item Value Reference Range Interpretation [...] = ALKP) DATE OF LAST MENSTRUAL PERIOD: 01/07/[id number] 15:00:00 Test Item Value Reference Range Interpretation Comments LIPASE (test code = LIP) 212 U/L 73-393 N DATE OF LAST MENSTRUAL PERIOD: 01/07/20HCG SERUM [id number] 15:00:00 Test Item Value Reference Range Interpretation Comments HCG SERUM QUAL (test code = HCGQL) NEGATIVE NEGATIVE DATE OF LAST MENSTRUAL PERIOD: 01/07/[id number] 15:00:00 Test Item Value Reference Range Interpretation Comments TROPONIN-I (test code = TROPI) < 0.02 ng/mL 0.00-0.07 N DATE OF LAST MENSTRUAL PERIOD: 01/07/20LACTIC [id number] 15:00:00 Test Item Value Reference Range Interpretation Comments LACTIC ACID (test 2.5 mmol/L 0.4-2.0 H Elevated L actate code = LACT) reported to the following Caregiver:Full Name/Title: JAKOB PATTERSON Joe NCLAB.JQ, on 01/06/21, @ 150 0 Coronavirus 2018 nCoV [id number] 14:55:00 Test Item Value Reference Range Interpretation Comments Coronavirus 2019 Negative Negative This test h ad not been FDA nCoV Bedside cleared or appr [place]; This (test code = testhas been au thorized by [id number]) FDA under an E UA for use byauthorized la boratories only for the de tection of nucleicacid fro m SARS-CoV-2, not for any oth er viruses orpathogens. ID NOW COVID-19 assay performed on the ID NOWBlue Ant [employer]iatrument i s a rapid molecular in vi [...] Sharon ndments of 1987 (CLIA), BASIC METABOLIC [id number] 14:45:00 Test Item Value Reference Range Interpretation [...] DATE OF LAST MENSTRUAL PERIOD: 01/07/20LIVER FUNCTION [id number] 14:45:00 Test Item Value Reference Range Interpretation [...] 45-117 ALKP) DATE OF LAST MENSTRUAL PERIOD: 01/07/[id number] 14:45:00 Test Item Value Reference Range Interpretation Comments LIPASE (test code = LIP) U/L 73-393 DATE OF LAST MENSTRUAL PERIOD: 01/07/20HCG SERUM [id number] 14:45:00 Test Item Value Reference Range Interpretation Comments HCG SERUM QUAL (test code = HCGQL) NEGATIVE NEGATIVE DATE OF LAST MENSTRUAL PERIOD: 01/07/[id number]-[id number] 14:45:00 Test Item Value Reference Range Interpretation Comments TROPONIN-I (test code = TROPI) ng/mL 0.00-0.07 DATE OF LAST MENSTRUAL PERIOD: 01/07/20CBC W/AUTO [id number] 14:33:00 Test Item Value Reference Range Interpretation [...] 3/uL 0.0-0.1 N - XR CHEST 1 [id number] 13:20:00 [facility] : 1970 Sex: FPatient Name: DWAIN ESPINOSA Unit No: [id number] EXAMS: CPT CODE: [id number] XR CHEST 1 V 90780 CHEST, SINGLE VIEW DICTATION LOCATION Q3NAUEGTM: Abdominal pain. A single view of the [...] Noel Bach Jr, MD CC: Kia Worley ADVERTISING SALES MANAGER; Eric Brito Jr, MD Technologist: Hina Richardson Fluoro Time: DAP (Gy m2): Air Kerma (mGy): Trscr Dt/Tm: 01/06/2021 (1320) by:Anne Electronic Signature Date/Time: 01/06/2021 (1320)Orig Print D/T: S: 01/06/2021 (1323) Name: [facility] Kia Elizondo [address] : 1970 Age: 50 Sex: [place] [phone] Loc: [place].ERS Exam Date: 01/06/2021 Status: REG ER PH: FAX: PAGE 1 Signed ReportHepatitis C [id number] 20:39:00 Test Item Value Reference Range Interpretation Comments HCV 3 The method used in this Genotype, test is RT-PCR and LiPA (test reversehybridiz ation (Line code = Probe) of the 5 ' UTR and ) coreregion of t he HCV genome. The lucas lytical performance lance racteristics of thisassay frey ve been determined by [facility] DiagnosticsInfe ctious Disease. The mo difications have not beencl eared or approved by the FDA. This assay has beenv alidated pursuant to the CLIA regulations and isused for clinical purpos es. For additional info rmation, please refer [email or web address] ion.Kiko /faq/HCVGenotyp ing(This link id being p rovided for informational/e ducational purposes only.) MADDIE (test Performing Lab code = MADDIE) *QDID WorkerBee Virtual [employer]ist[employer] [facility] [address] [place] [address] Arnie Phillips MD [facility] HospitalActin (Smooth Muscle) Antibody, [id number] 01:39:00 Test Item Value Reference Interpretation Comments Range Anti-Smooth Muscle 23 U See Note: H Reference Range:<20 Ab (test code = NEGATI VE> OR ) = 20 POSITIVE Antibodies recognizing act in are the main componentof smo oth muscle antibodi es associated withautoimmune liver disease. Actin antibodie s arefound in approximately 7 5% of patients withautoimmune hepatitis (AIH) type 1, qboverdmswvst82 % of patients with autoimmune cholangitis,mary bi mately 30% of patients with primary biliarycirrhosi s, and approximate ly 2% of healthy people.High barb ues are closely correlated with AIH type 1. MADDIE (test code = Performing Lab MADDIE) EZ ESBATechols [place] [address] [place] [address] Wilder Ochoa MD, PhD, BEATRICE Lab Interpretation Abnormal (test code = 49267-5) [facility] HospitalBLOOD [id number] 18:00:00 Test Item Value Reference Range Interpretation Comments CULTURE (BEAKER) (test No growth in 5 days code = 1095) ANTI-MITOCHONDRIAL AB, REFLEX TO [id number] 10:14:00 Test Item Value Reference Range Interpretation Comments SCAN RESULT (test code = 6316362) Anti-Mitochondrial Ab, reflex to [id number] 10:14:00Scan ResultQUEST DIAGNOSTIC INCORPORATEDSierra Vista HospitalMitochondrial Ab Screen 2020-10-25 12:18:00 Test Item Value Reference Range Interpretation Comments Anti-Mitocho NEGATIVE NEGATIVE This test was developed nd Abs (test and its analyti vasile code = performance 3998092) characteristics havebeen determined by [facility].It h as not been cleared or approved by FDA. This as say has been validatedp ursuant to the CLIA reg ulations and is used for clinical purposes. MADDIE (test Performing Lab code = MADDIE) EZ WorkerBee Virtual Assistants [address] [address] Wilder Ochoa MD, PhD, BEATRICE [facility] HospitalMitochondrial Ab [id number] 12:18:00 Test Item Value Reference Range Interpretation Comments Mitochondrial Ab TNP See_Comment Test Not Titer (test code = Performed . 7219455) Screening test Negative or Not Detected. Titer notperformed. [Automated message] The system which generated this result transmitted reference range : <1:20. The reference range was not used to interpret this result as normal/abnormal . MADDIE (test code = Performing Lab MADDIE) EZ Work[employer]ist[employer] [address] [address] Wilder Ochoa MD, PhD, BEATRICE [facility] HospitalCeruloplasmin2021-01-09 11:45:00 Test Item Value Reference Range Interpretation Comments Ceruloplasmin (test code 27 mg/dL 18-53 = 20191208) MADDIE (test code = MADDIE) Performing Lab *BARB WorkerBee Virtual Assistants [facility], [address] [place] [address] Dahiana Small MD [facility] HospitalHepatitis C PCR, [id number] 22:54:00 Test Item Value Reference Range Interpretation Comments HCV PCR, Quantitative 251300 See_Comment H [Auto mated (test code = 49580-2) messag e] The system which generated this result transmitted reference range : <15 IU/mL. The reference range was not used to interpret this result as normal/abnormal . MADDIE (test code = MADDIE) This test uses a Real-Time Polymerase Chain Reaction (RT-PCR) methodology and was performed using MARIXA Ampliprep/MARIXA TaqMan HCV test kit version 2.0 ([employer] Reportable range for this assay is 15 - 100,000,000 IU per mL (1.18 - 8.00 Log IU/mL). Lab Interpretation Abnormal (test code = 65686-1) [facility] HospitalHEPATITIS C PCR, [id number] 22:54:00 Test Item Value Reference Range Interpretation Comments HCV NUMERIC RESULT (BEAKER) 620220 IU/mL <15 H (test code = 2700) This test uses a Real-Time Polymerase Chain Reaction (RT-PCR) methodology and was performed using MARIXA Ampliprep/MARIXA TaqMan HCV test kit version 2.0 ([employer]).Reportable range for this assay is 15 - 100,000,000 IU per mL (1.18 - 8.00 Log IU/mL).U/S, ABDOMINAL, [id number] 17:32:00Labs to be ordered:->Body Fluid Culture (w/Gram Stain, C\\T\\S) Labs to be ordered:->Cell Count Labs to be ordered:->Glucose+LDH+Protein Labs to be ordered:->Cytology Reason for exam:->diagnostic para for new ascites in pt w/ cirrhosisADVENTIST HEALTH SIMI [facility]LEYName: [facility] : 1970 Sex: FFINAL REPORT Limited abdominal ultrasound CLINICAL HISTORY: Ascites F INDINGS: A limited abdominal ultrasound was performed and only a trace amount of fluid was seen. Therefore a paracentesis was not performed. Signed: Alex Cervantes Verified Date/Time: 10/24/2020 17:32:34 Reading Location: [facility] P006J Ultrasound Reading Room US abdomen [id number] 17:32:00Interface, External Ris In - 10/24/2020 5:34 PM CSTFINAL REPORT Limited abdominal ultrasound CLINICAL HISTORY: Ascites FINDINGS: A limited abdominal ultrasound was performed and only a trace amount of fluid was seen. Therefore a paracentesis was not performed. Signed: Alex Cervantes Verified Date/Time: 10/24/2020 17:32:34 Reading Location: [place] [id number] Ultrasound Reading Room [facility] AreaCOMPREHENSIVE METABOLIC PANEL 2020-10-24 03:23:00 Test Item Value [...] S NOT APPLICABLE FOR DIALYSIS PATIEN TS. Rotating Field Assembler ID - PIAYA LSpecimen slightly ictericPROTHROMBIN TIME/[id number] 03:08:00 Test Item Value Reference Range Interpretation [...] mechanical heart valves.CBC W/PLT COUNT & AUTO [id number] 02:45:00 Test Item Value Reference Range Interpretation [...] 0-1 PERCENT (BEAKER) (test code = 2801) [id number] 12:56:00 Test Item Value Reference Range Interpretation Comments Ferritin (test code = 71.00 ng/mL 5275 2276-4) MADDIE (test code = MADDIE) Rotating Field Assembler ID - AAHAMID Lab Interpretation (test Normal code = 82151-8) [facility] HospitalFolate, [id number] 12:56:00 Test Item Value Reference Range Interpretation Comments Folate (test code = 12.30 ng/mL See_Comment [Automa joseph 2284-8) message] The system which generated this result transmit joseph reference range : >=7.00. The reference range was not used to interpret this result as normal/abnormal . MADDIE (test code = MADDIE) Rotating Field Assembler ID - AAHAMID Lab Interpretation Normal (test code = 66075-1) [facility] HospitalFERRITIN2021-01-07 12:56:00 Test Item Value Reference Range Interpretation Comments FERRITIN (BEAKER) (test code = 71.00 ng/mL 5.00-275.00 361) Rotating Field Assembler ID - AAHAMIDFOLATE, [id number] 12:56:00 Test Item Value Reference Range Interpretation Comments FOLATE (BEAKER) (test code = 362) 12.30 ng/mL >=7.00 Rotating Field Assembler ID - AAHAMIDAnti-Nuclear Antibody (LUCAS)2020-10-23 10:30:00 Test Item Value Reference Range Interpretation Comments LUCAS (test code = 40074-7) Negative Negative MADDIE (test code = MADDIE) Test performed by IFA method.Test performed by IFA method. Lab Interpretation (test Normal code = 32731-7) [facility] HospitalANTI-NUCLEAR ANTIBODY (LUCAS)2020-10-23 10:30:00 Test Item Value Reference Range Interpretation Comments ANTI-NUCLEAR ANTIBODY (LUCAS) (BEAKER) Negative Negative (test code = 418) Test performed by IFA method.Test performed by IFA method.Hepatitis panel, acute 2020-10-23 10:06:00 Test Item Value Reference Range Interpretation Comments Hep A IgM (test code = Nonreactive Nonreactive 53662-8) Hep B C IgM (test code = Nonreactive Nonreactive 80581-6) Hepatitis C Ab (test Reactive Nonreactive A code = 91491-2) HBsAg Screen (test code Nonreactive Nonreactive = 5195-3) MADDIE (test code = MADDIE) Rotating Field Assembler ID - [place] M Lab Interpretation (test Abnormal code = 30796-0) [facility] HospitalHEPATITIS PANEL, [id number] 10:06:00 Test Item Value Reference Range Interpretation Comments HEPATITIS A IGM ANTIBODY (BEAKER) Nonreactive Nonreactive (test code = 498) HEPATITIS B CORE IGM ANTIBODY Nonreactive Nonreactive (BEAKER) (test code = 645) HEPATITIS C ANTIBODY (BEAKER) Reactive Nonreactive A (test code = 367) HEPATITIS B SURFACE ANTIGEN (2) Nonreactive Nonreactive (BEAKER) (test code = 2585) Rotating Field Assembler ID - [place] MVitamin [id number] 09:44:00 Test Item Value Reference Range Interpretation Comments Vitamin B12 (test code = 1494 pg/mL 213-816 H 2132-9) MADDIE (test code = MADDIE) Rotating Field Assembler RIGOBERTO CONRAD M Lab Interpretation (test Abnormal code = 63407-2) [facility] HospitalVITAMIN [id number] 09:44:00 Test Item Value Reference Range Interpretation Comments VITAMIN B12 (BEAKER) (test code = 1494 pg/mL 213-816 H 774) Rotating Field Assembler ID Bridger CONRAD MALPHA FETOPROTEIN (AFP), TUMOR [id number] 08:27:00 Test Item Value Reference Range Interpretation Comments ALPHA-FETOPROTEIN (BEAKER) (test code < ng/mL <10.0 = 1094) Rotating Field Assembler RIGOBERTO CONRAD MHepatitis A antibody, [id number] 07:42:00 Test Item Value Reference Range Interpretation Comments Hep A IgG (test code = Reactive Nonreactive A 38159-3) MADDIE (test code = MADDIE) Rotating Field Assembler RIGOBERTO CONRAD M Lab Interpretation (test Abnormal code = 41966-1) [facility], [id number] 07:42:00 Test Item Value Reference Range Interpretation Comments HEPATITIS A IGG ANTIBODY (BEAKER) Reactive Nonreactive A (test code = 2797) Rotating Field Assembler ID Bridger CONRAD MCOMPREHENSIVE METABOLIC [id number] 07:41:00 Test Item Value Reference Range Interpretation [...] S NOT APPLICABLE FOR DIALYSIS PATIEN TS. Rotating Field Assembler ID - [place] MSpecimen slightly [id number] 07:11:00 Test Item Value Reference Range Interpretation Comments MAGNESIUM (BEAKER) (test code = 1.8 mg/dL 1.6-2.6 627) Rotating Field Assembler ID - [place] MHepatitis B core antibody, [id number] 07:01:00 Test Item Value Reference Range Interpretation Comments Hep B Core Total Ab Nonreactive Nonreactive (test code = 67923-0) MADDIE (test code = MADDIE) Rotating Field Assembler ID - [place] M Lab Interpretation (test Normal code = 36858-4) [facility]TIBODY, [id number] 07:01:00 Test Item Value Reference Range Interpretation Comments HEPATITIS B CORE TOTAL ANTIBODY Nonreactive Nonreactive (BEAKER) (test code = 497) Rotating Field Assembler ID - [place] Rosa M, TIBC, % sat. (without ferritin)2020-10-23 06:37:00 Test Item Value Reference Range Interpretation Comments Iron (test code = 2498-4) 129.0 ug/dL 40-160 TIBC (test code = 2500-7) 178 ug/dL 250-450 L Iron % Saturation (test 72 % 20-55 H code = 2502-3) MADDIE (test code = MADDIE) Rotating Field Assembler ID - [place] M Lab Interpretation (test Abnormal code = 03569-2) [facility], TIBC, % SAT. (WITHOUT FERRITIN)2020-10-23 06:37:00 Test Item Value Reference Range Interpretation Comments IRON (BEAKER) (test code = 547) 129.0 ug/dL 40.0-160.0 TOTAL IRON BINDING CAPACITY 178 ug/dL 250-450 L (BEAKER) (test code = 769) IRON % SATURATION (2) (BEAKER) 72 % 20-55 H (test code = 2590) Rotating Field Assembler ID - [place] [id number] 06:36:00 Test Item Value Reference Range Interpretation Comments A-1 Antitrypsin (test code 102.40 mg/dL 90-200 = 1825-9) MADDIE (test code = MADDIE) Rotating Field Assembler ID - [place] M Lab Interpretation (test Normal code = 39956-0) [id number] 06:36:00 Test Item Value Reference Range Interpretation Comments ALPHA-1 ANTITRYPSIN (BEAKER) 102.40 mg/dL 90.00-200.00 (test code = 502) Rotating Field Assembler ID - [place] MPROTHROMBIN TIME/[id number] 06:21:00 Test Item Value Reference Range Interpretation [...] is2.5-3.5 for patients wiht mechanical heart valves.Reticulocyte [id number] 05:50:00 Test Item Value Reference Range Interpretation Comments % Retic (test code = 4.6 % 0.5-1.7 H 94197-7) MADDIE (test code = MADDIE) Rotating Field Assembler ID - 6000 Lab Interpretation (test Abnormal code = 39927-9) [facility] HospitalRETICULOCYTE [id number] 05:50:00 Test Item Value Reference Range Interpretation Comments RETICULOCYTE COUNT PCT (BEAKER) (test 4.6 % 0.5-1.7 H code = 575) Rotating Field Assembler ID - 6000Hemoglobin and [id number] 05:49:00 Test Item Value Reference Range Interpretation Comments Hemoglobin (test code = 9.0 See_Comment L [Au tomated message] 786-4) The system [employer] generated this result transmitted ref erence range: 11.2 - 1 5.7 GM/DL. The refe rence range was not u sed to interpret this result as normal/abnor mal. Hematocrit (test code = 30.0 % 34.1-44.9 L 4544-3) Lab Interpretation (test Abnormal code = 12858-3) [facility] W/PLT COUNT & AUTO [id number] 05:49:00 Test Item Value Reference Range Interpretation [...] (BEAKER) (test code = 2801) HEMOGLOBIN AND [id number] 05:49:00 Test Item Value Reference Range Interpretation Comments HEMOGLOBIN (BEAKER) (test code = 9.0 GM/DL 11.2-15.7 L 410) HEMATOCRIT (BEAKER) (test code = 30.0 % 34.1-44.9 L 411) U/S, ABDOMINAL, WITH [id number] 21:58:00Reason for exam:->ascites, cirrhosisAD[facility]Name[facility] : 1970 Sex: FFINAL REPORT [...] Verified Date/Time: 10/22/2020 21:58:54 US abdominal with [id number] 21:58:00Interface, External Ris In - 10/23/2020 2:18 [...] Mila Garcia MDReport Verified Date/Time: 10/22/2020 21:58:54 [facility]Asymptomatic ONLY)2020-10-22 20:15:00 Test Item Value Reference Range Interpretation Comments SARS-COV2/RT-PCR Negative Not Detected, (test code = Negative, See 21874-7) external report for linked test SARS-COV-2 [facility] PERFORMING LAB (test code = 35514-6) MADDIE (test code = Negative result for [...] of the Act. Fact Sheet for Healthcare Providers:https://www.[employer]/sites/default/f christina/product/documents/F act_Sheet_HC_Providers_L rwn_KFHK-IpP-2.pdf Fact Sheet for Healthcare Patients:https://www.[employer]sites/default/fi les/product/documents/Fa ct_Sheet_Patients_Lyra_S ARS-CoV-2.pdf Performing Laboratory:[facility] [place] [address] [facility])2020-10-22 20:15:00 Test Item Value Reference Range Interpretation Comments SARS-COV2/RT-PCR (test Negative Not Detected, Negative, code = 5614880) See external report for linked test SARS-COV-2 PERFORMING LAB [facility] (test code = 4313370) Negative result for this test determines that [...] 564(g) of the Act.Fact Sheet for Healthcare Providers:https://www.[employer]/sites/default/files/product/documents/Fact_Shee z_BM_Lfkuuzdgt_Igef_ZMXA-EmF-8.pdfFact Sheet for Healthcare Patients:https://www.[employer].com/sites/default/files/product/ documents/Iigf_Zvkpz_Crolqrpi_Hzmd_PMLX-RzQ-9.pdfPerforming Laboratory:[facility], [place] [address]TKJLZEFMOJ W/ REFLEX URINE [id number] 17:46:00 Test Item Value Reference Range Interpretation [...] = 516) SOURCE(BEAKER) (test code = 2795) Rotating Field Assembler ID - techRAD, CHEST, 1 VIEW, NON [id number] 15:35:00Reason for exam:->abd painShould this be performed at the bedside?->Yes [facility]S DWAIN MOJICA : 1970 Sex: FFINAL REPORT CHEST AP PORTABLE History provided: Abdominal pain Heart size magnified by projection. Lungs grossly clear and vascularity normal. Signed: Huang Garciaeport Verified Date/Time: 10/22/2020 15:35:51 Reading Location: [facility] Radiology Reading Room XR chest 1 view portable / [id number] 15:35:00Interface, External Ris In - 10/22/2020 3:38 PM CSTFINAL REPORT CHEST AP PORTABLE History provided: Abdominal pain Heart size magnified by projection. Lungs grossly clear and vascularity normal. Signed: Huang Garcia MDReport Verified Date/Time: 10/22/2020 15:35:51 Reading Location: [facility] Radiology Reading Room [facility] I (not available at [facility] [place])2020-10-22 14:52:00 Test Item Value Reference Range Interpretation Comments Troponin I (test code = 0.01 ng/mL 0-0.03 02884-1) MADDIE (test code = MADDIE) Troponin I [...] ADMIN Lab Interpretation (test Normal code = 91629-0) [facility] [id number] 14:52:00 Test Item Value Reference Range Interpretation [...] failure, acidosis, acute neurological disease, and persistent tachyarrhythmia.Rotating Field Assembler ID - ADMINBASIC METABOLIC PANEL 2020-10-22 14:48:00 [...] S NOT APPLICABLE FOR DIALYSIS PATIEN TS. Rotating Field Assembler ID - ADMINSpecimen slightly ictericHEPATIC FUNCTION [id number] 14:48:00 Test Item Value Reference Range Interpretation [...] code = 61 U/L 6-55 H 347) Rotating Field Assembler ID - ADMINSpecimen slightly ictericCBC W/PLT COUNT & AUTO [id number] 14:28:00 Test Item Value Reference Range Interpretation [...]
[2021-05-06] MEDS ORDERED: LORazepam 2 MG/ML VIAL ONE (02:40)
[2021-05-06] MEDS ORDERED: D5W 1,000 ML IV ONE (02:44)
--- NOTE | 2021-05-06 02:49 | ER ---
Nurse's Notes [facility] Name: Lorena Hansen Age: 51 yrs Sex: Female : 1970 Arrival Date: 05/06/2021 Time: 00:22 Bed 8 Private MD: Diagnosis: Hepatic encephalopathy;Altered mental status, unspecified Presentation: 05/06 00:57 Chief complaint: Spouse and/or significant other states: pt liver enzymes must be up pt bb is confused. Coronavirus screen: At this time, the client does not indicate any symptoms associated with coronavirus-19. Ebola Screen: No symptoms or risks identified at this time. Initial Sepsis Screen: Does the patient meet any 2 criteria? No. Patient's initial sepsis screen is negative. Does the patient have a suspected source of infection? No. Patient's initial sepsis screen is negative. Risk Assessment: Do you want to hurt yourself or someone else? Unable to obtain. Onset of symptoms was May 06, 2021. 00:57 Method Of Arrival: Wheelchair bb 00:57 Acuity: SUDHA 2 bb TICKET SPECULATOR: 00:59 LMP N/A - bb Historical: - Allergies: 00:59 ondansetron; bb 00:59 PENICILLINS; bb - Home Meds: 00:59 Lactulose Oral [Active]; bb - PMHx: 00:59 Cirrhosis; COLON CA; bb - Immunization history:: Adult Immunizations up to date, Client reports having NOT received the Covid vaccine. - Social history:: Smoking status: Patient reports the use of cigarette tobacco products, denies chronic smoking, but will smoke occasionally, Patient/guardian denies using alcohol. - Family history:: not pertinent. - Hospitalizations: : Patient was recently seen at Patient was [facility]. Screenin:31 Abuse screen: Denies threats or abuse. Denies injuries from another. Nutritional ak2 screening: No deficits noted. Tuberculosis screening: No symptoms or risk factors identified. Fall Risk None identified. Assessment: 03:31 Reassessment: Patient and/or family updated on plan of care and expected duration. Pain ak2 level reassessed. General: Appears in no apparent distress. Pain: Denies pain. Cardiovascular: No deficits noted. Respiratory: No deficits noted. 04:17 General: report called to rn. ak2 Vital Signs: 00:57 BP 161 / 104; Pulse 104; Resp 20 S; Temp 98.7(O); Pulse Ox 95% on R/A; Weight 68.04 kg bb (R); 04:06 BP 152 / 91; Pulse 88; Resp 19; Pulse Ox 95% ; ea ED Course: 00:22 Patient arrived in ED. ag3 00:48 Geraldo Yates MD is Attending Physician. rn 00:59 Triage completed. bb 00:59 Arm band placed on Patient placed in an exam room, on a stretcher, on pulse oximetry. bb Family accompanied patient. 02:48 Romel Yates MD is Hospitalizing Provider. rn 03:31 Patient has correct armband on for positive identification. ak2 03:31 No provider procedures requiring assistance completed. Inserted saline lock: 20 gauge ak2 in right forearm, using aseptic technique. 04:05 Patient admitted, IV remains in place. ea Administered Medications: 02:20 Drug: Ativan (LORazepam) 1 mg Route: IVP; Site: right wrist; bb 03:00 Follow up: Response: No adverse reaction ea 02:42 Drug: D5W 1000 ml Route: IV; Rate: 150 ml/hr; Site: left forearm; ea 04:52 Follow up: Response: No adverse reaction; IV Status: Infusion continued upon admission ea 04:07 Drug: Lactulose 30 grams Volume: 45 ml; Route: PO; ak2 04:52 Follow up: Response: No adverse reaction ea Outcome: 02:49 Decision to Hospitalize by Provider. rn 04:05 Instructed on the need for admit. ea 04:51 Admitted to Med/surg accompanied by nurse, via stretcher, with chart, Report called to ea Receiving nurse in ED 04:51 Condition: stable 04:54 Patient left the ED. ea Signatures: Vivi Hedrick RN RN bb Nieto, Roman, MD MD rn Antunez, Elena, RN RN ea Gomez, Alice 3 Miguel Angel Love la2
--- NOTE | 2021-05-06 02:49 | EDPHYS ---
Physician Documentation [facility] Name: Lorena Hansen Age: 51 yrs Sex: Female : 1970 Arrival Date: 05/06/2021 Time: 00:22 Bed 8 Private MD: ED Physician Geraldo Yates HPI: 05/06 01:04 This 51 yrs old Female presents to ER via Wheelchair with complaints of rn Confused. 01:04 The patient presents with confusion, decreased responsiveness, disorientation. Onset: rn The symptoms/episode began/occurred today. Possible causes: Liver failure and ammonia problems. Associated signs and symptoms: Pertinent positives: confusion, Pertinent negatives: chest pain, headache, seizure, vomiting. Current symptoms: In the emergency department the patient's symptoms are unchanged from the initial presentation. The patient has experienced similar episodes in the past. The patient has been recently seen by a physician:. Boyfriend states altered mental status that began earlier today. Took 2 extra doses of her lactulose. States compliant with lactulose recently. Denies recent head injury. No known fever. Patient denies shortness of breath or abdominal pain vomiting or diarrhea. 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 - Social history:: Smoking status: Patient reports the use of cigarette tobacco products, denies chronic smoking, but will smoke occasionally, Patient/guardian denies using alcohol. - Family history:: not pertinent. - Hospitalizations: : Patient was recently seen at Patient was recently seen at [facility]. ROS: 01:04 Constitutional: Negative for fever, chills, and weight loss, Eyes: Negative for injury, rn pain, redness, and discharge, ENT: Negative for injury, pain, and discharge, Neck: Negative for injury, pain, and swelling, Cardiovascular: Negative for chest pain, palpitations, and edema, Respiratory: Negative for shortness of breath, cough, wheezing, and pleuritic chest pain, Abdomen/GI: Negative for abdominal pain, nausea, vomiting, diarrhea, and constipation, Back: Negative for injury and pain, : Negative for injury, bleeding, discharge, and swelling, MS/Extremity: Negative for injury and deformity, Skin: Negative for injury, rash, and discoloration, Neuro: Negative for headache, numbness, tingling, and seizure. Exam: 01:04 Constitutional: Disheveled patient in no acute distress Head/Face: Normocephalic, rn atraumatic. ENT: Dry mucous membranes Cardiovascular: Tachycardic, regular. No pulse deficits. Respiratory: No increased work of breathing, no retractions or nasal flaring. Abdomen/GI: Soft nontender, no masses Skin: Warm dry no evidence of cellulitis. Positive excoriations and open wounds to bilateral lower extremities, no fluctuance or signs of abscess MS/ Extremity: Pulses equal, no cyanosis. Neurovascular intact. Full, normal range of motion. Equal circumference. 2+ pitting edema bilateral lower extremities Neuro: Somnolent, easily arousable to voice. GCS 15, oriented to person, place, time, and situation. Motor strength 4/5 in all extremities. Sensory grossly intact. Vital Signs: 00:57 BP 161 / 104; Pulse 104; Resp 20 S; Temp 98.7(O); Pulse Ox 95% on R/A; Weight 68.04 kg bb (R); 04:06 BP 152 / 91; Pulse 88; Resp 19; Pulse Ox 95% ; ea MDM: 00:48 Patient medically screened. rn 01:29 Differential Diagnosis: electrolyte abnormality, pneumonia, UTI, volume depletion, rn hepatic encephalopathy. Data reviewed: vital signs, nurses notes, EKG, and as a result, I will admit patient. Counseling: I had a detailed discussion with the patient and/or guardian regarding: the historical points, exam findings, and any diagnostic results supporting the discharge/admit diagnosis. 02:47 Admission orders: after a detailed discussion of the patient's condition and case, the hand ornament maker orders are written by me. ED course: Lab states not able to perform Ammonia testing due to machine problem. . 05/06 00:59 Order name: CBC with Diff rn 05/06 00:59 Order name: Basic Metabolic Panel rn 05/06 00:59 Order name: Protime (+inr) rn 05/06 00:59 Order name: Ptt, Activated rn 05/06 00:59 Order name: Urine Culture rn 05/06 00:59 Order name: Urine Microscopic Only rn 05/06 00:59 Order name: CT Head Brain wo Cont rn 05/06 00:59 Order name: Procalcitonin rn 05/06 00:59 Order name: AMMONIA rn 05/06 00:59 Order name: XRAY Chest (1 view) rn 05/06 00:59 Order name: COVID-19 : Document "Date of Symptom Onset" if Symptomatic. rn 05/06 01:00 Order name: ETOH Level rn 05/06 01:59 Order name: LFT's rn 05/06 00:59 Order name: IV Start; Complete Time: 01:42 rn 05/06 00:59 Order name: EKG; Complete Time: 01:01 rn 05/06 00:59 Order name: EKG - Nurse/Tech; Complete Time: 01:21 rn Administered Medications: 02:20 Drug: Ativan (LORazepam) 1 mg Route: IVP; Site: right wrist; bb 03:00 Follow up: Response: No adverse reaction ea 02:42 Drug: D5W 1000 ml Route: IV; Rate: 150 ml/hr; Site: left forearm; ea 04:52 Follow up: Response: No adverse reaction; IV Status: Infusion continued upon admission ea 04:07 Drug: Lactulose 30 grams Volume: 45 ml; Route: PO; ak2 04:52 Follow up: Response: No adverse reaction ea Disposition Summary: 05/06/21 02:49 Hospitalization Ordered Hospitalization Status: Inpatient Admission rn Provider: Romel Yates rn Location: Telemetry/[facility] (Inpatient) rn Condition: Stable rn Problem: an ongoing problem rn Symptoms: have improved rn Bed/Room Type: Standard rn Room Assignment: 206(05/06/21 03:55) mw Diagnosis - Hepatic encephalopathy rn - Altered mental status, unspecified rn Forms: - Medication Reconciliation Form rn - SBAR form rn Signatures: Dispatcher [employer] Eliz Bass RN Vivi Pacheco, RN Geraldo Brewer MD MD rn Attema, Lee, MEDICAL PATHOLOGY TEACHER-C MEDICAL PATHOLOGY TEACHER-Edgar1 Alicia Stevenson RN Miguel Angel Holbrook ea2 Corrections: (The following items were deleted from the chart) 03:55 02:49 rn mw
[2021-05-06] MEDS ORDERED: LACTULOSE 20 GM/30 ML UCUP ONE (04:29)
[2021-05-06 05:23] LABS: Absolute Lymphocytes (CBC) 0.9 K/uL (0.7-4.9); Basophils % 0.8 % (0-1.3); Hematocrit 26.9 % (36.0-45.0); Lymphocytes % 29.5 % (15.3-44.8); Potassium 3.4 mmol/L (3.5-5.1); Protime INR 1.34; RBC Red Blood Cell Count 3.04 M/uL (3.86-4.86)
--- NOTE | 2021-05-06 05:24 | P.HP ---
Certification for Inpatient Patient admitted to: Inpatient With expected LOS: >2 Midnights Patient will require the following post-hospital care: None Practitioner: I am a practitioner with admitting privileges, knowledge of patient current condition, hospital course, and medical plan of care. Services: Services provided to patient in accordance with Admission requirements found in Title 42 Section 412.3 of the Code of Federal Regulations Patient History Date of Service: 05/06/21 Primary Care Provider: None Reason for admission: Hepatic encephalopathy History of Present Illness: 51-year-old female with history of alcoholic cirrhosis of the liver presents emergency department for altered mental status. Significant other reports that patient was seen at another facility and admitted overnight approximately 1 week prior for similar and treated with lactulose, I discharge patient significant other reports that she is still slightly altered but had improved. Significant other reports that patient became significantly confused over the course of the last 24 hours/aggressive with him at home and he brought her into the emergency department for evaluation. Patient with multiple admissions for similar in the past here. Patient was evaluated in the emergency department, labs were significant for white blood cell count 2.9 platelets 63 sodium 146 potassium 3.4 glucose 90 procalcitonin less than 0.05. Unfortunate this time lab machine for checking ammonia level is down but clinically patient has hepatic encephalopathy. Patient was given 1 mg of Ativan for agitation/aggression in the emergency department as well as 30 mL of lactulose p.o. ED progress is to admit for further evaluation and management Allergies ondansetron [From Zofran] Allergy (Verified 06/14/20 21:06) Anaphylaxis Penicillins Allergy (Verified 04/16/21 11:08) Anaphylaxis Home Medications: Amlodipine [Norvasc*] 5 mg PO DAILY #30 tab 02/20/21 Furosemide [Lasix*] 40 mg PO BID #60 tab 02/20/21 Folic Acid 1 mg PO DAILY #90 tablet 03/28/21 Lactulose [Cephulac*] 45 ml PO TID #4000 ml 03/28/21 Metoprolol Tartrate [Lopressor*] 25 mg PO BID 6AM 6PM #60 tab 03/28/21 Multivit with Iron,Minerals [Complete Senior] 1 each PO DAILY #90 tablet 03/28/21 Pantoprazole [Protonix Tab*] 40 mg PO Q12H #60 tab 03/28/21 Rifaximin [Xifaxan] 550 mg PO BID #60 03/28/21 Thiamine HCl 100 mg PO DAILY #90 tablet 03/28/21 Spironolactone [Aldactone*] 50 mg PO DAILY #60 tab 04/17/21 - Past Medical/Surgical History Diabetic: No -: Advanced liver cirrhosis -: History of GERD with ulcer -: Diastolic CHF -: History of Esophageal varices -: Methamphetamine abuse -: Noncompliance with medication -: Recurrent admissions for hepatic encephalopathy -: Endoscopy -: GB Sx Psychosocial/ Personal History: Unknown - Family History Mother -: Cancer Father -: Heart disease - Social History Smoking Status: Unknown if ever smoked Alcohol use: No CD- Drugs: No Caffeine use: No Place of Residence: Home Review of Systems is unable to be obtained Physical Examination - Physical Exam General: Alert, Oriented x1 HEENT: Atraumatic, Normocephalic Neck: Supple Respiratory: Clear to auscultation bilaterally, Diminished Cardiovascular: Normal S1 S2, Edema Capillary refill: <2 Seconds Gastrointestinal: Normal bowel sounds, No tenderness, No masses, No rebound, No guarding, Distended, Ascites Musculoskeletal: No contractures, No erythema Integumentary: No erythema, No warmth Neurological: Normal strength at 5/5 x4 extr, Sensation intact Assessment and Plan - Plan Assessment Hepatic encephalopathy secondary to alcoholic cirrhosis of the liver Chronic thrombocytopenia Mild hypernatremia Plan Hepatic encephalopathy secondary to alcoholic cirrhosis of the liver: Continue with p.o. lactulose, rifampin. N.p.o. at this time, advance diet when patient passes swallow screen, anticipate clinical improvement over the course next 24 to 48 hours. DVT prophylaxis with SCDs due to chronic thrombocytopenia related to above. Patient also mildly hypoglycemic and has been hyperglycemic during previous admissions we will continue with D5W at 75 cc/h, patient also has some pedal edema, continue with spironolactone/Lasix. Patient last had abdominal paracentesis approximately 1 month prior, no tense ascites noted on exam at this time. Chronic thrombocytopenia: We will hold off on heparin/Lovenox for DV prophylaxis, check with daily labs. Mild hypernatremia: Continue with D5W at 75 cc/h, check daily labs. Discharge Plan: Home Plan to discharge in: 48 Hours - Advance Directives Does patient have a Living Will: No Does patient have a Durable POA for Healthcare: No - Code Status/Comfort Care Code Status Assessed: No (Full code) Time Spent Managing Pts Care (In Minutes): 55
[2021-05-06 06:00] VITALS: BMI 29.0
[2021-05-06 06:03] VITALS: O2SAT 95
[2021-05-06 07:36] LABS: Anisocytosis SLIGHT; Blood Morphology Comment NOTED (NOT SEEN); Platelet Estimate DECR; Polychromasia SLIGHT; White Blood Cell Scan OK (OK)
--- NOTE | 2021-05-06 07:53 | RAD REPORT ---
EXAM DESCRIPTION: Evelyn Single View05/06/2021 7:20 am CLINICAL HISTORY: Cough COMPARISON: April 16, 2021 FINDINGS: Bilateral pulmonary opacities have mostly resolved. Heart is normal size. Small pleural ef fusions may be present IMPRESSION: Bilateral pulmonary opacities have mostly resolved. There probably is mild CHF
[2021-05-06] MEDS: Rifaximin 550 MG Tab PO SCH ×2 (09:00→21:00)
[2021-05-06] MEDS: LACTULOSE 20 GM/30 ML UCUP PO SCH ×4 (09:00→21:00)
[2021-05-06] MEDS: SPIRONOLACTONE 25 MG TABLET PO SCH (09:00)
[2021-05-06 09:56] LABS: Albumin 1.9 g/dL (3.4-5.0); Bilirubin Direct 1.5 mg/dL (0-0.2); Bilirubin Total 2.7 mg/dL (0.2-1.0); Protein, Total 5.5 g/dL (6.4-8.2)
[2021-05-06] MEDS ORDERED: LACTULOSE 20 GM/30 ML UCUP PR ONE (10:00)
--- NOTE | 2021-05-06 10:41 | EKG ---
Test Date: 2021-05-06 Test Time: 01:16:49 Production Team Leader: MEASUREMENT RESULTS: Intervals: Rate: 93 AK: 116 QRSD: 76 QT: 370 QTc: 460 Elizabeth: P: 79 AK: 116 QRS: 33 T: 63 INTERPRETIVE STATEMENTS: Normal sinus rhythm Normal ECG Compared to ECG 04/16/2021 05:38:16 Sinus tachycardia no longer present Electronically Signed On 05-06-21 10:41:03 CDT by Josué Park
[2021-05-06] MEDS: FUROSEMIDE 40 MG/4 ML VIAL IV SCH (11:17)
--- NOTE | 2021-05-06 11:38 | RAD REPORT ---
EXAM DESCRIPTION: CT - Head Brain Wo Cont - 05/06/2021 6:56 am CLINICAL HISTORY: 51 years, Female, dizzy;Confused COMPARISON: 04/16/2021. FINDINGS: Multiple transaxial tomograms of the brain were obtained from the base of the skull to the vertex without contrast. 2-D multiplanar reformats and the coronal and sagittal plane were performed and reviewed. This exam was performed according to our departmental dose-optimization protocol, which includes auto mated exposure control, adjustment of the mA and/or kV according to patient size and/or use of iterat khoi reconstruction technique. Brain parenchyma as well as the anderson and white matter differentiation demonstrate to be unremarkable. There is no midline shift and/or mass effect. There is no evidence for acute hemorrhage. Lateral v entricles and cisterns displace normal appearance. No intra or extra axial fluid collections were s een. The calvarium is intact with no evidence for fracture. The visualized portions of the paranasal sinuses and orbits demonstrate to be clear. IMPRESSION: No evidence for acute intracranial hemorrhage. Unremarkable CT scan of the head without contrast. Electronically signed by: Erasmo Cano MD 05/06/2021 3:13 AM CDT Due to temporary technical issues with the PACS/Fluency reporting system, reports are being signed by the in house radiologist without review as a courtesy to ensure prompt reporting. The interpreting r adiologist is fully responsible for the content of the report.
[2021-05-06] MEDS: D5W 1,000 ML IV SCH (17:55)
[2021-05-06] MEDS ORDERED: NA CHLORIDE 0.9% 1,000 ML PR ONE ×2 (22:50→23:42)
[2021-05-06] MEDS: LACTULOSE 20 GM/30 ML UCUP PR SCH (23:58)
[2021-05-07 06:33] LABS: Absolute Lymphocytes (CBC) 1.1 K/uL (0.7-4.9); Basophils % 0.6 % (0-1.3); Lymphocytes % 27.6 % (15.3-44.8); MPV 7.7 fL (7.6-11.3); RBC Red Blood Cell Count 2.84 M/uL (3.86-4.86)
[2021-05-07] MEDS: D5W 1,000 ML IV SCH (06:35)
[2021-05-07 06:41] LABS: ALT/SGPT 25 U/L (12-78); AST/SGOT 53 U/L (15-37); Albumin 1.4 g/dL (3.4-5.0); Alkaline Phosphatase 81 U/L (45-117); BUN Blood Urea Nitrogen 15 mg/dL (7-18); Bicarbonate 30 mmol/L (21-32); Glucose Level 87 mg/dL (74-106); Magnesium 1.5 mg/dL (1.8-2.4); Potassium 3.1 mmol/L (3.5-5.1); Protein, Total 4.3 g/dL (6.4-8.2); Sodium Level 144 mmol/L (136-145)
[2021-05-07] MEDS: LACTULOSE 20 GM/30 ML UCUP PR SCH (09:00)
[2021-05-07] MEDS ORDERED: LACTULOSE 20 GM/30 ML UCUP PR SCH (09:00)
[2021-05-07] MEDS: SPIRONOLACTONE 25 MG TABLET PO SCH (10:14)
[2021-05-07] MEDS: FUROSEMIDE 40 MG/4 ML VIAL IV SCH (10:14)
[2021-05-07] MEDS: Rifaximin 550 MG Tab PO SCH (10:14)
[2021-05-07] MEDS: LACTULOSE 20 GM/30 ML UCUP PO SCH ×3 (10:14→17:10)
[2021-05-07] MEDS ORDERED: DIPHENHYDRAMINE 25 MG TAB/CAP PO PRN (12:37)
[2021-05-07 17:07] VITALS: BP 141/73; TEMP 98.8
--- NOTE | 2021-05-07 17:24 | P.PN ---
Subjective Date of Service: 05/07/21 Primary Care Provider: None Chief Complaint: Hepatic encephalopathy Subjective: Improving (more awake, feeling better / more alert, does report moderate fatigue, minimal appetite, no nausea/vomiting / abd pain) Review of Systems 10-point ROS is otherwise unremarkable Physical Examination - Vital Signs Temperature: 98.8 F Blood Pressure: 141/73 Pulse: 93 Respirations: 18 Pulse Ox (%): 97 Assessment & Plan Physician Review Additional Text: Physical Exam General: awake, AAOx3 HEENT: Atraumatic, Normocephalic Respiratory: Clear to auscultation bilaterally, Diminished at bases bilaterally Cardiovascular: Normal S1 S2, 1-2+ Edema bilaterally Gastrointestinal: soft, nontender, +ascites Musculoskeletal: No joint swelling Integumentary: mild erythema / superficial skin lacerations on anterior tibial area bilaterally Problem List Hepatic encephalopathy secondary to alcoholic cirrhosis of the liver Chronic thrombocytopenia Mild hypernatremia continue PO lactulose, rifampin. responded well to lactulose enemas ADAT, dc IVF continue SCDs improving continue spironolactone/lasix slowly improving anticipate dc home tomorrow if continues to improve Time Spent Managing Pts Care (In Minutes): 35
--- NOTE | 2021-05-07 19:21 | P.DS ---
Admission Date: 05/06/21 Discharge Date: 05/07/21 Primary Care Provider: None Disposition: ROUTINE DISCHARGE Discharge Condition: GOOD Reason for Admission: Hepatic encephalopathy Consultations: None Procedures: Chest x-ray CLINICAL HISTORY: Cough COMPARISON: April 16, 2021 FINDINGS: Bilateral pulmonary opacities have mostly resolved. Heart is normal size. Small pleural effusions may be present IMPRESSION: Bilateral pulmonary opacities have mostly resolved. There probably is mild CHF CT head FINDINGS: Multiple transaxial tomograms of the brain were obtained from the base of the skull to the vertex without contrast. 2-D multiplanar reformats and the coronal and sagittal plane were performed and reviewed. This exam was performed according to our departmental dose-optimization protocol, which includes automated exposure control, adjustment of the mA and/or kV according to patient size and/or use of iterative reconstruction technique. Brain parenchyma as well as the anderson and white matter differentiation demonstrate to be unremarkable. There is no midline shift and/or mass effect. There is no evidence for acute hemorrhage. Lateral ventricles and cisterns displace normal appearance. No intra or extra axial fluid collections were seen. The calvarium is intact with no evidence for fracture. The visualized portions of the paranasal sinuses and orbits demonstrate to be clear. IMPRESSION: No evidence for acute intracranial hemorrhage. Unremarkable CT scan of the head without contrast. Brief History of Present Illness: 51-year-old female with history of alcoholic cirrhosis of the liver presents emergency department for altered mental status. Significant other reports that patient was seen at another facility and admitted overnight approximately 1 week prior for similar and treated with lactulose, I discharge patient significant other reports that she is still slightly altered but had improved. Significant other reports that patient became significantly confused over the course of the last 24 hours/aggressive with him at home and he brought her into the emergency department for evaluation. Patient with multiple admissions for similar in the past here. Patient was evaluated in the emergency department, labs were significant for white blood cell count 2.9 platelets 63 sodium 146 potassium 3.4 glucose 90 procalcitonin less than 0.05. Unfortunate this time lab machine for checking ammonia level is down but clinically patient has hepatic encephalopathy. Patient was given 1 mg of Ativan for agitation/aggression in the emergency department as well as 30 mL of lactulose p.o. ED progress is to admit for further evaluation and management Hospital Course: Hospital course Patient was admitted for hepatic encephalopathy secondary to alcoholic cirrhosis of the liver with chronic thrombocytopenia and mild hyponatremia. Patient was treated with combination of lactulose enemas and p.o. lactulose, rifampin. Patient has responded very well to treatment, at this time patient currently awake, alert, oriented x4. Patient tolerating her diet well requesting to be discharged home. Patient clinically stable for discharge at this time. Sodium down to 144 platelets 71 most recent ammonia from this morning was 79. Patient reports that she does have lactulose, spironolactone and other home medications available at home for her use. Patient educated on importance of remaining compliant with her lactulose therapy. Patient to be discharged home with significant other. Vital Signs/Physical Exam: Temp Pulse Resp BP Pulse Ox 98.8 F 93 H 18 141/73 H 97 05/07/21 17:24 05/07/21 17:24 05/07/21 17:24 05/07/21 17:24 05/07/21 17:24 General: Alert, In no apparent distress, Oriented x3 HEENT: Atraumatic, PERRLA, EOMI Neck: Supple, JVD not distended Respiratory: Clear to auscultation bilaterally, Normal air movement Cardiovascular: Regular rate/rhythm, Normal S1 S2 Gastrointestinal: Normal bowel sounds, Distended, Ascites Musculoskeletal: No tenderness Integumentary: No rashes Neurological: Normal speech, Normal tone, Normal affect Lymphatics: No axilla or inguinal lymphadenopathy Laboratory Data at Discharge: WBC 4.00 K/uL (4.3-10.9) L D 05/07/21 06:02 Hgb 8.2 g/dL (12.0-15.0) L 05/07/21 06:02 Hct 25.0 % (36.0-45.0) L 05/07/21 06:02 Plt Count 71 K/uL (152-406) L 05/07/21 06:02 PT 15.5 SECONDS (9.5-12.5) H 05/06/21 01:30 INR 1.34 05/06/21 01:30 APTT 29.4 SECONDS (24.3-36.9) 05/06/21 01:30 Sodium 144 mmol/L (136-145) 05/07/21 06:02 Potassium 3.1 mmol/L (3.5-5.1) L 05/07/21 06:02 BUN 15 mg/dL (7-18) 05/07/21 06:02 Creatinine 0.61 mg/dL (0.55-1.3) 05/07/21 06:02 Glucose 87 mg/dL (74-106) 05/07/21 06:02 Magnesium 1.5 mg/dL (1.8-2.4) L 05/07/21 06:02 Total Bilirubin 3.0 mg/dL (0.2-1.0) H 05/07/21 06:02 AST 53 U/L (15-37) H 05/07/21 06:02 ALT 25 U/L (12-78) 05/07/21 06:02 Alkaline Phosphatase 81 U/L (45-117) 05/07/21 06:02 Home Medications: Furosemide [Lasix*] 40 mg PO BID #60 tab 02/20/21 Lactulose [Cephulac*] 45 ml PO TID #4000 ml 03/28/21 Pantoprazole [Protonix Tab*] 40 mg PO Q12H #60 tab 03/28/21 Spironolactone [Aldactone*] 50 mg PO DAILY #60 tab 04/17/21 Diet: AHA Activity: Ad carmen Followup: NONE,NONE [Primary Care Provider] - 1-2 Weeks Colin Prabhakar MD [ACTIVE - CAN ADMIT] - 1-2 Weeks Time spent managing pt's care (in minutes): 30
== END 2021-05-07 20:51 | disposition home or self-care (01) | DRG 433 ==
LOC: ER 00:19 → 2ND 05:34
PROVIDERS: ADMIT Registered Nurse Emergency; ATTEND Hospitalist
DX: K70.40 Alcoholic hepatic failure without coma (principal); E87.0 Hyperosmolality and hypernatremia; K70.30 Alcoholic cirrhosis of liver without ascites; D69.6 Thrombocytopenia, unspecified; Z88.0 Allergy status to penicillin; Z20.822 Contact with and (suspected) exposure to COVID-19
CPT/HCPCS: 36415; 70450; 71045; 80048; 80053; 80076; 80320; 82140; 82947; 83735; 84145; 85025; 85610; 85730; 93005; 96361; 96374; 99285; J1940; J7030; U0003

== ENCOUNTER 2021-05-10 01:04 | Inpatient (IN) | payer SELFPAY ==
--- OUTSIDE RECORDS SUMMARY | 2021-05-10 01:13 | XMS REPORT | Continuity of Care Document ---
:1970 Author Organization [facility] t Address [address] [place] [address] Care Team Providers Name Role Phone Shane MEDICAL ASSISTANT PRN Attending Clinician Carito Nam MD Attending Clinician Kacy JEFF Attending Clinician Ramesh PATEL Attending Clinician Feliciano MCINTOSH Attending Clinician Unavailable ARIANA ARIZMENDI Attending Clinician Unavailable Ariana Arizmendi MD Attending Clinician Daniel Rivera MD Attending Clinician Hui Singer MD Attending Clinician Minnie Strong MD Attending Clinician Bhavesh Becerril MD Attending Clinician MINNIE STRONG Attending Clinician Unavailable Tricia NGUYEN, G Attending Clinician Doctor Unassigned, Name Attending Clinician Unavailable , R Attending Clinician Unavailable Carl MAGANA, S Attending Clinician Gin Anthony MA Attending Clinician Unavailable Cb JEFF, Octavio Attending Clinician LEO Attending Clinician Unavailable Leo JEFF Attending Clinician Sarai JEFF, Ni Attending Clinician Merchant JEFF Attending Clinician Jennifer JEFF, Shahbaz Attending Clinician Feng JEFF, Sonia Attending Clinician Vasyl MCINTOSH, E Attending Clinician Gera JEFF, Norman Attending [...] 6- [facility] - status status [facility]: [facility] [place] Hepatic Hepatic Disease Active [facility] encephalop encephalop - Mita kes - athy athy 00:00: [facility] [place] Black Black Disease Active [facility] stools stools 10-24 [facility] - 00:00: [facility] [place] Cirrhosis Cirrhosis Disease Active [facility] 10[facility]24 [facility] - 00:[facility]: [facility] [place] Volume Volume Disease Active [facility] overload overload 10-24 [facility] - 00:00: [facility] [place] Allergies, Adverse Reactions, Alerts Allergy Allergy Status Severity Reaction(s) Onset Inactive Treating Comm ents Source Name Type Date Date Clinician dylan DA Active [place] [facility] [place] 00:00: [facility] 00 are Jairo Garcia Ondanset Drug Active Rash JACKSON Hernandez Hcl Allergy 10-22 [facility] - (Pf) 00:00: Medical 00 [place] Social History Social Habit Start Date Stop Date Quantity Comments Source Sex Assigned At [facility] Tobacco use and 2021-04-06 2021-04-06 Never used [facility] ke - exposure 00:00:00 00:00:00 [facility] Alcohol intake 2021-04-06 2021-04-06 [facility]00:00 (finding) [facility] Alcohol Comment 2021-03-12 2021-03-12 stopped [facility] [address] [facility] - 00:[facility]00 00:00:00 [facility] Smoking Status Start Date Stop Date Source Never smoker [facility] edical [place] Medications Ordered Filled Start Stop Current Ordering Indication Dosage Frequency Signature Comments Components Source Medication Medication Date Date Medication? Clinician (SIG) Name Name spironolact 2021- No 100mg QD Take [address] [facility] 10-25 tablet [facility] - (ALDACTONE) 00:00: 23:59 (100 mg Me dical 100 MG 00 :00 total) by Center tablet mouth daily. lactulose 2020- No 20g Q.[id number] Take [address] [facility] (CHRONULAC) 10-24 [id number] by mouth 3 [facility] - 10 gram/15 [...] (two) times daily. lactulose 2021- No 20g Q.08554233 Take [address] [facility] (CHRONULAC) 10-24 [id number] mLs (20 g [facility] - 10 gram/15 00:00: 23:59 3D total) by edical mL (15 mL) 00 :00 mouth 3 Center solution (three) times daily. potassium No 20meq QD Take [address] [address] chloride SA 10-24 tablet (20 L [facility] - (K-DUR,KLOR 00:00: 23:59 mEq total) Medical [...] days. pantoprazol No 40mg Q.5D Take [address] e 10-24 0207 tablet (40 [facility] - (PROTONIX) 00:00: 23:59 mg total) M edical 40 MG 00 :00 by mouth 2 Center tablet (two) times daily for 30 days. Vital Signs Vital Name Observation Time Observation Value Comments Source Systolic blood 2021-04-10 14:55:00 150 mm[Hg] [facility] Diastolic blood 2021-04-10 14:55:00 88 mm[Hg] [facility] S t [facility] Heart rate 2021-04-10 14:55:00 104 /min [facility] Body temperature 2021-04-10 14:55:00 36.06 Tamar [facility] Respiratory rate 2021-04-10 14:55:00 17 /min [facility] Oxygen saturation in 2021-04-10 14:55:00 98 /min [facility] Arterial blood by Medical Ce nter Pulse oximetry Body weight 2021-04-10 06:00:00 79.153 kg [facility] BMI 2021-04-10 06:00:00 29.95 kg/m2 [facility] Body height 2021-04-06 19:03:00 162.6 cm [facility] Procedures Procedure Date / Time Performing Clinician Source Performed POTASSIUM 2021-04-10 06:13:00 Vivian Tam [facility] COMPREHENSIVE METABOLIC 2021-04-10 06:13:00 Radha Singer [facility] PROTHROMBIN TIME/INR 2021-04-10 06:13:00 Radha Singer [facility] CBC W/PLT COUNT & AUTO 2021-04-10 06:12:00 Enmanuel Radhakait Ames [facility] MAGNESIUM 2021-04-09 05:49:00 Allencherrobin [facility] CBC W/PLT COUNT & AUTO 2021-04-09 05:49:00 Selene [facility] HEPATIC FUNCTION PANEL 2021-04-09 05:49:00 Yuli Rivera [facility] PROTHROMBIN TIME/INR 2021-04-09 05:49:00 Yuli Rivera [facility] CALCIUM, IONIZED 2021-04-09 05:49:00 Peterson Morales [facility] COMPREHENSIVE METABOLIC 2021-04-09 05:49:00 [facility] PHOSPHORUS 2021-04-09 05:49:00 [facility] PARACENTESIS 2021-04-08 17:10:00 Yuli Rivera [facility] BODY FLUID CULTURE + GRAM 2021-04-08 17:04:00 Yuli Rivera [facility] BODY FLUID CELL COUNT WITH 2021-04-08 17:03:00 Yuli Rivera [facility] BLOOD CULTURE 2021-04-08 14:02:[address] [facility] MISCELLANEOUS LAB ORDER 2021-04-08 04:33:00 Johnny Oliver [facility] BASIC METABOLIC PANEL (7) 2021-04-08 04:33:[address] [facility] MAGNESIUM 2021-04-08 04:33:00 Selene [facility] CBC W/PLT COUNT & AUTO 2021-04-08 04:33:00 Selene [facility] HEPATIC FUNCTION PANEL 2021-04-08 04:33:00 Victorino [facility] PROTHROMBIN TIME/INR 2021-04-08 04:33:00 Yuli Rivera [facility] ALPHA FETOPROTEIN (AFP), 2021-04-08 04:33:00 Johnny Oliver [facility] - TUMOR MARKER [facility] HEPATITIS B SURFACE 2021-04-08 04:33:00 Johnny Oliver [facility] - ANTIBODY [facility] RAPID DRUG SCREEN, URINE 2021-04-07 11:34:00 Dilcia Smith pe [facility] URINALYSIS W/ REFLEX URINE 2021-04-07 11:34:00 Yuli Rivera [facility] CT BRAIN WITHOUT IV 2021-04-07 08:07:00 Yuli Rivera [facility] BLOOD CULTURE 2021-04-07 04:32:00 Yuli Rivera [facility] BASIC METABOLIC PANEL (7) 2021-04-07 04:28:[address] [facility] MAGNESIUM 2021-04-07 04:28:00 Selene [facility] CBC W/PLT COUNT & AUTO 2021-04-07 04:28:00 SeleneKrish [facility] HEPATIC FUNCTION PANEL 2021-04-07 04:28:00 Yuli Rivera [facility] PROTHROMBIN TIME/INR 2021-04-07 04:28:00 DallasYuli [facility] SARS-COV2/INFLUENZA/RSV 2021-04-07 02:11:00 Haroldo Prakash C [facility] RT-PCR [facility] BLOOD CULTURE 2021-04-07 02:08:00 DallasYuli [facility] BLOOD CULTURE 2021-04-07 02:08:00 DallasYuli [facility] IDENTIFICATION [facility] CT BRAIN WITHOUT IV 2021-04-06 23:35:[address] [facility] AMMONIA 2021-04-06 21:11:00 Juan Smith [facility] MAGNESIUM 2021-04-06 21:10:00 Juan Smith [facility] PHOSPHORUS 2021-04-06 21:10:00 Juan Smith [facility] COMPREHENSIVE METABOLIC 2021-04-06 21:10:00 LeroyShana Terrazas [facility] HIGH SENSITIVITY TROPONIN 2021-04-06 21:10:00 Angela Smith ipishaan [facility] ETHANOL 2021-04-06 21:09:00 Juan Smith [facility] CBC W/PLT COUNT & AUTO 2021-04-06 20:05:00 Juan Smith [facility] PT/APTT 2021-04-06 20:05:00 Juan Smith [facility] CBC W/PLT COUNT & AUTO 2021-03-12 14:33:00 Strong[facility] MET[facility]OLIC 2021-03-12 14:33:00 Ligia [facility] PT/APTT 2021-03-12 14:33:00 [facility] 2021-03-12 14:33:[address] [facility] ECG 12-LEAD 2021-03-12 14:25:[address] [facility] REPORT OF PROCEDURE - 2021-03-12 00:00:00 Provider [facility] US ABDOMEN LIMITED 2020-10-24 14:23:00 Merchant [facility] METABOLIC 2020-10-24 02:19:00 Sanjay [facility] CBC W/PLT COUNT & AUTO 2020-10-24 02:19:00 Merchant [facility] PROTHROMBIN TIME/INR 2020-10-24 02:19:00 Merchant [facility] REPORT OF PROCEDURE - 2020-10-23 13:12:14 Ruth Toney [facility] UPPER ENDOSCOPY 2020-10-23 09:39:00 Ruth Toney [facility] MAGNESIUM 2020-10-23 05:15:00 Merchant [facility] METABOLIC 2020-10-23 05:15:00 Sanjay [facility] HEMOGLOBIN AND HEMATOCRIT 2020-10-23 05:14:00 Merchant [facility] CBC W/PLT COUNT & AUTO 2020-10-23 05:14:00 Merchant [facility] PROTHROMBIN TIME/INR 2020-10-23 05:14:00 Sanjay [facility] HEPATITIS C PCR, 2020-10-23 05:14:[address] [facility] HEPATITIS C GENOTYPE 2020-10-23 05:14:00 Sanjay [facility] HEPATITIS PANEL, ACUTE 2020-10-23 05:14:00 Sanjay [facility] [id number], 2020-10-23 05:14:00 Sanjay [facility] SERUM [facility] ALPHA FETOPROTEIN (AFP), 2020-10-23 05:14:00 Sanjay [facility] TUMOR MARKER [facility] CERULOPLASMIN 2020-10-23 05:14:00 Sanjay, [facility] FERRITIN 2020-10-23 05:14:00 Sanjay [facility] IRON, TIBC, % SAT. 2020-10-23 05:14:00 Sanjay [facility] (WITHOUT FERRITIN) [facility] VITAMIN B12 2020-10-23 05:14:00 Sanjay [facility] FOLATE, SERUM 2020-10-23 05:14:00 Sanjay [facility] RETICULOCYTE COUNT 2020-10-23 05:14:00 Sanjay [facility] ACTIN (SMOOTH MUSCLE) 2020-10-23 05:14:00 Sanjay [facility] - ANTIBODY, IGG [facility] ANTI-NUCLEAR ANTIBODY 2020-10-23 05:14:00 Sanjay [facility] (LUCAS) [facility] ANTI-MITOCHONDRIAL AB, 2020-10-23 05:14:00 [facility] TITER [facility] HEPATITIS B CORE ANTIBODY, 2020-10-23 05:14:00 Eusebio Grace C HI [facility] TOTAL [facility] HEPATITIS A ANTIBODY, IGG 2020-10-23 05:14:00 Sanjay, Eusebio I [facility] MITOCHONDRIAL AB SCREEN 2020-10-23 05:14:00 Sanjay [facility] MITOCHONDRIAL AB TITER 2020-10-23 05:14:00 Grace, Eusebio [facility] US ABDOMINAL WITH DOPPLER 2020-10-22 21:15:00 Silvio Riggs CH, I [facility] URINALYSIS W/ REFLEX URINE 2020-10-22 17:23:00 Eusebio Grace [facility] CULTURE [facility] SARS-COV2/RT-PCR ([facility] & 2020-10-22 15:22:00 [facility] - REF LABS) [facility] BLOOD CULTURE 2020-10-22 15:07:00 [facility] W/[facility]T COUNT & AUTO 2020-10-22 14:07:00 Sarai [facility] BASIC METABOLIC PANEL (7) 2020-10-22 14:07:00 Mandie Moon [facility] HEPATIC FUNCTION PANEL 2020-10-22 [facility] 2020-10-22 14:07:[address] [facility] ECG 12-LEAD 2020-10-22 14:01:12 Unknown, Hl7 Doctor [facility] XR CHEST 1 VIEW 2020-10-22 13:46:00 Silvio Riggs [facility] PORTABLE/BEDSIDE [facility] REPORT OF PROCEDURE - 2020-10-22 00:00:00 Provider, [facility] - ENDOSCOPY SCAN Scanning [facility] Plan of Care Planned Activity Planned Date Details Comments Source Future Scheduled 2021-06-[address] [facility] - Test 00:00:00 (#1) [code = [facility] INFLUENZA VACCINE (#1)] Future Scheduled 2020-10-[address] [facility] - Test 00:00:00 (12+) [code = [facility] DEPRESSION SCREENING (12+)] Future Scheduled 2018 SHINGLES VACCINES ([address] [facility] - Test 00:00:00 of 2) [code = [facility] SHINGLES VACCINES (1 of 2)] Future Scheduled [address] [facility] - Test 00:00:00 (procedure) [code = [facility] 78454032] Future Scheduled [address] [facility] - [facility] 00:00[facility]00 [facility] cervix (procedure) [code = 398717425] Future Scheduled 1987 DTAP/TDAP/TD VACCINES [facility] - Test 00:00:00 (1 - Tdap) [code = Medical C enter DTAP/TDAP/TD VACCINES (1 - Tdap)] Future Scheduled 1980 COVID-19 VACCINE (1) [facility] - Test 00:00:00 [code = COVID-[address] VACCINE (1)] Future Scheduled [address] [facility] Test 00:00[facility]00 [facility] breast (procedure) [code = 997546071] Future Scheduled [address] [facility] - Test 00:00:00 [facility] colon (procedure) [code = 521928791] Encounters Start End Encounter Admission Attending Care Care Encounter Source Date/Time Date/Time Type Type Clinicians Facility Department ID 2021-05-01 2021-05-01 Transition Dar Lynn [id number] 00:00:00 00:00:00 of Care Valerie Pham [id number] Luisa 4.2.7.2.686 [id number] 2021-04-27 2021-04-30 [facility] 1.2.840. 114 [id number] 22:04:00 16:23:00 Encounter Brandon Woodruff [id number] [place] 4.2.7.2.686 [place] [id number] 2021-03-02 2021-03-02 Emergency Tricia [facility] [id number] 13:50:00 18:58:00 Lucila Means [id number] [place] 4.2.7.2.686 [place] [id number] 2021-03-02 2021-03-02 Orders Doctor MACKEY 1.2.840.114 [id number] 00:00:00 00:00:00 Only Unassigned, STAR [id number] [facility] 4.2.7.2.686 [id number] 2021-01-18 2021-01-21 [facility] Marianne Henry [facility] 1.2.840.11 [id number] 20:56:00 13:40:00 Encounter Balta Nam 350.1.13.1 0 [place] 4.2.7.2.686 [place] [id number] 2020-10-13 2020-10-13 Patient Diane Fallon [id number] 00:00:00 00:00:00 Outreach E Pham [id number] [place] 4.2.7.2.686 [id number] 2020-10-01 2020-10-03 [facility] Gera [place] [facility] 1.2.840 .114 [id number] 14:36:00 10:48:00 Encounter Kevin [facility] 350.1.13 .10 Cristofer Baker [place] 4.2.7.2.686 Strong [id number] Hospital 109 (CLC) 2020-09-29 2020-09-29 Patient Diane Fallon 1.2.840.114 [id number] 00:00:00 00:00:00 Outreach E Pham [id number] [place] 4.2.7.2.686 [id number] 2020-09-25 2020-09-25 Transition Shane Dar 1.2.840.114 [id number] 00:00:00 00:00:00 of Care Valerie Yiy [id number] [place] 4.2.7.2.686 [id number] 2020-09-22 2020-09-24 [facility] Balta Nma [facility] 1.2.840. 114 [id number] 05:04:00 10:44:00 Encounter Ezkristen, [facility] 350.1.13.10 [place] 4.2.7.2.686 Strong [id number] Hospital 111 (CLC) 2020-06-30 2020-06-30 Emergency [facility] [id number] 14:48:00 18:31:00 Hugo Means 350.1.13.10 [place] 4.2.7.2.686 [place] [id number] 2019-06-11 2019-06-11 Orders Doctor NARENDRA 1.2.840.114 [id number] 00:00:00 00:00:00 Only Unassigned, STAR 350.1.13.10 [place] [id number] [id number] 2019-05-11 2019-05-11 [facility] [id number] 10:42:22 12:29:00 Marianne Means 350.1.13.10 [place] 4.2.7.2.686 [place] [id number] [id number] Results Test Description Test Time Test Comments Results Result Comments Source MISCELLANEOUS LAB ORDER 2021-04-14 09:48:00 Test Item Value Reference Range Interpretation Comme nts SCAN RESULT (test code = 4140316) See scanned reportphosphatydil [id number] 09:48:00Scan ResultQUEST NON- INTERFACED LABSee scanned reportCHI [facility] Center[facility] Culture - Routine (Left Venipuncture)2021-04-13 16:00:00 Test Item Value Reference Range Interpretation Comments Result (test code = No growth in 5 days 6463-4) [facility] [id number] 16:00:00 Test Item Value Reference Range Interpretation Comments CULTURE (BEAKER) (test No growth in 5 days code = 1095) BLOOD [id number] 16:00:00 Test Item Value Reference Range Interpretation Comments CULTURE (BEAKER) (test No growth in 5 days code = 1095) BLOOD [id number] 07:00:00 Test Item Value Reference Range Interpretation Comments CULTURE (BEAKER) (test No growth in 5 days code = 1095) Body fluid culture + gram [id number] 13:14:00 Test Item Value Reference Range Interpretation Comments Result (test code = 6463-4) No growth Gram Stain Result (test No organisms seen code = 1123) [facility] Center[facility] FLUID C[facility] + GRAM [id number] 13:14:00 Test Item Value Reference Range Interpretation Comments CULTURE (BEAKER) (test code No growth = 1095) GRAM STAIN RESULT (BEAKER) 1+ WBCs (test code = 1123) GRAM STAIN RESULT (BEAKER) No organisms seen (test code = 37466) BLOOD [id number] 06:42:00 Test Item Value Reference Range Interpretation Comments CULTURE A From Aerobic An d (BEAKER) (test Anaerobic Bot tles code = 1095) Coagulase negat khoi Staphylococcus GRAM STAIN From aerobic and RESULT (BEAKER) anaerobic (test code = bottles: gram 1123) positive cocci in clusters U/S, [id number] 13:23:00Labs to be ordered:->Body Fluid Culture (w/Gram Stain, C\\T\\S)Labs to be ordered:->Cell CountReason for exam:- >AL[facility] : 1970 Sex: FFINAL REPORT Ultrasound guided paracentesis Clinical History: Ascite s. Sedation: None. Commercial Real Estate Underwriter: Sophia Noble PA-C Supervising Physician: Ivan Valdes MD Internal Affairs Commander: None. Estimated Blood Loss: < 1 mL. [...] anesthesia was achieved with lidocaine, a 5 Liberian one-step catheter was advanced into the peritoneal cavity under ultrasound guidance. After completion of drainage, the catheter was removed. There was no evidence of complication. Impression:Successful ultrasound guided paracentesis.Signed: Ivan Valdes Verified Date/Time: 04/10/2021 13:23:15 Reading Location: [address] Ultrasound Reading Room US [id number] 13:23:00Interface, External Ris In - 04/10/2021 1:25 PM CDTFINAL REPORT Ultrasound guided paracentesis Clinical History: Ascites. Sedation: None. Commercial [employer] Underwriter: Sophia Noble PA-C Supervising Physician: Ivan Valdes MD Internal Affairs Commander: None. Estimated Blood Loss: <1 mL. Specimen: [...] local anesthesia was achieved with lidocaine,a 5 Liberian one-step catheter was advanced into the peritoneal cavity under ultrasound guidance. After completion of drainage, the catheter was removed. There was no evidence of complication. Impression:Successful ultrasound guided paracentesis. Signed: Ivan Valdes Verified Date/Time: 04/10/2021 13:23:15 Reading Location: [address] Ultrasound Reading [facility] 2021-04-10 07:16:00 Test Item Value Reference Range Interpretation Comments Protein, Total (test 4.4 See_Comment L [Autom ated code = 2885-2) message] The system which generated this result transmitted reference range : 6.0 - 8.3 gm/dL . The reference range was not used to interpr et this result as normal/abnormal . Albumin (test code = 1.9 g/dL 3.5-5 L 52371-4) Alkaline Phosphatase 87 U/L 40-150 (test code = 6768-6) Total Bilirubin (test 3.2 mg/dL 0.2-1.2 H code = 1975-2) Sodium (test code = 137 meq/L 271-488 8372-2) Potassium (test code 3.7 meq/L 3.5-5.1 = 2823-3) Chloride (test code = 105 meq/L 98-107 2075-0) CO2 (test code = 28 meq/L 22-29 2028-9) BUN (test code = 6 mg/dL 7-21 L 3094-0) Creatinine (test code 0.65 mg/dL 0.57-1.25 = 2160-0) Glucose (test code = 107 mg/dL 70-105 H 2345-7) Calcium (test code = 7.7 mg/dL 8.4-10.2 L 64168-6) AST (test code = 68 U/L 5-34 H 1920-8) ALT (test code = 27 U/L 6-55 1742-6) EGFR (test code = 95 mL/min/1.73 [place] [address]-0) m NOT ACCURATE CREATININE CLEARANCE IN PREDICTING GLOMERULAR FILTRATION RATE . ESTIMATED GFR I S NOT APPLICABLE FOR DIALYSIS PATIENTS. MADDIE (test code = MADDIE) Auto Top Mechanic ID - DBSpecimen slightly icteric Lab Interpretation Abnormal (test code = 62994-3) [facility] Center[facility]assium2021-06-[facility] 07:16:00 Test Item Value Reference Range Interpretation Comments Potassium (test code = 2823-3) 3.7 meq/L 3.5-5.1 Lab Interpretation (test code = Normal 83229-8) [facility] 07:16:00 Test Item Value Reference Range Interpretation Comments POTASSIUM (BEAKER) (test code = 3.7 meq/L 3.5-5.1 379) COMPREHENSIVE METABOLIC [id number] 07:16:00 Test Item Value Reference Range Interpretation [...] S NOT APPLICABLE FOR DIALYSIS PATIEN TS. Auto Top Mechanic ID - DBSpecimen slightly ictericProthrombin time/[id number] 06:58:00 Test Item Value Reference Interpretation Comments [...] valves. Lab Interpretation Abnormal (test code = 92849-7) [facility] CenterPROTHROMBIN TIME/[id number] 06:58:00 Test Item Value Reference Range Interpretation Comments PROTIME (BEAKER) 21.0 seconds 11.9-14.2 H (test code = 759) INR (BEAKER) (test 1.84 See_Comment [Automat ed message] code = 370) The system mobicanvas generated this result transmitted ref erence range: [...] See_Comment L [A utomated message] The system mobicanvas generated this result transmitted ref erence range: 3.5 - 10 .5 K/L. The refe rence range was not u sed to interpret this result as normal/abnor mal. RBC (test code = 789-8) 2.80 See_Comment L [Au tomated message] The system mobicanvas generated this result transmitted ref erence range: 3.93 - 5 .22 M/L. The refe rence range was not u sed to interpret this result as normal/abnor mal. MCHC (test code = 786-4) 30.8 See_Comment L [A utomated message] The system mobicanvas generated this result transmitted ref erence range: [...] L [Aut omated message] 777-3) The system mobicanvas generated this result transmitted ref erence range: 150 - 45 0 K/CU MM. The referen ce range was not u sed to interpret this result as normal/abnor mal. MPV (test code = 11.1 fL 9.4-12.3 94330-7) nRBC (test code = 413) 0 See_Comment [Aut omated message] The system mobicanvas generated this result transmitted ref erence range: [...] L [Aut omated message] 670) The system mobicanvas generated this result transmitted ref erence range: 1.56 - 6 .13 K/L. The refe rence range was not u sed to interpret this result as normal/abnor mal. # Lymphs (test code = 1.30 See_Comment [Auto mated message] 414) The system mobicanvas generated this result transmitted ref erence range: 1.18 - 3 .74 K/L. The refe rence range was not u sed to interpret this result as normal/abnor mal. # Monos (test code = 0.46 See_Comment H [Autom ated message] 415) The system mobicanvas generated this result transmitted ref erence range: 0.24 - 0 .36 K/L. The refe rence range was not u sed to interpret this result as normal/abnor mal. # Eos (test code = 416) 0.16 See_Comment [Au tomated message] The system mobicanvas generated this result transmitted ref erence range: 0.04 - 0 .36 K/L. The refe rence range was not u sed to interpret this result as normal/abnor mal. # Baso (test code = 417) 0.03 See_Comment [A utomated message] The system mobicanvas generated this result transmitted ref erence range: 0.01 - 0 .08 K/L. The refe rence range was not u sed to interpret this result as normal/abnor mal. Immature 0 % 0-1 Granulocytes-Relative (test code = 2801) Lab Interpretation (test Abnormal code = 21383-3) [facility] W/PLT COUNT & AUTO [id number] 06:48:00 Test Item Value Reference Range Interpretation [...] (BEAKER) (test code = 2801) COMPREHENSIVE METABOLIC [id number] 10:33:00 Test Item Value Reference Range Interpretation [...] S NOT APPLICABLE FOR DIALYSIS PATIEN TS. Auto Top Mechanic ID - [place] Paredesecimepamela slightly ictericHepatic function [id number] 10:29:00 Test Item Value Reference Range Interpretation Comments Protein, Total (test 4.3 See_Comment L [Autom ated code = 2885-2) message] The system which generated this result transmitted reference range : 6.0 - 8.3 gm/dL . The reference range was not used to interpr et this result as normal/abnormal . Albumin (test code = 1.8 g/dL 3.5-5 L 61947-2) Total Bilirubin (test 2.8 mg/dL 0.2-1.2 H code = 1975-2) Bilirubin, Direct 1.6 mg/dL 0.1-0.5 H (test code = 1968-7) Alkaline Phosphatase 78 U/L 40-150 (test code = 6768-6) AST (test code = 48 U/L 5-34 H 1920-8) ALT (test code = 20 U/L 6-55 1742-6) MADDIE (test code = MADDIE) Auto Top Mechanic ID - [place] Paredesecnavdeep slightly icteric Lab Interpretation Abnormal (test code = 77353-1) [facility] [id number] 10:29:00 Test Item Value Reference Range Interpretation [...] (test code = 20 U/L 6-55 347) Auto Top Mechanic ID - [place] MSpecimen slightly ofcloiyRhzjfayiq2543-30-09 10:24:00 Test Item Value Reference Range Interpretation Comments Magnesium (test code = 1.5 mg/dL 1.6-2.6 L 33653-2) MADDIE (test code = MADDIE) Auto Top Mechanic ID - [place] M Lab Interpretation (test Abnormal code = 69736-7) [facility]osph[facility] 10:24:00 Test Item Value Reference Range Interpretation Comments Phosphorus (test code = 1.9 mg/dL 2.3-4.7 L 2777-1) MADDIE (test code = MADDIE) Auto Top Mechanic ID - [place] M Lab Interpretation (test Abnormal code = 46074-5) [facility] Center[facility]NESIUM2021-06-24 10:24:00 Test Item Value Reference Range Interpretation Comments MAGNESIUM (BEAKER) (test code = 1.5 mg/dL 1.6-2.6 L 627) Auto Top Mechanic ID - [place] [id number] 10:24:00 Test Item Value Reference Range Interpretation Comments PHOSPHORUS (BEAKER) (test code = 1.9 mg/dL 2.3-4.7 L 604) Auto Top Mechanic ID - [place] MPROTHROMBIN TIME/[id number] 07:13:00 Test Item Value Reference Range Interpretation Comments PROTIME (BEAKER) 20.0 seconds 11.9-14.2 H (test code = 759) INR (BEAKER) (test 1.73 See_Comment [Automat ed message] code = 370) The system mobicanvas generated this result transmitted ref erence range: [...] PERCENT (BEAKER) (test code = 2801) Calcium, Gjhehud1817-20-15 06:59:00 Test Item Value Reference Range Interpretation Comments Calcium, Ion (test code = 1993-) 1.10 mmol/L 1.12-1.27 L pH, Blood (test code = 70109-1) 7.48 Lab Interpretation (test code = Abnormal 71449-7) [facility] Center[facility]CIUM, [id number] 06:59:00 Test Item Value Reference Range Interpretation Comments CALCIUM IONIZED (BEAKER) (test 1.10 mmol/L 1.12-1.27 L code = 698) PH, BLOOD (BEAKER) (test code = 7.48 1810) Body fluid cell count with [id number] 18:49:00 Test Item Value Reference Range Interpretation Comments Appearance (test code Clear Clear = 9335-1) Color (test code = Yellow Colorless, Straw A 6824-7) RBCs (test code = 260 See_Comment H [Automate d 75696-7) message] The system which generated this result transmitted reference range : <=1 /cu mm. The reference range was not used to interpret this result as normal/abnormal . Adjusted WBC Count 170 See_Comment H [Automat ed (test code = 07610-4) messag e] The system which generated this result transmitted reference range : <=5 /cu mm. The reference range was not used to interpret this result as normal/abnormal . Lining Cells (test 0 See_Comment [Automat ed code = 31652-8) message] The system which generated this result transmitted reference range : <=1 /cu mm. The reference range was not used to interpret this result as normal/abnormal . % Segs (test code = 7 % 07060-1) % Lymphs (test code = 67 % 31192-9) % Monos (test code = 26 % 24303-9) % Eos (test code = 0 % 34561-5) % Baso (test code = 0 % 26711-9) Container Body Fluid Sterile (test code = 2873) Container Lab Interpretation Abnormal (test code = 53139-5) [facility] CenterBODY FLUID CELL COUNT WITH [id number] 18:49:00 Test Item Value Reference Range Interpretation [...] (BEAKER) (test code = 2873) Basic metabolic qzmls1944-44-48 06:55:00 Test Item Value Reference Range Interpretation Comments Sodium (test code = 144 meq/L 491-867 4157-2) Potassium (test code 3.5 meq/L 3.5-5.1 Specime n = 2823-3) slightly hemolyzed Chloride (test code = 110 meq/L 98-107 H 5-0) CO2 (test code = 25 meq/L 22-29 8-9) BUN (test code = 13 mg/dL 7-21 3094-0) Creatinine (test code 0.55 mg/dL 0.57-1.25 L Specim en = 2160-0) slightly hemolyzed Glucose (test code = 60 mg/dL 70-105 L 2345-7) Calcium (test code = 7.8 mg/dL 8.4-10.2 L 84926-5) EGFR (test code = 116 mL/min/1.73 [place] [address]-7) NOT ACCURATE CREATININE CLEARANCE IN PREDICTING GLOMERULAR FILTRATION RATE . ESTIMATED GFR I S NOT APPLICABLE FOR DIALYSIS PATIENTS. MADDIE (test code = MADDIE) Auto Top Mechanic ID - BSSpecimen slightly icteric Lab Interpretation Abnormal (test code = 51533-8) [facility] CenterBASI METABOLIC [id number] 06:55:00 Test Item Value Reference Range Interpretation [...] S NOT APPLICABLE FOR DIALYSIS PATIEN TS. Auto Top Mechanic ID - BSSpecimen slightly ictericHEPATIC FUNCTION [id number] 06:55:00 Test Item Value Reference Range Interpretation [...] Specimen slightly (test code = 347) hemolyzed Auto Top Mechanic ID - BSSpecimen slightly ysshytoANBKMTRKA4377-00-15 06:52:00 Test Item Value Reference Range Interpretation Comments MAGNESIUM (BEAKER) 1.6 mg/dL 1.6-2.6 Specimen slightly (test code = 627) hemolyzed Auto Top Mechanic ID - BSHepatitis B surface rtxzsgmw9005-25-72 06:08:00 Test Item Value Reference Range Interpretation Comments Hep B S Ab (test code <8.0 See_Comment [Auto mated = 78291-3) message] The system which generated this result transmit joseph reference range : <8.0 mIU/mL. Th e reference range was not used to interpret this result as normal/abnormal . MADDIE (test code = MADDIE) Auto Top Mechanic ID - BS Lab Interpretation Normal (test code = 21998-6) [facility] CenterAlpha fetoprotein (AFP), tumor njqfmk3332-19-41 06:08:00 Test Item Value Reference Range Interpretation Comments Alpha-Fetoprotein <2.0 See_Comment [Automate d (test code = 1834-1) message ] The system which generated this result transmit joseph reference range : <10.0 ng/mL. Th e reference range was not used to interpret this result as normal/abnormal . MADDIE (test code = MADDIE) Auto Top Mechanic ID - BS Lab Interpretation Normal (test code = 89019-5) [facility] CenterALPHA FETOPROTEIN (AFP), TUMOR [id number] 06:08:00 Test Item Value Reference Range Interpretation Comments ALPHA-FETOPROTEIN (BEAKER) (test code < ng/mL <10.0 = 1094) Auto Top Mechanic ID - BSHEPATITIS B SURFACE [id number] 06:08:00 Test Item Value Reference Range Interpretation Comments HEPATITIS B SURFACE ANTIBODY < mIU/mL <8.0 (BEAKER) (test code = 647) Auto Top Mechanic ID - BSPROTHROMBIN TIME/[id number] 05:34:00 Test Item Value Reference Range Interpretation Comments PROTIME (BEAKER) 18.4 seconds 11.9-14.2 H (test code = 759) INR (BEAKER) (test 1.55 See_Comment [Automat ed message] code = 370) The system mobicanvas generated this result transmitted ref erence range: [...] (BEAKER) (test code = 2801) Blood Culture Panel([employer])2021-04-08 02:34:00 Test Item Value Reference Interpretation Comments Range LISTERIA MONOCYTOGENES Not detected Not detected (test code = 87840-9) STAPHYLOCOCCUS (test Detected Not detected A Coagula se negative code = 29811-0) Staph specie s (CoNS)- methicillin resistantFirst- delmis e therapy: Vancomycin MecA DETECTED Possib le contamination. The likelihood of pathogenicity i s increased if th e organism is observed in multiple blood cultures obtain ed from separate venipunctures. Reference Range : Not Detected STAPHYLOCOCCUS AUREUS Not detected Not detected (test code = 53884-4) Streptococcus (test Not detected Not detected code = 29290-0) STREPTOCOCCUS Not detected Not detected AGALACTIAE (GROUP B) (test code = 06201-9) STREPTOCOCCUS Not detected Not detected PNEUMONIAE (test code = 12217-0) Streptococcus pyogenes Not detected Not detected (Group A) (test code = 03834-0) ACINETOBACTER BAUMANNII Not detected Not detected (test code = 08937-6) HAEMOPHILUS INFLUENZAE Not detected Not detected (test code = 26929-2) NEISSERIA MENINGITIDIS Not detected Not detected (test code = 22721-1) ENTEROBACTERIACEAE Not detected Not detected (test code = 90518-9) ENTEROBACTER CLOACOE Not detected Not detected COMPLEX (test code = 57471-8) KLEBSIELLA OXYTOCA Not detected Not detected (test code = 51785-4) KLEBSIELLA PNEUMONIAE Not detected Not detected (test code = 43306-8) PROTEUS (test code = Not detected Not detected 20739-8) SERRATIA MARCESCENS Not detected Not detected (test code = 60795-7) ELIZ ALBICANS (test Not detected Not detected code = 98609-4) ELIZ GLABRATA (test Not detected Not detected code = 85663-7) ELIZ KRUSEI (test Not detected Not detected code = 80241-4) ELIZ PARAPSILOSIS Not detected Not detected (test code = 00259-8) ELIZ TROPICALIS Not detected Not detected (test code = 04937-0) ESCHERICHIA COLI (test Not detected Not detected code = 51460-3) METHICILLIN-RESISTANCE Detected Not detected A Note: GENE (test code = Antimicrob ial 32123-9) resistance can occur via multi ple mechanisms. A N ot Detected result for the [employer] antimicrobial resistance gene assays does not indicate antimicrobial susceptibility. Subculturing is required for species identification and susceptibility testing of isolates. VANCOMYCIN-RESISTANCE GENE (test code = 88309-0) CARBAPENEM-RESISTANCE GENE (test code = 27539-5) ENTEROCOCCUS (test code Not detected Not detected = 41859-8) PSEUDOMONAS AERUGINOSA Not detected Not detected (test code = 48940-0) MADDIE (test code = MADDIE) Other bacteria and resistance markers not targeted by this PCR panel cannot be excluded; therefore clinical correlation and follow up of serology, culture results, and other molecular studies is required. The results are not intended to be used as the sole means for clinical diagnosis or patient management decisions. This sample was tested at the [facility] using the [employer] Blood Culture ID Panel. It is FDA cleared and has been verified and approved by the [facility] for clinical use. This laboratory is CLIA-certified and [employer] [place] (CAP)-accredited to perform high complexity testing. Lab Interpretation Abnormal (test code = 56064-1) [facility] CenterBLOOD CULTURE IDENTIFICATION [id number] 02:34:00 Test Item Value Reference Interpretation Comments Range LISTERIA MONOCYTOGENES Not detected Not detected (test code = 9285382) STAPHYLOCOCCUS (test Detected Not detected A Coagula se negative code = 3161783) Staph specie s (CoNS)- methici llin resistantFirst- line therapy: Vancom ycin MecA DETECTED Possible contamination. The likelihood of pathogenicity i s increased if th e organism is observed in multiple blood cultures obtain ed from separate venipunctures. Reference Range : Not Detected STAPHYLOCOCCUS AUREUS Not detected Not detected (test code = 7587147) STREPTOCOCCUS (test code Not detected Not detected = 4277576) STREPTOCOCCUS AGALACTIAE Not detected Not detected (GROUP B) (test code = 2759722) STREPTOCOCCUS PNEUMONIAE Not detected Not detected (test code = 5443109) STREPTOCOCCUS PYOGENES Not detected Not detected (GROUP A) (test code = 2509485) ACINETOBACTER BAUMANNII Not detected Not detected (test code = 3181079) HAEMOPHILUS INFLUENZAE Not detected Not detected (test code = 4984642) NEISSERIA MENINGITIDIS Not detected Not detected (test code = 1391232) ENTEROBACTERIACEAE (test Not detected Not detected code = 7470746) ENTEROBACTER CLOACOE Not detected Not detected COMPLEX (test code = 2584855) KLEBSIELLA OXYTOCA (test Not detected Not detected code = 8303371) KLEBSIELLA PNEUMONIAE Not detected Not detected (test code = 1650) PROTEUS (test code = Not detected Not detected 0092663) SERRATIA MARCESCENS Not detected Not detected (test code = 6288927) ELIZ ALBICANS (test Not detected Not detected code = 6326762) ELIZ GLABRATA (test Not detected Not detected code = 3226617) ELIZ KRUSEI (test Not detected Not detected code = 9345993) ELIZ PARAPSILOSIS Not detected Not detected (test code = 6845667) ELIZ TROPICALIS (test Not detected Not detected code = 5069267) ESCHERICHIA COLI (test Not detected Not detected code = 0246759) METHICILLIN-RESISTANCE Detected Not detected A Note: Antimicrobial GENE (test code = resistance can 9914643) occur via multi ple mechanisms. A N ot Detected result for the [employer] antimicrobial resistance gene assays does not indicate antimicrobial susceptibility. Subculturing is required for species identification and susceptibility testing of isolates. VANCOMYCIN-RESISTANCE GENE (test code = 9305215) CARBAPENEM-RESISTANCE GENE (test code = 2789839) ENTEROCOCCUS-BEAKER Not detected Not detected (test code = 5790359) PSEUDOMONAS Not detected Not detected AERUGINOSA-BEAKER (test code = 1052620) Other bacteria and resistance markers not targeted by this PCR panel cannot be excluded; therefore clinical correlation and follow up of serology, culture results, and other molecular studies is required. The results are not intended to be used as the sole means for clinical diagnosis or patient management decisions. This sample was tested at the [facility] Molecular Diagnostics Laboratory using the [employer] Blood Culture ID Panel. It is FDA cleared and has been verified and approved by the [facility] Molecular Diagnostics Laboratory for clinical use. This laboratory is CLIA-certified and College ofAmerican Pathologists (CAP)-accredited to perform high complexity testing.Rapid drug screen, [id number] 13:13:00 Test Item Value Reference Range Interpretation Comments Methamphetamine Screen Positive Negative A (test code = 11306-4) Barbiturate Screen Negative Negative (test code = 60287-7) Benzodiazepine Screen Positive Negative A (test code = 32198-1) Cocaine (Metab.) Screen Negative Negative (test code = 3397-7) Methadone Screen (test Positive Negative A code = 73842-1) Opiate Screen (test Negative Negative code = 16173-4) Cannabinoid Screen Negative Negative (test code = 32708-0) Tricyclic Screen (test Negative Negative code = 49061-0) Amphetamine Screen Negative Negative (test code = 95157-5) Phencyclidine Screen Negative Negative (test code = 01480-7) pH, UA (test code = 6.0 5.0-8.0 5803-2) MADDIE (test code = MADDIE) DRUG CUTOFF CONC.Cocaine 300 ng/mL Cannabinoid 50 ng/mLBenzodiazepine 200 ng/mLBarbiturate 200 ng/mLPhencyclidine 25 ng/mLOpiate 300 ng/mLMethadone 300 ng/mLAmphetamine/ 1000 ng/mL Methamphetamine This assay provides an unconfirmed qualitative test result for the clinical management of patients in emergency situations. Chain of custody not maintained. Some kejo-pzw-mizdczj medications, as well as adulterants, may cause inaccurate results. Clinical correlation should be applied. A more comprehensive drug screen or confirmation of a detected drug may be performed upon request. Lab Interpretation Abnormal (test code = 84717-1) [facility] Center[facility] SCREEN, [id number] 13:13:00 Test Item Value Reference Range Interpretation [...] situations. Chain of custody not maintained. Some anor-myl-ialenls medications, as well as adulterants, may cause inaccurate results. Clinical correlation should be applied. A more comprehensivedrug screen or confirmation of a detected drug may be performed upon request.Urinalysis w/Microscopic + Reflex to [id number] 12:09:00 Test Item Value Reference Range Interpretation Comments Color, UA (test code Yellow = 5778-6) Clarity, UA (test Hazy code = 5767-9) Specific [place], UA 1.018 1.001-1.035 (test code = 5811-5) pH, UA (test code = 6.5 5.0-8.0 5803-2) Protein, UA (test 50 mg/dL Negative A code = 05997-0) Glucose, UA (test Negative Negative code = 365) Ketones, UA (test Negative Negative code = 2514-8) Bilirubin, UA (test Negative Negative code = 25578-4) Blood, UA (test code Moderate Negative A = 80767-7) Nitrite, UA (test Negative Negative code = 5802-4) Leukocytes, UA (test Negative Negative code = 5799-2) Urobilinogen, UA 4.0 mg/dL 0.2-1 H (test code = 89125-0) RBC, UA (test code = 122 See_Comment [Autom ated 40804-2) message] The system which generated this result [...] Bacteria, UA (test None Seen code = 21775-5) Mucus (test code = Rare 8247-9) Squam Epithel, UA 25 See_Comment [Automate d (test code = 28227-3) messag e] The system which generated this result transmit joseph reference range : /HPF. The reference range was not used to interpret this result as normal/abnormal . Hyaline Casts, UA 6 See_Comment [Automate d (test code = 93863-0) messag e] The system which generated this result transmit joseph reference range : /LPF. The reference range was not used to interpret this result as normal/abnormal . Crystals, Urine (test None Seen code = 95748-0) Specimen Source (test code = 2795) MADDIE (test code = MADDIE) Auto Top Mechanic ID - [auto]Auto Top Mechanic ID - tech Lab Interpretation Abnormal (test code = 74919-5) [facility]/ REFLEX URINE [id number] 12:09:00 Test Item Value Reference Range Interpretation [...] = 1521) SOURCE(BEAKER) (test code = 2795) Auto Top Mechanic ID - [auto]Auto Top Mechanic ID - techCT, BRAIN, WITHOUT [id number] 08:19:00Unlisted Reason for Exam - Click Yes and Enter Reason Below- >YesPossible acute infarct on prior CT but motion limitedUnlisted Reason for Exam->Possible acute infarct on prior CT but very motion limited. Radiology [facility]ICA : 1970 Sex: FFINAL REPORT CT, BRAIN, [...] MDReport Verified Date/Time: 04/07/2021 08:19:05 Reading Location: [address] Neuro Reading Room brain without IV smwebelu1083-55-30 08:19:00Interface, External Ris In - 04/07/2021 8:21 [...] MDReport Verified Date/Time: 04/07/2021 08:19:05 Reading Location: [address] Neuro Reading Room [facility] [place] METABOLIC [id number] 05:27:00 Test Item Value Reference Range Interpretation [...] S NOT APPLICABLE FOR DIALYSIS PATIEN TS. Auto Top Mechanic RIGOBERTO Paredesecimen moderately [id number] 05:12:00 Test Item Value Reference Range Interpretation Comments MAGNESIUM (BEAKER) (test code = 1.4 mg/dL 1.6-2.6 L 627) Auto Top Mechanic RIGOBERTO CONRAD EPATIC FUNCTION [id number] 05:12:00 Test Item Value Reference Range Interpretation [...] (test code = 28 U/L 6-55 347) Auto Top Mechanic RIGOBERTO Paredesecimen moderately ictericPROTHROMBIN TIME/[id number] 04:52:00 Test Item Value Reference Range Interpretation Comments PROTIME (BEAKER) 17.5 seconds 11.9-14.2 H (test code = 759) INR (BEAKER) (test 1.46 See_Comment [Automat ed message] code = 370) The system mobicanvas generated this result transmitted ref erence range: [...] Comments SARS-COV2/RT-PCR (test Negative Negative code = 43795-1) Influenza A RT-PCR Negative Negative (test code = 33706-6) Influenza B RT-PCR Negative Negative (test code = 06498-1) RSV by RT-PCR (test Negative Negative Performa nce of the code = 51744-1) Xpert Xpress SARS-CoV-2/Flu/ RSV test has only [...] Fact Sh eet for Healthcare Prov iders: https://www.[employer] /Documents/Xper t%20Xpre ss%31GGUV-ReQ-9 -Flu-RSV /302-3108%20Rev .%20B%20 HCP%20Fact%20Sh eet.pdf Fact Sheet for Healthcare Loan ents: https://www.[employer] /Documents/Xper t%20Xpre ss%13WKWI-AwS-3 -Flu-RSV /952-4549%20Rev .%20B%20 Patient%20Fact% 20Sheet. pdf Lab Interpretation Normal (test code = 36544-7) [facility]RSV ID-[id number] 03:01:00 Test Item Value Reference Range Interpretation Comments SARS-COV2/RT-PCR Negative Negative (test code = 8787096) INFLUENZA A RT-PCR Negative Negative (test code = 9923686) INFLUENZA B RT-PCR Negative Negative (test code = 7554527) RSV RT-PCR (test Negative Negative Performanc e of the Xpert code = 8442854) Xpress SARS- CoV-2/Flu/RSV test has only b [...] sooner.Fact She et for Healthcare Prov iders: https://www.[employer]/D ocuments/Xpert% 20Xpress%2 5MAXC-TyF-1-Flu -RSV/302-4 508%20Rev.%20B% 20HCP%20Fa ct%20Sheet.pdfF act Sheet for Healthcare Patients: https://www.[employer]/D ocuments/Xpert% 20Xpress%2 5DFFR-IxS-7-Flu -RSV/302-4 507%20Rev.%20B% 20Patient% 20Fact%20Sheet. pdf CT, BRAIN, WITHOUT [id number] 00:40:00Reason for exam:->Confusion [facility] : 1970 Sex: FFINAL REPORT [...] Date/Time: 04/07/2021 00:40:41 High Sensitivity Troponin I ([facility]/Mary Only)2021-04-06 21:40:00 Test Item Value Reference Range Interpretation Comments Troponin I HS <4 See_Comment [Automated (test code = message] The 19576-8) system which generated this result transmitted reference range : <=17 pg/ml. The reference range was not used to interpret this result as normal/abnormal . MADDIE (test code = Auto Top Mechanic ID - MADDIE) DBThe CNC SERVICE TECHNICIAN STAT High Sensitivity Troponin-I results should be used in conjunction with other diagnostic information such as ECG, clinical observations and information, and patient symptoms to aid in the diagnosis of [place]. Lab Interpretation Normal (test code = 49281-4) [facility]IT[facility] TROPONIN [id number] 21:40:00 Test Item Value Reference Range Interpretation Comments HIGH SENSITIVITY < pg/ml See_Comment [Automated message] TROPONIN I (test code = The system which 6767344) generated this result transmitted ref erence range: <=17. Th e reference range was not used to interpr et this result as normal/abnormal . Auto Top Mechanic ID - DBThe CNC SERVICE TECHNICIAN STAT High Sensitivity Troponin-I results should be used in conjunctionwith other diagnostic information such as ECG, clinical observations and information, and patient symptoms to aid in the diagnosis of [place].[id number] 21:36:00 Test Item Value Reference Range Interpretation Comments MAGNESIUM (BEAKER) 1.5 mg/dL 1.6-2.6 L Specimen slightly (test code = 627) hemolyzed Auto Top Mechanic ID - [id number] 21:36:00 Test Item Value Reference Range Interpretation Comments PHOSPHORUS (BEAKER) 3.0 mg/dL 2.3-4.7 Specimen slightly (test code = 604) hemolyzed Auto Top Mechanic ID - DBCOMPREHENSIVE METABOLIC [id number] 21:36:00 Test Item Value Reference Range Interpretation [...] S NOT APPLICABLE FOR DIALYSIS PATIEN TS. Auto Top Mechanic ID - DBSpecimen moderately ictericBlood alcohol [id number] 21:32:00 Test Item Value Reference Range Interpretation Comments Ethanol Lvl (test <10 See_Comment [Automate d code = 5643-2) message] The system which generated this result transmit joseph reference range : <=10 mg/dL. The reference range was not used to interpret this result as normal/abnormal . MADDIE (test code = MADDIE) Auto Top Mechanic ID - DB Lab Interpretation Normal (test code = 53745-1) [facility] CenterETHANOL2021-06-21 21:32:00 Test Item Value Reference Range Interpretation Comments ETHANOL (BEAKER) < mg/dL See_Comment [Automated message] The (test code = 400) system i generated this result tra nsmitted reference range : <=10. The reference r jermaine was not used to int erpret this result as normal/abnormal . Auto Top Mechanic ID - [id number] 21:24:00 Test Item Value Reference Range Interpretation Comments Ammonia (test code = 178 See_Comment [place] 8[address]-9) moderately hemolyzed [Automated message] The system which generated this result transmit joseph reference range : 18 - 72 mol/L . The reference range was not u sed to interpret th is result as normal/abnormal . MADDIE (test code = MADDIE) Auto Top Mechanic ID - DB Lab Interpretation Abnormal (test code = 17776-7) [facility] CenterAMMONIA2021-06-21 21:24:00 Test Item Value Reference Range Interpretation Comments AMMONIA (BEAKER) 178 mol/L 18-72 H Specimen mo derately (test code = 348) hemolyzed Auto Top Mechanic ID - DBPT/[id number] 20:33:00 Test Item Value Reference Interpretation Comments Range Protime (test code = 17.4 See_Comment H [Autom ated 5902-2) message] The system which generated this result transmitted reference range : 11.9 - 14.2 seconds. The reference range was not used to interpret this result as normal/abnormal . INR (test code = 1.45 See_Comment [Automated 7001-6) message] The system which generated this result transmitted reference range : <=5.90. The reference range was not used to interpret this result as normal/abnormal . PTT (test code = 31.4 See_Comment [Automated 28476-8) message] The system which generated this result [...] valves. Lab Interpretation Abnormal (test code = 14697-9) [facility] CenterPT/[id number] 20:33:00 Test Item Value Reference Range Interpretation [...] (BEAKER) (test code = 2801) ECG 12 [id number] 13:43:01Interface, External Ris In - 03/13/2021 1:43 PM CDTVentricular Rate 111 BPMAtrial Rate 111 BPMP-R Interval 130 msQRS Duration 72 msQ-T Interval 354 msQTC Calculation(Bazett) 481 msP [place] 73 degreesR [place] 12 degreesT [place] 26 degreesSinus tachycardiaLow voltage QRSCannot rule out Anterior infarct (cited on or before 12-MAR-2021)Abnormal ECGWhen compared with ECG of 22-OCT-2020 14:01,T wave inversion more evident in Anterior leadsConfirmed by Antonio Hoffman ([id number]) on 03/13/2021 1:42:58 [facility] COMPREHENSIVE METABOLIC [id number] 15:00:00 Test Item Value Reference Range Interpretation [...] S NOT APPLICABLE FOR DIALYSIS PATIEN TS. Auto Top Mechanic ID - DBSpecimen moderately zudtlzeRqszqb1883-19-86 14:59:00 Test Item Value Reference Range Interpretation Comments Lipase (test code = 158 U/L 8-78 H 3040-3) MADDIE (test code = MADDIE) Auto Top Mechanic ID - DBSpecimen moderately icteric Lab Interpretation (test Abnormal code = 16342-7) [facility] CenterLIPASE2021-05-27 14:59:00 Test Item Value Reference Range Interpretation Comments LIPASE (BEAKER) (test code = 749) 158 U/L 8-78 H Auto Top Mechanic ID - DBSpecimen moderately ictericPT/MMPC3245-17-12 14:49:00 Test Item Value Reference Range Interpretation [...] 0-1 PERCENT (BEAKER) (test code = 2801) [id number] 00:00:00Ordered by an unspecified provider.[facility] CenterCYTO2021-03-26 11:52:00 Test Item Value Reference Range Interpretation Comments CYTO (test code = CYTO) RUN DATE: 01/09/21 [facility] LAB *LIVE* PAGE 1 RUN TIME: 1152 Specimen Inquiry RUN USER: INTERFACE PATIENT: DWAIN ESPINOSA [facility] [id number] AGE/SX: 50/F ROOM: [place] [address] RE01/06/21REG DR: Dru Platt MD : [birth year] BED: 1 DIS: 01/08/21 STATUS: DIS IN TLOC: SPEC #: [id number] RECD: 01/08/21 STATUS: CRISTELA REQ #: [id number] JAX: 01/07/21-1025 [facility] DR: Dru Platt MD ENTERED: 01/08/21 SP [...] INFLAMMATORY CELLS (MOSTLY NEUTROPHILS) AND HISTIOCYTES CPT 50418, 53295 GROSS DESCRIPTION Received and labeled "Ascites", are 1100 ml of carlos fluid. The fluid is set in cytolyt solution for a Thin Prep slide preparation which is stained with Pap stain. A cell block is also performed. Signed SIGNATURE ON FILE Sukhwinder Coe 01/09/21 1152 END OF REPORT [id number] 15:15:00 Test Item Value Reference Range Interpretation [...] H PHOSPHATASE (test code = ALKP) PROTHROMBIN [id number] 06:22:00 Test Item Value Reference Range Interpretation [...] and/or recurren t systemicemboliz ation. CBC W/AUTO [id number] 06:11:00 Test Item Value Reference Range Interpretation [...] 10 3/uL 0.0-0.1 N UR SMEAR EOSINOPHIL [id number] 16:07:00 Test Item Value Reference Range Interpretation Comments UR SMEAR EOSINOPHIL COUNT (test code NEGATIVE NEGATIVE = EOSCTU) BASIC METABOLIC [id number] 15:04:00 Test Item Value Reference Range Interpretation [...] L CA) UA RFLX MICR CULT IF [id number] 14:31:00 Test Item Value Reference Range Interpretation [...] Indication for culture: Suprapubic Pain- DUP VEIN [id number] 12:03:00 [facility] 1970 Sex: FPatient Name: DWAIN ESPINOSA Unit No: [id number] EXAMS: CPT CODE: [id number] DUP VEIN KACI [address]58[address] Exam: Bilateral lower extremity venous Doppler ultrasound [...] 01/07/2021 (1203) by:[email or web address] Electronic Signature Date/Time: 01/07/2021 (9313)Orig Print D/T: S: 01/07/2021 (1207) Name: DWAIN ESPINOSA [facility] Phys: [place] [address] : 1970 Age: 50 Sex: [place] [id number] Loc: [place].ERIMCU Exam Date: 01/07/2021 Status: ADM IN PH: FAX: PAGE 1 Signed Report- US PARACENTESIS W IMAGE 2021-01-07 11:29:00 [facility] : 1970 Sex: FPatient Name: DWAIN ESPINOSA Unit No: [id number] EXAMS: CPT CODE: [id number] US PARACENTESIS W IMAGE 48121 ULTRASOUND-GUIDED PARACENTESIS DICTATION LOCATION: A1 History: New [...] D/T: S: 01/07/2021 (1132) Name: DWAIN ESPINOSA [facility] [place] Phys: [place] [address] : 1970 Age: 50 Sex: [place] [address] Loc: [place].ERIMCU Exam Date: 01/07/2021 Status: ADM IN PH: FAX: PAGE 1 Signed ReportMAGNESIUM 2021-01-07 07:48:00 Test Item Value Reference Range Interpretation Comments MAGNESIUM (test code = MAG) 2.0 mg/dL 1.8-2.4 N THYROID PROFILE [id number] 07:48:00 Test Item Value Reference Range Interpretation Comments T3 UPTAKE (test code = T3UP) 45.0 % 31.0-39.0 H T4 (THYROXINE) (test code = T4) 4.5 ug/dL 4.7-11.4 L T7 (FREE THYROXINE INDEX) (test 2.0 % 1.7-4.2 N code = T7) THYROID STIMULATING HORMONE (test 2.89 mIU/mL 0.36-3.74 N code = TSH) COMPREHENSIVE METABOLIC [id number] 04:37:00 Test Item Value Reference Range Interpretation [...] H PHOSPHATASE (test code = ALKP) LACTIC [id number] 04:37:00 Test Item Value Reference Range Interpretation Comments LACTIC ACID (test code = LACT) 1.9 mmol/L 0.4-2.0 N PROTHROMBIN [id number] 04:35:00 Test Item Value Reference Range Interpretation [...] and/or recurren t systemicemboliz ation. CBC W/AUTO [id number] 04:13:00 Test Item Value Reference Range Interpretation [...] BA#) 0.06 10 3/uL 0.0-0.1 N LACTIC [id number] 01:29:00 Test Item Value Reference Range Interpretation Comments LACTIC ACID (test 2.2 mmol/L 0.4-2.0 H Elevated L actate code = LACT) reported to the following Caregiver:Full Name/Title: KYLIE GARCIA RNby FLACO, on 01/07/21, @ 012 9 LACTIC [id number] 22:09:00 Test Item Value Reference Range Interpretation Comments LACTIC ACID (test 2.2 mmol/L 0.4-2.0 H Elevated L actate code = LACT) reported to the following Careg iver:Full Name/Title: GRETA SCHULZ RN by JASBIR, on 01/06/21, @ 220 4 RN CHECKING TO SEE IF NEEDEDPROTHROMBIN [id number] 18:37:00 Test Item Value Reference Range Interpretation [...] and/or recurren t systemicemboliz ation. THROMBOPLASTIN TIME [id number] 18:37:00 Test Item Value Reference Range Interpretation Comments THROMBOPLASTIN TIME PARTIAL 40.6 SECONDS 25.1-36.5 H (test code = PTT) [id number] 18:06:00 Test Item Value Reference Range Interpretation [...] 0-100 N - CT ABD PELVIS W/O [id number] 16:18:00 [facility] : 1970 Sex: FPatient Name: DWAIN ESPINOSA Unit No: [id number] EXAMS: CPT CODE: [id number] CT ABD PELVIS W/O CONT 85395 Site ID: [id number] CLINICAL HISTORY: Liver failure, [...] by: Choco Hart MD CC: Kia Worley GRINDING WHEEL INSPECTOR; Eric Brito Jr, MD Technologist: Leta Negro; Jazzy Gilmore CTDI: 25.95 DLP: 1420.0 Trscr Dt/Tm: 01/06/2021 (161) by:[email or web address] Electronic Signature Date/Time: 01/06/2021 (161)Orig Print D/T: S: 01/06/2021 (1621) Name: ESPINOSADWAIN [facility] [place] Phys: Kia Elizondo [address] : 1970 Age: 50 Sex: [place] [address] Loc: [place].ERS Exam Date: 01/06/2021 Status: REG ER PH: FAX: PAGE 1 Signed ReportB-TYPE NATRIURETIC [id number] 15:14:00 Test Item Value Reference Range Interpretation Comments B-TYPE NATRIURETIC PEPTIDE (test 77 pg/mL 0-100 N code = BNP) BASIC METABOLIC [id number] 15:00:00 Test Item Value Reference Range Interpretation [...] DATE OF LAST MENSTRUAL PERIOD: 01/07/20LIVER FUNCTION [id number] 15:00:00 Test Item Value Reference Range Interpretation [...] = ALKP) DATE OF LAST MENSTRUAL PERIOD: 01/07/[id number] 15:00:00 Test Item Value Reference Range Interpretation Comments LIPASE (test code = LIP) 212 U/L 73-393 N DATE OF LAST MENSTRUAL PERIOD: 01/07/20HCG SERUM [id number] 15:00:00 Test Item Value Reference Range Interpretation Comments HCG SERUM QUAL (test code = HCGQL) NEGATIVE NEGATIVE DATE OF LAST MENSTRUAL PERIOD: 01/07/[id number] 15:00:00 Test Item Value Reference Range Interpretation Comments TROPONIN-I (test code = TROPI) < 0.02 ng/mL 0.00-0.07 N DATE OF LAST MENSTRUAL PERIOD: 01/07/20LACTIC [id number] 15:00:00 Test Item Value Reference Range Interpretation Comments LACTIC ACID (test 2.5 mmol/L 0.4-2.0 H Elevated L actate code = LACT) reported to the following Caregiver:Full Name/Title: JAKOB PATTERSON by [email or web address].JQ, on 01/06/21, @ 150 0 Coronavirus 2019 nCoV [id number] 14:55:00 Test Item Value Reference Range Interpretation Comments Coronavirus 2019 Negative Negative This test h ad not been FDA nCoV Bedside cleared or appr [place]; This (test code = testhas been au thorized by [id number]) FDA under an E UA for use byauthorized la boratories only for the de tection of nucleicacid fro m SARS-CoV-2, not for any oth er viruses orpathogens. ID NOW COVID-19 assay performed on the ID [facility]rom[facility] i s a rapid molecular in [...] Sharon ndments of 1987 (CLIA), BASIC METABOLIC [id number] 14:45:00 Test Item Value Reference Range Interpretation [...] DATE OF LAST MENSTRUAL PERIOD: 01/07/20LIVER FUNCTION [id number] 14:45:00 Test Item Value Reference Range Interpretation [...] 45-117 ALKP) DATE OF LAST MENSTRUAL PERIOD: 01/07/[id number] 14:45:00 Test Item Value Reference Range Interpretation Comments LIPASE (test code = LIP) U/L 73-393 DATE OF LAST MENSTRUAL PERIOD: 01/07/20HCG SERUM [id number] 14:45:00 Test Item Value Reference Range Interpretation Comments HCG SERUM QUAL (test code = HCGQL) NEGATIVE NEGATIVE DATE OF LAST MENSTRUAL PERIOD: 01/07/[id number] 14:45:00 Test Item Value Reference Range Interpretation Comments TROPONIN-I (test code = TROPI) ng/mL 0.00-0.07 DATE OF LAST MENSTRUAL PERIOD: 01/07/20CBC W/AUTO [id number] 14:33:00 Test Item Value Reference Range Interpretation [...] 3/uL 0.0-0.1 N - XR CHEST 1 [id number] 13:20:00 [facility] : 1970 Sex: FPatient Name: DWAIN ESPINOSA Unit No: [id number] EXAMS: CPT CODE: [id number] XR CHEST 1 V 89018 CHEST, SINGLE VIEW DICTATION LOCATION N9AAALEGP: Abdominal pain. A single view of the [...] Noel Bach Jr, MD CC: Kia Worley GRINDING WHEEL INSPECTOR; Eric Brito Jr, MD Technologist: Hina Richardson Fluoro Time: DAP (Gy m2): Air Kerma (mGy): Trscr Dt/Tm: 01/06/2021 (1320) by:Anne Electronic Signature Date/Time: 01/06/2021 (1320)Orig Print D/T: S: 01/06/2021 (1323) Name: DWAIN ESPINOSA [facility] [place] Phys: [id number] - Kia Worley [address] : 1970 Age: 50 Sex: [place] [address] Loc: [place].ERS Exam Date: 01/06/2021 Status: REG ER PH: FAX: PAGE 1 Signed ReportHepatitis C [id number] 20:39:00 Test Item Value Reference Range Interpretation Comments HCV 3 The method used in this Genotype, test is RT-PCR and LiPA (test reversehybridiz ation (Line code = Probe) of the 5 ' UTR and ) coreregion of t he HCV genome. The lucas lytical performance lance racteristics of thisassay frey ve been determined by [facility] uThromboVision DiagnosticsInfe ctious Disease. The mo difications have not beencl eared or approved by the FDA. This assay has beenv alidated pursuant to the CLIA regulations and isused for clinical purpos es. For additional info rmation, please refer tohttp://educat ion.[employer] /faq/HCVGenotyp ing(This link id being p rovided for informational/e ducational purposes only.) MADDIE (test Performing Lab code = MADDIE) *[employer] [facility] [address] [place] [address] Arnie Phillips MD [facility] CenterActin (Smooth Muscle) Antibody, [id number] 01:39:00 Test Item Value Reference Interpretation Comments Range Anti-Smooth Muscle 23 U See Note: H Reference Range:<20 Ab (test code = NEGATI VE> OR ) = 20 POSITIVE Antibodies recognizing act in are the main componentof smo oth muscle antibodi es associated withautoimmune liver disease. Actin antibodie s arefound in approximately 7 5% of patients withautoimmune hepatitis (AIH) type 1, nvjnsimulykuf70 % of patients with autoimmune cholangitis,mary bi mately 30% of patients with primary biliarycirrhosi s, and approximate ly 2% of healthy people.High barb ues are closely correlated with AIH type 1. MADDIE (test code = Performing Lab MADDIE) [employer] [facility] [address] [place] [address] Wilder Ochoa MD, PhD, BEATRICE Lab Interpretation Abnormal (test code = 79489-9) [facility] CenterBLOOD [id number] 18:00:00 Test Item Value Reference Range Interpretation Comments CULTURE (BEAKER) (test No growth in 5 days code = 1095) ANTI-MITOCHONDRIAL AB, REFLEX TO [id number] 10:14:00 Test Item Value Reference Range Interpretation Comments SCAN RESULT (test code = 6650594) Anti-Mitochondrial Ab, reflex to [id number] 10:14:00Scan ResultQUEST DIAGNOSTIC INCORPORATEDWhittier Hospital Medical CenterMitochondrial Ab Screen 2020-10-25 12:18:00 Test Item Value Reference Range Interpretation Comments Anti-Mitocho NEGATIVE NEGATIVE This test was developed nd Abs (test and its analyti vasile code = performance 2578162) characteristics havebeen determined by [facility].It h as not been cleared or approved by FDA. This as say has been validatedp ursuant to the CLIA reg ulations and is used for clinical purposes. MADDIE (test Performing Lab code = MADDIE) [employer] [address] [address] Wilder Ochoa MD, PhD, BEATRICE [facility] CenterMitochondrial Ab [id number] 12:18:00 Test Item Value Reference Range Interpretation Comments Mitochondrial Ab TNP See_Comment Test Not Titer (test code = Performed . 3133996) Screening test Negative or Not Detected. Titer notperformed. [Automated message] The system which generated this result transmitted reference range : <1:20. The reference range was not used to interpret this result as normal/abnormal . MADDIE (test code = Performing Lab MADDIE) [employer] [address] [address] Wilder Ochoa MD, PhD, BEATRICE [facility] CenterCeruloplasmin2021-01-09 11:45:00 Test Item Value Reference Range Interpretation Comments Ceruloplasmin (test code 27 mg/dL 18-53 = 20191208) MADDIE (test code = MADDIE) Performing Lab *BARB [employer] [facility], [address] [place] [address] Antonieta Small MD [facility] CenterHepatitis C PCR, [id number] 22:54:00 Test Item Value Reference Range Interpretation Comments HCV PCR, Quantitative 605389 See_Comment H [Auto mated (test code = 99204-5) messag e] The system which generated this result transmitted reference range : <15 IU/mL. The reference range was not used to interpret this result as normal/abnormal . MADDIE (test code = MADDIE) This test uses a Real-Time Polymerase Chain Reaction (RT-PCR) methodology and was performed using [employer]IXA Ampliprep/MARIXA TaqMan HCV test kit version 2.0 ([employer]). Reportable range for this assay is 15 - 100,000,000 IU per mL (1.18 - 8.00 Log IU/mL). Lab Interpretation Abnormal (test code = 01948-8) [facility] CenterHEPATITIS C PCR, [id number] 22:54:00 Test Item Value Reference Range Interpretation Comments HCV NUMERIC RESULT (BEAKER) 712068 IU/mL <15 H (test code = 2700) This test uses a Real-Time Polymerase Chain Reaction (RT-PCR) methodology and was performed using [employer] Ampliprep/MARIXA TaqMan HCV test kit version 2.0 ([employer]).Reportable range for this assay is 15 - 100,000,000 IU per mL (1.18 - 8.00 Log IU/mL).U/S, ABDOMINAL, [id number] 17:32:00Labs to be ordered:->Body Fluid Culture (w/Gram Stain, C\\T\\S) Labs to be ordered:->Cell Count Labs to be ordered:->Glucose+LDH+Protein Labs to be ordered:->Cytology Reason for exam:->diagnostic para for new ascites in pt w/ cirrhosisSA[facility] : 1970 Sex: FFINAL REPORT Limited abdominal ultrasound CLINICAL HISTORY: Ascites F INDINGS: A limited abdominal ultrasound was performed and only a trace amount of fluid was seen. Therefore a paracentesis was not performed. Signed: Alex Cervantes Verified Date/Time: 10/24/2020 17:32:34 Reading Location: [place] [id number] Ultrasound Reading Room US abdomen [id number] 17:32:00Interface, External Ris In - 10/24/2020 5:34 PM CSTFINAL REPORT Limited abdominal ultrasound CLINICAL HISTORY: Ascites FINDINGS: A limited abdominal ultrasound was performed and only a trace amount of fluid was seen. Therefore a paracentesis was not performed. Signed: Alex Cervantes Verified Date/Time: 10/24/2020 17:32:34 Reading Location: [address] Ultrasound Reading Room [facility] CenterCOMPREHENSIVE METABOLIC PANEL 2020-10-24 03:23:00 Test Item Value [...] S NOT APPLICABLE FOR DIALYSIS PATIEN TS. Auto Top Mechanic ID - PIAYA LSpecimen slightly ictericPROTHROMBIN TIME/[id number] 03:08:00 Test Item Value Reference Range Interpretation [...] mechanical heart valves.CBC W/PLT COUNT & AUTO [id number] 02:45:00 Test Item Value Reference Range Interpretation [...] 0-1 PERCENT (BEAKER) (test code = 2801) [id number] 12:56:00 Test Item Value Reference Range Interpretation Comments Ferritin (test code = 71.00 ng/mL 5-275 2276-4) MADDIE (test code = MADDIE) Auto Top Mechanic ID - AAHAMID Lab Interpretation (test Normal code = 27937-3) [facility] CenterFolate, [id number] 12:56:00 Test Item Value Reference Range Interpretation Comments Folate (test code = 12.30 ng/mL See_Comment [Automa joseph 2284-8) message] The system which generated this result transmit joseph reference range : >=7.00. The reference range was not used to interpret this result as normal/abnormal . MADDIE (test code = MADDIE) Auto Top Mechanic ID - AAHAMID Lab Interpretation Normal (test code = 57784-2) [facility] CenterFERRITIN2021-01-07 12:56:00 Test Item Value Reference Range Interpretation Comments FERRITIN (BEAKER) (test code = 71.00 ng/mL 5.00-275.00 361) Auto Top Mechanic ID - SNONYIDFOLATE, [id number] 12:56:00 Test Item Value Reference Range Interpretation Comments FOLATE (BEAKER) (test code = 362) 12.30 ng/mL >=7.00 Auto Top Mechanic ID - SONNYIDAnti-Nuclear Antibody (LUCAS)2020-10-23 10:30:00 Test Item Value Reference Range Interpretation Comments LUCAS (test code = 62016-2) Negative Negative MADDIE (test code = MADDIE) Test performed by IFA method.Test performed by IFA method. Lab Interpretation (test Normal code = 34048-5) [facility] CenterANTI-NUCLEAR ANTIBODY (LUCAS)2020-10-23 10:30:00 Test Item Value Reference Range Interpretation Comments ANTI-NUCLEAR ANTIBODY (LUCAS) (BEAKER) Negative Negative (test code = 418) Test performed by IFA method.Test performed by IFA method.Hepatitis panel, acute 2020-10-23 10:06:00 Test Item Value Reference Range Interpretation Comments Hep A IgM (test code = Nonreactive Nonreactive 61019-7) Hep B C IgM (test code = Nonreactive Nonreactive 95950-6) Hepatitis C Ab (test Reactive Nonreactive A code = 91868-2) HBsAg Screen (test code Nonreactive Nonreactive = 5195-3) MADDIE (test code = MADDIE) Auto Top Mechanic ID - [place] M Lab Interpretation (test Abnormal code = 53863-3) [facility] CenterHEPATITIS PANEL, [id number] 10:06:00 Test Item Value Reference Range Interpretation Comments HEPATITIS A IGM ANTIBODY (BEAKER) Nonreactive Nonreactive (test code = 498) HEPATITIS B CORE IGM ANTIBODY Nonreactive Nonreactive (BEAKER) (test code = 645) HEPATITIS C ANTIBODY (BEAKER) Reactive Nonreactive A (test code = 367) HEPATITIS B SURFACE ANTIGEN (2) Nonreactive Nonreactive (BEAKER) (test code = 2585) Auto Top Mechanic ID - [place] MVitamin [id number] 09:44:00 Test Item Value Reference Range Interpretation Comments Vitamin B12 (test code = 1494 pg/mL 213-816 H 2132-9) MADDIE (test code = MADDIE) Auto Top Mechanic ID - [place] M Lab Interpretation (test Abnormal code = 59442-2) [facility] CenterVITAMIN [id number] 09:44:00 Test Item Value Reference Range Interpretation Comments VITAMIN B12 (BEAKER) (test code = 1494 pg/mL 213-816 H 774) Auto Top Mechanic ID - [place] MALPHA FETOPROTEIN (AFP), TUMOR [id number] 08:27:00 Test Item Value Reference Range Interpretation Comments ALPHA-FETOPROTEIN (BEAKER) (test code < ng/mL <10.0 = 1094) Auto Top Mechanic ID - [place] MHepatitis A antibody, [id number] 07:42:00 Test Item Value Reference Range Interpretation Comments Hep A IgG (test code = Reactive Nonreactive A 54616-7) MADDIE (test code = MADDIE) Auto Top Mechanic ID - [place] M Lab Interpretation (test Abnormal code = 50443-4) [facility] CenterHEPATITIS A ANTIBODY, [id number] 07:42:00 Test Item Value Reference Range Interpretation Comments HEPATITIS A IGG ANTIBODY (BEAKER) Reactive Nonreactive A (test code = 2797) Auto Top Mechanic ID - [place] MCOMPREHENSIVE METABOLIC [id number] 07:41:00 Test Item Value Reference Range Interpretation [...] S NOT APPLICABLE FOR DIALYSIS PATIEN TS. Auto Top Mechanic ID - [place] MSpecimen slightly [id number] 07:11:00 Test Item Value Reference Range Interpretation Comments MAGNESIUM (BEAKER) (test code = 1.8 mg/dL 1.6-2.6 627) Auto Top Mechanic ID - [place] MHepatitis B core antibody, [id number] 07:01:00 Test Item Value Reference Range Interpretation Comments Hep B Core Total Ab Nonreactive Nonreactive (test code = 77084-2) MADDIE (test code = MADDIE) Auto Top Mechanic ID - [place] M Lab Interpretation (test Normal code = 62098-6) [facility] CenterHEPATITIS B CORE ANTIBODY, [id number] 07:01:00 Test Item Value Reference Range Interpretation Comments HEPATITIS B CORE TOTAL ANTIBODY Nonreactive Nonreactive (BEAKER) (test code = 497) Auto Top Mechanic ID - [place] Rosa M, TIBC, % sat. (without ferritin)2020-10-23 06:37:00 Test Item Value Reference Range Interpretation Comments Iron (test code = 2498-4) 129.0 ug/dL 40-160 TIBC (test code = 2500-7) 178 ug/dL 250-450 L Iron % Saturation (test 72 % 20-55 H code = 2502-3) MADDIE (test code = MADDIE) Auto Top Mechanic ID - [place] M Lab Interpretation (test Abnormal code = 61919-7) [facility] CenterIRON, TIBC, % SAT. (WITHOUT FERRITIN)2020-10-23 06:37:00 Test Item Value Reference Range Interpretation Comments IRON (BEAKER) (test code = 547) 129.0 ug/dL 40.0-160.0 TOTAL IRON BINDING CAPACITY 178 ug/dL 250-450 L (BEAKER) (test code = 769) IRON % SATURATION (2) (BEAKER) 72 % 20-55 H (test code = 2590) Auto Top Mechanic ID - [place] [id number] 06:36:00 Test Item Value Reference Range Interpretation Comments A-1 Antitrypsin (test code 102.40 mg/dL 90-200 = 1825-9) MADDIE (test code = MADDIE) Auto Top Mechanic ID - [place] M Lab Interpretation (test Normal code = 35173-1) [id number]-[id number] 06:36:00 Test Item Value Reference Range Interpretation Comments ALPHA-1 ANTITRYPSIN (BEAKER) 102.40 mg/dL 90.00-200.00 (test code = 502) Auto Top Mechanic ID - [place] MPROTHROMBIN TIME/[id number] 06:21:00 Test Item Value Reference Range Interpretation [...] is2.5-3.5 for patients wiht mechanical heart valves.Reticulocyte [id number] 05:50:00 Test Item Value Reference Range Interpretation Comments % Retic (test code = 4.6 % 0.5-1.7 H 92917-2) MADDIE (test code = MADDIE) Auto Top Mechanic ID - 6000 Lab Interpretation (test Abnormal code = 27889-6) [facility] CenterRETICULOCYTE [id number] 05:50:00 Test Item Value Reference Range Interpretation Comments RETICULOCYTE COUNT PCT (BEAKER) (test 4.6 % 0.5-1.7 H code = 575) Auto Top Mechanic ID - 6000Hemoglobin and [id number] 05:49:00 Test Item Value Reference Range Interpretation Comments Hemoglobin (test code = 9.0 See_Comment L [Au tomated message] 786-4) The system mobicanvas generated this result transmitted ref erence range: 11.2 - 1 5.7 GM/DL. The refe rence range was not u sed to interpret this result as normal/abnor mal. Hematocrit (test code = 30.0 % 34.1-44.9 L 4544-3) Lab Interpretation (test Abnormal code = 61648-0) [facility] W/PLT COUNT & AUTO [id number] 05:49:00 Test Item Value Reference Range Interpretation [...] (BEAKER) (test code = 2801) HEMOGLOBIN AND [id number] 05:49:00 Test Item Value Reference Range Interpretation Comments HEMOGLOBIN (BEAKER) (test code = 9.0 GM/DL 11.2-15.7 L 410) HEMATOCRIT (BEAKER) (test code = 30.0 % 34.1-44.9 L 411) U/S, ABDOMINAL, WITH [id number] 21:58:00Reason for exam:->ascites, [facility] : 1970 Sex: [...] Verified Date/Time: 10/22/2020 21:58:54 US abdominal with [id number] 21:58:00Interface, External Ris In - 10/23/2020 2:18 [...] Mila Garcia MDReport Verified Date/Time: 10/22/2020 21:58:54 [facility]2020-10-22 20:15:00 Test Item Value Reference Range Interpretation Comments SARS-COV2/RT-PCR Negative Not Detected, (test code = Negative, See 06743-7) external report for linked test SARS-COV-2 [facility] PERFORMING LAB (test code = 26999-0) MADDIE (test code = Negative result for [...] of the Act. Fact Sheet for Healthcare Providers:https://www.[employer]/sites/default/f christina/product/documents/F act_Sheet_HC_Providers_L cus_VKHJ-TgE-0.pdf Fact Sheet for Healthcare Patients:https://www.[employer].com/sites/default/fi les/product/documents/Fa ct_Sheet_Patients_Lyra_S ARS-CoV-2.pdf Performing Laboratory:[facility], [place] [address] [place], [place] [address]ARS-COV2/RT-PCR ([facility])2020-10-22 20:15:00 Test Item Value Reference Range Interpretation Comments SARS-COV2/RT-PCR (test Negative Not Detected, Negative, code = 1828840) See external report for linked test SARS-COV-2 PERFORMING LAB [facility] (test code = 9965672) Negative result for this test determines that [...] 564(g) of the Act.Fact Sheet for Healthcare Providers:https://www.[employer]/sites/default/files/product/documents/Fact_Shee m_UW_Gemjpiuct_Rywd_BCIO-BpQ-6.pdfFact Sheet for Healthcare Patients:https://www.[employer].com/sites/default/files/product/ documents/Ickf_Trsgg_Akueczyb_Jfdk_XWMB-EfW-0.pdfPerforming Laboratory:[facility], [place] [address]BLLRYQDCNY W/ REFLEX URINE [id number] 17:46:00 Test Item Value Reference Range Interpretation [...] = 516) SOURCE(BEAKER) (test code = 2795) Auto Top Mechanic ID - techRAD, CHEST, 1 VIEW, NON [id number] 15:35:00Reason for exam:->abd painShould this be performed at the bedside?->Yes [facility] : 1970 Sex: FFINAL REPORT CHEST AP PORTABLE History provided: Abdominal pain Heart size magnified by projection. Lungs grossly clear and vascularity normal. Signed: Huang Garcia MDReport Verified Date/Time: 10/22/2020 15:35:51 Reading Location: [facility] Radiology Reading Room XR chest 1 view portable / [id number] 15:35:00Interface, External Ris In - 10/22/2020 3:38 PM CSTFINAL REPORT CHEST AP PORTABLE History provided: Abdominal pain Heart size magnified by projection. Lungs grossly clear and vascularity normal. Signed: Huang Garcia MDReport Verified Date/Time: 10/22/2020 15:35:51 Reading Location: [facility] Radiology Reading Room [facility] (not available at [facility])2020-10-22 14:52:00 Test Item Value Reference Range Interpretation Comments Troponin I (test code = 0.01 ng/mL 0-0.03 67912-8) MADDIE (test code = MADDIE) Troponin I [...] ADMIN Lab Interpretation (test Normal code = 05576-4) [facility] CenterTRFORMERLY [facility] [id number] 14:52:00 Test Item Value Reference Range Interpretation [...] failure, acidosis, acute neurological disease, and persistent tachyarrhythmia.Auto Top Mechanic ID - ADMINBASIC METABOLIC PANEL 2020-10-22 14:48:00 [...] S NOT APPLICABLE FOR DIALYSIS PATIEN TS. Auto Top Mechanic ID - ADMINSpecimen slightly ictericHEPATIC FUNCTION [id number] 14:48:00 Test Item Value Reference Range Interpretation [...] code = 61 U/L 6-55 H 347) Auto Top Mechanic ID - ADMINSpecimen slightly ictericCBC W/PLT COUNT & AUTO [id number] 14:28:00 Test Item Value Reference Range Interpretation [...]
[2021-05-10] MEDS ORDERED: PROMETHAZINE INJ 25 MG/ML AMP ONE (03:54)
[2021-05-10] MEDS ORDERED: ACETAMINOPHEN 325 MG TABLET ONE (03:54)
[2021-05-10] MEDS ORDERED: MORPHINE 4 MG/ML SYR ONE (03:55)
[2021-05-10] MEDS ORDERED: NA CHLORIDE 0.9% 2,000 ML ONE (03:55)
[2021-05-10] MEDS ORDERED: MORPHINE 2 MG/ML SYR ONE (05:23)
[2021-05-10 05:42] LABS: Absolute Lymphocytes (CBC) 0.4 K/uL (0.7-4.9); Basophils % 0.1 % (0-1.3); Hematocrit 23.7 % (36.0-45.0); Lymphocytes % 10.3 % (15.3-44.8); MPV 8.6 fL (7.6-11.3); RBC Red Blood Cell Count 2.65 M/uL (3.86-4.86)
[2021-05-10 05:53] LABS: Protime INR 2.37
[2021-05-10 06:29] LABS: ALT/SGPT 23 U/L (12-78); AST/SGOT 52 U/L (15-37); Albumin 1.4 g/dL (3.4-5.0); Alkaline Phosphatase 67 U/L (45-117); Amylase 20 U/L (25-115); BUN Blood Urea Nitrogen 24 mg/dL (7-18); Bicarbonate 23 mmol/L (21-32); Bilirubin Direct 2.5 mg/dL (0-0.2); Bilirubin Total 4.4 mg/dL (0.2-1.0); CKMB Creatine Kinase MB 1.6 ng/mL (1.0-3.6); Creatine Phosphokinase 118 U/L (26-192); Lipase 13 U/L (73-393); Potassium 3.4 mmol/L (3.5-5.1); Protein, Total 4.4 g/dL (6.4-8.2); Sodium Level 141 mmol/L (136-145); Troponin (Emerg Dept Use Only) < 0.02 ng/mL (0.0-0.045)
[2021-05-10 06:31] LABS: Glucose Level 42 mg/dL (74-106)
[2021-05-10] MEDS ORDERED: D5 0.9 NS 1,000 ML IV ONE (07:01)
[2021-05-10] MEDS ORDERED: D50W 50 ML IV ONE (07:01)
--- NOTE | 2021-05-10 07:31 | RAD REPORT ---
EXAM DESCRIPTION: CT - Abdomen Pelvis Wo Contrast - 05/10/2021 7:09 am CLINICAL HISTORY: ABD PAIN COMPARISON: Abdomen Pelvis Wo Contrast dated 03/23/2021; Abdomen Pelvis W Contrast dated 11/22/2020; Abdomen Pelvis W Contrast dated 11/04/2020 TECHNIQUE: Axial [address] imaging of the abdomen and pelvis was performed without IV contrast. No IV contrast was given because of allergy, abnormal renal function, patient refusal or physician re quest. No oral contrast. All CT scans are performed using dose optimization technique as appropriate and may include automated exposure control or mA/KV adjustment according to patient size. FINDINGS: Small right pleural effusion is present similar to March 23 imaging. Trace left pleural effu smooth. Heart size is stable. No pericardial effusion. Prominent anasarca pattern remains in the subcutaneous fatty tissues matching prior imaging. No absce ss, air or other focal abnormality the subcutaneous tissues. Advanced cirrhotic liver changes are again noted. No focal lesion identified on a noncontrast examina tion. Cholecystectomy clips are present. No biliary tree dilatation. Stable splenomegaly noted. No pa ncreatic abnormality seen though the pancreatic tissues it difficult to fully visualize due to being isodense to adjacent bowel. No hydronephrosis or suspicious renal mass. No obstructing or nonobstructing calculi. No significant adrenal finding. Isodense renal masses and pyelonephritis cannot be excluded in the absence of IV con trast. The urinary bladder is without significant finding. No new uterine finding. Ovaries are isoden se to adjacent structures. There is suggestion of a 4 centimeter left ovarian or paraovarian cyst. Th is is isodense to the ascites. If real, this structure is not clearly different from prior studies ba to October. No gastric dilatation or gross wall thickening seen. No dilation of the large or small bowel. Moderat e stool volume seen in the colon. Enteritis is certainly possible would easily be obscured in this se tting. Bowel wall thickening from electrolyte imbalance could be present an obscured by the isodense structures. No free air or pneumatosis. No new mass, hernia or bulky lymphadenopathy. Prominent degenerative change at the L4-5 disc level. Lower lumbar degenerative changes are present. No acute bone finding suspected. IMPRESSION: No bowel obstruction, free air or surgically emergent finding. Advanced liver cirrhosis, moderate volume ascites and pronounced subcutaneous anasarca are similar to prior imaging. Enteritis and bowel wall edema from electrolyte imbalance could easily be present and obscured due to isodense nature of the anatomic structures. Nonacute findings detailed in the body of the report.
--- NOTE | 2021-05-10 07:42 | RAD REPORT ---
EXAM DESCRIPTION: RAD - Chest Single View - 05/10/2021 4:28 am CLINICAL HISTORY: FEVER COMPARISON: Chest Single View dated 05/06/2021; Chest Single View dated 04/16/2021; Chest Single View d ated 03/25/2021; Chest Single View dated 03/24/2021; Abdomen Pelvis Wo Contrast dated 05/10/2021 FINDINGS: Airspace disease medially within the right lower lung with decreased lung volumes. Pulmona ry vascular congestion. Cardiomegaly.No acute osseous abnormality. No significant pleural effusions o r pneumothorax. IMPRESSION: Pleural effusions, right greater than left better demonstrated on the same-day CT of the abdomen pelvis. There is underlying atelectasis as a result. No focal consolidative process to sugge st a superimposed pneumonia.
[2021-05-10] MEDS ORDERED: METRONIDAZOLE 500mg IVPB 500 MG/100 ML BAG IV ONE ×2 (08:03→17:51)
[2021-05-10] MEDS ORDERED: LORazepam 2 MG/ML VIAL ONE ×2 (08:03→09:06)
[2021-05-10] MEDS ORDERED: Levofloxacin500mg IV 500 MG/100 ML BAG IV ONE (08:17)
--- NOTE | 2021-05-10 08:54 | ER ---
Nurse's Notes [facility] Name: Lorena Hansen Age: 51 yrs Sex: Female : 1970 Arrival Date: 05/10/2021 Time: 01:08 Bed 2 Private MD: Diagnosis: Acute kidney failure, unspecified;Severe sepsis without septic shock;Acute cystitis;Abdominal pain, Generalized-CLD and asietis Presentation: 05/10 01:40 Chief complaint: Patient states: "I'm having a lot of pain like where my liver is"; lp1 significant other reports she has had pain and swelling to legs, severe pain to legs today. Coronavirus screen: Client denies travel out of the [place] in the last 14 days. At this time, the client does not indicate any symptoms associated with coronavirus-19. Ebola Screen: No symptoms or risks identified at this time. Risk Assessment: Do you want to hurt yourself or someone else? Patient reports no desire to harm self or others. Onset of symptoms was May 10, 2021. 01:40 Method Of Arrival: Wheelchair lp1 01:40 Acuity: SUDHA 3 lp1 01:46 Initial Sepsis Screen: Does the patient meet any 2 criteria? Temp <36.0*C (96.8*F)) or lp1 > 38.3*C (100.9*F). Does the patient have a suspected source of infection? No. Patient's initial sepsis screen is negative. 22:07 Compressions began. 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 - Social history:: Smoking status: Patient denies any tobacco usage or history of. Screenin:50 Abuse screen: Denies threats or abuse. Denies injuries from another. Nutritional bs2 screening: No deficits noted. Tuberculosis screening: No symptoms or risk factors identified. Fall Risk IV access (20 points). Assessment: 02:50 General: Appears uncomfortable, obese, Behavior is calm, fussy. Pain: Complains of pain bs2 in pelvis, right leg and left leg Pain currently is 10 out of 10 on a pain scale. Neuro: Level of Consciousness is confused, lethargic, Oriented to person, place, situation. GI: Bowel sounds present X 4 quads. Abdomen is tender to palpation X 4 quads. Hepatomegaly noted Reports upper abdominal pain, bloating, nausea, abdomen appears distended. Derm: Skin is jaundiced. 06:30 General: lab called with critical glucose, provider to put in orders for amp of D5. bs2 07:00 Reassessment: RECD REPORT FROM THELMA RN. 51YO WF P/W AMS AND CIRRHOSIS R EJ AD R FA bp PIV IN PLACE. PT REMAINS NON-VERBAL AND ALTERED. 23:00 Reassessment: Decision made by provider for pt intubation Dr Parra, Nomran Rodriguez BOBBIN LOOSE END FINDER, bb Thelma RN, Madelaine RN, Anmol RT, and merry RN at bedside. Pt's BGL low 2 amps of Dextrose given see MAR awaiting pt response prior to intubation. 23:15 Reassessment: No change in pt condition order for intubation resumed Dr Parra at bb bedside with Norman Rodriguez NP, Thelma RN, Madelaine RN, Marty RT, Anmol RT and merry RN. 23:17 Reassessment: Intubation successful with [address] Parra using 7.5 ETT, 22 cm at bb the lips with color change and bilateral breath sounds, Xray ordered for placement. 05/11 22:15 CPR assessment: intubated, Ambu ventilation, cyanotic. ea Vital Signs: 05/10 01:46 BP 108 / 68; Pulse 112; Resp 20; Temp 101.8(O); Pulse Ox 99% on R/A; Weight 68.04 kg lp1 (R); Pain 10/10; 03:45 BP 118 / 74; Pulse 109; Resp 20; Pulse Ox 100% ; bs2 04:15 BP 106 / 69; Pulse 110; Resp 20; Pulse Ox 100% on R/A; bs2 05:00 BP 111 / 67; Pulse 118; Resp 20; Temp 98.8(O); Pulse Ox 100% on R/A; bs2 05:30 BP 102 / 65; Pulse 115; Resp 20; Pulse Ox 100% on R/A; bs2 06:00 BP 98 / 69; Pulse 116; Resp 20; Pulse Ox 100% on R/A; bs2 06:30 BP 92 / 65; Pulse 116; Resp 21; Pulse Ox 100% ; bs2 07:00 BP 100 / 70; Pulse 118; Resp 17; Pulse Ox 100% ; bp 07:30 BP 110 / 74; Pulse 115; Resp 18; Pulse Ox 100% ; bp 08:30 BP 100 / 68; Pulse 73; Resp 20; Pulse Ox 91% ; bp 09:30 BP 117 / 84; Pulse 113; Resp 19; Pulse Ox 91% on 15% Non-rebreather mask; bp 23:00 BP 134 / 73; Pulse 147; Resp 24; Pulse Ox 100% on BiPAP; bb 23:15 BP 162 / 84; Pulse 151; Resp 29 S; Pulse Ox 100% on BiPAP; bb ED Course: 01:08 Patient arrived in ED. bp1 01:42 Triage completed. lp1 01:42 Arm band placed on right wrist. lp1 02:06 Parth Parra MD is Attending Physician. mh7 02:50 Patient has correct armband on for positive identification. Placed in gown. Bed in low bs2 position. Call light in reach. Side rails up X2. court recording monitor on. Pulse ox on. NIBP on. Door closed. Lights dimmed. Warm blanket given. 03:15 Inserted saline lock: 20 gauge in right forearm, using aseptic technique. bs2 04:28 Chest Single View XRAY In Process Unspecified. EDMS 04:47 Sophia Gaspar, DAYNA is Primary Nurse. lp1 05:17 AMMONIA Sent. lp1 05:17 Ammonia Sent. lp1 05:30 Inserted saline lock: 18 gauge in right EJ, using aseptic technique. Blood collected. bs2 05:45 Ptt, Activated Sent. bs2 05:45 Troponin (emerg Dept Use Only) Sent. bs2 05:45 Protime (+inr) Sent. bs2 05:45 Procalcitonin Sent. bs2 05:45 Lipase Sent. bs2 05:45 Lactate Sent. bs2 05:45 LFT's Sent. bs2 05:45 Ckmb Sent. bs2 05:46 CPK Sent. bs2 05:46 CBC with Diff Sent. bs2 05:46 Blood Culture Adult (2) Sent. bs2 05:46 Basic Metabolic Panel Sent. bs2 05:46 Amylase, Serum Sent. bs2 05:46 Amylase Sent. bs2 05:46 Basic Metabolic Panel Sent. bs2 05:46 CKMB Creatine Kinase MB Sent. bs2 05:46 Creatine Phosphokinase Sent. bs2 05:46 CBC with Automated Diff Sent. bs2 05:46 Blood Culture Sent. bs2 05:46 Liver (Hepatic) Function Sent. bs2 05:46 Protime (+INR) Sent. bs2 05:46 Procalcitonin Sent. bs2 05:46 Lipase Sent. bs2 05:46 Lactate Sent. bs2 05:46 Ammonia Sent. bs2 06:17 Notified ED physician of a critical lab result(s). Lactate 6.1. lp1 07:09 Abdomen In Process Unspecified. EDMS 07:14 Primary Nurse role handed off by Sophia Gaspar, DAYNA bp 07:14 Jameson Cowan, RN is Primary Nurse. bp 08:30 initiated a transfer with Ronald Campbell Rn from the [facility] Transfer [facility]. eb 08:35 Per Ronald Campbell Rn [facility] will have to decline the patient in transfer due to all eb facilities being at capacity for icu beds. 08:54 Bhavesh Pineda DO is Hospitalizing Provider. ma2 08:58 Henry cath inserted, using sterile technique, 16 Fr., by dc, balloon inflated, to 3 gravity drainage, urine specimen collected. returned carlos urine. Patient tolerated well. 09:10 Urine Microscopic Only Sent. dh3 09:10 Urine Culture Sent. dh3 19:49 No provider procedures requiring assistance completed. Patient admitted, IV remains in bp place. 20:51 CORONAVIRUS Sent. bs2 20:51 COVID-19 : Document "Date of Symptom Onset" if Symptomatic. Sent. bs2 23:10 Repeat lab(s) drawn. by ED staff, sent to lab. Inserted saline lock: 22 gauge in left bb forearm, using aseptic technique. Blood collected. 23:15 Assisted provider with intubation using 7.5 mm ETT via oral route. ET tube secured at bb 22cm at the lips. Set up intubation tray. Intubated by Parth Parra MD Placement verified by CO2 detector w/ + color change, auscultating bilateral breath sounds, CXR, Patient tolerated well. 05/11 00:37 Primary Nurse role handed off by Jameson Cowan, DAYNA tt3 12:01 Ken Ferrera, DAYNA is Primary Nurse. ll1 22:37 Police called Tae Akbar to have an officer present and call the [employer] service delivery consultant. mw2 Administered Medications: 05/10 03:20 Drug: NS 0.9% (30 ml/kg) 30 ml/kg Route: IV; Rate: bolus; Site: right antecubital; lp1 10:40 Follow up: IV Status: Completed infusion; IV Intake: 2000ml bp 03:20 Drug: morphine 2 mg Route: IVP; Site: right antecubital; lp1 05:42 Follow up: Response: No adverse reaction bs2 03:20 Drug: Phenergan (promethazine) 12.5 mg Route: IVP; Site: right antecubital; lp1 05:42 Follow up: Response: No adverse reaction bs2 06:45 Drug: D50W 50 ml Route: IVP; Site: right jugular; bs2 07:47 Follow up: Response: Blood sugar is elevated bp 06:45 Drug: D5-NS 1000 ml Route: IV; Rate: per protocol; Site: right jugular; bs2 09:13 Follow up: IV Status: Completed infusion; IV Intake: 1000ml bp 07:45 Drug: Ativan (LORazepam) 1 mg Route: IVP; Site: right jugular; bp 09:11 Follow up: Response: Anxiety decreased bp 07:46 Drug: Flagyl (metroNIDAZOLE) 500 mg Volume: 100 ml; Route: IVPB; Rate: 200 ml/hr; bp Infused Over: 30 mins; Site: right jugular; 09:12 Follow up: IV Status: Completed infusion; IV Intake: 100ml bp 08:15 Drug: LevaQUIN (levofloxacin) 500 mg Volume: 100 ml; Route: IVPB; Infused Over: 60 bp mins; Site: right jugular; 09:12 Follow up: IV Status: Completed infusion; IV Intake: 100ml bp 09:11 Drug: Ativan (LORazepam) 1 mg Route: IVP; Site: right jugular; bp 09:13 Follow up: Response: No adverse reaction; Anxiety decreased bp 09:15 Drug: Lactulose 30 grams Volume: 45 ml; Route: PO; bp 11:53 Follow up: Response: No adverse reaction bp 10:15 Drug: vancoMYCIN 1 grams Route: IVPB; Infused Over: 2 hrs; Site: right jugular; bp 15:18 Follow up: IV Status: Completed infusion; IV Intake: 250ml bp 20:50 Not Given (Patient Refused): Acetaminophen 650 mg PO once bs2 23:02 Drug: D50W 50 ml Route: IVP; Site: right jugular; bb 23:05 Drug: D50W 50 ml Route: IVP; Site: right jugular; bb 23:16 Drug: Succinylcholine 120 mg Route: IVP; Site: right jugular; bb 23:16 Drug: Etomidate 20 mg Route: IVP; Site: right jugular; bb 05/11 22:09 Drug: EPINEPHrine 0.1mg/mL 1:10,000 1 mg Route: IVP; Site: right antecubital; em 22:10 Drug: Sodium Bicarbonate 1 amp Route: IVP; Site: right antecubital; em 22:12 Drug: D50W 50 ml Route: IVP; Site: right antecubital; em 22:12 Drug: D50W 50 ml Route: IVP; Site: right antecubital; em 22:13 Drug: Calcium Chloride 10% 10 ml Route: IVP; Site: right antecubital; em 22:14 Drug: EPINEPHrine 0.1mg/mL 1:10,000 1 mg Route: IVP; Site: right antecubital; em Intake: 05/10 09:12 IV: 100ml; Total: 100ml. bp 09:12 IV: 100ml; Total: 200ml. bp 09:13 IV: 1000ml; Total: 1200ml. bp 10:40 IV: 2000ml; Total: 3200ml. bp 15:18 IV: 250ml; Total: 3450ml. bp Outcome: 08:54 Decision to Hospitalize by Provider. ma2 19:49 Admitted to ER Hold. Please see [facility] for further documentation. bp 19:49 critical 05/12 02:42 Patient left the ED. ea Signatures: Dispatcher [employer] EDMS Gonzalo Bower RN Vivi Noble RN RN bb Sophia Gaspar RN RN lp1 Kyleigh Marquez 3 Alicia Stevenson RN RN ea Peltier, Brian RN RN Edin Broderick MD MD ut2 Jade [facility] Ariana Bird Lynsay, RN RN ll1 Kayley Palomo Maurice, MD MD 7 Elena, Antonio tt3 Thelma Caro RN RN bs2 Corrections: (The following items were deleted from the chart) 05/10 05:19 05:17 morphine 2 mg IVP in right antecubital lp1 lp1 07:50 07:00 Reassessment: bp bp 05/11 22:39 22:37 Police mw2 mw2 05/12 02:12 05/10 22:07 Compressions began ea ea
--- NOTE | 2021-05-10 08:55 | EDPHYS ---
Physician Documentation [facility] Name: Lorena Hansen Age: 51 yrs Sex: Female : 1970 Arrival Date: 05/10/2021 Time: 01:08 Bed 2 Private MD: ED Physician Parth Parra HPI: 05/10 02:20 This 51 yrs old Female presents to ER via Wheelchair with complaints of mh7 Abdominal Pain, Leg Pain. 02:20 The patient presents with abdominal pain in the lower abdomen. mh7 02:20 Onset: The symptoms/episode began/occurred yesterday. The symptoms do not radiate. mh7 02:20 Associated signs and symptoms: Pertinent positives: fever, Bilateral leg swelling, mh7 Pertinent negatives: nausea, vomiting, and diarrhea, nausea and vomiting, anorexia, blood in stools, chest pain, constipation, diarrhea, dysuria, headache, hematuria, nausea, palpitations, shortness of breath, vaginal discharge, vomiting, vomiting blood. 02:20 The symptoms are described as intermittent, vague, waxing/waning. Modifying factors: mh7 The symptoms are alleviated by nothing, the symptoms are aggravated by movement, touching the area. Severity of pain: At its worst the pain was moderate yesterday, in the emergency department the pain is unchanged. 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 - Social history:: Smoking status: Patient denies any tobacco usage or history of. ROS: 02:20 Eyes: Negative for injury, pain, redness, and discharge, ENT: Negative for injury, mh7 pain, and discharge, Neck: Negative for injury, pain, and swelling, Cardiovascular: Negative for chest pain, palpitations, and edema, Respiratory: Negative for shortness of breath, cough, wheezing, and pleuritic chest pain, Back: Negative for injury and pain, : Negative for injury, bleeding, discharge, and swelling, Skin: Negative for injury, rash, and discoloration, Neuro: Negative for headache, weakness, numbness, tingling, and seizure, Psych: Negative for depression, anxiety, suicide ideation, homicidal ideation, and hallucinations, Allergy/Immunology: Negative for hives, rash, and allergies, Endocrine: Negative for neck swelling, polydipsia, polyuria, polyphagia, and marked weight changes, Hematologic/Lymphatic: Negative for swollen nodes, abnormal bleeding, and unusual bruising. Exam: 02:20 Constitutional: This is a well developed, well nourished patient who is awake, alert, mh7 and in no acute distress. Head/Face: Normocephalic, atraumatic. Eyes: Pupils equal round and reactive to light, extra-ocular motions intact. Lids and lashes normal. Conjunctiva and sclera are non-icteric and not injected. Cornea within normal limits. Periorbital areas with no swelling, redness, or edema. Neck: Trachea midline, no thyromegaly or masses palpated, and no cervical lymphadenopathy. Supple, full range of motion without nuchal rigidity, or vertebral point tenderness. No Meningismus. Chest/axilla: Normal chest wall appearance and motion. Nontender with no deformity. No lesions are appreciated. 02:20 Respiratory: Lungs have equal breath sounds bilaterally, clear to auscultation and percussion. No rales, rhonchi or wheezes noted. No increased work of breathing, no retractions or nasal flaring. 02:20 Back: No spinal tenderness. No costovertebral tenderness. Full range of motion. Skin: Warm, dry with normal turgor. Normal color with no rashes, no lesions, and no evidence of cellulitis. Neuro: Awake and alert, GCS 15, oriented to person, place, time, and situation. Cranial nerves II-XII grossly intact. Motor strength 5/5 in all extremities. Sensory grossly intact. Cerebellar exam normal. Normal gait. Psych: Awake, alert, with orientation to person, place and time. Behavior, mood, and affect are within normal limits. 02:20 Cardiovascular: Rate: tachycardic, Rhythm: regular, Pulses: no pulse deficits are appreciated, Heart sounds: normal, normal S1and S2, Edema: is not appreciated, JVD: is not appreciated. 02:20 Abdomen/GI: Inspection: distension, that is mild, Bowel sounds: normal, in all quadrants, Palpation: moderate abdominal tenderness, in the suprapubic area and right lower quadrant, mass, is not appreciated, rebound tenderness, is not appreciated, voluntary guarding, is not appreciated, involuntary guarding, is not appreciated, Rectal exam: the exam is deferred, because of patient request, Indicators: McBurney's point is not tender, Andrew's sign is negative, Rovsing's sign is negative, Obturator sign is negative, Psoas sign is negative, Liver: is enlarged, Hernia: not appreciated. 02:20 Musculoskeletal/extremity: Extremities: noted in the right leg and left leg: swelling, Pedal edema, ROM: intact in all extremities, Circulation is intact in all extremities. Sensation intact. Joints: All joints appear normal with full range of motion. Calves: are non-tender, have equal circumference. Vital Signs: 01:46 BP 108 / 68; Pulse 112; Resp 20; Temp 101.8(O); Pulse Ox 99% on R/A; Weight 68.04 kg lp1 (R); Pain 10/10; 03:45 BP 118 / 74; Pulse 109; Resp 20; Pulse Ox 100% ; bs2 04:15 BP 106 / 69; Pulse 110; Resp 20; Pulse Ox 100% on R/A; bs2 05:00 BP 111 / 67; Pulse 118; Resp 20; Temp 98.8(O); Pulse Ox 100% on R/A; bs2 05:30 BP 102 / 65; Pulse 115; Resp 20; Pulse Ox 100% on R/A; bs2 06:00 BP 98 / 69; Pulse 116; Resp 20; Pulse Ox 100% on R/A; bs2 06:30 BP 92 / 65; Pulse 116; Resp 21; Pulse Ox 100% ; bs2 07:00 BP 100 / 70; Pulse 118; Resp 17; Pulse Ox 100% ; bp 07:30 BP 110 / 74; Pulse 115; Resp 18; Pulse Ox 100% ; bp 08:30 BP 100 / 68; Pulse 73; Resp 20; Pulse Ox 91% ; bp 09:30 BP 117 / 84; Pulse 113; Resp 19; Pulse Ox 91% on 15% Non-rebreather mask; bp 23:00 BP 134 / 73; Pulse 147; Resp 24; Pulse Ox 100% on BiPAP; bb 23:15 BP 162 / 84; Pulse 151; Resp 29 S; Pulse Ox 100% on BiPAP; bb MDM: 07:03 Transition of care: After a detail discussion of the patient's case, care is 7 transferred to Edin Bolden MD. 08:51 Differential diagnosis: cholecystitis, Cholelithiasis, diverticulitis, gastritis. Data wv2 reviewed: vital signs, nurses notes. Counseling: I had a detailed discussion with the patient and/or guardian regarding: the historical points, exam findings, and any diagnostic results supporting the discharge/admit diagnosis, the presence of at least one elevated blood pressure reading (>120/80) during this emergency department visit, the need for further work-up and treatment in the hospital. Response to treatment: the patient's symptoms have markedly improved after treatment. 08:54 Patient medically screened. wv2 05/10 02:35 Order name: Amylase, Serum [facility] 05/10 02:35 Order name: Basic Metabolic Panel [facility] 05/10 02:35 Order name: Blood Culture Adult (2) [facility] 05/10 02:35 Order name: CBC with Diff [facility] 05/10 02:35 Order name: CPK [facility] 05/10 02:35 Order name: Ckmb [facility] 05/10 02:35 Order name: LFT's [facility] 05/10 02:35 Order name: Lactate [facility] 05/10 02:35 Order name: Lipase [facility] 05/10 02:35 Order name: Procalcitonin [facility] 05/10 02:35 Order name: Protime (+inr) [facility] 05/10 02:35 Order name: Ptt, Activated; Complete Time: 06:02 [facility] 05/10 02:35 Order name: Troponin (emerg Dept Use Only); Complete Time: 07:10 [facility] 05/10 02:35 Order name: Urine Culture [facility] 05/10 02:35 Order name: Urine Microscopic Only; Complete Time: 19:12 [facility] 05/10 02:35 Order name: Amylase; Complete Time: 07:10 EDCT 05/10 02:35 Order name: Basic Metabolic Panel; Complete Time: 07:10 [facility] 05/10 02:35 Order name: Blood Culture [facility] 05/10 02:35 Order name: CBC with Automated Diff; Complete Time: 19:12 [facility] 05/10 02:35 Order name: Creatine Phosphokinase; Complete Time: 07:10 EDMS 05/10 02:35 Order name: CKMB Creatine Kinase MB; Complete Time: 07:10 EDMS 05/10 02:35 Order name: Liver (Hepatic) Function; Complete Time: 07:10 EDMS 05/10 02:35 Order name: Lactate; Complete Time: 07:10 EDMS 05/10 02:35 Order name: Lipase; Complete Time: 07:10 EDMS 05/10 02:35 Order name: Procalcitonin; Complete Time: 07:48 EDMS 05/10 02:35 Order name: Protime (+INR); Complete Time: 06:02 EDMS 05/10 03:37 Order name: AMMONIA mh7 05/10 03:37 Order name: Ammonia; Complete Time: 07:10 EDMS 05/10 05:47 Order name: Manual Differential; Complete Time: 19:12 EDMS 05/10 07:47 Order name: Glucose, Ancillary Testing; Complete Time: 07:50 EDMS 05/10 09:49 Order name: Lactate Sepsis 2 HR Follow-up; Complete Time: 19:12 EDMS 05/10 12:21 Order name: Urine Dipstick-Ancillary; Complete Time: 19:12 EDMS 05/10 13:26 Order name: Lactate; Complete Time: 19:12 EDMS 05/10 15:17 Order name: COVID-19 : Document "Date of Symptom Onset" if Symptomatic. bp 05/10 15:35 Order name: CORONAVIRUS EDMS 05/10 16:36 Order name: SARS-COV-2 RT PCR; Complete Time: 19:12 EDMS 05/10 17:19 Order name: Lactate Sepsis 2 HR Follow-up; Complete Time: 19:12 EDMS 05/10 23:22 Order name: Glucose, Ancillary Testing EDMS 05/11 00:18 Order name: ABG Arterial Blood Gas EDMS 05/11 00:20 Order name: CBC with Automated Diff EDMS 05/11 00:26 Order name: Glucose, Ancillary Testing EDMS 05/11 00:28 Order name: Comprehensive Metabolic Panel EDMS 05/11 00:28 Order name: Magnesium EDMS 05/11 00:28 Order name: Glucose, Ancillary Testing EDMS 05/11 01:05 Order name: CBC Smear Scan EDMS 05/11 01:24 Order name: Glucose, Ancillary Testing EDMS 05/11 01:49 Order name: Ammonia EDMS 05/11 02:07 Order name: ABO/RH typing EDMS 05/11 02:07 Order name: Antibody Screen EDMS 05/11 02:12 Order name: Glucose, Ancillary Testing EDMS 05/11 03:22 Order name: Glucose, Ancillary Testing EDMS 05/11 04:26 Order name: Glucose, Ancillary Testing EDMS 05/11 05:19 Order name: Glucose, Ancillary Testing EDMS 05/11 05:44 Order name: ABG Arterial Blood Gas EDMS 05/11 06:18 Order name: CBC with Automated Diff EDMS 05/11 06:26 Order name: Lactate EDMS 05/11 06:39 Order name: Protime (+INR) EDMS 05/11 06:39 Order name: PTT, Activated Partial Thromb EDMS 05/11 06:41 Order name: Glucose, Ancillary Testing EDMS 05/11 06:44 Order name: Comprehensive Metabolic Panel EDMS 05/11 06:44 Order name: T4 Free EDMS 05/11 06:44 Order name: Magnesium EDMS 05/10 02:35 Order name: Chest Single View XRAY; Complete Time: 07:48 mh7 05/10 07:08 Order name: Abdomen ; Complete Time: 07:48 EDMS 05/10 23:25 Order name: CXR XRAY tt3 05/11 06:44 Order name: Thyroid Stimulating Hormone EDMS 05/11 07:14 Order name: Blood Culture EDMS 05/11 07:38 Order name: Glucose, Ancillary Testing EDMS 05/11 08:42 Order name: RAD EDMS 05/11 08:43 Order name: Glucose, Ancillary Testing EDMS 05/11 09:04 Order name: RAD EDMS 05/11 09:54 Order name: RAD EDMS 05/11 10:07 Order name: Procalcitonin EDMS 05/11 10:18 Order name: Glucose, Ancillary Testing EDMS 05/11 11:03 Order name: CBC with Automated Diff EDMS 05/11 11:13 Order name: Lactate EDMS 05/11 11:14 Order name: Comprehensive Metabolic Panel EDMS 05/11 11:14 Order name: Phosphorus EDMS 05/11 11:14 Order name: NT PRO-BNP EDMS 05/11 11:14 Order name: Magnesium EDMS 05/11 11:29 Order name: Glucose, Ancillary Testing EDMS 05/11 12:45 Order name: Gram Stain--Aerobic Bottle [facility] 05/11 12:45 Order name: Gram Stain--Anaerobic Bottle [facility] 05/11 12:49 Order name: Gram Stain--Aerobic Bottle [facility] 05/11 12:49 Order name: Gram Stain--Anaerobic Bottle [facility] 05/11 12:49 Order name: Glucose, Ancillary Testing [facility] 05/11 12:51 Order name: Manual Differential [facility] 05/11 12:51 Order name: Gram Stain--Aerobic Bottle [facility] 05/11 12:51 Order name: Gram Stain--Anaerobic Bottle [facility] 05/11 12:53 Order name: Gram Stain--Aerobic Bottle [facility] 05/11 13:16 Order name: Glucose, Ancillary Testing [facility] 05/11 14:03 Order name: Glucose, Ancillary Testing [facility] 05/11 14:12 Order name: Glucose Level [facility] 05/11 14:26 Order name: Lactate Sepsis 2 HR Follow-up [facility] 05/11 14:39 Order name: Manual Differential [facility] 05/11 14:48 Order name: Platelet Count [facility] 05/11 15:23 Order name: Glucose, Ancillary Testing [facility] 05/11 17:26 Order name: Glucose, Ancillary Testing [facility] 05/11 18:43 Order name: Glucose, Ancillary Testing [facility] 05/11 19:41 Order name: Glucose, Ancillary Testing [facility] 05/11 21:11 Order name: Glucose, Ancillary Testing [facility] 05/11 22:23 Order name: Glucose, Ancillary Testing [facility] 05/11 22:40 Order name: Glucose, Ancillary Testing [facility] 05/11 23:03 Order name: Glucose, Ancillary Testing [facility] 05/12 00:44 Order name: CORONAVIRUS [facility] 05/10 02:35 Order name: Accucheck; Complete Time: 07:47 mh7 05/10 02:35 Order name: Cardiac monitoring; Complete Time: 05:45 05/10 02:35 Order name: EKG - Nurse/Tech; Complete Time: 05:45 05/10 02:35 Order name: IV Saline Lock - Large Bore; Complete Time: 05:45 mh7 05/10 02:35 Order name: Labs collected and sent; Complete Time: 05:45 mh7 05/10 02:35 Order name: O2 Per Protocol; Complete Time: 05:45 05/10 02:35 Order name: O2 Sat Monitoring; Complete Time: 05:45 [facility] 05/10 02:35 Order name: Urine Dipstick-Ancillary (obtain specimen); Complete Time: 09: [facility] Administered Medications: 03:20 Drug: NS 0.9% (30 ml/kg) 30 ml/kg Route: IV; Rate: bolus; Site: right antecubital; lp1 10:40 Follow up: IV Status: Completed infusion; IV Intake: 2000ml bp 03:20 Drug: morphine 2 mg Route: IVP; Site: right antecubital; lp1 05:42 Follow up: Response: No adverse reaction bs2 03:20 Drug: Phenergan (promethazine) 12.5 mg Route: IVP; Site: right antecubital; lp1 05:42 Follow up: Response: No adverse reaction bs2 06:45 Drug: D50W 50 ml Route: IVP; Site: right jugular; bs2 07:47 Follow up: Response: Blood sugar is elevated bp 06:45 Drug: D5-NS 1000 ml Route: IV; Rate: per protocol; Site: right jugular; bs2 09:13 Follow up: IV Status: Completed infusion; IV Intake: 1000ml bp 07:45 Drug: Ativan (LORazepam) 1 mg Route: IVP; Site: right jugular; bp 09:11 Follow up: Response: Anxiety decreased bp 07:46 Drug: Flagyl (metroNIDAZOLE) 500 mg Volume: 100 ml; Route: IVPB; Rate: 200 ml/hr; bp Infused Over: 30 mins; Site: right jugular; 09:12 Follow up: IV Status: Completed infusion; IV Intake: 100ml bp 08:15 Drug: LevaQUIN (levofloxacin) 500 mg Volume: 100 ml; Route: IVPB; Infused Over: 60 bp mins; Site: right jugular; 09:12 Follow up: IV Status: Completed infusion; IV Intake: 100ml bp 09:11 Drug: Ativan (LORazepam) 1 mg Route: IVP; Site: right jugular; bp 09:13 Follow up: Response: No adverse reaction; Anxiety decreased bp 09:15 Drug: Lactulose 30 grams Volume: 45 ml; Route: PO; bp 11:53 Follow up: Response: No adverse reaction bp 10:15 Drug: vancoMYCIN 1 grams Route: IVPB; Infused Over: 2 hrs; Site: right jugular; bp 15:18 Follow up: IV Status: Completed infusion; IV Intake: 250ml bp 20:50 Not Given (Patient Refused): Acetaminophen 650 mg PO once bs2 23:02 Drug: D50W 50 ml Route: IVP; Site: right jugular; bb 23:05 Drug: D50W 50 ml Route: IVP; Site: right jugular; bb 23:16 Drug: Succinylcholine 120 mg Route: IVP; Site: right jugular; bb 23:16 Drug: Etomidate 20 mg Route: IVP; Site: right jugular; bb 05/11 22:09 Drug: EPINEPHrine 0.1mg/mL 1:10,000 1 mg Route: IVP; Site: right antecubital; em 22:10 Drug: Sodium Bicarbonate 1 amp Route: IVP; Site: right antecubital; em 22:12 Drug: D50W 50 ml Route: IVP; Site: right antecubital; em 22:12 Drug: D50W 50 ml Route: IVP; Site: right antecubital; em 22:13 Drug: Calcium Chloride 10% 10 ml Route: IVP; Site: right antecubital; em 22:14 Drug: EPINEPHrine 0.1mg/mL 1:10,000 1 mg Route: IVP; Site: right antecubital; em Disposition Summary: 05/10/21 08:54 Hospitalization Ordered Hospitalization Status: Inpatient Admission ma2 Provider: Bhavesh Pineda Condition: Guarded ma2 Problem: new ma2 Symptoms: are unchanged ma2 Bed/Room Type: Standard wv2 Location: [facility] ER HOLD(05/10/21 13:16) Room Assignment: ERHOLD-(05/10/21 13:16) iw Diagnosis - Acute kidney failure, unspecified ma2 - Severe sepsis without septic shock ma2 - Acute cystitis ma2 - Abdominal pain, Generalized - CLD and asietis ma2 Forms: - Medication Reconciliation Form ma2 - SBAR form ma2 Signatures: Dispatcher [employer] Gonzalo Mayo RN RN em Vivi Hedrick RN RN bb Princess Shepard RN RN iw Sophia Gaspar RN RN lp1 Jameson Cowan RN RN bp Edin Bolden MD MD ma2 Parth Parra MD MD 7 Karol Caro, RN RN bs2 Corrections: (The following items were deleted from the chart) 05/10 07:08 02:37 Abdomen Pelvis W Con+CT.RAD.BRZ ordered. EDMS EDMS : 08:54 Intensive Care Unit [facility] 13: 08:54 [facility] 13: 13:16 [email or web address]
[2021-05-10 09:57] LABS: Anisocytosis 1+; Blood Morphology Comment NOTED (NOT SEEN); Dohle Bodies PRESENT; Platelet Estimate DECR; Polychromasia 1+
--- NOTE | 2021-05-10 10:08 | P.HP ---
Certification for Inpatient Patient admitted to: Inpatient With expected LOS: >2 Midnights Patient will require the following post-hospital care: None Practitioner: I am a practitioner with admitting privileges, knowledge of patient current condition, hospital course, and medical plan of care. Services: Services provided to patient in accordance with Admission requirements found in Title 42 Section 412.3 of the Code of Federal Regulations Patient History Date of Service: 05/10/21 Primary Care Provider: None Reason for admission: Abdominal pain, mild confusion History of Present Illness: Most of the information came from the significant other and ER physician 51-year-old female with history of advanced chronic cirrhosis, GERD with hiatal hernia/gastric varices, anemia of chronic disease, and multiple admissions for hepatic encephalopathy. Patient presented with abdominal pain. Patient recently hospitalized for hepatic encephalopathy. Significant other reports patient had abdominal pain last night. This persisted. No significant nausea or vomiting noted. He also reports that the patient had difficulty urinating. He has noted increasing edema to the lower extremities and abdomen. She has reported pain to the lower extremities as well. He reports that the patient had a mild fever. He reports patient is taking her medications but still not able to afford Xifaxan. In the ER patient was evaluated. Vital signs stable. Lab shows white count 3.8, hemoglobin 7.8 with a platelet count of 52. Sodium 141, potassium 3.4. BUN of 24, creatinine 1.74 with a GFR of 31. Glucose initially 42 now up to 148. Lactic acid abnormal at 6.1. Procalcitonin elevated at 10.8. Calcium 6.9. Ammonia level 43. INR elevated at 2.37. Total bilirubin 4.4, direct bilirubin 2.5. AST 52. Troponin unremarkable. CT scan shows bilateral pleural effusions, prominent ascites, advanced liver cirrhosis, moderate subcutaneous anasarca. Enteritis and bowel wall edema noted. Chest x-ray showed pleural effusions right greater than left. Underlying atelectasis also identified. Patient was given 1 L bolus in the emergency room. Antibiotics initiated included Levaquin, Flagyl and vancomycin. I was asked to evaluate patient. After my evaluation it was determined that the patient required ICU level care. We did not have any available beds. Transfer for higher level of care initiated. No beds available at other facilities. Patient will remain in the ER for ICU care. Allergies ondansetron [From Zofran] Allergy (Verified 06/14/20 21:06) Anaphylaxis Penicillins Allergy (Verified 04/16/21 11:08) Anaphylaxis Home medications list reviewed: Yes Home Medications: Furosemide [Lasix*] 40 mg PO BID #60 tab 02/20/21 Lactulose [Cephulac*] 45 ml PO TID #4000 ml 03/28/21 Pantoprazole [Protonix Tab*] 40 mg PO Q12H #60 tab 03/28/21 Spironolactone [Aldactone*] 50 mg PO DAILY #60 tab 04/17/21 - Past Medical/Surgical History Diabetic: No -: Advanced liver cirrhosis -: History of GERD with ulcer -: Diastolic CHF -: History of Esophageal varices -: Methamphetamine abuse -: Noncompliance with medication -: Recurrent admissions for hepatic encephalopathy -: Endoscopy -: GB Sx Psychosocial/ Personal History: Patient lives out of hotels. - Family History Mother -: Cancer Father -: Heart disease - Social History Smoking Status: Unknown if ever smoked Alcohol use: No CD- Drugs: No Caffeine use: No Place of Residence: [facility] Review of Systems is unable to be obtained Physical Examination - Studies Laboratory Data (last 24 hrs) 05/10/21 05:10: PT 27.5 H, INR 2.37, APTT 37.0 H 05/10/21 05:10: WBC 3.80 L, Hgb 7.8 L, Hct 23.7 L, Plt Count 52 L D 05/10/21 05:10: Sodium 141, Potassium 3.4 L, BUN 24 H, Creatinine 1.74 H D, Glucose 42 L*, Total Bilirubin 4.4 H, AST 52 H, ALT 23, Alkaline Phosphatase 67, Amylase 20 L, Lipase 13 L Assessment and Plan - Plan CT scan: COMPARISON: Abdomen Pelvis Wo Contrast dated 03/23/2021; Abdomen Pelvis W Contrast dated 11/22/2020; Abdomen Pelvis W Contrast dated 11/04/2020 TECHNIQUE: Axial [address] imaging of the abdomen and pelvis was performed without IV contrast. No IV contrast was given because of allergy, abnormal renal function, patient refusal or physician request. No oral contrast. All CT scans are performed using dose optimization technique as appropriate and may include automated exposure control or mA/KV adjustment according to patient size. FINDINGS: Small right pleural effusion is present similar to March 23 imaging. Trace left pleural effusion. Heart size is stable. No pericardial effusion. Prominent anasarca pattern remains in the subcutaneous fatty tissues matching prior imaging. No abscess, air or other focal abnormality the subcutaneous tissues. Advanced cirrhotic liver changes are again noted. No focal lesion identified on a noncontrast examination. Cholecystectomy clips are present. No biliary tree dilatation. Stable splenomegaly noted. No pancreatic abnormality seen though the pancreatic tissues it difficult to fully visualize due to being isodense to adjacent bowel. No hydronephrosis or suspicious renal mass. No obstructing or nonobstructing calculi. No significant adrenal finding. Isodense renal masses and pyelonephritis cannot be excluded in the absence of IV contrast. The urinary bladder is without significant finding. No new uterine finding. Ovaries are isodense to adjacent structures. There is suggestion of a 4 centimeter left ovarian or paraovarian cyst. This is isodense to the ascites. If real, this structure is not clearly different from prior studies back to October. No gastric dilatation or gross wall thickening seen. No dilation of the large or small bowel. Moderate stool volume seen in the colon. Enteritis is certainly possible would easily be obscured in this setting. Bowel wall thickening from electrolyte imbalance could be present an obscured by the isodense structures. No free air or pneumatosis. No new mass, hernia or bulky lymphadenopathy. Prominent degenerative change at the L4-5 disc level. Lower lumbar degenerative changes are present. No acute bone finding suspected. IMPRESSION: No bowel obstruction, free air or surgically emergent finding. Advanced liver cirrhosis, moderate volume ascites and pronounced subcutaneous anasarca are similar to prior imaging. Enteritis and bowel wall edema from electrolyte imbalance could easily be present and obscured due to isodense nature of the anatomic structures. Nonacute findings detailed in the body of the report. Chest x-ray: COMPARISON: Chest Single View dated 05/06/2021; Chest Single View dated 04/16/2021; Chest Single View dated 03/25/2021; Chest Single View dated 03/24/2021; Abdomen Pelvis Wo Contrast dated 05/10/2021 FINDINGS: Airspace disease medially within the right lower lung with decreased lung volumes. Pulmonary vascular congestion. Cardiomegaly.No acute osseous abnormality. No significant pleural effusions or pneumothorax. IMPRESSION: Pleural effusions, right greater than left better demonstrated on the same-day CT of the abdomen pelvis. There is underlying atelectasis as a result. No focal consolidative process to suggest a superimposed pneumonia. Physical Exam: GENERAL: Patient appeared confused but able to move appropriately. Patient reported pain to the lower extremities and abdomen. VITAL SIGNS: Reviewed HEENT: Dry mucous membranes noted. Head appears atraumatic. NECK: Supple. No carotid bruits. No lymphadenopathy or thyromegaly. LUNGS: Crackles to the bases noted. Patient to be placed on nasal cannula. HEART: Regular rate and rhythm, no appreciable gallops, rubs, murmurs or extra heart sounds ABDOMEN: Significant ascites noted. Pain with palpation to the abdomen. EXTREMITIES: Difficult anasarca noted. 1-2+ edema to the lower extremities and to the abdomen. NEUROLOGIC: Patient appears confused but alert. SKIN: Normal color, turgor and temperature. No ulcerations or rashes noted. Impression: Abdominal pain secondary to suspected spontaneous bacterial peritonitis with sepsis without septic shock or severe sepsis complicated with possible underlying pneumonia and UTI Acute renal failure Bilateral pleural effusions Anasarca with chronic advanced cirrhosis COPD Anemia of chronic disease GERD with hiatal hernia with history of gastric varices History of noncompliance with follow-up and medication Plan: Abdominal pain secondary to suspected spontaneous bacterial peritonitis with sepsis without septic shock or severe sepsis complicated with possible underlying pneumonia and UTI: Patient will be admitted to ICU for close monitoring and treatment. Transfer had been initiated in the ER. No beds available. Will continue with care here. Patient has received 1 L of fluids. Sepsis is suspected. Likely spontaneous bacterial peritonitis. Await evaluation for possible underlying UTI and pneumonia. Patient has been started on IV Levaquin, Flagyl and vancomycin. We will continue with IV tabetic treatment. Due to her severe anasarca, advanced ascites and chronic cirrhosis patient will not get fluid bolus30 mg/kg. This may compromise her even more. At this time will monitor lactic acid and procalcitonin. Will continue with IV fluids at 50 cc/h. Will also provide Lasix. Once more alert will continue with her Aldactone. Blood pressure stable at this time. We will continue to mo nitor closely. Will reassess later. Blood, urine cultures obtained. Will have radiology assisted paracentesis to evaluate for SBP. This will be done likely tomorrow. Will send for cultures and lab. Patient will need to get albumin 25% solution 10 g per every liter. We will try to remove less than [address] Chun for critical care management. Will also consult nephrology to address acute renal failure. GI should be available tomorrow if so we will consult GI. I will turn to service over to the hospitalist team tomorrow. I will go plan of care with them. Acute renal failure: Continue with IV fluids at this time. Will monitor renal function. Await recommendations from nephrology. Bilateral pleural effusions: Maintain oxygen saturations above 93%. Will monitor closely. Patient will get IV fluids due to underlying sepsis but will continue with Lasix. Anasarca with chronic advanced cirrhosis: Continue lactulose. Continue with above plan of care. Patient will have paracentesis. Await recommendations by GI if available for tomorrow. COPD: We will provide medication. Maintain oxygen above 90%. Pulmonology consulted. Anemia of chronic disease: We will monitor hemoglobin closely. Maintain hemoglobin above 7.0. May require transfusion if hemoglobin less than 7.0. Will provide thiamine and folic acid. GERD with hiatal hernia with history of gastric varices: Continue Protonix twice daily. Will monitor closely. History of noncompliance with follow-up and medication: We will check urine drug screen. Code Status: Full Code DVT prophylaxis: SCD Advanced Care Planning-30 minutes: Significant other reports patient lives out of hotels. Discharge Plan: Home Plan to discharge in: Greater than 2 days - Advance Directives Does patient have a Living Will: No Does patient have a Durable POA for Healthcare: No Time Spent Managing Pts Care (In Minutes): 60
[2021-05-10] MEDS ORDERED: SODIUM CHLORIDE 0.9% 10ML INJ IV PRN (10:17)
[2021-05-10] MEDS: FOLIC ACID 1 MG in NA CHLORIDE 0.9% 50 ML IV SCH (10:17)
[2021-05-10] MEDS: PANTOPRAZOLE 40 MG INJ IVP SCH ×2 (10:17→21:30)
[2021-05-10] MEDS: FUROSEMIDE 20 MG/ 2ML VIAL IV SCH ×2 (10:17→17:00)
[2021-05-10] MEDS ORDERED: D5 0.45 NS 1,000 ML IV SCH (10:17)
[2021-05-10] MEDS ORDERED: ACETAMINOPHEN 500 MG TAB PO PRN (10:17)
[2021-05-10] MEDS ORDERED: NA CHLORIDE 0.9% 250 ML ONE ×2 (10:17→17:51)
[2021-05-10] MEDS ORDERED: ALBUTEROL 2.5 MG/3 ML NEB SOL NEB PRN (10:17)
[2021-05-10] MEDS ORDERED: LACTULOSE 20 GM/30 ML UCUP ONE (10:17)
[2021-05-10] MEDS: METRONIDAZOLE 500mg IVPB 500 MG/100 ML BAG IV SCH ×2 (10:17→17:00)
[2021-05-10] MEDS ORDERED: IPRATROPIUM BROM 0.5MG/2.5ML NEB PRN (10:17)
[2021-05-10] MEDS: Rifaximin 550 MG Tab PO SCH ×2 (10:17→20:59)
[2021-05-10] MEDS ORDERED: VANCOMYCIN 1 GM/VIAL ONE ×2 (10:17→17:51)
[2021-05-10] MEDS: LACTULOSE 20 GM/30 ML UCUP PO SCH ×3 (10:17→20:58)
[2021-05-10] MEDS ORDERED: VANCOMYCIN 1 GM in NA CHLORIDE 0.9% 500 ML IVPB SCH (10:17)
[2021-05-10] MEDS ORDERED: THIAMINE 200 MG/2 ML INJ IVP SCH (10:17)
[2021-05-10 10:21] LABS: Urine Bacteria 20-50 /HPF (<20); Urine Urothelial Cells <5 /HPF (NONE SEEN)
[2021-05-10] MEDS ORDERED: LORazepam 2 MG/ML VIAL IV PRN (10:22)
[2021-05-10] MEDS ORDERED: HYDROCODONE/APAP 5/325 MG TAB ONE (10:55)
[2021-05-10] MEDS ORDERED: PANTOPRAZOLE 40 MG INJ ONE ×2 (11:44→22:43)
[2021-05-10] MEDS ORDERED: THIAMINE 200 MG/2 ML INJ ONE (11:44)
[2021-05-10] MEDS ORDERED: NA CHLORIDE 0.9% 100 ML ONE (11:44)
[2021-05-10] MEDS ORDERED: FUROSEMIDE 20 MG/ 2ML VIAL ONE ×2 (11:44→17:51)
[2021-05-10] MEDS ORDERED: FOLIC ACID 5 MG/ML VIAL ONE (11:45)
[2021-05-10] MEDS ORDERED: D5 0.45 NS 1,000 ML IV ONE (11:45)
[2021-05-10 12:21] LABS: Urine Blood Trace-lysed (Negative); Urine Glucose Negative (Negative); Urine Protein 1+ (Negative); Urine Specific Gravity 1.025 (1.005-1.030)
[2021-05-10] MEDS ORDERED: ALBUMIN HUM 5% 500 ML IV SCH (13:00)
[2021-05-10] MEDS ORDERED: VANCOMYCIN/NS 1 gm 1 GM/250 ML BAG IV ONE (15:15)
--- NOTE | 2021-05-10 17:00 | P.INFCA ---
Sepsis Focused Assessment - Focused Assessment Complete? Sepsis Focused Assessment Completed?: Yes - Sepsis Screen Result Severe Sepsis: Negative Septic Shock: Negative - Evaluation Current stage of sepsis: Ruled out Reason for ruling out sepsis: Patient with suspected sepsis. Await culture results to rule out entirely. - Vital Signs Reviewed: Yes - Examination Date exam was performed: 05/10/21 Time exam was performed: 03:00 Heart: Regular rate/rhythm Lungs: Crackles Peripheral pulses: 2+ Slightly diminished Peripheral pulse location: Radial Capillary refill: >2 Seconds Skin examination: Other (Edema to multiple areas. Anasarca.)
[2021-05-10] MEDS ORDERED: NA CHLORIDE 0.9% 500 ML IV ONE (19:17)
[2021-05-10] MEDS ORDERED: HYDROCORTISONE SUC 100 MG INJ IV ONE (19:20)
[2021-05-10] MEDS ORDERED: ALBUMIN HUM 5% 500 ML IV ONE ×2 (19:25→20:18)
[2021-05-10] MEDS ORDERED: HYDROCORTISONE SUC 100 MG INJ ONE (19:52)
[2021-05-10] MEDS ORDERED: NA CHLORIDE 0.9% 500 ML ONE (19:52)
--- NOTE | 2021-05-10 19:54 | P.PN ---
Date of Service: 05/10/21 Patient noted to be tachycardic this evening with heart rate around 125, lactate has been increasing currently at 7.5. Patient with anasarca although mucous membranes are dry, probable intravascular depletion. Patient receiving albumin every 8 hours per nephrology, discussed case with hospitalist attending, will give patient 500 cc NS bolus, 25 g of 5% albumin now. Patient blood pressure also borderline with a MAP of between 60 and 65, case was discussed with general surgery for possible CVC insertion but this was declined as patient's INR is 2.3 and high risk for bleeding, recommendation for peripheral access/PICC line. Licensed Nursing Assistant was contacted regarding insertion of PICC line but patient also not candidate for PICC line given elevated INR. We will need to continue with peripheral access. Patient may require vasopressor therapy this evening, will discuss case with significant other as well. Guarded prognosis at this time. Continue ICU care.
--- NOTE | 2021-05-10 19:56 | CON ---
Date of Consultation: 05/10/2021 Reason For Consult: Acute renal failure. History Of Present Illness: Ms. Hansen is a 51-year-old female with past medical history significa nt for advanced alcoholic cirrhosis, GERD, hiatal hernia, gastric varices, recurrent episodes of asci yandy, anemia of chronic disease, and history of JAS with multiple admissions for hepatic encephalopath y, presented to [facility] complaining of abdominal pain. The patient is nelson y altered at this time and all the history is obtained from review of records. The patient was hospi talized recently for hepatic encephalopathy. She presented with abdominal pain and concern is she frey s peritonitis and she has been started on IV fluids and antibiotics and planned for a paracentesis as well. She has been having increasing lower extremity edema and pain in the lower extremities. She has been tachycardic in the emergency room with hypotension, anasarca with worsening lactic acidosis and worsening liver indices as well. CT scan showed bilateral pleural effusions, prominent ascites, advanced cirrhosis, and moderate subcutaneous anasarca, enteritis of the small bowel, and bowel wall edema was noted. Past Medical History: Significant for history of advanced alcoholic cirrhosis of the liver with almaz issa varices and multiple episodes of hepatic encephalopathy. She has history of substance abuse with methamphetamine and noncompliance and recurrent admissions. Social History: The patient lives out of hotels. Family History: Significant for cancer in her mother and heart disease in her father. Review of Systems: Unable to be obtained. Physical Examination: Vital signs: At this time are showing blood pressure 90/50, heart rate of 135, respiratory rate of 1 5. General: She is altered. HEENT: Atraumatic head. Lungs: Auscultation of lungs revealed diminished breath sounds at bilateral bases. Abdomen: Distended with ascites. Extremities: Showed anasarca. She is able to wake up to pain, but she is not able to verbalize anyt elijah at this time. Heart: Auscultation of the heart revealed tachycardia with regular rhythm. Laboratory Data: At this time are showing sodium of 141, potassium of 3.4, chloride of 107, bicarb o f 23, BUN of 24, creatinine of 1.74, which is significantly worse from 3 days ago. Her lactic acid w as 6.2, calcium of 6.9, the total bilirubin of 4.4, direct bilirubin of 2.5, albumin of 1.4, and proc alcitonin was 10.83. CBC is showing pancytopenia with WBC count of 3.8, hemoglobin of 7.8, hematocri t 23.7, and platelet count of 52. She also had bands on her peripheral smear with 23% bands. Urinal ysis showed positive nitrite and trace ketones. Current Medications: Have been reviewed in detail. Impression: 1.Acute renal failure, likely secondary to acute tubular necrosis versus hepatorenal syndrome type 1 . The patient is currently getting D5 half NS. I will change it to D5 NS and we will start her on s ome albumin to improve her perfusion from hypotension. She appears intravascularly depleted, even th ough she has anasarca because of ascites and liver cirrhosis. 2.Altered mental status secondary to hepatic encephalopathy. 3.Concern for bacterial peritonitis. Currently on vancomycin 1 g daily and plan for a paracentesis and send of ascitic fluid for culture. 4.Hypotension. We will discontinue the Lasix at this time and give her gentle hydration with albumi n and monitor her closely. Plan: Overall, the patient's condition is very guarded at this time. Her renal failure seems to be acute, possibly from hypotension and ATN, but it is likely that she could also have hepatorenal syndr ome. Hence, I will go ahead and discontinue the Lasix and start her on some albumin with changing IV fluid s to D5 NS and monitor her closely. VV/MODL Voice ID: [id number] Report ID: [id number]
[2021-05-10] MEDS: ARFORMOTEROL TARTRATE 15 MCG/2 ML VIAL.NEB NEB SCH (20:05)
[2021-05-10] MEDS ORDERED: ARFORMOTEROL TARTRATE 15 MCG/2 ML VIAL.NEB ONE (20:19)
[2021-05-10 21:26] VITALS: O2SAT 100
[2021-05-10] MEDS ORDERED: FENTANYL CITR 100 MCG/2 ML IV PRN (21:47)
[2021-05-10] MEDS ORDERED: FENTANYL CITR 100 MCG/2 ML ONE (21:58)
[2021-05-10] MEDS: FENTANYL CITR 100 MCG/2 ML IV PRN (22:00)
[2021-05-10] MEDS ORDERED: ACETAMINOPHEN 650MG/RECT SUPP PR ONE (22:24)
[2021-05-10] MEDS: Meropenem 1 GM/100 ML BAG IV SCH (22:30)
[2021-05-10] MEDS ORDERED: ADENOSINE 6 MG/ 2ML VIAL IV ONE (22:55)
[2021-05-10] MEDS ORDERED: RSI MEDICATION KIT IV ONE (23:17)
[2021-05-10] MEDS ORDERED: propofoL 1,000 MG/100 ML VIAL IV ONE (23:17)
[2021-05-10] MEDS ORDERED: HALOPERIDOL LACT 5 MG/ML INJ IV PRN (23:20)
[2021-05-10] MEDS ORDERED: NA CHLORIDE 0.9% 250 ML IV PRN (23:20)
[2021-05-10] MEDS ORDERED: propofoL 1,000 MG/100 ML VIAL IV PRN (23:20)
[2021-05-10] MEDS ORDERED: D50W 25 GM/50 ML SYRINGE IV ONE (23:26)
[2021-05-10] MEDS ORDERED: D5 0.9 NS 1,000 ML IV SCH (23:45)
[2021-05-10] MEDS: LORazepam 2 MG/ML VIAL IV PRN (23:58)
[2021-05-11] MEDS ORDERED: MIDAZOLAM HCL 2 MG/2 ML INJ ONE (00:07)
[2021-05-11] MEDS ORDERED: FENTANYL CITR 100 MCG/2 ML ONE ×4 (00:08→20:09)
[2021-05-11] MEDS ORDERED: LORazepam 2 MG/ML VIAL ONE ×2 (00:08→06:10)
[2021-05-11 00:12] LABS: Absolute Lymphocytes (CBC) 0.1 K/uL (0.7-4.9); Basophils % 0.1 % (0-1.3); Lymphocytes % 19.5 % (15.3-44.8); MPV 9.9 fL (7.6-11.3); RBC Red Blood Cell Count 2.14 M/uL (3.86-4.86)
[2021-05-11 00:16] LABS: Arterial Blood Carboxyhemoglob 1.8 % (0-1.5); Blood Gas Oxyhemoglobin 94.2 % (94-97); Blood O2 Saturation 96.9 % (92-98.5)
[2021-05-11 00:20] LABS: Hematocrit 19.7 % (36.0-45.0)
[2021-05-11 00:25] LABS: Albumin 1.8 g/dL (3.4-5.0); Bilirubin Total 4.7 mg/dL (0.2-1.0); Potassium 3.5 mmol/L (3.5-5.1); Protein, Total 3.7 g/dL (6.4-8.2)
[2021-05-11 00:28] LABS: Magnesium 1.1 mg/dL (1.8-2.4)
[2021-05-11] MEDS ORDERED: Magnesium Sulfate 2gm IVPB 2 G/50 ML BAG IV ONE ×3 (00:54→08:36)
[2021-05-11] MEDS ORDERED: HALOPERIDOL LACT 5 MG/ML INJ ONE (00:58)
[2021-05-11] MEDS ORDERED: ADENOSINE 6 MG/ 2ML VIAL IV ONE (01:00)
[2021-05-11] MEDS: ALBUMIN HUMAN 25% 100 ML IV SCH ×3 (01:00→16:51)
[2021-05-11] MEDS ORDERED: D50W 25 GM/50 ML SYRINGE IV ONE ×7 (01:00→22:26)
[2021-05-11] MEDS ORDERED: D50W 50 ML IV ONE ×3 (01:42→18:53)
[2021-05-11] MEDS ORDERED: ACETAMINOPHEN 500 MG TAB PO ONE (02:00)
[2021-05-11] MEDS: D50W 25 GM/50 ML SYRINGE IV PRN ×9 (02:10→21:58)
[2021-05-11] MEDS ORDERED: NA CHLORIDE 0.9% 250 ML ONE ×3 (02:52→22:23)
[2021-05-11] MEDS: FENTANYL CITR 100 MCG/2 ML IV PRN (03:00)
[2021-05-11] MEDS ORDERED: NA CHLORIDE 0.9% 1,000 ML ONE (03:06)
[2021-05-11] MEDS ORDERED: DEXTROSE IV ONE (03:06)
[2021-05-11] MEDS ORDERED: ACETAMINOPHEN 500 MG TAB ONE ×2 (03:06→03:16)
[2021-05-11] MEDS ORDERED: NA CHLORIDE 0.9% 100 ML ONE ×2 (05:38→09:53)
[2021-05-11] MEDS ORDERED: Meropenem 1000 MG/VIAL IV ONE ×3 (05:38→21:01)
[2021-05-11 05:41] LABS: Arterial Blood Carboxyhemoglob 1.5 % (0-1.5); Blood Gas Oxyhemoglobin 91.7 % (94-97); Blood O2 Saturation 94.1 % (92-98.5)
[2021-05-11] MEDS ORDERED: FENTANYL CITR 100 MCG/2 ML IV ONE (06:00)
[2021-05-11 06:02] LABS: Hematocrit 26.5 % (36.0-45.0); MPV 9.5 fL (7.6-11.3); RBC Red Blood Cell Count 2.84 M/uL (3.86-4.86)
[2021-05-11 06:10] LABS: Protime INR 3.7
[2021-05-11] MEDS: LORazepam 2 MG/ML VIAL IV PRN (06:10)
[2021-05-11 06:41] LABS: Albumin 1.5 g/dL (3.4-5.0); Bilirubin Total 4.4 mg/dL (0.2-1.0); Protein, Total 3.3 g/dL (6.4-8.2); Thyroid Stimulating Hormone 2.58 uIU/mL (0.360-3.740)
[2021-05-11 06:44] LABS: Magnesium 1.4 mg/dL (1.8-2.4)
[2021-05-11] MEDS ORDERED: HYDROCORTISONE SUC 100 MG INJ IV ONE ×2 (06:58→08:08)
[2021-05-11] MEDS: D5W 1,000 ML with NA BICARB 8.4% 150 MEQ IV SCH ×4 (07:00→16:52)
[2021-05-11] MEDS ORDERED: NOREPINEPHRINE 4mg/D5W 250mL 4 MG/250 ML BAG IV ONE (07:40)
[2021-05-11] MEDS: ARFORMOTEROL TARTRATE 15 MCG/2 ML VIAL.NEB NEB SCH ×2 (07:45→20:00)
[2021-05-11] MEDS ORDERED: ARFORMOTEROL TARTRATE 15 MCG/2 ML VIAL.NEB ONE ×2 (08:05→20:31)
[2021-05-11] MEDS: NOREPINEPHRINE 4 MG in D5W 250 ML IV PRN ×2 (08:11→14:28)
[2021-05-11] MEDS ORDERED: HYDROCORTISONE SUC 100 MG INJ ONE (08:36)
[2021-05-11] MEDS ORDERED: SUCCINYLCHOLINE 20 MG/ML (10 ML) IV ONE (08:41)
--- NOTE | 2021-05-11 08:41 | RAD REPORT ---
EXAM DESCRIPTION: RAD - Chest Single View - 05/10/2021 10:52 pm CLINICAL HISTORY: SOB, edema Chest pain. COMPARISON: Chest Single View dated 05/10/2021; Chest Single View dated 05/06/2021; Chest Single View dated 04/16/2021; Chest Single View dated 03/25/2021; Abdomen Pelvis Wo Contrast dated 05/10/2021 FINDINGS: Portable technique limits examination quality. Mild interstitial pulmonary edema is noted. Haziness in the medial left lung base probably represent superimposed infiltrate. The heart is mildly prominent. Small amount of pleural fluid bilaterally.
[2021-05-11] MEDS ORDERED: ETOMIDATE 20 MG/10 ML VIAL IV ONE (08:42)
[2021-05-11] MEDS: PANTOPRAZOLE 40 MG INJ IVP SCH ×2 (09:00→21:00)
[2021-05-11] MEDS ORDERED: TBO-FILGRASTIM 300 MCG/0.5 ML SYR SQ SCH (09:00)
[2021-05-11] MEDS: FOLIC ACID 1 MG in NA CHLORIDE 0.9% 50 ML IV SCH (09:00)
[2021-05-11] MEDS ORDERED: Levofloxacin 250mg IV 250 MG/50 ML BAG IV SCH (09:00)
--- NOTE | 2021-05-11 09:04 | RAD REPORT ---
EXAM DESCRIPTION: RAD - Chest Single View - 05/11/2021 6:24 am CLINICAL HISTORY: follow up pleural effusions Chest pain. COMPARISON: Chest Single View dated 05/10/2021; Chest Single View dated 05/10/2021; Chest Single View dated 05/10/2021; Chest Single View dated 05/06/2021 FINDINGS: Portable technique limits examination quality. Small bilateral pleural effusions and mild interstitial pulmonary edema again seen, unchanged. The he art is mildly enlarged in size. Tip of the endotracheal tube is at the level the superior aortic arch .Tip of the enteric tube is likely within the stomach but not visualized on this radiograph.
[2021-05-11] MEDS ORDERED: PANTOPRAZOLE 40 MG INJ ONE ×2 (09:18→21:01)
[2021-05-11] MEDS ORDERED: ALBUMIN HUMAN 25% 50 ML IV ONE ×3 (09:19→21:02)
[2021-05-11] MEDS ORDERED: LACTULOSE 20 GM/30 ML UCUP ONE ×2 (09:19→21:02)
[2021-05-11] MEDS ORDERED: FOLIC ACID 5 MG/ML VIAL ONE (09:19)
[2021-05-11] MEDS: LACTULOSE 20 GM/30 ML UCUP PO SCH ×2 (09:35→14:00)
[2021-05-11] MEDS: HYDROCORTISONE NA SUC 200 MG in NA CHLORIDE 0.9% 100 ML IV SCH ×2 (09:40→21:00)
--- NOTE | 2021-05-11 09:48 | P.CNS ---
Date of Consult: 05/11/21 (TV) Reason for Consult: shock Primary Care Provider: None Chief Complaint: septic shock History of Present Illness: Age 51 Aw septic referactory shock, Advanced C liver disease, multiple admissions in past, aW abdominal pain, LE edema, Allergies ondansetron [From Zofran] Allergy (Verified 06/14/20 21:06) Anaphylaxis Penicillins Allergy (Verified 04/16/21 11:08) Anaphylaxis Home Medications: Furosemide [Lasix*] 40 mg PO BID #60 tab 02/20/21 Lactulose [Cephulac*] 45 ml PO TID #4000 ml 03/28/21 Pantoprazole [Protonix Tab*] 40 mg PO Q12H #60 tab 03/28/21 Spironolactone [Aldactone*] 50 mg PO DAILY #60 tab 04/17/21 - Past Medical/Surgical History Diabetic: No -: Advanced liver cirrhosis -: History of GERD with ulcer -: Diastolic CHF -: History of Esophageal varices -: Methamphetamine abuse -: Noncompliance with medication -: Recurrent admissions for hepatic encephalopathy -: Endoscopy -: GB Sx Psychosocial/ Personal History: Patient lives out of hotels. - Family History Mother Medical History: Cancer Father Medical History: Heart disease - Social History Smoking Status: Current some day smoker Alcohol use: No CD- Drugs: No Caffeine use: No Place of Residence: [facility] Review of Systems is unable to be obtained Physical Examination Temp Pulse Resp BP Pulse Ox 98.0 F 124 H 24 H 65/41 L 100 05/11/21 08:00 05/11/21 07:00 05/11/21 08:00 05/11/21 08:00 05/11/21 08:00 General: Other (on mechvent) - Problems (1) Septic shock Current Visit: Yes Status: Acute Plan: Pt is 51 yrs of age AW refractory shock, ESLD, Renal failure, E abnormalities/ on vanc and merepenem// bicarb drip/ Add IV hydrocortisone/ pt on vent/CXRY clear ET satisfactory/ O2 satisfactory/on AC mode/ pancytopenic, prognosis very poor unlikley to survive to MOF/add epinepherine/DW hospitalist andnurse, FTime
[2021-05-11] MEDS ORDERED: EPINEPHrine 4 MG in NA CHLORIDE 0.9% 250 ML IV PRN (09:52)
--- NOTE | 2021-05-11 09:53 | RAD REPORT ---
EXAM DESCRIPTION: XR Chest Single View CLINICAL HISTORY: 51 years Female POST ETT TECHNIQUE: One view of the chest. COMPARISON: No prior exams provided for comparison. FINDINGS: Endotracheal tube terminates approximately 2 cm above the willis. Nasogastric tube termina yandy beyond the mid stomach. External pacing pads noted. External structures obscure the right hilum a nd right upper lung. Mild cardiomegaly with suspected pulmonary vascular prominence. No visualized pleural effusion or pne umothorax. No acute osseous lesion. IMPRESSION: Endotracheal tube terminates approximately 2 cm above the willis. Limited study. Mild cardiomegaly with suspected pulmonary vascular prominence. Electronically signed by: Sneha Mae MD 05/11/2021 12:00 AM CDT Due to temporary technical issues with the PACS/Fluency reporting system, reports are being signed by the in house radiologist without review as a courtesy to ensure prompt reporting. The interpreting r adiologist is fully responsible for the content of the report.
[2021-05-11] MEDS ORDERED: THIAMINE 200 MG/2 ML INJ IVP SCH (09:55)
[2021-05-11] MEDS: Meropenem 1 GM/100 ML BAG IV SCH (10:08)
[2021-05-11 10:19] LABS: Basophils % 0.2 % (0-1.3); Lymphocytes % 24.7 % (15.3-44.8)
[2021-05-11] MEDS ORDERED: THIAMINE 200 MG/2 ML INJ ONE (10:26)
[2021-05-11 10:54] LABS: Basophils % 0.4 % (0-1.3)
[2021-05-11 11:00] LABS: Hematocrit 28.9 % (36.0-45.0); Lymphocytes % 16.4 % (15.3-44.8); MPV 9.6 fL (7.6-11.3); RBC Red Blood Cell Count 3.06 M/uL (3.86-4.86)
[2021-05-11 11:11] LABS: Albumin 1.1 g/dL (3.4-5.0); Bilirubin Total 3.8 mg/dL (0.2-1.0); Magnesium 1.7 mg/dL (1.8-2.4); Phosphorus 4.4 mg/dL (2.5-4.9); Protein, Total 2.5 g/dL (6.4-8.2)
[2021-05-11 11:23] VITALS: BMI 10.6
--- NOTE | 2021-05-11 12:30 | P.PN ---
Date of Service: 05/11/21 Vital Signs Temp Pulse Resp BP Pulse Ox 99.0 F 112 H 26 H 75/50 L 100 05/11/21 12:00 05/11/21 12:00 05/11/21 12:00 05/11/21 12:00 05/11/21 12:00 Medications Acetaminophen (Acetaminophen 500 Mg Tab) 500 mg PO Q4HP PRN PRN Reason: TEMP > 101' F Albuterol Sulfate (Albuterol 2.5 Mg/3 Ml Neb Kat) 2.5 mg NEB [id number] PRN PRN Reason: SHORTNESS OF BREATH Arformoterol Tartrate (Arformoterol Tartrate 15 Mcg/2 Ml Vial.Neb) 15 mcg NEB BIDRESP GEMA Last Admin: 05/11/21 07:45 Dose: 15 mcg Documented by: Dextrose (D50w 25 Gm/50 Ml Syringe) 12.5 gm IV PRN PRN; Protocol PRN Reason: HYPOGLYCEMIA Last Admin: 05/11/21 09:38 Dose: 12.5 gm Documented by: Fentanyl Citrate (Fentanyl Citr 100 Mcg/2 Ml) 25 mcg IV Q4HP PRN PRN Reason: Pain scale 8-10 (Severe) Last Admin: 05/11/21 03:00 Dose: 25 mcg Documented by: Filgrastim (Tbo-Filgrastim 300 Mcg/0.5 Ml Syr) 300 mcg SQ DAILY GEMA Stop: 05/12/21 09:01 Last Admin: 05/11/21 08:22 Dose: 300 mcg Documented by: Haloperidol Lactate (Haloperidol Lact 5 Mg/Ml Inj) 2 mg IV Q4HP PRN PRN Reason: AGITATION Last Admin: 05/11/21 00:37 Dose: 2 mg Documented by: Folic Acid 1 mg/ Sodium (Chloride) 50.2 mls @ 200 mls/hr IV DAILY GEMA Last Admin: 05/11/21 09:00 Dose: 50.2 mls Documented by: Albumin Human (Albumin 25%) 100 mls @ 100 mls/hr IV Q8HR GEMA Last Admin: 05/11/21 09:00 Dose: 100 mls Documented by: Vancomycin HCl 1.25 gm/ Sodium (Chloride) 250 mls @ 150 mls/hr IVPB Q36H GEMA Meropenem (Merrem 1 Gm/100 Ml Ns Ivpb) 1 gm in 100 mls @ 200 mls/hr IV Q12H [facility] Last Admin: 05/11/21 10:08 Dose: 100 mls Documented by: Propofol (Diprivan) 1,000 mg in 100 mls @ 0 mls/hr IV PRN PRN; Protocol PRN Reason: SEDATION Last Admin: 05/10/21 23:35 Dose: 100 mls Documented by: Sodium Chloride (Sodium Chloride) 250 mls @ 999 mls/hr IV Q15M PRN PRN Reason: HYPOTENSION Sodium Bicarbonate 150 meq/ (Dextrose/Water) 1,150 mls @ 100 mls/hr IV .[id number] [facility] Last Admin: 05/11/21 07:00 Dose: 1,150 mls Documented by: Norepinephrine Bitartrate 4 mg (/ Dextrose) 254 mls @ 0 mls/hr IV PRN PRN; Prot ocol PRN Reason: Hemodynamic Parameters Last Admin: 05/11/21 08:11 Dose: 254 mls Documented by: Phenylephrine HCl 50 mg/ (Dextrose) 250 mls @ 0 mls/hr IV PRN PRN; Protocol PRN Reason: BP PARAMETERS Last Admin: 05/11/21 09:25 Dose: 250 mls Documented by: Hydrocortisone Sodium Succinate 200 mg/ Sodium Chloride 100 mls @ 200 mls/hr IV Q12HR [facility] Last Admin: 05/11/21 09:40 Dose: 100 mls Documented by: Epinephrine HCl 4 mg/ Sodium (Chloride) 254 mls @ 0 mls/hr IV PRN PRN; Protocol PRN Reason: HEMODYNAMIC PARAMETERS Ipratropium [place] (Ipratropium Brom 0.5mg/2.5ml) 0.5 mg NEB [id number] PRN PRN Reason: SHORTNESS OF BREATH Lactulose (Lactulose 20 Gm/30 Ml Ucup) 10 gm PO TID [facility] Last Admin: 05/11/21 09:35 Dose: 10 gm Documented by: Lorazepam (Lorazepam 2 Mg/Ml Vial) 2 mg IV Q2HP PRN PRN Reason: SEDATION Last Admin: 05/11/21 06:10 Dose: 2 mg Documented by: Pantoprazole Sodium (Pantoprazole 40 Mg Inj) 40 mg IVP Q12HR GEMA; Protocol Last Admin: 05/11/21 09:00 Dose: 40 mg Documented by: Sodium Chloride (Flush Normal Saline 10 Ml) 10 ml IV BID [facility] Last Admin: 05/11/21 08:22 Dose: 10 ml Documented by: Sodium Chloride (Sodium Chloride 0.9% 10ml Inj) 10 ml IV UD PRN PRN Reason: Diluant Thiamine HCl (Thiamine 200 Mg/2 Ml Inj) 200 mg IVP DAILY [facility] Last Admin: 05/11/21 09:55 Dose: 200 mg Documented by: Microbiology Results 05/10/21 05:25 Blood - Blood Aerobic Blood Culture - Preliminary No growth in 24 hours. 05/10/21 05:25 Blood - Blood Anaerobic Blood Culture - Preliminary No growth in 24 hours. 05/10/21 05:10 Blood - Blood Aerobic Blood Culture - Preliminary No growth in 24 hours. 05/10/21 05:10 Blood - Blood Anaerobic Blood Culture - Preliminary No growth in 24 hours. Assessment/ Plan: Nephrology Limited IH/ ROS due to AMS Seen and examined in the ER Vitals, medications, blood work and imaging reviewed in the chart. Sedated/ Unresponsive. Intubated. Neck supple. CTA. RRR. Soft Abd. No C/C. Anasarca. JAS due to hypotension Proteinuria -No NSAIDs Hypokalemia -Replete with IV potassium Acidosis -Continue bicarb gtt Hypocalcemia -Replete IV calcium Hypomagnesemia -Replete IV Mag Hypoglycemia Severe Malnlutrition -IV Albumin as needed for hypotension Pancytopenia -Transfuse PRBC as needed Septic shock -Continue Meropenem and Vancomycin -Continue pressor therapy -IV Albumin as ordered Acute respiratory failure sp intubation -Ventilatory support as ordered Toxic metabolic encephalopathy -Continue abx Case reviewed with Dr. Yates
[2021-05-11 12:50] LABS: Blood Morphology Comment NOTED (NOT SEEN); Platelet Estimate DECR; Polychromasia 3+; Toxic Granulation 1+
[2021-05-11 12:51] LABS: Dohle Bodies PRESENT
[2021-05-11] MEDS ORDERED: DOPAMINE/D5W 400 MG/250 ML BAG IV PRN (14:18)
[2021-05-11] MEDS ORDERED: DOPAMINE/D5W 400 MG/250 ML BAG IV ONE ×2 (14:20→18:21)
[2021-05-11 14:33] LABS: MPV 10.3 fL (7.6-11.3)
[2021-05-11 14:37] LABS: Anisocytosis 2+
[2021-05-11 14:38] LABS: Platelet Estimate DECR; Poikilocytosis 2+; Polychromasia 2+
[2021-05-11 14:44] LABS: Blood Morphology Comment NOTED (NOT SEEN)
[2021-05-11 14:51] LABS: Platelet Estimate DECR
[2021-05-11] MEDS ORDERED: KCL 20 MEQ/100 mL IVPB 20 MEQ/100 ML BAG IV SCH (16:00)
--- NOTE | 2021-05-11 17:07 | P.PN ---
Subjective Date of Service: 05/11/21 Chart is been reviewed. Patient is well known to me from multiple prior admissions for hepatic encephalopathy. She comes in this admission and she appears to have been in septic shock. This could be from urinary tract infection. She could develop spontaneous bacterial peritonitis as well. Unfortunately, she is doing very poorly. She remains on multiple vasopressors including Levophed, John-Synephrine, and dopamine. Spoke with patient's boyfriend, Bernardo, who is always with her. Also spoke with patient's daughter,HAYDEN, who is her next of kin and her medical prior of [phone]. There wanted to respect their mother's wishes and make her a full code at this time. She does realize that her mother is very ill and is probably not going to survive this hospitalization. She is hoping she does get better. Unfortunately, she remains severely acidotic and all multiple vasopressor support. Will keep her daughter updated on her current clinical status. Continue with broad-spectrum antibiotic coverage. Prognosis is very poor. Review of Systems is unable to be obtained Physical Examination - Vital Signs Temperature: 98.5 F Blood Pressure: 65/35 Pulse: 119 Respirations: 24 Pulse Ox (%): 100 - Physical Exam General: Other (Intubated and sedated) Respiratory: Other (Basilar crackles) Cardiovascular: Other (Tachycardic) Assessment & Plan - Problems (Diagnosis) (1) End stage liver disease Status: Acute (2) Septic shock Status: Acute (3) High anion gap metabolic acidosis Status: Acute (4) Hypoalbuminemia Status: Acute (5) Lactic acidosis Status: Acute - Plan Plan: 1. Broad-spectrum antibiotic coverage 2. Vasopressor support 3. Mechanical ventilation 4. GI consultation along with critical care consultation 5. Continue monitoring labs closely 6. Patient prognosis is very poor. She is not responding well to treatment. Increasing vasopressor support and hydration as necessary 7. GI and DVT prophylaxis Critical care time spent on patient care was 60 minutes - Advance Directives Does patient have a Living Will: No Does patient have a Durable POA for Healthcare: No Critical Care: Yes Time Spent Managing PTS Care (In Minutes): 60
[2021-05-11] MEDS ORDERED: CALCIUM CL 10% 13.6 MEQ in NA CHLORIDE 0.9% 100 ML IV ONE (17:28)
[2021-05-11] MEDS ORDERED: Caclcium Chloride 10% INJ SYR IV ONE ×3 (18:00→22:26)
[2021-05-11] MEDS ORDERED: NOREPINEPHRINE 8 MG in Dextrose 5%-Water 500 ML IV PRN (18:00)
[2021-05-11] MEDS ORDERED: Phenylephrine HCl 10 MG/ML 1 ML VIAL ONE (20:03)
[2021-05-11] MEDS ORDERED: D5W 250 ML IV ONE (20:04)
[2021-05-11] MEDS ORDERED: NA CHLORIDE 0.9% 200 ML ONE (21:01)
[2021-05-11] MEDS ORDERED: ATROPINE SULF 1 MG/10 ML SYR IV ONE (22:26)
[2021-05-11] MEDS ORDERED: EPINEPHrine 1 MG/10 ML SYR IV ONE (22:26)
[2021-05-12] MEDS ORDERED: VANCOMYCIN 1.25 GM in NA CHLORIDE 0.9% 250 ML IVPB SCH (03:00)
--- NOTE | 2021-05-12 12:40 | EKG ---
Test Date: 2021-05-10 Test Time: 23:20:58 Dredge Hand: TISH MEASUREMENT RESULTS: Intervals: Rate: 147 NV: 122 QRSD: 74 QT: 290 QTc: 453 [place]: P: 57 NV: 122 QRS: 33 T: 50 INTERPRETIVE STATEMENTS: Sinus tachycardia Low voltage QRS Borderline ECG Compared to ECG 05/10/2021 04:32:37 Myocardial infarct finding no longer present Electronically Signed On 05-12-21 12:37:45 CDT by Josué Park
--- NOTE | 2021-05-12 12:41 | EKG ---
Test Date: 2021-05-10 Test Time: 04:32:37 Compliance Spec: DARREL MEASUREMENT RESULTS: Intervals: Rate: 120 MI: 130 QRSD: 74 QT: 338 QTc: 477 [place]: P: 72 MI: 130 QRS: 64 T: 51 INTERPRETIVE STATEMENTS: Sinus tachycardia Low voltage QRS Cannot rule out Anterior infarct, age undetermined Abnormal ECG Compared to ECG 05/06/2021 01:16:49 Low QRS voltage now present Myocardial infarct finding now present Sinus rhythm no longer present Electronically Signed On 05-12-21 12:37:51 CDT by Josué Park
[2021-05-18 11:49] VITALS: BP 65/35; TEMP 98.5
--- NOTE | 2021-05-18 11:52 | P.DS ---
Discharge Date: 05/11/21 Primary Care Provider: None Disposition: Reason for Admission: septic shock - Problems (1) End stage liver disease Status: Acute (2) Septic shock Status: Acute (3) High anion gap metabolic acidosis Status: Acute (4) Hypoalbuminemia Status: Acute (5) Lactic acidosis Status: Acute Brief History of Present Illness: Most of the information came from the significant other and ER physician 51-year-old female with history of advanced chronic cirrhosis, GERD with hiatal hernia/gastric varices, anemia of chronic disease, and multiple admissions for hepatic encephalopathy. Patient presented with abdominal pain. Patient recently hospitalized for hepatic encephalopathy. Significant other reports patient had abdominal pain last night. This persisted. No significant nausea or vomiting noted. He also reports that the patient had difficulty urinating. He has noted increasing edema to the lower extremities and abdomen. She has reported pain to the lower extremities as well. He reports that the patient had a mild fever. He reports patient is taking her medications but still not able to afford Xifaxan. In the ER patient was evaluated. Vital signs stable. Lab shows white count 3.8 , hemoglobin 7.8 with a platelet count of 52. Sodium 141, potassium 3.4. BUN of 24, creatinine 1.74 with a GFR of 31. Glucose initially 42 now up to 148. Lactic acid abnormal at 6.1. Procalcitonin elevated at 10.8. Calcium 6.9. Ammonia level 43. INR elevated at 2.37. Total bilirubin 4.4, direct bilirubin 2.5. AST 52. Troponin unremarkable. CT scan shows bilateral pleural effusions, prominent ascites, advanced liver cirrhosis, moderate subcutaneous anasarca. Enteritis and bowel wall edema noted. Chest x-ray showed pleural effusions right greater than left. Underlying atelectasis also identified. Patient was given 1 L bolus in the emergency room. Antibiotics initiated included Levaquin, Flagyl and vancomycin. I was asked to evaluate patient. After my evaluation it was determined that the patient required ICU level care. We did not have any available beds. Transfer for higher level of care initiated. No beds available at other facilities. Patient will remain in the ER for ICU care. Hospital Course: Patient has done poorly during hospital stay. Patient did not improve even after aggressive intervention. Patient had prolonged cirrhosis with numerous hospitalizations for hepatic encephalopathy. She really never was able to comply with her treatment. Unfortunately L[place] this evening on May 11 2021 @ 2227. Her cause of with septic shock with alcoholic liver cirrhosis. Home Medications: Furosemide [Lasix*] 40 mg PO BID #60 tab 02/20/21 Lactulose [Cephulac*] 45 ml PO TID #4000 ml 03/28/21 Pantoprazole [Protonix Tab*] 40 mg PO Q12H #60 tab 03/28/21 Spironolactone [Aldactone*] 50 mg PO DAILY #60 tab 04/17/21 Physician Discharge Instructions: Patient in body was released to [facility] Followup: NONE,NONE [Primary Care Provider] - Time spent managing pt's care (in minutes): 35
== END 2021-05-11 22:27 | disposition expired | DRG 871 ==
LOC: ER 01:04 → ERHOLD 08:45
PROVIDERS: ADMIT Family Medicine; ATTEND Family Medicine
PROC: 5A1945Z Respiratory Ventilation, 24-96 Consecutive Hours (ICD-10-PCS; principal; 2021-05-10)
PROC: 0BH17EZ Insertion of Endotracheal Airway into Trachea, Via Natural or Artificial Opening (ICD-10-PCS; 2021-05-10)
PROC: 30233R1 Transfusion of Nonautologous Platelets into Peripheral Vein, Percutaneous Approach (ICD-10-PCS; 2021-05-11)
PROC: 30233N1 Transfusion of Nonautologous Red Blood Cells into Peripheral Vein, Percutaneous Approach (ICD-10-PCS; 2021-05-11)
DX: A41.9 Sepsis, unspecified organism (principal); K65.2 Spontaneous bacterial peritonitis; R65.21 Severe sepsis with septic shock; E43 Unspecified severe protein-calorie malnutrition; J96.00 Acute respiratory failure, unspecified whether with hypoxia or hypercapnia; G92 Toxic encephalopathy; N17.9 Acute kidney failure, unspecified; N30.00 Acute cystitis without hematuria; J90 Pleural effusion, not elsewhere classified; D61.818 Other pancytopenia; E87.2 Acidosis; K70.31 Alcoholic cirrhosis of liver with ascites; K21.9 Gastro-esophageal reflux disease without esophagitis; K44.9 Diaphragmatic hernia without obstruction or gangrene; E87.6 Hypokalemia; E83.42 Hypomagnesemia; D63.8 Anemia in other chronic diseases classified elsewhere; K72.90 Hepatic failure, unspecified without coma; E16.2 Hypoglycemia, unspecified; E88.09 Other disorders of plasma-protein metabolism, not elsewhere classified; E83.51 Hypocalcemia; J44.9 Chronic obstructive pulmonary disease, unspecified; F17.200 Nicotine dependence, unspecified, uncomplicated; Z88.8 Allergy status to other drugs, medicaments and biological substances; Z79.899 Other long term (current) drug therapy; Z85.038 Personal history of other malignant neoplasm of large intestine; Z59.0 Homelessness; Z88.0 Allergy status to penicillin; Z91.14 Patient's other noncompliance with medication regimen; Z91.19 Patient's noncompliance with other medical treatment and regimen; Z68.23 Body mass index [BMI] 23.0-23.9, adult; Z20.822 Contact with and (suspected) exposure to COVID-19
CPT/HCPCS: 31500; 36415; 51702; 71045; 74176; 80048; 80053; 80076; 81003; 81015; 82140; 82150; 82550; 82553; 82805; 82947; 83605; 83690; 83735; 83880; 84100; 84145; 84439; 84443; 84484; 85025; 85049; 85610; 85730; 86850; 86900; 86901; 87040; 87077; 87086; 87088; 87186; 87205; 92950; 93005; 94002; 94003; 94640; 99285; C9113; J0153; J0171; J0330; J1265; J1447; J1630; J1720; J1940; J2185; J2250; J2270; J2370; J2550; J2704; J3010; J3370; J3411; J3475; J3480; J7030; J7040; J7042; J7050; J7060; J7605; J7799; P9016; P9035; P9045; P9047; U0003